=== PATIENT | female | born 2000 | race Caucasian/White ===

== ENCOUNTER 2023-01-23 14:40 | Outpatient (OUT) | payer OTHER, SELFPAY ==
--- NOTE | 2023-01-23 14:58 | US_ITS ---
[address] [address] Patient Name: ROQUE PIERSON MRN: [id number] date: 2000 Sex: F Assigned Patient Location: US Current Patient Location: US Accession/Order Number: [id number] Exam Date: 01/23/2023 14:56 Report Date: 01/23/2023 16:06 At the request of: REKHA JANSEN Procedure: US OB growth EXAMINATION: US OB growth HISTORY: size inconsistent with dates O26.849 COMPARISON: Ultrasound anatomy 12/05/2022 FINDINGS: Heart Rate: 128.0 bpm Number: 1.0 Position: BREECH Amniotic Fluid Volume: 17.0 cm Maximum Vertical Pocket: 5.7 cm BIOMETRY: BPD: 7.7 cm cm; 30 weeks 5 days; >97% HC: 28.0 cmcm; 30 weeks 4 days; 92% AC: 23.8 cm cm; 28 weeks 1 days; 46% FL: 5.3 cm cm; 28 weeks 0 days; 35% EFW: 1236.4 grams; 57% FL/AC: 22.1 FL/BPD: 68.6 HC/AC: 1.2 GESTATIONAL AGE: Age by EDC: 28 weeks 0 days [place] by EDC: 04/17/2023 Age by US: 29 weeks 3 days [place] by US: 04/07/2023 IMPRESSION: 1. Single live intrauterine with growth detailed above. 2. Biparietal diameter is greater than 97th percentile. Electronically authenticated by: JULIUS RICKS Date: 01/23/2023 16:06
== END 2023-01-23 14:41 ==
LOC: LAB 14:46 → US 14:52
PROVIDERS: PCP Obstetrics & Gynecology; Visit Provider Obstetrics & Gynecology
DX: O26.843 Uterine size-date discrepancy, third trimester (principal); Z3A.30 30 weeks gestation of pregnancy
CPT/HCPCS: 76816

== ENCOUNTER 2023-03-20 20:24 | Outpatient (REF) | payer OTHER, SELFPAY | END 2023-03-20 20:25 | disposition home or self-care (01) | LOC: LAB 20:24 | PROVIDERS: PCP Obstetrics & Gynecology; Visit Provider Obstetrics & Gynecology | DX: Z34.93 Encounter for supervision of normal pregnancy, unspecified, third trimester (principal) | CPT/HCPCS: 87081 ==

== ENCOUNTER 2023-04-15 23:33 | Inpatient (IN) | payer OTHER, SELFPAY ==
[2023-04-16] VITALS (89 sets, daily range): BP systolic 86–136; BP diastolic 46–84; PULSE 52–121; RESP 16–18; TEMP 36.6–36.8
[2023-04-16 00:09] LABS: Hematocrit 33.9 % (36.0-48.0); Hemoglobin 11.6 g/dL (12.0-16.0); Mean Corpuscular HGB Conc 34.2 g/dL (29.9-35.2); Mean Corpuscular Hemoglobin 28.3 pg (26.7-34.0); Mean Corpuscular Volume 82.7 fL (81.0-99.0); Mean Platelet Volume 10.7 fL (9.5-13.5); Platelet Count 241 10^3/uL (150-450); Red Cell Distribution Width 12.8 % (11.0-15.0); White Blood Count 10.3 10^3/uL (4.0-11.0)
[2023-04-16 00:23] LABS: Amphetamine Screen Urine NEGATIVE (NEGATIVE); Barbiturates Screen Urine NEGATIVE (NEGATIVE); Benzodiazepines Screen Urine NEGATIVE (NEGATIVE); Buprenorphine Screen Urine NEGATIVE (NEGATIVE); Cannabinoid Screen Urine NEGATIVE (NEGATIVE); Cocaine Screen Urine NEGATIVE (NEGATIVE); Methadone Screen Urine NEGATIVE (NEGATIVE); Methamphetamines Screen Urine NEGATIVE (NEGATIVE); Opiate Screen Urine NEGATIVE (NEGATIVE); Oxycodone Screen Urine NEGATIVE (NEGATIVE); Phencyclidine Screen Urine NEGATIVE (NEGATIVE); Tricyclic Antidepressant Urine NEGATIVE (NEGATIVE)
[2023-04-16] MEDS: OXYTOCIN/0.9 % SODIUM CHLORIDE 10 UNITS/500 ML PLAST..BAG 6 UNIT IV ×2 (01:03→14:51)
[2023-04-16] MEDS: 0.9 % SODIUM CHLORIDE 1,000 ML 125 ML IV ×5 (01:05→15:25)
[2023-04-16] MEDS: ROPIVACAINE HCL/PF 400 MG/200 ML PREMIX 10 MG EPIDURAL (11:18)
[2023-04-16] MEDS: FENTANYL CITRATE/PF 100 MCG/2 ML VIAL EPIDURAL ×2 (11:19→11:20)
[2023-04-16] MEDS: LIDOCAINE HCL 2% PF 100 MG/5 ML VIAL INJ (11:20)
--- NOTE | 2023-04-16 18:25 | PM.OBPRCVD ---
Procedure Intrapartal events: None Induction method: per pitocin protocol Delivery augmentation: rupture of membranes and pitocin Delivery monitor: external FHT and external uterine Route of delivery: Episiotomy Description: right mediolateral Laceration description: perineal - 2nd degree Delivery repair: Vicryl Estimated blood loss (mL): 300 Anesthesia type: Epidural Disposition: floor Delivery date: 04/16/23 Gender: male presentation: vertex Placental delivery description: Spontaneous and Normal Configuration cord description: 3 Vessels
[2023-04-16] MEDS: LIDOCAINE HCL 1% 200 MG/20 ML MDV INJ (19:13)
[2023-04-16] MEDS: GLYCERIN/WITCH HAZEL PADS 1 PAD TOPICAL (21:59)
[2023-04-16] MEDS: IBUPROFEN 600 MG TABLET PO (21:59)
[2023-04-17] VITALS (8 sets, daily range): BP systolic 117–135; BP diastolic 59–72; PULSE 74–131; RESP 14–16; TEMP 36.6–37.1
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
[2023-04-17 05:14] LABS: Basophils Percent Auto 0.2 % (0.2-2.0); Eosinophils Percent Auto 0.3 % (0.9-7.0); Hemoglobin 9.4 g/dL (12.0-16.0); Immature Granulocytes Abs Auto 0.04 10^3/uL (0.00-0.03); Immature Granulocytes Pct Auto 0.3 % (0.0-0.5); Lymphocytes Absolute Auto 1.9 10^3/uL (1.2-3.8); Lymphocytes Percent Auto 14.9 % (20.5-60.0); Mean Corpuscular HGB Conc 32.4 g/dL (29.9-35.2); Mean Corpuscular Hemoglobin 28.1 pg (26.7-34.0); Mean Corpuscular Volume 86.6 fL (81.0-99.0); Mean Platelet Volume 10.5 fL (9.5-13.5); Monocytes Percent Auto 7.9 % (1.7-12.0); Neutrophils Absolute Auto 9.7 10^3/uL (1.4-6.5); Neutrophils Percent Auto 76.4 % (43.0-75.0); Platelet Count 182 10^3/uL (150-450); Red Blood Count 3.35 10^6/uL (4.20-5.40); Red Cell Distribution Width 13.2 % (11.0-15.0); White Blood Count 12.7 10^3/uL (4.0-11.0)
--- NOTE | 2023-04-17 07:06 | PC.NURSE ---
Reported off to Barbra Orlando RN
[2023-04-17] MEDS: IBUPROFEN 600 MG TABLET PO ×2 (09:12→16:44)
[2023-04-17] MEDS: DOCUSATE SODIUM 100 MG CAPSULE PO (09:13)
--- NOTE | 2023-04-17 11:06 | SWNOTE1 ---
SW consulted for medical/financial assistance for pt. SW spoke with nursing prior to going in, SW to make sure pt has adequate resources. Pt lives at home with her boyfriend and they have been together for 3 years. Her boyfriend is not the father of the baby, but the father of the baby is not involved. Pt voiced her boyfriend, Jack, will be the father figure for baby. SW asked pt about her support system. She stated she has 2 friends that just had baby boys a few months ago and she also has 2 step sisters, who are younger, that are supportive. Pt also voiced her grandma is a good support as well as Jack. Pt stated her grandma has spoke with her about post- depression and the signs. Pt did express she will reach out to her support if/when she needs to. Pt's mother is at [facility], she suffered a major stroke back in 2017. Pt did receive a phone call from [facility] yesterday while she was in labor and she will call them back today to get an appointment scheduled. Pt does have everything she needs at home for baby such as crib,car seat, clothing, etc. Pt is attempting breast feeding and baby is latching. Pt and boyfriend do have a car for transportation and have their license. She does not work and will be at home with baby, boyfriend does work to support family. Pt voiced she is going to take baby to Dr. Galaviz as that is her primary care physician. SW and pt spoke about getting her baby on her insurance. SW expressed to pt to call her insurance (number on the back of the card) to make sure baby is added. SW let pt know if she does need assistance to ask SW to come back. SW to look for more resources for pt and bring her back any resources that may be beneficial.
--- NOTE | 2023-04-17 11:39 | SWNOTE1 ---
SW did provide pt with [facility] support groups for new moms and a program that has a visiting nurse for newborns up until 8 weeks.
--- NOTE | 2023-04-17 11:47 | SWNOTE1 ---
Pt was aware of the resources SW spoke with her about in [facility], but did take the paperwork.
--- NOTE | 2023-04-17 12:25 | PC.NURSE ---
1130 REVIEWED TEACHING VIDEOS AND NEED TO CALL AND DECIDE ABOUT BABY FOLLOW UP PHYSICIAN, COAL CAGER IN TO ASSESS
--- NOTE | 2023-04-17 13:08 | P.OBPN_ITS ---
OB - PN: Subj Subjective Patient comments: no complaints [place] status: doing well Exam Constitutional Vital Signs, click to edit/add: Last Vital Signs Temp 97.8 F 04/17/23 08:35 Pulse 74 04/17/23 09:00 Resp 14 04/17/23 08:35 BP 134/72 04/17/23 09:00 O2 Del Method Room Air 04/16/23 13:58 Documenting provider has reviewed patient's vital signs: yes Common normals: no apparent distress Respiratory Common normals: normal respiratory effort and clear to auscultation bilaterally Cardio Common normals: regular rate and regular rhythm GI Common normals: Normal to inspection, nondistended, normoactive bowel sounds present Common normals: no CVA tenderness Extremity Common normals: normal to inspection, no clubbing, cyanosis or edema and no calf tenderness Results Labs Labs: Short CBC 04/17/23 Range/Units 05:00 WBC 12.7 H (4.0-11.0) 10^3/uL Hgb 9.4 L (12.0-16.0) g/dL Hct 29.0 L (36.0-48.0) % Plt Count 182 (150-450) 10^3/uL OB - PN: A/P Plan - Vaginal Delivery day: 1 Plan: routine care Time Spent with Patient Time: Total time spent is greater than 50% in coordination of care (as documented) at patient's floor/unit and/or counseling patient: Total time spent with greater than 50% in coordination of care (as documented) at patient's floor/unit and/or counseling patient: less than 15 minutes
--- NOTE | 2023-04-17 16:59 | PC.NURSE ---
reviewed teaching videos with pt who has watched them all and has no questions, reviewed need to call pediatric provider for visit (has chosen DR Galaviz), reviewed teaching folder and contents of all and need to review same overnight, also discussed feeding plan with baby regarding beginning to pump after 24 hours, increasing skin to skin time and seeing business sales consultant tomorrow
[2023-04-18 00:30] VITALS: BP 113/71; PULSE 70
--- NOTE | 2023-04-18 02:10 | PC.NURSE ---
Pt calls out for nurse. Pt is tearful upon RN entering room; states she feels like her is still hungry after receiving pumped breast milk and won't quit crying. RN tells pt has only lost 4.5% of weight which is within normal range. RN then educates on other reasons for infant fussiness (diaper change, upset stomach, need to burp, etc). Pt still requests supplemental formula at this time.
--- NOTE | 2023-04-18 07:40 | W.PC.ACHO ---
Registration Status: ADM IN Primary Language: [place] Preferred Language: [place] Active Medications Generic Name Dose Route Start Last Admin Trade Name Freq PRN Reason Stop Dose Admin Acetaminophen 650 mg 04/16/23 18:20 Acetaminophen 325 Mg Tablet PO Q6H PRN Mild Pain Al Hydroxide/Mg Hydroxide 2,400 mg 04/16/23 18:20 Magnesium Hydroxide 2,400 Mg/10 Ml Oral.Susp PO Q6H PRN Dyspepsia Benzocaine/Menthol 1 applic 04/16/23 18:20 04/16/23 22:00 Benzocaine/Menthol 85 Gram Bottle TOPICAL 1 applic Q2H PRN Administration Pain Diphtheria/Pertussis/Tetanus Vacc 0.5 ml 04/18/23 09:00 Adacel Diph,Pertuss(Acell),Tet Vac/Pf 0.5 Ml Adult Syringe IM 04/18/23 09:01 .ONCE ONE Docusate Sodium 100 mg 04/17/23 09:00 04/17/23 09:13 Docusate Sodium 100 Mg Capsule PO 100 mg BID KADY Administration Sodium Chloride 1,000 mls @ 125 mls/hr 04/16/23 07:45 04/16/23 15:25 Sodium Chloride 0.9% 1,000 Ml IV 125 mls/hr Q8H KADY Administration Ibuprofen 600 mg 04/16/23 18:20 04/17/23 16:44 Ibuprofen 600 Mg Tablet PO 600 mg Q6H PRN Administration Moderate Pain Measles/Mumps/Rubella Vaccine Live 0.5 ml 04/18/23 09:00 Measles,Mumps,Rubella Vacc/Pf 0.5 Ml Vial SQ 04/18/23 09:01 .ONCE ONE Ondansetron HCl 4 mg 04/15/23 23:36 Ondansetron 4 Mg Rapdis Tablet SL Q6H PRN Nausea And Vomiting Ondansetron HCl 4 mg 04/15/23 23:36 Ondansetron Pf 4 Mg/2 Ml Vial IV Q6H PRN Nausea And Vomiting Senna 17.2 mg 04/16/23 20:00 Sennosides 8.6 Mg Tablet PO QHS PRN Constipation Simethicone 80 mg 04/16/23 18:20 Simethicone 80 Mg Tab.Chew PO QID PRN Abdominal Distention Temazepam 15 mg 04/16/23 18:20 Temazepam 15 Mg Capsule PO QHS PRN Sleep Witch Mara/Glycerin 1 pad 04/16/23 18:20 04/16/23 21:59 Glycerin/Witch Mara Pads TOPICAL 1 pad Q2H PRN Administration Pain
[2023-04-18 09:32] VITALS: BP 133/67; PULSE 82
[2023-04-18 09:33] VITALS: TEMP 36.9
[2023-04-18] MEDS: IBUPROFEN 600 MG TABLET PO (09:33)
[2023-04-18] MEDS: DOCUSATE SODIUM 100 MG CAPSULE PO (09:34)
--- NOTE | 2023-04-18 10:51 | PM.OBPN ---
OB - PN: Subj Subjective Patient comments: no complaints [place] status: doing well Exam Constitutional Vital Signs, click to edit/add: Last Vital Signs Temp 98.4 F 04/18/23 09:33 Pulse 82 04/18/23 09:32 Resp 16 04/17/23 16:51 BP 133/67 04/18/23 09:32 O2 Del Method Room Air 04/16/23 13:58 Documenting provider has reviewed patient's vital signs: yes Common normals: no apparent distress Respiratory Common normals: normal respiratory effort and clear to auscultation bilaterally Cardio Common normals: regular rate and regular rhythm GI Common normals: Normal to inspection, nondistended, normoactive bowel sounds present Extremity Common normals: no clubbing, cyanosis or edema and no calf tenderness OB - PN: A/P Plan - Vaginal Delivery day: 2 Plan: routine care, discharge home and follow up 6 weeks Time Spent with Patient Time: Total time spent is greater than 50% in coordination of care (as documented) at patient's floor/unit and/or counseling patient: Total time spent with greater than 50% in coordination of care (as documented) at patient's floor/unit and/or counseling patient: less than 15 minutes
[2023-04-18 11:48] VITALS: RESP 16; TEMP 36.7
[2023-04-18] MEDS: ADACEL DIPH,PERTUSS(ACELL),TET VAC/PF 0.5 ML ADULT SYRINGE IM (16:42)
== END 2023-04-18 18:15 | disposition home or self-care (01) | DRG 560 ==
PROVIDERS: Admitting Provider Obstetrics & Gynecology; PCP Obstetrics & Gynecology; Visit Provider Obstetrics & Gynecology
DX: O70.1 Second degree perineal laceration during delivery (principal); Z3A.00 Weeks of gestation of pregnancy not specified; Z37.0 Single live birth; Z79.899 Other long term (current) drug therapy; Z98.890 Other specified postprocedural states; Z83.3 Family history of diabetes mellitus
CPT/HCPCS: 36415; 59050; 59410; 80307; 85025; 85027; 86850; 86900; 86901; 90471; 90715; 96365; 96366; 96376

== ENCOUNTER 2023-04-21 08:20 | Outpatient (OUT) | payer OTHER, SELFPAY ==
[2023-04-21 15:14] VITALS: BP 120/73; PULSE 74; RESP 16; TEMP 36.9; O2SAT 96
--- NOTE | 2023-04-21 15:19 | PC.NURSE ---
Pt vague historian for infant feeding interval, amounts and for outputs. well cared for appearance, clean and appropriately dressed. [facility] has very limited support system. Mother in [facility] after severe stroke at 37, father passed, FOB not involved. States her current boyfriend is very supportive and helpful with the baby. Helps with feedings and diaper changes. Pt states I feel like I am depressed denies feeling same during . Not on medications at this time. Denies thoughts or actions of self harm, or suicidal ideas. Denies thought of harming infant. Offered for pt to talk with Social service department, pt declined. States I will be ok, just stressful at times. This entry writer attempts to call Dr Crockett office 3 times [phone], [phone] and message left at [phone] with Dionne WHITAKER for Dr Crockett to make contact with pt and schedule her to be seen. Pt advised to call office for follow up this week. [facility] will do so. Given sample routine for exclusively pumping for first 12 weeks. States will follow to maintain her milk supply. Aware to call for questions or concerns. Verbalized understanding of review, recommendations and contact/follow up
== END 2023-04-21 10:00 | disposition home or self-care (01) ==
PROVIDERS: PCP Family Medicine; Visit Provider Obstetrics & Gynecology
DX: Z39.2 Encounter for routine postpartum follow-up (principal)

== ENCOUNTER 2023-09-16 12:17 | Outpatient (OUT) | payer OTHER, SELFPAY ==
[2023-09-16 13:25] LABS: HCG Quantitative 130 mIU/mL
== END 2023-09-16 12:18 | disposition home or self-care (01) ==
LOC: LAB 12:18
PROVIDERS: PCP Family Medicine; Visit Provider Obstetrics & Gynecology
DX: N92.6 Irregular menstruation, unspecified (principal)
CPT/HCPCS: 36415; 84702

== ENCOUNTER 2023-09-19 11:50 | Outpatient (RCR) | payer OTHER, SELFPAY ==
[2023-09-19 12:27] LABS: HCG Quantitative 463 mIU/mL
== END 2023-09-24 17:26 | disposition home or self-care (01) ==
LOC: LAB 11:50
PROVIDERS: PCP Family Medicine; Visit Provider Obstetrics & Gynecology
DX: N92.6 Irregular menstruation, unspecified (principal)
CPT/HCPCS: 36415; 84702

== ENCOUNTER 2023-10-16 12:07 | Outpatient (OUT) | payer OTHER, SELFPAY ==
--- NOTE | 2023-10-16 12:10 | US_ITS ---
[address] [address] Patient Name: ROQUE PIERSON MRN: [id number] date: 2000 Sex: F Assigned Patient Location: [facility] Current Patient Location: [facility] Accession/Order Number: [id number] Exam Date: 10/16/2023 12:17 Report Date: 10/16/2023 14:43 At the request of: REKHA JANSEN Procedure: US OB transvaginal EXAMINATION: US OB transvaginal HISTORY: MISSED MENSES COMPARISON: No relevant comparison available. FINDINGS: GESTATIONAL SAC: Single gestational sac with 2 amniotic sacs YOLK SAC: Present x2 POLE: Present x2 CARDIAC: Present x2 UTERUS: Normal size and appearance. OVARIES: Right: Normal. Left: Not seen. CERVIX: 4.9 cm in length and closed. CUL-DE-SAC: Normal. OTHER: None. AGE BY LMP: 8 weeks 3 days [place] BY LMP: 05/24/2024 AGE BY US CRL: 8 weeks 1 day [place] BY US CRL: 05/26/2024 US/US OB transvaginal IMPRESSION: 1. Monochorionic diamniotic twin 8 weeks 1 day by today's ultrasound. Electronically authenticated by: JULIUS RICKS Date: 10/16/2023 14:43
== END 2023-10-16 12:08 | disposition home or self-care (01) ==
LOC: NOMS 12:08
PROVIDERS: PCP Family Medicine; Visit Provider Obstetrics & Gynecology
DX: O30.031 Twin pregnancy, monochorionic/diamniotic, first trimester (principal); Z3A.08 8 weeks gestation of pregnancy; N92.6 Irregular menstruation, unspecified
CPT/HCPCS: 76817

== ENCOUNTER 2023-10-30 10:11 | Outpatient (OUT) | payer OTHER, SELFPAY ==
--- OUTSIDE RECORDS SUMMARY | 2023-10-30 10:28 | XMS_ITS | CCD ---
Author Name Unknown Address [facility] [address] [place] [address] Organization [facility] Care Team Providers Care French Edge Operator Name Role Phone LIMANOE Unavailable Unavailable Delfin Urbano MD Primary Care Provider Delfin Urbano MD Primary Care Provider [phone] Delfin Urbano MD Primary Care Provider [phone] Delfin Urbano Primary Care Physician Delfin Urbano MD Primary Care Provider CHRISTY ., NOE Consulting Unavailable REQUEST, DR GALDINO LISTED Primary Care Unavaila ble CHRISTY ., NOE Attending Unavailable CHRISTY ., NOE Admitting Unavailable JUSTYNA ., DR DA SILVA Consulting Unavailable HOY ., DR BOGGS Primary Care Unavailable JUSTYNA ., DR DA SILVA Attending Unavailable JUSTYNA ., DR DA SILVA Admitting Unavailable CHRISTY ., NOE Consulting Unavailable YOLIE ., DR BOGGS Primary Care Unavailable CHRISTY ., NOE Attending Unavailable CHRISTY ., NOE Admitting Unavailable JUSTYNA ., DR DA SILVA Consulting Unavailable HOY ., DR BOGGS Primary Care Unavailable JUSTYNA ., DR DA SILVA Attending Unavailable JUSTYNA ., DR DA SILVA Admitting Unavailable HOY ., DR BOGGS Primary Care Unavailable JUSTYNA ., DR DA SILVA Attending Unavailable JUSTYNA ., DR DA SILVA Admitting Unavailable HOY ., DR BOGGS Primary Care Unavailable CHRISTY ., NOE Attending Unavailable CHRISTY ., NOE Admitting Unavailable JUSTYNA ., DR DA SILVA Consulting Unavailable HOY ., DR BOGGS Primary Care Unavailable JUSTYNA ., DR DA SILVA Attending Unavailable JUSTYNA ., DR DA SILVA Admitting Unavailable HOY ., DR BOGGS Consulting Unavailable HOY ., DR BOGGS Primary Care Unavailable HOY ., DR BOGGS Attending Unavailable HOY ., DR BOGGS Admitting Unavailable LAURA GONZALEZ Consulting Unavailable HOY ., DR BOGGS Primary Care Unavailable LAURA GONZALEZ Attending Unavailable LAURA GONZALEZ Admitting Unavailable JUSTYNA ., DR DA SILVA Consulting Unavailable HOY ., DR BOGGS Primary Care Unavailable JUSTYNA ., DR DA SILVA Attending Unavailable JUSTYNA ., DR DA SILVA Admitting Unavailable ALFRED BERGERON Unavailable HOY ., DR BOGGS Primary Care Unavailable JUSTYNA ., DR DA SILVA Attending Unavailable JUSTYNA ., DR DA SILVA Admitting Unavailable JUSTYNA ., DR DA SILVA Consulting Unavailable NGUYEN CHA Attending Unavailable HOY, DELFIN M Primary Care Unavailable MORGAN FALK Attending Unavailable HOY, DELFIN M Primary Care Unavailable TYRON GUEVARA Attending Unavailable HOY, DELFIN M Primary Care Unavailable HOY, DELFIN M Primary Care Unavailable CLAUDINE FLORES Attending Unavailable HOY, DELFIN M Primary Care Unavailable SUSU DEL RIO Attending Unavailable TYRON GUEVARA Attending Unavailable HOY, DELFIN M Primary Care Unavailable MORGAN FALK Attending Unavailable HOY, DELFIN M Primary Care Unavailable TYRON GUEVARA Referring Unavailable TYRON GUEVARA Unavailable HOY, DELFIN M Primary Care Unavailable NOE HARRISON Referring Unavailable HOY, DELFIN M Primary Care Unavailable HOY, DELFIN M Primary Care Unavailable NICK, TYRON Kellogg Attending Unavailable ANDREA MITCHELL Attending Unavailable HOY, DELFIN M Primary Care Unavailable MORGAN FALK Attending Unavailable HOY, DELFIN M Primary Care Unavailable HOY, DELFIN M Primary Care Unavailable Shawn Wilson Attending Unavailable Shawn Wilson Admitting Unavailable Kei Moore Attending Unavailable Alfredito Brennan Attending Unavailable Coleman Ludwig Attending Unavailable DO Sissy Shah Attending Unavailable Fercho Jaime Attending Unavailable DO Sissy Shah Attending Unavailable JULIUS CROCKETT Attending Unavailable Medications Current Medications Medication Drug Class(es) Dates Sig (Normalized) Sig (Original) Amoxicillin (4 sources) Penicillin-class Antibacterial Start: 11-25-2022 amoxicillin 500 mg, Refills(s) 0 Start Date: 11/25/22 Status: Ordered amoxicillin 875 mg / clavulanate 125 mg oral tablet (2 sources) Penicillin-class Antibacterial Start: 09-26-2022 End: 10-01-2022 take 1 tablet by mouth twice daily amoxicillin-clavul anate (AUGMENTIN) 875-125 MG per tablet Take 1 tablet by mouth 2 times daily for 5 days 10 tablet 0 09/26/2022 09/30/2022 Discontinued (LIST CLEANUP) brompheniramine maleate 0.4 mg/ml / dextromethorphan hydrobromide 2 mg/ml / pseudoephedrine hydrochloride 6 mg/ml oral solution (1 source) alpha-Adrenergic Agonist, Uncompetitive U-kdgijj-O-aspartat e Receptor Antagonist, Sigma-1 Agonist Start: 09-08-2023 End: 09-15-2023 take 10 mL by mouth four times daily for cough and congestion Bromfed DM oral syrup 10 mL, Oral, QID for cough and congestion for 7 day(s), 280 mL, Refill(s) 0, [facility], 175, cm, 09/08/23 11:11:00 EST, Height/Length Dosing, 79.5, kg, 09/08/23 11:11:00 EST, Weight Dosing Start Date: 09/08/23 Stop Date: 09/15/23 Status: Ordered cetirizine hydrochloride 5 mg oral tablet (3 sources) Histamine-1 Receptor Antagonist Start: 04-25-2016 take 5 mg by mouth once daily Zyrtec 5 mg, Oral, Daily, Refills(s) 0 Start Date: 04/25/16 Status: Ordered famotidine 20 mg oral tablet (3 sources) Histamine-2 Receptor Antagonist Start: 07-12-2022 take 1 tablet by mouth once daily Pepcid 20 mg Tab 20 mg = 1 tab(s), Oral, Daily, # 14 tab(s), Refills(s) 0 Start Date: 07/12/22 Status: Ordered fluconazole 50 mg oral tablet (1 source) Azole Antifungal Start: 11-25-2022 End: 12-02-2022 take 1 tablet by mouth once daily fluconazole 50 mg oral tablet 50 mg = 1 tab(s), Oral, Daily, X 7 day(s), # 7 tab(s), Refills(s) 0 Start Date: 11/25/22 Stop Date: 12/02/22 Status: Ordered fluticasone propionate 0.05 mg/actuat metered dose nasal spray (3 sources) Corticosteroid Start: 04-25-2016 Childrens Flonase 50 mcg/inh nasal spray 1 spray(s), Nasal, Daily, Refill(s) 0 Start Date: 04/25/16 Status: Ordered metoclopramide 10 mg oral tablet (7 sources) Dopamine-2 Receptor Antagonist Start: 09-04-2022 End: 09-30-2022 take 1 tablet by mouth every six hours Reglan 10 mg Tab 10 mg = 1 tab(s), Oral, q6hr, # 14 tab(s), Refills(s) 0, Pharmacy: [id number], 173, cm, 09/08/22 1:24:00 EST, Height/Length Dosing, 72.1, kg, 09/08/22 1:24:00 EST, Weight Dosing Start Date: 09/08/22 Status: Ordered ondansetron 4 mg disintegrating oral tablet (18 sources) Serotonin-3 Receptor Antagonist Start: 09-30-2022 take 1 tablet by mouth every eight hours as needed for nausea ondansetron (ZOFRAN-ODT) 4 MG disintegrating tablet Take 1 tablet by mouth every 8 hours as needed for Nausea or Vomiting 10 tablet 0 09/30/2022 Active Start: 09-30-2022 End: 09-30-2022 ondansetron (ZOFRAN-ODT) disintegrating tablet 4 mg Start: 09-04-2022 End: 09-04-2022 ondansetron (ZOFRAN) injecti on 4 mg Start: 09-04-2022 take 1 tablet by fernando th every six hours as needed for nausea ondansetron (ZOFRAN-ODT) 4 MG disintegrating tablet Take 1 tablet by mouth every 6 hours as needed for Nausea or Vomiting 15 tablet 0 09/04/2022 Active Start: 08-26-2022 take 1 tablet by fernando th every six hours as needed for nausea Zofran 4 mg Tab 4 mg = 1 tab(s), Oral, q6hr, PRN Nausea, Take one tab by mouth every six hours as needed for nausea, # 10 tab(s), Refills(s) 0 Start Date: 08/26/22 Status: Ordered Start: 07-12-2022 take 1 tablet by fernando th every eight hours as needed ondansetron (ZOFRAN) 4 MG tablet Take 1 tablet by mouth every 8 hours as needed 0 07/12/2022 Active Start: 04-18-2022 End: 04-18-2022 ondansetron (ZOFRAN) injecti on 4 mg Start: 03-21-2022 End: 04-18-2022 take 1 tablet by mouth every four hours as needed for nausea ondansetron (ZOFRAN ODT) 4 MG disintegrating tablet Take 1 tablet by mouth every 4 hours as needed for Nausea or Vomiting 15 tablet 0 03/21/2022 04/18/2022 Discontinued (LIST CLEANUP) Start: 02-08-2022 End: 02-08-2022 ondansetron (ZOFRAN) injecti on 4 mg Start: 02-08-2022 End: 02-13-2022 take 1 tablet by mouth every eight hours as needed for nausea ondansetron (ZOFRAN) 4 MG tablet Take 1 tablet by mouth every 8 hours as needed for Nausea or Vomiting 12 tablet 0 02/08/2022 02/13/2022 Active penicillin v potassium 500 mg oral tablet (1 source) Start: 02-27-2022 End: 03-09-2022 take 1 tablet by mouth four times daily penicillin v potassium (VEETID) 500 MG tablet Take 1 tablet by mouth 4 times daily for 10 days 40 tablet 0 02/27/2022 03/09/2022 Active Vit-Fe Fumarate-FA ( VITAMINS PO) (4 sources) Vit-Fe Fumarate-FA ( VITAMINS PO) Take 2 gums by mouth daily 0 Active promethazine hydrochloride 12.5 mg oral tablet (10 sources) Phenothiazine Start: 09-02-2022 End: 09-30-2022 take 1 tablet by mouth every eight hours as needed for nausea promethazine 12.5 mg oral tablet 12.5 mg = 1 tab(s), Oral, q8hr, PRN as needed for nausea/vomiting, # 12 tab(s), Refills(s) 0 Start Date: 09/02/22 Status: Ordered Start: 08-10-2022 End: 08-17-2022 take 1 tablet by mouth every six hours as needed for nausea promethazine (PHENERGAN) 25 MG tablet Take 1 tablet by mouth every 6 hours as needed for Nausea 20 tablet 0 08/10/2022 08/17/2022 Active Start: 08-10-2022 End: 08-10-2022 take 1 dose by mouth once 25 mg, Oral, ONCE, 1 dose, O n 08/10/22 at 0215 Send home with pt take 1 tablet by fernando th every six hours as needed for nausea promethazine (PHENERGAN) 12.5 MG tablet Take 12.5 mg by mouth every 6 hours as needed for Nausea 0 Active sucralfate 1000 mg oral tablet (1 source) Aluminum Complex Start: 07-12-2022 End: 07-19-2022 take 1 tablet by mouth four times daily Carafate 1 gram Tab 1 gm = 1 tab(s), Oral, QID, X 7 day(s), # 28 tab(s), Refills(s) 0 Start Date: 07/12/22 Stop Date: 07/19/22 Status: Ordered Zofran ODT 4 mg Tab-Dis (5 sources) Start: 08-29-2022 take 1 tablet by mouth every six hours as needed for nausea Zofran ODT 4 mg Tab-Dis 4 mg = 1 tab(s), Oral, q6hr, PRN Nausea/Vomiting, # 12 tab(s), Refills(s) 0 Start Date: 08/29/22 Status: Ordered Completed/Discontinued Medications Medication Drug Class(es) Dates Sig (Normalized) Sig (Original) acetaminophen 325 mg / oxyCODONE hydrochloride 5 mg oral tablet (1 source) Opioid Agonist Start: 07-01-2022 End: 07-01-2022 oxyCODONE-acetamin ophen (PERCOCET) 5-325 MG per tablet 1 tablet Start: 07-01-2022 End: 07-01-2022 oxyCODONE-acetaminophen (PER COCET) 5-325 MG per tablet 1 tablet benzocaine 0.2 mg/mg oral gel (1 source) Standardized Chemical Allergen Start: 02-27-2022 End: 02-27-2022 benzocaine (ORAJEL) 20 % mucosal gel 1 ml diphenhydrAMINE hydrochloride 50 mg/ml cartridge (1 source) Histamine-1 Receptor Antagonist Start: 08-24-2022 End: 08-24-2022 diphenhydrAMINE (BENADRYL) injection 25 mg famotidine (PEPCID) 20 mg in sodium chloride (PF) 10 mL injection (1 source) Start: 02-08-2022 End: 02-08-2022 famotidine (PEPCID) 20 mg in sodium chloride (PF) 10 mL injection 1 ml ketorolac tromethamine 30 mg/ml cartridge (2 sources) Nonsteroidal Anti-inflammatory Drug, Cyclooxygenase Inhibitor Start: 04-18-2022 End: 04-18-2022 ketorolac (TORADOL) injection 30 mg Start: 02-08-2022 End: 02-08-2022 ketorolac (TORADOL) injectio n 15 mg lidocaine hydrochloride 20 mg/ml mucous membrane topical solution (1 source) Antiarrhythmic, Amide Local Anesthetic Start: 02-27-2022 End: 02-27-2022 lidocaine viscous hcl (XYLOCAINE) 2 % solution 15 mL naproxen 500 mg oral tablet (2 sources) Nonsteroidal Anti-inflammatory Drug Start: 02-27-2022 End: 04-18-2022 take 1 tablet by mouth twice daily naproxen (NAPROSYN) 500 MG tablet Take 1 tablet by mouth 2 times daily 30 tablet 0 02/27/2022 04/18/2022 Discontinued (LIST CLEANUP) 50 ml sodium chloride 9 mg/ml injection (3 sources) Start: 09-04-2022 End: 09-04-2022 0.9 % sodium chloride bolus Start: 08-24-2022 End: 08-24-2022 0.9 % sodium chloride bolus Start: 02-08-2022 End: 02-08-2022 0.9 % sodium chloride bolus Problems Active Problems Problem Classification Problem Date Documented Date Episodic/Chronic Chronic obstructive pulmonary disease and bronchiectasis (1 source) Bronchitis; Translations: [Bronchitis, not specified as acute or chronic] Onset: 09-08-2023 Episodic Genitourinary symptoms and ill-defined conditions (1 source) Bacteriuria; Translations: [Bacteriuria] Onset: 03-23-2023 Episodic Headache; including migraine (1 source) Headache; Translations: [Headache, unspecified] Onset: 06-05-2023 Episodic Hemorrhoids (1 source) Residual hemorrhoidal skin tags; Translations: [Residual hemorrhoidal skin tags] Onset: 04-05-2023 Episodic Immunizations and screening for infectious disease (2 sources) Encounter for screening for human papillomavirus (HPV); Translations: [Contact with and (suspected) exposure to infections with a predominantly sexual mode of transmission] Onset: 11-15-2022 Episodic Menstrual disorders (8 sources) Irregular menstruation, unspecified; Translations: [Excessive and frequent menstruation with irregular cycle] Onset: 02-15-2022 Chronic Nausea and vomiting (7 sources) Nausea and vomiting; Translations: [Nausea with vomiting, unspecified] Onset: 08-29-2022 Episodic Other complications of (1 source) Morning sickness; Translations: [Mild hyperemesis gravidarum] Episodic Other complications of (1 source) Abdominal pain in ; Translations: [Other specified related conditions, first trimester] Episodic Other complications of (1 source) Hyperemesis gravidarum; Translations: [Mild hyperemesis gravidarum] Episodic Other complications of (1 source) Mild hyperemesis gravidarum; Translations: [Mild hyperemesis gravidarum] Onset: 08-26-2022 Episodic Other complications of (1 source) Vomiting of ; Translations: [Vomiting of , unspecified] Episodic Other female genital disorders (1 source) Other specified noninflammatory disorders of vagina; Translations: [OTH SPEC NONINFLAMMATORY D/O VAGINA] Onset: 11-15-2022 Episodic Other and delivery including normal (6 sources) Normal ; Translations: [Encounter for supervision of normal , unspecified, unspecified trimester] Onset: 08-29-2022 Episodic Other screening for suspected conditions (not mental disorders or infectious disease) (16 sources) test negative; Translations: [Encounter for test, result negative] Onset: 04-18-2022 Episodic Residual codes; unclassified (1 source) 10 weeks gestation of ; Translations: [10 WEEKS GESTATION OF ] Onset: 09-25-2022 Episodic Skin and subcutaneous tissue infections (1 source) Cellulitis of right upper limb; Translations: [Cellulitis of right upper limb] Episodic Unclassified (1 source) Other specified diseases and conditions complicating ; Translations: [Other specified diseases and conditions complicating ] Onset: 03-23-2023 Past or Other Problems Problem Classification Problem Date Documented Da te Episodic/Chronic Abdominal pain (4 sources) Finding of sensation of abdomen; Translations: [Unspecified abdominal pain] Onset: 07-12-2022 Episodic Allergic reactions (1 source) Dermatitis, unspecified; Translations: [Dermatitis, unspecified] Onset: 07-23-2022 Episodic Disorders of teeth and jaw (5 sources) Toothache; Translations: [Other specified disorders of teeth and supporting structures] Onset: 07-01-2022 Episodic Fluid and electrolyte disorders (3 sources) Dehydration; Translations: [Dehydration] Onset: 09-04-2022 Episodic Other complications of (1 source) Endocrine, nutritional and metabolic diseases complicating , unspecified trimester; Translations: [Endocrine, nutritional and metabolic diseases complicating , unspecified trimester] Onset: 09-04-2022 Episodic Other complications of (1 source) Mild hyperemesis gravidarum; Translations: [Mild hyperemesis gravidarum] Onset: 08-24-2022 Episodic Other complications of (1 source) Other specified related conditions, first trimester; Translations: [Other specified related conditions, first trimester] Onset: 08-10-2022 Episodic Other complications of (1 source) Vomiting of , unspecified; Translations: [Vomiting of , unspecified] Onset: 08-10-2022 Episodic Other connective tissue disease (2 sources) Pain in upper limb; Translations: [Arm Pain] Onset: 09-26-2022 Episodic Other infections (1 source) Enterobiasis; Translations: [Enterobiasis] Onset: 06-02-2017 Episodic Unclassified (4 sources) Onset: 11-25-2022 Resolved: 06-25-2023 11-25-2022 Results Test Name Value Interpretation Reference Range Facility Auto Diffon 06-05-2023 Basophils/100 WBC (Bld) 0.7 % Normal 0.0-2.0 [facility] Comment on above: Order Comment: Order Added by Discern Expert. Result Comment: Ian ection date/time has been modified to: 16:41:00. Previous collection date/time: 16:48:00. Performed By: #### 2 [id number], [id number], [id number], [id number] ####[facility] [address] [place] [address] Basophils/Leukocytes Auto (Bld) [Pure # fraction] 0.0 E9/L Normal 0.0-0.2 [facility] Comment on above: Order Comment: Order Added by Discern Expert. Result Comment: Ian ection date/time has been modified to: 16:41:00. Previous collection date/time: 16:48:00. Performed By: #### 2 [id number], [id number], [id number], [id number] ####[address] [place] [address] Eosinophils/100 WBC (Bld) 1.0 % Normal 0.0-8.0 [facility] Comment on above: Order Comment: Order Added by Discern Expert. Result Comment: Ian ection date/time has been modified to: 16:41:00. Previous collection date/time: 16:48:00. Performed By: #### 2 [id number], [id number], [id number], [id number] ####[address] [place] [address] Eosinophils/Leukocyte s Auto (Bld) [Pure # fraction] 0.1 E9/L Normal 0.0-0.5 [facility] Comment on above: Order Comment: Order Added by Discern Expert. Result Comment: Ian ection date/time has been modified to: 16:41:00. Previous collection date/time: 16:48:00. Performed By: #### 2 [id number], [id number], [id number], [id number] ####[address] [place] [address] Lymphocytes/100 WBC (Bld) 19.4 % Normal 14.0-50.0 [facility] Comment on above: Order Comment: Order Added by Discern Expert. Result Comment: Ian ection date/time has been modified to: 16:41:00. Previous collection date/time: 16:48:00. Performed By: #### 2 [id number], [id number], [id number], [id number] ####[facility] [address] [place] [address] Lymphocytes/Leukocyte s Auto (Bld) [Pure # fraction] 1.2 E9/L Normal 1.0-4.0 [facility] Comment on above: Order Comment: Order Added by Discern Expert. Result Comment: Ian ection date/time has been modified to: 16:41:00. Previous collection date/time: 16:48:00. Performed By: #### 2 [id number], [id number], [id number], [id number] ####[address] [place] [address] Monocytes/100 WBC (Bld) 8.8 % Normal 4.0-14.0 [facility] Comment on above: Order Comment: Order Added by Discern Expert. Result Comment: Ian ection date/time has been modified to: 16:41:00. Previous collection date/time: 16:48:00. Performed By: #### 2 [id number], [id number], [id number], [id number] ####[address] [place] [address] Monocytes/Leukocytes Auto (Bld) [Pure # fraction] 0.5 E9/L Normal 0.2-1.0 [facility] Comment on above: Order Comment: Order Added by Discern Expert. Result Comment: Ian ection date/time has been modified to: 16:41:00. Previous collection date/time: 16:48:00. Performed By: #### 2 [id number], [id number], [id number], [id number] ####[address] [place] [address] Neutrophils/100 WBC (Bld) 70.1 % Normal 36.0-75.0 [facility] Comment on above: Order Comment: Order Added by Discern Expert. Result Comment: Ian ection date/time has been modified to: 16:41:00. Previous collection date/time: 16:48:00. Performed By: #### 2 [id number], [id number], 5133430, [id number] ####[facility] [address] [place] [address] Neutrophils/Leukocyte s Auto (Bld) [Pure # fraction] 4.2 E9/L Normal 2.0-7.5 [facility] Comment on above: Order Comment: Order Added by Discern Expert. Result Comment: Ian ection date/time has been modified to: 16:41:00. Previous collection date/time: 16:48:00. Performed By: #### 2 952197, [id number], 0570225, [id number] ####[facility] [address] [place] [address] BMPon 06-05-2023 Creatinine [Mass/Vol] 0.7 mg/dL Normal 0.5-1.3 [facility] Comment on above: Performed By: #### 2 [id number], [id number], 0367777, [id number] ####[facility] [address] [place] [address] Urea nitrogen [Mass/Vol] 5 mg/dL Normal 5-21 [facility] Comment on above: Performed By: #### 2 567394, [id number], 5952762, [id number] ####[facility] [address] [place] [address] Urea nitrogen/Creatinine [Mass ratio] 7 No Units Low 10-20 [facility] Comment on above: Performed By: #### 2 857164, [id number], 8310111, [id number] ####[facility] [address] [place] [address] Anion gap [Moles/Vol] 9 mmol/L Normal 6-16 [facility] Comment on above: Performed By: #### 2 851801, [id number], 7472154, [id number] ####[facility] [address] [place] [address] Calcium [Mass/Vol] 9.3 mg/dL Normal 8.9-11.1 [facility] Comment on above: Performed By: #### 2 888031, [id number], 0476055, 8709698 ####[facility] [address] [place] [address] Chloride [Moles/Vol] 110 mmol/L Normal 101-111 [facility] Comment on above: Performed By: #### 2 922319, [id number], 9120463, [id number] ####[facility] [address] [place] [address] CO2 [Moles/Vol] 26 mmol/L Normal 21-31 [facility] Comment on above: Performed By: #### 2 679535, [id number], 1457504, [id number] ####[facility] [address] [place] [address] Glucose [Mass/Vol] 106 mg/dL Normal 55-199 [facility] Comment on above: Result Comment: If t his glucose result represents a fasting glucose, interpretation should refer to the following reference range: 55-99 mg/dL Performed By: #### 2 042414, [id number], 5951487, [id number] ####[facility] [address] [place] [address] Potassium [Moles/Vol] 3.9 mmol/L Normal 3.5-5.3 [facility] Comment on above: Performed By: #### 2 002607, [id number], [id number], 6502928 ####[facility] [address] [facility] [place] [address] Sodium [Moles/Vol] 141 mmol/L Normal 135-145 [facility] Comment on above: Performed By: #### 2 550743, [id number], 9601059, 0568225 ####[facility] [address] [place] [address] CBC w/ Auto Diffon 3 Erythrocyte distribution width (RBC) [Ratio] 13.9 % Normal 10.9-14.2 [facility] Comment on above: Result Comment: Ian ection date/time has been modified to: 16:41:00. Previous collection date/time: 16:48:00. Performed By: #### 2 639505, 93007589, 4925610, [id number] ####[facility] [address] [place] [address] Hematocrit (Bld) [Volume fraction] 38.4 % Normal 34.0-46.0 [facility] Comment on above: Result Comment: Ian ection date/time has been modified to: 16:41:00. Previous collection date/time: 16:48:00. Performed By: #### 2 286595, 13975824, 4289455, 9210016 ####[facility] [address] [place] [address] Hemoglobin (Bld) [Mass/Vol] 12.8 g/dL Normal 12.0-16.0 [facility] Comment on above: Result Comment: Ian ection date/time has been modified to: 16:41:00. Previous collection date/time: 16:48:00. Performed By: #### 2 715553, 97030303, 1406045, 9501637 ####[facility] [address] [place] [address] MCH (RBC) [Entitic mass] 27.6 pg Normal 27.0-34.0 [facility] Comment on above: Result Comment: Ian ection date/time has been modified to: 16:41:00. Previous collection date/time: 16:48:00. Performed By: #### 2 833851, 07854969, 7017242, 0802842 ####[facility] [address] [place] [address] MCHC (RBC) [Mass/Vol] 33.3 g/dL Normal 31.4-36.0 [facility] Comment on above: Result Comment: Ian ection date/time has been modified to: 16:41:00. Previous collection date/time: 16:48:00. Performed By: #### 2 862788, [id number], 3908445, 3429389 ####[facility] [address] [place] [address] MCV (RBC) [Entitic vol] 82.7 fL Normal 80.0-100.0 [facility] Comment on above: Result Comment: Ian ection date/time has been modified to: 16:41:00. Previous collection date/time: 16:48:00. Performed By: #### 2 823068, [id number], 1325141, [id number] ####[facility] [address] [place] [address] Platelet mean volume (Bld) [Entitic vol] 7.8 fL Normal 6.4-10.8 [facility] [facility] Comment on above: Result Comment: Ian ection date/time has been modified to: 16:41:00. Previous collection date/time: 16:48:00. Performed By: #### 2 [id number] ####[facility] [address] [place] [address] Platelets (Bld) [#/Vol] 271.0 E9/L Normal 150.0-500.0 [facility] Comment on above: Result Comment: Ian ection date/time has been modified to: 16:41:00. Previous collection date/time: 16:48:00. Performed By: #### 2 [id number], [id number] ####[facility] [address] [place] [address] RBC (Bld) [#/Vol] 4.6 E12/L Normal 4.3-5.9 [facility] Comment on above: Result Comment: Ian ection date/time has been modified to: 16:41:00. Previous collection date/time: 16:48:00. Performed By: #### 2 [id number], [id number] ####[facility] [id number] [place] [address] WBC corrected for nucl RBC Auto (Bld) [#/Vol] 6.1 E9/L Normal 4.0-11.0 [facility] Comment on above: Result Comment: Ian ection date/time has been modified to: 16:41:00. Previous collection date/time: 16:48:00. Performed By: #### 2 [id number], [id number] ####[facility] [address] [place] [address] CHEMISTRYOrdered By: SYSTEM SYSTEM on 06-05-2023 Anion gap [Moles/Vol] 9 mmol/L Normal 6 - 16 mEq/L F C Remisol Calcium [Mass/Vol] 9.3 mg/dL Normal 8.9 - 11. 1 mg/dL FT Remisol Chloride [Moles/Vol] 110 mmol/L Normal 101 - 1 11 mmol/L FT [facility] CO2 [Moles/Vol] 26 mmol/L Normal 21 - 31 mmol/L FT Remisol Creatinine [Mass/Vol] 0.7 mg/dL Normal 0.5 - 1.3 mg/dL [facility]isol GFR/1.73 sq M.predicted among non-blacks MDRD (S/P/Bld) [Vol rate/Area] 126 mL/min/1.73 m2 Normal >=59mL/min/1. 73 m2 [facility] Chem S Comment on above: Interpretive Data: C hronic kidney disease could be indicated at eGFR's of less than 60 mL/min/1.73m2. Kidney failure is indicated at less than 15 mL/min/1.73m2. Glucose [Mass/Vol] 106 mg/dL Normal 55 - 199 mg/dL [facility] Comment on above: Interpretive Data: I f this glucose result represents a fasting glucose, interpretation should refer to the following reference range: 55-99 mg/dL Potassium [Moles/Vol] 3.9 mmol/L Normal 3.5 - 5.3 mmol/L [facility] Remisol Sodium [Moles/Vol] 141 mmol/L Normal 135 - 145 mmol/L [facility] Remisol Urea nitrogen [Mass/Vol] 5 mg/dL Normal 5 - 21 mg/dL [facility] Remisol Urea nitrogen/Creatinine [Mass ratio] 7 mg/mg Low 10 - 20 [facility] [place] CT Head or Brain w/o Contras ton 06-05-2023 CT Head or Brain w/o Contrast Exam Date/Time: 06/05/2023 17:02 EDT Reason for Exam: Headache, sudden, severe;Other (please specify) Report IMPRESSION: NO ACUTE INTRACRANIAL PROCESS. EXAMINATION: CT of the brain without contrast HISTORY: Headache COMPARISON: None available TECHNIQUE: Multiple axial images were obtained of the brain from the skull base through the vertex. Multiplanar reformats were obtained. FINDINGS: Brain volume is age appropriate. Ventricular morphology is within normal limits. Gan-white matter differentiation is preserved. No acute hemorrhage or abnormal extra-axial fluid collection. Basal cisterns are patent. No mass effect or midline shift. The visualized paranasal sinuses and mastoid air cells are clear. Calvarium is intact. All CT scans at this facility use dose modulation, iterative reconstruction, and/or weight based dosing when appropriate to reduce radiation dose to as low as reasonably achievable. Ordering Provider: Víctor Lind FINAL REPORT Dictated: 06/05/2023 5:12 pm John Maurer DO Signed (Electronic Signature): 06/05/2023 5:12 pm Signed by: John Maurer DO Transcribed by: KG Technologist: KIRSTIE Andrea [facility] Consent for Treatmenton 05-25 Consent for Treatment [id number] #1.00TIFF [facility] Discharge Instructionson Discharge Instructions [id number] #1.00TIFF [facility] ED Clinical Summaryon 2022 ED Clinical Summary [place] [address] ED Clinical Summary Person Information Name: ROQUE PIERSON/[place] Age: 22 Years : 2000 Sex: Female Language: Serbian PCP: Delfin Urbano MD Marital Status: Single Visit Id: Visit Reason: Nausea; Headache; MIGRAINE Speciality: Acuity: 3 Enc Type: Emergency Med Service: Emergency Arrival: 06/05/2023 15:20:08 Discharge: 06/05/2023 18:41:37 LOS: 000 03:21 Checkin: 06/05/2023 15:20:08 Checkout: 06/05/2023 18:41:37 Dispo Type: Home (Routine DC) EVENTS: Event Name Event Status Request Date/Time Start Date/Time Complete Date/Time Arrive Complete 06/05/2023 15:20:08 06/05/2023 15:20:08 06/05/2023 15:20:08 Document Home Meds Request 06/05/2023 15:20:08 Triage Complete 06/05/2023 15:20:08 06/05/2023 15:50:02 06/05/2023 15:50:02 Bed Assign Complete 06/05/2023 15:47:04 06/05/2023 15:47:04 06/05/2023 15:47:04 Dr Exam Complete 06/05/2023 15:47:04 06/05/2023 15:50:58 06/05/2023 15:50:58 RN Exam Complete 06/05/2023 15:47:04 06/05/2023 16:20:34 06/05/2023 16:20:34 Registration Complete 06/05/2023 15:50:58 06/05/2023 16:01:53 06/05/2023 16:01:53 Dr Exam Complete 06/05/2023 15:53:45 06/05/2023 15:53:45 06/05/2023 15:53:45 Reg Complete Request 06/05/2023 16:01:53 Reg Bed Request Complete 06/05/2023 16:01:53 06/05/2023 16:01:53 06/05/2023 16:01:53 Pending Labs Complete 06/05/2023 16:28:21 06/05/2023 18:14:51 Lab Complete 06/05/2023 16:28:21 06/05/2023 18:14:51 Swab Complete 06/05/2023 16:28:21 06/05/2023 17:28:27 Urine Collect Complete 06/05/2023 16:28:21 06/05/2023 18:14:51 Meds Admin Complete 06/05/2023 16:28:21 06/05/2023 16:45:30 CT Complete 06/05/2023 16:28:22 06/05/2023 16:39:07 06/05/2023 17:02:55 Pending Labs Complete 06/05/2023 16:48:57 06/05/2023 16:48:57 06/05/2023 17:13:38 Lab Complete 06/05/2023 16:48:57 06/05/2023 16:48:57 06/05/2023 17:13:38 Pending Labs Complete 06/05/2023 16:50:45 06/05/2023 16:50:45 06/05/2023 16:50:49 Lab Complete 06/05/2023 16:50:45 06/05/2023 16:50:45 06/05/2023 16:50:49 Discharge Complete 06/05/2023 18:17:55 06/05/2023 18:41:46 06/05/2023 18:41:46 Pending Labs Complete 06/05/2023 18:41:39 06/05/2023 18:41:39 06/05/2023 18:41:40 Transfer Complete 06/05/2023 18:41:46 06/05/2023 18:41:46 06/05/2023 18:41:46 ADDRESS: [address] [place] [phone] [facility] NOTES: MEDICAL INFORMATION: Prescriptions Given: Medications to Continue with No Changes Other Medications amoxicillin 500 Milligram. metoclopramide (Reglan 10 mg Tab) 1 Tablets By Mouth every 6 hours. Refills: 0. ondansetron (Zofran ODT 4 mg Tab-Dis) 1 Tablets By Mouth every 6 hours as needed Nausea/Vomiting. Refills: 0. promethazine (promethazine 12.5 mg oral tablet) 1 Tablets By Mouth every 8 hours as needed as needed for nausea/vomiting. Refills: 0. PATIENT EDUCATION INFORMATION: Instructions: General Headache Without Cause Follow up: With: Address: When: Delfin Urbano [address] [facility], [address] [place] [id number] Business (1) In 3 days 06/08/2023 Comments: Call the office of your primary care doctor to arrange for follow-up within the above-stated timeframe. Follow-up with your primary care doctor about this ED visit. You should review your labs, imaging, and diagnoses from this ED visit with your primary care physician. If you were prescribed medications you should discuss possible side-effects and drug interactions with your pharmacist. Call 911 or go to the nearest Emergency Department if you develop any new or worsening symptoms. DIAGNOSIS: Headache; Nauseous Normal [facility] ED Note-Physicianon 06-05-20 ED Note-Physician Basic Information Time Seen: Víctor Lind PA-C 06/05/2023 15:50 Chief Complaint c/o headache and migraine for three days associated with nausea. History of Present Illness 22-year-old female presents ED with complaint of 3 days of headache and nausea. Patient is complaining of a severe headache with sudden onset. Patient states that she has had 1 similar headache previous in her life that she can think of. Patient denies any history of migraine headaches. Patient reports that her headache has waxed and waned in intensity over the last 3 days. Patient is endorsing nausea, denies any vomiting. Patient has any head trauma. Patient is not on any blood thinners. Patient denies any dizziness. Patient denies any focal neurologic deficits. Patient reports being generally otherwise healthy. Review of Systems Full 10 system ROS performed. Pt denies symptoms except as noted above in the HPI. Physical Exam Vitals & Measurements T: 36.9 ?C(Oral) HR: 97(Peripheral) RR: 16 BP: 103/89 SpO2: 99% HT: 175 cm WT: 80.0 kg BMI: 26.12 VITALS: I have reviewed the triage vital signs. GENERAL: Well developed, well appearing adult in no acute distress. NEURO: Alert and oriented x4. Moves all extremities. Face is symmetric and expressive. Cranial nerves II through XII grossly intact as tested. Muscular strength and sensation grossly intact upper and lower extremities bilaterally. No dysarthria. No aphasia. No ataxia. Normal gait. EYES: PERRL. No scleral icterus or conjunctival injection. No discharge. HENT: Normocephalic, atraumatic. Hearing is grossly intact. Nares grossly patent and without discharge. Mucous membranes moist. NECK: No JVD. Patient moves neck without restriction. CARDIO: Rhythm regular. Normal rate. No murmur, rub, or gallop. Pulses equal bilaterally in the upper and lower extremity. No lower extremity edema. PULM: Lungs clear to auscultation in all wisdom. No wheezes, rales, or rhonchi. No conversational dyspnea. No splinting, stridor, or accessory muscle use. GI/: Abdomen is soft and non-tender. Normoactive bowel sounds. EXTREMITIES: Symmetric muscle bulk. No joint swelling. No clubbing, cyanosis, or deformity. SKIN: Warm and dry. Normal turgor. No rash or lesions appreciated. PSYCH: Mood, affect, and interaction is appropriate to the setting. Medical Decision Making Number and Complexity of Problems Differential Diagnosis: [] [facility] Data External documents reviewed: Not applicable My EKG interpretation: Not applicable My CT interpretation: No acute abnormalities on CT head. My X-ray interpretation: Not applicable My Ultrasound interpretation: Not applicable Decision rules/scores evaluated: Not applicable Discussed with: Not applicable Treatment and Disposition ED Course: Patient presents ED with complaint of 3 days of headache. Patient without history of similar headaches, therefore I did order a CT of head brain which was negative. Patient was given metoclopramide, Benadryl, Zofran. Patient did state complete resolution of her symptoms. Patient without any other significant findings on work-up. As patient has benign neuro exam, no findings on CT scan, resolution of symptoms, I believe the patient is appropriate for return home. Return precautions to ED were discussed. Patient questions were answered. Patient discharged home. Shared decision making: As above Code status: Not addressed during this visit Assessment/Plan Headache (R51.9: Headache, unspecified) Nauseous (R11.0: Nausea) Orders: diphenhydrAMINE, 25 mg = 0.5 mL, Injection, IV Push, Once, Stop date 06/05/23 16:28:00 EDT, STAT, Start date 06/05/23 16:28:00 EDT, 06/05/23 16:28:00 EDT metoclopramide, 10 mg = 2 mL, Injection, IV Push, Once, Stop date 06/05/23 16:28:00 EDT, STAT, Start date 06/05/23 16:28:00 EDT, 06/05/23 16:28:00 EDT ondansetron, 4 mg = 2 mL, Injection, IV Push, Once, Stop date 06/05/23 16:28:00 EDT, STAT, Start date 06/05/23 16:28:00 EDT, 06/05/23 16:28:00 EDT Automated Diff Basic Metabolic Panel CBC w/ Auto Diff CT Head or Brain w/o Contrast eGFR Influenza A&B Ag Rapid COVID Antigen ([facility] U Beta Hcg Qual Disposition Plan Patient Discharge Condition Stable Discharge Disposition To home Discharge Prescription List Prescriptions No active prescription medications Follow-up With When Contact Information Delfin Urbano In 3 days 06/08/2023 EDT [address] [place] [phone]- Business (1) Additional Instructions: Call the office of your primary care doctor to arrange for follow-up within the above-stated timeframe. Follow-up with your primary care doctor about this ED visit. You should review your labs, imaging, and diagnoses from this ED visit with your primary care physician. If you were prescribed medications you should discuss possible side-effects and drug interactions with your pharmacist. Call 911 or go to the nearest Emergency Department if you develop any new or worsening (more content not included)... Normal [facility] Comment on above: Result Comment: Elec tronically Signed By: Víctor Lind PA-C\.br\Date and Time Signed: 06/05/23 18:29 EDT\.br\Electronically Co-Signed By: Fercho Jaime DO.br\Date and Time Co-Signed: 06/05/23 19:40 EDT ED Patient Education Noteon 06-05-2023 ED Patient Education Note Neurology General Headache Without Cause A headache is pain or discomfort felt around the head or neck area. There are many causes and types of headaches. A few common types include: ? Tension headaches. ? Migraine headaches. ? Cluster headaches. ? Chronic daily headaches. Sometimes, the specific cause of a headache may not be found. Follow these instructions at home: Watch your condition for any changes. Let your health care provider know about them. Take these steps to help with your condition: Managing pain ? Take ebgh-zeq-jxihwpk and prescription medicines only as told by your health care provider. Treatment may include medicines for pain that are taken by mouth or applied to the skin. ? Lie down in a dark, quiet room when you have a headache. ? Keep lights dim if bright lights bother you or make your headaches worse. ? If directed, put ice on your head and neck area: ? Put ice in a plastic bag. ? Place a towel between your skin and the bag. ? Leave the ice on for 20 minutes, 2?3 times per day. ? Remove the ice if your skin turns bright red. This is very important. If you cannot feel pain, heat, or cold, you have a greater risk of damage to the area. ? If directed, apply heat to the affected area. Use the heat source that your health care provider recommends, such as a moist heat pack or a heating pad. ? Place a towel between your skin and the heat source. ? Leave the heat on for 20?30 minutes. ? Remove the heat if your skin turns bright red. This is especially important if you are unable to feel pain, heat, or cold. You have a greater risk of getting burned. Eating and drinking ? Eat meals on a regular schedule. ? If you drink alcohol: ? Limit how much you have to: ? 0?1 drink a day for women who are not . ? 0?2 drinks a day for men. ? Know how much alcohol is in a drink. In the [place] one drink equals one 12 oz bottle of beer (355 mL), one 5 oz glass of wine (148 mL), or one 1? oz glass of hard liquor (44 mL). ? Stop drinking caffeine, or decrease the amount of caffeine you drink. ? Drink enough fluid to keep your urine pale yellow. General instructions ? Keep a headache journal to help find out what may trigger your headaches. For example, write down: ? What you eat and drink. ? How much sleep you get. ? Any change to your diet or medicines. ? Try massage or other relaxation techniques. ? Limit stress. ? Sit up straight, and do not tense your muscles. ? Do not use any products that contain nicotine or tobacco. These products include cigarettes, chewing tobacco, and vaping devices, such as e-cigarettes. If you need help quitting, ask your health care provider. ? Exercise regularly as told by your health care provider. ? Sleep on a regular schedule. Get 7?9 hours of sleep each night, or the amount recommended by your health care provider. ? Keep all follow-up visits. This is important. Contact a health care provider if: ? Medicine does not help your symptoms. ? You have a headache that is different from your usual headache. ? You have nausea or you vomit. ? You have a fever. Get help right away if: ? Your headache: ? Becomes severe quickly. ? Gets worse after moderate to intense physical activity. ? You have any of these symptoms: ? Repeated vomiting. ? Pain or stiffness in your neck. ? Changes to your vision. ? Pain in an eye or ear. ? Problems with speech. ? Muscular weakness or loss of muscle control. ? Loss of balance or coordination. ? You feel faint or pass out. ? You have confusion. ? You have a seizure. These symptoms may represent a serious problem that is an emergency. Do not wait to see if the symptoms will go away. Get medical help right away. Call your local emergency services (911 in the [place] Do not drive yourself to the hospital. Summary ? A headache is pain or discomfort felt around the head or neck area. ? There are many causes and types of headaches. In some cases, the cause may not be found. ? Keep a headache journal to help find out what may trigger your headaches. Watch your condition for any changes. Let your health care provider know about them. ? Contact a health care provider if you have a headache that is different from the usual headache, or if your symptoms are not helped by medicine. ? Get help right away if your headache becomes severe, you vomit, you have a loss of vision, you lose your balance, or you have a seizure. This information is not intended to replace advice given to you by your health care provider. Make sure you discuss any questions you have with your health care provider. Document Revised: 01/09/2022 Document Reviewed: 01/09/2022 Elsevier Patient Education ? 2022 [employer] Normal [facility] ED Patient Summaryon 023 ED Patient Summary [address] [address] Patient Discharge Instructions Person Information Name: ROQUE PIERSON Age: 22 Years Arrival Date: 06/05/2023 15:20:08 Discharge Diagnosis: Headache; Nauseous Primary Care Physician: Delfin Urbano MD Provider Information Primary Provider: Fercho Jaime DO Advanced [employer]room Foreman:Víctor Lind PA-C The exam and treatment you received in the Emergency Department were for an urgent problem and are not intended as complete care. It is important that you follow up with a doctor, nurse practitioner, or physician?s assistant signal maintainer for ongoing care. If your symptoms become worse or you do not improve as expected and you are unable to reach your usual health care provider, you should return to the Emergency Department. We are available 24 hours a day. ROQUE PIERSON has been given the following list of patient education materials, prescriptions and follow-up instructions: Follow-up Instructions: With: Address: When: Delfin Alfarovanita [address] [place] [address], [place] [address] Business (1) In 3 days 06/08/2023 Comments: Call the office of your primary care doctor to arrange for follow-up within the above-stated timeframe. Follow-up with your primary care doctor about this ED visit. You should review your labs, imaging, and diagnoses from this ED visit with your primary care physician. If you were prescribed medications you should discuss possible side-effects and drug interactions with your pharmacist. Call 911 or go to the nearest Emergency Department if you develop any new or worsening symptoms. In the event that this physician does not participate in your insurance network, please consult with your insurance company to find a nearby participating provider. Patient Education Materials: General Headache Without Cause A MESSAGE TO ALL PATIENTS REGARDING OPIOIDS PRESCRIPTION OPIOIDS: WHAT YOU NEED TO KNOW Prescription opioids can be used to help relieve qlkvgbud-wb-nfkibt pain and are often prescribed following a surgery or injury, or for certain health conditions. These medications can be an important part of the treatment but also come with serious risks. It is important to work with your healthcare provider to make sure you are getting the safest, most effective care. WHAT ARE THE RISKS AND SIDE EFFECTS OF OPIOID USE? Prescription opioids carry serious risks of addiction and overdose, especially with prolonged use. An opioid overdose, often marked by slowed breathing, can cause sudden . The use of prescription opioids can have a number of side effects as well, even when taken as directed: ? Tolerance?meaning you might need to take more of the medication for the same pain relief ? Physical dependence?meaning you have symptoms of withdrawal when a medication is stopped ? Increased sensitivity to pain ? Constipation ? Nausea, vomiting, and dry mouth ? Sleepiness and dizziness ? Confusion ? Depression ? Low levels of testosterone that can result in lower sex drive, energy, and strength ? Itching and sweating RISKS ARE GREATER WITH: ? History of drug misuse, substance use disorder, or overdose ? Mental health conditions (such as depression or anxiety) ? Sleep apnea ? Older age (65 years and older) ? Avoid alcohol while taking prescription opioids. Also, unless specifically advised by your health care provider, medications to avoid include: ? Benzodiazepines (such as Xanax or Valium) ? Muscle relaxants (such as Soma or Flexeril) ? Hypnotics (such as Ambien or Lunesta) ? Other prescription opioids KNOW YOUR OPTIONS Talk to your health care provider about ways to manage your pain that don?t involve prescription opioids. Some of these options may actually work better and have fewer risks and side effects. Options may include: ? Pain relievers such as acetaminophen, ibuprofen, and naproxen ? Some medication that are also used for depression or seizures ? Physical therapy and exercise ? Cognitive behavioral therapy, a psychological, goal-directed approach, in which patients learn how to modify physical, behavioral, and emotional triggers of pain and stress. IF YOU ARE PRESCRIBED OPIOIDS FOR PAIN: ? Never take opioids in greater amounts or more often than prescribed. ? Follow up with your primary health care provider. o Work together to create a plan on how to manage your pain. o Talk about ways to help manage your pain that don?t involve prescription opioids. o Talk about any and all concerns and side effects. ? Help prevent misuse and abuse o Never sell or share prescription opioids. o Never use another person?s prescription opioids. ? Store prescription opioids in a secure place and out of reach of others (this may include visitors, children, friends, and family). ? Safe (more content not included)... Normal [facility] HEMATOLOGYOrdered By: SYSTEM SYSTEM on 06-05-2023 Basophils/100 WBC (Bld) 0.7 % Normal 0.0 - 2.0 % [facility] Comment on above: Result Comment: Ian ection date/time has been modified to: 16:41:00. Previous collection date/time: 16:48:00. Basophils/Leukocytes Auto (Bld) [Pure # fraction] 0.0 E9/L Normal 0.0 - 0.2 E9/L [facility] Comment on above: Result Comment: Ian ection date/time has been modified to: 16:41:00. Previous collection date/time: 16:48:00. Eosinophils/100 WBC (Bld) 1.0 % Normal 0.0 - 8.0 % [facility] Comment on above: Result Comment: Ian ection date/time has been modified to: 16:41:00. Previous collection date/time: 16:48:00. Eosinophils/Leukocyte s Auto (Bld) [Pure # fraction] 0.1 E9/L Normal 0.0 - 0.5 E9/L [facility] Comment on above: Result Comment: Ian ection date/time has been modified to: 16:41:00. Previous collection date/time: 16:48:00. Lymphocytes/100 WBC (Bld) 19.4 % Normal 14.0 - 50.0 % [facility] Comment on above: Result Comment: Ian ection date/time has been modified to: 16:41:00. Previous collection date/time: 16:48:00. Lymphocytes/Leukocyte s Auto (Bld) [Pure # fraction] 1.2 E9/L Normal 1.0 - 4.0 E9/L [facility] Comment on above: Result Comment: Ian ection date/time has been modified to: 16:41:00. Previous collection date/time: 16:48:00. Monocytes/100 WBC (Bld) 8.8 % Normal 4.0 - 14.0 % [facility] Comment on above: Result Comment: Ian ection date/time has been modified to: 16:41:00. Previous collection date/time: 16:48:00. Monocytes/Leukocytes Auto (Bld) [Pure # fraction] 0.5 E9/L Normal 0.2 - 1.0 E9/L [facility] Comment on above: Result Comment: Ian ection date/time has been modified to: 16:41:00. Previous collection date/time: 16:48:00. Neutrophils/100 WBC (Bld) 70.1 % Normal 36.0 - 75.0 % [facility] Comment on above: Result Comment: Ian ection date/time has been modified to: 16:41:00. Previous collection date/time: 16:48:00. Neutrophils/Leukocyte s Auto (Bld) [Pure # fraction] 4.2 E9/L Normal 2.0 - 7.5 E9/L [facility] Comment on above: Result Comment: Ian ection date/time has been modified to: 16:41:00. Previous collection date/time: 16:48:00. HEMATOLOGYOrdered By: Sveta Fountain on 06-05-2023 Erythrocyte distribution width (RBC) [Ratio] 13.9 % Normal 10.9 - 14.2 % [facility] Comment on above: Result Comment: Ian ection date/time has been modified to: 16:41:00. Previous collection date/time: 16:48:00. Hematocrit (Bld) [Volume fraction] 38.4 % Normal 34.0 - 46.0 % [facility] Comment on above: Result Comment: Ian ection date/time has been modified to: 16:41:00. Previous collection date/time: 16:48:00. Hemoglobin (Bld) [Mass/Vol] 12.8 g/dL Normal 12.0 - 16.0 gm/dL [facility] Comment on above: Result Comment: Ian ection date/time has been modified to: 16:41:00. Previous collection date/time: 16:48:00. MCH (RBC) [Entitic mass] 27.6 pg Normal 27.0 - 34.0 pg [facility] Comment on above: Result Comment: Ian ection date/time has been modified to: 16:41:00. Previous collection date/time: 16:48:00. MCHC (RBC) [Mass/Vol] 33.3 g/dL Normal 31.4 - 36.0 gm/dL [facility] Comment on above: Result Comment: Ian ection date/time has been modified to: 16:41:00. Previous collection date/time: 16:48:00. MCV (RBC) [Entitic vol] 82.7 fL Normal 80.0 - 100.0 fL [facility] Comment on above: Result Comment: Ian ection date/time has been modified to: 16:41:00. Previous collection date/time: 16:48:00. Platelet mean volume (Bld) [Entitic vol] 7.8 fL Normal 6.4 - 10.8 fL [facility] Comment on above: Result Comment: Ian ection date/time has been modified to: 16:41:00. Previous collection date/time: 16:48:00. Platelets (Bld) [#/Vol] 271.0 E9/L Normal 150.0 - 500.0 E9/L [facility] Comment on above: Result Comment: Ian ection date/time has been modified to: 16:41:00. Previous collection date/time: 16:48:00. RBC (Bld) [#/Vol] 4.6 E12/L Normal 4.3 - 5.9 E12/L [facility] Comment on above: Result Comment: Ian ection date/time has been modified to: 16:41:00. Previous collection date/time: 16:48:00. WBC corrected for nucl RBC Auto (Bld) [#/Vol] 6.1 E9/L Normal 4.0 - 11.0 E9/L [facility] Comment on above: Result Comment: Ian ection date/time has been modified to: 16:41:00. Previous collection date/time: 16:48:00. Influenza A&B Agon Influenzae A Ag Negative Normal Negative [facility] Comment on above: Performed By: #### 2 [id number], [id number], [id number], [id number], [id number], [id number] #### [facility] [address] [place] [address] Influenzae B Ag Negative Normal Negative [facility] Comment on above: Result Comment: Test sensitivity and specificity vary for age group, specimen type, antigen types, and prevalence of disease. Test results must be evaluated in conjunction with other clinical data available to the physician. Individuals who received nasally administered Influenza A vaccine may have positive test results up to 3 days after vaccination. Performed By: #### 2 [id number], [id number], [id number], [id number], [id number], [id number], [id number] #### [facility] [address] [place] [address] MICRO OTHER TESTSOrdered By: Kirsten Faustin on 06-05-2023 Influenzae A Ag Negative (06/05/23 4:52 PM) Normal Negative [facility] Influenzae B Ag Negative 1 (06/05/23 4:52 PM) Normal Negative [facility] Comment on above: Interpretive Data: T est sensitivity and specificity vary for age group, specimen type, antigen types, and prevalence of disease. Test results must be evaluated in conjunction with other clinical data available to the physician. Individuals who received nasally administered Influenza A vaccine may have positive test results up to 3 days after vaccination. Rapid COV Int NEG Ctl Pass (06/05/23 4:52 PM) Normal [facility] Rapid COV Int POS Ctl Pass (06/05/23 4:52 PM) Normal [facility] SARS-CoV+SARS-CoV-2 (COVID-19) Ag IA.rapid Ql (Resp) Not Detected 24 (06/05/23 4:52 PM) Normal Not Detected [facility] Comment on above: Interpretive Data: T amee Lucky Ant Veritor System for Rapid Detection of SARS-CoV-2 is a chromatographic digital immunoassay intended for the direct and qualitative detection of SARS-CoV-2 nucleocapsid antigens in nasal swabs from individuals who are suspected of COVID-19 by their healthcare provider within the first five days of the onset of symptoms. Negative results should be treated as presumptive, do not rule out SARS-CoV-2 infection and should not be used as the sole basis for treatment or patient management decisions, including infection control decisions. Negative results should be considered in the context of a patient s recent exposures, history and the presence of clinical signs and symptoms consistent with COVID-19, and confirmed with a molecular assay, if necessary, for patient management. For in vitro diagnostic use. In the [place], only for use under an Emergency Use Authorization. In the [place], this test has not been FDA cleared or approved; this test has been authorized by FDA under an EUA for use by authorized laboratories; use by laboratories certified under the CLIA, 42 U.S.C. 263a, that meet requirements to perform moderate, high, or waived complexity tests and at the Point of Care (POC), i.e., in patient care settings operating under a CLIA Certificate of Waiver, Certificate of Compliance, or Certificate of Accreditation. This test has been authorized only for the detection of proteins from SARS-CoV-2, not for any other viruses or pathogens; and, in the [place], this test is only authorized for the duration of the declaration that circumstances exist justifying the authorization of emergency use of in vitro diagnostics for detection and/or diagnosis of the virus that causes COVID-19 under Section 564(b)(1) of the Act, 21 U.S.C. 360bbb-3(b)(1), unless the authorization is terminated or revoked sooner. Rapid COVID Antigen ([facility]on 06-05-2023 Rapid COV Int NEG Ctl Pass Normal Fis her [facility] Comment on above: Performed By: #### 2 [id number], [id number], 6735134, 7753064, [id number], [id number], [id number] #### [facility] [address] [place] [address] Rapid COV Int POS Ctl Pass Normal Fis her [facility] Comment on above: Performed By: #### 2 [id number], [id number], [id number], [id number], [id number], [id number], [id number] #### [facility] [address] [place] [address] SARS-CoV+SARS-CoV-2 (COVID-19) Ag IA.rapid Ql (Resp) Not detected Normal Not Detected [facility] Comment on above: Result Comment: The QuickSolar System for Rapid Detection of SARS-CoV-2 is a chromatographic digital immunoassay intended for the direct and qualitative detection of SARS-CoV-2 nucleocapsid antigens in nasal swabs from individuals who are suspected of COVID-19 by their healthcare provider within the first five days of the onset of symptoms. Negative results should be treated as presumptive, do not rule out SARS-CoV-2 infection and should not be used as the sole basis for treatment or patient management decisions, including infection control decisions. Negative results should be considered in the context of a patient?s recent exposures, history and the presence of clinical signs and symptoms consistent with COVID-19, and confirmed with a molecular assay, if necessary, for patient management. For in vitro diagnostic use. In the [facility], only for use under an Emergency Use Authorization. In the [facility], this test has not been FDA cleared or approved; this test has been authorized by FDA under an EUA for use by authorized laboratories; use by laboratories certified under the CLIA, 42 U.S.C. ?263a, that meet requirements to perform moderate, high, or waived complexity tests and at the Point of Care (POC), i.e., in patient care settings operating under a CLIA Certificate of Waiver, Certificate of Compliance, or Certificate of Accreditation. This test has been authorized only for the detection of proteins from SARS-CoV-2, not for any other viruses or pathogens; and, in the [place], this test is only authorized for the duration of the declaration that circumstances exist justifying the authorization of emergency use of in vitro diagnostics for detection and/or diagnosis of the virus that causes COVID-19 under Section 564(b)(1) of the Act, 21 U.S.C. ? 360bbb-3(b)(1), unless the authorization is terminated or revoked sooner. Performed By: #### 2 [id number], [id number], 0709661, [id number], [id number], [id number], [id number] #### [facility] [address] [place] [address] SEROLOGYOrdered By: Kirsten amor on 06-05-2023 HCG.beta subunit (U) [Moles/Vol] Negative Normal [facility] U BetaHcg Qualon 06-05-2023 HCG.beta subunit (U) [Moles/Vol] Negative Normal [facility] Comment on above: Performed By: #### 2 [id number], [id number], [id number], [id number], [id number], [id number], [id number] #### [facility] [address] [place] [address] eGFRon 06-05-2023 GFR/1.73 sq M.predicted among non-blacks MDRD (S/P/Bld) [Vol rate/Area] 126 mL/min/1.73 m2 Normal >=59 [facility] Comment on above: Order Comment: Order added by Discern Expert. Result Comment: Electric Motor [employer] emil kidney disease could be indicated at eGFR's of less than 60 mL/min/1.73m2. Kidney failure is indicated at less than 15 mL/min/1.73m2. Performed By: #### 2 [id number], [id number], [id number], [id number] ####[facility] [address] [place] [address] Cult,Urineon 03-25-2023 Cult,Urine Specimen Description .URINE, MIDSTREAM Culture NO SIGNIFICANT GROWTH Report Status FINAL 03/25/2023 Normal [facility] Comment on above: Performed By: #### C DP, CP #### [facility] [address] [place] [address] Construction Laborer: Alfred Chirinos MD Urinalysis, Routineon 2022 Bilirubin, SemiQt,Ur Negative Normal NEG [facility] Comment on above: Performed By: #### U A, UMICAO #### [facility] [address] [place] [address] Construction Laborer: Alfred Chirinos MD Blood, Urine Negative Normal NEG [facility] Comment on above: Performed By: #### U A, UMICAO #### [facility] [address] [place] [address] Construction Laborer: Alfred Chirinos MD Clarity (U) Clear Normal CLEAR [facility] Comment on above: Performed By: #### U A, UMICAO #### [facility] [address] [place] [address] Construction Laborer: Alfred Chirinos MD Color (U) Yellow Normal YEL [facility] Comment on above: Performed By: #### U A, UMICAO #### [facility] [address] [place] [address] Construction Laborer: Alfred Chirinos MD Comment Normal [facility] Comment on above: Performed By: #### U A, UMICAO #### [facility] [address] [place] [address] Construction Laborer: Alfred Chirinos MD Glucose Ql (U) Negative Normal NEG [facility] Comment on above: Performed By: #### U A, UMICAO #### [facility] [address] [place] [address] Construction Laborer: Alfred Chirinos MD Ketones Ql (U) TRACE Abnormal NEG [facility] Comment on above: Performed By: #### U A, UMICAO #### [facility] [address] [place] [address] Construction Laborer: Alfred Chirinos MD Leukocyte esterase Test strip Ql (U) 1+ Abnormal NEG [facility] Comment on above: Performed By: #### U A, UMICAO #### [facility] [address] [place] [address] Construction Laborer: Alfred Chirinos MD Nitrite,Ur Negative Normal NEG [facility] Comment on above: Performed By: #### U A, UMICAO #### [facility] [address] [place] [address] Construction Laborer: Alfred Chirinos MD PH,Ur 6.5 Normal 5.0-8.0 [facility] Comment on above: Performed By: #### U A, UMICAO #### [facility] [address] [place] [address] Construction Laborer: Alfred Chirinos MD Protein Ql (U) TRACE Abnormal NEG [facility] Comment on above: Performed By: #### U A, UMICAO #### [facility] [address], [place] [id number] Construction Laborer: Alfred Chirinos MD Spec. Taylor,Ur 1.015 Normal 1.005-1.[address] [facility] Comment on above: Performed By: #### U A, UMICAO #### [facility] [address] [place] [address] Construction Laborer: Alfred Chirinos MD Urobilinogen,Ur Normal Normal 0.0-1.0 [facility] Comment on above: Performed By: #### U A, UMICAO #### [facility] [address], [place] [id number] Construction Laborer: Alfred Chirinos MD Urinalysis,Microon 3 ----- Normal [facility] Comment on above: Performed By: #### U A, UMICAO #### [facility] [address], [place] [phone] Construction Laborer: Alfred Chirinos MD Bacteria RARE Abnormal NONE [facility] Comment on above: Performed By: #### U CHET Maldonado #### [facility] [address], [place] [id number] Construction Laborer: Alfred Chirinos MD Urine RBC's 0 TO 2 Normal 0-2 [facility] Comment on above: Performed By: #### CHET Andino #### [facility] [address], [place] [id number] Construction Laborer: Alfred Chirinos MD Urine WBC's 0 TO 2 Normal 0 [facility] Comment on above: Performed By: #### CHET Andino #### [facility] [address] [place] [phone] Construction Laborer: Alfred Chirinos MD CBC with Diffon 01-03-2023 Abs. Basophil 0.00 k/uL Normal 0.0-0.2 [facility] Comment on above: Performed By: #### C DP, CP #### [facility] [address] [place] [phone] Construction Laborer: Alfred Chirinos MD Abs.Neutrophil (Seg) 5.40 k/uL Normal 2.5-7.0 [facility] Comment on above: Performed By: #### C DP, CP #### [facility] [address] [place] [address] Construction Laborer: Alfred Chirinos MD Auto Diff Performed YES Normal [facility] Comment on above: Performed By: #### C DP, CP #### [facility] [address], [place] [id number] Construction Laborer: Alfred Chirinos MD Basophils/100 WBC (Bld) 0 % Normal 0-2 [facility] Comment on above: Performed By: #### C DP, CP #### [facility] [address] [place] [address] Construction Laborer: Alfred Chirinos MD Eosinophils (Bld) [#/Vol] 0.20 10*3/uL Normal 0.0-0.4 [facility] Comment on above: Performed By: #### C DP, CP #### [facility] [address] [place] [address] Construction Laborer: Alfred Chirinos MD Eosinophils/100 WBC (Bld) 2 % Normal 0-5 [facility] Comment on above: Performed By: #### C DP, CP #### [facility] [address] [place] [phone] Construction Laborer: Alfred Chirinos MD Erythrocyte distribution width (RBC) [Ratio] 13.1 % Normal 12.1-15.2 [facility] Comment on above: Performed By: #### C DP, CP #### [facility] [address] [place] [phone] Construction Laborer: Alfred Chirinos MD Hematocrit (Bld) [Volume fraction] 32.8 % Low 36-46 [facility] Comment on above: Performed By: #### C DP, CP #### [facility] [address] [place] [address] Construction Laborer: Alfred Chirinos MD Hemoglobin (Bld) [Mass/Vol] 11.2 g/dL Low 12.0-16.0 [facility] Comment on above: Performed By: #### C DP, CP #### [facility] [address] [place] [address] Construction Laborer: Alfred Chirinos MD Lymphocytes (Bld) [#/Vol] 1.90 10*3/uL Normal 1.0-4.8 [facility] Comment on above: Performed By: #### C DP, CP #### [facility] [address] [place] [address] Construction Laborer: Alfred Chirinos MD Lymphocytes/100 WBC (Bld) 23 % Normal 15-40 [facility] Comment on above: Performed By: #### C DP, CP #### [facility] [address] [place] [address] ([phone]) Construction Laborer: Alfred Chirinos MD MCH (RBC) [Entitic mass] 30.8 pg Normal 26-34 [facility] Comment on above: Performed By: #### C DP, CP #### [facility] [address] [place] [id number] (917) Construction Laborer: Alfred Chirinos MD MCHC (RBC) [Mass/Vol] 34.0 g/dL Normal 31-37 [facility] Comment on above: Performed By: #### C DP, CP #### [facility] [address] [place] [phone] Construction Laborer: Alfred Chirinos MD MCV (RBC) [Entitic vol] 90.4 fL Normal 80-100 [facility] Comment on above: Performed By: #### C DP, CP #### [facility] [address] [place] [address] (018) Construction Laborer: Alfred Chirinos MD Monocytes (Bld) [#/Vol] 0.80 10*3/uL Normal 0.0-1.0 [facility] Comment on above: Performed By: #### C DP, CP #### [facility] [address], [place] [phone] Construction Laborer: Alfred Chirinos MD Monocytes/100 WBC (Bld) 9 % High 4-8 [facility] Comment on above: Performed By: #### C DP, CP #### [facility] [address] [place] [address] Construction Laborer: Alfred Chirinos MD Neutrophil (Seg) 66 % Normal 47-75 [facility] Comment on above: Performed By: #### C DP, CP #### [facility] [address] [place], [place] [phone] (781) Construction Laborer: Alfred Chirinos MD Platelets (Bld) [#/Vol] 239 10*3/uL Normal 140-450 [facility] Comment on above: Performed By: #### C DP, CP #### [facility] [address], [place] [phone] (918) Construction Laborer: Alfred Chirinos MD RBC (Bld) [#/Vol] 3.63 10*6/uL Low 4.0-5.2 [facility] Comment on above: Performed By: #### C DP, CP #### [facility] [address], [place] [phone] (144) Construction Laborer: Alfred Chirinos MD WBC (Bld) [#/Vol] 8.3 10*3/uL Normal 4.5-13.5 [facility] Comment on above: Performed By: #### C DP, CP #### [facility] [address], [place] [id number] Construction Laborer: Alfred Chirinos MD Glucose Heather Scr 50gon 2022 Glucose [Mass/Vol] 98 mg/dL Normal 70-135 [facility] Comment on above: Performed By: #### C DP, CP #### [facility] [address], [place] [phone] Construction Laborer: Alfred Chirinos MD Glu Administered via Glucola Normal [facility] Comment on above: Performed By: #### C DP, CP #### [facility] [address], [place] [phone] Construction Laborer: Alfred Chirinos MD US PREG ANATOMY SINGLEon US PREG ANATOMY SINGLE EXAMINATION: US PREG ANATOMY SINGLE HISTORY: Routine care COMPARISON: Ultrasound transvaginal 09/20/2022 TECHNIQUE: Transabdominal sonographic examination was performed for obstetrical and evaluation. FINDINGS: Number: 1 Heart Rate: 136.0 bpm H.B. /min Amniotic Fluid Volume: Subjectively normal Placental Location: POSTERIOR with lower margin 3.0 cm from os. Cervix Length: 4.7 cm, closed. ANATOMY: Normal Structures -cerebellum, choroid plexus, cisterna magna, lateral cerebral ventricles, orbits, midline falx, hard palate, four-chamber heart, RVOT, LVOT, stomach, kidneys, bladder, umbilical cord insertion into abdomen, three-vessel cord, cervical spine, thoracic spine, lumbar spine, sacral spine, right upper extremity, left upper extremity, right lower extremity, left lower extremity. SUBOPTIMALLY SEEN: None ABNORMALITIES: None BIOMETRY: BPD: 5.1 cm 21 weeks 4 days HC: 20.1 cm 22 weeks 2 days AC: 16.7 cm 21 weeks 5 days FL: 3.6 cm 21 weeks 2 days EFW:436.3 grams; 77% FL/AC: 21.3 FL/BPD: 69.3 HC/AC: 1.2 GESTATIONAL AGE: Age by EDC: 21 weeks 0 days [place] by EDC: 04/17/2023 Age by current US: 21 weeks 5 days [place] by current US: 04/12/2023 IMPRESSION: 1. Single live intrauterine with growth detailed above. Electronically authenticated by: JULIUS RICKS Date: 2022-12-08 22:36 Normal The [facility] AFP MATERNAL FOR SPINA BIFID Aon 12-07-2022 AFP MoM 1.38 Normal [facility] Comment on above: Performed By: #### A FPMAT #### [facility] [address] [address] [address] Tasha Whalen AFP Value 88.5 ng/mL Normal [facility] Comment on above: Performed By: #### A FPMAT #### [facility] [address] [address] [address] Tasha Whalen AFP, Serum for Spina Bifida Report Normal [facility] Comment on above: Performed By: #### A FPMAT #### [facility] [address] [address] [address] Tasha Whalen Comment Comment Normal [facility] Comment on above: Result Comment: Nakia Lopez, Ph.D., [facility] Director . References: Available Upon Request. . Multiples Of Median Cutoffs For AFP Elevations Contreras 2.5 Black 2.8 IDD 2.0 Twins 4.5 Abbreviation Definitions IDD - Insulin Dep Diabetes OSBR - Open Spina Bifida Risk . For further inquiries contact [facility] at [phone]. . This test was developed and its performance characteristics determined by [facility]. It has not been cleared or approved by the Food and Drug Administration. Performed By: #### A FPMAT #### [facility] [address] [place] [address] Dr. Tasha Whalen Gest Age Collection Date 21.0 weeks Normal [facility] Comment on above: Performed By: #### A FPMAT #### [facility] [address] [place] [address] Dr. Tasha Whalen Gestat, Age Based on Ultrasound Normal [facility] Comment on above: Result Comment: 17.0 on 11/07/2022 Recalculations are not recommended when gestational dating by LMP and ultrasound are within 10 days. Performed By: #### A FPMAT #### [facility] [address] [place] [address] Dr. Tasha Whalen Insulin Dep Diabetes No Normal [facility] Comment on above: Performed By: #### A FPMAT #### [facility] [address] [place] [address] Dr. Tasha Whalen Interpretation Comment Normal [facility] Comment on above: Result Comment: Inte rpretation: Screen Negative . This result is screen negative for OSB. The AFP MoM calculated is based on the gestational age provided. MS-AFP can identify up to 80% of open neural tube defects. Closed neural tube defects and some open defects may not be detected by this test. This test does not screen for Down Syndrome or Trisomy 18. If screening for Down Syndrome or Trisomy 18 is desired, contact [facility] [employer] [facility] to discuss available options. The [employer] recommends amniocentesis be offered to women age 35 and older. Performed By: #### A FPMAT #### [facility] [address] [place] [address] Dr. Tasha Whalen [age] BENT[place] [age] Normal [facility] Comment on above: Performed By: #### A FPMAT #### [facility] [address] [address] [address] Tasha Whalen Multiple Gestation No Normal [facility] Comment on above: Performed By: #### A FPMAT #### [facility] [address] [address] [address] Tasha Whalen OSBR Risk 1 [place] 3810 Normal [facility] Comment on above: Performed By: #### A FPMAT #### [facility] [address] [address] [address] Tasha Whalen PDF . [facility] Comment on above: Performed By: #### A FPMAT #### [facility] [address] [address] [address] Tasha Whalen Race [facility] Comment on above: Performed By: #### A FPMAT #### [facility] [address] [address] [address] Tasha Whalen Test Results: Negative [facility] Comment on above: Performed By: #### A FPMAT #### [facility] [address] [address] [address] Tasha Whalen Coding Summary.on 12-03-2022 Coding Summary. CD:[id number] Ww+PGhlYWQ+KD0KCOVdS 89abNHgmJ1eQ3XPZNvAO ywgQVBQTElOSyIgbmFtZ Y8hnQZsWQBk IC8+IK6fBQMgEqytiDRc n6C6uUW9X05uth0oAQbx gYQ6DZDhSrVzolouo6hd wIh4LRuoAierUxDk WFAbgD73EPX6dC73Fv78 kJItaPOwe1cyrAq9YfFy RLDdFQT1nGrhLJezr3Ks LSCbJ87ziQIxb7S6 IGNvbGxhcHNlOyBlbXB0 gG2nMIyiprqfk9dcpsvs Qly7qi41fIHtl5E2rNP9 E5NtfeM5GFGkgCHu HwocpJPSqB8xoazep3fz tmfgAyYuNCVrQZs0XJo0 LPLihUntQeOlWG50IDQ4 RFCmtzHfG4QuDMIm uEjiGoF0c5D0Ok4EJ4SM HljpU2VOTUWXKOxtmEA+ BY08sy78I3GuVkouJna8 NOIrJUX7gQX2xC8r LKVeTEbxs9F1aWZ9V0Lt qaAshp8ox2zbQAReVWsg T25aqHHgt0K8UJYmhRD7 BEHkgPdrAxShgS13 Oyc+CQLjuSoyf1UxQfzh o0qry7rgpUc1VpghJNOi ktRvcWlfLET6m3ReXx0x CYJrsNT8vME6uN2b CwBiGvK1XEqkH359FhTj dVOxZccmO90vB6EinCC+ RQUmVgf1HTFnsJdrVH1g O3UjDTRmdikgdEUt kAgiUF5aYIVpbaqoPUKy lH6rFWQyS0f8YnDtGgX0 JTdsK5RsMLJysyjtKk39 bL4nQaPmAqF6FOcx E4LihxV4KIZhhPScQTwr KGE9S21ah4Y4PPCsMNKd VXW8kSF9oN5eoIngjmgb bGVmdDsgdmVydGlj PRrfPMqzF258BOXthMda PkNvZGluZyBEYXRlOiAg MDQvMTEvMjAyMzwvdGQ+ SYOqFJZ7hExxESVo pOArYQjoVk2wmDnadGbr KR5vPMXnzxchJVAetG0w BVKrpJJvqVbiSC2qNKDa aeojp025LwQhLKB2 HWRzcSJwI9SkaQ1eCvRl BTZeIGUsD9GxpRZbFEou C128VAyrGeB6YPSvxpSh C3InVTYyaLtfXwS9 a2P0Va5Zv1VehwcgE2Qq rKBfFwWkRsxlKIs0Y2Dh PjwvdHI+QN80HTGeVY35 MRy1XQC9oAbdPVmt DBTnM1NxnA3fTbJbMYOa ZGRkOyc+PHRhYmxlIHdp ZHRoPScxMDAlJyBzdHls UZ6eDm2rEZHzEVSt tRhzvFEdDhRtk8exMJWt SMkvLX4mtAkqR1AeaNC3 YHAnx9j6Oo99G93rK8Uz dXA+BWXjeMW5dAY4 qH3hTxOwMmK8ZLlbO293 JtUfmACmXwwfk2cjb8wv xLl8SjV5EICeqfOisQto GKY6k0BkQh53G36t IHdpZHRoPSIxNSUiIHZh lPvrfr7rlY5gHp1+PGNv iPR5xBX0iV2wJnJrQyU6 DLjrG111YtOefURx Zjstz2sml0vtvDs3VtXp NOBkgiBjwRniBLE4n2Kr Gt72B5GnaTnfl2SkExh3 lb74tOJmh4T4oBJ7 Z8BjEXYhyvdjaHLadVur VY7nUZRzctxjESHzwJ4o TZMbC2e0OhPlBlF5FScf I1RbfpN5RUTvcMKm COLbaKQRkL9iigiuz1us tnkvBdHpIZLsWZd9XSu7 HCDhcIscKxQoSTQ9DxI8 LFS7mSMaqB6owOqk uamegR6jSun+OHB1qFBc qZWAXH3cXjdxqMG+PHRk EEX5sCwqMJxfOWCxsR3v VQSlI2c5PwGmJtN5 TAzbQ3OgqdS4FFQieCGy CTNdbIQYcS2nhymjc0td bjykAfMkPEFxIYd0GBv0 LWFsaWduOiBsZWZ0 KnN6YCO5pHBgsG2hjDzp zlmbaP3qEwq+QmlydGgg IDB8GCr6G3GgQkh6HZQg cPuyHK2jsHTzZSwh Bo5faSnwkDxpGN5kTMCg ujmsy283OaSdr6jcUSGa yDZfFGggFCX4B15zx5N0 EMGgJJUlCJM3aKG6 uD5ydHpimpgppPUrgQps awNlfQawYQguBLeiT973 TKJinZtgSyCdZVw7W2Nu Eji8ZATosOayDM3u aSJvWFhuPf5dhEnmyRfc PZ2bGQWetpqia405NwSf v9niFEMimQObEAmsEVY7 W70tj1C2WAXcMLKy LBJ1lUR0pZ2iwTkcwdal bGVmdDsgdmVydGljYWwt ZCnlB171PBEmcOljUqSb sJl5W0XkQxj6PWTf sChhIK6xgVTkRPyvZp7v pVpjoLetUV1rGNNhymzq k600InFkx8kdPUNkfHLs VHkxJET9S01jv8P4 PUGgWOQrMNZ5pFD0gB8p bGlnbjogbGVmdDsgdmVy kJbhFKlgDMuaQ105HEIz cDsnPlBhdGllbnQg RFelRNq8V2ZfEbylqNE+ JF77TPUcAA82bWVbwQUz n5arlIu7InFmPHGrMWP1 yNvqFGcbk7LtZODt N18imJLyh1C6OLQgaSjr cQOeTnRmdZT9tP8lQCzh nsqhj6rfhnvqCbmfd4yv by79kR55T37aHMwo ZHRoPSIzMCUiIHZhbGln eb6mrY1tBt8+PGNvbCB3 pGH3dA0nAIDxOnZ7CNeb J249RoMpoEBvBhsl v9dbq3icvLv2FvE8OLRt nyUtzQjtMAG3c9KgIh60 O87rYZjtRKGmHNGsPLUv BYOkmRtqij7wfQ2m Ii8+RRAwyGA6zAT3nU9r FfLgSaR3MGneY820LiPf uGUlReocZ83bH5TubFE+ IAOeFdf9YVVuzXsu NA9svZOtBVkuYa2jKXO8 AmAcLnBeCQjfH5XeNUIv cfxbjgvyfUR2XTLnSKVw uV00Yw7rxTinNKLr yOHPyZ4nosdlo9rawkeg PrIiWILfJLo3AHk3FYCv gXflAnLnWBL1AlN2VWB8 sGGttZ9ozVyzvnzp uP2bB8YvBUMqxzusNu05 iZ8eMpZdKvN7HCmrBun+ L9oBA4NMJNJsPLLSWoGV TkEgTTwvdGQ+PHRk BKL3pPksZFvhKKLorB8x MMZeI5a6WbWfVxN3JWlw A6KcGZAaulzmOz10oY5y DeRnGeB9KVscI0Nu vjY8NIEtuGFwVLnnDSC9 B95bm8B9IHQqALSoRAV3 gKL1tP1zuNlldogmbYHs dDsgdmVydGljYWwt HUjsR491QTCesImkPwRx PmU2UoZoCWO2V7ToKur3 YABrjBxpVL1tmTYaKHgw Fh8trUtqrDdqVO7b NTAbhxqrDBNhwT0lFLMx bSIpdCgiFW0dFGSjmvpg s804VoRgSIC4JCSssLYb I0AscM9bWlGkSLVp NCKzK8KkvTPyHXjjG103 WWhpHyU2ILJeizTsW2Wd URQvjLwzHbN5f2V3Wc5g MSBZZWFyczwvdGQ+ CIHxGNH0iBqfCCfkSKPb uC8wVZVgQ8b6KzFoUmA4 GHxeO9UxLBKjnccoBb81 yF4iOtGaZwY2WDvv C6SpmuH9MUQllMGsRQsp NPL8U34bu8L3HYYuACRx SNX5xEC0xD3elQnhpghz bGVmdDsgdmVydGlj MSmjRLtbO730JJLtyIns PkZlbWFsZTwvdGQ+PHRk VUZ3oWcxBXgrCVQwsI9n GSKtK8e9WkWfImY5 CRohC0IiGZVsycgfMw82 xO1bQpPhVfU8FHicW7Ah hyR4WGChyUDpJHfvRMJ4 O07yd3I1MQJmDUKi JDZ4cLI6oH0kxGvvlsja bGVmdDsgdmVydGljYWwt ZYfpE102DKQcpIftQc7S IFRyaWFnZTwvdGQ+ ES01lg41T6YlZfgkTwa9 PFDoATK2rDK3oZ1sINCb BWnow1Z7fJN5E3NazpVh ax2dk4gbTCFeKFsq U05eoULch3K1OKLkiQK5 ZDVksSgaIrBgfI60Ire+ UTTouQgvc8JjTlimz6kk z0wyrHe6GgBzXLWm iuAqzBmtXPB7a1EpLq43 W89wRRgzWLKuSQJaKZVt MMAidLkhac4eeP0nEa7+ XGOwqVU1hXV7bN8r VfAcXuS7TDyiZ356VwTt cEBqTgrqm6ufl3sqvRd2 IjIwJSIgdmFsaWduPSJ0 s3KmTs68W4QoxIwb f9XnVjv1kz29nITna6V4 xQU9F4ItSFFcosovkATx mEgtHD2iLHKlppblXSDw oH7vJBWcP3g9TpJp PyQ2LZyxP2YlucV8BBGz jJMgXRCqpQOKiD7ekoub z1knmxhaEnDmAKBzDOm6 DDg1MUIoaYgsBdRv IXF1SkG2CKI9lCEibM7x fHrfzqrtwY3bRlf+UGh5 s0vtzQZxAF7izQY5TS99 PN04fALqn5R1uVS1 U8PfSYNzotxkpsavhGQ8 HAMqANYomA18We8khObp Or7iCBQmGMR5WQFawGGm N5UzgU6hQlWdSPZp OYSfG4YgoGGaOPotD462 QGnoWeU7UTQmqgFwT5Tg MGPhrVwuTcB8c7V7Xb5X OO00NY68FO10rWZs d3T4mWI7K5GcMUZptkjr elcbxFJ0OFAfXBThtC04 Dm8bcIqpOd7oIEWpPWO6 FSLokJTeQ6XmcM4x OzLcROXlTIZmC9TzeWVj ZYrvL342UWihReS4GSRa vdVeD3HfFUPjbMpkOgS9 u7C1Cx5XRo52AQ51 DJ21aVBqb7C8aAM5N1Hw FTUvmigdznqrcCD7NMMo SKGdeM31Bl3quFtsDo1a SSTmNAT7XARbdVAb Y4KfvE0mKkJrVIKfVSPo N2VxyQTqMTqaA769GHyf IxO4FZKwsiMvR5FmIJPw gYsrSgG7i3H8Bg1E YBulnbt2Q6AwLeasvFE+ OA08HDRvLC96cPVjgFVk h3fxnYz0PkWgLPCjYSW2 wYfqPFviy8PfGJEz T32syNFg (more content not included)... Normal [facility] Nursing Assessmenton 023 Nursing Assessment [id number] 3#1.00CD:127 [facility] Discharge Instructionson Discharge Instructions [id number] 0#1.00CD:127 Normal [facility] Inpatient Clinical Summaryon 11-26-2022 Inpatient Clinical Summary [address] [id number] Clinical Summary Person Information Name: ROQUE PIERSON/Radha Age: 22 Years : 2000 Sex: Female PCP: Delfin Urbano MD Marital Status: Single Race: White Ethnicity: Non- or Language: Serbian Visit Id: Visit Reason: LT / RT/ LOWER ABD PAIN Speciality: Acuity: Obs Enc Type: OB Triage Med Service: Obstetrics Arrival: 11/25/2022 18:17:16 Discharge: 11/25/2022 22:27:00 Dispo Type: Home (Routine DC) Address: [address] [place] [phone] Provider Notes: Diagnosis: Problems Active (11/25/2022) Smoking Status: Former vaping or e-cigarette use Functional Status: Sensory Deficits: History of Falls: Mobility Assistance Prior to Admission: ADLs: Current Level of Assistance for Self-Care/Mobility: Cognitive Status: Allergies No Known Allergies Laboratory or Other Results This Visit (last charted value for your 11/25/2022 visit) Urinalysis 11/25/2022 6:27 PM UA Bacteria: Trace /HPF UA Bili: Negative UA Color: Yellow UA Glucose: Negative UA Ketones: Negative UA Leuk Est: Trace UA Nitrite: Negative UA Protein: Negative UA RBC: 0-3 /HPF UA Squam Epithelial: 0-2 /HPF UA Urobilinogen: 0.2 EU/dL -- Normal range between ( 0.0 and 1.0 ) UA WBC: 0-5 /HPF UA Spec Desc: Clean Catch UA Blood: Negative UA Clarity: Clear UA pH: 7.5 -- Normal range between ( 5.0 and 9.0 ) UA Spec Grav: 1.010 -- Normal range between ( 1.005 and 1.030 ) Measurements: Height: 175.26 cm Weight: 72.3 kg Blood Pressure: 108 mmHg / 56 mmHg BMI: 23.54 kg/m2 Procedures No Procedures Documented Immunizations No Immunizations Documented This Visit Final Med List: amoxicillin 500 Milligram. fluconazole (fluconazole 50 mg oral tablet) 1 Tablets By Mouth every day for 7 Days. metoclopramide (Reglan 10 mg Tab) 1 Tablets By Mouth every 6 hours. Refills: 0. ondansetron (Zofran ODT 4 mg Tab-Dis) 1 Tablets By Mouth every 6 hours as needed Nausea/Vomiting. Refills: 0. promethazine (promethazine 12.5 mg oral tablet) 1 Tablets By Mouth every 8 hours as needed as needed for nausea/vomiting. Refills: 0. Care Team Members: Attending Physician: Shawn Wilson MD Consulting Physician: Referring Physician: Follow up: With: Address: When: Your doctor in [place] [phone] In 3 days 11/28/2022 Comments: Call for any problems. Call for fever > 100.5 F Call for severe abdominal pain Call physician for heavy vaginal bleeding Call physician if symptoms worsen Call Dr[facility] to be seen in 2-3 days. Make sure to that the belly band is placed on tightly. Wear belly band when doing physical activity, while up and moving or at work. May take Tylenol for pain relief. Patient Education Information: Round Ligament Pain; Morning Sickness, Jnlu-iv-Bbtu; Second Trimester of , Ofru-jo-Gytt; Abdominal Pain During , Nuaa-cm-Goyi Normal [facility] Inpatient Patient Summaryon 11-26-2022 Inpatient Patient Summary [address] [id number] Patient Discharge Instructions PERSON INFORMATION Name: ROQUE PIERSON Date of : 2000 Current Date: 11/25/2022 23:14:36 PHYSICIANS Admitting Physician: Shawn Wilson MD Primary Care Physician: Delfin Urbano MD PCP Comment: Discharge Diagnosis: Condition at Discharge: Improved ROQUE PIERSON has been given the following list of follow-up instructions, prescriptions, and patient education materials: PATIENT FOLLOW-UP INFORMATION Diet: Activity: Wound Care Instructions: Remove Your Dressing IN: Days Call Your Doctor For: IF UNABLE TO CONTACT YOUR PHYSICIAN AND YOU FEEL IT IS AN EMERGENCY, GO TO THE NEAREST EMERGENCY ROOM OR CALL 911 Home Treatment: Devices/Equipment: Special Services: Additional Instructions: Physician to provide the following pending test results: None Follow up: With: Address: When: Your doctor in [place] [phone] In 3 days 11/28/2022 Comments: Call for any problems. Call for fever > 100.5 F Call for severe abdominal pain Call physician for heavy vaginal bleeding Call physician if symptoms worsen Call Dr. Cro[facility] to be seen in 2-3 days. Make sure to that the belly band is placed on tightly. Wear belly band when doing physical activity, while up and moving or at work. May take Tylenol for pain relief. In the event that this physician does not participate in your insurance network, please consult with your insurance company to find a nearby participating provider. Comment: DANGELO Bhandari SABRINA M, have received the attached patient education materials/instructio ns and have verbalized understanding. Patient Signature Date Clinican/Nurse Signature Date MEDICATION LIST Medications to Continue with No Changes Other Medications amoxicillin 500 Milligram. Last Dose: Next Dose: fluconazole (fluconazole 50 mg oral tablet) 1 Tablets By Mouth every day for 7 Days. Last Dose: Next Dose: metoclopramide (Reglan 10 mg Tab) 1 Tablets By Mouth every 6 hours. Refills: 0. Last Dose: Next Dose: ondansetron (Zofran ODT 4 mg Tab-Dis) 1 Tablets By Mouth every 6 hours as needed Nausea/Vomiting. Refills: 0. Last Dose: Next Dose: promethazine (promethazine 12.5 mg oral tablet) 1 Tablets By Mouth every 8 hours as needed as needed for nausea/vomiting. Refills: 0. Last Dose: Next Dose: Pharmacy Information: [facility] PATIENT EDUCATION INFORMATION Instructions: Round Ligament Pain The round ligament is a cord of muscle and tissue that helps support the uterus. It can become a source of pain during if it becomes stretched or twisted as the baby grows. The pain usually begins in the second trimester (13?28 weeks) of , and it can come and go until the baby is delivered. It is not a serious problem, and it does not cause harm to the baby. Round ligament pain is usually a short, sharp, and pinching pain, but it can also be a dull, lingering, and aching pain. The pain is felt in the lower side of the abdomen or in the groin. It usually starts deep in the groin and moves up to the outside of the hip area. The pain may occur when you: ? Suddenly change position, such as quickly going from a sitting to standing position. ? Roll over in bed. ? Cough or sneeze. ? Do physical activity. Follow these instructions at home: ? Watch your condition for any changes. ? When the pain starts, relax. Then try any of these methods to help with the pain: ? Sitting down. ? Flexing your knees up to your abdomen. ? Lying on your side with one pillow under your abdomen and another pillow between your legs. ? Sitting in a warm bath for 15?20 minutes or until the pain goes away. ? Take cgqa-ott-quugqif and prescription medicines only as told by your health care provider. ? Move slowly when you sit down or stand up. ? Avoid long walks if they cause pain. ? Stop or reduce your physical activities if they cause pain. ? Keep all follow-up visits as told by your health care provider. This is important. Contact a health care provider if: ? Your pain does not go away with treatment. ? You feel pain in your back that you did not have before. ? Your medicine is not helping. Get help right away if: ? You have a fever or chills. ? You develop uterine contractions. ? You have vaginal bleeding. ? You have nausea or vomiting. ? You have diarrhea. ? You have pain when you uri (more content not included)... Normal [facility] Insurance Correspondenceon 0 11-26-2022 Insurance Correspondence [id number] 5#1.00CD:127 [facility] Consent for Treatmenton Consent for Treatment [id number] #1.00CD:127 Normal [facility] GetWell Education Videoon DrivenBI Education Video Yes Patient Avoiding Infections in the Hospital Normal [facility] UA With Cult Reflexon 2022 Bacteria LM Ql (Urine sed) TRACE Normal Trace [facility] Comment on above: Performed By: #### 1 [id number] #### [facility] [address] [place] [address] Bilirubin Ql (U) Negative Normal Negative [facility] Comment on above: Performed By: #### 1 [id number] #### [facility] [address] [place] [address] Clarity (U) CLEAR Normal Clear [facility] Comment on above: Performed By: #### 1 [id number] #### [facility] [address] [place] [address] Color (U) YELLOW Normal Yellow [facility] Comment on above: Performed By: #### 1 [id number] #### [facility] [address] [place] [address] Epithelial cells.squamous LM.HPF (Urine sed) [#/Area] 0-2 Normal 0-2 [facility] Comment on above: Performed By: #### 1 [id number] #### [facility] [address] [place] [address] Glucose Test strip (U) [Mass/Vol] Negative Normal Negative [facility] Comment on above: Performed By: #### 1 [id number] #### [facility] [address] [place] [address] Hemoglobin Ql (U) Negative Normal Negative [facility] Comment on above: Performed By: #### 1 [id number] #### [facility] [address] [place] [address] Ketones (U) [Mass/Vol] Negative Normal Negative [facility] Comment on above: Performed By: #### 1 [id number] #### [facility] [address] [place] [address] [place].plasma/Lithiu m.RBC (Bld) [Mass ratio] 0-3 Normal 0-3 [facility] Comment on above: Performed By: #### 1 [id number] #### [facility] [address] [place] [address] Nitrite Ql (U) Negative Normal Negative [facility] Comment on above: Performed By: #### 1 [id number] #### [facility] [address] [place] [address] pH (U) 7.5 [pH] Invalid Interpretation Code 5.0-9.0 [facility] Comment on above: Performed By: #### 1 [id number] #### [facility] [address] [place] [address] Protein (U) [Mass/Vol] Negative Normal Negative [facility] Comment on above: Performed By: #### 1 [id number] #### [facility] [address] [place] [address] Specific gravity (U) [Rel density] 1.010 Invalid Interpretation Code 1.005-1.030 [facility] Comment on above: Performed By: #### 1 [id number] #### [facility] [address] [place] [address] Type of Urine collection method Clean Catch Normal [facility] Comment on above: Performed By: #### 1 [id number] #### [facility] [address] [place] [address] Urobilinogen Qn (U) 0.2 {Andrea'U}/dL Normal 0.0-1.0 [facility] Comment on above: Performed By: #### 1 [id number] #### [facility] [address] [place] [address] WBC Auto Ql (U) TRACE Abnormal Negative [facility] Comment on above: Performed By: #### 1 [id number] #### [facility] [address] [place] [address] WBC LM.HPF (Urine sed) [#/Area] 0-5 Normal 0-5 [facility] Comment on above: Performed By: #### 1 [id number] #### [facility] [address] [place] [address] URINALYSISOrdered By: Davidson Watson on 11-25-2022 Bacteria LM Ql (Urine sed) Trace /HPF Normal Trace/HPF [facility] UA Auto SS Bilirubin Ql (U) Negative (11/25/22 6:27 PM) Normal Negative [facility] UA Auto SS Clarity (U) Clear (11/25/22 6:27 PM) Normal Clear [facility] UA Auto SS Color (U) Yellow (11/25/22 6:27 PM) Normal Yellow [facility] UA Auto SS Epithelial cells.squamous LM.HPF (Urine sed) [#/Area] 0-2 /HPF Normal 0-2/HPF [facility] UA Aut o SS Glucose Test strip (U) [Mass/Vol] Negative (11/25/22 6:27 PM) Normal Negative [facility] UA Auto SS Hemoglobin Ql (U) Negative (11/25/22 6:27 PM) Normal Negative [facility] UA Auto SS Ketones (U) [Mass/Vol] Negative (11/25/22 6:27 PM) Normal Negative [facility] UA Auto SS [place].plasma/Lithiu m.RBC (Bld) [Mass ratio] 0-3 /HPF Normal 0-3/HPF [facility] UA Auto SS Nitrite Ql (U) Negative (11/25/22 6:27 PM) Normal Negative [facility] UA Auto SS pH (U) 7.5 *NA* (11/25/22 6:27 PM) Invalid Interpretation Code 5.0 - 9.0 [facility] UA Auto SS Protein (U) [Mass/Vol] Negative (11/25/22 6:27 PM) Normal Negative [facility] UA Auto SS Specific gravity (U) [Rel density] 1.010 *NA* (11/25/22 6:27 PM) Invalid Interpretation Code 1.005 - 1.030 [facility] UA Auto SS UA Spec Desc Clean Catch (11/25/22 6:27 PM) Normal [facility] [place] Auto SS Urobilinogen Qn (U) 0.6408384 {Andrea'U}/dL Normal 0.0 - 1.0 EU/dL [facility] UA Auto SS WBC Auto Ql (U) Trace *ABN* (11/25/22 6:27 PM) Invalid Interpretation Code Negative [facility] UA Auto SS WBC LM.HPF (Urine sed) [#/Area] 0-5 /HPF Normal 0-5/HPF [facility] [place] Auto SS PAP ACOG PANEL 2: 21 to 29on 11-14-2022 . . Normal [facility] Comment on above: Performed By: #### C T/NGNA #### [facility] [address] [place] [address] Dr. Tasha Whalen Age Gdln ACOG Testing 21-29 Normal [facility] Comment on above: Performed By: #### C T/NGNA #### [facility] [address] [address] [address] Tasha Whalen DIAGNOSIS: Comment Normal [facility] Comment on above: Result Comment: NEGA TIVE FOR INTRAEPITHELIAL LESION OR MALIGNANCY. FUNGAL ORGANISMS MORPHOLOGICALLY CONSISTENT WITH DYLAN SPECIES ARE PRESENT. Performed By: #### C T/NGNA #### [facility] [address] [place] [address] Dr. Tasha Whalen Methodology: Comment Normal [facility] Comment on above: Result Comment: This liquid based ThinPrep(R) pap test was screened with the use of an image guided system. Performed By: #### C T/NGNA #### [facility] [address] [place] [address] Dr. Tasha Whalen Note: Comment Normal [facility] Comment on above: Result Comment: The Pap smear is a screening test designed to aid in the detection of premalignant and malignant conditions of the uterine cervix. It is not a diagnostic procedure and should not be used as the sole means of detecting cervical cancer. Both false-positive and false-negative reports do occur. . Performed By: #### C T/NGNA #### [facility] [address] [place] [address] Dr. Tasha Whalen Performed by: Comment Normal [facility] Comment on above: Result Comment: Emma Jama Assistant Office Manager (ASCP) Performed By: #### C T/NGNA #### [facility] [address] [place] [address] Dr. Tasha Whalen Reflex Criteria: Comment Normal [facility] Comment on above: Result Comment: The HPV DNA reflex criteria were not met with this specimen result therefore, no HPV testing was performed. . Performed By: #### C T/NGNA #### [facility] [address] [place] [address] Dr. Tasha Whalen Specimen adequacy: Comment Normal [facility] Comment on above: Result Comment: Sati sfactory for evaluation. Endocervical and/or squamous metaplastic cells (endocervical component) are present. Performed By: #### C T/NGNA #### [facility] [address] [place] [address] Dr. Tasha Whalen CHLAMYDIA/GONOCOCCUS CATRINA (SW AB/URINE/PAPon 11-12-2022 Chlamydia trachomatis, CATRINA Negative Normal Negative [facility] Comment on above: Performed By: #### C T/NGNA #### [facility] [address] [place] [address] Dr. Tasha Whalen Neisseria gonorrhoeae, CATRINA Negative Normal Negative [facility] Comment on above: Performed By: #### C T/NGNA #### [facility] [address] [place] [address] Dr. Tasha Whalen VAGINITIS/VAGINOSIS DNA PROB Dell 11-09-2022 Dylan species Positive Abnormal Negative [facility] Comment on above: Performed By: #### V AGINT #### [facility] [address] [place] [address] Dr. Tasha Whalen Gardnerella vaginalis Negative Normal Negative [facility] Comment on above: Performed By: #### V AGINT #### [facility] [address] [place] [address] Dr. Tasha Whalen Trichomonas vaginalis Negative Normal Negative [facility] Comment on above: Performed By: #### V AGINT #### [facility] [address] [place] [address] Dr. Tasha Whalen HEP B SURFACE ANTIGEN SCREEN on 10-05-2022 HBsAg Screen Negative Normal Negative [facility] Comment on above: Performed By: #### H BSANS #### [facility] [address] [place] [address] Dr. Tasha Whalen HEPATITIS C VIRUS AB W/ REFL EX QUANTon 10-05-2022 HCV AB 0.1 s/co ratio Normal 0.0-0.9 [facility] Comment on above: Performed By: #### H CVPCRR #### [facility] [address] [place] [address] Dr. Tasha Whalen Interpretation: Comment Normal [facility] Comment on above: Result Comment: Nega tive Not infected with HCV, unless recent infection is suspected or other evidence exists to indicate HCV infection. Performed By: #### H CVPCRR #### [facility] [address] [place] [address] Dr. Tasha Whalen HIV 1 AND 2 WITH REFLEXon HIV Screen 4th Generation wRfx Non-Reactive Normal Non Reactive [facility] Comment on above: Result Comment: HIV Negative HIV-1/HIV-2 antibodies and HIV-1 p24 antigen were NOT detected. There is no laboratory evidence of HIV infection. Performed By: #### H IV12 #### [facility] [address] [place] [address] Dr. Tasha Whalen RPR QUANTon 10-05-2022 Rapid Plasma Reagin, Quant Non-Reactive Normal NonRea<1:1 [facility] Comment on above: Result Comment: Plea se Note: This test does not meet current guidelines for screening and diagnosis of syphilis. This test is intended for following treatment response in patients being treated for syphilis infection. To screen for syphilis infection, a reflex cascade that includes both RPR and a treponema-specific assay should be utilized, such as Treponema pallidum (Syphilis) Screening [place] (736005) or Rapid Plasma Reagin (RPR) Test With Reflex to Quantitative RPR and Confirmatory Treponema pallidum Antibodies (199660). Performed By: #### C T/NGNA #### [facility] [address] [place] [address] Dr. Tasha Whalen RUBELLA AB IGGon 10-05-2022 Rubella Antibodies, IgG 3.71 index Normal Immune >0.99 [facility] Comment on above: Result Comment: Non- immune <0.90 Equivocal 0.90 - 0.99 Immune >0.99 Performed By: #### R UBIGG #### [facility] [address] [place] [address] Dr. Tasha Whalen CBC AUTO DIFFon 10-04-2022 BASO # 0.0 103/ul Normal 0.0-0.1 [facility] Comment on above: Performed By: #### H IV12 #### [facility] [address] [place] [address] Dr. Tasha Whalen Basophils/100 WBC (Bld) 0.5 % Normal 0.2-2.0 [facility] Comment on above: Performed By: #### H IV12 #### [facility] [address] [place] [address] Dr. Tasha Whalen EO # 0.1 103/ul Normal 0.0-0.7 The [facility] Comment on above: Performed By: #### H IV12 #### [facility] [address] [place] [address] Dr. Tasha Whalen Eosinophils/100 WBC (Bld) 0.8 % Critically low 0.9-7.0 [facility] Comment on above: Performed By: #### H IV12 #### [facility] [address] [address] [address] Tasha Whalen Erythrocyte distribution width (RBC) [Ratio] 12.5 % Normal 11.0-15.0 [facility] Comment on above: Performed By: #### H IV12 #### [facility] [address] [place] [address] Dr. Tasha Whalen Hematocrit (Bld) [Volume fraction] 39.2 % Normal 36.0-48.0 [facility] Comment on above: Performed By: #### H IV12 #### [facility] [address] [place] [address] Dr. Tasha Whalen Hemoglobin (Bld) [Mass/Vol] 13.5 g/dL Normal 12.0-16.0 [facility] Comment on above: Performed By: #### H IV12 #### [facility] [address] [place] [address] Dr. Tasha Whalen IG # 0.04 10e3/ul Critically high 0.00-0.03 [facility] Comment on above: Performed By: #### H IV12 #### [facility] [address] [place] [address] Dr. Tasha Whalen IG % 0.5 % Normal 0.0-0.5 [facility] Comment on above: Performed By: #### H IV12 #### [facility] [address] [place] [address] Dr. Tasha Whalen LYMPH # 1.6 103/ul Normal 1.2-3.8 [facility] Comment on above: Performed By: #### H IV12 #### [facility] [address] [place] [address] Dr. Tasha Whalen Lymphocytes/100 WBC (Bld) 18.5 % Critically low 20.5-60.0 [facility] Comment on above: Performed By: #### H IV12 #### [facility] [address] [place] [address] Dr. Tasha Whalen MANUAL DIFF REQ NO Normal [facility] Comment on above: Performed By: #### H IV12 #### [facility] [address] [place] [address] Dr. Tasha Whalen MCH (RBC) [Entitic mass] 29.6 pg Normal 26.7-34.0 The [facility] Comment on above: Performed By: #### H IV12 #### [facility] [address] [place] [address] Dr. Tasha Whalen MCHC (RBC) [Mass/Vol] 34.4 g/dL Normal 29.9-35.2 [facility] Comment on above: Performed By: #### H IV12 #### [facility] [address] [place] [address] Dr. Tasha Whalen MCV (RBC) [Entitic vol] 86.0 fL Normal 81.0-99.0 [facility] Comment on above: Performed By: #### H IV12 #### [facility] [address] [place] [address] Dr. Tasha Whalen MONO # 0.4 103/ul Normal 0.3-0.8 The [facility] Comment on above: Performed By: #### H IV12 #### [facility] [address] [place] [address] Dr. Tasha Whalen Monocytes/100 WBC (Bld) 4.8 % Normal 1.7-12.0 [facility] Comment on above: Performed By: #### H IV12 #### [facility] [address] [place] [address] Dr. Tasha Whalen NEUT # 6.3 103/ul Normal 1.4-6.5 The [facility] Comment on above: Performed By: #### H IV12 #### [facility] [address] [place] [address] Dr. Tasha Whalen Neutrophils/100 WBC (Bld) 74.9 % Normal 43.0-75.0 [facility] Comment on above: Performed By: #### H IV12 #### [facility] [address] [place] [address] Dr. Tasha Whalen Platelet mean volume (Bld) [Entitic vol] 10.0 fL Normal 9.5-13.5 The [facility] Comment on above: Performed By: #### H IV12 #### [facility] [address] [address] [address] Tasha Whalen PLT 290 103/ul Normal 150-450 [facility] Comment on above: Performed By: #### H IV12 #### [facility] [address] [place] [address] Dr. Tasha Whalen RBC 4.56 106/ul Normal 4.20-5.40 [facility] Comment on above: Performed By: #### H IV12 #### [facility] [address] [place] [address] Dr. Tasha Whalen WBC 8.4 103/ul Normal 4.0-11.0 [facility] Comment on above: Performed By: #### H IV12 #### [facility] [address] [place] [address] Dr. Tasha Whalen CULTURE URINEon 10-04-2022 CULTURE URINE Culture Observations: VERY LIGHT GROWTH OF MIXED GENITAL TAYE. NO POTENTIAL PATHOGENS SEEN. Normal [facility] Comment on above: Performed By: #### C T/NGNA #### [facility] [address] [place] [address] Dr. Tasha Whalen GLYCOHEMOGLOBIN A1Con 2022 ADA RECOMMENDATION SEE BELOW Normal [facility] Comment on above: Result Comment: ADA RECOMMENDED LIMIT 4.0 - 6.0 ADA THERAPEUTIC TARGET < 7.0 ACTION SUGGESTED > 7.0 Performed By: #### C T/NGNA #### [facility] [address] [place] [address] Dr. Tasha Whalen Glucose [Mass/Vol] 100 mg/dL Normal [facility] Comment on above: Performed By: #### C T/NGNA #### [facility] [address] [place] [address] Dr. Tasha Whalen HbA1c (Bld) [Mass fraction] 5.1 % Normal 4.5-6.2 [facility] Comment on above: Performed By: #### C T/NGNA #### [facility] [address] [place] [address] Dr. Tasha Whalen CLINT BOX TEST PT SEND OUTo n 10-04-2022 SENT TO REF LAB 10/04/2022 Normal [facility] Comment on above: Performed By: #### C T/NGNA #### [facility] [address] [place] [address] Dr. Tasha Whalen TSHon 10-04-2022 TSH 1.027 uIU/mL Normal 0.358-3.740 [facility] Comment on above: Performed By: #### C T/NGNA #### [facility] [address] [place] [address] Dr. Tasha Whalen TYPE AND SCREENon 10-04-2022 TYPE AND SCREEN Negative Normal [facility] Comment on above: Performed By: #### C T/NGNA #### [facility] [address] [place] [address] Dr. Tasha Whalen US PREG TVon 09-20-2022 US PREG TV EXAMINATION: US PREG TV HISTORY: Missed period COMPARISON: No relevant comparison available. FINDINGS: Contreras intrauterine gestation Gestational sac: 5.25 cm, 11 weeks 1 day CRL: 3.73 cm, 10 weeks 4 days Yolk sac: 3.6 mm Heart rate: 162 bpm Cervix: Closed, 3.2 cm The uterus is normal, anteverted The right ovary is normal in appearance. The left ovary is not seen Clinical age: 10 weeks 1 day Clinical [place]: 04/17/2023 Ultrasound age: 10 weeks 4 days Ultrasound [place]: 04/14/2023 IMPRESSION: Viable contreras intrauterine gestation measuring 10 weeks 4 days Electronically authenticated by: ALFRED BERGERON Date: 2022-09-20 10:40 Normal The [facility] Coding Summary.on 09-09-2022 Coding Summary. [id number] Gh0bWw+PGhlYWQ+PE1FV HDsD39hgDAbuS0BV1uLK E9DBNOCTSWRRY8LOC2kb QP4HTowX2OeyrFg UisceWEkHT38BWm3AUK9 lJdaJLquaM6hnIBsL3y0 JzExTW18mF69JJrwSZTi WmC0AvUiclxwdYNt N6ydJyMxgXXlAqd+PHRh YmxlIHdpZHRoPScxMDAl TpPenJifAF6fXn1pOLRp LWNvbGxhcHNlOiBj g3njMKIvAYriXB6yfMny B2EpvTH6QTZhp3r6Sc26 dHI+KCHmUZT9gRskFQgg t119RrFtu0jwFBE3 eCXpPIfdSTU5U69sa2S0 BKLmEXGbTDE7mLW9bR3n hArimiinI0WtsLIlZwS7 XHZ7jYJuuT6dhCpm dbgqsC0aDgl+U08ROC4U LTWDUT5SJpm5C1EsJgbo dHI+QF10KFIwVA08tEJh aZHml1kvqUu3HkWy QBQkAXR9uBnhIHzkl7Mi GNDtK56acZDwk1R8ANYc tGbufMFbMeSiaSM9qI7m RCgqcuhnu0skipww Acjaw7agst53fK60I12b LZofSSXpVPR3ZUIvZDCf bPeyem5rxV9rLi6+IDxj u6hlw3ubhNz7ViSw JDNlseBnuPuiGMF0b9Er My35C1ZloBmme9GfOmc3 ca74iPOuh4A3tGJ0EIgr LEPsbM8zAIxeJeE2 LWMkLwVfvM67sQZqDFha Fh8cfAzxiMewGE6eRYRg zndrQDGriK6iCOZyyCIo oLdfDT7pQDNwrsuo b079DkOyVQK6NXYjiRLe R3NvsQ1jBqScKTNjGIZn G9JtqCIwBWijS307JSii UtH2ZKKgdsOgG0Dd ZHSrrTikAbG0m7A5Fg6L i7EsmlgtDLS6KYgnEJPe HpQ2YeDbLhK8S1NlWym7 ILNphDixLT7cC4Qj WXXxujgavcjqgGG4BORf RUOxkB88oDGtCJkvBp2r d4Z6l320YQXyPPVgbX46 Hv5bwXkwGOYozOML vI6dzxcuq6ilrqijZwKr SVCsEAx3LWz9GYAsvVmn VpLoJFZ3OdG7QMT4gNFt vD5jeSbjlzbjfE0k Oyc+S73lqA4yKCR1CNV0 jzrhVBJspyTyDD83KS93 L9QoNhyibKInrXK+PGRp ewPurLqfAG9gUeTr q6ntj1NnWCqrB1PpCDOp HVlrFoz6VHGkHMM0cNK5 aR0iTEXoRNcek2S8aCM3 U0XjyjYdkp8ti2bs CNMxQVrgH82vfSZpv7N6 QWOjuTK0MYBpoAcmBmLd eU11Mto+MFVxtZxup5Hy Wjwbs1uvn4jviZo1 IjMwJSIgdmFsaWduPSJ0 v0CrHd33I03qVPeaSWYs TGMvCWElFXHkeNpbvg2i pE8dYf3+PGNvbCB3 rVQ1qR8lVVWeXwR7BZer O985QlZmmXRzWvsgn9dr l5btzLj8DqXtVXQkdiFu fPqvUZK0b8NlRi36 A15aKCnvASOtDICnTQVg WILijOibdy2tfZ9yTv7+ DZ1gn7quzw30hI65lPB+ VOJwAKS0bPvfSRtr QZSigA6lBZnqRaB3VMPu ZqPenY69dZCnXFxzGg7o gEntrGkjIR0zPYOhbyof z565HvCdg6uoQMTr kNUfZNenCLT4W44xv6B9 RNIyJHYzMKA8fMI1xA9d bGlnbjogbGVmdDsgdmVy pXadCOrmDHlfM102 IHRvcDsnPlBhdGllbnQg EtGkODh3Q1MrSam5JXZo aGjfSU8ogZJbLElnSr1n cWktrJxjMX3zRWFv qhwiw323HgYwv2reWVMr nALqFFfeJEP1C79zs1C4 OBTfGZIzPUQ8cGC8xT1n bGlnbjogbGVmdDsg adDjzFvcEBfqRDfzD621 IHRvcDsnPkJpcnRoIERh uJK5FG01IQ11eRJer2U5 fGP4J0KbEOJqziws mzhtiZF4VSQeHQPbyH53 Io1jvVsqRl2kQIPlLXP3 LVUitAKaR2UieH4qSmQz YEMwYLLdJ6JhlHWd MRsuM505PAyzErX4AYLu woSgV6IzXCFcwTtnVnB9 d8T0Zj3NN3K1VC75PX79 nHWja2G9oIZ5S8La BQCeeirgecdwcQS8YZZt WMDcoQ86Dj2otCbdLx7y DBUlOLI4NZKltILpG1Id eV9sXkKzLEIeBACb Y2UrxPZeECbrH038IKaw AlL9SWUdtsIlD7HdHOJw qUmbVgG6y5U9Rc3DWUx1 UX70KS98yFCxn0I1 vXH4S7RlCTMbmwnwvarm tYH8OXFnFGLtlW81Rf5i sUljRd5cITGpALZ5UZMg wYGoO1WukG6rInRi NMVtMMCnX8AnpMNaSOec V976GEcyLeO5IUPdyaXi H2NdRNNutNokKjM0c4O5 Th6TSTReJV70LTQ3 hMW2FM94GC22N5YbWnoz dGFibGU+PHRhYmxlIHdp ZHRoPScxMDAlJyBzdHls ME8eKc5wPBWtJSBz sHjzjGFaHxRjh6yjSMGs BEtnJN4cjIcgV0VvpOK6 ZHNen4n3Og18S15lF7Vl dXA+PSNrzXW4vBI7 iK1uUeFiLfG5JRdwN885 TrRqkJKcGsspz0ymg6qz vXb1BnY1DQIeqjJcjOwr EYL2l3AhJh24A05g IHdpZHRoPSIxNSUiIHZh wWjswp1sgV2dUf6+PGNv mSW0nWY4nP9cFgLwJgE8 OJxoJ761JbHcuGYy Qbuaw8coj6uhnNs0OoVj XVZbfxIqtVmtOYS5c2Pi Wi19L9JdvRojr7SkKbr1 wi08xJTwr4R4jKU5 E9SsELZxrolpqQWgbNmc PC0zYAXlouopLUAijF5v LHUeY8k5RnNqTgT5UIls P2AasoH9IXPvoVFu ZFseTJG0H85on5O7WYGp CJLrJJY3dEM7pK4evUcx bjogbGVmdDsgdmVydGlj HPnzMWqaF079XTPf wIcnMEFgmD0rWLQtfIJf cFzhVD8aTZQqrbzsOr7Y WDMBPEKRAJVIDYHYRE3V YE84E0CiNvd2XIRy xJbsON3whWZqIOmpHp7a pAaczLmtRT3qMLEpvbpd DBRvzR1bPHAfuWBlpAqx IP7kWLSfumebd727 UiPeSLP3GAEqsAYiT0Zm eL1lGfFdSGKiNTPkW7Lz hVVjXXmxI510LXgaUwO8 OASpjcKpO9QvYVBj jDzzCsF8d5I5Ih5qBA9s AC7eQQEwQC75AB88hCFi r3B6sLM6O2XoZVBkubih pvbmlDU2IXBnDJZj yT10iWKhUSowVi8tv2Q6 n258RTLeULJfrM23Po7m rVdoKAQwoFZRfT4acnka v4erentyPcLzFPQe ZYi2JKi6QHHsgSylMkFr XBY5XsG1LDM9oANswU7p mHgrwwbhsG0vWyw+MjEg WGItqfJ2B2MuUri5 CUWgmMikXG4dyYHbLNdm Cu2vzJodlKsdBA9tXDId crrnHIXerH6sMFSrtADk ePzqRZ0hVNCxbcfi n569QqUjBLS9EOQwzTDt U8QxkR7wJvMbSQSqQBKj P5VwkXGbCUauD536DEfg KgC4JESwlvUgI5My WQCmwGswRsZ0t0A6Au3V DO4fnNL7H5RaYgx8TQMk iEzoQC3xuANsCGppOi0u pVedqDopKY6qEYUc jojiSXFaqX5pUUPvkLCu hWnoOT0lQGBuncftk290 KhVaVYP0DQDltMQvY0Hu gZ0bDeAbTZGwDLWh M3UdvAIaAPyqO762UKgf TvI5YBAyjgAuU4PgCLMu yLmeLpN5d9S0Qs5RdHTe C4OgA7i7M1NqDnrx dHI+TG80ESWmJU39rENq fXTeh8gzgHw7FeYtZGXw TDC3vIfcAKjzi5YwGWHp J85ztILha7B7PNXj xMkbxDViVkIxeTW2xS7o TIcwfdzvm4vgfsphAgkz o8kltf52rO91O42cXTed ZHRoPSIzMCUiIHZh hQvtha6rsT2zLa1+PGNv aMB9kEJ2kV0bSoNrKhE6 BKwfC066DaFyeGMeMlgr w0yiz6lzqMu8GuFd VCFcctDhmOwtFXR8r3Qx Uh71Q18fEJqhAYUgYHKc BIRfZBWgxFbkwd5peV5b Ii8+FU3ae3yxfn05 nG06sRV+AMSjJOO2tOgg RZpsBMZulA5pSMzeSxK7 JSTdJdJzyX47eRWiFXlf Af2daJuajBeuUG3z BCTdlotii204BySki2hc BUCqiLUvNRewNNQ4C20n x0I9ANRxVESgXOP0dEK5 pB0yoXevhfxsjFEw dDsgdmVydGljYWwtYWxp R456MYHftSweVgXdgIFs C0eztvRVRM3iPprddYA+ EHCbFOG5bXhmYAnj CURxtU7eCMKwC4c8XyDn CoS4TLniK9MhvcK6DVAz pDCfOMUxoMSFlI7buklg p2jioiydUvBcMCHi GEx1XWz8NJDwcSgjYyDw USD9LzD4DVC9cNEwxV8k bUhggoaveI6kIse+RklO OjwvdGQ+PHRkIHN0 qUpdDScuEWIeiV5zVBZi V1j7GoQvZpP1AAxqQ9Ly mfI2KSQzhTRgJQXmzSGN pD7eskraf6kphzsc OzKmWJYgYXy2QZw9IRNx tSmbXsEqVMZ1EcD3RMV4 uFTstE2eaNeuyorvpN0t Oyc+TVJOOjwvdGQ+ UIMuXBT1hAvhWIkfTVNy iA4wLFKkC7p3HsLdNdP0 VIozI9EwtfN8NJVlpOLd XBUqxMVPyP5opvqw m4rfvesrDbRqXNGqJDg4 XRh2HMSwlOdmNvEvWAK4 TmU2KCK5rHGfwB5ydWpx cfjiuN5gFbk+UGF5 MJO0QS09FN56F3YtXshz dGFibGU+PHRhYmxlIHdp ZHRoPScxMDAlJyBzdHls LU5yPy0iRXWhHEVw bGxh (more content not included)... Normal [facility] Auto Diffon 09-08-2022 Basophils/100 WBC (Bld) 0.7 % Normal 0.0-2.0 [facility] Comment on above: Order Comment: Order Added by Discern Expert. Performed By: #### 2 390831, 8451273, 3712940, 7739109, 08942133, 1883609, 9542696 ####[address] [place] [address] Basophils/Leukocytes Auto (Bld) [Pure # fraction] 0.1 E9/L Normal 0.0-0.2 [facility] Comment on above: Order Comment: Order Added by Discern Expert. Performed By: #### 2 981838, 9822518, 4458522, 0055872, 90550190, 7256465, 6509232 ####[address] [place] [address] Eosinophils/100 WBC (Bld) 1.3 % Normal 0.0-8.0 [facility] Comment on above: Order Comment: Order Added by Discern Expert. Performed By: #### 2 071300, 6256221, 4347754, 6132527, 22070534, 8879545, 5827080 ####[address] [address] Eosinophils/Leukocyte s Auto (Bld) [Pure # fraction] 0.1 E9/L Normal 0.0-0.5 [facility] Comment on above: Order Comment: Order Added by Discern Expert. Performed By: #### 2 313061, 6956295, 8704636, 6829691, 79877870, 3064244, 0392629 ####[address] [address] Lymphocytes/100 WBC (Bld) 22.3 % Normal 14.0-50.0 [facility] Comment on above: Order Comment: Order Added by Ally Expert. Performed By: #### 2 035494, 5055300, 3757379, 5166817, 67172572, 7772941, 4229601 ####[address] [place] [address] Lymphocytes/Leukocyte s Auto (Bld) [Pure # fraction] 2.2 E9/L Normal 1.0-4.0 [facility] Comment on above: Order Comment: Order Added by Ally Expert. Performed By: #### 2 628609, 2485179, 6115108, 7080981, 27871710, 0960231, 7042391 ####[facility] [address] [place] [address] Monocytes/100 WBC (Bld) 7.4 % Normal 4.0-14.0 [facility] Comment on above: Order Comment: Order Added by Discern Expert. Performed By: #### 2 975793, 9565914, 6984039, 8948101, 15133509, 1579764, 0626628 ####[facility] [address] [place] [address] Monocytes/Leukocytes Auto (Bld) [Pure # fraction] 0.7 E9/L Normal 0.2-1.0 [facility] Comment on above: Order Comment: Order Added by Ally Expert. Performed By: #### 2 751878, 6961969, 5669770, 8399792, 46950688, 9138899, 6304812 ####[facility] [address] [place] [address] Neutrophils/100 WBC (Bld) 68.3 % Normal 36.0-75.0 [facility] Comment on above: Order Comment: Order Added by Ally Expert. Performed By: #### 2 899171, 3238107, 7069733, 2039620, 14037282, 3220784, 6016897 ####[facility] [address] [place] [address] Neutrophils/Leukocyte s Auto (Bld) [Pure # fraction] 6.7 E9/L Normal 2.0-7.5 [facility] Comment on above: Order Comment: Order Added by Ally Expert. Performed By: #### 2 016752, 7153583, 1344859, 4989408, 51162326, 9808090, 6341172 ####[facility] [address] [place] [address] BMPon 09-08-2022 Creatinine [Mass/Vol] 0.5 mg/dL Normal 0.5-1.3 [facility] Comment on above: Performed By: #### 2 992378, 5602348, 0281446, 8134185, 62310670, 9272722, 3181430 ####[facility] [address] [place] [address] Urea nitrogen [Mass/Vol] 8 mg/dL Normal 5-21 [facility] Comment on above: Performed By: #### 2 259594, 0742179, 1471254, 3003779, 49206363, 0550045, 3927234 ####[facility] [address] [place] [address] Urea nitrogen/Creatinine [Mass ratio] 16 No Units Normal 10-20 [facility] Comment on above: Performed By: #### 2 730463, 0035740, 6049323, 5259472, 06915884, 3333153, 3996346 ####[facility] [address] [place] [address] Anion gap [Moles/Vol] 12 mmol/L Normal 6-16 [facility] Comment on above: Performed By: #### 2 100164, 2176234, 2170662, 1338482, 20974655, 2385073, 3522022 ####[facility] [address] [place] [address] Calcium [Mass/Vol] 9.2 mg/dL Normal 8.9-11.1 [facility] Comment on above: Performed By: #### 2 920109, 8850945, 1679559, 1179946, 81916918, 3109443, 1396659 ####[facility] [address] [place] [address] Chloride [Moles/Vol] 103 mmol/L Normal 101-111 [facility] Comment on above: Performed By: #### 2 194732, 2755334, 5945203, 6239967, 23510632, 2609893, 5457712 ####[facility] [address] [place] [address] CO2 [Moles/Vol] 22 mmol/L Normal 21-31 [facility] Comment on above: Performed By: #### 2 568778, 9007792, 0419041, 1584939, 64733833, 9695293, 6736076 ####[facility] [address] [place] [address] Glucose [Mass/Vol] 92 mg/dL Normal 55-199 [facility] Comment on above: Result Comment: If t his glucose result represents a fasting glucose, interpretation should refer to the following reference range: 55-99 mg/dL Performed By: #### 2 140527, 9902110, 5827920, 4154743, 51902702, 4905819, 6925472 ####[facility] [address] [place] [address] Potassium [Moles/Vol] 3.3 mmol/L Low 3.5-5.3 [facility] Comment on above: Performed By: #### 2 285007, 4889472, 5750358, 8738721, 02311560, 7871500, 2204970 ####[facility] [address] [place] [address] Sodium [Moles/Vol] 134 mmol/L Low 135-145 [facility] Comment on above: Performed By: #### 2 622374, 1177226, 5525854, 6864520, 79213438, 1479195, 2171992 ####[facility] [address] [place] [address] CBC w/ Auto Diffon 3 Erythrocyte distribution width (RBC) [Ratio] 13.4 % Normal 10.9-14.2 [facility] Comment on above: Performed By: #### 2 027359, 9161502, 1384738, 9725641, 82850313, 2892338, 7115078 ####[facility] [address] [place] [address] Hematocrit (Bld) [Volume fraction] 38.9 % Normal 34.0-46.0 [facility] Comment on above: Performed By: #### 2 692837, 6381438, 8786666, 0312617, 17602359, 8835543, 8344644 ####[address] [address] Hemoglobin (Bld) [Mass/Vol] 13.4 g/dL Normal 12.0-16.0 [facility] Comment on above: Performed By: #### 2 041328, 1410660, 2563887, 3229041, 82006151, 3614540, 3877845 ####[address] [address] MCH (RBC) [Entitic mass] 29.2 pg Normal 27.0-34.0 [facility] Comment on above: Performed By: #### 2 495850, 4305834, 8214921, 5314501, 72639379, 2209269, 3011102 ####[address] MCHC (RBC) [Mass/Vol] 34.3 g/dL Normal 31.4-36.0 [facility] Comment on above: Performed By: #### 2 592410, 8527762, 9115604, 3296036, 66265600, 8256114, 3468111 ####[address] [address] MCV (RBC) [Entitic vol] 84.9 fL Normal 80.0-100.0 [facility] Comment on above: Performed By: #### 2 006096, 2803886, 3499829, 4280098, 61135646, 3254834, 6562928 ####[address] [address] Platelet mean volume (Bld) [Entitic vol] 8.6 fL Normal 6.4-10.8 [facility] Comment on above: Performed By: #### 2 058466, 1121588, 1836961, 5693262, 48474914, 6799991, 7137218 ####[address] [place] [address] Platelets (Bld) [#/Vol] 262.0 E9/L Normal 150.0-500.0 [facility] Comment on above: Performed By: #### 2 120349, 7102252, 4160674, 6632122, 86285493, 9661291, 2249994 ####[facility] [id number] [place] [address] RBC (Bld) [#/Vol] 4.6 E12/L Normal 4.3-5.9 [facility] Comment on above: Performed By: #### 2 379312, 0985928, 4371845, 5615401, 26314902, 0022238, 5194776 ####[facility] [address] [place] [address] WBC corrected for nucl RBC Auto (Bld) [#/Vol] 9.9 E9/L Normal 4.0-11.0 [facility] Comment on above: Performed By: #### 2 738434, 8233155, 4275042, 1460714, 90460850, 4514075, 0649100 ####[facility] [address] [place] [address] Consent for Treatmenton 08-25 Consent for Treatment [id number] #1.00CD:127 Normal [facility] Discharge Instructionson Discharge Instructions [id number] 3#1.00CD:127 Normal [facility] ED Clinical Summaryon 2022 ED Clinical Summary [address] [id number] ED Clinical Summary Person Information Name: ROQUE PIERSON [place] Age: 22 Years : 2000 Sex: Female Language: Serbian PCP: Caryn Aviles MD Marital Status: Single Visit Id: Visit Reason: Abdominal pain; Gestational vomiting; VOMITING Speciality: Acuity: 3 Enc Type: Emergency Med Service: Emergency Arrival: 09/08/2022 01:15:13 Discharge: 09/08/2022 04:05:06 LOS: 000 02:50 Checkin: 09/08/2022 01:15:13 Checkout: 09/08/2022 04:05:06 Dispo Type: Home (Routine DC) EVENTS: Event Name Event Status Request Date/Time Start Date/Time Complete Date/Time Arrive Complete 09/08/2022 01:15:13 09/08/2022 01:15:13 09/08/2022 01:15:13 Document Home Meds Request 09/08/2022 01:15:13 Triage Complete 09/08/2022 01:15:13 09/08/2022 01:24:39 09/08/2022 01:24:39 Dr Exam Complete 09/08/2022 01:18:14 09/08/2022 01:18:14 09/08/2022 01:18:14 Registration Complete 09/08/2022 01:18:14 09/08/2022 01:31:15 09/08/2022 03:52:55 Bed Assign Complete 09/08/2022 01:31:15 09/08/2022 01:31:15 09/08/2022 01:31:15 RN Exam Complete 09/08/2022 01:31:15 09/08/2022 01:55:27 09/08/2022 01:55:27 Meds Admin Request 09/08/2022 01:36:09 Pending Labs Complete 09/08/2022 01:36:09 09/08/2022 03:54:43 Lab Complete 09/08/2022 01:36:09 09/08/2022 03:54:43 Urine Collect Complete 09/08/2022 01:36:09 09/08/2022 03:54:43 Pending Labs Complete 09/08/2022 01:47:28 09/08/2022 01:47:28 09/08/2022 02:17:33 Lab Complete 09/08/2022 01:47:28 09/08/2022 01:47:28 09/08/2022 02:17:33 Pending Labs Complete 09/08/2022 02:02:02 09/08/2022 02:02:02 09/08/2022 02:02:09 Lab Complete 09/08/2022 02:02:02 09/08/2022 02:02:02 09/08/2022 02:02:10 Meds Admin Complete 09/08/2022 02:19:18 09/08/2022 03:38:21 Reg Complete Request 09/08/2022 03:52:55 Reg Bed Request Complete 09/08/2022 03:52:55 09/08/2022 03:52:55 09/08/2022 03:52:55 Discharge Complete 09/08/2022 03:55:08 09/08/2022 04:05:14 09/08/2022 04:05:14 Transfer Complete 09/08/2022 04:05:14 09/08/2022 04:05:14 09/08/2022 04:05:14 ADDRESS: [address] [place] [id number] PHYS DOC NOTES: MEDICAL INFORMATION: Prescriptions Given: New Medications [facility], [address] [place], [place] [id number], [phone] metoclopramide (Reglan 10 mg Tab) 1 Tablets By Mouth every 6 hours. Refills: 0. Medications to Continue with No Changes Other Medications ondansetron (Zofran ODT 4 mg Tab-Dis) 1 Tablets By Mouth every 6 hours as needed Nausea/Vomiting. Refills: 0. promethazine (promethazine 12.5 mg oral tablet) 1 Tablets By Mouth every 8 hours as needed as needed for nausea/vomiting. Refills: 0. PATIENT EDUCATION INFORMATION: Instructions: Hyperemesis Gravidarum Follow up: With: Address: When: Julius CROCKETT [facility], [address] , [place] [address] Business (1) In 3 days 09/11/2022 Comments: 1 every 8 hours as needed for nausea and vomiting. Please follow-up with OB for further evaluation and management. Please return to the ED for any new or worsening symptoms. With: Address: When: Caryn [place] [place] [address] Business (1) In 3 days 09/11/2022 DIAGNOSIS: Nausea/vomiting in Normal [facility] ED Note-Physicianon 09-08-19 ED Note-Physician Basic Information Time Seen: Sissy Shah DO 09/08/2022 01:18 Chief Complaint Vomiting since July when I found out I was . Not able to tolerate food or fluids. Intermittent diarrhea. No fever. 8 weeks 2 days . ABD pain and unable to sleep. History of Present Illness Patient is a 22-year-old female approximately 8 weeks gestation presenting to the ED for evaluation of nausea, vomiting, inability to tolerate food. Patient states symptoms been ongoing since she found out she was in July has been to the ER multiple times. States none of the nausea medications have been helping and she was unable to keep anything down. Patient states she is lost approximately 15 pounds during that time. Denies any fevers, chills, chest pain, shortness of breath, dizziness or lightheadedness. Patient has not yet seen OB but has had 2 ultrasounds showed an intrauterine . Review of Systems General: Denied fever, chills, weight loss HEENT: Denied Congestion, rhinorrhea, sore throat Cardiac: Denied Chest pain, palpitations, dizziness/lightheade dness Respiratory: Denied Dyspnea, cough Abdominal: Denied abdominal pain, diarrhea, constipation, + nausea, vomiting : Denied dysuria, hematuria Extremities: Denied leg swelling, leg pain, calf tenderness Neuro: Denied Focal neurologic deficits, vision changes, difficulty with speech Integumentary: Denied rashes or lesions Physical Exam Vitals & Measurements T: 36.5 ?C(Oral) HR: 91(Peripheral) RR: 18 BP: 108/72 SpO2: 98% HT: 173 cm WT: 72.10 kg BMI: 24.09 General: Well developed, non toxic appearing, no acute distress HEENT: Head atraumatic, Mucosa moist, hearing grossly normal Neck: No JVD, tracheal deviation Cardiac: Regular rate, rhythm, no murmurs, or gallops, 2+ radial pulses Respiratory: Lungs clear to auscultation B/L, normal respiratory effort Abdomen: Soft non tender, no rebound or guarding, no peritoneal signs Extremities: No edema noted in the LE B/L, no tenderness to palpation Neurologic: Alert and oriented, speech clear Skin: No rashes or lesions Psych: Appropriate mood and behavior Medical Decision Making MEDICAL DECISION MAKING Number and Complexity of Problems Differential Diagnosis: [] [facility] Data External documents reviewed: [] My EKG interpretation: [] My CT interpretation: [] My X-ray interpretation: [] My Ultrasound interpretation: [] Decision rules/scores evaluated: [] Discussed with: [] Treatment and Disposition ED Course: Patient is a 22-year-old female presenting to the ED for evaluation of nausea, vomiting. Patient is nontoxic-appearing on arrival, no acute distress. Laboratory evaluation is obtained patient is given Reglan, IV fluids. Patient's laboratory evaluation reveals mild hypokalemia with a potassium of 3.3, ketones in her urine however this is unchanged from previous labs. On reevaluation patient is feeling improved. She is getting a total of 2 L of IV fluids was able to tolerate oral intake. She is given potassium supplementation. Advised to call her OB on Friday for close follow-up. She is given prescription for Reglan for home. She return to the ED for any new or worsening symptoms. Shared decision making: [] Code status: [] Assessment/Plan Nausea/vomiting in (O21.9: Vomiting of , unspecified) Orders: famotidine, 20 mg = 1 tab(s), Oral, Daily, # 14 tab(s), Refills(s) 0 metoclopramide, 10 mg = 2 mL, Injection, IV Push, Once, Stop date 09/08/22 1:35:00 EST, STAT, Start date 09/08/22 1:35:00 EST, 09/08/22 1:35:00 EST metoclopramide, 10 mg = 1 tab(s), Oral, q6hr, # 14 tab(s), Refills(s) 0, Pharmacy: [id number], 173, cm, 09/08/22 1:24:00 EST, Height/Length Dosing, 72.1, kg, 09/08/22 1:24:00 EST, Weight Dosing ondansetron, 4 mg = 1 tab(s), Oral, q8hr, PRN Nausea/Vomiting, # 12 tab(s), Refills(s) 0 potassium chloride, 40 mEq = 2 tab(s), Tab-ER, Oral, Once, Stop date 09/08/22 2:19:00 EST, STAT, Start date 09/08/22 2:19:00 EST, 09/08/22 2:19:00 EST Sodium Chloride 0.9% intravenous solution, 1,000 mL, Soln-IV, IV, Once, Stop date 09/08/22 1:35:00 EST, STAT, Start date 09/08/22 1:35:00 EST, mL/hr, Infuse over 61, minute(s) Sodium Chloride 0.9% intravenous solution 1,000 mL, 1,000 mL, IV, 983.61 mL/hr, for 30 day(s), Stop date 10/08/22 1:34:00 EST, STAT, Start date 09/08/22 1:35:00 EST, 61 minute(s), Total volume (mL): 1,000, 72.1 kg, 1.86, m2 Automated Diff Basic Metabolic Panel CBC w/ Auto Diff eGFR Hepatic Function Panel Lipase Level Magnesium Level UA With Cult Reflex Medications Administered Given Sodium Chloride 0.9% IV Wanda 1000 mL 1,000 mL, 1000 mL, IV metoclopramide 5 mg/mL Inj, 10 mg, IV Push [id number] [F], 1000 mL, IV potassium chloride 20 mEq ER Tab, 40 mEq, Oral Disposition Plan Discharge Prescription List Prescriptions Reglan 10 mg Tab, 10 mg= 1 tab(s), Oral, q6hr Follow-up With When (more content not included)... Normal [facility] Comment on above: Result Comment: Elec tronically Signed By: Sissy Shah DO\.basil\Date and Time Signed: 09/08/22 03:56 EST ED Patient Education Noteon 09-08-2022 ED Patient Education Note Obstetrics and Gynecology Hyperemesis Gravidarum Hyperemesis gravidarum is a severe form of nausea and vomiting that happens during . Hyperemesis is worse than morning sickness. It may cause you to have nausea or vomiting all day for many days. It may keep you from eating and drinking enough food and liquids, which can lead to dehydration, malnutrition, and weight loss. Hyperemesis usually occurs during the first half (the first 20 weeks) of . It often goes away once a woman is in her second half of . However, sometimes hyperemesis continues through an entire . What are the causes? The cause of this condition is not known. It may be related to changes in chemicals (hormones) in the body during , such as the high level of hormone (human chorionic gonadotropin) or the increase in the female sex hormone (estrogen). What are the signs or symptoms? Symptoms of this condition include: ? Nausea that does not go away. ? Vomiting that does not allow you to keep any food down. ? Weight loss. ? Body fluid loss (dehydration). ? Having no desire to eat, or not liking food that you have previously enjoyed. How is this diagnosed? This condition may be diagnosed based on: ? A physical exam. ? Your medical history. ? Your symptoms. ? Blood tests. ? Urine tests. How is this treated? This condition is managed by controlling symptoms. This may include: ? Following an eating plan. This can help lessen nausea and vomiting. ? Taking prescription medicines. An eating plan and medicines are often used together to help control symptoms. If medicines do not help relieve nausea and vomiting, you may need to receive fluids through an IV at the hospital. Follow these instructions at home: Eating and drinking ? Avoid the following: ? Drinking fluids with meals. Try not to drink anything during the 30 minutes before and after your meals. ? Drinking more than 1 cup of fluid at a time. ? Eating foods that trigger your symptoms. These may include spicy foods, coffee, high-fat foods, very sweet foods, and acidic foods. ? Skipping meals. Nausea can be more intense on an empty stomach. If you cannot tolerate food, do not force it. Try sucking on ice chips or other frozen items and make up for missed calories later. ? Lying down within 2 hours after eating. ? Being exposed to environmental triggers. These may include food smells, smoky rooms, closed spaces, rooms with strong smells, warm or humid places, overly loud and noisy rooms, and rooms with motion or flickering lights. Try eating meals in a well-ventilated area that is free of strong smells. ? Quick and sudden changes in your movement. ? Taking iron pills and multivitamins that contain iron. If you take prescription iron pills, do not stop taking them unless your health care provider approves. ? Preparing food. The smell of food can spoil your appetite or trigger nausea. ? To help relieve your symptoms: ? Listen to your body. Everyone is different and has different preferences. Find what works best for you. ? Eat and drink slowly. ? Eat 5?6 small meals daily instead of 3 large meals. Eating small meals and snacks can help you avoid an empty stomach. ? In the morning, before getting out of bed, eat a couple of crackers to avoid moving around on an empty stomach. ? Try eating starchy foods as these are usually tolerated well. Examples include cereal, toast, bread, potatoes, pasta, rice, and pretzels. ? Include at least 1 serving of protein with your meals and snacks. Protein options include lean meats, poultry, seafood, beans, nuts, nut butters, eggs, cheese, and yogurt. ? Try eating a protein-rich snack before bed. Examples of a protein-arnulfo snack include cheese and crackers or a peanut butter sandwich made with 1 slice of whole-wheat bread and 1 tsp (5 g) of peanut butter. ? Eat or suck on things that have damián in them. It may help relieve nausea. Add ? tsp ground damián to hot tea or choose damián tea. ? Try drinking 100% fruit juice or an electrolyte drink. An electrolyte drink contains sodium, potassium, and chloride. ? Drink fluids that are cold, clear, and carbonated or sour. Examples include lemonade, damián janak, lemon?kake soda, ice water, and sparkling water. ? [place] your teeth or use a mouth rinse after meals. ? Talk with your health care provider about starting a supplement of vitamin B6. General instructions ? Take lepc-zga-pgwaeqi and prescription medicines only as told by your health care provider. ? Follow instructions from your health care provider about eating or drinking restrictions. ? Continue to take your vitamins as told by your health care provider. If you are having trouble taking your vitamins, talk with your health care provider about different options. ? Keep all follow-up and pre- () visits as told by your health care provider. This i (more content not included)... Normal [facility] ED Patient Summaryon 023 ED Patient Summary [address] [address] Patient Discharge Instructions Person Information Name: ROQUE PIERSON Age: 22 Years Arrival Date: 09/08/2022 01:15:13 Discharge Diagnosis: Nausea/vomiting in Primary Care Physician: Caryn Aviles MD Provider Information Primary Provider: Sissy Shah DO Advanced Pressroom Foreman:None The exam and treatment you received in the Emergency Department were for an urgent problem and are not intended as complete care. It is important that you follow up with a doctor, nurse practitioner, or physician?s assistant signal maintainer for ongoing care. If your symptoms become worse or you do not improve as expected and you are unable to reach your usual health care provider, you should return to the Emergency Department. We are available 24 hours a day. ROQUE PIERSON has been given the following list of patient education materials, prescriptions and follow-up instructions: Follow-up Instructions: With: Address: When: [facility], [address] [place] [address] [place] [address] [email or web address] (1) In 3 days 09/11/2022 Comments: 1 every 8 hours as needed for nausea and vomiting. Please follow-up with OB for further evaluation and management. Please return to the ED for any new or worsening symptoms. With: Address: When: Caryn Aviles [place] [address] Business (1) In 3 days 09/11/2022 In the event that this physician does not participate in your insurance network, please consult with your insurance company to find a nearby participating provider. Patient Education Materials: Hyperemesis Gravidarum A MESSAGE TO ALL PATIENTS REGARDING OPIOIDS PRESCRIPTION OPIOIDS: WHAT YOU NEED TO KNOW Prescription opioids can be used to help relieve hdrlotva-uf-akwiyc pain and are often prescribed following a surgery or injury, or for certain health conditions. These medications can be an important part of the treatment but also come with serious risks. It is important to work with your healthcare provider to make sure you are getting the safest, most effective care. WHAT ARE THE RISKS AND SIDE EFFECTS OF OPIOID USE? Prescription opioids carry serious risks of addiction and overdose, especially with prolonged use. An opioid overdose, often marked by slowed breathing, can cause sudden . The use of prescription opioids can have a number of side effects as well, even when taken as directed: ? Tolerance?meaning you might need to take more of the medication for the same pain relief ? Physical dependence?meaning you have symptoms of withdrawal when a medication is stopped ? Increased sensitivity to pain ? Constipation ? Nausea, vomiting, and dry mouth ? Sleepiness and dizziness ? Confusion ? Depression ? Low levels of testosterone that can result in lower sex drive, energy, and strength ? Itching and sweating RISKS ARE GREATER WITH: ? History of drug misuse, substance use disorder, or overdose ? Mental health conditions (such as depression or anxiety) ? Sleep apnea ? Older age (65 years and older) ? Avoid alcohol while taking prescription opioids. Also, unless specifically advised by your health care provider, medications to avoid include: ? Benzodiazepines (such as Xanax or Valium) ? Muscle relaxants (such as Soma or Flexeril) ? Hypnotics (such as Ambien or Lunesta) ? Other prescription opioids KNOW YOUR OPTIONS Talk to your health care provider about ways to manage your pain that don?t involve prescription opioids. Some of these options may actually work better and have fewer risks and side effects. Options may include: ? Pain relievers such as acetaminophen, ibuprofen, and naproxen ? Some medication that are also used for depression or seizures ? Physical therapy and exercise ? Cognitive behavioral therapy, a psychological, goal-directed approach, in which patients learn how to modify physical, behavioral, and emotional triggers of pain and stress. IF YOU ARE PRESCRIBED OPIOIDS FOR PAIN: ? Never take opioids in greater amounts or more often than prescribed. ? Follow up with your primary health care provider. o Work together to create a plan on how to manage your pain. o Talk about ways to help manage your pain that don?t involve prescription opioids. o Talk about any and all concerns and side effects. ? Help prevent misuse and abuse o Never sell or share prescription opioids. o Never use another person?s prescription opioids. ? Store prescription opioids in a secure place and out of reach of others (this may include visitors, children, friends, and family). ? Safely dispose of unused prescription opioids: Find your community drug take-back program or your pharmacy mail-back program, or flush them down the toilet, following guidance from the F (more content not included)... Normal [facility] Hep Func Panelon 09-08-2022 Albumin [Mass/Vol] 4.3 g/dL Normal 3.3-5.0 [facility] Comment on above: Performed By: #### 2 129271, 1092114, 4610992, 1815394, 11323862, 0412976, 3127092 ####[facility] [address] [place] [address] Albumin/Globulin (S) [Mass conc ratio] 1.3 Normal 1.1-2.2 [facility] Comment on above: Performed By: #### 2 839483, 7134985, 1660260, 2796508, 01636161, 9112422, 8405656 ####[facility] [address] [place] [address] ALP [Catalytic activity/Vol] 61 Int._Unit/L Normal 21-98 [facility] Comment on above: Performed By: #### 2 483586, 7285919, 5948517, 2940286, 55915774, 1958935, 0982273 ####[facility] [address] [place] [address] ALT No additional P-5'-P [Catalytic activity/Vol] 61 Int._Unit/L High 6-46 [facility] Comment on above: Performed By: #### 2 318876, 3480589, 2066090, 3900169, 05685799, 8398690, 7001982 ####[facility] [address] [place] [address] AST [Catalytic activity/Vol] 48 Int._Unit/L High 5-43 [facility] Comment on above: Performed By: #### 2 477036, 2842658, 8169050, 7963757, 70418251, 0142679, 6722736 ####[facility] [address] [place] [address] Bilirubin [Mass/Vol] 1.1 mg/dL Normal 0.0-1.1 [facility] Comment on above: Performed By: #### 2 215982, 9807627, 1071308, 5966841, 04976104, 5606879, 7456156 ####[facility] [address] [place] [address] Bilirubin.direct [Mass/Vol] 0.3 mg/dL Normal 0.1-0.4 [facility] Comment on above: Performed By: #### 2 512287, 1755247, 3941999, 9280916, 02001725, 3481464, 8173568 ####[facility] [address] [place] [address] Bilirubin.indirect [Mass or moles/Vol] 0.8 mg/dL Normal 0.1-0.9 [facility] Comment on above: Performed By: #### 2 399967, 0507869, 1172343, 6537671, 98545605, 2928623, 3107549 ####[address] [address] Globulin (S) [Mass/Vol] 3.3 g/dL Normal 1.4-4.0 [facility] Comment on above: Performed By: #### 2 297688, 9152168, 6113024, 7928707, 93295493, 0315594, 5100799 ####[address] [address] Protein [Mass/Vol] 7.6 g/dL Normal 6.0-7.8 [facility] Comment on above: Performed By: #### 2 467873, 3151887, 2400496, 3131174, 61254558, 7035073, 6225637 ####[address] [address] Lipase Levelon 09-08-2022 Lipase [Catalytic activity/Vol] 27 U/L Normal 13-58 [facility] Comment on above: Performed By: #### 2 700536, 0877332, 2841425, 4506150, 95731189, 1275939, 4070582 ####[facility] [address] [place] [address] Magnesiumon 09-08-2022 Magnesium [Mass/Vol] 1.9 mg/dL Normal 1.3-2.4 [facility] Comment on above: Performed By: #### 2 812027, 1412172, 7846386, 2351759, 63145044, 8165472, 2901537 ####[facility] [address] [place] [address] UA With Cult Reflexon 2022 Bacteria LM Ql (Urine sed) TRACE Normal Trace [facility] Comment on above: Performed By: #### 2 716187, 6493433, 4117348, 4199541, 26644947, 5070444, 5465254 #### [facility] [address] [place] [address] Bilirubin Ql (U) 1+ Abnormal Negative [facility] Comment on above: Performed By: #### 2 103915, 7214244, 6424863, 2940619, 46613862, 1758971, 4322627 #### [facility] [address] [place] [address] Clarity (U) CLEAR Normal Clear [facility] Comment on above: Performed By: #### 2 793977, 8587329, 1199735, 6765451, 99312628, 5978903, 2724357 #### [facility] [address] [place] [address] Color (U) YELLOW Normal Yellow [facility] Comment on above: Performed By: #### 2 555649, 6063495, 0313157, 3437963, 45453782, 5027967, 2087241 #### [facility] [address] [place] [address] Epithelial cells.squamous LM.HPF (Urine sed) [#/Area] 0-2 Normal 0-2 [facility] Comment on above: Performed By: #### 2 277168, 2285155, 3441960, 4334481, 02577223, 6198474, 5203092 #### [facility] [address] [place] [address] Glucose Test strip (U) [Mass/Vol] Negative Normal Negative [facility] Comment on above: Performed By: #### 2 207743, 7061258, 7998370, 5870906, 56706214, 6934610, 0698984 #### [facility] [address] [place] [id number] Hemoglobin Ql (U) Negative Normal Negative [facility] Comment on above: Performed By: #### 2 858621, 4238949, 9049666, 3681515, 73005532, 2397476, 5067057 #### [facility] [address] [place] [address] Ketones (U) [Mass/Vol] 3+ Abnormal Negative [facility] Comment on above: Performed By: #### 2 579333, 5762751, 5976526, 1468615, 29027667, 9347876, 2032872 #### [facility] [address] [place] [address] [place].plasma/Lithiu m.RBC (Bld) [Mass ratio] 0-3 Normal 0-3 [facility] Comment on above: Performed By: #### 2 843812, 5583211, 2560691, 0423787, 59663346, 2538662, 3261493 #### [facility] [address] [place] [address] Mucus Ql (Urine sed) TRACE Normal Fish [facility] Comment on above: Performed By: #### 2 161976, 0445042, 4787324, 3397698, 37941911, 6256670, 2060162 #### [facility] [address] [place] [address] Nitrite Ql (U) Negative Normal Negative [facility] Comment on above: Performed By: #### 2 948465, 7622375, 6194771, 4842937, 22999381, 0933223, 9744696 #### [facility] [address] [place] [address] pH (U) 6.0 [pH] Invalid Interpretation Code 5.0-9.0 [facility] Comment on above: Performed By: #### 2 626281, 0038421, 8484119, 4397105, 73427195, 8471068, 3403466 #### [facility] [address] [place] [address] Protein (U) [Mass/Vol] TRACE Abnormal Negative [facility] Comment on above: Performed By: #### 2 536634, 9035504, 6213507, 0227433, 95179444, 3252083, 5926808 #### [facility] [address] [place] [address] Specific gravity (U) [Rel density] >=1.030 Invalid Interpretation Code 1.005-1.030 [facility] Comment on above: Performed By: #### 2 817271, 9873380, 0188906, 8251181, 33300623, 7794545, 3151333 #### [facility] [address] [place] [address] Type of Urine collection method Clean Catch Normal [facility] Comment on above: Performed By: #### 2 715094, 9943486, 1666011, 4745783, 28975879, 8046919, 1256565 #### [facility] [address] [place] [address] Urobilinogen Qn (U) 1.0 {Andrea'U}/dL Normal 0.0-1.0 [facility] Comment on above: Performed By: #### 2 992910, 0285977, 5156027, 3284339, 91752187, 5140308, 4873349 #### [facility] [address] [place] [address] WBC Auto Ql (U) Negative Normal Negative [facility] Comment on above: Performed By: #### 2 733748, 6225754, 9081055, 0114381, 22429753, 3217243, 9426267 #### [facility] [address] [place] [address] WBC LM.HPF (Urine sed) [#/Area] 0-5 Normal 0-5 [facility] Comment on above: Performed By: #### 2 839130, 0801106, 6995198, 2370316, 85054931, 5616663, 0249470 #### [facility] [address] [place] [address] eGFRon 09-08-2022 GFR/1.73 sq M.predicted among blacks MDRD (S/P/Bld) [Vol rate/Area] mL/min/{1.73_m2} Normal >=59 [facility] Comment on above: Order Comment: Order added by Discern Expert. Result Comment: eGFR is race adjusted. AA=. Performed By: #### 2 629695, 8704737, 7248558, 3952226, 94368992, 8364214, 7443336 ####[facility] [address] [place] [address] GFR/1.73 sq M.predicted among non-blacks MDRD (S/P/Bld) [Vol rate/Area] mL/min/{1.73_m2} Normal >=59 [facility] Comment on above: Order Comment: Order added by Discern Expert. Result Comment: Electric Motor Tester emil kidney disease could be indicated at eGFR's of less than 60 mL/min/1.73m2. Kidney failure is indicated at less than 15 mL/min/1.73m2. Performed By: #### 2 714798, 3104379, 8909343, 4898874, 67539524, 7131968, 2859821 ####[facility] [address] [place] [address] CBC with Auto Differentialon 09-04-2022 Absolute Eos # 0.20 [facility] Absolute Lymph # 1.70 [facility] Absolute [place] # 0.60 [facility] Basophils (Bld) [#/Vol] 0.10 10*3/uL [facility] Basophils/100 WBC (Bld) 1 % 0 - 2 % [facility] Differential Type YES [facility] Eosinophils/100 WBC (Bld) 2 % 0 - 5 % [facility] Hematocrit (Bld) [Volume fraction] 40.9 % 36 - 46 % [facility] Hemoglobin (Bld) [Mass/Vol] 13.9 g/dL 12.0 - 16.0 g/dL [facility] Interpretation and review of laboratory results Abnormal [facility] Lymphocytes/100 WBC (Bld) 18 % 15 - 40 % [facility] MCH (RBC) [Entitic mass] 29.5 pg 26 - 34 pg [facility] MCHC (RBC) [Mass/Vol] 34.0 g/dL 31 - 37 g/dL B [facility] MCV (RBC) [Entitic vol] 86.9 fL 80 - 100 fL [facility] SYSTEM Monocytes/100 WBC (Bld) 6 % 4 - 8 % [facility] Platelet distribution width (Bld) [Ratio] 13.0 % 12.1 - 15.2 % [facility] Platelets (Bld) [#/Vol] 252 10*3/uL [facility] RBC (Bld) [#/Vol] 4.71 10*6/uL 4.0 - 5.2 m/uL [facility] Segmented neutrophils/100 WBC (Bld) 73 % 47 - 75 % [facility] Segs Absolute 7.20 High [facility] WBC (Bld) [#/Vol] 9.8 10*3/uL [facility] CBC with Diffon 09-04-2022 Abs. Basophil 0.10 k/uL Normal 0.0-0.2 [facility] Comment on above: Performed By: #### B HCG #### [facility] [address] [place] [address] Construction Laborer: Alfred Chiirnos MD Abs.Neutrophil (Seg) 7.20 k/uL High 2.5-7.0 [facility] Comment on above: Performed By: #### B HCG #### [facility] [address], [place] [id number] Construction Laborer: Alfred Chirinos MD Auto Diff Performed YES Normal [facility] Comment on above: Performed By: #### B HCG #### [facility] [address], [place] [id number] Construction Laborer: Alfred Chirinos MD Basophils/100 WBC (Bld) 1 % Normal 0-2 [facility] Comment on above: Performed By: #### B HCG #### [facility] [address] [place] [address] Construction Laborer: Alfred Chirinos MD Eosinophils (Bld) [#/Vol] 0.20 10*3/uL Normal 0.0-0.4 [facility] Comment on above: Performed By: #### B HCG #### [facility] [address] [place] [id number] Construction Laborer: Alfred Chirinos MD Eosinophils/100 WBC (Bld) 2 % Normal 0-5 [facility] Comment on above: Performed By: #### B HCG #### [facility] [address], [place] [id number] Construction Laborer: Alfred Chirinos MD Erythrocyte distribution width (RBC) [Ratio] 13.0 % Normal 12.1-15.2 [facility] Comment on above: Performed By: #### B HCG #### [facility] [address], [place] [id number] Construction Laborer: Alfred Chirinos MD Hematocrit (Bld) [Volume fraction] 40.9 % Normal 36-46 [facility] Comment on above: Performed By: #### B HCG #### [facility] [address], [place] [id number] Construction Laborer: Alfred Chirinos MD Hemoglobin (Bld) [Mass/Vol] 13.9 g/dL Normal 12.0-16.0 [facility] Comment on above: Performed By: #### B HCG #### [facility] [address] [place] [address] Construction Laborer: Alfred Chirinos MD Lymphocytes (Bld) [#/Vol] 1.70 10*3/uL Normal 1.0-4.8 [facility] Comment on above: Performed By: #### B HCG #### [facility] [address] [place] [address] Construction Laborer: Alfred Chirinos MD Lymphocytes/100 WBC (Bld) 18 % Normal 15-40 [facility] Comment on above: Performed By: #### B HCG #### [facility] [address] [place] [address] Construction Laborer: Alfred Chirinos MD MCH (RBC) [Entitic mass] 29.5 pg Normal 26-34 [facility] Comment on above: Performed By: #### B HCG #### [facility] [address] [place] [address] Construction Laborer: Alfred Chirinos MD MCHC (RBC) [Mass/Vol] 34.0 g/dL Normal 31-37 [facility] Comment on above: Performed By: #### B HCG #### [facility] [address] [place] [address] Construction Laborer: Alfred Chirinos MD MCV (RBC) [Entitic vol] 86.9 fL Normal 80-100 [facility] Comment on above: Performed By: #### B HCG #### [facility] [address] [place] [address] Construction Laborer: Alfred Chirinos MD Monocytes (Bld) [#/Vol] 0.60 10*3/uL Normal 0.0-1.0 [facility] Comment on above: Performed By: #### B HCG #### [facility] [address], [place] [id number] Construction Laborer: Alfred Chirinos MD Monocytes/100 WBC (Bld) 6 % Normal 4-8 [facility] Comment on above: Performed By: #### B HCG #### [facility] [address], [place] [id number] Construction Laborer: Alfred Chirinos MD Neutrophil (Seg) 73 % Normal 47-75 [facility] Comment on above: Performed By: #### B HCG #### [facility] [address], [place] [id number] Construction Laborer: Alfred Chirinos MD Platelets (Bld) [#/Vol] 252 10*3/uL Normal 140-450 [facility] Comment on above: Performed By: #### B HCG #### [facility] [address], [place] [id number] Construction Laborer: Alfred Chirinos MD RBC (Bld) [#/Vol] 4.71 10*6/uL Normal 4.0-5.2 [facility] Comment on above: Performed By: #### B HCG #### [facility] [address], [place] [id number] Construction Laborer: Alfred Chirinos MD WBC (Bld) [#/Vol] 9.8 10*3/uL Normal 4.5-13.5 [facility] Comment on above: Performed By: #### B HCG #### [facility] [address], [place] [id number] Construction Laborer: Alfred Chirinos MD [facility] Albumin [Mass/Vol] 4.5 g/dL 3.5 - 5.2 g/dL [facility] ALP (Bld) [Catalytic activity/Vol] 73 U/L 35 - 104 U/L [facility] ALT [Catalytic activity/Vol] 17 U/L 5 - 33 U/L [facility] Anion gap [Moles/Vol] 11 mmol/L 9 - 17 mmol/L [facility] AST [Catalytic activity/Vol] 14 U/L NINF - 32 U/L [facility] Bilirubin [Mass/Vol] 0.4 mg/dL 0.3 - 1 .2 mg/dL [facility] Calcium [Mass/Vol] 9.3 mg/dL 8.6 - 10. 4 mg/dL [facility] Chloride [Moles/Vol] 103 mmol/L 98 - 10 7 mmol/L [facility] CO2 [Moles/Vol] 23 mmol/L 20 - 31 mmol/L [facility] Creatinine [Mass/Vol] 0.47 mg/dL Low 0.50 - 0.90 mg/dL [facility] GFR/1.73 sq M.predicted MDRD (S/P/Bld) [Vol rate/Area] - PINF [facility] Comment on above: Effective May 27, 2022 These results are not intended for use in patients <18 years of age. eGFR results are calculated without a race factor using the 2020 CKD-EPI equation. Careful clinical correlation is recommended, particularly when comparing to results calculated using previous equations. The CKD-EPI equation is less accurate in patients with extremes of muscle mass, extra-renal metabolism of creatine, excessive creatine ingestion, or following therapy that affects renal tubular secretion. Glucose [Mass/Vol] 103 mg/dL High 70 - 99 mg/dL [facility] Interpretation and review of laboratory results Abnormal [facility] Potassium [Moles/Vol] 3.8 mmol/L 3.7 - 5.3 mmol/L [facility] Protein [Mass/Vol] 7.3 g/dL 6.4 - 8.3 g/dL [facility] Sodium [Moles/Vol] 137 mmol/L 135 - 144 mmol/L [facility] Urea nitrogen (BldV) [Mass/Vol] 4 mg/dL Low 6 - 20 mg/dL [facility] Urea nitrogen/Creatinine (Bld) [Mass ratio] 9 9 - 20 [facility] Coding Summary.on 09-04-2022 Coding Summary. [id number] Gh0bWw+PGhlYWQ+PE1FV LCpB81heQOgaF8KG5tWU I3MHCYKVLJOZK9VAE3pm MW1JDesF8GfpwBb TknisLRaWE24ZKo7GEH9 yIgmEUmcuC6ydNVgL4x1 MtNrLR80yQ78JWkeIJAt ErW7SfZxpunwdBYl C8gqWiYyqZUiHei+PHRh YmxlIHdpZHRoPScxMDAl GfWrrEszHH8uLx6tVJYb LWNvbGxhcHNlOiBj k2ugFJYwGXojZI3epMdj E6BybNX9YRUfq7c2Dj12 dHI+NJJnBVE2bHjzWKps q229GsXjl3reAVR3 cHCoWShoHZP0Q32ds8P9 KQNxSRMgZLR4fGG5yG0t uBvsrimsD3UklNJlSmE2 GBA4sGRahS9ytJpd cdqfjG5pQyx+U85LTC7F VAKTTF8XZaa7F1RtYjuh dHI+KK26MNZyYK14eZVb aBLup9uolFl7DhSd JYSnCSP8mAnkNIqqp9Qr FINwA24uoVMaz4O1XFDu eRsziEXxUkIjoUI8lJ9j DKajwdiyi3kskjxp Adwll5maqg09pX21G54q ELqwOIKaGSQ8UFKuJSAs eMetzj7hlI8qCw9+IDxj z9lyh0dhiHr1TmYy ILTieqVbsSmdYPB2n5Rb Hq69P9XlrDhkb2JmUrv6 xm46tIScn0D6fUM9PLgo WVXovR9nYYyyIkI4 LDVgKwAgrO34aWXlYAro Pb9igFckrCvaND5wWYSf bpzjMDTuuH4lHUNjxUYd rLenRH8dTFXjtztr e421BvPgFKP0KJNszERm D8KueO0zFrXgQGGyETMw V1KvgMYcHTuaX758JFge AkK9XZTrvzYdP4Ro ANUvgUpvCyD5l2W9Hf8R y5XypsdnDIE5QVbkHSHe YcKfYsTgOfL9W8RcQfm0 GXWkfAjxNA9dX8Nh SOPdoexecaqvxHN1UBKe VKJkkR92cCKaHAfhUq2c k9W5n485NHYtQERsoX85 Ld3nsOtzMVFgjVBX mB2yadmdz7eqvwxzDfUo WYVwXVg2BKr6LQOxdApp DqLkMHY3WrF7BDS6uCFo fS9bjMelmesjqI6l Oyc+O34jqC6aPCU0FRC9 lqksJVPharMqFM66UZ84 O0FmPsrweDIwfCU+PGRp mtZggUfzYH6tArQq f3xwh5WsHPjgO8EpMBQh AKvmEkq2AVSzVIZ1oTQ8 lB8wPGYdXOtve1W2rSZ1 P4YsfwFnlh6ee5dh QROlUVrqK28zzBBmm1P1 UYIlnMJ0SSGodUlcMrXa iB35Jpu+VNYcoYnth4Ww Qjggy6bai2oanKg2 IjMwJSIgdmFsaWduPSJ0 s3KcQl77M52zFBunDSAe KRHsRLCpKREyaSsoxe4e sP5bAe5+PGNvbCB3 sGF4nA2nJYLsEyQ7GXll I781ScFujPRbFtmba5aa b0bsnOe1EyKuEOKfvfMo oVwwRBU9q1RmGl17 W91uMHwyHGAnQYSlJGHk NURwvDulwk3rlG6rUg6+ MK7gq5wwqj31xV90hKZ+ HFVlTQS3rUcgTCcc FPRthB2jKUjaOiO5OZYc NcOgeE00qNGvKBnyKj3z pZyydIfkUP9tMESatodr t009UgMtz7bfTNVn jIEoBVkgZRN6N83cu3I2 IRHuCOUvTAU5gMO3nO3s bGlnbjogbGVmdDsgdmVy qQfvYPndOVsmY249 IHRvcDsnPlBhdGllbnQg VxDpXWc8D0LnLqi3YUMa dVfbXL1ziTVzNBdqQx6j fUdkuArzUO7vXMFc rthjl395CcNtz7ibLQOl zBPfGAapHQT7F21df4J8 TPSxEENxVIN8zFC4iQ3c bGlnbjogbGVmdDsg hvSasMvfVLyzJYmjG872 IHRvcDsnPkJpcnRoIERh hPI2WB23FB43zPHuj4U2 jED4T2OqGGTzfbgv wvlzdCA5DDGgMIYhzT71 Bl9ntIfaZe2tNDAoIJY9 RMWkaDVuD1LejF8oZsOp NXJkDWDkJ1WqmTEj XFaxX259QGeyPkT9BRKn siSaD3KjUHRsuCikEvE4 m5X7Qb9UF4G2CR88HH56 vIYhn4Y2hUF1Y5Km RUYywjwbobsqgRX4CLXn YNZwjA41Sl5hzPctRj4w LOKxDWU0GDNahLMyT6Sa eJ8cDmWsTXQjTCBx M0GnuUBcGZifC788DPau IzS3NLIkltKcQ3SjEKCw cJktAqR2i2S9Hx0ZXNv0 ZK50MR53lPAcp3T1 vFU7F0BjBGPypnsxzfvi aYL0FQTxTMPvaH46Wj0t oFdqJe4qLXQmXLN1EJZk oUIbW5QezA3oGcNl MLByUGZhJ3IprBHuTUpp A365JQzlIhB4OSRoyqTx I2ApFHKnwIezWmA9n4B8 Dy0ZBTDmQM35EPX6 rJY5PI10SV31P7HjXoye dGFibGU+PHRhYmxlIHdp ZHRoPScxMDAlJyBzdHls GH7bKo4fPEVjLBKy mIhubXEiGyRqi0puDJUo XLebEV2ksWngQ5HhhKG9 VVZma7r8Pk67L51kJ5Gj dXA+JOAlxIL6sCT4 mV6yXwMeIdR8TBvyE053 YuArtEVtFnskg9fky2ov qZz6IrF2JCWopnHzsWoz TVH9b4WzKm64E37g IHdpZHRoPSIxNSUiIHZh fOqhqp8oqK6kZl9+PGNv sUH3jUI1fK0uQqSnNqK9 HEvbH829UbCtoNIc Ylxrs4dwj4mztRz4KtXv TASqsgCkiQomWRB2b0We My17D8SdsJxvy7FqPip1 so56fRWkf3V6hRV5 N9CbFQTdweodoIVftLty DM7bJQXynubqXJMxaQ7m AGLxO0f7MzRaUsX7RRex A2GmmxK2EBPemFSk BYhoVGV8O23xh6G4PCSh SPYuZZI4dUP5dC2yqTzr bjogbGVmdDsgdmVydGlj PNhfWRbwU498FGGm eLshIPGklK7cNMXkyBKq aVltIO4cDKXbuomrBs3W QDTZFATBSMEZNBCHMX3V EW70Y8LiQek7HQGm vUgdPY6udAWrRJagXf7j lVwjyZkeKE3xRMBbmvmi PJLrzX2iVQMuwHVoiIua ZY7pWUScdqskn399 ErIxPNS2ABAwzSTlT3Yu sC8jWyGoKRUjKLWrH6Jc eQUzQBetK162BDwySsN1 WHNbzvGaX4ZtQOMa jRpfOvF2h2W5Pj9tEK6c YC0jHXIjMD74TX00rRNt e7W1oZW8J1AnJKQcicgc kjakxBR2ZHLsDKFn lS37dJHiGQmgJb8tu1F2 j771MKEbFPRbqY38Nc9y zFviYISffXTIqW1xaxrj s8shuysuTgDhDUKf XDz4KJt0OYGoqFixDlSi YNB1XjT9GDE8vKZynW0s uFdziespeB5sBlj+MjEg ZSIuccJ7T8ExFjy8 LVSagZbdUW1pnDDaAFhr Xq1dcSlptOfiTN5nRLIg blxlZGTrbM5lXPOraKVr hEapDS3oRPOknwlq v793UzOmIHO1WZMtpHGb Q0IyeH4cQfXtDYMiSEMp J1GqxOIxHYnsI578DMlw NnT4QOIgqpJvH7Ll DZPpyIowFgX2a1A3Qe7M GX2voEX4X6UxDhg9CBSm vQogPJ6asQMsZPqzDp4w gTbjyObkAB6pVDYg mjthPYPinF7pRMAfwSJd zBscRB6dBFIyvnkcd497 JyQdQVC7YHQiaMAbJ4Hu uQ8wItFqIQWbVWEv L1HoyJMeCYexY602UOmr QpM0ANHqhzXqQ7JsQZJt xLftTkK7e2Y0Rs2WaPAo V8PhH3y1J2QkIohy dHI+JP46SKYgCT52rYEd mCAly0aslVv3EkNpZKEp KEX7yStsLUpdn4RtZLRn Z08xeZQlp8E3MLTr jRzshRJgQpPftPC1fK1r PEcrsxiue1cvphyoIeid w1ywhc46pJ95G39qRClx ZHRoPSIzMCUiIHZh cCrann7phD6fZi6+PGNv gGU7gHC2mU4mNfAfOhP2 MXwbN088PsTwlGOgOvzh b3bap0jpvCc0RfLm CGZvsuEitEyqBFL4r7Tl Ci90I52jUYsuWYHtWASm ALMcSCVyrNhdfc7esJ1x Ii8+CM1mr1dpcb50 iC05qDF+YSEiGCN8gGyp JYajDXRauU3iNXunOiP9 PVGwVxLjlU11dJGmTInv If7xrEflvKkkAN3e USRhtesfw205UjJfc8xf LUCmwMFzMCliIHR0B61d t3L2EZPmMOWmEPJ0wLC8 gY2feUairdmtsVYt dDsgdmVydGljYWwtYWxp A652BNXdpWfzQcGudZBo M7vaptVFSE8tPtzvxZR+ HKGkTTM8gRvnREcm MJRwkY9iXSPxA4h8QtGx IcE1WUbyR9ZjlmY5LHRb pJAmDJLagJLSfY6oqocu q5evbdsmCzTcKDIy MTu8ZWf7QCYfgUthYwLu EDP0NuJ4ONZ1mFUvcQ8m nBfhmrdegR2dQxe+RklO OjwvdGQ+PHRkIHN0 iHjfXVajJSXzeZ4zUUMz M4y5AiVkLgF9QKzbB1Lu kkM8HWAycLBsUHVywGQP sE3bcmacs1lonccl TcTyNPOlKGy8BIs0NMLt nOitYdVdCSR2WgB4SFR7 oCJnwP1zzRwuleajcE4j Oyc+TVJOOjwvdGQ+ ADHwFZN0hCetLUknUVEl xV2tNJXcI9h2QtUuAjK9 AFqwV3BxcmE1BBVmvWWa GZDqpPNFuM7xtiqx x4ojdvnkZwIxKUOoJHh3 EXt8MMBihNthDpFdNML0 KkI9WAL3hYPglQ3mpXua eyqoyI3oBfp+UGF5 QLA9TH34WR28F4YrRfiy dGFibGU+PHRhYmxlIHdp ZHRoPScxMDAlJyBzdHls CA5eBm9pVNNeVKEe bGxh (more content not included)... Normal [facility] Comp Metabolic Profon 2022 Albumin [Mass/Vol] 4.5 g/dL Normal 3.5-5.2 [facility] Comment on above: Performed By: #### B HCG #### [facility] [address], [place] [id number] Construction Laborer: Alfred Chirinos MD Alkaline Phos 73 U/L Normal 35-104 [facility] Comment on above: Performed By: #### B HCG #### [facility] [address], [place] [id number] Construction Laborer: Alfred Chirinos MD ALT [Catalytic activity/Vol] 17 U/L Normal 5-33 [facility] Comment on above: Performed By: #### B HCG #### [facility] [address], [place] [id number] Construction Laborer: Alfred Chirinos MD Anion gap [Moles/Vol] 11 mmol/L Normal 9-17 [facility] Comment on above: Performed By: #### B HCG #### [facility] [address], [place] [id number] Construction Laborer: Alfred Chirinos MD AST [Catalytic activity/Vol] 14 U/L Normal <32 [facility] Comment on above: Performed By: #### B HCG #### [facility] [address], [place] [id number] Construction Laborer: Alfred Chirinos MD Bilirubin [Mass/Vol] 0.4 mg/dL Normal 0.3-1.2 [facility] Comment on above: Performed By: #### B HCG #### [facility] [address], [place] [id number] Construction Laborer: Alfred Chirinos MD BUN/CRE Ratio 9 Normal 9-20 [facility] Comment on above: Performed By: #### B HCG #### [facility] [address], [place] [id number] Construction Laborer: Alfred Chirinos MD Calcium [Mass/Vol] 9.3 mg/dL Normal 8.6-10.4 [facility] Comment on above: Performed By: #### B HCG #### [facility] [address], [place] [id number] Construction Laborer: Alfred Chirinos MD Chloride [Moles/Vol] 103 mmol/L Normal 98-107 [facility] Comment on above: Performed By: #### B HCG #### [facility] [address], [place] [id number] Construction Laborer: Alfred Chirinos MD CO2 [Moles/Vol] 23 mmol/L Normal 20-31 [facility] Comment on above: Performed By: #### B HCG #### [facility] [address], [place] [id number] Construction Laborer: Alfred Chirinos MD Creatinine [Mass/Vol] 0.47 mg/dL Low 0.50-0.90 [facility] Comment on above: Performed By: #### B HCG #### [facility] [address], [place] [id number] Construction Laborer: Alfred Chirinos MD GFR/1.73 sq M.predicted among non-blacks MDRD (S/P/Bld) [Vol rate/Area] mL/min/{1.73_m2} Normal >60 [facility] Comment on above: Result Comment: Effective May 27, 2022 These results are not intended for use in patients <18 years of age. eGFR results are calculated without a race factor using the 2020 CKD-EPI equation. Careful clinical correlation is recommended, particularly when comparing to results calculated using previous equations. The CKD-EPI equation is less accurate in patients with extremes of muscle mass, extra-renal metabolism of creatine, excessive creatine ingestion, or following therapy that affects renal tubular secretion. Performed By: #### B HCG #### [facility] [address], [place] [id number] Construction Laborer: Alfred Chirinos MD Glucose [Mass/Vol] 103 mg/dL High 70-99 [facility] Comment on above: Performed By: #### B HCG #### [facility] [address], [place] [id number] Construction Laborer: Alfred Chirinos MD Potassium [Moles/Vol] 3.8 mmol/L Normal 3.7-5.3 [facility] Comment on above: Performed By: #### B HCG #### [facility] [address], [place] [phone] Construction Laborer: Alfred Chirinos MD Protein [Mass/Vol] 7.3 g/dL Normal 6.4-8.3 [facility] Comment on above: Performed By: #### B HCG #### [facility] [address] [place] [address] Construction Laborer: Alfred Chirinos MD Sodium [Moles/Vol] 137 mmol/L Normal 135-144 [facility] Comment on above: Performed By: #### B HCG #### [facility] [address] [place] [address] Construction Laborer: Alfred Chirinos MD Urea nitrogen [Mass/Vol] 4 mg/dL Low 6-20 [facility] Comment on above: Performed By: #### B HCG #### [facility] [address], [place] [id number] Construction Laborer: Alfred Chirinos MD Drug Scr, Abuse, Uron 2022 Amphetamine(s),Ur Negative Normal NEG [facility] Comment on above: Result Comment: (Positive cutoff 500 ng/mL) Performed By: #### B HCG #### [facility] [address] [place] [address] Construction Laborer: Alfred Chirinos MD Barbiturate(s),Ur Negative Normal NEG [facility] Comment on above: Result Comment: (Positive cutoff 200 ng/mL) Performed By: #### B HCG #### [facility] [address] [place] [address] Construction Laborer: Alfred Chirinos MD Benzodiazepine(s) Negative Normal NEG [facility] Comment on above: Result Comment: (Positive cutoff 150 ng/mL) Performed By: #### B HCG #### [facility] [address] [place] [address] Construction Laborer: Alfred Chirinos MD Cannabinoid(s),Ur Negative Normal NEG [facility] Comment on above: Result Comment: (Positive cutoff 50 ng/mL) Performed By: #### B HCG #### [facility] [address] [place] [address] Construction Laborer: Alfred Chirinos MD Cocaine Metabolite Negative Normal [facility] Comment on above: Result Comment: (Positive cutoff 150 ng/mL) Performed By: #### B HCG #### [facility] [address] [place] [address] Construction Laborer: Alfred Chirinos MD Methadone Ql (U) Negative Normal NEG [facility] Comment on above: Result Comment: (Positive cutoff 200 ng/mL) Performed By: #### B HCG #### [facility] [address] [place] [address] Construction Laborer: Alfred Chirinos MD Methamphetamine, Ur Negative Normal [facility] Comment on above: Result Comment: (Positive cutoff 500 ng/mL) Performed By: #### B HCG #### [facility] [address] [place] [address] Construction Laborer: Alfred Chirinos MD Opiate(s), Ur Negative Normal NEG [facility] Comment on above: Result Comment: (Positive cutoff 100 ng/mL) Performed By: #### B HCG #### [facility] [address] [place] [address] Construction Laborer: Alfred Chirinos MD Oxycodone, Urine Negative Normal NEG [facility] Comment on above: Result Comment: (Positive cutoff 100 ng/mL) Performed By: #### B HCG #### [facility] [address], [place] [address] Construction Laborer: Alfred Chirinos MD Phencyclidine, Ur Negative Normal NEG [facility] Comment on above: Result Comment: (Positive cutoff 25 ng/mL) Performed By: #### B HCG #### [facility] [address], [place] [id number] Construction Laborer: Alfred Chirinos MD Propoxyphene,Urine Negative Normal [facility] Comment on above: Result Comment: (Positive cutoff 300 ng/mL) Performed By: #### B HCG #### [facility] [address] [place] [address] Construction Laborer: Alfred Chirinos MD Tricyclic antidepressants Screen Ql (U) Negative Normal [facility] Comment on above: Result Comment: (Positive cutoff 300 ng/mL) Drug screen results are to be used for medical purposes only. All positive results are unconfirmed. Testing for employment or legal uses should be sent to a reference laboratory for confirmation. Performed By: #### B HCG #### [facility] [address], [place] [id number] Construction Laborer: Alfred Chirinos MD Drug screen multi urineon Amphetamine Screen, Ur Negative NEGATIVE [facility] Comment on above: (Positive cutoff 500 ng/mL) Barbiturate Screen, Ur Negative NEGATIVE [facility] Comment on above: (Positive cutoff 200 ng/mL) Benzodiazepine Screen, Urine Negative NEGATIVE [facility] Comment on above: (Positive cutoff 150 ng/mL) Cannabinoid Scrn, Ur Negative NEGATIVE [facility] Comment on above: (Positive cutoff 50 ng/mL) Cocaine Metabolite, Urine Negative NEGATIVE [facility] Comment on above: (Positive cutoff 150 ng/mL) Methadone Screen, Urine Negative NEGATIVE [facility] Comment on above: (Positive cutoff 200 ng/mL) Methamphetamine, Urine Negative NEGATIVE [facility] Comment on above: (Positive cutoff 500 ng/mL) Opiates, Urine Negative NEGATIVE [facility] Comment on above: (Positive cutoff 100 ng/mL) Oxycodone Screen, Ur Negative NEGATIVE [facility] Comment on above: (Positive cutoff 100 ng/mL) Phencyclidine, Urine Negative NEGATIVE [facility] Comment on above: (Positive cutoff 25 ng/mL) Propoxyphene, Urine Negative NEGATIVE [facility] Comment on above: (Positive cutoff 300 ng/mL) Tricyclic Antidepressants, Urine Negative NEGATIVE [facility] Comment on above: (Positive cutoff 300 ng/mL) Drug screen results are to be used for medical purposes only. All positive results are unconfirmed. Testing for employment or legal uses should be sent to a reference laboratory for confirmation. [facility] Urinalysison 09-04-2022 Bilirubin Urine Negative NEGATIVE [facility] Color, UA Yellow Yellow [facility] Glucose, Ur Negative NEGATIVE [facility] Interpretation and review of laboratory results Abnormal [facility] Ketones Ql (U) MODERATE Abnormal NEGATIVE [facility] Leukocyte esterase Test strip Ql (U) Negative NEGATIVE [facility] Nitrite, Urine Negative NEGATIVE [facility] pH, UA 7.0 5.0 - 8.0 [facility] Protein, UA Negative NEGATIVE [facility] Specific Taylor, UA 1.010 1.005 - 1.030 B [facility] Turbidity UA Clear Clear [facility] Urinalysis Comments [facility] Urine Hgb Negative NEGATIVE [facility] Urobilinogen, Urine Normal Normal [facility] Urinalysis, Routineon 2022 Bilirubin, SemiQt,Ur Negative Normal NEG [facility] Comment on above: Performed By: #### B HCG #### [facility] [address], [place] [id number] Construction Laborer: Alfred Chirinos MD Blood, Urine Negative Normal NEG [facility] Comment on above: Performed By: #### B HCG #### [facility] [address], [place] [id number] Construction Laborer: Alfred Chirinos MD Clarity (U) Clear Normal CLEAR [facility] Comment on above: Performed By: #### B HCG #### [facility] [address], [place] [id number] Construction Laborer: Alfred Chirinos MD Color (U) Yellow Normal YEL [facility] Comment on above: Performed By: #### B HCG #### [facility] [address], [place] [id number] Construction Laborer: Alfred Chirinos MD Comment Normal [facility] Comment on above: Performed By: #### B HCG #### [facility] [address] [place] [address] Construction Laborer: Alfred Chirinos MD Glucose Ql (U) Negative Normal NEG [facility] Comment on above: Performed By: #### B HCG #### [facility] [address], [place] [id number] Construction Laborer: Alfred Chirinos MD Ketones Ql (U) MODERATE Abnormal NEG [facility] Comment on above: Performed By: #### B HCG #### [facility] [address], [place] [id number] Construction Laborer: Alfred Chirinos MD Leukocyte esterase Test strip Ql (U) Negative Normal NEG [facility] Comment on above: Performed By: #### B HCG #### [facility] [address] [place] [address] Construction Laborer: Alfred Chirinos MD Nitrite,Ur Negative Normal NEG [facility] Comment on above: Performed By: #### B HCG #### [facility] [address] [place] [address] Construction Laborer: Alfred Chirinos MD PH,Ur 7.0 Normal 5.0-8.0 [facility] Comment on above: Performed By: #### B HCG #### [facility] [address], [place] [id number] [employer] Laborer: Alfred Chirinos MD Protein Ql (U) Negative Normal NEG [facility] Comment on above: Performed By: #### B HCG #### [place] [facility] [address] [place] [address] Construction Laborer: Alfred Chirinos MD Spec. Taylor,Ur 1.010 Normal 1.005-1.[address] [facility] Comment on above: Performed By: #### B HCG #### [facility] [address] [place] [address] Construction Laborer: Alfred Chirinos MD Urobilinogen,Ur Normal Normal NORM [facility] Comment on above: Performed By: #### B HCG #### [facility] [address] [place] [address] Construction Laborer: Alfred Chirinos MD Auto Diffon 09-02-2022 Basophils/100 WBC (Bld) 0.8 % Normal 0.0-2.0 [facility] Comment on above: Order Comment: Order Added by Discern Expert. Performed By: #### 2 956211, 5495821, 0918366, 8635423, 39390508, 2533553, 5438912 #### [facility] [address] [place] [address] Basophils/Leukocytes Auto (Bld) [Pure # fraction] 0.1 E9/L Normal 0.0-0.2 [facility] Comment on above: Order Comment: Order Added by Ally Expert. Performed By: #### 2 611041, 8088469, 8354261, 4523095, 93730572, 1384168, 4107140 #### [facility] [address] [place] [address] Eosinophils/100 WBC (Bld) 2.5 % Normal 0.0-8.0 [facility] Comment on above: Order Comment: Order Added by Discern Expert. Performed By: #### 2 846878, 5880391, 7737171, 9316005, 80877600, 8258234, 4291036 #### [facility] [address] [place] [address] Eosinophils/Leukocyte s Auto (Bld) [Pure # fraction] 0.2 E9/L Normal 0.0-0.5 [facility] Comment on above: Order Comment: Order Added by Ally Expert. Performed By: #### 2 368324, 5710318, 3520384, 8808842, 27745276, 8911201, 9726696 #### [facility] [address] [place] [address] Lymphocytes/100 WBC (Bld) 18.3 % Normal 14.0-50.0 [facility] Comment on above: Order Comment: Order Added by Ally Expert. Performed By: #### 2 155072, 4911712, 8211526, 4523169, 11089233, 3462462, 2247925 #### [facility] [address] [place] [address] Lymphocytes/Leukocyte s Auto (Bld) [Pure # fraction] 1.6 E9/L Normal 1.0-4.0 [facility] Comment on above: Order Comment: Order Added by Ally Expert. Performed By: #### 2 382729, 3528986, 8664925, 0278333, 01832688, 3717499, 4623907 #### [facility] [address] [place] [address] Monocytes/100 WBC (Bld) 6.8 % Normal 4.0-14.0 [facility] Comment on above: Order Comment: Order Added by Discern Expert. Performed By: #### 2 332516, 8623501, 8142944, 5390870, 08396003, 7907802, 0008332 #### [facility] [address] [place] [address] Monocytes/Leukocytes Auto (Bld) [Pure # fraction] 0.6 E9/L Normal 0.2-1.0 [facility] Comment on above: Order Comment: Order Added by Discern Expert. Performed By: #### 2 889358, 5856585, 4562193, 4108359, 31872937, 5838336, 7692888 #### [facility] [address] [place] [address] Neutrophils/100 WBC (Bld) 71.6 % Normal 36.0-75.0 [facility] Comment on above: Order Comment: Order Added by Discern Expert. Performed By: #### 2 177742, 1612449, 8835423, 8550413, 91161925, 5489463, 4523114 #### [facility] [address] [place] [address] Neutrophils/Leukocyte s Auto (Bld) [Pure # fraction] 6.2 E9/L Normal 2.0-7.5 [facility] Comment on above: Order Comment: Order Added by Discern Expert. Performed By: #### 2 296073, 4441411, 6401194, 9323299, 15899777, 5404848, 1125543 #### [facility] [address] [place] [address] BMPon 09-02-2022 Creatinine [Mass/Vol] 0.4 mg/dL Low 0.5-1.3 [facility] Comment on above: Performed By: #### 2 088413, 7112246, 4545473, 3896598, 58969036, 9699053, 7001788 #### [facility] [address] [place] [address] Urea nitrogen [Mass/Vol] 5 mg/dL Normal 5-21 [facility] Comment on above: Performed By: #### 2 919395, 4283476, 0958971, 6719526, 75043175, 5952990, 8001387 #### [facility] [address] [place] [address] Urea nitrogen/Creatinine [Mass ratio] 12 No Units Normal 10-20 [facility] Comment on above: Performed By: #### 2 717484, 4824283, 8012017, 6840268, 09650023, 2987193, 2396562 #### [facility] [address] [place] [address] Anion gap [Moles/Vol] 12 mmol/L Normal 6-16 [facility] Comment on above: Performed By: #### 2 644502, 7573286, 3962980, 6396524, 46021334, 3131986, 6635907 #### [facility] [address] [place] [address] Calcium [Mass/Vol] 9.0 mg/dL Normal 8.9-11.1 [facility] Comment on above: Performed By: #### 2 820053, 0279170, 9924236, 6591949, 43446063, 7389669, 9211408 #### [facility] [address] [place] [address] Chloride [Moles/Vol] 103 mmol/L Normal 101-111 [facility] Comment on above: Performed By: #### 2 419807, 3064327, 3230004, 5796528, 65889580, 9084536, 2648535 #### [facility] [address] [place] [address] CO2 [Moles/Vol] 23 mmol/L Normal 21-31 [facility] Comment on above: Performed By: #### 2 703338, 8252374, 3865235, 5821731, 76688205, 0335913, 2831456 #### [facility] [address] [place] [address] Glucose [Mass/Vol] 96 mg/dL Normal 55-199 [facility] Comment on above: Result Comment: If t his glucose result represents a fasting glucose, interpretation should refer to the following reference range: 55-99 mg/dL Performed By: #### 2 904601, 4076714, 2331933, 1324814, 83891116, 9762809, 1429521 #### [facility] [address] [place] [address] Potassium [Moles/Vol] 3.3 mmol/L Low 3.5-5.3 [facility] Comment on above: Performed By: #### 2 918237, 0399449, 2848390, 8708326, 04266272, 8680009, 0162504 #### [facility] [address] [place] [address] Sodium [Moles/Vol] 135 mmol/L Normal 135-145 [facility] Comment on above: Performed By: #### 2 543158, 7462159, 6825188, 1105755, 64768232, 1064461, 2405199 #### [facility] [address] [place] [address] CBC w/ Auto Diffon 3 Erythrocyte distribution width (RBC) [Ratio] 13.0 % Normal 10.9-14.2 [facility] Comment on above: Performed By: #### 2 022922, 5732130, 6511616, 8192594, 92604274, 9172536, 2267235 #### [facility] [address] [place] [address] Hematocrit (Bld) [Volume fraction] 38.7 % Normal 34.0-46.0 [facility] Comment on above: Performed By: #### 2 880925, 6514445, 6517620, 4036233, 73905822, 9987509, 3108127 #### [facility] [address] [place] [address] Hemoglobin (Bld) [Mass/Vol] 13.2 g/dL Normal 12.0-16.0 [facility] Comment on above: Performed By: #### 2 286375, 3680728, 8215397, 0819333, 66583045, 4724969, 9148580 #### [facility] [address] [place] [address] MCH (RBC) [Entitic mass] 29.3 pg Normal 27.0-34.0 [facility] Comment on above: Performed By: #### 2 945098, 9331641, 6201333, 6221822, 96777917, 1692486, 2852775 #### [facility] [address] [place], [place] [address] MCHC (RBC) [Mass/Vol] 34.2 g/dL Normal 31.4-36.0 [facility] Comment on above: Performed By: #### 2 621497, 6827787, 2991988, 4445156, 14536309, 6423248, 6079573 #### [facility] [address] [place], [place] [address] MCV (RBC) [Entitic vol] 85.6 fL Normal 80.0-100.0 [facility] Comment on above: Performed By: #### 2 082534, 3532956, 2963658, 2631750, 29625229, 6711123, 3823654 #### [facility] [address] [place] [address] Platelet mean volume (Bld) [Entitic vol] 8.2 fL Normal 6.4-10.8 [facility] Comment on above: Performed By: #### 2 986845, 0764975, 2178172, 3572563, 93826138, 9790043, 8912231 #### [facility] [address] [place] [address] Platelets (Bld) [#/Vol] 281.0 E9/L Normal 150.0-500.0 [facility] Comment on above: Performed By: #### 2 541744, 1586551, 1533411, 4711586, 55403727, 7731119, 2200032 #### [facility] [address] [address] RBC (Bld) [#/Vol] 4.5 E12/L Normal 4.3-5.9 [facility] Comment on above: Performed By: #### 2 361246, 1867861, 2690578, 3008767, 81952178, 4235565, 3231360 #### [facility] [address] [place] [address] WBC corrected for nucl RBC Auto (Bld) [#/Vol] 8.6 E9/L Normal 4.0-11.0 [facility] Comment on above: Performed By: #### 2 195990, 4724110, 1303511, 2176634, 93778561, 6382263, 8556371 #### [facility] [address] [place] [address] Coding Summary.on 09-02-2022 Coding Summary. CD:[id number] Gh0bWw+PGhlYWQ+PE1FV JJnT65avJBqsB6IG2uXK Z9ZXDPHNBUYUB7MVH8nt CW8DZehJ9SwylIp VraepGSdOU19FLr2YIW4 bQenCWowoX4chXGfW9m7 RfRgQV70zI04BCrwFAMz QdW8NsMlkntycBSe R1jmOoJqzHLwLcm+PHRh YmxlIHdpZHRoPScxMDAl QmRfpXlfVS7bRc2uPCPb LWNvbGxhcHNlOiBj i4wvYQPxSRfgAU5pxIgv F4YsuID7ZWWuy5c1Ee79 dHI+BJFhNIP1mTneJEti p039IyEqd9fuUQJ7 uAWvLAjkANS6T94lv2O5 ZNYfKJDuJCF1cOK2iA1c pHajiuapU9BznGSmGuS9 TWU0qFQfvO7dcUbk idnxhX5fGzi+J95RPW8O DOWILQ0IMjl0O8JhDbcb dHI+EB47LQUsQO27nDLn fPBzo3blaHb0CcDu IMKvMOU7eBejPRnrs7Nq DWUmN19pjJFyv8Q7ZYXv uUfgnLMrXhVpmZF6gH9g HThusnaxp1tudvvg Fiogi5xjim97hI61M84p DTebSOEsARD8UIZhVDJq pNwfyx2qdU4lYj8+IDxj i0bqe8zwvVg6XaGh LBPchtCutRquEMT1t7Vu Ay05K7LtiTelw1TbEjs1 gv01pAQpw3X6jMT7ITnf BVUdsJ2uYKvoYbL7 LXHtWgBenP36yBNzROdz Lc5cbQjuaMdsAM9qKVJm sdzsYKMdqB5zMRQeyRXk mCliBK6dKZPllbju r356JkLcJMA5YWUndHDs M1GknM1xPnIcQCTmRPQp K1YvsFMgYDjaT825VMcy HwE8XTImojVmT0Ii FFFfiYusZpT1w5L3Aw8R m5QrkvflGDS0DVgaHKFt OvM0HtKrRiV5H7YfChh5 MREzyJbrQD4kW0Ir KGYwttadqqbogNR6LUQs NWAsyU44qZBzRCeoSv6j j5G3o593UHUcINZusJ34 Os7waRgbJYMvwAKP hQ2ovyrjm5hizcgvDcSc FZMlYAo7DZd4JIAyqIfw YuJhMZM2VmZ8AKE0kXBt eR5ttGahvwtnpR4f Oyc+K39ykK1eJOX4WCA1 zfioWTShagIzIN79HV34 X6RvObtgdAQkiCB+PGRp pmHdrZjqYH5uJcMr b9xvj4RwVSkwU9GjRHTt OXjvTlj5QTElRKV9lIX4 sY2zKQWfGGbmi0T5uAF1 O6LejvPywz3mv1ay UUGmEXyhR35wrGBwe7W3 ATUdqSW8ILNpnYecLoBi xM96Pqq+LXVwgOski6Ok Umktj4rub1xcfFo0 IjMwJSIgdmFsaWduPSJ0 t6DdQc71Z67nACvlFXCu EZXwVRWlBARgjRqcvq9e sP8mWk3+PGNvbCB3 lBW6lJ5oPWQiHsH7IXqv I241NwItyNVbVwhib3aq e3xijYm5CdPqARZbwuYa oEtfBHR5t4BrKj42 K99pCLrpPVRhKFOwSNKh ACBlmOnoll1kcY1gBv8+ ED9hs2hsdu92aY05nZA+ YYKsDCX2vVbeWUvv WKYjdM8wDNpsJxR1XHXq BiKhpC49hWJrGTjgWq4h lQdkbBehMZ1kZMRoskbw i914UuZrs2mpJKBz jIKwHXmgEJI8X19io3E9 KFAsDGWhSPN1gAD2eL7n bGlnbjogbGVmdDsgdmVy wRowQOaxWYhjR880 IHRvcDsnPlBhdGllbnQg XcZbFEh4F6UlQvw4KGDe gJsfYB8efSUjNQubTv2q eVliwEdtSF2rBYMx lsoaz468FsAxt5ziBXLn qOTwTFymSJL5P73vn7C1 WFOcTWHxZSW3cEG2pP4f bGlnbjogbGVmdDsg uvHdrUkjIGlxJTkkE642 IHRvcDsnPkJpcnRoIERh bXS0FO07XN85uJEew8K2 zYW7K2VrJHQjgsxh daqadXA5PFPdLVGhwA62 Sz9moFbsBp2iMVClOQW3 GLCovXKtF8HrnO6jXiCb BRPvTRTdN3UuoMAv QJgbC042EIviJaM8UFDo eaVfX7SoKRKjpAtlCzJ5 o7K3Yt1EQ2X2WJ95BL49 cXBlj4T9cLX7M3Cj RRRrzryqjeybtTN3IUBj SAXyvO69Xt0ayLqfAx0c OAKmIGX9EASkbLXuA1Re rO4tOsVdHVNmNOHt K3NasNPrDBmhZ156WZlk AkW4JOManeLuC4DrVCIs uJwbKfF5o1I8Iu7ULSm5 JX21IO09kYRdi8C9 yXX1C2MoPGXozxkpghaq oSU6UERtJZPvnB97Hm0f kIfwLs7rYKRkKRN6POFf oAHnE1SlvY7jYeXu IJJfJHKwA5XjgTLfNNjt I571SZfyScG8VYSgqkHc C4RgEAJwkTkqDeQ8w4V0 Ld5FZXQsTA97IQG9 yNH1IG54WT84X0RvTmwk dGFibGU+PHRhYmxlIHdp ZHRoPScxMDAlJyBzdHls TO3sEd4rLJGtHZTq eKgqrLRjUoYzc7paGZQh FJqcUY3snIroC5ZjwLO6 JPFxf3p4Fa98I32mG6Ye dXA+CKHmvSY1zCL8 pY4oSbLfScT7GFwlG394 ZoTjgLSpFhrrp9ibt8wh lUo6DlC9XSDpcmAbiBmd QON9p0CbZr56H88s IHdpZHRoPSIxNSUiIHZh oKygdh9kdQ5hTy7+PGNv xDY3yKN6dA5gQySwEeL4 WLnjC414UvSlrUCb Irzzv6ubj5visDa0IvNv EREjytFhvWlcMBB8u2Xi Lx01G0QvpYyim0ZdHqn1 oo44aGTcv1K4fCA9 L6QuYRGmszuktWSfzLig FZ4kRTRasgxbEXCpoJ6u MTBoL7s5SfMcGiI1UTlh A9HnqzB7ZFNlsCSs WTgmJXP7I37fp9E4CMLw MWVmXRM3cRO3uI6vtZzb bjogbGVmdDsgdmVydGlj OWrjQSbcJ431FFLt eOxwAMCzrX7uULVrzDJt rXcoOK4tUQNqzcuqVb8B ZUHRFUWVAIPSANLRTY9E IU40T9UnWke3NPHj kTzcPT8tyTEwGTbfQh1z cQqxfOlrKU0rTZWkbolg VVLtxU4nHXNtfQRunIbx UJ1qOGEgyhhvi324 JrOmBVC1ZJWgpXMpV6Ep yZ7hGfHqSSBiLOIjA2Ql sONsYAfdS490TNeaReT1 WBAgkgGwX0LpHTJo gXmnTdJ7b7T0Ix8eTU6k JX9aIHAvJX02DU28jWZf f5A5fGM1C1GiBTHraeqf emssyDZ7RXImTECg cA31kGGoDHmiAs3cw8P2 c112FMAaZHXadI40Ni2x cSpcSQRtjPPRzY4gatuk m8qklrseWcVgOAYg OEq4TAe8VQCisYijZsLx PHN3FdR7YXO9hWSchG0m qJnunzlgyJ7gNrx+MjEg ZIKucbH3N0ElFgt0 RYBncCbpYG7xnMJgWOwv Tt0kfZbzzDntDJ2bRPXv dtgvPKEhtC8sCURbvMEf qXbyMG2cISUvdxri g903MbWfJZW5REBxfLTq N2WiqK3yHoIuMIViZGGv H9IzkFDtWEhnW029ZAvs WeX7DMEvjhYiF2Sa CGJgiBghSqF6b9V1Qu5D JV5mfDL1R6VeWqn9OXCv qQowZP8euLIaHSaiTb9v eOfvmYipWV9fHJVe gpdxKZHqqW5fMLUerGIx mZbbFK6uRIVnvfhdj378 BlPjNPN3DQKjmQMfO4Se dV7zCkEkNIJsKNDi D4BwuSMqTUayC065YXcx IdU4LEOaigNbS6CzAQFz tZqcQiT7r8A1Jn8KtNSs R1HlQ4h9Z1RzHdab dHI+ZN69QFCmNH66rSTi jIBsj5stlPy2NoMiIXDg NGI9tXsfZHims2KdMSIw O72ifLMxj5Z7LNHn yNipqTNkUdIhlLD9bD9o MVqtmbwxp0whnzauOyqn h7kqkc17aL15D49sKCce ZHRoPSIzMCUiIHZh rUhdbf0uxG0tZm0+PGNv dBZ0kCS3nD4pEsDbFlM4 NTpfH672GuWcbBCpDhoa d4cma8onkPr8QjSz FTWfvfIknJykXWP1f7Wk Vl50Z77nRDufSCLvTANi HPVtUJZrpTtprb9clU2z Ii8+UK1lt2jfwl52 vD07uYM+DTWsBUE5iShu WJlcVBSrhB1eWKnnPsP9 URYyMpQmpB25uEGsGNci Dx0qxYqhrCoaOT9p YJHysftmf492NxIrn1ay WGFmbOPsRDwoLGA1U21m x2N5LSZdBMOlPBE1bAM5 tI1raDipyydelSWk dDsgdmVydGljYWwtYWxp Y575YNLaxTycLaTncSHi F5qajuQLNG1nIcqwkRL+ QRVcZPV9kSaqMEpj FLKyuB7xSUAwS4x9EcHy JeJ6HOjoG4LqziU3POPw eXFkHIOaeVKZbQ0diufi c4cxqkcaZpRnHVZg VLu1VWz0PCCooInsOiPj YXM5LnT8XLG1zTYjmD6z pAwwsfrutP3yVto+RklO OjwvdGQ+PHRkIHN0 mLstSGfbTEDohK0kHCGx E9n8AeDfHoT6AUkqV8Fd smA4ROUqeBUdKEHhjWYD qK5igthcy2lccmyk HzHkBSTpEAy0BGj5CHPn jTjpUaWdOQW4BzK3SKV3 sOVrvN8ccCeboueoqV4b Oyc+TVJOOjwvdGQ+ RXJhRJZ2dYngFHepIJMt tS4jBDIfU5r7KwSxUnP2 RBebM8ZgioV4IKAehYRz CMUjxQZOeR2mjqre o1rxgnjpPvNqDGUlFQp7 XYj8XFToqLjoQtHlPEL6 VuQ7FUR5aYCulS7rvPte sifvwJ1vUmn+UGF5 HOW7XJ25LV86E7XsSslf dGFibGU+PHRhYmxlIHdp ZHRoPScxMDAlJyBzdHls CA8fSk1cNQXtLHSy bGxh (more content not included)... Normal [facility] Consent for Treatmenton Consent for Treatment [id number] #[id number]:127 Normal [facility] Discharge Instructionson Discharge Instructions [id number] 2#1.00CD:127 Normal [facility] ED Clinical Summaryon 2022 ED Clinical Summary [address] [address] ED Clinical Summary Person Information Name: ROQUE PIERSON Maribel/[facility] Age: 22 Years : 2000 Sex: Female Language: Serbian PCP: Caryn Aviles MD Marital Status: Single MRN: Visit Id: Visit Reason: Vomiting - ; Nausea; VOMITING, CANT KEEP NOTHING DOWN Speciality: Acuity: 3 Enc Type: Emergency Med Service: Emergency Arrival: 09/01/2022 22:21:17 Discharge: 09/02/2022 01:11:59 LOS: 000 02:50 Checkin: 09/01/2022 22:21:17 Checkout: 09/02/2022 01:11:59 Dispo Type: Home (Routine DC) EVENTS: Event Name Event Status Request Date/Time Start Date/Time Complete Date/Time Arrive Complete 09/01/2022 22:21:17 09/01/2022 22:21:17 09/01/2022 22:21:17 Document Home Meds Request 09/01/2022 22:21:17 Triage Complete 09/01/2022 22:21:17 09/01/2022 22:37:37 09/01/2022 22:37:37 Registration Complete 09/01/2022 22:36:02 09/01/2022 22:36:02 09/01/2022 22:36:02 Reg Complete Request 09/01/2022 22:36:02 Reg Bed Request Complete 09/01/2022 22:36:02 09/01/2022 22:36:02 09/01/2022 22:36:02 Bed Assign Complete 09/01/2022 22:38:55 09/01/2022 22:38:55 09/01/2022 22:38:55 Dr Exam Complete 09/01/2022 22:38:55 09/01/2022 22:41:56 09/01/2022 22:41:56 RN Exam Complete 09/01/2022 22:38:55 09/01/2022 23:34:10 09/01/2022 23:34:10 Registration Request 09/01/2022 22:41:56 Pending Labs Complete 09/01/2022 22:43:31 09/01/2022 23:23:11 09/01/2022 23:36:02 Lab Complete 09/01/2022 22:43:31 09/01/2022 23:23:11 09/01/2022 23:36:02 Urine Collect Complete 09/01/2022 22:43:32 09/01/2022 23:36:02 Meds Admin Complete 09/01/2022 22:43:32 09/01/2022 22:59:13 Patient Care Request 09/01/2022 22:43:32 Pending Labs Complete 09/01/2022 22:55:08 09/01/2022 22:55:08 09/01/2022 23:23:26 Lab Complete 09/01/2022 22:55:08 09/01/2022 22:55:08 09/01/2022 23:23:26 Pending Labs Complete 09/01/2022 23:07:02 09/01/2022 23:07:02 09/01/2022 23:07:10 Lab Complete 09/01/2022 23:07:02 09/01/2022 23:07:02 09/01/2022 23:07:10 Meds Admin Complete 09/01/2022 23:16:09 09/01/2022 23:41:30 Pending Labs Complete 09/02/2022 00:34:36 09/02/2022 00:34:36 09/02/2022 00:34:36 Discharge Complete 09/02/2022 00:35:58 09/02/2022 01:12:07 09/02/2022 01:12:07 Transfer Complete 09/02/2022 01:12:07 09/02/2022 01:12:07 09/02/2022 01:12:07 ADDRESS: [address] [place] [id number] PHYS DOC NOTES: MEDICAL INFORMATION: Prescriptions Given: New Medications Printed Prescriptions promethazine (promethazine 12.5 mg oral tablet) 1 Tablets By Mouth every 8 hours as needed as needed for nausea/vomiting. Refills: 0. Medications to Continue with No Changes Other Medications cetirizine (Zyrtec) 5 Milligram By Mouth every day. famotidine (Pepcid 20 mg Tab) 1 Tablets By Mouth every day. Refills: 0. fluticasone nasal (Childrens Flonase 50 mcg/inh nasal spray) 1 Sprays Nasal Inhalation every day. ondansetron (Zofran 4 mg Tab) 1 Tablets By Mouth every 6 hours as needed Nausea. Take one tab by mouth every six hours as needed for nausea. Refills: 0. ondansetron (Zofran 4 mg Tab) 1 Tablets By Mouth every 8 hours as needed Nausea/Vomiting. Refills: 0. ondansetron (Zofran ODT 4 mg Tab-Dis) 1 Tablets By Mouth every 6 hours as needed Nausea/Vomiting. Refills: 0. PATIENT EDUCATION INFORMATION: Instructions: Nausea and Vomiting, Adult Follow up: With: Address: When: Caryn [place] [place] [address] [employer] ([employer] In 3 days DIAGNOSIS: N&V (nausea and vomiting) Normal [facility] ED Note-Physicianon 09-02-19 ED Note-Physician Basic Information Time Seen: Coleman Ludwig DOMaricarmen 09/01/2022 22:41 Chief Complaint Pt. presents to the ed with c/o hyperemeis, pt. is 7weeks and 1 day . History of Present Illness HPI: Patient is a 22-year-old female who is approximately 7 weeks and 1 day who presents the ED with nausea and vomiting. Patient states that she has had a lot of nausea and vomiting with this so far and today has not been able to hold down any food or liquids. She denies any abdominal pain with this. She denies any vaginal bleeding or abnormal discharge. She denies any urinary symptoms. She denies any fever or chills. She states that she was given a prescription of Zofran for this which she took at home with minimal improvement. ROS: Pertinent review of systems conducted and is negative except as noted above. Physical exam: General: nontoxic appearing and in no distress HEENT: Mucous membranes moist Neuro: awake and alert Neck: supple, trachea midline Card: Heart regular rate and rhythm no murmur Resp: Lungs clear to auscultation no wheeze or rhonchi Abd: Soft and nondistended. No tenderness to palpation with no rebound or guarding. Ext: No gross deformity or edema Physical Exam Vitals & Measurements T: 36.7 ?C(Oral) HR: 91(Peripheral) RR: 18 BP: 109/72 SpO2: 99% HT: 172.72 cm WT: 74.5 kg BMI: 24.97 Medical Decision Making MEDICAL DECISION MAKING Number and Complexity of Problems Differential Diagnosis: Hyperemesis gravidarum, gastroenteritis MDM Data External documents reviewed: N/A My EKG interpretation: Noted in chart if applicable My CT interpretation: N/A My X-ray interpretation: Noted in chart if applicable My Ultrasound interpretation: N/A Decision rules/scores evaluated: N/A Discussed with: N/A Treatment and Disposition ED Course: Patient is nontoxic-appearing no distress. Abdomen is soft and nontender. We will obtain blood work and give her IV fluids as well as antinausea medications. Blood work shows a borderline hypokalemia but is otherwise reassuring. Urine shows some ketones but no signs of acute infection. On reassessment the patient is feeling much better after the fluids and the Phenergan. We discussed the plan of discharge with a short prescription of Phenergan as needed. She will follow-up with her primary care physician Shared decision making: As above Code status: N/A Assessment/Plan N&V (nausea and vomiting) (R11.2: Nausea with vomiting, unspecified) Orders: Lactated Ringers Injection, 1,000 mL, Soln-IV, IV, Once, Stop date 09/01/22 22:43:00 EST, STAT, Start date 09/01/22 22:43:00 EST, Infuse over 61, minute(s) Lactated Ringers Injection, Soln-IV, Misc, Once, Stop date 09/01/22 22:49:03 EST, Physician Stop, 09/01/22 22:49:03 EST ondansetron, 4 mg = 2 mL, Injection, IV Push, Once, Stop date 09/01/22 22:43:00 EST, STAT, Start date 09/01/22 22:43:00 EST, 09/01/22 22:43:00 EST promethazine, 12.5 mg = 0.5 mL, Injection, IV Push, Once, Stop date 09/01/22 23:15:00 EST, STAT, Start date 09/01/22 23:15:00 EST, 09/01/22 23:15:00 EST promethazine, 12.5 mg = 1 tab(s), Oral, q8hr, PRN as needed for nausea/vomiting, # 12 tab(s), Refills(s) 0 Automated Diff Basic Metabolic Panel CBC w/ Auto Diff eGFR Extra Blue Tube Extra SST Tube Hepatic Function Panel Lipase Level Saline Lock Insert UA With Cult Reflex Medications Administered Given LR 1000 mL Bolus, 1000 mL, IV ondansetron 4 mg/2 mL Inj, 4 mg, IV Push Phenergan 25 mg/mL Injection, 12.5 mg, IV Push Disposition Plan Discharge Prescription List Prescriptions promethazine 12.5 mg oral tablet, 12.5 mg= 1 tab(s), Oral, q8hr, PRN Follow-up With When Contact Information Caryn Aviles In [address] [place] [id number] Business (1) Additional Instructions: Patient Education Nausea and Vomiting, Adult Problem List/Past Medical History Ongoing No qualifying data Historical None Procedure/Surgical History None. Medications Inpatient No active inpatient medications Home Childrens Flonase 50 mcg/inh nasal spray, 1 spray(s), Nasal, Daily Pepcid 20 mg Tab, 20 mg= 1 tab(s), Oral, Daily Zofran 4 mg Tab, 4 mg= 1 tab(s), Oral, q6hr, PRN Zofran 4 mg Tab, 4 mg= 1 tab(s), Oral, q8hr, PRN Zofran ODT 4 mg Tab-Dis, 4 mg= 1 tab(s), Oral, q6hr, PRN Zyrtec, 5 mg, Oral, Daily Allergies No Known Allergies Social History Alcohol - Denies Alcohol Use, 12/16/2015 Substance Abuse - Denies Substance Abuse, 12/16/2015 Tobacco - Denies Tobacco Use, 12/16/2015 Household tobacco concerns: Yes., 12/16/2015 Lab Results WBC: 8.6 E9/L (09/01/22 22:50:00) RBC: 4.5 E12/L (09/01/22 22:50:00) HGB: 13.2 gm/dL (09/01/22 22:50:00) Hct: 38.7 % (09/01/22 22:50:00) MCV: 85.6 fL (09/01/22 22:50:00) MCH: 29.3 pg (09/01/22 22:50:00) MCHC: 34.2 gm/dL (09/01/22 22:50:00) RDW: 13 % (09/01/22 22:50:00) Platelet: 281 E9/L (09/01/22 22:50:00) MPV: 8.2 fL (09/01/22 22:50:00) (more content not included)... Normal [facility] Comment on above: Result Comment: Nadine yoko Signed By: Coleman Ludwig DO\.br\Date and Time Signed: 09/02/22 00:37 EST ED Patient Education Noteon 09-02-2022 ED Patient Education Note Gastroenterology Nausea and Vomiting, Adult Nausea is the feeling that you have an upset stomach or that you are about to vomit. Vomiting is when stomach contents are thrown up and out of the mouth as a result of nausea. Vomiting can make you feel weak and cause you to become dehydrated. Dehydration can make you feel tired and thirsty, cause you to have a dry mouth, and decrease how often you urinate. Older adults and people with other diseases or a weak disease-fighting system (immune system) are at higher risk for dehydration. It is important to treat your nausea and vomiting as told by your health care provider. Follow these instructions at home: Watch your symptoms for any changes. Tell your health care provider about them. Follow these instructions to care for yourself at home. Eating and drinking ? Take an oral rehydration solution (ORS). This is a drink that is sold at pharmacies and retail stores. ? Drink clear fluids slowly and in small amounts as you are able. Clear fluids include water, ice chips, low-calorie sports drinks, and fruit juice that has water added (diluted fruit juice). ? Eat bland, [id number] foods in small amounts as you are able. These foods include bananas, applesauce, rice, lean meats, toast, and crackers. ? Avoid fluids that contain a lot of sugar or caffeine, such as energy drinks, sports drinks, and soda. ? Avoid alcohol. ? Avoid spicy or fatty foods. General instructions ? Take [id number] and prescription medicines only as told by your health care provider. ? Drink enough fluid to keep your urine pale yellow. ? Wash your hands often using soap and water. If soap and water are not available, use hand hand decorator. ? Make sure that all people in your household wash their hands well and often. ? Rest at home while you recover. ? Watch your condition for any changes. ? Breathe slowly and deeply when you feel nauseated. ? Keep all follow-up visits as told by your health care provider. This is important. Contact a health care provider if: ? Your symptoms get worse. ? You have new symptoms. ? You have a fever. ? You cannot drink fluids without vomiting. ? Your nausea does not go away after 2 days. ? You feel light-headed or dizzy. ? You have a headache. ? You have muscle cramps. ? You have a rash. ? You have pain while urinating. Get help right away if: ? You have pain in your chest, neck, arm, or jaw. ? You feel extremely weak or you faint. ? You have persistent vomiting. ? You have vomit that is bright red or looks like black coffee grounds. ? You have bloody or black stools or stools that look like tar. ? You have a severe headache, a stiff neck, or both. ? You have severe pain, cramping, or bloating in your abdomen. ? You have difficulty breathing, or you are breathing very quickly. ? Your heart is beating very quickly. ? Your skin feels cold and clammy. ? You feel confused. ? You have signs of dehydration, such as: ? Dark urine, very little urine, or no urine. ? Cracked lips. ? Dry mouth. ? Sunken eyes. ? Sleepiness. ? Weakness. These symptoms may represent a serious problem that is an emergency. Do not wait to see if the symptoms will go away. Get medical help right away. Call your local emergency services (911 in the [place] Do not drive yourself to the hospital. Summary ? Nausea is the feeling that you have an upset stomach or that you are about to vomit. As nausea gets worse, it can lead to vomiting. Vomiting can make you feel weak and cause you to become dehydrated. ? Follow instructions from your health care provider about eating and drinking to prevent dehydration. ? Take rhfv-nsd-kvzttha and prescription medicines only as told by your health care provider. ? Contact your health care provider if your symptoms get worse, or you have new symptoms. ? Keep all follow-up visits as told by your health care provider. This is important. This information is not intended to replace advice given to you by your health care provider. Make sure you discuss any questions you have with your health care provider. Document Released: 08/11/2006 Document Revised: 12/03/2019 Document Reviewed: 01/19/2019 Elsevier Patient Education ? 2019 [employer]. Normal [facility] ED Patient Summaryon 023 ED Patient Summary [address] [address] Patient Discharge Instructions Person Information Name: ROQUE PIERSON Age: 22 Years Arrival Date: 09/01/2022 22:21:17 Discharge Diagnosis: N&V (nausea and vomiting) Primary Care Physician: Caryn Aviles MD Provider Information Primary Provider: Coleman Ludwig DO Advanced Pressroom Foreman:None The exam and treatment you received in the Emergency Department were for an urgent problem and are not intended as complete care. It is important that you follow up with a doctor, nurse practitioner, or physician?s assistant signal maintainer for ongoing care. If your symptoms become worse or you do not improve as expected and you are unable to reach your usual health care provider, you should return to the Emergency Department. We are available 24 hours a day. ROQUE PIERSON has been given the following list of patient education materials, prescriptions and follow-up instructions: Follow-up Instructions: With: Address: When: Caryn [place] [place] [address] Business (1) In 3 days In the event that this physician does not participate in your insurance network, please consult with your insurance company to find a nearby participating provider. Patient Education Materials: Nausea and Vomiting, Adult A MESSAGE TO ALL PATIENTS REGARDING OPIOIDS PRESCRIPTION OPIOIDS: WHAT YOU NEED TO KNOW Prescription opioids can be used to help relieve ctmidocf-rw-kzeyxl pain and are often prescribed following a surgery or injury, or for certain health conditions. These medications can be an important part of the treatment but also come with serious risks. It is important to work with your healthcare provider to make sure you are getting the safest, most effective care. WHAT ARE THE RISKS AND SIDE EFFECTS OF OPIOID USE? Prescription opioids carry serious risks of addiction and overdose, especially with prolonged use. An opioid overdose, often marked by slowed breathing, can cause sudden . The use of prescription opioids can have a number of side effects as well, even when taken as directed: ? Tolerance?meaning you might need to take more of the medication for the same pain relief ? Physical dependence?meaning you have symptoms of withdrawal when a medication is stopped ? Increased sensitivity to pain ? Constipation ? Nausea, vomiting, and dry mouth ? Sleepiness and dizziness ? Confusion ? Depression ? Low levels of testosterone that can result in lower sex drive, energy, and strength ? Itching and sweating RISKS ARE GREATER WITH: ? History of drug misuse, substance use disorder, or overdose ? Mental health conditions (such as depression or anxiety) ? Sleep apnea ? Older age (65 years and older) ? Avoid alcohol while taking prescription opioids. Also, unless specifically advised by your health care provider, medications to avoid include: ? Benzodiazepines (such as Xanax or Valium) ? Muscle relaxants (such as Soma or Flexeril) ? Hypnotics (such as Ambien or Lunesta) ? Other prescription opioids KNOW YOUR OPTIONS Talk to your health care provider about ways to manage your pain that don?t involve prescription opioids. Some of these options may actually work better and have fewer risks and side effects. Options may include: ? Pain relievers such as acetaminophen, ibuprofen, and naproxen ? Some medication that are also used for depression or seizures ? Physical therapy and exercise ? Cognitive behavioral therapy, a psychological, goal-directed approach, in which patients learn how to modify physical, behavioral, and emotional triggers of pain and stress. IF YOU ARE PRESCRIBED OPIOIDS FOR PAIN: ? Never take opioids in greater amounts or more often than prescribed. ? Follow up with your primary health care provider. o Work together to create a plan on how to manage your pain. o Talk about ways to help manage your pain that don?t involve prescription opioids. o Talk about any and all concerns and side effects. ? Help prevent misuse and abuse o Never sell or share prescription opioids. o Never use another person?s prescription opioids. ? Store prescription opioids in a secure place and out of reach of others (this may include visitors, children, friends, and family). ? Safely dispose of unused prescription opioids: Find your community drug take-back program or your pharmacy mail-back program, or flush them down the toilet, following guidance from the Food and Drug Administration (www.fda.gov/Drugs/R esourcesForYou). ? Visit www.cdc.gov/drugover dose to learn about the risks of opioids abuse and overdose. ? If you believe you may be struggling with addiction, tell your health medicare biller and ask for guidance or call [facility]?S National Helpline at 5-699-799-SLZS. Source: Department of (more content not included)... Normal [facility] Hep Func Panelon 09-02-2022 Bilirubin.indirect [Mass or moles/Vol] UTC Abnormal 0.1-0.9 [facility] Comment on above: Result Comment: Resu lt verified by Discern Rule. Performed result UT (Unable to Calculate) was sent as an Alpha code due the inability to calculate a valid numeric value. Performed By: #### 2 289171, 8643377, 6245998, 7130046, 22540556, 4482563, 1482808 #### [facility] [address] [place] [address] Albumin [Mass/Vol] 4.2 g/dL Normal 3.3-5.0 [facility] Comment on above: Performed By: #### 2 426790, 5828724, 3798821, 5129431, 11295368, 7507859, 4732603 #### [facility] [address] [place] [address] Albumin/Globulin (S) [Mass conc ratio] 1.4 Normal 1.1-2.2 [facility] Comment on above: Performed By: #### 2 427579, 6049967, 2410715, 5241811, 28232786, 7024904, 2443619 #### [facility] [address] [place] [address] ALP [Catalytic activity/Vol] 63 Int._Unit/L Normal 21-98 [facility] Comment on above: Performed By: #### 2 271800, 2750183, 0748472, 1230609, 97605631, 6526634, 8016144 #### [facility] [address] [place] [address] ALT No additional P-5'-P [Catalytic activity/Vol] 29 Int._Unit/L Normal 6-46 [facility] Comment on above: Performed By: #### 2 071085, 8949838, 4021309, 5426036, 25975961, 8459041, 5306001 #### [facility] [address] [place] [address] AST [Catalytic activity/Vol] 18 Int._Unit/L Normal 5-43 [facility] Comment on above: Performed By: #### 2 592239, 2614911, 1938094, 4398213, 29129735, 6435069, 3608688 #### [facility] [address] [place] [address] Bilirubin [Mass/Vol] 0.8 mg/dL Normal 0.0-1.1 [facility] Comment on above: Performed By: #### 2 224139, 9800069, 3105619, 8338460, 36446807, 9442299, 0939414 #### [facility] [address] [place] [address] Bilirubin.direct [Mass/Vol] mg/dL Normal 0.1-0.4 [facility] Comment on above: Performed By: #### 2 915035, 3374552, 1570025, 2055312, 36168717, 2365705, 2881343 #### [facility] [address] [place] [address] Globulin (S) [Mass/Vol] 3.1 g/dL Normal 1.4-4.0 [facility] Comment on above: Performed By: #### 2 517274, 7859961, 3231323, 3915654, 33199916, 1096519, 0071855 #### [facility] [address] [place] [address] Protein [Mass/Vol] 7.3 g/dL Normal 6.0-7.8 [facility] Comment on above: Performed By: #### 2 487554, 3654533, 0932562, 8998198, 46731306, 5979821, 6093978 #### [facility] [address] [place] [address] Lipase Levelon 09-02-2022 Lipase [Catalytic activity/Vol] 26 U/L Normal 13-58 [facility] Comment on above: Performed By: #### 2 137411, 7436597, 7226853, 1154527, 66544159, 4554259, 1211460 #### [facility] [address] [place] [address] UA With Cult Reflexon 2022 Bacteria LM Ql (Urine sed) TRACE Normal Trace [facility] Comment on above: Performed By: #### 1 5810583 ####[facility] [address] [place] [address] Bilirubin Ql (U) Negative Normal Negative [facility] Comment on above: Performed By: #### 1 1214189 ####[facility] [address] [place] [address] Clarity (U) CLEAR Normal Clear [facility] Comment on above: Performed By: #### 1 8540889 ####[facility] [address] [place] [address] Color (U) YELLOW Normal Yellow [facility] Comment on above: Performed By: #### 1 6693842 ####[facility] [address] [place] [address] Epithelial cells.squamous LM.HPF (Urine sed) [#/Area] 0-2 Normal 0-2 [facility] Comment on above: Performed By: #### 1 2458038 ####[facility] [address] [place] [address] Glucose Test strip (U) [Mass/Vol] Negative Normal Negative [facility] Comment on above: Performed By: #### 1 7486121 ####[facility] [address] [place] [address] Hemoglobin Ql (U) Negative Normal Negative [facility] Comment on above: Performed By: #### 1 7136117 ####[facility] [address] [place] [address] Ketones (U) [Mass/Vol] 3+ Abnormal Negative [facility] Comment on above: Performed By: #### 1 7746535 ####[address] [address] [place].plasma/Lithiu m.RBC (Bld) [Mass ratio] 0-3 Normal 0-3 [facility] Comment on above: Performed By: #### 1 2724992 ####[address] [address] Mucus Ql (Urine sed) 2+ Normal [facility] Comment on above: Performed By: #### 1 7871163 ####[address] [address] Nitrite Ql (U) Negative Normal Negative [facility] Comment on above: Performed By: #### 1 2986608 ####[address] [address] pH (U) 7.5 [pH] Invalid Interpretation Code 5.0-9.0 [facility] Comment on above: Performed By: #### 1 4954168 ####[address] [address] Protein (U) [Mass/Vol] Negative Normal Negative [facility] Comment on above: Performed By: #### 1 4219148 ####[address] [address] Specific gravity (U) [Rel density] 1.020 Invalid Interpretation Code 1.005-1.030 [facility] Comment on above: Performed By: #### 1 9820430 ####[address] [address] Type of Urine collection method Clean Catch Normal [facility] Comment on above: Performed By: #### 1 0605220 ####[address] [address] Urobilinogen Qn (U) 0.2 {Andrea'U}/dL Normal 0.0-1.0 [facility] Comment on above: Performed By: #### 1 3506720 ####[facility] [address] [place] [address] WBC Auto Ql (U) Negative Normal Negative [facility] Comment on above: Performed By: #### 1 0614348 ####[facility] [address] [place] [address] WBC LM.HPF (Urine sed) [#/Area] 0-5 Normal 0-5 [facility] Comment on above: Performed By: #### 1 0486162 ####[facility] [address] [place] [address] eGFRon 09-02-2022 GFR/1.73 sq M.predicted among blacks MDRD (S/P/Bld) [Vol rate/Area] mL/min/{1.73_m2} Normal >=59 [facility] Comment on above: Order Comment: Order Added by Discern Expert. Result Comment: eGFR is race adjusted. AA=. Performed By: #### 2 524003, 5684754, 8835651, 3036552, 90110254, 4231202, 5440557 #### [facility] [address] [place] [address] GFR/1.73 sq M.predicted among non-blacks MDRD (S/P/Bld) [Vol rate/Area] mL/min/{1.73_m2} Normal >=59 [facility] Comment on above: Order Comment: Order Added by Discern Expert. Result Comment: Electric Motor Tester emil kidney disease could be indicated at eGFR's of less than 60 mL/min/1.73m2. Kidney failure is indicated at less than 15 mL/min/1.73m2. Performed By: #### 2 561549, 9601843, 3428816, 1467927, 01360368, 6439237, 2819406 #### [facility] [address] [place] [address] ABO/Rhon 08-29-2022 ABO/Rh Positive Invalid Interpretation Code [facility] Comment on above: Performed By: #### 1 7681283 #### [facility] [address] [place] [address] Auto Diffon 08-29-2022 Basophils/100 WBC (Bld) 0.6 % Normal 0.0-2.0 [facility] Comment on above: Order Comment: Order Added by Discern Expert. Performed By: #### 2 138213, 5158210, 9039426, 0572991, 67352111, 5532903, 4952613 #### [facility] [address] [place] [address] Basophils/Leukocytes Auto (Bld) [Pure # fraction] 0.0 E9/L Normal 0.0-0.2 [facility] Comment on above: Order Comment: Order Added by Discern Expert. Performed By: #### 2 226820, 5688332, 3053168, 8104512, 65202666, 7248959, 6233752 #### [facility] [address] [place] [address] Eosinophils/100 WBC (Bld) 5.7 % Normal 0.0-8.0 [facility] Comment on above: Order Comment: Order Added by Discern Expert. Performed By: #### 2 646394, 0764347, 0032154, 6025011, 06457878, 1549303, 9058402 #### [facility] [address] [place] [address] Eosinophils/Leukocyte s Auto (Bld) [Pure # fraction] 0.5 E9/L Normal 0.0-0.5 [facility] Comment on above: Order Comment: Order Added by Discern Expert. Performed By: #### 2 687562, 2092575, 5456575, 0829583, 11052062, 4183472, 8830361 #### [facility] [address] [place] [address] Lymphocytes/100 WBC (Bld) 20.5 % Normal 14.0-50.0 [facility] Comment on above: Order Comment: Order Added by Discern Expert. Performed By: #### 2 967095, 5388265, 7113541, 0121906, 19852784, 2025026, 4515865 #### [facility] [address] [place] [address] Lymphocytes/Leukocyte s Auto (Bld) [Pure # fraction] 1.7 E9/L Normal 1.0-4.0 [facility] Comment on above: Order Comment: Order Added by Discern Expert. Performed By: #### 2 654851, 1554609, 4094114, 5336330, 70931642, 7720400, 4511056 #### [facility] [address] [place] [address] Monocytes/100 WBC (Bld) 8.4 % Normal 4.0-14.0 [facility] Comment on above: Order Comment: Order Added by Discern Expert. Performed By: #### 2 854898, 5513086, 2334590, 6328865, 98648054, 3221552, 8273025 #### [facility] [address] [place] [address] Monocytes/Leukocytes Auto (Bld) [Pure # fraction] 0.7 E9/L Normal 0.2-1.0 [facility] Comment on above: Order Comment: Order Added by Discern Expert. Performed By: #### 2 139098, 1822116, 0784672, 8282398, 90214724, 6963682, 2963136 #### [facility] [address] [place] [address] Neutrophils/100 WBC (Bld) 64.8 % Normal 36.0-75.0 [facility] Comment on above: Order Comment: Order Added by Discern Expert. Performed By: #### 2 519061, 3162450, 5534657, 0259880, 29006269, 8995485, 6598889 #### [facility] [address] [place] [address] Neutrophils/Leukocyte s Auto (Bld) [Pure # fraction] 5.3 E9/L Normal 2.0-7.5 [facility] Comment on above: Order Comment: Order Added by Discern Expert. Performed By: #### 2 010732, 9510278, 4755208, 8655106, 36358687, 9350815, 2936263 #### [facility] [address] [place] [address] BMPon 08-29-2022 Creatinine [Mass/Vol] 0.6 mg/dL Normal 0.5-1.3 [facility] Comment on above: Performed By: #### 2 345335, 8316040, 8731570, 1521814, 61833297, 2510641, 1469427 #### [facility] [address] [place] [address] Urea nitrogen [Mass/Vol] 6 mg/dL Normal 5-21 [facility] Comment on above: Performed By: #### 2 334185, 3976647, 8902285, 2897669, 15993186, 6262477, 7189792 #### [facility] [address] [place] [address] Urea nitrogen/Creatinine [Mass ratio] 10 No Units Normal 10-20 [facility] Comment on above: Performed By: #### 2 677830, 1987124, 7475429, 9983173, 04465279, 6808110, 7517891 #### [facility] [address] [place] [address] Anion gap [Moles/Vol] 11 mmol/L Normal 6-16 [facility] Comment on above: Performed By: #### 2 092740, 5300118, 0639034, 3285785, 79482848, 5261930, 5127304 #### [facility] [address] [place] [address] Calcium [Mass/Vol] 9.1 mg/dL Normal 8.9-11.1 [facility] Comment on above: Performed By: #### 2 063058, 4062953, 6556947, 5163997, 67914419, 9423668, 5121427 #### [facility] [address] [place] [address] Chloride [Moles/Vol] 105 mmol/L Normal 101-111 [facility] Comment on above: Performed By: #### 2 234426, 3064672, 5069898, 2128431, 86809557, 3662577, 8402601 #### [facility] [address] [place] [address] CO2 [Moles/Vol] 23 mmol/L Normal 21-31 [facility] Comment on above: Performed By: #### 2 136205, 5406785, 1336983, 7003745, 40533940, 0767155, 5654520 #### [facility] [address] [place] [address] Glucose [Mass/Vol] 103 mg/dL Normal 55-199 [facility] Comment on above: Result Comment: If t his glucose result represents a fasting glucose, interpretation should refer to the following reference range: 55-99 mg/dL Performed By: #### 2 985892, 7606310, 4122969, 3663600, 94333774, 2418413, 8903662 #### [facility] [address] [place] [address] Potassium [Moles/Vol] 3.7 mmol/L Normal 3.5-5.3 [facility] Comment on above: Performed By: #### 2 050591, 9030975, 9107675, 6272963, 19195247, 5929606, 5047168 #### [facility] [address] [place] [address] Sodium [Moles/Vol] 135 mmol/L Normal 135-145 [facility] Comment on above: Performed By: #### 2 877768, 6815556, 7545871, 0369318, 18747657, 0475881, 6330713 #### [facility] [address] [place] [address] BhCG Quanton 08-29-2022 [place] [address] m[IU]/mL High 1-3 [facility] Comment on above: Result Comment: GEST ATIONAL AGE HCG RANGE (mIU/mL) NON- <1-3 0.2-1 WEEKS 5-50 1-2 WEEKS 50-500 2-3 WEEKS 100-5,000 3-4 WEEKS 500-10,000 4-5 WEEKS 1,000-50,000 5-6 WEEKS 10,000-100,000 6-8 WEEKS 15,000-200,000 8-12 WEEKS 10,000-100,000 Performed By: #### 2 013455, 1183090, 0456955, 4050372, 97099357, 5828282, 0826973 ####[facility] [address] [place] [address] CBC w/ Auto Diffon 3 Erythrocyte distribution width (RBC) [Ratio] 13.1 % Normal 10.9-14.2 [facility] Comment on above: Performed By: #### 2 082864, 1100425, 1250910, 1576614, 38754898, 6418958, 3985076 #### [facility] [address] [place] [address] Hematocrit (Bld) [Volume fraction] 39.2 % Normal 34.0-46.0 [facility] Comment on above: Performed By: #### 2 425625, 8808235, 4491602, 1431545, 36750157, 1433401, 1985972 #### [facility] [address] [place] [address] Hemoglobin (Bld) [Mass/Vol] 13.5 g/dL Normal 12.0-16.0 [facility] Comment on above: Performed By: #### 2 250799, 0918908, 4184954, 9685141, 22700046, 6908819, 2705603 #### [facility] [address] [place] [address] MCH (RBC) [Entitic mass] 29.5 pg Normal 27.0-34.0 [facility] Comment on above: Performed By: #### 2 154753, 0802476, 2949925, 7412837, 20598584, 8693288, 6507432 #### [facility] [address] [place] [address] MCHC (RBC) [Mass/Vol] 34.3 g/dL Normal 31.4-36.0 [facility] Comment on above: Performed By: #### 2 731969, 6012536, 8220897, 0828721, 67666986, 5443479, 3953931 #### [facility] [address] [place] [address] MCV (RBC) [Entitic vol] 85.8 fL Normal 80.0-100.0 [facility] Comment on above: Performed By: #### 2 050380, 6404920, 3089946, 9212490, 82584993, 7587901, 4964548 #### [facility] [address] [place] [address] Platelet mean volume (Bld) [Entitic vol] 8.3 fL Normal 6.4-10.8 [facility] Comment on above: Performed By: #### 2 047460, 5371718, 4915943, 4301309, 59727012, 1645842, 8549772 #### [facility] [address] [place] [address] Platelets (Bld) [#/Vol] 279.0 E9/L Normal 150.0-500.0 [facility] Comment on above: Performed By: #### 2 093476, 2742858, 4096997, 2867249, 52169055, 5134977, 1171116 #### [facility] [address] [place] [address] RBC (Bld) [#/Vol] 4.6 E12/L Normal 4.3-5.9 [facility] Comment on above: Performed By: #### 2 259447, 5137714, 7873658, 3615216, 99156245, 1344770, 9840370 #### [facility] [address] [place] [address] WBC corrected for nucl RBC Auto (Bld) [#/Vol] 8.1 E9/L Normal 4.0-11.0 [facility] Comment on above: Performed By: #### 2 087119, 3951474, 9972561, 0019213, 27393827, 4980381, 0347961 #### [facility] [address] [place] [address] [place] [id number] Coding Summary.on 08-29-2022 Coding Summary. CD:[id number] Gh0bWw+PGhlYWQ+PE1FV CHlL13ufRWkcM6KK0hDG B9BYAIBVIFEGO5EMC3ki IQ7TIqjI8SddaFh XwovpNLxOH61GJp1ORZ2 fDdeMYijpO8yoWGdW4z3 WkTdAN67vB16UXvnFNMp CyE6NyIaczunwWFy B3brVsQlgERiAkp+PHRh YmxlIHdpZHRoPScxMDAl XfPknIpmUN8kSa4rODHo LWNvbGxhcHNlOiBj x0pvBNEmDTxgJB1kgIsp J1CxdLD7FNRue0t0Ag44 dHI+KJBoVFU3dGpiPGuv z003IfVhm7xtWMF9 sZCgMLelCXJ2R76zy7B5 PPPrIZJvSUO6qEA7vZ1c aFcqkwvqO7QjeKWgLoH4 CEI4iIPbyE1ehCdb ipanyB3qMne+P21PBQ3C UYHVQS7BZie8A8ZbRmlf dHI+HJ21CUHjTO67eAZn iKJmk3fckSd8JzBp BWMqTTK1uOsdSEidd6Sv JECxA51naNOnj0B7HUTg jBabaOFuDeMukIE4qK0e OTnyfxynx3fajiad Idocw7ppdi63uC64Y47l XOvxEAMbOXU2NCCzYKXw wQzhbv8zkH7vCb5+IDxj y5bjd2cegEq1EvUu CDQgbcTmuGagGAW4a1Fv Rj52A5BjaQhiy5BwJwk9 aj67kLIzn3B7aBD1MFzp YGCtdY8gZWodZpV3 NAAyJmYjxL54rMNjFRck Vm2neXfpzGwsCP5eTBUq eqquFZMkqS5wWWScyPEe cTcsSS4yMGChdlpu r874VaUoUFI5SWNesJWv O2TsuU5mDtZwMATeFOBi Q8MtpFEkKBsgM540LEma MrI7JZClnvGmL8Wr GSTuaFajGrL4l9M8Ot0G i6PybhuiNOH4BPnhPWXh AkI4EtHoPnC3E6ZcFdc5 QSTvaMlmDC7lB9Wq SKOozhflevaavOB9SAUn UUCpfC71nGBfAQudRn5z r7X0m101GVQvBSAzjJ51 Id2oqDlrPXXisAPL xU4htljwe2wsskxxOcMx PPNsNXn5EPc7JFGhmTlt BeSwJBK6LqF0TIM0pGWu mN6tyLngltwhwI1g Oyc+K27qnN1oRNV1XQK0 evhoNGUyssShNE47QA03 G7JeZapmcJVjfFE+PGRp diPhaOrxAU7aQrZh o4uvv5HzHRitO4XdUYHu NCwlZur0CSVmFNH9qZO9 yJ6sJBCgTUdit0Y1bNP4 L0QkqjLdkd2vx1fp IGJkVXoiQ28saMHah6G9 XTIuuWF2ZPBagYwkFvFc fM87Twr+DTLkeCxxu3Bt Jkxgn7hux5gsxMu3 IjMwJSIgdmFsaWduPSJ0 y1TvId76O21gMNcvPVXa UZKqNCMmEBIqxVhhts9d uI9qQp2+PGNvbCB3 eLS1kV0vGXQnIqV0KNnk Y824ZxGlsSFcTabfq6pi d0evoYx1NvJqWWUjauZs nAzkDAC9t7JfPl66 H16uJWqgOTOqYXPeSMRr EFTqeWnagz6zeN8hXn5+ AN2aq5eyfw94bF66aDP+ HPImTLV5aOnaUWkf YRAlsX3rKIhaRlA1TPId CqBmyG03hGCbBSfhTb7i hZnaaWrmZM6zQYVmhvkt m349NdIua9ehPNGy cKDtNMjdQPU7P23hg9O0 VZPzHKXpREX5iLO6sB5s bGlnbjogbGVmdDsgdmVy yMroQZauTHnkG760 IHRvcDsnPlBhdGllbnQg FxOsYNl2I3VqJgw6MIBs qTyfCW7onPTaURfoYn0l aUfqcPsvRX2iNWYe egbwx181PtClu6avOSOu fAUzTHeeAMF9L25du2X6 RWHpMHIuGDQ7tVL1qU9v bGlnbjogbGVmdDsg vvExiRimDJlkGIrvP025 IHRvcDsnPkJpcnRoIERh gXM9WQ21VV23jJJbp9Q6 kKP5K5YbHDHnymcj ggdocLK0UUIeYKYzdM94 Qt5xsAvlPm7nNNWpZJR4 QSBzrLYwI4IuhN7eSlQu JKKiRBBvW2UxmFUk HZyqO087NAslToR1EDLo zdQhW7QdPELgzBkyDpB5 n9B7Rc7ZE9G9VN15TH18 nDAgc7L7bKL2Y9Dn GTPytmmxmgsfgKG1SSAd OTNssS06Ea7vbBnoLd4n YTLeABP2BKIjtEAsY7Yh kI8xFcCdSXVrIRXv N7TwfVMdOUcpR740HHhl MbQ5LOBhqxWmT4OiXSZs bOhiWhA2i5D1Ax6NNSn8 MF47LE70cJEgw9J0 yCO7I7TsCNAssrigqtcm lLU3ULUlQPMayP54Ze2q pWgmJw0sGDQhGJP7THPs oAJpD8LevK4tFsQx VUBvVGNwG7MjbSPpFAhs L473JZbjHkK6AQLzsgWt J3YxOWIuzMpvBzV1d3T2 Rw0NJQBoPZ85ZLQ1 pIX3EM05UV72C0XkOwik dGFibGU+PHRhYmxlIHdp ZHRoPScxMDAlJyBzdHls BC8pHy2kGAYwHNVs zCehdGBhNbBhj0lsJLFf SBemWX8uwDmjL3MphOI9 MLYvl1f6Ra20M23lP2Xg dXA+FYMlzIG4sUQ9 vH3tEkQuNqM9ZUuiH980 ImObyLRfHpoam2ojh9fj fOb5UrB1DKKnmoBqbSiz VLE9h4RsQv40U38k IHdpZHRoPSIxNSUiIHZh qYdnzh5vlW1bWz5+PGNv vZX8cBM4bS6kDiGjShY1 BIctJ680JyTexTPx Nwpwh6twn3ipuAb9OtSr LFTfjlClpJaxLEA7e9Vl Hw88W6LvoVgkw0VjFtl8 vn88mVDoq1G5oQH8 A1BpPKFyaphoaJWpsDlf QC4bEECzdytmKCAviD5g QXXeO0y8PeCnEnD9JIoj N4HqnoP6BJJtsDRw WHxoZHL6W87wx1O6RKMm KHRfNFI8vKG9zQ4zmLtx bjogbGVmdDsgdmVydGlj DOnmTLwaG323LYFq wNquEFGeuH6kGLKglDJf dKpqGM0lKPYlpfwxYg6M CPOEZDBVTTKONRUVKX2T LS07C6WkPzl6MPYf rQbxSH4sxAYrSMcxIn8u rPlriFhvMV6wTUFcuvki INAnkE9kHZSxjACjaDrs DE1rBONrythjj328 IzUsCIU7UNIltINhM1Oz vO7eMjXgMBNaKAZdY5Fy jPHnQDpgC746FSltFqC3 ZFKwwtGnJ9UiJSEu kLejVsQ4t3Y1Fq3uCU0f SF9iUDNnEG65ZK18gAIp s7L2wXX1S1RuZORsyneo ktitxWU3IGZdMRGr iC32pDRbFJtbFc3wh1R6 e588DOVzUHMnzH55Wd7b pVwnHSAzeMVEhL2cxlrr m8mkhfbeZtBgTVFp DHo0XEu4EJFkqYoyXzUn TER1NsS6NAE9cWZjzL0n sHwcsplgnK6sYix+MjEg KQKbciZ5Q6AyByc9 TOGfoCclDT5buKQzBHky La4uyZhfwVknJQ5sROAh mavkVHAtuN6hWJUvbEFy zFrfNN0rNARyhehx x142RfPzQRV3ECMrlIAz D0XwlR0xBlMbDZPrSNWa R9QsrSVuEEolG697NGmf YzH0DARdsbUgA5Ah FQLtzNyeYjQ0h2B9Rp8R SP9owUO6L7RoHec4OZTe vJenPD7ngVZaOBknLc3t pSogwPtfJM9tKBUu baayFFGqdW8tRBUklEHb wBzkHU6fFMJkrjjqy746 DxZbTKP9XXLbsMTvR6Nc xB7fZeWxQBOqBTAy K7TmzNLnIBufL009CJad WgS6OHNbpyHpP6LsAZEt vEjdVyZ8s4J8Nx2KpKVm C2MeJ7v4P9MnPrum dHI+WM27EAJtZB00gDVo dXHgv6cdtTz2FtJdRUFh NJJ6jKyuOViox1KyHCXa M15irDIec9U2VFAv iKnhoVPmQkTfoYE3bM9e UXahlvdbg4xuakvhLopj h7ewll83nP94V18gIDar ZHRoPSIzMCUiIHZh gYnysi2jwQ8kQp6+PGNv kMK4bKI3nK5nJqLbLqS5 GQxyG288XlCicHUuBmra n7jjg6tefAw2VtRr NSTuzbEgoYyxAJS3x4Yv Db37X71yXGcsWYJoJVBj SXJcBQZncTotgp9blZ7a Ii8+GV7zq2ueud50 tC05aNV+ZLThXVC6cAgv CDgxAGEwgW9bWNauGdB1 DBNxAoBqlI33eLDmWEtl Mm3fmPtobYfvIO8t AQZurjcha604ZxVfa1ga CPViyBLrMKsoKFS6M92m s0L4KDJuRCYqWZQ7xEN9 gL4zeNofrcpzcFWd dDsgdmVydGljYWwtYWxp L619OMUfzUosLvNgxMRa F7ezxeDFXC3iCncbqZM+ FVAhVYS8gKmmKObu URCktP0gRIDjT7i3FdSq WpJ2JGukN2OqpeZ6BMHs mXFaYNAetTTDrN9vztpf f7aupgaaJhWhRALn JFd9BBy2HCBrpVnqUvWs ZXB5AlU7OES4mRRjwE3l aRtqmvxwqF4dMwk+RklO OjwvdGQ+PHRkIHN0 oRpzQMxqGWEvpJ6bRDDl H3e9NkGsHeY0ZOimV6Kw enC8DOCydWJlAUUxdBOK kK7zmfdrn2kxdqry WrRdCOOzZWn9GGj9CBIo fNtwObFuSOA6AnF4KZM2 uXCdtJ6piMtizlnjzS6m Oyc+TVJOOjwvdGQ+ GVJfRJI3qRhoCKieKWCy oX1mZIUqH9o9FcSqLoV8 TVnuS5QfsyM7MHYkjSSa JNXpsLMWnT2vktrn x7uhamsbMgHmRLBjMOg4 RLf5TGOqkAltAzHeWXO1 DlP3MLT1dJElxJ2quVum polugW7gGow+UGF5 MWY4FE42BV08K1FcZzis dGFibGU+PHRhYmxlIHdp ZHRoPScxMDAlJyBzdHls LL3lGu3wWVTlEDJm bGxh (more content not included)... Normal [facility] Discharge Instructionson Discharge Instructions [id number] Normal [facility] ED Clinical Summaryon 2022 ED Clinical Summary [place] [id number] ED Clinical Summary Person Information Name: ROQUE PIERSON [facility] Age: 22 Years : 2000 Sex: Female Language: Serbian PCP: Delfin Urbano MD Marital Status: Single Visit Id: Visit Reason: Vomiting - ; Abdominal pain; ABD PAIN Speciality: Acuity: 3 Enc Type: Emergency Med Service: Emergency Arrival: 08/28/2022 21:27:40 Discharge: 08/29/2022 01:49:33 LOS: 000 04:22 Checkin: 08/28/2022 21:27:40 Checkout: 08/29/2022 01:49:33 Dispo Type: Home (Routine DC) EVENTS: Event Name Event Status Request Date/Time Start Date/Time Complete Date/Time Arrive Complete 08/28/2022 21:27:40 08/28/2022 21:27:40 08/28/2022 21:27:40 Document Home Meds Request 08/28/2022 21:27:40 Triage Complete 08/28/2022 21:27:40 08/28/2022 21:35:21 08/28/2022 21:35:21 Registration Complete 08/28/2022 21:31:03 08/28/2022 21:31:03 08/28/2022 21:31:03 Reg Complete Request 08/28/2022 21:31:03 Reg Bed Request Complete 08/28/2022 21:31:03 08/28/2022 21:31:03 08/28/2022 21:31:03 Bed Assign Complete 08/28/2022 21:36:55 08/28/2022 21:36:55 08/28/2022 21:36:55 Dr Exam Complete 08/28/2022 21:36:55 08/28/2022 21:39:33 08/28/2022 21:39:33 RN Exam Complete 08/28/2022 21:36:55 08/28/2022 21:48:32 08/28/2022 21:48:32 Registration Request 08/28/2022 21:39:33 US Complete 08/28/2022 21:46:31 08/28/2022 22:57:00 08/28/2022 23:22:37 Pending Labs Complete 08/28/2022 21:46:31 08/29/2022 00:50:18 Blood Collect Request 08/28/2022 21:46:31 Lab Complete 08/28/2022 21:46:31 08/29/2022 00:50:18 Urine Collect Complete 08/28/2022 21:46:31 08/29/2022 00:50:18 Patient Care Complete 08/28/2022 21:46:31 08/29/2022 00:33:11 Pending Labs Complete 08/28/2022 21:57:26 08/28/2022 21:57:26 08/28/2022 22:19:29 Lab Complete 08/28/2022 21:57:26 08/28/2022 21:57:26 08/28/2022 22:19:29 Pending Labs Complete 08/28/2022 21:58:46 08/28/2022 21:58:46 08/28/2022 22:55:23 Lab Complete 08/28/2022 21:58:46 08/28/2022 21:58:46 08/28/2022 22:55:23 Pending Labs Complete 08/28/2022 22:06:32 08/28/2022 22:06:32 08/28/2022 22:06:41 Lab Complete 08/28/2022 22:06:32 08/28/2022 22:06:32 08/28/2022 22:06:41 Meds Admin Complete 08/29/2022 00:32:09 08/29/2022 00:39:47 Meds Admin Complete 08/29/2022 01:01:36 08/29/2022 01:24:14 Meds Admin Complete 08/29/2022 01:04:11 08/29/2022 01:40:07 Discharge Complete 08/29/2022 01:36:56 08/29/2022 01:49:39 08/29/2022 01:49:39 Transfer Complete 08/29/2022 01:49:39 08/29/2022 01:49:39 08/29/2022 01:49:39 ADDRESS: [address] [place] [id number] PHYS DOC NOTES: MEDICAL INFORMATION: Prescriptions Given: Medications to Continue Taking That Have Changed Printed Prescriptions START: ondansetron (Zofran ODT 4 mg Tab-Dis) 1 Tablets By Mouth every 6 hours as needed Nausea/Vomiting. Refills: 0. Other Medications START: ondansetron (Zofran 4 mg Tab) 1 Tablets By Mouth every 6 hours as needed Nausea. Take one tab by mouth every six hours as needed for nausea. Refills: 0. START: ondansetron (Zofran 4 mg Tab) 1 Tablets By Mouth every 8 hours as needed Nausea/Vomiting. Refills: 0. Medications to Continue with No Changes Other Medications cetirizine (Zyrtec) 5 Milligram By Mouth every day. famotidine (Pepcid 20 mg Tab) 1 Tablets By Mouth every day. Refills: 0. fluticasone nasal (Childrens Flonase 50 mcg/inh nasal spray) 1 Sprays Nasal Inhalation every day. PATIENT EDUCATION INFORMATION: Instructions: Nausea, Adult; First Trimester of ; Abdominal Pain During Follow up: With: Address: When: Julius CROCKETT [facility], [address] [place] [address] , [place] [address] Business (1) In 3 days 09/01/2022 Comments: Return to the emergency room if your pain gets worse, general bleeding, vomiting or any new symptoms With: Address: When: Delfin Urbano [facility], [address] [place], [place] [id number] Business (1) In 3 days DIAGNOSIS: 1:Abdominal pain; 2:Intrauterine ; 3:Nausea Normal [facility] ED Note-Physicianon 08-29-19 ED Note-Physician Basic Information Time Seen: Alfredito Brennan M.D. 08/28/2022 21:39 Chief Complaint pt to ED with c/o abd pain and vomtiing x2 weeks. worsening pain. approx 7 weeks preg per pt. denies diarrhea or vaginal bleeding. History of Present Illness The patient is 22-year-old female 6 weeks and 5 days (G1, ), who presented to the emergency room with abdominal pain. The patient points to periumbilical area. The abdominal pain has been present for past 2 weeks. The pain has been on and off. She is not able to describe it if the pain is sharp or achy or dull. The patient states when the pain comes last for 1 to 2 hours at the time it goes away. Currently the pain is severe. She denies any vaginal bleeding. She reports some white vaginal discharge which has been normal for her. She denies reports nausea but no vomiting. She denies any diarrhea. Denies any burning with urination. She denies any fever, denies any chills. The patient denies any other associated symptoms. Review of Systems Additional ROS info: Except as noted in the above Review of Systems and in the History of Present Illness all other systems have been reviewed and are negative or noncontributory. Physical Exam Vitals & Measurements T: 36.6 ?C(Oral) HR: 72(Monitored) RR: 16 BP: 105/51 SpO2: 99% HT: 172 cm WT: 74.6 kg BMI: 25.22 General: alert, no acute distress Skin: warm, dry Head: no trauma, normocephalic Neck: Trachea midline Eye: normal conjunctiva, sclera clear Cardiovascular: regular rate and rhythm Respiratory: Lungs CTA, respirations non labored, breath sounds equal Gastrointestinal: soft, non distended, no tenderness, no guarding Extremities: no deformity, no trauma Neurological: Alert and oriented, speech normal, no focal neuro deficits Psychiatric: cooperative, affect appropriate for age, Medical Decision Making MEDICAL DECISION MAKING Number and Complexity of Problems Differential Diagnosis: [] [facility] Data External documents reviewed: [] My EKG interpretation: [] My CT interpretation: [] My X-ray interpretation: [] My Ultrasound interpretation: [] Decision rules/scores evaluated: [] Discussed with: [] Treatment and Disposition ED Course: The patient presented with abdominal pain. Her pain is slightly above the umbilicus. She reported nausea. The patient does not look toxic. Blood work reviewed. White count is normal. Her beta hCG is 77,764. The preliminary report of the ultrasound of the pelvis shows intrauterine consistent 7 weeks. heart tone 124. The patient was given IV fluid, Zofran and Pepcid. She declined Bentyl. The patient states she felt better after the Zofran and fluids. Will discharge patient home follow-up with her OB with prescription for Zofran. She is instructed to return to the emergency room if her pain recurs, vomiting, vaginal bleeding or any new symptoms. Shared decision making: Patient's boyfriend and the patient Code status: [] Assessment/Plan 1. Abdominal pain (R10.9: Unspecified abdominal pain) 2. Intrauterine (Z34.90: Encounter for supervision of normal , unspecified, unspecified trimester) 3. Nausea (R11.0: Nausea) Orders: dicyclomine, 20 mg = 2 mL, Injection, IntraMuscular, Once, Stop date 08/29/22 1:03:00 EST, STAT, Start date 08/29/22 1:03:00 EST, 08/29/22 1:03:00 EST famotidine, 20 mg = 2 mL, Soln-IV, IV Push, Once, Stop date 08/29/22 1:01:00 EST, STAT, Start date 08/29/22 1:01:00 EST, 08/29/22 1:01:00 EST ondansetron, 4 mg = 1 tab(s), Oral, q6hr, PRN Nausea/Vomiting, # 12 tab(s), Refills(s) 0 ondansetron, 4 mg = 2 mL, Injection, IV Push, Once, Stop date 08/29/22 0:31:00 EST, STAT, Start date 08/29/22 0:31:00 EST, 08/29/22 0:31:00 EST Sodium Chloride 0.9% intravenous solution, Soln-IV, Misc, Once, Stop date 08/29/22 0:34:34 EST, Physician Stop, 08/29/22 0:34:34 EST Sodium Chloride 0.9% intravenous solution, 1,000 mL, Soln-IV, IV, Once, Stop date 08/29/22 0:31:00 EST, STAT, Start date 08/29/22 0:31:00 EST, Infuse over 61, minute(s) ABO/Rh Automated Diff Basic Metabolic Panel Beta hCG Quantitative CBC w/ Auto Diff eGFR Hepatic Function Panel Lipase Level Saline Lock Insert UA With Cult Reflex US 1st Trimester Medications Administered Given famotidine 10 mg/mL IV Wanda, 20 mg, IV Push NS 1000 ml Bolus, 1000 mL, IV Zofran 4 mg/2 mL Injection, 4 mg, IV Push Disposition Plan Patient Discharge Condition Stable, improved Discharge Disposition Discharged home Discharge Prescription List Prescriptions Zofran ODT 4 mg Tab-Dis, 4 mg= 1 tab(s), Oral, q6hr, PRN Follow-up With When Contact Information Julius CROCKETT In 3 days 09/01/[address] , [place] [address]- Business (1) Additional Instructions: Return to the emergency room if your pain gets worse, general bleeding, vomiting or any new symptoms Delfin Hoy (more content not included)... Normal [facility] Comment on above: Result Comment: Elec tronically Signed By: Anu Ziegler, Alfredito Scott.basil\Date and Time Signed: 08/29/22 03:00 EST ED Patient Education Noteon 08-29-2022 ED Patient Education Note Gastroenterology Nausea, Adult Nausea is the feeling that you have an upset stomach or that you are about to vomit. Nausea on its own is not usually a serious concern, but it may be an early sign of a more serious medical problem. As nausea gets worse, it can lead to vomiting. If vomiting develops, or if you are not able to drink enough fluids, you are at risk of becoming dehydrated. Dehydration can make you tired and thirsty, cause you to have a dry mouth, and decrease how often you urinate. Older adults and people with other diseases or a weak disease-fighting system (immune system) are at higher risk for dehydration. The main goals of treating your nausea are: ? To relieve your nausea. ? To limit repeated nausea episodes. ? To prevent vomiting and dehydration. Follow these instructions at home: Watch your symptoms for any changes. Tell your health care provider about them. Follow these instructions as told by your health care provider. Eating and drinking ? Take an oral rehydration solution (ORS). This is a drink that is sold at pharmacies and retail stores. ? Drink clear fluids slowly and in small amounts as you are able. Clear fluids include water, ice chips, low-calorie sports drinks, and fruit juice that has water added (diluted fruit juice). ? Eat bland, hhwf-bw-iwofup foods in small amounts as you are able. These foods include bananas, applesauce, rice, lean meats, toast, and crackers. ? Avoid drinking fluids that contain a lot of sugar or caffeine, such as energy drinks, sports drinks, and soda. ? Avoid alcohol. ? Avoid spicy or fatty foods. General instructions ? Take yftm-gwx-rgaeryn and prescription medicines only as told by your health care provider. ? Rest at home while you recover. ? Drink enough fluid to keep your urine pale yellow. ? Breathe slowly and deeply when you feel nauseous. ? Avoid smelling things that have strong odors. ? Wash your hands often using soap and water. If soap and water are not available, use hand hand decorator. ? Make sure that all people in your household wash their hands well and often. ? Keep all follow-up visits as told by your health care provider. This is important. Contact a health care provider if: ? Your nausea gets worse. ? Your nausea does not go away after two days. ? You vomit. ? You cannot drink fluids without vomiting. ? You have any of the following: ? New symptoms. ? A fever. ? A headache. ? Muscle cramps. ? A rash. ? Pain while urinating. ? You feel light-headed or dizzy. Get help right away if: ? You have pain in your chest, neck, arm, or jaw. ? You feel extremely weak or you faint. ? You have vomit that is bright red or looks like coffee grounds. ? You have bloody or black stools or stools that look like tar. ? You have a severe headache, a stiff neck, or both. ? You have severe pain, cramping, or bloating in your abdomen. ? You have difficulty breathing or are breathing very quickly. ? Your heart is beating very quickly. ? Your skin feels cold and clammy. ? You feel confused. ? You have signs of dehydration, such as: ? Dark urine, very little urine, or no urine. ? Cracked lips. ? Dry mouth. ? Sunken eyes. ? Sleepiness. ? Weakness. These symptoms may represent a serious problem that is an emergency. Do not wait to see if the symptoms will go away. Get medical help right away. Call your local emergency services (911 in the [place] Do not drive yourself to the hospital. Summary ? Nausea is the feeling that you have an upset stomach or that you are about to vomit. Nausea on its own is not usually a serious concern, but it may be an early sign of a more serious medical problem. ? If vomiting develops, or if you are not able to drink enough fluids, you are at risk of becoming dehydrated. ? Follow recommendations for eating and drinking and take wfjv-nor-xzfqjtv and prescription medicines only as told by your health care provider. ? Contact a health care provider right away if your symptoms worsen or you have new symptoms. ? Keep all follow-up visits as told by your health care provider. This is important. This information is not intended to replace advice given to you by your health care provider. Make sure you discuss any questions you have with your health care provider. Document Released: 09/18/2005 Document Revised: 01/19/2019 Document Reviewed: 01/19/2019 Bundle Patient Education ? 2020 [employer] Obstetrics and Gynecology First Trimester of The first trimester of is from week 1 until the end of week 13 (months 1 through 3). A week after a sperm fertilizes an egg, the egg will implant on the wall of the uterus. This embryo will begin to develop into a baby. Genes from you and your partner will form the baby. The male genes will determine whether the baby will be a boy or a girl. At 6?8 weeks, the eyes and face will be form (more content not included)... Normal [facility] ED Patient Summaryon 023 ED Patient Summary [address] [address] Patient Discharge Instructions Person Information Name: ROQUE PIERSON Age: 22 Years Arrival Date: 08/28/2022 21:27:40 Discharge Diagnosis: 1:Abdominal pain; 2:Intrauterine ; 3:Nausea Primary Care Physician: Delfin Urbano MD Provider Information Primary Provider: Alfredito Brennan M.D. Advanced Pressroom Foreman:None The exam and treatment you received in the Emergency Department were for an urgent problem and are not intended as complete care. It is important that you follow up with a doctor, nurse practitioner, or physician?s assistant signal maintainer for ongoing care. If your symptoms become worse or you do not improve as expected and you are unable to reach your usual health care provider, you should return to the Emergency Department. We are available 24 hours a day. ROQUE PIERSON has been given the following list of patient education materials, prescriptions and follow-up instructions: Follow-up Instructions: With: Address: When: Julius JUSTYNA [facility], [address] [place] [address] [place] [address] [email or web address] (1) In 3 days 09/01/2022 Comments: Return to the emergency room if your pain gets worse, general bleeding, vomiting or any new symptoms With: Address: When: Delfin Urbano [address] [facility], [place] [address] Business (1) In 3 days In the event that this physician does not participate in your insurance network, please consult with your insurance company to find a nearby participating provider. Patient Education Materials: Nausea, Adult; First Trimester of ; Abdominal Pain During A MESSAGE TO ALL PATIENTS REGARDING OPIOIDS PRESCRIPTION OPIOIDS: WHAT YOU NEED TO KNOW Prescription opioids can be used to help relieve oxjfwubs-yr-oaktgv pain and are often prescribed following a surgery or injury, or for certain health conditions. These medications can be an important part of the treatment but also come with serious risks. It is important to work with your healthcare provider to make sure you are getting the safest, most effective care. WHAT ARE THE RISKS AND SIDE EFFECTS OF OPIOID USE? Prescription opioids carry serious risks of addiction and overdose, especially with prolonged use. An opioid overdose, often marked by slowed breathing, can cause sudden . The use of prescription opioids can have a number of side effects as well, even when taken as directed: ? Tolerance?meaning you might need to take more of the medication for the same pain relief ? Physical dependence?meaning you have symptoms of withdrawal when a medication is stopped ? Increased sensitivity to pain ? Constipation ? Nausea, vomiting, and dry mouth ? Sleepiness and dizziness ? Confusion ? Depression ? Low levels of testosterone that can result in lower sex drive, energy, and strength ? Itching and sweating RISKS ARE GREATER WITH: ? History of drug misuse, substance use disorder, or overdose ? Mental health conditions (such as depression or anxiety) ? Sleep apnea ? Older age (65 years and older) ? Avoid alcohol while taking prescription opioids. Also, unless specifically advised by your health care provider, medications to avoid include: ? Benzodiazepines (such as Xanax or Valium) ? Muscle relaxants (such as Soma or Flexeril) ? Hypnotics (such as Ambien or Lunesta) ? Other prescription opioids KNOW YOUR OPTIONS Talk to your health care provider about ways to manage your pain that don?t involve prescription opioids. Some of these options may actually work better and have fewer risks and side effects. Options may include: ? Pain relievers such as acetaminophen, ibuprofen, and naproxen ? Some medication that are also used for depression or seizures ? Physical therapy and exercise ? Cognitive behavioral therapy, a psychological, goal-directed approach, in which patients learn how to modify physical, behavioral, and emotional triggers of pain and stress. IF YOU ARE PRESCRIBED OPIOIDS FOR PAIN: ? Never take opioids in greater amounts or more often than prescribed. ? Follow up with your primary health care provider. o Work together to create a plan on how to manage your pain. o Talk about ways to help manage your pain that don?t involve prescription opioids. o Talk about any and all concerns and side effects. ? Help prevent misuse and abuse o Never sell or share prescription opioids. o Never use another person?s prescription opioids. ? Store prescription opioids in a secure place and out of reach of others (this may include visitors, children, friends, and family). ? Safely dispose of unused prescription opioids: Find your community drug take-back program or your pharmacy mail-back program, or flush them down the toilet, following guidance from (more content not included)... Normal [facility] Hep Func Panelon 08-29-2022 Bilirubin.indirect [Mass or moles/Vol] UTC Abnormal 0.1-0.9 [facility] Comment on above: Result Comment: Resu lt verified by Discern Rule. Performed result UT (Unable to Calculate) was sent as an Alpha code due the inability to calculate a valid numeric value. Performed By: #### 2 [id number] #### [facility] [address] [place] [address] Albumin [Mass/Vol] 4.2 g/dL Normal 3.3-5.0 [facility] Comment on above: Performed By: #### 2 [id number], [id number] #### [facility] [address] [place] [address] Albumin/Globulin (S) [Mass conc ratio] 1.3 Normal 1.1-2.2 [facility] Comment on above: Performed By: #### 2 [id number], [id number], [id number], [id number] #### [facility] [address] [place] [address] ALP [Catalytic activity/Vol] 69 Int._Unit/L Normal 21-98 [facility] Comment on above: Performed By: #### 2 672754, 3640564, 1213699, 4089881, 17686664, 9950000, 5989788 #### [facility] [address] [place] [address] ALT No additional P-5'-P [Catalytic activity/Vol] 57 Int._Unit/L High 6-46 [facility] Comment on above: Performed By: #### 2 127611, 6129506, 2350201, 7887649, 83421744, 7472652, 5360869 #### [facility] [address] [place] [address] AST [Catalytic activity/Vol] 41 Int._Unit/L Normal 5-43 [facility] Comment on above: Performed By: #### 2 705516, 6703135, 6565653, 8257197, 21886651, 2967561, 2098088 #### [facility] [address] [place] [address] Bilirubin [Mass/Vol] 0.4 mg/dL Normal 0.0-1.1 [facility] Comment on above: Performed By: #### 2 961749, 6184995, 0054098, 6545870, 47608628, 2902123, 0115469 #### [facility] [address] [place] [address] Bilirubin.direct [Mass/Vol] mg/dL Normal 0.1-0.4 [facility] Comment on above: Performed By: #### 2 317148, 7268853, 4303710, 9171484, 87816778, 5416277, 8748911 #### [facility] [address] [place] [address] Globulin (S) [Mass/Vol] 3.3 g/dL Normal 1.4-4.0 [facility] Comment on above: Performed By: #### 2 068920, 8937237, 2272367, 6928333, 40471027, 0371666, 8773616 #### [facility] [address] [place] [address] Protein [Mass/Vol] 7.5 g/dL Normal 6.0-7.8 [facility] Comment on above: Performed By: #### 2 194455, 8761194, 0758388, 5605966, 00090866, 5974745, 1941050 #### [facility] [address] [place] [address] Lipase Levelon 08-29-2022 Lipase [Catalytic activity/Vol] 29 U/L Normal 13-58 [facility] Comment on above: Performed By: #### 2 823586, 2934359, 2489871, 9538103, 19238406, 6933450, 3623941 #### [facility] [address] [place] [address] Prescriptions/Work Noteson 0 08-29-2022 Prescriptions/Work Notes [id number]#1.00CD:127 Normal [facility] UA With Cult Reflexon 2022 Bacteria LM Ql (Urine sed) 1+ /HPF Abnormal Trace [facility] Comment on above: Performed By: #### 1 8518355 ####[facility] [address] [place] [address] Bilirubin Ql (U) Negative Normal Negative [facility] Comment on above: Performed By: #### 1 8819144 ####[facility] [address] [place] [address] Clarity (U) CLEAR Normal Clear [facility] Comment on above: Performed By: #### 1 0300368 ####[facility] [address] [place] [address] Color (U) YELLOW Normal Yellow [facility] Comment on above: Performed By: #### 1 5067788 ####[facility] [address] [place] [address] Epithelial cells.squamous LM.HPF (Urine sed) [#/Area] 3-4 Normal 0-2 [facility] Comment on above: Performed By: #### 1 2817568 ####[facility] [address] [place] [address] Glucose Test strip (U) [Mass/Vol] Negative Normal Negative [facility] Comment on above: Performed By: #### 1 3196011 ####[address] [address] Hemoglobin Ql (U) Negative Normal Negative [facility] Comment on above: Performed By: #### 1 2542340 ####[address] [address] Ketones (U) [Mass/Vol] 3+ Abnormal Negative [facility] Comment on above: Performed By: #### 1 2152666 ####[address] [address] [place].plasma/Lithiu m.RBC (Bld) [Mass ratio] 0-3 Normal 0-3 [facility] Comment on above: Performed By: #### 1 6919454 ####[address] [address] Nitrite Ql (U) Negative Normal Negative [facility] Comment on above: Performed By: #### 1 6182534 ####[address] [address] pH (U) 7.0 [pH] Invalid Interpretation Code 5.0-9.0 [facility] Comment on above: Performed By: #### 1 4552657 ####[address] [address] Protein (U) [Mass/Vol] Negative Normal Negative [facility] Comment on above: Performed By: #### 1 3671292 ####[address] [address] Specific gravity (U) [Rel density] 1.015 Invalid Interpretation Code 1.005-1.030 [facility] Comment on above: Performed By: #### 1 2796855 ####[address] [address] Type of Urine collection method Clean Catch Normal [facility] Comment on above: Performed By: #### 1 8721638 ####[address] [address] Urobilinogen Qn (U) 0.2 {Andrea'U}/dL Normal 0.0-1.0 [facility] Comment on above: Performed By: #### 1 7094762 ####[facility] [address] [place] [address] WBC Auto Ql (U) TRACE Abnormal Negative [facility] Comment on above: Performed By: #### 1 1594594 ####[facility] [address] [place] [address] WBC LM.HPF (Urine sed) [#/Area] 0-5 Normal 0-5 [facility] Comment on above: Performed By: #### 1 5289823 ####[facility] [address] [place] [address] URINALYSISOrdered By: Davidson Watson on 08-29-2022 Bacteria LM Ql (Urine sed) 1+ /HPF Invalid Interpretation Code Trace/HPF [facility] UA Auto SS Bilirubin Ql (U) Negative (08/29/22 12:34 AM) Normal Negative [facility] UA Auto SS Clarity (U) Clear (08/29/22 12:34 AM) Normal Clear [facility] UA Auto SS Color (U) Yellow (08/29/22 12:34 AM) Normal Yellow [facility] UA Auto SS Epithelial cells.squamous LM.HPF (Urine sed) [#/Area] 3-4 /HPF Normal 0-2/HPF [facility] UA Aut o SS Glucose Test strip (U) [Mass/Vol] Negative (08/29/22 12:34 AM) Normal Negative [facility] UA Auto SS Hemoglobin Ql (U) Negative (08/29/22 12:34 AM) Normal Negative [facility] UA Auto SS Ketones (U) [Mass/Vol] 3+ *ABN* (08/29/22 12:34 AM) Invalid Interpretation Code Negative [facility] UA Auto SS [place].plasma/Lithiu m.RBC (Bld) [Mass ratio] 0-3 /HPF Normal 0-3/HPF [facility] UA Auto SS Nitrite Ql (U) Negative (08/29/22 12:34 AM) Normal Negative [facility] UA Auto SS pH (U) 7.0 *NA* (08/29/22 12:34 AM) Invalid Interpretation Code 5.0 - 9.0 [facility] UA Auto SS Protein (U) [Mass/Vol] Negative (08/29/22 12:34 AM) Normal Negative [facility] UA Auto SS Specific gravity (U) [Rel density] 1.015 *NA* (08/29/22 12:34 AM) Invalid Interpretation Code 1.005 - 1.030 [facility] UA Auto SS UA Spec Desc Clean Catch (08/29/22 12:34 AM) Normal [facility] UA Auto SS Urobilinogen Qn (U) 0.6882973 {Andrea'U}/dL Normal 0.0 - 1.0 EU/dL [facility] UA Auto SS WBC Auto Ql (U) Trace *ABN* (08/29/22 12:34 AM) Invalid Interpretation Code Negative [facility] UA Auto SS WBC LM.HPF (Urine sed) [#/Area] 0-5 /HPF Normal 0-5/HPF [facility] UA Auto SS US 1st Trimesteron 08-29-2022 US 1st Trimester Exam Date/Time: 08/28/2022 23:22 EST Reason for Exam: Abdominal pain;Other (please specify) Report IMPRESSION: EARLY SINGLE INTRAUTERINE GESTATION. COMPOSITE ULTRASOUND AGE: 7 WEEKS, 0 DAYS CLINICAL HISTORY: Abdominal pain. LMP: 07/12/2022 [place] (LMP): 04/18/2023 Gestational Age by LMP: 6 weeks, 5 days [place] from average ultrasound age: 0804/16/2023 Composite Ultrasound Age: 7 weeks, 0 days COMMENT: Transabdominal images were obtained. The uterus measurements and an estimated volume are: Uterus Length: 9.3 cm Uterus Width: 7.0 cm Uterus Height: 4.8 cm Uterus Volume: 160.9 cm3 The uterus is anteverted. A single gestational sac is identified within the uterine fundus with a diameter of: Mean Sac Diameter: 2.2 cm A yolk sac and small pole are identified within the gestational sac. The crown-rump length and the corresponding gestational age +/- 1 week are: [place] Rump Length: 0.7 cm Composite Ultrasound Age: 7 weeks, 0 days [place] from average ultrasound age: 0804/16/2023 There is no evidence of subchorionic hemorrhage. The heart rate is measured at 122 bpm. The right ovary measurements and estimated volume are: Right Ovary Length: 3.4 cm Right Ovary Width: 2.4 cm Right Ovary Height: 2.8 cm Right Ovary Volume: 11.5 cm3 The left ovary is not identified. Report No large cyst nor adnexal mass is noted. There is no free fluid in the cul-de-sac. FINAL REPORT Dictated: 08/29/2022 9:30 am Fransisco Crump M.D. Signed (Electronic Signature): 08/29/2022 9:30 am Signed by: Fransisco Crump M.D. Transcribed by: KG Technologist: LILLI Technical Comments LMP : estimates end of june, [place] estimated 04/18/2023 =6w 5d Unknown History 1 Transabdominal Ultrasound Performed FHR (bpm) 122 Size = Dates Uterus Position Anteverted Normal [facility] eGFRon 08-29-2022 GFR/1.73 sq M.predicted among blacks MDRD (S/P/Bld) [Vol rate/Area] mL/min/{1.73_m2} Normal >=59 [facility] Comment on above: Order Comment: Order added by Discern Expert. Result Comment: eGFR is race adjusted. AA=. Performed By: #### 2 749543, 4674385, 5384086, 1863364, 98365217, 0954572, 8954381 #### [facility] [address] [place] [address] GFR/1.73 sq M.predicted among non-blacks MDRD (S/P/Bld) [Vol rate/Area] mL/min/{1.73_m2} Normal >=59 [facility] Comment on above: Order Comment: Order added by Discern Expert. Result Comment: Electric Motor Tester emil kidney disease could be indicated at eGFR's of less than 60 mL/min/1.73m2. Kidney failure is indicated at less than 15 mL/min/1.73m2. Performed By: #### 2 610819, 9188148, 6046047, 6429555, 64192605, 7432842, 7351693 #### [facility] [address] [place] [address] BLOOD BANKOrdered By: Davidson Watson on 08-28-2022 ABO/Rh Interp Positive Invalid Interpretation Code [facility] Subsection CHEMISTRYOrdered By: SYSTEM SYSTEM on 08-28-2022 Albumin [Mass/Vol] 4.2 g/dL Normal 3.3 - 5.0 gm/dL [facility] Albumin/Globulin [Mass ratio] 1.3 {ratio} Normal 1.1 - 2.2 [facility] ALP [Catalytic activity/Vol] 69 [iU]/d Normal 21 - 98 Int._Unit/L [facility] ALT No additional P-5'-P [Catalytic activity/Vol] 57 [iU]/d High 6 - 46 Int._Unit/L [facility] Anion gap [Moles/Vol] 11 mmol/L Normal 6 - 16 mEq/L F [facility] AST [Catalytic activity/Vol] 41 [iU]/d Normal 5 - 43 Int._Unit/L [facility] Bilirubin [Mass/Vol] 0.4 mg/dL Normal 0.0 - 1 .1 mg/dL [facility] Bilirubin.direct [Mass/Vol] mg/dL Normal 0.1 - 0.4 mg/dL [facility] Bilirubin.indirect [Mass or moles/Vol] Unable to Calculate mg/dL Invalid Interpretation Code 0.1 - 0.9 mg/dL [facility] Calcium [Mass/Vol] 9.1 mg/dL Normal 8.9 - 11. 1 mg/dL [facility] Chloride [Moles/Vol] 105 mmol/L Normal 101 - 1 11 mmol/L [facility] CO2 [Moles/Vol] 23 mmol/L Normal 21 - 31 mmol/L [facility] Creatinine [Mass/Vol] 0.6 mg/dL Normal 0.5 - 1.3 mg/dL [facility] GFR/1.73 sq M.predicted among blacks MDRD (S/P/Bld) [Vol rate/Area] mL/min/1.73 m2 Normal >=59mL/min/1. 73 m2 [facility] Chem S GFR/1.73 sq M.predicted among non-blacks MDRD (S/P/Bld) [Vol rate/Area] mL/min/1.73 m2 Normal >=59mL/min/1. 73 m2 [facility] Chem S Globulin (S) [Mass/Vol] 3.3 g/dL Normal 1.4 - 4.0 gm/dL [facility] Glucose [Mass/Vol] 103 mg/dL Normal 55 - 199 mg/dL [facility] [place] [address] m[IU]/mL High 1 - 3 mIU/mL [facility] Lipase [Catalytic activity/Vol] 29 U/L Normal 13 - 58 unit/L [facility] Potassium [Moles/Vol] 3.7 mmol/L Normal 3.5 - 5.3 mmol/L [facility] Protein [Mass/Vol] 7.5 g/dL Normal 6.0 - 7.8 gm/dL [facility] Sodium [Moles/Vol] 135 mmol/L Normal 135 - 145 mmol/L [facility] Urea nitrogen [Mass/Vol] 6 mg/dL Normal 5 - 21 mg/dL [facility] Urea nitrogen/Creatinine [Mass ratio] 10 mg/mg Normal 10 - 20 [facility] Consent for Treatmenton Consent for Treatment [id number] #1.00CD:127 Normal [facility] HEMATOLOGYOrdered By: SYSTEM SYSTEM on 08-28-2022 Basophils/100 WBC (Bld) 0.6 % Normal 0.0 - 2.0 % [facility] HemeAutoSS Basophils/Leukocytes Auto (Bld) [Pure # fraction] 0.0 E9/L Normal 0.0 - 0.2 E9/L [facility] HemeAutoSS Eosinophils/100 WBC (Bld) 5.7 % Normal 0.0 - 8.0 % [facility] HemeAutoSS Eosinophils/Leukocyte s Auto (Bld) [Pure # fraction] 0.5 E9/L Normal 0.0 - 0.5 E9/L [facility] HemeAutoSS Lymphocytes/100 WBC (Bld) 20.5 % Normal 14.0 - 50.0 % [facility] HemeAutoSS Lymphocytes/Leukocyte s Auto (Bld) [Pure # fraction] 1.7 E9/L Normal 1.0 - 4.0 E9/L [facility] HemeAutoSS Monocytes/100 WBC (Bld) 8.4 % Normal 4.0 - 14.0 % [facility] HemeAutoSS Monocytes/Leukocytes Auto (Bld) [Pure # fraction] 0.7 E9/L Normal 0.2 - 1.0 E9/L [facility] HemeAutoSS Neutrophils/100 WBC (Bld) 64.8 % Normal 36.0 - 75.0 % [facility] HemeAutoSS Neutrophils/Leukocyte s Auto (Bld) [Pure # fraction] 5.3 E9/L Normal 2.0 - 7.5 E9/L FT HemeAutoSS HEMATOLOGYOrdered By: Meagan Hilton on 08-28-2022 Erythrocyte distribution width (RBC) [Ratio] 13.1 % Normal 10.9 - 14.2 % [facility] HemeAutoSS Hematocrit (Bld) [Volume fraction] 39.2 % Normal 34.0 - 46.0 % [facility] HemeAutoSS Hemoglobin (Bld) [Mass/Vol] 13.5 g/dL Normal 12.0 - 16.0 gm/dL [facility] HemeAutoSS MCH (RBC) [Entitic mass] 29.5 pg Normal 27.0 - 34.0 pg [facility] HemeAutoSS MCHC (RBC) [Mass/Vol] 34.3 g/dL Normal 31.4 - 36.0 gm/dL [facility] HemeAutoSS MCV (RBC) [Entitic vol] 85.8 fL Normal 80.0 - 100.0 fL [facility] HemeAutoSS Platelet mean volume (Bld) [Entitic vol] 8.3 fL Normal 6.4 - 10.8 fL [facility] HemeAutoSS Platelets (Bld) [#/Vol] 279.0 E9/L Normal 150.0 - 500.0 E9/L [facility] HemeAutoSS RBC (Bld) [#/Vol] 4.6 E12/L Normal 4.3 - 5.9 E12/L [facility] HemeAutoSS WBC corrected for nucl RBC Auto (Bld) [#/Vol] 8.1 E9/L Normal 4.0 - 11.0 E9/L [facility] HemeAutoSS Auto Diffon 08-26-2022 Basophils/100 WBC (Bld) 0.6 % Normal 0.0-2.0 [facility] Comment on above: Order Comment: Order Added by Discern Expert. Performed By: #### 1 1314093, 5360762, 6379882, 9216652, 8338045 ####[facility] [address] [place] [address] Basophils/Leukocytes Auto (Bld) [Pure # fraction] 0.1 E9/L Normal 0.0-0.2 [facility] Comment on above: Order Comment: Order Added by Discern Expert. Performed By: #### 1 9456778, 3237883, 4404225, 8696657, 9606195 ####[facility] [address] [place] [address] Eosinophils/100 WBC (Bld) 3.4 % Normal 0.0-8.0 [facility] Comment on above: Order Comment: Order Added by Discern Expert. Performed By: #### 1 0170273, 0020623, 5133500, 5104891, 0651972 ####[address] [place] [address] Eosinophils/Leukocyte s Auto (Bld) [Pure # fraction] 0.4 E9/L Normal 0.0-0.5 [facility] Comment on above: Order Comment: Order Added by Discern Expert. Performed By: #### 1 0506556, 9665827, 9153537, 6757496, 2770776 ####[address] [address] Lymphocytes/100 WBC (Bld) 12.4 % Low 14.0-50.0 [facility] Comment on above: Order Comment: Order Added by Discern Expert. Performed By: #### 1 1109119, 1965533, 4740523, 0318152, 0430731 ####[address] [address] Lymphocytes/Leukocyte s Auto (Bld) [Pure # fraction] 1.6 E9/L Normal 1.0-4.0 [facility] Comment on above: Order Comment: Order Added by Discern Expert. Performed By: #### 1 9505535, 3352847, 8988971, 1692757, 7229928 ####[address] [address] Monocytes/100 WBC (Bld) 4.2 % Normal 4.0-14.0 [facility] Comment on above: Order Comment: Order Added by Discern Expert. Performed By: #### 1 2424785, 6300254, 6073750, 3016113, 5397998 ####[address] [place] [address] Monocytes/Leukocytes Auto (Bld) [Pure # fraction] 0.5 E9/L Normal 0.2-1.0 [facility] Comment on above: Order Comment: Order Added by Discern Expert. Performed By: #### 1 0593184, 7675382, 0276751, 3496024, 9189756 ####[address] [place] [address] Neutrophils/100 WBC (Bld) 79.4 % High 36.0-75.0 [facility] Comment on above: Order Comment: Order Added by Discern Expert. Performed By: #### 1 7715966, 2356498, 7436476, 1232833, 1192631 ####[address] [address] Neutrophils/Leukocyte s Auto (Bld) [Pure # fraction] 10.3 E9/L High 2.0-7.5 [facility] Comment on above: Order Comment: Order Added by Discern Expert. Performed By: #### 1 9206798, 7774533, 9761898, 3806438, 5870658 ####[address] [address] CBC w/ Auto Diffon 3 Erythrocyte distribution width (RBC) [Ratio] 13.3 % Normal 10.9-14.2 [facility] Comment on above: Performed By: #### 1 2826553, 9383720, 4283600, 4875038, 3036744 ####[address] [place] [address] Hematocrit (Bld) [Volume fraction] 39.7 % Normal 34.0-46.0 [facility] Comment on above: Performed By: #### 1 5657220, 2090508, 2851681, 3932390, 4516826 ####[address] [place] [address] Hemoglobin (Bld) [Mass/Vol] 13.6 g/dL Normal 12.0-16.0 [facility] Comment on above: Performed By: #### 1 6995358, 7545203, 1546503, 8430025, 1346603 ####[facility] [address] [place] [address] MCH (RBC) [Entitic mass] 29.4 pg Normal 27.0-34.0 [facility] Comment on above: Performed By: #### 1 0747923, 4693306, 6350748, 3962307, 7610703 ####[facility] [address] [place] [address] MCHC (RBC) [Mass/Vol] 34.1 g/dL Normal 31.4-36.0 [facility] Comment on above: Performed By: #### 1 7940947, 4134398, 4847193, 8032751, 0703040 ####[place] [address] MCV (RBC) [Entitic vol] 86.1 fL Normal 80.0-100.0 [facility] Comment on above: Performed By: #### 1 9139974, 7934943, 1784979, 5005917, 2259977 ####[address] [address] Platelet mean volume (Bld) [Entitic vol] 7.9 fL Normal 6.4-10.8 [facility] Comment on above: Performed By: #### 1 1761707, 8004206, 9003306, 7115194, 1142095 ####[address] [place] [address] Platelets (Bld) [#/Vol] 340.0 E9/L Normal 150.0-500.0 [facility] Comment on above: Performed By: #### 1 1443872, 1823883, 5495135, 8082216, 5592664 ####[address] [place] [address] RBC (Bld) [#/Vol] 4.6 E12/L Normal 4.3-5.9 [facility] Comment on above: Performed By: #### 1 5500028, 8157713, 5651291, 5683332, 8409603 ####[facility] [address] [place] [address] WBC corrected for nucl RBC Auto (Bld) [#/Vol] 13.0 E9/L High 4.0-11.0 [facility] Comment on above: Performed By: #### 1 0231894, 8370192, 0312392, 1839542, 2932146 ####[facility] [address] [place] [address] CHEMISTRYOrdered By: SYSTEM SYSTEM on 08-26-2022 Albumin [Mass/Vol] 4.4 g/dL Normal 3.3 - 5.0 gm/dL [facility] Albumin/Globulin [Mass ratio] 1.3 {ratio} Normal 1.1 - 2.2 [facility] ALP [Catalytic activity/Vol] 66 [iU]/d Normal 21 - 98 Int._Unit/L [facility] ALT No additional P-5'-P [Catalytic activity/Vol] 20 [iU]/d Normal 6 - 46 Int._Unit/L [facility] Anion gap [Moles/Vol] 13 mmol/L Normal 6 - 16 mEq/L F [facility] AST [Catalytic activity/Vol] 20 [iU]/d Normal 5 - 43 Int._Unit/L [facility] Bilirubin [Mass/Vol] 0.6 mg/dL Normal 0.0 - 1 .1 mg/dL [facility] Calcium [Mass/Vol] 9.4 mg/dL Normal 8.9 - 11. 1 mg/dL [facility] Chloride [Moles/Vol] 103 mmol/L Normal 101 - 1 11 mmol/L [facility] CO2 [Moles/Vol] 21 mmol/L Normal 21 - 31 mmol/L [facility] Creatinine [Mass/Vol] 0.6 mg/dL Normal 0.5 - 1.3 mg/dL [facility] GFR/1.73 sq M.predicted among blacks MDRD (S/P/Bld) [Vol rate/Area] mL/min/1.73 m2 Normal >=59mL/min/1. 73 m2 [facility] [place] S GFR/1.73 sq M.predicted among non-blacks MDRD (S/P/Bld) [Vol rate/Area] mL/min/1.73 m2 Normal >=59mL/min/1. 73 m2 [facility] Chem S Globulin (S) [Mass/Vol] 3.4 g/dL Normal 1.4 - 4.0 gm/dL [facility] Glucose [Mass/Vol] 123 mg/dL Normal 55 - 199 mg/dL [facility] Lipase [Catalytic activity/Vol] 27 U/L Normal 13 - 58 unit/L [facility] Potassium [Moles/Vol] 3.7 mmol/L Normal 3.5 - 5.3 mmol/L [facility] Protein [Mass/Vol] 7.8 g/dL Normal 6.0 - 7.8 gm/dL [facility] Sodium [Moles/Vol] 133 mmol/L Low 135 - 145 mmol/L [facility] Urea nitrogen [Mass/Vol] 9 mg/dL Normal 5 - 21 mg/dL [facility] Urea nitrogen/Creatinine [Mass ratio] 15 mg/mg Normal 10 - 20 [facility] Remisol CMPon 08-26-2022 Albumin [Mass/Vol] 4.4 g/dL Normal 3.3-5.0 [facility] Comment on above: Performed By: #### 1 4094838, 6384444, 8971711, 1529425, 1079079 ####[facility] [address] [place] [address] Albumin/Globulin (S) [Mass conc ratio] 1.3 Normal 1.1-2.2 [facility] Comment on above: Performed By: #### 1 7226028, 0182282, 0614201, 4785718, 0532581 ####[facility] [address] [place] [address] ALP [Catalytic activity/Vol] 66 Int._Unit/L Normal 21-98 [facility] Comment on above: Performed By: #### 1 0950847, 0901347, 6547189, 3006142, 2699564 ####[facility] [address] [place] [address] ALT No additional P-5'-P [Catalytic activity/Vol] 20 Int._Unit/L Normal 6-46 [facility] Comment on above: Performed By: #### 1 7939435, 4690227, 0814632, 6033275, 3582477 ####[facility] [address] [place] [address] AST [Catalytic activity/Vol] 20 Int._Unit/L Normal 5-43 [facility] Comment on above: Performed By: #### 1 2463475, 2450314, 1068055, 7733050, 7750554 ####[facility] [address] [place] [address] Bilirubin [Mass/Vol] 0.6 mg/dL Normal 0.0-1.1 [facility] Comment on above: Performed By: #### 1 9736419, 0474820, 4881394, 5858270, 6845549 ####[facility] [address] [place] [address] Creatinine [Mass/Vol] 0.6 mg/dL Normal 0.5-1.3 [facility] Comment on above: Performed By: #### 1 7579710, 0903215, 4698603, 1845805, 1286520 ####[facility] [address] [place] [address] Globulin (S) [Mass/Vol] 3.4 g/dL Normal 1.4-4.0 [facility] Comment on above: Performed By: #### 1 5791762, 1911948, 2173190, 5326163, 1008977 ####[facility] [address] [place] [address] Protein [Mass/Vol] 7.8 g/dL Normal 6.0-7.8 [facility] Comment on above: Performed By: #### 1 2361861, 9064801, 0267689, 5072978, 0382859 ####[facility] [address] [place] [address] Urea nitrogen [Mass/Vol] 9 mg/dL Normal 5-21 [facility] Comment on above: Performed By: #### 1 1050531, 2864503, 8949503, 7736397, 9262359 ####[facility] [address] [place] [address] Urea nitrogen/Creatinine [Mass ratio] 15 No Units Normal 10-20 [facility] Comment on above: Performed By: #### 1 9511110, 0728261, 0149147, 9360013, 1671570 ####[facility] [address] [place] [address] Anion gap [Moles/Vol] 13 mmol/L Normal 6-16 [facility] Comment on above: Performed By: #### 1 1961306, 7586111, 5498773, 1091589, 7416831 ####[facility] [address] [place] [address] Calcium [Mass/Vol] 9.4 mg/dL Normal 8.9-11.1 [facility] Comment on above: Performed By: #### 1 1644054, 1130010, 9842552, 1759666, 7409838 ####[facility] [address] [place] [address] Chloride [Moles/Vol] 103 mmol/L Normal 101-111 [facility] Comment on above: Performed By: #### 1 7987805, 3996877, 3924009, 7450712, 7159389 ####[facility] [address] [place] [address] CO2 [Moles/Vol] 21 mmol/L Normal 21-31 [facility] Comment on above: Performed By: #### 1 0494209, 0164350, 8033298, 7719295, 1504566 ####[facility] [address] [place] [address] Glucose [Mass/Vol] 123 mg/dL Normal 55-199 [facility] Comment on above: Result Comment: If t his glucose result represents a fasting glucose, interpretation should refer to the following reference range: 55-99 mg/dL Performed By: #### 1 6224520, 7321739, 0755076, 0251220, 0142643 ####[facility] [address] [place] [address] Potassium [Moles/Vol] 3.7 mmol/L Normal 3.5-5.3 [facility] Comment on above: Performed By: #### 1 [id number], [id number], 1877630, 1147854, [id number] ####[facility] [address] [place] [address] Sodium [Moles/Vol] 133 mmol/L Low 135-145 [facility] Comment on above: Performed By: #### 1 [id number], 9582030, [id number], 2954031, [id number] ####[facility] [address] [place] [address] Consent for Treatmenton Consent for Treatment [id number] #1.00CD:127 Normal [facility] Discharge Instructionson Discharge Instructions [id number]#1.00CD:127 Normal [facility] [facility] Summaryon 2022 ED Clinical Summary [address] [address] ED Clinical Summary Person Information Name: ROQUE PIERSON/[facility] Age: 22 Years : 2000 Sex: Female Language: Serbian PCP: Delfin Urbano MD Marital Status: Single Visit Id: Visit Reason: Nausea; Vomiting - ; Abdominal pain; VOMITING, NAUSEA Speciality: Acuity: 3 Enc Type: Emergency Med Service: Emergency Arrival: 08/26/2022 10:59:05 Discharge: 08/26/2022 12:55:05 LOS: 000 01:56 Checkin: 08/26/2022 10:59:05 Checkout: 08/26/2022 12:55:05 Dispo Type: Home (Routine DC) EVENTS: Event Name Event Status Request Date/Time Start Date/Time Complete Date/Time Arrive Complete 08/26/2022 10:59:05 08/26/2022 10:59:05 08/26/2022 10:59:05 Document Home Meds Request 08/26/2022 10:59:05 Triage Complete 08/26/2022 10:59:05 08/26/2022 11:04:55 08/26/2022 11:04:55 Bed Assign Complete 08/26/2022 11:00:55 08/26/2022 11:00:55 08/26/2022 11:00:55 Dr Exam Complete 08/26/2022 11:00:55 08/26/2022 11:01:21 08/26/2022 11:01:21 RN Exam Complete 08/26/2022 11:00:55 08/26/2022 11:14:29 08/26/2022 11:14:29 Registration Complete 08/26/2022 11:01:21 08/26/2022 12:10:31 08/26/2022 12:10:31 Pending Labs Complete 08/26/2022 11:07:11 08/26/2022 12:20:45 Lab Complete 08/26/2022 11:07:11 08/26/2022 12:20:45 Urine Collect Complete 08/26/2022 11:07:11 08/26/2022 12:20:45 Meds Admin Request 08/26/2022 11:07:11 Pending Labs Complete 08/26/2022 11:14:35 08/26/2022 11:14:35 08/26/2022 11:36:02 Lab Complete 08/26/2022 11:14:35 08/26/2022 11:14:35 08/26/2022 11:36:02 Pending Labs Complete 08/26/2022 11:24:17 08/26/2022 11:24:17 08/26/2022 11:24:25 Lab Complete 08/26/2022 11:24:17 08/26/2022 11:24:17 08/26/2022 11:24:25 Meds Admin Complete 08/26/2022 11:44:39 08/26/2022 11:53:58 Reg Complete Request 08/26/2022 12:10:31 Reg Bed Request Complete 08/26/2022 12:10:31 08/26/2022 12:10:31 08/26/2022 12:10:31 Pending Labs Complete 08/26/2022 12:45:55 08/26/2022 12:45:55 08/26/2022 12:45:56 Meds Admin Complete 08/26/2022 12:47:31 08/26/2022 12:51:26 Discharge Complete 08/26/2022 12:48:00 08/26/2022 12:55:17 08/26/2022 12:55:17 Pending Labs Complete 08/26/2022 12:48:52 08/26/2022 12:48:52 08/26/2022 12:48:52 Transfer Complete 08/26/2022 12:55:17 08/26/2022 12:55:17 08/26/2022 12:55:17 ADDRESS: [address] [place] [phone] PHYS DOC NOTES: MEDICAL INFORMATION: Prescriptions Given: Medications to Continue Taking That Have Changed Printed Prescriptions START: ondansetron (Zofran 4 mg Tab) 1 Tablets By Mouth every 6 hours as needed Nausea. Take one tab by mouth every six hours as needed for nausea. Refills: 0. Other Medications START: ondansetron (Zofran 4 mg Tab) 1 Tablets By Mouth every 8 hours as needed Nausea/Vomiting. Refills: 0. Medications to Continue with No Changes Other Medications cetirizine (Zyrtec) 5 Milligram By Mouth every day. famotidine (Pepcid 20 mg Tab) 1 Tablets By Mouth every day. Refills: 0. fluticasone nasal (Childrens Flonase 50 mcg/inh nasal spray) 1 Sprays Nasal Inhalation every day. PATIENT EDUCATION INFORMATION: Instructions: Follow up: With: Address: When: Julius CROCKETT [facility], [address] [place] [address] [place] [address] Business (1) In 3 days 08/29/2022 With: Address: When: Delfin Urbano [address] [facility], [address] [place] [phone] Business (1) In 3 days DIAGNOSIS: Hyperemesis gravidarum Normal [facility] ED Note-Physicianon 08-26-19 ED Note-Physician Basic Information Time Seen: Kei Moore DO 08/26/2022 11:01 Chief Complaint pt reports nausea for 2-3 weeks, Seen in [place] ED for this and given fluids/meds in ED. Mild abd pain. Pt reports 6 wks . History of Present Illness 22 female presents emergency department with intractable nausea and vomiting. Patient states that she is about 6 weeks she is G1, P0 and has had prior ultrasound done in [place]. Patient states that just recently she was seen in the [place] emergency department was given fluids and medications and did have some blood work done and then she was discharged home. Patient states despite this she continues to have the symptoms which have been ongoing for the past couple of weeks. She denies any abdominal pain no urinary symptoms no chest pain or difficulty breathing no cough or fevers no other obvious aggravating or alleviating factors. No other aggravating or relieving factors no other associated symptoms no other prior treatments or complaints. Family: Reviewed and noncontributory Social: lives at home Review of systems negative unless otherwise specified in the HPI. Physical Exam Vitals & Measurements T: 37.0 ?C(Oral) HR: 66(Peripheral) RR: 16 BP: 115/70 SpO2: 96% HT: 175.26 cm WT: 79 kg BMI: 25.72 General: The patient is laying comfortably on the cot but does appear to be nauseous holding a vomit bag Skin: Warm, dry, no pallor noted. Head: Normocephalic, atraumatic Neck: No JVD Eye: PERRLA, EOMI ENT: Moist mucus membranes Cardiovascular: Regular rate normal peripheral perfusion Respiratory: No respiratory distress no accessory muscle use no obvious audible wheezing Chest Wall: no deformity Musculoskeletal: normal ROM, no deformity, no swelling GI: Soft no obvious distention. No rebound or rigidity. No guarding. No tenderness. Neurological: A&O moves all extremities equal strength and symmetry Psychiatric: Cooperative and appropriate Medical Decision Making MEDICAL DECISION MAKING Number and Complexity of Problems Differential Diagnosis: [] MDM Data External documents reviewed: [] My EKG interpretation: [] My CT interpretation: [] My X-ray interpretation: [] My Ultrasound interpretation: [] Decision rules/scores evaluated: [] Discussed with: [] Treatment and Disposition ED Course: Work-up in the ER has been reviewed and noted. Patient is treated here with IV fluids Phenergan Zofran does feel better is able to tolerate p.o. challenge discharged home educated to follow-up with her [employer] physician. She is discharged with prescription for Zofran Shared decision making: [] Code status: [] Assessment/Plan Hyperemesis gravidarum (O21.0: Mild hyperemesis gravidarum) Orders: ondansetron, 4 mg = 2 mL, Injection, IV Push, Once, Stop date 08/26/22 12:47:00 EST, STAT, Start date 08/26/22 12:47:00 EST, 08/26/22 12:47:00 EST ondansetron, 4 mg = 2 mL, Injection, IV Push, Once, Stop date 08/26/22 11:06:00 EST, STAT, Start date 08/26/22 11:06:00 EST, 08/26/22 11:06:00 EST ondansetron, 4 mg = 1 tab(s), Oral, q6hr, PRN Nausea, Take one tab by mouth every six hours as needed for nausea, # 10 tab(s), Refills(s) 0 promethazine, 12.5 mg = 0.5 mL, Injection, IV Push, Once, Stop date 08/26/22 11:44:00 EST, STAT, Start date 08/26/22 11:44:00 EST, 08/26/22 11:44:00 EST Sodium Chloride 0.9% intravenous solution 1,000 mL, 1,000 mL, IV, 1,000 mL/hr, STAT, Start date 08/26/22 11:06:00 EST, 1 hour(s), Total volume (mL): 1,000, 79 kg, 1.96, m2 Automated Diff CBC w/ Auto Diff Comprehensive Metabolic Panel eGFR Extra SST Tube Lipase Level UA With Cult Reflex Medications Administered Given Sodium Chloride 0.9% IV Wanda 1000 mL 1,000 mL, 1000 mL, IV Phenergan 25 mg/mL Injection, 12.5 mg, IV Push Zofran 4 mg/2 mL Injection, 4 mg, IV Push Disposition Plan Discharge Prescription List Prescriptions Zofran 4 mg Tab, 4 mg= 1 tab(s), Oral, q6hr, PRN Follow-up With When Contact Information Julius CROCKETT In 3 days 08/29/2022 EST [facility] [address] [facility] [place] [address]- Business (1) Additional Instructions: Delfin Urbano In 3 days [address] [facility] [place] [address] [place] [address]- Business (1) Additional Instructions: Problem List/Past Medical History Ongoing No qualifying data Historical None Procedure/Surgical History None. Medications Inpatient Sodium Chloride 0.9% IV Wanda 1000 mL 1,000 mL, 1000 mL, IV Zofran 4 mg/2 mL Injection, 4 mg= 2 mL, IV Push, Once Home Childrens Flonase 50 mcg/inh nasal spray, 1 spray(s), Nasal, Daily Pepcid 20 mg Tab, 20 mg= 1 tab(s), Oral, Daily Zofran 4 mg Tab, 4 mg= 1 tab(s), Oral, q8hr, PRN Zyrtec, 5 mg, Oral, Daily Allergies No Known Allergies Social History Alcohol - Denies Alcohol Use, 12/16/2015 Substance Abuse - Denies Substance Abuse, 12/16/2015 Tobacco - Denies Tobacco Use, 12/16/2015 Household t (more content not included)... Normal [facility] Comment on above: Result Comment: Elec tronically Signed By: Kei Moore DO\.basil\Date and Time Signed: 08/26/22 12:48 EST ED Patient Education Noteon 08-26-2022 ED Patient Education Note Normal [facility] ED Patient Summaryon 023 ED Patient Summary [address] [address] Patient Discharge Instructions Person Information Name: ROQUE PIERSON Age: 22 Years Arrival Date: 08/26/2022 10:59:05 Discharge Diagnosis: Hyperemesis gravidarum Primary Care Physician: Delfin Urbano MD Provider Information Primary Provider: Kei Moore DO Advanced Pressroom Foreman:None The exam and treatment you received in the Emergency Department were for an urgent problem and are not intended as complete care. It is important that you follow up with a doctor, nurse practitioner, or physician?s assistant signal maintainer for ongoing care. If your symptoms become worse or you do not improve as expected and you are unable to reach your usual health care provider, you should return to the Emergency Department. We are available 24 hours a day. ALISON PIERSONA Valdez has been given the following list of patient education materials, prescriptions and follow-up instructions: Follow-up Instructions: With: Address: When: Julius JUSTYNA [facility], [address] [place] [address] , [place] [address] Business (1) In 3 days 08/29/2022 With: Address: When: Delfin Urbano [facility] [facility], [address] [place] [phone] Business (1) In 3 days In the event that this physician does not participate in your insurance network, please consult with your insurance company to find a nearby participating provider. Patient Education Materials: A MESSAGE TO ALL PATIENTS REGARDING OPIOIDS PRESCRIPTION OPIOIDS: WHAT YOU NEED TO KNOW Prescription opioids can be used to help relieve gzmfwubf-ks-dvlqdg pain and are often prescribed following a surgery or injury, or for certain health conditions. These medications can be an important part of the treatment but also come with serious risks. It is important to work with your healthcare provider to make sure you are getting the safest, most effective care. WHAT ARE THE RISKS AND SIDE EFFECTS OF OPIOID USE? Prescription opioids carry serious risks of addiction and overdose, especially with prolonged use. An opioid overdose, often marked by slowed breathing, can cause sudden . The use of prescription opioids can have a number of side effects as well, even when taken as directed: ? Tolerance?meaning you might need to take more of the medication for the same pain relief ? Physical dependence?meaning you have symptoms of withdrawal when a medication is stopped ? Increased sensitivity to pain ? Constipation ? Nausea, vomiting, and dry mouth ? Sleepiness and dizziness ? Confusion ? Depression ? Low levels of testosterone that can result in lower sex drive, energy, and strength ? Itching and sweating RISKS ARE GREATER WITH: ? History of drug misuse, substance use disorder, or overdose ? Mental health conditions (such as depression or anxiety) ? Sleep apnea ? Older age (65 years and older) ? Avoid alcohol while taking prescription opioids. Also, unless specifically advised by your health care provider, medications to avoid include: ? Benzodiazepines (such as Xanax or Valium) ? Muscle relaxants (such as Soma or Flexeril) ? Hypnotics (such as Ambien or Lunesta) ? Other prescription opioids KNOW YOUR OPTIONS Talk to your health care provider about ways to manage your pain that don?t involve prescription opioids. Some of these options may actually work better and have fewer risks and side effects. Options may include: ? Pain relievers such as acetaminophen, ibuprofen, and naproxen ? Some medication that are also used for depression or seizures ? Physical therapy and exercise ? Cognitive behavioral therapy, a psychological, goal-directed approach, in which patients learn how to modify physical, behavioral, and emotional triggers of pain and stress. IF YOU ARE PRESCRIBED OPIOIDS FOR PAIN: ? Never take opioids in greater amounts or more often than prescribed. ? Follow up with your primary health care provider. o Work together to create a plan on how to manage your pain. o Talk about ways to help manage your pain that don?t involve prescription opioids. o Talk about any and all concerns and side effects. ? Help prevent misuse and abuse o Never sell or share prescription opioids. o Never use another person?s prescription opioids. ? Store prescription opioids in a secure place and out of reach of others (this may include visitors, children, friends, and family). ? Safely dispose of unused prescription opioids: Find your community drug take-back program or your pharmacy mail-back program, or flush them down the toilet, following guidance from the Food and Drug Administration (www.fda.gov/Drugs/R esourcesForYou). ? Visit www.cdc.gov/drugover dose to learn about the risks of opioids abuse and overdose. ? If you believe you may be struggling with addiction, tell your he (more content not included)... Normal [facility] HEMATOLOGYOrdered By: SYSTEM SYSTEM on 08-26-2022 Basophils/100 WBC (Bld) 0.6 % Normal 0.0 - 2.0 % [facility] HemeAutoSS Basophils/Leukocytes Auto (Bld) [Pure # fraction] 0.1 E9/L Normal 0.0 - 0.2 E9/L [facility] HemeAutoSS Eosinophils/100 WBC (Bld) 3.4 % Normal 0.0 - 8.0 % [facility] HemeAutoSS Eosinophils/Leukocyte s Auto (Bld) [Pure # fraction] 0.4 E9/L Normal 0.0 - 0.5 E9/L [facility] HemeAutoSS Lymphocytes/100 WBC (Bld) 12.4 % Low 14.0 - 50.0 % [facility] HemeAutoSS Lymphocytes/Leukocyte s Auto (Bld) [Pure # fraction] 1.6 E9/L Normal 1.0 - 4.0 E9/L [facility] HemeAutoSS Monocytes/100 WBC (Bld) 4.2 % Normal 4.0 - 14.0 % [facility] HemeAutoSS Monocytes/Leukocytes Auto (Bld) [Pure # fraction] 0.5 E9/L Normal 0.2 - 1.0 E9/L [facility] HemeAutoSS Neutrophils/100 WBC (Bld) 79.4 % High 36.0 - 75.0 % [facility] HemeAutoSS Neutrophils/Leukocyte s Auto (Bld) [Pure # fraction] 10.3 E9/L High 2.0 - 7.5 E9/L [facility] HemeAutoSS HEMATOLOGYOrdered By: Meagan Hilton on 08-26-2022 Erythrocyte distribution width (RBC) [Ratio] 13.3 % Normal 10.9 - 14.2 % [facility] HemeAutoSS Hematocrit (Bld) [Volume fraction] 39.7 % Normal 34.0 - 46.0 % [facility] HemeAutoSS Hemoglobin (Bld) [Mass/Vol] 13.6 g/dL Normal 12.0 - 16.0 gm/dL [facility] HemeAutoSS MCH (RBC) [Entitic mass] 29.4 pg Normal 27.0 - 34.0 pg [facility] HemeAutoSS MCHC (RBC) [Mass/Vol] 34.1 g/dL Normal 31.4 - 36.0 gm/dL [facility] HemeAutoSS MCV (RBC) [Entitic vol] 86.1 fL Normal 80.0 - 100.0 fL [facility] HemeAutoSS Platelet mean volume (Bld) [Entitic vol] 7.9 fL Normal 6.4 - 10.8 fL [facility] HemeAutoSS Platelets (Bld) [#/Vol] 340.0 E9/L Normal 150.0 - 500.0 E9/L [facility] RBC (Bld) [#/Vol] 4.6 E12/L Normal 4.3 - 5.9 E12/L [facility] WBC corrected for nucl RBC Auto (Bld) [#/Vol] 13.0 E9/L High 4.0 - 11.0 E9/L [facility] Lipase Levelon 08-26-2022 Lipase [Catalytic activity/Vol] 27 U/L Normal 13-58 [facility] Comment on above: Performed By: #### 1 [id number] ####[facility] [id number] [place] [address] UA With Cult Reflexon 2022 Bacteria LM Ql (Urine sed) TRACE Normal Trace [facility] Comment on above: Performed By: #### 1 [id number] #### [facility] [address] [place] [address] Bilirubin Ql (U) Negative Normal Negative [facility] Comment on above: Performed By: #### 1 [id number] #### [facility] [address] [place] [address] Clarity (U) CLEAR Normal Clear [facility] Comment on above: Performed By: #### 1 [id number] #### [facility] [address] [place] [address] Color (U) YELLOW Normal Yellow [facility] Comment on above: Performed By: #### 1 [id number] #### [facility] [address] [place] [address] Epithelial cells.squamous LM.HPF (Urine sed) [#/Area] 5-8 Normal 0-2 [facility] Comment on above: Performed By: #### 1 [id number] #### [facility] [address] [place] [address] Glucose Test strip (U) [Mass/Vol] Negative Normal Negative [facility] Comment on above: Performed By: #### 1 [id number] #### [facility] [address] [place] [address] Hemoglobin Ql (U) Negative Normal Negative [facility] Comment on above: Performed By: #### 1 [id number] #### [facility] [address] [place] [address] Ketones (U) [Mass/Vol] 2+ Abnormal Negative [facility] Comment on above: Performed By: #### 1 [id number] #### [facility] [address] [place] [address] [place].plasma/Lithiu m.RBC (Bld) [Mass ratio] 0-3 Normal 0-3 [facility] Comment on above: Performed By: #### 1 [id number] #### [facility] [address] [place] [address] Mucus Ql (Urine sed) 2+ Normal [facility] Comment on above: Performed By: #### 1 [id number] #### [facility] [address] [place] [address] Nitrite Ql (U) Negative Normal Negative [facility] Comment on above: Performed By: #### 1 [id number] #### [facility] [address] [place] [address] pH (U) 8.5 [pH] Invalid Interpretation Code 5.0-9.0 [facility] Comment on above: Performed By: #### 1 [id number] #### [facility] [address] [place] [address] Protein (U) [Mass/Vol] TRACE Abnormal Negative [facility] Comment on above: Performed By: #### 1 [id number] #### [facility] [address] [place] [address] Specific gravity (U) [Rel density] 1.015 Invalid Interpretation Code 1.005-1.030 [facility] Comment on above: Performed By: #### 1 [id number] #### [facility] [address] [place] [address] Type of Urine collection method Clean Catch Normal [facility] Comment on above: Performed By: #### 1 [id number] #### [facility] [address] [place] [address] Urobilinogen Qn (U) 0.2 {Andrea'U}/dL Normal 0.0-1.0 [facility] Comment on above: Performed By: #### 1 [id number] #### [facility] [address] [place] [address] WBC Auto Ql (U) Negative Normal Negative [facility] Comment on above: Performed By: #### 1 [id number] #### [facility] [address] [place] [address] WBC LM.HPF (Urine sed) [#/Area] 0-5 Normal 0-5 [facility] Comment on above: Performed By: #### 1 [id number] #### [facility] [address] [place] [address] URINALYSISOrdered By: Renato Norman on 08-26-2022 Bacteria LM Ql (Urine sed) Trace /HPF Normal Trace/HPF [facility] UA Auto SS Bilirubin Ql (U) Negative (08/26/22 12:01 PM) Normal Negative [facility] UA Auto SS Clarity (U) Clear (08/26/22 12:01 PM) Normal Clear [facility] UA Auto SS Color (U) Yellow (08/26/22 12:01 PM) Normal Yellow [facility] UA Auto SS Epithelial cells.squamous LM.HPF (Urine sed) [#/Area] 5-8 /HPF Normal 0-2/HPF [facility] UA Aut o SS Glucose Test strip (U) [Mass/Vol] Negative (08/26/22 12:01 PM) Normal Negative [facility] UA Auto SS Hemoglobin Ql (U) Negative (08/26/22 12:01 PM) Normal Negative [facility] UA Auto SS Ketones (U) [Mass/Vol] 2+ *ABN* (08/26/22 12:01 PM) Invalid Interpretation Code Negative [facility] UA Auto SS [place].plasma/Lithiu m.RBC (Bld) [Mass ratio] 0-3 /HPF Normal 0-3/HPF [facility] UA Auto SS Mucus Ql (Urine sed) 2+ (08/26/22 12:01 PM) Normal [facility] UA Auto SS Nitrite Ql (U) Negative (08/26/22 12:01 PM) Normal Negative [facility] UA Auto SS pH (U) 8.5 *NA* (08/26/22 12:01 PM) Invalid Interpretation Code 5.0 - 9.0 [facility] UA Auto SS Protein (U) [Mass/Vol] Trace *ABN* (08/26/22 12:01 PM) Invalid Interpretation Code Negative [facility] UA Auto SS Specific gravity (U) [Rel density] 1.015 *NA* (08/26/22 12:01 PM) Invalid Interpretation Code 1.005 - 1.030 [facility] UA Auto SS UA Spec Desc Clean Catch (08/26/22 12:01 PM) Normal [facility] UA Auto SS Urobilinogen Qn (U) 0.5956021 {Andrea'U}/dL Normal 0.0 - 1.0 EU/dL [facility] UA Auto SS WBC Auto Ql (U) Negative (08/26/22 12:01 PM) Normal Negative [facility] UA Auto SS WBC LM.HPF (Urine sed) [#/Area] 0-5 /HPF Normal 0-5/HPF [facility] UA Auto SS eGFRon 08-26-2022 GFR/1.73 sq M.predicted among blacks MDRD (S/P/Bld) [Vol rate/Area] mL/min/{1.73_m2} Normal >=59 [facility] Comment on above: Order Comment: Order added by Discern Expert. Result Comment: eGFR is race adjusted. AA=. Performed By: #### 1 [id number], [id number], [id number] ####[facility] [address] [place] [address] GFR/1.73 sq M.predicted among non-blacks MDRD (S/P/Bld) [Vol rate/Area] mL/min/{1.73_m2} Normal >=59 [facility] Comment on above: Order Comment: Order added by Discern Expert. Result Comment: Electric Motor Tester emil kidney disease could be indicated at eGFR's of less than 60 mL/min/1.73m2. Kidney failure is indicated at less than 15 mL/min/1.73m2. Performed By: #### 1 [id number], [id number] ####[facility] [address] [place] [address] CBC with Auto Differentialon 08-24-2022 Absolute Eos # 0.60 High [facility] Absolute Lymph # 2.30 [facility] Absolute [place] # 1.00 [facility] Basophils (Bld) [#/Vol] 0.10 10*3/uL [facility] Basophils/100 WBC (Bld) 0 % 0 - 2 % [facility] Differential Type YES [facility] Eosinophils/100 WBC (Bld) 4 % 0 - 5 % [facility] Hematocrit (Bld) [Volume fraction] 38.3 % 36 - 46 % [facility] Hemoglobin (Bld) [Mass/Vol] 12.7 g/dL 12.0 - 16.0 g/dL [facility] Interpretation and review of laboratory results Abnormal [facility] Lymphocytes/100 WBC (Bld) 16 % 15 - 40 % [facility] MCH (RBC) [Entitic mass] 29.3 pg 26 - 34 pg [facility] MCHC (RBC) [Mass/Vol] 33.1 g/dL 31 - 37 g/dL [facility] MCV (RBC) [Entitic vol] 88.6 fL 80 - 100 fL [facility] Monocytes/100 WBC (Bld) 7 % 4 - 8 % [facility] Platelet distribution width (Bld) [Ratio] 13.1 % 12.1 - 15.2 % [facility] Platelets (Bld) [#/Vol] 324 10*3/uL [facility] RBC (Bld) [#/Vol] 4.32 10*6/uL 4.0 - 5.2 m/uL [facility] Segmented neutrophils/100 WBC (Bld) 73 % 47 - 75 % [facility] Segs Absolute 10.20 High [facility] WBC (Bld) [#/Vol] 14.1 10*3/uL High [facility] CBC with Diffon 08-24-2022 Abs. Basophil 0.10 k/uL Normal 0.0-0.2 [facility] Comment on above: Performed By: #### C DP, CP #### [facility] [address] [place], [place] [id number] Construction Laborer: Alfred Chirinos MD Abs.Neutrophil (Seg) 10.20 k/uL High 2.5-7.0 [facility] Comment on above: Performed By: #### C DP, CP #### [facility] [address] [place], [place] [id number] Construction Laborer: Alfred Chirinos MD Auto Diff Performed YES Normal [facility] Comment on above: Performed By: #### C DP, CP #### [facility] [address] [place] [id number] Construction Laborer: Alfred Chirinos MD Basophils/100 WBC (Bld) 0 % Normal 0-2 [facility] Comment on above: Performed By: #### C DP, CP #### [facility] [address] [place], [place] [id number] Construction Laborer: Alfred Chirinos MD Eosinophils (Bld) [#/Vol] 0.60 10*3/uL High 0.0-0.4 [facility] Comment on above: Performed By: #### C DP, CP #### [facility] [address], [place] [id number] Construction Laborer: Alfred Chirinos MD Eosinophils/100 WBC (Bld) 4 % Normal 0-5 [facility] Comment on above: Performed By: #### C DP, CP #### [facility] [address], [place] [phone] Construction Laborer: Alfred Chirinos MD Erythrocyte distribution width (RBC) [Ratio] 13.1 % Normal 12.1-15.2 [facility] Comment on above: Performed By: #### C DP, CP #### [facility] [address] [place] [address] Construction Laborer: Alfred Chirinos MD Hematocrit (Bld) [Volume fraction] 38.3 % Normal 36-46 [facility] Comment on above: Performed By: #### C DP, CP #### [facility] [address] [place] [address] Construction Laborer: Alfred Chirinos MD Hemoglobin (Bld) [Mass/Vol] 12.7 g/dL Normal 12.0-16.0 [facility] Comment on above: Performed By: #### C DP, CP #### [facility] [address] [place] [address] Construction Laborer: Alfred Chirinos MD Lymphocytes (Bld) [#/Vol] 2.30 10*3/uL Normal 1.0-4.8 [facility] Comment on above: Performed By: #### C DP, CP #### [facility] [address] [place] [address] Construction Laborer: Alfred Chirinos MD Lymphocytes/100 WBC (Bld) 16 % Normal 15-40 [facility] Comment on above: Performed By: #### C DP, CP #### [facility] [address] [place] [address] Construction Laborer: Alfred Chirinos MD MCH (RBC) [Entitic mass] 29.3 pg Normal 26-34 [facility] Comment on above: Performed By: #### C DP, CP #### [facility] [address] [place] [address] Construction Laborer: Alfred Chirinos MD MCHC (RBC) [Mass/Vol] 33.1 g/dL Normal 31-37 [facility] Comment on above: Performed By: #### C DP, CP #### [facility] [address], [place] [phone] (489) Construction Laborer: Alfred Chirinos MD MCV (RBC) [Entitic vol] 88.6 fL Normal 80-100 [facility] Comment on above: Performed By: #### C DP, CP #### [facility] [address], [place] [phone] (197) Construction Laborer: Alfred Chirinos MD Monocytes (Bld) [#/Vol] 1.00 10*3/uL Normal 0.0-1.0 [facility] Comment on above: Performed By: #### C DP, CP #### [facility] [address] [place] [address] Construction Laborer: Alfred Chirinos MD Monocytes/100 WBC (Bld) 7 % Normal 4-8 [facility] Comment on above: Performed By: #### C DP, CP #### [facility] [address], [place] [phone] (923) Construction Laborer: Alfred Chirinos MD Neutrophil (Seg) 73 % Normal 47-75 [facility] Comment on above: Performed By: #### C DP, CP #### [facility] [address] [place] [address] Construction Laborer: Alfred Chirinos MD Platelets (Bld) [#/Vol] 324 10*3/uL Normal 140-450 [facility] Comment on above: Performed By: #### C DP, CP #### [facility] [address] [place] [address] Construction Laborer: Alfred Chirinos MD RBC (Bld) [#/Vol] 4.32 10*6/uL Normal 4.0-5.2 [facility] Comment on above: Performed By: #### C DP, CP #### [facility] [address], [place] [phone] (101) Construction Laborer: Alfred Chirinos MD WBC (Bld) [#/Vol] 14.1 10*3/uL High 4.5-13.5 [facility] Comment on above: Performed By: #### C DP, CP #### [facility] [address], [place] [id number] Construction Laborer: Alfred Chirinos MD Comp Metabolic Profon 2021 Albumin [Mass/Vol] 4.4 g/dL Normal 3.5-5.2 [facility] Comment on above: Performed By: #### C DP, CP #### [facility] [address], [place] [phone] Construction Laborer: Alfred Chirinos MD Alkaline Phos 75 U/L Normal 35-104 [facility] Comment on above: Performed By: #### C DP, CP #### [facility] [address] [place] [address] Construction Laborer: Alfred Chirinos MD ALT [Catalytic activity/Vol] 14 U/L Normal 5-33 [facility] Comment on above: Performed By: #### C DP, CP #### [facility] [address] [place] [address] Construction Laborer: Alfred Chirinos MD Anion gap [Moles/Vol] 12 mmol/L Normal 9-17 [facility] Comment on above: Performed By: #### C DP, CP #### [facility] [address] [place] [address] Construction Laborer: Alfred Chirinos MD AST [Catalytic activity/Vol] 14 U/L Normal <32 [facility] Comment on above: Performed By: #### C DP, CP #### [facility] [address], [place] [phone] Construction Laborer: Alfred Chirinos MD Bilirubin [Mass/Vol] 0.3 mg/dL Normal 0.3-1.2 [facility] Comment on above: Performed By: #### C DP, CP #### [facility] [address], [place] [phone] Construction Laborer: Alfred Chirinos MD BUN/CRE Ratio 19 Normal 9-20 [facility] Comment on above: Performed By: #### C DP, CP #### [facility] [address], [place] [phone] Construction Laborer: Alfred Chirinos MD Calcium [Mass/Vol] 9.0 mg/dL Normal 8.6-10.4 [facility] Comment on above: Performed By: #### C DP, CP #### [facility] [address], [place] [phone] Construction Laborer: Alfred Chirinos MD Chloride [Moles/Vol] 102 mmol/L Normal 98-107 [facility] Comment on above: Performed By: #### C DP, CP #### [facility] [address], [place] [id number] Construction Laborer: Alfred Chirinos MD CO2 [Moles/Vol] 22 mmol/L Normal 20-31 [facility] Comment on above: Performed By: #### C DP, CP #### [facility] [address], [place] [phone] Construction Laborer: Alfred Chirinos MD Creatinine [Mass/Vol] 0.52 mg/dL Normal 0.50-0.90 [facility] Comment on above: Performed By: #### C DP, CP #### [facility] [address], [place] [phone] Construction Laborer: Alfred Chirinos MD GFR/1.73 sq M.predicted among non-blacks MDRD (S/P/Bld) [Vol rate/Area] mL/min/{1.73_m2} Normal >60 [facility] Comment on above: Result Comment: Effective May 27, 2022 These results are not intended for use in patients <18 years of age. eGFR results are calculated without a race factor using the 2020 CKD-EPI equation. Careful clinical correlation is recommended, particularly when comparing to results calculated using previous equations. The CKD-EPI equation is less accurate in patients with extremes of muscle mass, extra-renal metabolism of creatine, excessive creatine ingestion, or following therapy that affects renal tubular secretion. Performed By: #### C DP, CP #### [facility] [address] [place] [address] Construction Laborer: Alfred Chirinos MD Glucose [Mass/Vol] 124 mg/dL High 70-99 [facility] Comment on above: Performed By: #### C DP, CP #### [facility] [address] [place] [address] Construction Laborer: Alfred Chirinos MD Potassium [Moles/Vol] 3.2 mmol/L Low 3.7-5.3 [facility] Comment on above: Performed By: #### C DP, CP #### [facility] [address] [place] [address] Construction Laborer: Alfred Chirinos MD Protein [Mass/Vol] 6.7 g/dL Normal 6.4-8.3 [facility] Comment on above: Performed By: #### C DP, CP #### [facility] [address] [place] [address] Construction Laborer: Alfred Chirinos MD Sodium [Moles/Vol] 136 mmol/L Normal 135-144 [facility] Comment on above: Performed By: #### C DP, CP #### [facility] [address] [place] [address] Construction Laborer: Alfred Chirinos MD Urea nitrogen [Mass/Vol] 10 mg/dL Normal 6-20 [facility] Comment on above: Performed By: #### C DP, CP #### [facility] [address] [place] [address] Construction Laborer: Alfred Chirinos MD [facility] Metabolic [facility] 08-24-2022 Albumin [Mass/Vol] 4.4 g/dL 3.5 - 5.2 g/dL [facility] ALP (Bld) [Catalytic activity/Vol] 75 U/L 35 - 104 U/L [facility] ALT [Catalytic activity/Vol] 14 U/L 5 - 33 U/L [facility] Anion gap [Moles/Vol] 12 mmol/L 9 - 17 mmol/L [facility] AST [Catalytic activity/Vol] 14 U/L NINF - 32 U/L [facility] Bilirubin [Mass/Vol] 0.3 mg/dL 0.3 - 1 .2 mg/dL [facility] Calcium [Mass/Vol] 9.0 mg/dL 8.6 - 10. 4 mg/dL [facility] Chloride [Moles/Vol] 102 mmol/L 98 - 10 7 mmol/L [facility] CO2 [Moles/Vol] 22 mmol/L 20 - 31 mmol/L [facility] Creatinine [Mass/Vol] 0.52 mg/dL 0.50 - 0.90 mg/dL [facility] GFR/1.73 sq M.predicted MDRD (S/P/Bld) [Vol rate/Area] - PINF [facility] Comment on above: Effective May 27, 2022 These results are not intended for use in patients <18 years of age. eGFR results are calculated without a race factor using the 2020 CKD-EPI equation. Careful clinical correlation is recommended, particularly when comparing to results calculated using previous equations. The CKD-EPI equation is less accurate in patients with extremes of muscle mass, extra-renal metabolism of creatine, excessive creatine ingestion, or following therapy that affects renal tubular secretion. Glucose [Mass/Vol] 124 mg/dL High 70 - 99 mg/dL [facility] Interpretation and review of laboratory results Abnormal [facility] Potassium [Moles/Vol] 3.2 mmol/L Low 3.7 - 5.3 mmol/L [facility] Protein [Mass/Vol] 6.7 g/dL 6.4 - 8.3 g/dL [facility] Sodium [Moles/Vol] 136 mmol/L 135 - 144 mmol/L [facility] Urea nitrogen (BldV) [Mass/Vol] 10 mg/dL 6 - 20 mg/dL [facility] Urea nitrogen/Creatinine (Bld) [Mass ratio] 19 9 - 20 [facility] HCG Qualitative, Serumon hCG Qual Positive Abnormal NEGATIVE [facility] Comment on above: If HCG results do not concur with clinical observations, additional testing to confirm result is recommended. This test is not labeled for use as a tumor marker. [facility] has confirmed the use of plasma for this test. This has not been cleared or approved by the U.S. Food and Drug Administration. The FDA has determined that such clearance is not necessary. Interpretation and review of laboratory results Abnormal [facility] HCG Screen, Bloodon 08-24-20 22 HCG Screen, Blood Positive Abnormal NEG [facility] Comment on above: Result Comment: If HCG results do not concur with clinical observations, additional testing to confirm result is recommended. This test is not labeled for use as a tumor marker. [facility] has confirmed the use of plasma for this test. This has not been cleared or approved by the U.S. Food and Drug Administration. The FDA has determined that such clearance is not necessary. Performed By: #### C DP, CP #### [facility] [address] [place] [address] Construction Laborer: Alfred Chirinos MD Urinalysison 08-24-2022 Bilirubin Urine Negative NEGATIVE [facility] Color, UA Yellow Yellow [facility] Glucose, Ur Negative NEGATIVE [facility] Interpretation and review of laboratory results Abnormal [facility] Ketones Ql (U) MODERATE Abnormal NEGATIVE [facility] Leukocyte esterase Test strip Ql (U) Negative NEGATIVE [facility] Nitrite, Urine Negative NEGATIVE [facility] pH, UA 6.0 5.0 - 8.0 [facility] Protein, UA TRACE Abnormal NEGATIVE [facility] Specific Taylor, UA 1.025 1.005 - 1.030 [facility] Turbidity UA Clear Clear [facility] Urinalysis Comments [facility] Urine Hgb Negative NEGATIVE [facility] Urobilinogen, Urine Normal Normal [facility] Urinalysis, Routineon 2021 Bilirubin, SemiQt,Ur Negative Normal NEG [facility] Comment on above: Performed By: #### U A #### [facility] [address], [place] [phone] Construction Laborer: Alfred Chirinos MD Blood, Urine Negative Normal NEG [facility] Comment on above: Performed By: #### U A #### [facility] [address] [place] [address] Construction Laborer: Alfred Chirinos MD Clarity (U) Clear Normal CLEAR [facility] Comment on above: Performed By: #### U A #### [facility] [address] [place] [address] Construction Laborer: Alfred Chirinos MD Color (U) Yellow Normal YEL [facility] Comment on above: Performed By: #### U A #### [facility] [address] [place] [address] Construction Laborer: Alfred Chirinos MD Comment Normal [facility] Comment on above: Performed By: #### U A #### [facility] [address] [place] [address] Construction Laborer: Alfred Chirinos MD Glucose Ql (U) Negative Normal NEG [facility] Comment on above: Performed By: #### U A #### [facility] [address] [facility] [place] [address] Construction Laborer: Alfred Chirinos MD Ketones Ql (U) MODERATE Abnormal NEG [facility] Comment on above: Performed By: #### U A #### [facility] [address] [place] [address] Construction Laborer: Alfred Chirinos MD Leukocyte esterase Test strip Ql (U) Negative Normal NEG [facility] Comment on above: Performed By: #### U A #### [facility] [address] [place] [address] Construction Laborer: Alfred Chirinos MD Nitrite,Ur Negative Normal NEG [facility] Comment on above: Performed By: #### U A #### [facility] [address] [place] [address] Construction Laborer: Alfred Chirinos MD PH,Ur 6.0 Normal 5.0-8.0 [facility] Comment on above: Performed By: #### U A #### [facility] [address] [place] [address] Construction Laborer: Alfred Chirinos MD Protein Ql (U) TRACE Abnormal NEG [facility] Comment on above: Performed By: #### U A #### [facility] [address] [place] [address] Construction Laborer: Alfred Chirinos MD Spec. Taylor,Ur 1.025 Normal 1.005-1.[address] [facility] Comment on above: Performed By: #### U A #### [facility] [address], [place] [phone] Construction Laborer: Alfred Chirinos MD Urobilinogen,Ur Normal Normal NORM [facility] Comment on above: Performed By: #### U A #### [facility] [address] [place] [address] Construction Laborer: Alfred Chirinos MD HCG, Quanton 08-12-2022 HCG, Quant 1823 mIU/mL High <5 [facility] Comment on above: Result Comment: Non-preg premeno <=5 Postmeno <=8 Male <=3 If HCG results do not concur with clinical observations, additional testing to confirm results is recommended. Performed By: #### B HCG #### [facility] [address] [place] [address] Construction Laborer: Alfred Chirinos MD CBC with Auto Differentialon 08-10-2022 Absolute Eos # 0.30 [facility] Absolute Lymph # 2.80 [facility] Absolute [place] # 0.[address] [facility] Basophils (Bld) [#/Vol] 0.00 10*3/uL [facility] Basophils/100 WBC (Bld) 0 % 0 - 2 % [facility] Differential Type YES [facility] Eosinophils/100 WBC (Bld) 3 % 0 - 5 % [facility] Hematocrit (Bld) [Volume fraction] 37.7 % 36 - 46 % [facility] Hemoglobin (Bld) [Mass/Vol] 12.7 g/dL 12.0 - 16.0 g/dL [facility] Lymphocytes/100 WBC (Bld) 26 % 15 - 40 % [facility] MCH (RBC) [Entitic mass] 29.5 pg 26 - 34 pg [facility] MCHC (RBC) [Mass/Vol] 33.7 g/dL 31 - 37 g/dL [facility] MCV (RBC) [Entitic vol] 87.5 fL 80 - 100 fL [facility] Monocytes/100 WBC (Bld) 8 % 4 - 8 % [facility] Platelet distribution width (Bld) [Ratio] 13.1 % 12.1 - 15.2 % [facility] Platelets (Bld) [#/Vol] 269 10*3/uL [facility] RBC (Bld) [#/Vol] 4.31 10*6/uL 4.0 - 5.2 m/uL [facility] Segmented neutrophils/100 WBC (Bld) 63 % 47 - 75 % [facility] Segs Absolute 7.00 [facility] WBC (Bld) [#/Vol] 10.9 10*3/uL [facility] CBC with Diffon 08-10-2022 Abs. Basophil 0.00 k/uL Normal 0.0-0.2 [facility] Comment on above: Performed By: #### L IP, CP, CDP #### [facility] [address] [place] [address] Construction Laborer: Alfred Chirinos MD Abs.Neutrophil (Seg) 7.00 k/uL Normal 2.5-7.0 [facility] Comment on above: Performed By: #### L IP, CP, CDP #### [facility] [address] [place] [id number] Construction Laborer: Alfred Chirinos MD Auto Diff Performed YES Normal [facility] Comment on above: Performed By: #### L IP, CP, CDP #### [facility] [address] [place] [address] Construction Laborer: Alfred Chirinos MD Basophils/100 WBC (Bld) 0 % Normal 0-2 [facility] Comment on above: Performed By: #### L IP, CP, CDP #### [facility] [address] [place] [address] Construction Laborer: Alfred Chirinos MD Eosinophils (Bld) [#/Vol] 0.30 10*3/uL Normal 0.0-0.4 [facility] Comment on above: Performed By: #### L IP, CP, CDP #### [facility] [address] [place] [address] Construction Laborer: Alfred Chirinos MD Eosinophils/100 WBC (Bld) 3 % Normal 0-5 [facility] Comment on above: Performed By: #### L IP, CP, CDP #### [facility] [address] [place] [address] Construction Laborer: Alfred Chirinos MD Erythrocyte distribution width (RBC) [Ratio] 13.1 % Normal 12.1-15.2 [facility] Comment on above: Performed By: #### L IP, CP, CDP #### [facility] [address], [place] [phone] Construction Laborer: Alfred Chirinos MD Hematocrit (Bld) [Volume fraction] 37.7 % Normal 36-46 [facility] Comment on above: Performed By: #### L IP CP, CDP #### [facility] [address], [place] [phone] Construction Laborer: Alfred Chirinos MD Hemoglobin (Bld) [Mass/Vol] 12.7 g/dL Normal 12.0-16.0 [facility] Comment on above: Performed By: #### L IP, CP, CDP #### [facility] [address] [place] [address] Construction Laborer: Alfred Chirinos MD Lymphocytes (Bld) [#/Vol] 2.80 10*3/uL Normal 1.0-4.8 [facility] Comment on above: Performed By: #### L ELIU CP, CDP #### [facility] [address] [place] [address] Construction Laborer: Alfred Chirinos MD Lymphocytes/100 WBC (Bld) 26 % Normal 15-40 [facility] Comment on above: Performed By: #### L ELIU CP, CDP #### [facility] [address], [place] [phone] Construction Laborer: Alfred Chirinos MD MCH (RBC) [Entitic mass] 29.5 pg Normal 26-34 [facility] Comment on above: Performed By: #### L IP CP, CDP #### [facility] [address] [place] [address] Construction Laborer: Alfred Chirinos MD MCHC (RBC) [Mass/Vol] 33.7 g/dL Normal 31-37 [facility] Comment on above: Performed By: #### L IP, CP, CDP #### [facility] [address] [place] [address] Construction Laborer: Alfred Chirinos MD MCV (RBC) [Entitic vol] 87.5 fL Normal 80-100 [facility] Comment on above: Performed By: #### L IP, CP, CDP #### [facility] [address] [place] [address] Construction Laborer: Alfred Chirinos MD Monocytes (Bld) [#/Vol] 0.80 10*3/uL Normal 0.0-1.0 [facility] Comment on above: Performed By: #### L IP, CP, CDP #### [facility] [address] [place] [address] Construction Laborer: Alfred Chirinos MD Monocytes/100 WBC (Bld) 8 % Normal 4-8 [facility] Comment on above: Performed By: #### L IP, CP, CDP #### [facility] [address] [place] [address] Construction Laborer: Alfred Chirinos MD Neutrophil (Seg) 63 % Normal 47-75 [facility] Comment on above: Performed By: #### L IP, CP, CDP #### [facility] [address] [place] [address] Construction Laborer: Alfred Chirinos MD Platelets (Bld) [#/Vol] 269 10*3/uL Normal 140-450 [facility] Comment on above: Performed By: #### L IP, CP, CDP #### [facility] [address] [place] [address] Construction Laborer: Alfred Chirinos MD RBC (Bld) [#/Vol] 4.31 10*6/uL Normal 4.0-5.2 [facility] Comment on above: Performed By: #### L IP, CP, CDP #### [facility] [address] [place] [address] Construction Laborer: Alfred Chirinos MD WBC (Bld) [#/Vol] 10.9 10*3/uL Normal 4.5-13.5 [facility] Comment on above: Performed By: #### L IP, CP, CDP #### [facility] [address] [place] [address] Construction Laborer: Alfred Chirinos MD [facility] 08-10-2022 Albumin [Mass/Vol] 4.2 g/dL 3.5 - 5.2 g/dL [facility] ALP (Bld) [Catalytic activity/Vol] 75 U/L 35 - 104 U/L [facility] ALT [Catalytic activity/Vol] 18 U/L 5 - 33 U/L [facility] Anion gap [Moles/Vol] 7 mmol/L Low 9 - 17 mmol/L [facility] AST [Catalytic activity/Vol] 16 U/L NINF - 32 U/L [facility] Bilirubin [Mass/Vol] 0.2 mg/dL Low 0.3 - 1 .2 mg/dL [facility] Calcium [Mass/Vol] 9.1 mg/dL 8.6 - 10. 4 mg/dL [facility] Chloride [Moles/Vol] 108 mmol/L High 98 - 10 7 mmol/L [facility] CO2 [Moles/Vol] 25 mmol/L 20 - 31 mmol/L [facility] Creatinine [Mass/Vol] 0.58 mg/dL 0.50 - 0.90 mg/dL [facility] GFR/1.73 sq M.predicted MDRD (S/P/Bld) [Vol rate/Area] - PINF [facility] Comment on above: Effective May 27, 2022 These results are not intended for use in patients <18 years of age. eGFR results are calculated without a race factor using the 2020 CKD-EPI equation. Careful clinical correlation is recommended, particularly when comparing to results calculated using previous equations. The CKD-EPI equation is less accurate in patients with extremes of muscle mass, extra-renal metabolism of creatine, excessive creatine ingestion, or following therapy that affects renal tubular secretion. Glucose [Mass/Vol] 95 mg/dL 70 - 99 mg/dL [facility] Interpretation and review of laboratory results Abnormal [facility] Potassium [Moles/Vol] 4.2 mmol/L 3.7 - 5.3 mmol/L [facility] Protein [Mass/Vol] 6.8 g/dL 6.4 - 8.3 g/dL [facility] Sodium [Moles/Vol] 140 mmol/L 135 - 144 mmol/L [facility] Urea nitrogen (BldV) [Mass/Vol] 7 mg/dL 6 - 20 mg/dL [facility] Urea nitrogen/Creatinine (Bld) [Mass ratio] 12 9 - 20 [facility] Comp Metabolic Profon 2021 Albumin [Mass/Vol] 4.2 g/dL Normal 3.5-5.2 [facility] Comment on above: Performed By: #### B HCG #### [facility] [address], [place] [id number] Construction Laborer: Alfred Chirinos MD Alkaline Phos 75 U/L Normal 35-104 [facility] Comment on above: Performed By: #### B HCG #### [facility] [address], [place] [id number] Construction Laborer: Alfred Chirinos MD ALT [Catalytic activity/Vol] 18 U/L Normal 5-33 [facility] Comment on above: Performed By: #### B HCG #### [facility] [address], [place] [phone] Construction Laborer: Alfred Chirinos MD Anion gap [Moles/Vol] 7 mmol/L Low 9-17 [facility] Comment on above: Performed By: #### B HCG #### [facility] [address], [place] [phone] Construction Laborer: Alfred Chirinos MD AST [Catalytic activity/Vol] 16 U/L Normal <32 [facility] Comment on above: Performed By: #### B HCG #### [facility] [address], [place] [id number] Construction Laborer: Alfred Chirinos MD Bilirubin [Mass/Vol] 0.2 mg/dL Low 0.3-1.2 [facility] Comment on above: Performed By: #### B HCG #### [facility] [address], [place] [id number] Construction Laborer: Alfred Chirinos MD BUN/CRE Ratio 12 Normal 9-20 [facility] Comment on above: Performed By: #### B HCG #### [facility] [address] [place], [place] [id number] Construction Laborer: Alfred Chirinos MD Calcium [Mass/Vol] 9.1 mg/dL Normal 8.6-10.4 [facility] Comment on above: Performed By: #### B HCG #### [facility] [address] [place], [place] [id number] Construction Laborer: Alfred Chirinos MD Chloride [Moles/Vol] 108 mmol/L High 98-107 [facility] Comment on above: Performed By: #### B HCG #### [facility] [address] [place] [address] Construction Laborer: Alfred Chirinos MD CO2 [Moles/Vol] 25 mmol/L Normal 20-31 [facility] Comment on above: Performed By: #### B HCG #### [facility] [address] [place], [place] [id number] Construction Laborer: Alfred Chirinos MD Creatinine [Mass/Vol] 0.58 mg/dL Normal 0.50-0.90 [facility] Comment on above: Performed By: #### B HCG #### [facility] [address] [place] [address] Construction Laborer: Alfred Chirinos MD GFR/1.73 sq M.predicted among non-blacks MDRD (S/P/Bld) [Vol rate/Area] mL/min/{1.73_m2} Normal >60 [facility] Comment on above: Result Comment: Effective May 27, 2022 These results are not intended for use in patients <18 years of age. eGFR results are calculated without a race factor using the 2020 CKD-EPI equation. Careful clinical correlation is recommended, particularly when comparing to results calculated using previous equations. The CKD-EPI equation is less accurate in patients with extremes of muscle mass, extra-renal metabolism of creatine, excessive creatine ingestion, or following therapy that affects renal tubular secretion. Performed By: #### B HCG #### [facility] [address] [place] [address] Construction Laborer: Alfred Chirinos MD Glucose [Mass/Vol] 95 mg/dL Normal 70-99 [facility] Comment on above: Performed By: #### B HCG #### [facility] [address] [place] [address] Construction Laborer: Alfred Chirinos MD Potassium [Moles/Vol] 4.2 mmol/L Normal 3.7-5.3 [facility] Comment on above: Performed By: #### B HCG #### [facility] [address] [place] [address] Construction Laborer: Alfred Chirinos MD Protein [Mass/Vol] 6.8 g/dL Normal 6.4-8.3 [facility] Comment on above: Performed By: #### B HCG #### [facility] [address] [place] [address] Construction Laborer: Alfred Chirinos MD Sodium [Moles/Vol] 140 mmol/L Normal 135-144 [facility] Comment on above: Performed By: #### B HCG #### [facility] [address] [place] [address] Construction Laborer: Alfred Chirinos MD Urea nitrogen [Mass/Vol] 7 mg/dL Normal 6-20 [facility] Comment on above: Performed By: #### B HCG #### [facility] [address] [place], [place] [id number] Construction Laborer: Alfred Chirinos MD HCG, Quanton 08-10-2022 HCG, Quant 587 mIU/mL High <5 [facility] Comment on above: Result Comment: Non-preg premeno <=5 Postmeno <=8 Male <=3 If HCG results do not concur with clinical observations, additional testing to confirm results is recommended. Performed By: #### B HCG #### [facility] [address] [place] [address] Construction Laborer: Alfred Chirinos MD Lipaseon 08-10-2022 Lipase [Catalytic activity/Vol] 26 U/L Normal 13-60 [facility] Comment on above: Performed By: #### B HCG #### [facility] [address] [place] [address] Construction Laborer: Alfred Chirinos MD Lipase [Catalytic activity/Vol] 26 U/L 13 - 60 U/L [facility] No Panel Informationon 08-10 [facility] US OB TRANSVAGINALon 022 US OB TRANSVAGINAL EXAM: US OB TRANSVAGINAL 08/10/2022 2:21 AM EST W CLINICAL STATEMENT: Abdominal pain COMPARISON: No prior studies are available at the time of dictation. TECHNIQUE: Transabdominal and transvaginal pelvic ultrasound was performed. FINDINGS: The uterus is anteverted and measures 8.7 x 4.4 x 6.2 cm . The endometrial echo complex measures 1.7 cm in AP diameter which thickening. No intrauterine . No fibroids are identified. The right ovary measures 3 x 2.1 x 2 cm . The left ovary measures 2.6 x 1.1 x 1.7 cm. Bilateral ovarian blood flow . There are no adnexal masses identified. There is mild amount of free fluid in the cul-de-sac. IMPRESSION: No intrauterine . Thickened endometrium 1.7 cm. Mild amount of free fluid in the cul-de-sac. FOLLOW-UP: Follow-up as clinically indicated. Interpreted by: Carlos Roland MD Signed by: Carlos Roland MD 08/10/22 Final result Normal [facility] Urinalysison 08-10-2022 Bilirubin Urine Negative NEGATIVE [facility] Color, UA Yellow Yellow [facility] Glucose, Ur Negative NEGATIVE [facility] Interpretation and review of laboratory results Abnormal [facility] Ketones Ql (U) Negative NEGATIVE [facility] Leukocyte esterase Test strip Ql (U) Negative NEGATIVE [facility] Nitrite, Urine Negative NEGATIVE [facility] pH, UA 7.0 5.0 - 8.0 [facility] Protein, UA TRACE Abnormal NEGATIVE [facility] Specific Taylor, UA 1.010 1.005 - 1.030 B ON [facility] Turbidity UA Clear Clear [facility] Urinalysis Comments [facility] Urine Hgb Negative NEGATIVE [facility] Urobilinogen, Urine Normal Normal [facility] Urinalysis, Routineon 2021 Bilirubin, SemiQt,Ur Negative Normal NEG [facility] Comment on above: Performed By: #### C DP, CP #### [facility] [address] [place], [place] [id number] Construction Laborer: Alfred Chirinos MD Blood, Urine Negative Normal NEG [facility] Comment on above: Performed By: #### C DP, CP #### [facility] [address] [place], [place] [id number] Construction Laborer: Alfred Chirinos MD Clarity (U) Clear Normal CLEAR [facility] Comment on above: Performed By: #### C DP, CP #### [facility] [address] [place], [place] [id number] Construction Laborer: Alfred Chirinos MD Color (U) Yellow Normal YEL [facility] Comment on above: Performed By: #### C DP, CP #### [facility] [address] [place], [place] [id number] Construction Laborer: Alfred Chirinos MD Comment Normal [facility] Comment on above: Performed By: #### C DP, CP #### [facility] [address] [place] [address] Construction Laborer: Alfred Chirinos MD Glucose Ql (U) Negative Normal NEG [facility] Comment on above: Performed By: #### C DP, CP #### [facility] [address] [place] [address] Construction Laborer: Alfred Chirinos MD Ketones Ql (U) Negative Normal NEG [facility] Comment on above: Performed By: #### C DP, CP #### [facility] [address] [place] [address] Construction Laborer: Alfred Chirinos MD Leukocyte esterase Test strip Ql (U) Negative Normal NEG [facility] Comment on above: Performed By: #### C DP, CP #### [facility] [address] [place] [address] Construction Laborer: Alfred Chirinos MD Nitrite,Ur Negative Normal NEG [facility] Comment on above: Performed By: #### C DP, CP #### [facility] [address] [place] [address] Construction Laborer: Alfred Chirinos MD PH,Ur 7.0 Normal 5.0-8.0 [facility] Comment on above: Performed By: #### C DP, CP #### [facility] [address] [place] [address] Construction Laborer: Alfred Chirinos MD Protein Ql (U) TRACE Abnormal NEG [facility] Comment on above: Performed By: #### C DP, CP #### [facility] [address] [place] [address] Construction Laborer: Alfred Chirinos MD Spec. Taylor,Ur 1.010 Normal 1.005-1.[address] [facility] Comment on above: Performed By: #### C DP, CP #### [facility] [address] [place] [address] Construction Laborer: Alfred Chirinos MD Urobilinogen,Ur Normal Normal NORM [facility] Comment on above: Performed By: #### C DP, CP #### [facility] [address] [place] [address] Construction Laborer: Alfred Chirinos MD hCG, quantitative, on 08-10-2022 hCG Quant 587 High NINF [facility] Comment on above: Non-preg premeno <=5 Postmeno <=8 Male <=3 If HCG results do not concur with clinical observations, additional testing to confirm results is recommended. Interpretation and review of laboratory results Abnormal [facility] Coding Summary.on 07-15-2022 Coding Summary. [id number] Gh0bWw+PGhlYWQ+PE1FV PPmY71woEUkwD0JL0hNH M8MMJGWXZXDRW8NNA3hv IB2BGdgF1XranPv YsrjaAQkIU47JXi1HQI8 xVwdZFoviL9ezTTnS3j0 NyGnVU93nK70DWatKFVs SbV1FuYuugtphXFa J7uiXmUxnJJxUdd+PHRh YmxlIHdpZHRoPScxMDAl NgDqmJacTF4aCv8fOSEm LWNvbGxhcHNlOiBj c5klURFhNJtiQS5ezSip P7DbwQF0EFYfi8y8Ii58 dHI+ILLgIGJ3tGaeWIcr l179QnSmb4rnEIW5 oBCpNUpqHSL3Q68wh7P0 UEHuAFEmALK3wDJ3fQ8n zVoltbffM9GmiNBeZtA4 UET9mOSffH1tcZvi hvmbfO9tBfb+B36HRA5F HCCGBC0DAah6O5RfNvlm dHI+OJ78TJFzLB37hTVr hLOve6quvBy5TiIq OTNqIXL9yZkjZOrdz7Jc SQCiY04bzKClc1L6IYKh jKhlaIMdYhCudDQ2kQ6r OAxwrjnkv0wfrurb Todkg9sbhs92kL87Y55b APaeIWQyCMJ1ZBLpJGCe rSyuhh9ocH8mGm6+IDxj x5pqb7wnoGk4LvLu KRRntqRvyGtoDRE6v1Ks Vd52N6UgmWqoj2NiMww7 vk48eZFkd8L4cUC6RHpl ZPQnfW7pORrhJrQ1 QZGjHdAizC28cHZvDDoq Mu3fkZkgjOtyCP8dPMYi mukvIVVkwM1vWKPofGSz eJtqTU0sGTFgnvsy v031NoSgSQJ5TORcfLEy V1BuoV0oQkEgQCQwYHUd P6UioSPgGHkeF149KKbh EiO7NXDgbvPbV6Jx MJSgwSinOxN8p3D0Zx2N p2KzhcpzTJV1NIkjIQVl XtRcXcZcUmE9T4IsIoi7 EHZqnXhtEL3tV8Th JLArafvjrdmftZJ2CKAf QDOsaE43kPOiQGzxXy0n n0L0p819UYZyGWEmmX81 Bu4dnBxfCRYptWVK qY9ykbwxa3lwwgjvHiFa GNCyNWk4XCu2OIIynFiu CiQiRXA6AxL4FTY3jCSt fJ6rfJfxmgtpaD2g Oyc+T58yzS3kGZM8IUC5 szhqXCLysyNzEA00DJ85 L0XlWxhytVChuPY+PGRp hqLufJecSZ1oNhSd o7ttl9AyHGvqH6UuWBVf CSexTrd4KDScZHV9xDF6 uF7wZPEtHXzgy7V7tLV5 W8DhgqXkhi8yy4vs ZVGdSXqnB83hySWaj7O7 HTNvzCW5NBXzpSzlLzZi jS76Ubg+PSCivMwpf2Cj Fptga3grd9redXv7 IjMwJSIgdmFsaWduPSJ0 g1AzIt44J99rVEntAIGt VGIpDRQrSVSdrSlxqu2b hB0rUe5+PGNvbCB3 yYZ2bJ7tSDTeXeC9UXlw N475UlZziHAvErrqd5pz w0eeyFp2LrXsWCEquiJo wOnmFJQ4k2MgXb55 S62nEPveUMCwYSClGDJw COTfnVvude5jeX9xDi5+ PG0zz4nbll97wC94oUB+ SWDjPHH8cSqaWZlh TPWjoE1qQKokEhB5TYYj EbAdiR89uBXjBGpeEo3m nVtrvPokBF3vZPZwfjng n529NzTzf9vzUTJd mZCoHSabAQZ6I69em8D5 BISuMUYcGFF9nQS7yF6m bGlnbjogbGVmdDsgdmVy dDyqYOpyQZjpA759 IHRvcDsnPlBhdGllbnQg OlIdUXd5A2KfNsu2MUFv eCmuHG9kdWBeSAksDn8u xBsijHwiHO0hERIx mvusn008LkEud3bpYYZy rGDuLJrjSQN3C43bz8Z4 JCBcMJGyLTL5iTV9oV2r bGlnbjogbGVmdDsg uxEriNcqSCalYIviE305 IHRvcDsnPkJpcnRoIERh kXI6FG98ST72tDCkh2H1 pQT8B2SlMPZvpoyg vzvjdUM8LYXwENAawH23 Vw2mdNepZm3dLXKqNHO3 VLCmwTBaM3BgcR8rGmXq QCMcEEEjX9NxpCVa VSgeD912YDhsTxS0ATKh ppPlF7WaRXSwjYjvQbF4 w7G9Vh9SQ5Z2DL88BH03 eQPdx8N7qHJ6U3Nt LCKzkxlacposaMJ6ENCr UBAclI74Fa0niSdlAb6r HLZgEFE1HXMceWZhN5Uv lH9lVpYtLDYoUWSv R5HouXZmHCfwP084OFvu OxD7RNHgurNvE7JnZYUv eDclNnM9f5D5Ql3IEYx0 UG06WY26tUPjg9G5 fIB4X7XkXORfqtcdfyri vPQ3QEVnQLWwaA56Kq8t yEiaUf6vGHUzPLU8TZTs kSUtG0QnkI9kKoGx EYMjSCOdJ4WucJZiIZnt F358ZCkyQqM5LFRkdlCp Q1OhFOVdzTxxRkO4u9Q7 Ti3AUQTpOZ67LHM8 bPD8QT76DK71J8SmQkmj dGFibGU+PHRhYmxlIHdp ZHRoPScxMDAlJyBzdHls XT3xPc5wAFYgCYKh lPzvkNTvBxIxi6aqSERw HAjdPI2lzAscP2OzjLN5 AZVpe6n9Wa79B12tY8Xe dXA+UQZmjPE3gGB0 fR2eXbCoWpR5GKjxH881 JcTkfGYzRnobe1akq6tp iTy9RxW9PMXjvzPqlUix JQN9w3IkRp61Y64z IHdpZHRoPSIxNSUiIHZh tDgski9skQ0zYu7+PGNv cDZ5nFH9sQ0jDnFxIhJ5 OWmiF269BnLrhHGl Apbyb7kll5mzbTc1RnFr BUKvnwGfvUgoYZO1j5Fc Xd78G9VxoZkra2CwXeh6 mo62pEPlm9J2sMO8 T5ViZSUqbewsdXXvdBzx JT4tNDRmexhmUVHkfJ8q FAJbU1n8HbOpItQ3DLzw R1FtowD7ZDTfrXEc EAzxPED9X77zj9B7VUWk GHBhOSI4hQO3dO1rxDrf bjogbGVmdDsgdmVydGlj LSejBZhwH984RKGt yVyeYQWqbX7xGOBguRZv nWbdVU7bUATrwbavFa3B CUVWBJCAYVGESBXWJK2I BQ43A7FoUos8UWNo eXchAO8crNRsWJvdNa3n dGsawIuyFF4xVAYinswz CCMpdU4oMYFhrYVadZum BP6iICKypmmqc392 QbFmRYB5LENmyDEyD4Ge lD6aQdLyBRUsCXVyR5Og gEPyURdoI563HZbzGbP6 YNTfbzOoS4SlNOFw kUydPbO6w8N3Eq0wWJ9h WM9wLPFrKH73ID03tWGo k8H3kXZ4Q4RoCXLaxntc yaqraTH6SPQkYOJg mF62jZMyIOoiAf8rr1S6 u438DOQfWBNnxO54Ba7o qHdbARKinPIIdU1crfsv z0rryxdaXsOnCTGv COy9APk2LGZelFdcDgLc HTR9HtI6NJT2fSDcdK9q kCnbeapjkP1zGld+MjEg GJAqcfM8N7JeVha6 FLLxtCvxUE7zyZKxCKnb Uz9gyUwegTivII8hCRUd mclzFYCkpS7eDTTmsIXv sKsxLG5wAVIzaycr p948KuJqCBL3OPEehMIc Z5TotH8iVtPqJPQhPOSm V4JdxKNvQJbrA570CQul OpW3MXAkurWcT2Sb NOPcvTxiUlA1n7D3Ze7W HI6qmAT8R9QcRzc2LUCx vWknCW1diEIdCJjfAa0f uDzqgMruXC4hOWUt swziMLZctD1iSMRxrPFw gUvtMH9fGJNhfpwnc519 DfVfWVK9CHZbaONyZ7Ot yN6jVwIzJTHqMIZp R6OzfTXkJYfpA725TVnl HwC7GJIvudIyF0AxKUOc aAjvLkV0g0N2Ch9BpVZo M5EmJ7c3H1LtHgwq dHI+LL89FVWqQC84hEXn gVSwy9iieMm5HnQbXANq CTW0zTupLBtur2LbZFHm K00wvJRef7U3ERKq gJcfdBTnJqXziGQ3wW4f RNywbxett8bczxxuIrzb y4qtlc31qZ67I70nLGpv ZHRoPSIzMCUiIHZh jKvknd8icM7aVw4+PGNv kED2kEF0bQ9xPmEvNyQ2 COicZ691PyEukWXuMamq g5ugh9blzWb3KgCj VJDtxdOdqUyhQYG4v4Rm Vc25T28tJBegTCDxOTYd ZFQkDCFkbJtmjk9thD4d Ii8+FR5oq5lvuq65 qR27eIX+VCIjYXP8qEmz MJsjXJKjeT0rIYlcKuT8 ZXMuQyIacD94sDBzNKiu Eh5ogAheeOjiXI9y KOOzounsu684OvZxg8sm IPInjKQjUTivKCD7W75k q5M0ONPbRNVzKZC3uPG9 jC5goJcekowliKOb dDsgdmVydGljYWwtYWxp L304ZGUcuEizTuMxpGPs T7cdbzYUMT7cBsvnyLL+ RAZnLHC9pOtqAPnn DRLreV2aFARuE8h3EyKp XkU6QZjdH5BlblU1ONNk sBFaQOUsoZBEcG0mkdba h3dealftKkDbMHLi FWt4AKs5YPFncHopSvHc MAJ2HjI9CTL7uLIbcD0y rNlptfzkfO3oReb+RklO OjwvdGQ+PHRkIHN0 pUzqUSyhBLYzhU0tJLCk R6h4FbTcMcH2LGewV7Qp nzN2GRVhcQZlIKPmxGJQ mE4qjkvek1fucpmy IkTzLCWpLHo9HOq7NGRv fSgfWePxIZK3EsB8UHK0 pVDlkN1foUyvdexdsP5q Oyc+TVJOOjwvdGQ+ PCOpZWC0gCueDOnqUJYw kF8lLDXyZ6t8BuNoBtN1 XCvlT7DhdaR8KQPacNRr RZVbgGVLpV8sgasw n3uzbokrRvOpLLUpUNl3 JTa5IQHpgDgjIwLiJVR2 MwW7ONZ7rQIryN1gxXbo jawocP1mYir+UGF5 GDX7IY66FK25C4WhQnjo dGFibGU+PHRhYmxlIHdp ZHRoPScxMDAlJyBzdHls RG1lWc6cBBKjNJDm bGxh (more content not included)... Normal [facility] Auto Diffon 07-12-2022 Basophils/100 WBC (Bld) 0.6 % Normal 0.0-2.0 [facility] Comment on above: Order Comment: Order Added by Discern Expert. Performed By: #### 2 862197, 9356496, 6886783, 1947121, 18378474, 7883410, 0030715 #### [facility] [address] [place] [address] Basophils/Leukocytes Auto (Bld) [Pure # fraction] 0.1 E9/L Normal 0.0-0.2 [facility] Comment on above: Order Comment: Order Added by Discern Expert. Performed By: #### 2 951667, 4589415, 4557846, 3715359, 96716486, 0058064, 2862718 #### [facility] [address] [place] [address] Eosinophils/100 WBC (Bld) 5.6 % Normal 0.0-8.0 [facility] Comment on above: Order Comment: Order Added by Discern Expert. Performed By: #### 2 815455, 5408606, 4986740, 4934857, 56561628, 5683181, 7295976 #### [facility] [address] [place] [address] Eosinophils/Leukocyte s Auto (Bld) [Pure # fraction] 0.5 E9/L Normal 0.0-0.5 [facility] Comment on above: Order Comment: Order Added by Discern Expert. Performed By: #### 2 759315, 1418978, 9448709, 3968251, 04850494, 1514868, 6996824 #### [facility] [address] [place] [address] Lymphocytes/100 WBC (Bld) 34.7 % Normal 14.0-50.0 [facility] Comment on above: Order Comment: Order Added by Discern Expert. Performed By: #### 2 806981, 2411759, 2339480, 9032645, 15068207, 3440393, 7634313 #### [facility] [address] [place] [address] Lymphocytes/Leukocyte s Auto (Bld) [Pure # fraction] 3.1 E9/L Normal 1.0-4.0 [facility] Comment on above: Order Comment: Order Added by Discern Expert. Performed By: #### 2 371968, 3080591, 6158777, 0838909, 43612793, 4002623, 2871020 #### [facility] [address] [place] [address] Monocytes/100 WBC (Bld) 10.3 % Normal 4.0-14.0 [facility] Comment on above: Order Comment: Order Added by Ally Expert. Performed By: #### 2 876734, 8068617, 1862589, 6633296, 64221594, 3534795, 6362572 #### [facility] [address] [place] [address] Monocytes/Leukocytes Auto (Bld) [Pure # fraction] 0.9 E9/L Normal 0.2-1.0 [facility] Comment on above: Order Comment: Order Added by Discern Expert. Performed By: #### 2 897092, 1578841, 6162357, 9028553, 63236546, 5120557, 3732584 #### [facility] [address] [place] [address] Neutrophils/100 WBC (Bld) 48.8 % Normal 36.0-75.0 [facility] Comment on above: Order Comment: Order Added by Discern Expert. Performed By: #### 2 056006, 4677899, 9210788, 7284956, 81115771, 2775326, 4668383 #### [facility] [address] [place] [address] Neutrophils/Leukocyte s Auto (Bld) [Pure # fraction] 4.4 E9/L Normal 2.0-7.5 [facility] Comment on above: Order Comment: Order Added by Discern Expert. Performed By: #### 2 225084, 8222241, 2419751, 3989263, 19993980, 7962025, 1053733 #### [facility] [address] [place] [address] B hCG Qualon 07-12-2022 Beta hCG Ql Negative Normal [facility] Comment on above: Performed By: #### 2 141030, 5536245, 7852322, 5773874, 86055909, 2654382, 8553723 #### [facility] [address] [place] [address] BMPon 07-12-2022 Creatinine [Mass/Vol] 0.7 mg/dL Normal 0.5-1.3 [facility] Comment on above: Performed By: #### 2 537440, 9580875, 8106273, 0256131, 87328517, 5287689, 6644199 #### [facility] [address] [place] [address] Urea nitrogen [Mass/Vol] 9 mg/dL Normal 5-21 [facility] Comment on above: Performed By: #### 2 513377, 4524024, 8274724, 2982043, 78685238, 3266240, 7301628 #### [facility] [address] [place] [address] Urea nitrogen/Creatinine [Mass ratio] 13 No Units Normal 10-20 [facility] Comment on above: Performed By: #### 2 612273, 8047271, 6299335, 9823671, 46549894, 5787167, 4557308 #### [facility] [address] [place] [address] Anion gap [Moles/Vol] 7 mmol/L Normal 6-16 [facility] Comment on above: Performed By: #### 2 723669, 6282865, 2595266, 4880357, 46398842, 7611638, 9934244 #### [facility] [address] [place] [address] Calcium [Mass/Vol] 8.8 mg/dL Low 8.9-11.1 [facility] Comment on above: Performed By: #### 2 957542, 9538304, 2787671, 6570974, 03930363, 1382340, 1877558 #### [facility] [address] [place] [address] Chloride [Moles/Vol] 106 mmol/L Normal 101-111 [facility] Comment on above: Performed By: #### 2 799486, 1298943, 1030718, 4557689, 35631891, 2291460, 6752284 #### [facility] [address] [place] [address] CO2 [Moles/Vol] 31 mmol/L Normal 21-31 [facility] Comment on above: Performed By: #### 2 449951, 2321093, 7423977, 9601112, 37267602, 9213222, 6900445 #### [facility] [address] [place] [address] Glucose [Mass/Vol] 108 mg/dL Normal 55-199 [facility] Comment on above: Result Comment: If t his glucose result represents a fasting glucose, interpretation should refer to the following reference range: 55-99 mg/dL Performed By: #### 2 193052, 2814350, 3188064, 2179210, 74228200, 9757389, 5523744 #### [facility] [address] [place] [address] Potassium [Moles/Vol] 3.3 mmol/L Low 3.5-5.3 [facility] Comment on above: Performed By: #### 2 235942, 1941218, 8379184, 4598315, 04771953, 0002466, 0551539 #### [facility] [address] [place] [address] Sodium [Moles/Vol] 141 mmol/L Normal 135-145 [facility] Comment on above: Performed By: #### 2 087196, 0664284, 3648778, 8610055, 19325465, 5855711, 5733659 #### [facility] [address] [place] [address] CBC w/ Auto Diffon Erythrocyte distribution width (RBC) [Ratio] 13.6 % Normal 10.9-14.2 [facility] Comment on above: Performed By: #### 2 649608, 8837038, 4116799, 1672665, 49621663, 2677077, 4048606 #### [facility] [address] [place] [address] Hematocrit (Bld) [Volume fraction] 35.6 % Normal 34.0-46.0 [facility] Comment on above: Performed By: #### 2 713892, 8619190, 9850506, 5894340, 84945715, 9041450, 7671588 #### [facility] [address] [place] [address] Hemoglobin (Bld) [Mass/Vol] 12.5 g/dL Normal 12.0-16.0 [facility] Comment on above: Performed By: #### 2 502385, 0903583, 7104728, 1479361, 53813466, 4555306, 2508110 #### [facility] [address] [place] [address] MCH (RBC) [Entitic mass] 28.7 pg Normal 27.0-34.0 [facility] Comment on above: Performed By: #### 2 451111, 1550318, 2105250, 0201628, 20474754, 5230176, 9464998 #### [facility] [address] [place], [place] [address] MCHC (RBC) [Mass/Vol] 35.1 g/dL Normal 31.4-36.0 [facility] Comment on above: Performed By: #### 2 996206, 4873736, 0335138, 3078072, 29090090, 1340923, 7238809 #### [facility] [address] [place], [place] [address] MCV (RBC) [Entitic vol] 81.8 fL Normal 80.0-100.0 [facility] Comment on above: Performed By: #### 2 [id number], 9353609, 5867292, 8532370, 12282699, 6371717, 8206657 #### [facility] [address] [place] [address] Platelet mean volume (Bld) [Entitic vol] 7.6 fL Normal 6.4-10.8 [facility] Comment on above: Performed By: #### 2 456410, 8055597, 3290012, 0083619, 63178206, 1304945, 2525447 #### [facility] [address] [place] [address] Platelets (Bld) [#/Vol] 262.0 E9/L Normal 150.0-500.0 [facility] Comment on above: Performed By: #### 2 828678, 2030459, 3446345, 8297965, 04095662, 0959706, 1183984 #### [facility] [address] [place] [address] RBC (Bld) [#/Vol] 4.4 E12/L Normal 4.3-5.9 [facility] Comment on above: Performed By: #### 2 290847, 4350973, 7809753, 0258476, 26682011, 8712190, 9996818 #### [facility] [address] [place] [address] WBC corrected for nucl RBC Auto (Bld) [#/Vol] 8.9 E9/L Normal 4.0-11.0 [facility] Comment on above: Performed By: #### 2 491172, 4801991, 3272971, 4171298, 18885634, 7025796, 4859768 #### [facility] [address] [place] [address] CHEMISTRYOrdered By: SYSTEM SYSTEM on 07-12-2022 Albumin [Mass/Vol] 4.0 g/dL Normal 3.3 - 5.0 gm/dL [facility] Albumin/Globulin [Mass ratio] 1.3 {ratio} Normal 1.1 - 2.2 [facility] ALP [Catalytic activity/Vol] 59 [iU]/d Normal 21 - 98 Int._Unit/L [facility] ALT No additional P-5'-P [Catalytic activity/Vol] 17 [iU]/d Normal 6 - 46 Int._Unit/L [facility] Anion gap [Moles/Vol] 7 mmol/L Normal 6 - 16 mEq/L [facility] AST [Catalytic activity/Vol] 17 [iU]/d Normal 5 - 43 Int._Unit/L [facility] Bilirubin [Mass/Vol] 0.3 mg/dL Normal 0.0 - 1 .1 mg/dL [facility] Bilirubin.direct [Mass/Vol] mg/dL Normal 0.1 - 0.4 mg/dL [facility] Bilirubin.indirect [Mass or moles/Vol] Unable to Calculate mg/dL Invalid Interpretation Code 0.1 - 0.9 mg/dL [facility] Calcium [Mass/Vol] 8.8 mg/dL Low 8.9 - 11. 1 mg/dL [facility] Chloride [Moles/Vol] 106 mmol/L Normal 101 - 1 11 mmol/L [facility] CO2 [Moles/Vol] 31 mmol/L Normal 21 - 31 mmol/L [facility] Creatinine [Mass/Vol] 0.7 mg/dL Normal 0.5 - 1.3 mg/dL [facility] GFR/1.73 sq M.predicted among blacks MDRD (S/P/Bld) [Vol rate/Area] mL/min/1.73 m2 Normal >=59mL/min/1. 73 m2 [facility] S GFR/1.73 sq M.predicted among non-blacks MDRD (S/P/Bld) [Vol rate/Area] mL/min/1.73 m2 Normal >=59mL/min/1. 73 m2 [facility] S Globulin (S) [Mass/Vol] 3.1 g/dL Normal 1.4 - 4.0 gm/dL [facility] Glucose [Mass/Vol] 108 mg/dL Normal 55 - 199 mg/dL [facility] Lipase [Catalytic activity/Vol] 35 U/L Normal 13 - 58 unit/L [facility] Potassium [Moles/Vol] 3.3 mmol/L Low 3.5 - 5.3 mmol/L [facility] Protein [Mass/Vol] 7.1 g/dL Normal 6.0 - 7.8 gm/dL [facility] Sodium [Moles/Vol] 141 mmol/L Normal 135 - 145 mmol/L [facility] Troponin I.cardiac [Mass/Vol] pg/mL Low 10.10 - 27.10 pg/mL [facility] Urea nitrogen [Mass/Vol] 9 mg/dL Normal 5 - 21 mg/dL [facility] Urea nitrogen/Creatinine [Mass ratio] 13 mg/mg Normal 10 - 20 [facility] Consent for Treatmenton 06-25 Consent for Treatment [id number] #[id number]:[id number] Normal [facility] Discharge Instructionson Discharge Instructions [id number] Normal [facility] ED Clinical Summaryon 2021 ED Clinical Summary [place] [id number] ED Clinical Summary Person Information Name: ROQUE PIESRON/Radha Age: 22 Years : 2000 Sex: Female Language: Serbian PCP: Delfin Urbano MD Marital Status: Single Visit Id: Visit Reason: Cough; Abdominal pain; Shortness of breath; SOB, RIB PAIN Speciality: Acuity: 3 Enc Type: Emergency Med Service: Emergency Arrival: 07/12/2022 03:36:47 Discharge: 07/12/2022 05:07:05 LOS: 000 01:31 Checkin: 07/12/2022 03:36:47 Checkout: 07/12/2022 05:07:05 Dispo Type: Home (Routine DC) EVENTS: Event Name Event Status Request Date/Time Start Date/Time Complete Date/Time Arrive Complete 07/12/2022 03:36:47 07/12/2022 03:36:47 07/12/2022 03:36:47 Document Home Meds Request 07/12/2022 03:36:47 Triage Complete 07/12/2022 03:36:47 07/12/2022 03:55:19 07/12/2022 03:55:19 EKG Complete 07/12/2022 03:39:46 07/12/2022 03:46:59 Bed Assign Complete 07/12/2022 03:40:02 07/12/2022 03:40:02 07/12/2022 03:40:02 Dr Exam Complete 07/12/2022 03:40:02 07/12/2022 03:40:25 07/12/2022 03:40:25 RN Exam Complete 07/12/2022 03:40:02 07/12/2022 04:11:45 07/12/2022 04:11:45 Registration Complete 07/12/2022 03:40:25 07/12/2022 03:59:28 07/12/2022 03:59:28 Meds Admin Complete 07/12/2022 03:55:37 07/12/2022 04:08:49 Pending Labs Request 07/12/2022 03:55:37 Lab Request 07/12/2022 03:55:37 Urine Collect Request 07/12/2022 03:55:37 X-Ray Complete 07/12/2022 03:55:37 07/12/2022 04:04:36 07/12/2022 04:15:18 Meds Admin Complete 07/12/2022 03:56:02 07/12/2022 04:08:48 Reg Complete Request 07/12/2022 03:59:28 Reg Bed Request Complete 07/12/2022 03:59:28 07/12/2022 03:59:28 07/12/2022 03:59:28 Pending Labs Complete 07/12/2022 04:06:52 07/12/2022 04:06:52 07/12/2022 04:29:25 Lab Complete 07/12/2022 04:06:52 07/12/2022 04:06:52 07/12/2022 04:29:25 Pending Labs Complete 07/12/2022 04:12:57 07/12/2022 04:12:57 07/12/2022 04:13:06 Lab Complete 07/12/2022 04:12:57 07/12/2022 04:12:57 07/12/2022 04:13:06 Wet Read Request 07/12/2022 04:15:18 Discharge Complete 07/12/2022 04:47:13 07/12/2022 05:07:15 07/12/2022 05:07:15 Transfer Complete 07/12/2022 05:07:15 07/12/2022 05:07:15 07/12/2022 05:07:15 ADDRESS: [address] [place] [address] [id number] PHYS DOC NOTES: MEDICAL INFORMATION: Prescriptions Given: New Medications Printed Prescriptions famotidine (Pepcid 20 mg Tab) 1 Tablets By Mouth every day. Refills: 0. ondansetron (Zofran 4 mg Tab) 1 Tablets By Mouth every 8 hours as needed Nausea/Vomiting. Refills: 0. sucralfate (Carafate 1 gram Tab) 1 Tablets By Mouth 4 times a day for 7 Days. Refills: 0. Medications to Continue with No Changes Other Medications cetirizine (Zyrtec) 5 Milligram By Mouth every day. fluticasone nasal (Childrens Flonase 50 mcg/inh nasal spray) 1 Sprays Nasal Inhalation every day. PATIENT EDUCATION INFORMATION: Instructions: Abdominal Pain, Adult, Ivol-vr-Toog Follow up: With: Address: When: Delfin Urbano [address] [place] [address], [address] [place] [phone] Business (1) In 3 days 07/15/2022 Comments: Take the Pepcid once daily for the next 10 days and to completed the course. You can use the Zofran every 6 hours as needed for nausea or vomiting. You can use the Carafate 4 times a day as needed for pain. Please follow-up with your primary care doctor in the next 2 to 3 days. Please return to the ED for any new or worsening symptoms. DIAGNOSIS: Epigastric abdominal pain Normal [facility] ED Note-Physicianon 07-12-20 ED Note-Physician Basic Information Time Seen: Sissy Shha DO 07/12/2022 03:40 Chief Complaint Pt. 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 History of Present Illness Patient is a 22-year-old female presenting to the ED for evaluation of abdominal pain, bilateral rib pain and shortness of breath. Patient states she was getting ready for bed when she started having the pain. Patient states she has been sick recently with cough, congestion however has improved over the last several days. Denies any fever, chills, nausea, vomiting, dizziness or lightheadedness. Notes pain predominantly in the upper abdomen described as sharp, stabbing Review of Systems General: Denied fever, chills, weight loss HEENT: Denied Congestion, rhinorrhea, sore throat Cardiac: Denied Chest pain, palpitations, dizziness/lightheade dness Respiratory: Denied cough , + dyspnea Abdominal: +abdominal pain, denied nausea, vomiting, diarrhea, constipation : Denied dysuria, hematuria Extremities: Denied leg swelling, leg pain, calf tenderness Neuro: Denied Focal neurologic deficits, vision changes, difficulty with speech Integumentary: Denied rashes or lesions Physical Exam Vitals & Measurements T: 36.4 ?C(Oral) HR: 94(Peripheral) RR: 20 BP: 125/64 SpO2: 98% HT: 175.26 cm WT: 79.5 kg BMI: 25.88 General: Well developed, non toxic appearing, no acute distress HEENT: Head atraumatic, Mucosa moist, hearing grossly normal Neck: No JVD, tracheal deviation Cardiac: Regular rate, rhythm, no murmurs, or gallops, 2+ radial pulses Respiratory: Lungs clear to auscultation B/L, normal respiratory effort Abdomen: Soft, tenderness palpation of the epigastrium, negative Shah sign no rebound or guarding, no peritoneal signs Extremities: No edema noted in the LE B/L, no tenderness to palpation Neurologic: Alert and oriented, speech clear Skin: No rashes or lesions Psych: Appropriate mood and behavior Medical Decision Making Patient is a 22-year-old female presenting to the ED for evaluation of abdominal pain, shortness of breath. Patient is nontoxic-appearing on arrival, no acute distress. Does have epigastric tenderness on examination. Laboratory evaluation is obtained patient is given medications for pain. Patient's laboratory evaluations unremarkable, potassium is mildly low at 3.3, lipase is negative troponins negative. Lipase is negative. On reevaluation patient is feeling improved. She is discharged home with prescription for Pepcid, Carafate, and Zofran. She is to follow-up with her primary care doctor in the next 2 to 3 days for further evaluation management. She is to return the ED for any new or worsening symptoms. Assessment/Plan Epigastric abdominal pain (R10.13: Epigastric pain) Orders: Al hydroxide/Mg hydroxide/simethicon e, 30 mL, Susp-Oral, Oral, Once, Stop date 07/12/22 3:55:00 EST, STAT, Start date 07/12/22 3:55:00 EST atropine/hyoscyamine /PB/scopolamine, 10 mL, Elixir, Oral, Once, Stop date 07/12/22 3:55:00 EST, STAT, Start date 07/12/22 3:55:00 EST famotidine, 20 mg = 1 tab(s), Oral, Daily, # 14 tab(s), Refills(s) 0 famotidine, 20 mg = 2 mL, Soln-IV, IV Push, Once, Stop date 07/12/22 3:55:00 EST, STAT, Start date 07/12/22 3:55:00 EST, 07/12/22 3:55:00 EST ketorolac, 30 mg = 1 mL, Injection, IV Push, Once, Stop date 07/12/22 3:55:00 EST, STAT, Start date 07/12/22 3:55:00 EST, 07/12/22 3:55:00 EST lidocaine topical, 200 mg, 10 mL, Soln-Oral, Oral, Once, Stop date 07/12/22 3:55:00 EST, STAT, Start date 07/12/22 3:55:00 EST ondansetron, 4 mg = 2 mL, Injection, IV Push, Once, Stop date 07/12/22 3:55:00 EST, STAT, Start date 07/12/22 3:55:00 EST, 07/12/22 3:55:00 EST ondansetron, 4 mg = 1 tab(s), Oral, q8hr, PRN Nausea/Vomiting, # 12 tab(s), Refills(s) 0 Sodium Chloride 0.9% intravenous solution, 1,000 mL, Soln-IV, IV, Once, Stop date 07/12/22 3:55:00 EST, STAT, Start date 07/12/22 3:55:00 EST, Infuse over 61, minute(s) Sodium Chloride 0.9% intravenous solution, Soln-IV, Misc, Once, Stop date 07/12/22 3:58:23 EST, Physician Stop, 07/12/22 3:58:23 EST sucralfate, 1 gm = 1 tab(s), Oral, QID, X 7 day(s), # 28 tab(s), Refills(s) 0 Automated Diff Basic Metabolic Panel Beta hCG Qual CBC w/ Auto Diff ECG 12 Lead Adult eGFR Hepatic Function Panel Lipase Level Troponin 0 Hr. UA With Cult Reflex XR Chest Single View Medications Administered Given Al hydroxide/Mg hydroxide/simethicon e 200 mg-200 mg-20 mg/5 mL oral suspension, 30 mL, Oral Elixir, 10 mL, Oral famotidine 10 mg/mL IV Wanda, 20 mg, IV Push ketorolac 30 mg/mL Inj 1 mL, 30 mg, IV Push lidocaine Viscous Top 2% Wanda 15 mL, 200 mg, Oral NS 1000 ml Bolus, 1000 mL, IV ondansetron 4 mg/2 mL Inj, 4 mg, IV Push Disposition Plan Discharge Prescription List Prescriptions Carafate 1 gram Tab, 1 gm= 1 tab(s), Oral, QID Pepcid 20 mg Tab, 20 mg= 1 tab(s), Oral, Daily Zofran 4 mg Tab, 4 mg= 1 tab(s), Oral, q8hr, PRN Fol (more content not included)... Normal [facility] Comment on above: Result Comment: Elec tronically Signed By: Sissy Shah DO\.br\Date and Time Signed: 07/12/22 04:48 EST ED Patient Education Noteon 07-12-2022 ED Patient Education Note Gastroenterology Abdominal Pain, Adult Many things can cause belly (abdominal) pain. Most times, belly pain is not dangerous. Many cases of belly pain can be watched and treated at home. Sometimes, though, belly pain is serious. Your doctor will try to find the cause of your belly pain. Follow these instructions at home: Medicines ? Take ixcs-ecz-dhewhqz and prescription medicines only as told by your doctor. ? Do not take medicines that help you poop (laxatives) unless told by your doctor. General instructions ? Watch your belly pain for any changes. ? Drink enough fluid to keep your pee (urine) pale yellow. ? Keep all follow-up visits as told by your doctor. This is important. Contact a doctor if: ? Your belly pain changes or gets worse. ? You are not hungry, or you lose weight without trying. ? You are having trouble pooping (constipated) or have watery poop (diarrhea) for more than 2?3 days. ? You have pain when you pee or poop. ? Your belly pain wakes you up at night. ? Your pain gets worse with meals, after eating, or with certain foods. ? You are vomiting and cannot keep anything down. ? You have a fever. ? You have blood in your pee. Get help right away if: ? Your pain does not go away as soon as your doctor says it should. ? You cannot stop vomiting. ? Your pain is only in areas of your belly, such as the right side or the left lower part of the belly. ? You have bloody or black poop, or poop that looks like tar. ? You have very bad pain, cramping, or bloating in your belly. ? You have signs of not having enough fluid or water in your body (dehydration), such as: ? Dark pee, very little pee, or no pee. ? Cracked lips. ? Dry mouth. ? Sunken eyes. ? Sleepiness. ? Weakness. ? You have trouble breathing or chest pain. Summary ? Many cases of belly pain can be watched and treated at home. ? Watch your belly pain for any changes. ? Take mbfm-tuf-rkypiot and prescription medicines only as told by your doctor. ? Contact a doctor if your belly pain changes or gets worse. ? Get help right away if you have very bad pain, cramping, or bloating in your belly. This information is not intended to replace advice given to you by your health care provider. Make sure you discuss any questions you have with your health care provider. Document Released: 01/27/2009 Document Revised: 12/20/2019 Document Reviewed: 12/20/2019 Bundle Patient Education ? 2019 [employer]. Normal [facility] ED Patient Summaryon 022 ED Patient Summary [place] [id number] Patient Discharge Instructions Person Information Name: ROQUE PIERSON Age: 22 Years Arrival Date: 07/12/2022 03:36:47 Discharge Diagnosis: Epigastric abdominal pain Primary Care Physician: Delfin Urbano MD Provider Information Primary Provider: Sissy Shah DO Advanced Pressroom Foreman:None The exam and treatment you received in the Emergency Department were for an urgent problem and are not intended as complete care. It is important that you follow up with a doctor, nurse practitioner, or physician?s assistant signal maintainer for ongoing care. If your symptoms become worse or you do not improve as expected and you are unable to reach your usual health care provider, you should return to the Emergency Department. We are available 24 hours a day. ROQUE PIERSON has been given the following list of patient education materials, prescriptions and follow-up instructions: Follow-up Instructions: With: Address: When: Delfin Urbano [address] [facility], [address] [place] [phone] Business (1) In 3 days 07/15/2022 Comments: Take the Pepcid once daily for the next 10 days and to completed the course. You can use the Zofran every 6 hours as needed for nausea or vomiting. You can use the Carafate 4 times a day as needed for pain. Please follow-up with your primary care doctor in the next 2 to 3 days. Please return to the ED for any new or worsening symptoms. In the event that this physician does not participate in your insurance network, please consult with your insurance company to find a nearby participating provider. Patient Education Materials: Abdominal Pain, Adult, Gihu-xo-Xgos A MESSAGE TO ALL PATIENTS REGARDING OPIOIDS PRESCRIPTION OPIOIDS: WHAT YOU NEED TO KNOW Prescription opioids can be used to help relieve niubdnkt-kc-vkvgys pain and are often prescribed following a surgery or injury, or for certain health conditions. These medications can be an important part of the treatment but also come with serious risks. It is important to work with your healthcare provider to make sure you are getting the safest, most effective care. WHAT ARE THE RISKS AND SIDE EFFECTS OF OPIOID USE? Prescription opioids carry serious risks of addiction and overdose, especially with prolonged use. An opioid overdose, often marked by slowed breathing, can cause sudden . The use of prescription opioids can have a number of side effects as well, even when taken as directed: ? Tolerance?meaning you might need to take more of the medication for the same pain relief ? Physical dependence?meaning you have symptoms of withdrawal when a medication is stopped ? Increased sensitivity to pain ? Constipation ? Nausea, vomiting, and dry mouth ? Sleepiness and dizziness ? Confusion ? Depression ? Low levels of testosterone that can result in lower sex drive, energy, and strength ? Itching and sweating RISKS ARE GREATER WITH: ? History of drug misuse, substance use disorder, or overdose ? Mental health conditions (such as depression or anxiety) ? Sleep apnea ? Older age (65 years and older) ? Avoid alcohol while taking prescription opioids. Also, unless specifically advised by your health care provider, medications to avoid include: ? Benzodiazepines (such as Xanax or Valium) ? Muscle relaxants (such as Soma or Flexeril) ? Hypnotics (such as Ambien or Lunesta) ? Other prescription opioids KNOW YOUR OPTIONS Talk to your health care provider about ways to manage your pain that don?t involve prescription opioids. Some of these options may actually work better and have fewer risks and side effects. Options may include: ? Pain relievers such as acetaminophen, ibuprofen, and naproxen ? Some medication that are also used for depression or seizures ? Physical therapy and exercise ? Cognitive behavioral therapy, a psychological, goal-directed approach, in which patients learn how to modify physical, behavioral, and emotional triggers of pain and stress. IF YOU ARE PRESCRIBED OPIOIDS FOR PAIN: ? Never take opioids in greater amounts or more often than prescribed. ? Follow up with your primary health care provider. o Work together to create a plan on how to manage your pain. o Talk about ways to help manage your pain that don?t involve prescription opioids. o Talk about any and all concerns and side effects. ? Help prevent misuse and abuse o Never sell or share prescription opioids. o Never use another person?s prescription opioids. ? Store prescription opioids in a secure place and out of reach of others (this may include visitors, children, friends, and family). ? Safely dispose of unused prescription opioids: Find your community drug take-back program or your pharmacy mail-back program, or flush them down the toilet, fol (more content not included)... Normal [facility] HEMATOLOGYOrdered By: SYSTEM SYSTEM on 07-12-2022 Basophils/100 WBC (Bld) 0.6 % Normal 0.0 - 2.0 % [facility] Basophils/Leukocytes Auto (Bld) [Pure # fraction] 0.1 E9/L Normal 0.0 - 0.2 E9/L [facility] Eosinophils/100 WBC (Bld) 5.6 % Normal 0.0 - 8.0 % [facility] Eosinophils/Leukocyte s Auto (Bld) [Pure # fraction] 0.5 E9/L Normal 0.0 - 0.5 E9/L [facility] Lymphocytes/100 WBC (Bld) 34.7 % Normal 14.0 - 50.0 % [facility]eAutoSS Lymphocytes/Leukocyte s Auto (Bld) [Pure # fraction] 3.1 E9/L Normal 1.0 - 4.0 E9/L [facility] HemeAutoSS Monocytes/100 WBC (Bld) 10.3 % Normal 4.0 - 14.0 % [facility] HemeAutoSS Monocytes/Leukocytes Auto (Bld) [Pure # fraction] 0.9 E9/L Normal 0.2 - 1.0 E9/L [facility]eAutoSS Neutrophils/100 WBC (Bld) 48.8 % Normal 36.0 - 75.0 % [facility]eAutoSS Neutrophils/Leukocyte s Auto (Bld) [Pure # fraction] 4.4 E9/L Normal 2.0 - 7.5 E9/L [facility] HEMATOLOGYOrdered By: Ariana Gupta on 07-12-2022 Erythrocyte distribution width (RBC) [Ratio] 13.6 % Normal 10.9 - 14.2 % [facility] Hematocrit (Bld) [Volume fraction] 35.6 % Normal 34.0 - 46.0 % [facility] Hemoglobin (Bld) [Mass/Vol] 12.5 g/dL Normal 12.0 - 16.0 gm/dL [facility] MCH (RBC) [Entitic mass] 28.7 pg Normal 27.0 - 34.0 pg [facility] MCHC (RBC) [Mass/Vol] 35.1 g/dL Normal 31.4 - 36.0 gm/dL [facility] MCV (RBC) [Entitic vol] 81.8 fL Normal 80.0 - 100.0 fL [facility] Platelet mean volume (Bld) [Entitic vol] 7.6 fL Normal 6.4 - 10.8 fL [facility]eAutoSS Platelets (Bld) [#/Vol] 262.0 E9/L Normal 150.0 - 500.0 E9/L [facility] RBC (Bld) [#/Vol] 4.4 E12/L Normal 4.3 - 5.9 E12/L [facility] WBC corrected for nucl RBC Auto (Bld) [#/Vol] 8.9 E9/L Normal 4.0 - 11.0 E9/L [facility] Hep Func Panelon 07-12-2022 Bilirubin.indirect [Mass or moles/Vol] UTC Abnormal 0.1-0.9 [facility] Comment on above: Result Comment: Resu lt verified by Discern Rule. Performed result UTC (Unable to Calculate) was sent as an Alpha code due the inability to calculate a valid numeric value. Performed By: #### 2 [id number], 8714244, 1399942, 5303260, 93871526, 7548943, [id number] #### [facility] [address] [place] [address]7042 Albumin [Mass/Vol] 4.0 g/dL Normal 3.3-5.0 [facility] Comment on above: Performed By: #### 2 574469, 1422077, 7941730, 8839858, [id number], 5479023, 3818462 #### [facility] [address] [place] [address] 18915 Albumin/Globulin (S) [Mass conc ratio] 1.3 Normal 1.1-2.2 [facility] Comment on above: Performed By: #### 2 669543, 8569646, 8108304, 0113823, 77096172, 7361467, 1352647 #### [facility] [address] [place] [address]648 ALP [Catalytic activity/Vol] 59 Int._Unit/L Normal 21-98 [facility] Comment on above: Performed By: #### 2 048521, 2198541, 6325749, 4376871, 88564428, 4732156, 0773279 #### [facility] [address] [place] [address] 53685 ALT No additional P-5'-P [Catalytic activity/Vol] 17 Int._Unit/L Normal 6-46 [facility] Comment on above: Performed By: #### 2 453478, 1792582, 8788677, 5381192, 95940435, 0137304, 5119589 #### [facility] [address] [place] [address] 83182 AST [Catalytic activity/Vol] 17 Int._Unit/L Normal 5-43 [facility] Comment on above: Performed By: #### 2 887474, 4957591, 9456698, 7473797, 64895560, 4224395, 1723716 #### [facility] [address] [place] [address] Bilirubin [Mass/Vol] 0.3 mg/dL Normal 0.0-1.1 [facility] Comment on above: Performed By: #### 2 141514, 2370409, 1260560, 9057701, 65406727, 1781899, 4830213 #### [facility] [address] [place] [address] Bilirubin.direct [Mass/Vol] mg/dL Normal 0.1-0.4 [facility] Comment on above: Performed By: #### 2 185720, 4570304, 6586190, 8285913, 43708030, 8924416, 9183444 #### [facility] [address] [place] [address] 67275 Globulin (S) [Mass/Vol] 3.1 g/dL Normal 1.4-4.0 [facility] Comment on above: Performed By: #### 2 364693, 3905834, 8583376, 9808205, 29140983, 6702858, 4890514 #### [facility] [address] [place] [address] 26749 Protein [Mass/Vol] 7.1 g/dL Normal 6.0-7.8 [facility] Comment on above: Performed By: #### 2 991233, 8850649, 3603796, 1872664, 21835481, 0574370, 9110289 #### [facility] [address] [place] [address]1938 Lipase Levelon 07-12-2022 Lipase [Catalytic activity/Vol] 35 U/L Normal 13-58 [facility] Comment on above: Performed By: #### 2 158430, 5225636, 8464508, 5365203, 81944691, 2980063, 1156727 #### [facility] [address] [place] [address] SEROLOGYOrdered By: Mignon Gupta on 07-12-2022 Beta hCG Ql Negative (07/12/22 4:02 AM) Normal [facility] Sero Troponin 0 Hr.on 07-12-2022 Troponin I.cardiac [Mass/Vol] ng/mL Low 10.10-27.10 [facility] Comment on above: Result Comment: The 95% CI (Confidence Interval) PPV (Positive Predictive Value) for myocardial infarction in females is 38 pg/mL, in males 51 pg/mL. The results should be used in conjunction with clinical conditions of myocardial infarction. (Access High Sensitivity Troponin I Instructions For Use, [employer] [place], March 2018) Performed By: #### 2 349243, 4877699, 5124382, 7149081, 57094745, 2672624, 7768686 #### [facility] [address] [place] [address] XR Chest Single Viewon 07-12 XR Chest Single View Exam Date/Time: 07/12/2022 04:15 EST Reason for Exam: Cough Report IMPRESSION: NO ACTIVE PULMONARY DISEASE. CLINICAL HISTORY: Cough SOB COMPARISON: NONE. FINDINGS: AP upright portable chest shows normal-sized heart and unremarkable bronchovascular markings. There is no pneumonic infiltrates or consolidation. Both costophrenic angles are sharp. FINAL REPORT Dictated: 07/12/2022 7:35 am Romie Hanson M.D. Signed (Electronic Signature): 07/12/2022 7:35 am Signed by: Romie Hanson M.D. Transcribed by: KG Technologist: SB Normal [facility] eGFRon 07-12-2022 GFR/1.73 sq M.predicted among blacks MDRD (S/P/Bld) [Vol rate/Area] mL/min/{1.73_m2} Normal >=59 [facility] Comment on above: Order Comment: Order added by Discern Expert. Result Comment: eGFR is race adjusted. AA=. Performed By: #### 2 206426, 9502215, 8036512, 5409437, 95410611, 5859514, 5769918 #### [facility] [address] [place] [address] GFR/1.73 sq M.predicted among non-blacks MDRD (S/P/Bld) [Vol rate/Area] mL/min/{1.73_m2} Normal >=59 [facility] Comment on above: Order Comment: Order added by Discern Expert. Result Comment: Electric Motor Tester emil kidney disease could be indicated at eGFR's of less than 60 mL/min/1.73m2. Kidney failure is indicated at less than 15 mL/min/1.73m2. Performed By: #### 2 219068, 4226667, 5254645, 7589595, 65212174, 6352358, 9848080 #### [facility] [address] [place] [address] CBC with Auto Differentialon 04-18-2022 Absolute Eos # 0.20 [facility] Absolute Lymph # 1.60 [facility] Absolute [place] # 0.60 [facility] Basophils (Bld) [#/Vol] 0.00 10*3/uL [facility] Basophils/100 WBC (Bld) 0 % 0 - 2 % [facility] Differential Type YES [facility] Eosinophils/100 WBC (Bld) 2 % 0 - 5 % [facility] Hematocrit (Bld) [Volume fraction] 38.2 % 36 - 46 % [facility] Hemoglobin (Bld) [Mass/Vol] 12.7 g/dL 12 - 16 g/dL [facility] Interpretation and review of laboratory results Abnormal [facility] Lymphocytes/100 WBC (Bld) 16 % 15 - 40 % [facility] MCH (RBC) [Entitic mass] 28.1 pg 26 - 34 pg [facility] MCHC (RBC) [Mass/Vol] 33.2 g/dL 31 - 37 g/dL [facility] MCV (RBC) [Entitic vol] 84.6 fL 80 - 100 fL [facility] Monocytes/100 WBC (Bld) 6 % 4 - 8 % [facility] Platelet distribution width (Bld) [Ratio] 13.3 % 12.1 - 15.2 % [facility] Platelets (Bld) [#/Vol] 294 10*3/uL [facility] RBC (Bld) [#/Vol] 4.52 10*6/uL 4 - 5.2 m/uL [facility] Segmented neutrophils/100 WBC (Bld) 76 % High 47 - 75 % [facility] Segs Absolute 7.60 High [facility] WBC (Bld) [#/Vol] 10.0 10*3/uL [facility] CBC with Diffon 04-18-2022 Abs. Basophil 0.00 k/uL Normal 0.0-0.2 [facility] Comment on above: Performed By: #### C DP, HCG, CP #### [facility] [address] [place] [address] Construction Laborer: Alfred Chirinos MD Abs.Neutrophil (Seg) 7.60 k/uL High 2.5-7.0 [facility] Comment on above: Performed By: #### C DP, HCG, CP #### [facility] [address] [place] [address] Construction Laborer: Alfred Chirinos MD Auto Diff Performed YES Normal [facility] Comment on above: Performed By: #### C DP, HCG, CP #### [facility] [address] [place] [address] Construction Laborer: Alfred Chirinos MD Basophils/100 WBC (Bld) 0 % Normal 0-2 [facility] Comment on above: Performed By: #### C DP, HCG, CP #### [facility] [address] [place] [address] Construction Laborer: Alfred Chirinos MD Eosinophils (Bld) [#/Vol] 0.20 10*3/uL Normal 0.0-0.4 [facility] Comment on above: Performed By: #### C DP, HCG, CP #### [facility] [address] [place] [phone] Construction Laborer: Alfred Chirinos MD Eosinophils/100 WBC (Bld) 2 % Normal 0-5 [facility] Comment on above: Performed By: #### C DP, HCG, CP #### [facility] [address] [place] [address] Construction Laborer: Alfred Chirinos MD Erythrocyte distribution width (RBC) [Ratio] 13.3 % Normal 12.1-15.2 [facility] Comment on above: Performed By: #### C DP, HCG, CP #### [facility] [address] [place] [phone] Construction Laborer: Alfred Chirinos MD Hematocrit (Bld) [Volume fraction] 38.2 % Normal 36-46 [facility] Comment on above: Performed By: #### C DP, HCG, CP #### [facility] [address] [place] [address] Construction Laborer: Alfred Chirinos MD Hemoglobin (Bld) [Mass/Vol] 12.7 g/dL Normal 12.0-16.0 [facility] Comment on above: Performed By: #### C DP, HCG, CP #### [facility] [address] [place] [address] Construction Laborer: Alfred Chirinos MD Lymphocytes (Bld) [#/Vol] 1.60 10*3/uL Normal 1.2-5.2 [facility] Comment on above: Performed By: #### C DP, HCG, CP #### [facility] [address] [place] [address] Construction Laborer: Alfred Chirinos MD Lymphocytes/100 WBC (Bld) 16 % Normal 15-40 [facility] Comment on above: Performed By: #### C DP, HCG, CP #### [facility] [address] [place] [address] Construction Laborer: Alfred Chirinos MD MCH (RBC) [Entitic mass] 28.1 pg Normal 26-34 [facility] Comment on above: Performed By: #### C DP, HCG, CP #### [facility] [address] [place] [phone] Construction Laborer: Alfred Chirinos MD MCHC (RBC) [Mass/Vol] 33.2 g/dL Normal 31-37 [facility] Comment on above: Performed By: #### C DP, HCG, CP #### [facility] [address] [place] [phone] Construction Laborer: Alfred Chirinos MD MCV (RBC) [Entitic vol] 84.6 fL Normal 80-100 [facility] Comment on above: Performed By: #### C DP, HCG, CP #### [facility] [address] [place] [address] Construction Laborer: Alfred Chirinos MD Monocytes (Bld) [#/Vol] 0.60 10*3/uL Normal 0.0-1.0 [facility] Comment on above: Performed By: #### C DP, HCG, CP #### [facility] [address] [place] [phone] Construction Laborer: Alfred Chirinos MD Monocytes/100 WBC (Bld) 6 % Normal 4-8 [facility] Comment on above: Performed By: #### C DP, HCG, CP #### [facility] [address] [place] [address] Construction Laborer: Alfred Chirinos MD Neutrophil (Seg) 76 % High 47-75 [facility] Comment on above: Performed By: #### C DP, HCG, CP #### [facility] [address] [place] [phone] Construction Laborer: Alfred Chirinos MD Platelets (Bld) [#/Vol] 294 10*3/uL Normal 140-450 [facility] Comment on above: Performed By: #### C DP, HCG, CP #### [facility] [address] [place] [address] Construction Laborer: Alfred Chirinos MD RBC (Bld) [#/Vol] 4.52 10*6/uL Normal 4.0-5.2 [facility] Comment on above: Performed By: #### C DP, HCG, CP #### [facility] [address] [place] [address] Construction Laborer: Alfred Chirinos MD WBC (Bld) [#/Vol] 10.0 10*3/uL Normal 4.5-13.5 [facility] Comment on above: Performed By: #### C DP, HCG, CP #### [facility] [address] [place] [address] Construction Laborer: Alfred Chirinos MD [facility] 04-18-2022 Albumin [Mass/Vol] 4.4 g/dL 3.5 - 5.2 g/dL [facility] ALP (Bld) [Catalytic activity/Vol] 93 U/L 35 - 104 U/L [facility] ALT [Catalytic activity/Vol] 17 U/L 5 - 33 U/L [facility] Anion gap [Moles/Vol] 8 mmol/L Low 9 - 17 mmol/L [facility] AST [Catalytic activity/Vol] 17 U/L NINF - 32 U/L [facility] Bilirubin [Mass/Vol] 0.20 mg/dL Low 0.3 - 1 .2 mg/dL [facility] Calcium [Mass/Vol] 9.5 mg/dL 8.6 - 10. 4 mg/dL [facility] Chloride [Moles/Vol] 106 mmol/L 98 - 10 7 mmol/L [facility] CO2 [Moles/Vol] 26 mmol/L 20 - 31 mmol/L [facility] Creatinine [Mass/Vol] 0.66 mg/dL 0.5 - 0.9 mg/dL [facility] Free PSA/Total PSA [Mass fraction] 6.9 g/dL 6.4 - 8.3 g/dL [facility] GFR >60 60 - PI NF mL/min [facility] GFR Non- >60 60 - PINF mL/min [facility] GFR/1.73 sq M.predicted MDRD (S/P/Bld) [Vol rate/Area] [facility] Comment on above: Average GFR for 20-2 9 years old: 116 mL/min/1.73sq m Chronic Kidney Disease: <60 mL/min/1.73sq m Kidney failure: <15 mL/min/1.73sq m eGFR calculated using average adult body mass. Additional eGFR calculator available at: http://www.[employer]/Athersys_crcl_2012.htm Glucose [Mass/Vol] 108 mg/dL High 70 - 99 mg/dL [facility] Interpretation and review of laboratory results Abnormal [facility] Potassium [Moles/Vol] 3.6 mmol/L Low 3.7 - 5.3 mmol/L [facility] Sodium [Moles/Vol] 140 mmol/L 135 - 144 mmol/L [facility] Urea nitrogen (BldV) [Mass/Vol] 5 mg/dL Low 6 - 20 mg/dL [facility] Urea nitrogen/Creatinine (Bld) [Mass ratio] 8 Low 9 - 20 [facility] Comp Metabolic Profon 2021 (cont.) Normal [facility] Comment on above: Result Comment: Aver age GFR for 20-29 years old: 116 mL/min/1.73sq m Chronic Kidney Disease: <60 mL/min/1.73sq m Kidney failure: <15 mL/min/1.73sq m eGFR calculated using average adult body mass. Additional eGFR calculator available at: http://www.[employer]/Athersys_crcl_2012.htm Performed By: #### C DP, HCG, CP #### [facility] [address] [place] [address] Construction Laborer: Alfred Chirinos MD Albumin [Mass/Vol] 4.4 g/dL Normal 3.5-5.2 [facility] Comment on above: Performed By: #### C DP, HCG, CP #### [facility] [address] [place], [place] [id number] Construction Laborer: Alfred Chirinos MD Alkaline Phos 93 U/L Normal 35-104 [facility] Comment on above: Performed By: #### C DP, HCG, CP #### [facility] [address] [place] [phone] Construction Laborer: Alfred Chriinos MD ALT [Catalytic activity/Vol] 17 U/L Normal 5-33 [facility] Comment on above: Performed By: #### C DP, HCG, CP #### [facility] [address] [place] [address] Construction Laborer: Alfred Chirinos MD Anion gap [Moles/Vol] 8 mmol/L Low 9-17 [facility] Comment on above: Performed By: #### C DP, HCG, CP #### [facility] [address] [place], [place] [id number] Construction Laborer: Alfred Chirinos MD AST [Catalytic activity/Vol] 17 U/L Normal <32 [facility] Comment on above: Performed By: #### C DP, HCG, CP #### [facility] [address] [place], [place] [phone] Construction Laborer: Alfred Chirinos MD Bilirubin [Mass/Vol] 0.20 mg/dL Low 0.30-1.20 [facility] Comment on above: Performed By: #### C DP, HCG, CP #### [facility] [address] [place] [address] Construction Laborer: Alfred Chirinos MD BUN/CRE Ratio 8 Low 9-20 [facility] Comment on above: Performed By: #### C DP, HCG, CP #### [facility] [address] [place], [place] [phone] Construction Laborer: Alfred Chirinos MD Calcium [Mass/Vol] 9.5 mg/dL Normal 8.6-10.4 [facility] Comment on above: Performed By: #### C DP, HCG, CP #### [facility] [address] [place], [place] [phone] Construction Laborer: Alfred Chirinos MD Chloride [Moles/Vol] 106 mmol/L Normal 98-107 [facility] Comment on above: Performed By: #### C DP, HCG, CP #### [facility] [address] [place] [address] Construction Laborer: Alfred Chirinos MD CO2 [Moles/Vol] 26 mmol/L Normal 20-31 [facility] Comment on above: Performed By: #### C DP, HCG, CP #### [facility] [address] [place] [phone] Construction Laborer: Alfred Chirinos MD Creatinine [Mass/Vol] 0.66 mg/dL Normal 0.50-0.90 [facility] Comment on above: Performed By: #### C DP, HCG, CP #### [facility] [address] [place], [place] [phone] Construction Laborer: Alfred Chirinos MD GFR, Amer >60 Normal >60 [facility] Comment on above: Performed By: #### C DP, HCG, CP #### [facility] [address] [place], [place] [phone] Construction Laborer: Alfred Chirinos MD GFR,non Amer >60 Normal >60 [facility] Comment on above: Performed By: #### C DP, HCG, CP #### [facility] [address] [place], [place] [phone] Construction Laborer: Alfred Chirinos MD Glucose [Mass/Vol] 108 mg/dL High 70-99 [facility] Comment on above: Performed By: #### C DP, HCG, CP #### [facility] [address] [place], [place] [phone] Construction Laborer: Alfred Chirinos MD Potassium [Moles/Vol] 3.6 mmol/L Low 3.7-5.3 [facility] Comment on above: Performed By: #### C DP, HCG, CP #### [facility] [address] [place] [address] Construction Laborer: Alfred Chirinos MD Protein [Mass/Vol] 6.9 g/dL Normal 6.4-8.3 [facility] Comment on above: Performed By: #### C DP, HCG, CP #### [facility] [address] [place] [address] Construction Laborer: Alfred Chirinos MD Sodium [Moles/Vol] 140 mmol/L Normal 135-144 [facility] Comment on above: Performed By: #### C DP, HCG, CP #### [facility] [address] [place], [place] [phone] Construction Laborer: Alfred Chirinos MD Urea nitrogen [Mass/Vol] 5 mg/dL Low 6-20 [facility] Comment on above: Performed By: #### C DP, HCG, CP #### [facility] [address] [place], [place] [phone] Construction Laborer: Alfred Chirinos MD HCG Qualitative, Serumon hCG Qual Negative NEGATIVE [facility] Comment on above: Specimens with hCG l evels near the threshold of the test (25 mIU/mL) may give a negative or indeterminate result. In such cases, another test should be performed with a new specimen in 48-72 hours. If early is suspected clinically in this setting, correlation with quantitative serum b-hCG level is suggested. [facility] has confirmed the use of plasma for this test. This has not been cleared or approved by the U.S. Food and Drug Administration. The FDA has determined that such clearance is not necessary. [facility] HCG Screen, Bloodon 04-18-20 22 HCG Screen, Blood Negative Normal NEG [facility] Comment on above: Result Comment: Spec imens with hCG levels near the threshold of the test (25 mIU/mL) may give a negative or indeterminate result. In such cases, another test should be performed with a new specimen in 48-72 hours. If early is suspected clinically in this setting, correlation with quantitative serum b-hCG level is suggested. [facility] has confirmed the use of plasma for this test. This has not been cleared or approved by the U.S. Food and Drug Administration. The FDA has determined that such clearance is not necessary. Performed By: #### C DP, HCG, CP #### [facility] [address] [place] [address] Construction Laborer: Alfred Chirinos MD Microscopic Urinalysison - [facility] Epithelial Cells UA 0 TO 2 /HPF [facility] RBC, UA 2 TO 5 [facility] WBC, UA NONE SEEN 0 /HPF [facility] Urinalysison 04-18-2022 Bilirubin Urine Negative NEGATIVE [facility] Color, UA Yellow Yellow [facility] Glucose, Ur Negative NEGATIVE [facility] Interpretation and review of laboratory results Abnormal [facility] Ketones Ql (U) Negative NEGATIVE [facility] Leukocyte esterase Test strip Ql (U) Negative NEGATIVE [facility] Nitrite, Urine Negative NEGATIVE [facility] pH, UA 8.0 5 - 8 [facility] Protein, UA Negative NEGATIVE [facility] Specific Taylor, UA 1.015 1.005 - 1.03 [facility] Turbidity UA Clear Clear [facility] Urinalysis Comments [facility] Urine Hgb 2+ Abnormal NEGATIVE [facility] Urobilinogen, Urine Normal Normal [facility] Urinalysis, Routineon 2021 Bilirubin, SemiQt,Ur Negative Normal NEG [facility] Comment on above: Performed By: #### B HCG #### [facility] [address] [facility] [place] [phone] Construction Laborer: Alfred Chirinos MD Blood, Urine 2+ Abnormal NEG [facility] Comment on above: Performed By: #### B HCG #### [facility] [address] [facility] [place] [phone] Construction Laborer: Alfred Cihrinos MD Clarity (U) Clear Normal CLEAR [facility] Comment on above: Performed By: #### B HCG #### [facility] [address] [place], [place] [phone] Construction Laborer: Alfred Chirinos MD Color (U) Yellow Normal YEL [facility] Comment on above: Performed By: #### B HCG #### [facility] [address] [place], [place] [id number] Construction Laborer: Alfred Chirinos MD Comment Normal [facility] Comment on above: Performed By: #### B HCG #### [facility] [address] [place], [place] [phone] Construction Laborer: Alfred Chirinos MD Glucose Ql (U) Negative Normal NEG [facility] Comment on above: Performed By: #### B HCG #### [facility] [address], [place] [phone] Construction Laborer: Alfred Chirinos MD Ketones Ql (U) Negative Normal NEG [facility] Comment on above: Performed By: #### B HCG #### [facility] [address] [facility] [place] [id number] Construction Laborer: Alfred Chirinos MD Leukocyte esterase Test strip Ql (U) Negative Normal NEG [facility] Comment on above: Performed By: #### B HCG #### [facility] [address] [place], [place] [phone] Construction Laborer: Alfred Chirinos MD Nitrite,Ur Negative Normal NEG [facility] Comment on above: Performed By: #### B HCG #### [facility] [address] [place], [place] [phone] Construction Laborer: Alfred Chirinos MD PH,Ur 8.0 Normal 5.0-8.0 [facility] Comment on above: Performed By: #### B HCG #### [facility] [address] [place], [place] [phone] Construction Laborer: Alfred Chirinos MD Protein Ql (U) Negative Normal NEG [facility] Comment on above: Performed By: #### B HCG #### [facility] [address] [place] [address] Construction Laborer: Alfred Chirinos MD Spec. Taylor,Ur 1.015 Normal 1.005-1.[address] [facility] Comment on above: Performed By: #### B HCG #### [facility] [address] [place], [place] [phone] Construction Laborer: Alfred Chirinos MD Urobilinogen,Ur Normal Normal NORM [facility] Comment on above: Performed By: #### B HCG #### [facility] [address] [place], [place] [phone] Construction Laborer: Alfred Chirinos MD Urinalysis,Microon 2 ----- Normal [facility] Comment on above: Performed By: #### B HCG #### [facility] [address] [place] [address] Construction Laborer: Alfred Chirinos MD Epithelial cells LM Ql (Urine sed) 0 TO 2 Normal [facility] Comment on above: Performed By: #### B HCG #### [facility] [address] [place], [place] [phone] Construction Laborer: Alfred Chirinos MD Urine RBC's 2 TO 5 Normal 0-2 [facility] Comment on above: Performed By: #### B HCG #### [facility] [address] [place] [address] Construction Laborer: Alfred Chirinos MD Urine WBC's NONE SEEN Normal 0 [facility] Comment on above: Performed By: #### B HCG #### [facility] [address] [place] [address] Construction Laborer: Alfred Chirinos MD PAP ACOG PANEL 2: 21 to 29on 04-13-2022 . . Normal [facility] Comment on above: Performed By: #### [id number] #### [facility] [address] [place] [address] Dr. Tasha Whalen Age Gdln ACOG Testing Comment [facility] Comment on above: Result Comment: <21 or >65 or no age provided Performed By: #### [id number] #### [facility] [address] [place] [address] Dr. Tasha Whalen DIAGNOSIS: Comment [facility] Comment on above: Result Comment: NEGA TIVE FOR INTRAEPITHELIAL LESION OR MALIGNANCY. Performed By: #### [id number] #### [facility] [address] [place] [address] Dr. Tasha Whalen Methodology: Comment [facility] Comment on above: Result Comment: This liquid based ThinPrep(R) pap test was screened with the use of an image guided system. Performed By: #### [id number] #### [facility] [address] [place] [address] Dr. Tasha Whalen Note: Comment [facility] Comment on above: Result Comment: The Pap smear is a screening test designed to aid in the detection of premalignant and malignant conditions of the uterine cervix. It is not a diagnostic procedure and should not be used as the sole means of detecting cervical cancer. Both false-positive and false-negative reports do occur. . Performed By: #### 4 [id number] #### [facility] [address] [place] [address] Dr. Tasha Whalen Performed by: Comment Normal [facility] Comment on above: Result Comment: Nancy Wooten, Assistant Office Manager (ASCP) Performed By: #### 4 [id number] #### [facility] [address] [place] [address] Dr. Tasha Whalen Specimen adequacy: Comment Normal [facility] Comment on above: Result Comment: Sati sfactory for evaluation. Endocervical and/or squamous metaplastic cells (endocervical component) are present. Performed By: #### [id number] #### [facility] [address] [place] [address] Dr. Tasha Whalen CHLAMYDIA/GONOCOCCUS CATRINA ( AB/URINE/PAPon 04-12-2022 Chlamydia trachomatis, CATRINA Negative Normal Negative [facility] Comment on above: Performed By: #### C T/NGNA #### [facility] [address] [place] [address] Dr. Tasha Whalen Neisseria gonorrhoeae, CATRINA Negative Normal Negative [facility] Comment on above: Performed By: #### C T/NGNA #### [facility] [address] [place] [address] Dr. Tasha Whalen VAGINITIS/VAGINOSIS DNA PROB Dell 04-11-2022 Dylan species Negative Normal Negative [facility] Comment on above: Performed By: #### V AGINT #### [facility] [address] [place] [address] Dr. Tasha Whalen Gardnerella vaginalis Negative Normal Negative [facility] Comment on above: Performed By: #### V AGINT #### [facility] [address] [place] [address] Dr. Tasha Whalen Trichomonas vaginalis Negative Normal Negative [facility] Comment on above: Performed By: #### V AGINT #### [facility] [address] [place] [address] Dr. Tasha Whalen PREG QUANT HCGon 02-15-2022 HCG QUANT <1 Normal [facility] Comment on above: Performed By: #### P REGQNT #### [facility] [address] [place] [address] Dr. Tasha Whalen HCG RANGE SEE BELOW Normal [facility] Comment on above: Result Comment: 5-50 0-1 WEEK 40-300 1-2 WEEKS 100-1,000 2-3 WEEKS 500-6,000 3-4 WEEKS 5,000-200,000 1-2 MONTHS 10,000-100,000 2-3 MONTHS 3,000-50,000 2ND TRIMESTER 1,000-50,000 3RD TRIMESTER Performed By: #### P REGQNT #### [facility] [address] [place] [address] Dr. Tasha Whalen Vital Signs Date Time Vital Sign Value Performing Clinician Faci lity 09-08-2023 11:05-0500 Body temperature 98.78 [degF] [facility] 09-08-2023 11:05-0500 Diastolic blood pressure 82 mm[Hg] Fercho [facility] 09-08-2023 11:05-0500 Heart rate 95 /min [facility] Ja[facility] 09-08-2023 11:05-0500 Respiratory rate 16 /min Fercho Addison [facility] 09-08-2023 11:05-0500 SaO2% (BldA) [Mass fraction] 98 % Fercho Jaime [facility] 09-08-2023 11:05-0500 Systolic blood pressure 131 mm[Hg] Fercho Jaime [facility] 06-05-2023 18:36-0400 Diastolic blood pressure 58 mm[Hg] Fercho Jaime [facility] 06-05-2023 18:36-0400 Heart rate 90 /min Fercho Jaime [facility] 06-05-2023 18:36-0400 Mean blood pressure 73 mm[Hg] Fercho Jaime [facility] 06-05-2023 18:36-0400 Respiratory rate 16 /min Fercho Addison [facility] 06-05-2023 18:36-0400 SaO2% (BldA) [Mass fraction] 99 % Fercho Addison [facility] 06-05-2023 18:36-0400 Systolic blood pressure 104 mm[Hg] Fercho Addison [facility] 06-05-2023 18:23-0400 Diastolic blood pressure 52 mm[Hg] Fercho Addison [facility] 06-05-2023 18:23-0400 Heart rate 82 /min Fercho Addison [facility] 06-05-2023 18:23-0400 Mean blood pressure 66 mm[Hg] Fercho Addison [facility] 06-05-2023 18:23-0400 Respiratory rate 14 /min Fer[facility] Add[facility] 06-05-2023 18:23-0400 SaO2% (BldA) [Mass fraction] 98 % Fercho Addison [facility] 06-05-2023 18:23-0400 Systolic blood pressure 94 mm[Hg] Fercho Addison [facility] 06-05-2023 17:31-0400 Diastolic blood pressure 60 mm[Hg] Fercho Addison [facility] 06-05-2023 17:31-0400 Heart rate 89 /min Fercho Addison [facility] 06-05-2023 17:31-0400 Mean blood pressure 71 mm[Hg] Fercho Addison [facility] 06-05-2023 17:31-0400 Respiratory rate 16 /min Fer[facility] Addison [facility] 06-05-2023 17:31-0400 SaO2% (BldA) [Mass fraction] 98 % Fer[facility] 06-05-2023 17:31-0400 Systolic blood pressure 93 mm[Hg] [facility] Ja[facility] 06-05-2023 15:48-0400 Body temperature 98.42 [degF] Fer[facility] Ja[facility] 06-05-2023 15:48-0400 Heart rate 97 /min Fercho Jaime [facility] 12-07-2022 03:06-0400 Body weight 72.1224 kg NOE CHRISTY . [facility] Comment on above: Performed By: #### AFPMAT #### [facility] [address] [place] [address] Dr. Tasha Whalen 11-25-2022 22:27-0400 Hourly Rounding Shawn Wilson [facility] Comment on above: Result Comment: pt. discharged off unit, ambulatory; RN offers to assist to ER entrance; pt. denies 11-25-2022 22:20-0400 Hourly Rounding Shawn Wilson [facility] Comment on above: Result Comment: discharge papers given, education provided about belly band, follow up with primary provider in 2-3 days, and taking Tylenol for pain management as needed; questions answered; papers signed; pt. to get up and get dressed, no grimace or physical symptoms of pain noted in patient while moving 11-25-2022 22:10-0400 Hourly Rounding Shawn Wilson [facility] Comment on above: Result Comment: RN checks in on patient following medication administration; pt. verbalizes that medication helped and belly band is helping; RN answers question about UA results with patient; no physical signs of pain noted in pt. at this time, no grimace; RN to d/c pt. per physician order 11-25-2022 22:10-0400 Promise to Return Shawn Littleten [facility] 11-25-2022 21:24-0400 Promise to Return Shawn Littleten [facility] 11-25-2022 20:47-0400 Blood Pressure Location Shawn Steve [facility] 11-25-2022 20:47-0400 Body temperature 98.24 [degF] Shawn Steve [facility] 11-25-2022 20:47-0400 Diastolic blood pressure 56 mm[Hg] Shawn Steve [facility] 11-25-2022 20:47-0400 Heart rate 74 /min Shawn Steve [facility] 11-25-2022 20:47-0400 Mean blood pressure 73 mm[Hg] Shawn Steve [facility] 11-25-2022 20:47-0400 Promise to Return Shawn Wilson [facility] 11-25-2022 20:47-0400 Respiratory rate 16 /min Shawn Littleten [facility] 11-25-2022 20:47-0400 Systolic blood pressure 108 mm[Hg] Shawn Steve [facility] 11-25-2022 18:45-0400 Blood Pressure Location Shawn Littleten [facility] 11-25-2022 18:45-0400 Body temperature 97.52 [degF] Shawn Steve [facility] 11-25-2022 18:45-0400 Diastolic blood pressure 59 mm[Hg] Shawn Steve [facility] 11-25-2022 18:45-0400 Heart rate 79 /min Shawn Wilson [facility] 11-25-2022 18:45-0400 Mean blood pressure 76 mm[Hg] Shawn Wilson [facility] 11-25-2022 18:45-0400 Respiratory rate 18 /min Shawn Wilson [facility] 11-25-2022 18:45-0400 Systolic blood pressure 110 mm[Hg] Shawn Wilson [facility] 09-30-2022 08:59-0500 Body height 175.3 cm Morgan Falk DO Work Phone: [facility] [employer] 09-30-2022 08:59-0500 Body mass index (BMI) [Ratio] 23.63 kg/m2 Morgan Falk DO Work Phone: [employer] 09-30-2022 08:59-0500 Body temperature 98.1 [degF] Morgan Falk DO Work Phone: [employer] 09-30-2022 08:59-0500 Body weight 72.58 kg Morgan Falk DO Work Phone: [facility] [employer] 09-30-2022 08:59-0500 Diastolic blood pressure 64 mm[Hg] Morgan Falk DO Work Phone: [employer] 09-30-2022 08:59-0500 Heart rate 78 /min Morgan Falk DO Work Phone: [employer] 09-30-2022 08:59-0500 Respiratory rate 20 /min Morgan Falk DO Work Phone: [employer] 09-30-2022 08:59-0500 SaO2% (BldA) [Mass fraction] 98 % Morgan Falk DO Work Phone: [employer] 09-30-2022 08:59-0500 Systolic blood pressure 112 mm[Hg] Morgan Falk DO Work Phone: [employer] 09-26-2022 13:23-0500 Body height 172.7 cm Nguyen Cha MD Work Phone: [employer] 09-26-2022 13:23-0500 Body mass index (BMI) [Ratio] 24.4 kg/m2 Nguyen Cha MD Work Phone: [employer] 09-26-2022 13:23-0500 Body temperature 98.01 [degF] Nguyen Cha MD Work Phone: [employer] 09-26-2022 13:23-0500 Body weight 72.8 kg Nguyen Cha MD Work Phone: [employer] 09-26-2022 13:23-0500 Diastolic blood pressure 69 mm[Hg] Nguyen Cha MD Work Phone: [employer] 09-26-2022 13:23-0500 Heart rate 82 /min Nguyen Cha MD Work Phone: [employer] 09-26-2022 13:23-0500 Respiratory rate 18 /min Nguyen Cha MD Work Phone: [employer] 09-26-2022 13:23-0500 SaO2% (BldA) [Mass fraction] 100 % Nguyen Cha MD Work Phone: [employer] 09-26-2022 13:23-0500 Systolic blood pressure 111 mm[Hg] Nguyen Cha MD Work Phone: [employer] 09-04-2022 20:05-0500 Body height 172.7 cm Tyron Guevara MD Work Phone: [employer] 09-04-2022 20:05-0500 Body mass index (BMI) [Ratio] 24.89 kg/m2 Tyron Guevara MD Work Phone: [employer] 09-04-2022 20:05-0500 Body temperature 99.9 [degF] Tyron Guevara MD Work Phone: [facility] 09-04-2022 20:05-0500 Body weight 74.25 kg Tyron Guevara MD Work Phone: [facility] 09-04-2022 20:05-0500 Diastolic blood pressure 72 mm[Hg] Tyron Guevara MD Work Phone: [facility] 09-04-2022 20:05-0500 Heart rate 74 /min Tyron Guevara MD Work Phone: [facility] 09-04-2022 20:05-0500 Respiratory rate 18 /min Tyron Guevara MD Work Phone: [facility] 09-04-2022 20:05-0500 SaO2% (BldA) [Mass fraction] 98 % Tyron Guevara MD Work Phone: [facility] 09-04-2022 20:05-0500 Systolic blood pressure 111 mm[Hg] Tyron Guevara MD Work Phone: [facility] 08-29-2022 01:32-0500 Hourly Rounding [facility] 08-29-2022 01:32-0500 Promise to Return [facility] 08-29-2022 00:48-0500 Hourly Rounding [facility] 08-29-2022 00:48-0500 Promise to Return [facility] 08-29-2022 00:17-0500 Diastolic blood pressure 51 mm[Hg] [facility] 08-29-2022 00:17-0500 Heart rate 72 /min [facility] 08-29-2022 00:17-0500 Mean blood pressure 69 mm[Hg] [facility] 08-29-2022 00:17-0500 Respiratory rate 16 /min [facility] 08-29-2022 00:17-0500 SaO2% (BldA) [Mass fraction] 99 % [facility] 08-29-2022 00:17-0500 Systolic blood pressure 105 mm[Hg] [facility] 08-28-2022 23:35-0500 Diastolic blood pressure 53 mm[Hg] [facility] 08-28-2022 23:35-0500 Heart rate 65 /min [facility] 08-28-2022 23:35-0500 Mean blood pressure 68 mm[Hg] [facility] 08-28-2022 23:35-0500 Respiratory rate 18 /min [facility] 08-28-2022 23:35-0500 SaO2% (BldA) [Mass fraction] 100 % [facility] 08-28-2022 23:35-0500 Systolic blood pressure 97 mm[Hg] [facility] 08-28-2022 23:30-0500 Hourly Rounding [facility] 08-28-2022 23:30-0500 Promise to Return [facility] 08-28-2022 22:45-0500 Diastolic blood pressure 55 mm[Hg] [facility] 08-28-2022 22:45-0500 Heart rate 62 /min [facility] 08-28-2022 22:45-0500 Mean blood pressure 69 mm[Hg] [facility] 08-28-2022 22:45-0500 Respiratory rate 20 /min [facility] 08-28-2022 22:45-0500 SaO2% (BldA) [Mass fraction] 93 % [facility] 08-28-2022 22:45-0500 Systolic blood pressure 98 mm[Hg] [facility] 08-28-2022 21:31-0500 Body temperature 97.88 [degF] [facility] 08-28-2022 21:31-0500 Heart rate 78 /min Alfredito Brennan [facility] 08-26-2022 11:02-0500 Body temperature 98.6 [degF] Kei Moore [facility] 08-26-2022 11:02-0500 Diastolic blood pressure 70 mm[Hg] Kei Moore [facility] 08-26-2022 11:02-0500 Heart rate 66 /min Kei Moore [facility] 08-26-2022 11:02-0500 Respiratory rate 16 /min Kei Moore [facility] 08-26-2022 11:02-0500 SaO2% (BldA) [Mass fraction] 96 % Kei Moore [facility] 08-26-2022 11:02-0500 Systolic blood pressure 115 mm[Hg] Kei Moore [facility] 08-24-2022 01:01-0500 Body height 172.7 cm Andrea Mitchell MD Work Phone: [facility] 08-24-2022 01:01-0500 Body mass index (BMI) [Ratio] 25.51 kg/m2 Andrea Mitchell MD Work Phone: [facility] 08-24-2022 01:01-0500 Body temperature 98.1 [degF] Andrea Mitchell MD [facility] 08-24-2022 01:01-0500 Body weight 76.11 kg Andrea Mitchell MD Work Phone: [facility] 08-24-2022 01:01-0500 Diastolic blood pressure 74 mm[Hg] Andrea Mitchell MD [facility] 08-24-2022 01:01-0500 Heart rate 82 /min Andrea Mitchell MD [email or web address] 08-24-2022 01:01-0500 Respiratory rate 18 /min Andrea Mitchell MD [email or web address] 08-24-2022 01:01-0500 SaO2% (BldA) [Mass fraction] 99 % Andrea Mitchell MD Work [email or web address] 08-24-2022 01:01-0500 Systolic blood pressure 119 mm[Hg] Andrea Mitchell MD Work [email or web address] 08-10-2022 00:13-0500 Body mass index (BMI) [Ratio] 25.7 kg/m2 Tyron Guevara MD Work [email or web address] 08-10-2022 00:13-0500 Body temperature 97.59 [degF] Tyron Guevara MD Work Phone[email or web address] 08-10-2022 00:13-0500 Body weight 76.66 kg Tyron Guevara MD Work [email or web address] 08-10-2022 00:13-0500 Diastolic blood pressure 70 mm[Hg] Tyron Guevara MD Work [email or web address] 08-10-2022 00:13-0500 Heart rate 97 /min Tyron Guevara MD Work [email or web address] 08-10-2022 00:13-0500 Respiratory rate 16 /min Tyron Guevara MD Work [email or web address] 08-10-2022 00:13-0500 SaO2% (BldA) [Mass fraction] 98 % Tyron Guevara MD Work Phone: [facility] [employer] 08-10-2022 00:13-0500 Systolic blood pressure 123 mm[Hg] Tyron Guevara MD Work Phone[facility] 08-06-2022 01:39-0500 Body height 172.7 cm Morgan Falk DO Work Phone[facility] 08-06-2022 01:39-0500 Body mass index (BMI) [Ratio] 25.39 kg/m2 Morgan Falk DO Work [facility] 08-06-2022 01:39-0500 Body temperature 97.81 [degF] Morgan Falk Work [facility] 08-06-2022 01:39-0500 Body weight 75.75 kg Morgan Falk DO Work Phone[facility] 08-06-2022 01:39-0500 Diastolic blood pressure 63 mm[Hg] Morgan Falk Work Phone[facility] 08-06-2022 01:39-0500 Heart rate 95 /min Morgan Falk DO Work Phone[facility] 08-06-2022 01:39-0500 Respiratory rate 18 /min Morgan Falk Work Phone[facility] 08-06-2022 01:39-0500 SaO2% (BldA) [Mass fraction] 98 % Morgan Falk Work Phone[facility] 08-06-2022 01:39-0500 Systolic blood pressure 116 mm[Hg] Morgan Falk Work Phone: [facility] 07-12-2022 05:06-0500 Heart rate 86 /min Kaylinn Dokken [facility] 07-12-2022 05:06-0500 Respiratory rate 11 /min Kaylinn Dokken [facility] 07-12-2022 05:06-0500 SaO2% (BldA) [Mass fraction] 97 % Kaylinn Dokken [facility] 07-12-2022 03:38-0500 Body temperature 97.52 [degF] Sissy Shah [facility] 07-12-2022 03:38-0500 Diastolic blood pressure 64 mm[Hg] Jenan Alyssa [facility] 07-12-2022 03:38-0500 Heart rate 94 /min Sissy Shah [facility] 07-12-2022 03:38-0500 Respiratory rate 20 /min Sissy Shah [facility] 07-12-2022 03:38-0500 SaO2% (BldA) [Mass fraction] 98 % Sissy Shah [facility] 07-12-2022 03:38-0500 Systolic blood pressure 125 mm[Hg] Sissy Shah [facility] 07-01-2022 14:43-0500 Diastolic blood pressure 67 mm[Hg] Susu Del Rio MD Work Phone: [employer] 07-01-2022 14:43-0500 Systolic blood pressure 103 mm[Hg] Susu Del Rio MD Work Phone: [employer] 07-01-2022 14:19-0500 Body height 172.7 cm Susu Del Rio MD Work Phone: [employer] 07-01-2022 14:19-0500 Body mass index (BMI) [Ratio] 24.63 kg/m2 Susu Del Rio MD Work Phone: [employer] 07-01-2022 14:19-0500 Body temperature 97.3 [degF] Susu Del Rio MD Work Phone: [employer] 07-01-2022 14:19-0500 Body weight 73.48 kg Susu Del Rio MD Work Phone: [employer] 07-01-2022 14:19-0500 Heart rate 82 /min Susu Del Rio MD Work Phone: [employer] 07-01-2022 14:19-0500 Respiratory rate 16 /min Susu Del Rio MD Work Phone: [employer] 07-01-2022 14:19-0500 SaO2% (BldA) [Mass fraction] 99 % Susu Del Rio MD Work Phone: [employer] 04-18-2022 15:20-0400 Body mass index (BMI) [Ratio] 27.06 kg/m2 Tyron Guevara MD Work Phone: [employer] 04-18-2022 15:20-0400 Body temperature 98.2 [degF] Tyorn Guevara MD Work Phone: [employer] 04-18-2022 15:20-0400 Body weight 78.38 kg Tyron Guevara MD Work Phone: [employer] 04-18-2022 15:20-0400 Diastolic blood pressure 75 mm[Hg] Tyron Guevara MD Work Phone: [employer] 04-18-2022 15:20-0400 Heart rate 76 /min Tyron Guevara MD Work Phone: [employer] 04-18-2022 15:20-0400 Respiratory rate 16 /min Tyron Guevara MD Work Phone: [employer] 04-18-2022 15:20-0400 SaO2% (BldA) [Mass fraction] 98 % Tyron Guevara MD Work Phone: [employer] 04-18-2022 15:20-0400 Systolic blood pressure 119 mm[Hg] Tyron Guevara MD Work Phone: [employer] 07-06-2022 15:55-0400 Body height 170.2 cm Josemanuel Ibarra MD Work Phone: [employer] 02-27-2022 15:55-0400 Body mass index (BMI) [Ratio] 28.61 kg/m2 Josemanuel Ibarra MD Work Phone: [employer] 02-27-2022 15:55-0400 Body weight 82.87 kg Josemanuel Ibarra MD Work Phone: [employer] 02-27-2022 15:50-0400 Body temperature 98.1 [degF] Josemanuel Ibarra MD Work Phone: [employer] 02-27-2022 15:50-0400 Diastolic blood pressure 76 mm[Hg] Josemanuel Ibarra MD Work Phone: [employer] 02-27-2022 15:50-0400 Heart rate 71 /min Josemanuel Ibarra MD Work Phone: [employer] 02-27-2022 15:50-0400 Respiratory rate 18 /min Josemanuel Ibarra MD Work Phone: [employer] 02-27-2022 15:50-0400 SaO2% (BldA) [Mass fraction] 98 % Josemanuel Ibarra MD Work Phone: [employer] 02-27-2022 15:50-0400 Systolic blood pressure 135 mm[Hg] Josemanuel Ibarra MD Work Phone: [employer] 02-08-2022 19:11-0400 Body height 170.2 cm Josemanuel Ibarra MD Work Phone: [employer] 02-08-2022 19:11-0400 Body mass index (BMI) [Ratio] 28.93 kg/m2 Josemanuel Ibarra MD Work Phone: [employer] 02-08-2022 19:11-0400 Body temperature 98.6 [degF] Josemanuel Ibarra MD Work Phone: [employer] 02-08-2022 19:11-0400 Body weight 83.78 kg Josemanuel Ibarra MD Work Phone: [employer] 02-08-2022 19:11-0400 Diastolic blood pressure 76 mm[Hg] Josemanuel Ibarra MD Work Phone: [employer] 02-08-2022 19:11-0400 Heart rate 85 /min Josemanuel Ibarra MD Work Phone: [employer] 02-08-2022 19:11-0400 Respiratory rate 18 /min Josemanuel Ibarra MD Work Phone: [employer] 02-08-2022 19:11-0400 SaO2% (BldA) [Mass fraction] 99 % Josemanuel Ibarra MD Work Phone: [employer] 02-08-2022 19:11-0400 Systolic blood pressure 124 mm[Hg] Josemanuel Ibarra MD Work Phone: [employer] Encounters Encounter Date Encounter Type Care Provider Facility Start: 10-16-2023 End: 10-16-2023 ambulatory JULIUS CROCKETT Not Available Start: 09-08-2023 End: 09-08-2023 Emergency department patient visit Fercho Jaime [facility] Start: 06-05-2023 End: 06-05-2023 Emergency department patient visit Fercho Jaime [place] [place]: 06-05-2023 End: 06-05-2023 Emergency department patient visit Fercho Jaime [facility] Start: 04-05-2023 End: 04-05-2023 Emergency department patient visit DELFIN Kellogg [facility] Start: 03-23-2023 End: 03-24-2023 Emergency department patient visit MORGAN FALK [facility] Start: 01-03-2023 End: 01-04-2023 ambulatory NOE HARRISON [facility] Start: 12-05-2022 End: 12-06-[address] JULIUS CROCKETT . Facility:[facility] Start: 12-05-2022 End: 12-06-2022 ambulatory NOE HARRISON . Facility: Start: 11-26-2022 End: 12-23-2022 Pre-admission assessment Shawn Bhargavi Steve [facility] Start: 11-25-2022 End: 11-26-2022 ambulatory Shawn Burk Steve [place] Start: 11-25-2022 End: 11-25-2022 OB Triage Shawn Burk Steve [facility] Start: 11-07-2022 End: 11-07-[address] JULIUS CROCKETT . Facility: Start: 11-07-2022 End: 11-07-2022 ambulatory NOE HARRISON . Facility: Start: 10-04-2022 End: 10-05-[address] JULIUS CROCKETT . Facility: Start: 10-04-2022 End: 10-05-[address] DELFIN URBANO . Facility: Start: 09-30-2022 Emergency department patient visit MORGAN FALK [facility] Start: 09-30-2022 End: 09-30-2022 Emergency department patient visit Morgan Falk DO Work Phone: [facility] Comment on above: Nausea and vomiting during (Primary Dx) Start: 09-26-2022 Emergency department patient visit NGUYEN CHA [facility] Start: 09-26-2022 End: 09-26-2022 Emergency department patient visit Nguyen Cha MD Work Phone: [facility] Comment on above: Cellulitis of right upper extremity (Primary Dx) Start: 09-20-2022 End: 09-21-2022 ambulatory ALFRED BERGERON Facility:[facility] Start: 09-08-2022 End: 09-08-2022 Emergency department patient visit DO Sissy Shah [place] Start: 09-04-2022 End: 09-04-2022 Emergency department patient visit DELFIN Kellogg [facility] Start: 09-04-2022 End: 09-04-2022 Emergency department patient visit Tyron Guevara MD Work Phone: [facility] Comment on above: Vomiting of pregnanc y, antepartum (Primary Dx); Dehydration during Start: 09-02-2022 End: 09-02-2022 Emergency department patient visit Coleman Ludwig [place] Start: 08-28-2022 End: 08-29-2022 Emergency department patient visit Alfredito Brennan [place] Start: 08-28-2022 End: 08-29-2022 Emergency department patient visit [facility] Natalya [facility] Start: 08-26-2022 End: 08-26-2022 Emergency department patient visit Kei Moore [place] Start: 08-26-2022 End: 08-26-2022 Emergency department patient visit Kei Moore [facility] Start: 08-24-2022 End: 08-24-2022 Emergency department patient visit [facility] Start: 08-24-2022 End: 08-24-2022 Emergency department patient visit Andrea Mitchell MD Work Phone: [facility] Comment on above: Hyperemesis gravidar um (Primary Dx); Dehydration Start: 08-12-2022 End: 08-13-2022 ambulatory TYRON GUEVARA [facility] Start: 08-10-2022 End: 08-10-2022 Emergency department patient visit TYRON GUEVARA [facility] Start: 08-10-2022 End: 08-10-2022 Emergency department patient visit Tyron Guevara MD Work Phone: [facility] Comment on above: Abdominal pain durin g in first trimester (Primary Dx); Nausea and vomiting during Start: 08-06-2022 Emergency department patient visit MORGAN FALK [facility] Start: 08-06-2022 End: 08-06-2022 Emergency department patient visit Morgan Falk DO Work Phone: [facility] Comment on above: Morning sickness (Pr imary Dx) Start: 07-23-2022 End: 07-23-2022 Emergency department patient visit DELFIN Kellogg [facility] Start: 07-12-2022 End: 07-12-2022 Emergency department patient visit DO Sissy Shah [place] Start: 07-12-2022 End: 07-12-2022 Emergency department patient visit Adelinereina Erica Alyssa [facility] Start: 07-01-2022 End: 07-01-2022 Emergency department patient visit DELFIN Kellogg [facility] Start: 07-01-2022 End: 07-01-2022 Emergency department patient visit Susu Del Rio MD Work Phone: [facility] Comment on above: Pain, dental (Primar y Dx); History of tooth extraction, unspecified edentulism class Start: 04-18-2022 End: 04-18-2022 Emergency department patient visit TYRON GUEVARA [facility] Start: 04-18-2022 End: 04-18-2022 Emergency department patient visit Tyron Guevara MD Work Phone: [facility] Comment on above: Abdominal cramping ( Primary Dx); Negative test Start: 04-09-2022 End: 04-09-2022 ambulatory LAURA GONZALEZ Facility:[facility] Start: 02-27-2022 End: 02-27-2022 Emergency department patient visit Josemanuel Ibarra MD Work Phone: [facility] Comment on above: Pain, dental (Primar y Dx) Start: 02-15-2022 End: 02-16-[address] DELFIN URBANO . Facility:[facility] Start: 02-08-2022 End: 02-08-2022 Emergency department patient visit Josemanuel Ibarra MD Work Phone: [facility] Comment on above: Non-intractable vomi ting with nausea, unspecified vomiting type (Primary Dx) Start: 06-02-2017 End: 06-02-2017 Emergency department patient visit NOE LIMA [facility] Procedures Date Procedure Procedure Detail Performing Clinician Start: 09-04-2022 Drug tst prsmv instr mnt chem analyzers pr date Tyron Guevara MD Work Phone: Start: 09-04-2022 Urnls dip stick/tabl et rgnt auto w/o microscopy Tyron Guevara MD Work Phone: Start: 09-04-2022 Comprehensive metabo lic panel Tyron Guevara MD Work Phone: Start: 08-24-2022 Urnls dip stick/tabl et rgnt auto w/o microscopy Andrea Mitchell MD Work Phone: Start: 08-24-2022 End: 08-24-2022 Comprehensive metabolic panel Andrea Mitchell MD Work Phone: Start: 08-10-2022 Comprehensive metabo lic panel Tyron Guevara MD Work Phone: Start: 08-10-2022 Urnls dip stick/tabl et rgnt auto w/o microscopy Tyron Guevara MD Work Phone: Start: 04-18-2022 Urinalysis microscop ic only Tyron Guevara MD Work Phone: Start: 04-18-2022 Urnls dip stick/tabl et rgnt auto w/o microscopy Tyron Guevara MD Work Phone: Start: 04-18-2022 Comprehensive metabo lic panel Tyron Guevara MD Work Phone: Plan of Treatment Date Care Activity Detail Author Start: 03-18-2024 DTaP/Tdap/Td vaccine (6 - Td or Tdap) DTaP/Tdap/Td vaccine (6 - Td or Tdap) [facility] Start: 08-12-2022 End: 08-10-2023 hCG, Quantitative, hCG, Quantitative, Lab Routine Abdominal pain during in first trimester Expected: 08/12/2022, Expires: 08/10/2023 [facility] [employer] Phone: Comment on above: Expected: 08/12/2022 , Expires: 08/10/2023 Start: 2022 Screening for malign ant neoplasm of cervix [email or web address] Start: 04-25-2022 Influenza vaccination B [facility] [employer] Start: 03-25-2022 Influenza vaccination Flu vaccine (# 1) [facility] [employer] Start: 2019 Hepatitis C screening Hepatitis C sc reen [facility] [employer] Start: 2017 Screening for Chlamy brian trachomatis [facility] [employer] Start: 2016 HIV screening HIV screen [facility] [employer] Start: 2013 Depression Screen Depression Screen [facility] [employer] Start: 2006 COVID-19 Vaccine (1) COVID-19 Vaccin e (1) [email or web address] Start: 01-06-2002 COVID-19 Vaccine (#1) COVID-19 Vacci ne (#1) [facility] [employer] End: 08-10-2022 US OB TRANSVAGINAL US OB TRANSVAGINAL Imaging STAT Once for 1 Occurrences starting 08/10/2022 until 08/10/2022 [facility] [employer] Phone: Comment on above: Once for 1 Occurrenc es starting 08/10/2022 until 08/10/2022 US OB TRANSVAGINAL US OB TRANSVA GINAL Imaging STAT 08/10/2022 1:21 AM EST [employer] Work Phone: Payers Date Payer Category Payer Unknown [id number] [id number] [id number] 2001 Unknown [id number] 2.16.84 [id number] 2001 Unknown [id number] [id number] 2001 Unknown [id number] 2.16.84 0.1.808598.3.579.2.593 2001 Unknown [id number] 2.16.84 0.1.679590.3.579.2.593 2001 Unknown [id number] 2.16.84 0.1.022201.3.579.2.593 2001 Unknown [id number] 2.16.84 0.1.062683.3.579.2.593 2001 Unknown [id number] 2.16.84 0.1.516345.3.579.2.593 2001 Unknown [id number] 2.16.84 0.1.583331.3.579.2.593 2001 Unknown [id number] 2.16.84 0.1.924985.3.579.2.593 2001 Unknown [id number] 2.16.8 40.1.756886.3.579.2.174 2001 Unknown [id number] 2.16.8 40.1.663351.3.579.2.174 2001 Unknown [id number] 2.16.8 40.1.313973.3.579.2.174 2001 Unknown [id number] 2.16.8 40.1.780851.3.579.2.174 2001 Unknown [id number] 2.16.8 40.1.053061.3.579.2.174 2001 Unknown [id number] 2.16.8 40.1.035514.3.579.2.174 2001 Unknown [id number] 2.16.8 40.1.694768.3.579.2.174 2001 Unknown [id number] 2.16.8 40.1.711412.3.579.2.174 2001 Unknown [id number] 2.16.8 40.1.474858.3.579.2.174 2001 Unknown [id number] 2.16.8 40.1.606723.3.579.2.174 2001 Unknown [id number] 2.16.8 40.1.237419.3.579.2.174 2001 Unknown [id number] 2.16.8 40.1.777169.3.579.2.174 2001 Unknown [id number] 2.16.8 40.1.293692.3.579.2.173 2001 Unknown [id number] 2.16.8 40.1.576174.3.579.2.727 2001 Unknown [id number] 2.16.8 40.1.433557.3.579.2.727 2001 Unknown [id number] 2.16.8 40.1.918889.3.579.2.727 2001 Unknown [id number] 2.16.8 40.1.267280.3.579.2.727 2001 Unknown [id number] 2.16.8 40.1.355864.3.579.2.727 2001 Unknown [id number] 2.16.8 40.1.242432.3.579.2.727 2001 Unknown [id number] 2.16.8 40.1.846491.3.579.2.727 2001 Unknown [id number] 2.16.84 0.1.865215.3.579.2.1259 1959 Self-pay 1959 Unknown [id number] 1. 2.840.474231.1.13.239.2.7.3.889632.315 Unknown [id number] 2.16.84 0.1.219557.3.579.2.593 Social History Date Type Detail Facility Start: 06-02-2017 End: 07-01-2022 Tobacco smoking status [facility] Never smoked tobacco [facility] Phone: Start: 06-02-2017 End: 07-01-2022 Tobacco use and exposure Smokeless tobacco non-user [employer] Phone: Start: 02-08-2022 End: 09-30-2022 Alcohol intake Current non-drinker of alcohol (finding) [facility] Phone: Start: 02-08-2022 End: 09-30-2022 History SDOH Alcohol Frequency 1 [employer] Phone: Start: 2001 Sex Assigned At Not on file B ON [employer] Phone: Start: 01-29-2022 End: 09-30-2022 Exposure to SARS-CoV-2 (event) Not sure [facility] Phone: Start: 07-01-2022 End: 09-30-2022 History SDOH Alcohol Std Drinks 0 [facility] Phone: Tobacco Household tobacc o concerns: Yes. [facility] Comment on above: denies Tobacco smoking status No Smokin g Status Entered [facility] Sex Assigned At Female [facility] Start: 07-25-2022 [employer] Phone: Start: 09-08-2023 Tobacco smoking status Ex-smoker (fi nding) [facility] Comment on above: hx of smoking quit i n 2021 Functional Status Date Assessment Result Facility 09-08-2023 Functional Status N/A [facility] 06-05-2023 Functional Status N/A [facility] 11-25-2022 Functional Status N/A [facility] 08-28-2022 Functional Status N/A [facility] 08-26-2022 Functional Status N/A [facility] 07-12-2022 Functional Status Yes [facility] Clinical Notes 07-12-2022 to 09-08-2023 Note Date & Type Note Facility 09-08-2023 Evaluation + Plan note Extrac charito from: Title:ED Note Author:Eagle Hawk PA-C te:09/08/23 Bronchitis (J40: Bronchitis, not specified as acute or chronic) Orders: brompheniramine/dextromethorphan/PSE, 10 mL, Oral, QID for cough and congestion for 7 day(s), 280 mL, Refill(s) 0, Tellja #16, 175, cm, 09/08/23 11:11:00 EST, Height/Length Dosing, 79.5, kg, 09/08/23 11:11:00 EST, Weight Dosing XR Chest 2 Views [facility]01-15-2024 Hospital Discharge instructions Patient Education 09/08/2023 11:44:21 Acute Bronchitis, Adult Acute Bronchitis, Adult Acute bronchitis is sudden inflammation of the main airways (bronchi) that come off the windpipe (trachea) in the lungs. The swelling causes the airways to get smaller and make more mucus than normal. This can make it hard to breathe and can cause coughing or noisy breathing (wheezing). Acute bronchitis may last several weeks. The cough may last longer. Allergies, asthma, and exposureto smoke may make the condition worse. What are the causes? This condition can be caused by germs and by substances that irritate the lungs, including: Cold and flu viruses. The most common cause of this condition is the virus that causes the common cold. Bacteria. This is less common. Breathing in substances that irritate the lungs, including: ?Smoke from cigarettes and other forms of tobacco. ?Dust and pollen. ?Fumes from household cleaning products, gases, or burned fuel. ?Indoor or outdoor air pollution. What increases the risk? The following factors may make you more likely to develop this condition: A weak body's defense system, also called the immune system. A condition that affects your lungs and breathing, such as asthma. What are the signs or symptoms? Common symptoms of this condition include: Coughing. This may bring up clear, yellow, or green mucus from your lungs (sputum). Wheezing. Runny or stuffy nose. Having too much mucus in your lungs (chest congestion). Shortness of breath. Aches and pains, including sore throat or chest. How is this diagnosed? This condition is usually diagnosed based on: Your symptoms and medical history. A physical exam. You may also have other tests, including tests to rule out other conditions, such as pneumonia. These tests include: A test of lung function. Test of a mucus sample to look for the presence of bacteria. Tests to check the oxygen level in your blood. Blood tests. Chest X-ray. How is this treated? Most cases of acute bronchitis clear up over time without treatment. Your health care provider may recommend: Drinking more fluids to help thin your mucus so it is easier to cough up. Taking inhaled medicine (inhaler) to improve air flow in and out of your lungs. Using a vaporizer or a humidifier. These are machines that add water to the air to help you breathebetter. Taking a medicine that thins mucus and clears congestion (expectorant). Taking a medicine that prevents or stops coughing (cough suppressant). It is not common to take an antibiotic medicine for this condition. Follow these instructions at home: Take zqmj-bzh-iapspoa and prescription medicines only as told by your health care provider. Use an inhaler, vaporizer, or humidifier as told by your health care provider. Take two teaspoons (10 mL) of honey at bedtime to lessen coughing at night. Drink enough fluid to keep your urine pale yellow. Do not use any products that contain nicotine or tobacco. These products include cigarettes, chewing tobacco, and vaping devices, such as e-cigarettes. If you need help quitting, ask your health careprovider. Get plenty of rest. Return to your normal activities as told by your health care provider. Ask your health care provider what activities are safe for you. Keep all follow-up visits. This is important. How is this prevented? To lower your risk of getting this condition again: Wash your hands often with soap and water for at least 20 seconds. If soap and water are not available, use hand hand decorator. Avoid contact with people who have cold symptoms. Try not to touch your mouth, nose, or eyes with your hands. Avoid breathing in smoke or chemical fumes. Breathing smoke or chemical fumes will make your condition worse. Get the flu shot every year. Contact a health care provider if: Your symptoms do not improve after 2 weeks. You have trouble coughing up the mucus. Your cough keeps you awake at night. You have a fever. Get help right away if you: Cough up blood. Feel pain in your chest. Have severe shortness of breath. Faint or keep feeling like you are going to faint. Have a severe headache. Have a fever or chills that get worse. These symptoms may represent a serious problem that is an emergency. Do not wait to see if the symptoms will go away. Get medical help right away. Call your local emergency services (911 in the [place] Do not drive yourself to the hospital. Summary Acute bronchitis is inflammation of the main airways (bronchi) that come off the windpipe (trachea)in the lungs. The swelling causes the airways to get smaller and make more mucus than normal. Drinking more fluids can help thin your mucus so it is easier to cough up. Take hpnq-sjm-ksvaear and prescription medicines only as told by your health care provider. Do not use any products that contain nicotine or tobacco. These products include cigarettes, chewing tobacco, and vaping devices, such as e-cigarettes. If you need help quitting, ask your health careprovider. Contact a health care provider if your symptoms do not improve after 2 weeks. This information is not intended to replace advice given to you by your health care provider. Make sure you discuss any questions you have with your health care provider. Document Revised: 11/21/2022 Document Reviewed: 12/12/2021 Bundle Patient Education 2022 [employer]. Follow Up Care 09/08/2023 11:03:42 With:Delfin Urbano Address: [address] [place], [place] [id number] Business (1) When:09/11/2023 11:37:37 [facility]10-12-2023 Hospital Discharge instructions Patient Education 06/05/2023 18:18:00 General Headache Without Cause General Headache Without Cause A headache is pain or discomfort felt around the head or neck area. There are many causes and typesof headaches. A few common types include: Tension headaches. Migraine headaches. Cluster headaches. Chronic daily headaches. Sometimes, the specific cause of a headache may not be found. Follow these instructions at home: Watch your condition for any changes. Let your health care provider know about them. Take these steps to help with your condition: Managing pain Take rhgc-gqn-daugwsn and prescription medicines only as told by your health care provider. Treatment may include medicines for pain that are taken by mouth or applied to the skin. Lie down in a dark, quiet room when you have a headache. Keep lights dim if bright lights bother you or make your headaches worse. If directed, put ice on your head and neck area: ?Put ice in a plastic bag. ?Place a towel between your skin and the bag. ?Leave the ice on for 20 minutes, 2 3 times per day. ?Remove the ice if your skin turns bright red. This is very important. If you cannot feel pain, heat, or cold, you have a greater risk of damage to the area. If directed, apply heat to the affected area. Use the heat source that your health care provider recommends, such as a moist heat pack or a heating pad. ?Place a towel between your skin and the heat source. ?Leave the heat on for 20 30 minutes. ?Remove the heat if your skin turns bright red. This is especially important if you are unable to feel pain, heat, or cold. You have a greater risk of getting burned. Eating and drinking Eat meals on a regular schedule. If you drink alcohol: ?Limit how much you have to: ?0 1 drink a day for women who are not . ? 0 2 drinks a day for men. ?Know how much alcohol is in a drink. In the [place] one drink equals one 12 oz bottle of beer (355 mL), one 5 oz glass of wine (148 mL), or one 1 oz glass of hard liquor (44 mL). Stop drinking caffeine, or decrease the amount of caffeine you drink. Drink enough fluid to keep your urine pale yellow. General instructions Keep a headache journal to help find out what may trigger your headaches. For example, write down: ?What you eat and drink. ?How much sleep you get. ?Any change to your diet or medicines. Try massage or other relaxation techniques. Limit stress. Sit up straight, and do not tense your muscles. Do not use any products that contain nicotine or tobacco. These products include cigarettes, chewing tobacco, and vaping devices, such as e-cigarettes. If you need help quitting, ask your health careprovider. Exercise regularly as told by your health care provider. Sleep on a regular schedule. Get 7 9 hours of sleep each night, or the amount recommended by your health care provider. Keep all follow-up visits. This is important. Contact a health care provider if: Medicine does not help your symptoms. You have a headache that is different from your usual headache. You have nausea or you vomit. You have a fever. Get help right away if: Your headache: ?Becomes severe quickly. ?Gets worse after moderate to intense physical activity. You have any of these symptoms: ?Repeated vomiting. ?Pain or stiffness in your neck. ?Changes to your vision. ?Pain in an eye or ear. ?Problems with speech. ?Muscular weakness or loss of muscle control. ?Loss of balance or coordination. You feel faint or pass out. You have confusion. You have a seizure. These symptoms may represent a serious problem that is an emergency. Do not wait to see if the symptoms will go away. Get medical help right away. Call your local emergency services (911 in the [place] Do not drive yourself to the hospital. Summary A headache is pain or discomfort felt around the head or neck area. There are many causes and types of headaches. In some cases, the cause may not be found. Keep a headache journal to help find out what may trigger your headaches. Watch your condition for any changes. Let your health care provider know about them. Contact a health care provider if you have a headache that is different from the usual headache, orif your symptoms are not helped by medicine. Get help right away if your headache becomes severe, you vomit, you have a loss of vision, you loseyour balance, or you have a seizure. This information is not intended to replace advice given to you by your health care provider. Make sure you discuss any questions you have with your health care provider. Document Revised: 01/09/2022 Document Reviewed: 01/09/2022 Bundle Patient Education 2022 [employer]. Follow Up Care 06/05/2023 15:22:25 With:Delfin Urbano Address: [address] [place] [phone] Business (1) When:06/08/2023 18:17:47 Comments:Call the office of your primary care doctor to arrange for follow-up within the above-stated timeframe. Follow-up with your primary care doctor about this ED visit. You should review your labs, imaging, and diagnoses from this ED visit with your primary care physician. If you were prescribed medications you should discuss possible side-effects and drug interactions with your pharmacist. Call 911 or go to the nearest Emergency Department if you develop any new or worsening symptoms. [facility]10-12-2023 Evaluation + Plan noteExtracted from: Title:ED Note Author:Víctor Lind PA-C Benji e:06/05/23 Headache (R51.9: Headache, u nspecified) Nauseous (R11.0: Nausea) Orders: diphenhydrAMINE, 25 mg = 0.5 mL, Injection, IV Push, Once, Stop date 06/05/23 16:28:00 EDT, STAT, Start date 06/05/23 16:28:00 EDT, 06/05/23 16:28:00 EDT metoclopramide, 10 mg = 2 mL, Injection, IV Push, Once, Stop date 06/05/23 16:28:00 EDT, STAT, Start date 06/05/23 16:28:00 EDT, 06/05/23 16:28:00 EDT ondansetron, 4 mg = 2 mL, Injection, IV Push, Once, Stop date 06/05/23 16:28:00 EDT, STAT, Start date 06/05/23 16:28:00 EDT, 06/05/23 16:28:00 EDT Automated Diff Basic Metabolic Panel CBC w/ Auto Diff CT Head or Brain w/o Contrast eGFR Influenza A&B Ag [place] [place] Beta Hcg Qual [facility]04-04-2023 NoteThe following Patient Education Materials have been given to the patient: [facility] Dis[facility] instructions Patient Education 11/25/2022 22:14:49 Round Ligament Pain Round Ligament Pain The round ligament is a cord of muscle and tissue that helps support the uterus. It can become a source of pain during if it becomes stretched or twisted as the baby grows. The pain usuallybegins in the second trimester (13 28 weeks) of , and it can come and go until the baby isdelivered. It is not a serious problem, and it does not cause harm to the baby. Round ligament pain is usually a short, sharp, and pinching pain, but it can also be a dull, lingering, and aching pain. The pain is felt in the lower side of the abdomen or in the groin. It usually starts deep in the groin and moves up to the outside of the hip area. The pain may occur when you: Suddenly change position, such as quickly going from a sitting to standing position. Roll over in bed. Cough or sneeze. Do physical activity. Follow these instructions at home: Watch your condition for any changes. When the pain starts, relax. Then try any of these methods to help with the pain: ?Sitting down. ?Flexing your knees up to your abdomen. ?Lying on your side with one pillow under your abdomen and another pillow between your legs. ?Sitting in a warm bath for 15 20 minutes or until the pain goes away. Take iqvh-iqr-jjcetyh and prescription medicines only as told by your health care provider. Move slowly when you sit down or stand up. Avoid long walks if they cause pain. Stop or reduce your physical activities if they cause pain. Keep all follow-up visits as told by your health care provider. This is important. Contact a health care provider if: Your pain does not go away with treatment. You feel pain in your back that you did not have before. Your medicine is not helping. Get help right away if: You have a fever or chills. You develop uterine contractions. You have vaginal bleeding. You have nausea or vomiting. You have diarrhea. You have pain when you urinate. Summary Round ligament pain is felt in the lower abdomen or groin. It is usually a short, sharp, and pinching pain. It can also be a dull, lingering, and aching pain. This pain usually begins in the second trimester (13 28 weeks). It occurs because the uterus is stretching with the growing baby, and it is not harmful to the baby. You may notice the pain when you suddenly change position, when you cough or sneeze, or during physical activity. Relaxing, flexing your knees to your abdomen, lying on one side, or taking a warm bath may help to get rid of the pain. Get help from your health care provider if the pain does not go away or if you have vaginal bleeding, nausea, vomiting, diarrhea, or painful urination. This information is not intended to replace advice given to you by your health care provider. Make sure you discuss any questions you have with your health care provider. Document Released: 05/20/2009 Document Revised: 01/27/2019 Document Reviewed: 01/27/2019 Bundle Patient Education 2020 [employer]. 11/25/2022 22:14:49 Morning Sickness, Zfyf-xk-Maaq Morning Sickness Morning sickness is when you feel sick to your stomach (nauseous) during . You may feel sick to your stomach and throw up (vomit). You may feel sick in the morning, but you can feel this wayat any time of day. Some women feel very sick to their stomach and cannot stop throwing up (hyperemesis gravidarum). Follow these instructions at home: Medicines Take jsaj-qfy-cbfpjbc and prescription medicines only as told by your doctor. Do not take any medicines until you talk with your doctor about them first. Taking multivitamins before getting can stop or lessen the harshness of morning sickness. Eating and drinking Eat dry toast or crackers before getting out of bed. Eat 5 or 6 small meals a day. Eat dry and bland foods like rice and baked potatoes. Do not eat greasy, fatty, or spicy foods. Have someone cook for you if the smell of food causes you to feel sick or throw up. If you feel sick to your stomach after taking vitamins, take them at night or with a snack. Eat protein when you need a snack. Nuts, yogurt, and cheese are good choices. Drink fluids throughout the day. Try damián janak made with real damián, damián tea made from fresh grated damián, or damián candies. General instructions Do not use any products that have nicotine or tobacco in them, such as cigarettes and e-cigarettes.If you need help quitting, ask your doctor. Use an air purifier to keep the air in your house free of smells. Get lots of fresh air. Try to avoid smells that make you feel sick. Try: ?Wearing a bracelet that is used for seasickness (acupressure wristband). ?Going to a doctor who puts thin needles into certain body points (acupuncture) to improve how you feel. Contact a doctor if: You need medicine to feel better. You feel dizzy or light-headed. You are losing weight. Get help right away if: You feel very sick to your stomach and cannot stop throwing up. You pass out (faint). You have very bad pain in your belly. Summary Morning sickness is when you feel sick to your stomach (nauseous) during . You may feel sick in the morning, but you can feel this way at any time of day. Making some changes to what you eat may help your symptoms go away. This information is not intended to replace advice given to you by your health care provider. Make sure you discuss any questions you have with your health care provider. Document Released: 09/18/2005 Document Revised: 07/24/2018 Document Reviewed: 09/11/2017 Bundle Patient Education 2020 [employer]. 11/25/2022 22:14:49 Second Trimester of , Bqbx-jg-Vyfx Second Trimester of The second trimester is from week 14 through week 27 (month 4 through 6). This is often the time inpregnancy that you feel your best. Often times, morning sickness has lessened or quit. You may havemore energy, and you may get hungry more often. Your unborn baby is growing rapidly. At the end of the sixth month, he or she is about 9 inches long and weighs about 1 pounds. You will likely feel the baby move between 18 and 20 weeks of . Follow these instructions at home: Medicines Take qobo-yfd-vvpigax and prescription medicines only as told by your doctor. Some medicines are safe and some medicines are not safe during . Take a vitamin that contains at least 600 micrograms (mcg) of folic acid. If you have trouble pooping (constipation), take medicine that will make your stool soft (stool softener) if your doctor approves. Eating and drinking Eat regular, healthy meals. Avoid raw meat and uncooked cheese. If you get low calcium from the food you eat, talk to your doctor about taking a daily calcium supplement. Avoid foods that are high in fat and sugars, such as fried and sweet foods. If you feel sick to your stomach (nauseous) or throw up (vomit): ?Eat 4 or 5 small meals a day instead of 3 large meals. ?Try eating a few soda crackers. ?Drink liquids between meals instead of during meals. To prevent constipation: ?Eat foods that are high in fiber, like fresh fruits and vegetables, whole grains, and beans. ?Drink enough fluids to keep your pee (urine) clear or pale yellow. Activity Exercise only as told by your doctor. Stop exercising if you start to have cramps. Do not exercise if it is too hot, too humid, or if you are in a place of great height (high altitude). Avoid heavy lifting. Wear low-heeled shoes. Sit and stand up straight. You can continue to have sex unless your doctor tells you not to. Relieving pain and discomfort Wear a good support bra if your breasts are tender. Take warm water baths (sitz baths) to soothe pain or discomfort caused by hemorrhoids. Use hemorrhoid cream if your doctor approves. Rest with your legs raised if you have leg cramps or low back pain. If you develop puffy, bulging veins (varicose veins) in your legs: ?Wear support hose or compression stockings as told by your doctor. ?Raise (elevate) your feet for 15 minutes, 3 4 times a day. ?Limit salt in your food. care Write down your questions. Take them to your visits. Keep all your visits as told by your doctor. This is important. Safety Wear your seat belt when driving. Make a list of emergency phone numbers, including numbers for family, friends, the hospital, and police and fire departments. General instructions Ask your doctor about the right foods to eat or for help finding a counselor, if you need these services. Ask your doctor about local classes. Begin classes before month 6 of your . Do not use hot tubs, steam rooms, or saunas. Do not douche or use tampons or scented sanitary pads. Do not cross your legs for long periods of time. Visit your dentist if you have not done so. Use a soft toothbrush to brush your teeth. Floss gently. Avoid all smoking, herbs, and alcohol. Avoid drugs that are not approved by your doctor. Do not use any products that contain nicotine or tobacco, such as cigarettes and e-cigarettes. If you need help quitting, ask your doctor. Avoid cat litter boxes and soil used by cats. These carry germs that can cause defects in thebaby and can cause a loss of your baby (miscarriage) or stillbirth. Contact a doctor if: You have mild cramps or pressure in your lower belly. You have pain when you pee (urinate). You have bad smelling fluid coming from your vagina. You continue to feel sick to your stomach (nauseous), throw up (vomit), or have watery poop (diarrhea). You have a nagging pain in your belly area. You feel dizzy. Get help right away if: You have a fever. You are leaking fluid from your vagina. You have spotting or bleeding from your vagina. You have severe belly cramping or pain. You lose or gain weight rapidly. You have trouble catching your breath and have chest pain. You notice sudden or extreme puffiness (swelling) of your face, hands, ankles, feet, or legs. You have not felt the baby move in over an hour. You have severe headaches that do not go away when you take medicine. You have trouble seeing. Summary The second trimester is from week 14 through week 27 (months 4 through 6). This is often the time in that you feel your best. To take care of yourself and your unborn baby, you will need to eat healthy meals, take medicines only if your doctor tells you to do so, and do activities that are safe for you and your baby. Call your doctor if you get sick or if you notice anything unusual about your . Also, callyour doctor if you need help with the right food to eat, or if you want to know what activities aresafe for you. This information is not intended to replace advice given to you by your health care provider. Make sure you discuss any questions you have with your health care provider. Document Released: 11/05/2010 Document Revised: 12/03/2019 Document Reviewed: 09/16/2017 Bundle Patient Education 2020 [employer] 11/25/2022 22:14:49 Abdominal Pain During , Hijm-cf-Dgtj Abdominal Pain During Belly (abdominal) pain is common during . There are many possible causes. Most of the time, it is not a serious problem. Other times, it can be a sign that something is wrong with the . Always tell your doctor if you have belly pain. Follow these instructions at home: Do not have sex or put anything in your vagina until your pain goes away completely. Get plenty of rest until your pain gets better. Drink enough fluid to keep your pee (urine) pale yellow. Take nein-hxq-satdthb and prescription medicines only as told by your doctor. Keep all follow-up visits as told by your doctor. This is important. Contact a doctor if: Your pain continues or gets worse after resting. You have lower belly pain that: ?Comes and goes at regular times. ?Spreads to your back. ?Feels like menstrual cramps. You have pain or burning when you pee (urinate). Get help right away if: You have a fever or chills. You have vaginal bleeding. You are leaking fluid from your vagina. You are passing tissue from your vagina. You throw up (vomit) for more than 24 hours. You have watery poop (diarrhea) for more than 24 hours. Your baby is moving less than usual. You feel very weak or faint. You have shortness of breath. You have very bad pain in your upper belly. Summary Belly (abdominal) pain is common during . There are many possible causes. If you have belly pain during , tell your doctor right away. Keep all follow-up visits as told by your doctor. This is important. This information is not intended to replace advice given to you by your health care provider. Make sure you discuss any questions you have with your health care provider. Document Released: 07/30/2010 Document Revised: 11/29/2019 Document Reviewed: 11/13/2017 Bundle Patient Education 2020 [employer] Follow Up Care 11/25/2022 18:22:07 With:Your doctor in [place] [phone] Address:Unknown When:11/28/2022 21:41:43 Comments:Call for any problems.Call for fever > 100.5 FCall for severe abdominal painCall physician for heavy vaginal bleedingCall physician if symptoms worsenCall Dr. Crockett's [facility] to be seen in 2-3 days.Make sure to that the belly band is placed on tightly. Wear belly band when doing physical activity, while up and moving or at work. May take Tylenol for pain relief. [facility]02-06-2023 Hospital Discharge instructions* Discharge Instructions* Morgan Falk DO - 09/30/2022 9:10 AM EST Zofran as needed for nausea. Follow-up with OB next week as scheduled. Return to ER for worsening symptoms including intractable vomiting or abdominal pain or fevers or chills or any vaginal bleeding. * Attachments The following attachments cannot be sent through Care Everywhere. * : Hyperemesis Gravidarum (Serbian) [facility] Phone: [phone] 822-920001-11-2023 Hospital Discharge instructions* Attachments The following attachments cannot be sent through Care Everywhere. * : Morning Sickness (Serbian) * Oral Rehydration (Serbian) [facility]: [phone] 942-268901-05-2023 Evaluation + Plan noteExtracted from: Title:ED Note Author:Anu Ziegler, Alfredito Rabago te:08/29/22 1. Abdominal pain (R10.9: Un specified abdominal pain) 2. Intrauterine (Z34.90: Encounter for supervision of normal , unspecified, unspecified trimester) 3. Nausea (R11.0: Nausea) Orders: dicyclomine, 20 mg = 2 mL, Injection, IntraMuscular, Once, Stop date 08/29/22 1:03:00 EST, STAT, Start date 08/29/22 1:03:00 EST, 08/29/22 1:03:00 EST famotidine, 20 mg = 2 mL, Soln-IV, IV Push, Once, Stop date 08/29/22 1:01:00 EST, STAT, Start date 08/29/22 1:01:00 EST, 08/29/22 1:01:00 EST ondansetron, 4 mg = 1 tab(s), Oral, q6hr, PRN Nausea/Vomiting, # 12 tab(s), Refills(s) 0 ondansetron, 4 mg = 2 mL, Injection, IV Push, Once, Stop date 08/29/22 0:31:00 EST, STAT, Start date 08/29/22 0:31:00 EST, 08/29/22 0:31:00 EST Sodium Chloride 0.9% intravenous solution, Soln-IV, Misc, Once, Stop date 08/29/22 0:34:34 EST, Physician Stop, 08/29/22 0:34:34 EST Sodium Chloride 0.9% intravenous solution, 1,000 mL, Soln-IV, IV, Once, Stop date 08/29/22 0:31:00 EST, STAT, Start date 08/29/22 0:31:00 EST, Infuse over 61, minute(s) ABO/Rh Automated Diff Basic Metabolic Panel Beta hCG Quantitative CBC w/ Auto Diff eGFR Hepatic Function Panel Lipase Level Saline Lock Insert UA With Cult Reflex US 1st Trimester [facility]01-05-2023 Hospital Discharge instructions Patient Education 08/29/2022 01:49:40 Nausea, Adult Nausea, Adult Nausea is the feeling that you have an upset stomach or that you are about to vomit. Nausea on its own is not usually a serious concern, but it may be an early sign of a more serious medical problem.As nausea gets worse, it can lead to vomiting. If vomiting develops, or if you are not able to drink enough fluids, you are at risk of becoming dehydrated. Dehydration can make you tired and thirsty,cause you to have a dry mouth, and decrease how often you urinate. Older adults and people with other diseases or a weak disease-fighting system (immune system) are at higher risk for dehydration. The main goals of treating your nausea are: To relieve your nausea. To limit repeated nausea episodes. To prevent vomiting and dehydration. Follow these instructions at home: Watch your symptoms for any changes. Tell your health care provider about them. Follow these instructions as told by your health care provider. Eating and drinking Take an oral rehydration solution (ORS). This is a drink that is sold at pharmacies and retail stores. Drink clear fluids slowly and in small amounts as you are able. Clear fluids include water, ice chips, low-calorie sports drinks, and fruit juice that has water added (diluted fruit juice). Eat bland, wzfg-nx-npuozn foods in small amounts as you are able. These foods include bananas, applesauce, rice, lean meats, toast, and crackers. Avoid drinking fluids that contain a lot of sugar or caffeine, such as energy drinks, sports drinks, and soda. Avoid alcohol. Avoid spicy or fatty foods. General instructions Take wrdi-tml-xiizhgh and prescription medicines only as told by your health care provider. Rest at home while you recover. Drink enough fluid to keep your urine pale yellow. Breathe slowly and deeply when you feel nauseous. Avoid smelling things that have strong odors. Wash your hands often using soap and water. If soap and water are not available, use hand hand decorator. Make sure that all people in your household wash their hands well and often. Keep all follow-up visits as told by your health care provider. This is important. Contact a health care provider if: Your nausea gets worse. Your nausea does not go away after two days. You vomit. You cannot drink fluids without vomiting. You have any of the following: ?New symptoms. ?A fever. ?A headache. ?Muscle cramps. ?A rash. ?Pain while urinating. You feel light-headed or dizzy. Get help right away if: You have pain in your chest, neck, arm, or jaw. You feel extremely weak or you faint. You have vomit that is bright red or looks like coffee grounds. You have bloody or black stools or stools that look like tar. You have a severe headache, a stiff neck, or both. You have severe pain, cramping, or bloating in your abdomen. You have difficulty breathing or are breathing very quickly. Your heart is beating very quickly. Your skin feels cold and clammy. You feel confused. You have signs of dehydration, such as: ?Dark urine, very little urine, or no urine. ?Cracked lips. ?Dry mouth. ?Sunken eyes. ?Sleepiness. ?Weakness. These symptoms may represent a serious problem that is an emergency. Do not wait to see if the symptoms will go away. Get medical help right away. Call your local emergency services (911 in the [place] Do not drive yourself to the hospital. Summary Nausea is the feeling that you have an upset stomach or that you are about to vomit. Nausea on its own is not usually a serious concern, but it may be an early sign of a more serious medical problem. If vomiting develops, or if you are not able to drink enough fluids, you are at risk of becoming dehydrated. Follow recommendations for eating and drinking and take hdtb-zta-nsymdrj and prescription medicinesonly as told by your health care provider. Contact a health care provider right away if your symptoms worsen or you have new symptoms. Keep all follow-up visits as told by your health care provider. This is important. This information is not intended to replace advice given to you by your health care provider. Make sure you discuss any questions you have with your health care provider. Document Released: 09/18/2005 Document Revised: 01/19/2019 Document Reviewed: 01/19/2019 Bundle Patient Education 2020 [employer]. 08/29/2022 01:49:40 First Trimester of First Trimester of The first trimester of is from week 1 until the end of week 13 (months 1 through 3). A week after a sperm fertilizes an egg, the egg will implant on the wall of the uterus. This embryo willbegin to develop into a baby. Genes from you and your partner will form the baby. The male genes will determine whether the baby will be a boy or a girl. At 6 8 weeks, the eyes and face will be formed , and the heartbeat can be seen on ultrasound. At the end of 12 weeks, all the baby's organs will be formed. Now that you are , you will want to do everything you can to have a healthy baby. Two of the most important things are to get good care and to follow your health care provider's instructions. care is all the medical care you receive before the baby's . This care will help prevent, find, and treat any problems during the and childbirth. Body changes during your first trimester Your body goes through many changes during . The changes vary from woman to woman. You may gain or lose a couple of pounds at first. You may feel sick to your stomach (nauseous) and you may throw up (vomit). If the vomiting is uncontrollable, call your health care provider. You may tire easily. You may develop headaches that can be relieved by medicines. All medicines should be approved by your health care provider. You may urinate more often. Painful urination may mean you have a bladder infection. You may develop heartburn as a result of your . You may develop constipation because certain hormones are causing the muscles that push stool through your intestines to slow down. You may develop hemorrhoids or swollen veins (varicose veins). Your breasts may begin to grow larger and become tender. Your nipples may stick out more, and the tissue that surrounds them (areola) may become darker. Your gums may bleed and may be sensitive to brushing and flossing. Dark spots or blotches (chloasma, mask of ) may develop on your face. This will likely fade after the baby is born. Your menstrual periods will stop. You may have a loss of appetite. You may develop cravings for certain kinds of food. You may have changes in your emotions from day to day, such as being excited to be or being concerned that something may go wrong with the and baby. You may have more vivid and strange dreams. You may have changes in your hair. These can include thickening of your hair, rapid growth, and changes in texture. Some women also have hair loss during or after , or hair that feels dry orthin. Your hair will most likely return to normal after your baby is born. What to expect at visits During a routine visit: You will be weighed to make sure you and the baby are growing normally. Your blood pressure will be taken. Your abdomen will be measured to track your baby's growth. The heartbeat will be listened to between weeks 10 and 14 of your . Test results from any previous visits will be discussed. Your health care provider may ask you: How you are feeling. If you are feeling the baby move. If you have had any abnormal symptoms, such as leaking fluid, bleeding, severe headaches, or abdominal cramping. If you are using any tobacco products, including cigarettes, chewing tobacco, and electronic cigarettes. If you have any questions. Other tests that may be performed during your first trimester include: Blood tests to find your blood type and to check for the presence of any previous infections. The tests will also be used to check for low iron levels (anemia) and protein on red blood cells (Rh antibodies). Depending on your risk factors, or if you previously had diabetes during , you mayhave tests to check for high blood sugar that affects women (gestational diabetes). Urine tests to check for infections, diabetes, or protein in the urine. An ultrasound to confirm the proper growth and development of the baby. screens for spinal cord problems (spina bifida) and Down syndrome. HIV (human immunodeficiency virus) testing. Routine testing includes screening for HIV, unless you choose not to have this test. You may need other tests to make sure you and the baby are doing well. Follow these instructions at home: Medicines Follow your health care provider's instructions regarding medicine use. Specific medicines may be either safe or unsafe to take during . Take a vitamin that contains at least 600 micrograms (mcg) of folic acid. If you develop constipation, try taking a stool softener if your health care provider approves. Eating and drinking Eat a balanced diet that includes fresh fruits and vegetables, whole grains, good sources of protein such as meat, eggs, or tofu, and low-fat dairy. Your health care provider will help you determine the amount of weight gain that is right for you. Avoid raw meat and uncooked cheese. These carry germs that can cause defects in the baby. Eating four or five small meals rather than three large meals a day may help relieve nausea and vomiting. If you start to feel nauseous, eating a few soda crackers can be helpful. Drinking liquids between meals, instead of during meals, also seems to help ease nausea and vomiting. Limit foods that are high in fat and processed sugars, such as fried and sweet foods. To prevent constipation: ?Eat foods that are high in fiber, such as fresh fruits and vegetables, whole grains, and beans. ?Drink enough fluid to keep your urine clear or pale yellow. Activity Exercise only as directed by your health care provider. Most women can continue their usual exercise routine during . Try to exercise for 30 minutes at least 5 days a week. Exercising will help you: ?Control your weight. ?Stay in shape. ?Be prepared for labor and delivery. Experiencing pain or cramping in the lower abdomen or lower back is a good sign that you should stop exercising. Check with your health care provider before continuing with normal exercises. Try to avoid standing for long periods of time. Move your legs often if you must supervisor stave cutting one placefor a long time. Avoid heavy lifting. Wear low-heeled shoes and practice good posture. You may continue to have sex unless your health care provider tells you not to. Relieving pain and discomfort Wear a good support bra to relieve breast tenderness. Take warm sitz baths to soothe any pain or discomfort caused by hemorrhoids. Use hemorrhoid cream if your health care provider approves. Rest with your legs elevated if you have leg cramps or low back pain. If you develop varicose veins in your legs, wear support hose. Elevate your feet for 15 minutes, 3 4 times a day. Limit salt in your diet. care Schedule your visits by the twelfth week of . They are usually scheduled monthly at first, then more often in the last 2 months before delivery. Write down your questions. Take them to your visits. Keep all your visits as told by your health care provider. This is important. Safety Wear your seat belt at all times when driving. Make a list of emergency phone numbers, including numbers for family, friends, the hospital, and police and fire departments. General instructions Ask your health care provider for a referral to a local education class. Begin classes no later than the beginning of month 6 of your . Ask for help if you have counseling or nutritional needs during . Your health care provider can offer advice or refer you to specialists for help with various needs. Do not use hot tubs, steam rooms, or saunas. Do not douche or use tampons or scented sanitary pads. Do not cross your legs for long periods of time. Avoid cat litter boxes and soil used by cats. These carry germs that can cause defects in thebaby and possibly loss of the fetus by miscarriage or stillbirth. Avoid all smoking, herbs, alcohol, and medicines not prescribed by your health care provider. Chemicals in these products affect the formation and growth of the baby. Do not use any products that contain nicotine or tobacco, such as cigarettes and e-cigarettes. If you need help quitting, ask your health care provider. You may receive counseling support and other resources to help you quit. Schedule a dentist appointment. At home, brush your teeth with a soft toothbrush and be gentle whenyou floss. Contact a health care provider if: You have dizziness. You have mild pelvic cramps, pelvic pressure, or nagging pain in the abdominal area. You have persistent nausea, vomiting, or diarrhea. You have a bad smelling vaginal discharge. You have pain when you urinate. You notice increased swelling in your face, hands, legs, or ankles. You are exposed to fifth disease or chickenpox. You are exposed to [place] measles (rubella) and have never had it. Get help right away if: You have a fever. You are leaking fluid from your vagina. You have spotting or bleeding from your vagina. You have severe abdominal cramping or pain. You have rapid weight gain or loss. You vomit blood or material that looks like coffee grounds. You develop a severe headache. You have shortness of breath. You have any kind of trauma, such as from a fall or a car accident. Summary The first trimester of is from week 1 until the end of week 13 (months 1 through 3). Your body goes through many changes during . The changes vary from woman to woman. You will have routine visits. During those visits, your health care provider will examine you, discuss any test results you may have, and talk with you about how you are feeling. This information is not intended to replace advice given to you by your health care provider. Make sure you discuss any questions you have with your health care provider. Document Released: 08/05/2002 Document Revised: 07/24/2018 Document Reviewed: 07/23/2017 Bundle Patient Education 2020 [employer]. 08/29/2022 01:49:40 Abdominal Pain During Abdominal Pain During Abdominal pain is common during , and has many possible causes. Some causes are more serious than others, and sometimes the cause is not known. Abdominal pain can be a sign that labor is starting. It can also be caused by normal growth and stretching of muscles and ligaments during . Always tell your health care provider if you have any abdominal pain. Follow these instructions at home: Do not have sex or put anything in your vagina until your pain goes away completely. Get plenty of rest until your pain improves. Drink enough fluid to keep your urine pale yellow. Take kzbk-cty-dsvbepu and prescription medicines only as told by your health care provider. Keep all follow-up visits as told by your health care provider. This is important. Contact a health care provider if: Your pain continues or gets worse after resting. You have lower abdominal pain that: ?Comes and goes at regular intervals. ?Spreads to your back. ?Is similar to menstrual cramps. You have pain or burning when you urinate. Get help right away if: You have a fever or chills. You have vaginal bleeding. You are leaking fluid from your vagina. You are passing tissue from your vagina. You have vomiting or diarrhea that lasts for more than 24 hours. Your baby is moving less than usual. You feel very weak or faint. You have shortness of breath. You develop severe pain in your upper abdomen. Summary Abdominal pain is common during , and has many possible causes. If you experience abdominal pain during , tell your health care provider right away. Follow your health care provider's home care instructions and keep all follow-up visits as directed. This information is not intended to replace advice given to you by your health care provider. Make sure you discuss any questions you have with your health care provider. Document Released: 08/11/2006 Document Revised: 11/29/2019 Document Reviewed: 11/13/2017 Bundle Patient Education 2020 [employer]. Follow Up Care 08/28/2022 21:30:23 With:Julius CROCKETT Address: [address] , [place] [address]- Business (1) When:09/01/2022 Comments:Return to the emergency room if your pain gets worse, general bleeding, vomiting or any new symptoms With:Delfin Urbano Address: [address] [place] [address] [place] [address]- Business (1) When:Within 3 Day(s) [facility]01-02-2023 Evaluation + Plan noteExtracted from: Title:ED Note Author:Kei Moore DO Date:08/26 Hyperemesis gravidarum (O21. 0: Mild hyperemesis gravidarum) Orders: ondansetron, 4 mg = 2 mL, Injection, IV Push, Once, Stop date 08/26/22 12:47:00 EST, STAT, Start date 08/26/22 12:47:00 EST, 08/26/22 12:47:00 EST ondansetron, 4 mg = 2 mL, Injection, IV Push, Once, Stop date 08/26/22 11:06:00 EST, STAT, Start date 08/26/22 11:06:00 EST, 08/26/22 11:06:00 EST ondansetron, 4 mg = 1 tab(s), Oral, q6hr, PRN Nausea, Take one tab by mouth every six hours as needed for nausea, # 10 tab(s), Refills(s) 0 promethazine, 12.5 mg = 0.5 mL, Injection, IV Push, Once, Stop date 08/26/22 11:44:00 EST, STAT, Start date 08/26/22 11:44:00 EST, 08/26/22 11:44:00 EST Sodium Chloride 0.9% intravenous solution 1,000 mL, 1,000 mL, IV, 1,000 mL/hr, STAT, Start date 08/26/22 11:06:00 EST, 1 hour(s), Total volume (mL): 1,000, 79 kg, 1.96, m2 Automated Diff CBC w/ Auto Diff Comprehensive Metabolic Panel eGFR Extra SST Tube Lipase Level UA With Cult Reflex [facility]01-02-2023 Hospital Discharge instructions Follow Up Care 08/26/2022 11:00:10 With:Julius CROCKETT Address: [address] , [facility] [place] [address]- Business (1) When:08/29/2022 12:48:07 With:Delfin Urbano Address: [address] [place], [place] [address] [address] Business (1) When:Within 3 Day(s) [facility]12-31-2022 History of Present illness Narrative* Shantanu Jameson RN - 08/24/2022 2:15 AM EST Patient resting with eyes closed [facility] [employer] Phone: [phone] 840-302912-17-2022 Hospital Discharge instructions* Discharge Instructions* Tyron Guevara MD - 08/10/2022 2:09 AM EST By Last Menstrual of 07/12, I calculated your due date as 04/18/2023 4 weeks 1 day as of 08/10/2022 * Attachments The following attachments cannot be sent through Care Everywhere. * : Abdominal Pain (Serbian) * : Morning Sickness (Serbian) documented [facility] this [facility] Phone: 1(426) 840-786512-13-2022 Hospital Discharge instructions* Discharge Instructions* Morgan Falk DO - 08/06/2022 1:40 AM EST Take awtt-kgb-fyvkalp Prilosec as needed for heartburn symptoms. Call to establish care. Return to ER for worsening symptoms. * Attachments The following attachments cannot be sent through Care Everywhere. * : Morning Sickness (Serbian) [facility] [employer] Phone: [phone]) 802-334412-12-2022 Evaluation note* Diagnosis Morning sickness- Primary Mild hyperemesis gravidarum, unspecified as to episode of care documented in this encounter [facility] [employer] Phone: [phone]) 823-558111-18-2022 Evaluation + Plan noteExtracted from: Title:ED Note Author:Sissy Shah DO Date :07/12/22 Epigastric abdominal pain (R 10.13: Epigastric pain) Orders: Al hydroxide/Mg hydroxide/simethicone, 30 mL, Susp-Oral, Oral, Once, Stop date 07/12/22 3:55:00 EST, STAT, Start date 07/12/22 3:55:00 EST atropine/hyoscyamine/PB/scopolamine, 10 mL, Elixir, Oral, Once, Stop date 07/12/22 3:55:00 EST, STAT, Start date 07/12/22 3:55:00 EST famotidine, 20 mg = 1 tab(s), Oral, Daily, # 14 tab(s), Refills(s) 0 famotidine, 20 mg = 2 mL, Soln-IV, IV Push, Once, Stop date 07/12/22 3:55:00 EST, STAT, Start date 07/12/22 3:55:00 EST, 07/12/22 3:55:00 EST ketorolac, 30 mg = 1 mL, Injection, IV Push, Once, Stop date 07/12/22 3:55:00 EST, STAT, Start date 07/12/22 3:55:00 EST, 07/12/22 3:55:00 EST lidocaine topical, 200 mg, 10 mL, Soln-Oral, Oral, Once, Stop date 07/12/22 3:55:00 EST, STAT, Start date 07/12/22 3:55:00 EST ondansetron, 4 mg = 2 mL, Injection, IV Push, Once, Stop date 07/12/22 3:55:00 EST, STAT, Start date 07/12/22 3:55:00 EST, 07/12/22 3:55:00 EST ondansetron, 4 mg = 1 tab(s), Oral, q8hr, PRN Nausea/Vomiting, # 12 tab(s), Refills(s) 0 Sodium Chloride 0.9% intravenous solution, 1,000 mL, Soln-IV, IV, Once, Stop date 07/12/22 3:55:00 EST, STAT, Start date 07/12/22 3:55:00 EST, Infuse over 61, minute(s) Sodium Chloride 0.9% intravenous solution, Soln-IV, Misc, Once, Stop date 07/12/22 3:58:23 EST, Physician Stop, 07/12/22 3:58:23 EST sucralfate, 1 gm = 1 tab(s), Oral, QID, X 7 day(s), # 28 tab(s), Refills(s) 0 Automated Diff Basic Metabolic Panel Beta hCG Qual CBC w/ Auto Diff ECG 12 Lead Adult eGFR Hepatic Function Panel Lipase Level Troponin 0 Hr. UA With Cult Reflex XR Chest Single View [facility]11-18-2022 Hospital Discharge instructions Patient Education 07/12/2022 05:07:15 Abdominal Pain, Adult, Ysaw-wb-Cldf Abdominal Pain, Adult Many things can cause belly (abdominal) pain. Most times, belly pain is not dangerous. Many cases of belly pain can be watched and treated at home. Sometimes, though, belly pain is serious. Your doctor will try to find the cause of your belly pain. Follow these instructions at home: Medicines Take goqr-apx-dhxkwva and prescription medicines only as told by your doctor. Do not take medicines that help you poop (laxatives) unless told by your doctor. General instructions Watch your belly pain for any changes. Drink enough fluid to keep your pee (urine) pale yellow. Keep all follow-up visits as told by your doctor. This is important. Contact a doctor if: Your belly pain changes or gets worse. You are not hungry, or you lose weight without trying. You are having trouble pooping (constipated) or have watery poop (diarrhea) for more than 2 3 days. You have pain when you pee or poop. Your belly pain wakes you up at night. Your pain gets worse with meals, after eating, or with certain foods. You are vomiting and cannot keep anything down. You have a fever. You have blood in your pee. Get help right away if: Your pain does not go away as soon as your doctor says it should. You cannot stop vomiting. Your pain is only in areas of your belly, such as the right side or the left lower part of the belly. You have bloody or black poop, or poop that looks like tar. You have very bad pain, cramping, or bloating in your belly. You have signs of not having enough fluid or water in your body (dehydration), such as: ?Dark pee, very little pee, or no pee. ?Cracked lips. ?Dry mouth. ?Sunken eyes. ?Sleepiness. ?Weakness. You have trouble breathing or chest pain. Summary Many cases of belly pain can be watched and treated at home. Watch your belly pain for any changes. Take jcte-phm-smgzpox and prescription medicines only as told by your doctor. Contact a doctor if your belly pain changes or gets worse. Get help right away if you have very bad pain, cramping, or bloating in your belly. This information is not intended to replace advice given to you by your health care provider. Make sure you discuss any questions you have with your health care provider. Document Released: 01/27/2009 Document Revised: 12/20/2019 Document Reviewed: 12/20/2019 Bundle Patient Education 2020 [employer] Follow Up Care 07/12/2022 03:38:09 With:Delfin Urbano Address: [address] [place] [address]- Business (1) When:07/15/2022 Comments:Take the Pepcid once daily for the next 10 days and to completed the course. You can use the Zofranevery 6 hours as needed for nausea or vomiting. You can use the Carafate 4 times a day as needed for pain. Please follow-up with your primary care doctor in the next 2 to 3 days. Please return to theED for any new or worsening symptoms. [facility] Diagnosis Non-intractable vomiting with nausea, unspecified vomiting type- Primary documented in this encounter [facility] Phone: evaluation note* Diagnosis Pain, dental- Primary Unspecified disorder of the teeth and supporting structures documented in this encounter [facility] Phone: evaluation note* Diagnosis Abdominal cramping- Primary Abdominal pain, unspecified site Negative test examination or test, negative result documented in this encounter [facility] Phone: evaluation note* Diagnosis Pain, dental- Primary Unspecified disorder of the teeth and supporting structures History of tooth extraction, unspecified edentulism class documented in this encounter [facility] Phone: evaluation note* Diagnosis Abdominal pain during in first trimester- Primary Nausea and vomiting during documented in this encounter [employer] Phone: evaluation note* Diagnosis Hyperemesis gravidarum- Primary Mild hyperemesis gravidarum, unspecified as to episode of care Dehydration documented in this encounter [employer] Phone: evaluation note* Diagnosis Vomiting of , antepartum- Primary Unspecified vomiting of , antepartum Dehydration during documented in this encounter [facility] Phone: evaluation note* Diagnosis Cellulitis of right upper extremity- Primary Cellulitis and abscess of upper arm and forearm documented in this encounter [facility] Phone: evaluation note* Diagnosis Nausea and vomiting during - Primary documented in this encounter [facility] Phone: Hospital course Narrative No data available for this section [facility]* Attachments The following attachments cannot be sent through Care Everywhere. * Nausea and Vomiting (Serbian) documented in [facility] Phone: Hospital Discharge instructions* Attachments The following attachments cannot be sent through Care Everywhere. * Tooth and Gum Pain (Serbian) documented in [facility] Phone: Hospital Discharge instructions* Attachments The following attachments cannot be sent through Care Everywhere. * Abdominal Pain (Serbian) documented in this [facility] Phone: Hospital Discharge instructions* Attachments The following attachments cannot be sent through Care Everywhere. * Gilbert Tooth Extraction: Post-op (Serbian) documented in this encounterHU[facility] Phone: Hospital Discharge instructions* Attachments The following attachments cannot be sent through Care Everywhere. * Oral Rehydration (Serbian) documented in this [facility] Phone: Hospital Discharge instructions* Attachments The following attachments cannot be sent through Care Everywhere. * Cellulitis (Serbian) documented in this encounterHU[facility]ITAL[facility] Phone: Hospital Discharge instructions No data available for this section [facility] No data available for this section [facility] Summary Purpose Family History No Family History Records FoundNo Family History Records FoundNo Family History Records FoundNo Family History Records Found No data available for this section No Family History Records Found No data available for this section No Family History Records Found Advance Directives No Advanced Directives Records FoundDocuments on File Type Date 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 Additional Source Comments INFORMATION SOURCE (unrecogn ized section and content) DATE CREATED AUTHOR [facility] DATE CREATED AUTHOR AUTHOR'S ORGANIZ ATION 12/09/2022 [facility] DATE CREATED AUTHOR AUTHOR'S ORGANIZ ATION 03/26/2023 [facility] DATE CREATED AUTHOR AUTHOR'S ORGANIZ ATION 04/13/2023 [facility] DATE CREATED AUTHOR AUTHOR'S ORGANIZ ATION 06/07/2023 [facility] DATE CREATED AUTHOR AUTHOR'S ORGANANN ATION 10/24/2023 [facility] EPIC Reason for Visit (unrecogniz ed section and content) Reason Comments Nausea Started today with natalya frances then became nausous and threw up multiple times. Reason Comments Dental Pain patient presents to the ED with c/o dental pain - reports pain to right lower jaw area - pain started 1 month ago - states she can't see her dentist until May Reason Comments Abdominal Cramping Pt states that she i s cramping and nauseated. Pt states that she is on her menstrual cycle currently and has bad cramps. Reason Comments Shortness of Breath Anxiety Dental Pain Patient had five marlena th removed today (4 were wisdom) Reason Comments Test Pt states she took 2 positive tests from the [email or web address] store but she wanted to come to the hospital to get it checked. 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 Pt states she's lost about 4 lbs. Reason Comments Abdominal Pain Pt C/O abdominal sarita n and back pain x 2 days. Pt states that she found out she was 5 days ago. Reason Comments Emesis Onset 3 days ago; pt is Reason Comments Emesis C/o n/v for 3 weeks, states she is 7 weeks and 5 days. Reason Comments Arm Pain C/o right upper arm swelling and pain, started 2 days ago. Reason Comments Nausea Pt is 11 weeks pregn ant and is feeling nauseated and is out of Zofran. Ordered Prescriptions (unrec ognized section and content) Prescription Sig Dispensed Refills Start Date End Da te ondansetron (ZOFRAN) 4 MG tablet Take 1 tablet by mouth every 8 hours as needed for Nausea or Vomiting 12 tablet 0 02/08/2022 02/13/2022 Prescription Sig Dispensed Refills Start Date End Da te penicillin v potassium (VEETID) 500 MG tablet Take 1 tablet by mouth 4 times daily for 10 days 40 tablet 0 02/27/2022 03/09/2022 naproxen (NAPROSYN) 500 MG tablet Take 1 tablet by mouth 2 times daily 30 tablet 0 02/27/2022 Prescription Sig Dispensed Refills Start Date End Da te promethazine (PHENERGAN) 25 MG tablet Take 1 tablet by mouth every 6 hours as needed for Nausea 20 tablet 0 08/10/2022 08/17/2022 Prescription Sig Dispensed Refills Start Date End Da te metoclopramide (REGLAN) 10 MG tablet Take 1 tablet by mouth every 6 hours as needed (nausea/vomiting) 20 tablet 1 09/04/2022 ondansetron (ZOFRAN-ODT) 4 MG disintegrating tablet Take 1 tablet by mouth every 6 hours as needed for Nausea or Vomiting 15 tablet 0 09/04/2022 Prescription Sig Dispensed Refills Start Date End Da te amoxicillin-clavulanate (AUGMENTIN) 875-125 MG per tablet Take 1 tablet by mouth 2 times daily for 5 days 10 tablet 0 09/26/2022 10/01/2022 Prescription Sig Dispensed Refills Start Date End Da te ondansetron (ZOFRAN-ODT) 4 MG disintegrating tablet Take 1 tablet by mouth every 8 hours as needed for Nausea or Vomiting 10 tablet 0 09/30/2022 Scheduled Active and Recently Administ ered Medications (unrecognized section and content) Medication Order 02/06/2022 02/07/2022 02/08/2022 0.9 % sodium chloride bolus (COMPLETED) 1,000 mL (11.9 mL/kg), IntraVENous, at 1,000 mL/hr, Administer over 1 Hours, ONCE, On Fri02/08/22 at 1930, For 1 dose 1936 (New Bag - Prov ider: Mery Jaime RN)2048 (Stopped - Provider: Mery Jaime RN) famotidine (PEPCID) 20 mg in sodium chloride (PF) 10 mL injection (COMPLETED) 20 mg, IntraVENous, ONCE, 1 dose, On Fri02/08/22 at 1930, IV Push over minimum of 2 minutes - Dilute with 10 mL NS 1943 (Given - Provid er: Mery Jaime RN) ketorolac (TORADOL) injection 15 mg (COMPLETED) Ketorolac is contraindicated in patients with advanced renal impairment and in patients at risk of renal failure due to volume depletion. For 65 years of age and older OR weight less than 50 kg, use 15 mg IV every 6 hours; MAX dose: 60 mg/day. Dose greater than 30 mg must be administered via intramuscular route. Do not administer for more than 5 days., 15 mg, IntraVENous, ONCE, 1 dose, On Fri02/08/22 at 1930, Do not administer for more than 5 days. 194 (Given - Provid er: Mery Jaime RN) ondansetron (ZOFRAN) injection 4 mg (COMPLETED) 4 mg, IntraVENous, ONCE, 1 dose, On Fri02/08/22 at 1930 194 (Given - Provid er: Mery Jaime RN) Scheduled Medication Order 02/25/2022 02/26/2022 02/27/2022 benzocaine (ORAJEL) 20 % mucosal gel (COMPLETED) Mouth/Throat, ONCE, On Fri02/27/22 at 1615, For 1 dose 1620 (Given - Provid er: Clover Dorsey RN) lidocaine viscous hcl (XYLOCAINE) 2 % solution 15 mL (COMPLETED) 15 mL, Mouth/Throat, ONCE, 1 dose, On Fri02/27/22 at 1615, Soak cotton balls and small container along with HurriCaine gel and apply cotton balls to affected area of teeth every 3 hours as needed for pain 1619 (Given - Provid er: Clover Dorsey RN) Scheduled Medication Order 04/16/2022 04/17/2022 04/18/2022 ketorolac (TORADOL) injection 30 mg (COMPLETED) Ketorolac is contraindicated in patients with advanced renal impairment and in patients at risk of renal failure due to volume depletion. For 65 years of age and older OR weight less than 50 kg, use 15 mg IV every 6 hours; MAX dose: 60 mg/day. Dose greater than 30 mg must be administered via intramuscular route. Do not administer for more than 5 days., 30 mg, IntraVENous, ONCE, 1 dose, On Lorena 04/18/22 at 1600, Do not administer for more than 5 days. 1553 (Given - Provid er: Bonnie Dobson RN) ondansetron (ZOFRAN) injection 4 mg (COMPLETED) 4 mg, IntraVENous, ONCE, 1 dose, On Lorena 04/18/22 at 1600 1554 (Given - Provid er: Bonnie Dobson RN) Scheduled Medication Order 06/29/2022 06/30/2022 07/01/2022 oxyCODONE-acetaminophen (PERCOCET) 5-325 MG per tablet 1 tablet (COMPLETED) Mg/kg dosing is based on the oxycodone component., 1 tablet, Oral, ONCE, 1 dose, On 07/01/22 at 1445, Maximum dose of acetaminophen is 4000 mg from all sources in 24 hours. 1442 (Given - Provid er: Nadia Mccain RN) Scheduled Medication Order 08/08/2022 08/09/2022 08/10/2022 promethazine (PHENERGAN) tablet 25 mg (COMPLETED) 25 mg, Oral, ONCE, 1 dose, On 08/10/22 at 0215, Send home with pt 0220 (Given - Provid er: Nathen Hennessy RN) Scheduled Medication Order 08/22/2022 08/23/2022 08/24/2022 0.9 % sodium chloride bolus (COMPLETED) 1,000 mL (13.1 mL/kg), IntraVENous, at 983.6 mL/hr, Administer over 61 Minutes, ONCE, On 08/24/22 at 0130, For 1 dose 0120 (New Bag - Prov ider: Suyapa Mcclellan RN)0222 (Stopped - Provider: Shantanu Jameson RN) diphenhydrAMINE (BENADRYL) injection 25 mg (COMPLETED) 25 mg, IntraVENous, ONCE, 1 dose, On 08/24/22 at 0130 0151 (Given - Provid er: Shantanu Jameson RN) Scheduled Medication Order 09/02/2022 09/03/2022 09/04/2022 0.9 % sodium chloride bolus (COMPLETED) 1,000 mL, IntraVENous, at 495.9 mL/hr, Administer over 121 Minutes, ONCE, On Fri09/04/22 at 2015, For 1 dose 2011 (New Bag - Prov ider: Majo Haskins RN)2132 (Stopped - Provider: Majo Haskins RN) ondansetron (ZOFRAN) injection 4 mg (COMPLETED) 4 mg, IntraVENous, ONCE, 1 dose, On Fri09/04/22 at 2045 2050 (Given - Provid er: Majo Haskins RN) Scheduled Medication Order 09/28/2022 09/29/2022 09/30/2022 ondansetron (ZOFRAN-ODT) disintegrating tablet 4 mg (COMPLETED) 4 mg, Oral, ONCE, 1 dose, On 09/30/22 at 0915 0932 (Given - Provid er: Clover Dorsey RN) Care Teams (unrecognized sec tion and content) French Edge Operator Relationship Specialty Start Date End Date Delfin Urbano MD [address] [facility] [place] [address] PCP - General Family Medicine 02/08/22 French Edge Operator Relationship Specialty Start Date End Date Delfin Urbano MD [address] [facility] [place] [address] PCP - General Family Medicine 02/08/22 French Edge Operator Relationship Specialty Start Date End Date Delfin Urbano MD [address] [facility] [place] [address] PCP - General Family Medicine 02/08/22 French Edge Operator Relationship Specialty Start Date End Date Delfin Urbano MD [address] [facility] [place] [address] PCP - General Family Medicine 02/08/22 French Edge Operator Relationship Specialty Start Date End Date Delfin Urbano MD [address] [facility] [place] [address] PCP - General Family Medicine 02/08/22 French Edge Operator Relationship Specialty Start Date End Date Delfin Urbano MD [address] [facility] [place] [address] PCP - General Family Medicine 02/08/22 French Edge Operator Relationship Specialty Start Date End Date Delfin Urbano MD [address] [facility] [place] [address] PCP - General Family Medicine 02/08/22 FOR RECORDS PERTAINING TO PATIENTS WHO ARE OR HAVE BEEN ENROLLED IN A CHEMICAL DEPENDENCY/SUBSTANCEABUSE PROGRAM, SOME INFORMATION MAY BE OMITTED. This clinical summary was aggregated from multiple sources. Caution should be exercised in using it in the provision of clinical care. This summary normalizes information from multiple sources, and as a consequence, information in this document may materially change the coding, format and clinical context of patient data. In addition, data may be omitted in some cases. CLINICAL DECISIONS SHOULD BE BASED ON THE PRIMARY CLINICAL RECORDS. [facility]. provides no warranty or guarantee of the accuracy or completeness of information in this document.
[2023-10-30 10:50] LABS: BOX Test Sent Out Y; Basophils Percent Auto 0.6 % (0.2-2.0); Eosinophils Absolute Auto 0.2 10^3/uL (0.0-0.7); Hematocrit 39.6 % (36.0-48.0); Hemoglobin 12.8 g/dL (12.0-16.0); Immature Granulocytes Abs Auto 0.02 10^3/uL (0.00-0.03); Immature Granulocytes Pct Auto 0.3 % (0.0-0.5); Lymphocytes Absolute Auto 2.1 10^3/uL (1.2-3.8); Lymphocytes Percent Auto 30.4 % (20.5-60.0); Mean Corpuscular HGB Conc 32.3 g/dL (29.9-35.2); Mean Corpuscular Hemoglobin 27.7 pg (26.7-34.0); Mean Corpuscular Volume 85.7 fL (81.0-99.0); Mean Platelet Volume 10.7 fL (9.5-13.5); Monocytes Absolute Auto 0.5 10^3/uL (0.3-0.8); Monocytes Percent Auto 6.6 % (1.7-12.0); Neutrophils Absolute Auto 4.1 10^3/uL (1.4-6.5); Neutrophils Percent Auto 59.1 % (43.0-75.0); Platelet Count 253 10^3/uL (150-450); Red Blood Count 4.62 10^6/uL (4.20-5.40); Red Cell Distribution Width 13.4 % (11.0-15.0); White Blood Count 6.9 10^3/uL (4.0-11.0)
[2023-10-30 11:34] LABS: Estimated Average Glucose 97 mg/dL
[2023-10-31 06:09] LABS: HBsAg Screen Negative (Negative); HIV Ab/p24 Ag Screen Non Reactive (Non Reactive)
[2023-10-31 07:17] LABS: HCV Ab Non Reactive (Non Reactive); Rubella Antibodies, IgG 2.66 index (Immune >0.99)
[2023-10-31 13:11] LABS: Rapid Plasma Reagin, Quant Non Reactive titer (NonRea<1:1)
== END 2023-10-30 10:12 | disposition home or self-care (01) ==
LOC: LAB 10:12
PROVIDERS: PCP Family Medicine; Visit Provider Obstetrics & Gynecology
DX: Z36.0 Encounter for antenatal screening for chromosomal anomalies (principal); N92.6 Irregular menstruation, unspecified
CPT/HCPCS: 36415; 83036; 85025; 86592; 86762; 86803; 86850; 86900; 86901; 87086; 87340; 87389

== ENCOUNTER 2023-11-13 12:35 | Outpatient (OUT) | payer OTHER, SELFPAY ==
--- NOTE | 2023-11-13 12:40 | US_ITS ---
The [address] [address] Patient Name: ROQUE PIERSON MRN: [id number] date: 2000 Sex: F Assigned Patient Location: Current Patient Location: Accession/Order Number: [id number] Exam Date: 11/13/2023 12:00 Report Date: 11/13/2023 15:02 At the request of: REKHA JANSEN Procedure: US OB transvaginal EXAMINATION: US OB transvaginal HISTORY: NO HEART TONES. VIABILITY COMPARISON: Ultrasound OB transvaginal 10/16/2023 FINDINGS: GESTATIONAL SAC: Present and normal appearing. X2 YOLK SAC: Present and normal appearing. X2 POLE: Present and normal appearing. X2 CARDIAC: Absent. X2 UTERUS: Normal size and appearance. OVARIES: Right: Normal. Left: Normal. CERVIX: cm in length and closed. CUL-DE-SAC: Normal. OTHER: None. AGE BY LMP: 12 weeks 3 days [place] BY LMP: 05/24/2024 AGE BY US CRL: 9 weeks 0 days (x2) [place] BY US CRL: 06/17/2024 (x2) US/US OB transvaginal IMPRESSION: 1. Twin intrauterine both measuring 9 weeks 0 days by today's ultrasound. 2. Neither fetus has an active heartbeat at this time but did previously demonstrate heartbeats on 10/16/2023. Findings compatible with demise. Electronically authenticated by: JULIUS RICKS Date: 11/13/2023 15:02
== END 2023-11-13 12:36 | disposition home or self-care (01) ==
LOC: US 12:35
PROVIDERS: PCP Family Medicine; Visit Provider Obstetrics & Gynecology
DX: O02.1 Missed abortion (principal); O36.80X0 Pregnancy with inconclusive fetal viability, not applicable or unspecified; Z3A.09 9 weeks gestation of pregnancy
CPT/HCPCS: 76817

== ENCOUNTER 2023-11-14 11:21 | Day surgery (SDC) | payer OTHER, SELFPAY ==
[2023-11-14] VITALS (9 sets, daily range): BP systolic 92–122; BP diastolic 49–78; PULSE 67–95; RESP 10–18; TEMP 36.1–36.2; O2SAT 97–100; BMI 25.4
--- OUTSIDE RECORDS SUMMARY | 2023-11-14 11:26 | XMS_ITS | CCD ---
Author Organization [facility] Care Team Providers Care Merchandise Marker Name Role Phone LIMANOE Unavailable Unavailable Delfin Urbano MD Primary Care Provider [phone] Delfin Urbano MD Primary Care Provider [phone] Delfin Urbano MD Primary Care Provider [phone] Delfin Urbano Primary Care Physician Delfin Urbano MD Primary Care Provider [phone] CHRISTY ., NOE Consulting Unavailable REQUEST, DR GALDINO LISTED Primary Care Unavaila ble CHRISTY ., NOE Attending Unavailable CHRISTY ., NOE Admitting Unavailable JUSTYNA ., DR DA SILVA Consulting Unavailable HOY ., DR BOGGS Primary Care Unavailable JUSTYNA ., DR DA SILVA Attending Unavailable JUSTYNA ., DR DA SILVA Admitting Unavailable CHRISTY ., NOE Consulting Unavailable HOY ., DR BOGGS Primary [...] Unavailable HOY ., DR BOGGS Admitting Unavailable KARASIK, LAURA Consulting Unavailable HOY ., DR BOGGS Primary [...] JUSTYNA ., DR DA SILVA Consulting Unavailable STARLA, NGUYEN Attending Unavailable HOY, DELFIN M Primary Care Unavailable MORGAN FALK Attending Unavailable HOY, DELFIN M Primary Care Unavailable YTRON GUEVARA Attending Unavailable HOY, DELFIN M Primary Care Unavailable HOY, DELFIN M Primary Care Unavailable CLAUDINE FLORES Attending Unavailable HOY, DELFIN M Primary Care Unavailable SUSU DEL RIO Attending Unavailable TYRON GUEVARA Attending Unavailable HOY, DELFIN M Primary Care Unavailable MORGAN FALK Attending Unavailable HOY, DELFIN M Primary Care Unavailable TYRON GUEVARA Referring Unavailable TYRON GUEVARA Attending Unavailable HOY, DELFIN M Primary Care Unavailable NOE HARRISON Referring Unavailable HOY, DELFIN M Primary Care Unavailable HOY, DELFIN M Primary Care Unavailable TYRON GUEVARA Attending Unavailable ANDREA MITCHELL Attending Unavailable HOY, [...] oral solution (1 source) alpha-Adrenergic Agonist, Uncompetitive J-einvmv-M-aspartat e Receptor Antagonist, Sigma-1 Agonist Start: 09-08-2023 End: 09-15-2023 take 10 mL by mouth four times daily for cough and congestion Bromfed DM oral syrup 10 mL, Oral, QID for cough and congestion for 7 day(s), 280 mL, Refill(s) 0, [facility], 175, cm, 09/08/23 11:11:00 EST, Height/Length [...] q6hr, # 14 tab(s), Refills(s) 0, Pharmacy: [facility], 173, cm, 09/08/22 1:24:00 EST, Height/Length [...] Basophils/100 WBC (Bld) 0.7 % Normal 0.0-2.0 [facility] Comment on above: Order Comment: Order Added by Discern Expert. Result Comment: Ian ection date/time has been modified to: 16:41:00. Previous collection date/time: 16:48:00. Performed By: #### 2 851877, [id number], 1115259, 0434802 ####[facility] [address] [place] [address] Basophils/Leukocytes Auto (Bld) [Pure # fraction] 0.0 E9/L Normal 0.0-0.2 [facility] Comment on above: Order Comment: Order Added by Discern Expert. Result Comment: Ian ection date/time has been modified to: 16:41:00. Previous collection date/time: 16:48:00. Performed By: #### 2 371799, 62542899, 9475297, 2884312 ####[facility] [address] [place] [address] Eosinophils/100 WBC (Bld) 1.0 % Normal 0.0-8.0 [facility] Comment on above: Order Comment: Order Added by Discern Expert. Result Comment: Ian ection date/time has been modified to: 16:41:00. Previous collection date/time: 16:48:00. Performed By: #### 2 706761, 27146234, 1116003, 9230894 ####[address] [place] [address] Eosinophils/Leukocyte s Auto (Bld) [Pure # fraction] 0.1 E9/L Normal 0.0-0.5 [facility] Comment on above: Order Comment: Order Added by Discern Expert. Result Comment: Ian ection date/time has been modified to: 16:41:00. Previous collection date/time: 16:48:00. Performed By: #### 2 045800, 37033550, 0591392, 6963479 ####[address] [place] [address] Lymphocytes/100 WBC (Bld) 19.4 % Normal 14.0-50.0 [facility] Comment on above: Order Comment: Order Added by Discern Expert. Result Comment: Ian ection date/time has been modified to: 16:41:00. Previous collection date/time: 16:48:00. Performed By: #### 2 280136, 48808317, 1505562, 0653994 ####[facility] [address] [place] [address] Lymphocytes/Leukocyte s Auto (Bld) [Pure # fraction] 1.2 E9/L Normal 1.0-4.0 [facility] Comment on above: Order Comment: Order Added by Discern Expert. Result Comment: Ian ection date/time has been modified to: 16:41:00. Previous collection date/time: 16:48:00. Performed By: #### 2 318770, 10373076, 0082454, 8578009 ####[address] [place] [address] Monocytes/100 WBC (Bld) 8.8 % Normal 4.0-14.0 [facility] Comment on above: Order Comment: Order Added by Discern Expert. Result Comment: Ian ection date/time has been modified to: 16:41:00. Previous collection date/time: 16:48:00. Performed By: #### 2 351261, 77043382, 8659186, 8666806 ####[address] [place] [address] Monocytes/Leukocytes Auto (Bld) [Pure # fraction] 0.5 E9/L Normal 0.2-1.0 [facility] Comment on above: Order Comment: Order Added by Discern Expert. Result Comment: Ian ection date/time has been modified to: 16:41:00. Previous collection date/time: 16:48:00. Performed By: #### 2 287590, 52857263, 4444812, 1723555 ####[address] [place] [address] Neutrophils/100 WBC (Bld) 70.1 % Normal 36.0-75.0 [facility] Comment on above: Order Comment: Order Added by Discern Expert. Result Comment: Ian ection date/time has been modified to: 16:41:00. Previous collection date/time: 16:48:00. Performed By: #### 2 390140, 72843374, 8320890, 6539136 ####[facility] [address] [place] [address] Neutrophils/Leukocyte s Auto (Bld) [Pure # fraction] 4.2 E9/L Normal 2.0-7.5 [facility] Comment on above: Order Comment: Order Added by Discern Expert. Result Comment: Ian ection date/time has been modified to: 16:41:00. Previous collection date/time: 16:48:00. Performed By: #### 2 842313, 51315594, 7401716, 3988598 ####[facility] [address] [place] [address] BMPon 06-05-2023 Creatinine [Mass/Vol] 0.7 mg/dL Normal 0.5-1.3 [facility] Comment on above: Performed By: #### 2 928556, 53996977, 2773799, 5916742 ####[facility] [address] [place] [address] Urea nitrogen [Mass/Vol] 5 mg/dL Normal 5-21 [facility] Comment on above: Performed By: #### 2 500279, 82591441, 9354358, 0567887 ####[facility] [address] [place] [address] Urea nitrogen/Creatinine [Mass ratio] 7 No Units Low 10-20 [facility] Comment on above: Performed By: #### 2 205875, 51693422, 7553106, 5393377 ####[facility] [address] [place] [address] Anion gap [Moles/Vol] 9 mmol/L Normal 6-16 [facility] Comment on above: Performed By: #### 2 485710, 25262185, 4535375, 2955257 ####[facility] [address] [place] [address] Calcium [Mass/Vol] 9.3 mg/dL Normal 8.9-11.1 [facility] Comment on above: Performed By: #### 2 431541, 30108751, 2977046, 6038361 ####[facility] [address] [place] [address] Chloride [Moles/Vol] 110 mmol/L Normal 101-111 [facility] Comment on above: Performed By: #### 2 411423, 46093905, 5446057, 2102070 ####[facility] [address] [place] [address] CO2 [Moles/Vol] 26 mmol/L Normal 21-31 [facility] Comment on above: Performed By: #### 2 705049, 37178036, 8936084, 6969164 ####[facility] [address] [place] [address] Glucose [Mass/Vol] 106 mg/dL Normal 55-199 [facility] Comment on above: Result Comment: If t his glucose result represents a fasting glucose, interpretation should refer to the following reference range: 55-99 mg/dL Performed By: #### 2 982880, 36483513, 5027448, 8628432 ####[facility] [address] [facility] [place] [facility] [place] [address] Potassium [Moles/Vol] 3.9 mmol/L Normal 3.5-5.3 [facility] Comment on above: Performed By: #### 2 202800, 61532599, 3456534, 7017610 ####[facility] [address] [place] [address] Sodium [Moles/Vol] 141 mmol/L Normal 135-145 [facility] Comment on above: Performed By: #### 2 496971, 86505239, 7379490, 9896838 ####[facility] [address] [place] [address] CBC w/ Auto Diffon 3 Erythrocyte distribution width (RBC) [Ratio] 13.9 % Normal 10.9-14.2 [facility] Comment on above: Result Comment: Ian ection date/time has been modified to: 16:41:00. Previous collection date/time: 16:48:00. Performed By: #### 2 300642, 35375765, 9564722, 6661028 ####[facility] [address] [place] [address] Hematocrit (Bld) [Volume fraction] 38.4 % Normal 34.0-46.0 [facility] Comment on above: Result Comment: Ian ection date/time has been modified to: 16:41:00. Previous collection date/time: 16:48:00. Performed By: #### 2 149341, 02676597, 8649239, 6334723 ####[facility] [address] [place] [address] Hemoglobin (Bld) [Mass/Vol] 12.8 g/dL Normal 12.0-16.0 [facility] Comment on above: Result Comment: Ian ection date/time has been modified to: 16:41:00. Previous collection date/time: 16:48:00. Performed By: #### 2 296691, 47123973, 7173034, 5208536 ####[facility] [address] [place] [address] MCH (RBC) [Entitic mass] 27.6 pg Normal 27.0-34.0 [facility] Comment on above: Result Comment: Ian ection date/time has been modified to: 16:41:00. Previous collection date/time: 16:48:00. Performed By: #### 2 063007, 59505990, 7462482, 4117318 ####[facility] [address] [place] [address] MCHC (RBC) [Mass/Vol] 33.3 g/dL Normal 31.4-36.0 [facility] Comment on above: Result Comment: Ian ection date/time has been modified to: 16:41:00. Previous collection date/time: 16:48:00. Performed By: #### 2 551896, 79226259, 7834832, 0019231 ####[facility] [address] [place] [address] MCV (RBC) [Entitic vol] 82.7 fL Normal 80.0-100.0 [facility] Comment on above: Result Comment: Ian ection date/time has been modified to: 16:41:00. Previous collection date/time: 16:48:00. Performed By: #### 2 171519, 64216942, 9630608, 6902068 ####[address] [place] [address] Platelet mean volume (Bld) [Entitic vol] 7.8 fL Normal 6.4-10.8 [facility] Comment on above: Result Comment: Ian ection date/time has been modified to: 16:41:00. Previous collection date/time: 16:48:00. Performed By: #### 2 519306, 33751643, 2468093, 4328993 ####[address] [place] [address] Platelets (Bld) [#/Vol] 271.0 E9/L Normal 150.0-500.0 [facility] Comment on above: Result Comment: Ian ection date/time has been modified to: 16:41:00. Previous collection date/time: 16:48:00. Performed By: #### 2 449659, 47453095, 8836927, 4067844 ####[address] [place] [address] RBC (Bld) [#/Vol] 4.6 E12/L Normal 4.3-5.9 [facility] Comment on above: Result Comment: Ian ection date/time has been modified to: 16:41:00. Previous collection date/time: 16:48:00. Performed By: #### 2 783129, 02571371, 5699238, 4200572 ####[facility] [address] [place] [address] WBC corrected for nucl RBC Auto (Bld) [#/Vol] 6.1 E9/L Normal 4.0-11.0 [facility] Comment on above: Result Comment: Ian ection date/time has been modified to: 16:41:00. Previous collection date/time: 16:48:00. Performed By: #### 2 338180, 78125136, 8038973, 6183692 ####[facility] [address] [place] [address] CHEMISTRYOrdered By: SYSTEM SYSTEM on 06-05-2023 Anion gap [Moles/Vol] 9 mmol/L Normal 6 - 16 mEq/L F [facility] Remisol Calcium [Mass/Vol] 9.3 mg/dL Normal 8.9 - 11. 1 mg/dL [facility] Remisol Chloride [Moles/Vol] 110 mmol/L Normal 101 - 1 11 mmol/L [facility] Remisol CO2 [Moles/Vol] 26 mmol/L Normal 21 - 31 mmol/L [facility] Remisol Creatinine [Mass/Vol] 0.7 mg/dL Normal 0.5 - 1.3 mg/dL [facility] Remisol GFR/1.73 sq M.predicted among non-blacks MDRD (S/P/Bld) [Vol rate/Area] 126 mL/min/1.73 m2 Normal >=59mL/min/1. 73 m2 [facility] Chem S Comment on above: Interpretive Data: C hronic kidney disease could be indicated at eGFR's of less than 60 mL/min/1.73m2. Kidney failure is indicated at less than 15 mL/min/1.73m2. Glucose [Mass/Vol] 106 mg/dL Normal 55 - 199 mg/dL [facility] Remisol Comment on above: Interpretive Data: I f this glucose result represents a fasting glucose, interpretation should refer to the following reference range: 55-99 mg/dL Potassium [Moles/Vol] 3.9 mmol/L Normal 3.5 - 5.3 mmol/L [facility] Remisol Sodium [Moles/Vol] 141 mmol/L Normal 135 - 145 mmol/L [facility] Remisol Urea nitrogen [Mass/Vol] 5 mg/dL Normal 5 - 21 mg/dL [facility] Remisol Urea nitrogen/Creatinine [Mass ratio] 7 mg/mg Low 10 - 20 [facility] [place] CT Head or Brain w/o Contras [...] DO Transcribed by: KG Technologist: KIRSTIE Andrea [facility] Consent for Treatmenton 05-25 Consent for Treatment [id number] #1.00TIFF [facility] Discharge Instructionson Discharge Instructions [id number] #1.00TIFF [facility] ED Clinical Summaryon 2022 ED Clinical Summary [place] [id number] ED Clinical Summary Person Information Name: ROQUE PIERSON [facility] Age: 22 Years : 2000 Sex: Female Language: Qatari PCP: Delfin Urbano MD Marital Status: Single [...] 06/05/2023 18:41:46 06/05/2023 18:41:46 06/05/2023 18:41:46 ADDRESS: [id number] [place] [facility] [place] [id number] [facility] NOTES: MEDICAL INFORMATION: Prescriptions Given: Medications to [...] up: With: Address: When: Delfin Urbano [address] [facility], [address] [place] [phone] Business (1) In 3 days 06/08/2023 Comments: [...] or worsening symptoms. DIAGNOSIS: Headache; Nauseous Normal [facility] ED Note-Physicianon 06-05-20 ED Note-Physician Basic Information Time Seen: Diogo TEE, Víctor Cintron 06/05/2023 15:50 Chief Complaint c/o headache and [...] PULM: Lungs clear to auscultation in all wisodm. No wheezes, rales, or rhonchi. No conversational [...] and Complexity of Problems Differential Diagnosis: [] [facility] Data External documents reviewed: Not applicable [...] eGFR Influenza A&B Ag Rapid COVID Antigen ([facility] U Beta Hcg Qual Disposition Plan Patient Discharge Condition Stable Discharge Disposition To home Discharge Prescription List Prescriptions No active prescription medications Follow-up With When Contact Information Delfin Urbano In 3 days 06/08/2023 EDT [address] [place] [id number]- Business (1) Additional Instructions: Call the office [...] or worsening (more content not included)... Normal [facility] Comment on above: Result Comment: Elec tronically Signed By: Víctor Lind PA-C\.br\Date and Time Signed: 06/05/23 18:29 EDT\.br\Electronically Co-Signed By: Fercho Jaime DO\.br\Date and Time Co-Signed: 06/05/23 19:40 EDT ED [...] with your condition: Managing pain ? Take cotp-wkf-iikttrs and prescription medicines only as told by [...] Reviewed: 01/09/2022 Elsevier Patient Education ? 2022 [employer] Normal [facility] ED Patient Summaryon 023 ED Patient Summary [address] [address] Patient Discharge Instructions Person Information Name: ROQUE PIERSON Age: 22 Years Arrival Date: 06/05/2023 15:20:08 Discharge Diagnosis: Headache; Nauseous Primary Care Physician: Delfin Urbano MD Provider Information Primary Provider: Fercho Jaime DO Advanced Methods Study Analyst:Víctor Lind PA-C The exam and treatment you received in the Emergency Department were for an urgent problem and are not intended as complete care. It is important that you follow up with a doctor, nurse practitioner, or physician?s bindery library technical assistant for ongoing care. If your symptoms become worse or you do not improve as expected and you are unable to reach your usual health care provider, you should return to the Emergency Department. We are available 24 hours a day. ROQUE PIERSON has been given the following list of patient education materials, prescriptions and follow-up instructions: Follow-up Instructions: With: Address: When: Delfin Urbano [address] [place] [address], [facility] [place] [address] Business (1) In 3 days [...] opioids can be used to help relieve swaetulc-cq-rfsphm pain and are often prescribed following a [...] ? Safe (more content not included)... Normal [facility] HEMATOLOGYOrdered By: SYSTEM SYSTEM on 06-05-2023 Basophils/100 [...] 6.1 E9/L Normal 4.0 - 11.0 E9/L [facility] HemeAutoSS Comment on above: Result Comment: Ian ection date/time has been modified to: 16:41:00. Previous collection date/time: 16:48:00. Influenza A&B Agon Influenzae A Ag Negative Normal Negative [facility] Comment on above: Performed By: #### 2 846846, 0973284, 9536466, 1711479, 05834795, 9981992, 3306794 #### [facility] Laboratory [address] [place] [address] Influenzae B Ag Negative Normal Negative [facility] Comment on above: Result Comment: Test sensitivity and specificity vary for age group, specimen type, antigen types, and prevalence of disease. Test results must be evaluated in conjunction with other clinical data available to the physician. Individuals who received nasally administered Influenza A vaccine may have positive test results up to 3 days after vaccination. Performed By: #### 2 920251, 5340996, 5502338, 4609854, 29770131, 5065927, 0593322 #### [facility] Laboratory [address] [place] [address] MICRO OTHER TESTSOrdered By: Kirsten Faustin on 06-05-2023 Influenzae A Ag Negative (06/05/23 4:52 PM) Normal Negative [facility] Man Sero Influenzae B Ag Negative 1 (06/05/23 4:52 PM) Normal Negative [facility] Sero Comment on above: Interpretive Data: T [...] NEG Ctl Pass (06/05/23 4:52 PM) Normal [facility] Man Sero Rapid COV Int POS Ctl Pass (06/05/23 4:52 PM) Normal [facility] Sero SARS-CoV+SARS-CoV-2 (COVID-19) Ag IA.rapid Ql (Resp) Not Detected 24 (06/05/23 4:52 PM) Normal Not Detected [facility] Man Sero Comment on above: Interpretive Data: Libia lubin [employer] Veritor System for Rapid Detection of SARS-CoV-2 [...] terminated or revoked sooner. Rapid COVID Antigen ([facility]on 06-05-2023 Rapid COV Int NEG Ctl Pass Normal Fis her [facility] Comment on above: Performed By: #### 2 718886, 2024635, 8654014, 6985976, 36322013, 7855899, 7046391 #### [facility] [address] [place] [address] Rapid COV Int POS Ctl Pass Normal Fis her [facility] Comment on above: Performed By: #### 2 737452, 4197803, 2341021, 6621749, 82154812, 8837232, 2593551 #### [facility] [address] [place] [address] SARS-CoV+SARS-CoV-2 (COVID-19) Ag IA.rapid Ql (Resp) Not detected Normal Not Detected [facility] Comment on above: Result Comment: The 404 Found!? System for Rapid Detection of SARS-CoV-2 is [...] or revoked sooner. Performed By: #### 2 891455, 2401987, 6207595, 4251819, 25303271, 5080793, 6474444 #### [facility] [address] [place] [address] SEROLOGYOrdered By: Kirsten amor on 06-05-2023 HCG.beta subunit (U) [Moles/Vol] Negative Normal [facility] [place] [place] Sero U BetaHcg Qualon 06-05-2023 HCG.beta subunit (U) [Moles/Vol] Negative Normal [facility] Comment on above: Performed By: #### 2 256131, 8370053, 6896766, 9859425, 30129334, 4637031, 0354282 #### [facility] [address] [place] [address] eGFRon 06-05-2023 GFR/1.73 sq M.predicted among non-blacks MDRD (S/P/Bld) [Vol rate/Area] 126 mL/min/1.73 m2 Normal >=59 [facility] Comment on above: Order Comment: Order added by Discern Expert. Result Comment: Foam Rubber Fabricator emil kidney disease could be indicated at eGFR's of less than 60 mL/min/1.73m2. Kidney failure is indicated at less than 15 mL/min/1.73m2. Performed By: #### 2 262782, 59668741, 1943030, 2515688 ####[facility] [address] [place] [address] Cult,Urineon 03-25-2023 Cult,Urine Specimen Description .URINE, MIDSTREAM Culture NO SIGNIFICANT GROWTH Report Status FINAL 03/25/2023 Normal [facility] Comment on above: Performed By: #### C DP CP #### [facility] [address] [place] [address] Farm Truck Driver: Alfred Chirinos MD Urinalysis, Routineon 2022 Bilirubin, SemiQt,Ur Negative Normal NEG [facility] Comment on above: Performed By: #### U A, UMICAO #### [facility] [address] [place], [place] [id number] Farm Truck Driver: Alfred Chirinos MD Blood, Urine Negative Normal NEG [facility] Comment on above: Performed By: #### U A, UMICAO #### [facility] [address] [place], [place] [address] Farm Truck Driver: Alfred Chirinos MD Clarity (U) Clear Normal CLEAR [facility] Comment on above: Performed By: #### U A, UMICAO #### [facility] [address] [place], [place] [id number] Farm Truck Driver: Alfred Chirinos MD Color (U) Yellow Normal YEL [facility] Comment on above: Performed By: #### U A, UMICAO #### [facility] [address] [place], [place] [id number] Farm Truck Driver: Alfred Chirinos MD Comment Normal [facility] Comment on above: Performed By: #### U A, UMICAO #### [facility] [address] [place] [address] Farm Truck Driver: Alfred Chirinos MD Glucose Ql (U) Negative Normal NEG [facility] Comment on above: Performed By: #### U A, UMICAO #### [facility] [address] [place] [address] Farm Truck Driver: Alfred Chirinos MD Ketones Ql (U) TRACE Abnormal NEG [facility] Comment on above: Performed By: #### U A, UMICAO #### [facility] [address] [place], [place] [id number] [employer]: Alfred Chirinos MD Leukocyte esterase Test strip Ql (U) 1+ Abnormal NEG [facility] Comment on above: Performed By: #### U A, UMICAO #### [facility] [address] [place] [address] [employer]: Alfred Chirinos MD Nitrite,Ur Negative Normal NEG [facility] Comment on above: Performed By: #### U A, UMICAO #### [facility] [address] [place] [address] [employer] Driver: Alfred Chirinos MD PH,Ur 6.5 Normal 5.0-8.0 [facility] Comment on above: Performed By: #### U A, UMICAO #### [facility] [address] [place] [address] [employer] Driver: Alfred Chirinos MD Protein Ql (U) TRACE Abnormal NEG [facility] Comment on above: Performed By: #### U A, UMICAO #### [facility] [address] [place] [address] [employer] Driver: Alfred Chirinos MD Spec. [place],Ur 1.015 Normal 1.005-1.030 [facility] Comment on above: Performed By: #### U A, UMICAO #### [facility] [address] [place] [address] [employer] Driver: Alfred Chirinos MD Urobilinogen,Ur Normal Normal 0.0-1.0 [facility] Comment on above: Performed By: #### U A, UMICAO #### [facility] [address] [place] [address] [employer] Driver: Alfred Chirinos MD Urinalysis,Microon 3 ----- Normal [facility] Comment on above: Performed By: #### U A, UMICAO #### [facility] [address] [place] [address] [employer]: Alfred Chirinos MD Bacteria RARE Abnormal NONE [facility] Comment on above: Performed By: #### U A, CHRISO #### [facility] [address] [place], [place] [id number] [employer] Driver: Alfred Chirinos MD Urine RBC's 0 TO 2 Normal 0-2 [facility] Comment on above: Performed By: #### U A, CHRISO #### [facility] [address] [place], [place] [id number] [employer] Driver: Alfred Chirinos MD Urine WBC's 0 TO 2 Normal 0 [facility] Comment on above: Performed By: #### U A, CHRISO #### [facility] [address] [place] [address] [employer] Driver: Alfred Chirinos MD CBC with Diffon 01-03-2023 Abs. Basophil 0.00 k/uL Normal 0.0-0.2 [facility] Comment on above: Performed By: #### C DP, CP #### [facility] [address] [place] [id number] [employer] Driver: Alrfed Chirinos MD Abs.Neutrophil (Seg) 5.40 k/uL Normal 2.5-7.0 [facility] Comment on above: Performed By: #### C DP, CP #### [facility] [address] [place], [place] [id number] [employer] Driver: Alfred Chirinos MD Auto Diff Performed YES Normal [facility] Comment on above: Performed By: #### C DP, CP #### [facility] [address] [place], [place] [id number] [employer] Driver: Alfred Chirinos MD Basophils/100 WBC (Bld) 0 % Normal 0-2 [facility] Comment on above: Performed By: #### C DP, CP #### [facility] [address] [place], [place] [id number] [employer] Driver: Alfred Chirinos MD Eosinophils (Bld) [#/Vol] 0.20 10*3/uL Normal 0.0-0.4 [facility] Comment on above: Performed By: #### C DP, CP #### [facility] [address] [place] [address] [employer]: Alfred Chirinos MD Eosinophils/100 WBC (Bld) 2 % Normal 0-5 [facility] Comment on above: Performed By: #### C DP, CP #### [facility] [address] [place] [address] [employer] Driver: Alfred Chirinos MD Erythrocyte distribution width (RBC) [Ratio] 13.1 % Normal 12.1-15.2 [facility] Comment on above: Performed By: #### C DP, CP #### [facility] [address] [place] [address] [employer] Driver: Alfred Chirinos MD Hematocrit (Bld) [Volume fraction] 32.8 % Low 36-46 [facility] Comment on above: Performed By: #### C DP, CP #### [facility] [address] [place] [address] [employer] Driver: Alfred Chirinos MD Hemoglobin (Bld) [Mass/Vol] 11.2 g/dL Low 12.0-16.0 [facility] Comment on above: Performed By: #### C DP, CP #### [facility] [address] [place] [address] [employer] Driver: Alfred Chirinos MD Lymphocytes (Bld) [#/Vol] 1.90 10*3/uL Normal 1.0-4.8 [facility] Comment on above: Performed By: #### C DP, CP #### [facility] [address] [place] [address] [employer] Driver: Alfred Chirinos MD Lymphocytes/100 WBC (Bld) 23 % Normal 15-40 [facility] Comment on above: Performed By: #### C DP, CP #### [facility] [address] [place], [place] [id number] [employer] Driver: Alfred Chirinos MD MCH (RBC) [Entitic mass] 30.8 pg Normal 26-34 [facility] Comment on above: Performed By: #### C DP, CP #### [facility] [address] [place] [id number] [employer] Driver: Alfred Chirinos MD MCHC (RBC) [Mass/Vol] 34.0 g/dL Normal 31-37 [facility] Comment on above: Performed By: #### C DP, CP #### [facility] [address] [place] [address] [employer] Driver: Alfred Chirinos MD MCV (RBC) [Entitic vol] 90.4 fL Normal 80-100 [facility] Comment on above: Performed By: #### C DP, CP #### [facility] [address] [place] [address] [employer] Driver: Alfred Chirinos MD Monocytes (Bld) [#/Vol] 0.80 10*3/uL Normal 0.0-1.0 [facility] Comment on above: Performed By: #### C DP, CP #### [facility] [address] [place] [address] [employer] Driver: Alfred Chirinos MD Monocytes/100 WBC (Bld) 9 % High 4-8 [facility] Comment on above: Performed By: #### C DP, CP #### [facility] [address] [place] [address] [employer] Driver: Alfred Chirinos MD Neutrophil (Seg) 66 % Normal 47-75 [facility] Comment on above: Performed By: #### C DP, CP #### [facility] [address] [place] [address] [employer] Driver: Alfred Chirinos MD Platelets (Bld) [#/Vol] 239 10*3/uL Normal 140-450 [facility] Comment on above: Performed By: #### C DP, CP #### [facility] [address] [place] [address] [employer] Driver: Alfred Chirinos MD RBC (Bld) [#/Vol] 3.63 10*6/uL Low 4.0-5.2 [facility] Comment on above: Performed By: #### C DP, CP #### [facility] [address] [place] [address] [employer] Driver: Alfred Chirinos MD WBC (Bld) [#/Vol] 8.3 10*3/uL Normal 4.5-13.5 [facility] Comment on above: Performed By: #### C DP, CP #### [facility] [address] [place] [address] [employer] Driver: Alfred Chirinos MD Glucose Heather Scr 50gon 2022 Glucose [Mass/Vol] 98 mg/dL Normal 70-135 [facility] Comment on above: Performed By: #### C DP, CP #### [facility] [address] [place], [place] [phone] [employer] Driver: Alfred Chirinos MD Glu Administered via Glucola Normal [facility] Comment on above: Performed By: #### C DP, CP #### [facility] [address] [place] [address] [employer] Driver: Alfred Chirinos MD US PREG ANATOMY SINGLEon [...] JULIUS RICKS Date: 2022-12-08 22:36 Normal [facility] AFP MATERNAL FOR SPINA BIFID Aon 12-07-2022 AFP MoM 1.38 Normal [facility] Comment on above: Performed By: #### A FPMAT #### [facility] [address] [place] [address] [address] Tasha Whalen AFP Value 88.5 ng/mL Normal [facility] Comment on above: Performed By: #### A FPMAT #### [facility] [address] [place] [address] [address] Tasha Whalen AFP, Serum for Spina Bifida Report Normal [facility] Comment on above: Performed By: #### A FPMAT #### [facility] [address] [place] [address] [address] Tasha Whalen Comment Comment Normal [facility] Comment on above: Result Comment: Nakia Lopez, Ph.D., [facility] Director . References: Available Upon Request. . Multiples Of Median Cutoffs For AFP Elevations Contreras 2.5 Black 2.8 IDD 2.0 Twins 4.5 Abbreviation Definitions IDD - Insulin Dep Diabetes OSBR - Open Spina Bifida Risk . For further inquiries contact [facility] at [phone]. . This test was developed and its performance characteristics determined by [employer]. It has not been cleared or approved by the Food and Drug Administration. Performed By: #### A FPMAT #### [facility] [address] [place] [address] [address] Tasha Jackson Age Collection Date 21.0 weeks Normal [facility] Comment on above: Performed By: #### A FPMAT #### [facility] [address] [place] [address] Dr. Tasha Whalen Gestat, Age Based on Ultrasound Normal [facility] Comment on above: Result Comment: 17.0 on 11/07/2022 Recalculations are not recommended when gestational dating by LMP and ultrasound are within 10 days. Performed By: #### A FPMAT #### [facility] [address] [place] [address] Dr. Tasha Whalen Insulin Dep Diabetes No Normal [facility] Comment on above: Performed By: #### A FPMAT #### [facility] [address] [place] [address] Dr. Tasha Whalen Interpretation Comment Normal [facility] Comment on above: Result Comment: Inte rpretation: [...] Customer Services to discuss available options. The [employer] recommends amniocentesis be offered to women age 35 and older. Performed By: #### A FPMAT #### [facility] [address] [place] [address] Dr. Tasha Whalen [age] Normal [facility] Comment on above: Performed By: #### A FPMAT #### [facility] [address] [place] [address] [address] Tasha Whalen Multiple Gestation No Normal [facility] Comment on above: Performed By: #### A FPMAT #### [facility] [address] [place] [address] [address] Tasha Whalen OSBR Risk 1 [place] [address]10 [facility] Comment on above: Performed By: #### A FPMAT #### [facility] [address] [place] [address] [address] Tasha Whalen PDF . [facility] Comment on above: Performed By: #### A FPMAT #### [facility] [address] [place] [address] [address] Tasha Whalen Race [facility] Comment on above: Performed By: #### A FPMAT #### [facility] [address] [place] [address] [address] Tasha Whalen Test Results: Negative [facility] Comment on above: Performed By: #### A FPMAT #### [facility] [address] [place] [address] [address] Tasha Whalen Coding Summary.on 12-03-2022 Coding Summary. CD:[id number] Ww+PGhlYWQ+MS2QCZYyP 63ngFIghT4cY2VOGZsQM ywgQVBQTElOSyIgbmFtZ T7hvCJzUYCt IC8+FW0yICAzKieakCEe z4U1yLO7L39vds3tJKnh hLK3DAKoJpYgthqpz6nt zFc2HRcmItybBvGr MPJlqG42YYW9zX88Jr85 rNEovLZov7cecQa6BxRs WMFiMFC0cMaiTWdej3Ca BXUkQ05iwOQcw2P1 IGNvbGxhcHNlOyBlbXB0 qZ7oYBpcrzbaq8cyrltp Xtt0ib95vPAxm4P6mOJ3 O9WbocJ2AWNplUJt UhupeVDUwY2ljpyjj0mq lzltOjYtQRDmDYm4ABy4 VSRqaQlvFwKyMI24DUV6 NFRwwlZvZ8YsCSTg fQwsJxY9c9O3Dz7KB1RW BeefN7PAOYSJEIeghNF+ WV75zq19D5LxGdjwEfv1 NWQaOCG2yWL5fO6p YPRgDJxys6R2fHP4U8Tm csPkax3wk4uzWKRzCUzu S43grGVvi9R8HDIfpYI0 AUOdqUzbTcOpiO66 Oyc+MEMpbGsai1ObMrgw g8nsc0dpoEs3SmxmUNXj dmRhsBuzXMU3x8UrJg2q WODouZY5kUH0pP5m UtRcTkF7IWerK769WmDg tSXeOvrgW13wZ9RcyJX+ IQAvMxv7ZGRrsRaoXW4s A6IdWAShxvbomBFo lMbjMB9mRJFuognkZFDy sK1uYNKzJ3v5HhPkZzL2 OYyuR6QfWEAawitsZi78 kM6lZjGdMcP5KFxw F9PvgnN7UEGlaZOyITjg VJA3W61vd6K8KRBpFBRb THN0mFD8aO4zxAstxsrd bGVmdDsgdmVydGlj CDdyFXtyH836KPOyvAch PkNvZGluZyBEYXRlOiAg MDQvMTEvMjAyMzwvdGQ+ PDVaWKS8cKbeUQKg dCFbCMqdBe8lxGghwMzw CK5kEUApimarQGRzxM0t IINtxFDzrItfVA4jTNAg ctqpy374TkBcMBA0 GTPlyNDxE0AyiL9uRhBn MAGvHWJuX2GpzMFdBDze O006WRczFxF5SSZrgyQs V9DrRJNleHvsEaF6 w4Y9Um1Pn4HffistD5Yt tRVoHtCvDhdrFEb2M8Ss PjwvdHI+XR90EWMxFK29 EZm9TXK3iEthXVue IGBdO8ZobI2pShGyDKVa ZGRkOyc+PHRhYmxlIHdp ZHRoPScxMDAlJyBzdHls CF6zPw0uZIKgEQZk aDaabMJsQaMla0tbKGPk SHqoQZ8osRsrD7IdcUA4 TVLxi4b8Qi98R80vJ1Ax dXA+VQSqlLC9bCR0 bJ3mEiJdJzX5NXezS571 TyKtyGJoUajxm1vrw1oe wQv3XcC1JFBzooJeaAcz BGF2u5YoBy70W20w IHdpZHRoPSIxNSUiIHZh lNiyez6cbZ6gCa3+PGNv oHF4aGT6bM1uShIlDmQ9 KTxbI558KpHbqWMj Okqie5ixq0irvJc5OxEm LUZozsRvpFtdXHG5l2Al Gp01K8MvrFunq9ZlUux5 fg69bSAvz4Y9yDX1 B1YlTRIorjqadZMaiGev OF6sIAFoodcsVOQwwP0e BIFvV0n6DmUaFuE9OKop C8WzcvQ2BGBcfKDv AGYnaGZGfA8jfmwue2so yfxdOaDvSMXtBNf0AMn6 GQIemApbZbEbVOY4GwV0 FXN1fREanM5teQdx loofbD9wNlj+JQF5tXFl uUPWCT8yGxifhRA+PHRk RVL3fZsxCUcySLAyyW1t OHVhX0t0EaEtBfL9 BRtfN4KdozG4UEExtCGt VWDjlLKNxZ6olythv5ev vqrlSqHoSIIvPVy6ALc0 LWFsaWduOiBsZWZ0 PwS3ZZN2cWDojK2mtZeq jxbpxY9vHwf+QmlydGgg DZT3HGo4R9FeUwo7CZPg nKqvIY0apHRbNLfz Mg1thGcbgHxjRR6dBYOj cbbiq886IrVsa4rlDHGt oPFjEAarLUK9P94my7Q9 CYVvUPFiTNB7hUX5 nZ3xhDpwedabhQYktRjn uiDxiCbeGFreGKahR344 JCIdwEmvOpAiYEg9K4Ep Zsc5DSYtpXyrMY3e yYQxUEzvId6hpTpgzYov JO5hUMOkmszyp206XeMm z8taYXSbtPIeKPqeCTM7 M80ar4X3XNDgFGWd LCA2xWQ6gA3pvErwmtcl bGVmdDsgdmVydGljYWwt EZaiF010EDEimSyyWbPz jJy2B8GxGhk8ZBNx yEjaIR0orKXpMLadJj1t fPzcxHqkDV3oLSLyqqpt n869TaGoz1cdCKUjxDGb FBcsUQX3M18bf6J2 NERlIKYwDLF9oCI0vP9c bGlnbjogbGVmdDsgdmVy bNroIRkaJFxnF081ZGHi cDsnPlBhdGllbnQg BTvhSWy8C8JuWoloxUC+ BC82VOHwXN09zXXnbGAf r8hoqUw2ExSsMUPyZDM2 nQqiPYqzm7LdQXHm W90veAUnp5H5JWForIyf pNBfMzObpPN3cD6dOTak ujcwj2mbzkosZdaff2tc ns85gQ57P07dMNsd ZHRoPSIzMCUiIHZhbGln gq0jpU0qEk0+PGNvbCB3 kRZ6oU7rOAQyHhB6ZGmt F651SdYhbJAbVwsf a0pej7fveTx0WjC2WGNo iuChsZcbORZ1d3MxIh56 E98kKIlyCBEyDJWzSCXw OWZpyHxzdl4kvG6q Ii8+SJXcwLR8gHT5nP8p EkJiPwV0JBswS842FnEe jIEpBjcoI23mU9YffWV+ CCMfBjs1TJPjiTeg FR6saGOrDRjzIu6cAFS9 AgPxZoWvBQgcH4VsMLHu zdexrtgkqFY1YVByURJb kH84Gl8ifIozODFj qTZLuM3idttju3sutrus NdXcKZHiVJs8KEn6UOVy wAtlIgDaAQA8DzV8DIP0 lOOysF3gqTlcygnp wU7hM3NrKZYqgezqNk30 tM3vUyNqBqA8HHtuFdz+ S0vYB4GZPXJtATREFcCK TkEgTTwvdGQ+PHRk JUD8nKbkXEssHOQgvF9l XPHoA0x0NrUxJeI4PQvm A9FrTKIashdxPx13iM6z LfYxVfI2QPmkR3Io pyL5RQSmgMHbCTaiCQZ8 L71rr7Y3EDSiIFJnJTF1 xHK7cV0nrBpdmyktbANu dDsgdmVydGljYWwt OAptO140MAPojCawFvHc UiW6KiYyWAT1K8WfAtx4 QNTclShfJI6kfKCjVHjo Kj0rrMzvdUorUL1l ZACasfzyDYPqmK4bPDEb dWHrfCijVD2bHRNzrcwc o071XpZpKKK6AEPyoZSd F3GatD2lFvFhQNNw TPGkO1NkxNPfCEdnD075 DLguZpE3IRNxmgOlD4Zh FVGvsEltZiS3r3W3Ul3z MSBZZWFyczwvdGQ+ XKBhUCA5nXtqUUnhBXQo tL0tXDRnN4r9CxGpVoZ9 IXqsR5VfQNJwfkuePj47 lB2dJsHoTzQ5ZKqk Z9OkhdQ9TSAzjJLqFBpg ZJW6R95lw7P0JAOzLFUa NJG2dCX4pQ7nyFjeyppv bGVmdDsgdmVydGlj RSowHUjnE289SWVlgYdw PkZlbWFsZTwvdGQ+PHRk BQH9bFwyPZewVAIumK2f FWKuS8m5XsPbTpE8 HGkrI7GnOTIkcdofUa19 eQ6lPoSqNsZ4BEwmS1Da zbS5AZYafCQvBQhzCMU1 S08hy5P5PMCmSWUk RIK7kAZ5tH4edPhyxbne bGVmdDsgdmVydGljYWwt VUvqV782SCCouYnnZz7R IFRyaWFnZTwvdGQ+ VA45qt59L1QiXxlxWrq8 UFKoYLN8yNX4lL4yHFQs RCnkq8R7zDM3C2XmltQl if1oe5vxNKEjWCks I15ysGAgx8I6IMJajAZ8 CLCgePanQjSwsG74Jfo+ DNXqwQlzc6SbSkqrz5xw c1yndLn2NgVwJEOx krSejThzQAQ0q4RcNm35 K94tFUbkOHVjRMCfNPQr RDIfjDiyaz0gzQ7qNs9+ IZDbiTS2pBV0tW6f MzOsKiA7HSegZ627XdAb mVIfVtcre4qyx4qqhLf9 IjIwJSIgdmFsaWduPSJ0 p1NtLt13P2DhrTqh e3MxYnz2ds06xSEyk8S9 mZJ5Z1YzWHQqwkbdoZXm hAsnXL2jHMKuutxdDYDr kB7oBHYsT9b1LvVt YrZ2NLpmN4HtifM0LGTe mHBrVAKcdEAFnP2kqxgj t9kkddshOcBpPEBkJTz8 GPt3IYSdjXiiYmJa WAF2BiW2LKI0yPLlbH5b xDfgkzlxdD4rRjc+UGh5 l0mpkDHiPM2ilUV1IK88 MT57dTGzc8L6bVW1 R9HfKDJdztjzvyinbPW5 DSUzSTIieE00Wn1zdLzm Xb8bTZNyAMN8LFXlaKYb B4NytT0kSgWzCOKu DNGuK1DkxPXeSWhfD110 OPcnQbE1AHRnrsJxX6Fv OTIloFutWfC9x6F8Ai6Z AD31TP67LA42xGZo n9W7kOH6S8HqAARhvxll frjvrDE3YUSiNLOvsO82 Jj0ncMmhLe2cKSQvGPL5 XXCvbKAvI5KuzW3g AuHdEZFcQUVqD2RscJMp BRfeE059FAvdRhU5FTFd bfNyL7GkYEYlhIxgHvY5 v2Q1Rn6FEp43EK98 HR19xGRfs0E7ePN6H8Nc WECesapvnlehxOA5LWWu HTPtlA95Bq5mbHatAy6o EJJvWNG1WLPcmJXk F2GwzJ3zCxRiXXTgZMOg N2MmrFKhPCxgS788YGsz SoH6LJTjkjHgC1SzXTNv dWazQqR5t1X9Il9U ZGiqlns7J0XuMwfklHT+ RI30OQHwXM80bJKxaSKw p4cyiQd7XlLyCBDrBLH6 iRysFXydi5JgKUOc X48lmEHy (more content not included)... Normal [facility] Nursing Assessmenton 023 Nursing Assessment [id number] 3#1.00CD:[address] [facility] Discharge Instructionson Discharge Instructions [id number] 0#1.00CD:[address] [facility] Inpatient Clinical Summaryon 11-26-2022 Inpatient Clinical Summary [address] [place] [address] Clinical Summary Person Information Name: ROQUE PIERSON/[place] Age: 22 Years : 2000 Sex: Female PCP: Delfin Urbano MD Marital Status: Single Race: White Ethnicity: Non- or Language: Qatari Visit Id: Visit Reason: LT / RT/ LOWER ABD PAIN Speciality: Acuity: Obs Enc Type: OB Triage Med Service: Obstetrics Arrival: 11/25/2022 18:17:16 Discharge: 11/25/2022 22:27:00 Dispo Type: Home (Routine DC) Address: [address] [place] [phone] Provider Notes: Diagnosis: Problems Active (11/25/2022) Smoking [...] up: With: Address: When: Your doctor in [place] [phone] In 3 days 11/28/2022 Comments: Call for [...] Education Information: Round Ligament Pain; Morning Sickness, Mgww-aj-Ovov; Second Trimester of , Cchv-rz-Acpz; Abdominal Pain During , Jnxb-nt-Asav Normal [facility] Inpatient Patient Summaryon 11-26-2022 Inpatient Patient Summary [place] [address] Patient Discharge Instructions PERSON INFORMATION Name: ROQUE [...] up: With: Address: When: Your doctor in [place] [phone] In 3 days 11/28/2022 Comments: Call for [...] 0. Last Dose: Next Dose: Pharmacy Information: [facility] PATIENT EDUCATION INFORMATION Instructions: Round Ligament [...] until the pain goes away. ? Take acdv-wpj-qoacmai and prescription medicines only as told by [...] you uri (more content not included)... Normal [facility] Insurance Correspondenceon 0 11-26-2022 Insurance Correspondence [id number] 5#1.00CD:127 [facility] Consent for Treatmenton Consent for Treatment [id number] #1.00CD:127 [facility] [employer] Video[employer] Video Yes Patient Avoiding Infections in the Hospital Normal [facility] UA With Cult Reflexon 2022 Bacteria LM Ql (Urine sed) TRACE Normal Trace [facility] Comment on above: Performed By: #### 1 [id number] #### [facility] [address] [place] [address] Bilirubin Ql (U) Negative Normal Negative [facility] Comment on above: Performed By: #### 1 [id number] #### [facility] [address] [place] [address] Clarity (U) CLEAR Normal Clear [facility] Comment on above: Performed By: #### 1 [id number] #### [facility] [address] [place] [address] Color (U) YELLOW Normal Yellow [facility] Comment on above: Performed By: #### 1 [id number] #### [facility] [address] [place] [address] Epithelial cells.squamous LM.HPF (Urine sed) [#/Area] 0-2 Normal 0-2 [facility] Comment on above: Performed By: #### 1 [id number] #### [facility] [address] [place] [address] Glucose Test strip (U) [Mass/Vol] Negative Normal Negative [facility] Comment on above: Performed By: #### 1 [id number] #### [facility] [address] [place] [address] Hemoglobin Ql (U) Negative Normal Negative [facility] Comment on above: Performed By: #### 1 [id number] #### [facility] [address] [place] [address] Ketones (U) [Mass/Vol] Negative Normal Negative [facility] Comment on above: Performed By: #### 1 [id number] #### [facility] [address] [place] [address] [place].plasma/Lithiu m.RBC (Bld) [Mass ratio] 0-3 Normal 0-3 [facility] Comment on above: Performed By: #### 1 [id number] #### [facility] [address] [place] [address] Nitrite Ql (U) Negative Normal Negative [facility] Comment on above: Performed By: #### 1 [id number] #### [facility] [address] [place] [address] pH (U) 7.5 [pH] Invalid Interpretation Code 5.0-9.0 [facility] Comment on above: Performed By: #### 1 [id number] #### [facility] [address] [place] [address] Protein (U) [Mass/Vol] Negative Normal Negative [facility] Comment on above: Performed By: #### 1 [id number] #### [facility] [address] [place] [address] Specific gravity (U) [Rel density] 1.010 Invalid Interpretation Code 1.005-1.030 [facility] Comment on above: Performed By: #### 1 [id number] #### [facility] [address] [place] [address] Type of Urine collection method Clean Catch Normal [facility] Comment on above: Performed By: #### 1 [id number] #### [facility] [address] [place] [address] Urobilinogen Qn (U) 0.2 {Andrea'U}/dL Normal 0.0-1.0 [facility] Comment on above: Performed By: #### 1 [id number] #### [facility] [address] [place] [address] WBC Auto Ql (U) TRACE Abnormal Negative [facility] Comment on above: Performed By: #### 1 [id number] #### [facility] [address] [place] [address] WBC LM.HPF (Urine sed) [#/Area] 0-5 Normal 0-5 [facility] Comment on above: Performed By: #### 1 [id number] #### [facility] [address] [place] [address] URINALYSISOrdered By: Davidson Watson on 11-25-2022 Bacteria [...] PM) Normal Negative [facility] UA Auto SS [place].plasma/Lithiu m.RBC (Bld) [Mass ratio] 0-3 /HPF Normal 0-3/HPF [facility] UA Auto SS Nitrite Ql (U) Negative (11/25/22 6:27 PM) Normal Negative [facility] [place] Auto SS pH (U) 7.5 *NA* (11/25/22 6:27 PM) Invalid Interpretation Code 5.0 - 9.0 [facility] UA Auto SS Protein (U) [Mass/Vol] Negative (11/25/22 6:27 PM) Normal Negative [facility] UA Auto SS Specific gravity (U) [Rel density] 1.010 *NA* (11/25/22 6:27 PM) Invalid Interpretation Code 1.005 - 1.030 [facility] UA Auto SS UA Spec Desc Clean Catch (11/25/22 6:27 PM) Normal [facility] [place] Auto SS Urobilinogen Qn (U) 0.2653723 {Andrea'U}/dL Normal 0.0 - 1.0 EU/dL [facility] UA Auto SS WBC Auto Ql (U) Trace *ABN* (11/25/22 6:27 PM) Invalid Interpretation Code Negative [facility] [place] Auto SS WBC LM.HPF (Urine sed) [#/Area] 0-5 /HPF Normal 0-5/HPF [facility] [place]A Auto SS PAP ACOG PANEL 2: 21 to 29on 11-14-2022 . . Normal [facility] Comment on above: Performed By: #### C T/NGNA #### [facility] [address] [place] [address] Dr. Tasha Whalen Age Gdln ACOG Testing [facility] Comment on above: Performed By: #### C T/NGNA #### [facility] [address] [place] [address] Dr. Tasha Whalen DIAGNOSIS: Comment Normal [facility] Comment on above: Result Comment: NEGA TIVE FOR INTRAEPITHELIAL LESION OR MALIGNANCY. FUNGAL ORGANISMS MORPHOLOGICALLY CONSISTENT WITH DYLAN SPECIES ARE PRESENT. Performed By: #### C T/NGNA #### [facility] [address] [place] [address] Dr. Tasha Whalen Methodology: Comment [facility] Comment on above: Result Comment: This liquid based ThinPrep(R) pap test was screened with the use of an image guided system. Performed By: #### C T/NGNA #### [facility] [address] [place] [address] Dr. Tasha Whalen Note: Comment Normal [facility] Comment on above: Result Comment: The Pap smear is a screening test designed to aid in the detection of premalignant and malignant conditions of the uterine cervix. It is not a diagnostic procedure and should not be used as the sole means of detecting cervical cancer. Both false-positive and false-negative reports do occur. . Performed By: #### C T/NGNA #### [facility] [address] [place] [address] Dr. Tasha Whalen Performed by: Comment Normal [facility] Comment on above: Result Comment: Emma Jama, Milk Processing Worker (ASCP) Performed By: #### C T/NGNA #### [facility] [address] [place] [address] Dr. Tasha Whalen Reflex Criteria: Comment Normal [facility] Comment on above: Result Comment: The HPV DNA reflex criteria were not met with this specimen result therefore, no HPV testing was performed. . Performed By: #### C T/NGNA #### [facility] [address] [place] [address] Dr. Tasha Whalen Specimen adequacy: Comment Normal [facility] Comment on above: Result Comment: Sati sfactory for evaluation. Endocervical and/or squamous metaplastic cells (endocervical component) are present. Performed By: #### C T/NGNA #### [facility] [address] [place] [address] Dr. Tasha Whalen CHLAMYDIA/GONOCOCCUS CATRINA (SW AB/URINE/PAPon 11-12-2022 Chlamydia trachomatis, CATRINA Negative Normal Negative [facility] Comment on above: Performed By: #### C T/NGNA #### [facility] [address] [place] [address] Dr. Tasha Whalen Neisseria gonorrhoeae, CATRINA Negative Normal Negative [facility] Comment on above: Performed By: #### C T/NGNA #### [facility] [address] [place] [address] Dr. Tasha Whalen VAGINITIS/VAGINOSIS DNA PROB Dell 11-09-2022 Dylan species Positive Abnormal Negative [facility] Comment on above: Performed By: #### V AGINT #### [facility] [address] [address] [address] Tasha Whalen Gardnerella vaginalis Negative Normal Negative [facility] Comment on above: Performed By: #### V AGINT #### [facility] [address] [address] [address] Tasha Whalen Trichomonas vaginalis Negative Normal Negative [facility] Comment on above: Performed By: #### V AGINT #### [facility] [address] [place] [address] Dr. Tasha Whalen HEP B SURFACE ANTIGEN SCREEN on 10-05-2022 HBsAg Screen Negative Normal Negative [facility] Comment on above: Performed By: #### H BSANS #### [facility] [address] [place] [address] Dr. Tasha Whalen HEPATITIS C VIRUS AB W/ REFL EX QUANTon 10-05-2022 HCV AB 0.1 s/co ratio Normal 0.0-0.9 [facility] Comment on above: Performed By: #### H CVPCRR #### [facility] [address] [place] [address] Dr. Tasha Whalen Interpretation: Comment Normal [facility] Comment on above: Result Comment: Nega tive Not infected with HCV, unless recent infection is suspected or other evidence exists to indicate HCV infection. Performed By: #### H CVPCRR #### [facility] [address] [place] [address] Dr. Tasha Whalen HIV 1 AND 2 WITH REFLEXon HIV Screen 4th Generation wRfx Non-Reactive Normal Non Reactive [facility] Comment on above: Result Comment: HIV Negative HIV-1/HIV-2 antibodies and HIV-1 p24 antigen were NOT detected. There is no laboratory evidence of HIV infection. Performed By: #### H IV12 #### [facility] [address] [place] [address] Dr. Tasha Whalne RPR QUANTon 10-05-2022 Rapid Plasma Reagin, Quant Non-Reactive Normal NonRea<1:1 [facility] Comment on above: Result Comment: Plea se Note: This test does not meet current guidelines for screening and diagnosis of syphilis. This test is intended for following treatment response in patients being treated for syphilis infection. To screen for syphilis infection, a reflex cascade that includes both RPR and a treponema-specific assay should be utilized, such as Treponema pallidum (Syphilis) Screening [place] (580119) or Rapid Plasma Reagin (RPR) Test With Reflex to Quantitative RPR and Confirmatory Treponema pallidum Antibodies (816818). Performed By: #### C T/NGNA #### [facility] [address] [place] [address] Dr. Tasha Whalen RUBELLA AB IGGon 10-05-2022 Rubella Antibodies, IgG 3.71 index Normal Immune >0.99 [facility] Comment on above: Result Comment: Non- immune <0.90 Equivocal 0.90 - 0.99 Immune >0.99 Performed By: #### R UBIGG #### [facility] [address] [place] [address] Dr. Tasha Whalen CBC AUTO DIFFon 10-04-2022 BASO # 0.0 103/ul Normal 0.0-0.1 [facility] Comment on above: Performed By: #### H IV12 #### [facility] [address] [place] [address] Dr. Tasha Whalen Basophils/100 WBC (Bld) 0.5 % Normal 0.2-2.0 [facility] Comment on above: Performed By: #### H IV12 #### [facility] [address] [place] [address] Dr. Tasha Whalen EO # 0.1 103/ul Normal 0.0-0.7 [facility] Comment on above: Performed By: #### H IV12 #### [facility] [address] [place] [address] Dr. Tasha Whalen Eosinophils/100 WBC (Bld) 0.8 % Critically low 0.9-7.0 [facility] Comment on above: Performed By: #### H IV12 #### [facility] [address] [place] [address] Dr. Tasha Whalen Erythrocyte distribution width (RBC) [Ratio] 12.5 % Normal 11.0-15.0 [facility] Comment on above: Performed By: #### H IV12 #### [facility] [address] [place] [address] Dr. Tasha Whalen Hematocrit (Bld) [Volume fraction] 39.2 % Normal 36.0-48.0 [facility] Comment on above: Performed By: #### H IV12 #### [facility] [address] [place] [address] Dr. Tasha Whalen Hemoglobin (Bld) [Mass/Vol] 13.5 g/dL Normal 12.0-16.0 [facility] Comment on above: Performed By: #### H IV12 #### [facility] [address] [place] [address] Dr. Tasha Whalen IG # 0.04 10e3/ul Critically high 0.00-0.[address] [facility] Comment on above: Performed By: #### H IV12 #### [facility] [address] [place] [address] Dr. Tasha Whalen IG % 0.5 % Normal 0.0-0.5 [facility] Comment on above: Performed By: #### H IV12 #### [facility] [address] [place] [address] Dr. Tasha Whalen LYMPH # 1.6 103/ul Normal 1.2-3.8 [facility] Comment on above: Performed By: #### H IV12 #### [facility] [address] [place] [address] Dr. Tasha Whalen Lymphocytes/100 WBC (Bld) 18.5 % Critically low 20.5-60.0 [facility] Comment on above: Performed By: #### H IV12 #### [facility] [address] [place] [address] Dr. Tasha Whalen MANUAL DIFF REQ NO Normal [facility] Comment on above: Performed By: #### H IV12 #### [facility] [address] [place] [address] Dr. Tasha Whalen MCH (RBC) [Entitic mass] 29.6 pg Normal 26.7-34.0 [facility] Comment on above: Performed By: #### H IV12 #### [facility] [address] [place] [address] Dr. Tasha Whalen MCHC (RBC) [Mass/Vol] 34.4 g/dL Normal 29.9-35.2 [facility] Comment on above: Performed By: #### H IV12 #### [facility] [address] [place] [address] Dr. Tasha Whalen MCV (RBC) [Entitic vol] 86.0 fL Normal 81.0-99.0 [facility] Comment on above: Performed By: #### H IV12 #### [facility] [address] [place] [address] Dr. Tasha Whalen MONO # 0.4 103/ul Normal 0.3-0.8 [facility] Comment on above: Performed By: #### H IV12 #### [facility] [address] [place] [address] Dr. Tasha Whalen Monocytes/100 WBC (Bld) 4.8 % Normal 1.7-12.0 [facility] Comment on above: Performed By: #### H IV12 #### [facility] [address] [place] [address] Dr. Tasha Whalen NEUT # 6.3 103/ul Normal 1.4-6.5 [facility] Comment on above: Performed By: #### H IV12 #### [facility] [address] [place] [address] Dr. Tasha Whalen Neutrophils/100 WBC (Bld) 74.9 % Normal 43.0-75.0 [facility] Comment on above: Performed By: #### H IV12 #### [facility] [address] [place] [address] Dr. Tasha Whalen Platelet mean volume (Bld) [Entitic vol] 10.0 fL Normal 9.5-13.5 [facility] Comment on above: Performed By: #### H IV12 #### [facility] [address] [place] [address] Dr. Tasha Whalen PLT 290 103/ul Normal 150-450 [facility] Comment on above: Performed By: #### H IV12 #### [facility] [address] [place] [address] Dr. Tasha Whalen RBC 4.56 106/ul Normal 4.20-5.40 [facility] Comment on above: Performed By: #### H IV12 #### [facility] [address] [place] [address] Dr. Tasha Whalen WBC 8.4 103/ul Normal 4.0-11.0 [facility] Comment on above: Performed By: #### H IV12 #### [facility] [address] [place] [address] Dr. Tasha Whalen CULTURE URINEon 10-04-2022 CULTURE URINE Culture Observations: VERY LIGHT GROWTH OF MIXED GENITAL TAYE. NO POTENTIAL PATHOGENS SEEN. Normal [facility] Comment on above: Performed By: #### C T/NGNA #### [facility] [address] [place] [address] Dr. Tasha Whalen GLYCOHEMOGLOBIN A1Con 2022 ADA RECOMMENDATION SEE BELOW Normal [facility] Comment on above: Result Comment: ADA RECOMMENDED LIMIT 4.0 - 6.0 ADA THERAPEUTIC TARGET < 7.0 ACTION SUGGESTED > 7.0 Performed By: #### C T/NGNA #### [facility] [address] [place] [address] Dr. Tasha Whalen Glucose [Mass/Vol] 100 mg/dL Normal [facility] Comment on above: Performed By: #### C T/NGNA #### [facility] [address] [place] [address] Dr. Tasha Whalen HbA1c (Bld) [Mass fraction] 5.1 % Normal 4.5-6.2 [facility] Comment on above: Performed By: #### C T/NGNA #### [facility] [address] [place] [address] Dr. Tasha Whalen CLINT BOX TEST PT SEND OUTo n 10-04-2022 SENT TO REF LAB 10/04/2022 Normal [facility] Comment on above: Performed By: #### C T/NGNA #### [facility] [address] [place], [place] [address] Dr. Tasha Whalen TSHon 10-04-2022 TSH 1.027 uIU/mL Normal 0.358-3.740 [facility] Comment on above: Performed By: #### C T/NGNA #### [facility] [id number] Tasha Whalen TYPE AND SCREENon 10-04-2022 TYPE AND SCREEN Negative Normal [facility] Comment on above: Performed By: #### C T/NGNA #### [facility] [address] [address] [address] Tasha Whalen US PREG TVon 09-20-2022 [...] ALFRED BERGERON Date: 2022-09-20 10:40 Normal [facility] Coding Summary.on 09-09-2022 Coding Summary. CD:[id number] Gh0bWw+PGhlYWQ+PE1FV CDkE56czSZnqE3SY7hPM C0HGVKJOCNSMH3JDY0qe JK6UHtvL7IuyeNm VvdkgWCrUV60BWk3MVV4 uDthIXeuhJ9dbQRhZ4p1 NjYkLB12hS42TKesHXPw LfK9QqRyxbshuKDq P6anPvWiuURdYvh+PHRh YmxlIHdpZHRoPScxMDAl WuAodFgfFS0sUf4qNOMt LWNvbGxhcHNlOiBj t8jhGKKuUQkmPS5ldZjz S2VevMQ5XBVbm8k1Cl72 dHI+BVBjOHL7pUomYFmp a109XiAwm2wfKPJ8 oGImKIhuBWL1V59um4W4 GQQyGWEtHSQ0uJD6aK8x vYsjlfsgF5KmlJAqGdY0 IOM0zSRocC6jyNpx hmvrmC2wIqc+B37FLQ6E GKDNDA5TQbn5E9LvXzqe dHI+CO23GMIxJA97kXTj hEKxn6mjiDu3FaKl TUVyPEH5lIpcNKvcp8He EYVzB02quRBck3V7LROm pOszwCAaItBynQA1gN4o PCrmrxrxz5tetkog Rahpb5pumo31oX28N08v BJnjMPUpLKM3VMGkFKGg lMenob0qsS5cUo5+IDxj r0ieg8uooKw3JrIx VGWsfeHblIpwPST6i9An Aw44R7TanQdpv2OuGpw2 ly90sNAiq1O1zWM3WPgd WLVefM6vRSnkIxC2 ZATiBtJisR75kWGpNJnn Ck8qlVrdqYdjEM8qJICq uhehPNKmcQ6rNPNzbEGa xIvuFS9iYMCavspu j497RuKcOPP0LZYakTEv T3LktK3wNqPaSHVdCIUm B7XgqBToDFusC503MIqt GoY4HUXvvvCrF7Lr FZZijPrtGuP8x6N3Kb5D b6OdikmhUXY6VWsfSOAo QjW9BeOcMoV2W8VwZsa3 ISPdbSwhAC3jF7Hi FYNbvmpboefskHL0SPBp KGNziA34jTEbIIpgIr4c z8Z6d449BHIrOXBttO21 Fl0onTnbYPUiiOBH oY9nrktak5snverpArYu JTYqTEy4CCj1OZRiwDlo GvGqOKO3BnD5EHW6eGUj vI6haMhzcntmaG9f Oyc+G34whI5zCHC7EWH9 oywsOEKwkzUdNW19CK52 W4IrHudruVIlxYP+PGRp ezMoeAspSI7aPnJs l0xwd8QkIJttL2RoJBJw ESxnZwl7MXDyRQT1vTR6 gN8rNJUgXAxla8F6pMJ2 T2OjtwHsch5ab1sj LCRwXXssO03ypIDqh6Y9 PBDzmAN9SUBpvRggBgXs gF07Mxp+GDIllKkez4Yf Xprmr7fpc8eefJt5 IjMwJSIgdmFsaWduPSJ0 v4TlQh52Z39uBHtlLERj AAYwOAEoYLGwkVbpwh3q dD5eLd9+PGNvbCB3 wAK2yN4oUPGtFeA6KAna V137FiRtfIUcYddws3mh k1jldFz6JcCbRNEokiDu qKriASC9z9ZuWo70 L67oDQojQYNhCQVfSAQw TRXfwDatyh2xeO0bOj5+ KT0wx3cnrd16nG52vKH+ FVRxMUR1lLutBTdo WSYtjF9pNXjkTxN9UACd GjRqtH38iJIzLCvrBr6a rUrwbBzvUW6mMWDyzcmy b165FwGzm8sxVFYk uCMqUMznEWS0S41ld3R3 DDOnNTRaVAM3lYK2yX8w bGlnbjogbGVmdDsgdmVy gBeaPEtfNAcjI273 IHRvcDsnPlBhdGllbnQg ChZrIIz7M7WhEkt6HTZw hAfqWO7neLWhCIytIb1j dZcgzJczGO0bQDRi jlsil295FuTmd3fuONNo jLUeBXtpWKQ6A41vd3L5 BOVrZCFcDIO9pVU4hX0c bGlnbjogbGVmdDsg stYbeOwiELuvYVfyF377 IHRvcDsnPkJpcnRoIERh eME3DI97XV78gHTdw6U0 kFP0I8TtCSCnwxyc zolybQS2EVDaXXBytF40 Yg3wuTupKi3aVSAiMSE7 BHFdmRUwC5HbsW7eDuPr NNLpMCOwW4JtvOXx EEfpL117RBmeGaM0NACr jmLpM0JgQRWjzWkhDtM7 l1K0Uu0ZW2G4FB04LV56 eVRqa7K9jZA9G4El IQWwrycklecyyOW0FGCr MTGcyP82Ju3uyAykYv7s MKHnJSZ1PERqiPKrC1Hz nF0qGwXxPGRlAICu H0LeyUSjOWsyD565TYkc IvX2UXMvmiCwI0RzXHKj uLtiTrR9g9Z1Ok8MXJy7 TB64DI35kZIuw4S4 aVJ4T9OoAMXofmtjlupl iVQ2YLDbTCSahG06Jp6f nVkgHh0rVUCtMVR9MUDd wJAmW7WzdD7rBdWj TJRuESPaQ6YmkQVlUIkm L826YAaoWuQ5MXLfhsVa K1UpNOCuuNwtStO1t2L2 Xh8AGVXoBF80BVZ7 mFC1FH21IA42H0ZmZxzr dGFibGU+PHRhYmxlIHdp ZHRoPScxMDAlJyBzdHls OV1uOb8lFVWbVEXc gOoweSSaDmBiv1obJQHj BUuhDE6cpHsvN8LxlTG3 RXLxt8d4Kc32C25qY5Qz dXA+GNEvhJF2rGH6 oT4dVrXpLrV8ODibN401 FeXsoYShJcgja1bgk5ll mHy4GcF5JZMbigGncGuu TBW7a5JtFf53R43j IHdpZHRoPSIxNSUiIHZh xRctyy3shS4jDd9+PGNv dYQ6uKE0jL5jRfZfAgK4 RYemZ486ObIexDWc Xkshv3vog8mlxCx9IbPp FIFkyyElcUroJEW3b9Se Ix36F0PmwYgzc0QuVsu8 ig99cSEpw9K5zTA8 H7OoWXMekchyjLBfbCnc CT2fCJTupefaYSYvwE9o WODvQ8f9ZtEcMiF8XSjx R7PopzC0ICSnwTGn LDhjJIQ4O07jc4P0AKUn WYQqHEA2vAU0tL2drClq bjogbGVmdDsgdmVydGlj LZleKHecT816TQOw vYxtZCGjvK4pADLutRXs aYmhQZ3lNLTcjexfPm3E UBPPTPKOLNSPBKMDAU2Y IH33A6AxHmh5TTRa xRxoGI6kmFKwRTerVc3g sVxasFaaBV3fQNVdtuzp CZYktX6tQWBevFWiaOxf DW3pSILwmwvvv693 KhHwZJW5QFJrmICgJ6We yN5cBqTyRCCmAFYbX9Zi qQImGJeaK189GNyvYtS8 UGKxaxBeO0UvDYQk nWzcVyZ3i1H2Nk3kLM2p PQ3hEBMiAG17TU95lFEn d4G1kZG0Z1TrDURqjggw dbnhkOK6NFJhTWZb tB77lEBeLBusOh6qz1H3 h795BGZmKBNbwQ22Rh8u vCplXGRslUWVxQ9yvkig i8jmfnmiAwEpZROx QBl6IMu6FQQtnOzcTgBi GCN1JmS5NHO0cLJwcN7n jFspiearlW8pXbq+MjEg QARyyyF4M2NwZfy3 OTUryHijCU8leRZaKGwv Oz1nxVhmwEqeRH1cHUCl nmjiAXGqsF9aLQSjoWMz qOzzIZ8yEXZvaiqx i627PiRvYSY5UXFnvVOw O7MzsN2tVsApZURwIGHs Q3LvrOQwWSelE384OXqz PsT6HEJyuiSrV7Nu AXUnoVxuKyG6f4X1Lr6X FK7ypGG8S2SoSok1HCXa nXpfWA4mzBKdBIctPl8k cDvymGztTG7rCWIe jqqoSXXhuL3uYIJulWQb kMaoRH3sUXHbyqgwd740 RzXaKJQ3RAPebOFmU7Ia iX4vYoPsIXKkSRHj U2PhzNFsMIjqV141VJpf TgW5DJMhynJhN7GdUNFi hUzmFzK4i2Z5Ws6PtNJp T3DdC4d0U3CjLpit dHI+LP63AZCaKN08xFOw tRTlj9kwnLy6JyOxXOUm YAQ4eOrdKFhau7WiMFLw E32rnGPra2P5NLNn tWdojBFgWeLnjOQ5wW8t QNuszjevh8kbebidPidj l9nfdc20xZ57O90zAShe ZHRoPSIzMCUiIHZh iCejtz9rbH6kDc6+PGNv aOM4mQT8fS8cZpDiSfT5 OSbiB343AdGubQGgQlaj x5pso4umpEu4RiQp QGZimvSreFwrDMV5v1Bf Eo16F67hXUpyNBIlCWTp XECkVETcoLvltt4maG0m Ii8+UT8eq7ydnx91 qU69nYA+GLFeVLG9hLxp QQmiCGCpfB0kPNgeMkX9 OFWaFiAafS58hRCsHQsm Kg7jeNoclPhfRO8p MTPegybst224EwOoz5mr BTWjwSEcGRysOHX3X04e x7S9AGZhMTUtJOE8uNN7 nA1qsWdibjtfuNTx dDsgdmVydGljYWwtYWxp B581QRTlyUoqMoIbzUCb M5wvqpULNM2hEkucwIT+ UGEnUPG6eWuuFJhd TEVfvP6hPWJxL6f1TeYk DqN7HPzgG2ErmlS4SOKy aUJaDSVsxZZYfA8yjeyz z4ohwxxdAxXoQPVm QRy2JMg0XRIxeDqjPhCa UOO1VjX4QQV9zHDxiZ3s jAllqpvnlB1fBvj+RklO OjwvdGQ+PHRkIHN0 xMioISayWDHqsX8rZBYa M9e8DtAiMgA1UBzwR3Cw whO7IRObrGCfZQNwhFHF hT6ddgqae0hhejxh BsLtWXZaZBg9UWi4SGDz vMnlPvTjWBG0RrB4VJQ0 zPBiyR0fwUrvvtwqtI4a Oyc+TVJOOjwvdGQ+ PGJaVYC1pNmsHWlySBLm yI2rQWNzA2q8ZvCtXbX8 MNixD8GcopO4MBWvfKBx SXRicPOMaW0jrabn e3jfndbuJyEcDWZdKGf2 IDc6LDVmcLcoXnTuEUP4 CaO2NXY6hLVnfH8ieRkx keedrX1oFuj+UGF5 MIA4XW94UG40R1MyVevp dGFibGU+PHRhYmxlIHdp ZHRoPScxMDAlJyBzdHls MG5cKy1eHWUvVNLq bGxh (more content not included)... Normal [facility] Auto Diffon 09-08-2022 Basophils/100 WBC (Bld) 0.7 % Normal 0.0-2.0 [facility] Comment on above: Order Comment: Order Added by Discern Expert. Performed By: #### 2 696500, [id number], 0333486, 1860461, 83534563, 3006313, 3867013 ####[address] [place] [address] Basophils/Leukocytes Auto (Bld) [Pure # fraction] 0.1 E9/L Normal 0.0-0.2 [facility] Comment on above: Order Comment: Order Added by Discern Expert. Performed By: #### 2 463260, 3666676, 1227774, 3311865, 35150422, 9307879, 3130708 ####[address] [place] [address] Eosinophils/100 WBC (Bld) 1.3 % Normal 0.0-8.0 [facility] Comment on above: Order Comment: Order Added by Discern Expert. Performed By: #### 2 223468, 4026062, 8642603, 2360939, 79673628, 2228509, 9957730 ####[address] [address] Eosinophils/Leukocyte s Auto (Bld) [Pure # fraction] 0.1 E9/L Normal 0.0-0.5 [facility] Comment on above: Order Comment: Order Added by Discern Expert. Performed By: #### 2 585600, 6279577, 9450864, 1699347, 27341221, 0793524, 4306622 ####[address] [address] Lymphocytes/100 WBC (Bld) 22.3 % Normal 14.0-50.0 [facility] Comment on above: Order Comment: Order Added by Discern Expert. Performed By: #### 2 910009, 7826989, 0607892, 6881541, 97322231, 8841711, 0048331 ####[address] [address] Lymphocytes/Leukocyte s Auto (Bld) [Pure # fraction] 2.2 E9/L Normal 1.0-4.0 [facility] Comment on above: Order Comment: Order Added by Discern Expert. Performed By: #### 2 663329, 5908612, 5077619, 8562165, 47152335, 9995221, 4301434 ####[address] [place] [address] Monocytes/100 WBC (Bld) 7.4 % Normal 4.0-14.0 [facility] Comment on above: Order Comment: Order Added by Discern Expert. Performed By: #### 2 797429, 9772881, 0028972, 1949889, 19894258, 2134903, 8973483 ####[facility] [id number] [place] [address] Monocytes/Leukocytes Auto (Bld) [Pure # fraction] 0.7 E9/L Normal 0.2-1.0 [facility] Comment on above: Order Comment: Order Added by Discern Expert. Performed By: #### 2 528187, 6943405, 0012101, 9304511, 45009338, 1913599, 1282757 ####[address] [address] Neutrophils/100 WBC (Bld) 68.3 % Normal 36.0-75.0 [facility] Comment on above: Order Comment: Order Added by Discern Expert. Performed By: #### 2 820196, 7195000, 1187800, 8929793, 82441144, 9188985, 4195157 ####[address] [place] [address] Neutrophils/Leukocyte s Auto (Bld) [Pure # fraction] 6.7 E9/L Normal 2.0-7.5 [facility] Comment on above: Order Comment: Order Added by Discern Expert. Performed By: #### 2 181625, 0279462, 2006735, 8971739, 53120321, 6713613, 3840278 ####[facility] [id number] [place] [address] BMPon 09-08-2022 Creatinine [Mass/Vol] 0.5 mg/dL Normal 0.5-1.3 [facility] Comment on above: Performed By: #### 2 303238, 5265771, 7717465, 5303336, 25757154, 6381027, 4040176 ####[facility] [id number] [place] [address] Urea nitrogen [Mass/Vol] 8 mg/dL Normal 5-21 [facility] Comment on above: Performed By: #### 2 753026, 5321050, 9688553, 8783189, 57742137, 8865169, 8075136 ####[facility] [address] [place] [address] Urea nitrogen/Creatinine [Mass ratio] 16 No Units Normal 10-20 [facility] Comment on above: Performed By: #### 2 098793, 4944414, 3394811, 7496738, 85121140, 3123263, 3540780 ####[facility] [address] [place] [address] Anion gap [Moles/Vol] 12 mmol/L Normal 6-16 [facility] Comment on above: Performed By: #### 2 117833, 2331450, 2488860, 3367856, 38076125, 3277058, 6581086 ####[facility] [address] [place] [address] Calcium [Mass/Vol] 9.2 mg/dL Normal 8.9-11.1 [facility] Comment on above: Performed By: #### 2 458736, 8142854, 9337117, 0504421, 86661790, 0817754, 6624837 ####[facility] [address] [place] [address] Chloride [Moles/Vol] 103 mmol/L Normal 101-111 [facility] Comment on above: Performed By: #### 2 681064, 0718893, 3342549, 9674086, 59571825, 9579616, 6328628 ####[facility] [address] [place] [address] CO2 [Moles/Vol] 22 mmol/L Normal 21-31 [facility] Comment on above: Performed By: #### 2 065325, 8287586, 5324149, 1158306, 73138740, 0064589, 4104254 ####[facility] [address] [place] [address] Glucose [Mass/Vol] 92 mg/dL Normal 55-199 [facility] Comment on above: Result Comment: If t his glucose result represents a fasting glucose, interpretation should refer to the following reference range: 55-99 mg/dL Performed By: #### 2 502400, 0839515, 9680133, 2775537, 14147079, 5747965, 2834269 ####[facility] [address] [place] [address] Potassium [Moles/Vol] 3.3 mmol/L Low 3.5-5.3 [facility] Comment on above: Performed By: #### 2 075895, 2645376, 8467621, 6373335, 26936134, 3995570, 3152956 ####[facility] [address] [place] [address] Sodium [Moles/Vol] 134 mmol/L Low 135-145 [facility] Comment on above: Performed By: #### 2 072462, 9659747, 4480416, 7635477, 87684185, 9297059, 9758925 ####[facility] [address] [place] [address] CBC w/ Auto Diffon 3 Erythrocyte distribution width (RBC) [Ratio] 13.4 % Normal 10.9-14.2 [facility] Comment on above: Performed By: #### 2 842089, 0635558, 6303175, 5365003, 09147854, 7523106, 0914628 ####[facility] [address] [place] [address] Hematocrit (Bld) [Volume fraction] 38.9 % Normal 34.0-46.0 [facility] Comment on above: Performed By: #### 2 140687, 1664120, 4342095, 5795601, 28199614, 2697168, 1677997 ####[facility] [address] [place] [address] Hemoglobin (Bld) [Mass/Vol] 13.4 g/dL Normal 12.0-16.0 [facility] [facility] Comment on above: Performed By: #### 2 730476, 1672000, 3386328, 2197751, 98905631, 5645536, 6834244 ####[facility] [address] [place], [place] [id number] MCH (RBC) [Entitic mass] 29.2 pg Normal 27.0-34.0 [facility] Comment on above: Performed By: #### 2 011230, 2468040, 5408977, 1151193, 92143510, 5275457, 5722489 ####[address] [address] MCHC (RBC) [Mass/Vol] 34.3 g/dL Normal 31.4-36.0 [facility] Comment on above: Performed By: #### 2 631889, 8862986, 5002131, 8723450, 63738092, 5934625, 1148149 ####[address] [address] MCV (RBC) [Entitic vol] 84.9 fL Normal 80.0-100.0 [facility] Comment on above: Performed By: #### 2 685484, 3626826, 5637448, 1239907, 16571005, 3632264, 4655077 ####[address] [address] Platelet mean volume (Bld) [Entitic vol] 8.6 fL Normal 6.4-10.8 [facility] Comment on above: Performed By: #### 2 205147, 9738959, 6534756, 2498015, 76658590, 6567368, 5152001 ####[address] [address] Platelets (Bld) [#/Vol] 262.0 E9/L Normal 150.0-500.0 [facility] Comment on above: Performed By: #### 2 039158, 1624114, 6482599, 3815290, 46804580, 2867109, 7233824 ####[facility] [address] [place] [address] RBC (Bld) [#/Vol] 4.6 E12/L Normal 4.3-5.9 [facility] Comment on above: Performed By: #### 2 779635, 6330685, 5067716, 3867539, 09897039, 0694493, 2744977 ####[facility] [address] [place] [address] WBC corrected for nucl RBC Auto (Bld) [#/Vol] 9.9 E9/L Normal 4.0-11.0 [facility] Comment on above: Performed By: #### 2 869557, 1582949, 3009590, 2750312, 45674692, 8303520, 4833979 ####[facility] [address] [place] [address] Consent for Treatmenton 08-25 Consent for Treatment [id number] #1.00CD:[address] [facility] [facility] Discharge Instructionson Discharge Instructions [id number]#1.00CD:[address] [facility] [facility] ED Clinical Summaryon 2022 ED Clinical Summary [address] [address] ED Clinical Summary Person Information Name: ROQUE PIERSON [place] Age: 22 Years : 2000 Sex: Female Language: Qatari PCP: Caryn Aviles MD Marital Status: Single [...] 09/08/2022 04:05:14 09/08/2022 04:05:14 09/08/2022 04:05:14 ADDRESS: [address] [place] [id number] PHYS DOC NOTES: MEDICAL INFORMATION: Prescriptions Given: New Medications [facility], [address] [place], [place] [id number], [phone] metoclopramide (Reglan 10 mg Tab) 1 Tablets [...] Follow up: With: Address: When: [facility], [address] [place] [address] [place] [address] Business (1) In 3 days 09/11/2022 Comments: 1 every 8 hours as needed for nausea and vomiting. Please follow-up with OB for further evaluation and management. Please return to the ED for any new or worsening symptoms. With: Address: When: Caryn [place] [address] Business (1) In 3 days 09/11/2022 DIAGNOSIS: Nausea/vomiting in Normal [facility] ED Note-Physicianon 09-08-19 ED Note-Physician Basic Information [...] and Complexity of Problems Differential Diagnosis: [] [facility] Data External documents reviewed: [] My [...] q6hr, # 14 tab(s), Refills(s) 0, Pharmacy: [facility], 173, cm, 09/08/22 1:24:00 EST, Height/Length [...] 5 mg/mL Inj, 10 mg, IV Push [id number] [F], 1000 mL, IV potassium chloride 20 mEq ER Tab, 40 mEq, Oral Disposition Plan Discharge Prescription List Prescriptions Reglan 10 mg Tab, 10 mg= 1 tab(s), Oral, q6hr Follow-up With When (more content not included)... Normal [facility] Comment on above: Result Comment: Elec tronically [...] or sour. Examples include lemonade, damián janak, lemon?jena soda, ice water, and sparkling water. ? [place] your teeth or use a mouth rinse after meals. ? Talk with your health care provider about starting a supplement of vitamin B6. General instructions ? Take sell-jjh-fngonlx and prescription medicines only as told by [...] This i (more content not included)... Normal [facility] ED Patient Summaryon 023 ED Patient Summary (Inserted Image. Unable to display[address] [address] Patient Discharge Instructions Person Information Name: ROQUE PIERSON Age: 22 Years Arrival Date: 09/08/2022 01:15:13 Discharge Diagnosis: Nausea/vomiting in Primary Care Physician: Caryn Aviles MD Provider Information Primary Provider: Sissy Shah DO Advanced Methods Study Analyst:None The exam and treatment you received in the Emergency Department were for an urgent problem and are not intended as complete care. It is important that you follow up with a doctor, nurse practitioner, or physician?s bindery library technical assistant for ongoing care. If your symptoms become worse or you do not improve as expected and you are unable to reach your usual health care provider, you should return to the Emergency Department. We are available 24 hours a day. ROQUE PIERSON has been given the following list of patient education materials, prescriptions and follow-up instructions: Follow-up Instructions: With: Address: When: [facility], [address] [place] [address] [place] [address] [employer] (1) In 3 days 09/11/2022 Comments: 1 every 8 hours as needed for nausea and vomiting. Please follow-up with OB for further evaluation and management. Please return to the ED for any new or worsening symptoms. With: Address: When: Caryn Aviles [place] [address] [employer] (1) In 3 days 09/11/2022 In the event that this physician does not participate in your insurance network, please consult with your insurance company to find a nearby participating provider. Patient Education Materials: Hyperemesis Gravidarum A MESSAGE TO ALL PATIENTS REGARDING OPIOIDS PRESCRIPTION OPIOIDS: WHAT YOU NEED TO KNOW Prescription opioids can be used to help relieve wgujajft-kc-xqxgky pain and are often prescribed following a [...] the F (more content not included)... Normal [facility] Hep Func Panelon 09-08-2022 Albumin [Mass/Vol] 4.3 g/dL Normal 3.3-5.0 [facility] Comment on above: Performed By: #### 2 540014, 9038015, 4981268, 0807344, 56958066, 1142554, 0170185 ####[facility] [address] [place] [address] Albumin/Globulin (S) [Mass conc ratio] 1.3 Normal 1.1-2.2 [facility] Comment on above: Performed By: #### 2 687684, 7591143, 1177039, 8078375, 97270969, 5059183, 3025477 ####[facility] [address] [place] [address] ALP [Catalytic activity/Vol] 61 Int._Unit/L Normal 21-98 [facility] Comment on above: Performed By: #### 2 623441, 8499481, 1695145, 7794584, 86561927, 6501173, 2796927 ####[facility] [address] [place] [address] ALT No additional P-5'-P [Catalytic activity/Vol] 61 Int._Unit/L High 6-46 [facility] Comment on above: Performed By: #### 2 870462, 8382723, 8747450, 4496638, 47841566, 3524625, 1225219 ####[facility] [address] [place] [address] AST [Catalytic activity/Vol] 48 Int._Unit/L High 5-43 [facility] Comment on above: Performed By: #### 2 960545, 3467935, 9440847, 4830338, 04144844, 5026095, 1057208 ####[facility] [address] [place] [address] Bilirubin [Mass/Vol] 1.1 mg/dL Normal 0.0-1.1 [facility] Comment on above: Performed By: #### 2 501457, 8785818, 0316549, 5545136, 30438448, 8323053, 7039027 ####[address] [place] [address] Bilirubin.direct [Mass/Vol] 0.3 mg/dL Normal 0.1-0.4 [facility] Comment on above: Performed By: #### 2 599742, 1059000, 4055644, 6447616, 10175555, 9613455, 4114632 ####[address] [place] [address] Bilirubin.indirect [Mass or moles/Vol] 0.8 mg/dL Normal 0.1-0.9 [facility] Comment on above: Performed By: #### 2 684670, 4523670, 5021143, 4495926, 19281975, 9955445, 1861907 ####[address] [address] Globulin (S) [Mass/Vol] 3.3 g/dL Normal 1.4-4.0 [facility] Comment on above: Performed By: #### 2 171726, 0276547, 6389903, 2366482, 37171390, 9643682, 9485151 ####[address] [address] Protein [Mass/Vol] 7.6 g/dL Normal 6.0-7.8 [facility] Comment on above: Performed By: #### 2 175156, 4526214, 5543032, 5913903, 20017553, 4109397, 1735302 ####[address] [address] Lipase Levelon 09-08-2022 Lipase [Catalytic activity/Vol] 27 U/L Normal 13-58 [facility] Comment on above: Performed By: #### 2 436060, 5638893, 3898868, 1077674, 11696353, 6766833, 8102052 ####[address] [place] [address] Magnesiumon 09-08-2022 Magnesium [Mass/Vol] 1.9 mg/dL Normal 1.3-2.4 [facility] Comment on above: Performed By: #### 2 653958, 0441065, 8297839, 7846414, 33244318, 5240414, 6142423 ####[facility] [address] [place] [address] UA With Cult Reflexon 2022 Bacteria LM Ql (Urine sed) TRACE Normal Trace [facility] Comment on above: Performed By: #### 2 714681, 6961003, 4151560, 0817980, 46552249, 9219469, 8782127 #### [facility] [address] [place] [address] Bilirubin Ql (U) 1+ Abnormal Negative [facility] Comment on above: Performed By: #### 2 126274, 1480519, 2673681, 5101176, 62105847, 2199142, 7615434 #### [facility] [address] [place] [address] Clarity (U) CLEAR Normal Clear [facility] Comment on above: Performed By: #### 2 815762, 7811773, 6113650, 8859650, 36002313, 3559369, 1678352 #### [facility] [address] [place] [address] Color (U) YELLOW Normal Yellow [facility] Comment on above: Performed By: #### 2 100561, 8962453, 2902682, 4043117, 53975597, 1219341, 3915756 #### [facility] [address] [place] [address] Epithelial cells.squamous LM.HPF (Urine sed) [#/Area] 0-2 Normal 0-2 [facility] Comment on above: Performed By: #### 2 260029, 7416149, 5987279, 0173603, 48132884, 0122399, 8505311 #### [facility] [address] [id number] Glucose Test strip (U) [Mass/Vol] Negative Normal Negative [facility] Comment on above: Performed By: #### 2 494207, 0939254, 0327266, 9104691, 79134667, 6766910, 1927863 #### [facility] [address] [address] Hemoglobin Ql (U) Negative Normal Negative [facility] Comment on above: Performed By: #### 2 264468, 3331445, 4173156, 8196392, 32897934, 2390089, 8138584 #### [facility] [address] [place] [address] Ketones (U) [Mass/Vol] 3+ Abnormal Negative [facility] Comment on above: Performed By: #### 2 942563, 1349901, 6351720, 2503794, 60003469, 2408424, 2877685 #### [facility] [address] [place] [address] [place].plasma/Lithiu m.RBC (Bld) [Mass ratio] 0-3 Normal 0-3 [facility] Comment on above: Performed By: #### 2 299660, 6092092, 2713097, 6255598, 48594575, 2876574, 4063407 #### [facility] [address] [address] Mucus Ql (Urine sed) TRACE Normal [facility] Comment on above: Performed By: #### 2 596245, 1113947, 4267584, 3876426, 76677363, 2299459, 5643037 #### [facility] [address] [address] Nitrite Ql (U) Negative Normal Negative [facility] Comment on above: Performed By: #### 2 207369, 3368556, 7635522, 3615347, 13438035, 0790469, 2614684 #### [facility] [address] [place] [address] pH (U) 6.0 [pH] Invalid Interpretation Code 5.0-9.0 [facility] Comment on above: Performed By: #### 2 227267, 1428482, 9448833, 5042322, 95936205, 4734730, 5091195 #### [facility] [address] [place] [address] Protein (U) [Mass/Vol] TRACE Abnormal Negative [facility] Comment on above: Performed By: #### 2 207654, 6647888, 6718584, 6849189, 00065245, 5939857, 2166452 #### [facility] [address] [place] [address] Specific gravity (U) [Rel density] >=1.030 Invalid Interpretation Code 1.005-1.030 [facility] Comment on above: Performed By: #### 2 325274, 4185154, 6473884, 9155895, 43339153, 3755836, 7856614 #### [facility] [address] [place] [address] Type of Urine collection method Clean Catch Normal [facility] Comment on above: Performed By: #### 2 774232, 0183807, 9906661, 5682850, 39101144, 4676346, 4746661 #### [facility] [address] [place] [address] Urobilinogen Qn (U) 1.0 {Andrea'U}/dL Normal 0.0-1.0 [facility] Comment on above: Performed By: #### 2 295342, 3225164, 2779990, 2231288, 67914658, 8316357, 3397071 #### [facility] [address] [place] [address] WBC Auto Ql (U) Negative Normal Negative [facility] Comment on above: Performed By: #### 2 271820, 7719657, 2744216, 2374373, 59700146, 3389657, 5277595 #### [facility] [address] [place] [address] WBC LM.HPF (Urine sed) [#/Area] 0-5 Normal 0-5 [facility] Comment on above: Performed By: #### 2 783269, 6476781, 4252857, 9951167, 26721416, 8930716, 0181132 #### [facility] [address] [place] [address] eGFRon 09-08-2022 GFR/1.73 sq M.predicted among blacks MDRD (S/P/Bld) [Vol rate/Area] mL/min/{1.73_m2} Normal >=59 [facility] Comment on above: Order Comment: Order added by Discern Expert. Result Comment: eGFR is race adjusted. AA=. Performed By: #### 2 059498, 3149303, 3691030, 6016071, 60536148, 9743950, 3678254 ####[facility] [address] [place] [address] GFR/1.73 sq M.predicted among non-blacks MDRD (S/P/Bld) [Vol rate/Area] mL/min/{1.73_m2} Normal >=59 [facility] Comment on above: Order Comment: Order added by Discern Expert. Result Comment: Foam Rubber Fabricator emil kidney disease could be indicated at eGFR's of less than 60 mL/min/1.73m2. Kidney failure is indicated at less than 15 mL/min/1.73m2. Performed By: #### 2 490616, 9472122, 3540017, 7036994, 13807625, 5867100, 6116440 ####[facility] [address] [place] [address] CBC with Auto Differentialon 09-04-2022 Absolute Eos # 0.20 [facility] Absolute Lymph # 1.70 [facility] Absolute Chicot # 0.60 [facility] Basophils (Bld) [#/Vol] 0.10 10*3/uL [facility] Basophils/100 WBC (Bld) 1 % 0 - 2 % [facility] Differential Type YES [facility] Eosinophils/100 WBC (Bld) 2 % 0 - 5 % [facility] Hematocrit (Bld) [Volume fraction] 40.9 % 36 - 46 % [facility] Hemoglobin (Bld) [Mass/Vol] 13.9 g/dL 12.0 - 16.0 g/dL [facility] Interpretation and review of laboratory results Abnormal [facility] Lymphocytes/100 WBC (Bld) 18 % 15 - 40 % [facility] MCH (RBC) [Entitic mass] 29.5 pg 26 - 34 pg [facility] MCHC (RBC) [Mass/Vol] 34.0 g/dL 31 - 37 g/dL B [facility] MCV (RBC) [Entitic vol] 86.9 fL 80 - 100 fL [facility] Monocytes/100 WBC (Bld) 6 % 4 - 8 % [facility] Platelet distribution width (Bld) [Ratio] 13.0 % 12.1 - 15.2 % [facility] Platelets (Bld) [#/Vol] 252 10*3/uL [facility] RBC (Bld) [#/Vol] 4.71 10*6/uL 4.0 - 5.2 m/uL [facility] Segmented neutrophils/100 WBC (Bld) 73 % 47 - 75 % [facility] Segs Absolute 7.20 High [facility] WBC (Bld) [#/Vol] 9.8 10*3/uL [facility] CBC with Diffon 09-04-2022 Abs. Basophil 0.10 k/uL Normal 0.0-0.2 [facility] Comment on above: Performed By: #### B HCG #### [facility] [address] [place] [address] Farm Truck Driver: Alfred Chirinos MD Abs.Neutrophil (Seg) 7.20 k/uL High 2.5-7.0 [facility] Comment on above: Performed By: #### B HCG #### [facility] [address] [place] [address] Farm Truck Driver: Alfred Chirinos MD Auto Diff Performed YES Normal [facility] Comment on above: Performed By: #### B HCG #### [facility] [address] [place] [address] Farm Truck Driver: Alfred Chirinos MD Basophils/100 WBC (Bld) 1 % Normal 0-2 [facility] Comment on above: Performed By: #### B HCG #### [facility] [address] [place] [address] Farm Truck Driver: Alfred Chirinos MD Eosinophils (Bld) [#/Vol] 0.20 10*3/uL Normal 0.0-0.4 [facility] Comment on above: Performed By: #### B HCG #### [facility] [address] [place] [address] Farm Truck Driver: Alfred Chirinos MD Eosinophils/100 WBC (Bld) 2 % Normal 0-5 [facility] Comment on above: Performed By: #### B HCG #### [facility] [address] [place] [address] Farm Truck Driver: Alfred Chirinos MD Erythrocyte distribution width (RBC) [Ratio] 13.0 % Normal 12.1-15.2 [facility] Comment on above: Performed By: #### B HCG #### [facility] [address] [id number] Farm Truck Driver: Alfred Chirinos MD Hematocrit (Bld) [Volume fraction] 40.9 % Normal 36-46 [facility] Comment on above: Performed By: #### B HCG #### [facility] [address] 3134390 Farm Truck Driver: Alfred Chirinos MD Hemoglobin (Bld) [Mass/Vol] 13.9 g/dL Normal 12.0-16.0 [facility] Comment on above: Performed By: #### B HCG #### [facility] [address] [place], [place] [address] Farm Truck Driver: Alfred Chirinos MD Lymphocytes (Bld) [#/Vol] 1.70 10*3/uL Normal 1.0-4.8 [facility] Comment on above: Performed By: #### B HCG #### [facility] [address] [place], [place] [address]87[address] Farm Truck Driver: Alfred Chirinos MD Lymphocytes/100 WBC (Bld) 18 % Normal 15-40 [facility] Comment on above: Performed By: #### B HCG #### [facility] [address] [place] [address] Farm Truck Driver: Alfred Chirinos MD MCH (RBC) [Entitic mass] 29.5 pg Normal 26-34 [facility] Comment on above: Performed By: #### B HCG #### [facility] [address] [place], [place] 0877[address] Farm Truck Driver: Alfred Chirinos MD MCHC (RBC) [Mass/Vol] 34.0 g/dL Normal 31-37 [facility] Comment on above: Performed By: #### B HCG #### [facility] [address] [place] [address] Farm Truck Driver: Alfred Chirinos MD MCV (RBC) [Entitic vol] 86.9 fL Normal 80-100 [facility] Comment on above: Performed By: #### B HCG #### [facility] [address] [place], [place] 9485[address] Farm Truck Driver: Alfred Chirinos MD Monocytes (Bld) [#/Vol] 0.60 10*3/uL Normal 0.0-1.0 [facility] Comment on above: Performed By: #### B HCG #### [facility] [address] [place] [address] Farm Truck Driver: Alfred Chirinos MD Monocytes/100 WBC (Bld) 6 % Normal 4-8 [facility] Comment on above: Performed By: #### B HCG #### [facility] [address] [place] [address] Farm Truck Driver: Alfred Chirinos MD Neutrophil (Seg) 73 % Normal 47-75 [facility] Comment on above: Performed By: #### B HCG #### [facility] [address] [place] [address] Farm Truck Driver: Alfred Chirinos MD Platelets (Bld) [#/Vol] 252 10*3/uL Normal 140-450 [facility] Comment on above: Performed By: #### B HCG #### [facility] [address] [place] [address] Farm Truck Driver: Alfred Chirinos MD RBC (Bld) [#/Vol] 4.71 10*6/uL Normal 4.0-5.2 [facility] Comment on above: Performed By: #### B HCG #### [facility] [address] [place] [address] Farm Truck Driver: Alfred Chirinos MD WBC (Bld) [#/Vol] 9.8 10*3/uL Normal 4.5-13.5 [facility] Comment on above: Performed By: #### B HCG #### [facility] [address] [place] [address] Farm Truck Driver: Alfred Chirinos MD [facility] Albumin [Mass/Vol] 4.5 g/dL 3.5 - 5.2 g/dL [facility] ALP (Bld) [Catalytic activity/Vol] 73 U/L 35 - 104 U/L [facility] ALT [Catalytic activity/Vol] 17 U/L 5 - 33 U/L [facility] Anion gap [Moles/Vol] 11 mmol/L 9 - 17 mmol/L [facility] AST [Catalytic activity/Vol] 14 U/L NINF - 32 U/L [facility] Bilirubin [Mass/Vol] 0.4 mg/dL 0.3 - 1 .2 mg/dL [facility] Calcium [Mass/Vol] 9.3 mg/dL 8.6 - 10. 4 mg/dL [facility] Chloride [Moles/Vol] 103 mmol/L 98 - 10 7 mmol/L [facility] CO2 [Moles/Vol] 23 mmol/L 20 - 31 mmol/L [facility] Creatinine [Mass/Vol] 0.47 mg/dL Low 0.50 - 0.90 mg/dL [facility] GFR/1.73 sq M.predicted MDRD (S/P/Bld) [Vol rate/Area] - PINF [facility] Comment on above: Effective May 27, 2022 [...] 103 mg/dL High 70 - 99 mg/dL [facility] Interpretation and review of laboratory results Abnormal [facility] Potassium [Moles/Vol] 3.8 mmol/L 3.7 - 5.3 mmol/L [facility] Protein [Mass/Vol] 7.3 g/dL 6.4 - 8.3 g/dL [facility] Sodium [Moles/Vol] 137 mmol/L 135 - 144 mmol/L [facility] Urea nitrogen (BldV) [Mass/Vol] 4 mg/dL Low 6 - 20 mg/dL [facility] Urea nitrogen/Creatinine (Bld) [Mass ratio] 9 9 - 20 [facility] Coding Summary.on 09-04-2022 Coding Summary. CD:[id number] Gh0bWw+PGhlYWQ+PE1FV OXhF13soXMmvI3CN8nDH Y5VSKQXESMLYP5NZI8hs ST8IFqsS9YejoOd ObonsLLfTU61ULm7ISF8 xGxsKBqdrJ8azINlE5o8 YfYeNM45yY10ERajNPPl JsV3ZvFfsyhpoKVj N8yuIxLmdYRwBpg+PHRh YmxlIHdpZHRoPScxMDAl FgYfxRoqHQ4iLq4aXPDc LWNvbGxhcHNlOiBj o0laKJGtKIsuGN4ldXvm D8MpqUA1TLBmc5h3Zb22 dHI+USSbNKQ0hFvrVZlz s884NaKyc5dwTGT5 tVYxSKagNKA4W68lz6N1 WURuEHYeXFC1xYE0jP3l lYbyvbnjM3DysHKbKmA4 DGS6mJNivW1qfFxv bcydeM4sOvd+D53BMP2J MXBRWN8DUwq3A5VqCqvi dHI+MB74LVBbFU93rWPg hOBjf1ntiBu6FmIm XOQjDRK4hScwGUayj5Pk NGFeR50rcQTfr1U9ARMr oVyzeEOoDqTqqGF3qA3p CAvlrslpq5igfqlv Chtnt0ftlp88cM29Y68h JFgrVYDmBMV7XWJeJFMv vApkhg7zgT4nYn2+IDxj m1nmn0sjtXe6MjKj MWLxdyMqyZtwTJQ9j9Ba Hq62Q7EmiQyha6DkMfy2 gx25uGXwx9R7bNV1YFvo FWCxvO2aAWqgKoZ9 YFPcCpBlqD26tMWbVWkh Ag7tkJvfuVdnDE3oYLKl msygEBLgsU0nCKBreYWw sDpyLO1wILOitais k066UbMdLFN2NOBhfVNr L6EdiQ7vMdJwWDIhMOCa L1NlaMRaWExmA076IAmu XgP3JIGhdoZlM1Qb ONSltJsxYjF8j6H6Bc8T g2CihwvbPDH7CGnqKKGt DpTvIeBhHpO5N8KjFuv7 DTBehFcoPX2mN0Co SFUeojgjqhbptLV1POHc UPGamW54eTCcXTyhHh4i o4H6t749BYSzWRWolF15 Im1prTcxQOBqyEKU lW8qathmw2cblnhyGdBh KKAyNTf8CHw4LPGphMir WmWbREL2RqO6CSS7vQEg nE8acSogzlqvyM5z Oyc+Z02dkU1nVVD8UYD1 oqxdAJFhreRuUT45SY84 T3WiMgntcUVsvMO+PGRp szHltVpnPE4eCsWp g4lim1GzNWyzO8HzIIFv UTmaSfp4AKWhHMY6sDO3 vO2aOATwBLrrr5K4zHR4 Y9GhedQtua6qv6uw MUJtJPtlH39vfUVwv9A4 TYXhiPW2ZTLwbAycGmCu vK11Tue+UYFyzYhuh8Nj Bosdj9xct7ogvDi2 IjMwJSIgdmFsaWduPSJ0 v1ViFz17T22oIGfpEOMx LXHoMVSlNFLecKnpem6h vU0hQv7+PGNvbCB3 cON2aY1xTPXcExT5JUxy Z875EdIccOSpSwgwz6cw p3twuUr9RsDwRYNpulRp iZhsJRV2p0VrMl77 Z98cRNndDCPhQXNtLGMm KIKhpFzbub3aoD9hTa9+ WS2se8fohx82hR48eON+ KYCrCVL1zQgxIWfe VRJqoS8jCQizGcX9MAYe WpFkuD43kUElSCmiOa8e xOipqCmvPO6jBNQswfsr m297RfUjr7vkJHJq iDSvOAquQXJ1R69wr6Q9 WUTiEVMzVDD1xIL4eE1k bGlnbjogbGVmdDsgdmVy kSnxRRtqZMgrW596 IHRvcDsnPlBhdGllbnQg HtGfUAj2M7JzZzp8IDNb mMioEK4mrKDaLDavWf8e rVhuyEteZL0gDJBh byqbv353JqJxy4szBGKu sUMnOFebNYZ6B31wk1Z6 ALChDVYoBOA1mAS7yT2s bGlnbjogbGVmdDsg afIxbFwbJBnjJOfuF121 IHRvcDsnPkJpcnRoIERh wEC3ZU97HO28bUGpt9I6 xQM8C6FrFKXcsuah lagmsPM9EUTuWROcuC57 Va4laLjpKg7dIMSpJKV2 UJKsfPXhX3MfiW6rVtLz TUEwYHMjS8PwrSKn OYwgO156UHxzIwF2KKZa mpZwW2MzWLYswLvyZsK1 f6K2Mc8JP4B0GN90XP00 bYAqc6Z9tUL9W5Ur YOGxukznvzvaaXI3GBZj SAStnB16Sn9sbOovFa4j PXOrUFH8LVUinEPdY5Xp oK4uQjLtJXDyTSLk E9IlnAIrPCfwF428OCkq SkG7JOAkzsQvO0TvYUGk wJzxEfM4k8Z7Pg1UMZy4 UK23YT95rIRzb9J7 cDT3D6DdZPLtbomlfqkb dPI5EVRxKQUpiT94Iy1f rXxcZd0aJGGyISZ2ANDu vZShS2MzmG1jSlVy GEJqZSPkA9HqnNWrPQvr O219ZDfaPxV2BCBscfPz B8HvRIPgpSbaEkM8f9T2 Rw0RJGLzRU20GTV0 jOO9TR23JU01X1OnDiyh dGFibGU+PHRhYmxlIHdp ZHRoPScxMDAlJyBzdHls CZ6tSb5yLZGjWNGi aQveyOBwRqAwk3tqKBLc GFwjYQ6qvJfbG3WdyRT7 AAJrd7o1Kq71T41gF8Fr dXA+YYNwqIV8aUO0 kG8oKtYsVnG6KIehG496 NxJlpUNsJhgzx5lex4ta xFh9CmF1MZPflaXuuOuz VDN6u3GjEj89I16a IHdpZHRoPSIxNSUiIHZh cDsuik2igP9mUe7+PGNv vGM1cRZ8eQ2uLoTwYoR9 BXicT513QqFkcLXx Iatle1ujn0dmiIa3AxXk XGVvnmCjxTggXHX3o4Tr Gd78M3JkzIwts3WfAso9 jr40yGPqu7B6tUP5 B9PsAIXgyqjieMGomZxr IX3fXDWiqdrbRTYsiA5s URTxI1h1KxVrIzO5GAhd J7IsvjY6ZVUxjJYm YQiyDYO2M11ak2V5VGHo MFNvMVM5tVM1eL7kfEna bjogbGVmdDsgdmVydGlj RIfjDJnwK504DSPe xGvuWFVglL7oFPEaqVHu pKeuYT0tJLRkuekdNw5T INVYKHYWHFUMIQEUIR6E QK24N9WmKfg6ODGt dRioLQ2fwURpKLkbVe5y xHptgPjfUN6oDIGiomsd URSbpA5lVFHybUDinQft ZC9dVSIdwnkcr558 DzMkTHX6CEGiiVHvE5Ld oE4sBuKoXALmHUEcU4Pr rUWoOKhoL358JLztEsH0 JOJnpvDeI7GjSHYn lXblVfT1a0F6Gz7jGU5q ID9tCDGmXY39MJ87sYEt j7Z7qVA7J9JgCMSdgkob hzrlpKO0DKRaQUPf rF70pMSgNPmrSl3gz8Y0 e703PFKjZUTifQ05Jv6v qLhySTSybFIMjU8kqqzi h2cmwsvoGvLvRONp IWu3XPa3BPIvpCgoOrTu UTM6XpX1ADL3kQGphU7z ePhozlestS5hUpx+MjEg RMQcjkY9Q2UfDcy2 KGRjfVrqMQ1jvTOzZVgk Mw6mnSiwcKwnXS7hBBDn lggpRJVjnV7fCURxaTSm dArnOP9jNZIhxgre h115HeFeTRX8IPZucRHh T3DbuR0iDkHyJOGlYEEa L6NsfDQcPTgaP173HWad InF6JVKrzyFeQ5Lo VTDjmIpiEwP5c0Z7Vc0A XM3xuUE2M6ArIow8YKJf pNxaAW2vjDCxXGpuQc4k iVobgHjiKL4xRSMo qfvdLGGqsU9nFBLlnCTf nDcbIV2wAIRzxvtbu949 UzEdVXT8GMDyvUGaP2Nt xP0lHkZnPKGgOFUh Y6IgjDYkIPigW771SDxk QwD2WPSkamFdA6MyXWCa fCiwQnE7d7J2Ix0PrESz G8HuC8y7S0EmIypz dHI+OX55IJFzBJ93eTPb qFIsn2zwsBp1BxTqQVAt WIK7dIdoGXoru4VcLUGs W62azDUjr6Y7SHNb mYponGJkMaGiwTG3rU6s XZeyzvkwa4uohpnvQsnl o6wsqz64xI85S34yZLmi ZHRoPSIzMCUiIHZh dEiipz2ywI3xXq6+PGNv rFZ9oAV5dP0tNiWzCwM5 PKfmA144KqBtyWXgRpmv a6lrn3rfdDo1VnLy FPXocuUpeKuqDZH0q1Rb Iz91Y30bNCmjZANgYOBd JDAvPIDhfAbavq3vnU0y Ii8+UC6cy6jvna38 hA47xGR+XGCsICP9zYqk BQhwTKYjdE9sYWgbApC3 CHTbOdNjsE31vEOnNWrq Pm9ygOojdLlfIU9w GQXsahfbh284UkQhn1tb POEoaNKmHGwxFMX0V63k h4C3GKUyTGOdPCR6oGQ9 zM3osExwytvqaGGd dDsgdmVydGljYWwtYWxp E477DVOsvDnqKtDzjUQv Q0msusSKIH2cYcnemEC+ PBDpYAH1xOaxORtj VCQnsA6wIULpT6f9ZvDe ViC3JZguN9VymuU3PQCl gCHsAWEneNOWrE5pvbhy v0pjtznlYeAkGPQe PIw0DJw0YOUweQsmUsEw SGD9QbZ7WZN1jGEzhT9p tHbkduxfzP3jLbh+RklO OjwvdGQ+PHRkIHN0 eZfwKGhqRLEkoY4yPTLd S3z2ErRxXjC0ZUyoL3Bq wlA3EJRsuIAvSVYvqWBO eP6ueydij2ydivxl OvAsCSQqIYj6JTj2XEBq wRjkFjWcVYN4MzA2XBV4 yQPldR6noFjjzziteP8v Oyc+TVJOOjwvdGQ+ OHSdTFC5vKgfNAcoARFb nK9xXFEiL7a8BmJoGzG3 EBetX2JfeuR9ISJfjLDb OBQfqFETuK4jinbp y9zngnpzUuIoPMQqFOi1 HYe9CFUfaVxfEyNpUYI5 KxW7ZYL0sBPjaB3xwMoi lstbxU3dAwd+UGF5 HDU5VO26BB36T6FiNufy dGFibGU+PHRhYmxlIHdp ZHRoPScxMDAlJyBzdHls XI6qTj6iKDGcBORg bGxh (more content not included)... Normal [facility] Comp Metabolic Profon 2022 Albumin [Mass/Vol] 4.5 g/dL Normal 3.5-5.2 [facility] Comment on above: Performed By: #### B HCG #### [facility] [address] [place], [place] [id number] [employer] Driver: Alfred Chirinos MD Alkaline Phos 73 U/L Normal 35-104 [facility] Comment on above: Performed By: #### B HCG #### [facility] [address] [place] [address] [employer]: Alfred Chirinos MD ALT [Catalytic activity/Vol] 17 U/L Normal 5-33 [facility] Comment on above: Performed By: #### B HCG #### [facility] [address] [place], [place] [id number] [employer] Driver: Alfred Chirinos MD Anion gap [Moles/Vol] 11 mmol/L Normal 9-17 [facility] Comment on above: Performed By: #### B HCG #### [facility] [address] [place] [address] [employer] Driver: Alfred Chirinos MD AST [Catalytic activity/Vol] 14 U/L Normal <32 [facility] Comment on above: Performed By: #### B HCG #### [facility] [address] [place], [place] [id number] [employer] Driver: Alfred Chirinos MD Bilirubin [Mass/Vol] 0.4 mg/dL Normal 0.3-1.2 [facility] Comment on above: Performed By: #### B HCG #### [facility] [address] [place], [place] [phone] [employer] Driver: Alfred Chirinos MD BUN/CRE Ratio 9 Normal 9-20 [facility] Comment on above: Performed By: #### B HCG #### [facility] [address] [place], [place] [phone] [employer] Driver: Alfred Chirinos MD Calcium [Mass/Vol] 9.3 mg/dL Normal 8.6-10.4 [facility] Comment on above: Performed By: #### B HCG #### [facility] [address] [place] [address] [employer]: Alfred Chirinos MD Chloride [Moles/Vol] 103 mmol/L Normal 98-107 [facility] Comment on above: Performed By: #### B HCG #### [facility] [address] [place], [place] [phone] [employer] Driver: Alfred Chirinos MD CO2 [Moles/Vol] 23 mmol/L Normal 20-31 [facility] Comment on above: Performed By: #### B HCG #### [facility] [address] [place], [place] [id number] [employer] Driver: Alfred Chirinos MD Creatinine [Mass/Vol] 0.47 mg/dL Low 0.50-0.90 [facility] Comment on above: Performed By: #### B HCG #### [facility] [address] [place], [place] [phone] [employer] Driver: Alfred Chirinos MD GFR/1.73 sq M.predicted among non-blacks MDRD (S/P/Bld) [Vol rate/Area] mL/min/{1.73_m2} Normal >60 [facility] Comment on above: Result Comment: Effective [...] secretion. Performed By: #### B HCG #### [facility] [address] [place], [place] [phone] [employer] Driver: Alfred Chirinos MD Glucose [Mass/Vol] 103 mg/dL High 70-99 [facility] Comment on above: Performed By: #### B HCG #### [facility] [address] [place], [place] [phone] [employer] Driver: Alfred Chirinos MD Potassium [Moles/Vol] 3.8 mmol/L Normal 3.7-5.3 [facility] Comment on above: Performed By: #### B HCG #### [facility] [address] [place], [place] [phone] [employer] Driver: Alfred Chirinos MD Protein [Mass/Vol] 7.3 g/dL Normal 6.4-8.3 [facility] Comment on above: Performed By: #### B HCG #### [facility] [address] [place], [place] [phone] [employer] Driver: Alfred Chirinos MD Sodium [Moles/Vol] 137 mmol/L Normal 135-144 [facility] Comment on above: Performed By: #### B HCG #### [facility] [address] [place], [place] [phone] [employer] Driver: Alfred Chirinos MD Urea nitrogen [Mass/Vol] 4 mg/dL Low 6-20 [facility] Comment on above: Performed By: #### B HCG #### [facility] [address] [place], [place] [phone] [employer] Driver: Alfred Chirinos MD Drug Scr, Abuse, Uron 2022 Amphetamine(s),Ur Negative Normal NEG [facility] Comment on above: Result Comment: (Positive cutoff 500 ng/mL) Performed By: #### B HCG #### [facility] [address] [place] [address] [employer] Driver: Alfred Chirinos MD Barbiturate(s),Ur Negative Normal NEG [facility] Comment on above: Result Comment: (Positive cutoff 200 ng/mL) Performed By: #### B HCG #### [facility] [address] [place] [address] [employer]: Alfred Chirinos MD Benzodiazepine(s) Negative Normal NEG [facility] Comment on above: Result Comment: (Positive cutoff 150 ng/mL) Performed By: #### B HCG #### [facility] [address] [place] [address] [employer]: Alfred Chirinos MD Cannabinoid(s),Ur Negative Normal [facility] Comment on above: Result Comment: (Positive cutoff 50 ng/mL) Performed By: #### B HCG #### [facility] [address] [place] [address] [employer] Driver: Alfred Chirinos MD Cocaine Metabolite Negative Normal [facility] Comment on above: Result Comment: (Positive cutoff 150 ng/mL) Performed By: #### B HCG #### [facility] [address] [place] [address] [employer]: Alfred Chirinos MD Methadone Ql (U) Negative Normal NEG [facility] Comment on above: Result Comment: (Positive cutoff 200 ng/mL) Performed By: #### B HCG #### [facility] [address] [place] [address] [employer] Driver: Alfred Chirinos MD Methamphetamine, Ur Negative Normal [facility] Comment on above: Result Comment: (Positive cutoff 500 ng/mL) Performed By: #### B HCG #### [facility] [address] [place] [address] [employer] Driver: Alfred Chirinos MD Opiate(s), Ur Negative Normal NEG [facility] Comment on above: Result Comment: (Positive cutoff 100 ng/mL) Performed By: #### B HCG #### [facility] [address] [place], [place] [phone] [employer] Driver: Alfred Chirinos MD Oxycodone, Urine Negative Normal NEG [facility] Comment on above: Result Comment: (Positive cutoff 100 ng/mL) Performed By: #### B HCG #### [facility] [address] [place], [place] [phone] [employer] Driver: Alfred Chirinos MD Phencyclidine, Ur Negative Normal NEG [facility] Comment on above: Result Comment: (Positive cutoff 25 ng/mL) Performed By: #### B HCG #### [facility] [address] [place] [address] [employer] Driver: Alfred Chirinos MD Propoxyphene,Urine Negative Normal NEG [facility] Comment on above: Result Comment: (Positive cutoff 300 ng/mL) Performed By: #### B HCG #### [facility] [address] [place], [place] [phone] [employer] Driver: Alfred Chirinos MD Tricyclic antidepressants Screen Ql (U) Negative Normal NEG [facility] Comment on above: Result Comment: (Positive cutoff 300 ng/mL) Drug screen results are to be used for medical purposes only. All positive results are unconfirmed. Testing for employment or legal uses should be sent to a reference laboratory for confirmation. Performed By: #### B HCG #### [facility] [address] [place], [place] [phone] [employer] Driver: Alfred Chirinos MD Drug screen multi urineon Amphetamine Screen, Ur Negative NEGATIVE [facility] Comment on above: (Positive cutoff 500 ng/mL) Barbiturate Screen, Ur Negative NEGATIVE [facility] Comment on above: (Positive cutoff 200 ng/mL) Benzodiazepine Screen, Urine Negative NEGATIVE [facility] Comment on above: (Positive cutoff 150 ng/mL) Cannabinoid Scrn, Ur Negative NEGATIVE [facility] Comment on above: (Positive cutoff 50 ng/mL) Cocaine Metabolite, Urine Negative NEGATIVE [facility] Comment on above: (Positive cutoff 150 ng/mL) Methadone Screen, Urine Negative NEGATIVE [facility] Comment on above: (Positive cutoff 200 ng/mL) Methamphetamine, Urine Negative NEGATIVE [facility] Comment on above: (Positive cutoff 500 ng/mL) Opiates, Urine Negative NEGATIVE [facility] Comment on above: (Positive cutoff 100 ng/mL) Oxycodone Screen, Ur Negative NEGATIVE [facility] Comment on above: (Positive cutoff 100 ng/mL) Phencyclidine, Urine Negative NEGATIVE [facility] Comment on above: (Positive cutoff 25 ng/mL) Propoxyphene, Urine Negative NEGATIVE [facility] Comment on above: (Positive cutoff 300 ng/mL) Tricyclic Antidepressants, Urine Negative NEGATIVE [facility] Comment on above: (Positive cutoff 300 ng/mL) Drug screen results are to be used for medical purposes only. All positive results are unconfirmed. Testing for employment or legal uses should be sent to a reference laboratory for confirmation. [facility] Urinalysison 09-04-2022 Bilirubin Urine Negative NEGATIVE [facility] Color, UA Yellow Yellow [facility] Glucose, Ur Negative NEGATIVE [facility] Interpretation and review of laboratory results Abnormal [facility] Ketones Ql (U) MODERATE Abnormal NEGATIVE [facility] Leukocyte esterase Test strip Ql (U) Negative NEGATIVE [facility] Nitrite, Urine Negative NEGATIVE [facility] pH, UA 7.0 5.0 - 8.0 [facility] Protein, UA Negative NEGATIVE [facility] Specific [place], UA 1.010 1.005 - 1.030 B ON [facility] Turbidity UA Clear Clear [facility] Urinalysis Comments [facility] Urine Hgb Negative NEGATIVE [facility] Urobilinogen, Urine Normal Normal [facility] Urinalysis, Routineon 2022 Bilirubin, SemiQt,Ur Negative Normal NEG [facility] Comment on above: Performed By: #### B HCG #### [facility] [address] [place], [place] [phone] [employer] Driver: Alfred Chirinos MD Blood, Urine Negative Normal NEG [facility] Comment on above: Performed By: #### B HCG #### [facility] [address] [place], [place] [phone] [employer] Driver: Alfred Chirinos MD Clarity (U) Clear Normal CLEAR [facility] Comment on above: Performed By: #### B HCG #### [facility] [address] [place], [place] [phone] [employer] Driver: Alfred Chirinos MD Color (U) Yellow Normal YEL [facility] Comment on above: Performed By: #### B HCG #### [facility] [address] [place] [address] [employer] Driver: Alfred Chirinos MD Comment Normal [facility] Comment on above: Performed By: #### B HCG #### [facility] [address] [place], [place] 0818090 [employer] Driver: Alfred Chirinos MD Glucose Ql (U) Negative Normal NEG [facility] Comment on above: Performed By: #### B HCG #### [facility] [address] [place], [place] 1968990 [employer] Driver: Alfred Chirinos MD Ketones Ql (U) MODERATE Abnormal NEG [facility] Comment on above: Performed By: #### B HCG #### [facility] [address] [place], [place] [phone] [employer] Driver: Alfred Chirinos MD Leukocyte esterase Test strip Ql (U) Negative Normal NEG [facility] Comment on above: Performed By: #### B HCG #### [facility] [address] [place], [place] [phone] [employer] Driver: Alfred Chirinos MD Nitrite,Ur Negative Normal NEG [facility] Comment on above: Performed By: #### B HCG #### [facility] [address] [place], [place] 71964[address] [employer] Driver: Alfred Chirinos MD PH,Ur 7.0 Normal 5.0-8.0 [facility] Comment on above: Performed By: #### B HCG #### [facility] [address] [place], [place] [phone] [employer] Driver: Alfred Chirinos MD Protein Ql (U) Negative Normal NEG [facility] Comment on above: Performed By: #### B HCG #### [facility] [address] [place], [place] [phone] [employer] Driver: Alfred Chirinos MD Spec. [place],Ur 1.010 Normal 1.005-1.030 [facility] Comment on above: Performed By: #### B HCG #### [facility] [address] [place], [place] 0991590 [employer] Driver: Alfred Chirinos MD Urobilinogen,Ur Normal Normal NORM [facility] Comment on above: Performed By: #### B HCG #### [facility] [address] [place], [place] [phone] [employer] Driver: Alfred Chirinos MD Auto Diffon 09-02-2022 Basophils/100 WBC (Bld) 0.8 % Normal 0.0-2.0 [facility] Comment on above: Order Comment: Order Added by Discern Expert. Performed By: #### 2 152298, 9768230, 0281057, 6798202, 16623230, 5351450, 2773114 #### [facility] [address] [place] [address] Basophils/Leukocytes Auto (Bld) [Pure # fraction] 0.1 E9/L Normal 0.0-0.2 [facility] Comment on above: Order Comment: Order Added by Discern Expert. Performed By: #### 2 487820, 0051771, 9848456, 9969312, 85419100, 3900320, 0897114 #### [facility] [address] [place] [address] Eosinophils/100 WBC (Bld) 2.5 % Normal 0.0-8.0 [facility] Comment on above: Order Comment: Order Added by Discern Expert. Performed By: #### 2 204885, 1200222, 8927317, 9400520, 27832272, 3027055, 4499718 #### [facility] [address] [place] [address] Eosinophils/Leukocyte s Auto (Bld) [Pure # fraction] 0.2 E9/L Normal 0.0-0.5 [facility] Comment on above: Order Comment: Order Added by Discern Expert. Performed By: #### 2 886116, 1996255, 9142765, 7937463, 17432512, 0519793, 2836708 #### [facility] [address] [place] [address] Lymphocytes/100 WBC (Bld) 18.3 % Normal 14.0-50.0 [facility] Comment on above: Order Comment: Order Added by Discern Expert. Performed By: #### 2 135958, 6790768, 4340548, 2132995, 66903678, 0916033, 5572802 #### [facility] [address] [place] [address] Lymphocytes/Leukocyte s Auto (Bld) [Pure # fraction] 1.6 E9/L Normal 1.0-4.0 [facility] Comment on above: Order Comment: Order Added by Discern Expert. Performed By: #### 2 877983, 2752822, 7947963, 8774109, 76828041, 4439922, 7789762 #### [facility] [address] [place] [address] Monocytes/100 WBC (Bld) 6.8 % Normal 4.0-14.0 [facility] Comment on above: Order Comment: Order Added by Discern Expert. Performed By: #### 2 057510, 2732844, 6035143, 7582698, 94059095, 4637086, 8686866 #### [facility] [address] [place] [address] Monocytes/Leukocytes Auto (Bld) [Pure # fraction] 0.6 E9/L Normal 0.2-1.0 [facility] Comment on above: Order Comment: Order Added by Discern Expert. Performed By: #### 2 236402, 6559758, 1389683, 3587310, 87921125, 0305535, 7670781 #### [facility] [address] [place] [address] Neutrophils/100 WBC (Bld) 71.6 % Normal 36.0-75.0 [facility] Comment on above: Order Comment: Order Added by Discern Expert. Performed By: #### 2 772553, 2875320, 4088482, 8977108, 52760479, 4086080, 9170467 #### [facility] [address] [place] [address] Neutrophils/Leukocyte s Auto (Bld) [Pure # fraction] 6.2 E9/L Normal 2.0-7.5 [facility] Comment on above: Order Comment: Order Added by Discern Expert. Performed By: #### 2 123826, 9380546, 7198054, 7098044, 36211974, 9592947, 7599708 #### [facility] [address] [place] [address] BMPon 09-02-2022 Creatinine [Mass/Vol] 0.4 mg/dL Low 0.5-1.3 [facility] Comment on above: Performed By: #### 2 300255, 2588319, 1820961, 4365891, 39590695, 3058801, 5380756 #### [facility] [address] [place] [address] Urea nitrogen [Mass/Vol] 5 mg/dL Normal 5-21 [facility] Comment on above: Performed By: #### 2 912055, 3680112, 6032945, 0678464, 13821144, 7539290, 6534452 #### [facility] [address] [place] [address] Urea nitrogen/Creatinine [Mass ratio] 12 No Units Normal 10-20 [facility] Comment on above: Performed By: #### 2 648145, 7201843, 2397511, 1621329, 00941777, 4973470, 0573864 #### [facility] [address] [place] [address] Anion gap [Moles/Vol] 12 mmol/L Normal 6-16 [facility] Comment on above: Performed By: #### 2 274956, 9413511, 3489799, 8747580, 02778479, 4565686, 7111713 #### [facility] [address] [place] [address] Calcium [Mass/Vol] 9.0 mg/dL Normal 8.9-11.1 [facility] Comment on above: Performed By: #### 2 596368, 8500753, 9908910, 7995849, 79715758, 4183137, 2814060 #### [facility] [address] [place] [address] Chloride [Moles/Vol] 103 mmol/L Normal 101-111 [facility] Comment on above: Performed By: #### 2 908771, 9249291, 4534969, 5863262, 62106438, 9505780, 5024893 #### [facility] [address] [place] [address] CO2 [Moles/Vol] 23 mmol/L Normal 21-31 [facility] Comment on above: Performed By: #### 2 140862, 6723697, 9157380, 2231026, 02498128, 8037271, 6795746 #### [facility] [address] [place] [address] Glucose [Mass/Vol] 96 mg/dL Normal 55-199 [facility] Comment on above: Result Comment: If t his glucose result represents a fasting glucose, interpretation should refer to the following reference range: 55-99 mg/dL Performed By: #### 2 656220, 1917513, 1627134, 6354246, 06782343, 9746375, 8916428 #### [facility] [address] [place] [address] Potassium [Moles/Vol] 3.3 mmol/L Low 3.5-5.3 [facility] Comment on above: Performed By: #### 2 551123, 2492529, 2581040, 0718115, 25266900, 5856024, 1906416 #### [facility] [address] [place] [address] Sodium [Moles/Vol] 135 mmol/L Normal 135-145 [facility] Comment on above: Performed By: #### 2 618191, 0654402, 4359855, 6650817, 92464980, 8742234, 9347774 #### [facility] [address] [place], [place] [id number] CBC w/ Auto Diffon 3 Erythrocyte distribution width (RBC) [Ratio] 13.0 % Normal 10.9-14.2 [facility] Comment on above: Performed By: #### 2 [id number], 8446373, 2725996, 7329101, 71647278, 9115913, 1105050 #### [facility] [address] [place] [address] Hematocrit (Bld) [Volume fraction] 38.7 % Normal 34.0-46.0 [facility] Comment on above: Performed By: #### 2 708391, 1829442, 5534315, 7017929, 57693572, 1925228, 2437979 #### [facility] [address] [place] [address] Hemoglobin (Bld) [Mass/Vol] 13.2 g/dL Normal 12.0-16.0 [facility] Comment on above: Performed By: #### 2 566370, 7215382, 7714242, 9711962, 07015413, 6261408, 9249520 #### [facility] [address] [place] [address] MCH (RBC) [Entitic mass] 29.3 pg Normal 27.0-34.0 [facility] Comment on above: Performed By: #### 2 959414, 3472886, 3521119, 9249603, 55227634, 5396286, 2953397 #### [facility] Laboratory [address] [place], [place] [id number] MCHC (RBC) [Mass/Vol] 34.2 g/dL Normal 31.4-36.0 [facility] Comment on above: Performed By: #### 2 997254, 2657892, 9489491, 1973659, 78381945, 7031778, 3227551 #### [facility] Laboratory [address] [place], [place] [address] MCV (RBC) [Entitic vol] 85.6 fL Normal 80.0-100.0 [facility] Comment on above: Performed By: #### 2 918110, 0671172, 9531214, 0643666, 64454248, 4607681, 6252631 #### [facility] Laboratory [address] [place], [place] [address] Platelet mean volume (Bld) [Entitic vol] 8.2 fL Normal 6.4-10.8 [facility] Comment on above: Performed By: #### 2 021750, 5082131, 9177266, 0974941, 52000680, 3204045, 9843871 #### [facility] Laboratory [address] [place] [address] Platelets (Bld) [#/Vol] 281.0 E9/L Normal 150.0-500.0 [facility] Comment on above: Performed By: #### 2 667694, 9451713, 1900772, 9337115, 38341109, 5268976, 8718240 #### [facility] Laboratory [address] [place] [address] RBC (Bld) [#/Vol] 4.5 E12/L Normal 4.3-5.9 [facility] Comment on above: Performed By: #### 2 740480, 2340690, 0101619, 9702136, 70354671, 3698817, 3326253 #### [facility] Laboratory [address] [place] [address] WBC corrected for nucl RBC Auto (Bld) [#/Vol] 8.6 E9/L Normal 4.0-11.0 [facility] Comment on above: Performed By: #### 2 925060, 8621620, 7835765, 2632382, 57341374, 5926151, 9053557 #### [facility] Laboratory [address] [place] [address] Coding Summary.on 09-02-2022 Coding Summary. CD:[id number] Gh0bWw+PGhlYWQ+PE1FV OLvC23kwNVjhD6BW1qCS Q2TLZEZSWZWUG5FIW0dh JW9AHuhQ0WkvmNi XaawlWCkJB17LAd4SGL7 wHljMVaoyO6xxLPhW2e1 GmKlZS97sJ50AAdbTSJs GwK5RjQqxnxpxYKt A2eqNgRctQLsYvq+PHRh YmxlIHdpZHRoPScxMDAl RgUsxTspDH7iKp1dQAJe LWNvbGxhcHNlOiBj y0ryJEVzSImlAN0fcTza H2VvzEI2ZWXwn6d6Tr37 dHI+ZTVhVLX9hKreAOij k638UlObv2nzSNX8 kLSdMHnpBQI2B56kz5Z7 QLNaMVVpGKC5mYT5mR0x xWahtplxI5TlkBCuWzH1 EYT4qKWhkI4cxKhm rgcjiY3yLra+Y53GLE5U PYAOYV2XPuf1B8JaTcwb dHI+EI18QWZkLM97vLTu uSTty7ofdXh8DzIt MQKwQZV5sQvbEJsfo3Nw TFJqO38dlNHeq7W5ZEJa jUfagHFnOfVfqFF0yH2c COlclryop0wjuuyn Yjubl3ycfx43gH34U62z ICheKROsNYC8CWRuIJSp zQthnw0emH9zMe6+IDxj l8pko0mzzIi3CuDa TAGvenBfvVipUZY5c8Bv Ey05Y5SspStoi6XzKhc0 ew62qCKxr1I3kJJ2CUhv JICatD8bSPlbPhF0 EISeXwCjlX37eDIlEOfd Za5xxRdxuNhsQY2iUDNs ozmmTJBxrQ9sNHNcbEQb fVqpVS8kPKCvgvfc d924XoHcHSY2NYSxtRNb R1EzpQ7gDyYqHMRaVHUz F1XahMVeXObrR184CNpg TiG0XMRjviHjI1Im OBJltYtnEeC3b1Y3Uu5H u7HmprjmZYN0GYrnTLKx YyX3CwQtJlU7Q2BiNvd1 MIXtuIjzFR0cO2Pu FQZgisujcvvqaLW0EGSj IWHqpL06wMYwFDddOv9j y1Z7s352PNAeBJEjuF40 Vx6gtYxnPFRtnMKP gQ0ewbobi5euhwmbIqLf JDDbYMr5YXb1YNTbjLpw AmTsLMA2DjE2JCO9nFCi vP9qfVtjloolmH2l Oyc+B90fwR2cJNJ7VFO9 ncrwVILrbbZlJE97VA61 S9UcQgbrfSTouOB+PGRp vdShyVkxFC5bFqHv q2rwh9QvSVsyU2JfELGg ZIxiRxw1BUEsZPH8gJJ8 yA2qSECzGWrxt4H5gLJ2 W9TxkzIagg4aq8ad XTSlNVewG36kxPJom0Y3 TVMulBE3XZFdqNejIqQv yA76Ewf+QMBctSaxu7Qp Temyc0mlr1onwXc1 IjMwJSIgdmFsaWduPSJ0 d6VwUz83W10uPRxbSKFv UINmDXFaZIEsyWusac0k qB8rOq8+PGNvbCB3 wTR6dZ0cFYHgJkI1MLeo Z930FlVvtDEyNalno7wv w0pfuUk7SqTyANPpdhLw fMdvOKB1i2NlXj04 E68jJTorVYMuHDIdLAUq WTVxxZehfc8zzI6qVu4+ UG0yj3bske09fC49sYI+ MRYhATA8oDnnFCmu IKRfoQ8hZHzkLoD6EAPo RrBjvP33pWNwBRrgUo8g bZapzLzbZI8jIEYiicpm w176ClVtj4agQHIx xHMlSHsdTKQ8X07hj3M6 APQpMUJdLOA1wEX4vD8q bGlnbjogbGVmdDsgdmVy pScsWAnxWFwpT652 IHRvcDsnPlBhdGllbnQg KtZfNKa8F9XbSby3CUWa uHvtKZ4tqQGeGTpeCe1h oHrjtMlqIS3hUASl llvbw561ZyRwq0vtNQFm iKKjADnrRNQ4N16oa0P7 WMQoGHVbVBG3dTX1qP3u bGlnbjogbGVmdDsg tnMmmAxqLWkdJTluL260 IHRvcDsnPkJpcnRoIERh kXX2AV73FV70wVCdi6J0 nMB1Z7XxSGPobfnp awxdjLU7AAMpPZYqaF40 Py4vhBhhGq5dJBZoOHK3 ONFiaXGzA4HmaF6mYeCc WRHdASWfQ8SoyYRn EArsN083XIlpLnK8VQRp umTmH1ZmBFLkzRxrAmD4 y7Y5Pc4YL3B2BJ70BG92 gKZhf8P5nZZ7L1Gf DFKetzlcmtjuzFI6NNEt DTVfdA95Od8hjQouAw6l SGWuBZV8LSImtPKyN6Uh eZ4aThCxYEHcGKJo F8LlyWRiHRzoN514RYem FwB8SUZmfsUvD6XqLINp kMtsEpE3l2S5Mw9RKYu3 VP56RQ71uXVue6X6 cKI1L6XnKIAbusdglppu pSC2RNGxQCYjaA10Iz0n oNtzVq0lFXToLLS6EHBi zRAaB4ClpD9xCjYf CKHlOJPyK4WxyZAnSMgu T588YLdoAlZ1FFWmidEl Z7EuHFRsrHfiOmA5c1C0 Sb6IWPBiHG01AMF2 wUK7ZG62ZA03X3NjEjfq dGFibGU+PHRhYmxlIHdp ZHRoPScxMDAlJyBzdHls CH1tGi7rCPNuJQVz uAthyZBgInJvi2wvTCOq PRkdIP4mhEsmE5VkoZP2 RUQum7a8Oq05D75dQ7Ew dXA+TARgmXT6dHR4 oH4kHdNcQyT6FLgjQ980 PxRlwZRlZggrs4guo7sw tSd6XpM3OLSamiOzdDqo LUB4x2DqLs82L77m IHdpZHRoPSIxNSUiIHZh aRhazg7qkC6iPl3+PGNv aHZ3iHW4jO1vBzQvGqH6 VQokY659VxPjoSYs Yvbnf4zpz3tmyOj3HdBd UKXkpbXxyLrjMDS7p8Na Qr76Q7XgvBxju5DgAer1 cx13aVPwe5G8sBN0 Z3LxWKOgocaviARtmJer MC5aMNVlxcvcLOIehS9h MEEsO1u3KlNvXsK3KHew M9GfetT4FRHgoYJj JFlvWNR9V00yu0I7JQHw QHNpRDP2lSE9dW4awKeq bjogbGVmdDsgdmVydGlj WFjvAYrhX076HLIc cZriNHYoiG8jROLbfUSv sFvbLC7sSAPammjdOl0A QCBJHCXNNDOTZGQYDR8G WX29P2XzFxs9RCGo jOjnKW0lfASiVDgyEb8c pGhopAwiIJ2zMBWgowxi KBAjpS7cOLUevLQkaAry UW0jAIRbykfav081 YlLkMHG3GQEqxFFxG2Nx vR6bKbYqJRWtGEMsY7Ta qWYiHBkwM226ZLbmQgV8 CPZdjqYeO8PnUBOo pQxyAyK3m6F4Hg4gHP3g SX0dSABlPI96YQ73vHEi o2D1iNV3W5ZeHLVahqgp tuopdED2UDZbXISr cM83oWIeFUdlEj7su9W9 p812YTPkDIXgnR29Sa4e dOjzCIAuxPIFbN6ntrig g4rryjwpKsHpZFQe CQt9FKs6NMDrfVqeTrEp PKP2WpF1EFV9lALioV8n sMaegwjmzJ0kYrw+MjEg UNYnhhX2Q0ZtAbb3 RZPqhSzaRN3dfUElGCze De6wcGhjtNciXJ5eSFTy iekgAWCxoK6cERMmpURp yYlkCR9dDSCezniz v741ZxLwPLE3AXIptGUa A6MwiG7qMpRcRNSxLVTi Z4WltONzSIomE390IGoi LxA0BPPzadHsN2Ym FMFwbZbvQbF9a0Y9Js5U OA6rjMP6C8IsSud8IUVk jXecNQ4hvIMnFNzyOb6m mBvzoLqvMQ0aUNVr bmkrKRUfyJ3ePYKdtELs tZrwLT2gUDWwguegg790 FwFcRSQ4GIIosXGsK6Kv iT8tDqRrYMArZLQc J4DrwHPtBRmcK232GEjz TeH1DLMiogOqD8UlNHId lKttLwM0t0W3Zl0GjRDe J0EdX5i3C1JcBwua dHI+LO50QDMpMI41mYMa dWSpe8puhGa1ZdNaHZCm LJR6sBpwDKkls7DpDMBt Z41ocXEzw1C3AQZm gLfowUMlRfEtnAK6bV7j BTniwfwlk5kxgssiKisc y0jgbc49cE81L48dIMsa ZHRoPSIzMCUiIHZh rKurpv9qjV4oRf4+PGNv iDB2pKR9xR3mHvJwUbS8 YMkuJ875NwSwiREcXmdy f6yyx2ubdPa8GjQn BFLpnsOifYhdKIL5q9Ec Yl87Z39dWEgbCRReMCPf AEPnHRQnqEpgki0ckP3y Ii8+GB9jl7sxrd89 iG70aCV+YLPqEVA4eMwt ZMpaDAWhsD9vARtfPzF2 FYOpLoGfwF06qTJbDGea Tv1fdKmthYsmKI6c NXVoiwbrj004EtMjv4fr OYKjcQPwTNnxPBE6Y63e r6S9JCXlPSRlYIG3xAS5 aQ1dyKlqftywhCZk dDsgdmVydGljYWwtYWxp N046INMlgJtnMnJsyPSi T0uqdlEGUG9lMjuxyZG+ CWInSHR3pFokMWfq ALTvbZ9gBQXqR7t8SkCv FqM5DFzxF1FslwF9YRJm sGMfJVJnlTQImC3hzdmx u2qfcxrbBvKiVWBl ZGm1IPg9TAXfnBajUqCx MSO5TpY0ZBP0dFOsxQ5c nYfyyrptpD4sLij+RklO OjwvdGQ+PHRkIHN0 vAkyLRooHXUloW4jZLWc Y9v5JvOkVpL9VLkcX2Ga waJ5EFDqhMTtNTShlWYR iM8szwkhx9uoqalm ZoDxREGpMLs6PDr4GMMg zSofPrWoBIK3TkQ6CKZ3 bUSsuL6reXgbarsofF4h Oyc+TVJOOjwvdGQ+ ENHaUOH9dNfiRQapMTJg sD8cBDVeC2i5TuZcVlP2 VIkpL2MnwdX1HKWfdSXj FIShmABAxY7pvbzt x2mtrkziSrBdFLChKHh0 QOh3OIWbaNssNsMcHWD6 EzI6FIB0zKRxsG8mcDag zxajgC5cOqo+UGF5 HSA1NK13RO22L6GaGjah dGFibGU+PHRhYmxlIHdp ZHRoPScxMDAlJyBzdHls YE0oSd8aJCVzSQDr bGxh (more content not included)... Normal [facility] Consent for Treatmenton Consent for Treatment [id number]:[address] [facility] Discharge Instructionson Discharge Instructions [id number]#1.00CD:[address] [facility] ED Clinical Summaryon 2022 ED Clinical Summary [place] [id number] ED Clinical Summary Person Information Name: ROQUE PIERSON Maribel/[facility] Age: 22 Years : 2000 Sex: Female Language: Qatari PCP: Caryn Aviles MD Marital Status: Single [...] 09/02/2022 01:12:07 09/02/2022 01:12:07 09/02/2022 01:12:07 ADDRESS: [address] [place] [id number] PHYS DOC NOTES: MEDICAL INFORMATION: Prescriptions Given: [...] Adult Follow up: With: Address: When: Caryn [place] [address] Business (1) In 3 days DIAGNOSIS: N&V (nausea and vomiting) Normal [facility] ED Note-Physicianon 09-02-19 ED Note-Physician Basic Information Time Seen: Coleman Ludwig DO 09/01/2022 22:41 Chief Complaint Pt. presents to [...] In [address] [place] [address]- Business (1) Additional Instructions: Patient Education Nausea [...] (09/01/22 22:50:00) (more content not included)... Normal [facility] Comment on above: Result Comment: Nadine troemilally Signed By: Coleman Ludwig DO\.br\Date and Time [...] added (diluted fruit juice). ? Eat bland, mign-ee-jdeefp foods in small amounts as you are able. These foods include bananas, applesauce, rice, lean meats, toast, and crackers. ? Avoid fluids that contain a lot of sugar or caffeine, such as energy drinks, sports drinks, and soda. ? Avoid alcohol. ? Avoid spicy or fatty foods. General instructions ? Take kcry-ika-upqwubu and prescription medicines only as told by your health care provider. ? Drink enough fluid to keep your urine pale yellow. ? Wash your hands often using soap and water. If soap and water are not available, use hand child care giver. ? Make sure that all people in [...] and drinking to prevent dehydration. ? Take xvrg-hgq-hyvqxvz and prescription medicines only as told by [...] Reviewed: 01/19/2019 Elsevier Patient Education ? [address] [facility] ED Patient Summaryon 023 ED Patient Summary [address] [id number] Patient Discharge Instructions Person Information Name: ROQUE PIERSON Age: 22 Years Arrival Date: 09/01/2022 22:21:17 Discharge Diagnosis: N&V (nausea and vomiting) Primary Care Physician: Caryn Aviles MD Provider Information Primary Provider: Coleman Ludwig DO Advanced Methods Study Analyst:None The exam and treatment you received in the Emergency Department were for an urgent problem and are not intended as complete care. It is important that you follow up with a doctor, nurse practitioner, or physician?s bindery library technical assistant for ongoing care. If your symptoms become [...] Instructions: With: Address: When: [place] [address] Business (1) In 3 days In the event that this physician does not participate in your insurance network, please consult with your insurance company to find a nearby participating provider. Patient Education Materials: Nausea and Vomiting, Adult A MESSAGE TO ALL PATIENTS REGARDING OPIOIDS PRESCRIPTION OPIOIDS: WHAT YOU NEED TO KNOW Prescription opioids can be used to help relieve uifzibsn-jj-dbgdcn pain and are often prescribed following a [...] be struggling with addiction, tell your health adult caregiver and ask for guidance or call [facility]?S National Helpline at 7-800-588-WGBW. c Source: Department of (more content not included)... Normal [facility] Hep Func Panelon 09-02-2022 Bilirubin.indirect [Mass or moles/Vol] UTC Abnormal 0.1-0.9 [facility] Comment on above: Result Comment: Resu lt verified by Discern Rule. Performed result UTC (Unable to Calculate) was sent as an Alpha code due the inability to calculate a valid numeric value. Performed By: #### 2 862940, 1198916, 9283096, 9223399, 12277133, 1092828, 7869631 #### [facility] Laboratory [address] [place] [address] Albumin [Mass/Vol] 4.2 g/dL Normal 3.3-5.0 [facility] Comment on above: Performed By: #### 2 053502, 9210291, 5841431, 6485178, 37762029, 2293630, 1281677 #### [facility] Laboratory [address] [place] [address] Albumin/Globulin (S) [Mass conc ratio] 1.4 Normal 1.1-2.2 [facility] Comment on above: Performed By: #### 2 016965, 2181392, 8063318, 0018913, 60396731, 0862123, 8504220 #### [facility] Laboratory [address] [place] [address] ALP [Catalytic activity/Vol] 63 Int._Unit/L Normal 21-98 [facility] Comment on above: Performed By: #### 2 765134, 3099791, 8154037, 3334626, 39440259, 1653312, 9432549 #### [facility] Laboratory [address] [place] [address] ALT No additional P-5'-P [Catalytic activity/Vol] 29 Int._Unit/L Normal 6-46 [facility] Comment on above: Performed By: #### 2 542082, 3047775, 0065318, 3255542, 98912694, 6745201, 2599226 #### [facility] Laboratory [address] [place] [address] AST [Catalytic activity/Vol] 18 Int._Unit/L Normal 5-43 [facility] Comment on above: Performed By: #### 2 245618, 6631295, 4591197, 8673663, 88004800, 2949907, 2789208 #### [facility] Laboratory [address] [place] [address] Bilirubin [Mass/Vol] 0.8 mg/dL Normal 0.0-1.1 [facility] Comment on above: Performed By: #### 2 116557, 6566689, 3348318, 9703371, 26208643, 6256330, 2884532 #### [facility] Laboratory [address] [place] [address] Bilirubin.direct [Mass/Vol] mg/dL Normal 0.1-0.4 [facility] Comment on above: Performed By: #### 2 178392, 3045628, 6617330, 0768080, 29227974, 7061217, 2179093 #### [facility] Laboratory [address] [place] [address] Globulin (S) [Mass/Vol] 3.1 g/dL Normal 1.4-4.0 [facility] Comment on above: Performed By: #### 2 931543, 0226333, 9154030, 9670940, 92645695, 9776232, 3689461 #### [facility] Laboratory [address] [place] [address] Protein [Mass/Vol] 7.3 g/dL Normal 6.0-7.8 [facility] Comment on above: Performed By: #### 2 682726, 5805495, 6856987, 9143255, 54998031, 8908760, 9295089 #### [facility] Laboratory [address] [place] [address] Lipase Levelon 09-02-2022 Lipase [Catalytic activity/Vol] 26 U/L Normal 13-58 [facility] Comment on above: Performed By: #### 2 348189, 4558906, 5979547, 0434099, 11493397, 6762932, 6101102 #### [facility] Laboratory [address] [place] [address] UA With Cult Reflexon 2022 Bacteria LM Ql (Urine sed) TRACE Normal Trace [facility] Comment on above: Performed By: #### 1 8894905 ####[facility] [address] [place] [address] Bilirubin Ql (U) Negative Normal Negative [facility] Comment on above: Performed By: #### 1 4388063 ####[facility] [address] [place] [address] Clarity (U) CLEAR Normal Clear [facility] Comment on above: Performed By: #### 1 2025379 ####[facility] [address] [place] [address] Color (U) YELLOW Normal Yellow [facility] Comment on above: Performed By: #### 1 6133464 ####[address] [address] Epithelial cells.squamous LM.HPF (Urine sed) [#/Area] 0-2 Normal 0-2 [facility] Comment on above: Performed By: #### 1 6063266 ####[facility] [address] [place] [address] Glucose Test strip (U) [Mass/Vol] Negative Normal Negative [facility] Comment on above: Performed By: #### 1 0418988 ####[facility] [address] [place] [address] Hemoglobin Ql (U) Negative Normal Negative [facility] Comment on above: Performed By: #### 1 5833964 ####[address] [address] Ketones (U) [Mass/Vol] 3+ Abnormal Negative [facility] Comment on above: Performed By: #### 1 8721791 ####[address] [address] [place].plasma/Lithiu m.RBC (Bld) [Mass ratio] 0-3 Normal 0-3 [facility] Comment on above: Performed By: #### 1 4389919 ####[place] [address] [place] [address] Mucus Ql (Urine sed) 2+ Normal Fish er [facility] Comment on above: Performed By: #### 1 9164237 ####[address] [address] Nitrite Ql (U) Negative Normal Negative [facility] Comment on above: Performed By: #### 1 8462159 ####[address] [address] pH (U) 7.5 [pH] Invalid Interpretation Code 5.0-9.0 [facility] Comment on above: Performed By: #### 1 2642763 ####[address] [address] Protein (U) [Mass/Vol] Negative Normal Negative [facility] Comment on above: Performed By: #### 1 8169188 ####[address] [address] Specific gravity (U) [Rel density] 1.020 Invalid Interpretation Code 1.005-1.030 [facility] Comment on above: Performed By: #### 1 8890128 ####[address] [address] Type of Urine collection method Clean Catch Normal [facility] Comment on above: Performed By: #### 1 0234951 ####[address] [address] Urobilinogen Qn (U) 0.2 {Andrea'U}/dL Normal 0.0-1.0 [facility] Comment on above: Performed By: #### 1 9891897 ####[address] [place] [address] WBC Auto Ql (U) Negative Normal Negative [facility] Comment on above: Performed By: #### 1 0619519 ####[facility] [address] [place] [address] WBC LM.HPF (Urine sed) [#/Area] 0-5 Normal 0-5 [facility] Comment on above: Performed By: #### 1 8653708 ####[facility] [address] [place] [address] eGFRon 09-02-2022 GFR/1.73 sq M.predicted among blacks MDRD (S/P/Bld) [Vol rate/Area] mL/min/{1.73_m2} Normal >=59 [facility] Comment on above: Order Comment: Order Added by Discern Expert. Result Comment: eGFR is race adjusted. AA=. Performed By: #### 2 083353, 7054009, 1794675, 4672495, 42248733, 2827574, 5948166 #### [facility] Laboratory [address] [place] [address] GFR/1.73 sq M.predicted among non-blacks MDRD (S/P/Bld) [Vol rate/Area] mL/min/{1.73_m2} Normal >=59 [facility] Comment on above: Order Comment: Order Added by Discern Expert. Result Comment: Foam Rubber Fabricator emil kidney disease could be indicated at eGFR's of less than 60 mL/min/1.73m2. Kidney failure is indicated at less than 15 mL/min/1.73m2. Performed By: #### 2 966343, 7905743, 0961060, 2517142, 83071417, 4775794, 1658193 #### [facility] Laboratory [address] [place] [address] ABO/Rhon 08-29-2022 ABO/Rh Positive Invalid Interpretation Code [facility] Comment on above: Performed By: #### 1 0839044 #### [facility] Laboratory [address] [place] [address] Auto Diffon 08-29-2022 Basophils/100 WBC (Bld) 0.6 % Normal 0.0-2.0 [facility] Comment on above: Order Comment: Order Added by Discern Expert. Performed By: #### 2 585115, 5751302, 5295937, 5520221, 57004717, 2130218, 0324186 #### [facility] Laboratory [address] [place] [address] Basophils/Leukocytes Auto (Bld) [Pure # fraction] 0.0 E9/L Normal 0.0-0.2 [facility] Comment on above: Order Comment: Order Added by Discern Expert. Performed By: #### 2 309830, 4928546, 5447053, 0840569, 71353267, 5083501, 8617883 #### [facility] Laboratory [address] [place] [address] Eosinophils/100 WBC (Bld) 5.7 % Normal 0.0-8.0 [facility] Comment on above: Order Comment: Order Added by Discern Expert. Performed By: #### 2 644021, 4166765, 5148503, 9594554, 70096208, 7505497, 0875914 #### [facility] Laboratory [address] [place] [address] Eosinophils/Leukocyte s Auto (Bld) [Pure # fraction] 0.5 E9/L Normal 0.0-0.5 [facility] Comment on above: Order Comment: Order Added by Discern Expert. Performed By: #### 2 237420, 1436810, 1447130, 5070291, 78722950, 5855536, 2667237 #### [facility] [address] [place] [address] 42697 Lymphocytes/100 WBC (Bld) 20.5 % Normal 14.0-50.0 [facility] Comment on above: Order Comment: Order Added by Ally Expert. Performed By: #### 2 781547, 7092000, 0452576, 4925383, 03373354, 6779913, 2182583 #### [facility] [address] [place] [address] 70380 Lymphocytes/Leukocyte s Auto (Bld) [Pure # fraction] 1.7 E9/L Normal 1.0-4.0 [facility] Comment on above: Order Comment: Order Added by Discern Expert. Performed By: #### 2 593166, 0505451, 1652960, 0750542, 79451126, 7318829, 4892121 #### [facility] [address] [place] [address] 52858 Monocytes/100 WBC (Bld) 8.4 % Normal 4.0-14.0 [facility] Comment on above: Order Comment: Order Added by Discern Expert. Performed By: #### 2 971203, 5112156, 5367582, 6234472, 48720631, 5548060, 2660595 #### [facility] [address] [place] [address] 28045 Monocytes/Leukocytes Auto (Bld) [Pure # fraction] 0.7 E9/L Normal 0.2-1.0 [facility] Comment on above: Order Comment: Order Added by Discern Expert. Performed By: #### 2 904389, 1103158, 7825624, 0046425, 43026415, 8222517, 1717925 #### [facility] [address] [place] [address] 11043 Neutrophils/100 WBC (Bld) 64.8 % Normal 36.0-75.0 [facility] Comment on above: Order Comment: Order Added by Discern Expert. Performed By: #### 2 547331, 9314119, 8581957, 3159096, 96825724, 4187248, 1960266 #### [facility] [address] [place] [address] 48439 Neutrophils/Leukocyte s Auto (Bld) [Pure # fraction] 5.3 E9/L Normal 2.0-7.5 [facility] Comment on above: Order Comment: Order Added by Discern Expert. Performed By: #### 2 686705, 7813395, 6680607, 0349704, 50759474, 8139193, 2765436 #### [facility] [address] [place] [address] [place] 08-29-2022 Creatinine [Mass/Vol] 0.6 mg/dL Normal 0.5-1.3 [facility] Comment on above: Performed By: #### 2 027955, 8566912, 7355673, 3702095, 43170126, 1212254, 0900484 #### [facility] [address] [place] [address] Urea nitrogen [Mass/Vol] 6 mg/dL Normal 5-21 [facility] Comment on above: Performed By: #### 2 552150, 3972439, 9942998, 0100663, 30513525, 2935619, 8515368 #### [facility] [address] [place] [address] Urea nitrogen/Creatinine [Mass ratio] 10 No Units Normal 10-20 [facility] Comment on above: Performed By: #### 2 339569, 0888333, 6722260, 4472158, 49250296, 9959765, 8321933 #### [facility] [address] [place] [address] Anion gap [Moles/Vol] 11 mmol/L Normal 6-16 [facility] Comment on above: Performed By: #### 2 082417, 4237098, 4026214, 3579596, 26905379, 1180875, 7242732 #### [facility] [address] [place] [address] Calcium [Mass/Vol] 9.1 mg/dL Normal 8.9-11.1 [facility] Comment on above: Performed By: #### 2 076553, 4598730, 6093115, 3907893, 73791068, 2428983, 0710887 #### [facility] [address] [place] [address] Chloride [Moles/Vol] 105 mmol/L Normal 101-111 [facility] Comment on above: Performed By: #### 2 652385, 8351893, 4980749, 6015034, 02496501, 0719170, 8705413 #### [facility] [address] [place] [address] CO2 [Moles/Vol] 23 mmol/L Normal 21-31 [facility] Comment on above: Performed By: #### 2 642458, 3604927, 8219428, 1692158, 32501506, 0659992, 4403458 #### [facility] [address] [place] [address] Glucose [Mass/Vol] 103 mg/dL Normal 55-199 [facility] Comment on above: Result Comment: If t his glucose result represents a fasting glucose, interpretation should refer to the following reference range: 55-99 mg/dL Performed By: #### 2 490935, 8607873, 5125396, 3176828, 12058511, 5475651, 8139883 #### [facility] Laboratory [address] [place] [address] Potassium [Moles/Vol] 3.7 mmol/L Normal 3.5-5.3 [facility] Comment on above: Performed By: #### 2 058279, 2378752, 7593409, 2934119, 71513535, 9079551, 3159814 #### [facility] [address] [place] [address] Sodium [Moles/Vol] 135 mmol/L Normal 135-145 [facility] Comment on above: Performed By: #### 2 519228, 8296147, 6148179, 6351958, 86530794, 1291428, 8430184 #### [facility] [address] [place] [address] BhCG Quanton 08-29-2022 [place] [address] m[IU]/mL High 1-3 [facility] Comment on above: Result Comment: GEST ATIONAL AGE HCG RANGE (mIU/mL) NON- <1-3 0.2-1 WEEKS 5-50 1-2 WEEKS 50-500 2-3 WEEKS 100-5,000 3-4 WEEKS 500-10,000 4-5 WEEKS 1,000-50,000 5-6 WEEKS 10,000-100,000 6-8 WEEKS 15,000-200,000 8-12 WEEKS 10,000-100,000 Performed By: #### 2 457976, 9236183, 1569684, 2527767, 49863019, 3545379, 4217828 ####[facility] [address] [place] [address] CBC w/ Auto Diffon 3 Erythrocyte distribution width (RBC) [Ratio] 13.1 % Normal 10.9-14.2 [facility] Comment on above: Performed By: #### 2 511920, 6750420, 8830646, 7521119, 08557267, 4542167, 7715250 #### [facility] [address] [place] [address] Hematocrit (Bld) [Volume fraction] 39.2 % Normal 34.0-46.0 [facility] Comment on above: Performed By: #### 2 261586, 7795897, 1729797, 6655899, 38399619, 2684369, 1666450 #### [facility] [address] [place] [address] Hemoglobin (Bld) [Mass/Vol] 13.5 g/dL Normal 12.0-16.0 [facility] Comment on above: Performed By: #### 2 576089, 0127134, 1768578, 3719447, 66620828, 6538728, 4427297 #### [facility] [address] [place] [address] MCH (RBC) [Entitic mass] 29.5 pg Normal 27.0-34.0 [facility] Comment on above: Performed By: #### 2 926492, 7323120, 0008133, 8042842, 56216905, 1111538, 4916913 #### [facility] [address] [place] [address] MCHC (RBC) [Mass/Vol] 34.3 g/dL Normal 31.4-36.0 [facility] Comment on above: Performed By: #### 2 351981, 7021179, 4424202, 9997793, 58190349, 5636528, 0318359 #### [facility] Laboratory [address] [place] [address] MCV (RBC) [Entitic vol] 85.8 fL Normal 80.0-100.0 [facility] Comment on above: Performed By: #### 2 035572, 7314393, 1628947, 1134647, 28781086, 0320607, 6430613 #### [facility] [address] [place] [address] Platelet mean volume (Bld) [Entitic vol] 8.3 fL Normal 6.4-10.8 [facility] Comment on above: Performed By: #### 2 992440, 8046260, 7462306, 1093590, 33960986, 1604827, 9436600 #### [facility] [address] [place] [address] Platelets (Bld) [#/Vol] 279.0 E9/L Normal 150.0-500.0 [facility] Comment on above: Performed By: #### 2 803538, 6722922, 9972957, 5157800, 61371780, 5577670, 0632229 #### [facility] [address] [place] [address] RBC (Bld) [#/Vol] 4.6 E12/L Normal 4.3-5.9 [facility] Comment on above: Performed By: #### 2 401939, 3085821, 7955871, 9125788, 85608111, 7760426, 4472620 #### [facility] [address] [place] [address] WBC corrected for nucl RBC Auto (Bld) [#/Vol] 8.1 E9/L Normal 4.0-11.0 [facility] Comment on above: Performed By: #### 2 876952, 6789584, 3286191, 6835862, 68309096, 9380031, 1313562 #### [facility] [address] [place] [address] Coding Summary.on 08-29-2022 Coding Summary. CD:[id number]:[id number] Gh0bWw+PGhlYWQ+PE1FV RLfF85kzFRmqU6WW5cLL W3LNZOCXDWWTJ5TOT7eb GF6TXvqO9BxhxVu XtfyrQInFA21BOk7ONL3 pVjkXAbrtU5wzXGdI3a4 BiIeNP56lG95CUtlVMHz CcR4NiZxbnvbkCIv Y0cgTqWauLJlTnf+PHRh YmxlIHdpZHRoPScxMDAl SwNehViuGN2nOg0fFJAb LWNvbGxhcHNlOiBj w8pwELQeXEtfYC7alGqu Y7PbzHX3KFCby8c8Go06 dHI+YRIxWMC0dFodURlb k097KwGxm6mdPWX7 rJWfEWwvQUY9T93ii8V8 EWWoHPCeMAH0rSA4kU5w oThcpkddZ6TzdXCiQdU6 ZFK3vONoeG9hqMmq voptbL1mKbf+R67TRO4W MEIZDR2SGmw5D8AjCzuk dHI+IB21IMEmPO27oTHw eOBwd7cynUf7EdRs AKTxLMH5wNpoYYygd4Gy YFGyL60qnTAlv1L2RYUt iPsatDVvSuYtsAP0tO9z TZlsjmylh5gsgokj Uaxbl2vqxy40iK91B60w IUucUICjSAD4ZVAdXCYj fRdhaz7vsU3hGq9+IDxj e3xwf6qqsFv6EyUz VLDiocYmkXyeKCB5q1Xt Jd70A6WfnUdkb7DxOga4 dj67sADvd1L6xWL9OIje NFToxW4hWDxoHxW9 HYHiLaIxlH03pUEgZOhu Bx8zuLozvQyvCF0nQGRp vxpzQWAwwZ8uESXeaNHk oYxcQP9wDGFblbtp i227DcZvWBX8PTRkfESr H4CkvK9qSwKlTUEjPZGj X4NmvESyTLzjH381OMzi JyS3RNFeqbLyK0Rk YLAduCzpMjB7w6E2Hl8Z g3OeaenoQYO8HEvfONCb NgG3FjUhZmV4S4EbJip8 SIVzmHtjPB1kT5Rz POEondzdhwlvsXA5EKTz RDBmiZ34pHRbTIvaGq7p k4W7g987XRIkHZSrzF07 Aw5srEoaWLCwhXJD mC6kojxsb6oqcxduAhSw MKGkYSi5LWx9EKJhyZsk WgWpGXF6EuG7SSM4fRDz wH1pfAtozwiaeW7q Oyc+B51xvK0sGLA8DKR3 nspeXYLuqsGkCL43OZ24 U1NsUbjqfIBskBC+PGRp btYjhMcuWO9zTaHg b8zda3TgQAfiK0GmOMHx HLyqFlj6XUDfRRF8bLO9 hP2sBFNnHCfwh1M2cEY4 I1YjxxXzwc1jm7hl SXEfHEywU18hzSLrs8S6 UXBuxRZ2XYNsgEfvFoGr yF59Vni+SXRmgJgwg4Zq Oipvm6jxx5muzZv5 IjMwJSIgdmFsaWduPSJ0 e9GzOc22W76aRPkqYCRf GOBdESBnDBWyfXcrsa3p tK5tVo8+PGNvbCB3 xDR6xU9aTMZtOvB0AQdo L691XfBsgSHkLbcbi1ji e0smuKh1EmMoVRMgbwHy nMcuIHF8t7ZmDi60 W96lSFcoBHYeMLQoZZJb YWCnaCzikm0phO3nSw1+ DZ3nb8udec85bB26pVX+ POXlREV1tLdiGWml EIYohJ4fMTpfEwU3YALv NdBxnV12mVKmBOcxFr1d mIzijIfnHU2qWRJthmix g509XiVlj2yaEDOk aHItFChnZOB4I53ec4D1 AJIcPSHpUAI3wYO8gP1n bGlnbjogbGVmdDsgdmVy rSvwXAndYWnqD334 IHRvcDsnPlBhdGllbnQg LqDaNAv4C6TmQnj7HHYb rVhaWI2nsVCfQWhkFx2s lRbpqRdfVQ2cDTFy cbtav496FpBms5dmSSCs mYRoDZyrBZP3S60nq7Y2 ALSxHXRrPGE1xLO2aA3e bGlnbjogbGVmdDsg ebUyuMnzSHpiWHdaV194 IHRvcDsnPkJpcnRoIERh fSR0MQ33FV73kGEot9C3 wGC6A0TyHGTgmxpp grsknIM2BYDxJTKphN74 Jb6apJozZn6wKEDqCBV3 YNZguSXcD4DxsL9qDhSd FSSrNWXaF2NlgLFf YBhoQ762HAaeHdO4IRJl mqKkT4HzSLXvdYegTmX7 z8V2Tf8CV3H5IJ60IM88 aAVvr8X5xCK4R1Qx VGRgbjxtapzztRN3DBDu FPVteN30Lk4dfYbcJp9w HCNhAJN1RUZorJMcX1Ti vF9sRyGeYACoEPAy F5RufUSqUQrjA355ITln PcA3QVVczxOwF2RjCQHa aFtaOhQ1v7F2Fy3SOPx5 TF38CQ76zLSyf7K1 sBL3L1SwWOQejkjulquc gHA3VKUbOHRctO32Ro7e uSxtWk2jBWRdHID1VNZf rHDfM0DhiY7jPfNj DXWmMQTuY9NboZFhOKmn Y243YBzbGbW6IUYngbPd E2YrLXDisRerDeP4l6S0 Yy8ZRYFfAR83RYX4 rPE4GL90OK48N4LdBums dGFibGU+PHRhYmxlIHdp ZHRoPScxMDAlJyBzdHls SK2rTb7yNCMiRVCr vMcrtFVjRsBgz0swQGEy FVaqKL3bzOkdZ9ZjhLA3 MZKxf1u3Ou13D45uS7Ew dXA+BXUxyLT9lJQ0 cB2jJlHfLpS2RUjkJ029 DdMfnOLqVexnk1gko1gt tTs4QgQ8OLYdixUgbJuj BKX4d6NwEj24C92q IHdpZHRoPSIxNSUiIHZh aVbsyj5hiX7mXw2+PGNv rZZ3qSJ8pE4dAlRtTlI5 QFouZ817WeSejUKf Jmegk6kqq6yeeCr4JvJv YZKijpLjeYikQHH2w7Ib Gk14Z3NfqRaju5WuTzg2 th69hHLpc0B8kIL3 E5IqXEZfnihvlJGucZaj DW0vNCRuburiVHHqxH1k LMWxV9f4JmAuTuB6UGry J5XmrtX8ZQYieGBf OZpkEVU5J29gq5A0WCPa CKIsYHX4uFS1nP5sfLky bjogbGVmdDsgdmVydGlj OPeoGAinG718MXCg yEspTUFjtS3iDLYshOUs dVwpCT7vDHKgdcfgQu3R NTKQOAZVHCSMKYUMJR6E HH13W3QsEqt9ADVn jAlnHS8cxHGvQYidWo3k lNwucNgcNL6nUSNzgjbx AQIiuQ1gFNGmuYRqwFbr SD7qXMSqhckvg320 UlIcVLR4XDNkcNQiP4Pm aT7vLeCvABOlASIiS8Jh dWBxUAzvU696KXdiGpG4 KRYvblIoR3JcBWPk jJdbWkO7u6A4Sh3bKE5e PI1bCYVzLS48AT23iIRa f8S8kUJ1M2RjQXLmvlzu ghadxDR8DQBkXERq xA00dSXrPSktFv4pn8Z0 v635NQRtEUClyY83Cw7c nBbvUGLytALMtB3sdpnj h3zaaapzOsHdHCPi RAh4IBy6YRDgaFffHcLh NYY5YfK3LQJ4aREcbE8v vQxeqygxvG3bTtd+MjEg GDAfdzM1V8RuFov5 HJVwqSjmKI3rrNYdFVdb Ae2dnTdvnBujEL0sMMPz rljzOXFttK6xXZVgcNAo cBmuLL6tBVYsaziz z413LiTqPBE1RZRbeIBv H7XdzG8nRgWeZKYrXSQm X8HrzMNwMNcbV518KUmz NwI7GYPvlsUsY9Lf IYEryGobYfZ2f1A1Sn7C LB8wlHD1M4UnLic0FNRy aWktDE1zhZNqCHqmIf6v wXeikClhKW5qWEMc snacQIAxyA3gDPJwcNKj fWzsPK9xGGKlvsxmz684 TiIxXXA7ICCpgOQhG5Fo hJ8uDnXjTHPnQIPj V3HmmWXkPElqC039CRom XtQ4OCIdqgLqC1MrLWEp vYppHuK6a3C5Gw7PnLQt R3UbJ8y1V9YlNnjf dHI+AY90GVRjRJ90uCUt tHAna3wlmKh5BjZnLFVj LMS2fNorXKztu9KiOWYw K37wyDQpz7F9WFAi wSoteUHkSrIcmKE1qU2j BAgntmxzs7mtvaahQxnl e6phxv11eM95E24jFRiu ZHRoPSIzMCUiIHZh fFrpbe5ibV6nLy4+PGNv nRL3fVC0aN6fCySwDtW5 LYkeM627EuMdrGMvCnfn m3uoj3spuLc0CxQu NIVhfrTsqQxnHQR3z9Oy Ts77N58mBMxzHPGfDTWc UVIcJDDsiQetkm2hxZ8o Ii8+DI2ws8dzri47 lU83zQQ+ZUIeSXJ4cMrd JEauKVNfiL6lOSrrAjK8 IQVkHsPubN67zGXoEPpk Wt3geZukkFnuWF3l ZQFbsotpg512WyXzr7yz TANstGPmBLoaERU0S25y z7Q9NVAlBWZkEYA6xBK8 iB6xnLjmswkyuZQf dDsgdmVydGljYWwtYWxp C480PXGysCyjLyCkeZZo U9useiQCLT9kLbesgQA+ PZUiVOJ2gFtsUSwe QOEvbG5oTIUeG0x7NaGf ZbZ8FSqkX0GyedB0BNQb vNSpFWFbpCUAtF8xigou s0xmtgmjPtUzNBPj DCt3XCs8FDKosTqpVnUp TGQ6MlQ3ZJL8rUZzpC1e xNagdeqkeK2pLls+RklO OjwvdGQ+PHRkIHN0 oIhgGNapYDBgwG9vLJWs E1e6EwXmKaG7KOpdQ8Yx qdR3JFZipRCtPXXwfIMF yM4kfhtxk1tqmghg ZxLvJPEtPYu5XUp4MDJu rUleMpBjUUJ6XjD9FPK3 dWUbsI6weXlebbtosG2e Oyc+TVJOOjwvdGQ+ YOZvKOQ9wYnaBZftMZUq jE4fVFEoN5l8YpZuKjE8 MBpgN7CagyQ8IDLdrCJn WXPhuOLHxK0yxccx x5jrrqtsIlWbPGCnZSu3 JEz5WVQbvZhzRlKbUAZ4 WlS9YIT1hSOpiG7gxMvg ezmzbB3fLyg+UGF5 XHY5BN30UR06W3UrVkfg dGFibGU+PHRhYmxlIHdp ZHRoPScxMDAlJyBzdHls IR0sBg7wWGQyHZSs bGxh (more content not included)... Normal [facility] Discharge Instructionson Discharge Instructions [id number]#[id number]:[address] [facility] ED Clinical Summaryon 2022 ED Clinical Summary [place] [address] ED Clinical Summary Person Information Name: ROQUE PIERSON Maribel/[facility] Age: 22 Years : 2000 Sex: Female Language: Qatari PCP: Delfin Urbano MD Marital Status: Single [...] 08/29/2022 01:49:39 08/29/2022 01:49:39 08/29/2022 01:49:39 ADDRESS: [address] [place] [address] [id number] PHYS DOC NOTES: MEDICAL INFORMATION: Prescriptions Given: [...] During Follow up: With: Address: When: [facility] [address] [place] [address] , [place] [address] Business (1) In 3 days 09/01/2022 Comments: Return to the emergency room if your pain gets worse, general bleeding, vomiting or any new symptoms With: Address: When: Delfin Urbano [address] [facility], [place] [address] Business (1) In 3 days DIAGNOSIS: 1:Abdominal pain; 2:Intrauterine ; 3:Nausea Normal [facility] ED Note-Physicianon 08-29-19 ED Note-Physician Basic Information [...] and Complexity of Problems Differential Diagnosis: [] [facility] Data External documents reviewed: [] My [...] Information Julius CROCKETT In 3 days 09/01/[address] [place] [address] Business (1) Additional Instructions: Return to the emergency room if your pain gets worse, general bleeding, vomiting or any new symptoms Delfin Hoy (more content not included)... Normal [facility] Comment on above: Result Comment: Elec tronically Signed By: Anu Ziegler, Alfredito Hoang\.basil\Date and Time Signed: 08/29/22 03:00 EST ED [...] added (diluted fruit juice). ? Eat bland, osoe-iw-apqjaf foods in small amounts as you are able. These foods include bananas, applesauce, rice, lean meats, toast, and crackers. ? Avoid drinking fluids that contain a lot of sugar or caffeine, such as energy drinks, sports drinks, and soda. ? Avoid alcohol. ? Avoid spicy or fatty foods. General instructions ? Take fitb-bid-nmnjzxp and prescription medicines only as told by your health care provider. ? Rest at home while you recover. ? Drink enough fluid to keep your urine pale yellow. ? Breathe slowly and deeply when you feel nauseous. ? Avoid smelling things that have strong odors. ? Wash your hands often using soap and water. If soap and water are not available, use hand child care giver. ? Make sure that all people in [...] recommendations for eating and drinking and take mvkl-bts-qdufchj and prescription medicines only as told by [...] 09/18/2005 Document Revised: 01/19/2019 Document Reviewed: 01/19/2019 [employer] Patient Education ? 2020 [employer] Obstetrics and Gynecology First Trimester of [...] be form (more content not included)... Normal [facility] ED Patient Summaryon 023 ED Patient Summary [address] [address] Patient Discharge Instructions Person Information Name: ROQUE PIERSON Age: 22 Years Arrival Date: 08/28/2022 21:27:40 Discharge Diagnosis: 1:Abdominal pain; 2:Intrauterine ; 3:Nausea Primary Care Physician: Delfin Urbano MD Provider Information Primary Provider: Alfredito Brennan M.D. Advanced Methods Study Analyst:None The exam and treatment you received in the Emergency Department were for an urgent problem and are not intended as complete care. It is important that you follow up with a doctor, nurse practitioner, or physician?s bindery library technical assistant for ongoing care. If your symptoms become worse or you do not improve as expected and you are unable to reach your usual health care provider, you should return to the Emergency Department. We are available 24 hours a day. ROQUE PIERSON has been given the following list of patient education materials, prescriptions and follow-up instructions: Follow-up Instructions: With: [facility]: [facility] [address] [place] [address] [place] [address] [employer] (1) In 3 days 09/01/2022 Comments: Return to the emergency room if your pain gets worse, general bleeding, vomiting or any new symptoms With: Address: When: Delfin Urbano [address] [facility], [place] [address] Business (1) In 3 days [...] opioids can be used to help relieve qukglcnc-sj-gdqemp pain and are often prescribed following a [...] guidance from (more content not included)... Normal [facility] Hep Func Panelon 08-29-2022 Bilirubin.indirect [Mass or moles/Vol] UTC Abnormal 0.1-0.9 [facility] Comment on above: Result Comment: Resu lt verified by [employer]. Performed result UTC (Unable to Calculate) was sent as an Alpha code due the inability to calculate a valid numeric value. Performed By: #### 2 578635, 8058424, 4050180, 4637507, 97797471, 1135375, 8676926 #### [facility] Laboratory [address] [place] [address] Albumin [Mass/Vol] 4.2 g/dL Normal 3.3-5.0 [facility] Comment on above: Performed By: #### 2 179134, 5824711, 7733172, 3114737, 63508164, 0673751, 5193315 #### [facility] Laboratory [address] [place] [address] Albumin/Globulin (S) [Mass conc ratio] 1.3 Normal 1.1-2.2 [facility] Comment on above: Performed By: #### 2 767400, 7532780, 1900069, 3716031, 38259929, 7453092, 7060585 #### [facility] [address] [place] [address] ALP [Catalytic activity/Vol] 69 Int._Unit/L Normal 21-98 [facility] Comment on above: Performed By: #### 2 177735, 1684443, 5056840, 6005252, 13044768, 6001518, 4914111 #### [facility] [address] [place] [address] ALT No additional P-5'-P [Catalytic activity/Vol] 57 Int._Unit/L High 6-46 [facility] Comment on above: Performed By: #### 2 917748, 4477797, 4098384, 7627471, 79114383, 4139867, 0291360 #### [facility] Laboratory [address] [place] [address] AST [Catalytic activity/Vol] 41 Int._Unit/L Normal 5-43 [facility] Comment on above: Performed By: #### 2 926753, 3781286, 0942046, 0915226, 55407516, 2540488, 3888986 #### [facility] [address] [place] [address] Bilirubin [Mass/Vol] 0.4 mg/dL Normal 0.0-1.1 [facility] Comment on above: Performed By: #### 2 577267, 7646156, 6026546, 9805053, 34751925, 2065853, 6105902 #### [facility] [address] [place] [address] Bilirubin.direct [Mass/Vol] mg/dL Normal 0.1-0.4 [facility] Comment on above: Performed By: #### 2 501697, 8142905, 4888942, 3478545, 24063586, 9046856, 7134941 #### [facility] [address] [place] [address] Globulin (S) [Mass/Vol] 3.3 g/dL Normal 1.4-4.0 [facility] Comment on above: Performed By: #### 2 812102, 9579804, 9634221, 6468228, 85165374, 5079430, 1586519 #### [facility] [address] [place] [address] Protein [Mass/Vol] 7.5 g/dL Normal 6.0-7.8 [facility] Comment on above: Performed By: #### 2 800161, 5092654, 6937777, 4414423, 73334622, 2867942, 1520613 #### [facility] [address] [place] [address] Lipase Levelon 08-29-2022 Lipase [Catalytic activity/Vol] 29 U/L Normal 13-58 [facility] Comment on above: Performed By: #### 2 686062, 3352539, 7284757, 8882730, 34569403, 0932683, 5104951 #### [facility] [address] [place] [address] Prescriptions/Work Noteson 0 08-29-2022 Prescriptions/Work Notes [id number] 9#1.00CD:[address] [facility] UA With Cult Reflexon 2022 Bacteria LM Ql (Urine sed) 1+ /HPF Abnormal Trace [facility] Comment on above: Performed By: #### 1 [id number] ####[address] [address] Bilirubin Ql (U) Negative Normal Negative [facility] Comment on above: Performed By: #### 1 8111604 ####[facility] [address] [place] [address] Clarity (U) CLEAR Normal Clear [facility] Comment on above: Performed By: #### 1 6709317 ####[facility] [address] [place] [address] Color (U) YELLOW Normal Yellow [facility] Comment on above: Performed By: #### 1 1361990 ####[facility] [address] [place] [address] Epithelial cells.squamous LM.HPF (Urine sed) [#/Area] 3-4 Normal 0-2 [facility] Comment on above: Performed By: #### 1 9693593 ####[facility] [address] [place] [address] Glucose Test strip (U) [Mass/Vol] Negative Normal Negative [facility] Comment on above: Performed By: #### 1 3131416 ####[facility] [address] [place] [address] Hemoglobin Ql (U) Negative Normal Negative [facility] Comment on above: Performed By: #### 1 7838304 ####[facility] [address] [place] [address] Ketones (U) [Mass/Vol] 3+ Abnormal Negative [facility] Comment on above: Performed By: #### 1 5581340 ####[facility] [address] [place] [address] [place].plasma/Lithiu m.RBC (Bld) [Mass ratio] 0-3 Normal 0-3 [facility] Comment on above: Performed By: #### 1 9787124 ####[facility] [address] [place] [address] Nitrite Ql (U) Negative Normal Negative [facility] Comment on above: Performed By: #### 1 [id number] ####[address] [address] pH (U) 7.0 [pH] Invalid Interpretation Code 5.0-9.0 [facility] Comment on above: Performed By: #### 1 [id number] ####[facility] [address] [place] [address] Protein (U) [Mass/Vol] Negative Normal Negative [facility] Comment on above: Performed By: #### 1 [id number] ####[address] [address] Specific gravity (U) [Rel density] 1.015 Invalid Interpretation Code 1.005-1.030 [facility] Comment on above: Performed By: #### 1 [id number] ####[facility] [address] [place] [address] Type of Urine collection method Clean Catch Normal [facility] Comment on above: Performed By: #### 1 [id number] ####[facility] [address] [place] [address] Urobilinogen Qn (U) 0.2 {Andrea'U}/dL Normal 0.0-1.0 [facility] Comment on above: Performed By: #### 1 [id number] ####[facility] [address] [place] [address] WBC Auto Ql (U) TRACE Abnormal Negative [facility] Comment on above: Performed By: #### 1 [id number] ####[facility] [address] [place] [address] WBC LM.HPF (Urine sed) [#/Area] 0-5 Normal 0-5 [facility] Comment on above: Performed By: #### 1 [id number] ####[facility] [address] [place] [address] URINALYSISOrdered By: Davidson Watson on 08-29-2022 Bacteria [...] Interpretation Code Negative [facility] UA Auto SS [place].plasma/Lithiu m.RBC (Bld) [Mass ratio] 0-3 /HPF Normal [...] AM) Invalid Interpretation Code 1.005 - 1.030 [facility] UA Auto SS UA Spec Desc Clean Catch (08/29/22 12:34 AM) Normal [facility] UA Auto SS Urobilinogen Qn (U) 0.8950245 {Andrea'U}/dL Normal 0.0 - 1.0 EU/dL [facility] UA Auto SS WBC Auto Ql (U) Trace *ABN* (08/29/22 12:34 AM) Invalid Interpretation Code Negative [facility] UA Auto SS WBC LM.HPF (Urine sed) [#/Area] 0-5 /HPF Normal 0-5/HPF [facility] [place] Auto SS [place] 1st Trimesteron 08-29-2022 [...] corresponding gestational age +/- 1 week are: Cade Rump Length: 0.7 cm Composite Ultrasound Age: [...] Size = Dates Uterus Position Anteverted Normal [facility] eGFRon 08-29-2022 GFR/1.73 sq M.predicted among blacks MDRD (S/P/Bld) [Vol rate/Area] mL/min/{1.73_m2} Normal >=59 [facility] Comment on above: Order Comment: Order added by Discern Expert. Result Comment: eGFR is race adjusted. AA=. Performed By: #### 2 [id number], [id number], [id number], [id number], [id number], [id number] #### [facility] [address] [place] [address] GFR/1.73 sq M.predicted among non-blacks MDRD (S/P/Bld) [Vol rate/Area] mL/min/{1.73_m2} Normal >=59 [facility] Comment on above: Order Comment: Order added by Discern Expert. Result Comment: [employer] emil kidney disease could be indicated at eGFR's of less than 60 mL/min/1.73m2. Kidney failure is indicated at less than 15 mL/min/1.73m2. Performed By: #### 2 [id number], [id number], [id number], [id number] #### [facility] [address] [place] [address] BLOOD BANKOrdered By: Davidson Watson on 08-28-2022 ABO/Rh Interp Positive Invalid Interpretation Code [facility] [place] Subsection CHEMISTRYOrdered By: SYSTEM SYSTEM on [...] 199 mg/dL [facility] [place] [address] m[IU]/mL High 1 - 3 mIU/mL [facility] [...] for Treatmenton Consent for Treatment [id number] 30 [id number] #1.00CD:[address] [facility] HEMATOLOGYOrdered By: SYSTEM SYSTEM on 08-28-2022 Basophils/100 [...] 64.8 % Normal 36.0 - 75.0 % [facility] HemeAutoSS Neutrophils/Leukocyte s Auto (Bld) [Pure # fraction] 5.3 E9/L Normal 2.0 - 7.5 E9/L [facility] HemeAutoSS HEMATOLOGYOrdered By: Meagan Hilton on 08-28-2022 Erythrocyte distribution width (RBC) [Ratio] 13.1 % Normal 10.9 - 14.2 % [facility] HemeAutoSS Hematocrit (Bld) [Volume fraction] 39.2 % Normal 34.0 - 46.0 % [facility] HemeAutoSS Hemoglobin (Bld) [Mass/Vol] 13.5 g/dL Normal 12.0 - 16.0 gm/dL [facility] HemeAutoSS [facility] (RBC) [Entitic mass] 29.5 pg Normal 27.0 - 34.0 pg [facility] HemeAutoSS MCHC (RBC) [Mass/Vol] 34.3 g/dL Normal 31.4 - 36.0 gm/dL FT HemeAutoSS MCV (RBC) [Entitic vol] 85.8 fL Normal 80.0 - 100.0 fL [facility] HemeAutoSS Platelet mean volume (Bld) [Entitic vol] 8.3 fL Normal 6.4 - 10.8 fL [facility] HemeAutoSS Platelets (Bld) [#/Vol] 279.0 E9/L Normal 150.0 - 500.0 E9/L [facility] HemeAutoSS RBC (Bld) [#/Vol] 4.6 E12/L Normal 4.3 - 5.9 E12/L [facility] HemeAutoSS WBC corrected for nucl RBC Auto (Bld) [#/Vol] 8.1 E9/L Normal 4.0 - 11.0 E9/L [facility] HemeAutoSS Auto Diffon 08-26-2022 Basophils/100 WBC (Bld) 0.6 % Normal 0.0-2.0 [facility] Comment on above: Order Comment: Order Added by Discern Expert. Performed By: #### 1 [id number], 0801138, 0366788, 1811954, 4007406 ####[facility] [address] [place] [address] Basophils/Leukocytes Auto (Bld) [Pure # fraction] 0.1 E9/L Normal 0.0-0.2 [facility] Comment on above: Order Comment: Order Added by Discern Expert. Performed By: #### 1 [id number], 0209555, 7158366, 6373293, 3386712 ####[address] [place] [address] Eosinophils/100 WBC (Bld) 3.4 % Normal 0.0-8.0 [facility] Comment on above: Order Comment: Order Added by Discern Expert. Performed By: #### 1 2002671, 6649978, 6601077, 3317283, 8267137 ####[facility] [address] [place] [address] Eosinophils/Leukocyte s Auto (Bld) [Pure # fraction] 0.4 E9/L Normal 0.0-0.5 [facility] Comment on above: Order Comment: Order Added by Ally Expert. Performed By: #### 1 1799408, 4587280, 4514878, 7014600, 9074354 ####[address] [address] Lymphocytes/100 WBC (Bld) 12.4 % Low 14.0-50.0 [facility] Comment on above: Order Comment: Order Added by Ally Expert. Performed By: #### 1 2835194, 7446259, 4617427, 7685146, 1499151 ####[address] [address] Lymphocytes/Leukocyte s Auto (Bld) [Pure # fraction] 1.6 E9/L Normal 1.0-4.0 [facility] Comment on above: Order Comment: Order Added by Discern Expert. Performed By: #### 1 7288407, 6882952, 3276200, 4784047, 6478090 ####[address] [address] Monocytes/100 WBC (Bld) 4.2 % Normal 4.0-14.0 [facility] Comment on above: Order Comment: Order Added by Ally Expert. Performed By: #### 1 7404036, 9390940, 2548216, 9484983, 1065243 ####[address] [place] [address] Monocytes/Leukocytes Auto (Bld) [Pure # fraction] 0.5 E9/L Normal 0.2-1.0 [facility] Comment on above: Order Comment: Order Added by Discern Expert. Performed By: #### 1 8524198, 6553847, 4226166, 2221631, 7732290 ####[address] [place] [address] Neutrophils/100 WBC (Bld) 79.4 % High 36.0-75.0 [facility] Comment on above: Order Comment: Order Added by Discern Expert. Performed By: #### 1 5420564, 8494321, 3876393, 8621941, 6208848 ####[address] [address] Neutrophils/Leukocyte s Auto (Bld) [Pure # fraction] 10.3 E9/L High 2.0-7.5 [facility] Comment on above: Order Comment: Order Added by Discern Expert. Performed By: #### 1 4155529, 5979159, 3535365, 5891103, 0299082 ####[address] [address] CBC w/ Auto Diffon 3 Erythrocyte distribution width (RBC) [Ratio] 13.3 % Normal 10.9-14.2 [facility] Comment on above: Performed By: #### 1 0087943, 3320255, 3875923, 3517351, 6300687 ####[address] [place] [address] Hematocrit (Bld) [Volume fraction] 39.7 % Normal 34.0-46.0 [facility] Comment on above: Performed By: #### 1 0719664, 8915877, 9676822, 1706987, 9868744 ####[address] [place] [address] Hemoglobin (Bld) [Mass/Vol] 13.6 g/dL Normal 12.0-16.0 [facility] Comment on above: Performed By: #### 1 5352208, 8072650, 0637493, 1518421, 5290232 ####[address] [place] [id number] MCH (RBC) [Entitic mass] 29.4 pg Normal 27.0-34.0 [facility] Comment on above: Performed By: #### 1 6394199, 3798674, 3136368, 9428332, 9403654 ####[address] [id number] MCHC (RBC) [Mass/Vol] 34.1 g/dL Normal 31.4-36.0 [facility] Comment on above: Performed By: #### 1 9042658, 8300903, 1281320, 4184185, 5316632 ####[place] [address] MCV (RBC) [Entitic vol] 86.1 fL Normal 80.0-100.0 [facility] Comment on above: Performed By: #### 1 6518239, 3517885, 8020492, 9282500, 5950937 ####[place] [address] [address] Platelet mean volume (Bld) [Entitic vol] 7.9 fL Normal 6.4-10.8 [facility] Comment on above: Performed By: #### 1 8346558, 1958693, 8658710, 3607553, 9516435 ####[address] [address] Platelets (Bld) [#/Vol] 340.0 E9/L Normal 150.0-500.0 [facility] Comment on above: Performed By: #### 1 7254362, 6100017, 5755406, 6453619, 4165275 ####[address] [address] RBC (Bld) [#/Vol] 4.6 E12/L Normal 4.3-5.9 [facility] Comment on above: Performed By: #### 1 4362913, 3365909, 2100225, 9969969, 1719411 ####[facility] [address] [place] [address] WBC corrected for nucl RBC Auto (Bld) [#/Vol] 13.0 E9/L High 4.0-11.0 [facility] Comment on above: Performed By: #### 1 3873487, 4180685, 5670086, 9521126, 0164396 ####[facility] [address] [place] [address] CHEMISTRYOrdered By: SYSTEM SYSTEM on 08-26-2022 Albumin [...] rate/Area] mL/min/1.73 m2 Normal >=59mL/min/1. 73 m2 [facility] Chem S Globulin (S) [Mass/Vol] 3.4 g/dL Normal 1.4 - 4.0 gm/dL [facility] Remisol Glucose [Mass/Vol] 123 mg/dL Normal 55 - 199 mg/dL [facility] Remisol Lipase [Catalytic activity/Vol] 27 U/L Normal 13 - 58 unit/L [facility] Remisol Potassium [Moles/Vol] 3.7 mmol/L Normal 3.5 - 5.3 mmol/L [facility] Remisol Protein [Mass/Vol] 7.8 g/dL Normal 6.0 - 7.8 gm/dL [facility] Remisol Sodium [Moles/Vol] 133 mmol/L Low 135 - 145 mmol/L [facility] Remisol Urea nitrogen [Mass/Vol] 9 mg/dL Normal 5 - 21 mg/dL [facility] [place] Remisol Urea nitrogen/Creatinine [Mass ratio] 15 mg/mg Normal 10 - 20 [facility] [place] Remisol CMPon 08-26-2022 Albumin [Mass/Vol] 4.4 g/dL Normal 3.3-5.0 [facility] Comment on above: Performed By: #### 1 6493290, 8736323, 7204502, 4069632, 9839682 ####[facility] [address] [place] [address] Albumin/Globulin (S) [Mass conc ratio] 1.3 Normal 1.1-2.2 [facility] Comment on above: Performed By: #### 1 1458243, 2731588, 1485577, 0397669, 9565284 ####[facility] [address] [place] [address] ALP [Catalytic activity/Vol] 66 Int._Unit/L Normal 21-98 [facility] Comment on above: Performed By: #### 1 2499834, 6337247, 0751894, 3039320, 4504455 ####[facility] [address] [place] [address] ALT No additional P-5'-P [Catalytic activity/Vol] 20 Int._Unit/L Normal 6-46 [facility] Comment on above: Performed By: #### 1 2411252, 7442062, 7775975, 3318779, 9661445 ####[facility] [address] [place] [address] AST [Catalytic activity/Vol] 20 Int._Unit/L Normal 5-43 [facility] Comment on above: Performed By: #### 1 1836529, 9603814, 0824098, 3819610, 5551328 ####[facility] [address] [place] [address] Bilirubin [Mass/Vol] 0.6 mg/dL Normal 0.0-1.1 [facility] Comment on above: Performed By: #### 1 9193137, 4041063, 7067548, 5819288, 3309514 ####[facility] [address] [place] [address] Creatinine [Mass/Vol] 0.6 mg/dL Normal 0.5-1.3 [facility] Comment on above: Performed By: #### 1 3098274, 6197276, 6101023, 1769606, 6421217 ####[facility] [address] [place] [address] Globulin (S) [Mass/Vol] 3.4 g/dL Normal 1.4-4.0 [facility] Comment on above: Performed By: #### 1 9492019, 5436088, 8299220, 6101729, 8577581 ####[facility] [address] [place] [address] Protein [Mass/Vol] 7.8 g/dL Normal 6.0-7.8 [facility] Comment on above: Performed By: #### 1 3459235, 1748589, 5885161, 3425780, 7048048 ####[facility] [address] [place] [address] Urea nitrogen [Mass/Vol] 9 mg/dL Normal 5-21 [facility] Comment on above: Performed By: #### 1 8690800, 7490498, 7696247, 0153770, 2439285 ####[facility] [address] [place] [address] Urea nitrogen/Creatinine [Mass ratio] 15 No Units Normal 10-20 [facility] Comment on above: Performed By: #### 1 5550018, 9102693, 9609978, 3996135, 4723551 ####[facility] [address] [place] [address] Anion gap [Moles/Vol] 13 mmol/L Normal 6-16 [facility] Comment on above: Performed By: #### 1 4794769, 8782365, 0687335, 8864246, 6460549 ####[facility] [address] [facility] [place] [address] Calcium [Mass/Vol] 9.4 mg/dL Normal 8.9-11.1 [facility] Comment on above: Performed By: #### 1 4597582, 1662927, 5180275, 7018894, 9284348 ####[facility] [address] [place] [address] Chloride [Moles/Vol] 103 mmol/L Normal 101-111 [facility] Comment on above: Performed By: #### 1 7766491, 2175602, 7395932, 9873768, 6349855 ####[facility] [address] [place] [address] CO2 [Moles/Vol] 21 mmol/L Normal 21-31 [facility] Comment on above: Performed By: #### 1 8446680, 9963121, 2100117, 3978504, 2718367 ####[facility] [address] [place] [address] Glucose [Mass/Vol] 123 mg/dL Normal 55-199 [facility] Comment on above: Result Comment: If t his glucose result represents a fasting glucose, interpretation should refer to the following reference range: 55-99 mg/dL Performed By: #### 1 1113985, 6733726, 7041272, 8267827, 2661242 ####[facility] [address] [place] [address] Potassium [Moles/Vol] 3.7 mmol/L Normal 3.5-5.3 [facility] Comment on above: Performed By: #### 1 8511080, 5505589, 8761665, 4436849, 0224323 ####[facility] [address] [place] [address] Sodium [Moles/Vol] 133 mmol/L Low 135-145 [facility] Comment on above: Performed By: #### 1 5455377, 4240957, 7469092, 0219525, 7883668 ####[facility] [address] [place] [address] Consent for Treatmenton Consent for Treatment [id number] #1.00CD:[address] [facility] Discharge Instructionson Discharge Instructions [id number]#1.00CD:[address] [facility] ED Clinical Summaryon 2022 ED Clinical Summary [address] [address] ED Clinical Summary Person Information Name: ROQUE PIERSON Maribel/[facility] Age: 22 Years : 2000 Sex: Female Language: Qatari PCP: Delfin Urbano MD Marital Status: Single [...] 08/26/2022 12:55:17 08/26/2022 12:55:17 08/26/2022 12:55:17 ADDRESS: [address] [place] [id number] PHYS DOC NOTES: MEDICAL INFORMATION: Prescriptions Given: [...] Follow up: With: Address: When: Julius CROCKETT [facility], [address] [place] [address] , [place] [address] Business (1) In 3 days 08/29/2022 With: Address: When: Delfin [facility] [facility], [address] [place], [place] [id number] Business (1) In 3 days DIAGNOSIS: Hyperemesis gravidarum Normal [facility] ED Note-Physicianon 08-26-19 ED Note-Physician Basic Information Time Seen: Kei Moore DO 08/26/2022 11:01 Chief Complaint pt reports nausea for 2-3 weeks, Seen in [place] ED for this and given fluids/meds in ED. Mild abd pain. Pt reports 6 wks . History of Present Illness 22 female presents emergency department with intractable nausea and vomiting. Patient states that she is about 6 weeks she is G1, P0 and has had prior ultrasound done in [place]. Patient states that just recently she was seen in the [place] emergency department was given fluids and medications [...] and Complexity of Problems Differential Diagnosis: [] [facility] Data External documents reviewed: [] My [...] discharged home educated to follow-up with her [employer] physician. She is discharged with prescription for [...] PRN Follow-up With When Contact Information Julius JUSTYNA In 3 days 08/29/2022 [facility] [address] [facility] [address] [address]- Business (1) Additional Instructions: Delfin Urbano In 3 days [address] [facility] [place] [address] [address]- Business (1) Additional Instructions: Problem List/Past Medical [...] Household t (more content not included)... Normal [facility] Comment on above: Result Comment: Elec tronically Signed By: Kei Moore DO\.basil\Date and Time Signed: 08/26/22 12:48 EST ED Patient Education Noteon 08-26-2022 ED Patient Education Note Normal [facility] ED Patient Summaryon 023 ED Patient Summary [address] [address] Patient Discharge Instructions Person Information Name: ROQUE PIERSON Age: 22 Years Arrival Date: 08/26/2022 10:59:05 Discharge Diagnosis: Hyperemesis gravidarum Primary Care Physician: Delfin Urbano MD Provider Information Primary Provider: Kei Moore DO Advanced Methods Study Analyst:None The exam and treatment you received in the Emergency Department were for an urgent problem and are not intended as complete care. It is important that you follow up with a doctor, nurse practitioner, or physician?s bindery library technical assistant for ongoing care. If your symptoms become worse or you do not improve as expected and you are unable to reach your usual health care provider, you should return to the Emergency Department. We are available 24 hours a day. ROQUE PIERSON has been given the following list of patient education materials, prescriptions and follow-up instructions: Follow-up Instructions: With: Address: When: Julius JUSTYNA [facility], [address] [place] [address] , [place] [address] Business (1) In 3 days 08/29/2022 With: Address: When: Delfin Urbano [address] [facility] [place] [address] Business (1) In 3 days In the event that this physician does not participate in your insurance network, please consult with your insurance company to find a nearby participating provider. Patient Education Materials: A MESSAGE TO ALL PATIENTS REGARDING OPIOIDS PRESCRIPTION OPIOIDS: WHAT YOU NEED TO KNOW Prescription opioids can be used to help relieve ghidxhse-jc-qqnwjz pain and are often prescribed following a [...] your he (more content not included)... Normal [facility] HEMATOLOGYOrdered By: SYSTEM SYSTEM on 08-26-2022 Basophils/100 WBC (Bld) 0.6 % Normal 0.0 - 2.0 % [facility] [place] HemeAutoSS Basophils/Leukocytes Auto (Bld) [Pure # fraction] [...] 340.0 E9/L Normal 150.0 - 500.0 E9/L [facility] HemeAutoSS RBC (Bld) [#/Vol] 4.6 E12/L Normal 4.3 - 5.9 E12/L [facility] HemeAutoSS WBC corrected for nucl RBC Auto (Bld) [#/Vol] 13.0 E9/L High 4.0 - 11.0 E9/L [facility] HemeAutoSS Lipase Levelon 08-26-2022 Lipase [Catalytic activity/Vol] 27 U/L Normal 13-58 [facility] Comment on above: Performed By: #### 1 4258023, 0157529, 1467254, 0241955, 2798576 ####[facility] [address] [place] [address] UA With Cult Reflexon 2022 Bacteria LM Ql (Urine sed) TRACE Normal Trace [facility] Comment on above: Performed By: #### 1 8949134 #### [facility] Laboratory [address] [place] [address] Bilirubin Ql (U) Negative Normal Negative [facility] Comment on above: Performed By: #### 1 9692609 #### [facility] [address] [place] [address] Clarity (U) CLEAR Normal Clear [facility] Comment on above: Performed By: #### 1 8817804 #### [facility] [address] [place] [address] Color (U) YELLOW Normal Yellow [facility] Comment on above: Performed By: #### 1 1221307 #### [facility] [address] [place] [address] Epithelial cells.squamous LM.HPF (Urine sed) [#/Area] 5-8 Normal 0-2 [facility] Comment on above: Performed By: #### 1 7041544 #### [facility] [address] [place] [address] Glucose Test strip (U) [Mass/Vol] Negative Normal Negative [facility] Comment on above: Performed By: #### 1 3529482 #### [facility] [address] [place] [address] Hemoglobin Ql (U) Negative Normal Negative [facility] Comment on above: Performed By: #### 1 9775013 #### [facility] [address] [place] [address] Ketones (U) [Mass/Vol] 2+ Abnormal Negative [facility] Comment on above: Performed By: #### 1 1578264 #### [facility] [address] [place] [address] [place].plasma/Lithiu m.RBC (Bld) [Mass ratio] 0-3 Normal 0-3 [facility] Comment on above: Performed By: #### 1 5655195 #### [facility] [address] [place] [address] Mucus Ql (Urine sed) 2+ Normal [facility] Comment on above: Performed By: #### 1 0535148 #### [facility] [address] [place] [address] Nitrite Ql (U) Negative Normal Negative [facility] Comment on above: Performed By: #### 1 8963596 #### [facility] [address] [place] [address] pH (U) 8.5 [pH] Invalid Interpretation Code 5.0-9.0 [facility] Comment on above: Performed By: #### 1 5223768 #### [facility] [address] [place] [address] Protein (U) [Mass/Vol] TRACE Abnormal Negative [facility] Comment on above: Performed By: #### 1 3393043 #### [facility] [address] [place] [address] Specific gravity (U) [Rel density] 1.015 Invalid Interpretation Code 1.005-1.030 [facility] Comment on above: Performed By: #### 1 3372445 #### [facility] [address] [place] [address] Type of Urine collection method Clean Catch Normal [facility] Comment on above: Performed By: #### 1 6021029 #### [facility] [address] [place] [address] Urobilinogen Qn (U) 0.2 {Andrea'U}/dL Normal 0.0-1.0 [facility] Comment on above: Performed By: #### 1 5708269 #### [facility] [address] [place] [address] WBC Auto Ql (U) Negative Normal Negative [facility] Comment on above: Performed By: #### 1 6646940 #### [facility] [address] [place] [address] WBC LM.HPF (Urine sed) [#/Area] 0-5 Normal 0-5 [facility] Comment on above: Performed By: #### 1 2792921 #### [facility] [address] [place] [address] URINALYSISOrdered By: Renato Norman on 08-26-2022 Bacteria [...] Interpretation Code Negative [facility] UA Auto SS [place].plasma/Lithiu m.RBC (Bld) [Mass ratio] 0-3 /HPF Normal 0-3/HPF [facility] UA Auto SS Mucus Ql (Urine sed) 2+ (08/26/22 12:01 PM) Normal [facility] UA Auto SS Nitrite Ql (U) Negative (08/26/22 12:01 PM) Normal Negative [facility] UA Auto SS pH (U) 8.5 *NA* (08/26/22 12:01 PM) Invalid Interpretation Code 5.0 - 9.0 [facility] UA Auto SS Protein (U) [Mass/Vol] Trace *ABN* (08/26/22 12:01 PM) Invalid Interpretation Code Negative [facility] UA Auto SS Specific gravity (U) [Rel density] 1.015 *NA* (08/26/22 12:01 PM) Invalid Interpretation Code 1.005 - 1.030 [facility] UA Auto SS UA Spec Desc Clean Catch (08/26/22 12:01 PM) Normal [facility] UA Auto SS Urobilinogen Qn (U) 0.7069954 {Andrea'U}/dL Normal 0.0 - 1.0 EU/dL [facility] UA Auto SS WBC Auto Ql (U) Negative (08/26/22 12:01 PM) Normal Negative [facility] UA Auto SS WBC LM.HPF (Urine sed) [#/Area] 0-5 /HPF Normal 0-5/HPF [facility] UA Auto SS eGFRon 08-26-2022 GFR/1.73 sq M.predicted among blacks MDRD (S/P/Bld) [Vol rate/Area] mL/min/{1.73_m2} Normal >=59 [facility] Comment on above: Order Comment: Order added by Discern Expert. Result Comment: eGFR is race adjusted. AA=. Performed By: #### 1 5361113, 1964007, 3523031, 3287604, 0372060 ####[facility] [address] [place] [address] GFR/1.73 sq M.predicted among non-blacks MDRD (S/P/Bld) [Vol rate/Area] mL/min/{1.73_m2} Normal >=59 [facility] Comment on above: Order Comment: Order added by Discern Expert. Result Comment: Foam Rubber Fabricator emil kidney disease could be indicated at eGFR's of less than 60 mL/min/1.73m2. Kidney failure is indicated at less than 15 mL/min/1.73m2. Performed By: #### 1 8859314, 3415142, 5767385, 4609149, 8438657 ####[facility] [address] [place] [id number] CBC with Auto Differentialon 08-24-2022 Absolute Eos # 0.60 High [facility] Absolute Lymph # 2.30 [facility] Absolute [place] # 1.00 [facility] Basophils (Bld) [#/Vol] 0.10 10*3/uL [facility] Basophils/100 WBC (Bld) 0 % 0 - 2 % [facility] Differential Type YES [facility] Eosinophils/100 WBC (Bld) 4 % 0 - 5 % [facility] Hematocrit (Bld) [Volume fraction] 38.3 % 36 - 46 % [facility] Hemoglobin (Bld) [Mass/Vol] 12.7 g/dL 12.0 - 16.0 g/dL [facility] Interpretation and review of laboratory results Abnormal [facility] Lymphocytes/100 WBC (Bld) 16 % 15 - 40 % [facility] MCH (RBC) [Entitic mass] 29.3 pg 26 - 34 pg [facility] MCHC (RBC) [Mass/Vol] 33.1 g/dL 31 - 37 g/dL B ON [facility] MCV (RBC) [Entitic vol] 88.6 fL 80 - 100 fL [facility] Monocytes/100 WBC (Bld) 7 % 4 - 8 % [facility] Platelet distribution width (Bld) [Ratio] 13.1 % 12.1 - 15.2 % [facility] Platelets (Bld) [#/Vol] 324 10*3/uL [facility] RBC (Bld) [#/Vol] 4.32 10*6/uL 4.0 - 5.2 m/uL [facility] Segmented neutrophils/100 WBC (Bld) 73 % 47 - 75 % [facility] Segs Absolute 10.20 High [facility] WBC (Bld) [#/Vol] 14.1 10*3/uL High [facility] CBC with Diffon 08-24-2022 Abs. Basophil 0.10 k/uL Normal 0.0-0.2 [facility] Comment on above: Performed By: #### C DP, CP #### [facility] [address] [place] [address] [employer]: Alfred Chirinos MD Abs.Neutrophil (Seg) 10.20 k/uL High 2.5-7.0 [facility] Comment on above: Performed By: #### C DP, CP #### [facility] [address] [place] [phone] [employer]: Alfred Chirinos MD Auto Diff Performed YES Normal [facility] Comment on above: Performed By: #### C DP, CP #### [facility] [address] [phone] [employer]: Alfred Chirinos MD Basophils/100 WBC (Bld) 0 % Normal 0-2 [facility] Comment on above: Performed By: #### C DP, CP #### [facility] [address] [place] [phone] [employer]: Alfred Chirinos MD Eosinophils (Bld) [#/Vol] 0.60 10*3/uL High 0.0-0.4 [facility] Comment on above: Performed By: #### C DP, CP #### [facility] [address] [place] [phone] [employer]: Alfred Chirinos MD Eosinophils/100 WBC (Bld) 4 % Normal 0-5 [facility] Comment on above: Performed By: #### C DP, CP #### [facility] [address] [place] [address] [employer]: Alfred Chirinos MD Erythrocyte distribution width (RBC) [Ratio] 13.1 % Normal 12.1-15.2 [facility] Comment on above: Performed By: #### C DP, CP #### [facility] [address] [place], [place] [phone] [employer]: Alfred Chirinos MD Hematocrit (Bld) [Volume fraction] 38.3 % Normal 36-46 [facility] Comment on above: Performed By: #### C DP, CP #### [facility] [address] [place], [place] [phone] [employer] Driver: Alfred Chirinos MD Hemoglobin (Bld) [Mass/Vol] 12.7 g/dL Normal 12.0-16.0 [facility] Comment on above: Performed By: #### C DP, CP #### [facility] [address] [place], [place] [phone] [employer] Driver: Alfred Chirinos MD Lymphocytes (Bld) [#/Vol] 2.30 10*3/uL Normal 1.0-4.8 [facility] Comment on above: Performed By: #### C DP, CP #### [facility] [address] [place], [place] [phone] [employer]: Alfred Chirinos MD Lymphocytes/100 WBC (Bld) 16 % Normal 15-40 [facility] Comment on above: Performed By: #### C DP, CP #### [facility] [address] [place], [place] [phone] [employer] Driver: Alfred Chirinos MD MCH (RBC) [Entitic mass] 29.3 pg Normal 26-34 [facility] Comment on above: Performed By: #### C DP, CP #### [facility] [address] [place], [place] [phone] [employer] Driver: Alfred Chirinos MD MCHC (RBC) [Mass/Vol] 33.1 g/dL Normal 31-37 [facility] Comment on above: Performed By: #### C DP, CP #### [facility] [address] [place], [place] [phone] [employer]: Alfred Chirinos MD MCV (RBC) [Entitic vol] 88.6 fL Normal 80-100 [facility] Comment on above: Performed By: #### C DP, CP #### [facility] [address] [place] [address] [employer] Driver: Alfred hCirinos MD Monocytes (Bld) [#/Vol] 1.00 10*3/uL Normal 0.0-1.0 [facility] Comment on above: Performed By: #### C DP, CP #### [facility] [address] [place], [place] [phone] [employer] Driver: Alfred Chirinos MD Monocytes/100 WBC (Bld) 7 % Normal 4-8 [facility] Comment on above: Performed By: #### C DP, CP #### [facility] [address] [place], [place] [phone] [employer] Driver: Alfred Chirinos MD Neutrophil (Seg) 73 % Normal 47-75 [facility] Comment on above: Performed By: #### C DP, CP #### [facility] [address] [place] [address] [employer] Driver: Alfred Chirinos MD Platelets (Bld) [#/Vol] 324 10*3/uL Normal 140-450 [facility] Comment on above: Performed By: #### C DP, CP #### [facility] [address] [place] [address] [employer]: Alfred Chirinos MD RBC (Bld) [#/Vol] 4.32 10*6/uL Normal 4.0-5.2 [facility] Comment on above: Performed By: #### C DP, CP #### [facility] [address] [place] [address] [employer]: Alfred Chirinos MD WBC (Bld) [#/Vol] 14.1 10*3/uL High 4.5-13.5 [facility] Comment on above: Performed By: #### C DP, CP #### [facility] [address] [place], [place] [phone] [employer]: Alfred Chirinos MD Comp Metabolic Profon 2021 Albumin [Mass/Vol] 4.4 g/dL Normal 3.5-5.2 [facility] Comment on above: Performed By: #### C DP, CP #### [facility] [address] [place] [address] [employer] Driver: Alfred Chirinos MD Alkaline Phos 75 U/L Normal 35-104 [facility] Comment on above: Performed By: #### C DP, CP #### [facility] [address] [place] [address] [employer]: Alfred Chirinos MD ALT [Catalytic activity/Vol] 14 U/L Normal 5-33 [facility] Comment on above: Performed By: #### C DP, CP #### [facility] [address] [place], [place] [phone] [employer]: Alfred Chirinos MD Anion gap [Moles/Vol] 12 mmol/L Normal 9-17 [facility] Comment on above: Performed By: #### C DP, CP #### [facility] [address] [place] [address] [employer]: Alfred Chirinos MD AST [Catalytic activity/Vol] 14 U/L Normal <32 [facility] Comment on above: Performed By: #### C DP, CP #### [facility] [address] [place] [address] [employer] Driver: Alfred Chirinos MD Bilirubin [Mass/Vol] 0.3 mg/dL Normal 0.3-1.2 [facility] Comment on above: Performed By: #### C DP, CP #### [facility] [address] [place] [address] [employer] Driver: Alfred Chirinos MD BUN/CRE Ratio 19 Normal 9-20 [facility] Comment on above: Performed By: #### C DP, CP #### [facility] [address] [place], [place] [phone] [employer]: Alfred Chirinos MD Calcium [Mass/Vol] 9.0 mg/dL Normal 8.6-10.4 [facility] Comment on above: Performed By: #### C DP, CP #### [facility] [address] [place] [address] [employer]: Alfred Chirinos MD Chloride [Moles/Vol] 102 mmol/L Normal 98-107 [facility] Comment on above: Performed By: #### C DP, CP #### [facility] [address] [place] [address] [employer]: Alfred Chirinos MD CO2 [Moles/Vol] 22 mmol/L Normal 20-31 [facility] Comment on above: Performed By: #### C DP, CP #### [facility] [address] [place] [address] [employer] Driver: Alfred Chirinos MD Creatinine [Mass/Vol] 0.52 mg/dL Normal 0.50-0.90 [facility] Comment on above: Performed By: #### C DP, CP #### [facility] [address] [place] [address] [employer]: Alfred Chirinos MD GFR/1.73 sq M.predicted among non-blacks MDRD (S/P/Bld) [Vol rate/Area] mL/min/{1.73_m2} Normal >60 [facility] Comment on above: Result Comment: Effective [...] Performed By: #### C DP, CP #### [facility] [address] [place] [address] [employer] Driver: Alfrde Chirinos MD Glucose [Mass/Vol] 124 mg/dL High 70-99 [facility] Comment on above: Performed By: #### C DP, CP #### [facility] [address] [place] [address] [employer] Driver: Alfred Chirinos MD Potassium [Moles/Vol] 3.2 mmol/L Low 3.7-5.3 [facility] Comment on above: Performed By: #### C DP, CP #### [facility] [address] [place] [address] [employer]: Alfred Chirions MD Protein [Mass/Vol] 6.7 g/dL Normal 6.4-8.3 [facility] Comment on above: Performed By: #### C DP, CP #### [facility] [address] [place] [address] [employer] Driver: Alfred Chirinos MD Sodium [Moles/Vol] 136 mmol/L Normal 135-144 [facility] Comment on above: Performed By: #### C DP, CP #### [facility] [address] [place] [address] [employer]: Alfred Chirinos MD Urea nitrogen [Mass/Vol] 10 mg/dL Normal 6-20 [facility] Comment on above: Performed By: #### C DP, CP #### [facility] [address] [place] [address] [employer]: Alfred Chirinos MD [facility] Metabolic Pane [facility] 08-24-2022 Albumin [Mass/Vol] 4.4 g/dL 3.5 - 5.2 g/dL [facility] ALP (Bld) [Catalytic activity/Vol] 75 U/L 35 - 104 U/L [facility] ALT [Catalytic activity/Vol] 14 U/L 5 - 33 U/L [facility] Anion gap [Moles/Vol] 12 mmol/L 9 - 17 mmol/L [facility] AST [Catalytic activity/Vol] 14 U/L NINF - 32 U/L [facility] Bilirubin [Mass/Vol] 0.3 mg/dL 0.3 - 1 .2 mg/dL [facility] Calcium [Mass/Vol] 9.0 mg/dL 8.6 - 10. 4 mg/dL [facility] Chloride [Moles/Vol] 102 mmol/L 98 - 10 7 mmol/L [facility] CO2 [Moles/Vol] 22 mmol/L 20 - 31 mmol/L [facility] Creatinine [Mass/Vol] 0.52 mg/dL 0.50 - 0.90 mg/dL [facility] GFR/1.73 sq M.predicted MDRD (S/P/Bld) [Vol rate/Area] - PINF [facility] Comment on above: Effective May 27, 2022 [...] 124 mg/dL High 70 - 99 mg/dL [facility] Interpretation and review of laboratory results Abnormal [facility] Potassium [Moles/Vol] 3.2 mmol/L Low 3.7 - 5.3 mmol/L [facility] Protein [Mass/Vol] 6.7 g/dL 6.4 - 8.3 g/dL [facility] Sodium [Moles/Vol] 136 mmol/L 135 - 144 mmol/L [facility] Urea nitrogen (BldV) [Mass/Vol] 10 mg/dL 6 - 20 mg/dL [facility] Urea nitrogen/Creatinine (Bld) [Mass ratio] 19 9 - 20 [facility] HCG Qualitative, Serumon hCG Qual Positive Abnormal NEGATIVE [facility] Comment on above: If HCG results do not concur with clinical observations, additional testing to confirm result is recommended. This test is not labeled for use as a tumor marker. [facility] has confirmed the use of plasma for this test. This has not been cleared or approved by the U.S. Food and Drug Administration. The FDA has determined that such clearance is not necessary. Interpretation and review of laboratory results Abnormal [facility] HCG Screen, Bloodon 08-24-20 22 HCG Screen, Blood Positive Abnormal NEG [facility] Comment on above: Result Comment: If HCG results do not concur with clinical observations, additional testing to confirm result is recommended. This test is not labeled for use as a tumor marker. [facility] for this test. This has not been cleared or approved by the U.S. Food and Drug Administration. The FDA has determined that such clearance is not necessary. Performed By: #### C DP, CP #### [facility] [address] [place] [address] [employer]: Alfred Chirinos MD Urinalysison 08-24-2022 Bilirubin Urine Negative NEGATIVE [facility] Color, UA Yellow Yellow [facility] Glucose, Ur Negative NEGATIVE [facility] Interpretation and review of laboratory results Abnormal [facility] Ketones Ql (U) MODERATE Abnormal NEGATIVE [facility] Leukocyte esterase Test strip Ql (U) Negative NEGATIVE [facility] Nitrite, Urine Negative NEGATIVE [facility] pH, UA 6.0 5.0 - 8.0 [facility] Protein, UA TRACE Abnormal NEGATIVE [facility] Specific [place], UA 1.025 1.005 - 1.030 B ON [facility] Turbidity UA Clear Clear [facility] Urinalysis Comments [facility] Urine Hgb Negative NEGATIVE [facility] Urobilinogen, Urine Normal Normal [facility] Urinalysis, Routineon 2021 Bilirubin, SemiQt,Ur Negative Normal NEG [facility] Comment on above: Performed By: #### U A #### [facility] [address] [facility] [place] [phone] [employer]: Alfred Chirinos MD Blood, Urine Negative Normal NEG [facility] Comment on above: Performed By: #### U A #### [facility] [address] [facility] [place] [phone] [employer] Driver: Alfred Chirinos MD Clarity (U) Clear Normal CLEAR [facility] Comment on above: Performed By: #### U A #### [facility] [address] [facility] [place] [phone] [employer]: Alfred Chirinos MD Color (U) Yellow Normal YEL [facility] Comment on above: Performed By: #### U A #### [facility] [address] [facility] [place] [phone] [employer]: Alfred Chirinos MD Comment Normal [facility] Comment on above: Performed By: #### U A #### [facility] [address] [facility] [place] [phone] [employer]: Alfred Chirinos MD Glucose Ql (U) Negative Normal NEG [facility] Comment on above: Performed By: #### U A #### [facility] [address] [facility] [place] [phone] [employer]: Alfred Chirinos MD Ketones Ql (U) MODERATE Abnormal NEG [facility] Comment on above: Performed By: #### U A #### [facility] [address] [facility] [place] [phone] [employer] Driver: Alfred Chirinos MD Leukocyte esterase Test strip Ql (U) Negative Normal NEG [facility] Comment on above: Performed By: #### U A #### [facility] [address] [place], [place] [phone] [employer] Driver: Alfred Chirinos MD Nitrite,Ur Negative Normal NEG [facility] Comment on above: Performed By: #### U A #### [facility] [address] [place], [place] [phone] [employer] Driver: Alfred Chirinos MD PH,Ur 6.0 Normal 5.0-8.0 [facility] Comment on above: Performed By: #### U A #### [facility] [address] [place], [place] [phone] [employer]: Alfred Chirinos MD Protein Ql (U) TRACE Abnormal NEG [facility] Comment on above: Performed By: #### U A #### [facility] [address] [place] [address] [employer] Driver: Alfred Chirinos MD Spec. [place],Ur 1.025 Normal 1.005-1.030 [facility] Comment on above: Performed By: #### U A #### [facility] [address] [place], [place] [phone] [employer] Driver: Alfred Chirinos MD Urobilinogen,Ur Normal Normal NORM [facility] Comment on above: Performed By: #### U A #### [facility] [address] [place] [phone] [employer] Driver: Alfred Chirinos MD HCG, Quanton 08-12-2022 HCG, Quant 1823 mIU/mL High <5 [facility] Comment on above: Result Comment: Non-preg premeno <=5 Postmeno <=8 Male <=3 If HCG results do not concur with clinical observations, additional testing to confirm results is recommended. Performed By: #### B HCG #### [facility] [address] [place] [address] [employer]: Alfred Chirinos MD CBC with Auto Differentialon 08-10-2022 Absolute Eos # 0.30 [facility] Absolute Lymph # 2.80 [facility] Absolute [place] # 0.80 [facility] Basophils (Bld) [#/Vol] 0.00 10*3/uL [facility] Basophils/100 WBC (Bld) 0 % 0 - 2 % [facility] Differential Type YES [facility] Eosinophils/100 WBC (Bld) 3 % 0 - 5 % [facility] Hematocrit (Bld) [Volume fraction] 37.7 % 36 - 46 % [facility] Hemoglobin (Bld) [Mass/Vol] 12.7 g/dL 12.0 - 16.0 g/dL [facility] Lymphocytes/100 WBC (Bld) 26 % 15 - 40 % [facility] MCH (RBC) [Entitic mass] 29.5 pg 26 - 34 pg [facility] MCHC (RBC) [Mass/Vol] 33.7 g/dL 31 - 37 g/dL B [facility] MCV (RBC) [Entitic vol] 87.5 fL 80 - 100 fL [facility] Monocytes/100 WBC (Bld) 8 % 4 - 8 % [facility] Platelet distribution width (Bld) [Ratio] 13.1 % 12.1 - 15.2 % [facility] Platelets (Bld) [#/Vol] 269 10*3/uL [facility] RBC (Bld) [#/Vol] 4.31 10*6/uL 4.0 - 5.2 m/uL [facility] Segmented neutrophils/100 WBC (Bld) 63 % 47 - 75 % [facility] Segs Absolute 7.00 [facility] WBC (Bld) [#/Vol] 10.9 10*3/uL [facility] CBC with Diffon 08-10-2022 Abs. Basophil 0.00 k/uL Normal 0.0-0.2 [facility] Comment on above: Performed By: #### L IP, CP, CDP #### [facility] [address] [place] [address] [employer]: Alfred Chirinos MD Abs.Neutrophil (Seg) 7.00 k/uL Normal 2.5-7.0 [facility] Comment on above: Performed By: #### L IP, CP, CDP #### [facility] [address] [place], [place] [phone] [employer]: Alfred Chirinos MD Auto Diff Performed YES Normal [facility] Comment on above: Performed By: #### L IP, CP, CDP #### [facility] [address] [place], [place] [phone] [employer] Driver: Alfred Chirinos MD Basophils/100 WBC (Bld) 0 % Normal 0-2 [facility] Comment on above: Performed By: #### L IP, CP, CDP #### [facility] [address] [place], [place] [phone] [employer] Driver: Alfred Chirinos MD Eosinophils (Bld) [#/Vol] 0.30 10*3/uL Normal 0.0-0.4 [facility] Comment on above: Performed By: #### L IP, CP, CDP #### [facility] [address] [place], [place] [phone] [employer] Driver: Alfred Chirinos MD Eosinophils/100 WBC (Bld) 3 % Normal 0-5 [facility] Comment on above: Performed By: #### L IP, CP, CDP #### [facility] [address] [place] [address] [employer] Driver: Alfred Chirinos MD Erythrocyte distribution width (RBC) [Ratio] 13.1 % Normal 12.1-15.2 [facility] Comment on above: Performed By: #### L IP, CP, CDP #### [facility] [address] [place], [place] [phone] [employer] Driver: Alfred Chirinos MD Hematocrit (Bld) [Volume fraction] 37.7 % Normal 36-46 [facility] Comment on above: Performed By: #### L LISSA NOWAK, CDP #### [facility] [address] [place], [place] [phone] [employer]: Alfred Chirinos MD Hemoglobin (Bld) [Mass/Vol] 12.7 g/dL Normal 12.0-16.0 [facility] Comment on above: Performed By: #### L LISSA NOWAK, CDP #### [facility] [address] [place] [address] [employer] Driver: Alfred Chirinos MD Lymphocytes (Bld) [#/Vol] 2.80 10*3/uL Normal 1.0-4.8 [facility] Comment on above: Performed By: #### L LISSA NOWAK, CDP #### [facility] [address] [place], [place] [phone] [employer]: Alfred Chirinos MD Lymphocytes/100 WBC (Bld) 26 % Normal 15-40 [facility] Comment on above: Performed By: #### L LISSA NOWAK, CDP #### [facility] [address] [place], [place] [phone] [employer] Driver: Alfred Chirinos MD MCH (RBC) [Entitic mass] 29.5 pg Normal 26-34 [facility] Comment on above: Performed By: #### L LISSA NOWAK, CDP #### [facility] [address] [place], [place] [phone] [employer] Driver: Alfred Chirinos MD MCHC (RBC) [Mass/Vol] 33.7 g/dL Normal 31-37 [facility] Comment on above: Performed By: #### L LISSA NOWAK, CDP #### [facility] [address] [place], [place] [phone] [employer] Driver: Alfred Chirinos MD MCV (RBC) [Entitic vol] 87.5 fL Normal 80-100 [facility] Comment on above: Performed By: #### L IP, CP, CDP #### [facility] [address] [place] [address] [employer] Driver: Alfred Chirinos MD Monocytes (Bld) [#/Vol] 0.80 10*3/uL Normal 0.0-1.0 [facility] Comment on above: Performed By: #### L IP, CP, CDP #### [facility] [address] [place], [place] [phone] [employer] Driver: Alfred Chirinos MD Monocytes/100 WBC (Bld) 8 % Normal 4-8 [facility] Comment on above: Performed By: #### L IP, CP, CDP #### [facility] [address] [place] [address] [employer] Driver: Alfred Chirinos MD Neutrophil (Seg) 63 % Normal 47-75 [facility] Comment on above: Performed By: #### L IP, CP, CDP #### [facility] [address] [place] [address] [employer] Driver: Alfred Chirinos MD Platelets (Bld) [#/Vol] 269 10*3/uL Normal 140-450 [facility] Comment on above: Performed By: #### L IP, CP, CDP #### [facility] [address] [place], [place] [phone] [employer] Driver: Alfred Chirinos MD RBC (Bld) [#/Vol] 4.31 10*6/uL Normal 4.0-5.2 [facility] Comment on above: Performed By: #### L IP, CP, CDP #### [facility] [address] [place] [address] ([phone]) [employer] Driver: Alfred Chirinos MD WBC (Bld) [#/Vol] 10.9 10*3/uL Normal 4.5-13.5 [facility] Comment on above: Performed By: #### L IP, CP, CDP #### [facility] [address] [place] [address] [employer] Driver: Alfred Chirinos MD [facility] 08-10-2022 Albumin [Mass/Vol] 4.2 g/dL 3.5 - 5.2 g/dL [facility] ALP (Bld) [Catalytic activity/Vol] 75 U/L 35 - 104 U/L [facility] ALT [Catalytic activity/Vol] 18 U/L 5 - 33 U/L [facility] Anion gap [Moles/Vol] 7 mmol/L Low 9 - 17 mmol/L [facility] AST [Catalytic activity/Vol] 16 U/L NINF - 32 U/L [facility] Bilirubin [Mass/Vol] 0.2 mg/dL Low 0.3 - 1 .2 mg/dL [facility] Calcium [Mass/Vol] 9.1 mg/dL 8.6 - 10. 4 mg/dL [facility] Chloride [Moles/Vol] 108 mmol/L High 98 - 10 7 mmol/L [facility] CO2 [Moles/Vol] 25 mmol/L 20 - 31 mmol/L [facility] Creatinine [Mass/Vol] 0.58 mg/dL 0.50 - 0.90 mg/dL [facility] GFR/1.73 sq M.predicted MDRD (S/P/Bld) [Vol rate/Area] - PINF [facility] Comment on above: Effective May 27, 2022 [...] [Mass/Vol] 95 mg/dL 70 - 99 mg/dL [facility] Interpretation and review of laboratory results Abnormal [facility] Potassium [Moles/Vol] 4.2 mmol/L 3.7 - 5.3 mmol/L [facility] Protein [Mass/Vol] 6.8 g/dL 6.4 - 8.3 g/dL [facility] Sodium [Moles/Vol] 140 mmol/L 135 - 144 mmol/L [facility] Urea nitrogen (BldV) [Mass/Vol] 7 mg/dL 6 - 20 mg/dL [facility] Urea nitrogen/Creatinine (Bld) [Mass ratio] 12 9 - 20 [facility] Comp Metabolic Profon 2021 Albumin [Mass/Vol] 4.2 g/dL Normal 3.5-5.2 [facility] Comment on above: Performed By: #### B HCG #### [facility] [address] [place], [place] [id number] [employer] Driver: Alfred Chirinos MD Alkaline Phos 75 U/L Normal 35-104 [facility] Comment on above: Performed By: #### B HCG #### [facility] [address] [place], [place] [phone] [employer] Driver: Alfred Chirinos MD ALT [Catalytic activity/Vol] 18 U/L Normal 5-33 [facility] Comment on above: Performed By: #### B HCG #### [facility] [address] [place], [place] [id number] [employer] Driver: Alfred Chirinos MD Anion gap [Moles/Vol] 7 mmol/L Low 9-17 [facility] Comment on above: Performed By: #### B HCG #### [facility] [address] [place], [place] [phone] [employer] Driver: Alfred Chirinos MD AST [Catalytic activity/Vol] 16 U/L Normal <32 [facility] Comment on above: Performed By: #### B HCG #### [facility] [address] [place], [place] [id number] [employer] Driver: Alferd Chirinos MD Bilirubin [Mass/Vol] 0.2 mg/dL Low 0.3-1.2 [facility] Comment on above: Performed By: #### B HCG #### [facility] [address] [place], [place] [phone] [employer] Driver: Alfred Chirinos MD BUN/CRE Ratio 12 Normal 9-20 [facility] Comment on above: Performed By: #### B HCG #### [facility] [address] [place], [place] [phone] [employer] Driver: Alfred Chirinos MD Calcium [Mass/Vol] 9.1 mg/dL Normal 8.6-10.4 [facility] Comment on above: Performed By: #### B HCG #### [facility] [address] [place], [place] [phone] [employer] Driver: Alfred Chirinos MD Chloride [Moles/Vol] 108 mmol/L High 98-107 [facility] Comment on above: Performed By: #### B HCG #### [facility] [address] [place], [place] [id number] Farm [employer] Driver: Alfred Chirinos MD CO2 [Moles/Vol] 25 mmol/L Normal 20-31 [facility] Comment on above: Performed By: #### B HCG #### [facility] [address] [place], [place] [phone] [employer] Driver: Alfred Chirinos MD Creatinine [Mass/Vol] 0.58 mg/dL Normal 0.50-0.90 [facility] Comment on above: Performed By: #### B HCG #### [facility] [address] [place], [place] [phone] [employer] Driver: Alfred Chirinos MD GFR/1.73 sq M.predicted among non-blacks MDRD (S/P/Bld) [Vol rate/Area] mL/min/{1.73_m2} Normal >60 [facility] Comment on above: Result Comment: Effective [...] secretion. Performed By: #### B HCG #### [facility] [address] [place] [address] [employer] Driver: Alfred Chirinos MD Glucose [Mass/Vol] 95 mg/dL Normal 70-99 [facility] Comment on above: Performed By: #### B HCG #### [facility] [address] [place] [address] [employer] Driver: Alfred Chirinos MD Potassium [Moles/Vol] 4.2 mmol/L Normal 3.7-5.3 [facility] Comment on above: Performed By: #### B HCG #### [facility] [address] [place] [address] [employer] Driver: Alfred Chirinos MD Protein [Mass/Vol] 6.8 g/dL Normal 6.4-8.3 [facility] Comment on above: Performed By: #### B HCG #### [facility] [address] [place] [address] [employer] Driver: Alfred Chirinos MD Sodium [Moles/Vol] 140 mmol/L Normal 135-144 [facility] Comment on above: Performed By: #### B HCG #### [facility] [address] [place] [address] [employer] Driver: Alfred Chirinos MD Urea nitrogen [Mass/Vol] 7 mg/dL Normal 6-20 [facility] Comment on above: Performed By: #### B HCG #### [facility] [address] [place] [address] [employer] Driver: Alfred Chirinos MD HCG, Quanton 08-10-2022 HCG, Quant 587 mIU/mL High <5 [facility] Comment on above: Result Comment: Non-preg premeno <=5 Postmeno <=8 Male <=3 If HCG results do not concur with clinical observations, additional testing to confirm results is recommended. Performed By: #### B HCG #### [facility] [address] [place] [address] [employer] Driver: Alfred Chirinos MD Lipaseon 08-10-2022 Lipase [Catalytic activity/Vol] 26 U/L Normal 13-60 [facility] Comment on above: Performed By: #### B HCG #### [facility] [address] [place] [address] [employer] Driver: Alfred Chirinos MD Lipase [Catalytic activity/Vol] 26 U/L 13 - 60 U/L [facility] No Panel Informationon 08-10 [facility] US OB TRANSVAGINALon 022 US OB TRANSVAGINAL [...] Carlos Roland MD 08/10/22 Final result Normal [facility] Urinalysison 08-10-2022 Bilirubin Urine Negative NEGATIVE [facility] Color, UA Yellow Yellow [facility] Glucose, Ur Negative NEGATIVE [facility] Interpretation and review of laboratory results Abnormal [facility] Ketones Ql (U) Negative NEGATIVE [facility] Leukocyte esterase Test strip Ql (U) Negative NEGATIVE [facility] Nitrite, Urine Negative NEGATIVE [facility] pH, UA 7.0 5.0 - 8.0 [facility] Protein, UA TRACE Abnormal NEGATIVE [facility] Specific [place], UA 1.010 1.005 - 1.030 B ON [facility] Turbidity UA Clear Clear [facility] Urinalysis Comments [facility] Urine Hgb Negative NEGATIVE [facility] Urobilinogen, Urine Normal Normal [facility] Urinalysis, Routineon 2021 Bilirubin, SemiQt,Ur Negative Normal NEG [facility] Comment on above: Performed By: #### C DP, CP #### [facility] [address] [place] [address] [employer] Driver: Alfred Chirinos MD Blood, Urine Negative Normal NEG [facility] Comment on above: Performed By: #### C DP, CP #### [facility] [address] [place] [phone] [employer] Driver: Alfred Chirinos MD Clarity (U) Clear Normal CLEAR [facility] Comment on above: Performed By: #### C DP, CP #### [facility] [address] [place] [phone] [employer] Driver: Alfred Chirinos MD Color (U) Yellow Normal YEL [facility] Comment on above: Performed By: #### C DP, CP #### [facility] [address] [place] [phone] [employer] Driver: Alfred Chirinos MD Comment Normal [facility] Comment on above: Performed By: #### C DP, CP #### [facility] [address] [place] [phone] [employer] Driver: Alfred Chirinos MD Glucose Ql (U) Negative Normal NEG [facility] Comment on above: Performed By: #### C DP, CP #### [facility] [address] [place] [address] [employer] Driver: Alfred Chirinos MD Ketones Ql (U) Negative Normal NEG [facility] Comment on above: Performed By: #### C DP, CP #### [facility] [address] [place], [place] [phone] [employer] Driver: Alfred Chirinos MD Leukocyte esterase Test strip Ql (U) Negative Normal NEG [facility] Comment on above: Performed By: #### C DP, CP #### [facility] [address] [place], [place] [phone] Farm [employer] Driver: Alfred Chirinos MD Nitrite,Ur Negative Normal NEG [facility] Comment on above: Performed By: #### C DP, CP #### [facility] [address] [place], [place] [phone] Farm [employer] Driver: Alfred Chirinos MD PH,Ur 7.0 Normal 5.0-8.0 [facility] Comment on above: Performed By: #### C DP, CP #### [facility] [address] [place] [address] [employer] Driver: Alfred Chirinos MD Protein Ql (U) TRACE Abnormal NEG [facility] Comment on above: Performed By: #### C DP, CP #### [facility] [address] [place] [address] Farm [employer] Driver: Alfred Chirinos MD Spec. [place],Ur 1.010 Normal 1.005-1.030 [facility] Comment on above: Performed By: #### C DP, CP #### [facility] [address] [place], [place] [phone] [employer] Driver: Alfred Chirinos MD Urobilinogen,Ur Normal Normal NORM [facility] Comment on above: Performed By: #### C DP, CP #### [facility] [address] [place] [address] [employer] Driver: Alfred Chirinos MD hCG, quantitative, on 08-10-2022 hCG Quant 587 High NINF [facility] Comment on above: Non-preg premeno <=5 Postmeno <=8 Male <=3 If HCG results do not concur with clinical observations, additional testing to confirm results is recommended. Interpretation and review of laboratory results Abnormal [facility] Coding Summary.on 07-15-2022 Coding Summary. [id number] Gh0bWw+PGhlYWQ+PE1FV FJkY35ixAJauI2WR8cIK E1PVFRXZJGSZJ2LMD6zj MG0VXvgQ5GtjnVv ZyglqBWpRJ83BOc6XTE4 pDlkWIvkpI7pfYGyK2p2 VtZsHR64oW28LQgfJXGv JwO9WyAttgotyYNo D6yoNrZbsFUvKjp+PHRh YmxlIHdpZHRoPScxMDAl CmJcwJfsSE7dKk3tURIa LWNvbGxhcHNlOiBj j3tnTRXvJHegDA3zbWbb C7PgtMV1VYVao0d7So18 dHI+KBMdODD1oHmwVUwn e266FaVbu5fjLCJ2 fTRbHEwzEZK2Z79qu1E6 ZIElZLIhFSV7hAQ7hC9g gXnjtkhpX4BjxHRsCuB6 UMJ5gTZjsM8hoGkn kmmtiF5tCuc+R50KEJ1F OITUTB0OFuc8Z4BhGlyg dHI+TO56REXwTW11hWCx bXXwn3jjrAm3XxTu SMPnYTS6cJouOIhuq1Yb PFVrR86fdMPoe3S5ABHh nIzqgKUnFzUjaRU9dR1h EOzardthe7gsgkoa Xejiy8iukk34cT38T16y LJgrNGTuUMW4UBNsASHg eUcmwh3lxB1sPf0+IDxj y0mhj6kugEe5QdRm VPGxzpYrdSxlZSH5s0Mz Ex12E9KlzGnaa4FqFag2 ck63nWMau8E8xGP0NFyr TKUsxH6cSNhrBlB8 XACnWrOpyQ64nKDtUTtc Db8kkMngnRucFC4nBDWz lmtsQFKbeR1bCLRakNTs hOlyVR8mIYYqwvna u348IcWtQIC6NNUwlKBt Y9TtcA6lClAqWDJjZNVf T5GpvQXbBZaqA726OSxc GxW6XACzxgOtC8Rg SRKldInlSrK8k2S3Ss1P l5FikhqyQJB1DTkwNGQu EnSwRsAmQvI0Q9DkAsv2 JMEbuZtyLU8rW7Qc YAZnszpjrfcawOX2KPTo LQQsjR39yINcKVmmYd0c f5U1w474DAKkCZAljA03 Tu0uxKksYFZhfQZU rL7qdwnbx7izqiyxHzKc WKNkJQu9QAh2KJTmlNqu ZwCbJWC7EnW7GWL1aHBt nM9fpOnhdvwxnR4g Oyc+U72emF0fYXZ3VWG6 nmgcPPRnmfAgYC58WZ29 Q1RaYfowrTEltAP+PGRp osRviJciIQ4dJwQa i0bnv0RaBIkhI3NpTUZw LUxlSvr1DQIpVKF2vML7 fA4vYFMrNGymn3J3zNV2 V0OmcmMxtm5hf3rh VFJcOYfaB10zhQAgl2J2 PDShiYQ2GVBflHvdXiNc wV97Tqb+MMYnaOuzo7Yr Rzzcs0tdm3kugEf1 IjMwJSIgdmFsaWduPSJ0 x0BsYb37Q54eLOepQKTm FCDiPVDxIFJqzKldea3e qM6oWo4+PGNvbCB3 rFN5lZ8gROHdAlM6GYec D465FtYhtJZqWjcrz0la k0renPo6UbChLOPwfbRd iZgoCUM8w6DwGj38 Y88sOMgtXZKuPRHiIRFt MXUulPmaka4goB2qMy2+ TF7zt5yrno16hZ00aRH+ HWAnDDB5gIquSVkd TZStmK6lDJosYpU8NEJw HaJkqR22sNUcEVbuOu1f qZxecAmhIK2tRCEpclec e592BdUdk6rnRZJy eODtRSioPCE2P87pf5S6 ZBAcYTOgFQH7zCZ9kS2n bGlnbjogbGVmdDsgdmVy bTqsMYtxJZttK331 IHRvcDsnPlBhdGllbnQg ItIxFRi6Q0BsUqc1GGBu xLzfPS6qmCVtMAqjDy9u nPoptVajNQ6hVBFe djvvk264QjCvx0ayPFUe hAEtWAfdAYE8L00xr9C3 WLWhGCQmPDD3sDW5lN4g bGlnbjogbGVmdDsg reYmfBroULvfSTbkF700 IHRvcDsnPkJpcnRoIERh uFY7CS67PV57nZVab1Q1 hRE6A7GuGPVcvdvd wmcoaPX0YVWqAOUsaU66 Iy3ovUnzWj1uNNJkEJS5 HEGneRAjZ8AvfQ0iViAf BLRoYEFqC9WpnOKs KIwqK339DWlxXlK4AWFn mgJuI2XdMEKymKwtIhS0 x7H1Ou3RW4N3LO60CZ75 fRLtt8V6rMD7D3Kw BERianatjxfgfME8NFAc YJImrC01Jx7amJdfNe8w YIXfTWM8XDZgkFToI4Ar xF6cNiVeTQUiBXYx S8JrmEChQTdjJ040UFjb ZzT4JKKoblLqT6ZjKGAp vZmbUjO0n2P3Vu8MKTe6 HP26XB44qGVfo0C9 sBL0Z1PgWDFabhixavdq gRF9LRHcOIRmnH79Xw7d eGkdOi5zBOFnJBZ4DEZn sLFsK4ZjmE6qLtMp FRAoCDMoS2TqhOAePFak D045WRsgVnG9RIOeegYr C6FsIPRwlLcxDyY5j7X7 Oe3OJYVyOT97MFT4 cBN1XG34KP01Q0WoPhox dGFibGU+PHRhYmxlIHdp ZHRoPScxMDAlJyBzdHls LC1fQn9sNBNfZMOe vVrmpSWzZgRjp8xrMNGr QKidRJ3teSxdA4UdlFG8 BMFlq6p2Hi96J92tZ2Us dXA+IWBdgOX0oNG2 tP5cZrRiTnU1VVesC784 TqNinNYgZxbas2zrm5tj wIa1JcP8HUZktcWemQlt YWP8w9DyTt82O54r IHdpZHRoPSIxNSUiIHZh wGzqzz4lmP4yLn4+PGNv pPC8nAN2qA9nYnBaCwY9 EVcaX429XfEobQZs Eckek0knx2qosFs9AjMk JMXjmuIeuZnzDIL5w5Oj Wt06L8CcpTywm2QrChu5 rg76zQXnp9Q5bZX9 H2EqAXVairboiZQcrBud DA3uNRUxoctnLJXsyJ7l PKUqG7g3VrQuQyE4SMon O3NtrgS4FQIewFWa YJuoHKT9W21ya7E5WLGs FOZuFCT1sJD6bA5dfMdx bjogbGVmdDsgdmVydGlj QDokEEvsX199SLKb aKvnTZOozC4fTFBifGRb sIriJN2eWJHrtuthHr9D MTPYBABAVQWRGNXGLD8P CF58H0NeVur0MQZa eAgmYQ5xoPHuFFgxLo6p eOarpFwhXL5gONXuvvui YDMcpU2yMMQkhGBzvSfe FB7uRVYiehuxy279 KfQuRKJ5NRWxhHRpA2Sx cB3xMdYsGAOxZJLxZ0It rKAwLDedI855NLczGmC2 RBEvoqDlM9JoOTTp hLqeSyJ0g2B2Zv9zOC8w LU4pNVQgEZ28VN41qFPd h3P3sTA6L4UoWJJqmfym qmkiwRH9OHMzKZUv kJ38qZAjMNdfUk1td3A2 o928DOEhEDHuzS82Vi3w dThwCIUcqZJVqF0tkpmh n3mmxeeeJsKuHLTj VCa3WSl9MXHruQvrVlJr ANY5GsZ9IYC2kWRxkE1w rZzarvlwmO0dZfz+MjEg SDKipgL4X7HkFet1 JUKzeYirWL8ffPEoVCyq Qa3jrAwhrElgNN2eSPCm hwhuIETefC8aHNPjsVVf fFidML8rYBEeclwn j806YyWcBMV2PPMpoUQq L9DqtS1zQpYhBFGtRYNl L1NovASlTTzkY298UTok BnL6UDRrxmDtE0Mp LPNgvZtqUsD7b7N8Mo1X JG9mnLC9Q4BmPtz3CIXp dHmrDX4mvZDnPBinSf4v yDcqbYkrEU8gERCf dhepTIIplW8fPQZpuTHd vXlzJZ2nTWHeflctp475 QuYmORO5FSZkfBVjV4Cx kD1oQqPsENPnKJIo W7FqsECpZBlfO406GAcy DlP6PNYlzrLwN8GvCDGd uRcrBdC5p8X3Sn9UtDLu W1UdB5v1U6UdEnzq dHI+OQ86NUHnCZ06hXDw hXFld8kpuRh0UdCqHDLu FSK6uYgyMIlch1TkVAHj W53vqRYhv3F7PAJc mMjjqCApEzTdgUQ0iL7j KGnlhudyi9nlhelcFxau q9qscl13eR42B07cRLsv ZHRoPSIzMCUiIHZh qOnqmb6yyQ7qNf2+PGNv oML6wAP6vN5gLlCiGfO3 ARwpY285XvAevLFgModi m3jfe6xxnVj2EzSd VTSlxnGkfHydKCD6o5Zq Bg84K59yBPdqMFOzCCAd OJPnQLHalIhmty6afM8o Ii8+EU9sq5wkpi70 hX87zIU+YPVaOOM6mOna EZpqKCLheN0dIBbfFrO6 YOFsEqOofG77xXPpNUfq Qy1fsWpgaVzoAQ0i UHThyfsbb745TgJqa2hd JNTssWKjCRwvDAQ4U27e g9Q0DFHqCEJiIHF0lLS1 lA3hoIepmrqulZSb dDsgdmVydGljYWwtYWxp O069RIJldZjpWtSwjNYe O0rxgyHCQM9fOpzfqSQ+ XHCqZGU4cQprPCga AMZcvT8bGDCbS8s4QbCo NsB8YZkiI5FaabI7QFEq uFHhBKIekWHVpD8puawa n8kmtissPlCdZJFu UDy7GWj2ZWKtlCcmVeJj FYU0GrU5WUV6pNEqzA5z dFsnhzyudP4uGls+RklO OjwvdGQ+PHRkIHN0 mFiiRNmfTPKlcI0tSXYj D5f5KcZnKnP2CLekK7Dh ppL3XDPktYQaCUOucLAP zH5xpyqge6dvwucd MrMuPAVdOEc6NTi5PUAt mHqeQzYuDQC8CzL3PKS5 dRTabN3okNwedplmwU8l Oyc+TVJOOjwvdGQ+ VWGbESC2qZnuMEwaPMBi oY5pXXZnQ7k7IaGvBtU7 IWmeD7VqhbJ0WUCuaXZj BWUcfEGIeK4xhbgh a2lpmfpbPoWzAVRzGRa1 GLx7ZJUrkCzwJfQmKRV5 HkN7DQY0gVCxoY1vqRok brrmwZ4kUre+UGF5 YJT3OY12MF37H7PsVbij dGFibGU+PHRhYmxlIHdp ZHRoPScxMDAlJyBzdHls IQ2lJc9mBEKtRVDq bGxh (more content not included)... Normal [facility] Auto Diffon 07-12-2022 Basophils/100 WBC (Bld) 0.6 % Normal 0.0-2.0 [facility] Comment on above: Order Comment: Order Added by Ally Expert. Performed By: #### 2 862251, 9484764, 3446607, 2504108, 28999255, 5749208, 7560574 #### [facility] [address] [place] [address] Basophils/Leukocytes Auto (Bld) [Pure # fraction] 0.1 E9/L Normal 0.0-0.2 [facility] Comment on above: Order Comment: Order Added by Discern Expert. Performed By: #### 2 049385, 7410343, 0331600, 9193810, 58564761, 8788742, 2733315 #### [facility] [address] [place] [address] Eosinophils/100 WBC (Bld) 5.6 % Normal 0.0-8.0 [facility] Comment on above: Order Comment: Order Added by Discern Expert. Performed By: #### 2 460137, 1349768, 2341574, 6156061, 16216594, 3848090, 0763388 #### [facility] [address] [place] [address] Eosinophils/Leukocyte s Auto (Bld) [Pure # fraction] 0.5 E9/L Normal 0.0-0.5 [facility] Comment on above: Order Comment: Order Added by Discern Expert. Performed By: #### 2 240318, 2675436, 6983136, 2335210, 87765341, 8627245, 6410980 #### [facility] [address] [place] [address] Lymphocytes/100 WBC (Bld) 34.7 % Normal 14.0-50.0 [facility] Comment on above: Order Comment: Order Added by Discern Expert. Performed By: #### 2 594924, 0753452, 8164435, 5061962, 82971417, 5471791, 7791008 #### [facility] [address] [place] [address] Lymphocytes/Leukocyte s Auto (Bld) [Pure # fraction] 3.1 E9/L Normal 1.0-4.0 [facility] Comment on above: Order Comment: Order Added by Discern Expert. Performed By: #### 2 321821, 0505297, 5314456, 7190250, 93782481, 8782794, 8232567 #### [facility] [address] [place] [address] Monocytes/100 WBC (Bld) 10.3 % Normal 4.0-14.0 [facility] Comment on above: Order Comment: Order Added by Discern Expert. Performed By: #### 2 090678, 7240023, 5631927, 7892849, 07694243, 2915824, 4861210 #### [facility] [address] [place] [address] Monocytes/Leukocytes Auto (Bld) [Pure # fraction] 0.9 E9/L Normal 0.2-1.0 [facility] Comment on above: Order Comment: Order Added by Discern Expert. Performed By: #### 2 969664, 2894033, 1916879, 5147283, 17493119, 2045460, 6058282 #### [facility] [address] [place] [address] Neutrophils/100 WBC (Bld) 48.8 % Normal 36.0-75.0 [facility] Comment on above: Order Comment: Order Added by Discern Expert. Performed By: #### 2 025534, 0810245, 1212709, 0704771, 19619881, 9362108, 0367969 #### [facility] [address] [place] [address] Neutrophils/Leukocyte s Auto (Bld) [Pure # fraction] 4.4 E9/L Normal 2.0-7.5 [facility] Comment on above: Order Comment: Order Added by Discern Expert. Performed By: #### 2 748424, 7566488, 1322780, 5897114, 30634659, 1518378, 3520534 #### [facility] [address] [place] [address] B hCG Qualon 07-12-2022 Beta hCG Ql Negative Normal [facility] Comment on above: Performed By: #### 2 415060, 4867015, 1088801, 1020312, 49744964, 0286242, 0920475 #### [facility] [address] [place] [address] BMPon 07-12-2022 Creatinine [Mass/Vol] 0.7 mg/dL Normal 0.5-1.3 [facility] Comment on above: Performed By: #### 2 348102, 9963244, 8391597, 0051877, 42332032, 2859639, 9549457 #### [facility] [address] [place] [address] Urea nitrogen [Mass/Vol] 9 mg/dL Normal 5-21 [facility] Comment on above: Performed By: #### 2 135329, 8531501, 2263396, 3213948, 95999494, 9763374, 7206025 #### [facility] [address] [place] [address] Urea nitrogen/Creatinine [Mass ratio] 13 No Units Normal 10-20 [facility] Comment on above: Performed By: #### 2 548417, 0233884, 2724712, 1650300, 35853001, 5773664, 3667532 #### [facility] [address] [place] [address] Anion gap [Moles/Vol] 7 mmol/L Normal 6-16 [facility] Comment on above: Performed By: #### 2 248220, 8078965, 8999712, 2545497, 34726991, 0035216, 7552175 #### [facility] [address] [place] [address] Calcium [Mass/Vol] 8.8 mg/dL Low 8.9-11.1 [facility] Comment on above: Performed By: #### 2 967702, 0820658, 1737781, 8427985, 52406564, 4910705, 8283166 #### [facility] [address] [place] [address] Chloride [Moles/Vol] 106 mmol/L Normal 101-111 [facility] Comment on above: Performed By: #### 2 210609, 8723095, 2389322, 7718034, 01010265, 1404265, 0348969 #### [facility] [address] [place] [address] CO2 [Moles/Vol] 31 mmol/L Normal 21-31 [facility] Comment on above: Performed By: #### 2 618180, 5152679, 2403245, 6120894, 11120549, 1896690, 7543275 #### [facility] [address] [place] [address] Glucose [Mass/Vol] 108 mg/dL Normal 55-199 [facility] Comment on above: Result Comment: If t his glucose result represents a fasting glucose, interpretation should refer to the following reference range: 55-99 mg/dL Performed By: #### 2 219686, 7538673, 7205534, 3278471, 82279615, 8778483, 0371748 #### [facility] [address] [place] [address] Potassium [Moles/Vol] 3.3 mmol/L Low 3.5-5.3 [facility] Comment on above: Performed By: #### 2 006287, 1557857, 7731513, 6971842, 83650841, 9164091, 5345283 #### [facility] [address] [place] [address] Sodium [Moles/Vol] 141 mmol/L Normal 135-145 [facility] Comment on above: Performed By: #### 2 627412, 5943591, 0270517, 2319879, 38953326, 3511354, 5087531 #### [facility] [address] [id number] CBC w/ Auto Diffon Erythrocyte distribution width (RBC) [Ratio] 13.6 % Normal 10.9-14.2 [facility] Comment on above: Performed By: #### 2 671447, 6127061, 2531078, 6325752, 60631712, 9043941, 2706135 #### [facility] [address] [place] [address] Hematocrit (Bld) [Volume fraction] 35.6 % Normal 34.0-46.0 [facility] Comment on above: Performed By: #### 2 487675, 6675618, 8734618, 1230678, 88555597, 5135756, 7593692 #### [facility] [address] [place] [address] Hemoglobin (Bld) [Mass/Vol] 12.5 g/dL Normal 12.0-16.0 [facility] Comment on above: Performed By: #### 2 873092, 7686694, 7154037, 0740074, 92381536, 6615143, 3790571 #### [facility] [address] [place] [address] MCH (RBC) [Entitic mass] 28.7 pg Normal 27.0-34.0 [facility] Comment on above: Performed By: #### 2 634242, 0119609, 6932392, 8413587, 10464701, 3076251, 0912042 #### [facility] [address] [place], [place] [id number] MCHC (RBC) [Mass/Vol] 35.1 g/dL Normal 31.4-36.0 [facility] Comment on above: Performed By: #### 2 359241, 2775174, 7586224, 1211881, 38499676, 3685424, 5623939 #### [facility] [address] [place], [place] [id number] MCV (RBC) [Entitic vol] 81.8 fL Normal 80.0-100.0 [facility] Comment on above: Performed By: #### 2 017764, 0598751, 4022335, 0243996, 74199917, 7143746, 6457562 #### [facility] [address] [place], [place] [id number] Platelet mean volume (Bld) [Entitic vol] 7.6 fL Normal 6.4-10.8 [facility] Comment on above: Performed By: #### 2 003747, 8086819, 8473439, 8843795, 34049367, 1352705, 3302265 #### [facility] [address] [place] [address] Platelets (Bld) [#/Vol] 262.0 E9/L Normal 150.0-500.0 [facility] Comment on above: Performed By: #### 2 168602, 5453150, 4169510, 3816703, 85325089, 7863063, 2614941 #### [facility] [address] [place] [address] RBC (Bld) [#/Vol] 4.4 E12/L Normal 4.3-5.9 [facility] Comment on above: Performed By: #### 2 020371, 3959497, 5594609, 1392082, 89842134, 9967518, 6092118 #### [facility] [address] [place] [address] WBC corrected for nucl RBC Auto (Bld) [#/Vol] 8.9 E9/L Normal 4.0-11.0 [facility] Comment on above: Performed By: #### 2 888675, 8271868, 9475137, 3656861, 90209336, 7997080, 3684169 #### [facility] [address] [place] [address] CHEMISTRYOrdered By: SYSTEM SYSTEM on 07-12-2022 Albumin [...] Normal >=59mL/min/1. 73 m2 FT Chem S Globulin (S) [Mass/Vol] 3.1 g/dL Normal 1.4 - 4.0 gm/dL FT Remisol Glucose [Mass/Vol] 108 mg/dL Normal 55 - 199 mg/dL [facility] Lipase [Catalytic activity/Vol] 35 U/L Normal 13 - 58 unit/L FT [facility] Potassium [Moles/Vol] 3.3 mmol/L Low 3.5 - 5.3 mmol/L FT Remisol Protein [Mass/Vol] 7.1 g/dL Normal 6.0 - 7.8 gm/dL [facility] Remisol Sodium [Moles/Vol] 141 mmol/L Normal 135 - 145 mmol/L FT Remisol Troponin I.cardiac [Mass/Vol] pg/mL Low 10.10 - 27.10 pg/mL FT [facility] Urea nitrogen [Mass/Vol] 9 mg/dL Normal 5 - 21 mg/dL FT [facility] Urea nitrogen/Creatinine [Mass ratio] 13 mg/mg Normal 10 - 20 [facility] Remisol Consent for Treatmenton 06-25 Consent for Treatment [id number] #1.00CD:[address] [facility] Discharge Instructionson Discharge Instructions [id number]#1.00CD:[address] [facility] ED Clinical Summaryon 2021 ED Clinical Summary (Inserted Image. Unable to display[address] [address] ED Clinical Summary Person Information Name: ROQUE PIERSON/Radha Age: 22 Years : 2000 Sex: Female Language: Qatari PCP: Delfin Urbano MD Marital Status: Single [...] 07/12/2022 05:07:15 07/12/2022 05:07:15 07/12/2022 05:07:15 ADDRESS: [address] [place] [id number] PHYS DOC NOTES: MEDICAL INFORMATION: Prescriptions Given: [...] PATIENT EDUCATION INFORMATION: Instructions: Abdominal Pain, Adult, Xzpu-il-Tvkh Follow up: With: Address: When: Delfin Urbano [facility], [address] [place] [phone] Business (1) In 3 days 07/15/2022 Comments: [...] worsening symptoms. DIAGNOSIS: Epigastric abdominal pain Normal [facility] ED Note-Physicianon 07-12-20 ED Note-Physician Basic Information Time Seen: Sissy Shah DO 07/12/2022 03:40 Chief Complaint Pt. 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 Normal [facility] Comment on above: Result Comment: Elec tronically Signed By: Sissy Shah DO.br\Date and Time Signed: 07/12/22 04:48 EST ED [...] these instructions at home: Medicines ? Take bule-vva-nrcsxyg and prescription medicines only as told by [...] belly pain for any changes. ? Take xnvc-mtf-yqpvvvq and prescription medicines only as told by [...] 01/27/2009 Document Revised: 12/20/2019 Document Reviewed: 12/20/2019 [employer] Patient Education ? [address] [facility] ED Patient Summaryon 022 ED Patient Summary [place] [id number] Patient Discharge Instructions Person Information Name: ROQUE PIERSON Age: 22 Years Arrival Date: 07/12/2022 03:36:47 Discharge Diagnosis: Epigastric abdominal pain Primary Care Physician: Delfin Urbano MD Provider Information Primary Provider: Sissy Shah DO Advanced Methods Study Analyst:None The exam and treatment you received in the Emergency Department were for an urgent problem and are not intended as complete care. It is important that you follow up with a doctor, nurse practitioner, or physician?s bindery library technical assistant for ongoing care. If your symptoms become [...] Instructions: With: Address: When: Delfin Urbano [address] [facility], [address] [place] [phone] Business (1) In 3 days 07/15/2022 Comments: [...] provider. Patient Education Materials: Abdominal Pain, Adult, Xzrf-el-Cahc A MESSAGE TO ALL PATIENTS REGARDING OPIOIDS PRESCRIPTION OPIOIDS: WHAT YOU NEED TO KNOW Prescription opioids can be used to help relieve jbnprqdo-sf-lhoyik pain and are often prescribed following a [...] toilet, fol (more content not included)... Normal [facility] HEMATOLOGYOrdered By: SYSTEM SYSTEM on 07-12-2022 Basophils/100 WBC (Bld) 0.6 % Normal 0.0 - 2.0 % [facility] [place] HemeAutoSS Basophils/Leukocytes Auto (Bld) [Pure # fraction] 0.1 E9/L Normal 0.0 - 0.2 E9/L [facility] HemeAutoSS Eosinophils/100 WBC (Bld) 5.6 % Normal 0.0 - 8.0 % [facility] HemeAutoSS Eosinophils/Leukocyte s Auto (Bld) [Pure # fraction] 0.5 E9/L Normal 0.0 - 0.5 E9/L [facility] HemeAutoSS Lymphocytes/100 WBC (Bld) 34.7 % Normal 14.0 - 50.0 % [facility] HemeAutoSS Lymphocytes/Leukocyte s Auto (Bld) [Pure # fraction] 3.1 E9/L Normal 1.0 - 4.0 E9/L [facility] HemeAutoSS Monocytes/100 WBC (Bld) 10.3 % Normal [...] Bilirubin.indirect [Mass or moles/Vol] UTC Abnormal 0.1-0.9 [facility] Comment on above: Result Comment: Resu lt verified by Discern Rule. Performed result UTC (Unable to Calculate) was sent as an Alpha code due the inability to calculate a valid numeric value. Performed By: #### 2 [id number], 8920942, 5160930, 5580954, 86213968, 8764376, 4380608 #### [facility] Laboratory [address] [place] [address] Albumin [Mass/Vol] 4.0 g/dL Normal 3.3-5.0 [facility] Comment on above: Performed By: #### 2 607151, 4004769, 0803494, 0031957, 65723411, 1210649, 4766816 #### [facility] [address] [place] [address] Albumin/Globulin (S) [Mass conc ratio] 1.3 Normal 1.1-2.2 [facility] Comment on above: Performed By: #### 2 902680, 0974026, 8507789, 6741164, 55332507, 4187224, 4769334 #### [facility] Laboratory [address] [place], [place] [id number] ALP [Catalytic activity/Vol] 59 Int._Unit/L Normal 21-98 [facility] Comment on above: Performed By: #### 2 965512, 5737097, 8214710, 1693553, 61938174, 5662020, 7148378 #### [facility] Laboratory [address] [place] [address] ALT No additional P-5'-P [Catalytic activity/Vol] 17 Int._Unit/L Normal 6-46 [facility] Comment on above: Performed By: #### 2 648141, 9327152, 3600427, 6811137, 30674161, 3770640, 6383272 #### [facility] [address] [place] [address] AST [Catalytic activity/Vol] 17 Int._Unit/L Normal 5-43 [facility] Comment on above: Performed By: #### 2 654745, 5050742, 5238212, 0147670, 16456827, 5934443, 0877155 #### [facility] [address] [place] [address] Bilirubin [Mass/Vol] 0.3 mg/dL Normal 0.0-1.1 [facility] Comment on above: Performed By: #### 2 280691, 7858616, 9400730, 0482725, 73618091, 4705736, 6426992 #### [facility] [address] [place] [address] Bilirubin.direct [Mass/Vol] mg/dL Normal 0.1-0.4 [facility] Comment on above: Performed By: #### 2 597608, 7728612, 6284807, 3616478, 64205413, 6937241, 7203630 #### [facility] [address] [place] [address] Globulin (S) [Mass/Vol] 3.1 g/dL Normal 1.4-4.0 [facility] Comment on above: Performed By: #### 2 996699, 3701517, 7912653, 4035970, 85735393, 6854789, 3053293 #### [facility] [address] [place] [address] Protein [Mass/Vol] 7.1 g/dL Normal 6.0-7.8 [facility] Comment on above: Performed By: #### 2 227475, 1688980, 0071902, 0798827, 23754869, 9182018, 4064886 #### [facility] [address] [place] [address] Lipase Levelon 07-12-2022 Lipase [Catalytic activity/Vol] 35 U/L Normal 13-58 [facility] Comment on above: Performed By: #### 2 154446, 7766608, 2169011, 1102100, 55635032, 2406013, 4788385 #### [facility] [address] [place] [address] SEROLOGYOrdered By: Mignon Gupta on 07-12-2022 Beta hCG Ql Negative (07/12/22 4:02 AM) Normal [facility] [place] Man Sero Troponin 0 Hr.on 07-12-2022 Troponin I.cardiac [Mass/Vol] ng/mL Low 10.10-27.10 [facility] Comment on above: Result Comment: The 95% CI (Confidence Interval) PPV (Positive Predictive Value) for myocardial infarction in females is 38 pg/mL, in males 51 pg/mL. The results should be used in conjunction with clinical conditions of myocardial infarction. (Access High Sensitivity Troponin I Instructions For Use, View3, March 2018) Performed By: #### 2 693074, 3616565, 7678906, 0463071, 14429951, 2753389, 9003019 #### [facility] [address] [place] [address] XR Chest Single Viewon 07-12 XR Chest [...] Romie Hanson M.D. Transcribed by: KG Technologist: [place] Normal [facility] eGFRon 07-12-2022 GFR/1.73 sq M.predicted among blacks MDRD (S/P/Bld) [Vol rate/Area] mL/min/{1.73_m2} Normal >=59 [facility] Comment on above: Order Comment: Order added by Discern Expert. Result Comment: eGFR is race adjusted. AA=. Performed By: #### 2 161066, 3285326, 5450687, 8645750, 18208471, 7299725, 1348125 #### [facility] Laboratory [address] [place] [address] GFR/1.73 sq M.predicted among non-blacks MDRD (S/P/Bld) [Vol rate/Area] mL/min/{1.73_m2} Normal >=59 [facility] Comment on above: Order Comment: Order added by Discern Expert. Result Comment: Foam Rubber Fabricator emil kidney disease could be indicated at eGFR's of less than 60 mL/min/1.73m2. Kidney failure is indicated at less than 15 mL/min/1.73m2. Performed By: #### 2 806960, 0521632, 1745089, 6596414, 08986845, 4025075, 2087059 #### [facility] [address] [place] [address] CBC with Auto Differentialon 04-18-2022 Absolute Eos # 0.20 [facility] Absolute Lymph # 1.60 [facility] Absolute Chicot # 0.60 [facility] Basophils (Bld) [#/Vol] 0.00 10*3/uL [facility] Basophils/100 WBC (Bld) 0 % 0 - 2 % [facility] Differential Type YES [facility] Eosinophils/100 WBC (Bld) 2 % 0 - 5 % [facility] Hematocrit (Bld) [Volume fraction] 38.2 % 36 - 46 % [facility] Hemoglobin (Bld) [Mass/Vol] 12.7 g/dL 12 - 16 g/dL [facility] Interpretation and review of laboratory results Abnormal [facility] Lymphocytes/100 WBC (Bld) 16 % 15 - 40 % [facility] MCH (RBC) [Entitic mass] 28.1 pg 26 - 34 pg [facility] MCHC (RBC) [Mass/Vol] 33.2 g/dL 31 - 37 g/dL [facility] MCV (RBC) [Entitic vol] 84.6 fL 80 - 100 fL [facility] Monocytes/100 WBC (Bld) 6 % 4 - 8 % [facility] Platelet distribution width (Bld) [Ratio] 13.3 % 12.1 - 15.2 % [facility] Platelets (Bld) [#/Vol] 294 10*3/uL [facility] RBC (Bld) [#/Vol] 4.52 10*6/uL 4 - 5.2 m/uL [facility] Segmented neutrophils/100 WBC (Bld) 76 % High 47 - 75 % [facility] Segs Absolute 7.60 High [facility] WBC (Bld) [#/Vol] 10.0 10*3/uL [facility] CBC with Diffon 04-18-2022 Abs. Basophil 0.00 k/uL Normal 0.0-0.2 [facility] Comment on above: Performed By: #### C DP, HCG, CP #### [facility] [address] [place] [address] Farm Truck Driver: Alfred Chirinos MD Abs.Neutrophil (Seg) 7.60 k/uL High 2.5-7.0 [facility] Comment on above: Performed By: #### C DP, HCG, CP #### [facility] [address] [place] [address] Farm Truck Driver: Alfred Chirinos MD Auto Diff Performed YES Normal [facility] Comment on above: Performed By: #### C DP, HCG, CP #### [facility] [address] [place] [phone] Farm Truck Driver: Alfred Chirinos MD Basophils/100 WBC (Bld) 0 % Normal 0-2 [facility] Comment on above: Performed By: #### C DP, HCG, CP #### [facility] [address] [place] [phone] Farm Truck Driver: Alfred Chirinos MD Eosinophils (Bld) [#/Vol] 0.20 10*3/uL Normal 0.0-0.4 [facility] Comment on above: Performed By: #### C DP, HCG, CP #### [facility] [address] [place] [phone] Farm Truck Driver: Alfred Chirinos MD Eosinophils/100 WBC (Bld) 2 % Normal 0-5 [facility] Comment on above: Performed By: #### C DP, HCG, CP #### [facility] [address] [place] [address] Farm Truck Driver: Alfred Chirinos MD Erythrocyte distribution width (RBC) [Ratio] 13.3 % Normal 12.1-15.2 [facility] Comment on above: Performed By: #### C DP, HCG, CP #### [facility] [address] [place] [phone] Farm Truck Driver: Alfred Chirinos MD Hematocrit (Bld) [Volume fraction] 38.2 % Normal 36-46 [facility] Comment on above: Performed By: #### C DP, HCG, CP #### [facility] [address] [place] [phone] Farm Truck Driver: Alfred Chirinos MD Hemoglobin (Bld) [Mass/Vol] 12.7 g/dL Normal 12.0-16.0 [facility] Comment on above: Performed By: #### C DP, HCG, CP #### [facility] [address] [place] [address] Farm Truck Driver: Alfred Chirinos MD Lymphocytes (Bld) [#/Vol] 1.60 10*3/uL Normal 1.2-5.2 [facility] Comment on above: Performed By: #### C DP, HCG, CP #### [facility] [address] [place] [address] Farm Truck Driver: Alfred Chirinos MD Lymphocytes/100 WBC (Bld) 16 % Normal 15-40 [facility] Comment on above: Performed By: #### C DP, HCG, CP #### [facility] [address] [place] [address] Farm Truck Driver: Alfred Chirinos MD MCH (RBC) [Entitic mass] 28.1 pg Normal 26-34 [facility] Comment on above: Performed By: #### C DP, HCG, CP #### [facility] [address] [place], [place] [phone] Farm Truck Driver: Alfred Chirinos MD MCHC (RBC) [Mass/Vol] 33.2 g/dL Normal 31-37 [facility] Comment on above: Performed By: #### C DP, HCG, CP #### [facility] [address] [place], [place] [phone] ([phone]) Farm Truck Driver: Aflred Chirinos MD MCV (RBC) [Entitic vol] 84.6 fL Normal 80-100 [facility] Comment on above: Performed By: #### C DP, HCG, CP #### [facility] [address] [place] [address] Farm Truck Driver: Alfred Chirinos MD Monocytes (Bld) [#/Vol] 0.60 10*3/uL Normal 0.0-1.0 [facility] Comment on above: Performed By: #### C DP, HCG, CP #### [facility] [address] [place], [place] [phone] Farm Truck Driver: Alfred Chirinos MD Monocytes/100 WBC (Bld) 6 % Normal 4-8 [facility] Comment on above: Performed By: #### C DP, HCG, CP #### [facility] [address] [place], [place] [phone] Farm Truck Driver: Alfred Chirinos MD Neutrophil (Seg) 76 % High 47-75 [facility] Comment on above: Performed By: #### C DP, HCG, CP #### [facility] [address] [place], [place] [phone] Farm Truck Driver: Alfred Chirinos MD Platelets (Bld) [#/Vol] 294 10*3/uL Normal 140-450 [facility] Comment on above: Performed By: #### C DP, HCG, CP #### [facility] [address] [place], [place] [phone] Farm Truck Driver: Alfred Chirinos MD RBC (Bld) [#/Vol] 4.52 10*6/uL Normal 4.0-5.2 [facility] Comment on above: Performed By: #### C DP, HCG, CP #### [facility] [address] [place], [place] [phone] Farm Truck Driver: Alfred Chirinos MD WBC (Bld) [#/Vol] 10.0 10*3/uL Normal 4.5-13.5 [facility] Comment on above: Performed By: #### C DP, HCG, CP #### [facility] [address] [place] [address] Farm Truck Driver: Alfred Chirinos MD [facility] 04-18-2022 Albumin [Mass/Vol] 4.4 g/dL 3.5 - 5.2 g/dL [facility] ALP (Bld) [Catalytic activity/Vol] 93 U/L 35 - 104 U/L [facility] ALT [Catalytic activity/Vol] 17 U/L 5 - 33 U/L [facility] Anion gap [Moles/Vol] 8 mmol/L Low 9 - 17 mmol/L [facility] AST [Catalytic activity/Vol] 17 U/L NINF - 32 U/L [facility] Bilirubin [Mass/Vol] 0.20 mg/dL Low 0.3 - 1 .2 mg/dL [facility] Calcium [Mass/Vol] 9.5 mg/dL 8.6 - 10. 4 mg/dL [facility] Chloride [Moles/Vol] 106 mmol/L 98 - 10 7 mmol/L [facility] CO2 [Moles/Vol] 26 mmol/L 20 - 31 mmol/L [facility] Creatinine [Mass/Vol] 0.66 mg/dL 0.5 - 0.9 mg/dL [facility] Free PSA/Total PSA [Mass fraction] 6.9 g/dL 6.4 - 8.3 g/dL [facility] GFR >60 60 - PI NF mL/min [facility] GFR Non- >60 60 - PINF mL/min [facility] GFR/1.73 sq M.predicted MDRD (S/P/Bld) [Vol rate/Area] [facility] Comment on above: Average GFR for 20-2 9 years old: 116 mL/min/1.73sq m Chronic Kidney Disease: <60 mL/min/1.73sq m Kidney failure: <15 mL/min/1.73sq m eGFR calculated using average adult body mass. Additional eGFR calculator available at: http://www.[employer]/multiple_crcl_2012.htm Glucose [Mass/Vol] 108 mg/dL High 70 - 99 mg/dL [facility] Interpretation and review of laboratory results Abnormal [facility] Potassium [Moles/Vol] 3.6 mmol/L Low 3.7 - 5.3 mmol/L [facility] Sodium [Moles/Vol] 140 mmol/L 135 - 144 mmol/L [facility] Urea nitrogen (BldV) [Mass/Vol] 5 mg/dL Low 6 - 20 mg/dL [facility] Urea nitrogen/Creatinine (Bld) [Mass ratio] 8 Low 9 - 20 [facility] Comp Metabolic Profon 2021 (cont.) Normal [facility] Comment on above: Result Comment: Aver age GFR for 20-29 years old: 116 mL/min/1.73sq m Chronic Kidney Disease: <60 mL/min/1.73sq m Kidney failure: <15 mL/min/1.73sq m eGFR calculated using average adult body mass. Additional eGFR calculator available at: http://www.[employer]/multiple_crcl_2011.htm Performed By: #### C DPLINDA, CP #### [facility] [address] [place] [address] Farm Truck Driver: Alfred Chirinos MD Albumin [Mass/Vol] 4.4 g/dL Normal 3.5-5.2 [facility] Comment on above: Performed By: #### C DP, HCG, CP #### [facility] [address] [place] [address] Farm Truck Driver: Alfred Chirinos MD Alkaline Phos 93 U/L Normal 35-104 [facility] Comment on above: Performed By: #### C DP, HCG, CP #### [facility] [address] [place] [address] Farm Truck Driver: Alfred Chirinos MD ALT [Catalytic activity/Vol] 17 U/L Normal 5-33 [facility] Comment on above: Performed By: #### C DP, HCG, CP #### [facility] [address] [place] [address] Farm Truck Driver: Alfred Chirinos MD Anion gap [Moles/Vol] 8 mmol/L Low 9-17 [facility] Comment on above: Performed By: #### C DP, HCG, CP #### [facility] [address] [place] [address] Farm Truck Driver: Alfred Chirinos MD AST [Catalytic activity/Vol] 17 U/L Normal <32 [facility] Comment on above: Performed By: #### C DP, HCG, CP #### [facility] [address] [place] [address] Farm Truck Driver: Alfred Chirinos MD Bilirubin [Mass/Vol] 0.20 mg/dL Low 0.30-1.20 [facility] Comment on above: Performed By: #### C DP, HCG, CP #### [facility] [address] [place] [address] Farm Truck Driver: Alfred Chirinos MD BUN/CRE Ratio 8 Low 9-20 [facility] Comment on above: Performed By: #### C DP, HCG, CP #### [facility] [address] [place] [address] Farm Truck Driver: Alfred Chirinos MD Calcium [Mass/Vol] 9.5 mg/dL Normal 8.6-10.4 [facility] Comment on above: Performed By: #### C DP, HCG, CP #### [facility] [address] [place] [address] Farm Truck Driver: Alfred Chirinos MD Chloride [Moles/Vol] 106 mmol/L Normal 98-107 [facility] Comment on above: Performed By: #### C DP, HCG, CP #### [facility] [address] [place] [address] Farm Truck Driver: Alfred Chirinos MD CO2 [Moles/Vol] 26 mmol/L Normal 20-31 [facility] Comment on above: Performed By: #### C DP, HCG, CP #### [facility] [address] [place] [address] Farm Truck Driver: Alfred Chirinos MD Creatinine [Mass/Vol] 0.66 mg/dL Normal 0.50-0.90 [facility] Comment on above: Performed By: #### C DP, HCG, CP #### [facility] [address] [place], [place] [phone] Farm Truck Driver: Alfred Chirinos MD GFR, Amer >60 Normal >60 [facility] Comment on above: Performed By: #### C DP, HCG, CP #### [facility] [address] [place] [address] Farm Truck Driver: Alfred Chirinos MD GFR,non Amer >60 Normal >60 [facility] Comment on above: Performed By: #### C DP, HCG, CP #### [facility] [address] [place] [address] Farm Truck Driver: Alfred Chirinos MD Glucose [Mass/Vol] 108 mg/dL High 70-99 [facility] Comment on above: Performed By: #### C DP, HCG, CP #### [facility] [address] [place], [place] [phone] Farm Truck Driver: Alfred Chirinos MD Potassium [Moles/Vol] 3.6 mmol/L Low 3.7-5.3 [facility] Comment on above: Performed By: #### C DP, HCG, CP #### [facility] [address] [place], [place] [phone] Farm Truck Driver: Alfred Chirinos MD Protein [Mass/Vol] 6.9 g/dL Normal 6.4-8.3 [facility] Comment on above: Performed By: #### C DP, HCG, CP #### [facility] [address] [place] [address] Farm Truck Driver: Alfred Chirinos MD Sodium [Moles/Vol] 140 mmol/L Normal 135-144 [facility] Comment on above: Performed By: #### C DP, HCG, CP #### [facility] [address] [place] [address] Farm Truck Driver: Alfred Chirinos MD Urea nitrogen [Mass/Vol] 5 mg/dL Low 6-20 [facility] Comment on above: Performed By: #### C DP, HCG, CP #### [facility] [address] [place] [address] Farm Truck Driver: Alfred Chirinos MD HCG Qualitative, Serumon hCG Qual Negative NEGATIVE [facility] Comment on above: Specimens with hCG l evels near the threshold of the test (25 mIU/mL) may give a negative or indeterminate result. In such cases, another test should be performed with a new specimen in 48-72 hours. If early is suspected clinically in this setting, correlation with quantitative serum b-hCG level is suggested. [employer] has confirmed the use of plasma for this test. This has not been cleared or approved by the U.S. Food and Drug Administration. The FDA has determined that such clearance is not necessary. [facility] HCG Screen, Bloodon 04-18-20 HCG Screen, Blood Negative Normal [facility] Comment on above: Result Comment: Spec imens with hCG levels near the threshold of the test (25 mIU/mL) may give a negative or indeterminate result. In such cases, another test should be performed with a new specimen in 48-72 hours. If early is suspected clinically in this setting, correlation with quantitative serum b-hCG level is suggested. [facility] has confirmed the use of plasma for this test. This has not been cleared or approved by the U.S. Food and Drug Administration. The FDA has determined that such clearance is not necessary. Performed By: #### C DP, HCG, CP #### [facility] [address] [place] [address] Farm Truck Driver: Alfred Chirinos MD Microscopic Urinalysison - [facility] Epithelial Cells UA 0 TO 2 /HPF [facility] RBC, UA 2 TO 5 [facility] WBC, UA NONE SEEN 0 /HPF [facility] Urinalysison 04-18-2022 Bilirubin Urine Negative NEGATIVE [facility] Color, UA Yellow Yellow [facility] Glucose, Ur Negative NEGATIVE [facility] Interpretation and review of laboratory results Abnormal [facility] Ketones Ql (U) Negative NEGATIVE [facility] Leukocyte esterase Test strip Ql (U) Negative NEGATIVE [facility] Nitrite, Urine Negative NEGATIVE [facility] pH, UA 8.0 5 - 8 [facility] Protein, UA Negative NEGATIVE [facility] Specific [place], UA 1.015 1.005 - 1.03 [facility] Turbidity UA Clear Clear [facility] Urinalysis Comments [facility] Urine Hgb 2+ Abnormal NEGATIVE [facility] Urobilinogen, Urine Normal Normal [facility] Urinalysis, Routineon 2021 Bilirubin, SemiQt,Ur Negative Normal NEG [facility] Comment on above: Performed By: #### B HCG #### [facility] [address] [place] [address] [employer] Driver: Alfred Chirinos MD Blood, Urine 2+ Abnormal NEG [facility] Comment on above: Performed By: #### B HCG #### [facility] [address] [place], [place] [id number] [employer] Driver: Alfred Chirinos MD Clarity (U) Clear Normal CLEAR [facility] Comment on above: Performed By: #### B HCG #### [facility] [address] [place] [address] [employer] Driver: Alfred Chirinos MD Color (U) Yellow Normal YEL [facility] Comment on above: Performed By: #### B HCG #### [facility] [address] [place] [address] [employer] Driver: Alfred Chirinos MD Comment Normal [facility] Comment on above: Performed By: #### B HCG #### [facility] [address] [place], [place] [id number] [employer] Driver: Alfred Chirinos MD Glucose Ql (U) Negative Normal NEG [facility] Comment on above: Performed By: #### B HCG #### [facility] [address] [place], [place] [id number] [employer] Driver: Alfred Chirinos MD Ketones Ql (U) Negative Normal NEG [facility] Comment on above: Performed By: #### B HCG #### [facility] [address] [place], [place] [id number] [employer] Driver: Alfred Chirinos MD Leukocyte esterase Test strip Ql (U) Negative Normal NEG [facility] Comment on above: Performed By: #### B HCG #### [facility] [address] [place], [place] [id number] [employer] Driver: Alfred Chirinos MD Nitrite,Ur Negative Normal NEG [facility] Comment on above: Performed By: #### B HCG #### [facility] [address] [place], [place] [id number] [employer] Driver: Alfred Chirinos MD PH,Ur 8.0 Normal 5.0-8.0 [facility] Comment on above: Performed By: #### B HCG #### [facility] [address] [place], [place] [id number] [employer] Driver: Alfred Chirinos MD Protein Ql (U) Negative Normal NEG [facility] Comment on above: Performed By: #### B HCG #### [facility] [address] [place], [place] [id number] [employer] Driver: Alfred Chirinos MD Spec. [place],Ur 1.015 Normal 1.005-1.030 [facility] Comment on above: Performed By: #### B HCG #### [facility] [address] [place], [place] [id number] [employer] Driver: Alfred Chirinos MD Urobilinogen,Ur Normal Normal NORM [facility] Comment on above: Performed By: #### B HCG #### [facility] [address] [place] [address] [employer] Truck Driver: Alfred Chirinos MD Urinalysis,Microon 2 ----- Normal [facility] Comment on above: Performed By: #### B HCG #### [facility] [address] [place] [address] [employer] Driver: Alfred Chirinos MD Epithelial cells LM Ql (Urine sed) 0 TO 2 Normal [facility] Comment on above: Performed By: #### B HCG #### [facility] [address] [place], [place] [id number] [employer] Driver: Alfred Chirinos MD Urine RBC's 2 TO 5 Normal 0-2 [facility] Comment on above: Performed By: #### B HCG #### [facility] [address] [place] [address] [employer] Truck Driver: Alfred Chirinos MD Urine WBC's NONE SEEN Normal 0 [facility] Comment on above: Performed By: #### B HCG #### [facility] [address] [place] [address] [employer] Driver: Alfred Chirinos MD PAP ACOG PANEL 2: 21 to 29on 04-13-2022 . . Normal [facility] Comment on above: Performed By: #### [id number] #### [facility] [address] [place] [address] Dr. Tasha Whalen Age Gdln ACOG Testing Comment Normal [facility] Comment on above: Result Comment: <21 or >65 or no age provided Performed By: #### [id number] #### [facility] [address] [place] [address] Dr. Tasha Whalen DIAGNOSIS: Comment [facility] Comment on above: Result Comment: NEGA TIVE FOR INTRAEPITHELIAL LESION OR MALIGNANCY. Performed By: #### [id number] #### [facility] [address] [place] [address] Dr. Tasha Whalen Methodology: Comment [facility] Comment on above: Result Comment: This liquid based ThinPrep(R) pap test was screened with the use of an image guided system. Performed By: #### [id number] #### [facility] [address] [place] [address] Dr. Tahsa Whalen Note: Comment [facility] Comment on above: Result Comment: The Pap smear is a screening test designed to aid in the detection of premalignant and malignant conditions of the uterine cervix. It is not a diagnostic procedure and should not be used as the sole means of detecting cervical cancer. Both false-positive and false-negative reports do occur. . Performed By: #### [id number] #### [facility] [address] [place] [address] Dr. Tasha Whalen Performed by: Comment Normal [facility] Comment on above: Result Comment: Nancy Wooten Milk Processing Worker (ASCP) Performed By: #### [id number] #### [facility] [address] [place] [address] Dr. Tasha Whalen Specimen adequacy: Comment Normal [facility] Comment on above: Result Comment: Sati sfactory for evaluation. Endocervical and/or squamous metaplastic cells (endocervical component) are present. Performed By: #### [id number] #### [facility] [address] [place] [address] Dr. Tasha Whalen CHLAMYDIA/GONOCOCCUS CATRINA (SW AB/URINE/PAPon 04-12-2022 Chlamydia trachomatis, CATRINA Negative Normal Negative [facility] Comment on above: Performed By: #### C T/NGNA #### [facility] [address] [place] [address] Dr. Tasha Whalen Neisseria gonorrhoeae, CATRINA Negative Normal Negative [facility] Comment on above: Performed By: #### C T/NGNA #### [facility] [address] [place] [address] Dr. Tasha Whalen VAGINITIS/VAGINOSIS DNA PROB Dell 04-11-2022 Dylan species Negative Normal Negative [facility] Comment on above: Performed By: #### V AGINT #### [facility] [address] [place] [address] Dr. Tasha Whalen Gardnerella vaginalis Negative Normal Negative [facility] Comment on above: Performed By: #### V AGINT #### [facility] [address] [place] [address] Dr. Tasha Whalen Trichomonas vaginalis Negative Normal Negative [facility] Comment on above: Performed By: #### V AGINT #### [facility] [address] [place] [address] Dr. Tasha Whalen PREG QUANT HCGon 02-15-2022 HCG QUANT <1 Normal [facility] Comment on above: Performed By: #### P REGQNT #### [facility] [address] [place] [address] Dr. Tasha Whalen HCG RANGE SEE BELOW Normal [facility] Comment on above: Result Comment: 5-50 0-1 WEEK 40-300 1-2 WEEKS 100-1,000 2-3 WEEKS 500-6,000 3-4 WEEKS 5,000-200,000 1-2 MONTHS 10,000-100,000 2-3 MONTHS 3,000-50,000 2ND TRIMESTER 1,000-50,000 3RD TRIMESTER Performed By: #### P REGQNT #### [facility] [address] [place] [address] Dr. Tasha Whalen Vital Signs Date Time Vital Sign Value Performing Clinician Hue najera 09-08-2023 11:05-0500 Body temperature 98.78 [degF] Fercho Jaime [facility] 09-08-2023 11:05-0500 Diastolic blood pressure 82 mm[Hg] Fercho Addison [facility] 09-08-2023 11:05-0500 Heart rate 95 /min Fercho Jaime [facility] 09-08-2023 11:05-0500 Respiratory rate 16 /min Fercho Addison [facility] 09-08-2023 11:05-0500 SaO2% (BldA) [Mass fraction] 98 % Fercho Addison [facility] 09-08-2023 11:05-0500 Systolic blood pressure 131 mm[Hg] Fercho Addison [facility] 06-05-2023 18:36-0400 Diastolic blood pressure 58 mm[Hg] Fercho Addison [facility] 06-05-2023 18:36-0400 Heart rate 90 /min Fercho Addison [facility] 06-05-2023 18:36-0400 Mean blood pressure 73 mm[Hg] Fercho Addison [facility] 06-05-2023 18:36-0400 Respiratory rate 16 /min Fercho Jaime [facility] 06-05-2023 18:36-0400 SaO2% (BldA) [Mass fraction] 99 % Fercho Addison [facility] 06-05-2023 18:36-0400 Systolic blood pressure 104 mm[Hg] Fercho Addison [facility] 06-05-2023 18:23-0400 Diastolic blood pressure 52 mm[Hg] Fercho Addison [facility] 06-05-2023 18:23-0400 Heart rate 82 /min Fercho Addison [facility] 06-05-2023 18:23-0400 Mean blood pressure 66 mm[Hg] Fercho Addison [facility] 06-05-2023 18:23-0400 Respiratory rate 14 /min Fercho Addison [facility] 06-05-2023 18:23-0400 SaO2% (BldA) [Mass fraction] 98 % Fercho Addison [facility] 06-05-2023 18:23-0400 Systolic blood pressure 94 mm[Hg] Fercho Addison [facility] 06-05-2023 17:31-0400 Diastolic blood pressure 60 mm[Hg] Fercho Addison [facility] 06-05-2023 17:31-0400 Heart rate 89 /min Fercho Addison [facility] 06-05-2023 17:31-0400 Mean blood pressure 71 mm[Hg] Fercho Addison [facility] 06-05-2023 17:31-0400 Respiratory rate 16 /min Fercho Addison [facility] 06-05-2023 17:31-0400 SaO2% (BldA) [Mass fraction] 98 % Fercho Addison [facility] 06-05-2023 17:31-0400 Systolic blood pressure 93 mm[Hg] Fercho Jaime [facility] 06-05-2023 15:48-0400 Body temperature 98.42 [degF] Fercho Jaime [facility] 06-05-2023 15:48-0400 Heart rate 97 /min Fercho Jaime [facility] 12-07-2022 03:06-0400 Body weight 72.1224 kg NOE CHRISTY . [facility] Comment on above: Performed By: #### AFPMAT #### [facility] [address] [place] [address] Dr. Tasha Whalen 11-25-2022 22:27-0400 Hourly Rounding Shawn Wilson [facility] Comment on above: Result Comment: pt. discharged off unit, ambulatory; RN offers to assist to ER entrance; pt. denies 11-25-2022 22:20-0400 Hourly Rounding Shawn Wilson [facility] Comment on above: Result Comment: discharge papers given, education provided about belly band, follow up with primary provider in 2-3 days, and taking Tylenol for pain management as needed; questions answered; papers signed; pt. to get up and get dressed, no grimace or physical symptoms of pain noted in patient while moving 11-25-2022 22:10-0400 Hourly Rounding Shawn Wilson [facility] Comment on above: Result Comment: RN checks in on patient following medication administration; pt. verbalizes that medication helped and belly band is helping; RN answers question about UA results with patient; no physical signs of pain noted in pt. at this time, no grimace; RN to d/c pt. per physician order 11-25-2022 22:10-0400 Promise to Return Shawn Wilson [facility] 11-25-2022 21:24-0400 Promise to Return Shawn Wilson [facility] 11-25-2022 20:47-0400 Blood Pressure Location Shawn Wilson [facility] 11-25-2022 20:47-0400 Body temperature 98.24 [degF] Shawn Littleten [facility] 11-25-2022 20:47-0400 Diastolic blood pressure 56 mm[Hg] Shawn Littleten [facility] 11-25-2022 20:47-0400 Heart rate 74 /min Shawn Littleten [facility] 11-25-2022 20:47-0400 Mean blood pressure 73 mm[Hg] Shawn Littleten [facility] 11-25-2022 20:47-0400 Promise to Return Shawn Wilson [facility] 11-25-2022 20:47-0400 Respiratory rate 16 /min Shawn Wilson [facility] 11-25-2022 20:47-0400 Systolic blood pressure 108 mm[Hg] Shawn Wilson [facility] 11-25-2022 18:45-0400 Blood Pressure Location Shawn Littleten [facility] 11-25-2022 18:45-0400 Body temperature 97.52 [degF] Shawn Littleten [facility] 11-25-2022 18:45-0400 Diastolic blood pressure 59 mm[Hg] Shawn Littleten [facility] 11-25-2022 18:45-0400 Heart rate 79 /min Shawn Littleten [facility] 11-25-2022 18:45-0400 Mean blood pressure 76 mm[Hg] Shawn Wilson [facility] 11-25-2022 18:45-0400 Respiratory rate 18 /min Shawn Wilson [facility] 11-25-2022 18:45-0400 Systolic blood pressure 110 mm[Hg] Shawn Wilson [facility] 09-30-2022 08:59-0500 Body height 175.3 cm Morgan Falk DO Work Phone: [employer] 09-30-2022 08:59-0500 Body mass index (BMI) [Ratio] 23.63 kg/m2 Morgan Falk DO Work Phone: [facility] [employer] 09-30-2022 08:59-0500 Body temperature 98.1 [degF] Morgan Falk DO Work Phone: [employer] 09-30-2022 08:59-0500 Body weight 72.58 kg Morgan Falk DO Work Phone: [employer] 09-30-2022 08:59-0500 Diastolic blood pressure 64 mm[Hg] Morgan Falk DO Work Phone: [employer] 09-30-2022 08:59-0500 Heart rate 78 /min Morgan Falk DO Work Phone: [employer] 09-30-2022 08:59-0500 Respiratory rate 20 /min Morgan Falk DO Work Phone: [employer] 09-30-2022 08:59-0500 SaO2% (BldA) [Mass fraction] 98 % Morgan Falk DO Work Phone: [facility] [employer] 09-30-2022 08:59-0500 Systolic blood pressure 112 mm[Hg] Morgan Falk DO Work Phone: [employer] 09-26-2022 13:23-0500 Body height 172.7 cm Nguyen Cha MD Work Phone: [employer] 09-26-2022 13:23-0500 Body mass index (BMI) [Ratio] 24.4 kg/m2 Nguyen Cha MD Work Phone: [employer] 09-26-2022 13:23-0500 Body temperature 98.01 [degF] Nguyen Cha MD Work Phone: [employer] 09-26-2022 13:23-0500 Body weight 72.8 kg Nguyen Cha MD Work Phone: [employer] 09-26-2022 13:23-0500 Diastolic blood pressure 69 mm[Hg] Nguyen Cha MD Work Phone: [employer] 09-26-2022 13:23-0500 Heart rate 82 /min Nguyen Cha MD Work Phone: [employer] 09-26-2022 13:23-0500 Respiratory rate 18 /min Nguyen Cha MD Work Phone: [employer] 09-26-2022 13:23-0500 SaO2% (BldA) [Mass fraction] 100 % Nguyen Cha MD Work Phone: [employer] 09-26-2022 13:23-0500 Systolic blood pressure 111 mm[Hg] Nguyen Cha MD Work Phone: [employer] 09-04-2022 20:05-0500 Body height 172.7 cm Tyron Guevara MD Work Phone: [employer] 09-04-2022 20:05-0500 Body mass index (BMI) [Ratio] 24.89 kg/m2 Tyron Guevara MD Work Phone: [employer] 09-04-2022 20:05-0500 Body temperature 99.9 [degF] Tyron Guevara MD Work Phone: [employer] 09-04-2022 20:05-0500 Body weight 74.25 kg Tyron Guevara MD Work Phone: [facility] 09-04-2022 20:05-0500 Diastolic blood pressure 72 mm[Hg] Tyron Guevara MD Work Phone: [facility] 09-04-2022 20:05-0500 Heart rate 74 /min Tyron Guevara MD Work Phone: [facility] 09-04-2022 20:05-0500 Respiratory rate 18 /min Tyron Guevara MD Work Phone: [facility] 09-04-2022 20:05-0500 SaO2% (BldA) [Mass fraction] 98 % Tyron Guevara MD Work Phone: [facility] 09-04-2022 20:05-0500 Systolic blood pressure 111 mm[Hg] Tyron Guevara MD Work Phone: [facility] 08-29-2022 01:32-0500 Hourly Rounding [facility] 08-29-2022 01:32-0500 Promise to Return [facility] 08-29-2022 00:48-0500 Hour[facility] 08-29-2022 00:48-0500 Promise [facility] Return [facility] 08-29-2022 00:17-0500 Diastolic blood pressure 51 mm[Hg] [facility] 08-29-2022 00:17-0500 Heart rate 72 /min [facility] 08-29-2022 00:17-0500 Mean blood pressure 69 mm[Hg] [facility] 08-29-2022 00:17-0500 Respiratory rate 16 /min [facility] 08-29-2022 00:17-0500 SaO2% (BldA) [Mass fraction] 99 % [facility] 08-29-2022 00:17-0500 Systolic blood pressure 105 mm[Hg] [facility] 08-28-2022 23:35-0500 Diastolic blood pressure 53 mm[Hg] [facility] 08-28-2022 23:35-0500 Heart rate 65 /min [facility] 08-28-2022 23:35-0500 Mean blood pressure 68 mm[Hg] [facility] 08-28-2022 23:35-0500 Respiratory rate 18 /min [facility] 08-28-2022 23:35-0500 SaO2% (BldA) [Mass fraction] 100 % [facility] 08-28-2022 23:35-0500 Systolic blood pressure 97 mm[Hg] [facility] 08-28-2022 23:30-0500 Hourly Rounding [facility] 08-28-2022 23:30-0500 Promise to Return [facility] 08-28-2022 22:45-0500 Diastolic blood pressure 55 mm[Hg] [facility] 08-28-2022 22:45-0500 Heart rate 62 /min [facility] 08-28-2022 22:45-0500 Mean blood pressure 69 mm[Hg] [facility] 08-28-2022 22:45-0500 Respiratory rate 20 /min [facility] 08-28-2022 22:45-0500 SaO2% (BldA) [Mass fraction] 93 % [facility] 08-28-2022 22:45-0500 Systolic blood pressure 98 mm[Hg] [facility] 08-28-2022 21:31-0500 Body temperature 97.88 [degF] [facility] 08-28-2022 21:31-0500 Heart rate 78 /min [facility] 08-26-2022 11:02-0500 Body temperature 98.6 [degF] Kei Moore [facility] 08-26-2022 11:02-0500 Diastolic blood pressure 70 mm[Hg] Kei Moore [facility] 08-26-2022 11:02-0500 Heart rate 66 /min Kei Moore [facility] 08-26-2022 11:02-0500 Respiratory rate 16 /min Kei Moore [facility] 08-26-2022 11:02-0500 SaO2% (BldA) [Mass fraction] 96 % Kei Moore [facility] 08-26-2022 11:02-0500 Systolic blood pressure 115 mm[Hg] Kei Moore [facility] 08-24-2022 01:01-0500 Body height 172.7 cm Andrea Mitchell MD Work Phone: [facility] 08-24-2022 01:01-0500 Body mass index (BMI) [Ratio] 25.51 kg/m2 Andrea Mitchell MD Work Phone: [facility] 08-24-2022 01:01-0500 Body temperature 98.1 [degF] Andrea Mitchell MD Work Phone: [facility] 08-24-2022 01:01-0500 Body weight 76.11 kg Andrea Mitchell MD Work Phone: [facility] 08-24-2022 01:01-0500 Diastolic blood pressure 74 mm[Hg] Andrea Mitchell MD Work Phone: [facility] 08-24-2022 01:01-0500 Heart rate 82 /min Andrea Mitchell MD Work Phone: [facility] [employer] 08-24-2022 01:01-0500 Respiratory rate 18 /min Andrea Mitchell MD Work Phone: [facility] 08-24-2022 01:01-0500 SaO2% (BldA) [Mass fraction] 99 % Andrea Mitchell MD Work Phone: [facility] 08-24-2022 01:01-0500 Systolic blood pressure 119 mm[Hg] Andrea Mitchell MD Work Phone: [facility] 08-10-2022 00:13-0500 Body mass index (BMI) [Ratio] 25.7 kg/m2 Tyron Guevara MD Work Phone: [facility] 08-10-2022 00:13-0500 Body temperature 97.59 [degF] Tyron Guevara MD Work Phone: [facility] 08-10-2022 00:13-0500 Body weight 76.66 kg Tyron Guevara MD Work Phone: [facility] 08-10-2022 00:13-0500 Diastolic blood pressure 70 mm[Hg] Tyron Guevara MD Work Phone: [facility] 08-10-2022 00:13-0500 Heart rate 97 /min Tyron Guevara MD Work Phone: [facility] 08-10-2022 00:13-0500 Respiratory rate 16 /min Tyron Guevara MD Work Phone: [facility] 08-10-2022 00:13-0500 SaO2% (BldA) [Mass fraction] 98 % Tyron Guevara MD Work Phone: [facility] [employer] 08-10-2022 00:13-0500 Systolic blood pressure 123 mm[Hg] Tyron Guevara MD Work Phone: [facility] [employer] 08-06-2022 01:39-0500 Body height 172.7 cm Morgan Tejal DO Work Phone: [facility] 08-06-2022 01:39-0500 Body mass index (BMI) [Ratio] 25.39 kg/m2 Morgan Falk DO Work Phone: [facility] 08-06-2022 01:39-0500 Body temperature 97.81 [degF] Morgan Falk Work Phone: [facility] 08-06-2022 01:39-0500 Body weight 75.75 kg Morgan Falk DO Work Phone: [facility] 08-06-2022 01:39-0500 Diastolic blood pressure 63 mm[Hg] Morgan Falk Work Phone: [facility] 08-06-2022 01:39-0500 Heart rate 95 /min Morgan Falk DO Work Phone: [facility] 08-06-2022 01:39-0500 Respiratory rate 18 /min Morgan Falk DO Work Phone: [facility] 08-06-2022 01:39-0500 SaO2% (BldA) [Mass fraction] 98 % Morgan Falk DO Work Phone: [facility] 08-06-2022 01:39-0500 Systolic blood pressure 116 mm[Hg] Morgan Falk DO Work Phone: [facility] 07-12-2022 05:06-0500 Heart rate 86 /min Kaylinn Dokken [facility] 07-12-2022 05:06-0500 Respiratory rate 11 /min Kaylinn Dokken [facility] 07-12-2022 05:06-0500 SaO2% (BldA) [Mass fraction] 97 % Kaylinn Dokken [facility] 07-12-2022 03:38-0500 Body temperature 97.52 [degF] Kaylinn Dokken [facility] 07-12-2022 03:38-0500 Diastolic blood pressure 64 mm[Hg] Sissy Shah [facility] 07-12-2022 03:38-0500 Heart rate 94 /min Sissy Shah [facility] 07-12-2022 03:38-0500 Respiratory rate 20 /min Sissy Shah [facility] 07-12-2022 03:38-0500 SaO2% (BldA) [Mass fraction] 98 % Sissy Shah [facility] 07-12-2022 03:38-0500 Systolic blood pressure 125 mm[Hg] Sissy Shah [facility] 07-01-2022 14:43-0500 Diastolic blood pressure 67 mm[Hg] Susu Del Rio MD Work Phone: [employer] [employer] 07-01-2022 14:43-0500 Systolic blood pressure 103 mm[Hg] Susu Del Rio MD Work Phone: [employer] 07-01-2022 14:19-0500 Body height 172.7 cm Susu Del Rio MD Work Phone: [employer] 07-01-2022 14:19-0500 Body mass index (BMI) [Ratio] 24.63 kg/m2 Susu Del Rio MD Work Phone: [employer] 07-01-2022 14:19-0500 Body temperature 97.3 [degF] Susu Del Rio MD Work Phone: [employer] 07-01-2022 14:19-0500 Body weight 73.48 kg Susu Del Rio MD Work Phone: [employer] 07-01-2022 14:19-0500 Heart rate 82 /min Susu Del Rio MD Work Phone: [employer] 07-01-2022 14:19-0500 Respiratory rate 16 /min Susu Del Rio MD Work Phone: [facility] [employer] 07-01-2022 14:19-0500 SaO2% (BldA) [Mass fraction] 99 % Susu Del Rio MD Work Phone: [facility] [employer] 04-18-2022 15:20-0400 Body mass index (BMI) [Ratio] 27.06 kg/m2 Tyron Guevara MD Work Phone: [employer] 04-18-2022 15:20-0400 Body temperature 98.2 [degF] Tyron Guevara MD Work Phone: [employer] 04-18-2022 15:20-0400 Body weight 78.38 kg Tyron Guevara MD Work Phone: [employer] 04-18-2022 15:20-0400 Diastolic blood pressure 75 mm[Hg] Tyron Guevara MD Work Phone: [employer] 04-18-2022 15:20-0400 Heart rate 76 /min Tyron Guevara MD Work Phone: [employer] 04-18-2022 15:20-0400 Respiratory rate 16 /min Tyron Guevara MD Work Phone: [facility] [employer] 04-18-2022 15:20-0400 SaO2% (BldA) [Mass fraction] 98 % Tyron Guevara MD Work Phone: [employer] 04-18-2022 15:20-0400 Systolic blood pressure 119 mm[Hg] Tyron Guevara MD Work Phone: [employer] 02-27-2022 15:55-0400 Body height 170.2 cm Josemanuel Ibarra MD Work Phone: [employer] 02-27-2022 15:55-0400 Body mass index (BMI) [Ratio] 28.61 kg/m2 Josemanuel Ibarra MD Work Phone: [employer] 02-27-2022 15:55-0400 Body weight 82.87 kg Josemanuel Ibarra MD Work Phone: [employer] 02-27-2022 15:50-0400 Body temperature 98.1 [degF] Josemanuel Ibarra MD Work Phone: [employer] 02-27-2022 15:50-0400 Diastolic blood pressure 76 mm[Hg] Josemanuel Ibarra MD Work Phone: [employer] 02-27-2022 15:50-0400 Heart rate 71 /min Josemanuel Ibarra MD Work Phone: [employer] 02-27-2022 15:50-0400 Respiratory rate 18 /min Josemanuel Ibarra MD Work Phone: [employer] 02-27-2022 15:50-0400 SaO2% (BldA) [Mass fraction] 98 % Josemanuel Ibarra MD Work Phone: [employer] 02-27-2022 15:50-0400 Systolic blood pressure 135 mm[Hg] Josemanuel Ibarra MD Work Phone: [employer] 02-08-2022 19:11-0400 Body height 170.2 cm Josemanuel Ibarra MD Work Phone: [employer] 02-08-2022 19:11-0400 Body mass index (BMI) [Ratio] 28.93 kg/m2 Josemanuel Ibarra MD Work Phone: [employer] 02-08-2022 19:11-0400 Body temperature 98.6 [degF] Josemanuel Ibarra MD Work Phone: [employer] 02-08-2022 19:11-0400 Body weight 83.78 kg Josemanuel Ibarra MD Work Phone: [employer] 02-08-2022 19:11-0400 Diastolic blood pressure 76 mm[Hg] Josemanuel Ibarra MD Work Phone: [employer] 02-08-2022 19:11-0400 Heart rate 85 /min Josemanuel Ibarra MD Work Phone: [facility] [employer] 02-08-2022 19:11-0400 Respiratory rate 18 /min Josemanuel Ibarra MD Work Phone: [facility] [employer] 02-08-2022 19:11-0400 SaO2% (BldA) [Mass fraction] 99 % Josemanuel Ibarra MD Work Phone: [facility] [employer] 02-08-2022 19:11-0400 Systolic blood pressure 124 mm[Hg] Josemanuel Ibarra MD Work Phone: [facility] [employer] Encounters Encounter Date Encounter Type Care Provider Facility Start: 10-16-2023 End: 10-16-2023 ambulatory JULIUS JUSTYNA Not Available Start: 09-08-2023 End: 09-08-2023 Emergency department patient visit Fercho Jaime [facility] Start: 06-05-2023 End: 06-05-2023 Emergency department patient visit Fercho Jaime [place] [place]: 06-05-2023 End: 06-05-2023 Emergency department patient visit Fercho Jaime [facility] Start: 04-05-2023 End: 04-05-2023 Emergency department patient visit DELFIN Valdez [facility] Start: 03-23-2023 End: 03-24-2023 Emergency department patient visit MORGAN FALK [facility] Start: 01-03-2023 End: 01-04-2023 ambulatory NOE HARRISON [facility] Start: 12-05-2022 End: 12-06-[address] JULIUS CROCKETT . Facility: Start: 12-05-2022 End: 12-06-2022 ambulatory NOE HARRISON . Facility: Start: 11-26-2022 End: 12-23-2022 Pre-admission assessment Shawn Wilson [facility] Start: 11-25-2022 End: 11-26-2022 ambulatory Shawn Wilson [place] [place] Start: 11-25-2022 End: 11-25-2022 OB Triage Shawn Wilson [facility] Start: 11-07-2022 End: 11-07-[address] JULIUS CROCKETT . Facility: Start: 11-07-2022 End: 11-07-2022 ambulatory NOE HARRISON . Facility: Start: 10-04-2022 End: 10-05-[address] JULIUS CROCKETT . Facility: Start: 10-04-2022 End: 10-05-[address] DELFIN URBANO . Facility: Start: 09-30-2022 Emergency department patient visit MORGAN FALK [facility] Start: 09-30-2022 End: 09-30-2022 Emergency department patient visit Morgan Falk DO Work Phone: [facility] Comment on above: Nausea and vomiting during (Primary Dx) Start: 09-26-2022 Emergency department patient visit NGUYEN CHA [facility] Start: 09-26-2022 End: 09-26-2022 Emergency department patient visit Nguyen Cha MD Work Phone: [facility] Comment on above: Cellulitis of right upper extremity (Primary Dx) Start: 09-20-2022 End: 09-21-2022 ambulatory ALFRED BERGERON Facility: Start: 09-08-2022 End: 09-08-2022 Emergency department patient visit DO Sissy Shah [place] [place] Start: 09-04-2022 End: 09-04-2022 Emergency department patient visit DELFIN Kellogg [facility] Start: 09-04-2022 End: 09-04-2022 Emergency department patient visit Tyron Guevara MD Work Phone: [facility] Comment on above: Vomiting of pregnanc y, antepartum (Primary Dx); Dehydration during Start: 09-02-2022 End: 09-02-2022 Emergency department patient visit Coleman SMaricarmen Ludwig [place] [place] Start: 08-28-2022 End: 08-29-2022 Emergency department patient visit Alfredito Brennan Facility[place] [place] Start: 08-28-2022 End: 08-29-2022 Emergency department patient visit [place] Natalya [facility] Start: 08-26-2022 End: 08-26-2022 Emergency department patient visit Kei Moore Facility[place] [place] Start: 08-26-2022 End: 08-26-2022 Emergency department patient visit Kei Moore [facility] Start: 08-24-2022 End: 08-24-2022 [facility] Start: 08-24-2022 End: 08-24-2022 Emergency department patient visit Andrea Mitchell MD Work Phone: [facility] Comment on above: Hyperemesis gravidar um (Primary Dx); Dehydration Start: 08-12-2022 End: 08-13-2022 ambulatory TYRON Kellogg [facility] Start: 08-10-2022 End: 08-10-2022 Emergency department patient visit TYRON GUEVARA [facility] Start: 08-10-2022 End: 08-10-2022 Emergency department patient visit Tyron Guevara MD Work Phone: [facility] Comment on above: Abdominal pain durin g in first trimester (Primary Dx); Nausea and vomiting during Start: 08-06-2022 Emergency department patient visit MORGAN FALK [facility] Start: 08-06-2022 End: 08-06-2022 Emergency department patient visit Morgan Falk DO Work Phone: [facility] Comment on above: Morning sickness (Pr imary Dx) Start: 07-23-2022 End: 07-23-2022 Emergency department patient visit DELFIN Kellogg [facility] Start: 07-12-2022 End: 07-12-2022 Emergency department patient visit DO Sissy Shah [place] [place] Start: 07-12-2022 End: 07-12-2022 Emergency department patient visit Sissy Shah [facility] Start: 07-01-2022 End: 07-01-2022 Emergency department patient visit DELFIN Kellogg [facility] Start: 07-01-2022 End: 07-01-2022 Emergency department patient visit Susu Del Rio MD Work Phone: [facility] Comment on above: Pain, dental (Primar y Dx); History of tooth extraction, unspecified edentulism class Start: 04-18-2022 End: 04-18-2022 Emergency department patient visit TYRON GUEVARA [facility] Start: 04-18-2022 End: 04-18-2022 Emergency department patient visit Tyron Guevara MD Work Phone: [facility] Comment on above: Abdominal cramping ( Primary Dx); Negative test Start: 04-09-2022 End: 04-09-2022 ambulatory LAURA GONZALEZ Facility:[facility] Start: 02-27-2022 End: 02-27-2022 Emergency department patient visit Josemanuel Ibarra MD Work Phone: [facility] Comment on above: Pain, dental (Primar y Dx) Start: 02-15-2022 End: 02-16-[address] DELFIN URBANO . Facility:[facility] Start: 02-08-2022 End: 02-08-2022 Emergency department patient visit Josemanuel Ibarra MD Work Phone: [facility] Comment on above: Non-intractable vomi ting with nausea, unspecified vomiting type (Primary Dx) Start: 06-02-2017 End: 06-02-2017 Emergency department patient visit NOE [facility] Procedures Date Procedure Procedure Detail Performing Clinician [...] DTaP/Tdap/Td vaccine (6 - Td or Tdap) [facility] Start: 08-12-2022 End: 08-10-2023 hCG, Quantitative, hCG, Quantitative, Lab Routine Abdominal pain during in first trimester Expected: 08/12/2022, Expires: 08/10/2023 [facility] [employer] Phone: Comment on above: Expected: 08/12/2022 , Expires: 08/10/2023 Start: 2022 Screening for malign ant neoplasm of cervix Pap [facility] Start: 04-25-2022 Influenza vaccination B ON [employer] Start: 03-25-2022 Influenza vaccination Flu vaccine (# 1) [facility] Start: 2019 Hepatitis C screening Hepatitis C sc reen [facility] [employer] Start: 2017 Screening for Chlamy brian trachomatis [facility] [employer] Start: 2016 HIV screening HIV screen [facility] [employer] Start: 2013 Depression Screen Depression Screen [facility] [employer] Start: 2006 COVID-19 Vaccine (1) COVID-19 Vaccin e (1) [facility] Start: 01-06-2002 COVID-19 Vaccine (#1) COVID-19 Vacci ne (#1) [facility] [employer] End: 08-10-2022 US OB TRANSVAGINAL US OB TRANSVAGINAL Imaging STAT Once for 1 Occurrences starting 08/10/2022 until 08/10/2022 [facility] [employer] Phone: Comment on above: Once for 1 Occurrenc es starting 08/10/2022 until 08/10/2022 US OB TRANSVAGINAL US OB TRANSVA GINAL Imaging STAT 08/10/2022 1:21 AM EST [employer] Work Phone: Payers Date Payer Category Payer Unknown [id number] 2.16.84 [id number] 2001 Unknown [id number] 2.16.84 0.1.698446.3.579.2.593 2001 Unknown [id number] 2.16.84 0.1.773791.3.579.2.593 2001 Unknown [id number] 2.16.84 0.1.250564.3.579.2.593 2001 Unknown [id number] 2.16.84 0.1.350053.3.579.2.593 2001 Unknown [id number] 2.16.84 0.1.288402.3.579.2.593 2001 Unknown [id number] 2.16.84 0.1.631089.3.579.2.593 2001 Unknown [id number] 2.16.84 0.1.459191.3.579.2.593 2001 Unknown [id number] 2.16.84 0.1.302808.3.579.2.593 2001 Unknown [id number] 2.16.84 0.1.190360.3.579.2.593 2001 Unknown [id number] 2.16.8 40.1.602602.3.579.2.174 2001 Unknown [id number] 2.16.8 40.1.439355.3.579.2.174 2001 Unknown [id number] 2.16.8 40.1.131150.3.579.2.174 2001 Unknown [id number] 2.16.8 40.1.907005.3.579.2.174 2001 Unknown [id number] 2.16.8 40.1.829272.3.579.2.174 2001 Unknown [id number] 2.16.8 40.1.143610.3.579.2.174 2001 Unknown [id number] 2.16.8 40.1.845806.3.579.2.174 2001 Unknown [id number] 2.16.8 40.1.164084.3.579.2.174 2001 Unknown [id number] 2.16.8 40.1.080175.3.579.2.174 2001 Unknown [id number] 2.16.8 40.1.538375.3.579.2.174 2001 Unknown [id number] 2.16.8 40.1.995381.3.579.2.174 2001 Unknown [id number] 2.16.8 40.1.146535.3.579.2.174 2001 Unknown [id number] 2.16.8 40.1.200121.3.579.2.173 2001 Unknown [id number] 2.16.8 40.1.836869.3.579.2.727 2001 Unknown [id number] 2.16.8 40.1.750189.3.579.2.727 2001 Unknown [id number] 2.16.8 40.1.017960.3.579.2.727 2001 Unknown [id number] 2.16.8 40.1.468457.3.579.2.727 2001 Unknown [id number] 2.16.8 40.1.147219.3.579.2.727 2001 Unknown [id number] 2.16.8 40.1.654732.3.579.2.727 2001 Unknown [id number] 2.16.8 40.1.770887.3.579.2.727 2001 Unknown [id number] 2.16.84 0.1.534445.3.579.2.1259 1959 Self-pay 1959 Unknown [id number] 1. [id number] Unknown [id number] 2.16.84 0.1.820688.3.579.2.593 Social History Date Type Detail Facility Start: 06-02-2017 End: 07-01-2022 Tobacco smoking status [facility] Never smoked tobacco [facility] [employer] Phone: Start: 06-02-2017 End: 07-01-2022 Tobacco use and exposure Smokeless tobacco non-user [employer] Phone: Start: 02-08-2022 End: 09-30-2022 Alcohol intake Current non-drinker of alcohol (finding) [employer] Phone: Start: 02-08-2022 End: 09-30-2022 History SDOH Alcohol Frequency 1 [employer] Phone: Start: 2001 Sex Assigned At Not on file B ON [employer] Phone: Start: 01-29-2022 End: 09-30-2022 Exposure to SARS-CoV-2 (event) Not sure [employer] Phone: Start: 07-01-2022 End: 09-30-2022 History SDOH Alcohol Std Drinks 0 [employer] Phone: Tobacco Household tobacc o concerns: Yes. [facility] Comment on above: denies Tobacco smoking status No Smokin g Status Entered [facility] Sex Assigned At Female [facility] Start: 07-25-2022 [employer] Phone: Start: 09-08-2023 Tobacco smoking status Ex-smoker (fi nding) [facility] Comment on above: hx of smoking quit i n 2021 Functional Status Date Assessment Result Facility 09-08-2023 Functional Status N/A [facility] 06-05-2023 Functional Status N/A [facility] 11-25-2022 Functional Status N/A [facility] 08-28-2022 Functional Status N/A [facility] 08-26-2022 Functional Status N/A [facility] 07-12-2022 Functional Status Yes [facility] Clinical Notes 07-12-2022 to 09-08-2023 Note Date & Type Note Facility 09-08-2023 Evaluation + Plan note Extrac charito from: Title:ED Note Author:E[place] PA-C te:09/08/23 Bronchitis (J40: Bronchitis, not specified as acute or chronic) Orders: brompheniramine/dextromethorphan/PSE, 10 mL, Oral, QID for cough and congestion for 7 day(s), 280 mL, Refill(s) 0, [employer] #16, 175, cm, 09/08/23 11:11:00 EST, Height/Length Dosing, 79.5, kg, 09/08/23 11:11:00 EST, Weight Dosing XR Chest 2 Views [facility]01-15-2024 Hospital Discharge instructions Patient Education 09/08/2023 11:44:21 [...] condition. Follow these instructions at home: Take lghk-blx-agkvsvr and prescription medicines only as told by [...] and water are not available, use hand child care giver. Avoid contact with people who have cold [...] it is easier to cough up. Take sdzn-ioz-duepjte and prescription medicines only as told by [...] provider. Document Revised: 11/21/2022 Document Reviewed: 12/12/2021 [employer] Patient Education 2022 [employer]. Follow Up Care 09/08/2023 11:03:42 With:Delfin Urbano Address: [address] [place], [place] [id number]- [facility] (1) When:09/11/2023 11:37:37 [facility]10-12-2023 Hospital Discharge instructions Patient Education 06/05/2023 18:18:00 [...] help with your condition: Managing pain Take ycaj-kur-wbvwebg and prescription medicines only as told by [...] provider. Document Revised: 01/09/2022 Document Reviewed: 01/09/2022 [employer] Patient Education 2022 [employer]. Follow Up Care 06/05/2023 15:22:25 With:Delfin Urbano Address: [address] [place] [address]- Business (1) When:06/08/2023 18:17:47 Comments:Call the [...] you develop any new or worsening symptoms. [facility]10-12-2023 Evaluation + Plan noteExtracted from: Title:ED Note Author:Víctor Lind PA-C e:06/05/23 Headache (R51.9: Headache, u nspecified) Nauseous [...] eGFR Influenza A&B Ag Rapid COVID Antigen [place] [place] U Beta Hcg Qual [facility]04-04-2023 NoteThe following Patient Education Materials have been given to the patient: [facility] Hospital Discharge instructions Patient Education 11/25/2022 22:14:49 [...] or until the pain goes away. Take bufs-tky-wdymlor and prescription medicines only as told by [...] 05/20/2009 Document Revised: 01/27/2019 Document Reviewed: 01/27/2019 [employer] Patient Education 2020 [employer]. 11/25/2022 22:14:49 Morning Sickness, Ywht-mz-Nvon Morning Sickness Morning sickness is when you [...] Follow these instructions at home: Medicines Take sbzj-syb-xlriehh and prescription medicines only as told by [...] 09/18/2005 Document Revised: 07/24/2018 Document Reviewed: 09/11/2017 [employer] Patient Education 2020 [employer]. 11/25/2022 22:14:49 Second Trimester of , Vjvs-ci-Wdio Second Trimester of The second trimester is [...] Follow these instructions at home: Medicines Take vvue-yto-blfjkex and prescription medicines only as told by [...] 11/05/2010 Document Revised: 12/03/2019 Document Reviewed: 09/16/2017 [employer] Patient Education 2020 [employer] 11/25/2022 22:14:49 Abdominal Pain During , Fbty-ei-Mvkh Abdominal Pain During Belly (abdominal) pain is [...] keep your pee (urine) pale yellow. Take rqxt-alf-lityepd and prescription medicines only as told by [...] 07/30/2010 Document Revised: 11/29/2019 Document Reviewed: 11/13/2017 [employer] Patient Education 2020 [employer]. Follow Up Care 11/25/2022 18:22:07 With:Your doctor in [place] [phone] Address:Unknown When:11/28/2022 21:41:43 Comments:Call for any problems.Call [...] work. May take Tylenol for pain relief. [facility]02-06-2023 Hospital Discharge instructions* Discharge Instructions* Morgan Falk DO - 09/30/2022 9:10 AM EST Zofran as needed for nausea. Follow-up with OB next week as scheduled. Return to ER for worsening symptoms including intractable vomiting or abdominal pain or fevers or chills or any vaginal bleeding. * Attachments The following attachments cannot be sent through Care Everywhere. * : Hyperemesis Gravidarum (Qatari) documented in this encounterLAWRENCE [facility]. [facility]ITALThe [facility] Phone: 1([phone]) 428-345401-11-2023 Hospital Discharge instructions* Attachments The following attachments cannot be sent through Care Everywhere. * : Morning Sickness (Qatari) * Oral Rehydration (Qatari) documented in this encounterLAWRENCE F. [facility]LEY [facility]IAL HOSPITALThe [facility] Phone: [phone]) 656-724801-05-2023 Evaluation + Plan noteExtracted from: Title:ED Note [...] UA With Cult Reflex US 1st Trimester [facility]01-05-2023 Hospital Discharge instructions Patient Education 08/29/2022 01:49:40 [...] water added (diluted fruit juice). Eat bland, fcdq-jc-zewukx foods in small amounts as you are able. These foods include bananas, applesauce, rice, lean meats, toast, and crackers. Avoid drinking fluids that contain a lot of sugar or caffeine, such as energy drinks, sports drinks, and soda. Avoid alcohol. Avoid spicy or fatty foods. General instructions Take rvmr-mhd-arryget and prescription medicines only as told by your health care provider. Rest at home while you recover. Drink enough fluid to keep your urine pale yellow. Breathe slowly and deeply when you feel nauseous. Avoid smelling things that have strong odors. Wash your hands often using soap and water. If soap and water are not available, use hand child care giver. Make sure that all people in your [...] recommendations for eating and drinking and take qrhh-dhd-tjanuzh and prescription medicinesonly as told by your [...] 09/18/2005 Document Revised: 01/19/2019 Document Reviewed: 01/19/2019 [employer] Patient Education 2020 [employer] Alida. 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 Avoid heavy [...] disease or chickenpox. You are exposed to [place] measles (rubella) and have never had it. [...] 08/05/2002 Document Revised: 07/24/2018 Document Reviewed: 07/23/2017 [employer] Patient Education 2020 [employer]. 08/29/2022 01:49:40 Abdominal Pain During Abdominal Pain [...] to keep your urine pale yellow. Take oyrb-evu-vsbamwa and prescription medicines only as told by [...] 08/11/2006 Document Revised: 11/29/2019 Document Reviewed: 11/13/2017 [employer] Patient Education 2020 [employer]. Follow Up Care 08/28/2022 21:30:23 With:Julius CROCKETT Address: [address] , [place] [address]- Business (1) When:09/01/2022 Comments:Return to the emergency room if your pain gets worse, general bleeding, vomiting or any new symptoms With:Delfin Urbano Address: [address] [place] [address] [place] [address]- Business (1) When:Within 3 Day(s) [facility]01-02-2023 Evaluation + Plan noteExtracted from: Title:ED Note [...] Tube Lipase Level UA With Cult Reflex [facility]01-02-2023 Hospital Discharge instructions Follow Up Care 08/26/2022 11:00:10 With:Julius CROCKETT Address: [address] , [place] [address]- Business (1) When:08/29/2022 12:48:07 With:Delfin Urbano Address: [address] [place] [address] [place] [address]- Business (1) When:Within 3 Day(s) [facility]12-31-2022 History of Present illness Narrative* Shantanu Jameson RN - 08/24/2022 2:15 AM EST Patient resting with eyes closed documented in this encounterSPOTSYLVAN[facility] CENTERAllostatix Phone: [phone]) [phone] Hospital Discharge instructions* Discharge Instructions* Tyron Guevara MD - 08/10/2022 2:09 AM EST By Last Menstrual of 07/12, I calculated your due date as 04/18/2023 4 weeks 1 day as of 08/10/2022 * Attachments The following attachments cannot be sent through Care Everywhere. * : Abdominal Pain (Qatari) * : Morning Sickness (Qatari) documented in [facility]Sent[facility] Phone: [phone]) 483-416612-13-2022 Hospital Discharge instructions* Discharge Instructions* Morgan Falk DO - 08/06/2022 1:40 AM EST Take nwuu-tzd-nsnpvpm Prilosec as needed for heartburn symptoms. Call to establish care. Return to ER for worsening symptoms. * Attachments The following attachments cannot be sent through Care Everywhere. * : Morning Sickness (Qatari) documented in [facility] [employer] Phone: [phone]) 115-585412-12-2022 Evaluation note* Diagnosis Morning sickness- Primary Mild hyperemesis gravidarum, unspecified as to episode of care documented in this encounter [facility] [employer] Phone: 1(265) 235-198511-18-2022 Evaluation + Plan noteExtracted from: Title:ED Note [...] With Cult Reflex XR Chest Single View [facility]11-18-2022 Hospital Discharge instructions Patient Education 07/12/2022 05:07:15 Abdominal Pain, Adult, Vaea-mv-Tdli Abdominal Pain, Adult Many things can cause belly (abdominal) pain. Most times, belly pain is not dangerous. Many cases of belly pain can be watched and treated at home. Sometimes, though, belly pain is serious. Your doctor will try to find the cause of your belly pain. Follow these instructions at home: Medicines Take rrhi-zpw-vahxqay and prescription medicines only as told by [...] your belly pain for any changes. Take omrb-ian-xuehgig and prescription medicines only as told by [...] 01/27/2009 Document Revised: 12/20/2019 Document Reviewed: 12/20/2019 [employer] Patient Education 2020 [employer]. Follow Up Care 07/12/2022 03:38:09 With:Delfin Urbano Address: [address] [place], [place] [id number]- Business (1) When:07/15/2022 Comments:Take the Pepcid once [...] theED for any new or worsening symptoms. [facility] Diagnosis Non-intractable vomiting with nausea, unspecified vomiting type- Primary documented in this encounter [employer] Phone: evaluation note* Diagnosis Pain, dental- Primary Unspecified disorder of the teeth and supporting structures documented in this encounter [employer] Phone: evaluation note* Diagnosis Abdominal cramping- Primary Abdominal pain, unspecified site Negative test examination or test, negative result documented in this encounter [employer] Phone: evaluation note* Diagnosis Pain, dental- Primary Unspecified disorder of the teeth and supporting structures History of tooth extraction, unspecified edentulism class documented in this encounter [employer] Phone: evaluation note* Diagnosis Abdominal pain during in first trimester- Primary Nausea and vomiting during documented in this encounter [employer] Phone: evaluation note* Diagnosis Hyperemesis gravidarum- Primary Mild hyperemesis gravidarum, unspecified as to episode of care Dehydration documented in this encounter [employer] Phone: evaluation note* Diagnosis Vomiting of , antepartum- Primary Unspecified vomiting of , antepartum Dehydration during documented in this encounter [employer] Phone: evaluation note* Diagnosis Cellulitis of right upper extremity- Primary Cellulitis and abscess of upper arm and forearm documented in this encounter [employer] Phone: evaluation note* Diagnosis Nausea and vomiting during - Primary documented in this encounter [employer] Phone: Hospital course Narrative No data available for this section [facility]* Attachments The following attachments cannot be sent through Care Everywhere. * Nausea and Vomiting (Qatari) documented in this encounterEpidemic Sound Phone: Hospital Discharge instructions* Attachments The following attachments cannot be sent through Care Everywhere. * Tooth and Gum Pain (Qatari) documented in this encounterLAWR[facility]ITALThe [facility] Phone: Hospital Discharge instructions* Attachments The following attachments cannot be sent through Care Everywhere. * Abdominal Pain (Qatari) documented in this encounterLAWR[facility]ITALThe [facility] Phone: Hospital Discharge instructions* Attachments The following attachments cannot be sent through Care Everywhere. * [place] Tooth Extraction: Post-op (Qatari) documented in this encounterLAWRENCE [facility]. [facility]PITALThe [facility] Phone: Hospital Discharge instructions* Attachments The following attachments cannot be sent through Care Everywhere. * Oral Rehydration (Qatari) documented in this encounterLAWR[facility]. [facility]ITALThe [facility] Phone: Hospital Discharge instructions* Attachments The following attachments cannot be sent through Care Everywhere. * Cellulitis (Qatari) documented in this encounterLAWR[facility]. [facility]ITALThe [facility] Phone: Hospital Discharge instructions No data available for this section [facility] No data available for this section [facility] Summary Purpose Family History No Family History Records FoundNo Family History Records FoundNo Family History Records FoundNo Family History Records Found No data available for this section No Family History Records Found No data available for this section No Family History Records Found Advance Directives No Advanced Directives Records FoundDocuments on File Type Date Recorded 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 Expl anation ACP-Advance Directive ACP-Power of Oenologist Additional Source Comments INFORMATION SOURCE (unrecogn ized section and content) DATE CREATED AUTHOR 02/17/2018 [facility] DATE CREATED AUTHOR AUTHOR'S ORGANIZ ATION 12/09/2022 [facility] DATE CREATED AUTHOR AUTHOR'S ORGANIZ ATION 03/26/2023 [facility] DATE CREATED AUTHOR AUTHOR'S ORGANIZ ATION 04/13/2023 [facility] DATE CREATED AUTHOR AUTHOR'S ORGANIZ ATION 06/07/2023 [facility] DATE CREATED AUTHOR AUTHOR'S ORGANIZ ATION 10/24/2023 [facility] EPIC Reason for Visit (unrecogniz [...] she took 2 positive tests from the [facility] but she wanted to come to the hospital to get it checked. 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 an [employer]PO[employer] Morning Sickness Nausea with no vomit ing, [...] not administer for more than 5 days. 1940 (Given - Provid er: Mery Jaime RN) ondansetron (ZOFRAN) injection 4 mg (COMPLETED) 4 mg, IntraVENous, ONCE, 1 dose, On Fri02/08/22 at 1930 1941 (Given - Provid er: Mery Jaime RN) [...] every 3 hours as needed for pain 162 (Given - Provid er: Clover Dorsey RN) [...] (New Bag - Prov ider: Majo Haskins RN)2133 (Stopped - Provider: Majo Haskins RN) ondansetron [...] Care Teams (unrecognized sec tion and content) Merchandise Marker Relationship Specialty Start Date End Date Delfin Urbano MD [address] [facility] [place] [facility] [place] [address] PCP - General Family Medicine 02/08/22 Merchandise Marker Relationship Specialty Start Date End Date Delfin Urbano MD [address] [place] [address] PCP - General Family Medicine 02/08/22 Merchandise Marker Relationship Specialty Start Date End Date Delfin Urbano MD [address] [place] [address] PCP - General Family Medicine 02/08/22 Merchandise Marker Relationship Specialty Start Date End Date Delfin Urbano MD [address] [facility] [place] [address] PCP - General Family Medicine 02/08/22 Merchandise Marker Relationship Specialty Start Date End Date Delfin Urbano MD [address] [place] [address] PCP - General Family Medicine 02/08/22 Merchandise Marker Relationship Specialty Start Date End Date Delfin Urbano MD [address] [place] [address] PCP - General Family Medicine 02/08/22 Merchandise Marker Relationship Specialty Start Date End Date Delfin Urbano MD [address] [place] [address] PCP - General Family Medicine 02/08/22 FOR [...] BE BASED ON THE PRIMARY CLINICAL RECORDS. [facility] [employer] [facility]. provides no warranty or guarantee of the accuracy or completeness of information in this document.
[2023-11-14 11:34] LABS: Basophils Percent Auto 0.6 % (0.2-2.0); Eosinophils Absolute Auto 0.1 10^3/uL (0.0-0.7); Eosinophils Percent Auto 0.9 % (0.9-7.0); Hematocrit 40.5 % (36.0-48.0); Hemoglobin 13.5 g/dL (12.0-16.0); Immature Granulocytes Abs Auto 0.02 10^3/uL (0.00-0.03); Immature Granulocytes Pct Auto 0.3 % (0.0-0.5); Lymphocytes Absolute Auto 1.7 10^3/uL (1.2-3.8); Lymphocytes Percent Auto 23.8 % (20.5-60.0); Mean Corpuscular HGB Conc 33.3 g/dL (29.9-35.2); Mean Corpuscular Hemoglobin 28.4 pg (26.7-34.0); Mean Corpuscular Volume 85.3 fL (81.0-99.0); Mean Platelet Volume 10.3 fL (9.5-13.5); Monocytes Absolute Auto 0.4 10^3/uL (0.3-0.8); Monocytes Percent Auto 6.2 % (1.7-12.0); Neutrophils Absolute Auto 4.8 10^3/uL (1.4-6.5); Neutrophils Percent Auto 68.2 % (43.0-75.0); Platelet Count 237 10^3/uL (150-450); Red Blood Count 4.75 10^6/uL (4.20-5.40); Red Cell Distribution Width 13.3 % (11.0-15.0)
[2023-11-14] MEDS: LACTATED RINGER'S SOLUTION 1,000 ML 50 ML IV ×2 (12:01→14:46)
--- NOTE | 2023-11-14 13:45 | US_ITS ---
[address] [address] Patient Name: ROQUE PIERSON MRN: [id number] date: 2000 Sex: F Assigned Patient Location: SURGOUT Current Patient Location: Accession/Order Number: [id number] Exam Date: 11/14/2023 14:41 Report Date: 11/17/2023 07:11 At the request of: REKHA JANSEN Procedure: US pelvis EXAMINATION: US pelvis HISTORY: miscarriage COMPARISON: 11/13/2023 FINDINGS: Uterus is prominent in size, heterogeneous in echotexture with no focal mass. No intrauterine is observed. Mild heterogeneous endometrium having both soft tissue and fluid components. Color-flow was not utilized. US/US pelvis IMPRESSION: Limited exam without color flow No intrauterine gestation identified Electronically authenticated by: ALFRED BERGERON Date: 11/17/2023 07:11
--- NOTE | 2023-11-14 14:49 | P.ON_ITS ---
Brief Operative Note Date of procedure: 11/14/23 Pre-op diagnosis: missed , twins gestation 1st trimester Post-op diagnosis: same as pre-op Procedure: NAME OF PROCEDURE: [D&C suction ] PROCEDURE: The patient was taken back to the OR where she was given general anesthesia without difficulty. She was then placed in dorsal lithotomy position, prepped and draped in the normal sterile fashion. A weighted speculum was placed in the patient's vagina and the anterior lip of the cervix was identified and grasped with a single-tooth tenaculum. The patient was then gently dilated using Hegar dilators after we had sounded roughly to 12 cm. The suction curette was then tested. The suction curette was then placed in the patient's uterus and products of conception were removed using an 10-Luxembourgish suction curette. ?Excellent hemostasis was noted. The patient tolerated the procedure well. Sponge, lap, and needle counts were correct x 2. All instruments were then removed from the patient's vagina. The patient was taken to the Recovery Room in stable condition. ?? Anesthesia: MAC Surgeon: Julius Crockett Estimated blood loss (mL): 20 Pathology: other (poc) Condition: stable Disposition: PACU Urinary Catheter Management Urinary Catheter Management Urethral: Cath placed during this visit: no
--- NOTE | 2023-11-14 15:14 | PC.NURSE ---
Peripad noted to have scant amount red drainage without clots
--- NOTE | 2023-11-14 15:19 | PC.NURSE ---
No increase of drainage on peripad
--- NOTE | 2023-11-14 15:23 | PC.NURSE ---
Small amount drainage noted vaginally; no clots noted
--- NOTE | 2023-11-14 15:39 | PC.NURSE ---
Pericare given and chux and pad changed for small amount bleeding; no clots noted
--- NOTE | 2023-11-14 16:13 | PC.NURSE ---
Small amount drainage noted on peripad
--- NOTE | 2023-11-14 16:37 | PC.NURSE ---
Medium amount bleeding noted on chux when assisted to bathroom; no clots noted; voided without difficulty; blood noted in toliet
== END 2023-11-14 16:50 | disposition home or self-care (01) ==
PROVIDERS: PCP Family Medicine; Visit Provider Obstetrics & Gynecology
PROC: (CPT 1965; principal; 2023-11-14 11:50)
DX: O02.1 Missed abortion (principal)
CPT/HCPCS: 59820; 36415; 76856; 85025; 86900; 86901; 88305; 99999; J1094; J2704

== ENCOUNTER 2024-01-01 00:38 | Emergency (ER) | payer OTHER, SELFPAY ==
[2024-01-01 00:42] VITALS: BP 116/72; PULSE 81; TEMP 36.8; O2SAT 99
--- OUTSIDE RECORDS SUMMARY | 2024-01-01 00:44 | XMS_ITS ---
Author Name Auto Generated Organization OHIP Care Team Providers Care Reed Man Name Role Phone REKHA CROCKETT Attending Unavailable REKHA CROCKETT Attending Unavailable NOE HARRISON Attending Unavailable Rekha Crockett Attending Unavailable Rekha Crockett Admitting Unavailable AMBROSE GALAVIZ M Primary Care Unavailable AMBROSE GALAVIZ M Primary Care Unavailable Fercho Jaime Attending Unavailable Fercho Jaime Attending Unavailable NOE HARRISON Referring Unavailable AMBROSE GALAVIZ M Primary Care Unavailable THERESA GALAVIZLAS M Primary Care Unavailable ENEDELIA FALK Attending Unavailable AMBROSE GALAVIZ M Primary Care Unavailable DAVID SILVA Attending Unavailable PROBLEMS DATE TYPE CONDITION / CODE ATTENDING STATUS [facility] 12/14/2023 Unknown Urinary tract infection, site not specified / N39.0(ICD-10) DAVID SILVA [facility] 11/13/2023 Unknown Complete or unspecified spontaneous without complication / O03.9(ICD-10) [facility] 04/05/2023 Unknown Residual hemorrhoidal skin tags / K64.4(ICD-10) [facility] 03/23/2023 Unknown Other specified diseases and conditions complicating / O99.891(ICD-10) ENEDELIA FALK [facility] 03/23/2023 Unknown Bacteriuria / R82.71(ICD-10) ENEDELIA FALK [facility] 01/03/2023 Admitting diagnosis Encounter for screening for diabetes mellitus / Z13.1(ICD-10) [facility] PROCEDURES No Procedure Records Found RESULTS CULT,URINE Observed: 12/14/2023 3:30 AM Status: F Source: [facility] REPOSITORY Specimen Description .URINE, MIDSTREAM Culture NO SIGNIFICANT GROWTH Report Status FINAL 12/15/2023 Performed By: #### [facility] #### [employer] [address] [place], [place] [id number] Hydro Plant Operator: Kiko Ortega MD [facility] [address] [place] [address] Hydro Plant Operator: Iván hCirinos MD URINALYSIS, ROUTINE Collected: 12/14/19 24 3:20 AM Status: F Source: [facility] REPOSITORY TYPE CODE TESTS RESULT OUT OF RANGE REFERENCE UNITS LAB UCO(LOINC) Color Yellow YEL LAB UTU(LOINC) Clarity, Urine Clear CLEAR LAB UGL(LOINC) Glucose,Semi- qnt,Ur NEGATIVE NEG mg/dL LAB UBI(LOINC) Bilirubin, SemiQt,Ur NEGATIVE NEG LAB UKE(LOINC) Ketones, Urine NEGATIVE NEG mg/dL LAB USG(LOINC) Spec. [place],Ur 1.015 1.005-1.030 LAB UHB(LOINC) Blood, Urine NEGATIVE NEG LAB UPH(LOINC) PH,Ur 6.0 5.0-8.0 LAB UPR(LOINC) Protein, Semi-qnt,Ur TRACE Abnormal NEG mg/dL LAB UUR(LOINC) Urobilinogen, Ur Normal 0.0-1.0 EU/dL LAB UNI(LOINC) Nitrite,Ur NEGATIVE NEG LAB ULE(LOINC) Leukocyte Esterase 2+ Abnormal NEG LAB UCOMM(LOINC) Comment Performed By: #### UA, UMICA O #### [facility] [address] [place] [address] Hydro Plant Operator: Iván Chirinos MD URINALYSIS,MICRO Collected: 3:20 AM Status: F Source: [facility] REPOSITORY TYPE CODE TESTS RESULT OUT OF RANGE REFERENCE UNITS LAB UWBC(LOINC) Urine WBC's 2 TO 5 0 /HPF LAB URBC(LOINC) Urine RBC's 0 TO 2 0-2 /HPF LAB EPITH(LOINC) Epithelial cells 0 TO 2 /HPF LAB SPACER(LOINC) ----- Performed By: #### KEVIN, UMICA O #### [facility] [address] [place] [address] Hydro Plant Operator: Iván Chirinos MD L Observed: 11/14/2023 2:43 PM Status: F Source: [facility] REPOSITORY Specimen: [id number] Received: 11/17/23 Status: SAEED Trevino Num: [id number] Spec Type: Surgical Subm Dr: Rekha Crockett Tissues: A Products of Conception - Spontaneous or Missed (POC) Procedures: HE/3, Gross/Micro L4 Age/ Patient Sex Location Account Attending Physician Alfreda Pierson LABELL [id number] Rekha Crockett SPEC NUM: [id number] RECD: 11/17/23 STATUS: DAYNALibia TREVINO NUM: [id number] MIRYAM: 11/14/[address]: Rekha Crockett ENTERED: 11/17/[address]: Henrry,Lab SPEC TYPE: Surgical DEPT: LEENA ZAVALETA ORDERED: HE/3, Gross/Micro L4 ORDERED: HE/3, Gross/Micro L4 Pathological Diagnosis Products Of Conception:? Immature Chorionic Villi And Decidua, Consistent With Products Of Conception. Clinical Information Missed Gross Description Received in formalin labeled with the patient's name, date of and products of conception is a 7.3 x 6.5 x 2.8 cm aggregate of red-brown spongy tissue. No discrete embryo or embryonic parts are identified. No discrete chorionic villi are identified. Membranes and decidua are identified.. Psychiatric Aide Instructor sections are submitted in three cassettes labeled A1-A3. CPT Codes 72691 ----- ------- ----- ------- Specimen: [id number] Received: 11/17/23 Status: SAEED Trevino Num: [id number] Spec Type: Surgical Subm Dr: Rekha Crockett Tissues: A Products of Conception - Spontaneous or Missed (POC) Procedures: JOANA/Corina, Gross/Micro L4 ----- ------- Patient: Alfreda Pierson [id number] (Continued) ----- ------- Signed (signature on file) Patience Rae MD 11/18/23 1429 DISCHARGE INSTRUCTIONS Observed: 11:54 AM Status: F Source: [facility] REPOSITORY [id number] ED NOTE-PHYSICIAN Observed: 09/08/2023 11:48 AM Status: F Source: [facility] REPOSITORY Basic Information Time Seen: Eagle [place] PA-C 09/08/2023 11:12 Chief Complaint pt c/o cough, sore throat and nausea for a couple of days and son the other day and he was dx with bronchitis. pt denies any abd pain, fever. pt stated she did have some morning sickness and states that she took a preg test and it was neg. pt is not jose daniel History of Present Illness 23-year-old female comes to the ED for evaluation of cough and congestion. Symptoms started few days ago. States her son was recent diagnosed with bronchitis. She complains of nonproductive cough, sinus congestion and sore throat. No fever, chills, nausea or vomiting. No chest pain or abdominal pain. No concern for . No prior treatments. Review of Systems A 10 point review of systems is negative except as noted above. Medical and Surgical History: Reviewed and noted Social history: Lives at home Tobacco: Denies Physical Exam Vitals & Measurements T: 37.1 ?C(Oral) HR: 95(Peripheral) RR: 16 BP: 131/82 SpO2: 98% HT: 175 cm WT: 79.5 kg BMI: 25.96 Nurses notes and vital signs reviewed and patient is not hypoxic. General: Well-appearing, does not appear ill Skin: Warm, dry. Head: Atraumatic. Neck: No JVD. Eye: Normal conjunctiva. Ears, Nose, Mouth, and Throat: Sinus congestion, no difficulty with speaking or swallowing. Mild pharyngeal erythema. No tonsillar hypertrophy or exudates. Uvula is midline. No stridor, trismus or drooling. Cardiovascular: Not tachycardic. Chest wall: Respiratory: Respirations are nonlabored. Back: Normal range of motion. Musculoskeletal: Normal ROM with no gross deformity. Gastrointestinal: Urological: Neurological: Awake and alert. No focal deficits. Follows commands. Psychiatric: Cooperative. Medical Decision Making Chest x-ray with no acute findings. Patient overall nontoxic examination. Resting comfortably. No increased work of breathing. She is started on Bromfed-DM for bronchitis and discharged with PCP follow-up. Patient was encouraged to return to the ED if symptoms worsen or change. Assessment/Plan Bronchitis (J40: Bronchitis, not specified as acute or chronic) Orders: brompheniramine/dextromethorphan/PSE, 10 mL, Oral, QID for cough and congestion for 7 day(s), 280 mL, Refill(s) 0, [facility], 175, cm, 09/08/23 11:11:00 EST, Height/Length Dosing, 79.5, kg, 09/08/23 11:11:00 EST, Weight Dosing XR Chest 2 Views Disposition Plan Patient Discharge Condition Disposition: Discharged home Condition: Improved and stable Counseled: Patient and/or family were counseled to workup, results, treatment plan and follow-up recommendations Discharge Prescription List Prescriptions Bromfed DM oral syrup, 10 mL, Oral, QID, PRN Follow-up With When Contact Information Ambrose Galaviz In 3 days 09/11/[address] Business (1) Additional Instructions: Patient Education Acute Bronchitis, Adult Attestation Patient seen and evaluated by the physician assistant professor of nursing. Attending physician was present in the emergency department and supervised care. This visit was performed by both the physician and an APC. I performed all aspects of the MDM as documented. This report was transcribed using voice recognition software. Every effort was made to ensure accuracy, however, inadvertently computerized recycler mistakes may be present. Appropriate healthcare PPE was used in evaluating this patient. The patient was placed in a mask. The healthcare provider was wearing mask, gloves, and utilizing proper hand hygiene. All equipment was properly cleansed. Problem List/Past Medical History Ongoing No qualifying data Historical None Procedure/Surgical History None. Medications Inpatient No active inpatient medications Home amoxicillin, 500 mg Bromfed DM oral syrup, 10 mL, Oral, QID, PRN promethazine 12.5 mg oral tablet, 12.5 mg= 1 tab(s), Oral, q8hr, PRN, Not taking Reglan 10 mg Tab, 10 mg= 1 tab(s), Oral, q6hr, Not taking Zofran ODT 4 mg Tab-Dis, 4 mg= 1 tab(s), Oral, q6hr, PRN Allergies No Known Allergies Social History Alcohol - Denies Alcohol Use, 12/16/2015 Current, 1-2 times per month, 06/05/2023 Employment/School - Not employed or in school, 11/25/2022 Exercise - Does not exercise, 11/25/2022 Substance Abuse - Denies Substance Abuse, 12/16/2015 Tobacco - Denies Tobacco Use, 12/16/2015 Former smoker, quit more than 30 days ago Tobacco Use:., 09/08/2023 Household tobacco concerns: Yes., 12/16/2015 Lab Results No qualifying data available. Diagnostic Results XR Chest 2 Views 09/08/23 11:32:42 IMPRESSION: NO EVIDENCE OF ACTIVE CHEST DISEASE. CLINICAL HISTORY: Cough. COMPARISON: 07/12/2022. COMMENT: The heart is normal in size. The mediastinum is unremarkable. The lungs appear clear. No infiltration nor pleural effusion is evident. No significant change is noted when compared to the prior exam. Ordering Provider: Eagle Hawk Signed By: Fransisco Crump M.D. 09/08/23 11:28:09 Radiation Dose: Ka,r in mGy = na DAP = na Signed By: Fransisco Crump M.D. Result Comment: Electronical ly Signed By: Eagle Hawk PA-C\.br\Date and Time Signed: 09/08/23 12:05 EST\.br\Electronically Co-Signed By: Fercho Jaime DO.br\Date and Time Co-Signed: 09/08/23 12:26 EST ED PATIENT EDUCATION NOTE Observed: 08/25 11:44 AM Status: F Source: [facility] REPOSITORY Pulmonary Medicine Acute Bronchitis, Adult Acute bronchitis is sudden [...] cough may last longer. Allergies, asthma, and exposure to smoke may make the condition worse. What are the causes? This condition can be caused by germs and by substances that irritate the lungs, including: ? Cold and flu viruses. The most common cause of this condition is the virus that causes the common cold. ? Bacteria. This is less common. ? Breathing in substances that irritate the lungs, including: ? Smoke from cigarettes and other forms of tobacco. ? Dust and pollen. ? Fumes from household cleaning products, gases, or burned fuel. ? Indoor or outdoor air pollution. What increases the risk? The following factors may make you more likely to develop this condition: ? A weak body's defense system, also called the immune system. ? A condition that affects your lungs and breathing, such as asthma. What are the signs or symptoms? Common symptoms of this condition include: ? Coughing. This may bring up clear, yellow, or green mucus from your lungs (sputum). ? Wheezing. ? Runny or stuffy nose. ? Having too much mucus in your lungs (chest congestion). ? Shortness of breath. ? Aches and pains, including sore throat or chest. How is this diagnosed? This condition is usually diagnosed based on: ? Your symptoms and medical history. ? A physical exam. You may also have other tests, including tests to rule out other conditions, such as pneumonia. These tests include: ? A test of lung function. ? Test of a mucus sample to look for the presence of bacteria. ? Tests to check the oxygen level in your blood. ? Blood tests. ? Chest X-ray. How is this treated? Most cases of acute bronchitis clear up over time without treatment. Your health care provider may recommend: ? Drinking more fluids to help thin your mucus so it is easier to cough up. ? Taking inhaled medicine (inhaler) to improve air flow in and out of your lungs. ? Using a vaporizer or a humidifier. These are machines that add water to the air to help you breathe better. ? Taking a medicine that thins mucus and clears congestion (expectorant). ? Taking a medicine that prevents or stops coughing (cough suppressant). It is not common to take an antibiotic medicine for this condition. Follow these instructions at home: ? Take qyvc-lnk-ichdqwf and prescription medicines only as told by your health care provider. ? Use an inhaler, vaporizer, or humidifier as told by your health care provider. ? Take two teaspoons (10 mL) of honey at bedtime to lessen coughing at night. ? Drink enough fluid to keep your urine pale yellow. ? Do not use any products that contain nicotine or tobacco. These products include cigarettes, chewing tobacco, and vaping devices, such as e-cigarettes. If you need help quitting, ask your health care provider. ? Get plenty of rest. ? Return to your normal activities as told by your health care provider. Ask your health care provider what activities are safe for you. ? Keep all follow-up visits. This is important. How is this prevented? To lower your risk of getting this condition again: ? Wash your hands often with soap and water for at least 20 seconds. If soap and water are not available, use hand tower helper. ? Avoid contact with people who have cold symptoms. ? Try not to touch your mouth, nose, or eyes with your hands. ? Avoid breathing in smoke or chemical fumes. Breathing smoke or chemical fumes will make your condition worse. ? Get the flu shot every year. Contact a health care provider if: ? Your symptoms do not improve after 2 weeks. ? You have trouble coughing up the mucus. ? Your cough keeps you awake at night. ? You have a fever. Get help right away if you: ? Cough up blood. ? Feel pain in your chest. ? Have severe shortness of breath. ? Faint or keep feeling like you are going to faint. ? Have a severe headache. ? Have a fever or chills that get worse. These symptoms may represent a serious problem that is an emergency. Do not wait to see if the symptoms will go away. Get medical help right away. Call your local emergency services (911 in the [place] Do not drive yourself to the hospital. Summary ? Acute bronchitis is inflammation of the main airways (bronchi) that come off the windpipe (trachea) in the lungs. The swelling causes the airways to get smaller and make more mucus than normal. ? Drinking more fluids can help thin your mucus so it is easier to cough up. ? Take eivl-aci-cilmrkj and prescription medicines only as told by your health care provider. ? Do not use any products that contain nicotine or tobacco. These products include cigarettes, chewing tobacco, and vaping devices, such as e-cigarettes. If you need help quitting, ask your health care provider. ? Contact a health care provider if your symptoms do not improve after 2 weeks. This information is not intended to replace advice given to you by your health care provider. Make sure you discuss any questions you have with your health care provider. Document Revised: 11/21/2022 Document Reviewed: 12/12/2021 Elsevier Patient Education ? 2022 [employer]. ED PATIENT SUMMARY Observed: 09/08/2023 11:44 AM Status: F Source: [facility] REPOSITORY (Inserted Image. Unable to d isplay) [address] [address] Patient Discharge Instructions Person Information Name: ALFREDA PIERSON Age: 23 Years Arrival Date: 09/08/2023 11:01:24 Discharge Diagnosis: Bronchitis Primary Care Physician: Ambrose Galaviz MD Provider Information Primary Provider: Fercho Jaime DO Advanced Perianesthesia Manager:Eagle Hawk PA-C The exam and treatment you received in the Emergency Department were for an urgent problem and are not intended as complete care. It is important that you follow up with a doctor, nurse practitioner, or physician?s assistant professor of nursing for ongoing care. If your symptoms become worse or you do not improve as expected and you are unable to reach your usual health care provider, you should return to the Emergency Department. We are available 24 hours a day. ALFREDA PIERSON has been given the following list of patient education materials, prescriptions and follow-up instructions: Follow-up Instructions: With: Address: When: Ambrose Galaviz [address] [place] [address], [place] [address] Business (1) In 3 days 09/11/2023 In the event that this physician does not participate in your insurance network, please consult with your insurance company to find a nearby participating provider. Patient Education Materials: Acute Bronchitis, Adult A MESSAGE TO ALL PATIENTS REGARDING OPIOIDS PRESCRIPTION OPIOIDS: WHAT YOU NEED TO KNOW Prescription opioids can be used to help relieve vlxnmglr-ne-rmzqpy pain and are often prescribed following a [...] unused prescription opioids: Find your community drug take- back program or your pharmacy mail-back program, or flush them down the toilet, following guidance from the Food and Drug Administration (www.fda.gov/Drugs/ResourcesForYou). ? Visit www.cdc.gov/drugoverdose to learn about the risks of opioids abuse and overdose. ? If you believe you may be struggling with addiction, tell your health care giver and ask for guidance or call [facility]?S National Helpline at 9-884-545-JSQN. a Source: [place] Department of Health and Human Services/Center for Disease Control & Prevention [facility] Medications Given: Medication Dose Route No medications found. Medication Information: New Medications [facility], [address], [place] [id number], [phone] brompheniramine/dextromethorphan/PSE (Bromfed DM oral syrup) 10 Milliliter By Mouth 4 times a day as needed for cough and congestion for 7 Days. Refills: 0. Medications to [...] needed as needed for nausea/vomiting. Refills: 0. Comment: Pharmacy Information: Patient Portal You may access all of your results and other medical record information on our secure patient portal. If you are not signed up for this yet, please contact [employer] at [phone] to get signed up today. SABRINA Award Nomination The SABRINA (Diseases Attacking the Immune SYstem) Award is an international recognition program that honors and celebrates the skillful, compassionate care nurses provide every day. Anyone who experiences or observes amazing care being provided by a nurse is encouraged to submit a nomination. To nominate your nurse, use your smart phone to scan the QR code below. You may receive a survey from [employer] asking you to rate your care experience. Your feedback is important and will help us understand what we do well and how we can improve the quality of care we provide to you, your loved ones and our community. It?s an honor to serve you. Thank you for choosing [facility] Patient Education Materials: Acute Bronchitis, Adult Acute bronchitis is sudden [...] cough may last longer. Allergies, asthma, and exposure to smoke may make the condition worse. What are the causes? This condition can be caused by germs and by substances that irritate the lungs, including: ? Cold and flu viruses. The most common cause of this condition is the virus that causes the common cold. ? Bacteria. This is less common. ? Breathing in substances that irritate the lungs, including: ? Smoke from cigarettes and other forms of tobacco. ? Dust and pollen. ? Fumes from household cleaning products, gases, or burned fuel. ? Indoor or outdoor air pollution. What increases the risk? The following factors may make you more likely to develop this condition: ? A weak body's defense system, also called the immune system. ? A condition that affects your lungs and breathing, such as asthma. What are the signs or symptoms? Common symptoms of this condition include: ? Coughing. This may bring up clear, yellow, or green mucus from your lungs (sputum). ? Wheezing. ? Runny or stuffy nose. ? Having too much mucus in your lungs (chest congestion). ? Shortness of breath. ? Aches and pains, including sore throat or chest. How is this diagnosed? This condition is usually diagnosed based on: ? Your symptoms and medical history. ? A physical exam. You may also have other tests, including tests to rule out other conditions, such as pneumonia. These tests include: ? A test of lung function. ? Test of a mucus sample to look for the presence of bacteria. ? Tests to check the oxygen level in your blood. ? Blood tests. ? Chest X-ray. How is this treated? Most cases of acute bronchitis clear up over time without treatment. Your health care provider may recommend: ? Drinking more fluids to help thin your mucus so it is easier to cough up. ? Taking inhaled medicine (inhaler) to improve air flow in and out of your lungs. ? Using a vaporizer or a humidifier. These are machines that add water to the air to help you breathe better. ? Taking a medicine that thins mucus and clears congestion (expectorant). ? Taking a medicine that prevents or stops coughing (cough suppressant). It is not common to take an antibiotic medicine for this condition. Follow these instructions at home: ? Take laox-pbk-dcgkbyf and prescription medicines only as told by your health care provider. ? Use an inhaler, vaporizer, or humidifier as told by your health care provider. ? Take two teaspoons (10 mL) of honey at bedtime to lessen coughing at night. ? Drink enough fluid to keep your urine pale yellow. ? Do not use any products that contain nicotine or tobacco. These products include cigarettes, chewing tobacco, and vaping devices, such as e-cigarettes. If you need help quitting, ask your health care provider. ? Get plenty of rest. ? Return to your normal activities as told by your health care provider. Ask your health care provider what activities are safe for you. ? Keep all follow-up visits. This is important. How is this prevented? To lower your risk of getting this condition again: ? Wash your hands often with soap and water for at least 20 seconds. If soap and water are not available, use hand tower helper. ? Avoid contact with people who have cold symptoms. ? Try not to touch your mouth, nose, or eyes with your hands. ? Avoid breathing in smoke or chemical fumes. Breathing smoke or chemical fumes will make your condition worse. ? Get the flu shot every year. Contact a health care provider if: ? Your symptoms do not improve after 2 weeks. ? You have trouble coughing up the mucus. ? Your cough keeps you awake at night. ? You have a fever. Get help right away if you: ? Cough up blood. ? Feel pain in your chest. ? Have severe shortness of breath. ? Faint or keep feeling like you are going to faint. ? Have a severe headache. ? Have a fever or chills that get worse. These symptoms may represent a serious problem that is an emergency. Do not wait to see if the symptoms will go away. Get medical help right away. Call your local emergency services (911 in the [place] Do not drive yourself to the hospital. Summary ? Acute bronchitis is inflammation of the main airways (bronchi) that come off the windpipe (trachea) in the lungs. The swelling causes the airways to get smaller and make more mucus than normal. ? Drinking more fluids can help thin your mucus so it is easier to cough up. ? Take hmel-zdc-fwonpja and prescription medicines only as told by your health care provider. ? Do not use any products that contain nicotine or tobacco. These products include cigarettes, chewing tobacco, and vaping devices, such as e-cigarettes. If you need help quitting, ask your health care provider. ? Contact a health care provider if your symptoms do not improve after 2 weeks. This information is not intended to replace advice given to you by your health care provider. Make sure you discuss any questions you have with your health care provider. Document Revised: 11/21/2022 Document Reviewed: 12/12/2021 [employer] Patient Education ? 2022 [employer] IncDANGELO Higgins SABRINA M , have received the following patient education materials/instructions and have verbalized understanding: Patient Education Materials: Acute Bronchitis, Adult Follow-up Instructions: With: Address: When: Ambrose Galaviz [address] [place] [address] [place] [address] [place] [address] Business (1) In 3 days 09/11/2023 Patient Signature Date Clinician/Nurse Signature Date 09/08/2023 11:44:24 ED CLINICAL SUMMARY Observed: 09/08/2023 11:44 AM Status: F Source: [facility] REPOSITORY (Inserted Image. Unable to d isplay) [address] [address] ED Clinical Summary Person Information Name: ALFREDA PIERSON Maribel/[facility] Age: 23 Years : 2000 Sex: Female Language: Cuban PCP: Ambrose Galaviz MD Marital Status: Single Phone: [phone] Visit Id: Visit Reason: Nausea; Throat pain - Adult; Cough; NOT FEELING WELL, COUGH Speciality: Acuity: 4 Enc Type: Emergency Med Service: Emergency Arrival: 09/08/2023 11:01:24 Discharge: 09/08/2023 11:44:15 LOS: 000 00:43 Checkin: 09/08/2023 11:01:24 Checkout: 09/08/2023 11:44:15 Dispo Type: Home (Routine DC) EVENTS: Event Name Event Status Request Date/Time Start Date/Time Complete Date/Time Arrive Complete 09/08/2023 11:01:24 09/08/2023 11:01:24 09/08/2023 11:01:24 Document Home Meds Request 09/08/2023 11:01:24 Triage Complete 09/08/2023 11:01:24 09/08/2023 11:11:35 09/08/2023 11:11:35 Bed Assign Complete 09/08/2023 11:04:31 09/08/2023 11:04:31 09/08/2023 11:04:31 Dr Exam Complete 09/08/2023 11:04:31 09/08/2023 11:12:48 09/08/2023 11:12:48 RN Exam Complete 09/08/2023 11:04:31 09/08/2023 11:15:13 09/08/2023 11:15:13 Registration Complete 09/08/2023 11:12:48 09/08/2023 11:43:02 09/08/2023 11:43:02 X-Ray Complete 09/08/2023 11:16:23 09/08/2023 11:19:35 09/08/2023 11:28:10 Dr Exam Complete 09/08/2023 11:19:50 09/08/2023 11:19:50 09/08/2023 11:19:50 Wet Read Request 09/08/2023 11:28:10 Discharge Complete 09/08/2023 11:36:44 09/08/2023 11:44:20 09/08/2023 11:44:20 Reg Complete Request 09/08/2023 11:43:02 Reg Bed Request Complete 09/08/2023 11:43:02 09/08/2023 11:43:02 09/08/2023 11:43:02 Transfer Complete 09/08/2023 11:44:20 09/08/2023 11:44:20 09/08/2023 11:44:20 ADDRESS: [address] [place] [phone] PHYS DOC NOTES: MEDICAL INFORMATION: Prescriptions Given: New Medications [facility], [address], [place] [phone], [phone] brompheniramine/dextromethorphan/PSE (Bromfed DM oral syrup) 10 Milliliter By Mouth 4 times a day as needed for cough and congestion for 7 Days. Refills: 0. Medications to [...] nausea/vomiting. Refills: 0. PATIENT EDUCATION INFORMATION: Instructions: Acute Bronchitis, Adult Follow up: With: Address: When: Ambrose Galaviz [address] [place] [address], [address] [place] [phone] Business (1) In 3 days 09/11/2023 DIAGNOSIS: Bronchitis XR CHEST 2 VIEWS Observed: 09/08/2023 11:19 AM Status: F Source: [facility] REPOSITORY Exam Date/Time: 09/08/2023 11:28 EST Reason for Exam: Cough Report IMPRESSION: NO EVIDENCE OF ACTIVE CHEST DISEASE. CLINICAL HISTORY: Cough. COMPARISON: 07/12/2022. COMMENT: The heart is normal in size. The mediastinum is unremarkable. The lungs appear clear. No infiltration nor pleural effusion is evident. No significant change is noted when compared to the prior exam. Ordering Provider: [place] FINAL REPORT Dictated: 09/08/2023 11:29 am Fransisco Crump M.D. Signed (Electronic Signature): 09/08/2023 11:29 am Signed by: Fransisco Crump M.D. Transcribed by: KG Technologist: GABRIELLE Technical Comments Radiation Dose: Ka,r in mGy = na DAP = na CONSENT FOR TREATMENT Observed: 09/08/19 11:03 AM Status: F Source: [facility] REPOSITORY [id number] DISCHARGE INSTRUCTIONS Observed: 023 8:44 PM Status: F Source: [facility] REPOSITORY [id number]#[id number] ED PATIENT EDUCATION NOTE Observed: 05/25 6:41 PM Status: C Source: [facility] REPOSITORY Neurology General Headache Without Cause A headache [...] with your condition: Managing pain ? Take hrgw-yku-pqztwqv and prescription medicines only as told by [...] provider. Document Revised: 01/09/2022 Document Reviewed: 01/09/2022 [employer] Patient Education ? 2022 [employer]. ED PATIENT SUMMARY Observed: 06/05/2023 6:41 PM Status: C Source: [facility] REPOSITORY (Inserted Image. Unable to d isplay) [address] [address] Patient Discharge Instructions Person Information Name: ALFREDA PIERSON Age: 22 Years Arrival Date: 06/05/2023 15:20:08 Discharge Diagnosis: Headache; Nauseous Primary Care Physician: Ambrose Galaviz MD Provider Information Primary Provider: Fercho Jaime DO Advanced Perianesthesia Manager:Víctor Lind PA-C The exam and treatment you received in the Emergency Department were for an urgent problem and are not intended as complete care. It is important that you follow up with a doctor, nurse practitioner, or physician?s assistant professor of nursing for ongoing care. If your symptoms become worse or you do not improve as expected and you are unable to reach your usual health care provider, you should return to the Emergency Department. We are available 24 hours a day. ALFREDA PIERSON has been given the following list of patient education materials, prescriptions and follow-up instructions: Follow-up Instructions: With: Address: When: Ambrose Galaviz [address] [place] [address], [facility] [place] [address] [facility] (1) In 3 days 06/08/2023 Comments: Call [...] opioids can be used to help relieve iamohzjm-ch-citswx pain and are often prescribed following a [...] unused prescription opioids: Find your community drug take- back program or your pharmacy mail-back program, or flush them down the toilet, following guidance from the Food and Drug Administration (www.fda.gov/Drugs/ResourcesForYou). ? Visit www.cdc.gov/drugoverdose to learn about the risks of opioids abuse and overdose. ? If you believe you may be struggling with addiction, tell your health care giver and ask for guidance or call [facility]?S National Helpline at 1-609-572-GQSW. v Source: US Department of Health and Human Services/Center for Disease Control & Prevention [facility] Medications Given: Medication Dose Route diphenhydrAMINE 25.00 mg IV Push Left Antecubital [place] metoclopramide 10.00 mg IV Push Left Antecubital [place] ondansetron 4.00 mg IV Push Left Antecubital Jose Alejandro Medication Information: Medications to Continue with No Changes Other [...] needed as needed for nausea/vomiting. Refills: 0. Comment: Pharmacy Information: Patient Portal You may access all of your results and other medical record information on our secure patient portal. If you are not signed up for this yet, please contact [facility] at [phone] to get signed up today. You may receive a survey from [employer] asking you to rate your care experience. Your feedback is important and will help us understand what we do well and how we can improve the quality of care we provide to you, your loved ones and our community. It?s an honor to serve you. Thank you for choosing [facility] Patient Education Materials: General Headache Without Cause A headache is [...] with your condition: Managing pain ? Take ivsu-kyp-vanbwig and prescription medicines only as told by [...] provider. Document Revised: 01/09/2022 Document Reviewed: 01/09/2022 [email or web address] Patient Education ? 2022 [employer]. DANGELO Bhandari SABRINA M , have received the following patient education materials/instructions and have verbalized understanding: Patient Education Materials: General Headache Without Cause Follow-up Instructions: With: Address: When: Ambrose Galaviz [address] [place] [address], [facility] [place] [address] Business (1) In 3 days [...] you develop any new or worsening symptoms. Patient Signature Date Clinician/Nurse Signature Date 06/05/2023 18:41:48 ED CLINICAL SUMMARY Observed: 06/05/2023 6:41 PM Status: C Source: [facility] REPOSITORY (Inserted Image. Unable to d isplay) [address] [address] ED Clinical Summary Person Information [facility]: [facility] Age[facility] 22 Years : 2000 Sex: Female Language: Cuban PCP: Ambrose Galaviz MD Marital Status: Single Visit Id: Visit [...] 06/05/2023 18:41:46 06/05/2023 18:41:46 06/05/2023 18:41:46 ADDRESS: [address] [place] [phone] [facility] NOTES: MEDICAL INFORMATION: Prescriptions Given: Medications to [...] Without Cause Follow up: With: Address: When: Ambrose Galaviz [address] [place] [address], [place] [address] Business (1) In 3 days [...] new or worsening symptoms. DIAGNOSIS: Headache; Nauseous U BETAHCG QUAL Collected: 5:28 PM Status: F Source: [facility] REPOSITORY TYPE CODE TESTS RESULT OUT OF RANGE REFERENCE UNITS LAB 2114-7(LOINC) CHORIOGONADO TROPIN.BETA SUBUNIT:SCNC :PT:URINE:QN : Negative Normal Performed By: #### [id number] #### [facility] [address] [place] [address] INFLUENZA A&B AG Collected: 4:52 PM Status: F Source: [facility] REPOSITORY TYPE CODE TESTS RESULT OUT OF RANGE REFERENCE UNITS LAB 18177112(LOINC ) Influenzae A Ag NEGATIVE Normal Negative LAB 90922932(LOINC ) Influenzae B Ag NEGATIVE Normal Negative Result Comment: Test sensiti vity and specificity vary for age group, specimen type, antigen types, and prevalence of disease. Test results must be evaluated in conjunction with other clinical data available to the physician. Individuals who received nasally administered Influenza A vaccine may have positive test results up to 3 days after vaccination. Performed By: #### [id number], [id number] #### [facility] [address] [place] [address] RAPID COVID ANTIGEN ([facility]) Collected: 4:52 PM Status: F Source: [facility] REPOSITORY TYPE CODE TESTS RESULT OUT OF RANGE REFERENCE UNITS LAB 83933-6([facility] ) SARS CORONAVIRUS+SA RS CORONAVIRUS 2 AG:PRTHR:PT:RE SPIRATORY SYSTEM SPECIMEN:ORD:I A.RAPID Not Detected Normal Not Detected Result Comment: [employer] Verit or? System for Rapid Detection of SARS-CoV-2 is [...] other viruses or pathogens; and, in the [facility], this test is only authorized for the duration of the declaration that circumstances exist justifying the authorization of emergency use of in vitro diagnostics for detection and/or diagnosis of the virus that causes COVID-19 under Section 564(b)(1) of the Act, 21 U.S.C. ? 360bbb- 3(b)(1), unless the authorization is terminated or revoked sooner. LAB CD:[id number] ([facility]) Rapid COV Int POS Ctl Pass Normal LAB CD:8291111714 ([facility]) Rapid COV Int NEG Ctl Pass Normal Performed By: #### [id number], [id number] #### [facility] [address] [place] [address] CT HEAD OR BRAIN W/O CONTRAST Observed: 06/05/2023 4:46 PM Status: F Source: [facility] REPOSITORY Exam Date/Time: 06/05/2023 17:02 EDT Reason for [...] Lind FINAL REPORT Dictated: 06/05/2023 5:12 pm Lalo Maurer DO Signed (Electronic Signature): 06/05/2023 5:12 pm Signed by: Lalo Maurer DO Transcribed by: KG Technologist: KIRSTIE CBC W/ AUTO DIFF Collected: 06/05/2023 4:41 PM Statu s: C Source: [facility] REPOSITORY TYPE CODE TESTS RESULT OUT OF RANGE REFERENCE UNITS LAB 98547-0([facility]) LEUKOCYTES 6.1 Normal 4.0-11.0 E9/L Result Comment: Collection d ate/time has been modified to: 16:41:00. Previous collection date/time: 16:48:00. [facility]89[facility] ERYTHROCYTES:NCN C:PT:BLD:QN:AUTO MATED COUNT 4.6 Normal 4.3-5.9 E12/L Result Comment: Collection d ate/time has been modified to: 16:41:00. Previous collection date/time: 16:48:00. [facility]18[facility] HEMOGLOBIN:MCNC: PT:BLD:QN: 12.8 Normal 12.0-16.0 gm/dL Result Comment: Collection d ate/time has been modified to: 16:41:00. Previous collection date/time: 16:48:00. LAB 4544-3([facility]) HEMATOCRIT:VFR:P T:BLD:QN:AUTOMAT ED COUNT 38.4 Normal 34.0-46.0 % Result Comment: Collection d ate/time has been modified to: 16:41:00. Previous collection date/time: 16:48:00. LAB 788-0([facility]) ERYTHROCYTE DISTRIBUTION WIDTH:RATIO:PT:R BC:QN:AUTOMATED COUNT 13.9 Normal 10.9-14.2 % Result Comment: Collection d ate/time has been modified to: 16:41:00. Previous collection date/time: 16:48:00. LAB 785-6([facility]) ERYTHROCYTE MEAN CORPUSCULAR HEMOGLOBIN:ENTMA SS:PT:RBC:QN:AUT OMATED COUNT 27.6 Normal 27.0-34.0 pg Result Comment: Collection d ate/time has been modified to: 16:41:00. Previous collection date/time: 16:48:00. LAB 786-4([facility]) ERYTHROCYTE MEAN CORPUSCULAR HEMOGLOBIN CONCENTRATION:MC NC:PT:RBC:QN:AUT OMATED COUNT 33.3 Normal 31.4-36.0 gm/dL Result Comment: Collection d ate/time has been modified to: 16:41:00. Previous collection date/time: 16:48:00. LAB 787-2([facility]) ERYTHROCYTE MEAN CORPUSCULAR VOLUME:ENTVOL:PT :RBC:QN:AUTOMATE D COUNT 82.7 Normal 80.0-100.0 fL Result Comment: Collection d ate/time has been modified to: 16:41:00. Previous collection date/time: 16:48:00. LAB 37584-1([facility]) PLATELET MEAN VOLUME:ENTVOL:PT :BLD:QN:AUTOMATE D COUNT 7.8 Normal 6.4-10.8 fL Result Comment: Collection d ate/time has been modified to: 16:41:00. Previous collection date/time: 16:48:00. LAB 777-3([facility]) PLATELETS:NCNC:P T:BLD:QN:AUTOMAT ED COUNT 271.0 Normal 150.0-500.0 E9/L Result Comment: Collection d ate/time has been modified to: 16:41:00. Previous collection date/time: 16:48:00. Performed By: #### [id number], [id number], [id number], [id number] #### [facility] [address] [place] [address] AUTO DIFF Collected: 3 4:41 PM Status: C Source: [facility] REPOSITORY Order Comment: Order Added b y Discern Expert. TYPE CODE TESTS RESULT OUT OF RANGE REFERENCE UNITS LAB 751-8([facility]) NEUTROPHILS: NCNC:PT:BLD: QN:AUTOMATED COUNT 70.1 Normal 36.0-75.0 % Result Comment: Collection d ate/time has been modified to: 16:41:00. Previous collection date/time: 16:48:00. LAB 731-0([facility]) LYMPHOCYTES: NCNC:PT:BLD: QN:AUTOMATED COUNT 19.4 Normal 14.0-50.0 % Result Comment: Collection d ate/time has been modified to: 16:41:00. Previous collection date/time: 16:48:00. LAB 742-7([facility]) MONOCYTES:NC NC:PT:BLD:QN :AUTOMATED COUNT 8.8 Normal 4.0-14.0 % Result Comment: Collection d ate/time has been modified to: 16:41:00. Previous collection date/time: 16:48:00. LAB 711-2([facility]) EOSINOPHILS: NCNC:PT:BLD: QN:AUTOMATED COUNT 1.0 Normal 0.0-8.0 % Result Comment: Collection d ate/time has been modified to: 16:41:00. Previous collection date/time: 16:48:00. LAB 704-7([facility]) BASOPHILS:NC NC:PT:BLD:QN :AUTOMATED COUNT 0.7 Normal 0.0-2.0 % Result Comment: Collection d ate/time has been modified to: 16:41:00. Previous collection date/time: 16:48:00. LAB 41342-3([facility]) NEUTROPHILS/ LEUKOCYTES:N FR.DF:PT:BLD :QN:AUTOMATE D COUNT 4.2 Normal 2.0-7.5 E9/L Result Comment: Collection d ate/time has been modified to: 16:41:00. Previous collection date/time: 16:48:00. LAB 20581-2([facility]) LYMPHOCYTES/ LEUKOCYTES:N FR.DF:PT:BLD :QN:AUTOMATE D COUNT 1.2 Normal 1.0-4.0 E9/L Result Comment: Collection d ate/time has been modified to: 16:41:00. Previous collection date/time: 16:48:00. LAB 56418-8([facility]) MONOCYTES/LE UKOCYTES:NFR .DF:PT:BLD:Q N:AUTOMATED COUNT 0.5 Normal 0.2-1.0 E9/L Result Comment: Collection d ate/time has been modified to: 16:41:00. Previous collection date/time: 16:48:00. LAB 77070-5([facility]) EOSINOPHILS/ LEUKOCYTES:N FR.DF:PT:BLD :QN:AUTOMATE D COUNT 0.1 Normal 0.0-0.5 E9/L Result Comment: Collection d ate/time has been modified to: 16:41:00. Previous collection date/time: 16:48:00. LAB 56972-4([facility]) BASOPHILS/LE UKOCYTES:NFR .DF:PT:BLD:Q N:AUTOMATED COUNT 0.0 Normal 0.0-0.2 E9/L Result Comment: Collection d ate/time has been modified to: 16:41:00. Previous collection date/time: 16:48:00. Performed By: #### [id number], [id number], [id number], [id number] #### [facility] [address] [place] [address] [facility] Collected: 3 4:41 PM Status: F Source: [facility] REPOSITORY TYPE CODE TESTS RESULT OUT OF RANGE REFERENCE UNITS LAB 2339-0([facility]) GLUCOSE:MCN C:PT:BLD:QN : 106 Normal 55-199 mg/dL Result Comment: If this gluc ose result represents a fasting glucose, interpretation should refer to the following reference range: 55-99 mg/dL LAB 3094-0([facility]) UREA NITROGEN:MC NC:PT:SER/P LAS:QN: 5 Normal 5-21 mg/dL LAB 2160-0([facility]) CREATININE: MCNC:PT:SER /PLAS:QN: 0.7 Normal 0.5-1.3 mg/dL LAB 3097-3([facility]) UREA NITROGEN/CR EATININE:MR TO:PT:SER/P LAS:QN: 7 Low 10-20 No Units LAB 64177-5([facility]) CALCIUM:MCN C:PT:SER/PL :QN: 9.3 Normal 8.9-11.1 mg/dL LAB 2951-2([facility]) SODIUM:SCNC :PT:SER/HINA S:QN: 141 Normal 135-145 mmol/L LAB 2823-3([facility]) POTASSIUM:S CNC:PT:SER/ PLAS:QN: 3.9 Normal 3.5-5.3 mmol/L LAB 2075-0([facility]) CHLORIDE:SC NC:PT:SER/P LAS:QN: 110 Normal 101-111 mmol/L LAB 8-9([facility]) CARBON DIOXIDE:SCN C:PT:SER/PL :QN: 26 Normal 21-31 mmol/L LAB 74513-9([facility]) ANION GAP:SCNC:PT :SER/PLAS:Q N: 9 Normal 6-16 mEq/L Performed By: #### [id number], [id number], [id number], [id number] #### [facility] [address] [place] [address] EGFR Collected: 4:41 PM Status: F Source: [facility] REPOSITORY Order Comment: Order added b y Discern Expert. TYPE CODE TESTS RESULT OUT OF RANGE REFERENCE UNITS LAB 97780-6(LOINC) GLOMERULAR FILTRATION RATE/1.73 SQ M.PREDICTED.NO N BLACK:ARVRAT:P T:SER/PLAS/BLD :QN:CREATININE -BASED FORMULA (MDRD) 126 Normal >=59 mL/min/1. 73 m2 Result Comment: Chronic kidn ey disease could be indicated at eGFR's of less than 60 mL/min/1.73m2. Kidney failure is indicated at less than 15 mL/min/1.73m2. Performed By: #### [id number], [id number], [id number], [id number] #### [facility] [address] [place] [address] ED NOTE-PHYSICIAN Observed: 06/05/2023 4:31 PM Status: F Source: [facility] REPOSITORY Basic Information Time Seen: Diogo TEE, Víctor [...] and Complexity of Problems Differential Diagnosis: [] [facility] Data External documents reviewed: Not applicable My [...] eGFR Influenza A&B Ag Rapid COVID Antigen ([facility]) U Beta Hcg Qual Disposition Plan Patient Discharge Condition Stable Discharge Disposition To home Discharge Prescription List Prescriptions No active prescription medications Follow-up With When Contact Information Ambrose Galaviz In 3 days 06/08/2023 EDT [address] [place] [phone] Business (1) Additional Instructions: Call the office [...] you develop any new or worsening symptoms. Patient Education General Headache Without Cause Attestation Patient seen and evaluated by the physician assistant professor of nursing. Attending physician was present in the emergency department and supervised care. This visit was performed by both the physician and an APC. I performed all aspects of the MDM as documented. This report was transcribed using voice recognition software. Every effort was made to ensure accuracy, however, inadvertently computerized recycler mistakes may be present. Appropriate healthcare PPE was used in evaluating this patient. The patient was placed in a mask. The healthcare provider was wearing mask, gloves, and utilizing proper hand hygiene. All equipment was properly cleansed Problem List/Past Medical History Ongoing Historical None Procedure/Surgical History None. Medications Inpatient diphenhydrAMINE 50 mg/mL Inj, 25 mg= 0.5 mL, IV Push, Once metoclopramide 5 mg/mL Inj, 10 mg= 2 mL, IV Push, Once ondansetron 4 mg/2 mL Inj, 4 mg= 2 mL, IV Push, Once Home amoxicillin, 500 mg promethazine 12.5 mg oral tablet, 12.5 mg= 1 tab(s), Oral, q8hr, PRN, Not taking Reglan 10 mg Tab, 10 mg= 1 tab(s), Oral, q6hr, Not taking Zofran ODT 4 mg Tab-Dis, 4 mg= 1 tab(s), Oral, q6hr, PRN Allergies No Known Allergies Social History Alcohol - Denies Alcohol Use, 12/16/2015 Current, 1-2 times per month, 06/05/2023 Employment/School - Not employed or in school, 11/25/2022 Exercise - Does not exercise, 11/25/2022 Substance Abuse - Denies Substance Abuse, 12/16/2015 Tobacco - Denies Tobacco Use, 12/16/2015 Household tobacco concerns: Yes., 12/16/2015 Lab Results WBC: 6.1 E9/L (06/05/23 16:41:00) RBC: 4.6 E12/L (06/05/23 16:41:00) HGB: 12.8 gm/dL (06/05/23 16:41:00) Hct: 38.4 % (06/05/23 16:41:00) MCV: 82.7 fL (06/05/23 16:41:00) MCH: 27.6 pg (06/05/23 16:41:00) MCHC: 33.3 gm/dL (06/05/23 16:41:00) RDW: 13.9 % (06/05/23 16:41:00) Platelet: 271 E9/L (06/05/23 16:41:00) MPV: 7.8 fL (06/05/23 16:41:00) Neutro Auto: 70.1 % (06/05/23 16:41:00) Lymph Auto: 19.4 % (06/05/23 16:41:00) Dane Auto: 8.8 % (06/05/23 16:41:00) Eos Auto: 1 % (06/05/23 16:41:00) Basophil Auto: 0.7 % (06/05/23 16:41:00) Neutro Absolute: 4.2 E9/L (06/05/23 16:41:00) Lymph Absolute: 1.2 E9/L (06/05/23 16:41:00) Dane Absolute: 0.5 E9/L (06/05/23 16:41:00) Eos Absolute: 0.1 E9/L (06/05/23 16:41:00) Basophil Absolute: 0 E9/L (06/05/23 16:41:00) Glucose Lvl: 106 mg/dL (06/05/23 16:41:00) BUN: 5 mg/dL (06/05/23 16:41:00) Creatinine: 0.7 mg/dL (06/05/23 16:41:00) eGFR: 126 mL/min/1.73 m2 (06/05/23 16:41:00) BUN/Creat Ratio: 7 Low (06/05/23 16:41:00) Sodium Lvl: 141 mmol/L (06/05/23 16:41:00) Potassium Lvl: 3.9 mmol/L (06/05/23 16:41:00) Chloride: 110 mmol/L (06/05/23 16:41:00) CO2: 26 mmol/L (06/05/23 16:41:00) AGAP: 9 mEq/L (06/05/23 16:41:00) Calcium Lvl: 9.3 mg/dL (06/05/23 16:41:00) U beta hCG Ql: Negative (06/05/23 17:28:00) Influenzae A Ag: NEGATIVE1 (06/05/23 16:52:00) Influenzae B Ag: NEGATIVE1 (06/05/23 16:52:00) Rapid COVID Ag: Not Detected (06/05/23 16:52:00) Rapid COV Int NEG Ctl: Pass (06/05/23 16:52:00) Rapid COV Int POS Ctl: Pass (06/05/23 16:52:00) Diagnostic Results CT Head or Brain w/o Contrast 06/05/23 17:15:06 IMPRESSION: NO ACUTE INTRACRANIAL PROCESS. EXAMINATION: CT [...] as reasonably achievable. Ordering Provider: Víctor Lind Signed By: Lalo Maurer DO Result Comment: Electronical ly Signed By: Víctor Lind PA-C\.br\Date and Time Signed: 06/05/23 18:29 EDT\.br\Electronically Co-Signed By: Fercho Jaime DO\.br\Date and Time Co-Signed: 06/05/23 19:40 EDT CONSENT FOR TREATMENT Observed: 06/05/20 3:21 PM Status: F Source: [facility] REPOSITORY [id number] CULT,URINE Observed: 03/23/2023 10:06 PM Status: F Source: [facility] REPOSITORY Specimen Description .URINE, MIDSTREAM Culture NO SIGNIFICANT GROWTH Report Status FINAL 03/25/2023 Performed By: #### [facility] #### [email or web address] [address] [place] [address] Hydro Plant Operator: Kiko Ortega MD [facility] [address] [place] [address] Hydro Plant Operator: Iván Chirinos MD URINALYSIS, ROUTINE Collected: 03/23/20 10:02 PM Status: F Source: [facility] REPOSITORY TYPE CODE TESTS RESULT OUT OF RANGE REFERENCE UNITS LAB UCO(LOINC) Color Yellow YEL LAB UTU([facility]) Clarity, Urine Clear CLEAR LAB UGL(LOINC) Glucose,Semi- qnt,Ur NEGATIVE NEG mg/dL LAB UBI([facility]) Bilirubin, SemiQt,Ur NEGATIVE NEG LAB UKE([facility]) Ketones, Urine TRACE Abnormal NEG mg/dL LAB USG([facility]) Spec. [place],Ur 1.015 1.005-1.030 LAB [facility] Blood, Urine NEGATIVE NEG LAB [facility] PH,Ur 6.5 5.0-8.0 LAB UPR([facility]) Protein, Semi-qnt,Ur TRACE Abnormal NEG mg/dL LAB UUR([facility]) Urobilinogen, Ur Normal 0.0-1.0 EU/dL LAB UNI([facility]) Nitrite,Ur NEGATIVE NEG LAB ULE([facility]) Leukocyte Esterase 1+ Abnormal NEG LAB UCOMM([facility]) Comment Performed By: #### CHET, U A #### [facility] [address] [place] [address] Hydro Plant Operator: Iván Chirinos MD URINALYSIS,MICRO Collected: 10:02 PM Status: F Source: [facility] REPOSITORY TYPE CODE TESTS RESULT OUT OF RANGE REFERENCE UNITS LAB UWBC([facility]) Urine WBC's 0 TO 2 0 /HPF LAB URBC([facility]) Urine RBC's 0 TO 2 0-2 /HPF LAB BACT([facility]) Bacteria RARE Abnormal NONE LAB SPACER([facility]) ----- Performed By: #### CHET, U A #### [facility] [address] [place] [address] Hydro Plant Operator: Iván Chirinos MD CBC WITH DIFF Collected: 01/03/2023 7:58 AM Status: F Source: [facility] REPOSITORY TYPE CODE TESTS RESULT OUT OF RANGE REFERENCE UNITS LAB WBC([facility]) WBC Count 8.3 4.5-13.5 k/uL LAB RBC(INC) RBC Count 3.63 Low 4.0-5.2 m/uL LAB HGB(LOINC) Hemoglobin 11.2 Low 12.0-16.0 g/dL LAB HCT(LOINC) Hematocrit 32.8 Low 36-46 % LAB MCV(LOINC) MCV 90.4 80-100 fL LAB MCH(LOINC) MCH 30.8 26-34 pg LAB MCHC(LOINC) MCHC 34.0 31-37 g/dL LAB RDW(LOINC) RDW 13.1 12.1-15.2 % LAB PLT(LOINC) Platelet Count 239 140-450 k/uL LAB DIFFA(LOINC) Auto Diff Performed YES LAB SEG(LOINC) Neutrophil (Seg) 66 47-75 % LAB LYM(LOINC) Lymphocyte 23 15-40 % LAB MON(LOINC) Monocyte 9 High 4-8 % LAB EO(LOINC) Eosinophil 2 0-5 % LAB BASO(LOINC) Basophil 0 0-2 % LAB ASEG(LOINC) Abs.Neutrophil (Seg) 5.40 2.5-7.0 k/uL LAB ALYM(LOINC) Abs. Lymph 1.90 1.0-4.8 k/uL LAB AMONO(LOINC) Abs. Monocyte 0.80 0.0-1.0 k/uL LAB AEO(LOINC) Abs. Eosinophil 0.20 0.0-0.4 k/uL LAB ABASO(LOINC) Abs. Basophil 0.00 0.0-0.2 k/uL Performed By: #### GLUSC, CD P #### [facility] [address] [place] [address] Hydro Plant Operator: Iván Chirinos MD GLUCOSE MONA SCR 50G Collected: 01/03/2023 7:[address] atus: F Source: [facility] REPOSITORY TYPE CODE TESTS RESULT OUT OF RANGE REFERENCE UNITS LAB TYPET(LOINC) Glu Administered via Glucola LAB GLUS(LOINC) Glucose,Mona Scr 50g 98 70-135 mg/dL Performed By: #### GLUSC, CD P #### [facility] [address] [place], [place] [id number] Hydro Plant Operator: Iván Chirinos MD ALLERGIES DATE TYPE / CODE NAME / CODE REACTION SEVERITY SOURCE /[id number](SNOMED CT) No Known Allergies [facility] ENCOUNTERS ADMIT/DISCHARGE ACCOUNT NUMBER ADMITTING ENCOUNTER CLASS LOCATION SOURCE 12/14/2023/12/14/19 24 [id number] Emergency Building:WED Room: 05Bed: 05 [facility] 11/27/2023/11/27/19 24 [id number] Ambulatory Building:NOM S BCP OB [facility] EPIC 11/14/2023/11/14/19 24 [id number] [facility] 11/13/2023/11/13/19 24 [id number] Emergency Building:[place] Room: 03Bed: 03 [facility] 11/13/2023/11/13/19 24 [id number] Ambulatory Building:NOM S [facility] EPIC 10/16/2023/10/16/19 24 [id number] Ambulatory Building:NOM S [facility] EPIC 09/08/2023/09/08/19 24 [id number] [facility]: Ex-ABed: 01 [facility] 06/05/2023/06/05/20 23 [id number] [facility]: ED-12Bed: CD:[id number] [facility] 04/05/2023/04/05/20 23 [id number] Emergency Building:[place] Room: 10Bed: 10 [facility] 03/23/2023/03/23/20 23 [id number] Emergency Building:WED Room: 08Bed: 08 [facility] 01/03/2023/01/04/20 23 [id number] Ambulatory Building:WLA B [facility] PAYERS ENCOUNTER GUARANTOR PAYER SUBSCRIBER SOURCE 12/14/2023 ALFREDA CHANGB: [id number] [place], [place] [address]Cpu: () Primary Insurance:[facility] PLANPolicy Number: [id number] Date:2017-05-25[address] [place] [address]ZK: ALFREDA CHANGB: [id number] [place], [place] [address]Lbh: (HP) (WP) [facility] 11/27/2023 ALFREDA PIERSONB: [place], [place] [address]Ylo: (HP) Primary Insurance:[facility] MEDICAIDPolicy Number: [id number] Date:2022-12-23 ALFREDA PIERSONB: [id number] [place] [address] [facility] EPIC 11/14/2023 Primary Insuranc e:Self PayPolicy Number: Effective Date:2023-11-14 [facility]/2023 ALFREDA JIKERENB: [place], [place] [address]Bhi: (HP) Primary Insurance:[facility] PLANPolicy Number: [id number] Date:2017-05-25P.OMaricarmen MAY [address] [place] [address]JF: ALFREDA PIERSONB: [id number] [place], [place] [address]Ppx: (HP) (WP) [facility] 11/13/2023 ALFREDA Kellogg BAUTISTAKERENB: [place], [place] [address]Xij: (HP) Primary Insurance:[facility] MEDICAIDPolicy Number: [id number] Date:2022-12-23 ALFREDA PIERSONB: [id number] [place] [address] [facility] EPIC 10/16/2023 ALFREDA Kellogg BAUTISTAKERENB: [place], [place] [address]Klp: (HP) Primary Insurance:[facility] MEDICAIDPolicy Number: [id number] Date:2022-12-23 ALFREDA Kellogg [facility]: [id number] [place] [address] [facility] 09/08/2023 ALFREDA CHANGB: [facility] RDTel: (HP) Primary Insurance:[facility] Number: [id number] Date:[id number] [place] [address]KI: ALFREDA Kellogg [facility] 06/05/2023 ALFREDA Kellogg FLINTB: MELE RDTel: (HP) Primary Insurance:[facility] Number: [id number] Date:[id number] [place] [address]FW: ALFREDA Kellogg [facility] 04/05/2023 ALFREDA FLINTDOB: [place], [place] [address]Omw: (HP) Primary Insurance:[employer] Number: [id number] Date:2017-05-25[address] [place] [address]MA: ALFREDA FLINTDOB: [id number] [place], [place] [address]Xbn: (HP) () [facility] 03/23/2023 ALFREDA FLINTDOB: [place], [place] [address]Aah: (HP) Primary Insurance:[employer] Number: [id number] Date:2017-05-[address] [address]WJ: ALFREDA PIERSONB: [id number] [place], [place] [address]Ysx: (HP) (WP) [facility] 01/03/2023 ALFREDA JIKERENB: [place], [place] [address]Jxg: (HP) [facility]: [id number] Date:2017-05-25[address] [place] [address]ND: ALFREDA PIERSONB: [id number] [place], [place] [address]Spe: (HP) (WP) [facility]
[2024-01-01 01:10] LABS: Influenza Virus A Antigen Negative; Influenza Virus B Antigen Negative
[2024-01-01 01:11] LABS: Internal Control Within Normal Limits; Respiratory Syncytial Virus Not Detected (NOT DETECTE); SARS-CoV-2 Ag NEGATIVE (NEGATIVE)
--- NOTE | 2024-01-01 01:17 | ED.URI1 ---
HPI - URI/Sore Throat General Chief Complaint: Upper Respiratory Infection Stated Complaint: stuffy nose Time Seen by Provider: 01/01/24 01:05 History of Present Illness HPI Narrative: This 23-year-old female presents for evaluation of several days of sneezing and coughing. She has not had a fever. She states that 2-3 days ago she also had nausea and vomiting. She has not had any diarrhea. She denies the possibility of . She states that she had surgery at the end of November after having demise of twin pregnancies. She denies that she is having any vaginal discharge or odor or itching right now when she denies the possibility of . She has no chest pain or shortness of breath. She has not taken any medications prior to arrival. She does have an 8-month-old at home who is not sick. She denies any dysuria or hematuria. Related Data Allergies Allergy/AdvReac Type Severity Reaction Status Date / Time No Known Drug Allergies Allergy Verified 01/01/24 00:44 Review of Systems ROS Status of ROS 10 or more systems reviewed and unremarkable except as noted in history and below PFSH [facility] Medical History (Updated 01/01/24 @ 02:58 by Lotus Pak MD) Anxiety ?F41.9 - Anxiety disorder, unspecified (ICD-10) Hemorrhoids affecting or puerperium with complication Surgical History (Updated 04/16/23 @ 01:48 by Shaye Bowman) [place] teeth removed ?K08.409 - Partial loss of teeth, unspecified cause, unspecified class (ICD-10) Family History (Updated 11/14/23 @ 11:44 by Angelita Moseley) Mother Family history of stroke Other Family history of diabetes mellitus Social History (Updated 11/14/23 @ 11:43 by Angelita Moseley) Within the past year, how often did you have a drink containing alcohol: never Score interpretation: A score less than 3 is consistent with normal alcohol consumption. Smoking status: Never smoker Non-prescribed substance use: denies use Highest level of school completed/degree received: high school graduate Exam Narrative Exam Narrative: Nurses note and vital signs reviewed and patient is not hypoxic. General: The patient appears well and in no apparent distress. Patient is resting comfortably on cart. Skin: Warm, dry, no pallor noted. There is no rash noted. Head: Normocephalic, atraumatic Eye: Normal conjunctiva, no drainage, EOMI. PERRL Ears, Nose, Mouth, and Throat: oral mucosa is moist.No pharyngeal erythema or exudate noted. There is white postnasal drip with posterior pharyngeal cobblestoning. There is no swelling of the tongue, uvula or pharyngeal soft tissues. There is audible nasal congestion. Clear rhinorrhea. Cardiovascular: Regular Rate and Rhythm S1S2 Respiratory: Patient is in no distress, no accessory muscle use, lungs are clear to auscultation, no wheezing, rales or rhonchi, Occasional moist cough noted Back: non-tender, no CVA tenderness bilaterally to percussion. GI: Normal bowel sounds, no tenderness to palpation, no masses appreciated. No rebound, guarding, or rigidity noted. Musculoskeletal: The patient has no evidence of calf tenderness, no pitting edema, symmetrical pulses noted bilaterally Neurological: A&O x4, normal speech Psychiatric: Cooperative Constitutional Vital Signs, click to edit/add: Last Vital Signs Temp 98.2 F 01/01/24 00:42 Pulse 81 01/01/24 00:42 Resp 16 01/01/24 00:42 BP 116/72 01/01/24 00:42 Pulse Ox 99 01/01/24 00:42 Course Vital Signs Vital signs: Vital Signs Temperature 98.2 F 01/01/24 00:42 Pulse Rate 81 01/01/24 00:42 Respiratory Rate 16 01/01/24 00:42 Blood Pressure 116/72 01/01/24 00:42 Pulse Oximetry 99 01/01/24 00:42 Temperature 98.2 F 01/01/24 00:42 Pulse Rate 81 01/01/24 00:42 Respiratory Rate 16 01/01/24 00:42 Blood Pressure 116/72 01/01/24 00:42 Pulse Oximetry 99 01/01/24 00:42 MDM - URI/Sore Throat MDM Narrative Medical decision making narrative: This otherwise healthy 23-year-old female presents for evaluation of coughing and sneezing with nasal congestion. She has no chest pain or shortness of breath. She has not had a fever. Several days ago she had nausea and vomiting. She denies the possibility of . Her physical exam was benign, there is no pharyngeal swelling or erythema. Her lungs were clear, abdomen is soft. She is not having any nausea or vomiting at this time. She denies history of seasonal allergies. She tested negative for influenza, RSV and COVID-19. Urinalysis is negative for infection. X-ray of the chest and abdomen was ordered. There is no sign of pneumonia. Nonspecific bowel gas pattern with signs of enteritis was noted on the abdominal x-ray. The results of these findings were discussed with her. She will be discharged home at this time. I explained to her that her symptoms are likely viral in nature. She was encouraged to drink plenty of fluids, use usja-nwz-[id number] cough cold and allergy medications and return to the emergency department as needed for ongoing or worsening symptoms. Medical Records Medical records narrative: EXAM: XR acute abdomen series HISTORY: cough, lower abd pain COMPARISON: None. TECHNIQUE: PA chest with supine and upright views of abdomen and pelvis. FINDINGS: Both lungs are well aerated, expanded and clear with well-defined pleural margins. Normal heart size and vasculature. Normal thoracic osseous structures. Scattered air-fluid levels throughout nondistended large bowel from cecum to rectosigmoid with a few air-filled nondistended small bowel loops throughout the mid abdomen also demonstrating some air-fluid levels. Suspected ileus with secretory fluid/diarrhea. No distended bowel loops or obvious obstruction. No free air. No opaque calculi. No organomegaly. Psoas shadows are well-defined. Normal abdominal and pelvic osseous structures and joints. IMPRESSION: 1. Nonspecific bowel gas pattern favoring fluid throughout nondistended small and large bowel likely from nonspecific enteritis or gastroenteritis causing these changes and probable mild ileus. Follow-up clinically. Repeat imaging if not resolving or improving with conservative management. 2. Negative chest. Electronically authenticated by: JB FLOWERS Date: 01/01/2024 03:11 Lab Data Labs: Lab Results 01/01/24 01/01/24 Range/Units 00:45 01:55 Urine Color Lt. yellow (YELLOW) Urine Clarity Clear (CLEAR) Urine pH 6.5 (5.0-9.0) Ur Specific [place] <=1.005 A (1.005-1.025) Urine Protein Negative (NEG/TRACE) mg/dL Urine Glucose (UA) Negative (NEGATIVE) mg/dL Urine Ketones Negative (NEGATIVE) mg/dL Urine Occult Blood Negative (NEGATIVE) Urine Nitrite Negative (NEGATIVE) Urine Bilirubin Negative (NEGATIVE) Urine Urobilinogen 1.0 (0.2-1.0) EU/dL Ur Leukocyte Esterase Negative (NEGATIVE) Urine RBC 0-2 (0-2) #/HPF Urine WBC None seen (NONE SEEN) #/HPF Ur Squamous Epith Cells Many A (NONE/RARE) #/LPF Urine Crystals None seen (None Seen) #/HPF Urine Bacteria None seen (NONE SEEN) #/HPF Urine Casts None seen (NONE SEEN) #/LPF Urine Mucus None seen (NONE SEEN) Ur Culture Indicated? No Urine HCG, Qual Negative (NEGATIVE) Influenza Type A Ag Negative Influenza Type B Ag Negative RSV Antigen Not detected (NOT DETECTE) SARS-CoV-2 Ag (CV2AG) Negative (NEGATIVE) Discharge Plan Discharge Stand Alone Forms: Portal Instructions Chief Complaint: Upper Respiratory Infection Clinical Impression: Upper respiratory infection, Viral infection Patient Disposition: Home, Self-Care Time of Disposition Decision: 02:56 Condition: Good Print Language: Maltese Instructions: Upper Respiratory Infection (ED), Viral Syndrome (ED) Referrals: Delfin Galaviz MD [Primary Care Provider] - 1 week Discharge Date/Time: 01/01/24 03:14
[2024-01-01] MEDS: ACETAMINOPHEN 325 MG TABLET 650 MG PO (01:33)
[2024-01-01 02:03] LABS: Bilirubin Urine NEGATIVE (NEGATIVE); Blood Urine NEGATIVE (NEGATIVE); Clarity Urine CLEAR (CLEAR); Color Urine LT. YELLOW (YELLOW); Glucose Urine UA NEGATIVE (NEGATIVE); Ketones Urine NEGATIVE (NEGATIVE); Leukocyte Esterase Urine NEGATIVE (NEGATIVE); Nitrite Urine NEGATIVE (NEGATIVE); Protein Urine NEGATIVE (NEG/TRACE); Specific Gravity Urine <=1.005 (1.005-1.025); pH Urine 6.5 (5.0-9.0)
[2024-01-01 02:04] LABS: HCG Qualitative Urine* NEGATIVE (NEGATIVE)
--- NOTE | 2024-01-01 02:08 | XR_ITS ---
The [address] [address] Patient Name: ROQUE PIERSON MRN: [id number] date: 2000 Sex: F Assigned Patient Location: ER Current Patient Location: ED.MAIN Accession/Order Number: [id number] Exam Date: 01/01/2024 02:17 Report Date: 01/01/2024 03:11 At the request of: JAY MARKER Procedure: XR acute abdomen series EXAM: XR acute abdomen series HISTORY: cough, lower abd pain COMPARISON: None. TECHNIQUE: PA chest with supine and upright views of abdomen and pelvis. FINDINGS: Both lungs are well aerated, expanded and clear with well-defined pleural margins. Normal heart size and vasculature. Normal thoracic osseous structures. Scattered air-fluid levels throughout nondistended large bowel from cecum to rectosigmoid with a few air-filled nondistended small bowel loops throughout the mid abdomen also demonstrating some air-fluid levels. Suspected ileus with secretory fluid/diarrhea. No distended bowel loops or obvious obstruction. No free air. No opaque calculi. No organomegaly. Psoas shadows are well-defined. Normal abdominal and pelvic osseous structures and joints. XR/XR acute abdomen series IMPRESSION: 1. Nonspecific bowel gas pattern favoring fluid throughout nondistended small and large bowel likely from nonspecific enteritis or gastroenteritis causing these changes and probable mild ileus. Follow-up clinically. Repeat imaging if not resolving or improving with conservative management. 2. Negative chest. Electronically authenticated by: JB FLOWERS Date: 01/01/2024 03:11
[2024-01-01 02:17] LABS: Bacteria Urine NONE SEEN #/HPF (NONE SEEN); Cast Seen? NONE SEEN #/LPF (NONE SEEN); Crystals Seen? None Seen #/HPF (None Seen); Mucus Urine NONE SEEN (NONE SEEN); RBC Urine 0-2 #/HPF (0-2); Squamous Epithelial Cell Urine MANY #/LPF (NONE/RARE); Urine Culture Indicated NO; WBC Urine NONE SEEN #/HPF (NONE SEEN)
== END 2024-01-01 03:14 | disposition home or self-care (01) ==
PROVIDERS: Emergency Provider Emergency Medicine; PCP Family Medicine
DX: B34.9 Viral infection, unspecified (principal); J06.9 Acute upper respiratory infection, unspecified; Z20.822 Contact with and (suspected) exposure to COVID-19
CPT/HCPCS: 74022; 81001; 84703; 86308; 87420; 87804; 87811; 87880; 99284

== ENCOUNTER 2024-01-12 22:25 | Outpatient (REF) | payer OTHER, SELFPAY ==
--- OUTSIDE RECORDS SUMMARY | 2024-01-12 22:41 | XMS_ITS | CCD ---
Author Organization [facility] Care Team Providers Care Supervisor Hardboard Name Role Phone NOE LIMA Unavailable Unavailable Ambrose Urbano MD Primary Care Provider Ambrose Urbano MD Primary Care Provider [phone] Ambrose Urbano MD Primary Care Provider [phone] Ambrose Urbano Primary Care Physician Ambrose Urbano MD Primary Care Provider [phone] CHRISTY ., NOE Consulting Unavailable REQUEST, DR GALDINO LISTED Primary Care Unavaila ble CHRISTY ., NOE Attending Unavailable CHRISTY ., NOE Admitting Unavailable KEIRA ., DR DA SILVA Consulting Unavailable HOY ., DR BOGGS Primary Care Unavailable KEIRA ., DR DA SILVA Attending Unavailable KEIRA ., DR DA SILVA Admitting Unavailable CHRISTY ., NOE Consulting Unavailable HOY ., DR BOGGS Primary Care Unavailable CHRISTY ., NOE Attending Unavailable CHRISTY ., NOE Admitting Unavailable KEIRA ., DR DA SILVA Consulting Unavailable HOY ., DR BOGGS Primary Care Unavailable KEIRA ., DR DA SILVA Attending Unavailable KEIRA ., DR DA SILVA Admitting Unavailable HOY ., DR BOGGS Primary Care Unavailable KEIRA ., DR DA SILVA Attending Unavailable KEIRA ., DR DA SILVA Admitting Unavailable HOY ., DR BOGGS Primary Care Unavailable CHRISTY ., NOE Attending Unavailable CHRISTY ., NOE Admitting Unavailable KEIRA ., DR DA SILVA Consulting Unavailable HOY ., DR BOGGS Primary Care Unavailable KEIRA ., DR DA SILVA Attending Unavailable KEIRA ., DR DA SILVA Admitting Unavailable HOY ., DR BOGGS Consulting Unavailable HOY ., DR BOGGS Primary Care Unavailable HOY ., DR BOGGS Attending Unavailable DINAY ., DR BOGGS Admitting Unavailable LAURA GONZALEZ Consulting Unavailable YOLIE ., DR BOGGS Primary Care Unavailable LAURA GONZALEZ Attending Unavailable LAURA GONZALEZ Admitting Unavailable KEIRA ., DR DA SILVA Consulting Unavailable HOY ., DR BOGGS Primary Care Unavailable KEIRA ., DR DA SILVA Attending Unavailable KEIRA ., DR DA SILVA Admitting Unavailable ALFRED BERGERON Unavailable HOY ., DR BOGSG Primary Care Unavailable KEIRA ., DR DA SILVA Attending Unavailable KEIRA ., DR DA SILVA Admitting Unavailable KEIRA ., DR DA SILVA Consulting Unavailable Shawn Wilson Attending Unavailable Shawn Wilson Admitting Unavailable Kei Moore Attending Unavailable Alfredito Brennan Attending Unavailable Coleman Ludwig Attending Unavailable Alyssa, DO Sissy Maldonado Attending Unavailable Fercho Jaime Attending Unavailable Alyssa, DO Sissy Maldonado Attending Unavailable JULIUS CROCKETT Attending Unavailable JULIUS CROCKETT Attending Unavailable AMBROSE URBANO Primary Care Unavailable AMBROSE URBANO Primary Care Unavailable Julius Crockett Attending Provider [phone] Julius Crockett Attending Unavailable Julius Crockett Admitting Unavailable NOE HARRISON Referring Unavailable AMBROSE URBANO Primary Care Unavailable AMBROSE URBANO Primary Care Unavailable MORGAN FALK Attending Unavailable AMBROSE URBANO Primary Care Unavailable DAVID SILVA Attending Unavailable Medications Current Medications Medication Drug [...] oral solution (1 source) alpha-Adrenergic Agonist, Uncompetitive Z-auyxmv-N-aspartat e Receptor Antagonist, Sigma-1 Agonist Start: 09-08-2023 End: 09-15-2023 take 10 mL by mouth four times daily for cough and congestion Bromfed DM oral syrup 10 mL, Oral, QID for cough and congestion for 7 day(s), 280 mL, Refill(s) 0, [facility] #16, 175, cm, 09/08/23 11:11:00 EST, Height/Length [...] q6hr, # 14 tab(s), Refills(s) 0, Pharmacy: [facility] #16, 173, cm, 09/08/22 1:24:00 EST, Height/Length [...] Problem Classification Problem Date Documented Date Episodic/Chronic Abdominal pain (3 sources) Finding of sensation of abdomen; Translations: [Unspecified abdominal pain] Onset: 07-12-2022 Episodic Chronic obstructive pulmonary disease and bronchiectasis (1 source) Bronchitis; Translations: [Bronchitis, not specified as acute or chronic] Onset: 09-08-2023 Episodic Disorders of teeth and jaw (3 sources) Toothache; Translations: [Other specified disorders of teeth and supporting structures] Episodic Fluid and electrolyte disorders (2 sources) Dehydration; Translations: [Dehydration] Episodic Headache; including migraine (1 source) Headache; Translations: [Headache, unspecified] Onset: 06-05-2023 Episodic Immunizations and screening for infectious disease (2 sources) Encounter for screening for human papillomavirus (HPV); Translations: [Contact with and (suspected) exposure to infections with a predominantly sexual mode of transmission] Onset: 11-15-2022 Episodic Menstrual disorders (8 sources) Irregular menstruation, unspecified; Translations: [Excessive and frequent menstruation with irregular cycle] Onset: 02-15-2022 Chronic Nausea and vomiting (5 sources) Nausea and vomiting; Translations: [Nausea with [...] , unspecified, unspecified trimester] Onset: 08-29-2022 Episodic Residual codes; unclassified (1 source) 10 weeks gestation of ; Translations: [10 WEEKS GESTATION OF ] Onset: 09-25-2022 Episodic Skin and subcutaneous tissue infections (1 source) Cellulitis of right upper limb; Translations: [Cellulitis of right upper limb] Episodic Spontaneous (1 source) Complete or unspecified spontaneous without complication; Translations: [Complete or unspecified spontaneous without complication] Onset: 11-13-2023 Episodic Unclassified (1 source) Other specified diseases and conditions complicating ; Translations: [Other specified diseases and conditions complicating ] Onset: 03-23-2023 Urinary tract infections (1 source) Urinary tract infection, site not specified; Translations: [Urinary tract infection, site not specified] Onset: 12-14-2023 Episodic Past or Other Problems Problem Classification Problem Date Documented Da te Episodic/Chronic Genitourinary symptoms and ill-defined conditions (1 source) Bacteriuria; Translations: [Bacteriuria] Onset: 03-23-2023 Episodic Hemorrhoids (1 source) Residual hemorrhoidal skin tags; Translations: [Residual hemorrhoidal skin tags] Onset: 04-05-2023 Episodic Other infections (1 source) Enterobiasis; Translations: [Enterobiasis] Onset: 06-02-2017 Episodic Other screening for suspected conditions (not mental disorders or infectious disease) (15 sources) test negative; Translations: [Encounter for test, result negative] Onset: 11-07-2022 Episodic Unclassified (4 sources) Onset: 11-25-2022 Resolved: 06-25-2023 11-25-2022 Results Test Name Value Interpretation Reference Range Facility Cult,Urineon 12-15-2023 Cult,Urine Specimen Description .URINE, MIDSTREAM Culture NO SIGNIFICANT GROWTH Report Status FINAL 12/15/2023 Normal [facility] Comment on above: Performed By: #### U RC #### [facility] [address] [place] [address] Configuration Management Analyst: Kiko Ortega MD [facility] [address] [place] [address] Configuration Management Analyst: Alfred Chirinos MD Urinalysis, Routineon 2023 Bilirubin, SemiQt,Ur Negative Normal NEG [facility] Comment on above: Performed By: #### U A, UMICAO #### [facility] [address] [place] [address] Configuration Management Analyst: Alfred Chirinos MD Blood, Urine Negative Normal NEG [facility] Comment on above: Performed By: #### U A, UMICAO #### [facility] [address] [place] [address] Configuration Management Analyst: Alfred Chirinos MD Clarity (U) Clear Normal CLEAR [facility] Comment on above: Performed By: #### U A, UMICAO #### [facility] [address] [place] [address] Configuration Management Analyst: Alfred Chirinos MD Color (U) Yellow Normal YEL [facility] Comment on above: Performed By: #### U A, UMICAO #### [facility] [address] [place], [place] [id number] Configuration Management Analyst: Alfred Chirinos MD Comment Normal [facility] Comment on above: Performed By: #### U A, UMICAO #### [facility] [address] [place], [place] [id number] Configuration Management Analyst: Alfred Chirinos MD Glucose Ql (U) Negative Normal NEG [facility] Comment on above: Performed By: #### U A, UMICAO #### [facility] [address] [place], [place] [id number] Configuration Management Analyst: Alfred Chirinos MD Ketones Ql (U) Negative Normal NEG [facility] Comment on above: Performed By: #### U A, UMICAO #### [facility] [address] [place], [place] [id number] Configuration Management Analyst: Alfred Chirinos MD Leukocyte esterase Test strip Ql (U) 2+ Abnormal NEG [facility] Comment on above: Performed By: #### U A, UMICAO #### [facility] [address] [place], [place] [id number] Configuration Management Analyst: Alfred Chirinos MD Nitrite,Ur Negative Normal NEG [facility] Comment on above: Performed By: #### U A, UMICAO #### [facility] [address] [place], [place] [id number] Configuration Management Analyst: Alfred Chirinos MD PH,Ur 6.0 Normal 5.0-8.0 [facility] Comment on above: Performed By: #### U A, UMICAO #### [facility] [address] [place], [place] [address] Configuration Management Analyst: Alfred Chirinos MD Protein Ql (U) TRACE Abnormal NEG [facility] Comment on above: Performed By: #### U A, UMICAO #### [facility] [address] [place], [place] [address] Configuration Management Analyst: Alfred Chirinos MD Spec. Fraser,Ur 1.015 Normal 1.005-1.030 [facility] Comment on above: Performed By: #### U A, UMICAO #### [facility] [address] [place], [place] [id number] Configuration Management Analyst: Alfred Chirinos MD Urobilinogen,Ur Normal Normal 0.0-1.0 [facility] Comment on above: Performed By: #### U A, UMICAO #### [facility] [address] [place] [address] Configuration Management Analyst: Alfred Chirinos MD Urinalysis,Microon 4 ----- Normal [facility] Comment on above: Performed By: #### U A, CHRISO #### [facility] [address] [place] [address] Configuration Management Analyst: Alfred Chirinos MD Epithelial cells LM Ql (Urine sed) 0 TO 2 Normal [facility] Comment on above: Performed By: #### U A, CHRISO #### [facility] [address] [place], [place] [address] Configuration Management Analyst: Alfred Chirinos MD Urine RBC's 0 TO 2 Normal 0-2 [facility] Comment on above: Performed By: #### U A, CHRISO #### [facility] [address] [place] [address] Configuration Management Analyst: Alfred Chirinos MD Urine WBC's 2 TO 5 Normal 0 [facility] Comment on above: Performed By: #### U A, UMICAO #### [facility] [address] [place] [id number] Configuration Management Analyst: Alfred Chirinos MD Aramis 11-14-2023 L Specimen: [id number] Received: 11/17/23 Status: SOUT Rephi Num: [id number] Spec Type: Surgical Subm Dr: Julius Crockett Tissues: A Products of Conception - Spontaneous or Missed (POC) Procedures: HE/3, Gross/Micro L4 Age/ Patient Sex Location Account Attending Physician Roque Pierson LABELL [id number] Julius Crockett SPEC NUM: [id number] RECD: 11/17/23 STATUS: SAEED GARCIAPhi NUM: [id number] IAN: 11/14/[address]: Julius Crockett ENTERED: 11/17/[address] [facility] DR: Palmer,Lab SPEC TYPE: Surgical DEPT: LEENA ZAVALETA ORDERED: [...] are identified. Membranes and decidua are identified.. Shop Technician sections are submitted in three cassettes labeled A1-A3. CPT Codes 17087 Specimen: [id number] Received: 11/17/23 Status: DAYNALibia Trevino Num: [id number] Spec Type: Surgical Subm Dr: Julius Crockett Tissues: A Products of Conception - Spontaneous or Missed (POC) Procedures: HE/3, Gross/Micro L4 Patient: Roque Pierson [id number] (Continued) Signed (signature on file) Patience Rae MD 11/18/23 1429 Normal [facility] Auto Diffon 06-05-2023 Basophils/100 WBC (Bld) 0.7 % Normal 0.0-2.0 [facility] Comment on above: Order Comment: Order Added by Discern Expert. Result Comment: Ian ection date/time has been modified to: 16:41:00. Previous collection date/time: 16:48:00. Performed By: #### 2 559707, [id number], 7580552, [id number] ####[facility] [address] [place] [address] Basophils/Leukocytes Auto (Bld) [Pure # fraction] 0.0 E9/L Normal 0.0-0.2 [facility] Comment on above: Order Comment: Order Added by Discern Expert. Result Comment: Ian ection date/time has been modified to: 16:41:00. Previous collection date/time: 16:48:00. Performed By: #### 2 000076, [id number], 0737550, 7243489 ####[facility] [address] [place] [address] Eosinophils/100 WBC (Bld) 1.0 % Normal 0.0-8.0 [facility] Comment on above: Order Comment: Order Added by Discern Expert. Result Comment: Ian ection date/time has been modified to: 16:41:00. Previous collection date/time: 16:48:00. Performed By: #### 2 023596, [id number], 9288084, 2611277 ####[facility] [address] [place] [address] Eosinophils/Leukocyte s Auto (Bld) [Pure # fraction] 0.1 E9/L Normal 0.0-0.5 [facility] Comment on above: Order Comment: Order Added by Discern Expert. Result Comment: Ian ection date/time has been modified to: 16:41:00. Previous collection date/time: 16:48:00. Performed By: #### 2 657444, 77477941, 6811060, 1395557 ####[facility] [address] [place] [address] Lymphocytes/100 WBC (Bld) 19.4 % Normal 14.0-50.0 [facility] Comment on above: Order Comment: Order Added by Discern Expert. Result Comment: Ian ection date/time has been modified to: 16:41:00. Previous collection date/time: 16:48:00. Performed By: #### 2 722104, 36558137, 8425146, 8428620 ####[facility] [address] [place] [address] Lymphocytes/Leukocyte s Auto (Bld) [Pure # fraction] 1.2 E9/L Normal 1.0-4.0 [facility] Comment on above: Order Comment: Order Added by Discern Expert. Result Comment: Ian ection date/time has been modified to: 16:41:00. Previous collection date/time: 16:48:00. Performed By: #### 2 391159, 91374131, 7583402, 5852313 ####[facility] [address] [place] [address] Monocytes/100 WBC (Bld) 8.8 % Normal 4.0-14.0 [facility] Comment on above: Order Comment: Order Added by Discern Expert. Result Comment: Ian ection date/time has been modified to: 16:41:00. Previous collection date/time: 16:48:00. Performed By: #### 2 065787, 25355009, 6882610, 3041087 ####[place] [address] [place] [address] Monocytes/Leukocytes Auto (Bld) [Pure # fraction] 0.5 E9/L Normal 0.2-1.0 [facility] Comment on above: Order Comment: Order Added by Discern Expert. Result Comment: Ian ection date/time has been modified to: 16:41:00. Previous collection date/time: 16:48:00. Performed By: #### 2 446181, 15578959, 0183927, 0853961 ####[place] [address] [place] [address] Neutrophils/100 WBC (Bld) 70.1 % Normal 36.0-75.0 [facility] Comment on above: Order Comment: Order Added by Discern Expert. Result Comment: Ian ection date/time has been modified to: 16:41:00. Previous collection date/time: 16:48:00. Performed By: #### 2 111487, 91169201, 7555835, 1525989 ####[address] [address] Neutrophils/Leukocyte s Auto (Bld) [Pure # fraction] 4.2 E9/L Normal 2.0-7.5 [facility] Comment on above: Order Comment: Order Added by Discern Expert. Result Comment: Ian ection date/time has been modified to: 16:41:00. Previous collection date/time: 16:48:00. Performed By: #### 2 397047, 22607062, 1465067, 0277381 ####[facility] [address] [place] [address] BMPon 06-05-2023 Creatinine [Mass/Vol] 0.7 mg/dL Normal 0.5-1.3 [facility] Comment on above: Performed By: #### 2 329531, 89682802, 7145485, 4694559 ####[facility] [address] [place] [address] Urea nitrogen [Mass/Vol] 5 mg/dL Normal 5-21 [facility] Comment on above: Performed By: #### 2 903756, 03030417, 3190717, 7097364 ####[facility] [address] [place] [address] Urea nitrogen/Creatinine [Mass ratio] 7 No Units Low 10-20 [facility] Comment on above: Performed By: #### 2 768130, 24643640, 3354919, 3090856 ####[facility] [address] [facility] [place] [address] Anion gap [Moles/Vol] 9 mmol/L Normal 6-16 [facility] Comment on above: Performed By: #### 2 883211, 68886681, 4162996, 6446388 ####[facility] [address] [place] [address] Calcium [Mass/Vol] 9.3 mg/dL Normal 8.9-11.1 [facility] Comment on above: Performed By: #### 2 978161, 40873303, 1541313, 1866847 ####[facility] [address] [place] [address] Chloride [Moles/Vol] 110 mmol/L Normal 101-111 [facility] Comment on above: Performed By: #### 2 190259, 43380725, 6896004, 8214256 ####[facility] [address] [place] [address] CO2 [Moles/Vol] 26 mmol/L Normal 21-31 [facility] Comment on above: Performed By: #### 2 281944, 75152517, 6589299, 9554596 ####[facility] [address] [place] [address] Glucose [Mass/Vol] 106 mg/dL Normal 55-199 [facility] Comment on above: Result Comment: If t his glucose result represents a fasting glucose, interpretation should refer to the following reference range: 55-99 mg/dL Performed By: #### 2 633718, 50379544, 1595724, 7816385 ####[facility] [address] [place] [address] Potassium [Moles/Vol] 3.9 mmol/L Normal 3.5-5.3 [facility] Comment on above: Performed By: #### 2 882108, 10366302, 7233711, 3439540 ####[facility] [address] [place] [address] Sodium [Moles/Vol] 141 mmol/L Normal 135-145 [facility] Comment on above: Performed By: #### 2 484832, 84225438, 7479415, 7147000 ####[facility] [address] [place] [address] CBC w/ Auto Diffon 3 Erythrocyte distribution width (RBC) [Ratio] 13.9 % Normal 10.9-14.2 [facility] Comment on above: Result Comment: Ian ection date/time has been modified to: 16:41:00. Previous collection date/time: 16:48:00. Performed By: #### 2 535254, 90577365, 1113467, 1465224 ####[facility] [address] [place] [address] Hematocrit (Bld) [Volume fraction] 38.4 % Normal 34.0-46.0 [facility] Comment on above: Result Comment: Ian ection date/time has been modified to: 16:41:00. Previous collection date/time: 16:48:00. Performed By: #### 2 842442, 40057084, 5258703, 1412371 ####[facility] [address] [place] [address] Hemoglobin (Bld) [Mass/Vol] 12.8 g/dL Normal 12.0-16.0 [facility] Comment on above: Result Comment: Ian ection date/time has been modified to: 16:41:00. Previous collection date/time: 16:48:00. Performed By: #### 2 509977, 42141502, 4406835, 0559412 ####[facility] [address] [place] [address] MCH (RBC) [Entitic mass] 27.6 pg Normal 27.0-34.0 [facility] Comment on above: Result Comment: Ian ection date/time has been modified to: 16:41:00. Previous collection date/time: 16:48:00. Performed By: #### 2 849126, 00288103, 1594980, 6374537 ####[facility] [address] [place] [address] MCHC (RBC) [Mass/Vol] 33.3 g/dL Normal 31.4-36.0 [facility] Comment on above: Result Comment: Ian ection date/time has been modified to: 16:41:00. Previous collection date/time: 16:48:00. Performed By: #### 2 556027, 22111168, 3614105, 7428020 ####[facility] [address] [place] [address] MCV (RBC) [Entitic vol] 82.7 fL Normal 80.0-100.0 [facility] Comment on above: Result Comment: Ian ection date/time has been modified to: 16:41:00. Previous collection date/time: 16:48:00. Performed By: #### 2 122889, 08136721, 1193828, 0122665 ####[facility] [address] [place] [address] Platelet mean volume (Bld) [Entitic vol] 7.8 fL Normal 6.4-10.8 [facility] Comment on above: Result Comment: Ian ection date/time has been modified to: 16:41:00. Previous collection date/time: 16:48:00. Performed By: #### 2 430288, 67762784, 1108124, 4922894 ####[facility] [address] [place] [address] Platelets (Bld) [#/Vol] 271.0 E9/L Normal 150.0-500.0 [facility] Comment on above: Result Comment: Ian ection date/time has been modified to: 16:41:00. Previous collection date/time: 16:48:00. Performed By: #### 2 218684, 52413633, 0361960, 0300951 ####[facility] [address] [place] [address] RBC (Bld) [#/Vol] 4.6 E12/L Normal 4.3-5.9 [facility] Comment on above: Result Comment: Ian ection date/time has been modified to: 16:41:00. Previous collection date/time: 16:48:00. Performed By: #### 2 805210, 36887186, 7912079, 8058755 ####[facility] [address] [place] [address] WBC corrected for nucl RBC Auto (Bld) [#/Vol] 6.1 E9/L Normal 4.0-11.0 [facility] Comment on above: Result Comment: Ian ection date/time has been modified to: 16:41:00. Previous collection date/time: 16:48:00. Performed By: #### 2 997732, 99249834, 4108311, 2155347 ####[facility] [address] [place] [address] CHEMISTRYOrdered By: SYSTEM SYSTEM on 06-05-2023 Anion gap [Moles/Vol] 9 mmol/L Normal 6 - 16 mEq/L [facility] Calcium [Mass/Vol] 9.3 mg/dL Normal 8.9 - 11. 1 mg/dL [facility] Chloride [Moles/Vol] 110 mmol/L Normal 101 - 1 11 mmol/L [facility] CO2 [Moles/Vol] 26 mmol/L Normal 21 - 31 mmol/L [facility] Creatinine [Mass/Vol] 0.7 mg/dL Normal 0.5 - 1.3 mg/dL [facility] GFR/1.73 sq M.predicted among non-blacks MDRD (S/P/Bld) [Vol rate/Area] 126 mL/min/1.73 m2 Normal >=59mL/min/1. 73 m2 [facility] Comment on above: Interpretive Data: [...] 3.9 mmol/L Normal 3.5 - 5.3 mmol/L [facility] Sodium [Moles/Vol] 141 mmol/L Normal 135 - 145 mmol/L [facility] Urea nitrogen [Mass/Vol] 5 mg/dL Normal 5 - 21 mg/dL [facility] Urea nitrogen/Creatinine [Mass ratio] 7 mg/mg Low 10 - [address] [facility] [address] Head or Brain w/o Contras [...] DO Transcribed by: KG Technologist: KIRSTIE Andrea [facility] Consent for Treatmenton 05-25 Consent for Treatment [id number] #1.00TIFF [facility] Discharge Instructionson Discharge Instructions [id number] #1.00TIFF [facility] ED Clinical Summaryon 2022 ED Clinical Summary [place] [id number] ED Clinical Summary Person Information Name: ROQUE PIERSON[place] Age: 22 Years : 2000 Sex: Female Language: Ukrainian PCP: Ambrose Urbano MD Marital Status: Single Visit Id: [...] 18:41:46 06/05/2023 18:41:46 06/05/2023 18:41:46 AD[address]: [id number] [facility] [place] [id number] PHYS DOC NOTES: MEDICAL INFORMATION: Prescriptions Given: [...] Cause Follow up: With: Address: When: Ambrose Urbano [address] [place] [address], [facility] [place] [address] Business (1) In 3 days [...] or worsening symptoms. DIAGNOSIS: Headache; Nauseous Normal [facility] ED Note-Physicianon 06-05-20 ED Note-Physician Basic Information [...] and Complexity of Problems Differential Diagnosis: [] [facility] Data External documents reviewed: Not applicable My [...] eGFR Influenza A&B Ag Rapid COVID Antigen ([facility]) U Beta Hcg Qual Disposition Plan Patient Discharge Condition Stable Discharge Disposition To home Discharge Prescription List Prescriptions No active prescription medications Follow-up With When Contact Information Ambrose Urbano In 3 days 06/08/2023 EDT [address] [phone]- Business (1) Additional Instructions: Call the office [...] or worsening (more content not included)... Normal [facility] Comment on above: Result Comment: Elec tronically [...] with your condition: Managing pain ? Take jtlf-xxp-axhixrq and prescription medicines only as told by [...] Reviewed: 01/09/2022 Elsevier Patient Education ? 2022 [employer]vier Inc. Normal [facility] ED Patient Summaryon 023 ED Patient Summary [place] [id number] Patient Discharge Instructions Person Information Name: ROQUE PIERSON Age: 22 Years Arrival Date: 06/05/2023 15:20:08 Discharge Diagnosis: Headache; Nauseous Primary Care Physician: Ambrose Urbano MD Provider Information Primary Provider: Fercho Jaime DO Advanced Financial Writer:Víctor Lind PA-C The exam and treatment you received in the Emergency Department were for an urgent problem and are not intended as complete care. It is important that you follow up with a doctor, nurse practitioner, or physician?s expanded duty dental assistant for ongoing care. If your symptoms become worse or you do not improve as expected and you are unable to reach your usual health care provider, you should return to the Emergency Department. We are available 24 hours a day. ROQUE PIERSON has been given the following list of patient education materials, prescriptions and follow-up instructions: Follow-up Instructions: With: Address: When: Ambrose Urbano [address] [place] [address], [facility] [address] [place] [phone] Business (1) In 3 days 06/08/2023 Comments: [...] opioids can be used to help relieve tdmbotda-gg-xcgkul pain and are often prescribed following a [...] ? Safe (more content not included)... Normal [facility] HEMATOLOGYOrdered By: SYSTEM SYSTEM on 06-05-2023 Basophils/100 WBC (Bld) 0.7 % Normal 0.0 - 2.0 % [facility] [employer] Comment on above: Result Comment: Ian [...] 6.1 E9/L Normal 4.0 - 11.0 E9/L [facility] Comment on above: Result Comment: Ian ection date/time has been modified to: 16:41:00. Previous collection date/time: 16:48:00. Influenza A&B Agon 10-12-202 3 Influenzae A Ag Negative Normal Negative [facility] Comment on above: Performed By: #### 2 [id number], [id number], 0159254, [id number], [id number], [id number], [id number] #### [facility] [address] [place] [address] Influenzae B Ag Negative Normal Negative [facility] Comment on above: Result Comment: Test sensitivity and specificity vary for age group, specimen type, antigen types, and prevalence of disease. Test results must be evaluated in conjunction with other clinical data available to the physician. Individuals who received nasally administered Influenza A vaccine may have positive test results up to 3 days after vaccination. Performed By: #### 2 [id number], [id number], 1543274, [id number], [id number], 8151888, [id number] #### [facility] [address] [place] [address] MICRO OTHER TESTSOrdered By: Kirsten Faustin on 06-05-2023 Influenzae A Ag Negative (06/05/23 4:52 PM) Normal Negative [facility] Influenzae B Ag Negative 1 (06/05/23 4:52 PM) Normal Negative [facility] Comment on above: Interpretive Data: T [...] NEG Ctl Pass (06/05/23 4:52 PM) Normal [facility] Man Sero Rapid COV Int POS Ctl Pass (06/05/23 4:52 PM) Normal [facility] SARS-CoV+SARS-CoV-2 (COVID-19) Ag IA.rapid Ql (Resp) Not Detected 24 (06/05/23 4:52 PM) Normal Not Detected [facility] Man [facility]ero Comment on above: Interpretive Data: T he [employer] Veritor System for Rapid Detection of SARS-CoV-2 [...] terminated or revoked sooner. Rapid COVID Antigen ([facility])on 06-05-2023 Rapid COV Int NEG Ctl Pass Normal [facility] Comment on above: Performed By: #### 2 [id number], [id number], 7028428, 6294517, [id number], 1745143, [id number] #### [facility] [address] [place] [address] Rapid COV Int POS Ctl Pass Normal [facility] Comment on above: Performed By: #### 2 011411, 3078436, 8264083, 4785624, 70459129, 1323654, 8412011 #### [facility] [address] [place] [address] SARS-CoV+SARS-CoV-2 (COVID-19) Ag IA.rapid Ql (Resp) Not detected Normal Not Detected [facility] Comment on above: Result Comment: The [employer]? System for Rapid Detection of SARS-CoV-2 is [...] other viruses or pathogens; and, in the RUST, this test is only authorized for the duration of the declaration that circumstances exist justifying the authorization of emergency use of in vitro diagnostics for detection and/or diagnosis of the virus that causes COVID-19 under Section 564(b)(1) of the Act, 21 U.S.C. ? 360bbb-3(b)(1), unless the authorization is terminated or revoked sooner. Performed By: #### 2 [id number], 2917100, 3210333, 8608698, 38421292, 1258926, 2772523 #### [facility] [address] [place] [address] SEROLOGYOrdered By: Kirsten amor on 06-05-2023 HCG.beta subunit (U) [Moles/Vol] Negative Normal [facility] Man Sero U BetaHcg Qualon 06-05-2023 HCG.beta subunit (U) [Moles/Vol] Negative Normal [facility] Comment on above: Performed By: #### 2 [id number], 0435603, 9978698, 9747813, 11583743, 2166964, 9901042 #### [facility] [address] [place] [address] eGFRon 06-05-2023 GFR/1.73 sq M.predicted among non-blacks MDRD (S/P/Bld) [Vol rate/Area] 126 mL/min/1.73 m2 Normal >=59 [facility] Comment on above: Order Comment: Order added by Discern Expert. Result Comment: Retail Sales Manager emil kidney disease could be indicated at eGFR's of less than 60 mL/min/1.73m2. Kidney failure is indicated at less than 15 mL/min/1.73m2. Performed By: #### 2 [id number], [id number], 7149145, [id number] ####[facility] [id number] [place] [address] Cult,Urineon 03-25-2023 Cult,Urine Specimen Description .URINE, MIDSTREAM Culture NO SIGNIFICANT GROWTH Report Status FINAL 03/25/2023 Normal [facility] Comment on above: Performed By: #### U RC #### [facility] [address] [place] [address] Configuration Management Analyst: Kiko Ortega MD [facility] [address] [place] [address] Configuration Management Analyst: Alfred Chirinos MD Urinalysis, Routineon 2022 Bilirubin, SemiQt,Ur Negative Normal NEG [facility] Comment on above: Performed By: #### U MICAO, UA #### [facility] [address] [place] [address] Configuration Management Analyst: Alfred Chirinos MD Blood, Urine Negative Normal NEG [facility] Comment on above: Performed By: #### U MICAO, UA #### [facility] [address] [place], [place] [id number] Configuration Management Analyst: Alfred Chirinos MD Clarity (U) Clear Normal CLEAR [facility] Comment on above: Performed By: #### U MICAO, UA #### [facility] [address] [place], [place] [id number] Configuration Management Analyst: Alfred Chirinos MD Color (U) Yellow Normal YEL [facility] Comment on above: Performed By: #### U MICAO, UA #### [facility] [address] [place], [place] [id number] Configuration Management Analyst: Alfred Chirinos MD Comment Normal [facility] Comment on above: Performed By: #### U MICAO, UA #### [facility] [address] [place], [place] [id number] Configuration Management Analyst: Alfred Chirinos MD Glucose Ql (U) Negative Normal NEG [facility] Comment on above: Performed By: #### U MICAO, UA #### [facility] [address] [place], [place] [id number] Configuration Management Analyst: Alfred Chirinos MD Ketones Ql (U) TRACE Abnormal NEG [facility] Comment on above: Performed By: #### U MICAO, UA #### [facility] [address] [place], [place] [id number] Configuration Management Analyst: Alfred Chirinos MD Leukocyte esterase Test strip Ql (U) 1+ Abnormal NEG [facility] Comment on above: Performed By: #### U MICAO, UA #### [facility] [address] [place], [place] [id number] Configuration Management Analyst: Alfred Chirinos MD Nitrite,Ur Negative Normal NEG [facility] Comment on above: Performed By: #### U MICAO, UA #### [facility] [address] [place], [place] [id number] Configuration Management Analyst: Alfred Chirinos MD PH,Ur 6.5 Normal 5.0-8.0 [facility] Comment on above: Performed By: #### U TONYO, UA #### [facility] [address] [place], [place] [id number] Configuration Management Analyst: Alfred Chirinos MD Protein Ql (U) TRACE Abnormal NEG [facility] Comment on above: Performed By: #### U TONYO, UA #### [facility] [address] [place], [place] 678[address] Configuration Management Analyst: Alfred Chirinos MD Spec. Fraser,Ur 1.015 Normal 1.005-1.030 [facility] Comment on above: Performed By: #### U ALLISON UA #### [facility] [address] [place], [place] [id number] Configuration Management Analyst: Alfred Chirinos MD Urobilinogen,Ur Normal Normal 0.0-1.0 [facility] Comment on above: Performed By: #### U ALLISON UA #### [facility] [address] [place], [place] [id number] Configuration Management Analyst: Alfred Chirinos MD Urinalysis,Microon 3 ----- Normal [facility] Comment on above: Performed By: #### U TONYO, UA #### [facility] [address] [place], [place] [id number] Configuration Management Analyst: Alfred Chirinos MD Bacteria RARE Abnormal NONE [facility] Comment on above: Performed By: #### U TONYO, UA #### [facility] [address] [place], [place] [id number] Configuration Management Analyst: Alfred Chirinos MD Urine RBC's 0 TO 2 Normal 0-2 [facility] Comment on above: Performed By: #### U MICAO, UA #### [facility] [address] [place], [place] [id number] Configuration Management Analyst: Alfred Chirinos MD Urine WBC's 0 TO 2 Normal 0 [facility] Comment on above: Performed By: #### U TONYO, UA #### [facility] [address] [place], [place] [id number] Configuration Management Analyst: Alfred Chirinos MD CBC with Diffon 01-03-2023 Abs. Basophil 0.00 k/uL Normal 0.0-0.2 [facility] Comment on above: Performed By: #### G IMELDA, CDP #### [facility] [address] [place] [address] Configuration Management Analyst: Alfred Chirinos MD Abs.Neutrophil (Seg) 5.40 k/uL Normal 2.5-7.0 [facility] Comment on above: Performed By: #### G IMELDA, CDP #### [facility] [address] [place], [place] 848[address]90 Configuration Management Analyst: Alfred Chirinos MD Auto Diff Performed YES Normal [facility] Comment on above: Performed By: #### G IMELDA, CDP #### [facility] [address] [place], [place] [id number] Configuration Management Analyst: Alfred Chirinos MD Basophils/100 WBC (Bld) 0 % Normal 0-2 [facility] Comment on above: Performed By: #### G LUMONAE, CDP #### [facility] [address] [place], [place] [id number] Configuration Management Analyst: Alfred Chirinos MD Eosinophils (Bld) [#/Vol] 0.20 10*3/uL Normal 0.0-0.4 [facility] Comment on above: Performed By: #### G IMELDA, CDP #### [facility] [address] [place], [place] [id number] Configuration Management Analyst: Alfred Chirinos MD Eosinophils/100 WBC (Bld) 2 % Normal 0-5 [facility] Comment on above: Performed By: #### Jessy SEGURA CDP #### [facility] [address] [place] [address] Configuration Management Analyst: Alfred Chirinos MD Erythrocyte distribution width (RBC) [Ratio] 13.1 % Normal 12.1-15.2 [facility] Comment on above: Performed By: #### Jessy SEGURA, CDP #### [facility] [address] [place] [address] Configuration Management Analyst: Alfred Chirinos MD Hematocrit (Bld) [Volume fraction] 32.8 % Low 36-46 [facility] Comment on above: Performed By: #### Jessy SEGURA CDP #### [facility] [address] [place] [address] Configuration Management Analyst: Alfred Chirinos MD Hemoglobin (Bld) [Mass/Vol] 11.2 g/dL Low 12.0-16.0 [facility] Comment on above: Performed By: #### Jessy SEGURA CDP #### [facility] [address] [place] [address] Configuration Management Analyst: Alfred Chirinos MD Lymphocytes (Bld) [#/Vol] 1.90 10*3/uL Normal 1.0-4.8 [facility] Comment on above: Performed By: #### Jessy SEGURA, CDP #### [facility] [address] [place] [address] Configuration Management Analyst: Alfred Chirinos MD Lymphocytes/100 WBC (Bld) 23 % Normal 15-40 [facility] Comment on above: Performed By: #### Jessy SEGURA, CDP #### [facility] [address] [place] [address] Configuration Management Analyst: Alfred Chirinos MD MCH (RBC) [Entitic mass] 30.8 pg Normal 26-34 [facility] Comment on above: Performed By: #### G IMELDA, CDP #### [facility] [address] [place] [address] Configuration Management Analyst: Alfred Chirinos MD MCHC (RBC) [Mass/Vol] 34.0 g/dL Normal 31-37 [facility] Comment on above: Performed By: #### G IMELDA, CDP #### [facility] [address] [place] [address] Configuration Management Analyst: Alfred Chirinos MD MCV (RBC) [Entitic vol] 90.4 fL Normal 80-100 [facility] Comment on above: Performed By: #### Jessy SEGURA, CDP #### [facility] [address] [place] [address] Configuration Management Analyst: Alfred Chirinos MD Monocytes (Bld) [#/Vol] 0.80 10*3/uL Normal 0.0-1.0 [facility] Comment on above: Performed By: #### Jessy SEGURA, CDP #### [facility] [address] [place] [address] Configuration Management Analyst: Alfred Chirinos MD Monocytes/100 WBC (Bld) 9 % High 4-8 [facility] Comment on above: Performed By: #### Jessy ESGURA, CDP #### [facility] [address] [place] [address] Configuration Management Analyst: Alfred Chirinos MD Neutrophil (Seg) 66 % Normal 47-75 [facility] Comment on above: Performed By: #### Jessy SEGURA, CDP #### [facility] [address] [place] [address] Configuration Management Analyst: Alfred Chirinos MD Platelets (Bld) [#/Vol] 239 10*3/uL Normal 140-450 [facility] Comment on above: Performed By: #### G IMELDA, CDP #### [facility] [address] [place] [address] Configuration Management Analyst: Alfred Chirinos MD RBC (Bld) [#/Vol] 3.63 10*6/uL Low 4.0-5.2 [facility] Comment on above: Performed By: #### Jessy SEGURA, CDP #### [facility] [address] [place] [address] Configuration Management Analyst: Alfred Chirinos MD WBC (Bld) [#/Vol] 8.3 10*3/uL Normal 4.5-13.5 [facility] Comment on above: Performed By: #### Jessy SEGURA, CDP #### [facility] [address] [place] [address] Configuration Management Analyst: Alfred Chirinos MD Glucose Heather Scr 50gon 2022 Glucose [Mass/Vol] 98 mg/dL Normal 70-135 [facility] Comment on above: Performed By: #### Jessy SEGURA, CDP #### [facility] [address] [place] [address] Configuration Management Analyst: Alfred Chirinos MD Glu Administered via Glucola Normal [facility] Comment on above: Performed By: #### Jessy SEGURA, CDP #### [facility] [address] [place] [address] Configuration Management Analyst: Alfred Chirinos MD US PREG ANATOMY SINGLEon [...] JULIUS RICKS Date: 2022-12-08 22:36 Normal [facility] AFP MATERNAL FOR SPINA BIFID Aon 12-07-2022 AFP MoM 1.38 Normal [facility] Comment on above: Performed By: #### A FPMAT #### [facility] [address] [address] [address] Tasha Whalen AFP Value 88.5 ng/mL Normal [facility] Comment on above: Performed By: #### A FPMAT #### [facility] [address] [address] [address] Tasha Whalen AFP, Serum for Spina Bifida Report Normal [facility] Comment on above: Performed By: #### A FPMAT #### [facility] [address] [address] [address] Tasha Whalen Comment Comment Normal [facility] Comment on above: Result Comment: Nakia Lopez, Ph.D., [facility] Director . References: Available Upon Request. . Multiples Of Median Cutoffs For AFP Elevations Contreras 2.5 Black 2.8 IDD 2.0 Twins 4.5 Abbreviation Definitions IDD - Insulin Dep Diabetes OSBR - Open Spina Bifida Risk . For further inquiries contact [employer] at [phone]. . This test was developed and its performance characteristics determined by [employer]. It has not been cleared or approved by the Food and Drug Administration. Performed By: #### A FPMAT #### [facility] [address] [place] [address] Dr. Tasha Jackson Age Collection Date 21.0 weeks Normal [facility] Comment on above: Performed By: #### A FPMAT #### [facility] [address] [place] [address] Dr. Tasha Whalen Gestat, Age Based on Ultrasound Normal [facility] Comment on above: Result Comment: 17.0 on 11/07/2022 Recalculations are not recommended when gestational dating by LMP and ultrasound are within 10 days. Performed By: #### A FPMAT #### [facility] [address] [place] [address] Dr. Tasha Whalen Insulin Dep Diabetes No Normal [facility] Comment on above: Performed By: #### A FPMAT #### [facility] [address] [place] [address] Dr. Tasha Whalen Interpretation Comment Normal [facility] Comment on above: Result Comment: Inte [...] Customer Services to discuss available options. The [employer] recommends amniocentesis be offered to women age 35 and older. Performed By: #### A FPMAT #### [facility] [address] [place] [address] Dr. Tasha Whalen [age] Normal [facility] Comment on above: Performed By: #### A FPMAT #### [facility] [address] [place] [address] Dr. Tasha Whalen Multiple Gestation No Normal [facility] Comment on above: Performed By: #### A FPMAT #### [facility] [address] [address] [address] Tasha Whalen OSBR Risk 1 [place] 3810 Normal [facility] Comment on above: Performed By: #### A FPMAT #### [facility] [id number] Tasha Whalen PDF . [facility] Comment on above: Performed By: #### A FPMAT #### [facility] [id number] Tasha Whalen Race [facility] Comment on above: Performed By: #### A FPMAT #### [facility] [address] [address] [address] Tasha Whalen Test Results: Negative [facility] Comment on above: Performed By: #### A FPMAT #### [facility] [address] [address] [address] Tasha Whalen Coding Summary.on 12-03-2022 Coding Summary. CD:[id number] Ww+PGhlYWQ+FE7GBKXiY 12rjIPafI3hL7CKPMzMK ywgQVBQTElOSyIgbmFtZ O9edLWxJZLv IC8+DJ8aWUFqIgrktQEz a6B6mYL7G24jos7iSFrf iOK2EUGwOfWhqlbgz9jz pEx9DSreIpbeYvOq DHLubN74YSB2fR88Rx25 vGTyjOWhe2anaTq3HwWk ZOLmTOT8fHgzVUyjv9Fz SGYwF22abEIsu2L2 IGNvbGxhcHNlOyBlbXB0 dY9vCHejovzgg8kcvzdn Ltr2wz70mNKna9Y9aIO4 Q2DkhrQ8YNDxrVJv WhrwsOPDtW5jubxrf1kh cwvxOgStFSLmNTr2LAg4 QGTqfPzfUfVxYF81UCP7 CZXyhtVlF2HhDEQw iIptCvH6b8Y8Iy2VP5FG SxyfK9LAFBUZBCqpaGS+ MN35wz51W4BiUxbmInk9 XILaHLP9zMF2wD7c YBBfUAkol6W3rSC8L4Ln tkSing7ih3lrBWViKWgo R78kzEZax1X8PUPsfPX2 HFMbpGvvIvOxnK10 Oyc+OEHhbDcoj2GxKtpt z1vci6lrwKd6ZedfBAZz flCzcPabOEG1d4LqOo9x ULLpeIM6hFN6oL7t JaBpDzT9DWhhB029UkAy lNTxEzhwO59rE5EvhIU+ WZHgWwq7ERYrnOapVW9a X9DbQIEwzkwtkPRt gZvdNN3oNBSkzleyPDUb cT3eUMFaZ6v6FmQuAfC9 KCgvC0YlDJLyzpikQl29 qY3zFsSsHdJ1IXzx A8SrthS0LLRpjIWiGEbj UUD7V48lm8X0VYQkVHQp KJF7sYS6dX9imFkjjjcm bGVmdDsgdmVydGlj AShkMBnzG385ZNFhmCqd PkNvZGluZyBEYXRlOiAg MDQvMTEvMjAyMzwvdGQ+ MXNmUER4kJyhGGWg uRYjJPkqGm4hcVbrrBii MG0dOTAkvcumXKZljC5x MIBtdJEbtJgaSE7kKIJr nulgn398QvRlCGO4 YSFpdWCsX5JnfC4qLxEk PYObRMKpV8WqvKPdUGbv C761GRbtKsM6AAZtavGu B7HmWRMlgWgrBzG4 a5Y7Xt6Dx8JofrxqD1Hv eRZpEmVmXqkpWGc0A5Ax PjwvdHI+NH02EIRhQY12 EZq9OJA0kIcqDUmd DBSrD5SsiF9yUeFoIGWa ZGRkOyc+PHRhYmxlIHdp ZHRoPScxMDAlJyBzdHls EY5fNc7zBNYbORMy sGixyJMuPdXlq2ooAMVx EImsBB5nyIkxS5KitRH5 WJMal4a5Qb06S49eQ0Wi dXA+ILVfiOD6xPQ8 zK2tPlRqGgR8JYlkO117 CbRdnNOrZcugd3ghq2cl kKb5YtC7PRGacxQhaZfv IDC2k8AlDk58V61m IHdpZHRoPSIxNSUiIHZh uCyzgi2ytC8tUo5+PGNv fVH3tUI9zB0hYzIcZgB4 VKwyO159RjKhaWMh Booyh0vzi0ohnKm9DkHq XVLmudQyqLtkFIA8u3Ue Uf28L5VnbAuae6CjIgv2 uc63xDXxr0L1dBS3 E9HnQFUpwrxpfJAclTod UZ7hSCQjdjiyZGSwyT2s UHVxI7d6SsXzXuE0SWuy L6LmftV8WHPfoNQt LBLcuINAdX1foyzag4te zdjeBpMcASErJLf5TYz3 YADkoQqiDlAeSHV7BsS4 BZH6hSIacO0wuNgt ekqhsR1rWfw+JVG8uKZn cOJEEC9eSapbkUA+PHRk KOO3zJgdFPmaNCUdoF5h QHSkH6i4DfBqMsT4 KZzlQ1FxgfC3JZBuyNJd UIIzgENZeK3kuowfk8la nejyGyAvWZJuMKm6AMp1 LWFsaWduOiBsZWZ0 RtI8JTX1uLBxaF0lrXmq xxyzhV6aLmt+QmlydGgg KYX5OMd8T8KiUwk5ZVFl iMsjXP0vpDLdHAvz Bb4bePlyjNjaQS1wOZQi kiclb305HuBnv1ceLGAt uPApNAghEIH5U18fh3E9 ECKcOMCwRFB3aQI4 cD1ycKkrwqvztYQkpLlt eqSbsGyrPJkcCNywV710 CPAbaXzgDbZdSBu3F6Er Tri6XPYeiDlpKO8f kFFkSSamSr6dwDolpVtn SG5yVUDgbtwbl197DmSh r7rxAWJlsOYaXZikVSH6 A24ou5T5LXOvJMIg HNL7gVP0tI3zjFqixkwr bGVmdDsgdmVydGljYWwt TJuwP465BCUpiIcmIrUb kYg3E1DkGem1ELZu iTwkFW6lpSZpPDfgDc6k kBbvxSbjYA7aQCNzcqvt z736FbCqp2jyQELopOFz OEcsCGO1C87ez6V9 WOAyKOOfVDG8uUR1fO3v bGlnbjogbGVmdDsgdmVy aJtnNSzcENceI310QIBb cDsnPlBhdGllbnQg IUmcQWe0E6ZcEqhkuUD+ PA69PXReAA26nWWalDLd t8vncRn3NpLeDSAiHAX7 yAyuKBrdm2ZqVPKf W69vlPWuh5S3UHSnyPkc oWSiIfXtqPX0uY3nFZkw nwqef8nozpqrDcdbn0om tk89qC13Y47gEVdg ZHRoPSIzMCUiIHZhbGln xu5hgI3dFj2+PGNvbCB3 oMZ1vQ6yRGQwGgU2QDyt M244KdXrxFQnRybl n4fqo0iceVo6TgU5VUYg gfGvuDbvKSQ4s1GoSk79 C40qYEysZWPvONKcUQFl XGElcMnitv6xcX3c Ii8+KEBxzAD8nBW2wF1l ZyBgJgV3AGqsF900DzVl lVNnCjtvQ81bN7DhlIA+ MXDfSaq4QORpiPbs LC5tzVBmJTexMu8uQLS4 BbKmLxYjCUbaZ7UuRWHy ywntsjvvdEH4OWQgWJPz uN55Jy3izEnsLOCn zNMHvM2qbrxbu4rcdicd VrEmEKOqTYx6ZAd1OMSo kRzsXqJjHSL5YgW0LJN8 pFXvrW6twLzxaejh yS3yH4DxPOCqrruxYk22 qX1kHoZwSpY5RIhuXlp+ N5mHJ1DYLHFhLHNGWaRO TkEgTTwvdGQ+PHRk OZE0yIbmZIyjCACkxC7z LZMsA4l6MvSgImW0XEit N0MrEXDeazcmGy84aZ4x HgZdFmI9JXkmV5Cx voH8SIXliYPeIHtmGYG8 H81ix3B4FUAwHYUmXTX1 qJC0kI1gpTvvewqkuZKh dDsgdmVydGljYWwt UKjlK990LGBebMkiCgDn SfO7GrTfZCF1O6FrYta1 ODGgzPifYL2fbBBgQHyi Ea5twEmafGvgFE4n PEKsiwopMXOudM8pHAXv pSLsfUfwBJ4vLSMznhzv f609YmJjIWT9IQApoOGw J9VbsZ6hLsGxCTWh ECUpL7MwkZMcXRrqU262 PRyfGxL5FQPjxiSrZ1Mh FAJzdTsoDhY7z6L6Pv2f MSBZZWFyczwvdGQ+ VVIsKJS2gFlhIFrwIPGu xJ5zQCOiP4m4TdTzGmB4 PJsmA3XwIIVmmhtgTz49 nZ9cXmRuZhV4PXbl Y5OyptO9NAZrsNQcXYsn LHJ5E65oy3J7GEBtYGVc EWH9eKJ6pS8uoOyymibd bGVmdDsgdmVydGlj IZojQIvzU254DRWvxYrv PkZlbWFsZTwvdGQ+PHRk WRJ2uIrlOGbhNXEhlW7o JDJnB2x8GtUmUgY5 DKanC9ImMRIigcnqTa73 zZ2uDdVvWdT2LVecD2Qh qpD4PRDniFFpQMfoMOB3 H83rb1Q7PJDlTRWr PNI8kMM5cY6ebHwdennl bGVmdDsgdmVydGljYWwt FIpqC053MVVdjIwdFe7W IFRyaWFnZTwvdGQ+ KH93ar06W1SkJcapLas5 JPGfGGC4tGN5gW7mLXUu NPktb9O5rXU6K8HxzoPw mq2tm9mvDYGnNUwl E26hvGKpo1S3UCQcqOC4 PJFsoMofKkTixH89Wff+ YIAgkScgm8ViNqmqa6kx w4shfUa6YzRrVCQx jeCmjOckWBI5p1CmTa12 Q47oWKhhJEAlPNIcCVXj XQAlqFqypx4hoW9qVx1+ TWJdaXQ9zRB4dX3x GsTtQkS4HMcmB154PzEe mOYfYznkq3wbb5qkpIg6 IjIwJSIgdmFsaWduPSJ0 r6WtNx72R4UnrYnt h9UjXtu5mj86eCHbj4U8 mZV5A7QzORKfpvpulECl uCbuTN2jPBTrigiwNVGi sN9oNVLpU8e9ZmWu UyU0MCkdF5GmsqA4VOFs zWQjIFBnhNNSnI5ogoiv h3tvukduWzBiXNLqPVy6 QVr9DILmgBtxDlRm HWZ2XtY5DCV5cBLhfC4a rTvzlupshO2dNbu+UGh5 a0uscDYyRN2xtCM5XJ27 MR58bBEce8D1sPM4 C3TrOIQcinydshjqyOB3 JOJvZKIuzY95Xt5mhVeu Qy6bAEUfTOC6WJMmzDLc N2ZwjA6bGoKtYGKt HYHbW5VvpEVeLIboD060 MAurMxA0FIIrpwKrD9Pv KDSreNejKsM0p8U5Wn3A JA90VZ82QI91jJHx z6K9lHF5T6NeAHOulwyt xtqqlLL8JPUaBNGijO81 Nu4jwMwzSw6mMEYyXJT5 IKMczBMvU1XpeY4r SxOcTOIlNHBvZ1TggHGu DMkwT881HQbwOhP2KZYf hgZxW5PbRFAyyQxkKhD6 a1C0Eg6ODd56TG72 NA10hOZdz9U4pFA6S0Hp FPZaweshcqivpUO5ASZk PJQpiL19Hm9ujDieRs5m VUPcHKI0CBNnvXUw U2ByhK3xNeJpMIZqMVHi K4LpoIHbNVnsA193GCjs MnD2AAFvqnQdB6UbTOKj oYvzNqG0d2W0Cc9Z OSenxwh1A6ZnRcjhkGC+ IJ17EAIiSD93sNJapUEv n6anzSs7AfKsNRNiEBK7 tBidRUdxw9DoKZPe G38ygJQp (more content not included)... Normal [facility] Nursing Assessmenton 023 Nursing Assessment [id number] 3#1.00CD:127 Normal [facility] Discharge Instructionson Discharge Instructions [id number] 0#1.00CD:127 Normal [facility] Inpatient Clinical Summaryon 11-26-2022 Inpatient Clinical Summary [address] [address] Clinical Summary Person Information Name: ROQUE PIERSON Maribel/[facility] Age: 22 Years : 2000 Sex: Female PCP: Ambrose Urbano MD Marital Status: Single Race: White Ethnicity: Non- or Language: Ukrainian Visit Id: Visit Reason: LT / RT/ LOWER ABD PAIN Speciality: Acuity: Obs Enc Type: OB Triage Med Service: Obstetrics Arrival: 11/25/2022 18:17:16 Discharge: 11/25/2022 22:27:00 Dispo Type: Home (Routine DC) Address: [address] [place] [id number] Provider Notes: Diagnosis: Problems Active (11/25/2022) Smoking [...] up: With: Address: When: Your doctor in [place] [phone] In 3 days 11/28/2022 Comments: Call for [...] Education Information: Round Ligament Pain; Morning Sickness, Aojc-dx-Siqx; Second Trimester of , Odog-jw-Xphr; Abdominal Pain During , Xvzy-ed-Czvj Normal [facility] Inpatient Patient Summaryon 11-26-2022 Inpatient Patient Summary [place] [address] Patient Discharge Instructions PERSON INFORMATION Name: ROQUE PIERSON Date of : 2000 Current Date: 11/25/2022 23:14:36 PHYSICIANS Admitting Physician: Shawn Wilson MD Primary Care Physician: Ambrose Urbano MD PCP Comment: Discharge Diagnosis: Condition [...] up: With: Address: When: Your doctor in [place] [phone] In 3 days 11/28/2022 Comments: Call for [...] until the pain goes away. ? Take jusb-hwp-qasqzba and prescription medicines only as told by [...] you uri (more content not included)... Normal [facility] Insurance Correspondenceon 0 11-26-2022 Insurance Correspondence [id number] 5#1.00CD:127 Normal [facility] Consent for Treatmenton Consent for Treatment [id number] #1.00CD:127 Normal [facility] POPSUGARWell Education Videoon [employer] Education Video Yes Patient Avoiding Infections in the Hospital Normal [facility] UA With Cult Reflexon 2022 Bacteria LM Ql (Urine sed) TRACE Normal Trace [facility] Comment on above: Performed By: #### 1 [id number] #### [facility] Laboratory [address] [place] [address] Bilirubin Ql (U) Negative Normal Negative [facility] Comment on above: Performed By: #### 1 [id number] #### [facility] [address] [place] [address] Clarity (U) CLEAR Normal Clear [facility] Comment on above: Performed By: #### 1 [id number] #### [facility] [address] [place] [address] Color (U) YELLOW Normal Yellow [facility] Comment on above: Performed By: #### 1 [id number] #### [facility] [address] [place] [address] Epithelial cells.squamous LM.HPF (Urine sed) [#/Area] 0-2 Normal 0-2 [facility] Comment on above: Performed By: #### 1 [id number] #### [facility] [address] [place] [address] Glucose Test strip (U) [Mass/Vol] Negative Normal Negative [facility] Comment on above: Performed By: #### 1 [id number] #### [facility] [address] [place] [address] Hemoglobin Ql (U) Negative Normal Negative [facility] Comment on above: Performed By: #### 1 [id number] #### [facility] [address] [place] [address] Ketones (U) [Mass/Vol] Negative Normal Negative [facility] Comment on above: Performed By: #### 1 [id number] #### [facility] [address] [place] [address] [place].plasma/Lithiu m.RBC (Bld) [Mass ratio] 0-3 Normal 0-3 [facility] Comment on above: Performed By: #### 1 [id number] #### [facility] [address] [place] [address] Nitrite Ql (U) Negative Normal Negative [facility] Comment on above: Performed By: #### 1 [id number] #### [facility] [address] [place] [address] pH (U) 7.5 [pH] Invalid Interpretation Code 5.0-9.0 [facility] Comment on above: Performed By: #### 1 [id number] #### [facility] [address] [place] [address] Protein (U) [Mass/Vol] Negative Normal Negative [facility] Comment on above: Performed By: #### 1 [id number] #### [facility] [address] [place] [address] Specific gravity (U) [Rel density] 1.010 Invalid Interpretation Code 1.005-1.030 [facility] Comment on above: Performed By: #### 1 [id number] #### [facility] [address] [place] [address] Type of Urine collection method Clean Catch Normal [facility] Comment on above: Performed By: #### 1 [id number] #### [facility] [address] [place] [address] Urobilinogen Qn (U) 0.2 {Andrea'U}/dL Normal 0.0-1.0 [facility] Comment on above: Performed By: #### 1 [id number] #### [facility] [address] [place] [address] WBC Auto Ql (U) TRACE Abnormal Negative [facility] Comment on above: Performed By: #### 1 [id number] #### [facility] [address] [place] [address] WBC LM.HPF (Urine sed) [#/Area] 0-5 Normal 0-5 [facility] Comment on above: Performed By: #### 1 [id number] #### [facility] [address] [place] [address] URINALYSISOrdered By: Davidson Watson on 11-25-2022 Bacteria LM Ql (Urine sed) Trace /HPF Normal Trace/HPF [facility] UA Auto SS Bilirubin Ql (U) Negative (11/25/22 6:27 PM) Normal Negative [facility] UA Auto SS Clarity (U) Clear (11/25/22 6:27 PM) Normal Clear [facility] UA Auto SS Color (U) Yellow (11/25/22 6:27 PM) Normal Yellow [facility] UA Auto SS Epithelial cells.squamous LM.HPF (Urine sed) [#/Area] 0-2 /HPF Normal 0-2/HPF [facility] UA Aut o SS Glucose Test strip (U) [Mass/Vol] Negative (11/25/22 6:27 PM) Normal Negative [facility] UA Auto SS Hemoglobin Ql (U) Negative (11/25/22 6:27 PM) Normal Negative [facility] UA Auto SS Ketones (U) [Mass/Vol] Negative (11/25/22 6:27 PM) Normal Negative [facility] UA Auto SS [place].plasma/Lithiu m.RBC (Bld) [Mass ratio] 0-3 /HPF Normal 0-3/HPF [facility] UA Auto SS Nitrite Ql (U) Negative (11/25/22 6:27 PM) Normal Negative [facility] UA Auto SS pH (U) 7.5 *NA* (11/25/22 6:27 PM) Invalid Interpretation Code 5.0 - 9.0 [facility] UA Auto SS Protein (U) [Mass/Vol] Negative (4/3/23 6:27 PM) Normal Negative [facility] UA Auto SS Specific gravity (U) [Rel density] 1.010 *NA* (11/25/22 6:27 PM) Invalid Interpretation Code 1.005 - 1.030 [facility] UA Auto SS UA Spec Desc Clean Catch (11/25/22 6:27 PM) Normal [facility] UA Auto SS Urobilinogen Qn (U) 0.3716375 {Andrea'U}/dL Normal 0.0 - 1.0 EU/dL [facility] UA Auto SS WBC Auto Ql (U) Trace *ABN* (11/25/22 6:27 PM) Invalid Interpretation Code Negative [facility] UA Auto SS WBC LM.HPF (Urine sed) [#/Area] 0-5 /HPF Normal 0-5/HPF [facility] UA Auto SS PAP ACOG PANEL 2: 22 to 30on 11-14-2022 . . Normal [facility] Comment on above: Performed By: #### C T/NGNA #### [facility] [address] [place] [address] Dr. Tasha Whalen Age Gdln ACOG Testing - Normal [facility] Comment on above: Performed By: #### C T/NGNA #### [facility] [address] [place] [address] Dr. Tasha Whalen DIAGNOSIS: Comment [facility] Comment on above: Result Comment: NEGA TIVE FOR INTRAEPITHELIAL LESION OR MALIGNANCY. FUNGAL ORGANISMS MORPHOLOGICALLY CONSISTENT WITH DYLAN SPECIES ARE PRESENT. Performed By: #### C T/NGNA #### [facility] [address] [place] [address] Dr. Tasha Whalen Methodology: Comment [facility] Comment on above: Result Comment: This liquid based ThinPrep(R) pap test was screened with the use of an image guided system. Performed By: #### C T/NGNA #### [facility] [address] [place] [address] Dr. Tasha Whalen Note: Comment [facility] Comment on above: Result Comment: The Pap smear is a screening test designed to aid in the detection of premalignant and malignant conditions of the uterine cervix. It is not a diagnostic procedure and should not be used as the sole means of detecting cervical cancer. Both false-positive and false-negative reports do occur. . Performed By: #### C T/NGNA #### [facility] [address] [place] [address] Dr. Tasha Whalen Performed by: Comment Normal [facility] Comment on above: Result Comment: Emma Jama, Pile Driver (ASCP) Performed By: #### C T/NGNA #### [facility] [address] [place] [address] Dr. Tasha Whalen Reflex Criteria: Comment Normal [facility] Comment on above: Result Comment: The HPV DNA reflex criteria were not met with this specimen result therefore, no HPV testing was performed. . Performed By: #### C T/NGNA #### [facility] [address] [place] [address] Dr. Tasha Whalen Specimen adequacy: Comment Normal [facility] Comment on above: Result Comment: Sati sfactory for evaluation. Endocervical and/or squamous metaplastic cells (endocervical component) are present. Performed By: #### C T/NGNA #### [facility] [address] [place] [address] Dr. Tasha Whalen CHLAMYDIA/GONOCOCCUS CATRINA (SW AB/URINE/PAPon 11-12-2022 Chlamydia trachomatis, CATRINA Negative Normal Negative [facility] Comment on above: Performed By: #### C T/NGNA #### [facility] [address] [place] [address] Dr. Tasha Whalen Neisseria gonorrhoeae, CATRINA Negative Normal Negative [facility] Comment on above: Performed By: #### C T/NGNA #### [facility] [address] [place] [address] Dr. Tasha Whalen VAGINITIS/VAGINOSIS DNA PROB Dell 11-09-2022 Dylan species Positive Abnormal Negative [facility] Comment on above: Performed By: #### V AGINT #### [facility] [address] [place] [address] Dr. Tasha Whalen Gardnerella vaginalis Negative Normal Negative [facility] Comment on above: Performed By: #### V AGINT #### [facility] [address] [place] [address] Dr. Tasha Whalen Trichomonas vaginalis Negative Normal Negative [facility] Comment on above: Performed By: #### V AGINT #### [facility] [address] [place] [address] Dr. Tasha Whalen HEP B SURFACE ANTIGEN SCREEN on 10-05-2022 HBsAg Screen Negative Normal Negative [facility] Comment on above: Performed By: #### H BSANS #### [facility] [address] [place] [address] [address] Tasha Whalen HEPATITIS C VIRUS AB W/ REFL EX QUANTon 10-05-2022 HCV AB 0.1 s/co ratio Normal 0.0-0.9 [facility] Comment on above: Performed By: #### H CVPCRR #### [facility] [address] [place] [address] Dr. Tasha Whalen Interpretation: Comment Normal [facility] Comment on above: Result Comment: Nega tive Not infected with HCV, unless recent infection is suspected or other evidence exists to indicate HCV infection. Performed By: #### H CVPCRR #### [facility] [address] [place] [address] Dr. Tasha Whalen HIV 1 AND 2 WITH REFLEXon HIV Screen 4th Generation wRfx Non-Reactive Normal Non Reactive [facility] Comment on above: Result Comment: HIV Negative HIV-1/HIV-2 antibodies and HIV-1 p24 antigen were NOT detected. There is no laboratory evidence of HIV infection. Performed By: #### H IV12 #### [facility] [address] [place] [address] Dr. Tasha Whalen RPR QUANTon 10-05-2022 Rapid Plasma Reagin, Quant Non-Reactive Normal NonRea<1:1 [facility] Comment on above: Result Comment: Plea se Note: This test does not meet current guidelines for screening and diagnosis of syphilis. This test is intended for following treatment response in patients being treated for syphilis infection. To screen for syphilis infection, a reflex cascade that includes both RPR and a treponema-specific assay should be utilized, such as Treponema pallidum (Syphilis) Screening [place] (396041) or Rapid Plasma Reagin (RPR) Test With Reflex to Quantitative RPR and Confirmatory Treponema pallidum Antibodies (182560). Performed By: #### C T/NGNA #### [facility] [address] [place] [address] Dr. Tasha Whalen RUBELLA AB IGGon 10-05-2022 Rubella Antibodies, IgG 3.71 index Normal Immune >0.99 [facility] Comment on above: Result Comment: Non- immune <0.90 Equivocal 0.90 - 0.99 Immune >0.99 Performed By: #### R UBIGG #### [facility] [address] [place] [address] Dr. Tasha Whalen CBC AUTO DIFFon 10-04-2022 BASO # 0.0 103/ul Normal 0.0-0.1 [facility] Comment on above: Performed By: #### H IV12 #### [facility] [address] [place] [address] Dr. Tasha Whalen Basophils/100 WBC (Bld) 0.5 % Normal 0.2-2.0 [facility] Comment on above: Performed By: #### H IV12 #### [facility] [address] [place] [address] Dr. Tasha Whalen EO # 0.1 103/ul Normal 0.0-0.7 [facility] Comment on above: Performed By: #### H IV12 #### [facility] [address] [place] [address] Dr. Tasha Whalen Eosinophils/100 WBC (Bld) 0.8 % Critically low 0.9-7.0 [facility] Comment on above: Performed By: #### H IV12 #### [facility] [address] [place] [address] Dr. Tasha Whalen Erythrocyte distribution width (RBC) [Ratio] 12.5 % Normal 11.0-15.0 [facility] Comment on above: Performed By: #### H IV12 #### [facility] [address] [place] [address] Dr. Tasha Whalen Hematocrit (Bld) [Volume fraction] 39.2 % Normal 36.0-48.0 [facility] Comment on above: Performed By: #### H IV12 #### [facility] [address] [address] [address] Tasha Whalen Hemoglobin (Bld) [Mass/Vol] 13.5 g/dL Normal 12.0-16.0 [facility] Comment on above: Performed By: #### H IV12 #### [facility] [address] [place] [address] Dr. Tasha Whalen IG # 0.04 10e3/ul Critically high 0.00-0.03 [facility] Comment on above: Performed By: #### H IV12 #### [facility] [address] [place] [address] Dr. Tasha Whalen IG % 0.5 % Normal 0.0-0.5 [facility] Comment on above: Performed By: #### H IV12 #### [facility] [address] [place] [address] Dr. Tasha Whalen LYMPH # 1.6 103/ul Normal 1.2-3.8 [facility] Comment on above: Performed By: #### H IV12 #### [facility] [address] [place] [address] Dr. Tasha Whalen Lymphocytes/100 WBC (Bld) 18.5 % Critically low 20.5-60.0 [facility] Comment on above: Performed By: #### H IV12 #### [facility] [address] [place] [address] Dr. Tasha Whalen MANUAL DIFF REQ NO Normal [facility] Comment on above: Performed By: #### H IV12 #### [facility] [address] [place] [address] Dr. Tasha Whalen MCH (RBC) [Entitic mass] 29.6 pg Normal 26.7-34.0 [facility] Comment on above: Performed By: #### H IV12 #### [facility] [address] [place] [address] Dr. Tasha Whalen MCHC (RBC) [Mass/Vol] 34.4 g/dL Normal 29.9-35.2 [facility] Comment on above: Performed By: #### H IV12 #### [facility] [address] [place] [address] Dr. Tasha Whalen MCV (RBC) [Entitic vol] 86.0 fL Normal 81.0-99.0 [facility] Comment on above: Performed By: #### H IV12 #### [facility] [address] [place] [address] Dr. Tasha Whalen MONO # 0.4 103/ul Normal 0.3-0.8 [facility] Comment on above: Performed By: #### H IV12 #### [facility] [address] [place] [address] Dr. Tasha Whalen Monocytes/100 WBC (Bld) 4.8 % Normal 1.7-12.0 [facility] Comment on above: Performed By: #### H IV12 #### [facility] [address] [place] [address] Dr. Tasha Whalen NEUT # 6.3 103/ul Normal 1.4-6.5 [facility] Comment on above: Performed By: #### H IV12 #### [facility] [address] [place] [address] Dr. Tasha Whalen Neutrophils/100 WBC (Bld) 74.9 % Normal 43.0-75.0 [facility] Comment on above: Performed By: #### H IV12 #### [facility] [address] [place] [address] Dr. Tasha Whalen Platelet mean volume (Bld) [Entitic vol] 10.0 fL Normal 9.5-13.5 [facility] Comment on above: Performed By: #### H IV12 #### [facility] [address] [place] [address] Dr. Tasha Whalen PLT 290 103/ul Normal 150-450 [facility] Comment on above: Performed By: #### H IV12 #### [facility] [address] [place] [address] Dr. Tasha Whalen RBC 4.56 106/ul Normal 4.20-5.40 [facility] Comment on above: Performed By: #### H IV12 #### [facility] [address] [place] [address] Dr. Tasha Whalen WBC 8.4 103/ul Normal 4.0-11.0 [facility] Comment on above: Performed By: #### H IV12 #### [facility] [address] [place] [address] Dr. Tasha Whalen CULTURE URINEon 10-04-2022 CULTURE URINE Culture Observations: VERY LIGHT GROWTH OF MIXED GENITAL TAYE. NO POTENTIAL PATHOGENS SEEN. Normal [facility] Comment on above: Performed By: #### C T/NGNA #### [facility] [address] [place] [address] Dr. Tasha Whalen GLYCOHEMOGLOBIN A1Con 2022 ADA RECOMMENDATION SEE BELOW Normal [facility] Comment on above: Result Comment: ADA RECOMMENDED LIMIT 4.0 - 6.0 ADA THERAPEUTIC TARGET < 7.0 ACTION SUGGESTED > 7.0 Performed By: #### C T/NGNA #### [facility] [address] [place] [address] Dr. Tasha Whalen Glucose [Mass/Vol] 100 mg/dL Normal [facility] Comment on above: Performed By: #### C T/NGNA #### [facility] [address] [place] [address] Dr. Tasha Whalen HbA1c (Bld) [Mass fraction] 5.1 % Normal 4.5-6.2 [facility] Comment on above: Performed By: #### C T/NGNA #### [facility] [address] [place] [address] Dr. Tasha Whalen CLINT BOX TEST PT SEND OUTo n 10-04-2022 SENT TO REF LAB 10/04/2022 Normal [facility] Comment on above: Performed By: #### C T/NGNA #### [facility] [address] [place] [address] Dr. Tasha Whalen TSHon 10-04-2022 TSH 1.027 uIU/mL Normal 0.358-3.740 [facility] Comment on above: Performed By: #### C T/NGNA #### [facility] [id number] Tasha Whalen TYPE AND SCREENon 10-04-2022 TYPE AND SCREEN Negative Normal [facility] Comment on above: Performed By: #### C T/NGNA #### [facility] [id number] Tasha Whalen US PREG TVon 09-20-2022 [...] ALFRED BERGERON Date: 2022-09-20 10:40 Normal [facility] Coding Summary.on 09-09-2022 Coding Summary. CD:[id number] Gh0bWw+PGhlYWQ+PE1FV ZCuC44qrXGwqN9YG9fFN N7OZKZLRMAMLI7AIG4gz WP9XPlpM9UdaeMe OibvmVJxIX64QAk4NFR2 dPnlVVnzqI1tyCTjC7s2 QgMjCK60lQ36EIduRBAw BhK6KdXdubryoCPx R2vbEnSlmSQwCqn+PHRh YmxlIHdpZHRoPScxMDAl ZaTyoMbcUF4hUl6pFORh LWNvbGxhcHNlOiBj n4zrYPKzWXjkRU1woAwh C2OayJP7GUEwy1v2Ig94 dHI+SZOmAQC3eSjxXRcf l987ZiBmz2fnBYF3 nKWzBPafLVO0Y57vi9C2 PHLdCZBpAMB2nAF2eK5j pBbnrlniC7DvnBMzAiN5 OHT3bGExtT6ukVob gmtmqW1jEcs+M95QUC6R ZZRDAO9XKie1Z6WjBwtm dHI+ND94LXMbXX43eUId lLYcx1qieBw1SrXp STNkKNV8nJbqSDgpl5Ts OIJuI15fsWAtp9C2MKOk dBhueHObPqEwcOI0kY2f BLuudeywk3gjkocs Gaivq9ulaw01gZ66C05p RUupDOLqGBF9HZGfGLXb kJdbam0qoV3gUw5+IDxj j6bdb7rneZs4SwXe OJGmwxLmwDxlQHB6v5Vl Yp37F4MscLurl1JbPtk8 za30mXKcq2W4gWV1KHcl MGZggK2lADaqQyL2 PXQuHuIkrX72jHJiXKrp Qp6yuDqwyYdzSE2jSYRr ngdgJQJarM2jXJJypNHg tPptNJ8aXIQzuhua g474EoCfFUR3BWNhqPGs A1WwcD7zXoEjUGKsFZFm Z9PzaYRdQGvzK575TNnr PgP5RVOccqElM4Cs BRSsnTfqWxU8v6R1Yw4K o0VoralqPXJ3BEvqKCUw AqO3MvXvOzG8F8MmAic3 DYQbtAwlYJ6uE1Xb OEKvanbvzussvJX2KQXh YQZtjC80wWLkOOfvNx5g u2D8q292KAMcDKXptI21 Mp2maBzmGSOjiTJK uQ3vsvrdi7wfugvoVkJi WERmIQn0WPz9SAPlrGta GjQzVUG3JeH3QYO4sFKf wF3kkLpudrbgfC9a Oyc+N60wwJ5rAPB2OEZ4 xqpsYMZcutPtQU73RB91 C5TdZcpumDOakEE+PGRp qkWvgQfjID4vEiRp i6hbl5EkFDknF2KwKKRt LXvzRws1NKShPCU9aEE8 lA8iBCCoXGzvv8A4kZT2 R3QxtaBscd4tz4ep GZGdDEfiD13ulXBay9V4 SRNvrPS0DXNjuNtmTiEr qD11Oxm+EWAjmOvcc7Es Yrzbr2jlt4mwkEe8 IjMwJSIgdmFsaWduPSJ0 b5ZkHb45B66qZCmrTSAm HUQrKCLyPPAyjSehdd9n fB7rHq7+PGNvbCB3 vUY5vO5bWZNuMjL5OEvs I338RtSegEBlPjtfl9wk b7arbUk3ZbDaKERiniPe wKjcAGN6r7ZqOa85 W06eTJbkEEFpLRVdITOv PABrzHqsob8qjG1fSh8+ WA9ih7pbmg39rJ76rQG+ HHOmRQT1dHmbXGpr MNVoeM2uKNnwLvU4DCIb YpKpzA15qJLzNDrrIg8w lAbqvHfpQC7cBDJpxraq n206YeKej7bhVZHg xJPsWWgsBPK4R19na7B0 DCXoKYBaAYD1kKO6kF4q bGlnbjogbGVmdDsgdmVy oQzuEUxeILokK353 IHRvcDsnPlBhdGllbnQg FfCrVFv2H4KaSzq8FMLx wFdkZF7dmVAfIBifYv4w lSrukOdbLU1sQPWc vtsvm216HwHaf1dwVKCi oRCzDDifCNH7K08or1U8 CNRpAWHhGJO3sOL7rP5x bGlnbjogbGVmdDsg byJuuKwxDIqaOPudI015 IHRvcDsnPkJpcnRoIERh uDP1BN23NV37hQNdy6U7 eRB7L4GxIDImqbct bbxnnUE9SVHzOLTkaY76 Qe9bqBplGb9vKYFwHKG9 XMCywOKaW1YkbK0eVfZv RSKvGZYgN8OhyXDy GVrsJ222DXxbRlP6MQHv qhHmX9HwNQMhjUvvMmD0 z8W2Fq6DW2Q9AP99TD83 gXCej8Y7uXV8D0Eb DQFhjxgmbqofnQZ5HYMp QUDiiU02Gz6jqMwrBs1y WWZjHJL7HFFlbMWiV1Fq eF9eKzXeLPTxCULc C0QseLApTVwjK951RIuo DdH1KRGltyVqH2KkRCBe kZhrKiB9w0D5Xd9SHDg4 RT86CX60cLNnk6B5 eEG0K9CwXOGlgswvjpjz bRC2DKRmGMHctO81Lg9n xMwwZm1lIUHtKDR7WJPz rWYiF4CwfI7hInCi YXCqVZMiY8XkhLEwFCgl M745LKlcNoQ1QBMoqvEc E4IgBWJoaPhnWtJ6a8R7 Bo7BQCHfQR92RTT6 wPI6EA85GA26O2UnGsir dGFibGU+PHRhYmxlIHdp ZHRoPScxMDAlJyBzdHls IL1iXl0hMCPmYGJz nKoajQSvJpXng2dwCMYa ETyeLN5fmCodD6ElfEO2 ZKIoa2i5Py03Q97dM6Kx dXA+KIPklGC1mTU0 cS7gUmZpCqE1VQmnW173 ExRdyCOfCzvsa6ill2bd iJx1VgH5EHDcnsSdkStn ZJU4f6ZuFu22J47b IHdpZHRoPSIxNSUiIHZh hLjfck8vaF5qXt4+PGNv nBV6wMQ0nT9wSzHjTsG5 CTivD259JvXxsBYh Amoxi3scr5whwWm3OyWy QEQpxoOsfPhfSJC8q8Rd Fu41P6DqcObea9BjWrk4 ur34bAJsp3E1qHA3 A9GdCFPlulqeeUIolWmh ZZ3qAMUtfwgdPMJmoP7z WROuM3p4VrZtTxL5TVox Q9AtpfK9VKQjcPWq GQzlKZZ7K54jp8Y3VZDj OGWhHJE4xQS8qQ6xpQrs bjogbGVmdDsgdmVydGlj SZncUYqlJ136OEFs zInhEBTpjZ5fISZdxIBc dNwpXM8kSEFxhgzuYz6I WBMGEQXRDFBSAKMLXG5N HO89N4VmMzd2KREc aBjuCL2ttBLnGIwdZp6r uSrucPloQA0uXTIihqmn ODMaxU9vHUGskSIfoZnt SG5iJWKfvgbdh404 FmZtXQG7BTFnyUNyW5Er fH2pGjEvFNAoMNKbD0Gi kPWkSZlkJ669IDldGvJ6 ZVOuqlVeR5ZnCEXz mBjmAgB3c8G4Lk2iUW8e YA8kTKPeRU07CV35qKFv h2Y4tCQ3E8HoXDEaswxd dxrbsMH5ZCEaZEOq cR15pKLpRIqzUp0bs4R6 n224UWGdAAEepQ53Rl1i tUotJQHjxIAUvA9xfypo b0xitxpwOkRcFWGx JKt5YGi6XEMynFjzUjAd OOM6XuY4ANM9cWJxmS4f vXykssgffK3zIod+MjEg YSMgnjB9X5YrWib6 BZRanYqiKJ6gmWTnLTqu Lp1yqBdpfOamEI6qXPLr plwaIPCrgA4zKEUibYIy pMjtKL3cMIZrtfhq i662ChWhAZN4EPZryPFg E1AbzM2fLqOyUXFgCTVb Z2KynBCyTUwmY368JYmv AnI5ISMkndUrX0Ex VYKosHaeIiO2p3Z8Co5B ZJ0pqWG6F3ZoGri2GBZz cUbxLZ2ugUIjSVzyIq2m vFjopQtuEX3mGBZo gxxoVRTlvA9aKINcyNBn fNysQR7bQOCcabagl097 SyExWBD6SCYlmSVaB2Ev jC7uZrJbYLHkUXPc W5LxoRZoKQqjH314PCxj HpB8PHQfjeXxU8OwZDXf gLmiQdI0i0O1Ey3OuKCc M5WiE5m5V2OaWtsp dHI+QQ52TSKbLQ04wPZl kCSjn4vtiZp8WuHjKKVq DIA3kPcpWVdbr7GtZAJd R53gqHLah4L3TNQx eKpgiAJkAlFnhVQ2uL5r EWtiqphmy1arkvuySsar b8vwww75sD87X92tDFij ZHRoPSIzMCUiIHZh gBqrze9fqF5pPq5+PGNv cUN3zHY6fY5hSbLvTjZ0 XJhoJ332CbKcnCKsEmvf d7yhq4gopWj2JoQr FWEhccKfxHnvRCA3z9Vp Zx22E09rWYikUCAnPNOp RKEmVKEoeDwuhn5ojR7r Ii8+AD2hr6skbe47 jN46sBA+MWBuRAE8mPmn TNjiLJAuyX0hNFgaQcQ4 OFXzCqVorR31oCQrKUkx Gz0tuJwwdQwnSQ9d KQBmzinsw326FfLdp4df YRZplBRfOPkfWEY1G24o h4D9PJFfXIItKZH7kNH0 eZ6bpMlwfnzguCQw dDsgdmVydGljYWwtYWxp U665AEMwoNuyGsAmxMUt Q2tfkfGYAI7qJtdgzVC+ RAJmHHZ0bYigMJiz DFFdiK4yQGRlF0h2AfLk XiQ4DRoxG1LujrL4XSNd vVOaFJUkePFHqF0irpke w9jnttoxGdGlVRQh QGc3NQj6VXUjrZeiXzCq NPD1KwU0OBY5sVWroZ0q zNjsjohivM6pXua+RklO OjwvdGQ+PHRkIHN0 bWflBAvqEJPuwI4dOFUa U8s8EzUyDjR3GZdrD9Fi pjC4QSOxmCOwSPGcvIDL qY9egmeuj3pshpha JjSuKQTmWHz6RYb0WURt aUipKdInCMA4QxE1JDA4 nLZndC8svLnmdkokdS8b Oyc+TVJOOjwvdGQ+ KGGfFEH2bUcmDEhnAYMl mX1wAUSlW3q8CeJwRjN2 ZAhlL7PsvgV9UWNhpNGc WHHhyMTFsN4towdp f9xhegbaWmYwQYRvYEt4 EOr4SSRfbTwdJpCrUJJ7 WzK3HMA9aYZsjY7fsMuh helbzO2zQwq+UGF5 EFC6SQ51FL07L5NdGdvg dGFibGU+PHRhYmxlIHdp ZHRoPScxMDAlJyBzdHls RC3bWt5uBBQwUXJy bGxh (more content not included)... Normal [facility] Auto Diffon 09-08-2022 Basophils/100 WBC (Bld) 0.7 % Normal 0.0-2.0 [facility] Comment on above: Order Comment: Order Added by Discern Expert. Performed By: #### 2 106151, 8240185, 6272371, 2742104, 53396739, 6810680, 1888854 ####[address] [place] [address] Basophils/Leukocytes Auto (Bld) [Pure # fraction] 0.1 E9/L Normal 0.0-0.2 [facility] Comment on above: Order Comment: Order Added by Discern Expert. Performed By: #### 2 190248, 8189523, 2840461, 6023284, 80872813, 6703385, 3587282 ####[facility] [address] [place] [address] Eosinophils/100 WBC (Bld) 1.3 % Normal 0.0-8.0 [facility] Comment on above: Order Comment: Order Added by Discern Expert. Performed By: #### 2 945324, 2163618, 7746575, 1624765, 57740586, 8770263, 0145109 ####[address] [address] Eosinophils/Leukocyte s Auto (Bld) [Pure # fraction] 0.1 E9/L Normal 0.0-0.5 [facility] Comment on above: Order Comment: Order Added by Discern Expert. Performed By: #### 2 610041, 4483923, 6304697, 4287091, 06778177, 8117820, 4792923 ####[address] [address] Lymphocytes/100 WBC (Bld) 22.3 % Normal 14.0-50.0 [facility] Comment on above: Order Comment: Order Added by Discern Expert. Performed By: #### 2 815141, 1655669, 7053420, 3321375, 69381660, 9253146, 8162751 ####[address] [place] [address] Lymphocytes/Leukocyte s Auto (Bld) [Pure # fraction] 2.2 E9/L Normal 1.0-4.0 [facility] Comment on above: Order Comment: Order Added by Ally Expert. Performed By: #### 2 517021, 5734407, 2743591, 9932260, 28224529, 1461728, 3298019 ####[address] [address] Monocytes/100 WBC (Bld) 7.4 % Normal 4.0-14.0 [facility] Comment on above: Order Comment: Order Added by Discern Expert. Performed By: #### 2 756235, 0715515, 3960583, 1984426, 06961648, 9549022, 2929530 ####[facility] [address] [place] [address] Monocytes/Leukocytes Auto (Bld) [Pure # fraction] 0.7 E9/L Normal 0.2-1.0 [facility] Comment on above: Order Comment: Order Added by Discern Expert. Performed By: #### 2 505090, 3130326, 2638943, 3592127, 57215629, 4993771, 6533400 ####[address] [place] [address] Neutrophils/100 WBC (Bld) 68.3 % Normal 36.0-75.0 [facility] Comment on above: Order Comment: Order Added by Discern Expert. Performed By: #### 2 810454, 7888123, 5060487, 4386441, 47366536, 8336582, 5187622 ####[address] [place] [address] Neutrophils/Leukocyte s Auto (Bld) [Pure # fraction] 6.7 E9/L Normal 2.0-7.5 [facility] Comment on above: Order Comment: Order Added by Discern Expert. Performed By: #### 2 492924, 5663442, 8630031, 8965427, 25497774, 1287228, 8214142 ####[facility] [address] [place] [address] BMPon 09-08-2022 Creatinine [Mass/Vol] 0.5 mg/dL Normal 0.5-1.3 [facility] Comment on above: Performed By: #### 2 120908, 2258287, 6492700, 8242746, 00466057, 4433544, 7868290 ####[address] [place] [address] Urea nitrogen [Mass/Vol] 8 mg/dL Normal 5-21 [facility] Comment on above: Performed By: #### 2 783787, 0280530, 2625509, 9586783, 39016703, 5569463, 4024410 ####[facility] [address] [place] [address] Urea nitrogen/Creatinine [Mass ratio] 16 No Units Normal 10-20 [facility] Comment on above: Performed By: #### 2 575720, 5633133, 0778319, 1212341, 74335182, 0420041, 6808856 ####[facility] [address] [place] [address] Anion gap [Moles/Vol] 12 mmol/L Normal 6-16 [facility] Comment on above: Performed By: #### 2 920653, 1341967, 0074089, 6543302, 13830254, 2114215, 5099142 ####[facility] [address] [place] [address] Calcium [Mass/Vol] 9.2 mg/dL Normal 8.9-11.1 [facility] Comment on above: Performed By: #### 2 714080, 7999417, 0562721, 5818954, 53077721, 1072063, 7985192 ####[facility] [address] [place] [address] Chloride [Moles/Vol] 103 mmol/L Normal 101-111 [facility] Comment on above: Performed By: #### 2 236565, 3702029, 4735649, 4255835, 38825088, 1183355, 8682822 ####[facility] [address] [place] [address] CO2 [Moles/Vol] 22 mmol/L Normal 21-31 [facility] Comment on above: Performed By: #### 2 550033, 9298940, 6261591, 8354790, 32733748, 3991926, 1817571 ####[facility] [address] [place] [address] Glucose [Mass/Vol] 92 mg/dL Normal 55-199 [facility] Comment on above: Result Comment: If t his glucose result represents a fasting glucose, interpretation should refer to the following reference range: 55-99 mg/dL Performed By: #### 2 271864, 0910487, 4493881, 0822052, 26765324, 6973026, 0050612 ####[facility] [address] [place] [address] Potassium [Moles/Vol] 3.3 mmol/L Low 3.5-5.3 [facility] Comment on above: Performed By: #### 2 216504, 0202878, 2426791, 4939268, 94831239, 8593345, 9313067 ####[facility] [address] [place] [address] Sodium [Moles/Vol] 134 mmol/L Low 135-145 [facility] Comment on above: Performed By: #### 2 315578, 7224587, 2319922, 3021836, 25993305, 0994189, 0840802 ####[facility] [address] [place] [address] CBC w/ Auto Diffon 3 Erythrocyte distribution width (RBC) [Ratio] 13.4 % Normal 10.9-14.2 [facility] Comment on above: Performed By: #### 2 068731, 2581099, 0221917, 2066799, 72483967, 3668733, 2375693 ####[facility] [address] [place] [address] Hematocrit (Bld) [Volume fraction] 38.9 % Normal 34.0-46.0 [facility] Comment on above: Performed By: #### 2 359407, 0545275, 3214659, 3873004, 75229774, 0912833, 0739948 ####[facility] [address] [place] [address] Hemoglobin (Bld) [Mass/Vol] 13.4 g/dL Normal 12.0-16.0 [facility] Comment on above: Performed By: #### 2 597521, 1677887, 1297741, 1968974, 97677810, 3483933, 0168840 ####[facility] [address] [place] [address] MCH (RBC) [Entitic mass] 29.2 pg Normal 27.0-34.0 [facility] Comment on above: Performed By: #### 2 100445, 3280274, 9449125, 7423228, 99327702, 1180394, 8236850 ####[facility] [address] [place] [address] MCHC (RBC) [Mass/Vol] 34.3 g/dL Normal 31.4-36.0 [facility] Comment on above: Performed By: #### 2 100753, 7280944, 1522574, 5928862, 70990550, 0488272, 4753514 ####[address] [address] MCV (RBC) [Entitic vol] 84.9 fL Normal 80.0-100.0 [facility] Comment on above: Performed By: #### 2 109351, 0211363, 8750162, 6674785, 88598944, 8468465, 7411796 ####[address] [address] Platelet mean volume (Bld) [Entitic vol] 8.6 fL Normal 6.4-10.8 [facility] Comment on above: Performed By: #### 2 329350, 9486651, 7896836, 1069836, 33008200, 0350456, 7187693 ####[address] [address] Platelets (Bld) [#/Vol] 262.0 E9/L Normal 150.0-500.0 [facility] Comment on above: Performed By: #### 2 786993, 6119542, 6323985, 3592343, 63616332, 3855403, 4368452 ####[facility] [address] [place] [address] RBC (Bld) [#/Vol] 4.6 E12/L Normal 4.3-5.9 [facility] Comment on above: Performed By: #### 2 065549, 8988449, 2730775, 5670914, 55166193, 7401628, 6840502 ####[facility] [address] [place] [address] WBC corrected for nucl RBC Auto (Bld) [#/Vol] 9.9 E9/L Normal 4.0-11.0 [facility] Comment on above: Performed By: #### 2 723355, 0108432, 8833231, 1032869, 30160297, 5661234, 3404616 ####[facility] [address] [place] [address] Consent for Treatmenton 08-25 Consent for Treatment [id number] #1.00CD:127 Normal [facility] Discharge Instructionson Discharge Instructions [id number] 3#1.00CD:127 Normal [facility] ED Clinical Summaryon 2022 ED Clinical Summary [address] [address] ED Clinical Summary Person Information Name: ROQUE PIERSON [facility] Age: 22 Years : 2000 Sex: Female Language: Ukrainian PCP: Caryn Aviles MD Marital Status: Single [...] 09/08/2022 04:05:14 09/08/2022 04:05:14 09/08/2022 04:05:14 ADDRESS: [address] [place] [id number] PHYS DOC NOTES: MEDICAL INFORMATION: Prescriptions Given: New Medications [facility], [address] [place], [place] [id number], [phone] metoclopramide (Reglan 10 mg Tab) 1 Tablets [...] Follow up: With: Address: When: Julius CROCKETT [facility], [address] [place] [address] [place] [address] Business (1) In 3 days 09/11/2022 Comments: 1 every 8 hours as needed for nausea and vomiting. Please follow-up with OB for further evaluation and management. Please return to the ED for any new or worsening symptoms. With: Address: When: Caryn Aviles [place] [address] Business (1) In 3 days 09/11/2022 DIAGNOSIS: Nausea/vomiting in Normal [facility] ED Note-Physicianon 09-08-19 ED Note-Physician Basic Information [...] and Complexity of Problems Differential Diagnosis: [] [facility] Data External documents reviewed: [] My EKG [...] q6hr, # 14 tab(s), Refills(s) 0, Pharmacy: [facility], 173, cm, 09/08/22 1:24:00 EST, Height/Length [...] 5 mg/mL Inj, 10 mg, IV Push [id number] [F], 1000 mL, IV potassium chloride 20 mEq ER Tab, 40 mEq, Oral Disposition Plan Discharge Prescription List Prescriptions Reglan 10 mg Tab, 10 mg= 1 tab(s), Oral, q6hr Follow-up With When (more content not included)... Normal [facility] Comment on above: Result Comment: Elec tronically Signed By: Sissy Shah DO\.br\Date and Time Signed: 09/08/22 03:56 EST ED [...] or sour. Examples include lemonade, damián janak, lemon?[place] soda, ice water, and sparkling water. ? Lakin your teeth or use a mouth rinse after meals. ? Talk with your health care provider about starting a supplement of vitamin B6. General instructions ? Take xojk-bqa-sswsgxh and prescription medicines only as told by [...] This i (more content not included)... Normal [facility] ED Patient Summaryon 023 ED Patient Summary [address] [address] Patient Discharge Instructions Person Information Name: ROQUE PIERSON Age: 22 Years Arrival Date: 09/08/2022 01:15:13 Discharge Diagnosis: Nausea/vomiting in Primary Care Physician: Caryn Aviles MD Provider Information Primary Provider: Sissy Shah DO Advanced Financial Writer:None The exam and treatment you received in the Emergency Department were for an urgent problem and are not intended as complete care. It is important that you follow up with a doctor, nurse practitioner, or physician?s expanded duty dental assistant for ongoing care. If your symptoms become worse or you do not improve as expected and you are unable to reach your usual health care provider, you should return to the Emergency Department. We are available 24 hours a day. ROQUE PIERSON has been given the following list of patient education materials, prescriptions and follow-up instructions: Follow-up Instructions: With: Address: When: Julius KEIRA [facility], [address] [place] [address] [place] [address] Business (1) In 3 days 09/11/2022 Comments: 1 every 8 hours as needed for nausea and vomiting. Please follow-up with OB for further evaluation and management. Please return to the ED for any new or worsening symptoms. With: Address: When: C[place] [address] Business (1) In 3 days 09/11/2022 In the event that this physician does not participate in your insurance network, please consult with your insurance company to find a nearby participating provider. Patient Education Materials: Hyperemesis Gravidarum A MESSAGE TO ALL PATIENTS REGARDING OPIOIDS PRESCRIPTION OPIOIDS: WHAT YOU NEED TO KNOW Prescription opioids can be used to help relieve lesoivmq-dp-kucsgj pain and are often prescribed following a [...] the F (more content not included)... Normal [facility] Hep Func Panelon 09-08-2022 Albumin [Mass/Vol] 4.3 g/dL Normal 3.3-5.0 [facility] Comment on above: Performed By: #### 2 168572, 8386308, 8795235, 7163376, 75705863, 8358329, 2062265 ####[address] [place] [address] Albumin/Globulin (S) [Mass conc ratio] 1.3 Normal 1.1-2.2 [facility] Comment on above: Performed By: #### 2 216739, 4728119, 6537800, 8557439, 87105862, 0583077, 4231111 ####[facility] [address] [place] [address] ALP [Catalytic activity/Vol] 61 Int._Unit/L Normal 21-98 [facility] Comment on above: Performed By: #### 2 382949, 0478670, 5413216, 5313540, 44544803, 1406902, 5792747 ####[address] [address] ALT No additional P-5'-P [Catalytic activity/Vol] 61 Int._Unit/L High 6-46 [facility] Comment on above: Performed By: #### 2 660453, 6215381, 7763793, 4642421, 80734444, 9524662, 7858053 ####[address] [address] AST [Catalytic activity/Vol] 48 Int._Unit/L High 5-43 [facility] Comment on above: Performed By: #### 2 760757, 1224521, 1126770, 7712123, 04173533, 4819664, 5876435 ####[facility] [address] [place] [address] Bilirubin [Mass/Vol] 1.1 mg/dL Normal 0.0-1.1 [facility] Comment on above: Performed By: #### 2 989798, 2108243, 8127698, 1230665, 40549555, 7369353, 9729666 ####[facility] [address] [place] [address] Bilirubin.direct [Mass/Vol] 0.3 mg/dL Normal 0.1-0.4 [facility] Comment on above: Performed By: #### 2 262232, 7155827, 3600050, 5535817, 79167076, 7259365, 3969276 ####[facility] [address] [place] [address] Bilirubin.indirect [Mass or moles/Vol] 0.8 mg/dL Normal 0.1-0.9 [facility] Comment on above: Performed By: #### 2 502760, 8693995, 5457341, 9036194, 72017252, 8942459, 9703266 ####[facility] [address] [place] [address] Globulin (S) [Mass/Vol] 3.3 g/dL Normal 1.4-4.0 [facility] Comment on above: Performed By: #### 2 622866, 9359403, 3251145, 7158445, 65036004, 5581322, 4016735 ####[facility] [address] [place] [address] Protein [Mass/Vol] 7.6 g/dL Normal 6.0-7.8 [facility] Comment on above: Performed By: #### 2 169082, 7556750, 4204528, 1247337, 95642418, 7480667, 6699706 ####[facility] [address] [place] [address] Lipase Levelon 09-08-2022 Lipase [Catalytic activity/Vol] 27 U/L Normal 13-58 [facility] Comment on above: Performed By: #### 2 631565, 6959044, 1933403, 5365032, 69020775, 9239335, 8582716 ####[facility] [address] [place] [address] Magnesiumon 09-08-2022 Magnesium [Mass/Vol] 1.9 mg/dL Normal 1.3-2.4 [facility] Comment on above: Performed By: #### 2 119018, 1001071, 4795522, 8142741, 42375095, 3157148, 1693969 ####[facility] [address] [place] [address] UA With Cult Reflexon 2022 Bacteria LM Ql (Urine sed) TRACE Normal Trace [facility] Comment on above: Performed By: #### 2 761153, 0096452, 6334146, 5474241, 72688198, 0687150, 0393064 #### [facility] [address] [place] [address] Bilirubin Ql (U) 1+ Abnormal Negative [facility] Comment on above: Performed By: #### 2 259979, 3911428, 9941585, 7462217, 13103480, 6772673, 9937384 #### [facility] [address] [place] [address] Clarity (U) CLEAR Normal Clear [facility] Comment on above: Performed By: #### 2 426004, 8814991, 2444043, 9209215, 18997843, 9737990, 6110371 #### [facility] [address] [place] [address] Color (U) YELLOW Normal Yellow [facility] Comment on above: Performed By: #### 2 034950, 9322352, 7090584, 4836896, 64876775, 6945307, 7706417 #### [facility] [address] [place] [address] Epithelial cells.squamous LM.HPF (Urine sed) [#/Area] 0-2 Normal 0-2 [facility] Comment on above: Performed By: #### 2 112034, 0351578, 6982458, 4451783, 36765893, 6420475, 8213018 #### [facility] [address] [place] [address] Glucose Test strip (U) [Mass/Vol] Negative Normal Negative [facility] Comment on above: Performed By: #### 2 873468, 7815933, 9059948, 1228471, 48684709, 7895159, 8218716 #### [facility] [address] [place] [address] Hemoglobin Ql (U) Negative Normal Negative [facility] Comment on above: Performed By: #### 2 260187, 7655259, 3307969, 4559423, 32651286, 8938702, 2789872 #### [facility] [address] [place], [place] [address] Ketones (U) [Mass/Vol] 3+ Abnormal Negative [facility] Comment on above: Performed By: #### 2 470100, 8264318, 0955151, 8053213, 85414815, 8571705, 1082281 #### [facility] [address] [place] [address] [place].plasma/Lithiu m.RBC (Bld) [Mass ratio] 0-3 Normal 0-3 [facility] Comment on above: Performed By: #### 2 852085, 1855084, 6254143, 5079467, 07140308, 3396684, 4115337 #### [facility] [address] [place], [place] [address] Mucus Ql (Urine sed) TRACE Normal [facility] Comment on above: Performed By: #### 2 038497, 9283395, 3311187, 0555512, 29824488, 7409539, 1340012 #### [facility] [address] [place] [address] Nitrite Ql (U) Negative Normal Negative [facility] Comment on above: Performed By: #### 2 330895, 1891232, 0032416, 5867541, 19816472, 9471090, 1424091 #### [facility] [address] [place], [place] [address] pH (U) 6.0 [pH] Invalid Interpretation Code 5.0-9.0 [facility] Comment on above: Performed By: #### 2 503171, 2588364, 7790194, 2037770, 92825280, 3755621, 4573284 #### [facility] [address] [place] [address] Protein (U) [Mass/Vol] TRACE Abnormal Negative [facility] Comment on above: Performed By: #### 2 669333, 5517819, 6914677, 8403533, 93207269, 2503603, 5072843 #### [facility] [address] [address] Specific gravity (U) [Rel density] >=1.030 Invalid Interpretation Code 1.005-1.030 [facility] Comment on above: Performed By: #### 2 922984, 0133138, 6495356, 7346299, 76471936, 9702835, 8370560 #### [facility] [address] [place] [address] Type of Urine collection method Clean Catch Normal [facility] Comment on above: Performed By: #### 2 124487, 4677008, 4545466, 1800284, 07258608, 5896571, 2541629 #### [facility] [address] [place] [address] Urobilinogen Qn (U) 1.0 {Andrea'U}/dL Normal 0.0-1.0 [facility] Comment on above: Performed By: #### 2 083628, 0242342, 6461160, 4644337, 76936758, 3750784, 0880041 #### [facility] [address] [place] [address] WBC Auto Ql (U) Negative Normal Negative [facility] Comment on above: Performed By: #### 2 063445, 5991922, [id number], [id number], [id number], [id number], [id number] #### [facility] [address] [place] [id number] WBC LM.HPF (Urine sed) [#/Area] 0-5 Normal 0-5 [facility] Comment on above: Performed By: #### 2 [id number], [id number], [id number], [id number], [id number], [id number], [id number] #### [facility] [address] [place] [address] eGFRon 09-08-2022 GFR/1.73 sq M.predicted among blacks MDRD (S/P/Bld) [Vol rate/Area] mL/min/{1.73_m2} Normal >=59 [facility] Comment on above: Order Comment: Order added by Discern Expert. Result Comment: eGFR is race adjusted. AA=. Performed By: #### 2 [id number], [id number], [id number], 2959428, [id number], 0047382, 5920517 ####[facility] [id number] [place] [address] GFR/1.73 sq M.predicted among non-blacks MDRD (S/P/Bld) [Vol rate/Area] mL/min/{1.73_m2} Normal >=59 [facility] Comment on above: Order Comment: Order added by Discern Expert. Result Comment: Retail Sales Manager emil kidney disease could be indicated at eGFR's of less than 60 mL/min/1.73m2. Kidney failure is indicated at less than 15 mL/min/1.73m2. Performed By: #### 2 [id number], 0396349, 7667010, 3388563, 96208155, 1305327, [id number] ####[facility] [id number] [place] [address] CBC with Auto Differentialon 09-04-2022 Absolute Eos # 0.20 [facility] Absolute Lymph # 1.70 [facility] Absolute Owsley # 0.60 [facility] Basophils (Bld) [#/Vol] 0.10 10*3/uL [facility] Basophils/100 WBC (Bld) 1 % 0 - 2 % [facility] Differential Type YES [facility] Eosinophils/100 WBC (Bld) 2 % 0 - 5 % [facility] Hematocrit (Bld) [Volume fraction] 40.9 % 36 - 46 % [facility] Hemoglobin (Bld) [Mass/Vol] 13.9 g/dL 12.0 - 16.0 g/dL [facility] Interpretation and review of laboratory results Abnormal [facility] Lymphocytes/100 WBC (Bld) 18 % 15 - 40 % [facility] MCH (RBC) [Entitic mass] 29.5 pg 26 - 34 pg [facility] MCHC (RBC) [Mass/Vol] 34.0 g/dL 31 - 37 g/dL [facility] MCV (RBC) [Entitic vol] 86.9 fL 80 - 100 fL [facility] Monocytes/100 WBC (Bld) 6 % 4 - 8 % [facility] Platelet distribution width (Bld) [Ratio] 13.0 % 12.1 - 15.2 % [facility] Platelets (Bld) [#/Vol] 252 10*3/uL [facility] RBC (Bld) [#/Vol] 4.71 10*6/uL 4.0 - 5.2 m/uL [facility] Segmented neutrophils/100 WBC (Bld) 73 % 47 - 75 % [facility] Segs Absolute 7.20 High [facility] WBC (Bld) [#/Vol] 9.8 10*3/uL [facility] CMPon 09-04-2022 Albumin [Mass/Vol] 4.5 g/dL 3.5 - 5.2 g/dL [facility] ALP (Bld) [Catalytic activity/Vol] 73 U/L 35 - 104 U/L [facility] ALT [Catalytic activity/Vol] 17 U/L 5 - 33 U/L [facility] Anion gap [Moles/Vol] 11 mmol/L 9 - 17 mmol/L [facility] AST [Catalytic activity/Vol] 14 U/L NINF - 32 U/L [facility] Bilirubin [Mass/Vol] 0.4 mg/dL 0.3 - 1 .2 mg/dL [facility] Calcium [Mass/Vol] 9.3 mg/dL 8.6 - 10. 4 mg/dL [facility] Chloride [Moles/Vol] 103 mmol/L 98 - 10 7 mmol/L [facility] CO2 [Moles/Vol] 23 mmol/L 20 - 31 mmol/L [facility] Creatinine [Mass/Vol] 0.47 mg/dL Low 0.50 - 0.90 mg/dL [facility] GFR/1.73 sq M.predicted MDRD (S/P/Bld) [Vol rate/Area] - PINF [facility] Comment on above: Effective May 27, [...] 103 mg/dL High 70 - 99 mg/dL [facility] Interpretation and review of laboratory results Abnormal [facility] Potassium [Moles/Vol] 3.8 mmol/L 3.7 - 5.3 mmol/L [facility] Protein [Mass/Vol] 7.3 g/dL 6.4 - 8.3 g/dL [facility] Sodium [Moles/Vol] 137 mmol/L 135 - 144 mmol/L [facility] Urea nitrogen (BldV) [Mass/Vol] 4 mg/dL Low 6 - 20 mg/dL [facility] Urea nitrogen/Creatinine (Bld) [Mass ratio] 9 9 - 20 [facility] Coding Summary.on 09-04-2022 Coding Summary. [id number] Gh0bWw+PGhlYWQ+PE1FV SNsR80bhIYneL8JT5rKI T3ZRFIVFRSUNR9EBM8ej XH8NXrwT0AuqgXi GvhvtGUyJA92XZk1RAK8 mKkqZXvsoV7ukLDnG5y9 JaGmHL76fP70VCrxYXXa ZuJ8DvAtezaoqBBd U9iwUjGjjVHtKtl+PHRh YmxlIHdpZHRoPScxMDAl YvVdxWyvYL9xMn0wZKJj LWNvbGxhcHNlOiBj e2wlHECcSZfaDC2fjQku O7SieSX6JKFzu0f9Jg85 dHI+JJKlPNM5bUvvQRak b685CtRqk4buJPU2 oVQrCGloGCL2T39pm9S9 VBMyJDQeUXK0hVQ3zW5x zUlhvlpbJ6VtnTNwFyU0 FHL9tFTrhG1hoHvs pzutmZ4rSew+C88RBM6K ZZXDFC2KIfs1Z5HwVzvb dHI+DE47YOAlVG13pBVy pNZle8fwuSo2NnXo OXImNTF6pApbMDrpz1He NRIyA13tqHKpe5D6MMHo nDyltTNgXoDyhMM5aP9a QNjmtzxqf0reibao Vgaac0cpon96sC99W80p ADxdCTWoTUN4LSHiMUCh uSibwm0hxL3tAj7+IDxj x0niz1mchTb1WaAy EKYhkaPecXsvHTC5f0Ln Us50V6XmoDrtu4XvIqw6 dh01nATpf0Z5aHL0DLhp ZTFckE7eNHznTzJ9 FNBnZtBzxH96iNBoXEkl Rh2siAjyhWdgMZ6tOIGt wufnFTXccQ4vCAHgfPCm xLaoBE7xZVLtpfbw u902HlEbTDL0KCBquDKb V4MjxJ5rPaLrFNUbOKZx O4AghRSfUDspK840WDug GyB8KGPuweFeL3Dj MYChtQeqPwQ0o7J1Io1Y f2MopmhtARA8HLceFCPo KsJgGtVsRkG9A1EpCit9 GDBsmFahFC6gU1Mn VRGdhhbyvlofaBI3YPTn AGQucX66tDSuPHazFx8q l1O4z631NLPzJAOivO94 Mb0npQumIHKrsUVE kZ9hebjlb7ltsztyVqWy IMXaIBm2VAz1UFGukYeh FbEyVCK1CbX6ZMP4rGSb iC7hrRvpqmoalX7v Oyc+V61xeZ6cJRD2XNE7 fhusJEOfxoPcQX78EM70 K7CyZtybwRXlcKV+PGRp jdSmmVxyOX4vNvDv p7uul1OuAKqcE0LpAKTw GZxjRbg0RZDrSBN1tRI1 yP9lQURzAQapb4L9eIX5 I4NamqEkae9aj3xc RBYgIZslU48ehAClb6U4 SLLsxJC7PEMhiDzcJnLk hL04Kgc+WNZnrBgld9Aw Dujrq6jmp4jhnTq5 IjMwJSIgdmFsaWduPSJ0 o0SpBh37R93pNWuxJGGg DAHrSIFnXSXivLqnht9n aC7zSq8+PGNvbCB3 fNA0eB6fQYZhRkC3CVlj Z508FxBnlRZxChwxe8yo x5qunEn5DvIqACFyrpWd tUcaZCV1t1UcHw87 B67oFQcqITCgQEVvUEMn EITeeEniqv9iuZ9uXe7+ VW1zw6gqfw33gT55vWD+ FOXzJCH2zZypLYeh XDKlfE0nIYsnPxD2XYMt WfEczP21zDLrSDwlKs0m hQgikHdiAE2kWEStaaqm l056TrVro7ooJBVi fAMdCDmaUIA1V16on7Y2 OTRrVWEyVUQ0zBP1pG5o bGlnbjogbGVmdDsgdmVy oQnfYViiSVefX411 IHRvcDsnPlBhdGllbnQg SeRtLLk5R5XkDxb3NIGu zUevKN2ywHLzUWjsGu2m gVqhuUwrXX8gOVId zjomr077WdDdx3neHBXk hJQwZCjoFIP7X47tw8U8 VYBvTECiYKT8aKM5hC3v bGlnbjogbGVmdDsg daRgxBqoNMvrVVqbY200 IHRvcDsnPkJpcnRoIERh wID4OY87KW76lRIrq2F7 dNI7D1ZeHICwbkry ydghuJG6BLXpCIHfzZ60 Wu8hrXhjPf8tETVkGNK0 HFJelAGzX8XegY7uEyOo YDVhZMFxS1NbrZRv MOgfA909HUgwNfS9VVVe vhCnM3GmIFQisCoqLrS3 k6E1Ty5CE1E8RN43PN58 cIVgh8N3pOV9H6Su IPJdvybimpwzzJY9JKYm WNEmtF52Hh4czTmaNd1r YBVrKHX3IVVdfQPpG5Cf bQ2yBrRnINIiGHTy S0YdeHTsZOlhR528UMjk PnJ9KLXcexSxV2LgKRHq hFkhQsK6o1L9Yg3SZMd3 DS89DW94kBLdp1F1 dNZ0U9TiHYWzhwrgzqxb iMD4BLCzWBYdaU82Ky3x aYsxQa0qXPOhTIU2TCGh sXDoJ8WzqY6fQdYb DWFlXLRyU6LzpGJkJJzd R342BArnKxV4WPNeroJo A8KeBDUiiVxiQkC5w7B4 Nv4GESAbUJ32OGK7 eTO6JQ10LZ15W8GnRkyb dGFibGU+PHRhYmxlIHdp ZHRoPScxMDAlJyBzdHls SW9bXh2jVIKsJMBu oDqsjKHsEsEbn4ezRIUm YRumBT3wqJsdU3MidUD3 APOui1n0Mj48L55qN4Qj dXA+ZTJvzZB2tAS3 fK7eLzRsDyC2PMnmN450 NuEpgBMpNbbop1cod2rw eGi9EjT9PRNaswKwdGuo YOT9s1SkMz75E50v IHdpZHRoPSIxNSUiIHZh hOcipj0xrD7wVf5+PGNv nHF0mZG3mU6iXvIgMxK6 QQbjS497MyUwwVQw Ebvbm6nvq2btaMy4DbCz HEAuaaMmmUtnTAE4f7Rm By04Y2BnxAbyd0VlUlu7 io49oBDde0L2yUE4 N1HvLGHawnflnWDfzFqe BX7zSUWpazpvHPZfdL4y MIRoM3q9NwRzEdO5DBor I1QqvzM9NVLxmVLk PPxjBPR7Q02ef9J2ELFt XPKdLBD9cTG8zI6cwShq bjogbGVmdDsgdmVydGlj ZJecEXixI609VZXq lYhjUNPoyG3sXOLatJKy vCccAF7hWCIsuektPl3S FAUYHHYXEKIBWQRXXS7R VW31Z6YtHtj0OVPi iIosYS1maOSkNNpaDo0f gVzbzNqgQZ4xTTTyjsmq LOOsoY5nICEaqECzqPdo OA0nAGXhxlgcd988 XfGvBFW6GNDjgVBkB8Xo aF0uWaCtNIZgCWUgJ8Kp dZFdZCujI668HUnnWvB6 GSLgmrAiH5EcFMVt pSdtLfQ7n9E1Ia0eIA8l SU5oZZRmRI43HQ52rLUv v2B8dTB5H8XpXVBhostf ytyyyLI4KTIlXNOo hK18dHHwOMjzTf6ju6B5 f812KDXtFAXznR66Sq4o oGvoPEHcnBMJkA1hqlnd i7svduuzJoVrFAPw JTb5KGa1ZHXvdIxuRwRp BBU2NnK0WXY2cIMmgH3j aHnvympvpV2nJni+MjEg VEBraeB9M3ToJqn1 TOVqpXjpJB4qdSGtQTkw Ru5ynLmqlZtwXC2mNJNn jgioHQVtfL7gPSItcMGm bBjoMA4qISScxcxq k049BoIaWAJ3NTMocNLf S7IfcL0kAyRsRNWzVTLb T0NklQVrGPzfH564FRsh EiF3MNUyinZeJ3Lq ENDdiXjyLzU2e5K8Hm5T UE3kuQA7U6BnMgg3DNOp mUlxSZ0ymCAaMZopGg8f gBrwuKovYF1oYTOo tlloZFQtuC2bWJGhcVSs yMunQE3aXHYbnosxv003 XnVqWUZ3RZFuvSJeQ2Tm gD2sDbZoQTZlDODa T4JtgORvIGlmV536TKwn TrI1CAXviwJkU7CfPTNt pHetKcA9k2S9Ik5CdRCh H3GmJ1l9I9MgVqnp dHI+HO71NLOfOG66lWTq eAXzo5gwoFg0JxJrXCGj SNV7mYrfHOsdp1GoIWSl Z77tjSTcf4C3SPSi lGnfvFIdLvOioKQ1jJ7j TNhzjqlxr5wtlhqtPohh b1zabt89eP96A84kOZbr ZHRoPSIzMCUiIHZh rGksli9iyK8fHo7+PGNv kNH4zDE1qJ6qIkHhQrQ2 FNhsW894QoNnsPXxNlji j9ztd8mzyTk3ZhLu AEYaaiVrgDpiOPS7z4Lo Ww11X92zSCbxOTSxWQGc YXHwGCVykYjcxs8wpJ0m Ii8+KH0dn8gfzr65 wR84hJA+DBAmLHE0hNxj RRarTSCcsU1xSVrbGoP5 PZPpZvOvnM43mMCpVGsc Bt2cpLpznLukQD1y NDBpqeomr383LyZbx6to TEHhxQFbTIcwRPH7H83y u6K6OWNfDRFgTFN4fIT0 vK2yjYyubfhnpXZh dDsgdmVydGljYWwtYWxp Y998ZEAccPetJqFcvQJe P2rgfiLLFH7xFekudEH+ XJAnZKB5dZvdFUfy ITJhpZ8lTQJiK5s2GuXx AyO5PHjjA0PtuqA8PTUc yQGhCMSygMUSuN2hmtdu j6qtsphrMpTaRSLm OJh5OTz7RZPyrDnzApCl QBO5RgS9FCV6bEAlxV7q iZhhvugjxG4iFsz+RklO OjwvdGQ+PHRkIHN0 cJtbQJpgIFXfrU9tQAFb F9a8ZfYbElJ0WUbrY0Oi jvO9FYDnpSBcDODgzOWX tB0tnlwep7mztadt XfTcKYYuTWc7UDj8XCSe fZakYwHxCKF1OsC6PBQ0 lXRcaR7evHlvhmxmgW7c Oyc+TVJOOjwvdGQ+ IYCuGTG4tQyoLZasTHJk kN4xPSBuN4g9MvPhJsT5 YCjsG8PfmzA9TDHgjGSy NBHqtSDGoF9qnrbw k5taqnsaGxKwXXXuTGr4 BOn8JMUxxUmiGiLdNRZ8 ZkS2TVU2wSKihR6akCod mpuieX2gObl+UGF5 YRQ3YU72TH52N7PmUlhf dGFibGU+PHRhYmxlIHdp ZHRoPScxMDAlJyBzdHls SS7nWa4wNZDiMUBr bGxh (more content not included)... Normal [facility] Drug screen multi urineon Amphetamine Screen, Ur Negative NEGATIVE [facility] Comment on above: (Positive cutoff 500 ng/mL) Barbiturate Screen, Ur Negative NEGATIVE [facility] Comment on above: (Positive cutoff 200 ng/mL) Benzodiazepine Screen, Urine Negative NEGATIVE [facility] Comment on above: (Positive cutoff 150 ng/mL) Cannabinoid Scrn, Ur Negative NEGATIVE [facility] Comment on above: (Positive cutoff 50 ng/mL) Cocaine Metabolite, Urine Negative NEGATIVE [facility] Comment on above: (Positive cutoff 150 ng/mL) Methadone Screen, Urine Negative NEGATIVE [facility] Comment on above: (Positive cutoff 200 ng/mL) Methamphetamine, Urine Negative NEGATIVE [facility] Comment on above: (Positive cutoff 500 ng/mL) Opiates, Urine Negative [facility]GATIVE [facility] Comment on above: (Positive cutoff 100 ng/mL) Oxycodone Screen, Ur Negative NEGATIVE [facility] Comment on above: (Positive cutoff 100 ng/mL) Phencyclidine, Urine Negative NEGATIVE [facility] Comment on above: (Positive cutoff 25 ng/mL) Propoxyphene, Urine Negative NEGATIVE [facility] [place] [facility] Comment on above: (Positive cutoff 300 ng/mL) Tricyclic Antidepressants, Urine Negative NEGATIVE [facility] Comment on above: (Positive cutoff 300 ng/mL) Drug screen results are to be used for medical purposes only. All positive results are unconfirmed. Testing for employment or legal uses should be sent to a reference laboratory for confirmation. [facility] Urinalysison 09-04-2022 Bilirubin Urine Negative NEGATIVE [facility] ScheduleThing Color, UA Yellow Yellow [facility] Glucose, Ur Negative NEGATIVE [facility] Interpretation and review of laboratory results Abnormal [facility] Ketones Ql (U) MODERATE Abnormal NEGATIVE [facility] Leukocyte esterase Test strip Ql (U) Negative NEGATIVE [facility] Nitrite, Urine Negative NEGATIVE [facility] pH, UA 7.0 5.0 - 8.0 [facility] Protein, UA Negative NEGATIVE [facility] Specific Fraser, UA 1.010 1.005 - 1.030 [facility] Turbidity UA Clear Clear [facility] Urinalysis Comments [facility] Urine Hgb Negative NEGATIVE [facility] Urobilinogen, Urine Normal Normal [facility] Auto Diffon 09-02-2022 Basophils/100 WBC (Bld) 0.8 % Normal 0.0-2.0 [facility] Comment on above: Order Comment: Order Added by Discern Expert. Performed By: #### 2 126304, 8205112, 3107152, 2212860, 30564487, 9387866, 5608484 #### [facility] [address] [place] [address] Basophils/Leukocytes Auto (Bld) [Pure # fraction] 0.1 E9/L Normal 0.0-0.2 [facility] Comment on above: Order Comment: Order Added by Discern Expert. Performed By: #### 2 657366, 0746160, 7435114, 8257657, 62175082, 4666875, 4872610 #### [facility] [address] [place] [address] Eosinophils/100 WBC (Bld) 2.5 % Normal 0.0-8.0 [facility] Comment on above: Order Comment: Order Added by Discern Expert. Performed By: #### 2 944214, 9225134, 2714098, 3452417, 02583955, 8994924, 5433713 #### [facility] [address] [place] [address] Eosinophils/Leukocyte s Auto (Bld) [Pure # fraction] 0.2 E9/L Normal 0.0-0.5 [facility] Comment on above: Order Comment: Order Added by Discern Expert. Performed By: #### 2 292625, 9300119, 2779626, 9304145, 25754158, 9701962, 2073656 #### [facility] [address] [place] [address] Lymphocytes/100 WBC (Bld) 18.3 % Normal 14.0-50.0 [facility] Comment on above: Order Comment: Order Added by Discern Expert. Performed By: #### 2 748485, 7585315, 8492939, 5712115, 43981139, 9802157, 2046917 #### [facility] [address] [place] [address] Lymphocytes/Leukocyte s Auto (Bld) [Pure # fraction] 1.6 E9/L Normal 1.0-4.0 [facility] Comment on above: Order Comment: Order Added by Discern Expert. Performed By: #### 2 154175, 4909262, 4004352, 3849583, 53378039, 7410838, 4727422 #### [facility] [address] [place] [address] Monocytes/100 WBC (Bld) 6.8 % Normal 4.0-14.0 [facility] Comment on above: Order Comment: Order Added by Discern Expert. Performed By: #### 2 288281, 8590345, 1553585, 1201826, 69600720, 7368860, 3967247 #### [facility] [address] [place] [address] Monocytes/Leukocytes Auto (Bld) [Pure # fraction] 0.6 E9/L Normal 0.2-1.0 [facility] Comment on above: Order Comment: Order Added by Discern Expert. Performed By: #### 2 607823, 5761334, 8766283, 6744046, 09593107, 9249417, 4600212 #### [facility] [address] [place] [address] Neutrophils/100 WBC (Bld) 71.6 % Normal 36.0-75.0 [facility] Comment on above: Order Comment: Order Added by Discern Expert. Performed By: #### 2 429253, 4838842, 6290832, 5170654, 00302185, 0086455, 6435425 #### [facility] [address] [place] [address] Neutrophils/Leukocyte s Auto (Bld) [Pure # fraction] 6.2 E9/L Normal 2.0-7.5 [facility] Comment on above: Order Comment: Order Added by Discern Expert. Performed By: #### 2 386960, 2095360, 9671256, 4105209, 40871759, 8656104, 1781325 #### [facility] [address] [place] [address] BMPon 09-02-2022 Creatinine [Mass/Vol] 0.4 mg/dL Low 0.5-1.3 [facility] Comment on above: Performed By: #### 2 529188, 0631870, 5902018, 7885117, 23438754, 7158464, 5964681 #### [facility] [address] [place] [address] Urea nitrogen [Mass/Vol] 5 mg/dL Normal 5-21 [facility] Comment on above: Performed By: #### 2 897069, 6097483, 8783439, 7109264, 60390711, 6533944, 9355522 #### [facility] [address] [place] [address] Urea nitrogen/Creatinine [Mass ratio] 12 No Units Normal 10-20 [facility] Comment on above: Performed By: #### 2 257124, 7485976, 5892683, 4761426, 52485637, 9535895, 6288625 #### [facility] [address] [place] [address] Anion gap [Moles/Vol] 12 mmol/L Normal 6-16 [facility] Comment on above: Performed By: #### 2 140486, 2067429, 7345916, 1566168, 01591764, 1104150, 6853937 #### [facility] [address] [place] [address] Calcium [Mass/Vol] 9.0 mg/dL Normal 8.9-11.1 [facility] Comment on above: Performed By: #### 2 897442, 7165853, 3172969, 0243480, 36276730, 2261795, 3763671 #### [facility] [address] [place] [address] Chloride [Moles/Vol] 103 mmol/L Normal 101-111 [facility] Comment on above: Performed By: #### 2 794854, 8050735, 6295238, 6128621, 09392741, 3747044, 1939616 #### [facility] [address] [place] [address] CO2 [Moles/Vol] 23 mmol/L Normal 21-31 [facility] Comment on above: Performed By: #### 2 658092, 7297092, 5432883, 1145073, 11270863, 3188583, 8849888 #### [facility] [address] [place] [address] Glucose [Mass/Vol] 96 mg/dL Normal 55-199 [facility] Comment on above: Result Comment: If t his glucose result represents a fasting glucose, interpretation should refer to the following reference range: 55-99 mg/dL Performed By: #### 2 484347, 2592370, 9696283, 8910744, 30245838, 9527856, 3530886 #### [facility] [address] [place] [address] Potassium [Moles/Vol] 3.3 mmol/L Low 3.5-5.3 [facility] Comment on above: Performed By: #### 2 066083, 3249459, 2701752, 7862676, 57139418, 3059319, 7533399 #### [facility] [address] [place] [address] Sodium [Moles/Vol] 135 mmol/L Normal 135-145 [facility] Comment on above: Performed By: #### 2 199709, 2851757, 0469964, 5181172, 67215438, 3605024, 9391598 #### [facility] [address] [place] [address] CBC w/ Auto Diffon 3 Erythrocyte distribution width (RBC) [Ratio] 13.0 % Normal 10.9-14.2 [facility] Comment on above: Performed By: #### 2 592335, 0707944, 1370156, 0618776, 71570454, 9698734, 7354592 #### [facility] [address] [place] [address] Hematocrit (Bld) [Volume fraction] 38.7 % Normal 34.0-46.0 [facility] Comment on above: Performed By: #### 2 344324, 4776161, 5418806, 4792901, 52653935, 7543569, 0352721 #### [facility] [address] [place] [address] Hemoglobin (Bld) [Mass/Vol] 13.2 g/dL Normal 12.0-16.0 [facility] Comment on above: Performed By: #### 2 518313, 4633220, 8773858, 0778389, 45936234, 8083243, 0612344 #### [facility] [address] [place] [address] MCH (RBC) [Entitic mass] 29.3 pg Normal 27.0-34.0 [facility] Comment on above: Performed By: #### 2 496073, 1521516, 3191767, 0150530, 44654188, 6687975, 2857070 #### [facility] [address] [place] [address] MCHC (RBC) [Mass/Vol] 34.2 g/dL Normal 31.4-36.0 [facility] Comment on above: Performed By: #### 2 811327, 5982036, 0561528, 4292682, 37081420, 6227586, 6957979 #### [facility] [address] [place] [address] MCV (RBC) [Entitic vol] 85.6 fL Normal 80.0-100.0 [facility] Comment on above: Performed By: #### 2 [id number], 4443651, 0139897, 1044209, [id number], 4060554, [id number] #### [facility] [address] [place] [address] Platelet mean volume (Bld) [Entitic vol] 8.2 fL Normal 6.4-10.8 [facility] Comment on above: Performed By: #### 2 825898, 7607809, 2526158, 1673009, 60766908, 9460019, 7665709 #### [facility] [address] [place] [address] Platelets (Bld) [#/Vol] 281.0 E9/L Normal 150.0-500.0 [facility] Comment on above: Performed By: #### 2 802908, 0071962, 9842669, 3672219, [id number], 3476699, 5921590 #### [facility] [address] [place] [address] RBC (Bld) [#/Vol] 4.5 E12/L Normal 4.3-5.9 [facility] Comment on above: Performed By: #### 2 644768, 3368158, 2803558, 4350387, 13010555, 4345760, 6032390 #### [facility] [address] [place] [address] WBC corrected for nucl RBC Auto (Bld) [#/Vol] 8.6 E9/L Normal 4.0-11.0 [facility] Comment on above: Performed By: #### 2 102824, 8668998, 5180029, 7840166, 07249791, 4190887, 7333983 #### [facility] [address] [place] [address] Coding Summary.on 09-02-2022 Coding Summary. [id number] Gh0bWw+PGhlYWQ+PE1FV SNxO96rvJVooN0SL4cXM C4AORGYUFSFYR6OQW5fo DM2MCwbX2HmwrZw GqondLFePW55MGc0MNJ8 cYzsADokfR8hjRBlS4t7 EbOtUJ97rH53LDprGQBe VlG9GlWqljezsVBs W2onDyNpcRRxKhi+PHRh YmxlIHdpZHRoPScxMDAl OmEflClpQE2aKz0xYFGx LWNvbGxhcHNlOiBj g6ehSMUxRWahDN6ihMqx I4KgsVD7QVXla8v5Pk28 dHI+CIPuZAZ6gIivJXoh l028FeDor9frWYF1 xACcZOylSUF9U73dj3J8 MLIzZLYiDKR2gPF6oH1t kHakgdiyK1DdvXMeZaR3 GAG2tRWuuO6ueSsi sufoxQ3uTqp+O31YXX9R ZGTDQK8HTey4K6QiCkxu dHI+AV67BCNvJK62xGYs vRDzo0svtRu0PnPh CKVhOEK7bHccCFwwu9Jo OWTtY64alEPkg0L9TJNz yWucpCElEaKsvYZ4gH2m BKryzptic2klgtod Mqwsq6bkdl44fX97I32k VOmpDLLrGRX7JIJmLIVz mUoqha1quJ5tUi4+IDxj m8qgu0xfpYl8NaDz MQFuupIduDgiQWW5y2Wa Tn36S8WrgNfsi5FnAez3 pw39vEYkd8M8jUN2FOwh WOUuvD3kFQxjBjX8 JZWnYmQpgY85gQPzVKue Fq2kzCciaGqzRG0nWKYx cvskUEEtkI1nWCLwiXCs iPqzNZ9jNHSkzzor f491OqOkHAZ8XABvoQYl F5PngG5rAxDmWBYaCHYs Z7JhpVWeIJnyN266NXxv OzF7FTEtcoRbJ3Bw LNPcrFmbMoQ0d9H9Of6D b0CubmanCHH4FFheNWKu KwO8YiVzHuT6W3ZxHsq6 CWQdzVkrNP6aB8Ow HOLphkqhopxfeUO1ZYZw DZHleL81tKVfRCrbPm2d p6Y7c842VAPvSFSkoP50 Qv3tkYszPZIfiCDH wT0cfuuuf7mxtfdrRuDe RLFoLHt2HEg4NBYhtMcr HeDbESR6SdV4QAH2tMFr qE3adVekeqzniU8c Oyc+X05fcE8eGUY2JST6 xdxdEUEkuvTsJE89EY85 A4GrPyqbwWFrkIS+PGRp ijAgnWvnJI9eErQo q0jsf9OmATpkY2ViTZQv KObkWok5PXCwROJ3oTM7 iX6eVAOxUTpxv7S9kZH6 K6HjlzYmng8jd1na CYLbMFjqA49fqVPxh3F3 MPYkqSE2DQIsuDrnMyGq yE43Tzt+EZSmlLxoc8Px Yqaij5lwq5qjfKh0 IjMwJSIgdmFsaWduPSJ0 d0GgJw78D56fLLwlLITo ZUYqJQVeTBYxfRvkrq9w bT8lHj7+PGNvbCB3 mTO5eE2rCMTyHsG3JFlj P380QcKyuJGzGhkmb8bg d5jhkQb6GmFiESAjciGo qXarEJK0v0YdDg71 J43tIPrcNMGkJFPjONBk LFIykUklyw2leR7vGo1+ LL0om0pflz84qW03qYO+ WPCfDFI8lBhlDYie OCOqyU9eDPjhAeQ3OZMu JrQweI68kLDxYIppUq3b yLocxGwoQN7pAOItnuyk q545PmDzl3heQXFr qXTfVHlyQWM2U26la9A4 IMCvLWTdEQV8dKU3fM2v bGlnbjogbGVmdDsgdmVy lVlkLQzyZJtbK081 IHRvcDsnPlBhdGllbnQg XkJbQGo0C4KtNxc2IZWe bRqsZN1bxYKqLHqzOd3s wHgsrBjfXO1gWYOc ofyxi890TqEnk5ehXTWk tQDhPOiaEGI8Z70vm9C8 FJXyRDAxYPO7uHJ2aY0v bGlnbjogbGVmdDsg jiQhmKgwJYwkRBfhW069 IHRvcDsnPkJpcnRoIERh iNH5KR75NQ27wQOgc2R9 kOG2N0MhMOWankyb hfzatRO0BWGnTMOwfP28 Mv0pfQbnHt2fPHGtGQB5 LNSotSDzC7OguS0iHtJg ZOScSQJzD3LqmGUs GKfzS450LIhtBlD9CXPr wbUyO4TxQMYbxBtdMaF0 o2Y8Du8QK0W8RA76EW86 eGWoj2I9oUY5M3Ub DDYpbzodtireqQG4ESKq RVMjaS96Si9ywZkePy0i PTJbXSD5YAIvaIQqC2Wq gM5yToZkJRDwQTMh N0BbnEIuZPxcY947LHbh WhF8DDWwsuQkL6AsKACz tQhlRrK2v5L5Be4JSVf0 GI32YI91eDQjz1I0 iCC6H7IpSRLzrtuglcow lIB8GSBfZWHbzZ84Vh2h jMuqOd6xPNFvTIQ2ZQDm oSMiG3BhvL6uStSb PGOuKHGiY6ZpvCAoCDxg G087XUdgRzH8PDHvaiSg M8FeXZFcpIzpWhW2g4P1 Mg6RZRVgBY68NPZ8 nPU1BK32UM23C2VwTmja dGFibGU+PHRhYmxlIHdp ZHRoPScxMDAlJyBzdHls QK9cTt0xHNVjNOPs rPvxjICsCmFzz8fxJAYl FLwsEC4lgGohA3XaiTR4 ITYdp2e2Qu48U68hD1Nl dXA+OUTfhPT0lDV4 xV9bZxPvSkC4JNqqZ209 CjIhxJUiInjzq2guy5gv vWx4YuG2YCWcefVruXed SSE4b9NlVf13B66o IHdpZHRoPSIxNSUiIHZh rIvnbx4soP1iSq3+PGNv hUD8vYE5lY3cGuLkXrT6 MZsqC545HvNtjGEk Vrefj5qyu4lqtNi5ZoGt SDSeyeQisQfeZYS5p4Sl Vs30X2KxkXclz4IrZmw4 ee97qSKxc4R8hRE1 M7QkQORhxdfidARraUdo KD5bQCRdyonyYWNkrV9i CPMiW4v3BkIvHpG0NCxa M1NfwoG9IYBnuBRp RCyxHSV0X84og6G6SZTj IMJlIFK0kFC0fH1dhJsc bjogbGVmdDsgdmVydGlj JIlbZNgiU238UKZu zLafZMXzmM5aTMWidLYq rXbaRJ6aULKjewpsZd0P JQSSOQGIZKWNRMCQVO0R KQ74T0TxPyf6NXRa iLvxFH5fqBIcVNtaGf4q tMvheGmvQY6pDHGyptlu JBMawB5wCJErwACvcDps IF0zQXExumhfh348 LiLaDFO5XRXxnIGvR5Av fM1gZjXcCVJoZAFcY1Qj gDYzAZbrL406KGrwQhP6 CCPpakTzN3HcBUZy nHuiOaU1y7T1Fy1hWN7m UT4gUYTkLH22EQ78uZZt k7S3pKO6Y1OnCJGgpoun zlxyfJF7UCJiPVHq jQ36oMGeUScbSv6jg7T5 c906CARfXFYtfM58Fo8q qDndBIPqoIXVfM7lihvb p2dskhbaWgLjVFTd BYs7LEm5MYWmfHmvWsMe HPE3FmM0YCW8jRTwpE0d wWpskbqvrP3cBih+MjEg FOMwidE3J0XrNsh4 SKHlnQsgDC5opHQlVFgh Km6euKrayGlcGQ9sNWBg putoZJBjtB9pKQOfwXIi oNfwVH4jAGVofejd r144BjWhBJA7BUFldUOe I4LaaK3sRgJrYLBpPWLj Q0UisQAkOMizS414KOxx RdE9KJQhorYoK7Kx QPCthUibAhC2a1D9Yr6V AB8aiNG4A1UyXpb8KDLu qSazCS9wjSVkTDhnZh3n sXmqeCatOZ9sNOOf cqdtVCQpjC5oURAixLOc kQpsVM3dHAEapksmj040 KdMlOBA6FOPieZXsT9Oj aE7mYyClPSJcJFCr Y7EnuWUqHClvB708HXtk YgM2GXBlquGmB2NgVUNg rVzsFgY3x8J5Rm8NdMIp M0VdB3y3X7WcHtpt dHI+AJ84SNMxRS88oJOr rGZnw5yepMu2RsPaVPDg QJQ8hEagOYbzt1MgPRDz I45qoUNsb3I9PPFs hVgpgZTjJiSgkLR8wF5g RMadumzxr8zaeiabRbin l6oaum15xW00N75qBQze ZHRoPSIzMCUiIHZh vFwalg5bwD9gAe5+PGNv bED5yLS9lZ1dGoTsBoM2 LCeoF107IdSodSQuSvpo j4tlp5evmRe7ZbHf EMZfrrIvaVaaFEX8k4Is Sk87H95zPPnaPAByYHJx SAEiSWQsrRfpef9xxF6z Ii8+KC7bf1zawi01 jZ52mQO+FSDrXFB1hPen FNikIRJvnT5zVJteRvM2 BXRjPiLopX77fDAbEJee Mb2iuSninVpiXL8x LJAohhftr765GoFqe1fj IOMssJWuWKqzDCQ1P82l n9Y1ESTcBLCoXZC5bQC4 zP1fxPhtdcyigWSy dDsgdmVydGljYWwtYWxp F898HKBiuXdfNsCwpDMt J5sueoSBQG5dNksewME+ KBEcDVR0iMlfIBmf QCZkcN3cZULbK4o8LdPa SfW3TSjzD7TvjoZ8OAWm nQUjDFTxtVRSbB5crcbs a4hkndefUqFlLUBy ERb6PIl7HVHqlIcxDlFs WXX8EoA8GHF1zLBgmD9y iKcyfmabhJ3aNhq+RklO OjwvdGQ+PHRkIHN0 cJyaHUwfMIBzqM8eXGZk D1x4XyRjMoV7HPeyU3Jf tqV3QIWqfHQmDPZygRRN aC2hjxvmi9vcknum ExHdZENmQVy2EUu2UCMg yIveQgJcGNZ8MpM0KUE3 dZOpcC6peVkhxnodiQ8u Oyc+TVJOOjwvdGQ+ LEHlFME5wOutWCwwDJSj yJ6bLHJrH9e9EwEzFtK8 SPigO9WbhaT7GIGmqCZi LGZljJACjM4hfgrg x5nkpjxnEwTiISWxXPb4 NPf8PIFxcXskUqXyGHQ2 GgA9TWH8hCHctP2jgUph bamiuP7xFcu+UGF5 IZJ5IX73ZS42S1QnKhrk dGFibGU+PHRhYmxlIHdp ZHRoPScxMDAlJyBzdHls ZG6pPb4nXJKqCYOx bGxh (more content not included)... Normal [facility] Consent for Treatmenton Consent for Treatment [id number] #1.00CD:127 [facility] Discharge Instructionson Discharge Instructions [id number]#1.00CD:127 Normal [facility] ED Clinical Summaryon 2022 ED Clinical Summary [place] [id number] ED Clinical Summary Person Information Name: ROQUE PIERSON/[facility] Age: 22 Years : 2000 Sex: Female Language: Ukrainian PCP: Caryn Aviles MD Marital Status: Single [...] 09/02/2022 01:12:07 09/02/2022 01:12:07 09/02/2022 01:12:07 ADDRESS: [address] [place] [id number] PHYS DOC NOTES: MEDICAL INFORMATION: Prescriptions Given: [...] Address: When: Caryn [place] [address] [facility] () In 3 days DIAGNOSIS: N&V (nausea and vomiting) Normal [facility] ED Note-Physicianon 09-02-19 ED Note-Physician Basic Information [...] In [address] [place] [address]- Business (1) Additional Instructions: Patient Education Nausea [...] (09/01/22 22:50:00) (more content not included)... Normal [facility] Comment on above: Result Comment: Elec tronically Signed By: Coleman Ludwig DO\.br\Date and Time [...] added (diluted fruit juice). ? Eat bland, kkmx-ku-yjhmbh foods in small amounts as you are able. These foods include bananas, applesauce, rice, lean meats, toast, and crackers. ? Avoid fluids that contain a lot of sugar or caffeine, such as energy drinks, sports drinks, and soda. ? Avoid alcohol. ? Avoid spicy or fatty foods. General instructions ? Take ckor-bhz-mucvfpb and prescription medicines only as told by your health care provider. ? Drink enough fluid to keep your urine pale yellow. ? Wash your hands often using soap and water. If soap and water are not available, use hand correctional agency director. ? Make sure that all people in [...] and drinking to prevent dehydration. ? Take lewj-ggl-cgvvgdu and prescription medicines only as told by [...] 08/11/2006 Document Revised: 12/03/2019 Document Reviewed: 01/19/2019 [employer] Patient Education ? 2019 [employer]. Normal [facility] ED Patient Summaryon 023 ED Patient Summary [address] [address] Patient Discharge Instructions Person Information Name: ROQUE PIERSON Age: 22 Years Arrival Date: 09/01/2022 22:21:17 Discharge Diagnosis: N&V (nausea and vomiting) Primary Care Physician: Caryn Aviles MD Provider Information Primary Provider: Coleman Ludwig DO Advanced Financial Writer:None The exam and treatment you received in the Emergency Department were for an urgent problem and are not intended as complete care. It is important that you follow up with a doctor, nurse practitioner, or physician?s expanded duty dental assistant for ongoing care. If your symptoms [...] With: Address: When: Caryn Aviles [place] [address] Business (1) In 3 days In the event that this physician does not participate in your insurance network, please consult with your insurance company to find a nearby participating provider. Patient Education Materials: Nausea and Vomiting, Adult A MESSAGE TO ALL PATIENTS REGARDING OPIOIDS PRESCRIPTION OPIOIDS: WHAT YOU NEED TO KNOW Prescription opioids can be used to help relieve vecczlyo-xf-pxtcgr pain and are often prescribed following a [...] be struggling with addiction, tell your health daycare teacher and ask for guidance or call [facility]?S National Helpline at 3-292-810-LSHX. Source: [employer] Department of DNA SEQ (more content not included)... Normal [facility] Hep Func Panelon 09-02-2022 Bilirubin.indirect [Mass or moles/Vol] UTC Abnormal 0.1-0.9 [facility] Comment on above: Result Comment: Resu lt verified by Discern Rule. Performed result UTC (Unable to Calculate) was sent as an Alpha code due the inability to calculate a valid numeric value. Performed By: #### 2 881226, 5776167, 2413695, 8262650, 91908864, 5684569, 8531879 #### [facility] Laboratory [address] [place] [address] Albumin [Mass/Vol] 4.2 g/dL Normal 3.3-5.0 [facility] Comment on above: Performed By: #### 2 960616, 6712964, 5847514, 5374176, 04351013, 3603888, 1643032 #### [facility] [address] [place] [address] Albumin/Globulin (S) [Mass conc ratio] 1.4 Normal 1.1-2.2 [facility] Comment on above: Performed By: #### 2 284363, 5686747, 7753125, 5249250, 54684055, 7059886, 8180546 #### [facility] Laboratory [address] [place], [place] [address] ALP [Catalytic activity/Vol] 63 Int._Unit/L Normal 21-98 [facility] Comment on above: Performed By: #### 2 666661, 0956774, 3298977, 0473570, 07390787, 2748547, 3427717 #### [facility] Laboratory [address] [place] [address] ALT No additional P-5'-P [Catalytic activity/Vol] 29 Int._Unit/L Normal 6-46 [facility] Comment on above: Performed By: #### 2 495602, 5591882, 3608476, 3741945, 64528176, 1393814, 0492878 #### [facility] [address] [place], [place] [address] AST [Catalytic activity/Vol] 18 Int._Unit/L Normal 5-43 [facility] Comment on above: Performed By: #### 2 229409, 8151967, 2415048, 4191769, 93136583, 8633724, 2293425 #### [facility] [address] [place] [address] Bilirubin [Mass/Vol] 0.8 mg/dL Normal 0.0-1.1 [facility] Comment on above: Performed By: #### 2 861521, 0382333, 4525608, 2532069, 79755262, 1645933, 3690993 #### [facility] [address] [place] [address] Bilirubin.direct [Mass/Vol] mg/dL Normal 0.1-0.4 [facility] Comment on above: Performed By: #### 2 579202, 3308596, 4578032, 1875345, 15662309, 8561552, 7495325 #### [facility] [address] [place] [address] Globulin (S) [Mass/Vol] 3.1 g/dL Normal 1.4-4.0 [facility] Comment on above: Performed By: #### 2 710521, 1413170, 9676345, 3996234, 41353005, 4156763, 9236212 #### [facility] [address] [place] [address] Protein [Mass/Vol] 7.3 g/dL Normal 6.0-7.8 [facility] Comment on above: Performed By: #### 2 943627, 8076239, 2274308, 9141576, 62029023, 4308429, 3670183 #### [facility] [address] [place] [address] Lipase Levelon 09-02-2022 Lipase [Catalytic activity/Vol] 26 U/L Normal 13-58 [facility] Comment on above: Performed By: #### 2 481780, 4246130, 5355485, 5703203, 62183285, 2019476, 3265397 #### [facility] [address] [place] [address] UA With Cult Reflexon 2022 Bacteria LM Ql (Urine sed) TRACE Normal Trace [facility] Comment on above: Performed By: #### 1 8133023 ####[facility] [address] [place] [address] Bilirubin Ql (U) Negative Normal Negative [facility] Comment on above: Performed By: #### 1 1757079 ####[facility] [address] [place] [address] Clarity (U) CLEAR Normal Clear [facility] Comment on above: Performed By: #### 1 7672332 ####[facility] [address] [place] [address] Color (U) YELLOW Normal Yellow [facility] Comment on above: Performed By: #### 1 2821733 ####[facility] [address] [place] [address] Epithelial cells.squamous LM.HPF (Urine sed) [#/Area] 0-2 Normal 0-2 [facility] Comment on above: Performed By: #### 1 5667036 ####[facility] [address] [place] [address] Glucose Test strip (U) [Mass/Vol] Negative Normal Negative [facility] Comment on above: Performed By: #### 1 2508176 ####[place] [address] [place] [address] Hemoglobin Ql (U) Negative Normal Negative [facility] Comment on above: Performed By: #### 1 2783790 ####[address] [address] Ketones (U) [Mass/Vol] 3+ Abnormal Negative [facility] Comment on above: Performed By: #### 1 4338927 ####[address] [address] [place].plasma/Lithiu m.RBC (Bld) [Mass ratio] 0-3 Normal 0-3 [facility] Comment on above: Performed By: #### 1 7348506 ####[facility] [address] [place] [address] Mucus Ql (Urine sed) 2+ Normal [facility] Comment on above: Performed By: #### 1 7640681 ####[place] [address] [place] [address] Nitrite Ql (U) Negative Normal Negative [facility] Comment on above: Performed By: #### 1 9567556 ####[facility] [address] [place] [address] pH (U) 7.5 [pH] Invalid Interpretation Code 5.0-9.0 [facility] Comment on above: Performed By: #### 1 7682553 ####[facility] [address] [place] [address] Protein (U) [Mass/Vol] Negative Normal Negative [facility] Comment on above: Performed By: #### 1 2155054 ####[facility] [place] [address] Specific gravity (U) [Rel density] 1.020 Invalid Interpretation Code 1.005-1.030 [facility] Comment on above: Performed By: #### 1 9179579 ####[facility] [address] [place] [address] Type of Urine collection method Clean Catch Normal [facility] Comment on above: Performed By: #### 1 0276343 ####[facility] [address] [place] [address] Urobilinogen Qn (U) 0.2 {Andrea'U}/dL Normal 0.0-1.0 [facility] Comment on above: Performed By: #### 1 7162247 ####[facility] [address] [place] [address] WBC Auto Ql (U) Negative Normal Negative [facility] Comment on above: Performed By: #### 1 8653522 ####[facility] [address] [place] [address] WBC LM.HPF (Urine sed) [#/Area] 0-5 Normal 0-5 [facility] Comment on above: Performed By: #### 1 5140517 ####[facility] [address] [place] [address] eGFRon 09-02-2022 GFR/1.73 sq M.predicted among blacks MDRD (S/P/Bld) [Vol rate/Area] mL/min/{1.73_m2} Normal >=59 [facility] Comment on above: Order Comment: Order Added by Discern Expert. Result Comment: eGFR is race adjusted. AA=. Performed By: #### 2 810941, 2738090, 5241308, 4363174, 46829457, 9230070, 8525471 #### [facility] Laboratory [address] [place] [address] GFR/1.73 sq M.predicted among non-blacks MDRD (S/P/Bld) [Vol rate/Area] mL/min/{1.73_m2} Normal >=59 [facility] Comment on above: Order Comment: Order Added by Discern Expert. Result Comment: Retail Sales Manager emil kidney disease could be indicated at eGFR's of less than 60 mL/min/1.73m2. Kidney failure is indicated at less than 15 mL/min/1.73m2. Performed By: #### 2 545208, 4213096, 2061059, 1516592, 82221767, 9983866, 2566827 #### [facility] [address] [place] [address] ABO/Rhon 08-29-2022 ABO/Rh Positive Invalid Interpretation Code [facility] Comment on above: Performed By: #### 1 4531549 #### [facility] [address] [place] [address] Auto Diffon 08-29-2022 Basophils/100 WBC (Bld) 0.6 % Normal 0.0-2.0 [facility] Comment on above: Order Comment: Order Added by Discern Expert. Performed By: #### 2 112726, 2610620, 7505421, 0016321, 36840059, 9631301, 6423344 #### [facility] Laboratory [address] [place] [address] Basophils/Leukocytes Auto (Bld) [Pure # fraction] 0.0 E9/L Normal 0.0-0.2 [facility] Comment on above: Order Comment: Order Added by Discern Expert. Performed By: #### 2 988896, 3796182, 9018146, 3647499, 42483027, 6429041, 9595941 #### [facility] [address] [place] [address] Eosinophils/100 WBC (Bld) 5.7 % Normal 0.0-8.0 [facility] Comment on above: Order Comment: Order Added by Ally Expert. Performed By: #### 2 540458, 3873301, 2663423, 9520360, 06083954, 7664245, 7184574 #### [facility] [address] [place] [address] Eosinophils/Leukocyte s Auto (Bld) [Pure # fraction] 0.5 E9/L Normal 0.0-0.5 [facility] Comment on above: Order Comment: Order Added by Discern Expert. Performed By: #### 2 630579, 9628584, 9265123, 9844542, 97391337, 7157302, 9389643 #### [facility] [address] [place] [address] Lymphocytes/100 WBC (Bld) 20.5 % Normal 14.0-50.0 [facility] Comment on above: Order Comment: Order Added by Discern Expert. Performed By: #### 2 866385, 2962462, 8684262, 7771360, 86475210, 6223373, 0922124 #### [facility] [address] [place] [address] Lymphocytes/Leukocyte s Auto (Bld) [Pure # fraction] 1.7 E9/L Normal 1.0-4.0 [facility] Comment on above: Order Comment: Order Added by Discern Expert. Performed By: #### 2 240696, 0086170, 3244190, 2128204, 18832211, 0839328, 3013201 #### [facility] [address] [place] [address] Monocytes/100 WBC (Bld) 8.4 % Normal 4.0-14.0 [facility] Comment on above: Order Comment: Order Added by Discern Expert. Performed By: #### 2 388987, 7086556, 3846182, 8049652, 53371624, 8550277, 8790901 #### [facility] [address] [place] [address] Monocytes/Leukocytes Auto (Bld) [Pure # fraction] 0.7 E9/L Normal 0.2-1.0 [facility] Comment on above: Order Comment: Order Added by Ally Expert. Performed By: #### 2 765706, 0766108, 9324004, 4160080, 86970202, 8719919, 5776040 #### [facility] [address] [place] [address] Neutrophils/100 WBC (Bld) 64.8 % Normal 36.0-75.0 [facility] Comment on above: Order Comment: Order Added by Discern Expert. Performed By: #### 2 279435, 4358123, 4579706, 0566926, 99121084, 8050423, 1463598 #### [facility] [address] [place] [address] Neutrophils/Leukocyte s Auto (Bld) [Pure # fraction] 5.3 E9/L Normal 2.0-7.5 [facility] Comment on above: Order Comment: Order Added by Discern Expert. Performed By: #### 2 939018, 8535769, 6162983, 8977445, 03174989, 1389540, 5512438 #### [facility] [address] [place] [address] BMPon 08-29-2022 Creatinine [Mass/Vol] 0.6 mg/dL Normal 0.5-1.3 [facility] Comment on above: Performed By: #### 2 148451, 0404673, 7495455, 6983076, 42250490, 3145643, 6415310 #### [facility] [address] [place] [address] Urea nitrogen [Mass/Vol] 6 mg/dL Normal 5-21 [facility] Comment on above: Performed By: #### 2 822238, 8055172, 1502113, 4076262, 14457851, 3574210, 5260505 #### [facility] [address] [place] [address] Urea nitrogen/Creatinine [Mass ratio] 10 No Units Normal 10-20 [facility] Comment on above: Performed By: #### 2 561631, 9459325, 3525134, 5027473, 76636440, 1308862, 7720251 #### [facility] [address] [place] [address] Anion gap [Moles/Vol] 11 mmol/L Normal 6-16 [facility] Comment on above: Performed By: #### 2 822199, 2912876, 4425871, 4315237, 95411119, 3108830, 9223272 #### [facility] [address] [place] [address] Calcium [Mass/Vol] 9.1 mg/dL Normal 8.9-11.1 [facility] Comment on above: Performed By: #### 2 103808, 7294783, 7263019, 4163749, 72219466, 7019155, 0676995 #### [facility] [address] [place] [address] Chloride [Moles/Vol] 105 mmol/L Normal 101-111 [facility] Comment on above: Performed By: #### 2 039242, 1794871, 1615790, 2194080, 63890672, 9729887, 3380308 #### [facility] [address] [place] [address] CO2 [Moles/Vol] 23 mmol/L Normal 21-31 [facility] Comment on above: Performed By: #### 2 682889, 6418602, 1835572, 6983471, 98033243, 7419721, 7931143 #### [facility] [address] [place] [address] Glucose [Mass/Vol] 103 mg/dL Normal 55-199 [facility] Comment on above: Result Comment: If t his glucose result represents a fasting glucose, interpretation should refer to the following reference range: 55-99 mg/dL Performed By: #### 2 114301, 9065245, 2300721, 5929833, 51320427, 3013823, 5736507 #### [facility] [address] [place] [address] Potassium [Moles/Vol] 3.7 mmol/L Normal 3.5-5.3 [facility] Comment on above: Performed By: #### 2 435836, 0134990, 3513741, 3667841, 18409212, 6685158, 5713963 #### [facility] [address] [place] [address] Sodium [Moles/Vol] 135 mmol/L Normal 135-145 [facility] Comment on above: Performed By: #### 2 672472, 1263139, 1662693, 4450373, 47136185, 0840242, 3859022 #### [facility] [address] [place] [address] BhCG Quanton 08-29-2022 [place] [address] m[IU]/mL High 1-3 F [facility] Comment on above: Result Comment: GEST ATIONAL AGE HCG RANGE (mIU/mL) NON- <1-3 0.2-1 WEEKS 5-50 1-2 WEEKS 50-500 2-3 WEEKS 100-5,000 3-4 WEEKS 500-10,000 4-5 WEEKS 1,000-50,000 5-6 WEEKS 10,000-100,000 6-8 WEEKS 15,000-200,000 8-12 WEEKS 10,000-100,000 Performed By: #### 2 236303, 9993841, 3162894, 5116035, 99220573, 5457204, 8262657 ####[facility] [address] [place] [address] CBC w/ Auto Diffon 3 Erythrocyte distribution width (RBC) [Ratio] 13.1 % Normal 10.9-14.2 [facility] Comment on above: Performed By: #### 2 652116, 3010480, 3093618, 5249009, 20833465, 9798502, 0767728 #### [facility] [address] [place] [address] Hematocrit (Bld) [Volume fraction] 39.2 % Normal 34.0-46.0 [facility] Comment on above: Performed By: #### 2 405894, 7236845, 2543940, 4768509, 90450365, 3367482, 9902527 #### [facility] [address] [place] [address] Hemoglobin (Bld) [Mass/Vol] 13.5 g/dL Normal 12.0-16.0 [facility] Comment on above: Performed By: #### 2 850609, 4813632, 3401061, 5232507, 73001734, 7297410, 4357984 #### [facility] Laboratory [address] [place] [address] MCH (RBC) [Entitic mass] 29.5 pg Normal 27.0-34.0 [facility] Comment on above: Performed By: #### 2 124735, 6102717, 1707480, 9008137, 31753462, 0632016, 5485165 #### [facility] [address] [place] [address] MCHC (RBC) [Mass/Vol] 34.3 g/dL Normal 31.4-36.0 [facility] Comment on above: Performed By: #### 2 974672, 5682545, 4037928, 7866774, 77680460, 5792865, 4070500 #### [facility] [address] [place] [address] MCV (RBC) [Entitic vol] 85.8 fL Normal 80.0-100.0 [facility] Comment on above: Performed By: #### 2 546125, 4756858, 5741535, 7316800, 69857572, 2393917, 4642213 #### [facility] [address] [place] [address] Platelet mean volume (Bld) [Entitic vol] 8.3 fL Normal 6.4-10.8 [facility] Comment on above: Performed By: #### 2 969897, 4992047, 6378552, 0792813, 33324926, 2671098, 3371185 #### [facility] [address] [place] [address] Platelets (Bld) [#/Vol] 279.0 E9/L Normal 150.0-500.0 [facility] Comment on above: Performed By: #### 2 237324, 7665508, 9043897, 7991696, 86215207, 8363898, 3744769 #### [facility] [address] [place] [address] RBC (Bld) [#/Vol] 4.6 E12/L Normal 4.3-5.9 [facility] Comment on above: Performed By: #### 2 695802, 2610997, 7447225, 3964012, 21747604, 2386102, 4897124 #### [facility] [address] [place] [address] WBC corrected for nucl RBC Auto (Bld) [#/Vol] 8.1 E9/L Normal 4.0-11.0 [facility] Comment on above: Performed By: #### 2 088883, 8727657, 3626965, 0512419, 86518244, 7397731, 1664420 #### [facility] [address] [place] [address] Coding Summary.on 08-29-2022 Coding Summary. CD:[id number]:[id number] Gh0bWw+PGhlYWQ+PE1FV UZlL20joKSqsA8HT8mVK D3XXZODFDKRPQ1QVL0ds NZ5NWovW3YzerTm UyzheTBtIJ15ZWf7TVO8 iOuyZGgzdX8cjZKuR5f1 DiSqFZ12jR46WXjkRHMn AaI8GvGvcqwkdKQr M1qdLmBvbAXsTrd+PHRh YmxlIHdpZHRoPScxMDAl YcYsoWpsBR7xIf9gFYHy LWNvbGxhcHNlOiBj t2rxXCWdMAyaUX4xgFfe B8QgmKT2PNGer1w2Sv55 dHI+HFUtVWW9lIpeQSwv c225XkDmu3lwNGO6 tUPxXKlvVRY5T06sz0F7 NGQaWQBtHRA2qXN4hJ3p uXnitczcX7SlwDLwGpF2 TVP1lHWqdM0svIvi ekarkO7aVfp+S47SZU8B NNOOFP1JCec9B6JyLdxl dHI+OU80XYHhIQ99gWYu eATlf2kwsPe6OpZu ZSLoRYT5nXnhZUvor5Oz HNFcG47wuFIwd2K7HDCd iTxwoISuWhIhcBS8qI8p HVmpfkwns9mzlapq Ijaec3twsa81yH12S19x TTiuMLBgLOS2KMRhIRSo tXwwpc2ynF0jMh2+IDxj u9ehi4ltjOx9JfTz EUZqtfHvkLbmLWN1j7Sm Nk24K1YtwXtse4QgFhl4 jq61mRAtl6P0eXR6RPzd KULywM2nFXfjVxC6 IZGrMsYupU87mOEkYDqf Zi1dxJuidLhgTZ8kDRNi bwmhQTSjuY4jUYWvdDRu lWdiBM7kSXRndcqy w633HbZlXIR8ZXUpnCOh S0TyfR9jAkWtRDGnQKHu P4GmeXCkENcdL328LBrd AeI4YSZlcsZhJ2Ib FWWrzAfgRiG3l9Y6Qt4I c4XxqkuuAXS9WUimLFQd DzV5BiHyReE2W6TmXyg7 EJRjrOqyFI5wF5Zp QOPundjowwudbNT8DPOf EVWliE73cQKfYKygXc9d n7K7j908LKBaNVQvgJ14 Kg8reIlzOHQdcEDI kN2rhekrb5hxurenOnLu CFCoPAy8MMh2BQDuwHpb SrZgSIZ5XuE2FWU5kZPe iX5fbAotkdtsyK1l Oyc+A91oiQ4qSGG0JCL3 deosHHLfrhCzUB33BR27 E3JtPshfiVYscGB+PGRp jyZfvQzpAY4wAyKd a5dky2YbIQzpN2FeVZVw CQhtRps8OPRpYMO5gKH9 hU2wWPJzOBsed3N2bFN0 L5AupfNkpr1xw2kz FJUuAPqnK82ysOGbl2E6 NXHtvJZ3WREodEcmXcNm mJ27Gxv+TIWlcOjsa1Ri Lignh6bhj1wpoYf4 IjMwJSIgdmFsaWduPSJ0 i4GrIi91V61lYQxbXSJu NMQgFMCpSOFqqWnzjh3h dJ3hSy7+PGNvbCB3 bWX8aY1yEZHqAzC4WSeu A491DgJtrMKzYomam0hi x9iqgVc8LzTfVKDxxpOk fCxnVNU4s0QgDd90 E13yBMfnGTIiUWLxIQDw HXPkmWleai5xwK9aGt0+ LE2yf0kgwj45dB78oHT+ DIQnMEB4bYlzLNju PAJxeV2sDEucNsA8XERg JsVdvA19uTQtODtuUl9k aUckbKibSU3fHTIvpoar m760TwJdp4ptDHMw lXObJJuqIWP8E64uo8X7 LYXnYKQyZJZ5pAB2pC3g bGlnbjogbGVmdDsgdmVy oAysVHxfDXkzE369 IHRvcDsnPlBhdGllbnQg BrNwRFz2I6SlZij8GOSc hSskXM9ulYMaLJsmFm8a kOqixRiyED8yYHVl xvabq855OpHfr0apZVFr dHMuHLncUUV8O35iy9F0 VBRoWDAyQEM9jOJ1wW0k bGlnbjogbGVmdDsg opGcwLrdDNrgFCspS781 IHRvcDsnPkJpcnRoIERh qBL0GP74JB80uOFod3A4 mTO7H5EmAYShcqdb ghhygTC6JBRpMDRxpG85 Zq9bcEjqEu3qXLKbOGT4 BWTsfXVcS3LegA4aAdIo QPRqQWWxS6NfaYOq EZrbQ313LOlyVoL7NVGn duAoQ7DcCGBhqDwsCnK2 s3W1Bd5HM8H1WO86DN32 xTCtv0O0gMO5E1Gz DDNpjnxmtqxrwSB9MQDc EDHhvJ27Qt4ftZdyHv0y ZRDfDGA6YTLdeGRjM9Kt iT3qIqRrLDRuBGJs R0HpcMAwONatR212QQtl RkM4QMTumjCpS4VoDAXg bRgpQpW7a3N5Uh3GPRd0 DG05EQ53ySFix2O1 gFN3H1QxSSHediblngpa qJI4QWKwRCNklK07Cs1h eLcwAx3jUUJqFKI3SIGh oANyQ2GyxZ1eLkNd QJQoZLMxK4RryDQhTWpr E437FFdrMiK5CBVicuRg E1KbCNItmVwiZbE6q0X7 Uu0ZHTWcUX10ARN0 cOP8NL22ZY56K7XdYpoa dGFibGU+PHRhYmxlIHdp ZHRoPScxMDAlJyBzdHls JA1oVr5ePGJlGLKo bHawsYTbFjNke5qqPGTb PKxhUZ1ifEdzQ4LakRS1 AIWwm4b9Hz53P29eD3Gz dXA+PQToiUQ8hNK6 bJ0kEdEoYgK5ZDqsJ253 YrLrgGRyEoffm6ojn1id cSc8RcK3VYFxnjEpmPxm SLG0d0SsEu95Q28v IHdpZHRoPSIxNSUiIHZh nAormw0bzE0oWu6+PGNv aEP7lMK6rN7hLiWlOgH7 ZEiyY417JtEleCKu Weqdw4eog7yytMm3FcFb UYLhhlUyxVqxQHB0x0Fv Jf80S4AsmHdol9YjKns4 cv21yROxd7Z3hKW9 W9HpOXAbburvbVZqnXap HU6qQFCwujpdRXBtbE8j MIRbP7l3PfCxWkZ3KCjl P9IkzbQ3FHTnvIHw TBtwSUH1Y02hu3M0WVIo HCShBZP7tYA8eG8csKzx bjogbGVmdDsgdmVydGlj RAoeREnaV205SUFd rDubUXZjqP9mYDCcjYQl tXyjXF8jSJDehxmlVn7T HXEIKPCLRMEEHLGJKS3I KK73P6LwTks6SHLu uOayGY0bdJNaUUrgKz4t vYebwIdiRM5bLUIygvah QSDocK9rDQKbcOIscHdw MK6dCOHmxigeb804 ScYdMYO6WRVjeQTsI2Eq lQ5pKdBlDQUtZIQwN9Nh kXRtJTixW225YLqxEkC7 RODoduJcU6YpZNPk mZumAgJ7i9Z6Bu2dSZ0k OC9xSLQyWG49UN88qOKs m7G1hOT2D5LbQPVsjnsn ymllvME2RWTsTROo yT98lUCkRQsaUu9ze1L1 l151RPPoDRZdaI44Qi9r gRpnJRApmXKGrA3ltheg p9ihwqbtPjRgGLWt HCn1NPw0PIPaaJkcNqCe PNE5YkP2DPH9iWMfdR6g lIzqpchvgV7uWmb+MjEg HRYcfwN1Y3RvIig5 VBNxpPnwHH1kfMGrXVvd Fo3dpEnycPikJV4aPNYw vxvsOYIlpI9bJRDqiGPp eUghZY9yFSZhgffg r644DfIyHDL9KWWqoAJy J3HnuR3eRxZnEMCrTTEo Z5KhdVXoTTtwY933UXpn FkE3TXFlcxMxA2Li FRGhmDvfQaB3g0M9Ao3X GI4mxMM0W4MlYmm1CUUo mYcmLV0ytDYvQSkoGl2t fEuirShhDB8jIRYj wzfuHETrfG3dJFMcoHOn jOjcEC0bHRBpqcilt033 DpItWSA1BCLygDNmX1Io kA3lAvFrIRMqZRNa P8IscJSwFPkuQ645GEuw UpB3ECSbscPvO5NxFIHg fDsbVzZ9i9B8Gc7ArGLx D9EwV0v9E5KvCraf dHI+UH06FBDvGI44vJPo nMOqi9jriYp5DyFxKBFr UZF1aSwoLKhcj0KcMVPm L76prVHmr9W9XSId fYpcfSAhTjLwtYU5fS6d MIcpnvfyg3vmuncfJssx b9tcmf78vZ67J60pEOnp ZHRoPSIzMCUiIHZh lSnumo5ffM4dHa9+PGNv jTY6bZY5uC9tShZxPuH7 QWahM442EhHtpAThIqxk k1ypn0eqpWx3OqPh BQDzvnHjaCraQIE3f3Dx Jh36U14sNOjqQEPqBPPd GBJmTQKguWypnh0ixE4m Ii8+WH5yr8iuye49 vO04wTT+JFLoZHI3tDjb GVmzJTZosQ5jQHzkEhP4 KOSjJvQruZ92zKZkRSgp Wc2rvCgfpLudNW4p WYAhdnwrv610WmVpw4ba AALyqTFpSKtlRGS8M20s h9B1WHBsNKBfYBX4vYV0 vF1wjOqdnwdixWZr dDsgdmVydGljYWwtYWxp G947UXSabMhzIlTbxOHl J9zsdrOZUL8eQahsfJD+ FBDpCTK8oUqsIAwj MLDmgL0aAJGoN5o2ThBz VlJ5ISikO0AoquU8HDNa sPMiKNHhxVLTzM7hftev q5gyvxqxTgXiCDQl ZUp4TVl4EZVhcKwqYlHd PQY7JgL6BYV5rNSopL0a xRnikdypxY0vKwq+RklO OjwvdGQ+PHRkIHN0 dHnnSMixZTWocN9mWKZk R1z4CuVkBgR4BLcvK8Gz ivD5RHLdzONeYVOdpEVL hO5tweoeg9nxtxob UaYaOGWmKIc3KZc5IPDs xWsrFuRdWSX3FhA9OHC9 nWJdlM8llSbapcresT9v Oyc+TVJOOjwvdGQ+ SXJkHLZ7iStpYAurAGVg wT0iHVHiY2v2ThHtUlK8 REhyU7NekdG5AGBpdJUh QHZcwRYAtN3ctjwt p9qwstczTmNlBDEjYPt1 WPt4RWSonWtuXlEcYDZ2 QkO4DOR5bUNgtB9jxIsg wxjqaU0tUme+UGF5 WIG9PZ70NF45H7OlEiyq dGFibGU+PHRhYmxlIHdp ZHRoPScxMDAlJyBzdHls PU5yHo0uCUTtKZQp bGxh (more content not included)... Normal [facility] Discharge Instructionson Discharge Instructions [id number] 4#1.00CD:127 Normal [facility] ED Clinical Summaryon 2022 ED Clinical Summary [place] [address] ED Clinical Summary Person Information Name: ROQUE PIERSON/[facility]_Gabriel Age: 22 Years : 2000 Sex: Female Language: Ukrainian PCP: Ambrose Urbano MD Marital Status: Single Visit Id: [...] 08/29/2022 01:49:39 08/29/2022 01:49:39 08/29/2022 01:49:39 ADDRESS: [address] [place] [id number] PHYS DOC NOTES: MEDICAL INFORMATION: Prescriptions Given: [...] Pain During Follow up: With: Address: When: [facility], [address] [place] [address] , [place] [address] Business (1) In 3 days 09/01/2022 Comments: Return to the emergency room if your pain gets worse, general bleeding, vomiting or any new symptoms With: Address: When: Ambrose Urbano [address] [place] [address], [place] [address] Business (1) In 3 days DIAGNOSIS: 1:Abdominal pain; 2:Intrauterine ; 3:Nausea Normal [facility] ED Note-Physicianon 08-29-19 ED Note-Physician Basic Information [...] and Complexity of Problems Differential Diagnosis: [] [facility] Data External documents reviewed: [] My EKG [...] Information Julius CROCKETT In 3 days 09/01/[address] [facility] [address] [facility] [place] [address] Business (1) Additional Instructions: Return to the emergency room if your pain gets worse, general bleeding, vomiting or any new symptoms Ambrose Hoy (more content not included)... Normal [facility] Comment on above: Result Comment: Elec tronically Signed By: Anu Ziegler, Alfredito Scott.basil\Date and Time Signed: 08/29/22 03:00 [facility] ED Patient Education Noteon 08-29-2022 ED Patient [...] added (diluted fruit juice). ? Eat bland, emwb-to-plfriq foods in small amounts as you are able. These foods include bananas, applesauce, rice, lean meats, toast, and crackers. ? Avoid drinking fluids that contain a lot of sugar or caffeine, such as energy drinks, sports drinks, and soda. ? Avoid alcohol. ? Avoid spicy or fatty foods. General instructions ? Take fixy-cnw-cqhpwph and prescription medicines only as told by your health care provider. ? Rest at home while you recover. ? Drink enough fluid to keep your urine pale yellow. ? Breathe slowly and deeply when you feel nauseous. ? Avoid smelling things that have strong odors. ? Wash your hands often using soap and water. If soap and water are not available, use hand correctional agency director. ? Make sure that all people in [...] recommendations for eating and drinking and take tfqi-jgq-avrlpmc and prescription medicines only as told by [...] 09/18/2005 Document Revised: 01/19/2019 Document Reviewed: 01/19/2019 [employer] Patient Education ? 2019 [employer]. Obstetrics and Gynecology First Trimester of The [...] be form (more content not included)... Normal [facility] ED Patient Summaryon 023 ED Patient Summary [place] [address] Patient Discharge Instructions Person Information Name: ROQUE PIERSON Age: 22 Years Arrival Date: 08/28/2022 21:27:40 Discharge Diagnosis: 1:Abdominal pain; 2:Intrauterine ; 3:Nausea Primary Care Physician: Ambrose Urbano MD Provider Information Primary Provider: Alfredito Brennan M.D. Advanced Financial Writer:None The exam and treatment you received in the Emergency Department were for an urgent problem and are not intended as complete care. It is important that you follow up with a doctor, nurse practitioner, or physician?s expanded duty dental assistant for ongoing care. If your symptoms [...] Follow-up Instructions: With: Address: When: Julius CROCKETT [facility], [address] [facility] [place] [address] Business (1) In 3 days 09/01/2022 Comments: Return to the emergency room if your pain gets worse, general bleeding, vomiting or any new symptoms With: Address: When: Ambrose Urbano [address] [facility], [place] [address] Business (1) In 3 days [...] opioids can be used to help relieve gqrrrymf-up-gtxzuz pain and are often prescribed following a [...] guidance from (more content not included)... Normal [facility] Hep Func Panelon 08-29-2022 Bilirubin.indirect [Mass or moles/Vol] UTC Abnormal 0.1-0.9 [facility] Comment on above: Result Comment: Resu lt verified by Discern Rule. Performed result UTC (Unable to Calculate) was sent as an Alpha code due the inability to calculate a valid numeric value. Performed By: #### 2 119172, 8356843, 0296519, 7758114, 01690276, 2794746, 7794560 #### [facility] Laboratory [address] [place] [address] Albumin [Mass/Vol] 4.2 g/dL Normal 3.3-5.0 [facility] Comment on above: Performed By: #### 2 295206, 3979804, 9594838, 4893934, 00839180, 9794095, 3342512 #### [facility] [address] [place] [address] Albumin/Globulin (S) [Mass conc ratio] 1.3 Normal 1.1-2.2 [facility] Comment on above: Performed By: #### 2 367386, 5172144, 2649856, 9497277, 03943456, 1413248, 3925349 #### [facility] [address] [place] [address] ALP [Catalytic activity/Vol] 69 Int._Unit/L Normal 21-98 [facility] Comment on above: Performed By: #### 2 389418, 5768076, 6769018, 1438049, 43726314, 3114685, 6119144 #### [facility] [address] [place] [address] ALT No additional P-5'-P [Catalytic activity/Vol] 57 Int._Unit/L High 6-46 [facility] Comment on above: Performed By: #### 2 198045, 1530178, 7548303, 8617661, 21583223, 7331987, 3839989 #### [facility] [address] [place] [address] AST [Catalytic activity/Vol] 41 Int._Unit/L Normal 5-43 [facility] Comment on above: Performed By: #### 2 468038, 7258819, 4691413, 1514287, 29975195, 2784429, 1621417 #### [facility] [address] [place] [address] Bilirubin [Mass/Vol] 0.4 mg/dL Normal 0.0-1.1 [facility] Comment on above: Performed By: #### 2 736125, 9436128, 6999801, 2339149, 08992280, 2817435, 0969300 #### [facility] [address] [place] [address] Bilirubin.direct [Mass/Vol] mg/dL Normal 0.1-0.4 [facility] Comment on above: Performed By: #### 2 036319, 4779031, 0448131, 6823201, 60662068, 0955402, 2020316 #### [facility] [address] [place] [address] Globulin (S) [Mass/Vol] 3.3 g/dL Normal 1.4-4.0 [facility] Comment on above: Performed By: #### 2 229551, 3891455, 7745493, 2660592, 66822300, 7259469, 6152576 #### [facility] [address] [place] [address] Protein [Mass/Vol] 7.5 g/dL Normal 6.0-7.8 [facility] Comment on above: Performed By: #### 2 240094, 6311070, 3345492, 8459307, 42425677, 4929319, 8809916 #### [facility] [address] [place] [address] Lipase Levelon 08-29-2022 Lipase [Catalytic activity/Vol] 29 U/L Normal 13-58 [facility] Comment on above: Performed By: #### 2 266032, 8914476, 4418870, 0861342, 23429583, 1508923, 3492815 #### [facility] [address] [place] [address] Prescriptions/Work Noteson 0 08-29-2022 Prescriptions/Work Notes [id number] 9#1.00CD:127 Normal [facility] UA With Cult Reflexon 2022 Bacteria LM Ql (Urine sed) 1+ /HPF Abnormal Trace [facility] Comment on above: Performed By: #### 1 2659798 ####[facility] [address] [place] [address] Bilirubin Ql (U) Negative Normal Negative [facility] Comment on above: Performed By: #### 1 6616247 ####[facility] [address] [place] [address] Clarity (U) CLEAR Normal Clear [facility] Comment on above: Performed By: #### 1 9456931 ####[facility] [address] [place] [address] Color (U) YELLOW Normal Yellow [facility] Comment on above: Performed By: #### 1 2249484 ####[address] [address] Epithelial cells.squamous LM.HPF (Urine sed) [#/Area] 3-4 Normal 0-2 [facility] Comment on above: Performed By: #### 1 4680666 ####[address] [address] Glucose Test strip (U) [Mass/Vol] Negative Normal Negative [facility] Comment on above: Performed By: #### 1 6156393 ####[address] [address] Hemoglobin Ql (U) Negative Normal Negative [facility] Comment on above: Performed By: #### 1 3002915 ####[address] [address] Ketones (U) [Mass/Vol] 3+ Abnormal Negative [facility] Comment on above: Performed By: #### 1 8623869 ####[address] [address] [place].plasma/Lithiu m.RBC (Bld) [Mass ratio] 0-3 Normal 0-3 [facility] Comment on above: Performed By: #### 1 6513975 ####[address] [address] Nitrite Ql (U) Negative Normal Negative [facility] Comment on above: Performed By: #### 1 4515058 ####[address] [address] pH (U) 7.0 [pH] Invalid Interpretation Code 5.0-9.0 [facility] Comment on above: Performed By: #### 1 4966555 ####[address] [address] Protein (U) [Mass/Vol] Negative Normal Negative [facility] Comment on above: Performed By: #### 1 5057151 ####[facility] [address] [place] [address] Specific gravity (U) [Rel density] 1.015 Invalid Interpretation Code 1.005-1.030 [facility] Comment on above: Performed By: #### 1 0856444 ####[facility] [address] [place] [address] Type of Urine collection method Clean Catch Normal [facility] Comment on above: Performed By: #### 1 9968670 ####[facility] [address] [place] [address] Urobilinogen Qn (U) 0.2 {Andrea'U}/dL Normal 0.0-1.0 [facility] Comment on above: Performed By: #### 1 0836282 ####[address] [address] WBC Auto Ql (U) TRACE Abnormal Negative [facility] Comment on above: Performed By: #### 1 4721263 ####[facility] [address] [place] [address] WBC LM.HPF (Urine sed) [#/Area] 0-5 Normal 0-5 [facility] Comment on above: Performed By: #### 1 9476363 ####[facility] [address] [place] [address] URINALYSISOrdered By: Davidson Watson on 08-29-2022 Bacteria LM Ql (Urine sed) 1+ /HPF Invalid Interpretation Code Trace/HPF FT UA Auto SS Bilirubin Ql (U) Negative (08/29/22 12:34 AM) Normal Negative [facility] UA Auto SS Clarity (U) Clear (08/29/22 12:34 AM) Normal Clear [facility] UA Auto SS Color (U) Yellow (08/29/22 12:34 AM) Normal Yellow [facility] UA Auto SS Epithelial [...] Interpretation Code Negative [facility] UA Auto SS [place].plasma/Lithiu m.RBC (Bld) [Mass ratio] 0-3 /HPF Normal [...] [facility] UA Auto SS Urobilinogen Qn (U) 0.9973412 {Andrea'U}/dL Normal 0.0 - 1.0 EU/dL [facility] [...] corresponding gestational age +/- 1 week are: [place] Rump Length: 0.7 cm Composite Ultrasound Age: [...] Size = Dates Uterus Position Anteverted Normal [facility] eGFRon 08-29-2022 GFR/1.73 sq M.predicted among blacks MDRD (S/P/Bld) [Vol rate/Area] mL/min/{1.73_m2} Normal >=59 [facility] Comment on above: Order Comment: Order added by Discern Expert. Result Comment: eGFR is race adjusted. AA=. Performed By: #### 2 241381, 3211031, 8889112, 7105076, 51505899, 9673520, 2680230 #### [facility] Laboratory [address] [place] [address] GFR/1.73 sq M.predicted among non-blacks MDRD (S/P/Bld) [Vol rate/Area] mL/min/{1.73_m2} Normal >=59 [facility] Comment on above: Order Comment: Order added by Discern Expert. Result Comment: Retail Sales Manager emil kidney disease could be indicated at eGFR's of less than 60 mL/min/1.73m2. Kidney failure is indicated at less than 15 mL/min/1.73m2. Performed By: #### 2 376432, 0386029, 5578912, 7866555, 60743693, 0472170, 5456284 #### [facility] [address] [place] [address] BLOOD BANKOrdered By: Davidson Watson on 08-28-2022 ABO/Rh Interp Positive Invalid Interpretation Code [facility] BB Subsection CHEMISTRYOrdered By: SYSTEM SYSTEM on [...] 23 mmol/L Normal 21 - 31 mmol/L [facility] Creatinine [Mass/Vol] 0.6 mg/dL Normal 0.5 - 1.3 mg/dL [facility] GFR/1.73 sq M.predicted among blacks MDRD (S/P/Bld) [Vol rate/Area] mL/min/1.73 m2 Normal >=59mL/min/1. 73 m2 [facility] Chem S GFR/1.73 sq M.predicted among non-blacks MDRD (S/P/Bld) [Vol rate/Area] mL/min/1.73 m2 Normal >=59mL/min/1. 73 m2 [facility] Chem S Globulin (S) [Mass/Vol] 3.3 g/dL Normal 1.4 - 4.0 gm/dL [facility] Glucose [Mass/Vol] 103 mg/dL Normal 55 - 199 mg/[place] [address] m[IU]/mL High 1 - 3 mIU/mL [facility] Remisol Lipase [Catalytic activity/Vol] 29 U/L Normal 13 - 58 unit/L [facility] Potassium [Moles/Vol] 3.7 mmol/L Normal 3.5 - 5.3 mmol/L [facility] Protein [Mass/Vol] 7.5 g/dL Normal 6.0 - 7.8 gm/dL [facility] Sodium [Moles/Vol] 135 mmol/L Normal 135 - 145 mmol/L [facility] Urea nitrogen [Mass/Vol] 6 mg/dL Normal 5 - 21 mg/dL [facility] Urea nitrogen/Creatinine [Mass ratio] 10 mg/mg Normal 10 - 20 [facility] Remisol Consent for Treatmenton Consent for Treatment [id number] #1.00CD:127 Normal [facility] HEMATOLOGYOrdered By: SYSTEM SYSTEM on 08-28-2022 Basophils/100 [...] 5.3 E9/L Normal 2.0 - 7.5 E9/L [facility] HemeAutoSS HEMATOLOGYOrdered By: Meagan Hilton on 08-28-2022 [...] 4.6 E12/L Normal 4.3 - 5.9 E12/L [facility] HemeAutoSS WBC corrected for nucl RBC Auto (Bld) [#/Vol] 8.1 E9/L Normal 4.0 - 11.0 E9/L [facility] HemeAutoSS Auto Diffon 08-26-2022 Basophils/100 WBC (Bld) 0.6 % Normal 0.0-2.0 [facility] Comment on above: Order Comment: Order Added by Discern Expert. Performed By: #### 1 [id number], 7694117, 4518573, 3525459, 4494500 ####[place] [address] [place] [address] Basophils/Leukocytes Auto (Bld) [Pure # fraction] 0.1 E9/L Normal 0.0-0.2 [facility] Comment on above: Order Comment: Order Added by Discern Expert. Performed By: #### 1 8896137, 3120204, 6951120, 2616438, 6289231 ####[place] [address] [place] [address] Eosinophils/100 WBC (Bld) 3.4 % Normal 0.0-8.0 [facility] Comment on above: Order Comment: Order Added by Discern Expert. Performed By: #### 1 7382456, 2542539, 8274934, 5730535, 8184402 ####[place] [address] [place] [address] Eosinophils/Leukocyte s Auto (Bld) [Pure # fraction] 0.4 E9/L Normal 0.0-0.5 [facility] Comment on above: Order Comment: Order Added by Discern Expert. Performed By: #### 1 7158590, 9563414, 1098702, 8363266, 4940286 ####[place] [address] [place] [address] Lymphocytes/100 WBC (Bld) 12.4 % Low 14.0-50.0 [facility] Comment on above: Order Comment: Order Added by Discern Expert. Performed By: #### 1 3960601, 7730941, 0909571, 0697917, 3014881 ####[place] [address] [place] [address] Lymphocytes/Leukocyte s Auto (Bld) [Pure # fraction] 1.6 E9/L Normal 1.0-4.0 [facility] Comment on above: Order Comment: Order Added by Discern Expert. Performed By: #### 1 [id number], 6209015, 4975830, 1591708, 7906665 ####[address] [address] Monocytes/100 WBC (Bld) 4.2 % Normal 4.0-14.0 [facility] Comment on above: Order Comment: Order Added by Discern Expert. Performed By: #### 1 [id number], 2811972, 9442139, 4343293, 2073757 ####[address] [address] Monocytes/Leukocytes Auto (Bld) [Pure # fraction] 0.5 E9/L Normal 0.2-1.0 [facility] Comment on above: Order Comment: Order Added by Discern Expert. Performed By: #### 1 [id number], 1919551, 2375576, 3026968, 6220419 ####[address] [address] Neutrophils/100 WBC (Bld) 79.4 % High 36.0-75.0 [facility] Comment on above: Order Comment: Order Added by Discern Expert. Performed By: #### 1 [id number], 1199703, 9713275, 8088822, 1468170 ####[address] [address] Neutrophils/Leukocyte s Auto (Bld) [Pure # fraction] 10.3 E9/L High 2.0-7.5 [facility] Comment on above: Order Comment: Order Added by Discern Expert. Performed By: #### 1 [id number], 6830849, 3410251, 7254317, 0335554 ####[address] [address] CBC w/ Auto Diffon 3 Erythrocyte distribution width (RBC) [Ratio] 13.3 % Normal 10.9-14.2 [facility] Comment on above: Performed By: #### 1 1242530, 1843106, 1107221, 5208504, 3524657 ####[facility] [id number] [place] [address] Hematocrit (Bld) [Volume fraction] 39.7 % Normal 34.0-46.0 [facility] Comment on above: Performed By: #### 1 [id number], 0028540, 1132410, 4906063, 7496566 ####[facility] [id number] [place] [address] Hemoglobin (Bld) [Mass/Vol] 13.6 g/dL Normal 12.0-16.0 [facility] Comment on above: Performed By: #### 1 [id number], 4310615, 0855373, 9212956, 0927511 ####[place] [address] MCH (RBC) [Entitic mass] 29.4 pg Normal 27.0-34.0 [facility] Comment on above: Performed By: #### 1 0487422, 4897859, 6650399, 0580199, 4100274 ####[facility] [id number] [place] [address] MCHC (RBC) [Mass/Vol] 34.1 g/dL Normal 31.4-36.0 [facility] Comment on above: Performed By: #### 1 3838258, 3444118, 8050302, 3654341, 5576726 ####[facility] [address] [place] [address] MCV (RBC) [Entitic vol] 86.1 fL Normal 80.0-100.0 [facility] Comment on above: Performed By: #### 1 5942811, 3388764, 9472660, 5710170, 3120395 ####[address] [place] [address] Platelet mean volume (Bld) [Entitic vol] 7.9 fL Normal 6.4-10.8 [facility] Comment on above: Performed By: #### 1 6048232, 3904399, 2684249, 3040790, 0664448 ####[facility] [address] [place] [address] Platelets (Bld) [#/Vol] 340.0 E9/L Normal 150.0-500.0 [facility] Comment on above: Performed By: #### 1 [id number], 0053414, 4088956, [id number], [id number] ####[facility] [address] [place] [address] RBC (Bld) [#/Vol] 4.6 E12/L Normal 4.3-5.9 [facility] Comment on above: Performed By: #### 1 [id number], [id number], 8493128, 9102788, 8314275 ####[facility] [address] [place] [address] WBC corrected for nucl RBC Auto (Bld) [#/Vol] 13.0 E9/L High 4.0-11.0 [facility] Comment on above: Performed By: #### 1 [id number], 6864136, 1771766, 6157650, 1593505 ####[facility] [address] [place] [address] CHEMISTRYOrdered By: SYSTEM SYSTEM on 08-26-2022 Albumin [Mass/Vol] 4.4 g/dL Normal 3.3 - 5.0 gm/dL FT Remisol Albumin/Globulin [Mass ratio] 1.3 {ratio} Normal [...] rate/Area] mL/min/1.73 m2 Normal >=59mL/min/1. 73 m2 [facility] Chem S GFR/1.73 sq M.predicted among non-blacks MDRD (S/P/Bld) [Vol rate/Area] mL/min/1.73 m2 Normal >=59mL/min/1. 73 m2 [facility] Chem S Globulin (S) [Mass/Vol] 3.4 g/dL Normal 1.4 - 4.0 gm/dL FT Remisol Glucose [Mass/Vol] 123 mg/dL Normal 55 - 199 mg/dL [facility] Remisol Lipase [Catalytic activity/Vol] 27 U/L Normal 13 - 58 unit/L [facility] Remisol Potassium [Moles/Vol] 3.7 mmol/L Normal 3.5 - 5.3 mmol/L [facility] Remisol Protein [Mass/Vol] 7.8 g/dL Normal 6.0 - 7.8 gm/dL [facility] Remisol Sodium [Moles/Vol] 133 mmol/L Low 135 - 145 mmol/L [facility] Remisol Urea nitrogen [Mass/Vol] 9 mg/dL Normal 5 - 21 mg/dL [facility] Remisol Urea nitrogen/Creatinine [Mass ratio] 15 mg/mg Normal 10 - 20 [facility] Remisol CMPon 08-26-2022 Albumin [Mass/Vol] 4.4 g/dL Normal 3.3-5.0 [facility] Comment on above: Performed By: #### 1 [id number], 2875149, 5575220, 0897972, 9941197 ####[facility] [address] [place] [address] Albumin/Globulin (S) [Mass conc ratio] 1.3 Normal 1.1-2.2 [facility] Comment on above: Performed By: #### 1 [id number], 9852810, 9722587, 5315771, 5138606 ####[facility] [address] [place] [address] ALP [Catalytic activity/Vol] 66 Int._Unit/L Normal 21-98 [facility] Comment on above: Performed By: #### 1 [id number], 0907483, 1408134, 5035445, 9815512 ####[address] [place] [address] ALT No additional P-5'-P [Catalytic activity/Vol] 20 Int._Unit/L Normal 6-46 [facility] Comment on above: Performed By: #### 1 7076208, 3926567, 5095920, 3986433, 6105791 ####[facility] [address] [place] [address] AST [Catalytic activity/Vol] 20 Int._Unit/L Normal 5-43 [facility] Comment on above: Performed By: #### 1 7964856, 8350306, 6756858, 6442549, 8636862 ####[address] [place] [address] Bilirubin [Mass/Vol] 0.6 mg/dL Normal 0.0-1.1 [facility] Comment on above: Performed By: #### 1 2977228, 7052884, 9678832, 6859421, 6943521 ####[address] [place] [address] Creatinine [Mass/Vol] 0.6 mg/dL Normal 0.5-1.3 [facility] Comment on above: Performed By: #### 1 3862861, 8152138, 5129531, 5206163, 7397279 ####[address] [place] [address] Globulin (S) [Mass/Vol] 3.4 g/dL Normal 1.4-4.0 [facility] Comment on above: Performed By: #### 1 0597869, 9300445, 1869893, 9881140, 8840645 ####[facility] [address] [place] [address] Protein [Mass/Vol] 7.8 g/dL Normal 6.0-7.8 [facility] Comment on above: Performed By: #### 1 3409037, 1568116, 5838268, 7236775, 3893430 ####[facility] [address] [place] [address] Urea nitrogen [Mass/Vol] 9 mg/dL Normal 5-21 [facility] Comment on above: Performed By: #### 1 3652732, 3440729, 8350193, 4885614, 4982323 ####[facility] [address] [place] [address] Urea nitrogen/Creatinine [Mass ratio] 15 No Units Normal 10-20 [facility] Comment on above: Performed By: #### 1 5322961, 0563567, 1405928, 0938519, 7509507 ####[facility] [address] [place] [address] Anion gap [Moles/Vol] 13 mmol/L Normal 6-16 [facility] Comment on above: Performed By: #### 1 8758545, 8597968, 0840988, 2359459, 7715468 ####[facility] [address] [place] [address] Calcium [Mass/Vol] 9.4 mg/dL Normal 8.9-11.1 [facility] Comment on above: Performed By: #### 1 2020541, 8108845, 5505136, 0817158, 1066686 ####[facility] [address] [place] [address] Chloride [Moles/Vol] 103 mmol/L Normal 101-111 [facility] Comment on above: Performed By: #### 1 2618307, 0725895, 3721179, 6321669, 7678093 ####[facility] [address] [place] [address] CO2 [Moles/Vol] 21 mmol/L Normal 21-31 [facility] Comment on above: Performed By: #### 1 3251903, 9268241, 0889102, 1830023, 5516174 ####[facility] [address] [place] [address] Glucose [Mass/Vol] 123 mg/dL Normal 55-199 [facility] Comment on above: Result Comment: If t his glucose result represents a fasting glucose, interpretation should refer to the following reference range: 55-99 mg/dL Performed By: #### 1 0606368, 3297197, 5183593, 3900368, 1295726 ####[facility] [address] [place] [address] Potassium [Moles/Vol] 3.7 mmol/L Normal 3.5-5.3 [facility] Comment on above: Performed By: #### 1 3505817, 0188592, 9978065, 4691188, 1887216 ####[address] [place] [address] Sodium [Moles/Vol] 133 mmol/L Low 135-145 [facility] Comment on above: Performed By: #### 1 9699309, 1711204, 8375731, 1230333, 2886163 ####[facility] [address] [place] [address] Consent for Treatmenton Consent for Treatment [id number] #[id number]:127 Normal [facility] Discharge Instructionson Discharge Instructions [id number]#[id number]:127 Normal [facility] ED Clinical Summaryon 2022 ED Clinical Summary [address] [address] ED Clinical Summary Person [facility] Age[facility] 22 Years : 2000 Sex: Female Language: Ukrainian PCP: Ambrose Urbano MD Marital Status: Single Visit Id: [...] 08/26/2022 12:55:17 08/26/2022 12:55:17 08/26/2022 12:55:17 ADDRESS: [address] [place] [id number] PHYS DOC NOTES: MEDICAL INFORMATION: Prescriptions Given: [...] Instructions: Follow up: With: Address: When: Julius KEIRA [facility], [address] [facility] , [place] [address] Business (1) In 3 days 08/29/2022 With: Address: When: Ambrose Urbano [facility] [facility], [place] [address] Business (1) In 3 days DIAGNOSIS: Hyperemesis gravidarum Normal [facility] ED Note-Physicianon 08-26-19 ED Note-Physician Basic Information Time Seen: Kei Moore DO 08/26/2022 11:01 Chief Complaint pt reports nausea for 2-3 weeks, Seen in [place] ED for this and given fluids/meds in ED. Mild abd pain. Pt reports 6 wks . History of Present Illness 22 female presents emergency department with intractable nausea and vomiting. Patient states that she is about 6 weeks she is G1, P0 and has had prior ultrasound done in [place]. Patient states that just recently she was seen in the [place] emergency department was given fluids and medications [...] and Complexity of Problems Differential Diagnosis: [] [facility] Data External documents reviewed: [] My EKG [...] discharged home educated to follow-up with her [employer] physician. She is discharged with prescription for [...] Information Julius CROCKETT In 3 days 08/29/[address] , [place] [address]- Business (1) Additional Instructions: Ambrose Urbano In 3 days [address] [facility] [place] [address]- Business (1) Additional Instructions: Problem List/Past Medical [...] Household t (more content not included)... Normal [facility] Comment on above: Result Comment: Elec tronically Signed By: Kei Moore DO\.br\Date and Time Signed: 08/26/22 12:48 EST ED Patient Education Noteon 08-26-2022 ED Patient Education Note Normal [facility] ED Patient Summaryon 023 ED Patient Summary [address] [address] Patient Discharge Instructions Person Information Name: ROQUE PIERSON Age: 22 Years Arrival Date: 08/26/2022 10:59:05 Discharge Diagnosis: Hyperemesis gravidarum Primary Care Physician: Ambrose Urbano MD Provider Information Primary Provider: Kei Moore DO Advanced Financial Writer:None The exam and treatment you received in the Emergency Department were for an urgent problem and are not intended as complete care. It is important that you follow up with a doctor, nurse practitioner, or physician?s expanded duty dental assistant for ongoing care. If your symptoms [...] Follow-up Instructions: With: Address: When: Julius CROCKETT [address] [place] [address] Business (1) In 3 days 08/29/2022 With: Address: When: Amrbose Urbano [address] [facility] [facility] [place] [address] Business (1) In 3 days In the event that this physician does not participate in your insurance network, please consult with your insurance company to find a nearby participating provider. Patient Education Materials: A MESSAGE TO ALL PATIENTS REGARDING OPIOIDS PRESCRIPTION OPIOIDS: WHAT YOU NEED TO KNOW Prescription opioids can be used to help relieve oizklpgo-aa-ymfhoa pain and are often prescribed following a [...] your he (more content not included)... Normal [facility] HEMATOLOGYOrdered By: SYSTEM SYSTEM on 08-26-2022 Basophils/100 [...] 34.1 g/dL Normal 31.4 - 36.0 gm/dL FT HemeAutoSS MCV (RBC) [Entitic vol] 86.1 fL Normal 80.0 - 100.0 fL [facility] HemeAutoSS Platelet mean volume (Bld) [Entitic vol] 7.9 fL Normal 6.4 - 10.8 fL [facility] HemeAutoSS Platelets (Bld) [#/Vol] 340.0 E9/L Normal 150.0 - 500.0 E9/L [facility] HemeAutoSS RBC (Bld) [#/Vol] 4.6 E12/L Normal 4.3 - 5.9 E12/L FT HemeAutoSS WBC corrected for nucl RBC Auto (Bld) [#/Vol] 13.0 E9/L High 4.0 - 11.0 E9/L FT HemeAutoSS Lipase Levelon 08-26-2022 Lipase [Catalytic activity/Vol] 27 U/L Normal 13-58 [facility] Comment on above: Performed By: #### 1 [id number], 6327464, 4908501, 6568093, 2344742 ####[facility] [address] [place] [address] UA With Cult Reflexon 2022 Bacteria LM Ql (Urine sed) TRACE Normal Trace [facility] Comment on above: Performed By: #### 1 [id number] #### [facility] [address] [place] [address] Bilirubin Ql (U) Negative Normal Negative [facility] Comment on above: Performed By: #### 1 [id number] #### [facility] [address] [place] [address] Clarity (U) CLEAR Normal Clear [facility] Comment on above: Performed By: #### 1 5459542 #### [facility] [address] [place] [address] Color (U) YELLOW Normal Yellow [facility] Comment on above: Performed By: #### 1 0662518 #### [facility] [address] [place] [address] Epithelial cells.squamous LM.HPF (Urine sed) [#/Area] 5-8 Normal 0-2 [facility] Comment on above: Performed By: #### 1 [id number] #### [facility] [address] [place] [address] Glucose Test strip (U) [Mass/Vol] Negative Normal Negative [facility] Comment on above: Performed By: #### 1 [id number] #### [facility] [address] [place] [address] Hemoglobin Ql (U) Negative Normal Negative [facility] Comment on above: Performed By: #### 1 1964259 #### [facility] [address] [place] [address] Ketones (U) [Mass/Vol] 2+ Abnormal Negative [facility] Comment on above: Performed By: #### 1 8599131 #### [facility] [address] [place] [address] [place].plasma/Lithiu m.RBC (Bld) [Mass ratio] 0-3 Normal 0-3 [facility] Comment on above: Performed By: #### 1 1752381 #### [facility] [address] [place] [address] Mucus Ql (Urine sed) 2+ Normal [facility] Comment on above: Performed By: #### 1 [id number] #### [facility] [address] [place] [address] Nitrite Ql (U) Negative Normal Negative [facility] Comment on above: Performed By: #### 1 1222682 #### [facility] [address] [place] [address] pH (U) 8.5 [pH] Invalid Interpretation Code 5.0-9.0 [facility] Comment on above: Performed By: #### 1 [id number] #### [facility] [address] [place] [address] Protein (U) [Mass/Vol] TRACE Abnormal Negative [facility] Comment on above: Performed By: #### 1 9422072 #### [facility] [address] [place] [address] Specific gravity (U) [Rel density] 1.015 Invalid Interpretation Code 1.005-1.030 [facility] Comment on above: Performed By: #### 1 0622475 #### [facility] [address] [place] [address] Type of Urine collection method Clean Catch Normal [facility] Comment on above: Performed By: #### 1 [id number] #### [facility] [address] [place] [address] Urobilinogen Qn (U) 0.2 {Andrea'U}/dL Normal 0.0-1.0 [facility] Comment on above: Performed By: #### 1 [id number] #### [facility] [address] [place] [address] WBC Auto Ql (U) Negative Normal Negative [facility] Comment on above: Performed By: #### 1 [id number] #### [facility] [address] [place] [address] WBC LM.HPF (Urine sed) [#/Area] 0-5 Normal 0-5 [facility] Comment on above: Performed By: #### 1 0351606 #### [facility] [address] [place] [address] URINALYSISOrdered By: Renato Norman on 08-26-2022 Bacteria LM Ql (Urine sed) Trace /HPF Normal Trace/HPF FT UA Auto SS Bilirubin Ql (U) Negative (08/26/22 12:01 PM) Normal Negative FT UA Auto SS Clarity (U) Clear (08/26/22 12:01 PM) Normal Clear FT UA Auto SS Color (U) Yellow (08/26/22 [...] Interpretation Code Negative [facility] UA Auto SS [place].plasma/Lithiu m.RBC (Bld) [Mass ratio] 0-3 /HPF Normal 0-3/HPF [facility] UA Auto SS Mucus Ql (Urine sed) 2+ (08/26/22 12:01 PM) Normal [facility] UA Auto SS Nitrite Ql (U) Negative (08/26/22 12:01 PM) Normal Negative [facility] UA Auto SS pH (U) 8.5 *NA* (08/26/22 12:01 PM) Invalid Interpretation Code 5.0 - 9.0 [facility] UA Auto SS Protein (U) [Mass/Vol] Trace *ABN* (08/26/22 12:01 PM) Invalid Interpretation Code Negative [facility] UA Auto SS Specific gravity (U) [Rel density] 1.015 *NA* (08/26/22 12:01 PM) Invalid Interpretation Code 1.005 - 1.030 [facility] UA Auto SS UA Spec Desc Clean Catch (08/26/22 12:01 PM) Normal [facility] UA Auto SS Urobilinogen Qn (U) 0.7824870 {Andrea'U}/dL Normal 0.0 - 1.0 EU/dL [facility] UA Auto SS WBC Auto Ql (U) Negative (08/26/22 12:01 PM) Normal Negative [facility] UA Auto SS WBC LM.HPF (Urine sed) [#/Area] 0-5 /HPF Normal 0-5/HPF [facility] UA Auto SS eGFRon 08-26-2022 GFR/1.73 sq M.predicted among blacks MDRD (S/P/Bld) [Vol rate/Area] mL/min/{1.73_m2} Normal >=59 [facility] Comment on above: Order Comment: Order added by Discern Expert. Result Comment: eGFR is race adjusted. AA=. Performed By: #### 1 [id number], 4927148, 0287951, 1547567, 9834111 ####[facility] [address] [place] [address] GFR/1.73 sq M.predicted among non-blacks MDRD (S/P/Bld) [Vol rate/Area] mL/min/{1.73_m2} Normal >=59 [facility] Comment on above: Order Comment: Order added by Discern Expert. Result Comment: Retail Sales Manager emil kidney disease could be indicated at eGFR's of less than 60 mL/min/1.73m2. Kidney failure is indicated at less than 15 mL/min/1.73m2. Performed By: #### 1 [id number], 4444313, 9455149, 3564683, 5594005 ####[facility] [address] [place] [address] CBC with Auto Differentialon 08-24-2022 Absolute Eos # 0.60 High [facility] Absolute Lymph # 2.30 [facility] Absolute Owsley # 1.00 [facility] Basophils (Bld) [#/Vol] 0.10 10*3/uL [facility] Basophils/100 WBC (Bld) 0 % 0 - 2 % [facility] Differential Type YES [facility] Eosinophils/100 WBC (Bld) 4 % 0 - 5 % [facility] Hematocrit (Bld) [Volume fraction] 38.3 % 36 - 46 % [facility] Hemoglobin (Bld) [Mass/Vol] 12.7 g/dL 12.0 - 16.0 g/dL [facility] Interpretation and review of laboratory results Abnormal [facility] Lymphocytes/100 WBC (Bld) 16 % 15 - 40 % [facility] MCH (RBC) [Entitic mass] 29.3 pg 26 - 34 pg [facility] MCHC (RBC) [Mass/Vol] 33.1 g/dL 31 - 37 g/dL [facility] MCV (RBC) [Entitic vol] 88.6 fL 80 - 100 fL [facility] Monocytes/100 WBC (Bld) 7 % 4 - 8 % [facility] Platelet distribution width (Bld) [Ratio] 13.1 % 12.1 - 15.2 % [facility] Platelets (Bld) [#/Vol] 324 10*3/uL [facility] RBC (Bld) [#/Vol] 4.32 10*6/uL 4.0 - 5.2 m/uL [facility] Segmented neutrophils/100 WBC (Bld) 73 % 47 - 75 % [facility] Segs Absolute 10.20 High [facility] WBC (Bld) [#/Vol] 14.1 10*3/uL High [facility] Comprehensive Metabolic Pane aramis 08-24-2022 Albumin [Mass/Vol] 4.4 g/dL 3.5 - 5.2 g/dL [facility] ALP (Bld) [Catalytic activity/Vol] 75 U/L 35 - 104 U/L [facility] ALT [Catalytic activity/Vol] 14 U/L 5 - 33 U/L [facility] Anion gap [Moles/Vol] 12 mmol/L 9 - 17 mmol/L [facility] AST [Catalytic activity/Vol] 14 U/L NINF - 32 U/L [facility] Bilirubin [Mass/Vol] 0.3 mg/dL 0.3 - 1 .2 mg/dL [facility] Calcium [Mass/Vol] 9.0 mg/dL 8.6 - 10. 4 mg/dL [facility] Chloride [Moles/Vol] 102 mmol/L 98 - 10 7 mmol/L [facility] CO2 [Moles/Vol] 22 mmol/L 20 - 31 mmol/L [facility] Creatinine [Mass/Vol] 0.52 mg/dL 0.50 - 0.90 mg/dL [facility] GFR/1.73 sq M.predicted MDRD (S/P/Bld) [Vol rate/Area] - PINF [facility] Comment on above: Effective May 27, [...] 124 mg/dL High 70 - 99 mg/dL [facility] Interpretation and review of laboratory results Abnormal [facility] Potassium [Moles/Vol] 3.2 mmol/L Low 3.7 - 5.3 mmol/L [facility] Protein [Mass/Vol] 6.7 g/dL 6.4 - 8.3 g/dL [facility] Sodium [Moles/Vol] 136 mmol/L 135 - 144 mmol/L [facility] Urea nitrogen (BldV) [Mass/Vol] 10 mg/dL 6 - 20 mg/dL [facility] Urea nitrogen/Creatinine (Bld) [Mass ratio] 19 9 - 20 [facility] HCG Qualitative, Serumon hCG Qual Positive Abnormal NEGATIVE [facility] Comment on above: If HCG results do not concur with clinical observations, additional testing to confirm result is recommended. This test is not labeled for use as a tumor marker. [employer] has confirmed the use of plasma for this test. This has not been cleared or approved by the U.S. Food and Drug Administration. The FDA has determined that such clearance is not necessary. Interpretation and review of laboratory results Abnormal [facility] Urinalysison 08-24-2022 Bilirubin Urine Negative NEGATIVE [facility] Color, UA Yellow Yellow [facility] Glucose, Ur Negative NEGATIVE [facility] Interpretation and review of laboratory results Abnormal [facility] Ketones Ql (U) MODERATE Abnormal NEGATIVE [facility] Leukocyte esterase Test strip Ql (U) Negative NEGATIVE [facility] Nitrite, Urine Negative NEGATIVE [facility] pH, UA 6.0 5.0 - 8.0 [facility] Protein, UA TRACE Abnormal NEGATIVE [facility] Specific Fraser, UA 1.025 1.005 - 1.030 [facility] Turbidity UA Clear Clear [facility] Urinalysis Comments [facility] Urine Hgb Negative NEGATIVE [facility] Urobilinogen, Urine Normal Normal [facility] CBC with Auto Differentialon 08-10-2022 Absolute Eos # 0.30 [facility] Absolute Lymph # 2.80 [facility] Absolute Owsley # 0.80 [facility] Basophils (Bld) [#/Vol] 0.00 10*3/uL [facility] Basophils/100 WBC (Bld) 0 % 0 - 2 % [facility] Differential Type YES [facility] Eosinophils/100 WBC (Bld) 3 % 0 - 5 % [facility] Hematocrit (Bld) [Volume fraction] 37.7 % 36 - 46 % [facility] Hemoglobin (Bld) [Mass/Vol] 12.7 g/dL 12.0 - 16.0 g/dL [facility] Lymphocytes/100 WBC (Bld) 26 % 15 - 40 % [facility] MCH (RBC) [Entitic mass] 29.5 pg 26 - 34 pg [facility] MCHC (RBC) [Mass/Vol] 33.7 g/dL 31 - 37 g/dL [facility] MCV (RBC) [Entitic vol] 87.5 fL 80 - 100 fL [facility] Monocytes/100 WBC (Bld) 8 % 4 - 8 % [facility] Platelet distribution width (Bld) [Ratio] 13.1 % 12.1 - 15.2 % [facility] Platelets (Bld) [#/Vol] 269 10*3/uL [facility] RBC (Bld) [#/Vol] 4.31 10*6/uL 4.0 - 5.2 m/uL [facility] Segmented neutrophils/100 WBC (Bld) 63 % 47 - 75 % [facility] Segs Absolute 7.00 [facility] WBC (Bld) [#/Vol] 10.9 10*3/uL [facility] CMPon 08-10-2022 Albumin [Mass/Vol] 4.2 g/dL 3.5 - 5.2 g/dL [facility] ALP (Bld) [Catalytic activity/Vol] 75 U/L 35 - 104 U/L [facility] ALT [Catalytic activity/Vol] 18 U/L 5 - 33 U/L [facility] Anion gap [Moles/Vol] 7 mmol/L Low 9 - 17 mmol/L [facility] AST [Catalytic activity/Vol] 16 U/L NINF - 32 U/L [facility] Bilirubin [Mass/Vol] 0.2 mg/dL Low 0.3 - 1 .2 mg/dL [facility] Calcium [Mass/Vol] 9.1 mg/dL 8.6 - 10. 4 mg/dL [facility] Chloride [Moles/Vol] 108 mmol/L High 98 - 10 7 mmol/L [facility] CO2 [Moles/Vol] 25 mmol/L 20 - 31 mmol/L [facility] Creatinine [Mass/Vol] 0.58 mg/dL 0.50 - 0.90 mg/dL [facility] GFR/1.73 sq M.predicted MDRD (S/P/Bld) [Vol rate/Area] - PINF [facility] Comment on above: Effective May 27, [...] [Mass/Vol] 95 mg/dL 70 - 99 mg/dL [facility] Interpretation and review of laboratory results Abnormal [facility] Potassium [Moles/Vol] 4.2 mmol/L 3.7 - 5.3 mmol/L [facility] Protein [Mass/Vol] 6.8 g/dL 6.4 - 8.3 g/dL [facility] Sodium [Moles/Vol] 140 mmol/L 135 - 144 mmol/L [facility] Urea nitrogen (BldV) [Mass/Vol] 7 mg/dL 6 - 20 mg/dL [facility] Urea nitrogen/Creatinine (Bld) [Mass ratio] 12 9 - 20 [facility] Lipaseon 08-10-2022 Lipase [Catalytic activity/Vol] 26 U/L 13 - 60 U/L [facility] No Panel Informationon 08-10 [facility] Urinalysison 08-10-2022 Bilirubin Urine Negative NEGATIVE [facility] Color, UA Yellow Yellow [facility] Glucose, Ur Negative NEGATIVE [facility] Interpretation and review of laboratory results Abnormal [facility] Ketones Ql (U) Negative NEGATIVE [facility] Leukocyte esterase Test strip Ql (U) Negative NEGATIVE [facility] Nitrite, Urine Negative NEGATIVE [facility] pH, UA 7.0 5.0 - 8.0 [facility] Protein, UA TRACE Abnormal NEGATIVE [facility] Specific Fraser, UA 1.010 1.005 - 1.030 B ON [facility] Turbidity UA Clear Clear [facility] Urinalysis Comments [facility] Urine Hgb Negative NEGATIVE [facility] Urobilinogen, Urine Normal Normal [facility] hCG, quantitative, on 08-10-2022 hCG Quant 587 High NINF [facility] Comment on above: Non-preg premeno <=5 Postmeno <=8 Male <=3 If HCG results do not concur with clinical observations, additional testing to confirm results is recommended. Interpretation and review of laboratory results Abnormal [facility] Coding Summary.on 07-15-2022 Coding Summary. [id number] Gh0bWw+PGhlYWQ+PE1FV RWkO38pkTGotM5AO0qRV Z7HTTPPLDJNQJ2YOB6cm PV1TEzdB7GpyuUx PerfzLNdEX38NOi9FSM9 dKiiZLmpfZ6peOXaJ6b2 IaTyZH45gJ20IRipJSMk IhD2GsLegzeuuSSe E3rrXsOxfFWyVra+PHRh YmxlIHdpZHRoPScxMDAl WeWkfHnbZR3cRt2mBGQp LWNvbGxhcHNlOiBj j4ehGDGdJCjeYJ8rkQpp M8QsmQS7GMHfe3p4Vx06 dHI+AHMlMMT0xNlfOUyq k304JjGnz1bvFME8 zKIkOUkqBBH2B17ko8F3 WJFdFGSqRJH8dFQ0yS4x oIqvmfheQ5UlzVPcDiY7 BVK7yZZixP9cvUnt dqrweK6bSxo+Q23SPA4K BGNROO4LZgt1T8QjZcjv dHI+HO73QZOmDQ67fQEm uSRgb8xxvZq1YkOl CICiHWW9pZxhWDwln5Zt LQOsI58eySRrn9Z6VLIb yJdeeFMaUyPipMN4xZ8f VVxtgzkdq0nnnynf Xgmha0sddx00oN65M86z WPcjNHEjOPP0ZCDmADHq mGupjs5erM7xQa6+IDxj f8law8ojrVz2KcSz ABLnrbPbzHpbRTV5a6Oo Yp92B3LtiGggv4MnYar2 zz70hVFsw6K2jNH2NOzk PJJmmD7aZApwBuK3 SNHeAiPxoC72aPZcGXnc Mi2erKcbcAypYU6gZVAs unhiEECwhP2iBFIwgQZo zHuvUT3jMIDslkwk q591AgHsZMJ1LKMeoGJr T6AgpY0yMmVmTERiBQYd F2EfhJQkXEziX022RRqb CaH3TMUntjKhP7Rf LWPpyVxaBqA0s8O9Gx4T w6EeesljJNM8ZDggIGUk HaYuFkVlUuS7H0NfLjc3 YKEppKesCU5gH1Cq TVQwvfmwycagePI0NVAk DKMspE22jBTsGHxpFq0n l7G2z252IWRpHPPoaG01 Yw2lrDetGTHlyVWO jY6babpqi1qaklvgWuTm GRFaHCg3MAr1FWUqvDwf FlBnAHN9VuM6BVK1xLAd bZ7kaBzhdlrcrJ7j Oyc+W50quY3bBQU9LGT1 jdwqFFDvrmCiVK12QY04 W9EiSczaoJYepVZ+PGRp hsXfkYztOS0uYzHh d9nvw9KlAFwtV2QjQGPk VShoKrh2TRKlCQA8cEU5 jR5eUIYeNEmer9L8iPJ2 L6TsivUxfn3zm2ih QGAcNTwjD36vnHScd4K3 DPBcwPC3AKPlrEchTmLw pU24Gly+PNMscCnfc8Wn Gknyu9rvi8znkBi8 IjMwJSIgdmFsaWduPSJ0 b8VsMs50H55eTTmrJDGz ULIuCRPqHFWxkOsaqy4v fD7iYo8+PGNvbCB3 tNX6yY9bWVXpLjI9TCml A313OaFmsIZaLlohz7cu t3argRr0JjUnILUnzhBb jSpbVLD6l1LnGf97 S49kXXrhWPUlUAPgUUZm DEHmiRvmwr4gtO0xVn2+ OW5sk5mtah54jU88kNS+ THOwHBR9vHbnPRwa WQWoiX6pEKyuEnF0GEKp BrCtcW14fBVhILhgQz8j sIofiFlcKR2fAGCjlgfj j577NlQho6xlEUHt cSCeGBylDSU1W94op0D4 VKDqHJDrUEY2qLJ4aM4q bGlnbjogbGVmdDsgdmVy vGlyTZuvNSygE296 IHRvcDsnPlBhdGllbnQg WlYrMWd9J8CzBvy9PCCs oOwnPW8ppSNgUCyhFw0q tHhaiNolMV0ySMNk ffyhv095KfWpg7ysAVGb xBXnLDnaCLX5D60jp5G0 SDWcAUIsJJU9mNT7rQ2p bGlnbjogbGVmdDsg sdUtyFtxONrcNQwiA306 IHRvcDsnPkJpcnRoIERh iFE5XS05HL89oXGgk3Z1 yZP7B7IzDQHyelvl ddiweQB2EPVyMCGlfN65 Xh3scYoqXt9nWRElJZC3 HLAhcJFhV1IvgW7kQoYa EBAdIMElI8RuvSLk CIzrJ784WZapKpP5MKJw rnGoP5MfIAJseMwlSpY9 n1J7Lx2MX1J5QM09LM96 wJHfq2R0kCC9R0Eg GIDuheyvbountJX0CRTy CMEhyE69Yj2rcXixYq2f FCXwIHW6YGWhyJJqQ5Aq gU7fPlHsLASlKNHt T1OpfFAnXKdjJ005OLcc PuY5MXKaxeKtJ3FtXACj xJncJkA9z4M9Sw9OZAd2 EY32DX48vIKsa6F5 fRH7B5QqKWFbdxbodusq uQN5HSOjVGGlaA15Yk3e iPzjWo1uYFRrFKC0CLDb sOLgH0XqhF2uAiPx QARrDJFsB4MqbKDhCYue N874GLzwQzZ0LNVpbiHc P4TwOIImgAydVsY7m7V0 Nu0FZQRhDY03QCZ1 vPP4TP00KS11M1GnDedr dGFibGU+PHRhYmxlIHdp ZHRoPScxMDAlJyBzdHls XK1yZp3aAHVcUDYl xHgjjYRdUrRbq1zpQJFi XAbvBI6xrPpgC4HcrIT0 TWFgr9k6Zd07T49hF1Dl dXA+GEEroOI0qKW2 qW5bMmPcFkJ3HQstY167 PaCfuKUtAjufg8dad8uh dGc9UmU8AJKuxuAfrCwz CTS8k1LkLj30E31f IHdpZHRoPSIxNSUiIHZh hYxrzt0kaT2uYq2+PGNv qZF7aHQ8lA9eNqUdUoV0 IXuvX643UiMnvJOz Ozcqy8eyx6cjzPq3QpMe QKWpjhRazWerCSA3s9Rb Kq64I6IroKhtl6JiZbv6 pf11hVBtm4L1pYH3 A4ChBIXieetwxQErwYoc PE5cAVQovqcaEITzcK2g QSYbB5x7WmWaBxA3GQia K4FqptY8FUKvtSZl GPdsYFB3Z67ra2F6TRIn DPHyADZ0yVU2lW6wnAvw bjogbGVmdDsgdmVydGlj JImeGQneW710FUGa oYhjEZLauC9bHVPplBPg cYmqMF1nSLHdwicpUs3V CODRLQUWHFNFFWTVRI7Q YU91H5GxPuf1IYGp wKvuGT4wdTWkXAeeXe2j hKjykNfkOU4jQPVfmcxi NGBxnJ9gLFLobFWznAdg TY6lTUFfkswtv866 WmGaWAV1ETVvfHZdA2Pb wY4zJxPxYZSuXYFkW8Sk yIXzBEpdY713PJjjDlV3 AQUlgsNiF3XsKDWf tUkiZoO6s1H4Ed8sQX5h IO0cFWMvAG23CX80oERa a6W2lBY1Q3VfYSCxngox zufqpTG6CPSmLGRx wR43rFFpHBcmVz1nm0D4 i735IGBlVBRpxK87Qg2y mAqgLWQvdWVZgK8yplbg j6atalnhEtYgQPYr AWd9JSo7ICQgqHujNzBf FLT2SdK5IYY5cBYzsF0o uCrovocngC7dXmh+MjEg SWCfoiZ7W9SiOlo2 PTZogRscPW7xfGLkAOet Or8bpHdcdUdjSD0hEKPi jupgBNLznM7cUZHrlYRx iPslHT0dTYQnybrt q226LlXdKHQ6IGFufOSk L3KjeY8lVoZkYHMyWKNg T4BilMRoFUhoA062WHnh MhT8NSBbvqHcV7Ql SGVmrQsySsK7m0P5Xl5M EQ3dnQI7V5RuOpp2WUPq tBdhBW2wwAHpVAluQl4f gVxdrIppIZ9xJGVz vzbnCFOmdK1iWQCthVNz hZzmGO9dOCQfmxeuu987 JmUfMQT0KRXzlWRlJ2Fe aC4vDcIdREQyGLMy I3ShzYNhPOaaG012FDlx JvL7VLDddhAgD1CiXDOk zCbpCjB9t4B0Ce6SzOMc E9WyI0e6U0RgVdln dHI+HG75LQGzXR80oUCy fXUco1bugFz6NpYrBYCp EHI7qNxmALhpt7ByMFGb J27abUItw8T9YVFo kIoxaHQqFtDmvIP9hK0f VMxtbmanj1wjffekPdke i0duoc41yX65Z09oEOkp ZHRoPSIzMCUiIHZh yFlbak4zzC6tVx7+PGNv uUE9gPS1yD8kZkWrZbG9 GQowB638NrTvkEIzBwly x3vzj9xmkKf5CgHw EWWzrxJpgXinPUR3g9Dj Gj34C51sWBwxVGZyZWDu UUBeFLDqhChsgz3yuX7t Ii8+AG0eo1hdhd70 hA67gEI+FGMgSCT4hRmw OEvjNEPqpZ7eEJcyQsM2 QTKtVrHjvT64oDBzNUrp Qx6rrGudvRbfLI6e JFBlnwfrq601KwMnp5xo KIZtaYAoGAaeAKZ1O55d x4Z8QKMaWVAtQQB4yIK5 iH8yeUitfnckzUMf dDsgdmVydGljYWwtYWxp T689TWDerAxgTwXilEJq F7qjvcGPBI0rZjkzdRP+ KEDlMEN7sLhjCBrw EPReeY8yICOsQ5o5TvBl IoN6OMmkN3NuiuZ3ZBFg eZYuQPUwhALXiU6lemve y7igvibkIxGiOWGd XNc1MEe6OEVjrFajQlZb PXD5YyA5SOW4yHYtrX1e tHsvceqzjA2oDpd+RklO OjwvdGQ+PHRkIHN0 nEyiMZedVJUukQ0bOSKe U5q1GyHrAlV8YGftX3Hv lsT5GIFkqGLdZUDuxPYB aO4ggdoif9zkwfdr PiMaAEFxXHc4LBj9JPQa hGenEaKjVTC9VbC6QMF9 xQLooX6gfJwzbhcxnG8c Oyc+TVJOOjwvdGQ+ VKKoVMT6cCcjMFmhJWWh rT8vJYVgR6g4DvZmOiU5 TMukB8QogeS0SOPlmENo AVIzuAZBwG2oaqbz e0nkggsvRhKiVWQtJId8 BTj2UJBxgYpdAzEnEZT3 WdV6QEI8fQWfjM2lzYyk yhhdaQ4vLyf+UGF5 SCC6HR54NG73K2QeGkua dGFibGU+PHRhYmxlIHdp ZHRoPScxMDAlJyBzdHls IA9mFp8vRLUbGNAw bGxh (more content not included)... Normal [facility] Auto Diffon 07-12-2022 Basophils/100 WBC (Bld) 0.6 % Normal 0.0-2.0 [facility] Comment on above: Order Comment: Order Added by Discern Expert. Performed By: #### 2 008580, 7324000, 5539990, 8175835, 55525953, 5969913, 4109592 #### [facility] Laboratory [address] [place] [address] Basophils/Leukocytes Auto (Bld) [Pure # fraction] 0.1 E9/L Normal 0.0-0.2 [facility] Comment on above: Order Comment: Order Added by Discern Expert. Performed By: #### 2 526584, 3440531, 2626201, 8619225, 62911018, 5422008, 9085191 #### [facility] [address] [place] [address] Eosinophils/100 WBC (Bld) 5.6 % Normal 0.0-8.0 [facility] Comment on above: Order Comment: Order Added by Discern Expert. Performed By: #### 2 365043, 1561634, 1775944, 7528738, 04037097, 3918432, 9269920 #### [facility] [address] [place] [address] Eosinophils/Leukocyte s Auto (Bld) [Pure # fraction] 0.5 E9/L Normal 0.0-0.5 [facility] Comment on above: Order Comment: Order Added by Discern Expert. Performed By: #### 2 678027, 3061706, 3076906, 2298523, 83921829, 8720814, 7410537 #### [facility] [address] [place] [address] Lymphocytes/100 WBC (Bld) 34.7 % Normal 14.0-50.0 [facility] Comment on above: Order Comment: Order Added by Ally Expert. Performed By: #### 2 018472, 7536734, 4001310, 6268235, 86227677, 1218527, 4855920 #### [facility] [address] [place] [address] Lymphocytes/Leukocyte s Auto (Bld) [Pure # fraction] 3.1 E9/L Normal 1.0-4.0 [facility] Comment on above: Order Comment: Order Added by Discern Expert. Performed By: #### 2 796320, 0490389, 0394446, 3606585, 20964077, 3529404, 7104354 #### [facility] [address] [place] [address] Monocytes/100 WBC (Bld) 10.3 % Normal 4.0-14.0 [facility] Comment on above: Order Comment: Order Added by Discern Expert. Performed By: #### 2 505151, 8233256, 9543015, 7210080, 14470531, 9753428, 9936030 #### [facility] [address] [place] [address] Monocytes/Leukocytes Auto (Bld) [Pure # fraction] 0.9 E9/L Normal 0.2-1.0 [facility] Comment on above: Order Comment: Order Added by Ally Expert. Performed By: #### 2 522889, 5775189, 6759812, 0128616, 68909944, 0134883, 0046548 #### [facility] [address] [place] [address] Neutrophils/100 WBC (Bld) 48.8 % Normal 36.0-75.0 [facility] Comment on above: Order Comment: Order Added by Discern Expert. Performed By: #### 2 391557, 9902313, 6877856, 4421283, 27450660, 5781705, 1736264 #### [facility] [address] [place] [address] Neutrophils/Leukocyte s Auto (Bld) [Pure # fraction] 4.4 E9/L Normal 2.0-7.5 [facility] Comment on above: Order Comment: Order Added by Ally Expert. Performed By: #### 2 928156, 7185349, 3530638, 4581455, 14361472, 4928389, 8969236 #### [facility] [address] [place] [address] B hCG Qualon 07-12-2022 Beta hCG Ql Negative Normal [facility] Comment on above: Performed By: #### 2 949093, 8440984, 3462133, 5937269, 31214724, 2919496, 5895749 #### [facility] [address] [place] [address] BMPon 07-12-2022 Creatinine [Mass/Vol] 0.7 mg/dL Normal 0.5-1.3 [facility] Comment on above: Performed By: #### 2 576148, 4560035, 1874009, 1809127, 32871452, 0810252, 6774556 #### [facility] [address] [place] [address] Urea nitrogen [Mass/Vol] 9 mg/dL Normal 5-21 [facility] Comment on above: Performed By: #### 2 772947, 4527057, 8224200, 3324245, 09805780, 1163402, 5695427 #### [facility] [address] [place] [address] Urea nitrogen/Creatinine [Mass ratio] 13 No Units Normal 10-20 [facility] Comment on above: Performed By: #### 2 520775, 7582966, 3327442, 6097733, 22580144, 3420937, 4917241 #### [facility] [address] [place] [address] Anion gap [Moles/Vol] 7 mmol/L Normal 6-16 [facility] Comment on above: Performed By: #### 2 293861, 2591753, 9553575, 4430264, 83710104, 5078831, 9006077 #### [facility] [address] [place] [address] Calcium [Mass/Vol] 8.8 mg/dL Low 8.9-11.1 [facility] Comment on above: Performed By: #### 2 433096, 6059081, 2367752, 9368382, 34373294, 0703105, 7492721 #### [facility] [address] [place] [address] Chloride [Moles/Vol] 106 mmol/L Normal 101-111 [facility] Comment on above: Performed By: #### 2 546266, 0804537, 2175283, 0681182, 26991376, 5067873, 8060676 #### [facility] [address] [place] [address] CO2 [Moles/Vol] 31 mmol/L Normal 21-31 [facility] Comment on above: Performed By: #### 2 997445, 5548458, 4726830, 4780432, 94300558, 0121086, 8122002 #### [facility] [address] [place] [address] Glucose [Mass/Vol] 108 mg/dL Normal 55-199 [facility] Comment on above: Result Comment: If t his glucose result represents a fasting glucose, interpretation should refer to the following reference range: 55-99 mg/dL Performed By: #### 2 394897, 2533852, 9962210, 0677837, 60702498, 6675846, 6328539 #### [facility] [address] [place] [address] Potassium [Moles/Vol] 3.3 mmol/L Low 3.5-5.3 [facility] Comment on above: Performed By: #### 2 891324, 5848603, 6781165, 2301267, 18697495, 5288271, 4710083 #### [facility] [address] [place] [address] Sodium [Moles/Vol] 141 mmol/L Normal 135-145 [facility] Comment on above: Performed By: #### 2 971753, 6301150, 5341639, 8843975, 69291188, 2006203, 0177669 #### [facility] [address] [place] [address] CBC w/ Auto Diffon Erythrocyte distribution width (RBC) [Ratio] 13.6 % Normal 10.9-14.2 [facility] Comment on above: Performed By: #### 2 368686, 2550462, 6806253, 1303802, 27348364, 0971498, 7796494 #### [facility] [address] [place] [address] Hematocrit (Bld) [Volume fraction] 35.6 % Normal 34.0-46.0 [facility] Comment on above: Performed By: #### 2 784617, 2033648, 9343828, 7327773, 22674644, 6565565, 8933116 #### [facility] [address] [place] [address] Hemoglobin (Bld) [Mass/Vol] 12.5 g/dL Normal 12.0-16.0 [facility] Comment on above: Performed By: #### 2 165367, 3631702, 7526638, 6521380, 06463999, 2472696, 3733220 #### [facility] [address] [place] [address] MCH (RBC) [Entitic mass] 28.7 pg Normal 27.0-34.0 [facility] Comment on above: Performed By: #### 2 735163, 7599946, 4679053, 9631863, 77271095, 1960207, 3957076 #### [facility] [address] [place] [address] MCHC (RBC) [Mass/Vol] 35.1 g/dL Normal 31.4-36.0 [facility] Comment on above: Performed By: #### 2 115953, 9981084, 4698537, 2661161, 63946913, 7974325, 4174570 #### [facility] [address] [place] [address] MCV (RBC) [Entitic vol] 81.8 fL Normal 80.0-100.0 [facility] Comment on above: Performed By: #### 2 271582, 6493546, 7370899, 1908237, 47987535, 9650734, 6499520 #### [facility] [address] [place] [address] Platelet mean volume (Bld) [Entitic vol] 7.6 fL Normal 6.4-10.8 [facility] Comment on above: Performed By: #### 2 423102, 8022946, 2070852, 4757510, 17158128, 3699920, 7703202 #### [facility] [address] [place] [address] Platelets (Bld) [#/Vol] 262.0 E9/L Normal 150.0-500.0 [facility] Comment on above: Performed By: #### 2 673792, 5739436, 9786903, 7666569, 72849330, 2577657, 7869538 #### [facility] [address] [place] [address] RBC (Bld) [#/Vol] 4.4 E12/L Normal 4.3-5.9 [facility] Comment on above: Performed By: #### 2 831295, 9780816, 1648027, 0343415, 15400956, 4762463, 0342429 #### [facility] [address] [place] [address] WBC corrected for nucl RBC Auto (Bld) [#/Vol] 8.9 E9/L Normal 4.0-11.0 [facility] Comment on above: Performed By: #### 2 171727, 9406467, 8716221, 8566559, 45396091, 5049826, 1035067 #### [facility] [address] [place] [address] CHEMISTRYOrdered By: SYSTEM SYSTEM on 07-12-2022 Albumin [...] 31 mmol/L Normal 21 - 31 mmol/L [facility] Creatinine [Mass/Vol] 0.7 mg/dL Normal 0.5 - 1.3 mg/dL [facility] GFR/1.73 sq M.predicted among blacks MDRD (S/P/Bld) [Vol rate/Area] mL/min/1.73 m2 Normal >=59mL/min/1. 73 m2 [facility] Chem S GFR/1.73 sq M.predicted among non-blacks MDRD (S/P/Bld) [Vol rate/Area] mL/min/1.73 m2 Normal >=59mL/min/1. 73 m2 [facility] S Globulin (S) [Mass/Vol] 3.1 g/dL Normal 1.4 - 4.0 gm/dL [facility] Glucose [Mass/Vol] 108 mg/dL Normal 55 - 199 mg/dL [facility] Lipase [Catalytic activity/Vol] 35 U/L Normal 13 - 58 unit/L [facility] Potassium [Moles/Vol] 3.3 mmol/L Low 3.5 - 5.3 mmol/L [facility] Protein [Mass/Vol] 7.1 g/dL Normal 6.0 [...] Treatmenton 06-25 Consent for Treatment [id number] 21 [id number] #[id number]:127 Normal [facility] Discharge Instructionson Discharge Instructions [id number]#[id number]:127 Normal [facility] ED Clinical Summaryon 2021 ED Clinical Summary [place] [id number] ED Clinical Summary Person Information Name: ROQUE PIERSON/[facility] Age: 22 Years : 2000 Sex: Female Language: Ukrainian PCP: Ambrose Urbano MD Marital Status: Single Visit Id: [...] 07/12/2022 05:07:15 07/12/2022 05:07:15 07/12/2022 05:07:15 ADDRESS: [address] [place] [id number] PHYS DOC NOTES: MEDICAL INFORMATION: Prescriptions Given: [...] PATIENT EDUCATION INFORMATION: Instructions: Abdominal Pain, Adult, Wycv-qy-Yfph Follow up: With: Address: When: Ambrose Urbano [address] [place] [address], [facility] [place] [phone] Business (1) In 3 days 07/15/2022 Comments: [...] worsening symptoms. DIAGNOSIS: Epigastric abdominal pain Normal [facility] ED Note-Physicianon 07-12-20 ED Note-Physician Basic Information Time Seen: Sissy Shah DO 07/12/2022 03:40 Chief Complaint Pt. 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 Normal [facility] Comment on above: Result Comment: Elec tronically [...] these instructions at home: Medicines ? Take gxkx-rqu-lzckrdi and prescription medicines only as told by [...] belly pain for any changes. ? Take rgnz-vea-zegpazi and prescription medicines only as told by [...] 01/27/2009 Document Revised: 12/20/2019 Document Reviewed: 12/20/2019 [employer] Patient Education ? 2019 [employer]. [facility] ED Patient Summaryon 022 ED Patient Summary [address] [address] Patient Discharge Instructions Person Information Name: ROQUE PIERSON Age: 22 Years Arrival Date: 07/12/2022 03:36:47 Discharge Diagnosis: Epigastric abdominal pain Primary Care Physician: Ambrose Urbano MD Provider Information Primary Provider: Sissy Shah DO Advanced Financial Writer:None The exam and treatment you received in the Emergency Department were for an urgent problem and are not intended as complete care. It is important that you follow up with a doctor, nurse practitioner, or physician?s expanded duty dental assistant for ongoing care. If your symptoms become worse or you do not improve as expected and you are unable to reach your usual health care provider, you should return to the Emergency Department. We are available 24 hours a day. ROQUE PIERSON has been given the following list of patient education materials, prescriptions and follow-up instructions: Follow-up Instructions: With: Address: When: Ambrose Yolie [address] [place] [address], [place] [address] Business (1) In 3 days 07/15/2022 Comments: [...] provider. Patient Education Materials: Abdominal Pain, Adult, [id number] A MESSAGE TO ALL PATIENTS REGARDING OPIOIDS PRESCRIPTION OPIOIDS: WHAT YOU NEED TO KNOW Prescription opioids can be used to help relieve lmjarfuh-rh-hasamo pain and are often prescribed following a [...] toilet, fol (more content not included)... Normal [facility] HEMATOLOGYOrdered By: SYSTEM SYSTEM on 07-12-2022 Basophils/100 WBC (Bld) 0.6 % Normal 0.0 - 2.0 % [facility] HemeAutoSS Basophils/Leukocytes Auto (Bld) [Pure # fraction] 0.1 E9/L Normal 0.0 - 0.2 E9/L [facility]eAuto[facility] Eosinophils/100 WBC (Bld) 5.6 % Normal 0.0 - 8.0 % [facility]eAutoSS Eosinophils/Leukocyte s Auto (Bld) [Pure # fraction] 0.5 E9/L Normal 0.0 - 0.5 E9/L [facility]eAuto[facility] Lymphocytes/100 WBC (Bld) 34.7 % Normal 14.0 - 50.0 % [facility] [...] 35.1 g/dL Normal 31.4 - 36.0 gm/dL [facility] HemeAutoSS MCV (RBC) [Entitic vol] 81.8 fL Normal 80.0 - 100.0 fL [facility] HemeAutoSS Platelet mean volume (Bld) [Entitic vol] 7.6 fL Normal 6.4 - 10.8 fL [facility] HemeAutoSS Platelets (Bld) [#/Vol] 262.0 E9/L Normal 150.0 - 500.0 E9/L [facility] HemeAutoSS RBC (Bld) [#/Vol] 4.4 E12/L Normal 4.3 - 5.9 E12/L [facility] HemeAutoSS WBC corrected for nucl RBC Auto (Bld) [#/Vol] 8.9 E9/L Normal 4.0 - 11.0 E9/L [facility] Hep Func Panelon 07-12-2022 Bilirubin.indirect [Mass or moles/Vol] UTC Abnormal 0.1-0.9 [facility] Comment on above: Result Comment: Resu lt verified by [employer] Rule. Performed result UTC (Unable to Calculate) was sent as an Alpha code due the inability to calculate a valid numeric value. Performed By: #### 2 [id number], [id number], [id number], [id number], [id number], [id number], [id number] #### [facility] [address] [place] [address] Albumin [Mass/Vol] 4.0 g/dL Normal 3.3-5.0 [facility] Comment on above: Performed By: #### 2 [id number], [id number], [id number], [id number], [id number], [id number], [id number] #### [facility] [address] [place] [address] Albumin/Globulin (S) [Mass conc ratio] 1.3 Normal 1.1-2.2 [facility] Comment on above: Performed By: #### 2 [id number], [id number], 0809231, 1451674, [id number], 2189878, 9092864 #### [facility] [address] [place] [address] ALP [Catalytic activity/Vol] 59 Int._Unit/L Normal 21-98 [facility] Comment on above: Performed By: #### 2 [id number], 0770019, 7775929, 8107374, [id number], 7294409, 1311012 #### [facility] [address] [place] [address] ALT No additional P-5'-P [Catalytic activity/Vol] 17 Int._Unit/L Normal 6-46 [facility] Comment on above: Performed By: #### 2 [id number], [id number], 0838235, [id number], [id number], 7842731, 5143718 #### [facility] [address] [place] [address] AST [Catalytic activity/Vol] 17 Int._Unit/L Normal 5-43 [facility] Comment on above: Performed By: #### 2 [id number], 1270746, 8068672, 7378079, [id number], 4187623, 8910493 #### [facility] [address] [place] [id number] Bilirubin [Mass/Vol] 0.3 mg/dL Normal 0.0-1.1 [facility] Comment on above: Performed By: #### 2 [id number], [id number], [id number] #### [facility] [address] [place] [id number] Bilirubin.direct [Mass/Vol] mg/dL Normal 0.1-0.4 [facility] Comment on above: Performed By: #### 2 [id number], [id number], [id number], [id number] #### [facility] [address] [place] [address] Globulin (S) [Mass/Vol] 3.1 g/dL Normal 1.4-4.0 [facility] Comment on above: Performed By: #### 2 [id number], [id number], [id number] #### [facility] [address] [place] [address] Protein [Mass/Vol] 7.1 g/dL Normal 6.0-7.8 [facility] Comment on above: Performed By: #### 2 [id number], [id number], [id number], [id number], [id number] #### [facility] [address] [place] [address] Lipase Levelon 07-12-2022 Lipase [Catalytic activity/Vol] 35 U/L Normal 13-58 [facility] Comment on above: Performed By: #### 2 [id number], [id number], [id number], [id number], [id number] #### [facility] [address] [place] [address] SEROLOGYOrdered By: Mignon Gupta on 07-12-2022 Beta hCG Ql Negative (07/12/22 4:02 AM) Normal [facility] Man Sero Troponin 0 Hr.on 07-12-2022 Troponin I.cardiac [Mass/Vol] ng/mL Low 10.10-27.10 [facility] Comment on above: Result Comment: The 95% CI (Confidence Interval) PPV (Positive Predictive Value) for myocardial infarction in females is 38 pg/mL, in males 51 pg/mL. The results should be used in conjunction with clinical conditions of myocardial infarction. (Access High Sensitivity Troponin I Instructions For Use, [employer], March 2018) Performed By: #### 2 [id number], [id number], [id number], [id number], [id number] #### [facility] [address] [place] [address] XR Chest Single Viewon 07-12 XR Chest [...] Hanson M.D. Transcribed by: KG Technologist: [place] Andrea [facility] eGFRon 07-12-2022 GFR/1.73 sq M.predicted among blacks MDRD (S/P/Bld) [Vol rate/Area] mL/min/{1.73_m2} Normal >=59 [facility] Comment on above: Order Comment: Order added by Discern Expert. Result Comment: eGFR is race adjusted. AA=. Performed By: #### 2 [id number], [id number], [id number], [id number], [id number], [id number] #### [facility] [address] [place] [address] GFR/1.73 sq M.predicted among non-blacks MDRD (S/P/Bld) [Vol rate/Area] mL/min/{1.73_m2} Normal >=59 [facility] Comment on above: Order Comment: Order added by Discern Expert. Result Comment: Retail Sales Manager emil kidney disease could be indicated at eGFR's of less than 60 mL/min/1.73m2. Kidney failure is indicated at less than 15 mL/min/1.73m2. Performed By: #### 2 [id number], [id number], [id number], [id number], [id number], [id number], [id number] #### [facility] [address] [place] [address] CBC with Auto Differentialon 04-18-2022 Absolute Eos # 0.20 [facility] Absolute Lymph # 1.60 [facility] Absolute Owsley # 0.60 [facility] Basophils (Bld) [#/Vol] 0.00 10*3/uL [facility] Basophils/100 WBC (Bld) 0 % 0 - 2 % [facility] Differential Type YES [facility] Eosinophils/100 WBC (Bld) 2 % 0 - 5 % [facility] Hematocrit (Bld) [Volume fraction] 38.2 % 36 - 46 % [facility] Hemoglobin (Bld) [Mass/Vol] 12.7 g/dL 12 - 16 g/dL [facility] Interpretation and review of laboratory results Abnormal [facility] Lymphocytes/100 WBC (Bld) 16 % 15 - 40 % [facility] MCH (RBC) [Entitic mass] 28.1 pg 26 - 34 pg [facility] MCHC (RBC) [Mass/Vol] 33.2 g/dL 31 - 37 g/dL B ON [facility] MCV (RBC) [Entitic vol] 84.6 fL 80 - 100 fL [facility] Monocytes/100 WBC (Bld) 6 % 4 - 8 % [facility] Platelet distribution width (Bld) [Ratio] 13.3 % 12.1 - 15.2 % [facility] Platelets (Bld) [#/Vol] 294 10*3/uL [facility] RBC (Bld) [#/Vol] 4.52 10*6/uL 4 - 5.2 m/uL [facility] Segmented neutrophils/100 WBC (Bld) 76 % High 47 - 75 % [facility] Segs Absolute 7.60 High [facility] WBC (Bld) [#/Vol] 10.0 10*3/uL [facility] CMPon 04-18-2022 Albumin [Mass/Vol] 4.4 g/dL 3.5 - 5.2 g/dL [facility] ALP (Bld) [Catalytic activity/Vol] 93 U/L 35 - 104 U/L [facility] ALT [Catalytic activity/Vol] 17 U/L 5 - 33 U/L [facility] Anion gap [Moles/Vol] 8 mmol/L Low 9 - 17 mmol/L [facility] AST [Catalytic activity/Vol] 17 U/L NINF - 32 U/L [facility] Bilirubin [Mass/Vol] 0.20 mg/dL Low 0.3 - 1 .2 mg/dL [facility] Calcium [Mass/Vol] 9.5 mg/dL 8.6 - 10. 4 mg/dL [facility] Chloride [Moles/Vol] 106 mmol/L 98 - 10 7 mmol/L [facility] CO2 [Moles/Vol] 26 mmol/L 20 - 31 mmol/L [facility] Creatinine [Mass/Vol] 0.66 mg/dL 0.5 - 0.9 mg/dL [facility] Free PSA/Total PSA [Mass fraction] 6.9 g/dL 6.4 - 8.3 g/dL [facility] GFR >60 60 - PI NF mL/min [facility] GFR Non- >60 60 - PINF mL/min [facility] GFR/1.73 sq M.predicted MDRD (S/P/Bld) [Vol rate/Area] [facility] Comment on above: Average GFR for 20-2 9 years old: 116 mL/min/1.73sq m Chronic Kidney Disease: <60 mL/min/1.73sq m Kidney failure: <15 mL/min/1.73sq m eGFR calculated using average adult body mass. Additional eGFR calculator available at: http://www.[employer]/multiple_crcl_2012.htm Glucose [Mass/Vol] 108 mg/dL High 70 - 99 mg/dL [facility] Interpretation and review of laboratory results Abnormal [facility] Potassium [Moles/Vol] 3.6 mmol/L Low 3.7 - 5.3 mmol/L [facility] Sodium [Moles/Vol] 140 mmol/L 135 - 144 mmol/L [facility] Urea nitrogen (BldV) [Mass/Vol] 5 mg/dL Low 6 - 20 mg/dL [facility] Urea nitrogen/Creatinine (Bld) [Mass ratio] 8 Low 9 - 20 [facility] HCG Qualitative, Serumon hCG Qual Negative NEGATIVE [facility] Comment on above: Specimens with hCG l evels near the threshold of the test (25 mIU/mL) may give a negative or indeterminate result. In such cases, another test should be performed with a new specimen in 48-72 hours. If early is suspected clinically in this setting, correlation with quantitative serum b-hCG level is suggested. [employer] has confirmed the use of plasma for this test. This has not been cleared or approved by the U.S. Food and Drug Administration. The FDA has determined that such clearance is not necessary. [facility] Microscopic Urinalysison - [facility] Epithelial Cells UA 0 TO 2 /HPF [facility] RBC, UA 2 TO 5 [facility] WBC, UA NONE SEEN 0 /HPF [facility] Urinalysison 04-18-2022 Bilirubin Urine Negative NEGATIVE [facility] Color, UA Yellow Yellow [facility] Glucose, Ur Negative NEGATIVE [facility] Interpretation and review of laboratory results Abnormal [facility] Ketones Ql (U) Negative NEGATIVE [facility] Leukocyte esterase Test strip Ql (U) Negative NEGATIVE [facility] Nitrite, Urine Negative NEGATIVE [facility] pH, UA 8.0 5 - 8 [facility] Protein, UA Negative NEGATIVE [facility] Specific Fraser, UA 1.015 1.005 - 1.03 [facility] Turbidity UA Clear Clear [facility] Urinalysis Comments [facility] Urine Hgb 2+ Abnormal NEGATIVE [facility] Urobilinogen, Urine Normal Normal [facility] PAP ACOG PANEL 2: 21 to 29on 04-13-2022 . . Normal [facility] Comment on above: Performed By: #### 4 [id number] #### [facility] [address] [address] [address] Tsaha Whalen Age Gdln ACOG Testing Comment Normal [facility] Comment on above: Result Comment: <21 or >65 or no age provided Performed By: #### 4 [id number] #### [facility] [address] [address] [address] Tasha Whalen DIAGNOSIS: Comment Normal [facility] Comment on above: Result Comment: NEGA TIVE FOR INTRAEPITHELIAL LESION OR MALIGNANCY. Performed By: #### 4 [id number] #### [facility] [address] [place] [address] Dr. Tasha Whalen Methodology: Comment Normal [facility] Comment on above: Result Comment: This liquid based ThinPrep(R) pap test was screened with the use of an image guided system. Performed By: #### 4 [id number] #### [facility] [address] [place] [address] Dr. Tasha Whalen Note: Comment Normal [facility] Comment on above: Result Comment: The Pap smear is a screening test designed to aid in the detection of premalignant and malignant conditions of the uterine cervix. It is not a diagnostic procedure and should not be used as the sole means of detecting cervical cancer. Both false-positive and false-negative reports do occur. . Performed By: #### 4 [id number] #### [facility] [address] [place] [address] Dr. Tasha Whalen Performed by: Comment Normal [facility] Comment on above: Result Comment: Nancy Wooten Pile Driver (ASCP) Performed By: #### 4 [id number] #### [facility] [address] [place] [address] Dr. Tasha Whalen Specimen adequacy: Comment Normal [facility] Comment on above: Result Comment: Sati sfactory for evaluation. Endocervical and/or squamous metaplastic cells (endocervical component) are present. Performed By: #### 4 [id number] #### [facility] [address] [place] [address] Dr. Tasha Whalen CHLAMYDIA/GONOCOCCUS CATRINA (SW AB/URINE/PAPon 04-12-2022 Chlamydia trachomatis, CATRINA Negative Normal Negative [facility] Comment on above: Performed By: #### C T/NGNA #### [facility] [address] [place] [address] Dr. Tasha Whalen Neisseria gonorrhoeae, CATRINA Negative Normal Negative [facility] Comment on above: Performed By: #### C T/NGNA #### [facility] [address] [place] [address] Dr. Tasha Whalen VAGINITIS/VAGINOSIS DNA PROB Dell 04-11-2022 Dylan species Negative Normal Negative [facility] Comment on above: Performed By: #### V AGINT #### [facility] [address] [address] [address] Tasha Whalen Gardnerella vaginalis Negative Normal Negative [facility] Comment on above: Performed By: #### V AGINT #### [facility] [address] [address] [address] Tasha Whalen Trichomonas vaginalis Negative Normal Negative [facility] Comment on above: Performed By: #### V AGINT #### [facility] [address] [address] [address] Tasha Whalen PREG QUANT HCGon 02-15-2022 HCG QUANT <1 Normal [facility] Comment on above: Performed By: #### P REGQNT #### [facility] [address] [place] [address] Dr. Tasha Whalen HCG RANGE SEE BELOW Normal [facility] Comment on above: Result Comment: 5-50 0-1 WEEK 40-300 1-2 WEEKS 100-1,000 2-3 WEEKS 500-6,000 3-4 WEEKS 5,000-200,000 1-2 MONTHS 10,000-100,000 2-3 MONTHS 3,000-50,000 2ND TRIMESTER 1,000-50,000 3RD TRIMESTER Performed By: #### P REGQNT #### [facility] [address] [place] [address] Dr. Tasha Whalen Vital Signs Date Time Vital Sign Value Performing Clinician Hue najera 09-08-2023 11:05-0500 Body temperature 98.78 [degF] Fercho Jaime [facility] 09-08-2023 11:05-0500 Diastolic blood pressure 82 mm[Hg] Fercho Jaime [facility] 09-08-2023 11:05-0500 Heart rate 95 /min Fercho Jaime [facility] 09-08-2023 11:05-0500 Respiratory rate 16 /min Fercho Jaime [facility] 09-08-2023 11:05-0500 SaO2% (BldA) [Mass fraction] 98 % Fercho Addison [facility] 09-08-2023 11:05-0500 Systolic blood pressure 131 mm[Hg] Fercho Addison [facility] 06-05-2023 18:36-0400 Diastolic blood pressure 58 mm[Hg] Fercho Addison [facility] 06-05-2023 18:36-0400 Heart rate 90 /min Fercho Addison [facility] 06-05-2023 18:36-0400 Mean blood pressure 73 mm[Hg] Fercho Addison [facility] 06-05-2023 18:36-0400 Respiratory rate 16 /min Fercho Addison [facility] 06-05-2023 18:36-0400 SaO2% (BldA) [Mass fraction] 99 % Fercho Addison [facility] 06-05-2023 18:36-0400 Systolic blood pressure 104 mm[Hg] Fercho Addison [facility] 06-05-2023 18:23-0400 Diastolic blood pressure 52 mm[Hg] Fercho Addison [facility] 06-05-2023 18:23-0400 Heart rate 82 /min Fercho Addison [facility] 06-05-2023 18:23-0400 Mean blood pressure 66 mm[Hg] Fercho Addison [facility] 06-05-2023 18:23-0400 Respiratory rate 14 /min Fercho Addison [facility] 06-05-2023 18:23-0400 SaO2% (BldA) [Mass fraction] 98 % Fercho Jaime [facility] 06-05-2023 18:23-0400 Systolic blood pressure 94 mm[Hg] Fercho Jaime [facility] 06-05-2023 17:31-0400 Diastolic blood pressure 60 mm[Hg] Fercho Jaime [facility] 06-05-2023 17:31-0400 Heart rate 89 /min Fercho Jaime [facility] 06-05-2023 17:31-0400 Mean blood pressure 71 mm[Hg] Fercho Jaime [facility] 06-05-2023 17:31-0400 Respiratory rate 16 /min Fercho Jaime [facility] 06-05-2023 17:31-0400 SaO2% (BldA) [Mass fraction] 98 % Fercho Jaime [facility] 06-05-2023 17:31-0400 Systolic blood pressure 93 mm[Hg] Fercho Jaime [facility] 06-05-2023 15:48-0400 Body temperature 98.42 [degF] Fercho Jaime [facility] 06-05-2023 15:48-0400 Heart rate 97 /min Fercho Jaime [facility] 12-07-2022 03:06-0400 Body weight 72.1224 kg NOE HARRISON . [facility] Comment on above: Performed By: #### AFPMAT #### [facility] [address] [place] [address] Dr. Tasha Whalen 11-25-2022 22:27-0400 Hourly Rounding Shawn Littleten [facility] Comment on above: Result Comment: pt. discharged off unit, ambulatory; RN offers to assist to ER entrance; pt. denies 11-25-2022 22:20-0400 Hourly Rounding Shawn Wilson [facility] Comment on above: Result Comment: discharge papers given, education provided about belly band, follow up with primary provider in 2-3 days, and taking Tylenol for pain management as needed; questions answered; papers signed; pt. to get up and get dressed, no grimace or physical symptoms of pain noted in patient while moving 11-25-2022 22:10-0400 Hourly Rounding Shawn Wilson [facility] Comment on above: Result Comment: RN checks in on patient following medication administration; pt. verbalizes that medication helped and belly band is helping; RN answers question about UA results with patient; no physical signs of pain noted in pt. at this time, no grimace; RN to d/c pt. per physician order 11-25-2022 22:10-0400 Promise to Return Fittr [facility] 11-25-2022 21:24-0400 Promise to Return CelebCalls [facility] 11-25-2022 20:47-0400 Blood Pressure Location Fittr [facility] 11-25-2022 20:47-0400 Body temperature 98.24 [degF] Fittr [facility] 11-25-2022 20:47-0400 Diastolic blood pressure 56 mm[Hg] Fittr [facility] 11-25-2022 20:47-0400 Heart rate 74 /min Fittr [facility] 11-25-2022 20:47-0400 Mean blood pressure 73 mm[Hg] Fittr [facility] 11-25-2022 20:47-0400 Promise to Return Shawn Wilson [facility] 11-25-2022 20:47-0400 Respiratory rate 16 /min Shawn Wilson [facility] 11-25-2022 20:47-0400 Systolic blood pressure 108 mm[Hg] Shawn Wilson [facility] 11-25-2022 18:45-0400 Blood Pressure Location Shawn Wilson [facility] 11-25-2022 18:45-0400 Body temperature 97.52 [degF] Shawn Wilson [facility] 11-25-2022 18:45-0400 Diastolic blood pressure 59 mm[Hg] Shawn Wilson [facility] 11-25-2022 18:45-0400 Heart rate 79 /min Shawn Wilson [facility] 11-25-2022 18:45-0400 Mean blood pressure 76 mm[Hg] Shawn Wilson [facility] 11-25-2022 18:45-0400 Respiratory rate 18 /min Shawn Wilson [facility] 11-25-2022 18:45-0400 Systolic blood pressure 110 mm[Hg] Shawn Wilson [facility] 09-30-2022 08:59-0500 Body height 175.3 cm Morgan Falk DO Work Phone: [employer] 09-30-2022 08:59-0500 Body mass index (BMI) [Ratio] 23.63 kg/m2 Morgan Falk DO Work Phone: [facility] [employer] 09-30-2022 08:59-0500 Body temperature 98.1 [degF] Morgan Falk DO Work Phone: [facility] 09-30-2022 08:59-0500 Body weight 72.58 kg Morgan Tejal DO Work Phone: [employer] 09-30-2022 08:59-0500 Diastolic blood pressure 64 mm[Hg] Morgan Falk DO Work Phone: [facility] [employer] 09-30-2022 08:59-0500 Heart rate 78 /min Morgan Tejal DO Work Phone: [facility] [employer] 09-30-2022 08:59-0500 Respiratory rate 20 /min Morgan Falk DO Work Phone: [facility] [employer] 09-30-2022 08:59-0500 SaO2% (BldA) [Mass fraction] 98 % Morgan Falk DO Work Phone: [facility] [employer] 09-30-2022 08:59-0500 Systolic blood pressure 112 mm[Hg] Morgan Tejal DO Work Phone: [facility] [employer] 09-26-2022 13:23-0500 Body height 172.7 cm Nguyen Edmonds MD Work Phone: [employer] 09-26-2022 13:23-0500 Body mass index (BMI) [Ratio] 24.4 kg/m2 Nguyen Edmonds MD Work Phone: [employer] 09-26-2022 13:23-0500 Body temperature 98.01 [degF] Nguyen Edmonds MD Work Phone: [employer] 09-26-2022 13:23-0500 Body weight 72.8 kg Nguyen Edmonds MD Work Phone: [employer] 09-26-2022 13:23-0500 Diastolic blood pressure 69 mm[Hg] Nguyen Edmonds MD Work Phone: [employer] 09-26-2022 13:23-0500 Heart rate 82 /min Nguyen Edmonds MD Work Phone: [employer] 09-26-2022 13:23-0500 Respiratory rate 18 /min Nguyen Edmonds MD Work Phone: [employer] 09-26-2022 13:23-0500 SaO2% (BldA) [Mass fraction] 100 % Nguyen Edmonds MD Work Phone: [employer] 09-26-2022 13:23-0500 Systolic blood pressure 111 mm[Hg] Nguyen Edmonds MD Work Phone: [employer] 09-04-2022 20:05-0500 Body height 172.7 cm Lebron Guevara MD Work Phone: [employer] 09-04-2022 20:05-0500 Body mass index (BMI) [Ratio] 24.89 kg/m2 Lebron Guevara MD Work Phone: [employer] 09-04-2022 20:05-0500 Body temperature 99.9 [degF] Lebron Guevara MD Work Phone: [employer] 09-04-2022 20:05-0500 Body weight 74.25 kg Lebron Guevara MD Work Phone: [employer] 09-04-2022 20:05-0500 Diastolic blood pressure 72 mm[Hg] Lebron Guevara MD Work Phone: [employer] 09-04-2022 20:05-0500 Heart rate 74 /min Lebron Guevara MD Work Phone: [employer] 09-04-2022 20:05-0500 Respiratory rate 18 /min Lebron Guevara MD Work Phone: [employer] 09-04-2022 20:05-0500 SaO2% (BldA) [Mass fraction] 98 % Lebron Guevara MD Work Phone: [employer] 09-04-2022 20:05-0500 Systolic blood pressure 111 mm[Hg] Lebron Guevara MD Work Phone: [employer] 08-29-2022 01:32-0500 Hourly Rounding [facility] 08-29-2022 01:32-0500 Promise to Return [facility] 08-29-2022 00:48-0500 Hourly Rounding [facility] 08-29-2022 00:48-0500 Promise to Return [facility] 08-29-2022 00:17-0500 Diastolic blood pressure 51 mm[Hg] [facility] 08-29-2022 00:17-0500 Heart rate 72 /min [facility] 08-29-2022 00:17-0500 Mean blood pressure 69 mm[Hg] [facility] 08-29-2022 00:17-0500 Respiratory rate 16 /min [facility] 08-29-2022 00:17-0500 SaO2% (BldA) [Mass fraction] 99 % [facility] 08-29-2022 00:17-0500 Systolic blood pressure 105 mm[Hg] [facility] 08-28-2022 23:35-0500 Diastolic blood pressure 53 mm[Hg] [facility] 08-28-2022 23:35-0500 Heart rate 65 /min [facility] 08-28-2022 23:35-0500 Mean blood pressure 68 mm[Hg] [facility] 08-28-2022 23:35-0500 Respiratory rate 18 /min [facility] 08-28-2022 23:35-0500 SaO2% (BldA) [Mass fraction] 100 % [facility] 08-28-2022 23:35-0500 Systolic blood pressure 97 mm[Hg] [facility] 08-28-2022 23:30-0500 Hourly Rounding [facility] 08-28-2022 23:30-0500 Promise to Return [facility] 08-28-2022 22:45-0500 Diastolic blood pressure 55 mm[Hg] [facility] 08-28-2022 22:45-0500 Heart rate 62 /min [facility] 08-28-2022 22:45-0500 Mean blood pressure 69 mm[Hg] [facility] 08-28-2022 22:45-0500 Respiratory rate 20 /min [facility] 08-28-2022 22:45-0500 SaO2% (BldA) [Mass fraction] 93 % [facility] 08-28-2022 22:45-0500 Systolic blood pressure 98 mm[Hg] [facility] 08-28-2022 21:31-0500 Body temperature 97.88 [degF] [facility] 08-28-2022 21:31-0500 Heart rate 78 /min [facility] 08-26-2022 11:02-0500 Body temperature 98.6 [degF] Kei Moore [facility] 08-26-2022 11:02-0500 Diastolic blood pressure 70 mm[Hg] Kei Peraltae [facility] 08-26-2022 11:02-0500 Heart rate 66 /min Kei Peraltae [facility] 08-26-2022 11:02-0500 Respiratory rate 16 /min Kei Peraltae [facility] 08-26-2022 11:02-0500 SaO2% (BldA) [Mass fraction] 96 % Kei Peraltae [facility] 08-26-2022 11:02-0500 Systolic blood pressure 115 mm[Hg] Kei Peraltae [facility] 08-24-2022 01:01-0500 Body height 172.7 cm Andrea Mitchell MD Work Phone: [facility] [employer] 08-24-2022 01:01-0500 Body mass index (BMI) [Ratio] 25.51 kg/m2 Andrea Mitchell MD Work Phone: [facility] 08-24-2022 01:01-0500 Body temperature 98.1 [degF] Andrea Mitchell MD Work Phone: [facility] 08-24-2022 01:01-0500 Body weight 76.11 kg Andrea Mitchell MD Work Phone: [facility] [employer] 08-24-2022 01:01-0500 Diastolic blood pressure 74 mm[Hg] Andrea Mitchell MD Work Phone: [facility] 08-24-2022 01:01-0500 Heart rate 82 /min Andrea Mitchell MD Work Phone: [facility] 08-24-2022 01:01-0500 Respiratory rate 18 /min Andrea Mitchell MD Work Phone: [facility] 08-24-2022 01:01-0500 SaO2% (BldA) [Mass fraction] 99 % Andrea Mitchell MD Work Phone: [facility] [employer] 08-24-2022 01:01-0500 Systolic blood pressure 119 mm[Hg] Andrea Mitchell MD Work Phone: [facility] 08-10-2022 00:13-0500 Body mass index (BMI) [Ratio] 25.7 kg/m2 Lebron Guevara MD Work Phone: [facility] 08-10-2022 00:13-0500 Body temperature 97.59 [degF] Lebron Guevara MD Work Phone: [facility] [employer] 08-10-2022 00:13-0500 Body weight 76.66 kg Lebron Guevara MD Work Phone: [facility] [employer] 08-10-2022 00:13-0500 Diastolic blood pressure 70 mm[Hg] Lebron Guevara MD Work Phone: [facility] [employer] 08-10-2022 00:13-0500 Heart rate 97 /min Lebron Guevara MD Work Phone: [facility] [employer] 08-10-2022 00:13-0500 Respiratory rate 16 /min Lebron Guevara MD Work Phone: [facility] [employer] 08-10-2022 00:13-0500 SaO2% (BldA) [Mass fraction] 98 % Lebron Guevara MD Work Phone: [facility] [employer] 08-10-2022 00:13-0500 Systolic blood pressure 123 mm[Hg] Lebron Guevara MD Work Phone: [facility] [employer] 08-06-2022 01:39-0500 Body height 172.7 cm Morgan Falk DO Work Phone: [facility] [employer] 08-06-2022 01:39-0500 Body mass index (BMI) [Ratio] 25.39 kg/m2 Morgan Falk DO Work Phone: [facility] [employer] 08-06-2022 01:39-0500 Body temperature 97.81 [degF] Morgan Falk DO Work Phone: [facility] [employer] 08-06-2022 01:39-0500 Body weight 75.75 kg Morgan Falk DO Work Phone: [facility] [employer] 08-06-2022 01:39-0500 Diastolic blood pressure 63 mm[Hg] Morgan Falk DO Work Phone: [facility] [employer] 08-06-2022 01:39-0500 Heart rate 95 /min Morgan Falk DO Work Phone: [facility] [employer] 08-06-2022 01:39-0500 Respiratory rate 18 /min Morgan Tejal DO Work Phone: [facility] 08-06-2022 01:39-0500 SaO2% (BldA) [Mass fraction] 98 % Morgan Falk DO Work Phone: [facility] 08-06-2022 01:39-0500 Systolic blood pressure 116 mm[Hg] Morgan Falk DO Work Phone: [facility] 07-12-2022 05:06-0500 Heart rate 86 /min Kaylinn Dokken [facility] 07-12-2022 05:06-0500 Respiratory rate 11 /min Kaylinn Dokken [facility] 07-12-2022 05:06-0500 SaO2% (BldA) [Mass fraction] 97 % Kaylinn Dokken [facility] 07-12-2022 03:38-0500 Body temperature 97.52 [degF] Kaylinn Dokken [facility] 07-12-2022 03:38-0500 Diastolic blood pressure 64 mm[Hg] Kaylinn Dokken [facility] 07-12-2022 03:38-0500 Heart rate 94 /min Kaylinn Dokken [facility] 07-12-2022 03:38-0500 Respiratory rate 20 /min Kaylinn Dokken [facility] 07-12-2022 03:38-0500 SaO2% (BldA) [Mass fraction] 98 % Kaylinn Dokken [facility] 07-12-2022 03:38-0500 Systolic blood pressure 125 mm[Hg] Kaylinn Dokken [facility] 07-01-2022 14:43-0500 Diastolic blood pressure 67 mm[Hg] Alejandra Winkler MD Work Phone: [employer] 07-01-2022 14:43-0500 Systolic blood pressure 103 mm[Hg] Alejandra Winkler MD Work Phone: [facility] 07-01-2022 14:19-0500 Body height 172.7 cm Alejandra Winkler MD Work Phone: [facility] 07-01-2022 14:19-0500 Body mass index (BMI) [Ratio] 24.63 kg/m2 Alejandra Winkler MD Work Phone: [facility] 07-01-2022 14:19-0500 Body temperature 97.3 [degF] Alejandra Winkler MD Work Phone: [facility] 07-01-2022 14:19-0500 Body weight 73.48 kg Alejandra Winkler MD Work Phone: [facility] 07-01-2022 14:19-0500 Heart rate 82 /min Alejandra Winkler MD Work Phone: [facility] 07-01-2022 14:19-0500 Respiratory rate 16 /min Alejandra Winkler MD Work Phone: [facility] 07-01-2022 14:19-0500 SaO2% (BldA) [Mass fraction] 99 % Alejandra Winkler MD Work Phone: [facility] 04-18-2022 15:20-0400 Body mass index (BMI) [Ratio] 27.06 kg/m2 Lebron Guevara MD Work Phone: [facility] 04-18-2022 15:20-0400 Body temperature 98.2 [degF] Lebron Guevara MD Work Phone: [employer] 04-18-2022 15:20-0400 Body weight 78.38 kg Lebron Guevara MD Work Phone: [facility] 04-18-2022 15:20-0400 Diastolic blood pressure 75 mm[Hg] Lebron Guevara MD Work Phone: [employer] 04-18-2022 15:20-0400 Heart rate 76 /min Lebron Guevara MD Work Phone: [facility] [employer] 04-18-2022 15:20-0400 Respiratory rate 16 /min Lebron Guevara MD Work Phone: [facility] [employer] 04-18-2022 15:20-0400 SaO2% (BldA) [Mass fraction] 98 % Lebron Guevara MD Work Phone: [facility] 04-18-2022 15:20-0400 Systolic blood pressure 119 mm[Hg] Lebron Guevara MD Work Phone: [facility] 02-27-2022 15:55-0400 Body height 170.2 cm Josemanuel Ibarra MD Work Phone: [facility] 02-27-2022 15:55-0400 Body mass index (BMI) [Ratio] 28.61 kg/m2 Josemanuel Ibarra MD Work Phone: [facility] 02-27-2022 15:55-0400 Body weight 82.87 kg Josemanuel Ibarra MD Work Phone: [facility] 02-27-2022 15:50-0400 Body temperature 98.1 [degF] Josemanuel Ibarra MD Work Phone: [facility] 02-27-2022 15:50-0400 Diastolic blood pressure 76 mm[Hg] Josemanuel Ibarra MD Work Phone: [facility] 02-27-2022 15:50-0400 Heart rate 71 /min Josemanuel Ibarra MD Work Phone: [facility] 02-27-2022 15:50-0400 Respiratory rate 18 /min Josemanuel Ibarra MD Work Phone: [facility] 02-27-2022 15:50-0400 SaO2% (BldA) [Mass fraction] 98 % Josemanuel Ibarra MD Work Phone: [facility] 02-27-2022 15:50-0400 Systolic blood pressure 135 mm[Hg] Josemanuel Ibarra MD Work Phone: [facility] 02-08-2022 19:11-0400 Body height 170.2 cm Josemanuel Ibarra MD Work Phone: [facility] 02-08-2022 19:11-0400 Body mass index (BMI) [Ratio] 28.93 kg/m2 Josemanuel Ibarra MD Work Phone: [facility] 02-08-2022 19:11-0400 Body temperature 98.6 [degF] Josemanuel Ibarra MD Work Phone: [facility] 02-08-2022 19:11-0400 Body weight 83.78 kg Josemanuel Ibarra MD Work Phone: [facility] 02-08-2022 19:11-0400 Diastolic blood pressure 76 mm[Hg] Josemanuel Ibarra MD Work Phone: [facility] 02-08-2022 19:11-0400 Heart rate 85 /min Josemanuel Ibarra MD Work Phone: [facility] 02-08-2022 19:11-0400 Respiratory rate 18 /min Josemanuel Ibarra MD Work Phone: [facility] 02-08-2022 19:11-0400 SaO2% (BldA) [Mass fraction] 99 % Josemanuel Ibarra MD Work Phone: [facility] 02-08-2022 19:11-0400 Systolic blood pressure 124 mm[Hg] Josemanuel Ibarra MD Work Phone: [employer] Encounters Encounter Date Encounter Type Care Provider Facility Start: 12-14-2023 End: 12-14-2023 Emergency department patient visit [facility] Start: 11-14-2023 End: 11-14-2023 ambulatory Julius Jeffersono Facility:[facility] Start: 11-14-2023 End: 11-14-2023 ambulatory Julius Keira Work Phone: [facility] Work Phone: Start: 11-14-2023 End: 11-14-2023 Departed Referred Julius Keira Work Phone: [facility] Start: 11-13-2023 End: 11-13-2023 Emergency department patient visit [facility] Start: 11-13-2023 End: 11-13-2023 ambulatory JULIUS KEIRA Not Available Start: 10-16-2023 End: 10-16-2023 ambulatory JULIUS KEIRA Not Available Start: 09-08-2023 End: 09-08-2023 Emergency department patient visit Fercho Jaime [facility] Start: 06-05-2023 End: 06-05-2023 Emergency department patient visit Fercoh Jaime Facility:[facility] Start: 06-05-2023 End: 06-05-2023 Emergency department patient visit Fercho Jaime [facility] Start: 04-05-2023 End: 04-05-2023 Emergency department patient visit [facility] Start: 03-23-2023 End: 03-24-2023 Emergency department patient visit [facility] Start: 01-03-2023 End: 01-04-2023 ambulatory NOE Burnham [facility] Start: 12-05-2022 End: 12-06-[address] JULIUS CORCKETT . Facility: Start: 12-05-2022 End: 12-06-2022 ambulatory NOE HARRISON . Facility: Start: 11-26-2022 End: 12-23-2022 Pre-admission assessment Shawn Wilson [facility] Start: 11-25-2022 End: 11-26-2022 ambulatory Shawn Wilson Facility:[facility] Start: 11-25-2022 End: 11-25-2022 OB Triage Shawn Wilson [facility] Start: 11-07-2022 End: 11-07-[address] JULIUS CROCKETT . Facility: Start: 11-07-2022 End: 11-07-2022 ambulatory NOE HARRISON . Facility: Start: 10-04-2022 End: 10-05-[address] JULIUS CROCKETT . Facility: Start: 10-04-2022 End: 10-05-[address] AMBROSE URBANO . Facility: Start: 09-30-2022 End: 09-30-2022 Emergency department patient visit Morgan Falk DO Work Phone: [facility] Comment on above: Nausea and vomiting during (Primary Dx) Start: 09-26-2022 End: 09-26-2022 Emergency department patient visit Nguyen Edmonds MD Work Phone: [facility] Comment on above: Cellulitis of right upper extremity (Primary Dx) Start: 09-20-2022 End: 09-21-2022 ambulatory ALFRED BERGERON Facility: Start: 09-08-2022 End: 09-08-2022 Emergency department patient visit DO Sissy Shah Facility:[facility] Start: 09-04-2022 End: 09-04-2022 Emergency department patient visit Lebron Guevara MD Work Phone: [facility] Comment on above: Vomiting of pregnanc y, antepartum (Primary Dx); Dehydration during Start: 09-02-2022 End: 09-02-2022 Emergency department patient visit Coleman Ludwig Facility:[facility] Start: 08-28-2022 End: 08-29-2022 Emergency department patient visit Alfredito Brennan Facility:[facility] Start: 08-28-2022 End: 08-29-2022 Emergency department patient visit Alfredito Brennan [facility] Start: 08-26-2022 End: 08-26-2022 Emergency department patient visit Kei Moore Facility:[facility] Start: 08-26-2022 End: 08-26-2022 Emergency department patient visit Kei Moore [facility] Start: 08-24-2022 End: 08-24-2022 Emergency department patient visit Andrea Mitchell MD Work Phone: [facility] Comment on above: Hyperemesis gravidar um (Primary Dx); Dehydration Start: 08-10-2022 End: 08-10-2022 Emergency department patient visit Lebron Guevara MD Work Phone: [facility] Comment on above: Abdominal pain durin g in first trimester (Primary Dx); Nausea and vomiting during Start: 08-06-2022 End: 08-06-2022 Emergency department patient visit Morgan Falk DO Work Phone: [facility] Comment on above: Morning sickness (Pr imary Dx) Start: 07-12-2022 End: 07-12-2022 Emergency department patient visit DO Sissy Shah Facility:[facility] Start: 07-12-2022 End: 07-12-2022 Emergency department patient visit Sissy Shah [facility] Start: 07-01-2022 End: 07-01-2022 Emergency department patient visit Alejandra Winkler MD Work Phone: [facility] Comment on above: Pain, dental (Primar y Dx); History of tooth extraction, unspecified edentulism class Start: 04-18-2022 End: 04-18-2022 Emergency department patient visit Lebron Guevara MD Work Phone: [facility] Comment on above: Abdominal cramping ( Primary Dx); Negative test Start: 04-09-2022 End: 04-09-2022 ambulatory LAURA GONZALEZ Facility:[facility] Start: 02-27-2022 End: 02-27-2022 Emergency department patient visit Josemanuel Ibarra MD Work Phone: [facility] Comment on above: Pain, dental (Primar y Dx) Start: 02-15-2022 End: 02-16-[address] AMBROSE URBANO . Facility:[facility] Start: 02-08-2022 End: 02-08-2022 Emergency department patient visit Josemanuel Ibarra MD Work Phone: [facility] Comment on above: Non-intractable vomi ting with nausea, unspecified vomiting type (Primary Dx) Start: 06-02-2017 End: 06-02-2017 Emergency department patient visit NOE Bhargavi [facility] Procedures Date Procedure Procedure Detail Performing Clinician Start: 09-04-2022 Drug tst prsmv instr mnt chem analyzers pr date Lebron Guevara MD Work Phone: Start: 09-04-2022 Urnls dip stick/tabl et rgnt auto w/o microscopy Lebron Guevara MD Work Phone: Start: 09-04-2022 Comprehensive metabo lic panel Lebron Guevara MD Work Phone: Start: 08-24-2022 Urnls dip stick/tabl et rgnt auto w/o microscopy Andrea Mitchell MD Work Phone: Start: 08-24-2022 End: 08-24-2022 Comprehensive metabolic panel Andrea Mitchell MD Work Phone: Start: 08-10-2022 Comprehensive metabo lic panel Lebron Guevara MD Work Phone: Start: 08-10-2022 Urnls dip stick/tabl et rgnt auto w/o microscopy Lebron Guevara MD Work Phone: Start: 04-18-2022 Urinalysis microscop ic only Lebron Guevara MD Work Phone: Start: 04-18-2022 Urnls dip stick/tabl et rgnt auto w/o microscopy Lebron Guevara MD Work Phone: Start: 04-18-2022 Comprehensive metabo lic panel Lebron Guevara MD Work Phone: Plan of Treatment Date Care Activity Detail Author Start: 03-18-2024 DTaP/Tdap/Td vaccine (6 - Td or Tdap) DTaP/Tdap/Td vaccine (6 - Td or Tdap) [facility] Start: 08-12-2022 End: 08-10-2023 hCG, Quantitative, hCG, Quantitative, Lab Routine Abdominal pain during in first trimester Expected: 08/12/2022, Expires: 08/10/2023 [facility] Work Phone: Comment on above: Expected: 08/12/2022 , Expires: 08/10/2023 Start: 2022 Screening for malign ant neoplasm of cervix Pap smear [facility] Start: 04-25-2022 Influenza vaccination B [facility] [employer] Start: 03-25-2022 Influenza vaccination Flu vaccine (# 1) [facility] Start: 2019 Hepatitis C screening Hepatitis C sc reen [facility] Start: 2017 Screening for Chlamy brian trachomatis [facility] Start: 2016 HIV screening HIV screen [facility] Start: 2013 Depression Screen Depression Screen [facility] Start: 2006 COVID-19 Vaccine (1) COVID-19 Vaccin e (1) [facility] Start: 01-06-2002 COVID-19 Vaccine (#1) COVID-19 Vacci ne (#1) [facility] End: 08-10-2022 US OB TRANSVAGINAL US OB TRANSVAGINAL Imaging STAT Once for 1 Occurrences starting 08/10/2022 until 08/10/2022 [employer] Phone: Comment on above: Once for 1 Occurrenc es starting 08/10/2022 until 08/10/2022 US OB TRANSVAGINAL US OB TRANSVA GINAL Imaging STAT 08/10/2022 1:21 AM EST [employer] Phone: Payers Date Payer Category Payer Unknown [id number] 2.16.84 [id number] 2001 Unknown [id number] 2.16.84 [id number] 2001 Unknown [id number] 2.16.84 [id number] 2001 Unknown [id number] 2.16.84 0.1.807482.3.579.2.593 2001 Unknown [id number] 2.16.84 0.1.915789.3.579.2.593 2001 Unknown [id number] 2.16.84 0.1.496588.3.579.2.593 2001 Unknown [id number] 2.16.84 0.1.557215.3.579.2.593 2001 Unknown [id number] 2.16.84 0.1.451085.3.579.2.593 2001 Unknown [id number] 2.16.84 0.1.011247.3.579.2.593 2001 Unknown [id number] 2.16.84 0.1.576950.3.579.2.593 2001 Unknown [id number] 2.16.8 40.1.828545.3.579.2.727 2001 Unknown [id number] 2.16.8 40.1.433410.3.579.2.727 2001 Unknown [id number] 2.16.8 40.1.649208.3.579.2.727 2001 Unknown [id number] 2.16.8 40.1.996504.3.579.2.727 2001 Unknown [id number] 2.16.8 40.1.521011.3.579.2.727 2001 Unknown [id number] 2.16.8 40.1.197995.3.579.2.727 2001 Unknown [id number] 2.16.8 40.1.747944.3.579.2.727 2001 Unknown [id number] 2.16.84 0.1.586551.3.579.2.1259 2001 Unknown [id number] 2.16.84 0.1.707516.3.579.2.1259 2001 Unknown [id number] 2.16.8 40.1.911458.3.579.2.173 2001 Unknown [id number] 2.16.8 40.1.187106.3.579.2.173 2001 Unknown [id number] 2.16.8 40.1.693723.3.579.2.174 2001 Unknown [id number] 2.16.8 40.1.831597.3.579.2.174 2001 Unknown [id number] 2.16.8 40.1.611663.3.579.2.174 1959 Self-pay 1959 Unknown [id number] 1. [id number] Unknown [id number] 2.16.84 0.1.199489.3.579.2.593 Social History Date Type Detail Facility Start: 06-02-2017 End: 07-01-2022 Tobacco smoking status WYIS Never smoked tobacco [employer] Phone: Start: 06-02-2017 End: 07-01-2022 Tobacco use and exposure Smokeless tobacco non-user [employer] Phone: Start: 02-08-2022 End: 09-30-2022 Alcohol intake Current non-drinker of alcohol (finding) [employer] Phone: Start: 02-08-2022 End: 09-30-2022 History SDOH Alcohol Frequency 1 [employer] Phone: Start: 2001 Sex Assigned At Not on file B [facility] [employer] Phone: Start: 01-29-2022 End: 09-30-2022 Exposure to SARS-CoV-2 (event) Not sure [employer] Phone: Start: 07-01-2022 End: 09-30-2022 History SDOH Alcohol Std Drinks 0 [employer] Phone: Tobacco Household tobacc o concerns: Yes. [facility] Comment on above: denies Tobacco smoking status No Smokin g Status Entered [facility] Sex Assigned At Female [facility] Start: 07-25-2022 [facility] [employer] Phone: Start: 09-08-2023 Tobacco smoking status Ex-smoker (fi nding) [facility] Comment on above: hx of smoking quit i n 2021 Start: 2001 Sex Assigned At Female F [facility] Functional Status Date Assessment Result Facility 09-08-2023 Functional Status N/A [facility] 06-05-2023 Functional Status N/A [facility] 11-25-2022 Functional Status N/A [facility] 08-28-2022 Functional Status N/A [facility] 08-26-2022 Functional Status N/A [facility] 07-12-2022 Functional Status Yes [facility] Clinical Notes 07-12-2022 to 09-08-2023 Note Date & Type Note Facility 09-08-2023 Evaluation + Plan note Extrac charito from: Title:ED Note Author:[place] PA-C te:09/08/23 Bronchitis (J40: Bronchitis, not specified as acute or chronic) Orders: brompheniramine/dextromethorphan/PSE, 10 mL, Oral, QID for cough and congestion for 7 day(s), 280 mL, Refill(s) 0, [employer] [facility]16, 175, cm, 09/08/23 11:11:00 EST, Height/Length Dosing, 79.5, kg, 09/08/23 11:11:00 EST, Weight Dosing XR Chest 2 Views [facility]01-15-2024 Hospital Discharge instructions Patient Education 09/08/2023 11:44:21 [...] condition. Follow these instructions at home: Take qqyh-pxo-yaqxgpw and prescription medicines only as told by [...] and water are not available, use hand correctional agency director. Avoid contact with people who have cold [...] it is easier to cough up. Take wfbc-qut-slndqwi and prescription medicines only as told by [...] provider. Document Revised: 11/21/2022 Document Reviewed: 12/12/2021 [employer] Patient Education 2022 [employer]. Follow Up Care 09/08/2023 11:03:42 With:Ambrose Urbano Address: [address] [place], [place] [id number]- [facility] (1) When:09/11/2023 11:37:37 [facility]10-12-2023 Hospital Discharge instructions Patient Education 06/05/2023 18:18:00 [...] help with your condition: Managing pain Take wmho-wzw-cetlgcq and prescription medicines only as told by [...] provider. Document Revised: 01/09/2022 Document Reviewed: 01/09/2022 [employer] Patient Education 2022 [employer]. Follow Up Care 06/05/2023 15:22:25 With:Ambroes Urbano Address: [address] [place] [address]- Business (1) When:06/08/2023 18:17:47 Comments:Call the [...] you develop any new or worsening symptoms. [facility]10-12-2023 Evaluation + Plan noteExtracted from: Title:ED Note [...] eGFR Influenza A&B Ag Rapid COVID Antigen ([facility]) U Beta Hcg Qual [facility]04-04-2023 NoteThe following Patient Education Materials have been given to the patient: [facility] Discharge instructions Patient Education 11/25/2022 22:14:49 [...] or until the pain goes away. Take fuef-aac-jdayaly and prescription medicines only as told by [...] 05/20/2009 Document Revised: 01/27/2019 Document Reviewed: 01/27/2019 [employer] Patient Education 2020 [employer]. 11/25/2022 22:14:49 Morning Sickness, Jcuo-gd-Zcee Morning Sickness Morning sickness is when you [...] Follow these instructions at home: Medicines Take alzv-dsv-mkjwcgp and prescription medicines only as told by [...] 09/18/2005 Document Revised: 07/24/2018 Document Reviewed: 09/11/2017 [employer] Patient Education 2020 [employer]. 11/25/2022 22:14:49 Second Trimester of , Hecb-hg-Vghm Second Trimester of The second trimester is [...] Follow these instructions at home: Medicines Take yxeh-yfs-ocrsvsz and prescription medicines only as told by [...] 11/05/2010 Document Revised: 12/03/2019 Document Reviewed: 09/16/2017 [employer] Patient Education 2020 [employer] 11/25/2022 22:14:49 Abdominal Pain During , Iena-gt-Iowu Abdominal Pain During Belly (abdominal) pain is [...] keep your pee (urine) pale yellow. Take ywaz-uqa-ygmpnnv and prescription medicines only as told by [...] 07/30/2010 Document Revised: 11/29/2019 Document Reviewed: 11/13/2017 [employer] Patient Education 2020 [employer]. Follow Up Care 11/25/2022 18:22:07 With:Your doctor in [place] [phone] Address:Unknown When:11/28/2022 21:41:43 Comments:Call for any problems.Call [...] work. May take Tylenol for pain relief. [facility]02-06-2023 Hospital Discharge instructions* Discharge Instructions* Morgan Falk DO - 09/30/2022 9:10 AM EST Zofran as needed for nausea. Follow-up with OB next week as scheduled. Return to ER for worsening symptoms including intractable vomiting or abdominal pain or fevers or chills or any vaginal bleeding. * Attachments The following attachments cannot be sent through Care Everywhere. * : Hyperemesis Gravidarum (Ukrainian) [facility]: [phone]) 134-143901-11-2023 Hospital Discharge instructions* Attachments The following attachments cannot be sent through Care Everywhere. * : Morning Sickness (Ukrainian) * Oral Rehydration (Ukrainian) [facility] Phone: [phone] 193-943801-05-2023 Evaluation + Plan noteExtracted from: Title:ED Note [...] UA With Cult Reflex US 1st Trimester [facility]01-05-2023 Hospital Discharge instructions Patient Education 08/29/2022 01:49:40 [...] water added (diluted fruit juice). Eat bland, ifne-ip-qcwnjz foods in small amounts as you are able. These foods include bananas, applesauce, rice, lean meats, toast, and crackers. Avoid drinking fluids that contain a lot of sugar or caffeine, such as energy drinks, sports drinks, and soda. Avoid alcohol. Avoid spicy or fatty foods. General instructions Take iwjc-znz-tjdnkpv and prescription medicines only as told by your health care provider. Rest at home while you recover. Drink enough fluid to keep your urine pale yellow. Breathe slowly and deeply when you feel nauseous. Avoid smelling things that have strong odors. Wash your hands often using soap and water. If soap and water are not available, use hand correctional agency director. Make sure that all people in your [...] recommendations for eating and drinking and take cktu-neo-turnsrj and prescription medicinesonly as told by your [...] 09/18/2005 Document Revised: 01/19/2019 Document Reviewed: 01/19/2019 [employer] Patient Education 2020 [employer]. 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 Avoid heavy [...] disease or chickenpox. You are exposed to [place] measles (rubella) and have never had it. [...] 08/05/2002 Document Revised: 07/24/2018 Document Reviewed: 07/23/2017 [employer] Patient Education 2020 [employer]. 08/29/2022 01:49:40 Abdominal Pain During Abdominal Pain [...] to keep your urine pale yellow. Take qiju-xmp-qsojlyz and prescription medicines only as told by [...] 08/11/2006 Document Revised: 11/29/2019 Document Reviewed: 11/13/2017 [employer] Patient Education 2020 [employer]. Follow Up Care 08/28/2022 21:30:23 With:Julius CROCKETT Address: [address] , [place] [address]- Business (1) When:09/01/2022 Comments:Return to the emergency room if your pain gets worse, general bleeding, vomiting or any new symptoms With:Ambrose Urbano Address: [address] [place] [address] [place] [address]- Business (1) When:Within 3 Day(s) [facility]01-02-2023 Evaluation + Plan noteExtracted from: Title:ED Note [...] Tube Lipase Level UA With Cult Reflex [facility]01-02-2023 Hospital Discharge instructions Follow Up Care 08/26/2022 11:00:10 With:Julius CROCKETT Address: [address] , [place] [address]- Business (1) When:08/29/2022 12:48:07 With:Ambrose Urbano Address: [address] [place] [address] [place] [address]- Business (1) When:Within 3 Day(s) [facility]12-31-2022 History of Present illness Narrative* Shantanu Jameson RN - 08/24/2022 2:15 AM EST Patient resting with eyes closed [facility] Phone: [phone] 107-492812-17-2022 Hospital Discharge instructions* Discharge Instructions* Lebron Guevara MD - 08/10/2022 2:09 AM EST By Last Menstrual of 07/12, I calculated your due date as 04/18/2023 4 weeks 1 day as of 08/10/2022 * Attachments The following attachments cannot be sent through Care Everywhere. * : Abdominal Pain (Ukrainian) * : Morning Sickness (Ukrainian) [facility]: 1(422) 868-631612-13-2022 Hospital Discharge instructions* Discharge Instructions* Morgan Falk DO - 08/06/2022 1:40 AM EST Take yfxi-xcp-wqaejhk Prilosec as needed for heartburn symptoms. Call to establish care. Return to ER for worsening symptoms. * Attachments The following attachments cannot be sent through Care Everywhere. * : Morning Sickness (Ukrainian) [facility] Phone: 1(746) 921-996912-12-2022 Evaluation note* Diagnosis Morning sickness- Primary Mild hyperemesis gravidarum, unspecified as to episode of care documented in this encounter [facility] [employer] Phone: 1(172) 702-356911-18-2022 Evaluation + Plan noteExtracted from: Title:ED Note [...] With Cult Reflex XR Chest Single View [facility]11-18-2022 Hospital Discharge instructions Patient Education 07/12/2022 05:07:15 Abdominal Pain, Adult, Kkkt-ke-Ytnd Abdominal Pain, Adult Many things can cause belly (abdominal) pain. Most times, belly pain is not dangerous. Many cases of belly pain can be watched and treated at home. Sometimes, though, belly pain is serious. Your doctor will try to find the cause of your belly pain. Follow these instructions at home: Medicines Take ieng-fgu-omzuocg and prescription medicines only as told by [...] your belly pain for any changes. Take cbum-kki-xuikwrq and prescription medicines only as told by [...] 01/27/2009 Document Revised: 12/20/2019 Document Reviewed: 12/20/2019 [employer] Patient Education 2020 [employer]. Follow Up Care 07/12/2022 03:38:09 With:Ambrose Urbano Address: [address] [place], [place] [id number]- Business (1) When:07/15/2022 Comments:Take the Pepcid once [...] theED for any new or worsening symptoms. [facility] Diagnosis Non-intractable vomiting with nausea, unspecified vomiting type- Primary documented in this encounter [employer] Phone: evaluation note* Diagnosis Pain, dental- Primary Unspecified disorder of the teeth and supporting structures documented in this encounter [employer] Phone: evaluation note* Diagnosis Abdominal cramping- Primary Abdominal pain, unspecified site Negative test examination or test, negative result documented in this encounter [employer] Phone: evaluation note* Diagnosis Pain, dental- Primary Unspecified disorder of the teeth and supporting structures History of tooth extraction, unspecified edentulism class documented in this encounter [employer] Phone: evaluation note* Diagnosis Abdominal pain during in first trimester- Primary Nausea and vomiting during documented in this encounter [employer] Phone: evaluation note* Diagnosis Hyperemesis gravidarum- Primary Mild hyperemesis gravidarum, unspecified as to episode of care Dehydration documented in this encounter [employer] Phone: evaluation note* Diagnosis Vomiting of , antepartum- Primary Unspecified vomiting of , antepartum Dehydration during documented in this encounter [employer] Phone: evaluation note* Diagnosis Cellulitis of right upper extremity- Primary Cellulitis and abscess of upper arm and forearm documented in this encounter [employer] Phone: evaluation note* Diagnosis Nausea and vomiting during - Primary documented in this encounter [employer] Phone: evaluation noteNo assessment information available [facility] Work Phone: Hospital course Narrative No data available for this section [facility]* Attachments The following attachments cannot be sent through Care Everywhere. * Nausea and Vomiting (Ukrainian) [facility] Phone: Hospital Discharge instructions* Attachments The following attachments cannot be sent through Care Everywhere. * Tooth and Gum Pain (Ukrainian) [facility] Phone: Hospital Discharge instructions* Attachments The following attachments cannot be sent through Care Everywhere. * Abdominal Pain (Ukrainian) [facility] Phone: Hospital Discharge instructions* Attachments The following attachments cannot be sent through Care Everywhere. * [place] Tooth Extraction: Post-op (Ukrainian) [facility] Phone: Hospital Discharge instructions* Attachments The following attachments cannot be sent through Care Everywhere. * Oral Rehydration (Ukrainian) [facility] Phone: Hospital Discharge instructions* Attachments The following attachments cannot be sent through Care Everywhere. * Cellulitis (Ukrainian) [facility] Phone: Hospital Discharge instructions No data available for this section [facility] No data available for this section [facility] Summary Purpose Family History No Family History Records FoundNo Family History Records Found No data available for this section No Family History Records Found No data available for this section No Family History Records FoundNo Family History Records FoundNo Family History Records FoundNo Family History Records Found Advance Directives No Advanced Directives Records FoundDocuments on File Type Date Recorded Patient Shop Technician Expl anation ACP-Advance Directive ACP-Power of Support Architect Additional Source Comments INFORMATION SOURCE (unrecogn ized section and content) DATE CREATED AUTHOR 02/17/2018 [facility] DATE CREATED AUTHOR AUTHOR'S ORGANIZ ATION 12/09/2022 [facility] DATE CREATED AUTHOR AUTHOR'S ORGANIZ ATION 06/07/2023 [facility] DATE CREATED AUTHOR AUTHOR'S ORGANIZ ATION 11/14/2023 [facility] DATE CREATED AUTHOR AUTHOR'S ORGANIZ ATION 11/15/2023 Joyce coats DATE CREATED AUTHOR AUTHOR'S ORGANIZ ATION 11/20/2023 [facility] DATE CREATED AUTHOR AUTHOR'S ORGANIZ ATION 12/16/2023 Joyce carrion Reason for Visit (unrecogniz ed section and content) Reason Comments Nausea Started today with amena frances then became nausous and threw up [...] she took 2 positive tests from the [employer] store but she wanted to come to the hospital to get it checked. 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 Morning Sickness Nausea with no vomit ing, [...] ONCE, 1 dose, On Fri02/08/22 at 1930 1940 (Given - Provid er: Mery Jaime RN) Scheduled Medication Order 02/25/2022 02/26/2022 02/27/2022 benzocaine (ORAJEL) 20 % mucosal gel (COMPLETED) Mouth/Throat, ONCE, On Fri02/27/22 at 1615, For 1 dose 162 (Given - Provid er: Clover Dorsey [...] (New Bag - Prov ider: Majo Haskins RN)213 (Stopped - Provider: Majo Haskins, RN) ondansetron (ZOFRAN) injection 4 mg (COMPLETED) 4 mg, IntraVENous, ONCE, 1 dose, On Fri09/04/22 at 2045 2050 (Given - Provid er: Majo Haskins RN) Scheduled Medication Order 09/28/2022 09/29/2022 09/30/2022 ondansetron (ZOFRAN-ODT) disintegrating tablet 4 mg (COMPLETED) 4 mg, Oral, ONCE, 1 dose, On Fri09/30/22 at 0915 0932 (Given - Provid er: Clover Dorsey RN) Care Teams (unrecognized sec tion and content) Supervisor Hardboard Relationship Specialty Start Date End Date Ambrose Urbano MD [address] [phone] PCP - General Family Medicine 02/08/22 Supervisor Hardboard Relationship Specialty Start Date End Date Ambrose Urbano MD [address] [phone] PCP - General Family Medicine 02/08/22 Supervisor Hardboard Relationship Specialty Start Date End Date Ambrose Urbano MD [address] [phone] PCP - General Family Medicine 02/08/22 Supervisor Hardboard Relationship Specialty Start Date End Date Ambrose Urbano MD [address] [id number] PCP - General Family Medicine 02/08/22 Supervisor Hardboard Relationship Specialty Start Date End Date Ambrose Urbano MD [address] [phone] PCP - General Family Medicine 02/08/22 Supervisor Hardboard Relationship Specialty Start Date End Date Ambrose Urbano MD [address] [phone] PCP - General Family Medicine 02/08/22 Supervisor Hardboard Relationship Specialty Start Date End Date Ambrose Urbano MD [address] [place] [address] PCP - General Family Medicine 02/08/22 Team Status: Inactive Member Role Status Dates Julius Crockett Attending Provider Active Start: [facility] 2023 End: November 14, 2023 Goals (unrecognized section and content) Goals may be documented in a n alternate section FOR RECORDS PERTAINING TO PATIENTS WHO ARE [...] BE BASED ON THE PRIMARY CLINICAL RECORDS. [facility] [employer] [facility]. provides no warranty or guarantee of the accuracy or completeness of information in this document.
[2024-01-17 00:07] LABS: Age Gdln ACOG Testing Note (.); IGP, rfx Aptima HPV ASCU Note (.)
== END 2024-01-12 22:26 | disposition home or self-care (01) ==
LOC: LAB 22:25
PROVIDERS: PCP Family Medicine; Visit Provider Physician Assistant
DX: Z01.419 Encounter for gynecological examination (general) (routine) without abnormal findings (principal)
CPT/HCPCS: G0145

== ENCOUNTER 2024-01-27 14:03 | Outpatient (OUT) | payer OTHER, SELFPAY ==
[2024-01-27 15:29] LABS: HCG Quantitative 1901 mIU/mL
== END 2024-01-27 14:04 | disposition home or self-care (01) ==
PROVIDERS: PCP Family Medicine; Visit Provider Obstetrics & Gynecology
DX: N92.6 Irregular menstruation, unspecified (principal)
CPT/HCPCS: 36415; 84702

== ENCOUNTER 2024-01-29 12:09 | Outpatient (OUT) | payer OTHER, SELFPAY ==
[2024-01-29 13:17] LABS: HCG Quantitative 3214 mIU/mL
== END 2024-01-29 12:10 | disposition home or self-care (01) ==
LOC: LAB 12:13
PROVIDERS: PCP Family Medicine; Visit Provider Obstetrics & Gynecology
DX: N92.6 Irregular menstruation, unspecified (principal)
CPT/HCPCS: 36415; 84702

== ENCOUNTER 2024-02-03 14:34 | Outpatient (RCR) | payer OTHER, SELFPAY ==
[2024-02-03 15:35] LABS: HCG Quantitative 11299 mIU/mL
== END 2024-02-22 23:59 | disposition home or self-care (01) ==
LOC: LAB 14:34
PROVIDERS: PCP Family Medicine; Visit Provider Obstetrics & Gynecology
DX: N92.6 Irregular menstruation, unspecified (principal)
CPT/HCPCS: 36415; 84702

== ENCOUNTER 2024-02-23 08:51 | Outpatient (OUT) | payer OTHER, SELFPAY ==
--- NOTE | 2024-02-23 08:53 | US_ITS ---
[address] [address] Patient Name: ROQUE PIERSON MRN: [id number] date: 2000 Sex: F Assigned Patient Location: [facility] Current Patient Location: [facility] Accession/Order Number: [id number] Exam Date: 02/23/2024 08:53 Report Date: 02/23/2024 09:53 At the request of: REKHA JANSEN Procedure: US OB transvaginal EXAMINATION: US OB transvaginal HISTORY: MISSED MENSES COMPARISON: No relevant comparison available. FINDINGS: GESTATIONAL SAC: Present and normal appearing. YOLK SAC: Present and normal appearing. POLE: Present and normal appearing. CARDIAC: Present. UTERUS: Normal size and appearance. OVARIES: Right: Not seen. Left: Not seen. CERVIX: 4.3 cm in length and closed. CUL-DE-SAC: Normal. OTHER: None. AGE BY LMP: Unknown LMP B[place] BY LMP: AGE BY US CRL: 8 weeks 5 days [place] BY US CRL: 09/29/2024 US/US OB transvaginal IMPRESSION: 1. Single live intrauterine 8 weeks 5 days by today's ultrasound. Electronically authenticated by: JULIUS RICKS Date: 02/23/2024 09:53
== END 2024-02-23 08:52 | disposition home or self-care (01) ==
LOC: NOMS 08:51
PROVIDERS: PCP Family Medicine; Visit Provider Obstetrics & Gynecology
DX: Z34.91 Encounter for supervision of normal pregnancy, unspecified, first trimester (principal); Z3A.08 8 weeks gestation of pregnancy; N92.6 Irregular menstruation, unspecified
CPT/HCPCS: 76817

== ENCOUNTER 2024-03-05 11:22 | Outpatient (OUT) | payer OTHER, SELFPAY ==
[2024-03-05 12:31] LABS: Basophils Percent Auto 0.5 % (0.2-2.0); Eosinophils Absolute Auto 0.1 10^3/uL (0.0-0.7); Eosinophils Percent Auto 1.4 % (0.9-7.0); Hematocrit 38.9 % (36.0-48.0); Immature Granulocytes Abs Auto 0.02 10^3/uL (0.00-0.03); Immature Granulocytes Pct Auto 0.3 % (0.0-0.5); Lymphocytes Absolute Auto 2.3 10^3/uL (1.2-3.8); Lymphocytes Percent Auto 30.6 % (20.5-60.0); Mean Corpuscular HGB Conc 33.4 g/dL (29.9-35.2); Mean Corpuscular Hemoglobin 28.4 pg (26.7-34.0); Mean Corpuscular Volume 84.9 fL (81.0-99.0); Mean Platelet Volume 10.4 fL (9.5-13.5); Monocytes Absolute Auto 0.6 10^3/uL (0.3-0.8); Monocytes Percent Auto 7.9 % (1.7-12.0); Neutrophils Absolute Auto 4.4 10^3/uL (1.4-6.5); Neutrophils Percent Auto 59.3 % (43.0-75.0); Platelet Count 257 10^3/uL (150-450); Red Blood Count 4.58 10^6/uL (4.20-5.40); Red Cell Distribution Width 13.2 % (11.0-15.0); White Blood Count 7.4 10^3/uL (4.0-11.0)
[2024-03-05 12:33] LABS: Estimated Average Glucose 100 mg/dL; Glycohemoglobin A1C 5.1 % (4.5-6.2)
[2024-03-06 06:13] LABS: HBsAg Screen Negative (Negative); HCV Ab Non Reactive (Non Reactive); HIV Ab/p24 Ag Screen Non Reactive (Non Reactive)
[2024-03-06 11:13] LABS: Rapid Plasma Reagin, Quant Non Reactive titer (NonRea<1:1)
== END 2024-03-05 11:23 | disposition home or self-care (01) ==
LOC: LAB 11:24
PROVIDERS: PCP Family Medicine; Visit Provider Obstetrics & Gynecology
DX: Z34.80 Encounter for supervision of other normal pregnancy, unspecified trimester (principal); N92.6 Irregular menstruation, unspecified
CPT/HCPCS: 36415; 83036; 85025; 86592; 86762; 86803; 86850; 86900; 86901; 87086; 87340; 87389

== ENCOUNTER 2024-03-10 12:29 | Outpatient (OUT) | payer OTHER, SELFPAY ==
--- NOTE | 2024-03-10 | US_ITS ---
[address] [address] Patient Name: ROQUE PIERSON MRN: [id number] date: 2000 Sex: F Assigned Patient Location: Current Patient Location: US Accession/Order Number: [id number] Exam Date: 03/10/2024 12:43 Report Date: 03/10/2024 13:11 At the request of: REKHA JANSEN Procedure: US OB <= 14 weeks fetus EXAMINATION: US OB <= 14 weeks fetus HISTORY: with uncertain viability O36.80X0 COMPARISON: Ultrasound OB 02/23/2024 FINDINGS: GESTATIONAL SAC: Present and normal appearing. YOLK SAC: Present and normal appearing. POLE: Present and normal appearing. CARDIAC: Present. UTERUS: Normal size and appearance. OVARIES: Right: Not seen. Left: Not seen. CERVIX: 3.6 cm in length and closed. CUL-DE-SAC: Normal. OTHER: None. AGE BY LMP: 11 weeks 0 days [place] BY LMP: 09/29/2024 AGE BY US CRL: 10 weeks 5 days [place] BY US CRL: 10/01/2024 US/US OB <= 14 weeks fetus IMPRESSION: 1. Single live intrauterine with growth detailed above. Electronically authenticated by: JULIUS RICKS Date: 03/10/2024 13:11
== END 2024-03-10 12:30 | disposition home or self-care (01) ==
LOC: US 12:31
PROVIDERS: PCP Family Medicine; Visit Provider Obstetrics & Gynecology
DX: O36.80X0 Pregnancy with inconclusive fetal viability, not applicable or unspecified (principal); Z3A.10 10 weeks gestation of pregnancy
CPT/HCPCS: 76801

== ENCOUNTER 2024-04-29 12:45 | Outpatient (OUT) | payer OTHER, SELFPAY ==
[2024-05-01 01:07] LABS: AFP Value 80.2 ng/mL (.); Gest. Age on Collection Date 18.1 weeks (.); Gestat. Age Based On Ultrasound (.); Insulin Dep Diabetes No (.); Maternal Age At EDD 23.2 yr (.); OSBR Risk 1 IN 943 (.); Results Report (.)
== END 2024-04-29 12:46 | disposition home or self-care (01) ==
LOC: LAB 12:46
PROVIDERS: PCP Family Medicine; Visit Provider Physician Assistant
DX: Z34.92 Encounter for supervision of normal pregnancy, unspecified, second trimester (principal); Z3A.18 18 weeks gestation of pregnancy
CPT/HCPCS: 36415; 82105

== ENCOUNTER 2024-05-12 10:08 | Outpatient (OUT) | payer OTHER, SELFPAY ==
--- NOTE | 2024-05-12 10:06 | US_ITS ---
[address] [address] Patient Name: ROQUE PIERSON MRN: [id number] date: 2000 Sex: F Assigned Patient Location: [facility] Current Patient Location: [facility] Accession/Order Number: [id number] Exam Date: 05/12/2024 10:07 Report Date: 05/12/2024 11:54 At the request of: NOE HARRISON Procedure: US OB anatomy EXAMINATION: US OB anatomy, US OB cervical length HISTORY: ANATOMY COMPARISON: No relevant comparison available. TECHNIQUE: Transabdominal sonographic examination was performed for obstetrical and evaluation. FINDINGS: Number: 1 Heart Rate: 151 bpm H.B. /min Amniotic Fluid Volume: Subjectively normal position: Cephalic presentation Placental Location: Anterior. The placental edge is 6.8 cm from the internal cervical os Cervix Length: 4.63 cm , closed Normal anatomy: Lateral ventricles, cerebellum, posterior fossa, nose, lips, orbits, four-chamber heart, RVOT, LVOT, diaphragm, stomach, kidneys, abdominal cord insertion, bladder, umbilical arteries, three-vessel cord, spine, extremities BIOMETRY: BPD: 5.19 cm; 21 weeks 5 days; 96.90 % HC: 18.41 cm; 20 weeks 5 days; 76.70 % AC: 16.06 cm; 21 weeks 1 day; 80.50 % FL: 3.32 cm; 20 weeks 3 days; 56.60 % EFW:427.12 g; 88.40 %, 13 ounces FL/AC: 20.67 FL/BPD: 63.97 HC/AC: 1.15 GESTATIONAL AGE: Age by EDC: 20 weeks 0 days [place] by EDC: 2024-09-29 Age by current US: 21 weeks 0 days [place] by current US: 2024-09-22 US/US OB anatomy IMPRESSION: Normal anatomy scan Closed cervix measuring 4.6 cm in length *Reference: [employer] Practice Guideline for the performance of Obstetric Ultrasound Examinations, May 25, 2007. Electronically authenticated by: ALFRED BERGERON Date: 05/12/2024 11:54
--- NOTE | 2024-05-12 10:06 | US_ITS ---
[address] [address] Patient Name: ROQUE PIERSON MRN: [id number] date: 2000 Sex: F Assigned Patient Location: [facility] Current Patient Location: [facility] Accession/Order Number: [id number] Exam Date: 05/12/2024 10:07 Report Date: 05/12/2024 11:54 At the request of: NOE HARRISON Procedure: US OB cervical length EXAMINATION: US OB anatomy, US OB cervical length HISTORY: ANATOMY COMPARISON: No relevant comparison available. TECHNIQUE: Transabdominal sonographic examination was performed for obstetrical and evaluation. FINDINGS: Number: 1 Heart Rate: 151 bpm H.B. /min Amniotic Fluid Volume: Subjectively normal position: Cephalic presentation Placental Location: Anterior. The placental edge is 6.8 cm from the internal cervical os Cervix Length: 4.63 cm , closed Normal anatomy: Lateral ventricles, cerebellum, posterior fossa, nose, lips, orbits, four-chamber heart, RVOT, LVOT, diaphragm, stomach, kidneys, abdominal cord insertion, bladder, umbilical arteries, three-vessel cord, spine, extremities BIOMETRY: BPD: 5.19 cm; 21 weeks 5 days; 96.90 % HC: 18.41 cm; 20 weeks 5 days; 76.70 % AC: 16.06 cm; 21 weeks 1 day; 80.50 % FL: 3.32 cm; 20 weeks 3 days; 56.60 % EFW:427.12 g; 88.40 %, 13 ounces FL/AC: 20.67 FL/BPD: 63.97 HC/AC: 1.15 GESTATIONAL AGE: Age by EDC: 20 weeks 0 days [place] by EDC: 2024-09-29 Age by current US: 21 weeks 0 days [place] by current US: 2024-09-22 US/US OB cervical length IMPRESSION: Normal anatomy scan Closed cervix measuring 4.6 cm in length *Reference: [employer] Practice Guideline for the performance of Obstetric Ultrasound Examinations, May 25, 2007. Electronically authenticated by: ALFRED BERGERON Date: 05/12/2024 11:54
== END 2024-05-12 10:09 | disposition home or self-care (01) ==
LOC: NOMS 10:08
PROVIDERS: PCP Family Medicine; Visit Provider Physician Assistant
DX: Z36.89 Encounter for other specified antenatal screening (principal); Z3A.20 20 weeks gestation of pregnancy
CPT/HCPCS: 76805; 76817

== ENCOUNTER 2024-06-12 10:33 | Outpatient (OUT) | payer OTHER, SELFPAY ==
--- OUTSIDE RECORDS SUMMARY | 2024-06-12 10:37 | XMS_ITS | CCD ---
Author Organization [facility] Care Team Providers Care Well Testing Operator Name Role Phone JANIE JO Burk Unavailable Unavailable Delfin Urbano MD Primary Care Provider Delfin Urbano MD Primary Care Provider Delfin Urbano MD Primary Care Provider [phone] Delfin Urbano Primary Care Physician Delfin Urbano MD Primary Care Provider [phone] CHRISTY ., JO Consulting Unavailable REQUEST, DR GALDINO LISTED Primary Care Unavaila ble CHRISTY ., JO Attending Unavailable CHRISTY ., JO Admitting Unavailable KEIRA ., DR DA SILVA Consulting Unavailable HOY ., DR BOGGS Primary Care Unavailable KEIRA ., DR DA SILVA Attending Unavailable KEIRA ., DR DA SILVA Admitting Unavailable CHRISTY ., JO Consulting Unavailable HOY ., DR BOGGS Primary Care Unavailable CHRISTY ., JO Attending Unavailable CHRISTY ., JO Admitting Unavailable KEIRA ., DR DA SILVA Consulting Unavailable HOY ., DR BOGGS Primary Care Unavailable KEIRA ., DR DA SILVA Attending Unavailable KEIRA ., DR DA SILVA Admitting Unavailable HOY ., DR BOGGS Primary Care Unavailable KEIRA ., DR DA SILVA Attending Unavailable KIERA ., DR DA SILVA Admitting Unavailable HOY ., DR BOGGS Primary Care Unavailable CHRISTY ., JO Attending Unavailable CHRISTY ., JO Admitting Unavailable KEIRA ., DR DA SILVA [...] DA SILVA Admitting Unavailable ALFRED BERGERON Unavailable DINAY ., DR BOGGS Primary Care Unavailable KEIRA ., DR DA SILVA Attending Unavailable KEIRA ., DR DA SILVA Admitting Unavailable KEIRA ., DR DA SILVA Consulting Unavailable Shawn Wilson Attending Unavailable Shawn Wilson Admitting Unavailable Kei Moore Attending Unavailable Hakendell, Astrit H Attending Unavailable Coleman Ludwig Attending Unavailable DO Sissy Shah Attending Unavailable Fercho Jaime Attending Unavailable Alyssa, DO Sissy Maldonado Attending Unavailable DELFIN URBANO Primary Care Unavailable DELFIN URBANO Primary Care Unavailable Julius Crockett Attending Provider Julius Crockett Attending Unavailable Julius Crockett Admitting Unavailable DELFIN URBANO Primary Care Unavailable DAVID SILVA Attending Unavailable DELFIN URBANO Primary Care Unavailable ANDREA MITCHELL Attending Unavailable DELFIN URBANO Primary Care Unavailable MORGAN FALK Attending Unavailable Anu, Astrit H Attending Unavailable JULIUS CROCKETT Attending Unavailable JULIUS CROCKETT Attending Unavailable JO ANDERSON Attending Unavailable JO ANDERSON Attending Unavailable JULIUS CROCKETT Attending Unavailable OJ ANDERSON Attending Unavailable JO ANDERSON Attending Unavailable Delfin Urbano MD Primary Care Provider [phone] Jo Ledesma Unavailable Medications Current Medications Medication Drug Class(es) Dates Sig (Normalized) Sig (Original) Amoxicillin (5 sources) Penicillin-class Antibacterial Start: 11-25-2022 amoxicillin 500 [...] oral solution (1 source) alpha-Adrenergic Agonist, Uncompetitive G-crnmae-A-aspartat e Receptor Antagonist, Sigma-1 Agonist Start: 09-08-2023 End: 09-15-2023 take 10 mL by mouth four times daily for cough and congestion Bromfed DM oral syrup 10 mL, Oral, QID for cough and congestion for 7 day(s), 280 mL, Refill(s) 0, [facility], 175, cm, 09/08/23 11:11:00 EST, [...] Status: Ordered metoclopramide 10 mg oral tablet (8 sources) Dopamine-2 Receptor Antagonist Start: 09-04-2022 End: 09-30-2022 take 1 tablet by mouth every six hours Reglan 10 mg Tab 10 mg = 1 tab(s), Oral, q6hr, # 14 tab(s), Refills(s) 0, Pharmacy: [facility], 173, cm, 09/08/22 1:24:00 EST, Height/Length Dosing, 72.1, kg, 09/08/22 1:24:00 EST, Weight Dosing Start Date: 09/08/22 Status: Ordered nutritional drink (Boost) liquid (2 sources) Start: 05-27-2024 End: 06-26-2024 nutritional drink (Boost) liquid Indications: Decreased appetite Take 1 Can by mouth Daily 237 mL 3 05/27/2024 06/26/2024 Active ondansetron 4 mg disintegrating oral tablet (18 [...] Active promethazine hydrochloride 12.5 mg oral tablet (11 sources) Phenothiazine Start: 09-02-2022 End: 09-30-2022 take [...] Status: Ordered Zofran ODT 4 mg Tab-Dis (6 sources) Start: 08-29-2022 take 1 tablet by [...] menstruation with irregular cycle] Onset: 02-15-2022 Chronic Other complications of (1 source) Morning sickness; [...] Translations: [Vomiting of , unspecified] Episodic Other complications of (1 source) Other specified related conditions, first trimester; Translations: [Other specified related conditions, first trimester] Onset: 02-01-2024 Episodic Other female genital disorders (1 source) Other specified noninflammatory disorders of vagina; Translations: [OTH SPEC NONINFLAMMATORY D/O VAGINA] Onset: 11-15-2022 Episodic Other nutritional; endocrine; and metabolic disorders (2 sources) Decrease in appetite; Translations: [Anorexia] 05-27-2024 Episodic Other and delivery including normal (8 sources) Normal ; Translations: [Encounter for supervision of normal , unspecified, unspecified trimester] Onset: 08-29-2022 Episodic Other screening for suspected conditions (not mental disorders or infectious disease) (16 sources) test negative; Translations: [Encounter for test, result negative] Onset: 11-07-2022 Episodic Residual codes; unclassified (1 source) 10 weeks gestation of ; Translations: [10 WEEKS GESTATION OF ] Onset: 09-25-2022 Episodic Residual codes; unclassified (2 sources) Gestation period, 22 weeks; Translations: [22 weeks gestation of ] 05-27-2024 Episodic Skin and subcutaneous tissue infections (1 [...] Date Documented Da te Episodic/Chronic Abdominal pain (8 sources) Finding of sensation of abdomen; Translations: [Unspecified abdominal pain] Onset: 07-12-2022 Episodic Genitourinary symptoms and ill-defined conditions (1 source) Bacteriuria; Translations: [Bacteriuria] Onset: 03-23-2023 Episodic Hemorrhoids (1 source) Residual hemorrhoidal skin tags; Translations: [Residual hemorrhoidal skin tags] Onset: 04-05-2023 Episodic Nausea and vomiting (8 sources) Nausea and vomiting; Translations: [Nausea with vomiting, unspecified] Onset: 08-29-2022 Episodic Other complications of (3 sources) Disorder of ; Translations: [Other specified related conditions, unspecified trimester] Onset: 03-10-2023 03-10-2023 Episodic Other infections (1 source) Enterobiasis; Translations: [Enterobiasis] Onset: 06-02-2017 Episodic Unclassified (5 sources) Onset: 11-25-2022 Resolved: 06-25-2023 11-25-2022 Results Test Name Value Interpretation Reference Range Facility Urinalysis macro (dipstick) panel (U)on 05-27-2024 Bilirubin, UA Negative Negative - 4(70) +++ mg/dL [facility] Blood, UA Negative Negative - 50 Jorge/mcL [facility] Clarity, UA Clear [facility] Color, UA Angelina [facility] Glucose, UA Negative Negative - 2000(110) ++++ mg/dL [facility] Interpretation and review of laboratory results Normal [facility] Ketones, UA Negative Negative - 160(16) ++++ mg/dL [facility] Leukocytes, UA Negative Negative - 500+++ Jose/mcL [facility] Nitrite, UA Negative Negative - Positive [facility] pH, UA 5.5 5 - 9 [facility] Protein, UA Negative Negative - 1999(20) ++++ mg/dL [facility] Spec Grav, UA 1.030 1 - 1.03 [facility] Urobilinogen, UA 0.2 0.2 - 12 mg/dL [facility] ED Note-Physicianon 04-24-20 ED Note-Physician ED Note-Physician Basic Information Time Seen: Eagle Hawk PA-C 04/23/2024 09:42 Chief Complaint Pt states that shes been having abdominal pain and back pain starting a couple days ago. Pt is 18 wees . Denies any difficulty urinating or blood in urine. History of Present Illness 23-year-old female comes into the ED for evaluation of abdominal pain. Over the last few days patient with lower abdominal pain that radiates around to the flanks. No other complaints or concerns. No fever, chills, nausea, vomiting. No diarrhea, constipation or urinary complaints. No vaginal discharge or bleeding. She is currently 18 weeks . She does follow with SUPPORT ASSISTANT. She has had no complications to date. No previous abdominal surgeries. No prior treatments. Review of Systems A 10 point review of systems is negative except as noted above. Medical and Surgical History: Reviewed and noted Social history: Lives at home Tobacco: Denies Physical Exam Vitals & Measurements T: 36.8 ?C(Oral) HR: 65(Peripheral) RR: 18 BP: 108/55 SpO2: 98% HT: 175 cm WT: 74.2 kg BMI: 24.23 Nurses notes and vital signs reviewed and patient is not hypoxic. General: The patient appears well, resting comfortably. Skin: Warm, dry. Head: Atraumatic. Neck: No JVD. Eye: Normal conjunctiva. Ears, Nose, Mouth, and Throat: Moist mucous membranes. Cardiovascular: Strong distal pulses. Chest wall: Respiratory: Respirations are nonlabored. Back: Normal range of motion. No CVA tenderness Musculoskeletal: Normal ROM with no gross deformity. Gastrointestinal: Mild tenderness across the lower abdomen. No guarding rebound or rigidity. No distention. Negative McBurney's. Negative Shah's. Urological: Neurological: Awake and alert. No focal deficits. Follows commands. Psychiatric: Cooperative. Medical Decision Making Laboratory studies reviewed and noted. heart tones 132. Abdomen is soft throughout. Results are discussed with the patient. She is resting comfortably on serial examinations. No fever. No vomiting. No diarrhea. No vaginal discharge or bleeding. She is discharged home to follow-up with her PCP and SUPPORT ASSISTANT. Patient was encouraged to return to the ED if symptoms worsen or change. Assessment/Plan Abdominal pain (R10.9: Unspecified abdominal pain) Orders: Basic Metabolic Panel CBC w/ Auto Diff eGFR Hepatic Function Panel Lipase Level UA with Cult Rflx Disposition Plan Patient Discharge Condition Disposition: Discharged home Condition: Improved and stable Counseled: Patient and/or family were counseled to workup, results, treatment plan and follow-up recommendations Discharge Prescription List Prescriptions No active prescription medications Follow-up With When Contact Information Julius CROCKETT In 3 days 04/26/2024 EDT [facility] [address] [facility] , [place] [address]- Business (1) Additional Instructions: Delfin Urbano In 3 days 04/26/2024 EDT [address] [place] [address]- Business (1) Additional Instructions: Patient Education Abdominal Pain, Adult Attestation I performed a substantive part of the MDM during the patient?s E/M visit. I personally made or approved the documented management plan and acknowledge its risk of complications. (Independent Interpretation) My (EKG/X-Ray/US/CT) interpretation as above. (Discussion) Management/test interpretation discussed with APC. This report was transcribed using voice recognition software. Every effort was made to ensure accuracy, however, inadvertently computerized client service consultant mistakes may be present. Appropriate healthcare PPE was used in evaluating this patient. Problem List/Past Medical History Ongoing No qualifying data Historical None Procedure/Surgical History None. Medications Inpatient No active inpatient medications Home amoxicillin, 500 mg promethazine 12.5 mg [...] tobacco concerns: Yes., 12/16/2015 Lab Results WBC: 8 E9/L (04/23/24 10:47:00) RBC: 4 E12/L Low (04/23/24 10:47:00) HGB: 11.8 gm/dL Low (04/23/24 10:47:00) Hct: 33.7 % Low (04/23/24 10:47:00) MCV: 84 fL (04/23/24 10:47:00) MCH: 29.5 pg (04/23/24 10:47:00) MCHC: 35.1 gm/dL (04/23/24 10:47:00) RDW: 14.4 % High (04/23/24 10:47:00) Platelet: 202 E9/L (04/23/24 10:47:00) MPV: 8.6 fL (04/23/24 1 (more content not included)... Normal [facility] Comment on above: Result Comment: Elec tronically Signed By: Eagle Hawk PA-C\.br\Date and Time Signed: 04/23/24 14:52 EDT\.br\Electronically Co-Signed By: Alfredito Brennan M.D.\.br\Date and Time Co-Signed: 04/24/24 07:15 EDT CHEMISTRYOrdered By: SYSTEM SYSTEM on 04-23-2024 Albumin [Mass/Vol] 3.8 g/dL Normal 3.3 - 5.0 gm/dL [facility] Albumin/Globulin [Mass ratio] 1.4 {ratio} Normal 1.1 - 2.2 [facility] ALP [Catalytic activity/Vol] 58 [iU]/d Normal 21 - 98 Int._Unit/L [facility] ALT No additional P-5'-P [Catalytic activity/Vol] 9 [iU]/d Normal 6 - 46 Int._Unit/L [facility] Anion gap [Moles/Vol] 10 mmol/L Normal 6 - 16 mEq/L R emisol Chem AST [Catalytic activity/Vol] 13 [iU]/d Normal 5 - 43 Int._Unit/L [facility] Bilirubin [Mass/Vol] 0.3 mg/dL Normal 0.0 - 1 .1 mg/dL [facility] Bilirubin.direct [Mass/Vol] 0.0 mg/dL Normal 0.0 - 0.4 mg/dL [facility] Bilirubin.indirect [Mass or moles/Vol] 0.3 mg/dL Normal 0.1 - 0.9 mg/dL [facility] Calcium [Mass/Vol] 8.4 mg/dL Low 8.9 - 11. 1 mg/dL [facility] Chloride [Moles/Vol] 108 mmol/L Normal 101 - 1 11 mmol/L [facility] CO2 [Moles/Vol] 21 mmol/L Normal 21 - 31 mmol/L [facility] Creatinine [Mass/Vol] 0.5 mg/dL Normal 0.5 - 1.3 mg/dL [facility] eGFR 135 mL/min/1.73 m2 Normal >=59mL/mi n/1. 73 m2 [facility] Globulin (S) [Mass/Vol] 2.8 g/dL Normal 1.4 - 4.0 gm/dL [facility] Glucose [Mass/Vol] 85 mg/dL Normal 55 - 199 mg/dL [facility] Lipase [Catalytic activity/Vol] 14 U/L Normal 13 - 58 unit/L [facility] Potassium [Moles/Vol] 3.4 mmol/L Low 3.5 - 5.3 mmol/L [facility] Protein [Mass/Vol] 6.6 g/dL Normal 6.0 - 7.8 gm/dL [facility] Sodium [Moles/Vol] 136 mmol/L Normal 135 - 145 mmol/L [facility] Urea nitrogen [Mass/Vol] 6 mg/dL Normal 5 - 21 mg/dL [facility] Urea nitrogen/Creatinine [Mass ratio] 12 mg/mg Normal 10 - 20 [facility] ED Clinical Summaryon 2023 ED Clinical Summary ED Clinical Summary [address] [address] ED Clinical Summary Person Information Name: ROQUE PIERSON/NewShravan Age: 23 Years : 2000 Sex: Female Language: Togolese PCP: Delfin Urbano MD Marital Status: Phone: [phone] Visit Id: Visit Reason: Abdominal pain; Back pain; BACK PAIN / STOMACH PAIN / HEADACHE / SAYS 18 WKS PREG Speciality: Acuity: 3 Enc Type: Emergency Med Service: Emergency Arrival: 04/23/2024 09:36:31 Discharge: 04/23/2024 12:06:31 LOS: 000 02:30 Checkin: 04/23/2024 09:36:31 Checkout: 04/23/2024 12:06:31 Dispo Type: Home (Routine DC) EVENTS: Event Name Event Status Request Date/Time Start Date/Time Complete Date/Time Arrive Complete 04/23/2024 09:36:31 04/23/2024 09:36:31 04/23/2024 09:36:31 Document Home Meds Request 04/23/2024 09:36:31 Triage Complete 04/23/2024 09:36:31 04/23/2024 09:46:13 04/23/2024 09:46:13 Registration Complete 04/23/2024 09:39:43 04/23/2024 09:39:43 04/23/2024 09:39:43 Reg Complete Request 04/23/2024 09:39:43 Reg Bed Request Complete 04/23/2024 09:39:43 04/23/2024 09:39:43 04/23/2024 09:39:43 Bed Assign Complete 04/23/2024 09:41:09 04/23/2024 09:41:09 04/23/2024 09:41:09 Dr Exam Complete 04/23/2024 09:41:09 04/23/2024 09:42:56 04/23/2024 09:42:56 RN Exam Complete 04/23/2024 09:41:09 04/23/2024 11:34:20 04/23/2024 11:34:20 Registration Request 04/23/2024 09:42:56 Dr Exam Complete 04/23/2024 09:50:43 04/23/2024 09:50:43 04/23/2024 09:50:43 Pending Labs Complete 04/23/2024 09:58:05 04/23/2024 10:33:54 Pending Labs Complete 04/23/2024 10:38:57 04/23/2024 11:31:39 Lab Complete 04/23/2024 10:38:57 04/23/2024 11:31:39 Pending Labs Complete 04/23/2024 10:57:55 04/23/2024 10:57:55 04/23/2024 11:31:39 Lab Complete 04/23/2024 10:57:55 04/23/2024 10:57:55 04/23/2024 11:31:39 Discharge Complete 04/23/2024 11:53:05 04/23/2024 12:06:37 04/23/2024 12:06:37 Transfer Complete 04/23/2024 12:06:37 04/23/2024 12:06:37 04/23/2024 12:06:37 ADDRESS: [address] [place] [phone] PHYS DOC NOTES: MEDICAL INFORMATION: Prescriptions Given: [...] nausea/vomiting. Refills: 0. PATIENT EDUCATION INFORMATION: Instructions: Abdominal Pain, Adult Follow up: With: Address: When: Julius CROCKETT [facility] [address] [place] [address] , [place], [place] [id number] Business (1) In 3 days 04/26/2024 With: Address: When: Delfin Urbano [facility], [place] [address] Business (1) In 3 days 04/26/2024 DIAGNOSIS: Abdominal pain Normal [facility] ED Patient Summaryon 024 ED Patient Summary ED Patient Summary [address] [address] Patient Discharge Instructions Person Information Name: ROQUE PIERSON Age: 23 Years Arrival Date: 04/23/2024 09:36:31 Discharge Diagnosis: Abdominal pain Primary Care Physician: Delfin Urbano MD Provider Information Primary Provider: Alfreidto Brennan M.D. Advanced Rn Recovery:Eagle Hawk PA-C The exam and treatment you received in the Emergency Department were for an urgent problem and are not intended as complete care. It is important that you follow up with a doctor, nurse practitioner, or physician?s costumer assistant for ongoing care. If your symptoms [...] Follow-up Instructions: With: Address: When: Julius CROCKETT [address] [place] [address] Business (1) In 3 days 04/26/2024 With: Address: When: Delfin Urbano [address] [place] [address], [place] [address] Business (1) In 3 days 04/26/2024 In the event that this physician does not participate in your insurance network, please consult with your insurance company to find a nearby participating provider. Patient Education Materials: Abdominal Pain, Adult A MESSAGE TO ALL PATIENTS REGARDING OPIOIDS PRESCRIPTION OPIOIDS: WHAT YOU NEED TO KNOW Prescription opioids can be used to help relieve bgmsvncb-wc-yvhtim pain and are often prescribed following a [...] about the risks of opioids abuse and overdose (more content not included)... Normal [facility] HEMATOLOGYOrdered By: SYSTEM SYSTEM on 04-23-2024 Basophils/100 WBC (Bld) 0.8 % Normal 0.0 - 2.0 % Rem[facility] Heme Basophils/Leukocytes Auto (Bld) [Pure # fraction] 0.1 E9/L Normal 0.0 - 0.2 E9/L [facility] Eosinophils (Bld) [#/Vol] 0.1 E9/L Normal 0.0 - 0.5 E9/L [facility] Eosinophils/100 WBC (Bld) 1.5 % Normal 0.0 - 8.0 % [facility] Erythrocyte distribution width (RBC) [Ratio] 14.4 % High 10.9 - 14.2 % [facility] Hematocrit (Bld) [Volume fraction] 33.7 % Low 34.0 - 46.0 % [facility] Hemoglobin (Bld) [Mass/Vol] 11.8 g/dL Low 12.0 - 16.0 gm/dL [facility] Lymphocytes (Bld) [#/Vol] 2.1 E9/L Normal 1.0 - 4.0 E9/L [facility] Lymphocytes/100 WBC (Bld) 26.5 % Normal 14.0 - 50.0 % [facility] MCH (RBC) [Entitic mass] 29.5 pg Normal 27.0 - 34.0 pg Rem[facility] Heme MCHC (RBC) [Mass/Vol] 35.1 g/dL Normal 31.4 - 36.0 gm/dL [facility] MCV (RBC) [Entitic vol] 84.0 fL Normal 80.0 - 100.0 fL [facility] Monocytes (Bld) [#/Vol] 0.5 E9/L Normal 0.2 - 1.0 E9/L [facility] Monocytes/100 WBC (Bld) 6.3 % Normal 4.0 - 14.0 % [facility] Neutrophils (Bld) [#/Vol] 5.2 E9/L Normal 2.0 - 7.5 E9/L [facility] Neutrophils/100 WBC (Bld) 64.9 % Normal 36.0 - 75.0 % [facility] Platelet mean volume (Bld) [Entitic vol] 8.6 fL Normal 6.4 - 10.8 fL [facility] Platelets (Bld) [#/Vol] 202.0 E9/L Normal 150.0 - 500.0 E9/L [facility] RBC (Bld) [#/Vol] 4.0 E12/L Low 4.3 - 5.9 E12/L [facility] WBC corrected for nucl RBC Auto (Bld) [#/Vol] 8.0 E9/L Normal 4.0 - 11.0 E9/L [facility] URINALYSISOrdered By: AgentPair SYSTEM on 04-23-2024 Bilirubin Ql (U) Negative Normal Negativemg/dL [facility] UA Auto SS Clarity (U) Clear (04/23/24 10:23 AM) Normal Clear [facility] UA Auto SS Color (U) Light-Yellow 1 (04/23/24 10:23 AM) Normal Yellow [facility] UA Auto SS Comment on above: Interpretive Data: M icroscopic readings are only performed on those samples that meet specific criteria set forth by [facility]. Glucose Ql (U) Negative Normal Negativemg/dL [facility] UA Auto SS Hemoglobin Auto test strip (U) [Mass/Vol] Negative Normal Negativemg/dL [facility] UA Aut o SS Ketones Auto test strip Ql (U) Negative Normal Negativemg/dL [facility] UA Auto SS Leukocyte esterase Auto test strip Ql (U) Negative Normal NegativeLeu/u L [facility] UA Auto SS Nitrite Auto test strip Ql (U) Negative Normal Negativemg/dL [facility] UA Auto SS pH (U) 5.5 *NA* (04/23/24 10:23 AM) Invalid Interpretation Code 5.0 - 9.0 [facility] UA Auto SS Protein Ql (U) Negative Normal Negativemg/dL [facility] UA Auto SS Specific gravity (U) [Rel density] 1.013 *NA* (04/23/24 10:23 AM) Invalid Interpretation Code 1.005 - 1.030 [facility] UA Auto SS Urobilinogen (U) [Mass/Vol] Negative Normal Negativemg/dL [facility] UA Auto SS URINALYSISOrdered By: Eagle Hawk on 04-23-2024 UA Spec Desc Clean Catch (04/23/24 10:23 AM) Normal [facility] UA Auto SS eGFRon 04-23-2024 eGFR 135 mL/min/1.73 m2 Normal >=59 [facility] Comment on above: Order Comment: Order added by Discern Expert. Performed By: #### 1 [id number] #### [facility] [address] [place] [address] CBC with Diffon 02-01-2024 Abs. Basophil 0.02 k/uL Normal 0.00-0.20 [facility] Comment on above: Performed By: #### C P, BHCG, CDP #### [facility] [address] [phone] Filen[employer] Architect: Alfred Chirinos MD Abs.Imm.Granulocyte 0.01 k/uL Normal 0.00-0.30 [facility] Comment on above: Performed By: #### C P, BHCG, CDP #### [facility] [address] [phone] [employer] Architect: Alfred Chirinos MD Abs.Neutrophil (Seg) 3.51 k/uL Normal 2.5-7.0 [facility] Comment on above: Performed By: #### C P, BHCG, CDP #### [facility] [address] [place] [address] [employer] Architect: Alfred Chirinos MD Basophils/100 WBC (Bld) 0 % Normal 0-2 [facility] Comment on above: Performed By: #### C P, BHCG, CDP #### [facility] [address] [phone] [employer] Architect: Alfred Chirinos MD Eosinophils (Bld) [#/Vol] 0.72 10*3/uL High 0.00-0.40 [facility] Comment on above: Performed By: #### C P, BHCG, CDP #### [facility] [address] [place], [place] [phone] [employer] Architect: Alfred Chirinos MD Eosinophils/100 WBC (Bld) 11 % High 0-5 [facility] Comment on above: Performed By: #### C P, BHCG, CDP #### [facility] [address] [place], [place] [id number] [employer] Architect: Alfred Chirinos MD Erythrocyte distribution width (RBC) [Ratio] 13.4 % Normal 12.1-15.2 [facility] Comment on above: Performed By: #### C P, BHCG, CDP #### [facility] [address] [place] [address] [employer] Architect: Alfred Chirinos MD Hematocrit (Bld) [Volume fraction] 36.3 % Normal 36.0-46.0 [facility] Comment on above: Performed By: #### C P, BHCG, CDP #### [facility] [address] [place] [address] [employer] Architect: Alfred Chirinos MD Hemoglobin (Bld) [Mass/Vol] 12.0 g/dL Normal 12.0-16.0 [facility] Comment on above: Performed By: #### C P, BHCG, CDP #### [facility] [address] [place], [place] [phone] [employer] Architect: Alfred Chirinos MD Immature granulocytes/100 WBC (Bld) 0 % Normal 0-5 [facility] Comment on above: Performed By: #### C P, BHCG, CDP #### [facility] [address] [place] [address] [employer] Architect: Alfred Chirinos MD Lymphocytes (Bld) [#/Vol] 1.80 10*3/uL Normal 1.00-4.80 [facility] Comment on above: Performed By: #### C P, BHCG, CDP #### [facility] [address] [place] [address] [employer] Architect: Alfred Chirinos MD Lymphocytes/100 WBC (Bld) 27 % Normal 15-40 [facility] Comment on above: Performed By: #### C P, BHCG, CDP #### [facility] [address] [place] [address] [employer] Architect: Alfred Chirinos MD MCH (RBC) [Entitic mass] 28.0 pg Normal 26.0-34.0 [facility] Comment on above: Performed By: #### C P, BHCG, CDP #### [facility] [address] [place] [address] [employer] Architect: Alfred Chirinos MD MCHC (RBC) [Mass/Vol] 33.1 g/dL Normal 31.0-37.0 [facility] Comment on above: Performed By: #### C P, BHCG, CDP #### [facility] [address] [phone] [employer] Architect: Alfred Chirinos MD MCV (RBC) [Entitic vol] 84.8 fL Normal 80.0-100.0 [facility] Comment on above: Performed By: #### C P, BHCG, CDP #### [facility] [address] [phone] [employer] Architect: Alfred Chirinos MD Monocytes (Bld) [#/Vol] 0.59 10*3/uL Normal 0.00-1.00 [facility] Comment on above: Performed By: #### C P, BHCG, CDP #### [facility] [address] [place] [address] [employer] Architect: Alfred Chirinos MD Monocytes/100 WBC (Bld) 9 % High 4-8 [facility] Comment on above: Performed By: #### C P, BHCG, CDP #### [facility] [address] [place] [address] (470) [employer] Architect: Alfred Chirinos MD Neutrophil (Seg) 53 % Normal 47-75 [facility] Comment on above: Performed By: #### C P, BHCG, CDP #### [facility] [address] [place] [address] (318) [employer] Architect: Alfred Chirinos MD Platelet mean volume (Bld) [Entitic vol] 10.0 fL Normal 6.0-12.0 [facility] Comment on above: Performed By: #### C P, BHCG, CDP #### [facility] [address] [place] [address] (810) [employer] Architect: Alfred Chirinos MD Platelets (Bld) [#/Vol] 256 10*3/uL Normal 140-450 [facility] Comment on above: Performed By: #### C P, BHCG, CDP #### [facility] [address] [place] [address] (862) [employer] Architect: Alfred Chirinos MD RBC (Bld) [#/Vol] 4.28 10*6/uL Normal 4.00-5.20 [facility] Comment on above: Performed By: #### C P, BHCG, CDP #### [facility] [address] [place] [address] (330) [employer] Architect: Alfred Chirinos MD WBC (Bld) [#/Vol] 6.7 10*3/uL Normal 3.5-11.0 [facility] Comment on above: Performed By: #### C P, BHCG, CDP #### [facility] [address] [place] [address] (886) [employer] Architect: Alfred Chirinos MD Comp Metabolic Profon 2023 Albumin [Mass/Vol] 4.3 g/dL Normal 3.5-5.2 [facility] Comment on above: Performed By: #### C P, BHCG, CDP #### [facility] [address] [place] [address] [employer] Architect: Alfred Chirinos MD Alkaline Phos 77 U/L Normal 35-104 [facility] Comment on above: Performed By: #### C P, BHCG, CDP #### [facility] [address] [place] [address] [employer] Architect: Alfred Chirinos MD ALT [Catalytic activity/Vol] 15 U/L Normal 5-33 [facility] Comment on above: Performed By: #### C P, BHCG, CDP #### [facility] [address] [place] [address] [employer] Architect: Alfred Chirinos MD Anion gap [Moles/Vol] 13 mmol/L Normal 9-17 [facility] Comment on above: Performed By: #### C P, BHCG, CDP #### [facility] [address] [place] [address] [employer] Architect: Alfred Chirinos MD AST [Catalytic activity/Vol] 19 U/L Normal <32 [facility] Comment on above: Performed By: #### C P, BHCG, CDP #### [facility] [address] [place] [address] [employer] Architect: Alfred Chirinos MD Bilirubin [Mass/Vol] 0.3 mg/dL Normal 0.3-1.2 [facility] Comment on above: Performed By: #### C P, BHCG, CDP #### [facility] [address] [place] [address] [employer] Architect: Alfred Chirinos MD BUN/CRE Ratio 10 Normal 9-20 [facility] Comment on above: Performed By: #### C P, BHCG, CDP #### [facility] [address] [place] [address] [employer] Architect: Alfred Chirinos MD Calcium [Mass/Vol] 9.2 mg/dL Normal 8.6-10.4 [facility] Comment on above: Performed By: #### C PDEVONCG, CDP #### [facility] [address] [place] [address] [employer] Architect: Alfred Chirinos MD Chloride [Moles/Vol] 104 mmol/L Normal 98-107 [facility] Comment on above: Performed By: #### C P BHCG, CDP #### [facility] [address] [place] [address] [employer] Architect: Alfred Chirinos MD CO2 [Moles/Vol] 21 mmol/L Normal 20-31 [facility] Comment on above: Performed By: #### C P BHCG, CDP #### [facility] [address] [place] [address] [employer] Architect: Alfred Chirinos MD Creatinine [Mass/Vol] 0.6 mg/dL Normal 0.5-0.9 [facility] Comment on above: Performed By: #### C DEVON DuCG, CDP #### [facility] [address] [place] [address] [employer] Architect: Alfred Chirinos MD GFR/1.73 sq M.predicted among non-blacks MDRD (S/P/Bld) [Vol rate/Area] mL/min/{1.73_m2} Normal >60 [facility] Comment on above: Result Comment: These results are not intended for use [...] renal tubular secretion. Performed By: #### C P, BHCG, CDP #### [facility] [address] [place] [address] [employer] Architect: Alfred Chirinos MD Glucose [Mass/Vol] 103 mg/dL High 70-99 [facility] Comment on above: Performed By: #### C P, BHCG, CDP #### [facility] [address] [place] [address] [employer] Architect: Alfred Chirinos MD Potassium [Moles/Vol] 4.0 mmol/L Normal 3.7-5.3 [facility] Comment on above: Performed By: #### C P, BHCG, CDP #### [facility] [address] [place] [address] [employer] Architect: Alfred Chirinos MD Protein [Mass/Vol] 7.2 g/dL Normal 6.4-8.3 [facility] Comment on above: Performed By: #### C P, BHCG, CDP #### [facility] [address] [place] [address] [employer] Architect: Alfred Chirinos MD Sodium [Moles/Vol] 138 mmol/L Normal 135-144 [facility] Comment on above: Performed By: #### C P, BHCG, CDP #### [facility] [address] [place] [address] [employer] Architect: Alfred Chirinos MD Urea nitrogen [Mass/Vol] 6 mg/dL Normal 6-20 [facility] Comment on above: Performed By: #### C P, BHCG, CDP #### [facility] [address] [place] [address] [employer] Architect: Alfred Chirinos MD HCG, Quanton 02-01-2024 HCG, Quant 6123.0 mIU/mL High <5 [facility] Comment on above: Result Comment: Non-preg premeno <=5 Postmeno <=8 Male <=3 If HCG results do not concur with clinical observations, additional testing to confirm results is recommended. Performed By: #### C P, BHCG, CDP #### [facility] [address] [place], [place] [id number] [employer] Architect: Alfred Chirinos MD Urinalysis, Routineon 2023 Bilirubin, SemiQt,Ur Negative Normal NEG [facility] Comment on above: Performed By: #### U A #### [facility] [address] [place], [place] 3403190 [employer] Architect: Alfred Chirinos MD Blood, Urine Negative Normal NEG [facility] Comment on above: Performed By: #### U A #### [facility] [address] [place], [place] [address]090 [employer] Architect: Alfred Chirinos MD Clarity (U) Clear Normal CLEAR [facility] Comment on above: Performed By: #### U A #### [facility] [address] [place], [place] 9389590 [employer] Architect: Alfred Chirinos MD Color (U) Yellow Normal YEL [facility] Comment on above: Performed By: #### U A #### [facility] [address] [place], [place] 829[address] [employer] Architect: Alfred Chirinos MD Comment Normal [facility] Comment on above: Performed By: #### U A #### [facility] [address] [place], [place] 5872390 [employer] Architect: Alfred Chirinos MD Glucose Ql (U) Negative Normal NEG [facility] Comment on above: Performed By: #### U A #### [facility] [address] [place], [place] [address]84[address] [employer] Architect: Alfred Chirinos MD Ketones Ql (U) Negative Normal NEG [facility] Comment on above: Performed By: #### U A #### [facility] [address] [place] [address] [employer] Architect: Alfred Chirinos MD Leukocyte esterase Test strip Ql (U) Negative Normal NEG [facility] Comment on above: Performed By: #### U A #### [facility] [address] [place], [place] 2777090 [employer] Architect: Alfred Chirinos MD Nitrite,Ur Negative Normal NEG [facility] Comment on above: Performed By: #### U A #### [facility] [address] [place], [place] 14128[address] [employer] Architect: Alfred Chirinos MD PH,Ur 7.0 Normal 5.0-8.0 [facility] Comment on above: Performed By: #### U A #### [facility] [address] [place] [address] [employer] Architect: Alfred Chirinos MD Protein Ql (U) Negative Normal NEG [facility] Comment on above: Performed By: #### U A #### [facility] [address] [place] [address] [employer] Architect: Alfred Chirinos MD Spec. [place],Ur 1.010 Normal 1.005-1.[address] [facility] Comment on above: Performed By: #### U A #### [facility] [address] [place] [address] [employer] Architect: Alfred Chirinos MD Urobilinogen,Ur Normal Normal 0.0-1.0 [facility] Comment on above: Performed By: #### U A #### [facility] [address] [place] [address] [employer] Architect: Alfred Chirinos MD Cult,Urineon 12-15-2023 Cult,Urine Specimen Description .URINE, MIDSTREAM Culture NO SIGNIFICANT GROWTH Report Status FINAL 12/15/2023 Normal [facility] Comment on above: Performed By: #### U RC #### [address] [address] [employer] Architect: Kiko Ortega MD [facility] [address] [place], [place] 2104990 [employer] Architect: Alfred Chirinos MD Urinalysis, Routineon 2023 Bilirubin, SemiQt,Ur Negative Normal NEG [facility] Comment on above: Performed By: #### U A, UMICAO #### [facility] [address] [place] [address] [employer] Architect: Alfred Chirinos MD Blood, Urine Negative Normal NEG [facility] Comment on above: Performed By: #### U A, UMICAO #### [facility] [address] [place] [address] [employer] Architect: Alfred Chirinos MD Clarity (U) Clear Normal CLEAR [facility] Comment on above: Performed By: #### U A, UMICAO #### [facility] [address] [place], [place] [id number] [employer] Architect: Alfred Chirinos MD Color (U) Yellow Normal L [facility] Comment on above: Performed By: #### U A, UMICAO #### [facility] [address] [place] [address] [employer] Architect: Alfred Chirinos MD Comment Normal [facility] Comment on above: Performed By: #### U A, UMICAO #### [facility] [address] [place] [address] [employer] Architect: Alfred Chirinos MD Glucose Ql (U) Negative Normal NEG [facility] Comment on above: Performed By: #### U A, UMICAO #### [facility] [address] [place] [address] [employer] Architect: Alfred Chirinos MD Ketones Ql (U) Negative Normal NEG [facility] Comment on above: Performed By: #### U A, UMICAO #### [facility] [address] [place], [place] 0201990 [employer] Architect: Alfred Chirinos MD Leukocyte esterase Test strip Ql (U) 2+ Abnormal NEG [facility] Comment on above: Performed By: #### U A, UMICAO #### [facility] [address] [place] [address] [employer] Architect: Alfred Chirinos MD Nitrite,Ur Negative Normal NEG [facility] Comment on above: Performed By: #### U A, UMICAO #### [facility] [address] [place] [address] [employer] Architect: Alfred Chirinos MD PH,Ur 6.0 Normal 5.0-8.0 [facility] Comment on above: Performed By: #### U A, UMICAO #### [facility] [address] [place] [address] [employer] Architect: Alfred Chirinos MD Protein Ql (U) TRACE Abnormal NEG [facility] Comment on above: Performed By: #### U A, UMICAO #### [facility] [address] [place] [address] [employer] Architect: Alfred Chirinos MD Spec. [place],Ur 1.015 Normal 1.005-1.[address] [facility] Comment on above: Performed By: #### U A, UMICAO #### [facility] [address] [place] [address] [employer] Architect: Alfred Chirinos MD Urobilinogen,Ur Normal Normal 0.0-1.0 [facility] Comment on above: Performed By: #### U A, UMICAO #### [facility] [address] [place] [address] [employer] Architect: Alfred Chirinos MD Urinalysis,Microon 4 ----- Normal [facility] Comment on above: Performed By: #### U A, UMICAO #### [facility] [address] [place], [place] 833[address]90 [employer] Architect: Alfred Chirinos MD Epithelial cells LM Ql (Urine sed) 0 TO 2 Normal [facility] Comment on above: Performed By: #### U A, UMICAO #### [facility] [address] [place], [place] 0800190 [employer] Architect: Alfred Chirinos MD Urine RBC's 0 TO 2 Normal 0-2 [facility] Comment on above: Performed By: #### U A, UMICAO #### [facility] [address] [place], [place] 6043090 [employer] Architect: Alfred Chirinos MD Urine WBC's 2 TO 5 Normal 0 [facility] Comment on above: Performed By: #### U A, UMICAO #### [facility] [address] [place], [place] 702[address]90 [employer] Architect: Alfred Chirinos MD [facility] 11-14-2023 L Specimen: [id number] Received: 11/17/23 Status: SAEED Trevino Num: [id number] Spec Type: Surgical Subm Dr: Julius Crockett Tissues: A Products of Conception - Spontaneous or Missed (POC) Procedures: HE/3, Gross/Micro L4 Age/ Patient Sex Location Account Attending Physician Roque Pierson LABELL [id number] Julius Crockett SPEC NUM: [id number] RECD: 11/17/23 STATUS: SAEED REPhi NUM: [id number] IAN: 11/14/[address]: Julius Crockett ENTERED: 11/17/23 [facility]: Kelly Chakraborty SPEC TYPE: Surgical DEPT: LEENA ZAVALETA ORDERED: [...] are identified. Membranes and decidua are identified.. Psychologist Social sections are submitted in three cassettes labeled A1-A3. CPT Codes 99431 Specimen: [id number] Received: 11/17/23 Status: SAEED Trevino Num: [id number] Spec Type: Surgical Subm Dr: Julius Crockett Tissues: A Products of Conception - Spontaneous or Missed (POC) Procedures: JOANA/Corina, Gross/Micro L4 Patient: Roque Pierson [id number] (Continued) Signed (signature on file) Patience Rae MD 11/18/23 1429 [facility] Auto Diffon 06-05-2023 Basophils/100 WBC (Bld) 0.7 % Normal 0.0-2.0 [facility] Comment on above: Order Comment: Order Added by Discern Expert. Result Comment: Ian ection date/time has been modified to: 16:41:00. Previous collection date/time: 16:48:00. Performed By: #### 2 916641, [id number], 6544524, 0924389 ####[facility] [address] [place] [address] Basophils/Leukocytes Auto (Bld) [Pure # fraction] 0.0 E9/L Normal 0.0-0.2 [facility] Comment on above: Order Comment: Order Added by Discern Expert. Result Comment: Ian ection date/time has been modified to: 16:41:00. Previous collection date/time: 16:48:00. Performed By: #### 2 895689, [id number], 8602437, 0259799 ####[facility] [address] [place] [address] Eosinophils/100 WBC (Bld) 1.0 % Normal 0.0-8.0 [facility] Comment on above: Order Comment: Order Added by Discern Expert. Result Comment: Ian ection date/time has been modified to: 16:41:00. Previous collection date/time: 16:48:00. Performed By: #### 2 659588, [id number], 4085568, 0450534 ####[facility] [address] [place] [address] Eosinophils/Leukocyte s Auto (Bld) [Pure # fraction] 0.1 E9/L Normal 0.0-0.5 [facility] Comment on above: Order Comment: Order Added by Discern Expert. Result Comment: Ian ection date/time has been modified to: 16:41:00. Previous collection date/time: 16:48:00. Performed By: #### 2 482086, 75066168, 6741668, 9855144 ####[facility] [address] [place] [address] Lymphocytes/100 WBC (Bld) 19.4 % Normal 14.0-50.0 [facility] Comment on above: Order Comment: Order Added by Discern Expert. Result Comment: Ian ection date/time has been modified to: 16:41:00. Previous collection date/time: 16:48:00. Performed By: #### 2 571396, 60990168, 0316850, 0700790 ####[facility] [address] [place] [address] Lymphocytes/Leukocyte s Auto (Bld) [Pure # fraction] 1.2 E9/L Normal 1.0-4.0 [facility] Comment on above: Order Comment: Order Added by Discern Expert. Result Comment: Ian ection date/time has been modified to: 16:41:00. Previous collection date/time: 16:48:00. Performed By: #### 2 278852, 88422441, 8319113, 5382825 ####[address] [place] [address] Monocytes/100 WBC (Bld) 8.8 % Normal 4.0-14.0 [facility] Comment on above: Order Comment: Order Added by Discern Expert. Result Comment: Ian ection date/time has been modified to: 16:41:00. Previous collection date/time: 16:48:00. Performed By: #### 2 094745, 04668409, 4117369, 6136924 ####[facility] [place] [address] Monocytes/Leukocytes Auto (Bld) [Pure # fraction] 0.5 E9/L Normal 0.2-1.0 [facility] Comment on above: Order Comment: Order Added by Discern Expert. Result Comment: Ian ection date/time has been modified to: 16:41:00. Previous collection date/time: 16:48:00. Performed By: #### 2 407666, 18601736, 9913187, 7063537 ####[facility] [address] [place] [address] Neutrophils/100 WBC (Bld) 70.1 % Normal 36.0-75.0 [facility] Comment on above: Order Comment: Order Added by Discern Expert. Result Comment: Ian ection date/time has been modified to: 16:41:00. Previous collection date/time: 16:48:00. Performed By: #### 2 416927, 05062318, 7035477, 0761328 ####[address] [place] [address] Neutrophils/Leukocyte s Auto (Bld) [Pure # fraction] 4.2 E9/L Normal 2.0-7.5 [facility] Comment on above: Order Comment: Order Added by Discern Expert. Result Comment: Ian ection date/time has been modified to: 16:41:00. Previous collection date/time: 16:48:00. Performed By: #### 2 985946, 73662165, 1928125, 6950014 ####[facility] [address] [place] [address] [facility] 06-05-2023 Creatinine [Mass/Vol] 0.7 mg/dL Normal 0.5-1.3 [facility] Comment on above: Performed By: #### 2 438241, 36658020, 8846938, 1863911 ####[facility] [address] [place] [address] Urea nitrogen [Mass/Vol] 5 mg/dL Normal 5-21 [facility] Comment on above: Performed By: #### 2 617501, 73811470, 7121184, 3144813 ####[facility] [address] [place] [address] Urea nitrogen/Creatinine [Mass ratio] 7 No Units Low 10-20 [facility] Comment on above: Performed By: #### 2 889851, 64316603, 3548291, 7488324 ####[facility] [address] [place] [address] Anion gap [Moles/Vol] 9 mmol/L Normal 6-16 [facility] Comment on above: Performed By: #### 2 792661, 80780922, 6409637, 7022673 ####[facility] [address] [place] [address] Calcium [Mass/Vol] 9.3 mg/dL Normal 8.9-11.1 [facility] Comment on above: Performed By: #### 2 176018, 20438426, 0964815, 5440230 ####[facility] [address] [place] [address] Chloride [Moles/Vol] 110 mmol/L Normal 101-111 [facility] Comment on above: Performed By: #### 2 137099, 61661265, 2336827, 9425004 ####[facility] [address] [place] [address] CO2 [Moles/Vol] 26 mmol/L Normal 21-31 [facility] Comment on above: Performed By: #### 2 655215, 90714994, 9670719, 7807088 ####[facility] [address] [place] [address] Glucose [Mass/Vol] 106 mg/dL Normal 55-199 [facility] Comment on above: Result Comment: If t his glucose result represents a fasting glucose, interpretation should refer to the following reference range: 55-99 mg/dL Performed By: #### 2 524733, 27084545, 3952024, 3510631 ####[facility] [address] [place] [address] Potassium [Moles/Vol] 3.9 mmol/L Normal 3.5-5.3 [facility] Comment on above: Performed By: #### 2 769400, 18954157, 5911466, 5647944 ####[facility] [address] [place] [address] Sodium [Moles/Vol] 141 mmol/L Normal 135-145 [facility] Comment on above: Performed By: #### 2 329710, 05941075, 0739917, 2268277 ####[facility] [address] [place] [address] CBC w/ Auto Diffon Erythrocyte distribution width (RBC) [Ratio] 13.9 % Normal 10.9-14.2 [facility] Comment on above: Result Comment: Ian ection date/time has been modified to: 16:41:00. Previous collection date/time: 16:48:00. Performed By: #### 2 296105, 99087291, 1769268, 1853462 ####[facility] [address] [place] [address] Hematocrit (Bld) [Volume fraction] 38.4 % Normal 34.0-46.0 [facility] Comment on above: Result Comment: Ian ection date/time has been modified to: 16:41:00. Previous collection date/time: 16:48:00. Performed By: #### 2 573038, 74983165, 2522568, 0396150 ####[facility] [address] [place] [address] Hemoglobin (Bld) [Mass/Vol] 12.8 g/dL Normal 12.0-16.0 [facility] Comment on above: Result Comment: Ian ection date/time has been modified to: 16:41:00. Previous collection date/time: 16:48:00. Performed By: #### 2 664565, 82780158, 6545599, 4402391 ####[facility] [address] [place] [address] MCH (RBC) [Entitic mass] 27.6 pg Normal 27.0-34.0 [facility] Comment on above: Result Comment: Ian ection date/time has been modified to: 16:41:00. Previous collection date/time: 16:48:00. Performed By: #### 2 668030, 97700271, 2174738, 3771451 ####[facility] [address] [place] [address] MCHC (RBC) [Mass/Vol] 33.3 g/dL Normal 31.4-36.0 [facility] Comment on above: Result Comment: Ian ection date/time has been modified to: 16:41:00. Previous collection date/time: 16:48:00. Performed By: #### 2 407857, 16343841, 1843072, 3360470 ####[facility] [address] [place] [address] MCV (RBC) [Entitic vol] 82.7 fL Normal 80.0-100.0 [facility] Comment on above: Result Comment: Ian ection date/time has been modified to: 16:41:00. Previous collection date/time: 16:48:00. Performed By: #### 2 155772, 15214907, 2083916, 0713245 ####[facility] [address] [place] [address] Platelet mean volume (Bld) [Entitic vol] 7.8 fL Normal 6.4-10.8 [facility] Comment on above: Result Comment: Ian ection date/time has been modified to: 16:41:00. Previous collection date/time: 16:48:00. Performed By: #### 2 346756, 61702376, 7557549, 5712235 ####[facility] [address] [place] [address] Platelets (Bld) [#/Vol] 271.0 E9/L Normal 150.0-500.0 [facility] Comment on above: Result Comment: Ian ection date/time has been modified to: 16:41:00. Previous collection date/time: 16:48:00. Performed By: #### 2 717416, 99102626, 2320793, 8132019 ####[facility] [address] [place] [address] RBC (Bld) [#/Vol] 4.6 E12/L Normal 4.3-5.9 [facility] Comment on above: Result Comment: Ian ection date/time has been modified to: 16:41:00. Previous collection date/time: 16:48:00. Performed By: #### 2 257878, 25093306, 4454657, 6460372 ####[facility] [address] [place] [address] WBC corrected for nucl RBC Auto (Bld) [#/Vol] 6.1 E9/L Normal 4.0-11.0 [facility] Comment on above: Result Comment: Ian ection date/time has been modified to: 16:41:00. Previous collection date/time: 16:48:00. Performed By: #### 2 295388, 62864404, 3837501, 6804292 ####[facility] [address] [place] [address] CHEMISTRYOrdered By: SYSTEM SYSTEM on 06-05-2023 Anion gap [Moles/Vol] 9 mmol/L Normal 6 - 16 mEq/L [facility] Calcium [Mass/Vol] 9.3 mg/dL Normal 8.9 - 11. 1 mg/dL [facility] Chloride [Moles/Vol] 110 mmol/L Normal 101 - 1 11 mmol/L [facility] CO2 [Moles/Vol] 26 mmol/L Normal 21 - 31 mmol/L [facility] Creatinine [Mass/Vol] 0.7 mg/dL Normal 0.5 - 1.3 mg/dL [facility] Remisol GFR/1.73 sq M.predicted among non-blacks MDRD (S/P/Bld) [Vol rate/Area] 126 mL/min/1.73 m2 Normal >=59mL/min/1. 73 m2 [facility] Chem S Comment on above: Interpretive Data: C hronic kidney disease could be indicated at eGFR's of less than 60 mL/min/1.73m2. Kidney failure is indicated at less than 15 mL/min/1.73m2. Glucose [Mass/Vol] 106 mg/dL Normal 55 - 199 mg/dL [facility] Remisol Comment on above: Interpretive Data: I f this glucose result represents a fasting glucose, interpretation should refer to the following reference range: 55-99 mg/dL Potassium [Moles/Vol] 3.9 mmol/L Normal 3.5 - 5.3 mmol/L [facility] Remisol Sodium [Moles/Vol] 141 mmol/L Normal 135 - 145 mmol/L [facility] Remisol Urea nitrogen [Mass/Vol] 5 mg/dL Normal 5 - 21 mg/dL [facility] Remisol Urea nitrogen/Creatinine [Mass ratio] 7 mg/mg Low 10 - [address] Head or Brain w/o Contras [...] DO Transcribed by: KG Technologist: KIRSTIE [facility] Consent for Treatmenton 05-25 Consent for Treatment [id number] #1.00TIFF Normal [facility] Discharge Instructionson Discharge Instructions [id number] #1.00TIFF Normal [facility] ED Clinical Summaryon 2022 ED Clinical Summary [place] [id number] ED Clinical Summary Person Information Name: ROQUE PIERSON/[facility] Age: 22 Years : 2000 Sex: Female Language: Togolese PCP: Delfin Urbano MD Marital Status: Single [...] 18:41:46 06/05/2023 18:41:46 06/05/2023 18:41:46 [id number] [facility] [id number] PHYS DOC NOTES: MEDICAL INFORMATION: Prescriptions Given: [...] Follow up: With: Address: When: Delfin Urbano [address] [place] [address], [facility] [place] [address] Business (1) [...] or worsening symptoms. DIAGNOSIS: Headache; Nauseous Normal [facility] ED Note-Physicianon 06-05-20 ED Note-Physician Basic Information [...] and Complexity of Problems Differential Diagnosis: [] [facility] Data External documents reviewed: Not applicable [...] eGFR Influenza A&B Ag Rapid COVID Antigen ([facility]) U Beta Hcg Qual Disposition Plan Patient Discharge Condition Stable Discharge Disposition To home Discharge Prescription List Prescriptions No active prescription medications Follow-up With When Contact Information Delfin Alfarovanita In 3 days 06/08/2023 EDT [address] [place] [address]- Business (1) Additional Instructions: Call the office [...] or worsening (more content not included)... Normal [facility] Comment on above: Result Comment: Elec tronically [...] with your condition: Managing pain ? Take bsqa-rxa-rqpuqrp and prescription medicines only as told by [...] provider. Document Revised: 01/09/2022 Document Reviewed: 01/09/2022 [employer] Patient Education ? 2022 [employer] Normal [facility] ED Patient Summaryon 023 ED Patient Summary [place] [id number] Patient Discharge Instructions Person Information Name: ROQUE PIERSON Age: 22 Years Arrival Date: 06/05/2023 15:20:08 Discharge Diagnosis: Headache; Nauseous Primary Care Physician: Delfin Urbano MD Provider Information Primary Provider: Fercho Jaime DO Advanced Rn Recovery:Víctor Lind PA-C The exam and treatment you received in the Emergency Department were for an urgent problem and are not intended as complete care. It is important that you follow up with a doctor, nurse practitioner, or physician?s costumer assistant for ongoing care. If your symptoms [...] Instructions: With: Address: When: Delfin Urbano [address] [facility], [address] [place] [id number] Business (1) In 3 days 06/08/2023 Comments: [...] opioids can be used to help relieve intckush-zr-osyksi pain and are often prescribed following a [...] ? Safe (more content not included)... Normal [facility] HEMATOLOGYOrdered By: SYSTEM SYSTEM on 06-05-2023 Basophils/100 WBC (Bld) 0.7 % Normal 0.0 - 2.0 % [facility] HemeAutoSS Comment on above: Result Comment: Ian ection date/time has been modified to: 16:41:00. Previous collection date/time: 16:48:00. Basophils/Leukocytes Auto (Bld) [Pure # fraction] 0.0 E9/L Normal 0.0 - 0.2 E9/L [facility]eAutoSS Comment on above: Result Comment: Ian ection date/time has been modified to: 16:41:00. Previous collection date/time: 16:48:00. Eosinophils/100 WBC (Bld) 1.0 % Normal 0.0 - 8.0 % [facility] HemeAutoSS Comment on above: Result Comment: Ian [...] [facility] Comment on above: Result Comment: Ain ection date/time has been modified to: 16:41:00. [...] 7.8 fL Normal 6.4 - 10.8 fL FT [facility]SS Comment on above: Result Comment: Ian [...] Previous collection date/time: 16:48:00. Influenza A&B Agon 3 Influenzae A Ag Negative Normal Negative [facility] Comment on above: Performed By: #### 2 [id number], [id number], [id number], [id number], [id number], [id number], [id number] #### [facility] [address] [place] [address] Influenzae B Ag Negative Normal Negative [facility] Comment on [...] days after vaccination. Performed By: #### 2 [id number], [id number], [id number], 7022504, [id number], [id number], [id number] #### [facility] [address] [place] [address] MICRO OTHER TESTSOrdered By: Kirsten Faustin on 06-05-2023 Influenzae A Ag Negative (06/05/23 4:52 PM) Normal Negative [facility] Man Sero Influenzae B Ag Negative 1 (06/05/23 4:52 PM) Normal Negative [facility]ero Comment on above: Interpretive Data: T [...] NEG Ctl Pass (06/05/23 4:52 PM) Normal [facility] Man Sero Rapid COV Int POS Ctl Pass (06/05/23 4:52 PM) Normal [facility] SARS-CoV+SARS-CoV-2 (COVID-19) Ag IA.rapid Ql (Resp) Not Detected 24 (06/05/23 4:52 PM) Normal Not Detected [facility] Comment on above: Interpretive Data: T he [employer] Veritor System for Rapid Detection of SARS-CoV-2 [...] other viruses or pathogens; and, in the [facility], this test is only authorized for the duration of the declaration that circumstances exist justifying the authorization of emergency use of in vitro diagnostics for detection and/or diagnosis of the virus that causes COVID-19 under Section 564(b)(1) of the Act, 21 U.S.C. 360bbb-3(b)(1), unless the authorization is terminated or revoked sooner. Rapid COVID Antigen (MC)on 06-05-2023 Rapid COV Int NEG Ctl Pass Normal [facility] Comment on above: Performed By: #### 2 [id number], [id number], 1546624, 4855417, [id number], [id number], [id number] #### [facility] [address] [place] [address] Rapid COV Int POS Ctl Pass Normal [facility] Comment on above: Performed By: #### 2 [id number], 6680390, 7928293, 9160759, 29557654, 7858098, 7342954 #### [facility] [address] [place] [address] SARS-CoV+SARS-CoV-2 (COVID-19) Ag IA.rapid Ql (Resp) Not detected Normal Not Detected [facility] Comment on above: Result Comment: The [employer]itor? System for Rapid Detection of SARS-CoV-2 is [...] other viruses or pathogens; and, in the [facility], this test is only authorized for the duration of the declaration that circumstances exist justifying the authorization of emergency use of in vitro diagnostics for detection and/or diagnosis of the virus that causes COVID-19 under Section 564(b)(1) of the Act, 21 U.S.C. ? 360bbb-3(b)(1), unless the authorization is terminated or revoked sooner. Performed By: #### 2 [id number], 0762449, 7629511, 8642547, [id number], 8574585, [id number] #### [facility] [address] [place] [address] SEROLOGYOrdered By: Kirsten amor on 06-05-2023 HCG.beta subunit (U) [Moles/Vol] Negative Normal [facility] Man Sero U BetaHcg Qualon 06-05-2023 HCG.beta subunit (U) [Moles/Vol] Negative Normal [facility] Comment on above: Performed By: #### 2 563793, 1815670, 3252370, 6113139, 87305641, 6114532, 1053125 #### [facility] [address] [place] [address] eGFRon 06-05-2023 GFR/1.73 sq M.predicted among non-blacks MDRD (S/P/Bld) [Vol rate/Area] 126 mL/min/1.73 m2 Normal >=59 [facility] Comment on above: Order Comment: Order added by Discern Expert. Result Comment: Cable Engineer emil kidney disease could be indicated at eGFR's of less than 60 mL/min/1.73m2. Kidney failure is indicated at less than 15 mL/min/1.73m2. Performed By: #### 2 [id number], [id number], 0791744, [id number] ####[facility] [address] [place] [address] Cult,Urineon 03-25-2023 Cult,Urine Specimen Description .URINE, MIDSTREAM Culture NO SIGNIFICANT GROWTH Report Status FINAL 03/25/2023 Normal [facility] Comment on above: Performed By: #### U RC #### [facility] [address] [place], [place] [id number] Filenet Architect: Kiko Ortega MD [facility] [address] [place] [address] Filenet Architect: Alfred Chirinos MD Urinalysis, Routineon 2022 Bilirubin, SemiQt,Ur Negative Normal NEG [facility] Comment on above: Performed By: #### U TONYO UA #### [facility] [address] [place] [address] Filenet Architect: Alfred Chirinos MD Blood, Urine Negative Normal NEG [facility] Comment on above: Performed By: #### U TONYO, UA #### [facility] [address] [place] [address] Filenet Architect: Alfred Chirinos MD Clarity (U) Clear Normal CLEAR [facility] Comment on above: Performed By: #### U TONYO, UA #### [facility] [address] [facility] [place] [address] Filenet Architect: Alfred Chirinos MD Color (U) Yellow Normal YEL [facility] Comment on above: Performed By: #### U TONYO, UA #### [facility] [address] [place], [place] [id number] Filenet Architect: Alfred Chirinos MD Comment Normal [facility] Comment on above: Performed By: #### U MICAO, UA #### [facility] [address] [place], [place] [id number] Filenet Architect: Alfred Chirinos MD Glucose Ql (U) Negative Normal NEG [facility] Comment on above: Performed By: #### U MICAO, UA #### [facility] [address] [place], [place] [id number] Filenet Architect: Alfred Chirinos MD Ketones Ql (U) TRACE Abnormal NEG [facility] Comment on above: Performed By: #### U MICAO, UA #### [facility] [address] [place] [address] Filenet Architect: Alfred Chirinos MD Leukocyte esterase Test strip Ql (U) 1+ Abnormal NEG [facility] Comment on above: Performed By: #### U MICAO, UA #### [facility] [address] [place] [address] Filenet Architect: Alfred Chirinos MD Nitrite,Ur Negative Normal NEG [facility] Comment on above: Performed By: #### U MICAO, UA #### [facility] [address] [place] [address] Filenet Architect: Alfred Chirinos MD PH,Ur 6.5 Normal 5.0-8.0 [facility] Comment on above: Performed By: #### U MICAO, UA #### [facility] [address] [place] [address] Filenet Architect: Alfred Chirinos MD Protein Ql (U) TRACE Abnormal NEG [facility] Comment on above: Performed By: #### U MICAO, UA #### [facility] [address] [place] [address] Filenet Architect: Alfred Chirinos MD Spec. [place],Ur 1.015 Normal 1.005-1.[address] [facility] Comment on above: Performed By: #### U MICAO, UA #### [facility] [address] [place], [place] [id number] Filenet Architect: Alfred Chirinos MD Urobilinogen,Ur Normal Normal 0.0-1.0 [facility] Comment on above: Performed By: #### U MICAO, UA #### [facility] [address] [place] [address] Filenet Architect: Alfred Chirinos MD Urinalysis,Microon 3 ----- Normal [facility] Comment on above: Performed By: #### U MICAO, UA #### [facility] [address] [place], [place] [id number] Filenet Architect: Alfred Chirinos MD Bacteria RARE Abnormal NONE [facility] Comment on above: Performed By: #### U MICAO, UA #### [facility] [address] [place], [place] [id number] Filenet Architect: Alfred Chirinos MD Urine RBC's 0 TO 2 Normal 0-2 [facility] Comment on above: Performed By: #### U MICAO, UA #### [facility] [address] [place] [address] Filenet Architect: Alfred Chirinos MD Urine WBC's 0 TO 2 Normal 0 [facility] Comment on above: Performed By: #### U MICAO, UA #### [facility] [address] [place], [place] [id number] Filenet Architect: Alfred Chirinos MD US PREG ANATOMY SINGLEon [...] JULIUS RICKS Date: 2022-12-08 22:36 Normal [facility] AFP MATERNAL FOR SPINA BIFID Aon 12-07-2022 AFP MoM 1.38 Normal [facility] Comment on above: Performed By: #### A FPMAT #### [facility] [address] [place] [address] [address] Tasha Whalen AFP Value 88.5 ng/mL Normal [facility] Comment on above: Performed By: #### A FPMAT #### [facility] [address] [place] [address] [address] Tasha Whalen AFP, Serum for Spina Bifida Report Normal [facility] Comment on above: Performed By: #### A FPMAT #### [facility] [address] [place] [address] [address] Tasha Whalen Comment Comment Normal [facility] Comment on above: Result Comment: Nakia Lopez, Ph.D., [facility] Director . References: Available Upon Request. . Multiples Of Median Cutoffs For AFP Elevations Contreras 2.5 Black 2.8 IDD 2.0 Twins 4.5 Abbreviation Definitions IDD - Insulin Dep Diabetes OSBR - Open Spina Bifida Risk . For further inquiries contact [facility] at [phone]. . This test was developed and its performance characteristics determined by [employer]. It has not been cleared or approved by the Food and Drug Administration. Performed By: #### A FPMAT #### [facility] [address] [place] [address] [address] Tasha Whalen Gest Age Collection Date 21.0 weeks Normal [facility] Comment on above: Performed By: #### A FPMAT #### [facility] [address] [place] [address] Dr. Tasha Whalen Gestat, Age Based on Ultrasound Normal [facility] Comment on above: Result Comment: 17.0 on 11/07/2022 Recalculations are not recommended when gestational dating by LMP and ultrasound are within 10 days. Performed By: #### A FPMAT #### [facility] [address] [place] [address] [address] Tasha Whalen Insulin Dep Diabetes No Normal [facility] Comment on above: Performed By: #### A FPMAT #### [facility] [address] [place] [address] Dr. Tasha Whalen Interpretation Comment Normal [facility] Comment on above: Result Comment: Inte [...] Customer Services to discuss available options. The [employer] recommends amniocentesis be offered to women age 35 and older. Performed By: #### A FPMAT #### [facility] [address] [place] [address] Dr. Tasha Whalen [age] Normal [facility] Comment on above: Performed By: #### A FPMAT #### [facility] [address] [place] [address] [address] Tasha Whalen Multiple Gestation No Normal [facility] Comment on above: Performed By: #### A FPMAT #### [facility] [address] [place] [address] [address] Tasha Whalen OSBR Risk 1 [place] [address] [facility] Comment on above: Performed By: #### A FPMAT #### [facility] [address] [place] [address] [address] Tasha Whalen PDF . [facility] Comment on above: Performed By: #### A FPMAT #### [facility] [address] [place] [address] Dr. Tasha Whalen Race [facility] Comment on above: Performed By: #### A FPMAT #### [facility] [address] [place] [address] [address] Tasha Whalen Test Results: Negative [facility] Comment on above: Performed By: #### A FPMAT #### [facility] [address] [place] [address] Dr. Tasha Whalen Coding Summary.on 12-03-2022 Coding Summary. CD:[id number] Ww+PGhlYWQ+AP1SIUGhA 62ezCQvqJ7qA8RXYCdCF ywgQVBQTElOSyIgbmFtZ W6dxSDxULNa IC8+KM3oMTPuXujtpGMg h4J9iVO5Z74ofk7jBJvi tGH9WVZlYzKklxinc6wk yLy8RPqyOgsrZtSq XNLjhN83UIP1vZ56Hg88 tAAqeJOhw2yuhLd4RqOx GWUyDDS4yCbyATcee4Kd EUAgD10shUKfn2Z1 IGNvbGxhcHNlOyBlbXB0 mK4mDEslvgehd7pnvdoo Sxs6hd54hYWiu6V5sGL8 H8GvdgZ4GXJixZDj EorqgXDTkQ5awuwnt3rc qzdgUwJgRILfEHt9ZXb8 NRBetGphDsEkKH20SPN3 RQDpxjFoA8GkRDEm zYqbCeN5m8T2Fg9CK5CU OvroL9ULFLDMCXpzgFS+ RA02jv15H1XkDagzYnq0 FCIbQDV9nOH1uD4b BSWwFGeql5N2rZZ1V7Cr uaCtgl1ym4tfILLfNJuz K69naMBai6E8UIJpwBZ2 ESJkqSlkSqTdvN35 Oyc+CHXbjAqew0IyRptd r1wxo7qdvXn1LrffCADu cpTqfKmdWES4g5UwAx0v OIQheTS2fFT2qQ1k HtUiIeK4UAwjC461RxGq lKXjPnqhG67gV4CwbOJ+ ZDIiGdg6NKByiBycEA1t L0KpYCHdkngfuFLv vCrrPU3vKIDfupuoMHPh uF3oVZWkT5d9TePbKyR3 EGcvS9QbKBVlxpldAc24 cD0eXwEiVzR9MZck Q6BtaeH8ZKZlqEXvRRyu JIF6L25lk8H7BBSoRGRp TRO7bTE7hF4shRukkxpp bGVmdDsgdmVydGlj RKhsLStbW612DHZuxOhm PkNvZGluZyBEYXRlOiAg MDQvMTEvMjAyMzwvdGQ+ CWAyKQL1qGevFPFp oPRgDVawJb5swJjaqHjo TK1pCKFccdyzDTHzkW0c UNPtvTYfnUpjUI5jHBVd grbwb263OaSyELI0 JJGuxOEgH4AouV0aPiZb GWKsFIMwQ4ExoFLxWCum V029XYclXzT3HXIjqdKa B3TmUZAycDakKfA2 e1F7Xm7Ff5BishzfU3Cb qLHqApHsFwjmSEj1U7Qr PjwvdHI+AD93CJAvNT36 NHt2UYB3cVzuTIbd DWPnR7OydF6fMhPyPHBq ZGRkOyc+PHRhYmxlIHdp ZHRoPScxMDAlJyBzdHls QR9qCq1jLSKgDOLa gCwugFXfHdIjv8bvGCMn TXviAS8ibSdwZ3TyiFD3 WJOuz7v3Vu12T92rJ6Gm dXA+XYCqjVH2gZA0 jO0xGkAdKiA6RSvlB396 DhCnfHIzTgpor3mie0ue lIm6TqE2XIHtslMsjAme JOG2v6XaLd49V69e IHdpZHRoPSIxNSUiIHZh mSnrwa6hyC9aGw3+PGNv pZM5qXV1sV5uLlTfGuS9 PKalR930XeUrvRXw Icuaf5xkx4sswTb2KwDe MXTdlxHkzUdyEEW2z0Rf Vd01I5DsxRfzy7QtMex1 nk39jKHbp6J0eNB1 F5ZjVRIzxamluHMnxCcn RQ9vSFKvbtfoDFQcgV8u BMWcP1c1SkIeScB6NXcz I0PsquA5FASmxXMp CTKrkTAYkY5zxklaz7cv hlnxQzSuGWTkUPl2CAm0 DTAlrPlbVuAhLDN1OjC9 JFS0tUZinX3yiLhg yxoewF9vHoy+BNU4pVIr bAGCLG8jFsesfBT+PHRk HKR2jHjfQVoaGJSozT7y DJMgT1p5WnBaNtW4 YLxyM1FjqmK2AHZdmOGp ICScgYCEaY6mjkfsd3ib xvtuIyXsCLDsACn0DOd4 LWFsaWduOiBsZWZ0 DgQ5HBE9uUGumX7wgSsj brrpnN3kQxw+QmlydGgg KDI3SJk6H4WfMer4RYJc oMdjPU6ieHQwFDme Aq7anDqnmKftBS6jLWXy ekjsp728UmZps1pwBSOh rEReLXdbTFQ7B86ka0A1 DEHxXSEtKJP7wOT7 dX6xnEqcgarucWEpyQvj ceCjuTeeGImvMTgtB843 IMCgvNoqQxCgJPl8X5Zn Fxq9JAYkcXsiGD7e dGNpPDxhOj5msNlosSoo UG7uHLUloybdi976HlCt z0bfDNHqiLIeJBywAAI6 N22eo3S7FAEvHQNe QPT0xNP9eV7xkYuxjboz bGVmdDsgdmVydGljYWwt KHpvJ934QOYtdLnnLeEp iGg6R2EyTps3WKZg rSevLF4dqVHoJZmdTr7x qUejdOhfMG1qRGCwmiyn k893RsPrn4clXLSavWEq CSchXJP8A65ua5M3 XTXvTZTyVZC8iCU5zL6k bGlnbjogbGVmdDsgdmVy iHlpTSawOGptD831GJRo cDsnPlBhdGllbnQg MZqqQMi1P9LoScubiSM+ VJ54EPLnQY55kWTpkTUc o3nohTo3VrBjMARsVOR2 xEenRHmbr2BtPARi H83qgREjx0Z8AJAjdIql nRHlYyQqlZI4xD9oYKal vlbqs0ptghbxVvwmp7vy vp61yA93H84gSUnj ZHRoPSIzMCUiIHZhbGln vc0bvN3lJd3+PGNvbCB3 xJH1kT2sUDRrLyY7DZju A157RlVoiGSmDwmy h7nze0jciNc4QjX4RRYo mhItaBciPBX3c5OvLd94 A39qHWsrJCMnUIFyXEOk EAXruYwcjb8uzF9j Ii8+HLYhzBK6lXV5tJ0w XxNjGaI3KIvmY013NaPh eFQxRdfsH25aE4RgrSA+ AKOjYru2YEAocOpy RI6rqRYiKPhnBk3vRPH5 BjTgOiYxXRhzG7UtEMUt pgomslbbdDI2RNDzOTYi vT21Th3mxFccMPRk xMBAlA5xtccic0tqnyjw GkRjDAVdNRl0VGj6YLBt rWzwNnCeOAM2KiF0YCW8 aXWyrL9ycGkggitu hR2qO6KdNSCivpmjWe25 lC2gZyEcPiQ9DZwoSon+ X5qEX5MQVKLgJJKXZnHD TkEgTTwvdGQ+PHRk NVL8nRuvMDpaLMLqdW5k EBWfP1c8ZhWyAwH4VPbo E7SoNLYpvhisCj57bE1w TmWeRbD6VOzsB2Gr ehU6LFYfzDSwWTfnALS9 Q19wb0I8XUNgEVIjXGI3 bNB4eC8wuEaqrljyjHVd dDsgdmVydGljYWwt UNaaC826SBGiaZevJnFa CgM6HtNoGNS9R9PqPwg9 PIXicNcnEC2wmVMpIGcp Jd9meUxeiUcuMH7j OZHqzuuuGQUunP7rEXVi hGEitFsgHU1xVREwbmno n676KbXuJSE0SIYyrHKt I3YmnL0vRyXcFYVh WZQlJ6NkrMNbBSoaL020 NPveRxP5SSZnfcJnB9So BPXdkWneHxV9h5Y7If2t MSBZZWFyczwvdGQ+ GBYzXTR6aTjfODcyKZJw dW9rISBxD5f4BbEzErO5 ALzqU4NdTPSjkveePo36 dN4bScLlGlA8YAcr J0JnquV5FKEpqWKeUIoh UJI0A97mk6J6XISoNLNc NAX1uVE8cP1dwCxdbnsk bGVmdDsgdmVydGlj SFloYFchK099LSMjaWxt PkZlbWFsZTwvdGQ+PHRk HME9nCmbNNauSFPqjM0j BAFeY8n4OqCaZvI2 HZdmO5FoSYZsmeosBq18 vX1wBhAwEsG2SLlvR7Yz veP0ROTovJMzTEepVVE1 F50bd6S5OUDgXMOq BOJ1wXN0nZ7dmZpekqgf bGVmdDsgdmVydGljYWwt OEaaS225VXEmySjlTl5A IFRyaWFnZTwvdGQ+ EA29of69J2BqKeufUmr3 FRLiGCC9lCT1fD3jNAOb CGjpb4N3qNM1X3UaleGn zh7xe0iaHTAoWAsl K98heBXpr5J7NKHkrFE6 PWJhmOtfAgOmxE34Abk+ YESchHedu6FhValgx4wk k1pgpCd9CeWhKUZx syElsShgGCV9h3NxRw24 Q20jFZwwXCTiADHrRVUu DJDwlVzryl5ssQ8fOe3+ UWCkuHQ5eKU4gC4n HyNgAwP5YCpdL765XfYv pHEnOyvph7wob3upvTx4 IjIwJSIgdmFsaWduPSJ0 w6HaKz99B4JxfRtg j4BoWhg2ci33zWZya4N1 vFV5G0YxSATtosfgzYQt bJjsPP7rBFKnyyqdQTGt hV1zKGMeR3n8CiFn QqQ1HEbsH5ZttdA7MZNu bOHuSFDkgRJSzG0tifib u4zmuqrvDlFpUZYtADo9 IDo8BFUhoZavPnHi XSH6AsB4KLK9fSPhnN2q yWtfbgshxH0sTfw+UGh5 y7goeIPnJK8usDD0SO50 IK46oOYgq5S1kVJ6 R9GvVCHhcoabvcffpLG1 SXMrOLIouE76Tj6dlDym Jk1oSKXzKFX6HREeaLOj J3PrqX3xOyMlYHNu VGBgU3TzsDZoKXhrY638 UIreWsM8PTAthnGqB2Tf LBHrrKzeYlZ4o8Z6Ba9Q YG83MF74UJ52sKJy v6G3jNZ4W5YpYZKtgtxj yhctySU2BXWeACUhmW74 Gl6uaNzoWv7hCDSaHGH0 CMUhlVLfY8XwjH9f DbVsWPDnUDEnW5QjbIJv IIbbZ578MYfvOlQ5QGHp boPjD3VrREXmhXlnOyN8 c0R2Zm3PTm69JU17 OM28xWHnt7D4kKM9Y6Og SDFryhxrmznszCX4MOMn KWIqfK34Nm6nfIwrHf7d UJUpBMH2PYZjzZFb U0VrjO5bMoPiKCObBILz U8DhqTAwVCrcT836GMij SfA8KYMsstIeY4PzURAn aSpsYhE2o6K6Jt3N HZoljdf2P7NyUqzaeKO+ SB38NOBcEZ76lCTusXMs o2okvVu5QmKeZDJyQYJ5 dStpFSaog1GoLAEz X62miXFc (more content not included)... Normal [facility] Nursing Assessmenton 023 Nursing Assessment [id number] 3#1.00CD:127 [facility] Discharge Instructionson Discharge Instructions [id number] 0#1.00CD:127 [facility] Inpatient Clinical Summaryon 11-26-2022 Inpatient Clinical Summary [address] [address] Clinical Summary Person Information Name: ROQUE PIERSON/Radha Age: 22 Years : 2000 Sex: Female PCP: Delfin Urbano MD Marital Status: Single Race: White Ethnicity: Non- or Language: Togolese Visit Id: Visit Reason: LT / RT/ LOWER ABD PAIN Speciality: Acuity: Obs Enc Type: OB Triage Med Service: Obstetrics Arrival: 11/25/2022 18:17:16 Discharge: 11/25/2022 22:27:00 Dispo Type: Home (Routine DC) Address: [address] [place] [address] [id number] Provider Notes: Diagnosis: Problems Active (11/25/2022) Smoking [...] up: With: Address: When: Your doctor in [place] [phone] In 3 days 11/28/2022 Comments: Call for [...] Education Information: Round Ligament Pain; Morning Sickness, Zhdl-hp-Skzl; Second Trimester of , Reww-ic-Aqgp; Abdominal Pain During , Amzm-zi-Xjre Normal [facility] Inpatient Patient Summaryon 11-26-2022 Inpatient Patient Summary [place] [address] Patient Discharge Instructions PERSON INFORMATION Name: ROQUE [...] up: With: Address: When: Your doctor in [place] [phone] In 3 days 11/28/2022 Comments: Call for [...] Last Dose: Next Dose: [facility] Information: [facility] PATIENT EDUCATION INFORMATION Instructions: Round Ligament [...] until the pain goes away. ? Take qjbe-xpy-msikuvd and prescription medicines only as told by [...] you uri (more content not included)... Normal [facility] Insurance Correspondenceon 0 11-26-2022 Insurance Correspondence [id number] 5#1.00CD:127 [facility] Consent for Treatmenton Consent for Treatment [id number] #1.00CD:127 Normal [facility] GetWell Education Videoon [employer] Education Video Yes Patient Avoiding Infections in the Hospital Normal [facility] UA With Cult Reflexon 2022 Bacteria LM Ql (Urine sed) TRACE Normal Trace [facility] Comment on above: Performed By: #### 1 [id number] #### [facility] Laboratory [address] [place] [address] Bilirubin Ql (U) Negative Normal Negative [facility] Comment on above: Performed By: #### 1 [id number] #### [facility] [address] [place] [address] Clarity (U) CLEAR Normal Clear [facility] Comment on above: Performed By: #### 1 [id number] #### [facility] [address] [place] [address] Color (U) YELLOW Normal Yellow [facility] Comment on above: Performed By: #### 1 [id number] #### [facility] [address] [place] [address] Epithelial cells.squamous LM.HPF (Urine sed) [#/Area] 0-2 Normal 0-2 [facility] Comment on above: Performed By: #### 1 [id number] #### [facility] [address] [place] [address] Glucose Test strip (U) [Mass/Vol] Negative Normal Negative [facility] Comment on above: Performed By: #### 1 [id number] #### [facility] [address] [place] [address] Hemoglobin Ql (U) Negative Normal Negative [facility] Comment on above: Performed By: #### 1 [id number] #### [facility] [address] [place] [address] Ketones (U) [Mass/Vol] Negative Normal Negative [facility] Comment on above: Performed By: #### 1 [id number] #### [facility] [address] [place] [address] Yuba.plasma/Lithiu m.RBC (Bld) [Mass ratio] 0-3 Normal 0-3 [facility] Comment on above: Performed By: #### 1 [id number] #### [facility] [address] [place] [address] Nitrite Ql (U) Negative Normal Negative [facility] Comment on above: Performed By: #### 1 [id number] #### [facility] [address] [place] [address] pH (U) 7.5 [pH] Invalid Interpretation Code 5.0-9.0 [facility] Comment on above: Performed By: #### 1 [id number] #### [facility] [address] [place] [address] Protein (U) [Mass/Vol] Negative Normal Negative [facility] Comment on above: Performed By: #### 1 [id number] #### [facility] [address] [place] [address] Specific gravity (U) [Rel density] 1.010 Invalid Interpretation Code 1.005-1.030 [facility] Comment on above: Performed By: #### 1 [id number] #### [facility] [address] [place] [address] Type of Urine collection method Clean Catch Normal [facility] Comment on above: Performed By: #### 1 [id number] #### [facility] [address] [place] [address] Urobilinogen Qn (U) 0.2 {Andrea'U}/dL Normal 0.0-1.0 [facility] Comment on above: Performed By: #### 1 [id number] #### [facility] [address] [place] [address] WBC Auto Ql (U) TRACE Abnormal Negative [facility] Comment on above: Performed By: #### 1 [id number] #### [facility] [address] [place] [address] WBC LM.HPF (Urine sed) [#/Area] 0-5 Normal 0-5 [facility] Comment on above: Performed By: #### 1 [id number] #### [facility] [address] [place] [address] URINALYSISOrdered By: Davidson Watson on 11-25-2022 Bacteria [...] PM) Normal Negative [facility] UA Auto SS Yuba.plasma/Lithiu m.RBC (Bld) [Mass ratio] 0-3 /HPF Normal [...] Desc Clean Catch (11/25/22 6:27 PM) Normal [facility] UA Auto SS Urobilinogen Qn (U) 0.8001686 {Andrea'U}/dL Normal 0.0 - 1.0 EU/dL FT UA Auto SS WBC Auto Ql (U) Trace *ABN* (11/25/22 6:27 PM) Invalid Interpretation Code Negative [facility] UA Auto SS WBC LM.HPF (Urine sed) [#/Area] 0-5 /HPF Normal 0-5/HPF [facility] UA Auto SS PAP ACOG PANEL 2: 22 to 29on 11-14-2022 . . Normal [facility] Comment on above: Performed By: #### C T/NGNA #### [facility] [address] [place] [address] Dr. Tasha Whalen Age Gdln ACOG Testing - Normal [facility] Comment on above: Performed By: #### C T/NGNA #### [facility] [address] [address] [address] Tasha Whalen DIAGNOSIS: Comment Normal [facility] Comment on above: Result Comment: NEGA TIVE FOR INTRAEPITHELIAL LESION OR MALIGNANCY. FUNGAL ORGANISMS MORPHOLOGICALLY CONSISTENT WITH DYLAN SPECIES ARE PRESENT. Performed By: #### C T/NGNA #### [facility] [address] [place] [address] Dr. Tasha Whalen Methodology: Comment [facility] Comment on above: Result Comment: This liquid based ThinPrep(R) pap test was screened with the use of an image guided system. Performed By: #### C T/NGNA #### [facility] [address] [place] [address] Dr. Tasha Whalen Note: Comment Normal [facility] Comment on above: Result Comment: The Pap smear is a screening test designed to aid in the detection of premalignant and malignant conditions of the uterine cervix. It is not a diagnostic procedure and should not be used as the sole means of detecting cervical cancer. Both false-positive and false-negative reports do occur. . Performed By: #### C T/NGNA #### [facility] [address] [place] [address] Dr. Tasha Whalen Performed by: Comment Normal [facility] Comment on above: Result Comment: Emma Jama Rn Wound (ASCP) Performed By: #### C T/NGNA #### [facility] [address] [place] [address] Dr. Tasha Whalen Reflex Criteria: Comment Normal [facility] Comment on above: Result Comment: The HPV DNA reflex criteria were not met with this specimen result therefore, no HPV testing was performed. . Performed By: #### C T/NGNA #### [facility] [address] [place] [address] Dr. Tasha Whalen Specimen adequacy: Comment Normal [facility] Comment on above: Result Comment: Sati sfactory for evaluation. Endocervical and/or squamous metaplastic cells (endocervical component) are present. Performed By: #### C T/NGNA #### [facility] [address] [place] [address] Dr. Tasha Whalen CHLAMYDIA/GONOCOCCUS CATRINA (SW AB/URINE/PAPon 11-12-2022 Chlamydia trachomatis, CATRINA Negative Normal Negative [facility] Comment on above: Performed By: #### C T/NGNA #### [facility] [address] [place] [address] Dr. Tasha Whalen Neisseria gonorrhoeae, CATRINA Negative Normal Negative [facility] Comment on above: Performed By: #### C T/NGNA #### [facility] [address] [place] [address] Dr. Tasha Whalen VAGINITIS/VAGINOSIS DNA PROB Dell 11-09-2022 Dylan species Positive Abnormal Negative [facility] Comment on above: Performed By: #### V AGINT #### [facility] [address] [place] [address] Dr. Tasha Whalen Gardnerella vaginalis Negative Normal Negative [facility] Comment on above: Performed By: #### V AGINT #### [facility] [address] [place] [address] Dr. Tasha Whalen Trichomonas vaginalis Negative Normal Negative [facility] Comment on above: Performed By: #### V AGINT #### [facility] [address] [place] [address] Dr. Tasha Whalen HEP B SURFACE ANTIGEN SCREEN on 10-05-2022 HBsAg Screen Negative Normal Negative [facility] Comment on above: Performed By: #### H BSANS #### [facility] [address] [place] [address] Dr. Tasha Whalen HEPATITIS C VIRUS AB W/ REFL EX QUANTon 10-05-2022 HCV AB 0.1 s/co ratio Normal 0.0-0.9 [facility] Comment on above: Performed By: #### H CVPCRR #### [facility] [address] [place] [address] Dr. aTsha Whalen Interpretation: Comment Normal [facility] Comment on above: Result Comment: Nega tive Not infected with HCV, unless recent infection is suspected or other evidence exists to indicate HCV infection. Performed By: #### H CVPCRR #### [facility] [address] [place] [address] Dr. Tasha Whalen HIV 1 AND 2 WITH REFLEXon HIV Screen 4th Generation wRfx Non-Reactive Normal Non Reactive [facility] Comment on above: Result Comment: HIV Negative HIV-1/HIV-2 antibodies and HIV-1 p24 antigen were NOT detected. There is no laboratory evidence of HIV infection. Performed By: #### H IV12 #### [facility] [address] [place] [address] Dr. Tasha Whalen RPR QUANTon 10-05-2022 Rapid Plasma Reagin, Quant Non-Reactive Normal NonRea<1:1 [facility] Comment on above: Result Comment: Dipika mccloud Note: This test does not meet current guidelines for screening and diagnosis of syphilis. This test is intended for following treatment response in patients being treated for syphilis infection. To screen for syphilis infection, a reflex cascade that includes both RPR and a treponema-specific assay should be utilized, such as Treponema pallidum (Syphilis) Screening [place] (251162) or Rapid Plasma Reagin (RPR) Test With Reflex to Quantitative RPR and Confirmatory Treponema pallidum Antibodies (056101). Performed By: #### C T/NGNA #### [facility] [address] [place] [address] Dr. Tasha Whalen RUBELLA AB IGGon 10-05-2022 Rubella Antibodies, IgG 3.71 index Normal Immune >0.99 [facility] Comment on above: Result Comment: Non- immune <0.90 Equivocal 0.90 - 0.99 Immune >0.99 Performed By: #### R UBIGG #### [facility] [address] [place] [address] Dr. Tasha Whalen CBC AUTO DIFFon 10-04-2022 BASO # 0.0 103/ul Normal 0.0-0.1 [facility] Comment on above: Performed By: #### H IV12 #### [facility] [address] [place] [address] Dr. Tasha Whalen Basophils/100 WBC (Bld) 0.5 % Normal 0.2-2.0 [facility] Comment on above: Performed By: #### H IV12 #### [facility] [address] [place] [address] Dr. Tasha Whalen EO # 0.1 103/ul Normal 0.0-0.7 [facility] Comment on above: Performed By: #### H IV12 #### [facility] [address] [place] [address] Dr. Tasha Whalen Eosinophils/100 WBC (Bld) 0.8 % Critically low 0.9-7.0 [facility] Comment on above: Performed By: #### H IV12 #### [facility] [address] [address] [address] Tasha Whalen Erythrocyte distribution width (RBC) [Ratio] 12.5 % Normal 11.0-15.0 [facility] Comment on above: Performed By: #### H IV12 #### [facility] [address] [place] [address] Dr. Tasha Whalen Hematocrit (Bld) [Volume fraction] 39.2 % Normal 36.0-48.0 [facility] Comment on above: Performed By: #### H IV12 #### [facility] [address] [place] [address] Dr. Tasha Whalen Hemoglobin (Bld) [Mass/Vol] 13.5 g/dL Normal 12.0-16.0 [facility] Comment on above: Performed By: #### H IV12 #### [facility] [address] [place] [address] Dr. Tasha Whalen IG # 0.04 10e3/ul Critically high 0.00-0.03 [facility] Comment on above: Performed By: #### H IV12 #### [facility] [address] [address] [address] Tasha Whalen IG % 0.5 % Normal 0.0-0.5 [facility] Comment on above: Performed By: #### H IV12 #### [facility] [address] [place] [address] Dr. Tasha Whalen LYMPH # 1.6 103/ul Normal 1.2-3.8 [facility] Comment on above: Performed By: #### H IV12 #### [facility] [address] [place] [address] Dr. Tasha Whalen Lymphocytes/100 WBC (Bld) 18.5 % Critically low 20.5-60.0 [facility] Comment on above: Performed By: #### H IV12 #### [facility] [address] [place] [address] Dr. Tasha Whalen MANUAL DIFF REQ NO Normal [facility] Comment on above: Performed By: #### H IV12 #### [facility] [address] [place] [address] Dr. Tasha Whalen MCH (RBC) [Entitic mass] 29.6 pg Normal 26.7-34.0 [facility] Comment on above: Performed By: #### H IV12 #### [facility] [address] [place] [address] Dr. Tasha Whalen MCHC (RBC) [Mass/Vol] 34.4 g/dL Normal 29.9-35.2 [facility] Comment on above: Performed By: #### H IV12 #### [facility] [address] [place] [address] Dr. Tasha Whalen MCV (RBC) [Entitic vol] 86.0 fL Normal 81.0-99.0 [facility] Comment on above: Performed By: #### H IV12 #### [facility] [address] [place] [address] Dr. Tasha Whalen MONO # 0.4 103/ul Normal 0.3-0.8 [facility] Comment on above: Performed By: #### H IV12 #### [facility] [address] [place] [address] Dr. Tasha Whalen Monocytes/100 WBC (Bld) 4.8 % Normal 1.7-12.0 [facility] Comment on above: Performed By: #### H IV12 #### [facility] [address] [place] [address] Dr. Tasha Whalen NEUT # 6.3 103/ul Normal 1.4-6.5 [facility] Comment on above: Performed By: #### H IV12 #### [facility] [address] [place] [address] Dr. Tasha Whalen Neutrophils/100 WBC (Bld) 74.9 % Normal 43.0-75.0 [facility] Comment on above: Performed By: #### H IV12 #### [facility] [address] [place] [address] Dr. Tasha Whalen Platelet mean volume (Bld) [Entitic vol] 10.0 fL Normal 9.5-13.5 [facility] Comment on above: Performed By: #### H IV12 #### [facility] [address] [address] [address] Tasha Whalen PLT 290 103/ul Normal 150-450 [facility] Comment on above: Performed By: #### H IV12 #### [facility] [address] [address] [address] Tasha Whalen RBC 4.56 106/ul Normal 4.20-5.40 [facility] Comment on above: Performed By: #### H IV12 #### [facility] [address] [address] [address] Tasha Whalen WBC 8.4 103/ul Normal 4.0-11.0 [facility] Comment on above: Performed By: #### H IV12 #### [facility] [address] [place] [address] Dr. Tasha Whalen CULTURE URINEon 10-04-2022 CULTURE URINE Culture Observations: VERY LIGHT GROWTH OF MIXED GENITAL TAEY. NO POTENTIAL PATHOGENS SEEN. Normal [facility] Comment on above: Performed By: #### C T/NGNA #### [facility] [address] [place] [address] Dr. Tasha Whalen GLYCOHEMOGLOBIN A1Con 2022 ADA RECOMMENDATION SEE BELOW Normal [facility] Comment on above: Result Comment: ADA RECOMMENDED LIMIT 4.0 - 6.0 ADA THERAPEUTIC TARGET < 7.0 ACTION SUGGESTED > 7.0 Performed By: #### C T/NGNA #### [facility] [address] [place] [address] Dr. Tasha Whalen Glucose [Mass/Vol] 100 mg/dL Normal [facility] Comment on above: Performed By: #### C T/NGNA #### [facility] [address] [place] [address] Dr. Tasha Whalen HbA1c (Bld) [Mass fraction] 5.1 % Normal 4.5-6.2 [facility] Comment on above: Performed By: #### C T/NGNA #### [facility] [address] [place] [address] Dr. Tasha Whalen CLINT BOX TEST PT SEND OUTo n 10-04-2022 SENT TO REF LAB 10/04/2022 Normal [facility] Comment on above: Performed By: #### C T/NGNA #### [facility] [address] [place] [address] Dr. Tasha Whalen TSHon 10-04-2022 TSH 1.027 uIU/mL Normal 0.358-3.740 [facility] Comment on above: Performed By: #### C T/NGNA #### [facility] [address] [place] [address] Dr. Tasha Whalen TYPE AND SCREENon 10-04-2022 TYPE AND SCREEN Negative Normal [facility] Comment on above: Performed By: #### C T/NGNA #### [facility] [address] [place] [address] Dr. Tasha Whalen US PREG TVon 09-20-2022 [...] ALFRED BERGERON Date: 2022-09-20 10:40 Normal [facility] Coding Summary.on 09-09-2022 Coding Summary. [id number] Gh0bWw+PGhlYWQ+PE1FV USmJ18flKOrgT8WU4xIA O2GLRDIPFMJKW3VJD1nr OK3TEdwY7DwclOf OllwzDKrLF87DPe5VMO4 iYcvMBtgvV9bzPXuL2b7 JkGhFP44jT12SVdsTAVg ZpG2WzDmaoortMOt R6cdBjMqzMGsWbs+PHRh YmxlIHdpZHRoPScxMDAl WxOjtLmoAN4jBh3bCWWa LWNvbGxhcHNlOiBj r7hvMEYlPNudMV8lmZbw Y1VtwJE6XMTrm9p1Gw24 dHI+XAFkMIT4lZzaWNxm o338HwVam7pcHNH2 lUScGTzmUZO9J90me1E6 VUBvXKXvDWJ9aIT9mM6h fHrpgbrnL0XbhFMyJgJ0 ODD4xOPqcD8myTtk clhnjL6zCnu+N20LIV3M BBWRYR8EPab5F6PaXfqp dHI+AU30BPRrIS42aMXc iNCwv3xubDl5BpMf ETHbONV3nDajMDwkx2Cu OPArB65wdGBfy2Q5BOPe dLeybAKzIgTtpPB7qO3m YOxmgjxhz0imvokg Zneow6cpro63sF87B71y JFmjFJBcHZZ5BGUfOVYr sIrykk7lxZ0kHi6+IDxj s4bgk7nznHn2FwVj HCJxrvIomPvaMDP2g8Dz Fn39H6SorUjrj4KoLns4 vy66lSNiu0W7oUM1YDyo MOBvmO7eYYkuTlN8 ZOQtNgNjzV53tJIcESll Hw7euInbyQejQQ6tTOOy nxfkEWNjiO4eDGQrmUIj tKeuXC4gBBQfwymr n724ByGzDON8SQGexLQd M1CjjW2rOxZpXVLlPQWo R7JriBHkGJadJ811UXps JdH3LCDcsrDtB6No QZKahQrtLpM3p1D1Rq8X u2DgzugbRFE5XVsdGWYd TdG5NpZvYgT2J6PnPam5 ZQZfqEzyFV5tS5Qp SWPorftkfxpasGF6NDYu OXFnsI80eYLmCTvwPt9j v4O6m893XCDvXCEljO25 Ra8ihAtgDWBhjJIK wO3oaemhd5syqkgfIcGb LFXsQHf3FCt9KDBabBgy AtZhEME8BqD2MVL3rHQl bN8cgCbcxrjukW2k Oyc+O07niB0xMJR0ORT9 alpfPRUipvGgZT06XY79 U6BjQwnkvAOhqNE+PGRp qjZifYwoQU5jVrCk r2tpn4MnJKlhN7OrEOHh JOksHlx9GDAzUBI4oOP3 iU2pBBPnTFqyy4Y0pXL5 M2GwmfPdke7oj2dr INSaHPjkH75gwCTpb6A7 NUOxySM1LSHahAhiJnWa cF37Mjh+HDDhxOamv1Bv Sfjjo5exe0hylBi8 IjMwJSIgdmFsaWduPSJ0 x3PtYt20X33vCGnbFFIw PTMvQIQkNUWvoAvaiw5b dJ1aDn1+PGNvbCB3 zVA0qY2wNXDhYhJ3FOdw U335WiNpdMViKmlpz8lf g3xsnPl2NqYpYOBymuLo vYqcOVQ3e5QpWf41 F41fSEkyDJFkORKlCFDl GEHdkGqygj2ttG7lVl0+ RO8cy5dxpt91qB81tJN+ SEDgMFV7eGzsKGhv LNAbqY6lLKahQiG3MJJn SnYqxB74bEXbBWzwJz7k pGtfvYfiIM6yFYEmrrwo l973EhXvt5doFDXw lEGzQOwdIJK5R22yw6Y1 EEGmDBLhSOQ4bVR0uG6v bGlnbjogbGVmdDsgdmVy uKguPGupIVxlV787 IHRvcDsnPlBhdGllbnQg McXrKTc1X0VtTkv7TNOy jGibOQ5kjMEkFJjjPd7b kJrgdYxuZK4lUQRm zrfwr866HaMem5yvTEKz dPZiTWmxZWQ8X90mg0U5 EOLiOLLqVPM9xKF3bM4p bGlnbjogbGVmdDsg tdUhpPyoKXhuOFulC833 IHRvcDsnPkJpcnRoIERh xYF0IR29OO35lQRkc7Z2 uYW5Q5WkGAOjafir nmmluXZ7YOYzYRTvoQ79 Lj0zePuzMb0ePNNcMGA6 VEOewIXmS8RjbM8aTcXd LNNcGSPhS3DhbAAr PQmzM143KDcvRwZ5VMIo chGnP8WxPHQglIunErP5 m8E5Bj1WD7D4HE76JP72 wBXhz5W2nTF9L7Dl GGOqutccyfpelFM9CFUg TGFbpW64Tl4ptDksDf5l KOVvXEK2WVRisODyW8Qs xU4hIyRaVFWvDKCk G8MewETrILchK720LMbg KfP9GKLhvgYcJ9LaMBQu sHnnPtP1r9F3Ar8XJWu5 ZZ00GI65pSVux8H6 nPI0V5KrJKYsllmdresm hEL3XNLpBXMugZ69Pe6r gJleVv0zRJEmBAV1WAHu oOArA9GneG0tUoXi NTItDKSyT3GmdEZgRFvo J390UIkpKzZ7UOVpndQo Q4WyMKCxvUhaCmE7r3C3 Za6UPGFhKB60UND0 wTK6UI57BZ23T2KwWjxc dGFibGU+PHRhYmxlIHdp ZHRoPScxMDAlJyBzdHls LZ3fNg4wCOIuVZVy gIosbOKgJpXyf2alZSMx RZudIO0ufHacX9EqbEK0 GHScy3d1Hm96H24kE3Zc dXA+WIJrtYC4eCX5 zK7vFdSsCzQ1QSydE468 PoRmoCJnOhgta1wwd2zk zBl7VuN5YUEkwuEoaMvu FIG2d2AiQs68X26z IHdpZHRoPSIxNSUiIHZh nLlnhw6izF2vYn9+PGNv lRP4xHS1qN6eFpTbYzB3 KPbpN613ZhScsMLm Qluyt6odo9gocEv1CsSr UGUpikCwxKxpELI1o6Pk Pb22B1VkbUtww7UfGfz8 qz30qTBvd0W9rCO1 G1JdDIFqfjbqlDQdgEam SH1rRDFkyptdEDAzvZ7h ZQNzN1i8MeZeHtO3JBnz P8TckdZ3SNEyqCAn PEgkKOG8B63fu9V3SCPz TDAqJIK3nJM0yC7iuTtz bjogbGVmdDsgdmVydGlj VRqtBBwnA723XKYt hRjiHIJkxT0rBFXflCXi hRwbML4pFFLkpamxPe0H BFASULBQNFYYQGQHHI6T UR70L4IzFni0XCNd hTdwYE6miCNwEQagAe8c qZdgdDzpGY1vDPSpykff NQOivC5yCOVuaXHeiIrv SS7nPAHyaylsw602 YbKaFHL5JAIpeIJyK1Yl pS4zUvYgLSKlPSVzO3Qw gRQaWFcxU369OTgdHsM5 ODKzuzXsC3VkNDBc tEkoJcO1t2V5Hn7tNZ0g YG9uBJQbGY52WN61cYEe e6L4wLI0K6LoPPPmlaxc yjerxIV6UWBlIFFb kH14kGFvXUylWz7ko0J5 a026CZQhSZRdtQ37Id8a pDlcEQHvbKTYaH5euyvp z7uxifckFbLxSJGe XNt7QEc3PODogTqkGgAh HFD9OdZ2CFU9kTWmhZ6o yXcsqffsgE8wTwz+MjEg LDAbyqM9N5QpJtr7 VZWghArvMH1qtXJkIYqn Lh4jvTfajImjGZ5eYIGv trcwYQWkyP1cKXFcaEWx xIhkMF8nFPAgwgvy l139YgGrEJY9NSQjmWOa W7LboK5fUjJpPHPhQUWj S7ZdgSFfWMjgS841UQvl BvK2UTEanwOsB4Ce NCQaxKkxTpA0i5R6Gs2Z GO1ekLH2P2ApRgg7PIWa lXjkDX1xeZApNMhiQc8m gJtwnTboMQ7dNJJd kkawRQTtxR8rRTDltOUn hVdkDR0eICHbsnzuc851 KsYdEPT0PWUrqBApR8Zl fN8xTeCqOAUwWSZz R2WnsNCfYKnnO666OMwv OvN8ECRumbTfX8PtGXCx lQjmYmT3h5D4Ti4EpITs F7TjR8d0H5KpHksg dHI+OV65JYReSJ03rBNz kFEps0rozOz7VoQxLLVq VHG8yDepEZxrk2IhSJRz S64qnRTce0W7GVBh hGxkmDIxWsDyuDU4vF7h ONpdyoiyo7hmhtjfGjrn i1xqmm85qA36Y82gHDgm ZHRoPSIzMCUiIHZh kKrflf4vpV8tFo8+PGNv xWF7aMZ2mT0qHmLpWmD6 ITbuD852VtWtgHTrLrxu o2tyo2omdLs3VfBh JZJpjsQdgEfoFVM6i8Og Cu70O30wFDanPORtOEHl GNXeBLNppXcpoh2zdR9y Ii8+JP4ls1alds72 hC74mRL+FTLhVLW2hFzt BJkrWWJdbW2hOBauGaR3 AJRvKvPuuU80kWMjERxx Qw3ovCrczLkpMF7h MXIverdng569BnZpp4nc HBGwaJGlZXbnHWJ3V96u l1C5IKSiPPHeASJ2wNH6 wH1evZmuaejvwPWs dDsgdmVydGljYWwtYWxp Q019YIFskRyfVqZowGGw F9xvqdOTQF6sHgawySG+ KIMoEAX2lWieAHzw LKCgxK1lPYHiZ6j3CvMv CgY4NTuoJ1FazoA1HVHf gSHtLGYatHWXsZ8hkeqb q1lwdhzbCeUfAPLf UHs3YLc0ZJYyxWlbLkZv PIG1TmX2ATQ8sLYcfY6z gDgbswbycV2hGee+RklO OjwvdGQ+PHRkIHN0 oLxhNKbaAYBwxO6rXDSl O6l4VtAmUmM5NUueB2Rt fcQ8OHVwpEKcJZTbaMBL sX2nxxlvo0wlyekh NiEgUOOhTAp7GUb0RHLs yYzbYuNyAJT9YqI6BJR6 bSVkuF1isIojpojvkF5p Oyc+TVJOOjwvdGQ+ FFJrYJW5jZonVWydTOLq zY6sVSJvK5w9HuLcBzM4 KYejV9HwqpI3SMJkxKVc EMUmpVCRkE6jvhyv f3gjouobUoFsHBXrZDy3 ZDp3TMMqbCbeWjPzMMW3 JfH4FDV9aWEhvH4muGco idcgfP1xXvd+UGF5 IEH9UU60WS50D4DdXmml dGFibGU+PHRhYmxlIHdp ZHRoPScxMDAlJyBzdHls IY8cBj3hMPCqWQVi bGxh (more content not included)... Normal [facility] Auto Diffon 09-08-2022 Basophils/100 WBC (Bld) 0.7 % Normal 0.0-2.0 [facility] Comment on above: Order Comment: Order Added by Discern Expert. Performed By: #### 2 [id number], [id number], [id number], [id number], [id number] ####[facility] [id number] [place] [address] Basophils/Leukocytes Auto (Bld) [Pure # fraction] 0.1 E9/L Normal 0.0-0.2 [facility] Comment on above: Order Comment: Order Added by Discern Expert. Performed By: #### 2 [id number], [id number], [id number], [id number] ####[id number] [place] [address] Eosinophils/100 WBC (Bld) 1.3 % Normal 0.0-8.0 [facility] Comment on above: Order Comment: Order Added by Ally Expert. Performed By: #### 2 [id number], [id number], [id number], [id number], [id number], [id number], [id number] ####[facility] [id number] [place] [address] Eosinophils/Leukocyte s Auto (Bld) [Pure # fraction] 0.1 E9/L Normal 0.0-0.5 [facility] Comment on above: Order Comment: Order Added by Ally Expert. Performed By: #### 2 [id number], [id number], [id number], [id number], [id number], [id number], [id number] ####[facility] [facility] [address] [place] [address] Lymphocytes/100 WBC (Bld) 22.3 % Normal 14.0-50.0 [facility] Comment on above: Order Comment: Order Added by Ally Expert. Performed By: #### 2 460689, 3475369, 6129091, 2744777, 59481469, 0267649, 8527478 ####[facility] [address] [place] [address] Lymphocytes/Leukocyte s Auto (Bld) [Pure # fraction] 2.2 E9/L Normal 1.0-4.0 [facility] Comment on above: Order Comment: Order Added by Discern Expert. Performed By: #### 2 192618, 3918947, 2575751, 7732918, 17304784, 0630172, 4819165 ####[facility] [address] [place] [address] Monocytes/100 WBC (Bld) 7.4 % Normal 4.0-14.0 [facility] Comment on above: Order Comment: Order Added by Discern Expert. Performed By: #### 2 688129, 2969103, 6846171, 8909989, 23195541, 7040318, 1794960 ####[place] [address] [place] [address] Monocytes/Leukocytes Auto (Bld) [Pure # fraction] 0.7 E9/L Normal 0.2-1.0 [facility] Comment on above: Order Comment: Order Added by Ally Expert. Performed By: #### 2 554205, 9567277, 4292981, 4407696, 45203473, 1532576, 3608660 ####[address] [place] [address] Neutrophils/100 WBC (Bld) 68.3 % Normal 36.0-75.0 [facility] Comment on above: Order Comment: Order Added by Ally Expert. Performed By: #### 2 379233, 4638515, 0485113, 0071862, 34061970, 2301831, 5839386 ####[facility] [address] [place] [address] Neutrophils/Leukocyte s Auto (Bld) [Pure # fraction] 6.7 E9/L Normal 2.0-7.5 [facility] Comment on above: Order Comment: Order Added by Ally Expert. Performed By: #### 2 853583, 3299918, 7787593, 2338553, 86688619, 0054117, 4385375 ####[facility] [address] [place] [address] BMPon 01-15-2023 Creatinine [Mass/Vol] 0.5 mg/dL Normal 0.5-1.3 [facility] Comment on above: Performed By: #### 2 989183, 5155922, 3935212, 5911994, 84286816, 0094439, 4801125 ####[facility] [address] [place] [address] Urea nitrogen [Mass/Vol] 8 mg/dL Normal 5-21 [facility] Comment on above: Performed By: #### 2 016712, 0392226, 8910075, 1852224, 24467982, 5843343, 3962809 ####[facility] [address] [place] [address] Urea nitrogen/Creatinine [Mass ratio] 16 No Units Normal 10-20 [facility] Comment on above: Performed By: #### 2 502542, 9837939, 7020053, 6880509, 87474892, 1726323, 6037875 ####[facility] [address] [place] [address] Anion gap [Moles/Vol] 12 mmol/L Normal 6-16 [facility] Comment on above: Performed By: #### 2 314883, 5244551, 7379300, 8663652, 00643552, 0937106, 2912848 ####[facility] [address] [place] [address] Calcium [Mass/Vol] 9.2 mg/dL Normal 8.9-11.1 [facility] Comment on above: Performed By: #### 2 982703, 9462780, 1890492, 9777100, 48087199, 9209721, 3937925 ####[facility] [address] [place] [address] Chloride [Moles/Vol] 103 mmol/L Normal 101-111 [facility] Comment on above: Performed By: #### 2 538904, 0583553, 0345570, 0068460, 06025667, 0499080, 5696974 ####[facility] [address] [place] [address] CO2 [Moles/Vol] 22 mmol/L Normal 21-31 [facility] Comment on above: Performed By: #### 2 596853, 4392809, 6061551, 9738402, 82293175, 3924508, 2717401 ####[facility] [address] [place] [address] Glucose [Mass/Vol] 92 mg/dL Normal 55-199 [facility] Comment on above: Result Comment: If t his glucose result represents a fasting glucose, interpretation should refer to the following reference range: 55-99 mg/dL Performed By: #### 2 633755, 7234581, 8973635, 8125399, 53185511, 3412703, 9598089 ####[facility] [address] [place] [address] Potassium [Moles/Vol] 3.3 mmol/L Low 3.5-5.3 [facility] Comment on above: Performed By: #### 2 763409, 1986679, 8972712, 0863865, 06658380, 0132843, 4671895 ####[facility] [address] [place] [address] Sodium [Moles/Vol] 134 mmol/L Low 135-145 [facility] Comment on above: Performed By: #### 2 537691, 4353877, 7790960, 2104009, 55063717, 0482665, 4831241 ####[facility] [address] [place] [address] CBC w/ Auto Diffon 3 Erythrocyte distribution width (RBC) [Ratio] 13.4 % Normal 10.9-14.2 [facility] Comment on above: Performed By: #### 2 671666, 2874481, 4191810, 6494758, 09078645, 8925773, 4862909 ####[facility] [address] [place] [address] Hematocrit (Bld) [Volume fraction] 38.9 % Normal 34.0-46.0 [facility] Comment on above: Performed By: #### 2 940024, 5815273, 2598454, 4632902, 71840328, 3416899, 9471572 ####[facility] [address] [place] [address] Hemoglobin (Bld) [Mass/Vol] 13.4 g/dL Normal 12.0-16.0 [facility] Comment on above: Performed By: #### 2 048935, 2503825, 1278845, 1971550, 40865090, 1485894, 4614992 ####[facility] [address] [place] [address] MCH (RBC) [Entitic mass] 29.2 pg Normal 27.0-34.0 [facility] Comment on above: Performed By: #### 2 259634, 5338505, 7992970, 1704089, 44054026, 6550737, 2805164 ####[place] [address] MCHC (RBC) [Mass/Vol] 34.3 g/dL Normal 31.4-36.0 [facility] Comment on above: Performed By: #### 2 817953, 1878935, 0497471, 6332934, 07630098, 3375953, 2666373 ####[address] [address] MCV (RBC) [Entitic vol] 84.9 fL Normal 80.0-100.0 [facility] Comment on above: Performed By: #### 2 707089, 0392634, 5315490, 3715383, 83962802, 8722890, 0020243 ####[address] [place] [address] Platelet mean volume (Bld) [Entitic vol] 8.6 fL Normal 6.4-10.8 [facility] Comment on above: Performed By: #### 2 862687, 1411417, 9795971, 4825619, 90884919, 7845176, 8127852 ####[facility] [address] [place] [address] Platelets (Bld) [#/Vol] 262.0 E9/L Normal 150.0-500.0 [facility] Comment on above: Performed By: #### 2 511978, 8930849, 5188646, 4677094, 78746669, 0055123, 6265380 ####[facility] [address] [place] [address] RBC (Bld) [#/Vol] 4.6 E12/L Normal 4.3-5.9 [facility] Comment on above: Performed By: #### 2 391583, 4159494, 8302975, 6248426, 31200781, 6640737, 6602732 ####[facility] [address] [place] [address] WBC corrected for nucl RBC Auto (Bld) [#/Vol] 9.9 E9/L Normal 4.0-11.0 [facility] Comment on above: Performed By: #### 2 952097, 3564933, 1373256, 1417907, 08008842, 9938732, 7510197 ####[facility] [address] [place] [address] Consent for Treatmenton 08-25 Consent for Treatment [id number] #1.00CD:127 Normal [facility] Discharge Instructionson Discharge Instructions [id number] 3#1.00CD:127 Normal [facility] ED Clinical Summaryon 2022 ED Clinical Summary [address] [address] ED Clinical Summary Person Information Name: ROQUE PIERSON [place] Age: 22 Years : 2000 Sex: Female Language: Togolese PCP: Caryn Aviles MD Marital Status: Single [...] 09/08/2022 04:05:14 09/08/2022 04:05:14 09/08/2022 04:05:14 ADDRESS: [address] [place] [id number] PHYS DOC NOTES: MEDICAL INFORMATION: Prescriptions Given: New Medications [facility], [address], [place] [id number], [phone] metoclopramide (Reglan 10 mg Tab) 1 Tablets [...] Follow up: With: Address: When: [facility], [address] [place] [address] , [place] [address] Business (1) In 3 days 09/11/2022 Comments: 1 every 8 hours as needed for nausea and vomiting. Please follow-up with OB for further evaluation and management. Please return to the ED for any new or worsening symptoms. With: Address: When: Caryn Aviles [address] [place] [address] Business (1) In 3 days 09/11/2022 DIAGNOSIS: Nausea/vomiting in Normal [facility] ED Note-Physicianon 09-08-19 ED Note-Physician Basic Information [...] and Complexity of Problems Differential Diagnosis: [] [facility] Data External documents reviewed: [] My [...] q6hr, # 14 tab(s), Refills(s) 0, Pharmacy: [facility], 173, cm, 09/08/22 1:24:00 EST, Height/Length [...] 5 mg/mL Inj, 10 mg, IV Push [id number] [F], 1000 mL, IV potassium chloride 20 mEq ER Tab, 40 mEq, Oral Disposition Plan Discharge Prescription List Prescriptions Reglan 10 mg Tab, 10 mg= 1 tab(s), Oral, q6hr Follow-up With When (more content not included)... Normal [facility] Comment on above: Result Comment: Elec tronically Signed By: Sisys Shah DO\.basil\Date and Time Signed: 09/08/22 03:56 [...] or sour. Examples include lemonade, damián janak, lemon?beaver soda, ice water, and sparkling water. ? [place] your teeth or use a mouth rinse after meals. ? Talk with your health care provider about starting a supplement of vitamin B6. General instructions ? Take wvnn-sue-alhmvpp and prescription medicines only as told by [...] This i (more content not included)... Normal [facility] ED Patient Summaryon 023 ED Patient Summary [address] [address] Patient Discharge Instructions Person Information Name: ROQUE PIERSON Age: 22 Years Arrival Date: 09/08/2022 01:15:13 Discharge Diagnosis: Nausea/vomiting in Primary Care Physician: Caryn Aviles MD Provider Information Primary Provider: Sissy Shah DO Advanced Rn Recovery:None The exam and treatment you received in the Emergency Department were for an urgent problem and are not intended as complete care. It is important that you follow up with a doctor, nurse practitioner, or physician?s costumer assistant for ongoing care. If your symptoms [...] Follow-up Instructions: With: Address: When: [facility], [address] [place] [address] [place] [address] [employer] (1) In 3 days 09/11/2022 Comments: 1 every 8 hours as needed for nausea and vomiting. Please follow-up with OB for further evaluation and management. Please return to the ED for any new or worsening symptoms. With: Address: When: Caryn [place] [address] [place] [address] [employer] (1) In 3 days 09/11/2022 In the event that this physician does not participate in your insurance network, please consult with your insurance company to find a nearby participating provider. Patient Education Materials: Hyperemesis Gravidarum A MESSAGE TO ALL PATIENTS REGARDING OPIOIDS PRESCRIPTION OPIOIDS: WHAT YOU NEED TO KNOW Prescription opioids can be used to help relieve raenxxgx-lx-tawcoh pain and are often prescribed following a [...] the F (more content not included)... Normal [facility] Hep Func Panelon 09-08-2022 Albumin [Mass/Vol] 4.3 g/dL Normal 3.3-5.0 [facility] Comment on above: Performed By: #### 2 739802, 4654108, 4207755, 3343274, 36618570, 1869781, 3711395 ####[facility] [address] [place] [address] Albumin/Globulin (S) [Mass conc ratio] 1.3 Normal 1.1-2.2 [facility] Comment on above: Performed By: #### 2 657635, 1927344, 0760014, 8788250, 27913729, 4460437, 8793860 ####[facility] [address] [place] [address] ALP [Catalytic activity/Vol] 61 Int._Unit/L Normal 21-98 [facility] Comment on above: Performed By: #### 2 905962, 0281908, 8852338, 9844086, 12851251, 4974503, 9839783 ####[facility] [address] [place] [address] ALT No additional P-5'-P [Catalytic activity/Vol] 61 Int._Unit/L High 6-46 [facility] Comment on above: Performed By: #### 2 937457, 9362597, 8047637, 3714555, 29232251, 9937774, 6857961 ####[facility] [address] [place] [address] AST [Catalytic activity/Vol] 48 Int._Unit/L High 5-43 [facility] Comment on above: Performed By: #### 2 840518, 9562301, 8118034, 0063400, 57515123, 9311083, 6185080 ####[facility] [address] [place] [address] Bilirubin [Mass/Vol] 1.1 mg/dL Normal 0.0-1.1 [facility] Comment on above: Performed By: #### 2 040318, 2850646, 8250156, 2263404, 38727223, 9219361, 6511551 ####[facility] [address] [place] [address] Bilirubin.direct [Mass/Vol] 0.3 mg/dL Normal 0.1-0.4 [facility] Comment on above: Performed By: #### 2 241077, 9490681, 5492821, 2513982, 49534831, 6704025, 0809818 ####[facility] [address] [place] [address] Bilirubin.indirect [Mass or moles/Vol] 0.8 mg/dL Normal 0.1-0.9 [facility] Comment on above: Performed By: #### 2 442421, 3526781, 0511566, 4838911, 29935026, 4477152, 2833491 ####[facility] [address] [place] [address] Globulin (S) [Mass/Vol] 3.3 g/dL Normal 1.4-4.0 [facility] Comment on above: Performed By: #### 2 685498, 8090369, 0100433, 3648192, 06449038, 8874681, 7326896 ####[facility] [address] [place] [address] Protein [Mass/Vol] 7.6 g/dL Normal 6.0-7.8 [facility] Comment on above: Performed By: #### 2 290319, 0105110, 5097446, 9022108, 50520453, 6757230, 9509867 ####[facility] [address] [place] [address] Lipase Levelon 09-08-2022 Lipase [Catalytic activity/Vol] 27 U/L Normal 13-58 [facility] Comment on above: Performed By: #### 2 290404, 4029058, 3203018, 6515374, 91367601, 5029007, 6733566 ####[facility] [address] [place] [address] Magnesiumon 09-08-2022 Magnesium [Mass/Vol] 1.9 mg/dL Normal 1.3-2.4 [facility] Comment on above: Performed By: #### 2 128794, 6127925, 5407359, 5603288, 98027495, 4451013, 7807919 ####[facility] [address] [place] [address] UA With Cult Reflexon 2022 Bacteria LM Ql (Urine sed) TRACE Normal Trace [facility] Comment on above: Performed By: #### 2 405569, 0578959, 5800309, 2116269, 95378790, 4942149, 9794012 #### [facility] [address] [place] [address] Bilirubin Ql (U) 1+ Abnormal Negative [facility] Comment on above: Performed By: #### 2 551364, 6691260, 3836948, 2242200, 82493270, 9718530, 9071325 #### [facility] [address] [place] [address] Clarity (U) CLEAR Normal Clear [facility] Comment on above: Performed By: #### 2 218927, 7588677, 7286713, 5762225, 21786841, 9072947, 6832874 #### [facility] [address] [place] [address] Color (U) YELLOW Normal Yellow [facility] Comment on above: Performed By: #### 2 593755, 2805335, 6202997, 3024412, 66666511, 1345261, 3745117 #### [facility] [address] [place] [address] Epithelial cells.squamous LM.HPF (Urine sed) [#/Area] 0-2 Normal 0-2 [facility] Comment on above: Performed By: #### 2 637236, 7280414, 4274180, 1361353, 17411482, 1361193, 7868305 #### [facility] [address] [place] [address] Glucose Test strip (U) [Mass/Vol] Negative Normal Negative [facility] Comment on above: Performed By: #### 2 152855, 0860068, 6112506, 7114619, 95247598, 7510875, 4638697 #### [facility] [address] [place] [address] Hemoglobin Ql (U) Negative Normal Negative [facility] Comment on above: Performed By: #### 2 534937, 2550535, 2347675, 3127561, 91233619, 1627363, 6605587 #### [facility] [address] [place] [address] Ketones (U) [Mass/Vol] 3+ Abnormal Negative [facility] Comment on above: Performed By: #### 2 332376, 5843598, 3932826, 9168955, 48664524, 5242436, 5481246 #### [facility] [address] [place] [address] Yuba.plasma/Lithiu m.RBC (Bld) [Mass ratio] 0-3 Normal 0-3 [facility] Comment on above: Performed By: #### 2 330549, 7745711, 7266162, 2440221, 04497190, 1816330, 8531281 #### [facility] [address] [place] [address] Mucus Ql (Urine sed) TRACE Normal [facility] Comment on above: Performed By: #### 2 672313, 1886311, 7278333, 1854206, 29706871, 9272071, 2790617 #### [facility] [address] [place] [address] Nitrite Ql (U) Negative Normal Negative [facility] Comment on above: Performed By: #### 2 997352, 2007712, 4582137, 7727789, 73458757, 5521998, 0798805 #### [facility] [address] [place] [address] pH (U) 6.0 [pH] Invalid Interpretation Code 5.0-9.0 [facility] Comment on above: Performed By: #### 2 143679, 1902916, 0232248, 5938801, 55645788, 1891126, 3159545 #### [facility] [address] [place], [place] [address] Protein (U) [Mass/Vol] TRACE Abnormal Negative [facility] Comment on above: Performed By: #### 2 393728, 5011301, 3472495, 9573891, 69567450, 5089079, 0409437 #### [facility] [address] [place], [place] [address] Specific gravity (U) [Rel density] >=1.030 Invalid Interpretation Code 1.005-1.030 [facility] Comment on above: Performed By: #### 2 608548, 6082107, 0340693, 9300250, 25310239, 7468438, 3662325 #### [facility] [address] [place] [address] Type of Urine collection method Clean Catch Normal [facility] Comment on above: Performed By: #### 2 756360, 3617991, 6275078, 7685279, 12785320, 0761634, 3092098 #### [facility] [address] [place] [address] Urobilinogen Qn (U) 1.0 {Andrea'U}/dL Normal 0.0-1.0 [facility] Comment on above: Performed By: #### 2 388389, 0663034, 5669484, 7633498, 76734764, 2997114, 8287457 #### [facility] [address] [place] [address] WBC Auto Ql (U) Negative Normal Negative [facility] Comment on above: Performed By: #### 2 855415, 5729371, 1001885, 9167988, 76445166, 9424003, 4106447 #### [facility] [address] [place] [address] WBC LM.HPF (Urine sed) [#/Area] 0-5 Normal 0-5 [facility] Comment on above: Performed By: #### 2 060862, 5677460, 3395106, 4209587, 61797032, 9360966, 8972576 #### [facility] [address] [place] [address] eGFRon 09-08-2022 GFR/1.73 sq M.predicted among blacks MDRD (S/P/Bld) [Vol rate/Area] mL/min/{1.73_m2} Normal >=59 [facility] Comment on above: Order Comment: Order added by Discern Expert. Result Comment: eGFR is race adjusted. AA=. Performed By: #### 2 897460, 9475741, 7698297, 2823371, 47648273, 6753288, 8599135 ####[facility] [address] [place] [address] GFR/1.73 sq M.predicted among non-blacks MDRD (S/P/Bld) [Vol rate/Area] mL/min/{1.73_m2} Normal >=59 [facility] Comment on above: Order Comment: Order added by Discern Expert. Result Comment: Cable Engineer emil kidney disease could be indicated at eGFR's of less than 60 mL/min/1.73m2. Kidney failure is indicated at less than 15 mL/min/1.73m2. Performed By: #### 2 261825, 9674712, 8846832, 1043247, 30077337, 6310338, 0555055 ####[facility] [address] [place] [address] CBC with Auto Differentialon 09-04-2022 Absolute Eos # 0.20 [facility] Absolute Lymph # 1.70 [facility] Absolute Sandoval # 0.60 [facility] Basophils (Bld) [#/Vol] 0.10 10*3/uL [facility] Basophils/100 WBC (Bld) 1 % 0 - 2 % [facility] Differential Type YES [facility] Eosinophils/100 WBC (Bld) 2 % 0 - 5 % [facility] Hematocrit (Bld) [Volume fraction] 40.9 % 36 - 46 % [facility] Hemoglobin (Bld) [Mass/Vol] 13.9 g/dL 12.0 - 16.0 g/dL [facility] Interpretation and review of laboratory results Abnormal [facility] Lymphocytes/100 WBC (Bld) 18 % 15 - 40 % [facility] MCH (RBC) [Entitic mass] 29.5 pg 26 - 34 pg [facility] MCHC (RBC) [Mass/Vol] 34.0 g/dL 31 - 37 g/dL B ON [facility] MCV (RBC) [Entitic vol] 86.9 fL 80 - 100 fL [facility] Monocytes/100 WBC (Bld) 6 % 4 - 8 % [facility] Platelet distribution width (Bld) [Ratio] 13.0 % 12.1 - 15.2 % [facility] Platelets (Bld) [#/Vol] 252 10*3/uL [facility] RBC (Bld) [#/Vol] 4.71 10*6/uL 4.0 - 5.2 m/uL [facility] Segmented neutrophils/100 WBC (Bld) 73 % 47 - 75 % [facility] Segs Absolute 7.20 High [facility] WBC (Bld) [#/Vol] 9.8 10*3/uL [facility] CMPon 09-04-2022 Albumin [Mass/Vol] 4.5 g/dL 3.5 - 5.2 g/dL [facility] ALP (Bld) [Catalytic activity/Vol] 73 U/L 35 - 104 U/L [facility] ALT [Catalytic activity/Vol] 17 U/L 5 - 33 U/L [facility] Anion gap [Moles/Vol] 11 mmol/L 9 - 17 mmol/L [facility] AST [Catalytic activity/Vol] 14 U/L NINF - 32 U/L [facility] Bilirubin [Mass/Vol] 0.4 mg/dL 0.3 - 1 .2 mg/dL [facility] Calcium [Mass/Vol] 9.3 mg/dL 8.6 - 10. 4 mg/dL [facility] Chloride [Moles/Vol] 103 mmol/L 98 - 10 7 mmol/L [facility] CO2 [Moles/Vol] 23 mmol/L 20 - 31 mmol/L [facility] Creatinine [Mass/Vol] 0.47 mg/dL Low 0.50 - 0.90 mg/dL [facility] GFR/1.73 sq M.predicted MDRD (S/P/Bld) [Vol rate/Area] - PINF [facility] Comment on above: Effective May 27, 2022 [...] 103 mg/dL High 70 - 99 mg/dL [facility] Interpretation and review of laboratory results Abnormal [facility] Potassium [Moles/Vol] 3.8 mmol/L 3.7 - 5.3 mmol/L [facility] Protein [Mass/Vol] 7.3 g/dL 6.4 - 8.3 g/dL [facility] Sodium [Moles/Vol] 137 mmol/L 135 - 144 mmol/L [facility] Urea nitrogen (BldV) [Mass/Vol] 4 mg/dL Low 6 - 20 mg/dL [facility] Urea nitrogen/Creatinine (Bld) [Mass ratio] 9 9 - 20 [facility] Coding Summary.on 09-04-2022 Coding Summary. CD:[id number] Gh0bWw+PGhlYWQ+PE1FV EPdW43peLCddE2TF3rKH D8RZEBGAQIFKG4SMH3az MH1MDjcL1VbdrTl JjwqqDLiZA83THg1XTS3 lVnhOVkeuV5wmATzQ4j9 IyTeRM66aW74FApwPOYb FoI4NsRlpxoooCDp E9dzYwSjcNKqVsq+PHRh YmxlIHdpZHRoPScxMDAl KcCmjUdnZU6rWj6eJBKk LWNvbGxhcHNlOiBj q9jnNMAcVUzjTE7exQyd F2TssSR8UIKob9o6Kt45 dHI+OORiCJW6rAxrTOen q595LdUpf6gfYVT4 tGSrXDmwMEJ1S35vn3D4 IFOnWUXrJAJ0yJD8zG0m yTkeykqiI8SqnVScZyJ5 HHP9gFVnlK3scFxx ylwcqT5gTyu+Y65SGS3R RBTTUG1OUud5H6MyXfpl dHI+SJ15LPXuML81jQEa hOTqd7owpCd0BqEn DPTnRCE1aKzvOSznr6Cg FHNpV34qrIYzi4V8UUEq bKcqsUMyQjHmqPB7zE2y QSrzvoizi4oxygjy Zpsde5ghfx84iS08S15i STvpNVWqPSU9AVLgMRCm uCiqil2qmF5sYf8+IDxj p0qiz2szmQe6SgTx BRWcvbEzhTtyAND9c9Qh Sh44E0DiaLmua0GlClw0 sp22hEBjp1I0mZR3ZVta JYTcrK7wEMeoKdH4 JIUgZkGzdO28uHEzINpn Ve6hjPuwlGcaAM6pEFPn oqwyCRQbrB0tHPTqkZGq mAncKA8zKANshrkl m114BmEpOCU0DFHvxJAf Q8LojZ9mBnYzUWToNHWa P6KiuKWbTZuhA415UCic CfC8BXOgayZtN9Jw YYGrpNrgLxY5w6D5Hm4R w9ClcnueSXC8NGreFWPp PdUkSgCyIaD2A3OeSgq2 UYYmfKchOZ3kG4Io VOMablvbcbpltYR7ZHSv CVQznI64lVLhOWphAg1j n8E6f423YEWxDMGfhQ73 Ix9giHmwMEBoiTUA xC3kqmsrc7cftlxwUiPo CTKoKJt7QXt3WKRbnWck DoCbWEI9ZcA5BAB5bFVc pK1iqZxijcnotJ8v Oyc+V84xfK6kUSQ3INX9 fxstXLFhyxBxWB69PM18 N9TlBozpoPHsuHH+PGRp kmMzpEjpIS5sSyHd i9ptm4VaCLhoB2PeAQIl NUiaCxl5MZSqEVE6zUB5 jE9dIWLvGHyor8V7mMU5 V6LgluHdnh8hr8ky XXBjPCgiC50mmTGyv2R8 CPPjrJU8WLBejCblSvUq zJ94Hnd+RFRzcAsmx8Nm Obgou9njm5yezHs1 IjMwJSIgdmFsaWduPSJ0 f4UdIb29E87gUOeqRXEr EFLtGHQlXMHxmPzrdk8s lG4fUy3+PGNvbCB3 jUV9mF3iXHXnTmT2AVwq V777SgMquNCqEpmbt3yj q7yvkRs3AiJnKYGezuMz aFolZOH2f5HyIc51 N41wCTwxINBeLDEqSQCs JPXceCsubf5oiB5mBu9+ IP4sg2bugc94tQ30wRJ+ MGZwYJD3wCibLCje MWOhgH3fPKvnQwV3JPRl PkIlsW89mCJvGCshOt4c vVoakQwaJI0vNCHyfoxw n759QjDtm7bkEQUp bQVrMPrmUWP3K76ni9Q7 JCJoPOFwIUH5sYC2vO4g bGlnbjogbGVmdDsgdmVy wMwmWWtdBKzkO627 IHRvcDsnPlBhdGllbnQg MoCsAKz4C1NsDsx6SKEn iRnbSG3ooSMjLRshQb9f nHdioRpsET3xTMKn awtgc251TjDwz3peQHIk vLErMSgxZQC4U21zs4W2 RGSjMXOtOEJ7qVM4fM4c bGlnbjogbGVmdDsg rjAaeEfuHAqgRNrqP431 IHRvcDsnPkJpcnRoIERh hZQ5LK84VP83uBHkz0D5 tUA3Q6YnKCMeegrf xkraaIC5TQOoRBRrlH29 Li6jrApsTl2hXODuJZV6 MXOezZMeI9BaiO5gVtZt FNNgGZVuU6PilVCh FIedF294MPepPtP9CJSr spMlT4ZmNMJyvRhhAeR5 e6Q3Pu6AZ3J0LU53SU35 bNXhh4J9zQP8Y1He AUKepcjmduiosPF2TJGq SLYenH85Qu2bfXsfFg1s ZCGaFUY4UEDgmFRjY8Eq rP8tEuTmKJMyQRZf Y1HejCQwBUqtR179PDsg GzV9BROzidScD9NjQERw fVnfOaX3u0J1Ob4JUYq8 TO79HX72fBQck5H0 lRO0F8AqOGRowppbwmph mUM4HWDjCLSpdH45Gz4k yTfeOi4yVXKyBPM6QKUb rHThU8EgoM7xSmBu WIWqAFFyC3RkcTKaFFzr M133DRxnTdO2JGUivsTy Z3JfIPQefWhzLkZ7g9T2 Qz0SCIGvCH01KZB4 qMM7QF04LK74H6VwNlbk dGFibGU+PHRhYmxlIHdp ZHRoPScxMDAlJyBzdHls AS6nDv8rWRWpSWDf hVihhTIyBjNlz0lgTMFb MLnuCE2nfOqbA9NjiFZ2 RIDvl6d5Mm53T97mW6Yg dXA+DTQufQB9xNP2 aY3wPrAhNyK6RHpzJ728 TkJolIFoNdkcp6cga4cc lTv7LlQ0BWNfqcBurGac DWU9j5JwNj38U21d IHdpZHRoPSIxNSUiIHZh kLwwmm2wzP7iEz0+PGNv hGU7wEN3cG7dCrQcYfO2 HFntD166TxBqdCPl Akrhj2vzy9ghpEg4NvEm JHUvayVjnIarIGF7m3Ef Sx06S6FzyUljy7GgYlf9 mx40aRQzg9U5qNY7 L8OuZRZabvnwdHCchXhh BV8tOTJvbarnRCAnnO1x KFYuQ7n5EgHjWbF7NLel D5YtwoE6GGYivEYq PWosBFS3O48qj6R2DPIm IPPeIVH9pRY1cW8qhIxq bjogbGVmdDsgdmVydGlj LMzoKDhfG877POTj hXwpTFHddU5mTVApnEZp gNgsFP8wOWMudnhwBa0T FDHHNQNALZAUFMCPWL9A SF52T1YuAbu5GMUh oWsgBU0srLSjMPbrQv1x wOdayKkcRH6iVURuicik FUOggF0wHRJjzRXvbInr GN7gPHMwklwrj225 IfMdRAK0QGHumAPhM1Vq bJ4cSqUgEPOhDEHkX5Kd aPDkRCaoH253YCfsOiU2 KEKkueMmV3MxKSCw aArsYzX7j5V4Km6lPK2k CE0nQADiPD02WO70wUBm e4H9vUV9F0CxSTDjjozq rpbjnSR5MHKuUUPl yG95xOKcULmlFd7xv0P4 s072AWMbKQZuaF77Gy7l jEkmJYIktYCXwM3noxig k2kufkmuTbQkNGOu AHb1BJz8FWXjtLvkHbJv PTH3FkN0PMK1pWMosH1u bJgjwalinQ9aWom+MjEg HYOxdbG8J2FzBed8 VTIdhBwoUT2flDYdSGom Lq2tyIlmfZuwHI2rBOEw xmvgDSRqkK1bEXTbyIOa nFicLI3fLRWnncee m315QiPvYEA0UKWmfTQt P9PhsY1gGxKuEUKfMYKn B8UcmPVnDHydZ061YZtb FbK9UDWaieCyA3Cs HPCwcUpgKeP2a9M3Gl1B WI0mkFA5D3ZjJqi5HRVi kGqcHZ3omEZxOScvMo6b yDfxnWafJG8qJWVv oualAYRvvJ5bXFCtiKUw bIxjPT0kNJKgriqyj289 GuXlLHK4VPOjqOXrY0Oy jI9ePwPoCQZhDLEi S8CheXZoFZdbV589KYok YmI4CADywtZiK6CyMHVa aDuxJwQ6a5V8Rv2QpXDy E4NlZ9c4U4JdJwxs dHI+JI55HVVgGA90vXUa hEDan2uwbVk4EyHcDAMp UKO6bXkgVHzuw9JoIJMn D80hsZKjl9F5ZPUe wZqoeYTeQnBppZK9xI5m AVywuuivy1bnwsmgPcmr i7gklu82eB39R05nLXpw ZHRoPSIzMCUiIHZh aPonbs3pjG3cWi9+PGNv yUF0zZC9rB4bGaVrHcD0 EHbbG497BlKzbFLzMthy g5crl9oduJo8XpSz KIWfkqIrkNsfZUG9w8Rz Ok66W15cYNaqXAZbYSAh IUSgYSVmaJznly4rfB3b Ii8+VD4cm1yurk74 bF55tKZ+QALdBGK8cFwe AWyqYJDhhE2zZMlfDyE6 LGQeCrWdwJ89nWRvKHrw Qt7pkBmseKsvDS6y DGRnzitak142MgNdc9ht EFNxfZXlTRscUYQ7U98c p1I7FCEvSUXlPJA9iCG8 bM0gqWotcvaduEDa dDsgdmVydGljYWwtYWxp D069APXbtVanEhJtjOPc Y9fuikQXUZ0gLrgezOB+ KRBmFXP5wBokXGbm RHMxbY6qWUEwK2c7ImUs UyM2QFtlI6AnawX6STWm pJMjMCHwqSKNrJ8iqkgg q9gyatctDpJcVSMo QBr1NNm0DDImtOpgVwFc AON5RhC0DAD0qSFgjQ7d aCroiichoN7eXnj+RklO OjwvdGQ+PHRkIHN0 rKuiYCmaSCGfdB4rUZSo A6a5PbOuWzC8RVxvX9Ly wuG8QIFanYJuSJUtiKZA nT7lmpyrs3atvvgw RrNvFYAzJBb4ZJk5YQRj nGqfVgZhNFD1MqH3OVI1 oCTaaT4lhIhcsywwnA6e Oyc+TVJOOjwvdGQ+ IJCvWVZ7yPchAVeaZWVn cA6aWCWuW0m2RaHpUpE2 BYooO9HrxmF1LGKlmHOe LRTlmZAHcP0rxtwx s6aaqnutRnTvUYYhFKu2 FEl5SDFfxWflWtVcSFI7 KkJ2PJE7fCKyhY5xvWij qrdywZ2hGwe+UGF5 WML7ZH80JU26H7MpQnou dGFibGU+PHRhYmxlIHdp ZHRoPScxMDAlJyBzdHls FV2sWh4zLYXvAHAn bGxh (more content not included)... Normal [facility] Drug screen multi urineon Amphetamine Screen, Ur [...] 50 ng/mL) Cocaine Metabolite, Urine Negative NEGATIVE [facility] Comment on above: (Positive cutoff 150 ng/mL) Methadone Screen, Urine Negative NEGATIVE [facility] Comment on above: (Positive cutoff 200 ng/mL) Methamphetamine, Urine Negative NEGATIVE [facility] Comment on above: (Positive cutoff 500 ng/mL) Opiates, Urine Negative NEGATIVE [facility] Comment on above: (Positive cutoff 100 ng/mL) Oxycodone Screen, Ur Negative NEGATIVE [facility] Comment on above: (Positive cutoff 100 ng/mL) Phencyclidine, Urine Negative NEGATIVE [facility] Comment on above: (Positive cutoff 25 ng/mL) Propoxyphene, Urine Negative NEGATIVE [facility] Comment on above: (Positive cutoff 300 ng/mL) Tricyclic Antidepressants, Urine Negative NEGATIVE [facility] Comment on above: (Positive cutoff 300 ng/mL) Drug screen results are to be used for medical purposes only. All positive results are unconfirmed. Testing for employment or legal uses should be sent to a reference laboratory for confirmation. [facility] Urinalysison 09-04-2022 Bilirubin Urine Negative NEGATIVE [facility] Color, UA Yellow Yellow [facility] Glucose, Ur Negative NEGATIVE [facility] Interpretation and review of laboratory results Abnormal [facility] Ketones Ql (U) MODERATE Abnormal NEGATIVE [facility] Leukocyte esterase Test strip Ql (U) Negative NEGATIVE [facility] Nitrite, Urine Negative NEGATIVE [facility] pH, UA 7.0 5.0 - 8.0 [facility] Protein, UA Negative NEGATIVE [facility] Specific [place], UA 1.010 1.005 - 1.030 [facility] Turbidity UA Clear Clear [facility] Urinalysis Comments [facility] Urine Hgb Negative NEGATIVE [facility] Urobilinogen, Urine Normal Normal [facility] Auto Diffon 09-02-2022 Basophils/100 WBC (Bld) 0.8 % Normal 0.0-2.0 [facility] Comment on above: Order Comment: Order Added by Discern Expert. Performed By: #### 2 183998, 1144209, 5577201, 9669139, 45815856, 0605972, 6168831 #### [facility] [address] [place] [address]457 Basophils/Leukocytes Auto (Bld) [Pure # fraction] 0.1 E9/L Normal 0.0-0.2 [facility] Comment on above: Order Comment: Order Added by Discern Expert. Performed By: #### 2 084243, 7286881, 9293327, 2937613, 63281534, 9125904, 8083420 #### [facility] [address] [place] [address] Eosinophils/100 WBC (Bld) 2.5 % Normal 0.0-8.0 [facility] Comment on above: Order Comment: Order Added by Discern Expert. Performed By: #### 2 722953, 0341576, 0399793, 4449673, 82253536, 0809069, 0634847 #### [facility] [address] [place] [address] Eosinophils/Leukocyte s Auto (Bld) [Pure # fraction] 0.2 E9/L Normal 0.0-0.5 [facility] Comment on above: Order Comment: Order Added by Discern Expert. Performed By: #### 2 360075, 6913671, 3331076, 1680828, 31760497, 1090318, 8350746 #### [facility] [address] [place] [address] 56678 Lymphocytes/100 WBC (Bld) 18.3 % Normal 14.0-50.0 [facility] Comment on above: Order Comment: Order Added by Discern Expert. Performed By: #### 2 965731, 3961796, 2618466, 6316617, 97840269, 4006510, 2796224 #### [facility] [address] [place] [address] 79371 Lymphocytes/Leukocyte s Auto (Bld) [Pure # fraction] 1.6 E9/L Normal 1.0-4.0 [facility] Comment on above: Order Comment: Order Added by Discern Expert. Performed By: #### 2 714766, 8366622, 1404244, 2419415, 71003465, 2423906, 1795118 #### [facility] [address] [place] [address] 48790 Monocytes/100 WBC (Bld) 6.8 % Normal 4.0-14.0 [facility] Comment on above: Order Comment: Order Added by Discern Expert. Performed By: #### 2 199087, 6126623, 1522771, 0434747, 09243246, 4479850, 6710917 #### [facility] [address] [place] [address]6981 Monocytes/Leukocytes Auto (Bld) [Pure # fraction] 0.6 E9/L Normal 0.2-1.0 [facility] Comment on above: Order Comment: Order Added by Discern Expert. Performed By: #### 2 586708, 2977967, 1659507, 4927077, 00109939, 8101387, 8805328 #### [facility] [address] [place] [address] 29001 Neutrophils/100 WBC (Bld) 71.6 % Normal 36.0-75.0 [facility] Comment on above: Order Comment: Order Added by Discern Expert. Performed By: #### 2 478163, 4304668, 4783411, 8734787, 22495000, 8284760, 4219211 #### [facility] [address] [place] [address] Neutrophils/Leukocyte s Auto (Bld) [Pure # fraction] 6.2 E9/L Normal 2.0-7.5 [facility] Comment on above: Order Comment: Order Added by Discern Expert. Performed By: #### 2 046207, 2628805, 0864236, 0691512, 47268099, 0210908, 9672661 #### [facility] [address] [place] [address] BMPon 09-02-2022 Creatinine [Mass/Vol] 0.4 mg/dL Low 0.5-1.3 [facility] Comment on above: Performed By: #### 2 419087, 3397057, 5772578, 5948444, 93991975, 1960052, 5148373 #### [facility] [address] [place] [address] Urea nitrogen [Mass/Vol] 5 mg/dL Normal 5-21 [facility] Comment on above: Performed By: #### 2 147965, 3517927, 6268548, 7175140, 75580985, 7498433, 5543559 #### [facility] [address] [place] [address] Urea nitrogen/Creatinine [Mass ratio] 12 No Units Normal 10-20 [facility] Comment on above: Performed By: #### 2 408315, 2199234, 1408076, 3186891, 76314248, 8672862, 3720643 #### [facility] [address] [place] [address] Anion gap [Moles/Vol] 12 mmol/L Normal 6-16 [facility] Comment on above: Performed By: #### 2 233899, 3058935, 2972794, 5071701, 16610552, 0584790, 5786269 #### [facility] [address] [place] [address] Calcium [Mass/Vol] 9.0 mg/dL Normal 8.9-11.1 [facility] Comment on above: Performed By: #### 2 794796, 7445277, 2491539, 4980599, 39687978, 1067122, 8687876 #### [facility] [address] [place] [address] Chloride [Moles/Vol] 103 mmol/L Normal 101-111 [facility] Comment on above: Performed By: #### 2 570302, 3338694, 6093845, 0130465, 25800563, 2599357, 3008277 #### [facility] [address] [place] [address] CO2 [Moles/Vol] 23 mmol/L Normal 21-31 [facility] Comment on above: Performed By: #### 2 999898, 4545352, 7469783, 3789692, 22937057, 4955620, 8960150 #### [facility] [address] [place] [address] Glucose [Mass/Vol] 96 mg/dL Normal 55-199 [facility] Comment on above: Result Comment: If t his glucose result represents a fasting glucose, interpretation should refer to the following reference range: 55-99 mg/dL Performed By: #### 2 480456, 1079769, 9961951, 8038764, 09990685, 0117658, 7686235 #### [facility] [address] [place] [address] Potassium [Moles/Vol] 3.3 mmol/L Low 3.5-5.3 [facility] Comment on above: Performed By: #### 2 734306, 8165919, 9682961, 4875788, 12558865, 1555902, 7385100 #### [facility] [address] [place] [address] Sodium [Moles/Vol] 135 mmol/L Normal 135-145 [facility] Comment on above: Performed By: #### 2 074377, 5254173, 2573860, 7278374, 66365071, 2447970, 4630339 #### [facility] [address] [place] [address] CBC w/ Auto Diffon 3 Erythrocyte distribution width (RBC) [Ratio] 13.0 % Normal 10.9-14.2 [facility] Comment on above: Performed By: #### 2 643044, 8530295, 3074165, 4359564, 59750152, 4613538, 3060688 #### [facility] [address] [place], [place] [id number] Hematocrit (Bld) [Volume fraction] 38.7 % Normal 34.0-46.0 [facility] Comment on above: Performed By: #### 2 196440, 2594661, 1110756, 6004814, 18001808, 4187608, 0585984 #### [facility] [address] [place] [address] Hemoglobin (Bld) [Mass/Vol] 13.2 g/dL Normal 12.0-16.0 [facility] Comment on above: Performed By: #### 2 316084, 2575475, 9246006, 0407913, 18644184, 3390911, 8995090 #### [facility] [address] [place] [address] 34674 MCH (RBC) [Entitic mass] 29.3 pg Normal 27.0-34.0 [facility] Comment on above: Performed By: #### 2 988406, 8290912, 4618877, 0132469, 02690138, 9882747, 3142283 #### [facility] [address] [place] [address] 61554 MCHC (RBC) [Mass/Vol] 34.2 g/dL Normal 31.4-36.0 [facility] Comment on above: Performed By: #### 2 068656, 7185971, 8656978, 9472636, 04158018, 2692848, 0178963 #### [facility] [address] [place] [address] 15780 MCV (RBC) [Entitic vol] 85.6 fL Normal 80.0-100.0 [facility] Comment on above: Performed By: #### 2 435281, 0452565, 2697541, 5136246, 59642119, 6816180, 4385802 #### [facility] [address] [place] [address] Platelet mean volume (Bld) [Entitic vol] 8.2 fL Normal 6.4-10.8 [facility] Comment on above: Performed By: #### 2 264391, 7428798, 0120180, 4523263, 66518183, 6747995, 6173102 #### [facility] [address] [place] [address] Platelets (Bld) [#/Vol] 281.0 E9/L Normal 150.0-500.0 [facility] Comment on above: Performed By: #### 2 504931, 7034889, 1544764, 9038038, 61651464, 8501379, 1965342 #### [facility] [address] [place], [place] [address] RBC (Bld) [#/Vol] 4.5 E12/L Normal 4.3-5.9 [facility] Comment on above: Performed By: #### 2 185026, 9971094, 4601064, 6455325, 47664940, 2869605, 3789179 #### [facility] [address] [place] [address]32[address] WBC corrected for nucl RBC Auto (Bld) [#/Vol] 8.6 E9/L Normal 4.0-11.0 [facility] Comment on above: Performed By: #### 2 032960, 9206679, 4290063, 1729882, 42039324, 7664513, 4302403 #### [facility] [address] [place] [address] Coding Summary.on 09-02-2022 Coding Summary. [id number] Gh0bWw+PGhlYWQ+PE1FV RDdH50pdIFvnR8SG0aDK J8LICBVDIGLSW6DBV2qb PC5EItfD8JpfqNz CboafWFyVP83CGx7MCU0 aSwiZBhhgL5oiKShC0j0 MjSkJJ18oV36OFfaBYHx JxI1NwTulqqnnIGp M6qgKkOlbZJjZoa+PHRh YmxlIHdpZHRoPScxMDAl NdSuhOtoFA2gJi7vZCPa LWNvbGxhcHNlOiBj g5ieCMVoAEvkHV0eoGws V1ZqcFD8EJFjl3p2Oo81 dHI+NYJdMBW0aJxaKZxp l110IcWvu2iqDPR4 mGTfXYgrRDJ4U87hu9S1 GKViKLOhUBB2gQB3qS4i tIdlxudhF0GxrGYnAgY7 HSX2fFYwkS0waLlx lkfayL6dNxd+V13HZK7I ZYVSYF6DNvb5H1DyFdts dHI+FQ18FPKoLW31oFKc pIDeh3yakYy4SdMm URBqQIP7fNskPGbjb6Bf XUUsY74gzXAxh3E5EOQj eGexhYIpRsKkaYH9uJ1b YYajnrqvs0qmnxii Ckviz9sbjr04nT02Q86q NAijEQWmWBQ4IVStPBXk lEhofl8pnU0aCk6+IDxj s5xka3opnJk3LbEy YHJusdRwuKwyCQA8t2Ef Mr14T3MxyEfhj1OvYel9 mq89hRCpk4X8rZD2JIsc CWFbxY5hAZapWeI4 SZKxHnEjmX11tZJvPCni Fu6rhLatgNgyDO4iJVMf grspVEBnxY6qHKVosKSe eLwcFI4rEPQgsjyg h369MlOnVLR7BBDodIOd R8ImhG0mHqSzAYRlOTDa L3KnjITnPOmjP409PCos AbZ1PPGymvRyU8Nt LVZgrJvmWyV1k7C3Ev3N v8QiloxfGUJ2TTmaEMYy HjC2KuKqRnJ5Y9BiBnu6 KKEynIjeLM9xD5Zn UEUgfgvsuffecUR1FOWc KBGzmO88oSByLLvjOr1b z2R6s247EEAaHMHajX29 Oo5vfNpuHXMuvIRD sW3nhfuuo3akgodbRfPe HRZoPHc3LRu1BSBfeYjg UnQtLPV2DaA4HOS4mGUo wQ7roGzhorymrE4f Oyc+J24vsA5jCET4ZPW6 fhwaQFRmriJjOU34JT79 U7OvNsfpcOUcfVC+PGRp iyJbpRwpZY5uTmHl t2kya8IiYGbdA1JpDAAl LWraCnn2QOQzIWB4rXA8 dG4sQVWdSTsmq0M5fOY9 O4LfpnBnpe8ic8ue OPQcQVbbQ11vzCAks3E8 UBZdcFR9GEUayMdkUrZk qB58Dsp+AWLvsEhuc8Kf Lnebh2dqq9nlgCj3 IjMwJSIgdmFsaWduPSJ0 t4NhPx95F53zZLyrKRYl UGEvPPJfJBSjjZubpa3z dZ9gSg3+PGNvbCB3 iRV8uK2yVJFtItO6VDwm Y909LkDhzYWnShubi9qz y2wkuPm1WdYgKJMcmeOn pMpsXKA3f9IhMx04 M55yUAjhXHKqFZTeLLYa TDWuaWrksj5rgC1nIr1+ GG2zr9sven59pX38gXW+ MVGbYSK2oMdpTUle QDBogA1mAXyqOoB2DWUx KyBkxF12iVCjAVwjTt2z zFaqbXylIR3eGEWpjkua i546SpVmd1coTDPd mCSiIRjfTVC0J87bu0I5 IGLwCYBsEHB0uPJ8mC7b bGlnbjogbGVmdDsgdmVy gFzjSJsfKXrnP343 IHRvcDsnPlBhdGllbnQg PuXoINt5T0AfNbx9QQCs zMvjAS6qhYOkCYoiPe8q eSsjoMijOB4hSXOd zpkeg266OxFff2crPEOq zXTpFHhiOWU8N34hm0Y7 JEKpZACqDDU4iBS9hA1o bGlnbjogbGVmdDsg ruExdQvhGIslHClgF763 IHRvcDsnPkJpcnRoIERh kZZ5RB26TB17tBPqs5F1 eOI7J1MdMMRhsfrd oxusaRI6UHPzDVGylF75 Oe6shRagNb1vPGOeALT9 PVBhlHBrH5NhlL5lAsUb UTQbSUKtZ3UfeUMe AXfxB556TJcaVuY9TFAw hdHeT2LyLXEwvUguHqS4 o3R6Aj9CW6N7KC99WL74 zPUdr5V1oTF5D7Df NABdsmbywarasFI6QEAf GKDoqS45Bk2rnMruMp7e YWEeEOI3LXFdmSFbN8Nb iJ1hNpGhZIGxVPRr L4LeiCKcLAvtS337NLxw OpM1MFZehwUmP3BdDMOb wPyfScK1y1N4Ut8ZAUc0 WW98BK97hZYts0I5 kBO7I0YaJSThyefnunqm wRR5RRZvWVJglC37Pz9w yAerJl6hKOPwYRF0XEGp qGFtU5HopW7dTsTy MXUaMXBhO5XqqMKoIQbe U730TQuwOhU5AYJfzhTx G9NtWHJjvUviIgJ8l5W1 Oo5PRRAvXX43QNW9 nJH7FE06DQ45M8UcDczw dGFibGU+PHRhYmxlIHdp ZHRoPScxMDAlJyBzdHls DB1bWc2eQLZpZDJt kQekrZXeXfJif7lbMFSh SWtpGZ2xuYzuL2ZhhOA5 GUOge3x7Mv84I01uM9Xz dXA+FIWjoIP5wJG9 eF6rOhJvDmP8JXnpB261 EaBrwKYqLvtva6wfu2hv zUx4MqE3VXVgxeRibYmk IFC0e9DkPz05I35y IHdpZHRoPSIxNSUiIHZh aCxnnc3gaS9iMt2+PGNv uHO9hNJ1tG4wFvVcHhX5 GStlA023FwHegWYw Gwvyj6bfz3tvyUv4FhDw HFJgppLmrMmoBRW4e4Fp Rv60I2NweMvuu6BfEym7 zt84iFQyc3C8xXF3 J9SmUCRytwvbjMNejMro WB6fGZCsncolMVNrrO8w LOVlT9j0NdHvQmE5FGiw M9AgncM6TFCjmZBw ZOjcAAL8E16xu2K9LVIu PRFhIVT4uHJ6pP7smSyg bjogbGVmdDsgdmVydGlj LSctBCnbO615AOKf oUosTIBvzF3kIAAzlJYk kZrsQK2jMGUblnmfQi3J SRFTGNFACYCCMDFCOQ7P ZT56D7LlVpu6IKUi jDfrBF0seVFpUUbhVg7w zGuawOkoPJ1oZLLibvxm RNNusH5aYQIwsJZzxEqq IU3iBRZcnyoao280 YdJsYDR7OKHpnHIpV1Rx nO6sTmPbOEFiAFFaT0Em qDYkGUcyT225REjyUxS4 HSPejnGlT4ZjNLZd hNgiVcQ7h8A4Da8tMV7i XA9eFSSlWP61QM80hBDn n2H6xJH6W1KpWSWofnts aigbmOE9WIMmNUNk dG76wQZzEMndXd6sc2S8 c450HVYwEOJdpJ73Yr0h nPnlMTNlmPNZnE1guqnu h3rdptlsFbJuWSTz CKh7SEk4GGCmlRzrDeWg YRS3QjG2KDF5cYMphJ1n vQbcripegF8fIhr+MjEg AZUoeaO6G9VrDym1 NWGkqEmzKO6vmAWvOIgm Zu3asKqvxNhrWP8yXWRa lgllFZQnyL2lOQAudADw hXxbFL7xXWLefhef g453YdUsYPN2CETmtHDa Z2ZbtG3nXvAsFDAxRJYv W2ZdgFByVPfhY759MJgx KlY4LTOreiIgS0Rn VBIxyJwvYyB0f8S6Qx2C SF0doQX4H3VuPzb9IDGn bFrwDN4kxMVlLTtoDh6x rPscePfpKI7hBCBr jzvtVLNzrT2kCLFpmPOv fVidPB9bNGMjkejlg087 AeVgFEM4SZAynNWtK8Tw sE0zViVxIUOwAXCv U5BklQIqSOogU013PFji FwY8GWYgujOwX2LgCICk yVnoUhE7r4F1Bj0XjTTp Q6KaV8r2Y7QvAstr dHI+EO76XTAwUA23tPHz mPFjk0zhrDg8ZcOwJWDv KOW8nVcgWBats1WwADKd A32flPQsj4Y8CDLp iDdyeUQuUmFkyXB3aB2e HDevfgeuu0yceyjuGulb h7nzzl24sM10L19cEQof ZHRoPSIzMCUiIHZh tBmqbg0goZ3xMp7+PGNv gUH3jBK6cR9hFpHeCuC3 BCdmP214InQbvPOeMdkq k7jho4yyhPg7OaCw RTTtldNnuAkuFCB1k9Og Gh97C13cASbkQCSrJRSy OIJwLRZomUxxlk6suQ4h Ii8+IO7uh9yogy87 wH07pCR+YWGgRHM0cTsk DGwxGDQyrJ4fKJnnVbQ0 JNViTfHbgX13eRZpPSmz Ho1pyAbziOdiUN3n JUHvoqttp641QhPld4gs GXHsxAFjKZjeNXS5D91z r5P1KDPmUYXfBZG4jRN8 vG1oyWjxhdnnqQCt dDsgdmVydGljYWwtYWxp T852ZXAtrNoyBeAvdXGv T1obbxRILO3mOouyoPK+ VNKaLRV3aSvhJAqp DOCkhS5iFFXrW0b8QiQq WuS9LBntK4RhqhX1MFCh dDCxQKQevPJGvR8vhlxl w7mnlrjvVxNxWLRm MYw0OJg0RRSxdQweTfHz ZLJ7RtC1WFC1sUQpnQ8v wXjlvfbgsM6mKhk+RklO OjwvdGQ+PHRkIHN0 pBrnUIsgTKDibK1iTRCb N2z9WgYgYlJ4WKpyI7Sz yuW2UAVooSYkGYPaoJZW zR7qjeiim6zdzjrk JaIgBXLgPLf3LKq0JCGl dArmRlOzBWN5OqM1HZO7 dVKlkF8xaCzyxwxzyA6p Oyc+TVJOOjwvdGQ+ NSTcJVQ4eGisFBgrQJKa uK9jBTKxO5k4KqJeAcD7 EMxlP1YelpS3FISbuMEo MWSflZDOnF9ocsye y8nifagtHcXqISClSQz9 KXm2MAJecFyzYcWzUGY2 IoY5YLE1dPUenN3rfZwy asqauK1pBcz+UGF5 UNZ9FO26YT96C7GpWeaw dGFibGU+PHRhYmxlIHdp ZHRoPScxMDAlJyBzdHls RR2pPj1bRNJgWAKo bGxh (more content not included)... [facility] Consent for Treatmenton Consent for Treatment [id number] #[email or web address] [facility] Discharge Instructionson Discharge Instructions [id number] 2#[email or web address]:127 [facility] ED Clinical Summaryon 2022 ED Clinical Summary [place] [id number] ED Clinical Summary Person Information Name: ROQUE PIERSON [facility] Age: 22 Years : 2000 Sex: Female Language: Togolese PCP: Caryn Aviles MD Marital Status: Single [...] 09/02/2022 01:12:07 09/02/2022 01:12:07 09/02/2022 01:12:07 ADDRESS: [address] [place] [phone] PHYS DOC NOTES: MEDICAL INFORMATION: Prescriptions Given: [...] Address: When: Caryn [place] [place] [address] [facility] ([employer] In 3 days DIAGNOSIS: N&V (nausea and vomiting) [facility] ED Note-Physicianon 09-02-19 ED Note-Physician Basic Information [...] In [address] [place] [address]- Business (1) Additional Instructions: Patient Education Nausea [...] (09/01/22 22:50:00) (more content not included)... [facility] Comment on above: Result Comment: Elec tronically [...] added (diluted fruit juice). ? Eat bland, psmw-gy-kkzhzl foods in small amounts as you are able. These foods include bananas, applesauce, rice, lean meats, toast, and crackers. ? Avoid fluids that contain a lot of sugar or caffeine, such as energy drinks, sports drinks, and soda. ? Avoid alcohol. ? Avoid spicy or fatty foods. General instructions ? Take ktlx-tsh-hvotsui and prescription medicines only as told by your health care provider. ? Drink enough fluid to keep your urine pale yellow. ? Wash your hands often using soap and water. If soap and water are not available, use hand mask design engineer. ? Make sure that all people in [...] and drinking to prevent dehydration. ? Take wbxn-zbc-icipxht and prescription medicines only as told by [...] 08/11/2006 Document Revised: 12/03/2019 Document Reviewed: 01/19/2019 [employer] Patient Education ? 2019 [employer] [facility] ED Patient Summaryon 023 ED Patient Summary [place] [id number] Patient Discharge Instructions Person Information Name: ROQUE PIERSON Age: 22 Years Arrival Date: 09/01/2022 22:21:17 Discharge Diagnosis: N&V (nausea and vomiting) Primary Care Physician: Caryn Aviles MD Provider Information Primary Provider: Coleman Ludwig DO Advanced Rn Recovery:None The exam and treatment you received in the Emergency Department were for an urgent problem and are not intended as complete care. It is important that you follow up with a doctor, nurse practitioner, or physician?s costumer assistant for ongoing care. If your symptoms [...] Address: When: C[place] [address] Business (1) In 3 days In the event that this physician does not participate in your insurance network, please consult with your insurance company to find a nearby participating provider. Patient Education Materials: Nausea and Vomiting, Adult A MESSAGE TO ALL PATIENTS REGARDING OPIOIDS PRESCRIPTION OPIOIDS: WHAT YOU NEED TO KNOW Prescription opioids can be used to help relieve igxdgguu-xl-ufmlki pain and are often prescribed following a [...] be struggling with addiction, tell your health pulmonary care nurse and ask for guidance or call [facility] National Helpline at [phone]. v Source: Department of (more content not included)... Normal [facility] Hep Func Panelon 09-02-2022 Bilirubin.indirect [Mass or moles/Vol] UTC Abnormal 0.1-0.9 [facility] Comment on above: Result Comment: Resu lt verified by Discern Rule. Performed result UTC (Unable to Calculate) was sent as an Alpha code due the inability to calculate a valid numeric value. Performed By: #### 2 369436, 9221912, 6102708, 7933095, 81624879, 8958366, 5797947 #### [facility] [address] [place] [address] Albumin [Mass/Vol] 4.2 g/dL Normal 3.3-5.0 [facility] Comment on above: Performed By: #### 2 871505, 5980713, 6165885, 6569061, 93488636, 7148817, 3172704 #### [facility] [address] [place] [address] Albumin/Globulin (S) [Mass conc ratio] 1.4 Normal 1.1-2.2 [facility] Comment on above: Performed By: #### 2 202645, 6849130, 4034302, 3147523, 71432726, 8826319, 5402410 #### [facility] [address] [place] [address]692 ALP [Catalytic activity/Vol] 63 Int._Unit/L Normal 21-98 [facility] Comment on above: Performed By: #### 2 323209, 8234582, 2585381, 8177543, 03737466, 1986651, 5072799 #### [facility] [address] [place], [place] [address] ALT No additional P-5'-P [Catalytic activity/Vol] 29 Int._Unit/L Normal 6-46 [facility] Comment on above: Performed By: #### 2 442134, 3537316, 5710007, 6822848, 89760072, 8259777, 7405238 #### [facility] [address] [place] [address] 69700 AST [Catalytic activity/Vol] 18 Int._Unit/L Normal 5-43 [facility] Comment on above: Performed By: #### 2 289958, 3335078, 9505001, 9356453, 12794038, 3573622, 9306693 #### [facility] [address] [place] [address]35[address] Bilirubin [Mass/Vol] 0.8 mg/dL Normal 0.0-1.1 [facility] Comment on above: Performed By: #### 2 169698, 4608591, 4454795, 0346785, 73626789, 4247051, 7410092 #### [facility] [address] [place] [address] Bilirubin.direct [Mass/Vol] mg/dL Normal 0.1-0.4 [facility] Comment on above: Performed By: #### 2 556964, 1221586, 5122061, 8389812, 68671908, 6323139, 3109841 #### [facility] [address] [place] [address] Globulin (S) [Mass/Vol] 3.1 g/dL Normal 1.4-4.0 [facility] Comment on above: Performed By: #### 2 790930, 0377391, 4203704, 9497314, 60605714, 5612628, 5177162 #### [facility] [address] [place] [address] Protein [Mass/Vol] 7.3 g/dL Normal 6.0-7.8 [facility] Comment on above: Performed By: #### 2 598998, 9258464, 3358195, 4252372, 51411098, 6689567, 1044103 #### [facility] [address] [place] [address] Lipase Levelon 09-02-2022 Lipase [Catalytic activity/Vol] 26 U/L Normal 13-58 [facility] Comment on above: Performed By: #### 2 528823, 7767270, 4716697, 0438237, 91652767, 1449038, 0666245 #### [facility] [address] [place] [address] UA With Cult Reflexon 2022 Bacteria LM Ql (Urine sed) TRACE Normal Trace [facility] Comment on above: Performed By: #### 1 9298659 ####[facility] [address] [place] [address] Bilirubin Ql (U) Negative Normal Negative [facility] Comment on above: Performed By: #### 1 7252884 ####[facility] [address] [place] [address] Clarity (U) CLEAR Normal Clear [facility] Comment on above: Performed By: #### 1 4022100 ####[facility] [address] [place] [address] Color (U) YELLOW Normal Yellow [facility] Comment on above: Performed By: #### 1 7086383 ####[address] [address] Epithelial cells.squamous LM.HPF (Urine sed) [#/Area] 0-2 Normal 0-2 [facility] Comment on above: Performed By: #### 1 3215428 ####[facility] [address] [place] [address] Glucose Test strip (U) [Mass/Vol] Negative Normal Negative [facility] Comment on above: Performed By: #### 1 6994486 ####[address] [address] Hemoglobin Ql (U) Negative Normal Negative [facility] Comment on above: Performed By: #### 1 9080622 ####[address] [address] Ketones (U) [Mass/Vol] 3+ Abnormal Negative [facility] Comment on above: Performed By: #### 1 7535902 ####[address] [address] Yuba.plasma/Lithiu m.RBC (Bld) [Mass ratio] 0-3 Normal 0-3 [facility] Comment on above: Performed By: #### 1 4720781 ####[facility] [address] [place] [address] Mucus Ql (Urine sed) 2+ Normal Fish [facility] Comment on above: Performed By: #### 1 9831653 ####[address] [address] Nitrite Ql (U) Negative Normal Negative [facility] Comment on above: Performed By: #### 1 0300596 ####[address] [address] pH (U) 7.5 [pH] Invalid Interpretation Code 5.0-9.0 [facility] Comment on above: Performed By: #### 1 4644320 ####[facility] [address] [place] [address] Protein (U) [Mass/Vol] Negative Normal Negative [facility] Comment on above: Performed By: #### 1 2593376 ####[address] [address] Specific gravity (U) [Rel density] 1.020 Invalid Interpretation Code 1.005-1.030 [facility] Comment on above: Performed By: #### 1 1641785 ####[facility] [address] [place] [address] Type of Urine collection method Clean Catch Normal [facility] Comment on above: Performed By: #### 1 0652630 ####[address] [address] Urobilinogen Qn (U) 0.2 {Andrea'U}/dL Normal 0.0-1.0 [facility] Comment on above: Performed By: #### 1 1536141 ####[facility] [address] [place] [address] WBC Auto Ql (U) Negative Normal Negative [facility] Comment on above: Performed By: #### 1 2391242 ####[facility] [address] [place] [address] WBC LM.HPF (Urine sed) [#/Area] 0-5 Normal 0-5 [facility] Comment on above: Performed By: #### 1 6797039 ####[facility] [address] [place] [address] eGFRon 09-02-2022 GFR/1.73 sq M.predicted among blacks MDRD (S/P/Bld) [Vol rate/Area] mL/min/{1.73_m2} Normal >=59 [facility] Comment on above: Order Comment: Order Added by Discern Expert. Result Comment: eGFR is race adjusted. AA=. Performed By: #### 2 869876, 5172644, 4850074, 2609673, 81624117, 5915534, 8655608 #### [facility] [address] [place] [address] GFR/1.73 sq M.predicted among non-blacks MDRD (S/P/Bld) [Vol rate/Area] mL/min/{1.73_m2} Normal >=59 [facility] Comment on above: Order Comment: Order Added by Discern Expert. Result Comment: Cable Engineer emil kidney disease could be indicated at eGFR's of less than 60 mL/min/1.73m2. Kidney failure is indicated at less than 15 mL/min/1.73m2. Performed By: #### 2 937816, 7562269, 3824309, 9415791, 85038032, 9433165, 5185925 #### [facility] [address] [place] [address] ABO/Rhon 08-29-2022 ABO/Rh Positive Invalid Interpretation Code [facility] Comment on above: Performed By: #### 1 6445229 #### [facility] [address] [place] [address] Auto Diffon 08-29-2022 Basophils/100 WBC (Bld) 0.6 % Normal 0.0-2.0 [facility] Comment on above: Order Comment: Order Added by Discern Expert. Performed By: #### 2 647520, 9356400, 1970443, 3791898, 90319661, 4640341, 5916430 #### [facility] [address] [place] [address] Basophils/Leukocytes Auto (Bld) [Pure # fraction] 0.0 E9/L Normal 0.0-0.2 [facility] Comment on above: Order Comment: Order Added by Discern Expert. Performed By: #### 2 270121, 9231768, 4548946, 2657065, 61492761, 6516727, 4617433 #### [facility] [address] [place] [address] Eosinophils/100 WBC (Bld) 5.7 % Normal 0.0-8.0 [facility] Comment on above: Order Comment: Order Added by Discern Expert. Performed By: #### 2 536848, 9363703, 8859642, 7634395, 92542988, 2853803, 8837695 #### [facility] [address] [place] [address] Eosinophils/Leukocyte s Auto (Bld) [Pure # fraction] 0.5 E9/L Normal 0.0-0.5 [facility] Comment on above: Order Comment: Order Added by Discern Expert. Performed By: #### 2 537155, 4307381, 5316400, 5125910, 07148304, 7218187, 5892894 #### [facility] [address] [place] [address] Lymphocytes/100 WBC (Bld) 20.5 % Normal 14.0-50.0 [facility] Comment on above: Order Comment: Order Added by Discern Expert. Performed By: #### 2 786735, 4579182, 1119610, 5751391, 77341175, 9347745, 8986213 #### [facility] [address] [place] [address] Lymphocytes/Leukocyte s Auto (Bld) [Pure # fraction] 1.7 E9/L Normal 1.0-4.0 [facility] Comment on above: Order Comment: Order Added by Discern Expert. Performed By: #### 2 546719, 1699690, 0380886, 1373858, 24031771, 0521461, 4298831 #### [facility] [address] [place] [address] Monocytes/100 WBC (Bld) 8.4 % Normal 4.0-14.0 [facility] Comment on above: Order Comment: Order Added by Ally Expert. Performed By: #### 2 879968, 0856713, 7039708, 0833828, 94016741, 1856993, 2610424 #### [facility] [address] [place] [address] Monocytes/Leukocytes Auto (Bld) [Pure # fraction] 0.7 E9/L Normal 0.2-1.0 [facility] Comment on above: Order Comment: Order Added by Discern Expert. Performed By: #### 2 246880, 0661040, 3551064, 1251883, 05628955, 7898898, 5226359 #### [facility] [address] [place] [address] Neutrophils/100 WBC (Bld) 64.8 % Normal 36.0-75.0 [facility] Comment on above: Order Comment: Order Added by Discern Expert. Performed By: #### 2 572654, 5150635, 5233690, 2992055, 68155085, 8801254, 9967552 #### [facility] [address] [place] [address] Neutrophils/Leukocyte s Auto (Bld) [Pure # fraction] 5.3 E9/L Normal 2.0-7.5 [facility] Comment on above: Order Comment: Order Added by Discern Expert. Performed By: #### 2 417679, 9065957, 3352103, 2292656, 92933355, 3066766, 6135681 #### [facility] [address] [place] [address] BMPon 08-29-2022 Creatinine [Mass/Vol] 0.6 mg/dL Normal 0.5-1.3 [facility] Comment on above: Performed By: #### 2 606964, 1094157, 0819146, 2114729, 28669670, 3765729, 6400619 #### [facility] [address] [place] [address] Urea nitrogen [Mass/Vol] 6 mg/dL Normal 5-21 [facility] Comment on above: Performed By: #### 2 452071, 1312576, 5615248, 7919783, 68943260, 7478297, 2881534 #### [facility] [address] [place] [address] Urea nitrogen/Creatinine [Mass ratio] 10 No Units Normal 10-20 [facility] Comment on above: Performed By: #### 2 615977, 0389796, 7710045, 2742294, 54843337, 8246424, 5148651 #### [facility] [address] [place] [address] Anion gap [Moles/Vol] 11 mmol/L Normal 6-16 [facility] Comment on above: Performed By: #### 2 108104, 1389550, 1292747, 2485857, 20727615, 5188888, 0890246 #### [facility] [address] [place] [address] Calcium [Mass/Vol] 9.1 mg/dL Normal 8.9-11.1 [facility] Comment on above: Performed By: #### 2 683930, 7862276, 8267223, 5264342, 16695072, 2980586, 9808611 #### [facility] [address] [place] [address] Chloride [Moles/Vol] 105 mmol/L Normal 101-111 [facility] Comment on above: Performed By: #### 2 055462, 3848965, 5756023, 5852039, 12861292, 9067060, 5338215 #### [facility] [address] [place] [address] CO2 [Moles/Vol] 23 mmol/L Normal 21-31 [facility] Comment on above: Performed By: #### 2 441765, 3392972, 9512259, 9037943, 57751596, 3376910, 8222491 #### [facility] [address] [place] [address] Glucose [Mass/Vol] 103 mg/dL Normal 55-199 [facility] Comment on above: Result Comment: If t his glucose result represents a fasting glucose, interpretation should refer to the following reference range: 55-99 mg/dL Performed By: #### 2 510938, 8706238, 8457550, 2768172, 46427508, 4048785, 0502341 #### [facility] [address] [place] [address] Potassium [Moles/Vol] 3.7 mmol/L Normal 3.5-5.3 [facility] Comment on above: Performed By: #### 2 269470, 0895057, 7732793, 2536312, 87670658, 7445998, 9967324 #### [facility] [address] [place] [address] Sodium [Moles/Vol] 135 mmol/L Normal 135-145 [facility] Comment on above: Performed By: #### 2 374498, 9590866, 1303549, 9090999, 64693135, 3070723, 2881951 #### [facility] [address] [place] [address] BhCG Quanton 08-29-2022 [place] [address] m[IU]/mL High 1-3 [facility] Comment on above: Result Comment: GEST ATIONAL AGE HCG RANGE (mIU/mL) NON- <1-3 0.2-1 WEEKS 5-50 1-2 WEEKS 50-500 2-3 WEEKS 100-5,000 3-4 WEEKS 500-10,000 4-5 WEEKS 1,000-50,000 5-6 WEEKS 10,000-100,000 6-8 WEEKS 15,000-200,000 8-12 WEEKS 10,000-100,000 Performed By: #### 2 318864, 5901159, 0718823, 2655171, 43761830, 3052284, 1100700 ####[facility] [address] [place] [address] CBC w/ Auto Diffon 3 Erythrocyte distribution width (RBC) [Ratio] 13.1 % Normal 10.9-14.2 [facility] Comment on above: Performed By: #### 2 782015, 1528169, 1375816, 2659106, 19408859, 6107658, 1871275 #### [facility] [address] [place] [address] Hematocrit (Bld) [Volume fraction] 39.2 % Normal 34.0-46.0 [facility] Comment on above: Performed By: #### 2 204161, 0798343, 2152036, 1754613, 61162811, 9833749, 0683800 #### [facility] [address] [place] [address] Hemoglobin (Bld) [Mass/Vol] 13.5 g/dL Normal 12.0-16.0 [facility] Comment on above: Performed By: #### 2 715633, 7768177, 5824799, 5362051, 31892222, 4957844, 2422749 #### [facility] [address] [place] [address] MCH (RBC) [Entitic mass] 29.5 pg Normal 27.0-34.0 [facility] Comment on above: Performed By: #### 2 628029, 5685950, 5247804, 0003407, 83032801, 7425606, 8739690 #### [facility] [address] [place], [place] [address] MCHC (RBC) [Mass/Vol] 34.3 g/dL Normal 31.4-36.0 [facility] Comment on above: Performed By: #### 2 350003, 6602966, 9144638, 7445319, 88766235, 0168371, 5906734 #### [facility] [address] [place] [address] MCV (RBC) [Entitic vol] 85.8 fL Normal 80.0-100.0 [facility] Comment on above: Performed By: #### 2 481877, 2270594, 8025896, 9630458, 48684241, 2758784, 2260845 #### [facility] [address] [place] [address] Platelet mean volume (Bld) [Entitic vol] 8.3 fL Normal 6.4-10.8 [facility] Comment on above: Performed By: #### 2 222593, 6690852, 6312369, 7646790, 00916872, 2718580, 6802377 #### [facility] [address] [place] [address] Platelets (Bld) [#/Vol] 279.0 E9/L Normal 150.0-500.0 [facility] Comment on above: Performed By: #### 2 664182, 7579249, 6710636, 4174108, 36492976, 9697897, 4159692 #### [facility] [address] [place] [address] RBC (Bld) [#/Vol] 4.6 E12/L Normal 4.3-5.9 [facility] Comment on above: Performed By: #### 2 435670, 7167896, 0488496, 0527988, 37756063, 8882596, 5637381 #### [facility] [address] [place] [address] WBC corrected for nucl RBC Auto (Bld) [#/Vol] 8.1 E9/L Normal 4.0-11.0 [facility] Comment on above: Performed By: #### 2 366412, 6896114, 6841112, 3355930, 64062518, 4439043, 6849975 #### [facility] [address] [place] [address] Coding Summary.on 08-29-2022 Coding Summary. CD:[id number] Gh0bWw+PGhlYWQ+PE1FV ZUsT71xrBZxlF9RH8wRG J9VDSKGHLIJGN4EDE0pf EO3VBqqH1PyfaHe ZqqgfVSfWJ69WKa3YMD0 bSbyFHwhxF9ftSZnB8s8 CiGqIV98vW27SYjyMLUe IwN2XsVuprkarTAr E1spUgHerHXrKip+PHRh YmxlIHdpZHRoPScxMDAl FeIxaSvoNY8dWe0qGCPw LWNvbGxhcHNlOiBj z8qmGNSbOQsxGA3fiVhk H8CjsIO5LHMiq9k1Hl22 dHI+WCEhPXK8fWfeRSsm d277LqVox5fcPTB4 wVAmRWspLQH9X63ho2G2 UXYhKSNgIUE6vDQ4tJ3g oRbdxykjH2CfcFByXoX4 OOB5cMLtrY0snGsn hslyhI4hDyp+S93ZBS8E QTHWZH0MVvj0Y7UlSadk dHI+PZ17CPRiAA54aSUg gHAcs3gloIg4EiYd ABQtTSH3iRhzEYwih7Nd OAMsY17orAHru3F4XPZv aKdmgUZzGlCxlMI0lS6r UMzssrgyr2ggrxmn Drdiy5yrtl66xI64K63w NZszCRXpJSV4WWMyNIYp tOgbxi3htN0cGs6+IDxj c2jfe5qnfGz7UvZq NGYpoaQsdDcrRYI8k5An Zk59Y3TmaHbuz3PzHwm4 wy74dKUgn4N8fKG6SZae JNWwfE4fAVlwNkZ8 CGSbUoNjsO06ePLkRMyn Ev7dvZiqqNzqTD6oQBZb bcqvXRVgeP5hVTIqxARl aVsuCS6jLXMesrgo p724VgHrEMX7WEFedJZp M8CzqN4zSaMlLPEaCURs O1RwdOKiFMokG786CCdb JjX8ORScoyZkB5Xh NXNbmHtwLyH3b5A1Nn2B k0UeuffpBRX5KOhwOFNq KdE2NvFfZwN5G1XyRul9 LMCcvTrrNN0gD0Iz GPYhsxwvknqqwCO1CCEg GQZmhR98fYBnIBmwRn4d y5D0z384VUSjPFJwhV85 Mq3hyZwxGMGgrLAM oZ5ehbmue3odyvdsWhXr FSKvLUe6ZCs9OIEklIfm EcQfZPH3JyO0ARX7gCDh bQ4voQxpsxmpnS2n Oyc+G28jsT0dBUX1MCU1 hdldJIBkunDxUZ02HL52 N3DjCpopoBOqpDV+PGRp jaAwrVgwBL3xNyWw r6fgr3JkEGixQ3WaNCYy MRebZfy3FSDfBQU7nOB4 wG1pCQYtBQuls0Y6mJD1 W7ZlgxIgle7br6nw QSKkWHovV15vlCCwl8S3 UAUhlHG3TQVosXkgRfMr zA66Sjg+PVBzeXajy7Uj Qohia1wdj0vimYd7 IjMwJSIgdmFsaWduPSJ0 y1KuZa26F05xCZruKQXw GITuNUQbRIRvaUjzrx5y tL1sRi7+PGNvbCB3 zOU6uQ0iDYQqOcF1JMqz X403WvNomPSlGzaxv4do m9awtZl7RkQwEUJowfEy hNlsIDL9x8FuGq84 C04yRLliLCEqIZEaICIa VQXycSusqf4udN1eFa6+ GC0qv7dwav69uI91vCE+ VCFmDZA6eXctABvd PLVfcV3wYTqwHkM5ULCr QiWvgE42aJVdKElnMn8p iTroeIjnST9qOHSbctuv m292CiUnj5daDMId kUWyCYrqVHP0O14ka5B3 BMXeCOBbERS6jBR6xB7n bGlnbjogbGVmdDsgdmVy dSroUBhpHUzkJ058 IHRvcDsnPlBhdGllbnQg JjLcBKv1E7KaZfi9ALWx nWezEL8xtHBnPRksGh3o vIszfMhpGM5gWQZy rndfs692BmBrs0mxTWXo yJNyGPgjSSW0Q26dt2E0 ZEQnOGLeBDK9eZO7lH0j bGlnbjogbGVmdDsg xrDwiOwzBJzrIBlsF881 IHRvcDsnPkJpcnRoIERh iOS2VD98WF34zVEtg7H7 oNC1V2EzFCUkpmol hfqstIL4HOOeFWHcaQ13 Ap0yePtaDr4gJBRbKJQ6 RQRyiMZdQ1GyqY1dVsCs SLOlXTAaJ0KyqHXk MSplB612CYbvPjY8YZFq jdPmJ3FvTBWrkAqaFrS9 v8V5Pz8NR6C2FD64UP91 aZTdh1O9wSQ9O9Mf HIAqnodahxdzdSN1ZLNj ETTnjO38Go7gnRztYy9i OSMrQCW9UTUntBWoV3Am tG2mDxYcDUFfNIHh W6UltNRwOQszG191WAqc QhM3UKEgjjVjG0IgBAYf bUvnFfX7a3A9Bz1JOZa8 VF83VB39yNGfg2M5 xYG0E2AuVBRqzjgpymnc vHS7DAZqQZRnbZ76Ba4i kDuiIo1hRZKpLBG5AZAt kCWyE8UpkF7kSlIg PSHfGIBsP4OunPWqCEgn S890GUxbUnN5SCGbhaHy Y4JyUEPtoUkvPnM1g8E9 Vo6WJUOwFR13VDH7 xSI3YX49YM32V3DhEbuc dGFibGU+PHRhYmxlIHdp ZHRoPScxMDAlJyBzdHls DA4qZb2rSFOtPYZo gBbxfLUkPmRak6thRJKx IYpxZO9luCvlH7GnuBH0 CGKyi9y9Pb75R35qK6Dt dXA+MZMipDB4xKV6 yP9cIkXqPpI3ADbbU467 TtZefBZtAxhqx0fat5hx xIh8FjU5DMXnczPsdSgu DQO2g6BpTr51D33k IHdpZHRoPSIxNSUiIHZh hUfxti9kxH8pHw9+PGNv uYX4vAD1oU0uApVlYpO9 ZBicL426ZjFskIQy Cgzyw7axu7suhWq0AuAq UWDwbpTiiMetZFH9q6Bm Ni66J4QauYifi8XvJtb0 zc15xFDlu1V3pBS7 G6PrBFNlixlstWRyzVxr KY0tGUFysitiTTLcgT4n FFEsG4v7HfDhWhG3JIyz R7DfeeR3GEAbnLMc DIciRXQ9T84ty9Z8LKBr YSXaNYM7lJT7bY1quXlt bjogbGVmdDsgdmVydGlj BQrkQFgoN936YQZe bOtiFCDisS3gXBRbaJFo yFvwPS6tBJUeducbSn4F TOKZDQPHAOYWTYZDLF5L OP97Z7IuRwd5MOIn kMciJS0zjPJzHUjsYq1i jYhczHavDZ9vJKKjwngt JFTnwF8tXRJwsEBjnHrl ES0dXPWxxfnhj003 YdAsSBE6HJIxwXXiA3Ir wE7kIyLpDPDpVLNhT2Sg xASxDTxcD036GXrtCxT5 SWHfvkBwN2TsGDAb kRpnKkY6a3G0Ut5rCH1a CE5uGXNlLJ47EH51iFCi r6W8fMY7B9ZoFWBsmfjw momixVY6BTLyPRUp uU34zSQnZZimJw9co6N6 z118YMUaLWUqhS32Kl3t eRzmGNQvrZMIaA4budmg m7wjliqoChCqQEKs SIb4MUg0KJYmnZfiKnXh BYV5YgI3WRZ1nZIpjM9u hIttcoaixP2zAbj+MjEg AIUdmwP1C2PlHtm1 VGZuoQajBN9ksQXkFTaa Pp4htMpqnXzsIK5sJPSv sobaPMRctG4cOHAfoQWi dHzxEQ5aUHLvwafn q708DgSlJKY6RQXtcGBv J5HdmX0jAuJoFIVhWNWa E1SwpDSfIUxuU455JFop EhU8VXMgudAqV8Ga AGAetAraAdW1e7L0Ns1Z UU5ywRK1L8LbVbg9SELj rClqOT9kgWOlUHowSx3b jVjwaOgxQP1vQUFq peeuJRLugD6yQYSknWDa tUsfZR2oOXYphijll048 YxAwEJU5MDElySYaN9Ws aY2nSuMyKYNjINRd Z9KcrDLrRYfnT942ZOcb AdJ2UWTwdoAsC0XmLNEe bOaePgK1j4C9Ef7VaAIb G0OdN4g3L8KxTdmk dHI+YT05HLNdVB51gZTk rZCiw0cqsRz9OyDtXNDy LZO0aWixCJvex3SaHXUe O59wpXKod3O7FJAo yZonfXWeHvLnxAY5aN4w QAnurcwyt2ejwnpkEpgv i3fisw84sK29Z11rNLkw ZHRoPSIzMCUiIHZh sOwnxu2qyI2rPf5+PGNv sDT9qBI6xH9nHmBoGhJ9 CRwmK700TzAioVUhQmeh j5uxo7ztnWx1YlXi QOXofrAwsWlfDYJ4g9Ef Pl94L38sQGnmNVIkFEXc ZYXaYNIofFygia4nyY2h Ii8+FQ4gr8krzj24 fK17vJP+WMQjMVA6sUaq HHsoQIIuxQ7zAXbzGxR7 JDUnPwRcnU32cIFlUGhb Eg8ukXupzZpgOB5y YTMiczjbl150ZrMlx5fj ZMKlqOXbVVdqVPY4F06t p9E6NYHoPSFtJHJ7cLF0 wJ2etWkdjrkqoJOs dDsgdmVydGljYWwtYWxp S670YXRkmXsmLcEapXJz J9lfwcYUAD6aUvxpbNH+ LRXzTNB3qCsxYBdu DMXlaR6pMMJaT3w9CaOf PdB3YWwcT8IdsaG8RITn lWExBZGykHLGzX2eaqps h9lxjbvjWpPzZVLa TKc7UNf6MSYlxFirNjIk EAL0YcW0WCH1iPCkiT4o fIjdxgexwC3oPeg+RklO OjwvdGQ+PHRkIHN0 rXplCRiyAZJosP8tUNMu T7c5QdMjZgZ3HBhvL1Hc urR5MCBfbOOcTEGzvJZP tZ6tznoxf4tmtowt ReZkXKRmSWx6XGb0KEAn xXsqVfCnJVJ4DtH3WRV8 cWKgzR2nsEzxqmkbyX2u Oyc+TVJOOjwvdGQ+ FKXlJCG9vIgiPJvsWWZe kV9yHLZkJ1n5IqWcWyM7 QOtrS6QratL0BJCwkNJh ZVUdwNGRnT5zhsev u7veyprmPnLcEVZyJEf4 IJq5IYIdpDogBjGuRBU0 ZbX1VMO5sZQivB8crSsy kvfmhK3nKxv+UGF5 AEP6DW34SZ60J6DkNwaw dGFibGU+PHRhYmxlIHdp ZHRoPScxMDAlJyBzdHls AF7uPg3fTHBxBZQh bGxh (more content not included)... Normal [facility] Discharge Instructionson Discharge Instructions [id number] Normal [facility] ED Clinical Summaryon 2022 ED Clinical Summary [place] [id number] ED Clinical Summary Person Information [facility] Age[facility] 22 Years : 2000 Sex: Female Language: Togolese PCP: Delfin Urbano MD Marital Status: Single [...] 08/29/2022 01:49:39 08/29/2022 01:49:39 08/29/2022 01:49:39 ADDRESS: [address] [place] [address] [id number] PHYS DOC NOTES: MEDICAL INFORMATION: Prescriptions Given: [...] Pain During Follow up: With: Address: When: [address] [place] [address] Business (1) In 3 days 09/01/2022 Comments: Return to the emergency room if your pain gets worse, general bleeding, vomiting or any new symptoms With: Address: When: Delfin Urbano [address] [place] [address], [place] [address] Business (1) In 3 days DIAGNOSIS: 1:Abdominal pain; 2:Intrauterine ; 3:Nausea Normal [facility] ED Note-Physicianon 08-29-19 ED Note-Physician Basic Information [...] and Complexity of Problems Differential Diagnosis: [] [facility] Data External documents reviewed: [] My [...] PRN Follow-up With When Contact Information Julius KEIRA In 3 days 09/01/[address] [place] [address] Business (1) Additional Instructions: Return to the emergency room if your pain gets worse, general bleeding, vomiting or any new symptoms Delfin Hoy (more content not included)... Normal [facility] Comment on above: Result Comment: Elec tronically Signed By: Anu Ziegler, Alfredito Hoang\.br\Date and Time Signed: 08/29/22 03:00 [facility] ED Patient Education Noteon 08-29-2022 ED Patient [...] added (diluted fruit juice). ? Eat bland, zuym-fk-tbszfq foods in small amounts as you are able. These foods include bananas, applesauce, rice, lean meats, toast, and crackers. ? Avoid drinking fluids that contain a lot of sugar or caffeine, such as energy drinks, sports drinks, and soda. ? Avoid alcohol. ? Avoid spicy or fatty foods. General instructions ? Take gtyk-aes-neewonu and prescription medicines only as told by your health care provider. ? Rest at home while you recover. ? Drink enough fluid to keep your urine pale yellow. ? Breathe slowly and deeply when you feel nauseous. ? Avoid smelling things that have strong odors. ? Wash your hands often using soap and water. If soap and water are not available, use hand mask design engineer. ? Make sure that all people in [...] recommendations for eating and drinking and take kfmy-ibx-roecdjd and prescription medicines only as told by [...] 09/18/2005 Document Revised: 01/19/2019 Document Reviewed: 01/19/2019 Diurnal Patient Education ? 2019 [employer]ajie. Obstetrics and Gynecology First Trimester of The [...] be form (more content not included)... Normal [facility] ED Patient Summaryon 023 ED Patient Summary [place] [id number] Patient Discharge Instructions Person Information Name: ROQUE PIERSON Age: 22 Years Arrival Date: 08/28/2022 21:27:40 Discharge Diagnosis: 1:Abdominal pain; 2:Intrauterine ; 3:Nausea Primary Care Physician: Delfin Urbano MD Provider Information Primary Provider: Alfredito Brennan M.D. Advanced Rn Recovery:None The exam and treatment you received in the Emergency Department were for an urgent problem and are not intended as complete care. It is important that you follow up with a doctor, nurse practitioner, or physician?s costumer assistant for ongoing care. If your symptoms become worse or you do not improve as expected and you are unable to reach your usual health care provider, you should return to the Emergency Department. We are available 24 hours a day. DANGELO, ROQUE Kellogg has been given the following list of patient education materials, prescriptions and follow-up instructions: Follow-up Instructions: With: Address: When: [facility], [address] [place] [address] , [facility] [place] [address] Business (1) In 3 days 09/01/2022 Comments: Return to the emergency room if your pain gets worse, general bleeding, vomiting or any new symptoms With: Address: When: Delfin Urbano [address] [place] [address], [place] [address] Business [...] opioids can be used to help relieve jjdzolwo-cn-cjuxbl pain and are often prescribed following a [...] guidance from (more content not included)... Normal [facility] Hep Func Panelon 08-29-2022 Bilirubin.indirect [Mass or moles/Vol] UTC Abnormal 0.1-0.9 [facility] Comment on above: Result Comment: Resu lt verified by Discern Rule. Performed result UTC (Unable to Calculate) was sent as an Alpha code due the inability to calculate a valid numeric value. Performed By: #### 2 757594, 9224896, 1510411, 2065331, 17904555, 0323576, 0656059 #### [facility] [address] [place] [address] Albumin [Mass/Vol] 4.2 g/dL Normal 3.3-5.0 [facility] Comment on above: Performed By: #### 2 944033, 3416134, 8816834, 6240751, 47937869, 7581463, 8461849 #### [facility] [address] [place] [address] Albumin/Globulin (S) [Mass conc ratio] 1.3 Normal 1.1-2.2 [facility] Comment on above: Performed By: #### 2 489813, 6023244, 5648608, 5390752, 02863090, 6865017, 9914411 #### [facility] [address] [place] [address] ALP [Catalytic activity/Vol] 69 Int._Unit/L Normal 21-98 [facility] Comment on above: Performed By: #### 2 575070, 9612396, 8654933, 1958289, 22651404, 0721280, 9814166 #### [facility] [address] [place] [address] ALT No additional P-5'-P [Catalytic activity/Vol] 57 Int._Unit/L High 6-46 [facility] Comment on above: Performed By: #### 2 401341, 4233170, 5285081, 1727484, 14531652, 5476073, 3569520 #### [facility] [address] [place] [address] AST [Catalytic activity/Vol] 41 Int._Unit/L Normal 5-43 [facility] Comment on above: Performed By: #### 2 919441, 8370726, 1020655, 9683789, 27516571, 5374622, 2602498 #### [facility] [address] [place] [address] Bilirubin [Mass/Vol] 0.4 mg/dL Normal 0.0-1.1 [facility] Comment on above: Performed By: #### 2 301922, 3855815, 6804344, 1911880, 98896283, 0338044, 9449255 #### [facility] [address] [place] [address] Bilirubin.direct [Mass/Vol] mg/dL Normal 0.1-0.4 [facility] Comment on above: Performed By: #### 2 867506, 8586229, 1778521, 8938824, 41807442, 2415394, 8153499 #### [facility] [address] [place] [address] Globulin (S) [Mass/Vol] 3.3 g/dL Normal 1.4-4.0 [facility] Comment on above: Performed By: #### 2 026654, 9296128, 8883365, 1283043, 75283247, 6415799, 4220200 #### [facility] [address] [place] [address] Protein [Mass/Vol] 7.5 g/dL Normal 6.0-7.8 [facility] Comment on above: Performed By: #### 2 132160, 9930608, 7592145, 3718521, 56442118, 3344690, 8235548 #### [facility] [address] [place] [address] Lipase Levelon 08-29-2022 Lipase [Catalytic activity/Vol] 29 U/L Normal 13-58 [facility] Comment on above: Performed By: #### 2 302922, 3414902, 1028912, 9501255, 36368237, 4011946, 9881681 #### [facility] [address] [place] [address] Prescriptions/Work Noteson 0 08-29-2022 Prescriptions/Work Notes [id number] 9#1.00CD:127 Normal [facility] UA With Cult Reflexon 2022 Bacteria LM Ql (Urine sed) 1+ /HPF Abnormal Trace [facility] Comment on above: Performed By: #### 1 1044402 ####[facility] [address] [place] [address] Bilirubin Ql (U) Negative Normal Negative [facility] Comment on above: Performed By: #### 1 6407683 ####[facility] [address] [facility] [place] [address] Clarity (U) CLEAR Normal Clear [facility] Comment on above: Performed By: #### 1 8748428 ####[facility] [address] [facility] [place] [address] Color (U) YELLOW Normal Yellow [facility] Comment on above: Performed By: #### 1 1209393 ####[facility] [address] [place] [address] Epithelial cells.squamous LM.HPF (Urine sed) [#/Area] 3-4 Normal 0-2 [facility] Comment on above: Performed By: #### 1 4457018 ####[facility] [address] [place] [address] Glucose Test strip (U) [Mass/Vol] Negative Normal Negative [facility] Comment on above: Performed By: #### 1 3093063 ####[facility] [address] [facility] [place] [address] Hemoglobin Ql (U) Negative Normal Negative [facility] Comment on above: Performed By: #### 1 5293721 ####[facility] [address] [facility] [place] [address] Ketones (U) [Mass/Vol] 3+ Abnormal Negative [facility] Comment on above: Performed By: #### 1 2652733 ####[facility] [address] [place] [address] Yuba.plasma/Lithiu m.RBC (Bld) [Mass ratio] 0-3 Normal 0-3 [facility] Comment on above: Performed By: #### 1 5124115 ####[facility] [address] [place] [address] Nitrite Ql (U) Negative Normal Negative [facility] Comment on above: Performed By: #### 1 5678408 ####[facility] [address] [place] [address] pH (U) 7.0 [pH] Invalid Interpretation Code 5.0-9.0 [facility] Comment on above: Performed By: #### 1 0353284 ####[place] [address] Protein (U) [Mass/Vol] Negative Normal Negative [facility] Comment on above: Performed By: #### 1 9874847 ####[place] [address] Specific gravity (U) [Rel density] 1.015 Invalid Interpretation Code 1.005-1.030 [facility] Comment on above: Performed By: #### 1 5206761 ####[place] [address] Type of Urine collection method Clean Catch Normal [facility] Comment on above: Performed By: #### 1 1570948 ####[place] [address] Urobilinogen Qn (U) 0.2 {Andrea'U}/dL Normal 0.0-1.0 [facility] Comment on above: Performed By: #### 1 5805368 ####[place] [address] WBC Auto Ql (U) TRACE Abnormal Negative [facility] Comment on above: Performed By: #### 1 6513585 ####[place] [address] WBC LM.HPF (Urine sed) [#/Area] 0-5 Normal 0-5 [facility] Comment on above: Performed By: #### 1 7323244 ####[address] [address] URINALYSISOrdered By: Davidson Watson on 08-29-2022 Bacteria LM Ql (Urine sed) 1+ /HPF Invalid Interpretation Code Trace/HPF [facility] UA Auto SS Bilirubin Ql (U) Negative (08/29/22 12:34 AM) Normal Negative [facility] UA Auto SS Clarity (U) Clear (08/29/22 [...] Interpretation Code Negative [facility] UA Auto SS Yuba.plasma/Lithiu m.RBC (Bld) [Mass ratio] 0-3 /HPF Normal [...] [facility] UA Auto SS Urobilinogen Qn (U) 0.3217815 {Andrea'U}/dL Normal 0.0 - 1.0 EU/dL [facility] [...] corresponding gestational age +/- 1 week are: [place] Length: 0.7 cm Composite Ultrasound Age: [...] Size = Dates Uterus Position Anteverted Normal [facility] eGFRon 08-29-2022 GFR/1.73 sq M.predicted among blacks MDRD (S/P/Bld) [Vol rate/Area] mL/min/{1.73_m2} Normal >=59 [facility] Comment on above: Order Comment: Order added by Discern Expert. Result Comment: eGFR is race adjusted. AA=. Performed By: #### 2 465795, 3820353, 8335395, 1049010, 99254521, 0034431, 4258163 #### [facility] [address] [place] [address] GFR/1.73 sq M.predicted among non-blacks MDRD (S/P/Bld) [Vol rate/Area] mL/min/{1.73_m2} Normal >=59 [facility] Comment on above: Order Comment: Order added by Discern Expert. Result Comment: Cable Engineer emil kidney disease could be indicated at eGFR's of less than 60 mL/min/1.73m2. Kidney failure is indicated at less than 15 mL/min/1.73m2. Performed By: #### 2 743028, 5566168, 2646603, 3071630, 57494296, 6843413, 8308396 #### [facility] [address] [place] [address] BLOOD BANKOrdered By: Davidson Watson on 08-28-2022 ABO/Rh Interp Positive Invalid Interpretation Code [facility] BB Subsection CHEMISTRYOrdered By: SYSTEM SYSTEM on 08-28-2022 Albumin [Mass/Vol] 4.2 g/dL Normal 3.3 - 5.0 gm/dL [facility] Albumin/Globulin [Mass ratio] 1.3 {ratio} Normal 1.1 - 2.2 [facility] ALP [Catalytic activity/Vol] 69 [iU]/d Normal 21 - 98 Int._Unit/L [facility] Remisol ALT No additional P-5'-P [Catalytic activity/Vol] 57 [iU]/d High 6 - 46 Int._Unit/L [facility] Remisol Anion gap [Moles/Vol] 11 mmol/L Normal 6 - 16 mEq/L [facility] Remisol AST [Catalytic activity/Vol] 41 [iU]/d Normal 5 - 43 Int._Unit/L [facility] Remisol Bilirubin [Mass/Vol] 0.4 mg/dL Normal 0.0 - 1 .1 mg/dL [facility] Bilirubin.direct [Mass/Vol] mg/dL Normal 0.1 - 0.4 mg/dL [facility] Remisol Bilirubin.indirect [Mass or moles/Vol] Unable to Calculate mg/dL Invalid Interpretation Code 0.1 - 0.9 mg/dL [facility]isol Calcium [Mass/Vol] 9.1 mg/dL Normal 8.9 - 11. 1 mg/dL [facility] Chloride [Moles/Vol] 105 mmol/L Normal 101 - 1 11 mmol/L [facility] CO2 [Moles/Vol] 23 mmol/L Normal 21 - 31 mmol/L [facility] Creatinine [Mass/Vol] 0.6 mg/dL Normal 0.5 - 1.3 mg/dL [facility] GFR/1.73 sq M.predicted among blacks MDRD (S/P/Bld) [Vol rate/Area] mL/min/1.73 m2 Normal >=59mL/min/1. 73 m2 [facility] Chem S GFR/1.73 sq M.predicted among non-blacks MDRD (S/P/Bld) [Vol rate/Area] mL/min/1.73 m2 Normal >=59mL/min/1. 73 m2 [facility] Chem S Globulin (S) [Mass/Vol] 3.3 g/dL Normal 1.4 - 4.0 gm/dL [facility] Glucose [Mass/Vol] 103 mg/dL Normal 55 - 199 mg/dL [place] [address] m[IU]/mL High 1 - 3 mIU/mL [facility] Lipase [Catalytic activity/Vol] 29 U/L Normal [...] for Treatmenton Consent for Treatment [id number] #1.00CD:127 Normal [facility] HEMATOLOGYOrdered By: SYSTEM SYSTEM on 08-28-2022 Basophils/100 [...] 85.8 fL Normal 80.0 - 100.0 fL [facility] HemeAutoSS Platelet mean volume (Bld) [Entitic vol] 8.3 fL Normal 6.4 - 10.8 fL [facility] HemeAutoSS Platelets (Bld) [#/Vol] 279.0 E9/L Normal 150.0 - 500.0 E9/L [facility] HemeAutoSS RBC (Bld) [#/Vol] 4.6 E12/L Normal 4.3 - 5.9 E12/L [facility] HemeAutoSS WBC corrected for nucl RBC Auto (Bld) [#/Vol] 8.1 E9/L Normal 4.0 - 11.0 E9/L [facility] HemeAutoSS Auto Diffon 08-26-2022 Basophils/100 WBC (Bld) 0.6 % Normal 0.0-2.0 [facility] Comment on above: Order Comment: Order Added by Discern Expert. Performed By: #### 1 2081204, 8373297, 9340732, 5950819, 9713113 ####[facility] [address] [place] [address] Basophils/Leukocytes Auto (Bld) [Pure # fraction] 0.1 E9/L Normal 0.0-0.2 [facility] Comment on above: Order Comment: Order Added by Discern Expert. Performed By: #### 1 1719642, 4830595, 9390577, 3536007, 0567516 ####[facility] [address] [place] [address] Eosinophils/100 WBC (Bld) 3.4 % Normal 0.0-8.0 [facility] Comment on above: Order Comment: Order Added by Discern Expert. Performed By: #### 1 5784214, 2632663, 9068165, 8129893, 2172632 ####[facility] [address] [place] [address] Eosinophils/Leukocyte s Auto (Bld) [Pure # fraction] 0.4 E9/L Normal 0.0-0.5 [facility] Comment on above: Order Comment: Order Added by Discern Expert. Performed By: #### 1 8832603, 7024801, 9900258, 2215829, 9239938 ####[facility] [address] [place] [address] Lymphocytes/100 WBC (Bld) 12.4 % Low 14.0-50.0 [facility] Comment on above: Order Comment: Order Added by Discern Expert. Performed By: #### 1 4072753, 1820624, 7225714, 0648474, 6899184 ####[place] [address] [place] [address] Lymphocytes/Leukocyte s Auto (Bld) [Pure # fraction] 1.6 E9/L Normal 1.0-4.0 [facility] Comment on above: Order Comment: Order Added by Discern Expert. Performed By: #### 1 9822318, 4221503, 1498230, 1834886, 8513890 ####[address] [address] Monocytes/100 WBC (Bld) 4.2 % Normal 4.0-14.0 [facility] Comment on above: Order Comment: Order Added by Discern Expert. Performed By: #### 1 4721776, 6852895, 6806114, 6505050, 2959250 ####[address] [address] Monocytes/Leukocytes Auto (Bld) [Pure # fraction] 0.5 E9/L Normal 0.2-1.0 [facility] Comment on above: Order Comment: Order Added by Discern Expert. Performed By: #### 1 5589294, 9114368, 2687269, 7085097, 8727796 ####[facility] [address] [place] [address] Neutrophils/100 WBC (Bld) 79.4 % High 36.0-75.0 [facility] Comment on above: Order Comment: Order Added by Discern Expert. Performed By: #### 1 7371119, 6926604, 4828455, 2484457, 0666492 ####[place] [address] [place] [address] Neutrophils/Leukocyte s Auto (Bld) [Pure # fraction] 10.3 E9/L High 2.0-7.5 [facility] Comment on above: Order Comment: Order Added by Discern Expert. Performed By: #### 1 1206112, 2311206, 2663437, 3465990, 4503089 ####[place] [address] [place] [address] CBC w/ Auto Diffon Erythrocyte distribution width (RBC) [Ratio] 13.3 % Normal 10.9-14.2 [facility] Comment on above: Performed By: #### 1 1462009, 8337929, 7048968, 9768030, 9391600 ####[place] [address] [place] [address] Hematocrit (Bld) [Volume fraction] 39.7 % Normal 34.0-46.0 [facility] Comment on above: Performed By: #### 1 8656470, 8280601, 0275114, 3932147, 0270184 ####[place] [address] Hemoglobin (Bld) [Mass/Vol] 13.6 g/dL Normal 12.0-16.0 [facility] Comment on above: Performed By: #### 1 8700235, 0835757, 4960762, 1827397, 6310061 ####[address] [address] MCH (RBC) [Entitic mass] 29.4 pg Normal 27.0-34.0 [facility] Comment on above: Performed By: #### 1 4458869, 6934547, 6984081, 5987324, 5209924 ####[place] [address] [place] [address] MCHC (RBC) [Mass/Vol] 34.1 g/dL Normal 31.4-36.0 [facility] Comment on above: Performed By: #### 1 7729164, 0606612, 3507601, 1578368, 7142534 ####[address] [address] MCV (RBC) [Entitic vol] 86.1 fL Normal 80.0-100.0 [facility] Comment on above: Performed By: #### 1 5959180, 8334591, 2913770, 5038536, 6051122 ####[facility] [address] [place] [address] Platelet mean volume (Bld) [Entitic vol] 7.9 fL Normal 6.4-10.8 [facility] Comment on above: Performed By: #### 1 5023472, 7366029, 9112728, 2157107, 6457610 ####[place] [address] [place] [address] Platelets (Bld) [#/Vol] 340.0 E9/L Normal 150.0-500.0 [facility] Comment on above: Performed By: #### 1 1753376, 8680203, 6089559, 7320556, 1862199 ####[place] [address] [place] [address] RBC (Bld) [#/Vol] 4.6 E12/L Normal 4.3-5.9 [facility] Comment on above: Performed By: #### 1 8975399, 0856043, 3997491, 4243744, 9590943 ####[facility] [address] [place] [address] WBC corrected for nucl RBC Auto (Bld) [#/Vol] 13.0 E9/L High 4.0-11.0 [facility] Comment on above: Performed By: #### 1 1909405, 0525338, 9880039, 3841779, 7766411 ####[place] [address] [place] [address] CHEMISTRYOrdered By: SYSTEM SYSTEM on 08-26-2022 Albumin [...] 11. 1 mg/dL [facility] Chloride [Moles/Vol] 103 mmol/L Normal 101 - 1 11 mmol/L [facility]isol CO2 [Moles/Vol] 21 mmol/L Normal 21 - 31 mmol/L [facility] Remisol Creatinine [Mass/Vol] 0.6 mg/dL Normal 0.5 - 1.3 mg/dL [facility] GFR/1.73 sq M.predicted among blacks MDRD (S/P/Bld) [Vol rate/Area] mL/min/1.73 m2 Normal >=59mL/min/1. 73 m2 [facility] Chem S GFR/1.73 sq M.predicted among non-blacks MDRD (S/P/Bld) [Vol rate/Area] mL/min/1.73 m2 Normal >=59mL/min/1. 73 m2 [facility] Chem S Globulin (S) [Mass/Vol] 3.4 g/dL [...] 133 mmol/L Low 135 - 145 mmol/L [facility] Urea nitrogen [Mass/Vol] 9 mg/dL Normal 5 - 21 mg/dL [facility] Remisol Urea nitrogen/Creatinine [Mass ratio] 15 mg/mg Normal 10 - 20 [facility] Remisol CMPon 08-26-2022 Albumin [Mass/Vol] 4.4 g/dL Normal 3.3-5.0 [facility] Comment on above: Performed By: #### 1 8568172, 4102738, 5683975, 8171468, 9770953 ####[facility] [address] [place] [address] Albumin/Globulin (S) [Mass conc ratio] 1.3 Normal 1.1-2.2 [facility] Comment on above: Performed By: #### 1 4011089, 0113098, 2666244, 9836993, 4136378 ####[facility] [address] [place] [address] ALP [Catalytic activity/Vol] 66 Int._Unit/L Normal 21-98 [facility] Comment on above: Performed By: #### 1 7029912, 4536577, 2911004, 5474437, 9213740 ####[facility] [address] [place] [address] ALT No additional P-5'-P [Catalytic activity/Vol] 20 Int._Unit/L Normal 6-46 [facility] Comment on above: Performed By: #### 1 4424548, 8758497, 2228406, 5277485, 8959707 ####[facility] [address] [place] [address] AST [Catalytic activity/Vol] 20 Int._Unit/L Normal 5-43 [facility] Comment on above: Performed By: #### 1 1625007, 4009245, 4339486, 3175759, 6587409 ####[facility] [address] [place] [address] Bilirubin [Mass/Vol] 0.6 mg/dL Normal 0.0-1.1 [facility] Comment on above: Performed By: #### 1 0136033, 6954267, 0521756, 1382029, 2721181 ####[facility] [address] [place] [address] Creatinine [Mass/Vol] 0.6 mg/dL Normal 0.5-1.3 [facility] Comment on above: Performed By: #### 1 8602206, 0095845, 8782760, 8787968, 0181205 ####[facility] [address] [place] [address] Globulin (S) [Mass/Vol] 3.4 g/dL Normal 1.4-4.0 [facility] Comment on above: Performed By: #### 1 5064546, 4569648, 1470281, 6472205, 5031781 ####[facility] [address] [place] [address] Protein [Mass/Vol] 7.8 g/dL Normal 6.0-7.8 [facility] Comment on above: Performed By: #### 1 8064668, 7356337, 0885562, 5591764, 0453157 ####[facility] [address] [place] [address] Urea nitrogen [Mass/Vol] 9 mg/dL Normal 5-21 [facility] Comment on above: Performed By: #### 1 5138232, 1982442, 8171116, 3900255, 2164908 ####[facility] [address] [place] [address] Urea nitrogen/Creatinine [Mass ratio] 15 No Units Normal 10-20 [facility] Comment on above: Performed By: #### 1 0038372, 5433098, 1691704, 4337179, 1865175 ####[facility] [address] [place] [address] Anion gap [Moles/Vol] 13 mmol/L Normal 6-16 [facility] Comment on above: Performed By: #### 1 7603170, 1724587, 1762280, 6893176, 5179284 ####[facility] [address] [place] [address] Calcium [Mass/Vol] 9.4 mg/dL Normal 8.9-11.1 [facility] Comment on above: Performed By: #### 1 7555646, 8934945, 6027155, 2234492, 5837943 ####[facility] [address] [place] [address] Chloride [Moles/Vol] 103 mmol/L Normal 101-111 [facility] Comment on above: Performed By: #### 1 9079796, 3257557, 0147883, 6837468, 9241151 ####[facility] [address] [place] [address] CO2 [Moles/Vol] 21 mmol/L Normal 21-31 [facility] Comment on above: Performed By: #### 1 6325902, 8841054, 7020557, 6586377, 8281030 ####[facility] [address] [place] [address] Glucose [Mass/Vol] 123 mg/dL Normal 55-199 [facility] Comment on above: Result Comment: If t his glucose result represents a fasting glucose, interpretation should refer to the following reference range: 55-99 mg/dL Performed By: #### 1 6891281, 1146949, 0107838, 6794251, 9620726 ####[facility] [address] [place] [address] Potassium [Moles/Vol] 3.7 mmol/L Normal 3.5-5.3 [facility] Comment on above: Performed By: #### 1 9420614, 5616036, 6145483, 6357580, 7639769 ####[facility] [address] [place] [address] Sodium [Moles/Vol] 133 mmol/L Low 135-145 [facility] Comment on above: Performed By: #### 1 6314322, 7157001, 3742373, [id number], [id number] ####[facility] [address] [place] [address] Consent for Treatmenton Consent for Treatment [id number] #1.00CD:127 Normal [facility] Discharge Instructionson Discharge Instructions [id number]#1.00CD:127 Normal [facility] ED Clinical Summaryon 2022 ED Clinical Summary [place] [id number] ED Clinical Summary Person Information Name: [facility] Age[facility] 22 Years : 2000 Sex: Female Language: Togolese PCP: Delfin Urbano MD Marital Status: Single [...] 08/26/2022 12:55:17 08/26/2022 12:55:17 08/26/2022 12:55:17 ADDRESS: [address] [place] [phone] PHYS DOC NOTES: MEDICAL INFORMATION: Prescriptions Given: [...] Follow up: With: Address: When: [facility], [address] [facility] , [place], [place] [id number] Business (1) In 3 days 08/29/2022 With: Address: When: Delfin Urbano [address] [facility], [place] [address] Business (1) In 3 days DIAGNOSIS: Hyperemesis gravidarum Normal [facility] ED Note-Physicianon 08-26-19 ED Note-Physician Basic Information Time Seen: Kei Moore DO 08/26/2022 11:01 Chief Complaint pt reports nausea for 2-3 weeks, Seen in [place] ED for this and given fluids/meds in ED. Mild abd pain. Pt reports 6 wks . History of Present Illness 22 female presents emergency department with intractable nausea and vomiting. Patient states that she is about 6 weeks she is G1, P0 and has had prior ultrasound done in [place]. 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 She is discharged with prescription for [...] Information [facility] In 3 days 08/29/[address] , [place] [address]- Business (1) Additional Instructions: Delfin Urbano In 3 days [address] [facility] [place] [address]- Business (1) Additional Instructions: Problem [...] Household t (more content not included)... Normal [facility] Comment on above: Result Comment: Elec tronically Signed By: Kei Moore DO\.br\Date and Time Signed: 08/26/22 12:48 EST ED Patient Education Noteon 08-26-2022 ED Patient Education Note Normal [facility] ED Patient Summaryon 023 ED Patient Summary [place] [id number] Patient Discharge Instructions Person Information Name: ROQUE PIERSON Age: 22 Years Arrival Date: 08/26/2022 10:59:05 Discharge Diagnosis: Hyperemesis gravidarum Primary Care Physician: Delfin Urbano MD Provider Information Primary Provider: Kei Moore DO Advanced Rn Recovery:None The exam and treatment you received in the Emergency Department were for an urgent problem and are not intended as complete care. It is important that you follow up with a doctor, nurse practitioner, or physician?s costumer assistant for ongoing care. If your symptoms [...] Follow-up Instructions: With: Address: When: [facility], [address] [place] [address] [place] [address] Business (1) In 3 days 08/29/2022 With: Address: When: Delfin Urbano [facility] [facility], [place] [address] Business (1) In 3 days In the event that this physician does not participate in your insurance network, please consult with your insurance company to find a nearby participating provider. Patient Education Materials: A MESSAGE TO ALL PATIENTS REGARDING OPIOIDS PRESCRIPTION OPIOIDS: WHAT YOU NEED TO KNOW Prescription opioids can be used to help relieve dtczxhie-pi-cjxozn pain and are often prescribed following a [...] your he (more content not included)... Normal [facility] HEMATOLOGYOrdered By: SYSTEM SYSTEM on 08-26-2022 Basophils/100 [...] 79.4 % High 36.0 - 75.0 % [facility] Neutrophils/Leukocyte s Auto (Bld) [Pure # fraction] 10.3 E9/L High 2.0 - 7.5 E9/L [facility] HEMATOLOGYOrdered By: Meagan Hilton on 08-26-2022 Erythrocyte distribution width (RBC) [Ratio] 13.3 % Normal 10.9 - 14.2 % [facility] Hematocrit (Bld) [Volume fraction] 39.7 % Normal 34.0 - 46.0 % [facility] Hemoglobin (Bld) [Mass/Vol] 13.6 g/dL Normal 12.0 - 16.0 gm/dL [facility]eAutoSS MCH (RBC) [Entitic mass] 29.4 pg Normal 27.0 - 34.0 pg [facility]Auto[facility] MCHC (RBC) [Mass/Vol] 34.1 g/dL Normal 31.4 - 36.0 gm/dL [facility] MCV (RBC) [Entitic vol] 86.1 fL Normal 80.0 - 100.0 fL [facility] Platelet mean volume (Bld) [Entitic vol] 7.9 fL Normal 6.4 - 10.8 fL [facility] Platelets (Bld) [#/Vol] 340.0 E9/L Normal 150.0 - 500.0 E9/L [facility] RBC (Bld) [#/Vol] 4.6 E12/L Normal 4.3 - 5.9 E12/L [facility] WBC corrected for nucl RBC Auto (Bld) [#/Vol] 13.0 E9/L High 4.0 - 11.0 E9/L [facility] Lipase Levelon 08-26-2022 Lipase [Catalytic activity/Vol] 27 U/L Normal 13-58 [facility] Comment on above: Performed By: #### 1 [id number], [id number] ####[facility] [address] [place] [address] UA With Cult Reflexon 2022 Bacteria LM Ql (Urine sed) TRACE Normal Trace [facility] Comment on above: Performed By: #### 1 [id number] #### [facility] Laboratory [address] [place] [address] Bilirubin Ql (U) Negative Normal Negative [facility] Comment on above: Performed By: #### 1 [id number] #### [facility] [address] [place] [address] Clarity (U) CLEAR Normal Clear [facility] Comment on above: Performed By: #### 1 [id number] #### [facility] [address] [place] [address] Color (U) YELLOW Normal Yellow [facility] Comment on above: Performed By: #### 1 [id number] #### [facility] [address] [place] [address] Epithelial cells.squamous LM.HPF (Urine sed) [#/Area] 5-8 Normal 0-2 [facility] Comment on above: Performed By: #### 1 [id number] #### [facility] [address] [place] [address] Glucose Test strip (U) [Mass/Vol] Negative Normal Negative [facility] Comment on above: Performed By: #### 1 [id number] #### [facility] [address] [place] [address] Hemoglobin Ql (U) Negative Normal Negative [facility] Comment on above: Performed By: #### 1 [id number] #### [facility] [address] [place] [address] Ketones (U) [Mass/Vol] 2+ Abnormal Negative [facility] Comment on above: Performed By: #### 1 [id number] #### [facility] [address] [place] [address] Yuba.plasma/Lithiu m.RBC (Bld) [Mass ratio] 0-3 Normal 0-3 [facility] Comment on above: Performed By: #### 1 [id number] #### [facility] [address] [place] [address] Mucus Ql (Urine sed) 2+ Normal Fish [facility] Comment on above: Performed By: #### 1 [id number] #### [facility] [address] [place] [address] Nitrite Ql (U) Negative Normal Negative [facility] Comment on above: Performed By: #### 1 [id number] #### [facility] [address] [place] [address] pH (U) 8.5 [pH] Invalid Interpretation Code 5.0-9.0 [facility] Comment on above: Performed By: #### 1 [id number] #### [facility] [address] [place] [address] Protein (U) [Mass/Vol] TRACE Abnormal Negative [facility] Comment on above: Performed By: #### 1 [id number] #### [facility] [address] [place] [address] Specific gravity (U) [Rel density] 1.015 Invalid Interpretation Code 1.005-1.030 [facility] Comment on above: Performed By: #### 1 [id number] #### [facility] [address] [place] [address] Type of Urine collection method Clean Catch Normal [facility] Comment on above: Performed By: #### 1 [id number] #### [facility] [address] [place] [address] Urobilinogen Qn (U) 0.2 {Andrea'U}/dL Normal 0.0-1.0 [facility] Comment on above: Performed By: #### 1 [id number] #### [facility] [address] [place] [address] WBC Auto Ql (U) Negative Normal Negative [facility] Comment on above: Performed By: #### 1 [id number] #### [facility] [address] [place] [address] WBC LM.HPF (Urine sed) [#/Area] 0-5 Normal 0-5 [facility] Comment on above: Performed By: #### 1 [id number] #### [facility] [address] [place] [address] URINALYSISOrdered By: Renato Norman on 08-26-2022 Bacteria [...] Interpretation Code Negative [facility] UA Auto SS Yuba.plasma/Lithiu m.RBC (Bld) [Mass ratio] 0-3 /HPF Normal [...] [facility] UA Auto SS Urobilinogen Qn (U) 0.6209970 {Andrea'U}/dL Normal 0.0 - 1.0 EU/dL [facility] UA Auto SS WBC Auto Ql (U) Negative (08/26/22 12:01 PM) Normal Negative [facility] UA Auto SS WBC LM.HPF (Urine sed) [#/Area] 0-5 /HPF Normal 0-5/HPF [facility] UA Auto SS eGFRon 08-26-2022 GFR/1.73 sq M.predicted among blacks MDRD (S/P/Bld) [Vol rate/Area] mL/min/{1.73_m2} Normal >=59 [facility] Comment on above: Order Comment: Order added by Discern Expert. Result Comment: eGFR is race adjusted. AA=. Performed By: #### 1 [id number], [id number], [id number], [id number], [id number] ####[facility] [address] [place] [address] GFR/1.73 sq M.predicted among non-blacks MDRD (S/P/Bld) [Vol rate/Area] mL/min/{1.73_m2} Normal >=59 [facility] Comment on above: Order Comment: Order added by Discern Expert. Result Comment: Cable Engineer emil kidney disease could be indicated at eGFR's of less than 60 mL/min/1.73m2. Kidney failure is indicated at less than 15 mL/min/1.73m2. Performed By: #### 1 [id number], [id number], [id number], [id number], [id number] ####[facility] [address] [place] [address] CBC with Auto Differentialon 08-24-2022 Absolute Eos # 0.60 High [facility] Absolute Lymph # 2.30 [facility] Absolute Sandoval # 1.00 [facility] [...] g/dL 12.0 - 16.0 g/dL [facility] Interpretation and review of laboratory results Abnormal [facility] Lymphocytes/100 WBC (Bld) 16 % 15 - 40 % [facility] MCH (RBC) [Entitic mass] 29.3 pg 26 - 34 pg [facility] MCHC (RBC) [Mass/Vol] 33.1 g/dL 31 - 37 g/dL [facility] MCV (RBC) [Entitic vol] 88.6 fL 80 - 100 fL [facility] Monocytes/100 WBC (Bld) 7 % 4 - 8 % [facility] Platelet distribution width (Bld) [Ratio] 13.1 % 12.1 - 15.2 % [facility] Platelets (Bld) [#/Vol] 324 10*3/uL [facility] RBC (Bld) [#/Vol] 4.32 10*6/uL 4.0 - 5.2 m/uL [facility] Segmented neutrophils/100 WBC (Bld) 73 % 47 - 75 % [facility] Segs Absolute 10.20 High [facility] WBC (Bld) [#/Vol] 14.1 10*3/uL High [facility] Comprehensive Metabolic Pane darrin 08-24-2022 Albumin [Mass/Vol] 4.4 g/dL 3.5 - 5.2 g/dL [facility] ALP (Bld) [Catalytic activity/Vol] 75 U/L 35 - 104 U/L [facility] ALT [Catalytic activity/Vol] 14 U/L 5 - 33 U/L [facility] Anion gap [Moles/Vol] 12 mmol/L 9 - 17 mmol/L [facility] AST [Catalytic activity/Vol] 14 U/L NINF - 32 U/L [facility] Bilirubin [Mass/Vol] 0.3 mg/dL 0.3 - 1 .2 mg/dL [facility] Calcium [Mass/Vol] 9.0 mg/dL 8.6 - 10. 4 mg/dL [facility] Chloride [Moles/Vol] 102 mmol/L 98 - 10 7 mmol/L [facility] CO2 [Moles/Vol] 22 mmol/L 20 - 31 mmol/L [facility] Creatinine [Mass/Vol] 0.52 mg/dL 0.50 - 0.90 mg/dL [facility] GFR/1.73 sq M.predicted MDRD (S/P/Bld) [Vol rate/Area] - PINF [facility] Comment on above: Effective May 27, 2022 [...] 124 mg/dL High 70 - 99 mg/dL [facility] Interpretation and review of laboratory results Abnormal [facility] Potassium [Moles/Vol] 3.2 mmol/L Low 3.7 - 5.3 mmol/L [facility] Protein [Mass/Vol] 6.7 g/dL 6.4 - 8.3 g/dL [facility] Sodium [Moles/Vol] 136 mmol/L 135 - 144 mmol/L [facility] Urea nitrogen (BldV) [Mass/Vol] 10 mg/dL 6 - 20 mg/dL [facility] Urea nitrogen/Creatinine (Bld) [Mass ratio] 19 9 - 20 [facility] HCG Qualitative, Serumon hCG Qual Positive Abnormal NEGATIVE [facility] Comment on above: If HCG results do not concur with clinical observations, additional testing to confirm result is recommended. This test is not labeled for use as a tumor marker. [employer] has confirmed the use of plasma for this test. This has not been cleared or approved by the U.S. Food and Drug Administration. The FDA has determined that such clearance is not necessary. Interpretation and review of laboratory results Abnormal [facility] Urinalysison 08-24-2022 Bilirubin Urine Negative NEGATIVE [facility] Color, UA Yellow Yellow [facility] Glucose, Ur Negative NEGATIVE [facility] Interpretation and review of laboratory results Abnormal [facility] Ketones Ql (U) MODERATE Abnormal NEGATIVE [facility] Leukocyte esterase Test strip Ql (U) Negative NEGATIVE [facility] Nitrite, Urine Negative NEGATIVE [facility] pH, UA 6.0 5.0 - 8.0 [facility] Protein, UA TRACE Abnormal NEGATIVE [facility] Specific [place], UA 1.025 1.005 - 1.030 [facility] Turbidity UA Clear Clear [facility] Urinalysis Comments [facility] Urine Hgb Negative NEGATIVE [facility] Urobilinogen, Urine Normal Normal [facility] CBC with Auto Differentialon 08-10-2022 Absolute Eos # 0.30 [place] [facility] Absolute Lymph # 2.80 [facility] Absolute Sandoval # 0.80 [facility] Basophils (Bld) [#/Vol] 0.00 10*3/uL [facility] Basophils/100 WBC (Bld) 0 % 0 - 2 % [facility] Differential Type [facility] Eosinophils/100 WBC (Bld) 3 % 0 - 5 % [facility] Hematocrit (Bld) [Volume fraction] 37.7 % 36 - 46 % [facility] Hemoglobin (Bld) [Mass/Vol] 12.7 g/dL 12.0 - 16.0 g/dL [facility] Lymphocytes/100 WBC (Bld) 26 % 15 - 40 % [facility] MCH (RBC) [Entitic mass] 29.5 pg 26 - 34 pg [facility] MCHC (RBC) [Mass/Vol] 33.7 g/dL 31 - 37 g/dL [facility] MCV (RBC) [Entitic vol] 87.5 fL 80 - 100 fL [facility] Monocytes/100 WBC (Bld) 8 % 4 - 8 % [facility] Platelet distribution width (Bld) [Ratio] 13.1 % 12.1 - 15.2 % [facility] Platelets (Bld) [#/Vol] 269 10*3/uL [facility] RBC (Bld) [#/Vol] 4.31 10*6/uL 4.0 - 5.2 m/uL [facility] Segmented neutrophils/100 WBC (Bld) 63 % 47 - 75 % [facility] Segs Absolute 7.00 [facility] WBC (Bld) [#/Vol] 10.9 10*3/uL [facility] CMPon 08-10-2022 Albumin [Mass/Vol] 4.2 g/dL 3.5 - 5.2 g/dL [facility] ALP (Bld) [Catalytic activity/Vol] 75 U/L 35 - 104 U/L [facility] ALT [Catalytic activity/Vol] 18 U/L 5 - 33 U/L [facility] Anion gap [Moles/Vol] 7 mmol/L Low 9 - 17 mmol/L [facility] AST [Catalytic activity/Vol] 16 U/L NINF - 32 U/L [facility] Bilirubin [Mass/Vol] 0.2 mg/dL Low 0.3 - 1 .2 mg/dL [facility] Calcium [Mass/Vol] 9.1 mg/dL 8.6 - 10. 4 mg/dL [facility] Chloride [Moles/Vol] 108 mmol/L High 98 - 10 7 mmol/L [facility] CO2 [Moles/Vol] 25 mmol/L 20 - 31 mmol/L [facility] Creatinine [Mass/Vol] 0.58 mg/dL 0.50 - 0.90 mg/dL [facility] GFR/1.73 sq M.predicted MDRD (S/P/Bld) [Vol rate/Area] - PINF [facility] Comment on above: Effective May 27, 2022 [...] [Mass/Vol] 95 mg/dL 70 - 99 mg/dL [facility] Interpretation and review of laboratory results Abnormal [facility] Potassium [Moles/Vol] 4.2 mmol/L 3.7 - 5.3 mmol/L [facility] Protein [Mass/Vol] 6.8 g/dL 6.4 - 8.3 g/dL [facility] Sodium [Moles/Vol] 140 mmol/L 135 - 144 mmol/L [facility] Urea nitrogen (BldV) [Mass/Vol] 7 mg/dL 6 - 20 mg/dL [facility] Urea nitrogen/Creatinine (Bld) [Mass ratio] 12 9 - 20 [facility] Lipaseon 08-10-2022 Lipase [Catalytic activity/Vol] 26 U/L 13 - 60 U/L [facility] No Panel Informationon 08-10 [facility] Urinalysison 08-10-2022 Bilirubin Urine Negative NEGATIVE [facility] Color, UA Yellow Yellow [facility] Glucose, Ur Negative NEGATIVE [facility] Interpretation and review of laboratory results Abnormal [facility] Ketones Ql (U) Negative NEGATIVE [facility] Leukocyte esterase Test strip Ql (U) Negative NEGATIVE [facility] Nitrite, Urine Negative NEGATIVE [facility] pH, UA 7.0 5.0 - 8.0 [facility] Protein, UA TRACE Abnormal NEGATIVE [facility] Specific [place], UA 1.010 1.005 - 1.030 [facility] Turbidity UA Clear Clear [facility] Urinalysis Comments [facility] Urine Hgb Negative NEGATIVE [facility] Urobilinogen, Urine Normal Normal [facility] hCG, quantitative, on 08-10-2022 hCG Quant 587 High NINF [facility] Comment on above: Non-preg premeno <=5 Postmeno <=8 Male <=3 If HCG results do not concur with clinical observations, additional testing to confirm results is recommended. Interpretation and review of laboratory results Abnormal [facility] Coding Summary.on 07-15-2022 Coding Summary. [id number] Gh0bWw+PGhlYWQ+PE1FV WDfE66fiTSybK3FX3nRL Q5VVQIFUCPFMT0IYE8jg CT5MMvoD0TdzxTa LaslcLUvPF85LDs9QKK8 iKowMUwqhI2ryBOgY4z0 YtNwFX98mO65ZTaiHLJk YrU1UiMcimqucYHp R5obFqInuSQrBlw+PHRh YmxlIHdpZHRoPScxMDAl WjDwxSrrWX3pCj1dFKQs LWNvbGxhcHNlOiBj h1vjGTQcPRzkJW0pqIoh P7KisHV4VYAfi8h8Vp39 dHI+THWpPWA6yRlzIYnu d911UlEsh2ohNNR5 mXKfNPdsWSN1R42pb8Z5 EXTmHLQbMKX7bPE0qY6p mXaelbbkB4TxnQGbQgY4 TQU6rHRntF2muZjw vmggnA7xZre+P60HSP5Z PEPVJR9MZtr2B6DxFrti dHI+OP04SAIrAY74rGEw mEDgl0jlmLm4QcMl IAGoHOW6rQuwGNvee0Av SARfX18yaZIvz7O4KICz zQykcOGzSjOwsGP3yK5n WOkewiebb5fwduxt Fhvwa2kxhl43jP39M72u MIzeBSRvAQL3MATaQKQt iQibiz4slX9cBy4+IDxj f7vof5bhcCz4UzYk DNLpsvUakFnyEUX7g2Cs Se72V2HpkWowc5JuGwz2 mp29qNXek9R1oEH9CNpq UEAyeY1sFVoiUfQ7 HLHbZcQrhD61sJIeXBcp Oe1fpYafmGcsEX3xYSSw vnxaLSWovJ7xFZFqdGWn yNtrQI9wGWYrhjvq t479YwEzHLW8IREjuUYe R0CagG9dRmQyLKFuPEWg K2IayTKmOGzpG871NNlx QgH1GTIcxzTeZ4Bv LYHmsTbaMjP1i2K7Ey3Z m5MjdmboXJY4DVxyOWUu JkEhNgWuPtZ4W9KyIlx7 YABjwJxuNX2xV1Wk YTHxwhmnelnsrJX9VGSp FBRwhG10wUHqFHlnYx7r f6G9p837HMOrZSQoxA53 Ec4bgEulBKBfoSPZ iX6cpkhwx4yntxdpGnMz HNMyNZa4STb0PJHksSml PqKfPMI8PeE8HWS9gLGi vK5vbIwrcvnezV4x Oyc+F65jpP7uEHB3XPQ3 ikggGPAcitNvQV25SS16 P5SqUsadaFIbdRR+PGRp jeHamKbqUN6bKmWt u8swf2KsUDrbT0TdLOUr XRsqUpv8FMXiTYU5sCU4 qE3oPGAbVYich0V2xBR5 G3DktbRylv4ms3ff LCDeAYfdW18vaUSvx7X4 KTMquEP9LFRyoXoyWgSp dU24Gge+ZVMglIztp2Je Juvfh6gkk8ozeMn6 IjMwJSIgdmFsaWduPSJ0 e6UgTq00U64lAVwuXYPt AUXbIOPeCIBxqZhlmz0t uJ0eLi2+PGNvbCB3 bGB1sQ6aTYTaBiF5ZRxw Y083NtTfuLElKqwmk6to c4qujCn3HeLbCNXekoFx dCyeVPS4w1KxDq25 U15dGHpvOOSdNZUuPPPz HDJvdTzebq8qdJ0gCf8+ WM0vq3mkww16qS30xCV+ AYYcNPF0jCzgZNgo UERszO8gXAvhNyP5CFWw HrJiqS44aRQqSWmkWo4v pSovsTdcAE3aHGNawjen a754ZwWiu2sdOQAu sXIjWYytEVZ7S72ch7H5 PUUuRGKwWFS4aIE0sT8n bGlnbjogbGVmdDsgdmVy lNggGHqwCAoqQ290 IHRvcDsnPlBhdGllbnQg LvXkRTz5N2JzIpp2CVCn xIcfHF3auSZlPFwlBg2t eYfmtZyuYW0vYJYd ryjgz543WdLwe4tyZABf bIIgDFosIFH1C74av4M7 QPEtNCXuYLG2dSH0nE3p bGlnbjogbGVmdDsg utNjmWfyWBfsTVymA384 IHRvcDsnPkJpcnRoIERh rCR7SM18LF33sDKly8O4 mHB6X1NnGCGyfbyc jbswlAX6IFSoOCVvqR43 Wj5gkUcpSg7tQSGbHZZ0 FGActWLzY8JonU2kNjBr UOMyCDLsW5UdmJZl RGqyH044XUqmLfU5GBFw sfYbX2NzEQQsiBwmFwT7 f2U7Pa0EN4Q4LH64VO96 fLLpl9X7aWB4Q5Fh JUJrkwwlrwydrPI0GKMc RMIxfW46Ga3wpPlcMd3d LXDoEGF7UHYcxJUtE0Vn tJ4vNgNdSCThXHLq B4UwpPDlVWopZ659ZByy JzG0QRSdziZdV1PjRIDe oKokZhL4r6G4Nq9HUTr3 DE26XS57vPUux0W8 uGS5Y6CmGXKhbuwtohfg aRP3MRDyLODiqY74Bg1p zWzePl5oPSZhUIR7ZNQm kPAgW7JjsR8lNtYw BQPyPZIaK6SviVRmYQbl E432JWsrSqB2HJFshfYl Z7XkARDzyPdeHjK6o2N7 Tu1HEKXcUI06UHC7 cOT4OU36TA70O3IqFvcb dGFibGU+PHRhYmxlIHdp ZHRoPScxMDAlJyBzdHls QF0sUy9iOTPxYFOc sAwgzHKoMxSpy5hcLQTj CEzhKH3vlCdfG3LxkUR5 QZCar7y3Qn08G81eA4Mm dXA+OJMihEW8bDF2 vH8dFvZfFcR7CYinW586 UwOxvCSwFrmoh3zrd2yw eMw5PbQ8LWIwjsKkfZpi AWZ4c4InBr14J83s IHdpZHRoPSIxNSUiIHZh oZulis4lzN7xVh7+PGNv qHE1uVT0tG8eGgMzNkF5 TWdnC214NtEakLHr Mhmyo6rrn0bfkEx2CjIc EKDilrHamWhiHKI3x2Ay Wm19V5QdqLjeh8NeQpy3 sd76rGHbo1G7eKP3 Y9YgMEDgsibdxNSotTpy VJ0tFVUocchuKMPkgJ6i DXIlM0o9PaDkYmQ7XMgc Q0AxkqF9AXOczUJq ZQycEHA2C34ar2Z1ODDj BDQmPWJ6yUS4rP8esXcw bjogbGVmdDsgdmVydGlj COuuPFojG838TSKo jHalSWPofH7gMFJxbYAc wJdmSZ3dKPPcmvcgKd3I CRMNOCIBIYZFMZFDJP7I CD48R1SlZte3LSQf wQscSU7pkUOuNIyrQe6v eYbaoRkuUX7bWHVkivor KLAgvR1iNNCdmCKvwOfy KK4aLRMhnrqth978 ThWoOOE3NTIjiMCvQ0Ex tM0kXnAxQZVuPOIbP7Ys mYDmIOurI628PTslRsA3 VDAsscXuL3IpDAYc oIcrThK5h8D2Oz5xEU0v NN5wYEKcEH18GF58nOJn h1U0gMZ2I1WtLFLhjrly mffuyHA0OLZtBHEe pV99zZAcEAiaAd2on7E7 n321HUVfJSQbjO81Or8j xLlxMGMwiVKYfT1pbesx z3xxpztfZbYeHTKj BTx0VVh0BFWvdQsgXsMg RYO9QpN4ZAS4iSKttH4m vRtkpqzgsM4mXuh+MjEg MMSbrjS3H3TyBdn1 PHUxbPynSZ2hhQKkMCyj Pz3gyJygaErvEP5iDSEd dgutHAHvgY8iKUVzcPOy lQnrYF5lLICwzmcb k591DwTyDJO7PELryDJk G3FqhK2iSmXpWEQjYSAu S3WjgIFfHPejX123GSvr DiH6XMTqcyVbS4Jn BHXagFviInF1i0F6Hg7R KM3tgNP0X9ZoOad0YUSh xFcgMQ1lzNJlZLieBe7y cNpfxPedPZ9lOPKl eaewTERjzO3wXNDtqQCk mTjdHC9iDILrkotqn777 DuQrNZZ2ZWTgqJMyT4Xo uH0cJuXzXBIyJGJv X5YfiSFgJDweY409JVfl QyX5UTAehvMvY5CtPLQx bXbkHsE2v2K0Me7AuYSp K3QiW0m8K8QlDotp dHI+DB56CJYwPV88bGWb gYUbi1ukyMm3CvSgBVOa HSB3yNeqKTtec5XsECGv P89ewXOde8I9IIRv oLcavUGtThRuiIG6nP8d KZeeuygbm6uqzbmuVufr f3meqa07rW03O76nHPcb ZHRoPSIzMCUiIHZh gEbiov2feQ2qXp8+PGNv gRB3dAC0sR4gQoZtMyX6 FIfxX595IdSqsXEsBfnz q5kbu3dyaQp8HrUh DGRzokZxqMbiTGI3q9Ud Pn37X58sHNcmBZChQLFk XWJrRRHroIzzus8xpE1u Ii8+PB8nr4mvce70 iR37aXV+SMDlFXY8fMlx HQteVYMdfD4bQJviRnM4 CWYzLtEwgO12sQArRFyf Wk7czFtluQsdNO4i DUVskaneb025QoFpw5rl EPQakYRxMYfyFWX2B23d j0A5WKUsFNNpPEO4qJS0 wH1vaDvvnvhknFAj dDsgdmVydGljYWwtYWxp V078WLBulWvpPmYktKIs J4gtsgTPOY6kQojplWS+ QDEaEPR9uTwnHFwj UZPxvT1rGIMoS6z9EwUd MaT1YXmqK7GjhfS1RWRm vTIeIXDweOLYtD4fwscz z8eccznjIdZqYGXp ZRn0GQg9IGLlaJoqQxJo XYP1CeR0KLA2cERzrX5r vYwxzwmbvY3dRbw+RklO OjwvdGQ+PHRkIHN0 mVcqQIwaWAJmmU2uJVSt I1l9XlTgXwW4VVqnV7Ou ekQ5MAKwxQXyOYWneDUS qH2kamhnf8vrpxzd RxBkXAFlBYp9FKi7CCXh tGhfBzQjLIH1ReE0NCC4 lAPkrD0wxFvxjvcfsI9g Oyc+TVJOOjwvdGQ+ GSEkJOY3kOkwQYllVDOg oH5pVUOfL4f5JsFrGrY1 QVztO2CnytN8OYXvgTCx LDHndNAJnU4qtgda p5jxjuytStScBNTqYNw5 QLn8LVGewJonZvBoREY5 ZuM9PFQ7tZGzpQ6xjXpb esarvY2zEeq+UGF5 ZDV7NN95RK41V9GmNmzw dGFibGU+PHRhYmxlIHdp ZHRoPScxMDAlJyBzdHls DB1pGc0jRYExTIHh bGxh (more content not included)... Normal [facility] Auto Diffon 07-12-2022 Basophils/100 WBC (Bld) 0.6 % Normal 0.0-2.0 [facility] Comment on above: Order Comment: Order Added by Discern Expert. Performed By: #### 2 297921, 5559239, 2735580, 9261216, 08129904, 5542564, 5288284 #### [facility] [address] [place] [address] Basophils/Leukocytes Auto (Bld) [Pure # fraction] 0.1 E9/L Normal 0.0-0.2 [facility] Comment on above: Order Comment: Order Added by Discern Expert. Performed By: #### 2 968343, 0741820, 8548327, 1724382, 32202640, 4345954, 9447678 #### [facility] [address] [place] [address] Eosinophils/100 WBC (Bld) 5.6 % Normal 0.0-8.0 [facility] Comment on above: Order Comment: Order Added by Discern Expert. Performed By: #### 2 251590, 5998837, 8662766, 8769362, 24834849, 1115929, 2340057 #### [facility] [address] [place] [address] Eosinophils/Leukocyte s Auto (Bld) [Pure # fraction] 0.5 E9/L Normal 0.0-0.5 [facility] Comment on above: Order Comment: Order Added by Discern Expert. Performed By: #### 2 462126, 0564842, 2512715, 5172249, 60441707, 5981961, 0645793 #### [facility] [address] [place] [address] Lymphocytes/100 WBC (Bld) 34.7 % Normal 14.0-50.0 [facility] Comment on above: Order Comment: Order Added by Discern Expert. Performed By: #### 2 953759, 1621967, 0010025, 0671482, 50501398, 1216214, 0054023 #### [facility] [address] [place] [address] Lymphocytes/Leukocyte s Auto (Bld) [Pure # fraction] 3.1 E9/L Normal 1.0-4.0 [facility] Comment on above: Order Comment: Order Added by Ally Expert. Performed By: #### 2 513239, 5027245, 9191285, 0103834, 01497904, 5439125, 6879478 #### [facility] [address] [place] [address] Monocytes/100 WBC (Bld) 10.3 % Normal 4.0-14.0 [facility] Comment on above: Order Comment: Order Added by Discern Expert. Performed By: #### 2 294155, 3431535, 8427600, 1517696, 43326178, 7983325, 6405155 #### [facility] [address] [place] [address] Monocytes/Leukocytes Auto (Bld) [Pure # fraction] 0.9 E9/L Normal 0.2-1.0 [facility] Comment on above: Order Comment: Order Added by Discern Expert. Performed By: #### 2 591941, 7417847, 2416040, 9282425, 88905512, 4129137, 3475167 #### [facility] [address] [place] [address] Neutrophils/100 WBC (Bld) 48.8 % Normal 36.0-75.0 [facility] Comment on above: Order Comment: Order Added by Ally Expert. Performed By: #### 2 549983, 2133180, 0919620, 8422404, 12992703, 0910409, 6800070 #### [facility] [address] [place] [address] Neutrophils/Leukocyte s Auto (Bld) [Pure # fraction] 4.4 E9/L Normal 2.0-7.5 [facility] Comment on above: Order Comment: Order Added by Discern Expert. Performed By: #### 2 562627, 5934206, 8768894, 1507327, 39156122, 8573425, 1789574 #### [facility] [address] [place] [address] B hCG Qualon 07-12-2022 Beta hCG Ql Negative Normal [facility] Comment on above: Performed By: #### 2 756670, 4408541, 9029158, 6344949, 39272962, 6038814, 2613810 #### [facility] [address] [place] [address] BMPon 07-12-2022 Creatinine [Mass/Vol] 0.7 mg/dL Normal 0.5-1.3 [facility] Comment on above: Performed By: #### 2 625167, 3909743, 7461586, 9067796, 34019584, 3717876, 4844597 #### [facility] [address] [place] [address] Urea nitrogen [Mass/Vol] 9 mg/dL Normal 5-21 [facility] Comment on above: Performed By: #### 2 500188, 9066160, 3061016, 7866409, 69710231, 0365938, 7016833 #### [facility] [address] [place] [address] Urea nitrogen/Creatinine [Mass ratio] 13 No Units Normal 10-20 [facility] Comment on above: Performed By: #### 2 564061, 3285794, 2963695, 1317315, 53289163, 9403363, 8395323 #### [facility] [address] [place] [address] Anion gap [Moles/Vol] 7 mmol/L Normal 6-16 [facility] Comment on above: Performed By: #### 2 399574, 8130649, 1054069, 4989503, 88098532, 6721524, 9357987 #### [facility] [address] [place] [address] Calcium [Mass/Vol] 8.8 mg/dL Low 8.9-11.1 [facility] Comment on above: Performed By: #### 2 251759, 7289947, 0369851, 5036495, 28739337, 1314703, 2904372 #### [facility] [address] [place] [address] Chloride [Moles/Vol] 106 mmol/L Normal 101-111 [facility] Comment on above: Performed By: #### 2 024317, 4482690, 2322283, 9855932, 59827365, 9074811, 6303360 #### [facility] [address] [place] [address] CO2 [Moles/Vol] 31 mmol/L Normal 21-31 [facility] Comment on above: Performed By: #### 2 735855, 0664506, 5893141, 9156140, 01300481, 4705441, 9379677 #### [facility] [address] [place] [address] Glucose [Mass/Vol] 108 mg/dL Normal 55-199 [facility] Comment on above: Result Comment: If t his glucose result represents a fasting glucose, interpretation should refer to the following reference range: 55-99 mg/dL Performed By: #### 2 485791, 2349603, 9687956, 4551163, 52165304, 1950721, 5616134 #### [facility] [address] [place] [address] Potassium [Moles/Vol] 3.3 mmol/L Low 3.5-5.3 [facility] Comment on above: Performed By: #### 2 483088, 4059772, 2745247, 8559181, 51145404, 6231484, 1246379 #### [facility] [address] [place] [address] Sodium [Moles/Vol] 141 mmol/L Normal 135-145 [facility] Comment on above: Performed By: #### 2 092083, 1644469, 5994756, 0931763, 08967861, 1678282, 5515605 #### [facility] [address] [place] [address] CBC w/ Auto Diffon Erythrocyte distribution width (RBC) [Ratio] 13.6 % Normal 10.9-14.2 [facility] Comment on above: Performed By: #### 2 983970, 7528324, 5041839, 8271002, 89788118, 9945622, 2469569 #### [facility] [address] [place], [place] [address] Hematocrit (Bld) [Volume fraction] 35.6 % Normal 34.0-46.0 [facility] Comment on above: Performed By: #### 2 863577, 5147745, 3992995, 6837308, 87931497, 9234693, 1821567 #### [facility] [address] [place] [address] Hemoglobin (Bld) [Mass/Vol] 12.5 g/dL Normal 12.0-16.0 [facility] Comment on above: Performed By: #### 2 381078, 8091164, 3717389, 3683198, 00010948, 4972654, 8122619 #### [facility] [address] [place] [address] MCH (RBC) [Entitic mass] 28.7 pg Normal 27.0-34.0 [facility] Comment on above: Performed By: #### 2 758853, 1997444, 4053657, 1794055, 47310974, 5594788, 1722571 #### [facility] [address] [place] [address] MCHC (RBC) [Mass/Vol] 35.1 g/dL Normal 31.4-36.0 [facility] Comment on above: Performed By: #### 2 280536, 6758252, 1285611, 1183145, 60284240, 6502645, 4784860 #### [facility] [address] [place] [address] MCV (RBC) [Entitic vol] 81.8 fL Normal 80.0-100.0 [facility] Comment on above: Performed By: #### 2 857700, 0220168, 2491488, 4740591, 37040003, 8306314, 1539805 #### [facility] [address] [place] [address] Platelet mean volume (Bld) [Entitic vol] 7.6 fL Normal 6.4-10.8 [facility] Comment on above: Performed By: #### 2 644308, 7211979, 4756881, 8154366, 06140287, 9317810, 7897618 #### [facility] [address] [place] [address] Platelets (Bld) [#/Vol] 262.0 E9/L Normal 150.0-500.0 [facility] Comment on above: Performed By: #### 2 554648, 1114849, 7510601, 6611865, 48839379, 7546450, 8070862 #### [facility] [address] [place] [address] RBC (Bld) [#/Vol] 4.4 E12/L Normal 4.3-5.9 [facility] Comment on above: Performed By: #### 2 500092, 3916513, 1516710, 4806868, 70927332, 6130253, 0778372 #### [facility] [address] [place] [address] WBC corrected for nucl RBC Auto (Bld) [#/Vol] 8.9 E9/L Normal 4.0-11.0 [facility] Comment on above: Performed By: #### 2 852920, 8225911, 3237022, 6643004, 42243646, 3176741, 8813779 #### [facility] [address] [place] [address] [place] [address] CHEMISTRYOrdered By: SYSTEM SYSTEM on 07-12-2022 Albumin [...] Normal 135 - 145 mmol/L [facility] Remisol Troponin I.cardiac [Mass/Vol] pg/mL Low 10.10 - 27.10 pg/mL [facility]isol Urea nitrogen [Mass/Vol] 9 mg/dL Normal 5 - 21 mg/dL [facility] Urea nitrogen/Creatinine [Mass ratio] 13 mg/mg Normal 10 - 20 [facility] Consent for Treatmenton 06-25 Consent for Treatment [id number] #1.00CD:127 Normal [facility] Discharge Instructionson Discharge Instructions [id number]#1.00CD:127 Normal [facility] ED Clinical Summaryon 2021 ED Clinical Summary [place] [address] ED Clinical Summary Person Information Name: ROQUE PIERSON [facility] Age: 22 Years : 2000 Sex: Female Language: Togolese PCP: Delfin Urbano MD Marital Status: Single [...] 07/12/2022 05:07:15 07/12/2022 05:07:15 07/12/2022 05:07:15 ADDRESS: [address] [place] [id number] PHYS DOC NOTES: MEDICAL INFORMATION: Prescriptions Given: [...] PATIENT EDUCATION INFORMATION: Instructions: Abdominal Pain, Adult, Sxxx-vg-Drln Follow up: With: Address: When: Delfin Urbano [address] [place] [address], [address] [place] [id number] [facility] (1) In 3 days 07/15/2022 Comments: Take [...] worsening symptoms. DIAGNOSIS: Epigastric abdominal pain Normal [facility] ED Note-Physicianon 07-12-20 ED Note-Physician Basic Information Time Seen: Sissy Shah DO 07/12/2022 03:40 Chief Complaint Pt. 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 Normal [facility] Comment on above: Result Comment: Elec tronically Signed By: Sissy Shah DO.basil\Date and Time Signed: 07/12/22 04:48 EST ED [...] these instructions at home: Medicines ? Take pixb-qam-lnbigyu and prescription medicines only as told by [...] belly pain for any changes. ? Take spkv-epu-fccgrxn and prescription medicines only as told by [...] 01/27/2009 Document Revised: 12/20/2019 Document Reviewed: 12/20/2019 Elsevier Patient Education ? 2020 [employer] Normal [facility] ED Patient Summaryon 022 ED Patient Summary [address] [address] Patient Discharge Instructions Person Information Name: ROQUE PIERSON Age: 22 Years Arrival Date: 07/12/2022 03:36:47 Discharge Diagnosis: Epigastric abdominal pain Primary Care Physician: Delfin Urbano MD Provider Information Primary Provider: Sissy Shah DO Advanced Rn Recovery:None The exam and treatment you received in the Emergency Department were for an urgent problem and are not intended as complete care. It is important that you follow up with a doctor, nurse practitioner, or physician?s costumer assistant for ongoing care. If your symptoms [...] Follow-up Instructions: With: Address: When: Delfin Urbano [address] [place] [address], [place] [address] [facility] (1) In 3 days 07/15/2022 Comments: Take [...] provider. Patient Education Materials: Abdominal Pain, Adult, Rjvp-hz-Boto A MESSAGE TO ALL PATIENTS REGARDING OPIOIDS PRESCRIPTION OPIOIDS: WHAT YOU NEED TO KNOW Prescription opioids can be used to help relieve hpjjfkpj-dk-zdzoka pain and are often prescribed following a [...] toilet, fol (more content not included)... Normal [facility] HEMATOLOGYOrdered By: SYSTEM SYSTEM on 07-12-2022 Basophils/100 [...] 12.5 g/dL Normal 12.0 - 16.0 gm/dL [facility] HemeAutoSS MCH (RBC) [Entitic mass] 28.7 pg Normal 27.0 - 34.0 pg [facility] HemeAutoSS MCHC (RBC) [Mass/Vol] 35.1 g/dL Normal 31.4 - 36.0 gm/dL [facility]eAutoSS MCV (RBC) [Entitic vol] 81.8 fL Normal 80.0 - 100.0 fL [facility] HemeAutoSS Platelet mean volume (Bld) [Entitic vol] 7.6 fL Normal 6.4 - 10.8 fL [facility]eAutoSS Platelets (Bld) [#/Vol] 262.0 E9/L Normal 150.0 - 500.0 E9/L [facility]eAutoSS RBC (Bld) [#/Vol] 4.4 E12/L Normal 4.3 - 5.9 E12/L [facility] HemeAutoSS WBC corrected for nucl RBC Auto (Bld) [#/Vol] 8.9 E9/L Normal 4.0 - 11.0 E9/L [facility] HemeAutoSS Hep Func Panelon 07-12-2022 Bilirubin.indirect [Mass or moles/Vol] UTC Abnormal 0.1-0.9 [facility] Comment on above: Result Comment: Resu lt verified by Discern Rule. Performed result UTC (Unable to Calculate) was sent as an Alpha code due the inability to calculate a valid numeric value. Performed By: #### 2 383074, 3614805, 1345847, 2566165, 23599261, 0072878, 1002782 #### [facility] [address] [place] [address] Albumin [Mass/Vol] 4.0 g/dL Normal 3.3-5.0 [facility] Comment on above: Performed By: #### 2 343901, 0163793, 4134076, 6172985, 72990311, 6351732, 8175354 #### [facility] [address] [place] [address] Albumin/Globulin (S) [Mass conc ratio] 1.3 Normal 1.1-2.2 [facility] Comment on above: Performed By: #### 2 210409, 0344461, 7872118, 1470841, 64920515, 0039529, 6103698 #### [facility] [address] [place] [address] ALP [Catalytic activity/Vol] 59 Int._Unit/L Normal 21-98 [facility] Comment on above: Performed By: #### 2 899528, 2141292, 3972811, 2052295, 92552639, 9312585, 2873751 #### [facility] [address] [place] [address] ALT No additional P-5'-P [Catalytic activity/Vol] 17 Int._Unit/L Normal 6-46 [facility] Comment on above: Performed By: #### 2 793033, 2172178, 4624528, 6720936, 37567480, 0334025, 9270196 #### [facility] [address] [place] [address] AST [Catalytic activity/Vol] 17 Int._Unit/L Normal 5-43 [facility] Comment on above: Performed By: #### 2 404933, 1903452, 4565884, 9761535, 57880637, 3981783, 1006159 #### [facility] [address] [place] [address] Bilirubin [Mass/Vol] 0.3 mg/dL Normal 0.0-1.1 [facility] Comment on above: Performed By: #### 2 355906, 2981566, 5419003, 0816724, 20586764, 7142650, 3904520 #### [facility] [address] [place] [address] Bilirubin.direct [Mass/Vol] mg/dL Normal 0.1-0.4 [facility] Comment on above: Performed By: #### 2 801004, 2959030, 3728019, 3278914, 10886214, 4465811, 5782469 #### [facility] [address] [place] [address] Globulin (S) [Mass/Vol] 3.1 g/dL Normal 1.4-4.0 [facility] Comment on above: Performed By: #### 2 452623, 5184569, 7552530, 7139511, 96076607, 6149827, 8329487 #### [facility] [address] [place] [address] Protein [Mass/Vol] 7.1 g/dL Normal 6.0-7.8 [facility] Comment on above: Performed By: #### 2 094805, 2885089, 7096612, 5272643, 23510507, 7851978, 8786195 #### [facility] [address] [place] [address] Lipase Levelon 07-12-2022 Lipase [Catalytic activity/Vol] 35 U/L Normal 13-58 [facility] Comment on above: Performed By: #### 2 982013, 9575865, 3984243, 3216378, 46299628, 5970413, 5806020 #### [facility] [address] [place] [address] SEROLOGYOrdered By: Mignon Gupta on 07-12-2022 Beta hCG Ql Negative (07/12/22 4:02 AM) Normal [facility] Man Sero Troponin 0 Hr.on 07-12-2022 Troponin I.cardiac [Mass/Vol] ng/mL Low 10.10-27.10 [facility] Comment on above: Result Comment: The 95% CI (Confidence Interval) PPV (Positive Predictive Value) for myocardial infarction in females is 38 pg/mL, in males 51 pg/mL. The results should be used in conjunction with clinical conditions of myocardial infarction. (Access High Sensitivity Troponin I Instructions For Use, [employer], March 2018) Performed By: #### 2 991972, 1851288, 8414075, 4146453, 06492569, 2128786, 1032264 #### [facility] [address] [place] [address] XR Chest Single Viewon 07-12 XR Chest [...] M.D. Transcribed by: KG Technologist: [place] Andrea [facility] eGFRon 07-12-2022 GFR/1.73 sq M.predicted among blacks MDRD (S/P/Bld) [Vol rate/Area] mL/min/{1.73_m2} Normal >=59 [facility] Comment on above: Order Comment: Order added by Discern Expert. Result Comment: eGFR is race adjusted. AA=. Performed By: #### 2 493692, 4691066, 1992446, 4048792, 34049946, 8834908, 6669586 #### [facility] [address] [place] [address] GFR/1.73 sq M.predicted among non-blacks MDRD (S/P/Bld) [Vol rate/Area] mL/min/{1.73_m2} Normal >=59 [facility] Comment on above: Order Comment: Order added by Discern Expert. Result Comment: Cable Engineer emil kidney disease could be indicated at eGFR's of less than 60 mL/min/1.73m2. Kidney failure is indicated at less than 15 mL/min/1.73m2. Performed By: #### 2 764346, 3467934, 3147950, 0612778, 78766766, 4142531, 0448937 #### [facility] [address] [place] [address] CBC with Auto Differentialon 04-18-2022 Absolute Eos # 0.20 [facility] Absolute Lymph # 1.60 [facility] Absolute Sandoval # 0.60 [facility] Basophils (Bld) [#/Vol] 0.00 10*3/uL [facility] Basophils/100 WBC (Bld) 0 % 0 - 2 % [facility] Differential Type YES [facility] Eosinophils/100 WBC (Bld) 2 % 0 - 5 % [facility] Hematocrit (Bld) [Volume fraction] 38.2 % 36 - 46 % [facility] Hemoglobin (Bld) [Mass/Vol] 12.7 g/dL 12 - 16 g/dL [facility] Interpretation and review of laboratory results Abnormal [facility] Lymphocytes/100 WBC (Bld) 16 % 15 - 40 % [facility] MCH (RBC) [Entitic mass] 28.1 pg 26 - 34 pg [facility] MCHC (RBC) [Mass/Vol] 33.2 g/dL 31 - 37 g/dL [facility] MCV (RBC) [Entitic vol] 84.6 fL 80 - 100 fL [facility] Monocytes/100 WBC (Bld) 6 % 4 - 8 % [facility] Platelet distribution width (Bld) [Ratio] 13.3 % 12.1 - 15.2 % [facility] Platelets (Bld) [#/Vol] 294 10*3/uL [facility] RBC (Bld) [#/Vol] 4.52 10*6/uL 4 - 5.2 m/uL [facility] Segmented neutrophils/100 WBC (Bld) 76 % High 47 - 75 % [facility] Segs Absolute 7.60 High [facility] WBC (Bld) [#/Vol] 10.0 10*3/uL [facility] CMPon 04-18-2022 Albumin [Mass/Vol] 4.4 g/dL 3.5 - 5.2 g/dL [facility] ALP (Bld) [Catalytic activity/Vol] 93 U/L 35 - 104 U/L [facility] ALT [Catalytic activity/Vol] 17 U/L 5 - 33 U/L [facility] Anion gap [Moles/Vol] 8 mmol/L Low 9 - 17 mmol/L [facility] AST [Catalytic activity/Vol] 17 U/L NINF - 32 U/L [facility] Bilirubin [Mass/Vol] 0.20 mg/dL Low 0.3 - 1 .2 mg/dL [facility] Calcium [Mass/Vol] 9.5 mg/dL 8.6 - 10. 4 mg/dL [facility] Chloride [Moles/Vol] 106 mmol/L 98 - 10 7 mmol/L [facility] CO2 [Moles/Vol] 26 mmol/L 20 - 31 mmol/L [facility] Creatinine [Mass/Vol] 0.66 mg/dL 0.5 - 0.9 mg/dL [facility] Free PSA/Total PSA [Mass fraction] 6.9 g/dL 6.4 - 8.3 g/dL [facility] GFR >60 60 - PI NF mL/min [facility] GFR Non- >60 60 - PINF mL/min [facility] GFR/1.73 sq M.predicted MDRD (S/P/Bld) [Vol rate/Area] [facility] Comment on above: Average GFR for 20-2 9 years old: 116 mL/min/1.73sq m Chronic Kidney Disease: <60 mL/min/1.73sq m Kidney failure: <15 mL/min/1.73sq m eGFR calculated using average adult body mass. Additional eGFR calculator available at: http://www.[employer].com.[employer]/multiple_crcl_2012.htm Glucose [Mass/Vol] 108 mg/dL High 70 - 99 mg/dL [facility] Interpretation and review of laboratory results Abnormal [facility] Potassium [Moles/Vol] 3.6 mmol/L Low 3.7 - 5.3 mmol/L [facility] Sodium [Moles/Vol] 140 mmol/L 135 - 144 mmol/L [facility] Urea nitrogen (BldV) [Mass/Vol] 5 mg/dL Low 6 - 20 mg/dL [facility] Urea nitrogen/Creatinine (Bld) [Mass ratio] 8 Low 9 - 20 [facility] HCG Qualitative, Serumon hCG Qual Negative NEGATIVE [facility] Comment on above: Specimens with hCG l evels near the threshold of the test (25 mIU/mL) may give a negative or indeterminate result. In such cases, another test should be performed with a new specimen in 48-72 hours. If early is suspected clinically in this setting, correlation with quantitative serum b-hCG level is suggested. [employer] has confirmed the use of plasma for this test. This has not been cleared or approved by the U.S. Food and Drug Administration. The FDA has determined that such clearance is not necessary. [facility] Microscopic Urinalysison - [facility] Epithelial Cells UA 0 TO 2 /HPF [facility] RBC, UA 2 TO 5 [facility] WBC, UA NONE SEEN 0 /HPF [facility] Urinalysison 04-18-2022 Bilirubin Urine Negative NEGATIVE [facility] Color, UA Yellow Yellow [facility] Glucose, Ur Negative NEGATIVE [facility] Interpretation and review of laboratory results Abnormal [facility] Ketones Ql (U) Negative NEGATIVE [facility] Leukocyte esterase Test strip Ql (U) Negative NEGATIVE [facility] Nitrite, Urine Negative NEGATIVE [facility] pH, UA 8.0 5 - 8 [facility] Protein, UA Negative NEGATIVE [facility] Specific [place], UA 1.015 1.005 - 1.03 [facility] Turbidity UA Clear Clear [facility] Urinalysis Comments [facility] Urine Hgb 2+ Abnormal NEGATIVE [facility] Urobilinogen, Urine Normal Normal [facility] PAP ACOG PANEL 2: 21 to 29on 04-13-2022 . . Normal [facility] Comment on above: Performed By: #### [id number] #### [facility] [address] [place] [address] Dr. Tasha Whalen Age Gdln ACOG Testing Comment Normal [facility] Comment on above: Result Comment: <21 or >65 or no age provided Performed By: #### [id number] #### [facility] [address] [place] [address] Dr. Tasha Whalen DIAGNOSIS: Comment Normal [facility] Comment on above: Result Comment: NEGA TIVE FOR INTRAEPITHELIAL LESION OR MALIGNANCY. Performed By: #### [id number] #### [facility] [address] [place] [address] Dr. Tasha Whalen Methodology: Comment Normal [facility] Comment on above: Result Comment: This liquid based ThinPrep(R) pap test was screened with the use of an image guided system. Performed By: #### [id number] #### [facility] [address] [place] [address] Dr. Tasha Whalen Note: Comment Normal [facility] Comment on above: Result Comment: The Pap smear is a screening test designed to aid in the detection of premalignant and malignant conditions of the uterine cervix. It is not a diagnostic procedure and should not be used as the sole means of detecting cervical cancer. Both false-positive and false-negative reports do occur. . Performed By: #### [id number] #### [facility] [address] [place] [address] Dr. Tasha Whalen Performed by: Comment Normal [facility] Comment on above: Result Comment: Nancy Wooten Rn Wound (ASCP) Performed By: #### [id number] #### [facility] [address] [place] [address] Dr. Tasha Whalen Specimen adequacy: Comment Normal [facility] Comment on above: Result Comment: Sati sfactory for evaluation. Endocervical and/or squamous metaplastic cells (endocervical component) are present. Performed By: #### [id number] #### [facility] [address] [place] [address] Dr. Tasha Whalen CHLAMYDIA/GONOCOCCUS CATRINA (SW AB/URINE/PAPon 04-12-2022 Chlamydia trachomatis, CATRINA Negative Normal Negative [facility] Comment on above: Performed By: #### C T/NGNA #### [facility] [address] [address] [address] Tasha Whalen Neisseria gonorrhoeae, CATRINA Negative Normal Negative [facility] Comment on above: Performed By: #### C T/NGNA #### [facility] [address] [place] [address] Dr. Tasha Whalen VAGINITIS/VAGINOSIS DNA PROB [place] 04-11-2022 Dylan species Negative Normal Negative [facility] Comment on above: Performed By: #### V AGINT #### [facility] [address] [place] [address] Dr. Tasha Whalen Gardnerella vaginalis Negative Normal Negative [facility] Comment on above: Performed By: #### V AGINT #### [facility] [address] [place] [address] Dr. Tasha Whalen Trichomonas vaginalis Negative Normal Negative [facility] Comment on above: Performed By: #### V AGINT #### [facility] [address] [place] [address] Dr. Tasha Whalen PREG QUANT HCGon 02-15-2022 HCG QUANT <1 Normal [facility] Comment on above: Performed By: #### P REGQNT #### [facility] [address] [place] [address] Dr. Tasha Whalen HCG RANGE SEE BELOW Normal [facility] Comment on above: Result Comment: 5-50 0-1 WEEK 40-300 1-2 WEEKS 100-1,000 2-3 WEEKS 500-6,000 3-4 WEEKS 5,000-200,000 1-2 MONTHS 10,000-100,000 2-3 MONTHS 3,000-50,000 2ND TRIMESTER 1,000-50,000 3RD TRIMESTER Performed By: #### P REGQNT #### [facility] [address] [place] [address] Dr. Tasha Whalen Vital Signs Date Time Vital Sign Value Performing Clinician Facility 05-27-2024 10:09 Body mass index (BMI) [Ratio] 26 kg/m2 Jo DENNIS Work Phone: [facility] 05-27-2024 [id number] Body weight 75.3 kg Jo DENNIS Work Phone: [facility] 05-27-2024 10:09-0400 Diastolic blood pressure 64 mm[Hg] Jo DENNIS Work Phone: [facility] 05-27-2024 10:09-0400 Systolic blood pressure 110 mm[Hg] Jo DENNIS Work Phone: [facility] 04-23-2024 12:00-0400 Diastolic blood pressure 58 mm[Hg] [facility] 04-23-2024 12:00-0400 Heart rate 62 /min [facility] 04-23-2024 12:00-0400 Mean blood pressure 72 mm[Hg] [facility] 04-23-2024 12:00-0400 SaO2% (BldA) [Mass fraction] 99 % [facility] 04-23-2024 12:00-0400 Systolic blood pressure 100 mm[Hg] [facility] 04-23-2024 11:30-0400 Diastolic blood pressure 54 mm[Hg] [facility] 04-23-2024 11:30-0400 Heart rate 60 /min [facility] 04-23-2024 11:30-0400 Mean blood pressure 68 mm[Hg] [facility] 04-23-2024 11:30-0400 Respiratory rate 18 /min [facility] 04-23-2024 11:30-0400 SaO2% (BldA) [Mass fraction] 98 % [facility] 04-23-2024 11:30-0400 Systolic blood pressure 96 mm[Hg] [facility] 04-23-2024 11:00-0400 Diastolic blood pressure 56 mm[Hg] [facility] 04-23-2024 11:00-0400 Heart rate 56 /min [facility] 04-23-2024 11:00-0400 Mean blood pressure 70 mm[Hg] [facility] 04-23-2024 11:00-0400 Systolic blood pressure 97 mm[Hg] [facility] 04-23-2024 09:42-0400 Body temperature 98.24 [degF] [facility] 04-23-2024 09:42-0400 Heart rate 65 /min [facility] 09-08-2023 11:05-0500 Body temperature 98.78 [degF] Fercho Addison [facility] 09-08-2023 11:05-0500 Diastolic blood pressure 82 mm[Hg] Fercho Addison [facility] 09-08-2023 11:05-0500 Heart rate 95 /min Fercho Addison [facility] 09-08-2023 11:05-0500 Respiratory rate 16 /min Fercho Addison [facility] 09-08-2023 11:05-0500 SaO2% (BldA) [Mass fraction] 98 % Fercho Addison [facility] 09-08-2023 11:05-0500 Systolic blood pressure 131 mm[Hg] Fercho Addison [facility] 06-05-2023 18:36-0400 Diastolic blood pressure 58 mm[Hg] Fercho Addison [facility] 06-05-2023 18:36-0400 Heart rate 90 /min Fercho Addison [facility] 06-05-2023 18:36-0400 Mean blood pressure 73 mm[Hg] Fercho Addison [facility] 06-05-2023 18:36-0400 Respiratory rate 16 /min Fercho Addison [facility] 06-05-2023 18:36-0400 SaO2% (BldA) [Mass fraction] 99 % Fercho Addison [facility] 06-05-2023 18:36-0400 Systolic blood pressure 104 mm[Hg] Fercho Addison [facility] 06-05-2023 18:23-0400 Diastolic blood pressure 52 mm[Hg] Fercho Addison [facility] 06-05-2023 18:23-0400 Heart rate 82 /min Fercho Addison [facility] 06-05-2023 18:23-0400 Mean blood pressure 66 mm[Hg] Fercho Addison [facility] 06-05-2023 18:23-0400 Respiratory rate 14 /min Fercho Addison [facility] 06-05-2023 18:23-0400 SaO2% (BldA) [Mass fraction] 98 % Fercho Addison [facility] 06-05-2023 18:23-0400 Systolic blood pressure 94 mm[Hg] Fercho Addison [facility] 06-05-2023 17:31-0400 Diastolic blood pressure 60 mm[Hg] Fercho Addison [facility] 06-05-2023 17:31-0400 Heart rate 89 /min Fercho Addison [facility] 06-05-2023 17:31-0400 Mean blood pressure 71 mm[Hg] Fercho Addison [facility] 06-05-2023 17:31-0400 Respiratory rate 16 /min Fercho Addison [facility] 06-05-2023 17:31-0400 SaO2% (BldA) [Mass fraction] 98 % Fercho Jaime [facility] 06-05-2023 17:31-0400 Systolic blood pressure 93 mm[Hg] Fercho Jaime [facility] 06-05-2023 15:48-0400 Body temperature 98.42 [degF] Fercho Jaime [facility] 06-05-2023 15:48-0400 Heart rate 97 /min Fercho Jaime [facility] 12-07-2022 03:06-0400 Body weight 72.1224 kg JO ANDERSON . [facility] Comment on above: Performed By: #### AFPMAT #### [facility] [address] [place] [address] Dr. Tasha Whalen 11-25-2022 22:27-0400 [employer] Shawn Wilson [facility] Comment on above: Result Comment: pt. discharged off unit, ambulatory; RN offers to assist to ER entrance; pt. denies 11-25-2022 22:20-0400 Hourly Rounding Shawn Wilson [employer] [facility] Comment on above: Result Comment: discharge papers given, education provided about belly band, follow up with primary provider in 2-3 days, and taking Tylenol for pain management as needed; questions answered; papers signed; pt. to get up and get dressed, no grimace or physical symptoms of pain noted in patient while moving 11-25-2022 22:10-0400 Hour[employer] Round[employer] Shawn Wilson [facility] Comment on above: Result Comment: RN checks in on patient following medication administration; pt. verbalizes that medication helped and belly band is helping; RN answers question about UA results with patient; no physical signs of pain noted in pt. at this time, no grimace; RN to d/c pt. per physician order 11-25-2022 22:10-0400 Promise to Return Shawn Wilson [facility] 11-25-2022 21:24-0400 Promise to Return Shawn Wilson [facility] 11-25-2022 20:47-0400 Blood Pressure Location Shawn Littleten [facility] 11-25-2022 20:47-0400 Body temperature 98.24 [degF] Shawn Littleten [facility] 11-25-2022 20:47-0400 Diastolic blood pressure 56 mm[Hg] Shawn Littleten [facility] 11-25-2022 20:47-0400 Heart rate 74 /min Shawn Littleten [facility] 11-25-2022 20:47-0400 Mean blood pressure 73 mm[Hg] Shawn Littleten [facility] 11-25-2022 20:47-0400 Promise to Return Shawn Wilson [facility] 11-25-2022 20:47-0400 Respiratory rate 16 /min Shawn Wilson [facility] 11-25-2022 20:47-0400 Systolic blood pressure 108 mm[Hg] Shawn Littleten [facility] 11-25-2022 18:45-0400 Blood Pressure Location Shawn Wilson [facility] 11-25-2022 18:45-0400 Body temperature 97.52 [degF] Shwan Littleten [facility] 11-25-2022 18:45-0400 Diastolic blood pressure 59 mm[Hg] Shawn Littleten [facility] 11-25-2022 18:45-0400 Heart rate 79 /min Shawn Steve [facility] 11-25-2022 18:45-0400 Mean blood pressure 76 mm[Hg] Shawn Wilson [facility] 11-25-2022 18:45-0400 Respiratory rate 18 /min Shawn Wilson [facility] 11-25-2022 18:45-0400 Systolic blood pressure 110 mm[Hg] Sahwn Wilson [facility] 09-30-2022 08:59-0500 Body height 175.3 cm Morgan Falk Work Phone: [facility] [employer] 09-30-2022 08:59-0500 Body mass index (BMI) [Ratio] 23.63 kg/m2 Morgan Falk DO Work Phone: [facility] [employer] 09-30-2022 08:59-0500 Body temperature 98.1 [degF] Morgan Falk DO Work Phone: [facility] [employer] 09-30-2022 08:59-0500 Body weight 72.58 kg Morgan Falk DO Work Phone: [facility] [employer] 09-30-2022 08:59-0500 Diastolic blood pressure 64 mm[Hg] Morgan Falk DO Work Phone: [employer] 09-30-2022 08:59-0500 Heart rate 78 /min Morgan Falk DO Work Phone: [facility] [employer] 09-30-2022 08:59-0500 Respiratory rate 20 /min Morgan Falk DO Work Phone: [employer] 09-30-2022 08:59-0500 SaO2% (BldA) [Mass fraction] 98 % Morgan Falk DO Work Phone: [facility] [employer] 09-30-2022 08:59-0500 Systolic blood pressure 112 mm[Hg] Morgan Falk DO Work Phone: [employer] 09-26-2022 13:23-0500 Body height 172.7 cm Nguyen Edmonds MD Work Phone: [employer] 09-26-2022 13:23-0500 Body mass index (BMI) [Ratio] 24.4 kg/m2 Nguyen Edmonds MD Work Phone: [employer] 09-26-2022 13:23-0500 Body temperature 98.01 [degF] Nguyen Edmonds MD Work Phone: [employer] 09-26-2022 13:23-0500 Body weight 72.8 kg Nguyen Edmonds MD Work Phone: [employer] 09-26-2022 13:23-0500 Diastolic blood pressure 69 mm[Hg] Nguyen Edmonds MD Work Phone: [employer] 09-26-2022 13:23-0500 Heart rate 82 /min Nguyen Edmonds MD Work Phone: [employer] 09-26-2022 13:23-0500 Respiratory rate 18 /min Nguyen Edmonds MD Work Phone: [employer] 09-26-2022 13:23-0500 SaO2% (BldA) [Mass fraction] 100 % Nguyen Edmonds MD Work Phone: [employer] 09-26-2022 13:23-0500 Systolic blood pressure 111 mm[Hg] Nguyen Edmonds MD Work Phone: [employer] 09-04-2022 20:05-0500 Body height 172.7 cm Lebron Guevara MD Work Phone: [employer] 09-04-2022 20:05-0500 Body mass index (BMI) [Ratio] 24.89 kg/m2 Lebron Guevara MD Work Phone: [employer] 09-04-2022 20:05-0500 Body temperature 99.9 [degF] Lebron Guevara MD Work Phone: [employer] 09-04-2022 20:05-0500 Body weight 74.25 kg Lebron Guevara MD Work Phone: [facility] 09-04-2022 20:05-0500 Diastolic blood pressure 72 mm[Hg] Lebron Guevara MD Work Phone: [facility] 09-04-2022 20:05-0500 Heart rate 74 /min Lebron Guevara MD Work Phone: [facility] 09-04-2022 20:05-0500 Respiratory rate 18 /min Lebron Guevara MD Work Phone: [facility] 09-04-2022 20:05-0500 SaO2% (BldA) [Mass fraction] 98 % Lebron Guevara MD Work Phone: [facility] 09-04-2022 20:05-0500 Systolic blood pressure 111 mm[Hg] Lebron Guevara MD Work Phone: [facility] 08-29-2022 01:32-0500 Hourly Rounding [facility] 08-29-2022 01:32-0500 Promise to Return [facility] 08-29-2022 00:48-0500 Hourly Rounding [facility] 08-29-2022 00:48-0500 Promise to Return [facility] 08-29-2022 00:17-0500 Diastolic blood pressure 51 mm[Hg] [facility] 08-29-2022 00:17-0500 Heart rate 72 /min [facility] 08-29-2022 00:17-0500 Mean blood pressure 69 mm[Hg] [facility] 08-29-2022 00:17-0500 Respiratory rate 16 /min [facility] 08-29-2022 00:17-0500 SaO2% (BldA) [Mass fraction] 99 % [facility] 08-29-2022 00:17-0500 Systolic blood pressure 105 mm[Hg] [facility] 08-28-2022 23:35-0500 Diastolic blood pressure 53 mm[Hg] [facility] 08-28-2022 23:35-0500 Heart rate 65 /min [facility] 08-28-2022 23:35-0500 Mean blood pressure 68 mm[Hg] [facility] 08-28-2022 23:35-0500 Respiratory rate 18 /min [facility] 08-28-2022 23:35-0500 SaO2% (BldA) [Mass fraction] 100 % [facility] 08-28-2022 23:35-0500 Systolic blood pressure 97 mm[Hg] [facility] 08-28-2022 23:30-0500 Hourly Rounding [facility] 08-28-2022 23:30-0500 Promise to Return [facility] 08-28-2022 22:45-0500 Diastolic blood pressure 55 mm[Hg] [facility] 08-28-2022 22:45-0500 Heart rate 62 /min [facility] 08-28-2022 22:45-0500 Mean blood pressure 69 mm[Hg] [facility] 08-28-2022 22:45-0500 Respiratory rate 20 /min [facility] 08-28-2022 22:45-0500 SaO2% (BldA) [Mass fraction] 93 % [facility] 08-28-2022 22:45-0500 Systolic blood pressure 98 mm[Hg] [facility] 08-28-2022 21:31-0500 Body temperature 97.88 [degF] [facility] 01-04-2023 21:31-0500 Heart rate 78 /min Alfredito Brennan [facility] 08-26-2022 11:02-0500 Body temperature 98.6 [degF] Kei Moore [facility] 08-26-2022 11:02-0500 Diastolic blood pressure 70 mm[Hg] Kei Moore [facility] 08-26-2022 11:02-0500 Heart rate 66 /min Kei Moore [facility] 08-26-2022 11:02-0500 Respiratory rate 16 /min Kei Moore [facility] 08-26-2022 11:02-0500 SaO2% (BldA) [Mass fraction] 96 % Kei Moore [facility] 08-26-2022 11:02-0500 Systolic blood pressure 115 mm[Hg] Kei Moore [facility] 08-24-2022 01:01-0500 Body height 172.7 cm Andrea Mitchell MD Work Phone: [facility] 08-24-2022 01:01-0500 Body mass index (BMI) [Ratio] 25.51 kg/m2 Andrea Mitchell MD Work Phone: [facility] 08-24-2022 01:01-0500 Body temperature 98.1 [degF] Andrea Mitchell MD Work Phone: [facility] 08-24-2022 01:01-0500 Body weight 76.11 kg Andrea Mitchell MD Work Phone: [facility] 08-24-2022 01:01-0500 Diastolic blood pressure 74 mm[Hg] Andrea Mitchell MD Work Phone: [facility] 08-24-2022 01:01-0500 Heart rate 82 /min [facility] 08-24-2022 01:01-0500 Respiratory rate 18 /min Andrea Mitchell MD [facility] 08-24-2022 01:01-0500 SaO2% (BldA) [Mass fraction] 99 % Andrea Mitchell MD [facility] 08-24-2022 01:01-0500 Systolic blood pressure 119 mm[Hg] Andrea Mitchell MD [facility] 08-10-2022 00:13-0500 Body mass index (BMI) [Ratio] 25.7 kg/m2 Lebron Guevara MD [facility] 08-10-2022 00:13-0500 Body temperature 97.59 [degF] Lebron Guevara MD [facility] 08-10-2022 00:13-0500 Body weight 76.66 kg Lebron Guevara MD [facility] 08-10-2022 00:13-0500 Diastolic blood pressure 70 mm[Hg] Lebron Guevara MD [facility] 08-10-2022 00:13-0500 Heart rate 97 /min Lebron Guevara MD [facility] 08-10-2022 00:13-0500 Respiratory rate 16 /min Lebron Guevara MD [facility] 08-10-2022 00:13-0500 SaO2% (BldA) [Mass fraction] 98 % Lebron Guevara MD Work Phone: [facility] [employer] 08-10-2022 00:13-0500 Systolic blood pressure 123 mm[Hg] Lebron Guevara MD Work Phone: [facility] [employer] 08-06-2022 01:39-0500 Body height 172.7 cm Morgan Falk DO Work Phone: [facility] 08-06-2022 01:39-0500 Body mass index (BMI) [Ratio] 25.39 kg/m2 Morgan Falk DO Work Phone: [facility] 08-06-2022 01:39-0500 Body temperature 97.81 [degF] Morgan Falk Work Phone: [facility] 08-06-2022 01:39-0500 Body weight 75.75 kg Morgan Falk DO Work Phone: [facility] [employer] 08-06-2022 01:39-0500 Diastolic blood pressure 63 mm[Hg] Morgan Falk Work Phone: [facility] 08-06-2022 01:39-0500 Heart rate 95 /min Morgan Falk Work Phone: [facility] 08-06-2022 01:39-0500 Respiratory rate 18 /min Morgan Falk Work Phone: [facility] 08-06-2022 01:39-0500 SaO2% (BldA) [Mass fraction] 98 % Morgan Flak Work Phone: [facility] 08-06-2022 01:39-0500 Systolic blood pressure 116 mm[Hg] Morgan Falk Work Phone: [facility] 07-12-2022 05:06-0500 Heart rate 86 /min Kaylinn Dokken [facility] 07-12-2022 05:06-0500 Respiratory rate 11 /min Kaylinn Dokken [facility] 07-12-2022 05:06-0500 SaO2% (BldA) [Mass fraction] 97 % Kaylinn Dokken [facility] 07-12-2022 03:38-0500 Body temperature 97.52 [degF] Sissy Shah [facility] 07-12-2022 03:38-0500 Diastolic blood pressure 64 mm[Hg] Sissy Shah [facility] 07-12-2022 03:38-0500 Heart rate 94 /min Sissy Shah [facility] 07-12-2022 03:38-0500 Respiratory rate 20 /min Sissy Shah [facility] 07-12-2022 03:38-0500 SaO2% (BldA) [Mass fraction] 98 % Sissy Shah [facility] 07-12-2022 03:38-0500 Systolic blood pressure 125 mm[Hg] Sissy Shah [facility] 07-01-2022 14:43-0500 Diastolic blood pressure 67 mm[Hg] Alejandra Winkler MD Work Phone: [employer] 07-01-2022 14:43-0500 Systolic blood pressure 103 mm[Hg] Alejandra Winkler MD Work Phone: [employer] 07-01-2022 14:19-0500 Body height 172.7 cm Alejandra Winkler MD Work Phone: [employer] 07-01-2022 14:19-0500 Body mass index (BMI) [Ratio] 24.63 kg/m2 Alejandra Winkler MD Work Phone: [employer] 07-01-2022 14:19-0500 Body temperature 97.3 [degF] Alejandra Winkler MD Work Phone: [employer] 07-01-2022 14:19-0500 Body weight 73.48 kg Alejandra Winkler MD Work Phone: [employer] 07-01-2022 14:19-0500 Heart rate 82 /min Alejandra Winkler MD Work Phone: [employer] 07-01-2022 14:19-0500 Respiratory rate 16 /min Alejandra Winkler MD Work Phone: [employer] 07-01-2022 14:19-0500 SaO2% (BldA) [Mass fraction] 99 % Alejandra Winkler MD Work Phone: [employer] 04-18-2022 15:20-0400 Body mass index (BMI) [Ratio] 27.06 kg/m2 Lebron Guevara MD Work Phone: [employer] 04-18-2022 15:20-0400 Body temperature 98.2 [degF] Lebron Guevara MD Work Phone: [employer] 04-18-2022 15:20-0400 Body weight 78.38 kg Lebron Guevara MD Work Phone: [employer] 04-18-2022 15:20-0400 Diastolic blood pressure 75 mm[Hg] Lebron Guevara MD Work Phone: [employer] 04-18-2022 15:20-0400 Heart rate 76 /min Lebron Guevara MD Work Phone: [employer] 04-18-2022 15:20-0400 Respiratory rate 16 /min Lebron Guevara MD Work Phone: [employer] 04-18-2022 15:20-0400 SaO2% (BldA) [Mass fraction] 98 % Lebron Guevara MD Work Phone: [employer] 04-18-2022 15:20-0400 Systolic blood pressure 119 mm[Hg] Lebron Guevara MD Work Phone: [employer] 02-27-2022 15:55-0400 Body height 170.2 cm Josemanuel Ibarra MD Work Phone: [employer] 02-27-2022 15:55-0400 Body mass index (BMI) [Ratio] 28.61 kg/m2 Josemanuel Ibarra MD Work Phone: [employer] 02-27-2022 15:55-0400 Body weight 82.87 kg Josemanuel Ibarra MD Work Phone: [employer] 02-27-2022 15:50-0400 Body temperature 98.1 [degF] Josemanuel Ibarra MD Work Phone: [employer] 02-27-2022 15:50-0400 Diastolic blood pressure 76 mm[Hg] Josemanuel Ibarra MD Work Phone: [employer] 02-27-2022 15:50-0400 Heart rate 71 /min Josemanuel Ibarra MD Work Phone: [facility] [employer] 02-27-2022 15:50-0400 Respiratory rate 18 /min Josemanuel Ibarra MD Work Phone: [employer] [facility] 02-27-2022 15:50-0400 SaO2% (BldA) [Mass fraction] 98 % Josemanuel Ibarra MD Work Phone: [employer] 02-27-2022 15:50-0400 Systolic blood pressure 135 mm[Hg] Josemanuel Ibarra MD Work Phone: [employer] 02-08-2022 19:11-0400 Body height 170.2 cm Josemanuel Ibarra MD Work Phone: [employer] 02-08-2022 19:11-0400 Body mass index (BMI) [Ratio] 28.93 kg/m2 Josemanuel Ibarra MD Work Phone: [facility] [employer] 02-08-2022 19:11-0400 Body temperature 98.6 [degF] Josemanuel Ibarra MD Work Phone: [employer] 02-08-2022 19:11-0400 Body weight 83.78 kg Josemanuel Ibarra MD Work Phone: [facility] 02-08-2022 19:11-0400 Diastolic blood pressure 76 mm[Hg] Josemanuel Ibarra MD Work Phone: [facility] 02-08-2022 19:11-0400 Heart rate 85 /min Josemanuel Ibarra MD Work Phone: [employer] 02-08-2022 19:11-0400 Respiratory rate 18 /min Josemanuel Ibarra MD Work Phone: [employer] 02-08-2022 19:11-0400 SaO2% (BldA) [Mass fraction] 99 % Josemanuel Ibarra MD Work Phone: [employer] 02-08-2022 19:11-0400 Systolic blood pressure 124 mm[Hg] Josemanuel Ibarra MD Work Phone: [facility] Encounters Encounter Date Encounter Type Care Provider Facility Start: 05-27-2024 End: 05-27-2024 Bamboo flowsheet Jo DENNIS Work Phone: [facility] Start: 05-27-2024 End: 05-27-2024 Bamboo flowsheet Jo DENNIS Work Phone: [facility] Start: 05-27-2024 End: 05-27-2024 Office outpatient visit 15 minutes Jo DENNIS Work Phone: [facility] Comment on above: Second trimester pre gnancy; 22 weeks gestation of ; Diabetes mellitus screening; Decreased appetite Start: 05-27-2024 End: 05-27-2024 ambulatory JO ANDERSON Not Available Start: 04-29-2024 End: 04-29-2024 ambulatory JO ANDERSON Not Available Start: 04-23-2024 End: 04-23-2024 Emergency department patient visit [facility] Start: 03-30-2024 End: 03-30-2024 ambulatory JULIUS KEIRA Not Available Start: 02-23-2024 End: 02-23-2024 ambulatory JULIUS KEIRA Not Available Start: 02-01-2024 End: 02-01-2024 Emergency department patient visit [facility] Start: 01-12-2024 End: 01-12-2024 ambulatory JO CHRISTY Not Available Start: 12-14-2023 End: 12-14-2023 Emergency department patient visit [facility] Start: 11-27-2023 End: 11-27-2023 ambulatory JO CHRISTY Not Available Start: 11-14-2023 End: 11-14-2023 ambulatory Julius Keira Facility:[facility] Start: 11-14-2023 End: 11-14-2023 ambulatory Julius Keira Work Phone: [facility] Work Phone: Start: 11-14-2023 End: 11-14-2023 Departed Referred Julius Keira Work Phone: [facility] Start: 11-13-2023 End: 11-13-2023 Emergency department patient visit [facility] Start: 11-13-2023 End: 11-13-2023 ambulatory JULIUS KEIRA Not Available Start: 10-16-2023 End: 10-16-2023 ambulatory JULIUS KEIRA Not Available Start: 09-08-2023 End: 09-08-2023 Emergency department patient visit Fercho Jaime [facility] Start: 06-05-2023 End: 06-05-2023 Emergency department patient visit Fercho Jaime Facility:[facility] Start: 06-05-2023 End: 06-05-2023 Emergency department patient visit Fercho Jaime [facility] Start: 04-05-2023 End: 04-05-2023 Emergency department patient visit DELFIN Kellogg [facility] Start: 03-23-2023 End: 03-23-2023 Emergency department patient visit DELFIN Kellogg [facility] Start: 12-05-2022 End: 12-06-[address] JULIUS CROCKETT . Facility: Start: 12-05-2022 End: 12-06-2022 ambulatory JO ANDERSON . Facility: Start: 11-26-2022 End: 12-23-2022 Pre-admission assessment Shawn Wilson [facility] Start: 11-25-2022 End: 11-26-2022 ambulatory Shawn Wilson Facility:[facility] Start: 11-25-2022 End: 11-25-2022 OB Triage Shawn Wilson [facility] Start: 11-07-2022 End: 11-07-[address] JULIUS CROCKETT . Facility: Start: 11-07-2022 End: 11-07-2022 ambulatory JO ANDERSON . Facility: Start: 10-04-2022 End: 10-05-[address] JULIUS CROCKETT . Facility: Start: 10-04-2022 End: 10-05-[address] DELFIN URBANO . Facility: Start: 09-30-2022 End: 09-30-2022 Emergency department patient visit Morgan Falk DO Work Phone: [facility] Comment on above: Nausea and vomiting during (Primary Dx) Start: 09-26-2022 End: 09-26-2022 Emergency department patient visit Nguyen Edmonds MD Work Phone: [facility] Comment on above: Cellulitis of right upper extremity (Primary Dx) Start: 09-20-2022 End: 09-21-2022 ambulatory ALFRED BERGERON Facility: Start: 09-08-2022 End: 09-08-2022 Emergency department patient visit DO Sissy Shah Facility:[facility] Start: 09-04-2022 End: 09-04-2022 Emergency department patient visit Lebron Guevara MD Work Phone: [facility] Comment on above: Vomiting of pregnanc y, antepartum (Primary Dx); Dehydration during Start: 09-02-2022 End: 09-02-2022 Emergency department patient visit Coleman Ludwig Facility:[facility] Start: 08-28-2022 End: 08-29-2022 Emergency department patient visit Alfredito Brennan Facility:[facility] Start: 08-28-2022 End: 08-29-2022 Emergency department patient visit Alfredito Brennan [facility] Start: 08-26-2022 End: 08-26-2022 Emergency department patient visit Kei Moore Facility:[facility] Start: 08-26-2022 End: 08-26-2022 Emergency department patient visit Kei Moore [facility] Start: 08-24-2022 End: 08-24-2022 Emergency department patient visit Andrea Mitchell MD Work Phone: [facility] Comment on above: Hyperemesis gravidar um (Primary Dx); Dehydration Start: 08-10-2022 End: 08-10-2022 Emergency department patient visit Lebron Guevara MD Work Phone: [facility] Comment on above: Abdominal pain durin g in first trimester (Primary Dx); Nausea and vomiting during Start: 08-06-2022 End: 08-06-2022 Emergency department patient visit Morgan Falk DO Work Phone: [facility] Comment on above: Morning sickness (Pr imary Dx) Start: 07-12-2022 End: 07-12-2022 Emergency department patient visit DO Sissy Shah Facility:[facility] Start: 07-12-2022 End: 07-12-2022 Emergency department patient visit Sissy Shah [facility] Start: 07-01-2022 End: 07-01-2022 Emergency department patient visit Alejandra Winkler MD Work Phone: [facility] Comment on above: Pain, dental (Primar y Dx); History of tooth extraction, unspecified edentulism class Start: 04-18-2022 End: 04-18-2022 Emergency department patient visit Lebron Guevara MD Work Phone: [facility] Comment on above: Abdominal cramping ( Primary Dx); Negative test Start: 04-09-2022 End: 04-09-2022 ambulatory LAURA GONZALEZ Facility:[facility] Start: 02-27-2022 End: 02-27-2022 Emergency department patient visit Josemanuel Ibarra MD Work Phone: [facility] Comment on above: Pain, dental (Primar y Dx) Start: 02-15-2022 End: 02-16-[address] DELFIN URBANO . Facility:[facility] Start: 02-08-2022 End: 02-08-2022 Emergency department patient visit Josemanuel Ibarra MD Work Phone: [facility] Comment on above: Non-intractable vomi ting with nausea, unspecified vomiting type (Primary Dx) Start: 06-02-2017 End: 06-02-2017 Emergency department patient visit JO LIMA [facility] Procedures Date Procedure Procedure Detail Performing Clinician Start: 05-27-2024 Urnls dip stick/tabl et rgnt non-auto w/o micrscp Jo DENNIS Work Phone: Start: 09-04-2022 Drug tst prsmv instr mnt [...] Treatment Date Care Activity Detail Author Start: 06-28-2024 End: 06-28-2024 Patient encounter procedure 06/28/2024 10:40 AM EST Routine [facility] [address] [place] [id number] Julius Crockett, [address] [place] [address] [facility] Start: 05-27-2024 End: 05-27-2025 CBC panel - Blood by Automated count CBC Lab Routine Diabetes mellitus screening Expected: 05/27/2024 (Approximate), Expires: 05/27/2025 [facility] Work Phone: Comment on above: Expected: 05/27/2024 (Approximate), Expires: 05/27/2025 Start: 05-27-2024 End: 05-27-2025 Measurement of glucose 1 hour after glucose challenge for glucose tolerance test Glucose tolerance, 1 hour Lab Routine Diabetes mellitus screening Expected: 05/27/2024 (Approximate), Expires: 05/27/2025 [facility] Comment on above: Expected: 05/27/2024 (Approximate), Expires: 05/27/2025 Start: 05-27-2024 End: 05-27-2024 Patient encounter procedure 05/27/2024 10:30 AM EDT Routine [facility] [address] [place] [id number] Jo Anderson PA [address] [place], [place] [id number] Arrived [facility] Comment on above: Arrived Start: 04-25-2024 Influenza vaccination Influenza Vacc ine (#1) [facility] Start: 03-18-2024 DTaP/Tdap/Td vaccine (6 - Td or Tdap) DTaP/Tdap/Td vaccine (6 - Td or Tdap) [facility] Proenza Schouer Start: 08-12-2022 End: 08-10-2023 hCG, Quantitative, hCG, Quantitative, Lab Routine Abdominal pain during in first trimester Expected: 08/12/2022, Expires: 08/10/2023 [facility]: Comment on above: Expected: 08/12/2022 , Expires: 08/10/2023 Start: 2022 Screening for malign ant neoplasm of cervix Pap smear [facility] Start: 04-25-2022 Influenza vaccination B ON [employer] Start: 03-25-2022 Influenza vaccination Flu vaccine (# 1) [facility] Start: 2019 Hepatitis C screening Hepatitis C sc reen [facility] Start: 2017 Screening for Chlamy brian trachomatis [facility] Start: 2016 HIV screening HIV screen [facility] [employer] Start: 2013 Depression Screen Depression Screen [facility] Start: 2006 COVID-19 Vaccine (1) COVID-19 Vaccin e (1) [facility] Start: 01-06-2002 COVID-19 Vaccine (#1) COVID-19 Vacci ne (#1) [employer] End: 08-10-2022 US OB TRANSVAGINAL US OB TRANSVAGINAL Imaging STAT Once for 1 Occurrences starting 08/10/2022 until 08/10/2022 [employer] [facility] Work Phone: Comment on above: Once for 1 Occurrenc es starting 08/10/2022 until 08/10/2022 US OB TRANSVAGINAL US OB TRANSVA GINAL Imaging STAT 08/10/2022 1:21 AM EST [employer] [facility] Work Phone: Immunizations Immunization Date Immunization Notes Care Provider Robert bravo 07-29-2005 influenza virus vacc ine, unspecified formulation Jo DENNIS Work Phone: [facility] Payers Date Payer Category Payer Medicaid [employer] [place] [employer] [id number] 2022-Present [address] [place] [address] [id number] 2001 Unknown [id number] 2.16.840.1.114730.3.579.2.593 2001 Unknown [id number] 2.16.840.1.196802.3.579.2.593 2001 Unknown [id number] 2.16.840.1.523480.3.579.2.593 2001 Unknown [id number] 2.16.840.1.706056.3.579.2.593 2001 Unknown [id number] 2.16.840.1.322465.3.579.2.593 2001 Unknown [id number] 2.16.840.1.981992.3.579.2.593 2001 Unknown [id number] 2.16.840.1.362976.3.579.2.593 2001 Unknown [id number] 2.16.840.1.303477.3.579.2.593 2001 Unknown [id number] 2.16.840.1.124720.3.579.2.593 2001 Unknown [id number] 2.16.840.1.980992.3.579.2.593 2001 Unknown [id number] 2.16.840.1.472567.3.579.2.727 2001 Unknown [id number] 2.16.840.1.384012.3.579.2.727 2001 Unknown [id number] 2.16.840.1.153091.3.579.2.727 2001 Unknown [id number] 2.16.840.1.914032.3.579.2.727 2001 Unknown [id number] 2.16.840.1.617327.3.579.2.727 2001 Unknown [id number] 2.16.840.1.823853.3.579.2.727 2001 Unknown [id number] 2.16.840.1.601114.3.579.2.727 2001 Unknown [id number] 2.16.840.1.620921.3.579.2.173 2001 Unknown [id number] 2.16.840.1.360045.3.579.2.173 2001 Unknown [id number] 2.16.840.1.790977.3.579.2.174 2001 Unknown [id number] 2.16.840.1.865783.3.579.2.174 2001 Unknown [id number] 2.16.840.1.355290.3.579.2.174 2001 Unknown [id number] 2.16.840.1.781158.3.579.2.727 2001 Unknown [id number] 2.16.840.1.098303.3.579.2.1259 2001 Unknown [id number] 2.16.840.1.736699.3.579.2.9 2001 Unknown [id number] 2.16.840.1.345413.3.579.2.9 2001 Unknown [id number] 2.16.840.1.036299.3.579.2.9 2001 Unknown [id number] 2.16.840.1.437412.3.579.2.9 2001 Unknown [id number] 2.16.840.1.721080.3.579.2.9 2001 Unknown [id number] 2.16.840.1.802430.3.579.2.9 2001 Unknown [id number] 2.16.840.1.733941.3.579.2.1259 1959 Self-pay 1959 Unknown [id number] 1.2.840.019852.1.13.239.2.7.3.6 [id number] Unknown [id number] 2.16.840.1.564085.3.579.2.593 Social History Date Type Detail Facility Start: 06-02-2017 End: 03-12-2023 Tobacco smoking status [facility] Never smoked tobacco [employer] Phone: Start: 06-02-2017 End: 03-12-2023 Tobacco use and exposure Smokeless tobacco non-user [employer] Phone: Start: 02-08-2022 End: 09-30-2022 Alcohol intake Current non-drinker of alcohol (finding) [employer] Phone: Start: 02-08-2022 End: 09-30-2022 History SDOH Alcohol Frequency 1 [employer] Phone: Start: 2001 Sex Assigned At Not on file B [employer] Phone: Start: 01-29-2022 End: 09-30-2022 Exposure to SARS-CoV-2 (event) Not sure [employer] Phone: Start: 07-01-2022 End: 09-30-2022 History SDOH Alcohol Std Drinks 0 [employer] Phone: Tobacco Household tobacc o concerns: Yes. [facility] Comment on above: denies Tobacco smoking status No Smokin g Status Entered [facility] Start: 05-28-2023 Sex Assigned At Female F [facility] Start: 07-25-2022 ALLISON Ach[employer]a [employer] Phone: Start: 09-08-2023 Tobacco smoking status Ex-smoker (fi nding) [facility] Comment on above: hx of smoking quit i n 2021 Start: 2001 Sex Assigned At Female F [facility] Start: 04-29-2024 End: 05-27-2024 Alcoholic beverage intake Lifetime non-drinker (finding) [facility] Start: 05-28-2023 History of Social function [facility] Start: 02-19-2024 Gender identity Identifies as female gender (finding) [facility] Start: 02-19-2024 Sexual orientation Heterosexual (fin ding) [facility] Functional Status Date Assessment Result Facility 04-23-2024 Functional Status N/A [facility] 09-08-2023 Functional Status N/A [facility] 06-05-2023 Functional Status N/A [facility] 11-25-2022 Functional Status N/A [facility] 08-28-2022 Functional Status N/A [facility] 08-26-2022 Functional Status N/A [facility] 07-12-2022 Functional Status Yes [facility] Clinical Notes 07-12-2022 to 05-27-2024 SONNY Velez - 05/27/2024 10:30 AM EDT Note Date & Type Note Facility 05-27-2024 History of Presen t illness Narrative Reason for Appointment: Patient ID: Roque Pierson is a 23 y.o. female who presents for Routine Visit Patient presents today for Return OB appointment. MEDICATIONS Current Outpatient Medications Medication Instructions nutritional drink (Boost) liquid 1 Can, Oral, Daily ALLERGIES No Known Allergies PROBLEMS Active Ambulatory Problems Diagnosis Date Noted Nausea and vomiting 03/10/2023 Other specified related conditions, unspecified trimester 03/10/2023 Unspecified abdominal pain 03/10/2023 Resolved Ambulatory Problems Diagnosis Date Noted No Resolved Ambulatory Problems Past Medical History: Diagnosis Date BMI 26.0-26.9,adult Encounter for fertility planning HISTORY PAST MEDICAL HISTORY SOCIAL HISTORY Past Medical History: Diagnosis Date BMI 26.0-26.9,adult Encounter for fertility planning Social History Tobacco Use Smoking status: Never Smokeless tobacco: Never Substance Use Topics Alcohol use: Never Drug use: Never FAMILY HISTORY Family History Problem Relation Name Age of Onset Diabetes type II Mother Other (reactive airway) Son SURGICAL HISTORY Past Surgical History: Procedure Laterality Date PAP SMEAR 11/07/2022 negative WISDOM TOOTH EXTRACTION REVIEW OF SYSTEMS Review of Systems: Review of Systems Constitutional: Negative. HENT: Negative. Eyes: Negative. Respiratory: Negative. Cardiovascular: Negative. Gastrointestinal: Negative. Genitourinary: Negative. Musculoskeletal: Negative. Skin: Negative. Neurological: Negative. All other systems reviewed and are negative. Hematological: Negative. Endocrine: Negative. Allergic/Immunologic: Negative. OBJECTIVE Objective: Physical Exam Constitutional: Appearance: Normal appearance. She is normal weight. HENT: Head: Normocephalic. Cardiovascular: Rate and Rhythm: Normal rate. Pulses: Normal pulses. Pulmonary: Effort: Pulmonary effort is normal. Breath sounds: Normal breath sounds. Abdominal: Palpations: Abdomen is soft. Musculoskeletal: General: Normal range of motion. Neurological: General: No focal deficit present. Mental Status: She is alert and oriented to person, place, and time. Psychiatric: Mood and Affect: Mood normal. Behavior: Behavior normal. Thought Content: Thought content normal. Judgment: Judgment normal. Vitals and nursing note reviewed. Vitals: Estimated body mass index is 26 kg/m as calculated from the following: Height as of 01/12/24: 5' 7 . Weight as of this encounter: 166 lb. BP: 110/64 Patient's last menstrual period was 12/22/2023. ASSESSMENT & PLAN ICD-10-CM 1. Second trimester Z34.92 POCT urinalysis dipstick manually resulted 2. 22 weeks gestation of Z3A.22 POCT urinalysis dipstick manually resulted 3. Diabetes mellitus screening Z13.1 CBC Glucose tolerance, 1 hour 4. Decreased appetite R63.0 nutritional drink (Boost) liquid Return OB: Patient presents today for a routine obstetrics appointment. Patient is currently 22w1d . Patient states she is doing well but has complaints of being tired due to current . Patient has verbalizes frequent movement. Orders Placed This Encounter Procedures CBC Glucose tolerance, 1 hour POCT urinalysis dipstick manually resulted Follow Up: Patient is to return to office in 4 week for routine OB appointment. Documented by SONNY Velez on behalf of: SONNY Velez documented in this encounter [facility] 04-23-2024 Hospital Discharg e instructions Patient Education 04/23/2024 12:06:38 Abdominal Pain, Adult Abdominal Pain, Adult Pain in the abdomen (abdominal pain) can be caused by many things. In most cases, it gets better with no treatment or by being treated at home. But in some cases, it can be serious. Your health care provider will ask questions about your medical history and do a physical exam to try to figure out what is causing your pain. Follow these instructions at home: Medicines Take zyxk-dgu-bpehwsv and prescription medicines only as told by your provider. Do not take medicines that help you poop (laxatives) unless told by your provider. General instructions Watch your condition for any changes. Drink enough fluid to keep your pee (urine) pale yellow. Contact a health care provider if: Your pain changes, gets worse, or lasts longer than expected. You have severe cramping or bloating in your abdomen, or you vomit. Your pain gets worse with meals, after eating, or with certain foods. You are constipated or have diarrhea for more than 2 3 days. You are not hungry, or you lose weight without trying. You have signs of dehydration. These may include: ?Dark pee, very little pee, or no pee. ?Cracked lips or dry mouth. ?Sleepiness or weakness. You have pain when you pee (urinate) or poop. Your abdominal pain wakes you up at night. You have blood in your pee. You have a fever. Get help right away if: You cannot stop vomiting. Your pain is only in one part of the abdomen. Pain on the right side could be caused by appendicitis. You have bloody or black poop (stool), or poop that looks like tar. You have trouble breathing. You have chest pain. These symptoms may be an emergency. Get help right away. Call 911. Do not wait to see if the symptoms will go away. Do not drive yourself to the hospital. This information is not intended to replace advice given to you by your health care provider. Make sure you discuss any questions you have with your health care provider. Document Revised: 05/28/2023 Document Reviewed: 05/28/2023 [employer] Patient Education 2023 [employer] [facility] Up Care 04/23/2024 09:37:57 With:Julius CROCKETT Address: [address] , [place] [address]- Business (1) When:04/26/2024 11:53:03 With:Delfin Urbano Address: [address] [place] [id number]- Business (1) When:04/26/2024 11:52:53 [facility] 04-23-2024 Note ED Patient Education Note Gastroenterology Abdominal Pain, Adult Pain in the abdomen (abdominal pain) can be caused by many things. In most cases, it gets better with no treatment or by being treated at home. But in some cases, it can be serious. Your health care provider will ask questions about your medical history and do a physical exam to try to figure out what is causing your pain. Follow these instructions at home: Medicines ? Take erkb-ujc-gzgthkh and prescription medicines only as told by your provider. ? Do not take medicines that help you poop (laxatives) unless told by your provider. General instructions ? Watch your condition for any changes. ? Drink enough fluid to keep your pee (urine) pale yellow. Contact a health care provider if: ? Your pain changes, gets worse, or lasts longer than expected. ? You have severe cramping or bloating in your abdomen, or you vomit. ? Your pain gets worse with meals, after eating, or with certain foods. ? You are constipated or have diarrhea for more than 2?3 days. ? You are not hungry, or you lose weight without trying. ? You have signs of dehydration. These may include: ? Dark pee, very little pee, or no pee. ? Cracked lips or dry mouth. ? Sleepiness or weakness. ? You have pain when you pee (urinate) or poop. ? Your abdominal pain wakes you up at night. ? You have blood in your pee. ? You have a fever. Get help right away if: ? You cannot stop vomiting. ? Your pain is only in one part of the abdomen. Pain on the right side could be caused by appendicitis. ? You have bloody or black poop (stool), or poop that looks like tar. ? You have trouble breathing. ? You have chest pain. These symptoms may be an emergency. Get help right away. Call 911. ? Do not wait to see if the symptoms will go away. ? Do not drive yourself to the hospital. This information is not intended to replace advice given to you by your health care provider. Make sure you discuss any questions you have with your health care provider. Document Revised: 05/28/2023 Document Reviewed: 05/28/2023 Diurnal Patient Education ? 2023 Dajie. [facility] 09-08-2023 Evaluation + Plan note Extrac charito from: Title:ED Note Author:E[place] PA-C te:09/08/23 Bronchitis (J40: Bronchitis, not specified as acute or chronic) Orders: brompheniramine/dextromethorphan/PSE, 10 mL, Oral, QID for cough and congestion for 7 day(s), 280 mL, Refill(s) 0, [employer] [facility]16, 175, cm, 09/08/23 11:11:00 EST, Height/Length Dosing, 79.5, kg, 09/08/23 11:11:00 EST, Weight Dosing XR Chest 2 Views [facility]01-15-2024 Hospital Discharge instructions Patient Education 09/08/2023 [...] condition. Follow these instructions at home: Take hded-jyy-nsnzuan and prescription medicines only as told by [...] and water are not available, use hand mask design engineer. Avoid contact with people who have cold [...] it is easier to cough up. Take ouyv-zhh-gmmdnvd and prescription medicines only as told by [...] provider. Document Revised: 11/21/2022 Document Reviewed: 12/12/2021 Diurnal Patient Education 2022 Dajie. Follow Up Care 09/08/2023 11:03:42 With:Delfin Guillaume Address: [address] [place] [address]- Business (1) When:09/11/2023 11:37:37 [facility]10-12-2023 Hospital Discharge instructions Patient Education 06/05/2023 [...] help with your condition: Managing pain Take eloi-rkk-xbuttdr and prescription medicines only as told by [...] provider. Document Revised: 01/09/2022 Document Reviewed: 01/09/2022 Diurnal Patient Education 2022 Dajie. Follow Up Care 06/05/2023 15:22:25 With:Delfin Urbano Address: [address] [place], [place] [id number] Business (1) When:06/08/2023 18:17:47 Comments:Call the office [...] you develop any new or worsening symptoms. [facility]10-12-2023 Evaluation + Plan noteExtracted from: Title:ED [...] eGFR Influenza A&B Ag Rapid COVID Antigen ([facility]) U Beta Hcg Qual [facility]04-04-2023 NoteThe following Patient Education Materials have been given to the patient: [facility] Hospital Discharge instructions Patient Education 11/25/2022 22:14:49 [...] or until the pain goes away. Take xgva-ujd-rvltgwr and prescription medicines only as told by [...] 05/20/2009 Document Revised: 01/27/2019 Document Reviewed: 01/27/2019 Diurnal Patient Education 2020 Dajie. 11/25/2022 22:14:49 Morning Sickness, Evio-fr-Vhkp Morning Sickness Morning sickness is when you [...] Follow these instructions at home: Medicines Take fewg-pby-khimsce and prescription medicines only as told by [...] 09/18/2005 Document Revised: 07/24/2018 Document Reviewed: 09/11/2017 Diurnal Patient Education 2020 [employer] 11/25/2022 22:14:49 Second Trimester of , Mafd-dr-Jzhv Second Trimester of The second trimester is [...] Follow these instructions at home: Medicines Take ttgg-zuk-jwncdoz and prescription medicines only as told by [...] 11/05/2010 Document Revised: 12/03/2019 Document Reviewed: 09/16/2017 Diurnal Patient Education 2020 Dajie. 11/25/2022 22:14:49 Abdominal Pain During , Jelg-wd-Qxzy Abdominal Pain During Belly (abdominal) pain is [...] keep your pee (urine) pale yellow. Take zvzz-shp-yeiwudz and prescription medicines only as told by [...] 07/30/2010 Document Revised: 11/29/2019 Document Reviewed: 11/13/2017 Diurnal Patient Education 2020 Dajie. Follow Up Care 11/25/2022 18:22:07 With:Your doctor in [place] [phone] Address:Unknown When:11/28/2022 21:41:43 Comments:Call for any problems.Call [...] work. May take Tylenol for pain relief. [facility]02-06-2023 Hospital Discharge instructions* Discharge Instructions* Morgan Falk DO - 09/30/2022 9:10 AM EST Zofran as needed for nausea. Follow-up with OB next week as scheduled. Return to ER for worsening symptoms including intractable vomiting or abdominal pain or fevers or chills or any vaginal bleeding. * Attachments The following attachments cannot be sent through Care Everywhere. * : Hyperemesis Gravidarum (Togolese) [facility] Phone: [phone] Hospital Discharge instructions* Attachments The following attachments cannot be sent through Care Everywhere. * : Morning Sickness (Togolese) * Oral Rehydration (Togolese) documented in [facility] [employer] Expert Phone: [phone] Evaluation + Plan noteExtracted from: Title:ED Note [...] UA With Cult Reflex US 1st Trimester [facility]01-05-2023 Hospital Discharge instructions Patient Education 08/29/2022 [...] water added (diluted fruit juice). Eat bland, dsqy-ty-yemnou foods in small amounts as you are able. These foods include bananas, applesauce, rice, lean meats, toast, and crackers. Avoid drinking fluids that contain a lot of sugar or caffeine, such as energy drinks, sports drinks, and soda. Avoid alcohol. Avoid spicy or fatty foods. General instructions Take ljmi-ule-apaelft and prescription medicines only as told by your health care provider. Rest at home while you recover. Drink enough fluid to keep your urine pale yellow. Breathe slowly and deeply when you feel nauseous. Avoid smelling things that have strong odors. Wash your hands often using soap and water. If soap and water are not available, use hand mask design engineer. Make sure that all people in your [...] recommendations for eating and drinking and take tkww-blv-zieunsn and prescription medicinesonly as told by your [...] 09/18/2005 Document Revised: 01/19/2019 Document Reviewed: 01/19/2019 Diurnal Patient Education 2020 [employer] 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 Avoid heavy [...] disease or chickenpox. You are exposed to Occitan measles (rubella) and have never had it. [...] 08/05/2002 Document Revised: 07/24/2018 Document Reviewed: 07/23/2017 Diurnal Patient Education 2020 [employer] 08/29/2022 01:49:40 Abdominal Pain During Abdominal Pain [...] to keep your urine pale yellow. Take eiwf-zdi-raukwwg and prescription medicines only as told by [...] 08/11/2006 Document Revised: 11/29/2019 Document Reviewed: 11/13/2017 Diurnal Patient Education 2020 Dajie. Follow Up Care 08/28/2022 21:30:23 With:Julius CROCKETT Address: [address] , [place] [address]- Business (1) When:09/01/2022 Comments:Return to the emergency room if your pain gets worse, general bleeding, vomiting or any new symptoms With:Delfin Urbano Address: [address] [place] [address] [place] [address]- Business (1) When:Within 3 Day(s) [facility]01-02-2023 Evaluation + Plan noteExtracted from: Title:ED [...] Tube Lipase Level UA With Cult Reflex [facility]01-02-2023 Hospital Discharge instructions Follow Up Care 08/26/2022 11:00:10 With:Julius CROCKETT Address: [address] [place] [address]- Business (1) When:08/29/2022 12:48:07 With:Delfin Urbano Address: [facility] [place] [address]- Business (1) When:Within 3 Day(s) [facility]12-31-2022 History of Present illness Narrative* Shantanu Jameson RN - 08/24/2022 2:15 AM EST Patient resting with eyes closed documented in this encounterD[facility] [employer] Expert Phone: [phone] Hospital Discharge instructions* Discharge Instructions* Lebron Guevara MD - 08/10/2022 2:09 AM EST By Last Menstrual of 07/12, I calculated your due date as 04/18/2023 4 weeks 1 day as of 08/10/2022 * Attachments The following attachments cannot be sent through Care Everywhere. * : Abdominal Pain (Togolese) * : Morning Sickness (Togolese) [facility] Watch Phone: [phone] Hospital Discharge instructions* Discharge Instructions* Morgan Falk DO - 08/06/2022 1:40 AM EST Take kbby-tgo-ilyddtl Prilosec as needed for heartburn symptoms. Call to establish care. Return to ER for worsening symptoms. * Attachments The following attachments cannot be sent through Care Everywhere. * : Morning Sickness (Togolese) documented [facility] Watch Phone: [phone] Evaluation note* Diagnosis Morning sickness- Primary Mild hyperemesis gravidarum, unspecified as to episode of care documented in this encounter [facility] Watch Phone: [phone] 273-405611-18-2022 Evaluation + Plan noteExtracted from: Title:ED Note [...] With Cult Reflex XR Chest Single View [facility]11-18-2022 Hospital Discharge instructions Patient Education 07/12/2022 05:07:15 Abdominal Pain, Adult, Bdhq-ld-Pyjz Abdominal Pain, Adult Many things can cause belly (abdominal) pain. Most times, belly pain is not dangerous. Many cases of belly pain can be watched and treated at home. Sometimes, though, belly pain is serious. Your doctor will try to find the cause of your belly pain. Follow these instructions at home: Medicines Take bezd-zdh-cpmokpm and prescription medicines only as told by [...] your belly pain for any changes. Take whkx-hxf-fzukqja and prescription medicines only as told by [...] 01/27/2009 Document Revised: 12/20/2019 Document Reviewed: 12/20/2019 Diurnal Patient Education 2020 Dajie. Follow Up Care 07/12/2022 03:38:09 With:Delfin Urbano Address: [address] [place] [address] Business (1) When:07/15/2022 Comments:Take the Pepcid once [...] theED for any new or worsening symptoms. [facility]* Diagnosis Non-intractable vomiting with nausea, unspecified vomiting type- Primary documented in this encounter [employer] Phone: evaluation note* Diagnosis Pain, dental- Primary Unspecified disorder of the teeth and supporting structures documented in this encounter [employer] Phone: evaluation note* Diagnosis Abdominal cramping- Primary Abdominal pain, unspecified site Negative test examination or test, negative result documented in this encounter [employer] Phone: evaliudwie note* Diagnosis Pain, dental- Primary Unspecified disorder of the teeth and supporting structures History of tooth extraction, unspecified edentulism class documented in this encounter [facility] [employer] Expert Phone: evalehxlgl note* Diagnosis Abdominal pain during in first trimester- Primary Nausea and vomiting during documented in this encounter [facility] [employer] Expert Phone: evalmifwge note* Diagnosis Hyperemesis gravidarum- Primary Mild hyperemesis gravidarum, unspecified as to episode of care Dehydration documented in this encounter [facility] [employer] Expert Phone: evaltzvpqm note* Diagnosis Vomiting of , antepartum- Primary Unspecified vomiting of , antepartum Dehydration during documented in this encounter [facility] [employer] Expert Phone: evalhbvhrr note* Diagnosis Cellulitis of right upper extremity- Primary Cellulitis and abscess of upper arm and forearm documented in this encounter [facility] [employer] Expert Phone: evaloroiwx note* Diagnosis Nausea and vomiting during - Primary documented in this encounter [facility] [employer] Expert Phone: evaluation noteNo assessment information available [facility] Work Phone: Evaluation note* Diagnosis Second trimester state, incidental 22 weeks gestation of Diabetes mellitus screening Screening for diabetes mellitus Decreased appetite Anorexia documented [facility] Narrative No data available for this section [facility] Dis[facility]* Attachments The following attachments cannot be sent through Care Everywhere. * Nausea and Vomiting (Togolese) documented in this [facility] [employer] Expert Phone: Hospital Discharge instructions* Attachments The following attachments cannot be sent through Care Everywhere. * Tooth and Gum Pain (Togolese) documented in this encounterD[facility] [employer] Expert Phone: Hospital Discharge instructions* Attachments The following attachments cannot be sent through Care Everywhere. * Abdominal Pain (Togolese) documented in this encounterD[facility] [employer] Expert Phone: Hospital Discharge instructions* Attachments The following attachments cannot be sent through Care Everywhere. * [place] Tooth Extraction: Post-op (Togolese) documented in [facility] encounterP[facility] Watch Phone: Hospital Discharge instructions* Attachments The following attachments cannot be sent through Care Everywhere. * Oral Rehydration (Togolese) documented in this encounterP[facility]ITALNeurotron Biotechnology [facility]ITALPoolami Phone: Hospital Discharge instructions* Attachments The following attachments cannot be sent through Care Everywhere. * Cellulitis (Togolese) documented in [facility] Watch Phone: Hospital Discharge instructions No data available for this section [facility] No data available for this section [facility] Summary Purpose Family History No Family History Records FoundNo Family History Records Found No data available for this section No Family History Records Found No data available for this section No Family History Records FoundNo Family History Records FoundNo Family History Records Found No data available for this section No Family History Records FoundNo Family History Records Found Advance Directives Documents on File Type Date Recorded Patient Psychologist Social Expl anation ACP-Advance Directive ACP-Power of Baggage Handler Additional Source Comments INFORMATION SOURCE (unrecogn ized section and content) DATE CREATED AUTHOR 02/17/2018 [facility] DATE CREATED AUTHOR AUTHOR'S ORGANIZ ATION 12/09/2022 [facility] DATE CREATED AUTHOR AUTHOR'S ORGANIZ ATION 06/07/2023 [facility] DATE CREATED AUTHOR AUTHOR'S ORGANIZ ATION 11/15/2023 [facility] DATE CREATED AUTHOR AUTHOR'S ORGANIZ ATION 11/20/2023 [facility] DATE CREATED AUTHOR AUTHOR'S ORGANIZ ATION 02/01/2024 [facility] DATE CREATED AUTHOR AUTHOR'S ORGANIZ ATION 04/28/2024 [facility] DATE CREATED AUTHOR AUTHOR'S ORGANIZ ATION 05/29/2024 [facility] EPIC Reason for Visit (unrecogniz ed section and content) Reason Comments Nausea Started today with h eadach then became nausous and threw up multiple [...] she took 2 positive tests from the [employer] but she wanted to come to the hospital to get it checked. 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 an SUPPORT ASSISTANT Morning Sickness Nausea with no vomit ing, [...] feeling nauseated and is out of Zofran. Reason Comments Routine Visit Ordered Prescriptions (unrec ognized section and content) [...] pt 0220 (Given - Provid er: Nathen Hennessy, RN) Scheduled Medication Order 08/22/2022 08/23/2022 08/24/2022 0.9 % sodium chloride bolus (COMPLETED) 1,000 mL (13.1 mL/kg), IntraVENous, at 983.6 mL/hr, Administer over 61 Minutes, ONCE, On 08/24/22 at 0130, For 1 dose 0120 (New Bag - Prov ider: Suyapa Mcclellan RN)0222 (Stopped - Provider: Shantanu Jameson, BROOKE) diphenhydrAMINE (BENADRYL) injection 25 mg (COMPLETED) 25 mg, IntraVENous, ONCE, 1 dose, On 08/24/22 at 0130 0151 (Given - Provid er: Shantanu Jameson RN) Scheduled Medication Order 09/02/2022 09/03/2022 09/04/2022 0.9 % sodium chloride bolus (COMPLETED) 1,000 mL, IntraVENous, at 495.9 mL/hr, Administer over 121 Minutes, ONCE, On Fri09/04/22 at 2015, For 1 dose 2011 (New Bag - Prov ider: Majo Haskins, BROOKE)2133 (Stopped - Provider: Majo Haskins, BROOKE) ondansetron (ZOFRAN) injection 4 mg (COMPLETED) 4 mg, IntraVENous, ONCE, 1 dose, On Fri09/04/22 at 2045 2050 (Given - Provid er: Majo Haskins, BROOKE) Scheduled Medication Order 09/28/2022 09/29/2022 09/30/2022 ondansetron (ZOFRAN-ODT) disintegrating tablet 4 mg (COMPLETED) 4 mg, Oral, ONCE, 1 dose, On Fri09/30/22 at 0915 0932 (Given - Provid er: Clover Dorsey, BROOKE) Care Teams (unrecognized sec tion and content) Well Testing Operator Relationship Specialty Start Date End Date Delfin Urbano MD [address] [place] [address] PCP - General Family Medicine 02/08/22 Well Testing Operator Relationship Specialty Start Date End Date Delfin Urbano MD [address] [place] [address] PCP - General Family Medicine 02/08/22 Well Testing Operator Relationship Specialty Start Date End Date Delfin Urbano MD [address] [place] [address] PCP - General Family Medicine 02/08/22 Well Testing Operator Relationship Specialty Start Date End Date Delfin Urbano MD [address] [place] [address] PCP - General Family Medicine 02/08/22 Well Testing Operator Relationship Specialty Start Date End Date Delfin Urbano MD [address] [place] [address] PCP - General Family Medicine 02/08/22 Well Testing Operator Relationship Specialty Start Date End Date Delfin Urbano MD [address] [place] [address] PCP - General Family Medicine 02/08/22 Well Testing Operator Relationship Specialty Start Date End Date Delfin Urbano MD [address] [place] [address] PCP - General Family Medicine 02/08/22 Team Status: Inactive Member Role Status Jeremy Crockett Attending Provider Active Start: Neal [facility] 2023 End: November 14, 2023 Well Testing Operator Relationship Specialty Start Date End Date Delfin Urbano MD [address] [facility]], [place] [address] PCP - General Family Medicine 01/23/23 Jo Anderson PA [address] [place] [address] [place] [address] PCP - [facility] 11/24/23 Well Testing Operator Relationship Specialty Start Date End Date Delfin Urbano MD [address] [facility] [place] [address] PCP - General Family Medicine 01/23/23 Jo Anderson PA [address] [place] [address] [place] [address] PCP - [facility] 11/24/23 Goals (unrecognized section and content) Goals may [...] BE BASED ON THE PRIMARY CLINICAL RECORDS. [facility]. provides no warranty or guarantee of the accuracy or completeness of information in this document.
[2024-06-12 11:56] LABS: Basophils Percent Auto 0.6 % (0.2-2.0); Eosinophils Absolute Auto 0.1 10^3/uL (0.0-0.7); Eosinophils Percent Auto 1.8 % (0.9-7.0); Hematocrit 28.6 % (36.0-48.0); Hemoglobin 9.5 g/dL (12.0-16.0); Immature Granulocytes Abs Auto 0.02 10^3/uL (0.00-0.03); Immature Granulocytes Pct Auto 0.3 % (0.0-0.5); Lymphocytes Absolute Auto 1.4 10^3/uL (1.2-3.8); Lymphocytes Percent Auto 22.8 % (20.5-60.0); Mean Corpuscular HGB Conc 33.2 g/dL (29.9-35.2); Mean Corpuscular Hemoglobin 29.6 pg (26.7-34.0); Mean Corpuscular Volume 89.1 fL (81.0-99.0); Mean Platelet Volume 9.9 fL (9.5-13.5); Monocytes Absolute Auto 0.5 10^3/uL (0.3-0.8); Monocytes Percent Auto 8.3 % (1.7-12.0); Neutrophils Absolute Auto 4.2 10^3/uL (1.4-6.5); Neutrophils Percent Auto 66.2 % (43.0-75.0); Platelet Count 222 10^3/uL (150-450); Red Blood Count 3.21 10^6/uL (4.20-5.40); Red Cell Distribution Width 12.9 % (11.0-15.0); White Blood Count 6.3 10^3/uL (4.0-11.0)
[2024-06-12 12:31] LABS: Glucose 1 Hour 85 mg/dL (<130)
== END 2024-06-12 10:34 | disposition home or self-care (01) ==
LOC: LAB 10:34
PROVIDERS: PCP Family Medicine; Visit Provider Physician Assistant
DX: Z13.1 Encounter for screening for diabetes mellitus (principal)
CPT/HCPCS: 36415; 82950; 85025

== ENCOUNTER 2024-07-28 10:26 | Outpatient (OUT) | payer OTHER, SELFPAY ==
--- NOTE | 2024-07-28 10:33 | US_ITS ---
[address] [address] Patient Name: ROQUE PIERSON MRN: [id number] date: 2000 Sex: F Assigned Patient Location: RAD Current Patient Location: RAD Accession/Order Number: [id number] Exam Date: 07/28/2024 10:35 Report Date: 07/28/2024 12:32 At the request of: NOE HARRISON Procedure: US OB growth EXAMINATION: US OB growth HISTORY: Size Inconsistent With Dates COMPARISON: No relevant comparison available. TECHNIQUE: Transabdominal sonographic examination was performed for obstetrical and evaluation. FINDINGS: Number: 1 Heart Rate: 137.06 bpm H.B. /min Amniotic Fluid Volume: 17.5 cm, largest pocket 6.5 cm position: Breech presentation, longitudinal lie BIOMETRY: BPD: 8.19 cm; 32 weeks 6 days; 89.50 % HC: 29.95 cm; 33 weeks 1 day; 74.50 % AC: 26.09 cm; 30 weeks 2 days; 24.30 % FL: 5.56 cm; 29 weeks 2 days; 4.70 % EFW:1567.40 g; 20.40 %, 3 lbs. 7 oz. FL/AC: 21.31 FL/BPD: 67.88 HC/AC: 1.15 GESTATIONAL AGE: Age by EDC: 31 weeks 0 days [place] by EDC: 2024-09-29 Age by current US: 31 weeks 3 days [place] by current US: 2024-09-26 US/US OB growth IMPRESSION: Femur length at the 5th percentile, otherwise normal interval growth *Reference: [employer] Practice Guideline for the performance of Obstetric Ultrasound Examinations, May 25, 2007. Electronically authenticated by: ALFRED BERGERON Date: 07/28/2024 12:32
== END 2024-07-28 10:27 | disposition home or self-care (01) ==
LOC: RAD 10:27
PROVIDERS: PCP Family Medicine; Visit Provider Physician Assistant
DX: O26.843 Uterine size-date discrepancy, third trimester (principal); Z3A.31 31 weeks gestation of pregnancy
CPT/HCPCS: 76816

== ENCOUNTER 2024-08-31 19:34 | Outpatient (REF) | payer OTHER, SELFPAY ==
[2024-09-01 14:34] LABS: BOX Test Reference Lab FIRELANDS; BOX Test Sent Out GROUP B CULTURE
== END 2024-08-31 19:35 | disposition home or self-care (01) ==
LOC: LAB 19:34
PROVIDERS: PCP Family Medicine; Visit Provider Obstetrics & Gynecology
DX: Z34.93 Encounter for supervision of normal pregnancy, unspecified, third trimester (principal)
CPT/HCPCS: 36415; 87081

== ENCOUNTER 2024-09-26 04:59 | Inpatient (IN) | payer OTHER, SELFPAY ==
[2024-09-26] VITALS (78 sets, daily range): BP systolic 82–137; BP diastolic 46–76; PULSE 47–162; TEMP 35.9–36.9
--- OUTSIDE RECORDS SUMMARY | 2024-09-26 05:04 | XMS_ITS | CCD ---
Author Organization [facility] CliniSyne Care Team Providers Care Photograph Retoucher Name Role Phone JANIE JO Burk Unavailable Unavailable Ambrose Urbano MD Primary Care Provider Ambrose Urbano MD Primary Care Provider Ambrose Urbano MD Primary Care Provider [phone] Ambrose Urbano Primary Care Physician Ambrose Urbano MD Primary Care Provider [phone] JUSTIN ., JO Consulting Unavailable REQUEST, DR RENAY LISTED Primary Care Unavaila ble JUSTIN ., JO Attending Unavailable JUSTIN ., JO Admitting Unavailable KEIRA ., DR DA SILVA Consulting Unavailable HOY ., DR BOGGS Primary Care Unavailable KEIRA ., DR DA SILVA Attending Unavailable KEIRA ., DR DA SILVA Admitting Unavailable JUSTIN ., JO Consulting Unavailable HOY ., DR BOGGS Primary Care Unavailable JUSTIN ., JO Attending Unavailable JUSTIN ., JO Admitting Unavailable KEIRA ., DR DA SILVA Consulting Unavailable HOY ., DR BOGGS Primary Care Unavailable KEIRA ., DR DA SILVA Attending Unavailable KEIRA ., DR DA SILVA Admitting Unavailable HOY ., DR BOGGS Primary Care Unavailable KEIRA ., DR DA SILVA Attending Unavailable KEIRA ., DR DA SILVA Admitting Unavailable HOY ., DR BOGGS Primary Care Unavailable JUSTIN ., JO Attending Unavailable JUSTIN ., JO Admitting Unavailable KEIRA ., DR [...] DR DA SILVA Admitting Unavailable ALFRED BERGERON Consulting Unavailable HOY ., DR BOGGS Primary Care Unavailable KEIRA ., DR DA SILVA Attending Unavailable KEIRA ., DR DA SILVA Admitting Unavailable KEIRA ., DR DA SILVA Consulting Unavailable Shawn Wilson Attending Unavailable Shawn Wilson Admitting Unavailable Kei Moore Attending Unavailable Hakendell, Astrit H Attending Unavailable Coleman Ludwig Attending Unavailable DO Sissy Shah Attending Unavailable Fercho Jaime Attending Unavailable DoDO Sissy ty A Attending Unavailable AMBROSE URBANO Primary Care Unavailable AMBROSE URBANO Primary Care Unavailable Julius Crockett Attending Provider AMBROSE URBANO Primary Care Unavailable DAVID SILVA Attending Unavailable AMBROSE URBANO Primary Care Unavailable ANDREA MITCHELL Attending Unavailable AMBROSE URBANO Primary Care Unavailable MORGAN FALK Attending Unavailable Ambrose Urbano MD Primary Care Provider Jo Ledesma Unavailable DO Sissy Shah A Attending Unavailable Hasurekhaari, Astrit H Attending Unavailable Sissy Shah A Attending Unavailable Julius Crockett DO Attending Provider Richard Escudero Attending Unavailable Camille Thornton Admitting Unavailable Camille Thornton Attending Unavailable DO Anne Villagran Consulting Unavaila Anne Basilio Consulting Unavailable Anne Villagran Consulting Unavailable Julius Crockett Admitting Unavailable Julius Crockett Attending Unavailable Julius Crockett Attending Unavailable Eugene Crocketty Admitting Unavailable Norberto Camille Admitting Unavailable Trever Miranda Attending Unavailable Anne Villagran Consulting Unavailable Anne Villagran Consulting Unavailable Anne Villagran Consulting Unavailable KEIRA, JULIUS Attending Unavailable JUSTIN, JO Attending Unavailable KEIRA, JULIUS Attending Unavailable KEIRA, JULIUS Attending Unavailable JUSTIN, JO Attending Unavailable JUSTIN, JO Attending Unavailable KEIRA, JULIUS Attending Unavailable JUSTIN, JO Attending Unavailable JUSTIN, JO Attending Unavailable KEIRA, JULIUS Attending Unavailable JUSTIN, JO Attending Unavailable KEIRA, JULIUS Attending Unavailable JUSTIN, JO Attending Unavailable KEIRA, JULIUS Attending Unavailable JUSTIN, JO Attending Unavailable Medications Current Medications Medication Drug Class(es) Dates Sig (Normalized) Sig (Original) Amoxicillin (6 sources) Penicillin-class Antibacterial Start: 11-25-2022 amoxicillin 500 mg, Refills(s) 0 Start Date: 11/25/22 Status: Ordered amoxicillin 875 mg / clavulanate 125 mg oral tablet (3 sources) Penicillin-class Antibacterial Start: 09-02-2024 End: 09-09-2024 Augmentin 875 mg-125 mg Tab 1 tab(s), Oral, BID for 7 day(s), 14 tab(s), Refill(s) 0, [facility], 172.7, cm, 09/01/24 0:36:00 EST, Height/Length Dosing, 80.2, kg, 09/01/24 0:36:00 EST, Weight Dosing Start Date: 09/02/24 Stop Date: 09/09/24 Status: Ordered Start: 09-26-2022 End: 10-01-2022 take 1 tablet by mouth twice daily amoxicillin-clavulanate (AUGMENTIN) 875-125 MG per tablet Take 1 tablet by mouth 2 times daily for 5 days 10 tablet 0 09/26/2022 09/30/2022 Discontinued (LIST CLEANUP) brompheniramine maleate 0.4 mg/ml / dextromethorphan hydrobromide 2 mg/ml / pseudoephedrine hydrochloride 6 mg/ml oral solution (1 source) alpha-Adrenergic Agonist, Uncompetitive J-mtkott-L-aspartate Receptor Antagonist, Sigma-1 Agonist Start: 09-08-2023 End: 09-15-2023 take 10 mL by mouth four times daily for cough and congestion Bromfed DM oral syrup 10 mL, Oral, QID for cough and congestion for 7 day(s), 280 mL, Refill(s) 0, [facility], 175, cm, 09/08/23 11:11:00 EST, Height/Length Dosing, 79.5, kg, 09/08/23 11:11:00 EST, Weight Dosing Start Date: 09/08/23 Stop Date: 09/15/23 Status: Ordered cephalexin 500 mg oral capsule (1 source) Cephalosporin Antibacterial Start: 07-25-2024 End: 07-30-2024 take 1 capsule by mouth three times daily Keflex 500 mg Cap 500 mg = 1 cap(s), Oral, TID, X 5 day(s), # 15 cap(s), Refills(s) 0, Pharmacy: [facility], 175, cm, 07/25/24 22:16:00 EST, Height/Length Dosing, 79.2, kg, 07/25/24 22:16:00 EST, Weight Dosing Start Date: 07/25/24 Stop Date: 07/30/24 Status: Ordered cetirizine hydrochloride 5 mg oral [...] Refill(s) 0 Start Date: 04/25/16 Status: Ordered magnesium oxide 400 mg oral tablet (19 sources) Start: 06-28-2024 End: 09-10-2024 take 1 tablet by mouth once daily magnesium oxide (Mag-Ox) 400 MG tablet Indications: 26 weeks gestation of Take 1 tablet (400 mg) by mouth Daily 30 tablet 6 08/11/2024 09/10/2024 Active metoclopramide 10 mg oral tablet (10 sources) Dopamine-2 Receptor Antagonist Start: 09-04-2022 End: 09-30-2022 take 1 tablet by mouth every six hours Reglan 10 mg Tab 10 mg = 1 tab(s), Oral, q6hr, # 14 tab(s), Refills(s) 0, Pharmacy: [facility], 173, cm, 09/08/22 1:24:00 EST, Height/Length Dosing, 72.1, kg, 09/08/22 1:24:00 EST, Weight Dosing Start Date: 09/08/22 Status: Ordered nutritional drink (Boost) liquid (3 sources) Start: 05-27-2024 End: 06-26-2024 nutritional drink [...] days 40 tablet 0 02/27/2022 03/09/2022 Active polysaccharide iron complex 391 mg oral capsule (20 sources) Start: 06-28-2024 End: 08-31-2025 take 1 capsule by mouth once daily iron polysaccharides (ProFe) 391.3 (180 Fe) MG capsule Indications: 35 weeks gestation of Take 1 capsule (391.3 mg) by mouth Daily 30 capsule 6 08/31/2024 08/31/2025 Active Vit-Fe Fumarate-FA ( VITAMINS PO) (4 sources) Vit-Fe Fumarate-FA ( VITAMINS PO) Take 2 gums by mouth daily 0 Active ProFe 180 mg oral capsule (1 source) Start: 09-01-2024 take 1 capsule by mouth once daily ProFe 180 mg oral capsule 180 mg = 1 cap(s), Oral, Daily, # 100 cap(s), Refills(s) 0 Start Date: 09/01/24 Status: Ordered promethazine hydrochloride 12.5 mg oral tablet (13 sources) Phenothiazine Start: 09-02-2022 End: 09-30-2022 take [...] Status: Ordered Zofran ODT 4 mg Tab-Dis (10 sources) Start: 07-25-2024 take 1 tablet by mouth every six hours Zofran ODT 4 mg Tab-Dis 4 mg = 1 tab(s), Oral, q6hr, # 12 tab(s), Refills(s) 0, Pharmacy: [facility], 175, cm, 07/25/24 22:16:00 EST, Height/Length Dosing, 79.2, kg, 07/25/24 22:16:00 EST, Weight Dosing Start Date: 07/25/24 Status: Ordered Start: 08-29-2022 take 1 tablet by fernando th every [...] supporting structures] Episodic Fluid and electrolyte disorders (3 sources) Dehydration; Translations: [Dehydration] Onset: 09-01-2024 Episodic Headache; including migraine (2 sources) Headache; Translations: [Headache, unspecified] Onset: 06-05-2023 Episodic Menstrual disorders (8 sources) Irregular menstruation, unspecified; Translations: [Excessive and frequent menstruation with irregular cycle] Onset: 02-15-2022 Chronic Nutritional deficiencies (2 sources) Serum iron low; Translations: [Iron deficiency] 08-11-2024 Episodic Other complications of (1 source) Morning [...] conditions, first trimester] Onset: 02-01-2024 Episodic Other complications of (2 sources) size does not accord with dates; Translations: [Uterine size-date discrepancy, unspecified trimester] 07-12-2024 Episodic Other complications of (3 sources) Diseases of the respiratory system complicating , third trimester; Translations: [O99.513] Onset: 09-01-2024 Episodic Other female genital disorders (1 source) Other specified noninflammatory disorders of vagina; Translations: [OTH SPEC NONINFLAMMATORY D/O VAGINA] Onset: 11-15-2022 Episodic Other nutritional; endocrine; and metabolic disorders (2 sources) Decrease in appetite; Translations: [Anorexia] 05-27-2024 Episodic Other and delivery including normal (20 sources) Normal ; Translations: [Encounter for supervision of normal , unspecified, unspecified trimester] Onset: 08-29-2022 Episodic Other screening for suspected conditions (not mental disorders or infectious disease) (20 sources) test negative; Translations: [Encounter for test, result negative] Onset: 11-07-2022 Episodic Pneumonia (except that caused by tuberculosis or sexually transmitted disease) (8 sources) Pneumonia; Translations: [Pneumonia, unspecified organism] Onset: 09-01-2024 Episodic Residual codes; unclassified (1 source) 10 weeks gestation of ; Translations: [10 WEEKS GESTATION OF ] Onset: 09-25-2022 Episodic Residual codes; unclassified (2 sources) Gestation period, 22 weeks; Translations: [22 weeks gestation of ] 05-27-2024 Episodic Residual codes; unclassified (4 sources) Gestation period, 26 weeks; Translations: [26 weeks gestation of ] 06-28-2024 Episodic Residual codes; unclassified (2 sources) Gestation period, 28 weeks; Translations: [28 weeks gestation of ] 07-12-2024 Episodic Residual codes; unclassified (2 sources) Gestation period, 30 weeks; Translations: [30 weeks gestation of ] 07-28-2024 Episodic Residual codes; unclassified (2 sources) Gestation period, 33 weeks; Translations: [33 weeks gestation of ] 08-11-2024 Episodic Residual codes; unclassified (2 sources) Gestation period, 35 weeks; Translations: [35 weeks gestation of ] 08-31-2024 Episodic Residual codes; unclassified (2 sources) Gestation period, 36 weeks; Translations: [36 weeks gestation of ] 09-07-2024 Episodic Residual codes; unclassified (2 sources) Gestation period, 38 weeks; Translations: [38 weeks gestation of ] 09-15-2024 Episodic Residual codes; unclassified (2 sources) Gestation period, 39 weeks; Translations: [39 weeks gestation of ] 09-22-2024 Episodic Skin and subcutaneous tissue infections (1 source) Cellulitis of right upper limb; Translations: [Cellulitis of right upper limb] Episodic Spontaneous (1 source) Complete or unspecified spontaneous without complication; Translations: [Complete or unspecified spontaneous without complication] Onset: 11-13-2023 Episodic Unclassified (1 source) Other specified diseases and conditions complicating ; Translations: [Other specified diseases and conditions complicating ] Onset: 03-23-2023 Urinary tract infections (2 sources) Urinary tract infection, site not specified; Translations: [Urinary tract infectious disease] Onset: 12-14-2023 Episodic Past or Other Problems Problem Classification Problem Date Documented Date Episodic/Chronic Abdominal pain (20 sources) Finding of sensation of abdomen; Translations: [Unspecified abdominal pain] Onset: 07-12-2022 Episodic Genitourinary symptoms and ill-defined conditions (1 source) Bacteriuria; Translations: [Bacteriuria] Onset: 03-23-2023 Episodic Hemorrhoids (1 source) Residual hemorrhoidal skin tags; Translations: [Residual hemorrhoidal skin tags] Onset: 04-05-2023 Episodic Immunizations and screening for infectious disease (4 sources) Encounter for screening for human papillomavirus (HPV); Translations: [Contact with and (suspected) exposure to infections with a predominantly sexual mode of transmission] Onset: 11-15-2022 04-29-2024 Episodic Nausea and vomiting (20 sources) Nausea and vomiting; Translations: [Nausea with vomiting, unspecified] Onset: 08-29-2022 Episodic Other complications of (20 sources) Disorder of ; Translations: [Other specified related conditions, unspecified trimester] Onset: 03-10-2023 03-10-2023 Episodic Other female genital disorders (2 sources) Vaginal discharge; Translations: [Other specified noninflammatory disorders of vagina] 04-29-2024 Episodic Other infections (1 source) Enterobiasis; Translations: [Enterobiasis] Onset: 06-02-2017 Episodic Residual codes; unclassified (2 sources) Gestation period, 18 weeks; Translations: [18 weeks gestation of ] 04-29-2024 Episodic Unclassified (7 sources) Onset: 11-25-2022 Resolved: 06-25-2023 11-25-2022 Results Test Name Value Interpretation Reference Range Facility Urinalysis macro (dipstick) panel (U)on 09-22-2024 Bilirubin, UA Negative Negative - 4(70) +++ mg/dL [facility] Blood, UA Negative Negative - 50 Jorge/mcL [facility] Clarity, UA Clear [facility] Color, UA Yellow [facility] Glucose, UA Negative Negative - 2000(110) ++++ mg/dL [facility] Interpretation and review of laboratory results Abnormal [facility] Ketones, UA Negative Negative - 160(16) ++++ mg/dL [facility] Leukocytes, UA Trace Negative - 500+++ Jose/mcL [facility] Nitrite, UA Negative Negative - Positive [facility] pH, UA 6 5 - 9 [facility] Protein, UA Negative Negative - 2000(20) ++++ mg/dL [facility] Spec Grav, UA 1.015 1 - 1.03 [facility] Urobilinogen, UA 0.2 0.2 - 12 mg/dL [facility] Urinalysis macro (dipstick) panel (U)on 09-07-2024 Bilirubin, UA Negative Negative - 4(70) +++ mg/dL [facility] Blood, UA Positive Negative - 50 Jorge/mcL [facility] Comment on above: trace Clarity, UA Clear [facility] Color, UA Yellow [facility] Glucose, UA Negative Negative - 2000(110) ++++ mg/dL [facility] Interpretation and review of laboratory results Abnormal [facility] Ketones, UA Negative Negative - 160(16) ++++ mg/dL [facility] Leukocytes, UA Negative Negative - 500+++ Jose/mcL [facility] Nitrite, UA Negative Negative - Positive [facility] pH, UA 7 5 - 9 [facility] Protein, UA Negative Negative - 2000(20) ++++ mg/dL [facility] Spec Grav, UA 1.02 1 - 1.03 [facility] Urobilinogen, UA 0.2 0.2 - 12 mg/dL [facility] Healthcare [facility] BOX TESTon 09-04-2024 BOX TEST RESULT SEE SCANNED REPORT N [facility] BOX TEST SENT OUT GROUP B CULTURE NO [facility] BOX1 [facility] [address] 08/31/24 [facility] GROUP B [facility] C Sputumon 09-03-2024 Bacteria identified Respiratory culture Nom (Sput) Microbiology PROCEDURE: Sputum Culture [R1] SOURCE: Sputum BODY SITE: COLLECTED DATE/TIME: 09/01/2024 05:40 EST RECEIVED DATE/TIME: 09/01/2024 08:13 EST START DATE/TIME: 09/01/2024 08:13 EST FREE TEXT SOURCE: Norberto BARONE, Camille Thornton MD, Camille FINAL REPORTS Final Report [] Verified Date/Time: 09/03/2024 11:48 EST 1+ Normal upper respiratory taye isolated STAINS Gram Stain Report [] Verified Date/Time: 09/01/2024 13:50 EST Occasional White Blood Cells Occasional Gram Positive Cocci Performing Locations R1: This test was performed at: [facility], [address] [place] [address], [address] , , [facility] Comment on above: Performed By: #### 2 [id number] #### [facility] [address] [place] [address] [employer] Message Officeon [employer] Message Office General Message Office --- --- --- --- --- --- --- --- --- From: [employer] To: ROQUE PIERSON Sent: 09/03/24 02:30:31 AM EST Subject: Discharge Summary Ready to View A summary regarding your recent visit is available in the Documents section of your health record. Normal [facility] Respiratory Panel by PCRon 0 09-03-2024 Adenovirus DNA CATRINA+non-probe Ql (Nph) Not detected Normal [facility] Comment on above: Result Comment: Test ing was performed using nucleic acid amplification including Influenza A, Influenza A H1, Influenza A H3, Influenza B, RSV A, RSV B, Adenovirus, Human Metapneumovirus, Parainfluenza 1,2,3, and 4, Rhinovirus, Bordetella parapertussis/bronchiseptica, Bordetella holmesii, and Bordetella pertussis. Performed By: #### 1 [id number] #### [facility] [address] [place] [address] B. parapertussis DNA CATRINA+probe Ql (Upper resp) Not detected Normal Not Detected [facility] Comment on above: Performed By: #### 1 [id number] #### [facility] [address] [place] [address] B. pertussis DNA CATRINA+probe Ql (Upper resp) Not detected Normal Not Detected [facility] Comment on above: Performed By: #### 1 [id number] #### [facility] [address] [place] [address] FLUAV H1 RNA CATRINA+non-probe Ql (Nph) Not detected Normal [facility] Comment on above: Performed By: #### 1 [id number] #### [facility] [address] [place] [address] FLUAV H3 RNA CATRINA+non-probe Ql (Nph) Not detected Normal [facility] Comment on above: Performed By: #### 1 [id number] #### [facility] [address] [place] [address] FLUAV RNA CATRINA+non-probe Ql (Nph) Not detected Normal [facility] Comment on above: Performed By: #### 1 [id number] #### [facility] [address] [place] [address] FLUBV RNA CATRINA+non-probe Ql (Nph) Not detected Normal [facility] Comment on above: Performed By: #### 1 [id number] #### [facility] [address] [place] [address] Human Metapneumovirus Not detected Normal [facility] Comment on above: Result Comment: This test result should be correlated with clinical presentations and medical history by a healthcare provider to determine its clinical significance. Performed By: #### 1 [id number] #### [facility] [address] [place] [address] Parainfluenza virus 1 RNA CATRINA+non-probe Ql (Nph) Not detected Normal [facility] Comment on above: Performed By: #### 1 [id number] #### [facility] [address] [place] [address] Parainfluenza virus 2 RNA CATRINA+non-probe Ql (Nph) Not detected Normal [facility] Comment on above: Performed By: #### 1 [id number] #### [facility] [address] [place] [address] Parainfluenza virus 3 RNA CATRINA+non-probe Ql (Nph) Not detected Normal [facility] Comment on above: Performed By: #### 1 [id number] #### [facility] [address] [place] [address] Parainfluenza virus 4 RNA CATRINA+non-probe Ql (Nph) Not detected Normal [facility] Comment on above: Performed By: #### 1 [id number] #### [facility] [address] [place] [address] Resp Panel Intrl QC Pass Normal [facility] Comment on above: Performed By: #### 1 [id number] #### [facility] [address] [place] [address] Rhinovirus+Enterovirus RNA CATRINA+non-probe Ql (Nph) Not detected Normal [facility] Comment on above: Performed By: #### 1 [id number] #### [facility] [address] [place] [address] RSV RNA CATRINA+non-probe Ql (Nph) Not detected Normal [facility] Comment on above: Performed By: #### 1 [id number] #### [facility] [address] [place] [address] Strep pneumo Ag, Uron 2024 Bacteria Identification Cx Ql (Isol) Not indicated. Invalid Interpretation Code [facility] Comment on above: Performed By: #### 4 [id number] #### [facility] [address] [place] [address] Bacteria identified Sterile body fluid culture Nom (Unsp spec) Not indicated. Invalid Interpretation Code [facility] Comment on above: Performed By: #### 4 [id number] #### [facility] [address] [place] [address] Note Bact Ag Cult Comment Invalid Interpretation Code [facility] Comment on above: Result Comment: Ian ege of [employer] standards require a culture to be performed on CSF specimens submitted for bacterial antigen testing. (CAP CHASE.[id number]) Urine specimens will not be cultured. Performed at: [address] [id number] MD Colton Espana Performed By: #### 4 [id number] #### [facility] [address] [place] [id number] S. pneumoniae Ag Ql (Unsp spec) Negative Invalid Interpretation Code Negative [facility] Comment on above: Performed By: #### 4 [id number] #### [facility] [address] [place] [id number] Specimen source Nom (Unsp spec) Urine Invalid Interpretation Code [facility] Comment on above: Performed By: #### 4 [id number] #### [facility] [address] [place] [address] U Legi Agon 09-03-2024 L. pneumophila 1 Ag IA Ql (U) Negative Invalid Interpretation Code Negative [facility] Comment on above: Result Comment: Pres umptive negative for L. pneumophila serogroup 1 antigen in urine, suggesting no recent or current infection. Legionnaires' disease cannot be ruled out since other serogroups and species may also cause disease. Performed at: [facility] [address] [place], [place] [id number] MD Colton Espana Performed By: #### 2 [id number] #### [facility] [address] [place] [address] BMPon 09-02-2024 Anion gap [Moles/Vol] 9 mmol/L Normal 6-16 [facility] Comment on above: Performed By: #### 2 [id number] #### [facility] [address] [place] [address] Calcium [Mass/Vol] 7.8 mg/dL Low 8.9-11.1 [facility] Comment on above: Performed By: #### 2 [id number] #### [facility] [address] [place] [address] Chloride [Moles/Vol] 115 mmol/L High 101-111 [facility] Comment on above: Performed By: #### 2 [id number] #### [facility] [address] [place] [address] CO2 [Moles/Vol] 20 mmol/L Low 21-31 [facility] Comment on above: Performed By: #### 2 [id number] #### [facility] [address] [place] [address] Creatinine [Mass/Vol] 0.4 mg/dL Low 0.5-1.3 [facility] Comment on above: Performed By: #### 2 [id number] #### [facility] [address] [place] [address] Glucose [Mass/Vol] 83 mg/dL Normal 55-199 [facility] Comment on above: Performed By: #### 2 [id number] #### [facility] [address] [place] [address] Potassium [Moles/Vol] 3.2 mmol/L Low 3.5-5.3 [facility] Comment on above: Performed By: #### 2 [id number] #### [facility] [address] [place] [address] Sodium [Moles/Vol] 141 mmol/L Normal 135-145 [facility] Comment on above: Performed By: #### 2 [id number] #### [facility] [address] [place] [address] Urea nitrogen [Mass/Vol] 5 mg/dL Normal 5-21 [facility] Comment on above: Performed By: #### 2 [id number] #### [facility] [address] [place] [address] Urea nitrogen/Creatinine [Mass ratio] 12 No Units Normal 10-20 [facility] Comment on above: Performed By: #### 2 [id number] #### [facility] [address] [place] [address] CBC w/ Auto Diffon 5 Basophils/100 WBC (Bld) 0.4 % Normal 0.0-2.0 [facility] Comment on above: Performed By: #### 2 [id number] #### [facility] [address] [place] [address] Basophils/Leukocytes Auto (Bld) [Pure # fraction] 0.1 E9/L Normal 0.0-0.2 [facility] Comment on above: Performed By: #### 2 [id number] #### [facility] [address] [place] [address] Eosinophils (Bld) [#/Vol] 0.3 E9/L Normal 0.0-0.5 [facility] Comment on above: Performed By: #### 2 [id number] #### [facility] [address] [place] [address] Eosinophils/100 WBC (Bld) 2.5 % Normal 0.0-8.0 [facility] Comment on above: Performed By: #### 2 [id number] #### [facility] [address] [place] [address] Erythrocyte distribution width (RBC) [Ratio] 14.0 % Normal 10.9-14.2 [facility] Comment on above: Performed By: #### 2 [id number] #### [facility] [address] [place] [address] Hematocrit (Bld) [Volume fraction] 24.5 % Low 34.0-46.0 [facility] Comment on above: Performed By: #### 2 [id number] #### [facility] [address] [place] [address] Hemoglobin (Bld) [Mass/Vol] 8.2 g/dL Low 12.0-16.0 [facility] Comment on above: Performed By: #### 2 [id number] #### [facility] [address] [place] [address] Lymphocytes (Bld) [#/Vol] 1.6 E9/L Normal 1.0-4.0 [facility] Comment on above: Performed By: #### 2 [id number] #### [facility] [address] [place] [address] Lymphocytes/100 WBC (Bld) 12.8 % Low 14.0-50.0 [facility] Comment on above: Performed By: #### 2 [id number] #### [facility] [address] [place] [address] MCH (RBC) [Entitic mass] 26.6 pg Low 27.0-34.0 [facility] Comment on above: Performed By: #### 2 [id number] #### [facility] [address] [place] [address] MCHC (RBC) [Mass/Vol] 33.4 g/dL Normal 31.4-36.0 [facility] Comment on above: Performed By: #### 2 [id number] #### [facility] [address] [place] [address] MCV (RBC) [Entitic vol] 79.6 fL Low 80.0-100.0 [facility] Comment on above: Performed By: #### 2 [id number] #### [facility] [address] [place] [address] Monocytes (Bld) [#/Vol] 0.6 E9/L Normal 0.2-1.0 F [facility] Comment on above: Performed By: #### 2 [id number] #### [facility] [address] [place] [address] Neutrophils (Bld) [#/Vol] 10.0 E9/L High 2.0-7.5 [facility] Comment on above: Performed By: #### 2 [id number] #### [facility] [address] [place] [address] Neutrophils/100 WBC (Bld) 79.2 % High 36.0-75.0 [facility] Comment on above: Performed By: #### 2 [id number] #### [facility] [address] [place] [address] Platelet mean volume (Bld) [Entitic vol] 8.0 fL Normal 6.4-10.8 [facility] Comment on above: Performed By: #### 2 [id number] #### [facility] [address] [place] [address] Platelets (Bld) [#/Vol] 200.0 E9/L Normal 150.0-500.0 [facility] Comment on above: Performed By: #### 2 [id number] #### [facility] [address] [place] [address] RBC (Bld) [#/Vol] 3.1 E12/L Low 4.3-5.9 [facility] Comment on above: Performed By: #### 2 [id number] #### [facility] [address] [place] [address] WBC corrected for nucl RBC Auto (Bld) [#/Vol] 12.7 E9/L High 4.0-11.0 [facility] Comment on above: Performed By: #### 2 [id number] #### [facility] [address] [place] [address] CHEMISTRYOrdered By: SYSTEM SYSTEM on 09-02-2024 Anion gap [Moles/Vol] 9 mmol/L Normal 6 - 16 mEq/L R emisol Chem Calcium [Mass/Vol] 7.8 mg/dL Low 8.9 - 11. 1 mg/dL [facility] Chloride [Moles/Vol] 115 mmol/L High 101 - 1 11 mmol/L [facility] CO2 [Moles/Vol] 20 mmol/L Low 21 - 31 mmol/L [facility] Creatinine [Mass/Vol] 0.4 mg/dL Low 0.5 - 1.3 mg/dL [facility] eGFR 142 mL/min/1.73 m2 Normal >=59mL/mi n/1 .73 m2 [facility] Glucose [Mass/Vol] 83 mg/dL Normal 55 - 199 mg/dL [facility] Potassium [Moles/Vol] 3.2 mmol/L Low 3.5 - 5.3 mmol/L [facility] Sodium [Moles/Vol] 141 mmol/L Normal 135 - 145 mmol/L [facility] Urea nitrogen [Mass/Vol] 5 mg/dL Normal 5 - 21 mg/d L [facility] Urea nitrogen/Creatinine [Mass ratio] 12 mg/mg Normal 10 - 20 [facility] Discharge Note-Nursingon Discharge Note-Nursing Discharge Note-Nursing ROQUE PIERSON :2000 Visit Date:09/01/2024 Inpatient Discharge Instructions Your Care Team Admitting Physician - Camille Thornton MD Consulting Physician - Anne Villagran DO Reason for Your Visit Cough and fever Your Diagnosis CAP (community acquired pneumonia), Pneumonia Dehydration woman Cough Headache Shortness of breath Tests Performed Respiratory Panel by PCR -- Results Pending -- Streptococcus pneumoniae Ag, Urine -- Results Pending -- Urine Legionella Antigen -- Results Pending -- Chest AP/Lat CTA Chest Please visit your patient portal for your results or contact your primary care physician. This Is Your Medications List amoxicillin-clavulan ate (Augmentin 875 mg-125 mg Tab) iron polysaccharide (ProFe 180 mg oral capsule) metoclopramide (Reglan 10 mg Tab) ondansetron (Zofran ODT 4 mg Tab-Dis) ondansetron (Zofran ODT 4 mg Tab-Dis) promethazine (promethazine 12.5 mg oral tablet) Procedure History None. Discharge Vitals Temperature (Oral) 36.5 ???C Heart Rate (Monitored) 60 Respiratory Rate 16 Blood Pressure 99/64 Weight 81.4 kg What to do next Instructions From Your Doctor Event Name Event Result Discharge Activity Ambulate as tolerated Discharge Restrictions No restrictions Discharge Diet(s) Regular New Follow Up Appointments after Discharge Follow Up with Per patient request would like to make own hospital follow up appoinment(s). When: Follow Up with Ambrose Urbano When: Where: [facility] [place] [address] Business (1) Medications What How Much When Instructions Next Dose New amoxicillin-clavulan ate (Augmentin 875 mg-125 mg Tab) 1 Tablets By Mouth 2 times a day Duration: 7 Days Pickup at [facility] 9pm Unchanged iron polysaccharide (ProFe 180 mg oral capsule) 1 Capsules By Mouth Every day 09/03 Unchanged metoclopramide (Reglan 10 mg Tab) 1 Tablets By Mouth Every 6 hours Resume as needed Unchanged ondansetron (Zofran ODT 4 mg Tab-Dis) 1 Tablets By Mouth Every 6 hours as needed for Nausea/Vomiting Resume as needed Unchanged promethazine (promethazine 12.5 mg oral tablet) 1 Tablets By Mouth Every 8 hours as needed for as needed for nausea/vomiting resume as needed Pharmacy Information [facility]: [address], [place] [id number] [phone] Test Results CBC BMP WBC: 12.7 E9/L High (09/02/24 05:49:00) Glucose Lvl: 83 mg/dL (09/02/24 05:49:00) RBC: 3.1 E12/L Low (09/02/24 05:49:00) BUN: 5 mg/dL (09/02/24 05:49:00) HGB: 8.2 gm/dL Low (09/02/24 05:49:00) Creatinine: 0.4 mg/dL Low (09/02/24 05:49:00) Hct: 24.5 % Low (09/02/24 05:49:00) BUN/Creat Ratio: 12 (09/02/24 05:49:00) MCV: 79.6 fL Low (09/02/24 05:49:00) Sodium Lvl: 141 mmol/L (09/02/24 05:49:00) MCH: 26.6 pg Low (09/02/24 05:49:00) Potassium Lvl: 3.2 mmol/L Low (09/02/24:49:00) MCHC: 33.4 gm/dL (09/02/24:49:00) Chloride: 115 mmol/L High (09/02/24:49:00) RDW: 14 % (09/02/24:49:) CO2: 20 mmol/L Low (09/02/24:49:00) Platelet: 200 E9/L (09/02/24:49:00) AGAP: 9 mEq/L (09/02/24:49:) MPV: 8 fL (09/02/24:49:00) Calcium Lvl: 7.8 mg/dL Low (09/02/24:49:00) Allergies No Known Allergies Problems Historical - Any problem that you are no longer receiving treatment for. None Education Materials Dehydration, Adult Dehydration is a condition in which there is not enough water or other fluids in the body. This happens when a person loses more fluids than they take in. Important organs, such as the kidneys, brain, and heart, cannot function without a proper amount of fluids. Any loss of fluids from the body can lead to dehydration. Dehydration can be mild, moderate, or severe. It should be treated right away to prevent it from becoming severe. What are the causes? Dehydration may be caused by: ??? Health conditions, such as diarrhea, vomiting, fever, infection, or sweating or urinating a lot. ??? Not drinking enough fluids. ??? Certain medicines, such as medicines that remove excess fluid from the body (diuretics). ??? Lack of safe drinking water. ??? Not being able to get enough water and food. What increases the risk? The following factors may make you more likely to develop this condition: ??? Having a long-term (chronic) illness that has not been treated properly, such as diabetes, heart disease, or kidney disease. ??? Being 65 years of age or older. ??? Having a disability. ??? Living in a place that is high in altitude, where thinner, package drier air causes more fluid loss. ??? Doing exercises that put stress on your body for a long time (endurance sports). ??? Being active in a hot climate. What are the signs or symptoms? Symptoms of dehydration depend on how severe it is. Mild or moderate dehydration (more content not included)... Normal [facility] HEMATOLOGYOrdered By: SYSTEM SYSTEM on 09-02-2024 Basophils/100 WBC (Bld) 0.4 % Normal 0.0 - 2.0 % [facility] Basophils/Leukocytes Auto (Bld) [Pure # fraction] 0.1 E9/L Normal 0.0 - 0.2 E9/L [facility] Eosinophils (Bld) [#/Vol] 0.3 E9/L Normal 0.0 - 0.5 E9/L [facility] Eosinophils/100 WBC (Bld) 2.5 % Normal 0.0 - 8.0 % [facility] Erythrocyte distribution width (RBC) [Ratio] 14.0 % Normal 10.9 - 14.2 % [facility] Hematocrit (Bld) [Volume fraction] 24.5 % Low 34.0 - 46.0 % [facility] Hemoglobin (Bld) [Mass/Vol] 8.2 g/dL Low 12.0 - 16.0 gm/dL [facility] Lymphocytes (Bld) [#/Vol] 1.6 E9/L Normal 1.0 - 4.0 E9/L [facility] Lymphocytes/100 WBC (Bld) 12.8 % Low 14.0 - 50.0 % [facility] MCH (RBC) [Entitic mass] 26.6 pg Low 27. 0 - 34.0 pg [facility] MCHC (RBC) [Mass/Vol] 33.4 g/dL Normal 31.4 - 36.0 gm/dL [facility] MCV (RBC) [Entitic vol] 79.6 fL Low 80.0 - 100.0 fL [facility] Monocytes (Bld) [#/Vol] 0.6 E9/L Normal 0.2 - 1.0 E9/L [facility] Monocytes/100 WBC (Bld) 5.1 % Normal 4.0 - 14.0 % [facility] Neutrophils (Bld) [#/Vol] 10.0 E9/L High 2.0 - 7.5 E9/L [facility] Neutrophils/100 WBC (Bld) 79.2 % High 36.0 - 75.0 % [facility] Platelet mean volume (Bld) [Entitic vol] 8.0 fL Normal 6.4 - 10.8 fL [facility] Platelets (Bld) [#/Vol] 200.0 E9/L Normal 150. 0 - 500.0 E9/L [facility] RBC (Bld) [#/Vol] 3.1 E12/L Low 4.3 - 5.9 E12/L [facility] WBC corrected for nucl RBC Auto (Bld) [#/Vol] 12.7 E9/L High 4.0 - 11.0 E9/L [facility] Inpatient Clinical Summaryon 09-02-2024 Inpatient Clinical Summary Inpatient Clinical Summary [address] [address] Clinical Summary Person Information: Name: ROQUE PIERSON Age: 24 Years : 2000 Sex: Female PCP: Ambrose Urbano MD Marital Status: Race: White Ethnicity: Non- or Language: Bahraini Visit Id: Visit Reason: Headache; Cough; Shortness of breath; HEADACHE FEVER NAUSEA DIFFICULTY BREATHING/37 WKS PREG Speciality: Acuity: Enc Type: Inpatient Med Service: Medical Arrival: 09/01/2024 00:18:15 Discharge: Dispo Type: Admitted as IP to this Hosp Address: [address] [place] [id number] Provider Notes: Diagnosis: 1:CAP (community acquired pneumonia); 2:Dehydration; 3: woman Problems No Problems Documented Smoking Status: Former Smoker Functional Status: Sensory Deficits: History of Falls: Mobility Assistance Prior to Admission: Independent ADLs: Independent Current Level of Assistance for Self-Care/Mobility: Cognitive Status: Oriented x 3 Allergies No Known Allergies Measurements: Height: 172.72 cm Weight: 81.4 kg Blood Pressure: 99 mmHg / 64 mmHg BMI: 26.85 kg/m2 Procedures No Procedures Documented Immunizations No Immunizations Documented This Visit Final Med List: amoxicillin-clavulan ate (Augmentin 875 mg-125 mg Tab) 1 Tablets By Mouth 2 times a day for 7 Days. Refills: 0. iron polysaccharide (ProFe 180 mg oral capsule) 1 Capsules By Mouth every day. metoclopramide (Reglan 10 mg Tab) 1 Tablets By Mouth every 6 hours. Refills: 0. ondansetron (Zofran ODT 4 mg Tab-Dis) 1 Tablets By Mouth every 6 hours as needed Nausea/Vomiting. Refills: 0. ondansetron (Zofran ODT 4 mg Tab-Dis) 1 Tablets By Mouth every 6 hours. Refills: 0. promethazine (promethazine 12.5 mg oral tablet) 1 Tablets By Mouth every 8 hours as needed as needed for nausea/vomiting. Refills: 0. Care Team Members: Attending Physician: Camille Thornton MD Consulting Physician: Anne Villagran DO Referring Physician: Follow up: With: Address: When: Per patient request would like to make own hospital follow up appoinment(s). With: Address: When: Ambrose Urbano [address] [place], [place] [phone] Business (1) Patient Education Information: Dehydration, Adult; Community-Acquired Pneumonia, Adult Normal [facility] Inpatient Patient Summaryon 09-02-2024 Inpatient Patient Summary Inpatient Patient Summary [address] [address] Patient Discharge Instructions PERSON INFORMATION Name: ROQUE PIERSON Date of : 2000 Current Date: 09/02/2024 11:29:06 PHYSICIANS Admitting Physician: Camille Thornton MD Primary Care Physician: Ambrose Urbano MD PCP Comment: Discharge Diagnosis: 1:CAP (community acquired pneumonia); 2:Dehydration; 3: woman Condition at Discharge: Stable ROQUE PIERSON has been given the following list of follow-up instructions, prescriptions, and patient education materials: PATIENT FOLLOW-UP INFORMATION Diet: Regular Discharge Activity: Ambulate as tolerated Discharge Restrictions: No restrictions Wound Care Instructions: Remove Your Dressing In Days Call Your Doctor For: IF UNABLE TO CONTACT YOUR PHYSICIAN AND YOU FEEL IT IS AN EMERGENCY, GO TO THE NEAREST EMERGENCY ROOM OR CALL 911 Home Treatment: Devices/Equipment: Nebulizer Special Services: Additional Instructions: Primary Care Physician to provide the following pending test results: Follow up: With: Address: When: Per patient request would like to make own hospital follow up appoinment(s). With: Address: When: Ambrose Urbano [address] [place] [address], [place] [address] Business (1) In the event that this physician does not participate in your insurance network, please consult with your insurance company to find a nearby participating provider. Comment: DANGELO Bhandari SABRINA M, have received the attached patient education materials/instructio ns and have verbalized understanding: Patient Signature Date Clinican/Nurse Signature Date HERE ARE THE MEDICATION CHANGES THAT OCCURRED DURING YOUR HOSPITAL STAY New Medications [facility], [address], [place] [id number], [phone] amoxicillin-clavulan ate (Augmentin 875 mg-125 mg Tab) 1 Tablets By Mouth 2 times a day for 7 Days. Refills: 0. Last Dose: Next Dose: Medications to Continue with No Changes Other Medications iron polysaccharide (ProFe 180 mg oral capsule) 1 Capsules By Mouth every day. Last Dose: Next Dose: metoclopramide (Reglan 10 mg Tab) 1 Tablets By Mouth every 6 hours. Refills: 0. Last Dose: Next Dose: ondansetron (Zofran ODT 4 mg Tab-Dis) 1 Tablets By Mouth every 6 hours as needed Nausea/Vomiting. Refills: 0. Last Dose: Next Dose: ondansetron (Zofran ODT 4 mg Tab-Dis) 1 Tablets By Mouth every 6 hours. Refills: 0. Last Dose: Next Dose: promethazine (promethazine 12.5 mg oral tablet) 1 Tablets By Mouth every 8 hours as needed as needed for nausea/vomiting. Refills: 0. Last Dose: Next Dose: Comment: MEDICATION LIST PROVIDED FOR YOU IS A LIST OF YOUR CURRENT MEDICATIONS. PLEASE CARRY THIS WITH YOU AT ALL TIMES. amoxicillin-clavulan ate (Augmentin 875 mg-125 mg Tab) 1 Tablets By Mouth 2 times a day for 7 Days. Refills: 0. iron polysaccharide (ProFe 180 mg oral capsule) 1 Capsules By Mouth every day. metoclopramide (Reglan 10 mg Tab) 1 Tablets By Mouth every 6 hours. Refills: 0. ondansetron (Zofran ODT 4 mg Tab-Dis) 1 Tablets By Mouth every 6 hours as needed Nausea/Vomiting. Refills: 0. ondansetron (Zofran ODT 4 mg Tab-Dis) 1 Tablets By Mouth every 6 hours. Refills: 0. promethazine (promethazine 12.5 mg oral tablet) 1 Tablets By Mouth every 8 hours as needed as needed for nausea/vomiting. Refills: 0. Pharmacy Information: [facility] Comment: PATIENT EDUCATION INFORMATION Instructions: Dehydration, Adult Dehydration is a condition in which there is not enough water or other fluids in the body. This happens when a person loses more fluids than they take in. Important organs, such as the kidneys, brain, and heart, cannot function without a proper amount of fluids. Any loss of fluids from the body can lead to dehydration. Dehydration can be mild, moderate, or severe. It should be treated right away to prevent it from becoming severe. What are the causes? Dehydration may be caused by: ??? Health conditions, such as diarrhea, vomiting, fever, infection, or sweating or urinating a lot. ??? Not drinking enough fluids. ??? Certain medicines, such as medicines that remove excess fluid from the body (diuretics). ??? Lack of safe drinking water. ??? Not being able to get enough water and food. What increases the risk? The following factors may make you more likely to develop this condition: ??? Having a long-term (chronic) illness that h (more content not included)... [facility] Interdisciplinary Note - Paulo e Manageron 09-02-2024 Interdisciplinary Note - Title Curator Interdisciplinary Note - Title Curator CRM to room 319 Patient is awake, alert and oriented. Patient is from home. Patient verified PCP, DME and insurance. Patient is an inpatient stay. Her Spouse or family will transport at [place]. Patient came in with JAVIER, fever and Nausea. She was found to have PNA. Patient is 37 weeks . Her SW consult need was in error, see SW note. Patient is assigned to Dr Miranda, see notes. Patient is on RA today. Patient declined any concerns to return home at [place] and declined needs for DME, HH or Paramed. Patient was provided CRM contact, white board updated. She would like to DC home today since she is feeling better CRM will get updates from DR Miranda at 10 AM Patient DC today [facility] Comment on above: Result Comment: Elec tronically Signed By: Angelina Spencer\.br\Date and Time Signed: 09/02/24 12:10 EST OB Assessmentson 09-02-2024 OB Assessments OB Assessments Patient: ROQUE PIERSON Age: 24 years Sex: Female : 2000 Associated Diagnoses: None Author: Juan COX, Manasa Middleton Progress Note 09/02/2024 at 0735 heart tones were in the 150's. Abdomen soft to palpation. Audible movements, patient feeling baby moving. Normal [facility] eGFRon 09-02-2024 eGFR 142 mL/min/1.73 m2 Normal >=59 [facility] Comment on above: Performed By: #### 1 [id number] #### [facility] [address] [place] [address] BMPon 09-01-2024 Anion gap [Moles/Vol] 14 mmol/L Normal 6-16 [facility] Comment on above: Performed By: #### 2 [id number] #### [facility] [address] [place] [address] Calcium [Mass/Vol] 8.5 mg/dL Low 8.9-11.1 [facility] Comment on above: Performed By: #### 2 [id number] #### [facility] [address] [place] [address] Chloride [Moles/Vol] 102 mmol/L Normal 101-111 [facility] Comment on above: Performed By: #### 2 [id number] #### [facility] [address] [place] [address] CO2 [Moles/Vol] 19 mmol/L Low 21-31 [facility] Comment on above: Performed By: #### 2 [id number] #### [facility] [address] [place] [address] Creatinine [Mass/Vol] 0.6 mg/dL Normal 0.5-1.3 [facility] Comment on above: Performed By: #### 2 [id number] #### [facility] [address] [place] [address] Glucose [Mass/Vol] 108 mg/dL Normal 55-199 [facility] Comment on above: Performed By: #### 2 [id number] #### [facility] [address] [place] [address] Potassium [Moles/Vol] 3.2 mmol/L Low 3.5-5.3 [facility] Comment on above: Performed By: #### 2 [id number] #### [facility] [address] [place] [address] Sodium [Moles/Vol] 132 mmol/L Low 135-145 [facility] Comment on above: Performed By: #### 2 [id number] #### [facility] [address] [place] [address] Urea nitrogen [Mass/Vol] 5 mg/dL Normal 5-21 [facility] Comment on above: Performed By: #### 2 [id number] #### [facility] [address] [place] [address] Urea nitrogen/Creatinine [Mass ratio] 8 No Units Low 10-20 [facility] Comment on above: Performed By: #### 2 [id number] #### [facility] [address] [place] [address] BNPon 09-01-2024 Int Ctr BNP Pass Normal [facility] Comment on above: Performed By: #### 1 [id number] #### [facility] [address] [place] [address] Natriuretic peptide B (Bld) [Mass/Vol] 36 pg/mL Normal 5-80 [facility] Comment on above: Performed By: #### 1 [id number] #### [facility] [address] [place] [address] CBC w/ Auto Diffon 5 Basophils/100 WBC (Bld) 0.4 % Normal 0.0-2.0 F [facility] Comment on above: Performed By: #### 2 [id number] #### [facility] [address] [place] [address] Basophils/Leukocytes Auto (Bld) [Pure # fraction] 0.1 E9/L Normal 0.0-0.2 [facility] Comment on above: Performed By: #### 2 [id number] #### [facility] [address] [place] [address] Eosinophils (Bld) [#/Vol] 0.0 E9/L Normal 0.0-0.5 [facility] Comment on above: Performed By: #### 2 [id number] #### [facility] [address] [place] [address] Eosinophils/100 WBC (Bld) 0.1 % Normal 0.0-8.0 [facility] Comment on above: Performed By: #### 2 [id number] #### [facility] [address] [place] [address] Erythrocyte distribution width (RBC) [Ratio] 13.8 % Normal 10.9-14.2 [facility] Comment on above: Performed By: #### 2 [id number] #### [facility] [address] [place] [address] Hematocrit (Bld) [Volume fraction] 30.7 % Low 34.0-46.0 [facility] Comment on above: Performed By: #### 2 [id number] #### [facility] [address] [place] [address] Hemoglobin (Bld) [Mass/Vol] 10.2 g/dL Low 12.0-16.0 [facility] Comment on above: Performed By: #### 2 [id number] #### [facility] [address] [place] [address] Lymphocytes (Bld) [#/Vol] 0.6 E9/L Low 1.0-4.0 [facility] Comment on above: Performed By: #### 2 [id number] #### [facility] [address] [place] [address] Lymphocytes/100 WBC (Bld) 3.9 % Low 14.0-50.0 [facility] Comment on above: Performed By: #### 2 [id number] #### [facility] [address] [place] [address] MCH (RBC) [Entitic mass] 26.0 pg Low 27.0-34.0 [facility] Comment on above: Performed By: #### 2 [id number] #### [facility] [address] [place] [address] MCHC (RBC) [Mass/Vol] 33.2 g/dL Normal 31.4-36.0 [facility] Comment on above: Performed By: #### 2 [id number] #### [facility] [address] [place] [address] MCV (RBC) [Entitic vol] 78.4 fL Low 80.0-100.0 F [facility] Comment on above: Performed By: #### 2 [id number] #### [facility] [address] [place] [address] Monocytes (Bld) [#/Vol] 0.6 E9/L Normal 0.2-1.0 F [facility] Comment on above: Performed By: #### 2 [id number] #### [facility] [address] [place] [address] Neutrophils (Bld) [#/Vol] 14.6 E9/L High 2.0-7.5 [facility] Comment on above: Performed By: #### 2 [id number] #### [facility] [address] [place] [address] Neutrophils/100 WBC (Bld) 91.7 % High 36.0-75.0 [facility] Comment on above: Performed By: #### 2 [id number] #### [facility] [address] [place] [address] Platelet mean volume (Bld) [Entitic vol] 8.0 fL Normal 6.4-10.8 [facility] Comment on above: Performed By: #### 2 [id number] #### [facility] [address] [place] [address] Platelets (Bld) [#/Vol] 228.0 E9/L Normal 150.0-500.0 [facility] Comment on above: Performed By: #### 2 [id number] #### [facility] [address] [place] [address] RBC (Bld) [#/Vol] 3.9 E12/L Low 4.3-5.9 [facility] Comment on above: Performed By: #### 2 [id number] #### [facility] [address] [place] [address] WBC corrected for nucl RBC Auto (Bld) [#/Vol] 16.0 E9/L High 4.0-11.0 [facility] Comment on above: Performed By: #### 2 [id number] #### [facility] [address] [place] [address] CHEMISTRYOrdered By: SYSTEM SYSTEM on 09-01-2024 Procalcitonin 1.75 ng/mL High 0.00 - 0.50 ng/mL [facility] Comment on above: Interpretive Data: < 0.5 ng/mL Low risk of severe sepsis and/or shock >2.0 ng/mL High risk of severe sepsis and/or shock Concentrations under 0.5 ng/mL do not exclude local infections or systemic infections in their initial stages (e.g.. under six hours from onset of illness). PCT concentrations between 0.5 and 2.0 ng/mL should be interpreted with consideration of the patient's history. In this range, it is recommended to retest PCT within 6 to 24 hours. Lactic Acid Lvl 1.1 mmol/L Normal 0.5 - 2.2 mmol/L [facility] Troponin HS 5.80 pg/mL Low 10.10 - 27.10 pg/mL [facility] Comment on above: Interpretive Data: T he 95% CI (Confidence Interval) PPV (Positive Predictive Value) for myocardial infarction in females is 38 pg/mL, in males 51 pg/mL. The results should be used in conjunction with clinical conditions of myocardial infarction. (Access High Sensitivity Troponin I Instructions For Use, [facility], March 2018) Troponin HS 8.00 pg/mL Low 10.10 - 27.10 pg/mL [facility] Comment on above: Interpretive Data: T he 95% CI (Confidence Interval) PPV (Positive Predictive Value) for myocardial infarction in females is 38 pg/mL, in males 51 pg/mL. The results should be used in conjunction with clinical conditions of myocardial infarction. (Access High Sensitivity Troponin I Instructions For Use, [facility], March 2018) Anion gap [Moles/Vol] 14 mmol/L Normal 6 - 16 mEq/L R emisol Chem Calcium [Mass/Vol] 8.5 mg/dL Low 8.9 - 11. 1 mg/dL [facility] Chloride [Moles/Vol] 102 mmol/L Normal 101 - 1 11 mmol/L [facility] CO2 [Moles/Vol] 19 mmol/L Low 21 - 31 mmol/L [facility] Creatinine [Mass/Vol] 0.6 mg/dL Normal 0.5 - 1.3 mg/dL [facility] eGFR 129 mL/min/1.73 m2 Normal >=59mL/mi n/1 .73 m2 Remisol Chem Glucose [Mass/Vol] 108 mg/dL Normal 55 - 199 mg/dL Remisol Chem Potassium [Moles/Vol] 3.2 mmol/L Low 3.5 - 5.3 mmol/L Remisol Chem Sodium [Moles/Vol] 132 mmol/L Low 135 - 145 mmol/L Remisol Chem Urea nitrogen [Mass/Vol] 5 mg/dL Normal 5 - 21 mg/d L Remisol Chem Urea nitrogen/Creatinine [Mass ratio] 8 mg/mg Low 10 - 20 Remisol Chem CHEMISTRYOrdered By: Davidson little on 09-01-2024 Natriuretic peptide B (Bld) [Mass/Vol] 36 pg/mL Normal 5 - 80 pg/mL [facility] COAGULATIONOrdered By: Davidson Watson on 09-01-2024 aPTT Coag (PPP) [Time] 28.8 s Normal 25.1 - 36.5 second(s) [facility] Auto Coag Comment on above: Interpretive Data: Florian laboy 15 days - 4 weeks 1 - 5 months 6 - 11 months 1 - 5 years 6 - 10 years 11 - 17 years PTT Mean: 35.4 (27.6-45.6) Mean: 33.5 (24.8-40.7) Mean: 32.4 (25.1-40.7) Mean: 31.6 (24.0-39.2) Mean: 31.6 (26.9-38.7) Mean: 31.0 (24.6-38.4) Pediatric Reference ranges were obtained from a study by Frankie Maradiaga et al. prepared from 1437 samples obtained at 7 different centers using the same coagulation reagent and instrumentation as [facility]. Currently there are no coagulation studies available worldwide for children to 14 days, and no normal ranges. Heparin therapeutic range (represented by Anti-Factor Xa activity of 0.2 - 0.4 U/mL) corresponds to PTT of 56.6 - 109.0 sec. Fibrin D-dimer FEU (PPP) [Mass/Vol] 5210 ng/mL FEU Invalid Interpretation Code 215 - 500 ng/mL FEU [facility] Auto Coag Comment on above: Result Comment: Resu lts Called To [place] Mcclellan By jean claude And Read Back For Confirmation On 09/01/2024 01:48:51 EST Results Verified By Repeat Analysis Interpretive Data: T his assay is intended for use as an aid in the diagnosis of DVT or PE. These conditions cannot be excluded with certainty solely on the basis of a D-dimer concentration being within the reference range This D-Dimer assay may be used in conjunction with a non-high clinical pretest probability assessment to exclude deep-vein thrombosis(DVT). For exclusion of venous thrombosis or pulmonary embolism the analyte D-Dimer should not be used as an aid in patients with: Therapeutic dose anticoagulant therapy for >24 hours Fibrinolytic therapy within previous 7 days Trauma or surgery within previous 4 weeks Disseminated malignacies Aortic aneurysm Sepsis, severe infections, pneumonia, severe skin infections Liver cirrhosis INR Coag (PPP) [Relative time] 1.02 {INR} Invalid Interpretation Code [facility] Auto Coag Comment on above: Interpretive Data: I NR results are specifically intended to assess patients stabilized on long-term Anticoagulation therapy suggested INR s Less Intensive Anticoagulation 2.0 3.0 Conventional Range 3.0 4.5 PT Coag (PPP) [Time] 11.4 s Normal 9.4 - 1 2.5 second(s) [facility] Auto Coag Comment on above: Interpretive Data: 1 5 days - 4 weeks 1 - 5 months 6 -11 months 1-5 years 6-10 years 11 -17 years Mean: 11.2 (9.5-12.6) Mean: 11.0 (9.7-12.8) Mean: 11.0 (9.8-13.0) Mean: 11.3 (9.9-13.4) Mean: 11.7 (10.0-14.6) Mean: 11.8 (10.0 - 14.1) Pediatric Reference ranges were obtained from a study by dayami Guy al. prepared from 1437 samples obtained at 7 different centers using the same coagulation reagent and instrumentation as [facility]. Currently there are no coagulation studies available worldwide for children to 14 days, and no normal ranges. CTA Cheston 09-01-2024 CTA Chest Exam Date/Time: 09/01/2024 03:00 EST Reason for Exam: Elevated D-Dimer Report IMPRESSION: LEFT UPPER LOBE CONSOLIDATION MOST LIKELY REPRESENTING PNEUMONIA. CONTINUED FOLLOW-UP IS RECOMMENDED TO ENSURE RESOLUTION. NO PULMONARY EMBOLISM. EXAM: CTA Chest History: Lightheadedness. Cough. Chest pain. Technique: Multiple axial images were obtained of the thorax from the thoracic inlet through the upper abdomen With IV contrast. Multiplanar reformats were obtained including coronal maximum intensity projection images (MIPS). Unless otherwise stated, incidental findings identified in this report do not require routine follow-up imaging. Comparison: Chest radiographs performed earlier on the same date Findings: Visualized portion of the thyroid gland is within normal limits. No axillary, mediastinal, or hilar lymphadenopathy. No thoracic aortic aneurysm or dissection. No pulmonary embolism. Heart size is within normal limits. No significant pericardial effusion. No coronary artery calcifications noted. Esophagus is within normal limits. Left upper lobe consolidation. No pneumothorax or pleural effusion. Visualized upper abdomen demonstrates no acute abnormality. No acute osseous abnormality. All CT scans at this facility use dose modulation, iterative reconstruction, and/or weight based dosing when appropriate to reduce radiation dose to as low as reasonably achievable. Report Ordering Provider: Richard Escudero FINAL REPORT Dictated: 09/01/2024 9:28 am John Maurer DO Signed (Electronic Signature): 09/01/2024 9:28 am Signed by: John Maurer DO Transcribed by: KG Technologist: KRISTIN Technical Comments GFR (mL/min/1/73m2) age Contrast: Isovue 370 Contrast amount in ml's: 57 Normal [facility] D-Dimeron 09-01-2024 Fibrin D-dimer FEU (PPP) [Mass/Vol] 5210 [id number] Abnormal 215-500 [facility] Comment on above: Result Comment: Resu lts Called To [place] Mcclellan By jean claude And Read Back For Confirmation On 09/01/2024 01:48:51 EST Results Verified By Repeat Analysis This assay is intended for use as an aid in the diagnosis of DVT or PE. These conditions cannot be excluded with certainty solely on the basis of a D-dimer concentration being within the reference range This D-Dimer assay may be used in conjunction with a non-high clinical pretest probability assessment to exclude deep-vein thrombosis(DVT). For exclusion of venous thrombosis or pulmonary embolism the analyte D-Dimer should not be used as an aid in patients with: Therapeutic dose anticoagulant therapy for >24 hours Fibrinolytic therapy within previous 7 days Trauma or surgery within previous 4 weeks Disseminated malignacies Aortic aneurysm Sepsis, severe infections, pneumonia, severe skin infections Liver cirrhosis Performed By: #### [id number] #### [facility] [address] [place] [id number] ED Clinical Summaryon 2024 ED Clinical Summary ED Clinical Summary [address] [address] ED Clinical Summary Person Information Name: ROQUE PIERSON Maribel/[facility] Age: 24 Years : 2000 Sex: Female Language: Bahraini PCP: Ambrose Urbano MD Marital Status: Visit Id: Visit Reason: Headache; Cough; Shortness of breath; HEADACHE FEVER NAUSEA DIFFICULTY BREATHING/37 WKS PREG Speciality: Acuity: 2 Enc Type: Inpatient Med Service: Medical Arrival: 09/01/2024 00:18:15 Discharge: LOS: 000 04:24 Checkin: 09/01/2024 00:18:15 Checkout: 09/01/2024 04:42:33 Dispo Type: Admitted as IP to this [facility] EVENTS: Event Name Event Status Request Date/Time Start Date/Time Complete Date/Time Arrive Complete 09/01/2024 00:18:15 09/01/2024 00:18:15 09/01/2024 00:18:15 Document Home Meds Request 09/01/2024 00:18:15 Triage Complete 09/01/2024 00:18:15 09/01/2024 00:36:41 09/01/2024 00:36:41 EKG Complete 09/01/2024 00:21:21 09/01/2024 00:29:07 Registration Complete 09/01/2024 00:22:22 09/01/2024 00:22:22 09/01/2024 00:22:22 Reg Complete Request 09/01/2024 00:22:22 Reg Bed Request Complete 09/01/2024 00:22:22 09/01/2024 00:22:22 09/01/2024 00:22:22 Pending Labs Complete 09/01/2024 00:30:29 09/01/2024 01:19:09 Lab Complete 09/01/2024 00:30:29 09/01/2024 01:19:09 Pending Labs Complete 09/01/2024 00:30:44 09/01/2024 01:19:20 Swab Complete 09/01/2024 00:30:44 09/01/2024 01:19:20 Bed Assign Complete 09/01/2024 00:37:06 09/01/2024 00:37:06 09/01/2024 00:37:06 Dr Exam Complete 09/01/2024 00:37:06 09/01/2024 00:53:58 09/01/2024 00:53:58 RN Exam Complete 09/01/2024 00:37:06 09/01/2024 01:15:46 09/01/2024 01:15:46 Meds Admin Cancel 09/01/2024 00:46:53 09/01/2024 00:55:37 Pending Labs Complete 09/01/2024 00:52:26 09/01/2024 01:55:29 Lab Complete 09/01/2024 00:52:26 09/01/2024 01:30:22 Registration Start 09/01/2024 00:53:58 09/01/2024 03:56:53 Pending Labs Complete 09/01/2024 00:59:37 09/01/2024 00:59:37 09/01/2024 01:23:53 Lab Complete 09/01/2024 00:59:37 09/01/2024 00:59:37 09/01/2024 01:23:53 Meds Admin Complete 09/01/2024 01:06:52 09/01/2024 03:59:18 Pending Labs Inlab 09/01/2024 01:06:52 Lab Inlab 09/01/2024 01:06:52 Patient Care Complete 09/01/2024 01:06:52 09/01/2024 01:37:17 X-Ray Complete 09/01/2024 01:06:52 09/01/2024 01:12:22 09/01/2024 02:03:06 RT Cancel 09/01/2024 01:06:52 09/01/2024 03:59:18 Patient Care Complete 09/01/2024 01:35:02 09/01/2024 01:37:01 Possible SIRS Request 09/01/2024 01:35:45 Wet Read Request 09/01/2024 02:03:06 CT Complete 09/01/2024 02:15:25 09/01/2024 02:31:01 09/01/2024 03:00:50 Meds Admin Complete 09/01/2024 02:20:26 09/01/2024 02:28:10 Meds Admin Complete 09/01/2024 02:20:55 09/01/2024 02:28:10 Meds Admin Complete 09/01/2024 03:13:42 09/01/2024 04:20:41 Pending Labs Complete 09/01/2024 03:13:42 09/01/2024 04:05:34 Lab Complete 09/01/2024 03:13:42 09/01/2024 04:05:34 Consult Request 09/01/2024 03:56:18 Admit Request 09/01/2024 03:56:52 Patient Care Request 09/01/2024 03:56:52 Patient Care Request 09/01/2024 03:56:54 Patient Care Request 09/01/2024 03:56:54 Patient Care Request 09/01/2024 03:56:54 Patient Care Request 09/01/2024 03:56:54 Patient Care Request 09/01/2024 03:56:55 Patient Care Request 09/01/2024 03:56:56 Patient Care Request 09/01/2024 03:58:51 Meds Admin Request 09/01/2024 03:58:51 Pending Labs Request 09/01/2024 03:58:51 Lab Request 09/01/2024 03:58:51 Meds Admin Request 09/01/2024 04:01:12 Pending Labs Request 09/01/2024 04:01:12 Lab Request 09/01/2024 04:01:12 Pending Labs Request 09/01/2024 04:03:24 Lab Request 09/01/2024 04:03:24 Meds Admin Request 09/01/2024 04:06:58 Inpatient Bed Ready Complete 09/01/2024 04:42:33 09/01/2024 04:42:33 09/01/2024 04:42:33 ADDRESS: [id number] [facility] [id number] PHYS DOC NOTES: MEDICAL INFORMATION: Prescriptions Given: Medications to Continue with No Changes Other Medications amoxicillin 500 Milligram. metoclopramide (Reglan 10 mg Tab) 1 Tablets By Mouth every 6 hours. Refills: 0. ondansetron (Zofran ODT 4 mg Tab-Dis) 1 Tablets By Mouth every 6 hours as needed Nausea/Vomiting. Refills: 0. ondansetron (Zofran ODT 4 mg Tab-Dis) 1 Tablets By Mouth every 6 hours. Refills: 0. promethazine (promethazine 12.5 mg oral tablet) 1 Tablets By Mouth every 8 hours as needed as needed for nausea/vomiting. Refills: 0. PATIENT EDUCATION INFORMATION: Instructions: Follow up: DIAGNOSIS: 1:CAP (community acquired pneumonia); 2:Dehydration; 3: woman Normal [facility] ED Note-Physicianon 09-01-19 ED Note-Physician ED Note-Physician Basic Information Time Seen: Richard Escudero MD 09/01/2024 00:53 Chief Complaint Nausea, lightheadedness, fever, and headache for past few hours. 36 weeks . Cough today. History of Present Illness 24-year-old female presents to the ER with a rather sudden onset of left-sided chest discomfort along with high fever. Patient states symptoms came on rather suddenly today starting at about 10 AM. She then started noticing the discomfort this evening. There has been some infrequent cough with it. She does not describe a sore throat with this. She does feel somewhat short of breath with this. She does complain of some nausea but no vomiting. Patient is currently 37 weeks . This is her third . She saw her RACETRACK STEWARD yesterday and everything was fine. She states that she still has noted movements. She does not describe abdominal pain. She denies any dysuria. Review of Systems A 10 point review of systems is negative except as noted above. Medical and Surgical History: Reviewed and noted Social history: Lives at home Tobacco: Denies Physical Exam Vitals & Measurements T: 36.9 ???C(Oral) HR: 125(Monitored) RR: 22 BP: 97/66 SpO2: 96% HT: 172.7 cm WT: 80.2 kg BMI: 26.89 This is a 24-year-old female she is awake and attentive skin is warm to the touch color is pink on room air. The patient's lips are dry but the oral mucosa is otherwise moist. The heart is rapid but regular. No murmur is detected. Lungs show fairly good air entry I do not detect adventitious sounds. There is some tenderness in the left CVA region. The abdomen is the fundus reaches the subxiphoid region. movements are palpated. The uterus itself does not appear to be tender. The remainder the abdomen is fairly nontender also. Her lower extremities show no tenderness or swelling. Her speech is normal. Medical Decision Making I rechecked the patient shortly after 2:15 AM. Patient states the nausea is only slightly better. She states the pain is slightly improved also. We have not yet identified a source for the fever and tachycardia. Troponin and BNP are unremarkable flu and COVID are negative white count is elevated at 16,000 with a left shift. Her urine is clear. D-dimer was elevated at 5000. Patient to be given another liter of fluid here should be given pain medication additional nausea medicine and we will proceed to a CTA chest. The patient's chest x-ray does show a left lower lobe infiltrate. This was confirmed by the CTA chest. Although the contrast-enhancement of the pulmonary artery is not ideal I do not see evidence of a PE. We will start IV antibiotics. CTA showed no evidence of a PE. I discussed the case with Dr. Crockett. He feels that the patient can be admitted to a regular care floor. He agrees with the IV antibiotics. He can be consulted by phone if there are any questions of the regard to the . I discussed the case with Dr. Thornton. She did request that we have OB come to the ER to monitor for contractions and to monitor the fetus heart tones. This has been requested. Patient will be admitted to the regular medical floor for pneumonia. Assessment/Plan 1. CAP (community acquired pneumonia), (J18.9: Pneumonia, unspecified organism)Pneumonia 2. Dehydration (E86.0: Dehydration) 3. woman (Z34.90: Encounter for supervision of normal , unspecified, unspecified trimester) Orders: acetaminophen, 650 mg = 2 tab(s), Tab, Oral, Once, Stop date 09/01/24 0:50:00 EST, Start date 09/01/24 0:50:00 EST azithromycin + Sodium Chloride 0.9% intravenous solution 250 mL, 500 mg = 1 EA, Injection, IV Piggyback, Once, Stop date 09/01/24 3:12:00 EST, STAT, Start date 09/01/24 3:12:00 EST, 250 mL/hr, Infuse over 60 minute(s) ceftriaxone + Sodium Chloride 0.9% intravenous solution 50 mL, 1,000 mg = 1 EA, IV Piggyback, Once, Stop date 09/01/24 3:11:00 EST, STAT, Start date 09/01/24 3:11:00 EST, 100 mL/hr, Infuse over 30 minute(s), 09/01/24 3:11:00 EST morphine, 4 mg = 1 mL, Injection, IV Push, Once, Stop date 09/01/24 2:20:00 EST, STAT, Start date 09/01/24 2:20:00 EST, 09/01/24 2:20:00 EST ondansetron, 4 mg = 2 mL, Injection, IV Push, Once, Stop date 09/01/24 2:20:00 EST, STAT, Start date 09/01/24 2:20:00 EST, 09/01/24 2:20:00 EST Sodium Chloride 0.9% intravenous solution, 1,000 mL, Soln-IV, IV, Once, Stop date 09/01/24 1:06:00 EST, STAT, Start date 09/01/24 1:06:00 EST, Infuse over 61, minute(s) Sodium Chloride 0.9% intravenous solution, 1,000 mL, Soln-IV, IV, Once, Stop date 09/01/24 2:20:00 EST, STAT, Start date 09/01/24 2:20:00 EST, Infuse over 61, minute(s) B-Type Natriuretic Peptide Basic Metabolic Panel Blood Culture Charcoal Blood Culture Charcoal CBC w/ Auto Diff CTA Chest D-Dimer ECG 12 Lead Adult eGFR Influenza A&B Ag Lactic Acid PT & PTT Saline Lock Insert Straight Cath Troponin 0 Hr. Troponin 1 Hr. UA with Cult Rflx XR Chest 2 Views Medications Administered Given a (more content not included)... Normal [facility] Comment on above: Result Comment: Elec tronically Signed By: Richard Escudero MD\.br\Date and Time Signed: 09/01/24 04:38 EST ED Patient Education Noteon 09-01-2024 ED Patient Education Note ED Patient Education Note Normal [facility] ED Patient Summaryon 025 ED Patient Summary ED Patient Summary [place] [id number] Patient Discharge Instructions Person Information Name: ROQUE PIERSON Age: 24 Years Arrival Date: 09/01/2024 00:18:15 Discharge Diagnosis: 1:CAP (community acquired pneumonia); 2:Dehydration; 3: woman Primary Care Physician: Ambrose Urbano MD Provider Information Primary Provider: Richard Escudero MD Advanced Meters Superintendent:None The exam and treatment you received in the Emergency Department were for an urgent problem and are not intended as complete care. It is important that you follow up with a doctor, nurse practitioner, or physician???s nurseryman assistant for ongoing care. If your symptoms become worse or you do not improve as expected and you are unable to reach your usual health care provider, you should return to the Emergency Department. We are available 24 hours a day. ROQUE PIERSON has been given the following list of patient education materials, prescriptions and follow-up instructions: Follow-up Instructions: In the event that this physician does not participate in your insurance network, please consult with your insurance company to find a nearby participating provider. Patient Education Materials: A MESSAGE TO ALL PATIENTS REGARDING OPIOIDS PRESCRIPTION OPIOIDS: WHAT YOU NEED TO KNOW Prescription opioids can be used to help relieve nftlykih-tm-nzcsfc pain and are often prescribed following a [...] as well, even when taken as directed: ??? Tolerance???meaning you might need to take more of the medication for the same pain relief ??? Physical dependence???meaning you have symptoms of withdrawal when a medication is stopped ??? Increased sensitivity to pain ??? Constipation ??? Nausea, vomiting, and dry mouth ??? Sleepiness and dizziness ??? Confusion ??? Depression ??? Low levels of testosterone that can result in lower sex drive, energy, and strength ??? Itching and sweating RISKS ARE GREATER WITH: ??? History of drug misuse, substance use disorder, or overdose ??? Mental health conditions (such as depression or anxiety) ??? Sleep apnea ??? Older age (65 years and older) ??? Avoid alcohol while taking prescription opioids. Also, unless specifically advised by your health care provider, medications to avoid include: ??? Benzodiazepines (such as Xanax or Valium) ??? Muscle relaxants (such as Soma or Flexeril) ??? Hypnotics (such as Ambien or Lunesta) ??? Other prescription opioids KNOW YOUR OPTIONS Talk to your health care provider about ways to manage your pain that don???t involve prescription opioids. Some of these options may actually work better and have fewer risks and side effects. Options may include: ??? Pain relievers such as acetaminophen, ibuprofen, and naproxen ??? Some medication that are also used for depression or seizures ??? Physical therapy and exercise ??? Cognitive behavioral therapy, a psychological, goal-directed approach, in which patients learn how to modify physical, behavioral, and emotional triggers of pain and stress. IF YOU ARE PRESCRIBED OPIOIDS FOR PAIN: ??? Never take opioids in greater amounts or more often than prescribed. ??? Follow up with your primary health care provider. o Work together to create a plan on how to manage your pain. o Talk about ways to help manage your pain that don???t involve prescription opioids. o Talk about any and all concerns and side effects. ??? Help prevent misuse and abuse o Never sell or share prescription opioids. o Never use another person???s prescription opioids. ??? Store prescription opioids in a secure place and out of reach of others (this may include visitors, children, friends, and family). ??? Safely dispose of unused prescription opioids: Find your community drug take-back program or your pharmacy mail-back program, or flush them down the toilet, following guidance from the Food and Drug Administration (www.fda.gov/Drugs/R esourcesForYou). ??? Visit www.cdc.gov/drugover dose to learn about the risks of opioids abuse and overdose. ??? If you believe you may be struggling with addiction, tell your health health care technician and ask for guidance or call [facility]???S Startups Helpline at 2-160-445-VCTV. x Source: [employer] of [employer] and Daniela (more content not included)... Normal [facility] Extra Davin 09-01-2024 WB Tube Collected Yes Invalid Interpretation Code [facility] Comment on above: Performed By: #### [id number] #### [facility] [address] [place] [address] HEMATOLOGYOrdered By: SYSTEM SYSTEM on 09-01-2024 Basophils/100 WBC (Bld) 0.4 % Normal 0.0 - 2.0 % Remisol Heme Basophils/Leukocytes Auto (Bld) [Pure # fraction] 0.1 E9/L Normal 0.0 - 0.2 E9/L Remisol Heme Eosinophils (Bld) [#/Vol] 0.0 E9/L Normal 0.0 - 0.5 E9/L Remisol Heme Eosinophils/100 WBC (Bld) 0.1 % Normal 0.0 - 8.0 % Remisol Heme Erythrocyte distribution width (RBC) [Ratio] 13.8 % Normal 10.9 - 14.2 % Remisol Heme Hematocrit (Bld) [Volume fraction] 30.7 % Low 34.0 - 46.0 % Remisol Heme Hemoglobin (Bld) [Mass/Vol] 10.2 g/dL Low 12.0 - 16.0 gm/dL Remisol Heme Lymphocytes (Bld) [#/Vol] 0.6 E9/L Low 1.0 - 4.0 E9/L Remisol Heme Lymphocytes/100 WBC (Bld) 3.9 % Low 14.0 - 50.0 % Remisol Heme MCH (RBC) [Entitic mass] 26.0 pg Low 27. 0 - 34.0 pg Remisol Heme MCHC (RBC) [Mass/Vol] 33.2 g/dL Normal 31.4 - 36.0 gm/dL Remisol Heme MCV (RBC) [Entitic vol] 78.4 fL Low 80.0 - 100.0 fL Remisol Heme Monocytes (Bld) [#/Vol] 0.6 E9/L Normal 0.2 - 1.0 E9/L Remisol Heme Monocytes/100 WBC (Bld) 3.9 % Low 4.0 - 14.0 % Remisol Heme Neutrophils (Bld) [#/Vol] 14.6 E9/L High 2.0 - 7.5 E9/L Remisol Heme Neutrophils/100 WBC (Bld) 91.7 % High 36.0 - 75.0 % Remisol Heme Platelet mean volume (Bld) [Entitic vol] 8.0 fL Normal 6.4 - 10.8 fL Remisol Heme Platelets (Bld) [#/Vol] 228.0 E9/L Normal 150. 0 - 500.0 E9/L Remisol Heme RBC (Bld) [#/Vol] 3.9 E12/L Low 4.3 - 5.9 E12/L Remisol Heme WBC corrected for nucl RBC Auto (Bld) [#/Vol] 16.0 E9/L High 4.0 - 11.0 E9/L Remisol Heme Influenza A&B Agon 5 Influenzae A Ag Negative Normal Negative [facility] Comment on above: Performed By: #### 1 [id number] #### [facility] [address] [place] [address] Influenzae B Ag Negative Normal Negative [facility] Comment on above: Result Comment: Test sensitivity and specificity vary for age group, specimen type, antigen types, and prevalence of disease. Test results must be evaluated in conjunction with other clinical data available to the physician. Individuals who received nasally administered Influenza A vaccine may have positive test results up to 3 days after vaccination. Performed By: #### 1 [id number] #### [facility] [address] [place] [address] Interdisciplinary Note - Paulo e Manageron 09-01-2024 Interdisciplinary Note - Title Curator Interdisciplinary Note - Title Curator CRM to room 319 Patient is awake, alert and oriented. Patient is from home. Patient verified PCP, DME and insurance. Patient is an inpatient stay. Her Spouse or family will transport at [place]. Patient came in with JAVIER, fever and Nausea. She was found to have PNA. Patient is 37 weeks . Her SW consult need was in error, see SW note. Patient is assigned to Dr Miranda, see notes. Patient is on oxygen, she will need weaned. She does not wear at home. Patient declined any concerns to return home at [place] and declined needs for DME, HH or Paramed. Patient was provided CRM contact, white board updated. She is not a DC today Normal [facility] Comment on above: Result Comment: Elec tronically Signed By: Angelina Spencer\.br\Date and Time Signed: 09/01/24 10:57 EST Interdisciplinary Note - Soc ial Workeron 09-01-2024 Interdisciplinary Note - Library Circulation Clerk Interdisciplinary Note - Library Circulation Clerk Consult for positive alcohol screen received. Per chart review, it was noted that this was marked in error. Documentation had been corrected by nursing staff after system generated consult was triggered. No concerns noted at this time. SW will remain available should needs arise. Normal [facility] - Microbiology an d Antimicrobial susceptibilityOrdered By: Carla Daugherty on 09-01-2024 Bacteria identified Respiratory culture Nom (Sput) 1+ Normal upper respiratory taye isolated [facility] Lactic Acidon 09-01-2024 Lactic Acid Lvl 1.1 mmol/L Normal 0.5-2.2 [facility] Comment on above: Performed By: #### 2 [id number] #### [facility] [address] [place] [address] MICRO OTHER TESTSOrdered By: Davidson Watson on 09-01-2024 Influenzae A Ag Negative (09/01/24 12:41 AM) Normal Negative [facility]ero Influenzae B Ag Negative 4 (09/01/24 12:41 AM) Normal Negative [facility] Comment on above: Interpretive Data: [...] vaccination. Rapid COV Int NEG Ctl Pass (09/01/24 12:41 AM) Normal [facility]ero Rapid COV Int POS Ctl Pass (09/01/24 12:41 AM) Normal [facility] SARS-CoV+SARS-CoV-2 (COVID-19) Ag IA.rapid Ql (Resp) Not Detected 12 (09/01/24 12:41 AM) Normal Not Detected [facility] Comment on above: Interpretive Data: T he [email or web address] Veritor System for Rapid Detection of SARS-CoV-2 [...] the authorization is terminated or revoked sooner. No Panel InformationOrdered By: Carla Daugherty on 09-01-2024 GS Occasional White Blood Cells Occasional Gram Positive Cocci [facility] No Panel InformationOrdered By: [facility] on 09-01-2024 Blood Culture Charcoal No growth at 1 da y. Final to follow at 7 days. [facility] Blood Culture Charcoal No growth at 1 da y. Final to follow at 7 days. [facility] Nursing Assessmenton 025 Nursing Assessment Nursing Assessment At 1925 FHT via doppler on [facility]. FHT audible via mid left umbilicus, FHT in 130s, audible movement, abdomen soft to palpation. RN notified. Normal [facility] Nursing Assessment Nursing Assessment 0950 this nurse into see [facility] for heart rate. FHTs performed on left mid umbilicus, 150's audible movement noted. abdomen soft to palpation Normal [facility] PT & PTTon 09-01-2024 aPTT Coag (PPP) [Time] 28.8 second(s) Normal 25.1-36.5 [facility] Comment on above: Result Comment: Para meter 15 days - 4 weeks 1 - 5 months 6 - 11 months 1 - 5 years 6 - 10 years 11 - 17 years PTT Mean: 35.4 (27.6-45.6) Mean: 33.5 (24.8-40.7) Mean: 32.4 (25.1-40.7) Mean: 31.6 (24.0-39.2) Mean: 31.6 (26.9-38.7) Mean: 31.0 (24.6-38.4) Pediatric Reference ranges were obtained from a study by Frankie Maradiaga et al. prepared from 1437 samples obtained at 7 different centers using the same coagulation reagent and instrumentation as [facility]. Currently there are no coagulation studies available worldwide for children to 14 days, and no normal ranges. Heparin therapeutic range (represented by Anti-Factor Xa activity of 0.2 - 0.4 U/mL) corresponds to PTT of 56.6 - 109.0 sec. Performed By: #### 1 [id number] #### [facility] [address] [place] [address] INR Coag (PPP) [Relative time] 1.02 {INR} Invalid Interpretation Code [facility] Comment on above: Result Comment: INR results are specifically intended to assess patients stabilized on long-term Anticoagulation therapy suggested INR???s ???Less Intensive Anticoagulation??? 2.0 ??? 3.0 Conventional Range 3.0 ??? 4.5 Performed By: #### 1 [id number] #### [facility] [address] [place] [address] PT Coag (PPP) [Time] 11.4 second(s) Normal 9.4-12.5 [facility] Comment on above: Result Comment: 15 d ays - 4 weeks 1 - 5 months 6 -11 months 1-5 years 6-10 years 11 -17 years Mean: 11.2 (9.5-12.6) Mean: 11.0 (9.7-12.8) Mean: 11.0 (9.8-13.0) Mean: 11.3 (9.9-13.4) Mean: 11.7 (10.0-14.6) Mean: 11.8 (10.0 - 14.1) Pediatric Reference ranges were obtained from a study by Frankie Maradiaga et al. prepared from 1437 samples obtained at 7 different centers using the same coagulation reagent and instrumentation as [facility]. Currently there are no coagulation studies available worldwide for children to 14 days, and no normal ranges. Performed By: #### 1 [id number] #### [facility] [address] [place] [address] Procalcitoninon 09-01-2024 Procalcitonin 1.75 ng/mL High .00-.50 [facility] Comment on above: Order Comment: Add t o blood work in lab Result Comment: <0.5 ng/mL Low risk of severe sepsis and/or shock >2.0 ng/mL High risk of severe sepsis and/or shock Concentrations under 0.5 ng/mL do not exclude local infections or systemic infections in their initial stages (e.g.. under six hours from onset of illness). PCT concentrations between 0.5 and 2.0 ng/mL should be interpreted with consideration of the patient's history. In this range, it is recommended to retest PCT within 6 to 24 hours. Performed By: #### 2 [id number] #### [facility] [address] [place] [address] Rapid COVID Antigen ([facility])on 09-01-2024 Rapid COV Int NEG Ctl Pass Normal [facility] Comment on above: Performed By: #### 2 [id number] #### [facility] [address] [place] [address] Rapid COV Int POS Ctl Pass Normal [facility] Comment on above: Performed By: #### 2 [id number] #### [facility] [address] [place] [address] SARS-CoV+SARS-CoV-2 (COVID-19) Ag IA.rapid Ql (Resp) Not detected Normal Not Detected [facility] Comment on above: Result Comment: The Gone!??? System for Rapid Detection of SARS-CoV-2 is [...] be considered in the context of a patient???s recent exposures, history and the presence of [...] laboratories certified under the CLIA, 42 U.S.C. ???263a, that meet requirements to perform moderate, high, or waived complexity tests and at the Point of Care (POC), i.e., in patient care settings operating under a CLIA Certificate of Waiver, Certificate of Compliance, or Certificate of Accreditation. This test has been authorized only for the detection of proteins from SARS-CoV-2, not for any other viruses or pathogens; and, in the [facility], this test is only authorized for the duration of the declaration that circumstances exist justifying the authorization of emergency use of in vitro diagnostics for detection and/or diagnosis of the virus that causes COVID-19 under Section 564(b)(1) of the Act, 21 U.S.C. ??? 360bbb-3(b)(1), unless the authorization is terminated or revoked sooner. Performed By: #### 2 [id number] #### [facility] [address] [place] [address] Troponin 0 Hr.on 09-01-2024 Troponin HS 8.00 pg/mL Low 10.10-27.10 [facility] Comment on above: Result Comment: The 95% CI (Confidence Interval) PPV (Positive Predictive Value) for myocardial infarction in females is 38 pg/mL, in males 51 pg/mL. The results should be used in conjunction with clinical conditions of myocardial infarction. (Access High Sensitivity Troponin I Instructions For Use, CAXA, March 2018) Performed By: #### 1 [id number] #### [facility] [address] [place] [address] Troponin 1 Hr.on 09-01-2024 Troponin HS 5.80 pg/mL Low 10.10-27.10 [facility] Comment on above: Order Comment: due a t 0222 Result Comment: The 95% CI (Confidence Interval) PPV (Positive Predictive Value) for myocardial infarction in females is 38 pg/mL, in males 51 pg/mL. The results should be used in conjunction with clinical conditions of myocardial infarction. (Access High Sensitivity Troponin I Instructions For Use, CAXA, March 2018) Performed By: #### 1 [id number] #### [facility] [address] [place] [address] UA with Cult Rflxon 09-01-19 Type of Urine collection method Catheter Normal [facility] Comment on above: Result Comment: Test results were corrected for specicmen description. Performed By: #### 4 [id number] #### [facility] [address] [place] [address] Bilirubin Ql (U) Negative Normal Negative [facility] Comment on above: Performed By: #### 4 [id number] #### [facility] [address] [place] [address] Clarity (U) Clear Normal Clear [facility] Comment on above: Performed By: #### 4 [id number] #### [facility] [address] [place] [address] Color (U) Yellow Normal Yellow [facility] Comment on above: Result Comment: Micr oscopic readings are only performed on those samples that meet specific criteria set forth by [facility]. Performed By: #### 4 [id number] #### [facility] [address] [place] [address] Glucose Ql (U) Negative Normal Negative [facility] Comment on above: Performed By: #### 4 [id number] #### [facility] [address] [place] [address] Hemoglobin Auto test strip (U) [Mass/Vol] Negative Normal Negative [facility] Comment on above: Performed By: #### 4 [id number] #### [facility] [address] [place] [address] Ketones Auto test strip Ql (U) 3+ mg/dL Abnormal Negative [facility] Comment on above: Performed By: #### 4 [id number] #### [facility] [address] [place] [address] Leukocyte esterase Auto test strip Ql (U) Negative Normal Negative [facility] Comment on above: Performed By: #### 4 [id number] #### [facility] [address] [place] [address] Nitrite Auto test strip Ql (U) Negative Normal Negative [facility] Comment on above: Performed By: #### 4 [id number] #### [facility] [address] [place] [address] pH (U) 6.0 [pH] Invalid Interpretation Code 5.0-9.0 [facility] Comment on above: Performed By: #### 4 [id number] #### [facility] [address] [place] [address] Protein Ql (U) Trace Abnormal Negative [facility] Comment on above: Performed By: #### 4 [id number] #### [facility] [address] [place] [address] Specific gravity (U) [Rel density] 1.022 Invalid Interpretation Code 1.005-1.030 [facility] Comment on above: Performed By: #### 4 [id number] #### [facility] [address] [place] [address] Urobilinogen (U) [Mass/Vol] Negative Normal Negative [facility] Comment on above: Performed By: #### 4 [id number] #### [facility] [address] [place] [address] Type of Urine collection method Clean Catch Normal [facility] Comment on above: Performed By: #### 4 [id number] #### [facility] [address] [place] [address] URINALYSISOrdered By: SYSTEM SYSTEM on 09-01-2024 Bilirubin Ql (U) Negative Normal Negativemg/ d L [facility] UA Auto SS Clarity (U) Clear (09/01/24 1:29 AM) Normal Clear [facility] UA Auto SS Color (U) Yellow 3 (09/01/24 1:29 AM) Normal Yellow [facility] UA Auto SS Comment on above: Interpretive Data: M icroscopic readings are only performed on those samples that meet specific criteria set forth by [facility]. Glucose Ql (U) Negative Normal Negativemg/d L [facility] UA Auto SS Hemoglobin Auto test strip (U) [Mass/Vol] Negative Normal Negativemg/d L [facility] UA Auto SS Ketones Auto test strip Ql (U) 3+ mg/dL Invalid Interpretation Code Negativemg/d L [facility] UA Auto SS Leukocyte esterase Auto test strip Ql (U) Negative Normal NegativeLeu/ uL [facility] UA Auto SS Nitrite Auto test strip Ql (U) Negative Normal Negativemg/d L [facility] UA Auto SS pH (U) 6.0 *NA* (09/01/24 1:29 AM) Invalid Interpretation Code 5.0 - 9.0 [facility] UA Auto SS Protein Ql (U) Trace mg/dL Invalid Interpretation Code Negativemg/d L [facility] UA Auto SS Specific gravity (U) [Rel density] 1.022 *NA* (09/01/24 1:29 AM) Invalid Interpretation Code 1.005 - 1.030 [facility] UA Auto SS Urobilinogen (U) [Mass/Vol] Negative Normal Negativemg/d L [facility] UA Auto SS URINALYSISOrdered By: Abi Alexis on 09-01-2024 UA Spec Desc Catheter 5 (09/01/24 1:29 AM) Normal [facility] UA Auto SS Comment on above: Result Comment: Test results were corrected for specicmen description. XR Chest 2 Viewson XR Chest 2 Views Exam Date/Time: 09/01/2024 02:03 EST Reason for Exam: Chest pain Report IMPRESSION: Opacity left lung base, likely infectious in etiology. EXAMINATION: XR Chest 2 Views Clinical History: Chest pain. Nausea. Fever. Headache. Cough. Comparison: 09/08/2023. RESULT: Opacity left lung base, likely infectious in etiology. Right lung grossly clear. No large pleural effusion. No pneumothorax. Stable cardiomediastinal silhouette. No acute osseous findings. Ordering Provider: Richard Escudero FINAL REPORT Dictated: 09/01/2024 9:50 am Sachin Sosa MD. Signed (Electronic Signature): 09/01/2024 9:50 am Signed by: Sachin Soas MD Transcribed by: KG Technologist: KRISTIN Technical Comments Radiation Dose: Ka,r in mGy = 0 DAP = 0 Normal [facility] eGFRon 09-01-2024 eGFR 129 mL/min/1.73 m2 Normal >=59 [facility] Comment on above: Performed By: #### 1 [id number] #### [facility] [address] [place] [address] Strep B Culture (PCN Allergi c)on 08-31-2024 Strep B Culture (PCN Allergic) No Group B Beta Streptococcus Isolated 3 Days PERFORMED BY: [facility] [address] [id number] PATHOLOGIST NOC ENGINEER PATIENCE RAE M.D. Normal [facility] Comment on above: Performed By: #### Abdulaziz USTB(PCN) #### [facility] [address] Urinalysis macro (dipstick) panel (U)on 08-31-2024 Bilirubin, UA Negative Negative - 4(70) +++ mg/dL [facility] Blood, UA Negative Negative - 50 Jorge/mcL [facility] Clarity, UA Clear [facility] Color, UA Yellow [facility] Glucose, UA Negative Negative - 1999(110) ++++ mg/dL [facility] Interpretation and review of laboratory results Normal [facility] Ketones, UA Negative Negative - 160(16) ++++ mg/dL [facility] Leukocytes, UA Negative Negative - 500+++ Jose/mcL [facility] Nitrite, UA Negative Negative - Positive [facility] pH, UA 6 5 - 9 [facility] Protein, UA Negative Negative - 1999(20) ++++ mg/dL [facility] Spec Grav, UA 1.02 1 - 1.03 [facility] Urobilinogen, UA 1.0 0.2 - 12 mg/dL [facility] Urinalysis macro (dipstick) panel (U)on 08-11-2024 Bilirubin, UA Negative Negative - 4(70) +++ mg/dL [facility] Blood, UA Negative Negative - 50 Jorge/mcL [facility] Clarity, UA Clear [facility] Color, UA Yellow [facility] Glucose, UA Negative Negative - 2000(110) ++++ mg/dL [facility] Interpretation and review of laboratory results Abnormal [facility] Ketones, UA Negative Negative - 160(16) ++++ mg/dL [facility] Leukocytes, UA Positive Negative - 500+++ Jose/mcL [facility] Comment on above: large Nitrite, UA Negative Negative - Positive [facility] pH, UA 5.5 5 - 9 [facility] Protein, UA Negative Negative - 1999(20) ++++ mg/dL [facility] Spec Grav, UA 1.015 1 - 1.03 [facility] Urobilinogen, UA 2.0 0.2 - 12 mg/dL [facility] C Urineon 07-28-2024 Bacteria identified Cx Nom (U) Microbiology PROCEDURE: Urine Culture [R1] SOURCE: U CleanCatch BODY SITE: COLLECTED DATE/TIME: 07/25/2024 22:35 EST RECEIVED DATE/TIME: 07/26/2024 00:03 EST START DATE/TIME: 07/26/2024 00:03 EST FREE TEXT SOURCE: Sissy Shah DO, DO, Kaylinn A FINAL REPORTS Final Report [] Verified Date/Time: 07/28/2024 11:57 EST 3,000 cfu/ml Mixed skin contaminants Performing Locations R1: This test was performed at: [facility], [address] [place] [address], [facility] , , [facility] Comment on above: Performed By: #### 2 [id number] #### [facility] [address] [place] [address] ED Clinical Summaryon 2023 ED Clinical Summary ED Clinical Summary [address] [address] ED Clinical Summary Person Information Name: ROQUE PIERSON Maribel/[facility] Age: 24 Years : 2000 Sex: Female Language: Bahraini PCP: Ambrose Urbano MD Marital Status: Phone: [phone] Visit Id: Visit Reason: Headache; Vomiting; Nausea; HEAD ACHE / VOMITNG / [id number] Speciality: Acuity: 3 Enc Type: Emergency Med Service: Emergency Arrival: 07/25/2024 22:08:42 Discharge: 07/25/2024 23:52:00 LOS: 000 01:44 Checkin: 07/25/2024 22:08:42 Checkout: 07/25/2024 23:52:00 Dispo Type: Home (Routine DC) EVENTS: Event Name Event Status Request Date/Time Start Date/Time Complete Date/Time Arrive Complete 07/25/2024 22:08:42 07/25/2024 22:08:42 07/25/2024 22:08:42 Document Home Meds Request 07/25/2024 22:08:42 Triage Complete 07/25/2024 22:08:42 07/25/2024 22:16:26 07/25/2024 22:16:26 Dr Exam Complete 07/25/2024 22:17:36 07/25/2024 22:17:36 07/25/2024 22:17:36 Registration Complete 07/25/2024 22:17:36 07/25/2024 22:17:55 07/25/2024 22:35:09 Bed Assign Complete 07/25/2024 22:17:55 07/25/2024 22:17:55 07/25/2024 22:17:55 RN Exam Complete 07/25/2024 22:17:55 07/25/2024 22:39:43 07/25/2024 22:39:43 Pending Labs Complete 07/25/2024 22:18:48 07/25/2024 22:53:27 Reg Complete Request 07/25/2024 22:35:09 Reg Bed Request Complete 07/25/2024 22:35:09 07/25/2024 22:35:09 07/25/2024 22:35:09 Meds Admin Complete 07/25/2024 22:43:23 07/25/2024 22:52:57 Pending Labs Collected 07/25/2024 22:53:27 07/25/2024 22:53:27 Lab Collected 07/25/2024 22:53:27 07/25/2024 22:53:27 Meds Admin Complete 07/25/2024 23:10:25 07/25/2024 23:14:11 Discharge Complete 07/25/2024 23:47:14 07/25/2024 23:52:03 07/25/2024 23:52:03 Transfer Complete 07/25/2024 23:52:03 07/25/2024 23:52:03 07/25/2024 23:52:03 ADDRESS: [id number] [facility] [id number] PHYS DOC NOTES: MEDICAL INFORMATION: Prescriptions Given: New Medications [facility], [address], [place] [id number], [phone] cephalexin (Keflex 500 mg Cap) 1 Capsules By Mouth 3 times a day for 5 Days. Refills: 0. Medications to Continue Taking That Have Changed [facility], [address], [place] [id number], [phone] START: ondansetron (Zofran ODT 4 mg Tab-Dis) 1 Tablets By Mouth every 6 hours. Refills: 0. Other Medications START: ondansetron (Zofran ODT 4 mg Tab-Dis) 1 Tablets By Mouth every 6 hours as needed Nausea/Vomiting. Refills: 0. Medications to Continue with No Changes Other Medications amoxicillin 500 Milligram. metoclopramide (Reglan 10 mg Tab) 1 Tablets By Mouth every 6 hours. Refills: 0. promethazine (promethazine 12.5 mg oral tablet) 1 Tablets By Mouth every 8 hours as needed as needed for nausea/vomiting. Refills: 0. PATIENT EDUCATION INFORMATION: Instructions: Urinary Tract Infection, Adult, [id number]; Nausea and Vomiting, Adult, [id number]; General Headache Without Cause, [id number] Follow up: With: Address: When: Ambrose Urbano [address] [place] [address], [facility] [place] [address] Business (1) In 3 days 07/28/2024 Comments: Take the antibiotics as prescribed you have completed the course. Use nausea medication every 6 hours as needed for nausea and vomiting. You can use Tylenol every 6 hours as needed for pain. Please follow-up with your primary care doctor and [facility] STEWARD for further evaluation management. Please return to the ED for any new or worsening symptoms. DIAGNOSIS: Acute UTI (urinary tract infection); Headache; N&V (nausea and vomiting) Normal [facility] ED Note-Physicianon 07-25-20 ED Note-Physician ED Note-Physician Basic Information Time Seen: Sissy Shah DO 07/25/2024 22:17 Chief Complaint complains of headache for two days. nausea and vomiting. unable to keep anything down. pt is 30wks rpreg. pt states she has felt the baby move today. denies cramping or vaginal bleeding History of Present Illness Patient is a 24-year-old female currently 30 weeks gestation presenting to the ED for evaluation of headache, nausea and vomiting. Patient states she has had a diffuse headache for the last 2 days has had associated nausea and vomiting. States she has been unable to keep anything down. Patient states she is been feeling the baby move, no vaginal bleeding vaginal discharge. Patient states everything is normal with blood . Patient does states she has a history of headaches and this feels similar. Review of Systems A 10 point review of systems is negative except as noted above. Medical and Surgical History: Reviewed and noted Social history: Lives at home Tobacco: Denies Physical Exam Vitals & Measurements T: 36.6 ???C(Oral) HR: 84(Peripheral) RR: 16 BP: 107/66 SpO2: 98% HT: 175 cm WT: 79.2 kg BMI: 25.86 General: Well developed, non toxic appearing, no acute distress HEENT: Head atraumatic, Mucosa moist, hearing grossly normal Neck: No JVD, tracheal deviation Cardiac: Regular rate, rhythm, no murmurs, or gallops, 2+ radial pulses Respiratory: Lungs clear to auscultation B/L, normal respiratory effort Abdomen: Soft non tender, no rebound or guarding, no peritoneal signs, gravid abdomen Extremities: No edema noted in the LE B/L, no tenderness to palpation Neurologic: Alert and oriented, speech clear, cranial nerves III through XII intact no focal neurologic deficits Skin: No rashes or lesions Psych: Appropriate mood and behavior Medical Decision Making MEDICAL DECISION MAKING Number and Complexity of Problems Differential Diagnosis: [] [facility] Data External documents reviewed: [] My EKG interpretation: [] My CT interpretation: [] My X-ray interpretation: [] My Ultrasound interpretation: [] Decision rules/scores evaluated: [] Discussed with: [] Treatment and Disposition ED Course: Patient is a 24-year-old female presenting to the ED for evaluation of headache. Patient nontoxic and on arrival, no acute distress. Blood pressure is normal therefore I have low concern for preeclampsia. No focal deficits noted on examination. Urinalysis is obtained patient is given Reglan, IV fluids in addition to Tylenol for treatment of her symptoms. Urinalysis is consistent with urinary tract infection is given Keflex for treatment of this. heart rate is 152. On reevaluation patient is feeling significantly improved. She is starting Keflex for treatment of urinary tract infection is also given prescription for Zofran. She is to follow-up with her primary care doctor for further evaluation management. She is to return to the ED for any new or worsening symptoms. Shared decision making: [] Code status: [] Assessment/Plan Acute UTI (urinary tract infection) (N39.0: Urinary tract infection, site not specified) Headache (R51.9: Headache, unspecified) N&V (nausea and vomiting) (R11.2: Nausea with vomiting, unspecified) Orders: acetaminophen, 975 mg = 3 tab(s), Tab, Oral, Once, Stop date 07/25/24 22:42:00 EST, STAT, Start date 07/25/24 22:42:00 EST, 07/25/24 22:42:00 EST cephalexin, 500 mg = 1 cap(s), Oral, TID, X 5 day(s), # 15 cap(s), Refills(s) 0, Pharmacy: [facility], 175, cm, 07/25/24 22:16:00 EST, Height/Length Dosing, 79.2, kg, 07/25/24 22:16:00 EST, Weight Dosing cephalexin, 500 mg = 1 cap(s), Cap, Oral, Once, Stop date 07/25/24 23:10:00 EST, STAT, Start date 07/25/24 23:10:00 EST, 07/25/24 23:10:00 EST metoclopramide, 10 mg = 2 mL, Injection, IV Push, Once, Stop date 07/25/24 22:42:00 EST, STAT, Start date 07/25/24 22:42:00 EST, 07/25/24 22:42:00 EST ondansetron, 4 mg = 1 tab(s), Oral, q6hr, # 12 tab(s), Refills(s) 0, Pharmacy: [facility], 175, cm, 07/25/24 22:16:00 EST, Height/Length Dosing, 79.2, kg, 07/25/24 22:16:00 EST, Weight Dosing Sodium Chloride 0.9% intravenous solution, 500 mL, Soln-IV, IV, Once, Stop date 07/25/24 22:42:00 EST, STAT, Start date 07/25/24 22:42:00 EST, Infuse over 60, minute(s) UA with Cult Rflx Urine Culture Medications Administered Given acetaminophen 325 mg Tab, 975 mg, Oral Keflex 500 mg Cap, 500 mg, Oral metoclopramide 5 mg/mL Inj, 10 mg, IV Push NS 500 ml Bolus, 500 mL, IV Disposition Plan Discharge Prescription List Prescriptions Keflex 500 mg Cap, 500 mg= 1 cap(s), Oral, TID Zofran ODT 4 mg Tab-Dis, 4 mg= 1 tab(s), Oral, q6hr Follow-up With When Contact Information Ambrose Urbano In 3 days 07/28/2024 EST [facility] Business (1) Additional Instructions: Take the antibiotics as prescribed you have completed the course. U (more content not included)... Normal [facility] Comment on above: Result Comment: Elec tronically Signed By: Sissy Shah DO\.br\Date and Time Signed: 07/25/24 23:48 EST ED Patient Summaryon 024 ED Patient Summary ED Patient Summary [place] [id number] Patient Discharge Instructions Person Information Name: ROQUE PIERSON Age: 24 Years Arrival Date: 07/25/2024 22:08:42 Discharge Diagnosis: Acute UTI (urinary tract infection); Headache; N&V (nausea and vomiting) Primary Care Physician: Ambrose Urbano MD Provider Information Primary Provider: Sissy Shah DO Advanced Meters Superintendent:None The exam and treatment you received in the Emergency Department were for an urgent problem and are not intended as complete care. It is important that you follow up with a doctor, nurse practitioner, or physician???s nurseryman assistant for ongoing care. If your symptoms [...] Follow-up Instructions: With: Address: When: Ambrose Urbano [facility], [address] [place] [id number] Business (1) In 3 days 07/28/2024 Comments: Take the antibiotics as prescribed you have completed the course. Use nausea medication every 6 hours as needed for nausea and vomiting. You can use Tylenol every 6 hours as needed for pain. Please follow-up with your primary care doctor and RACETRACK STEWARD for further evaluation management. Please return to the ED for any new or worsening symptoms. In the event that this physician does not participate in your insurance network, please consult with your insurance company to find a nearby participating provider. Patient Education Materials: Urinary Tract Infection, Adult, Vrlp-rm-Useo; Nausea and Vomiting, Adult, Mwis-gb-Jwrl; General Headache Without Cause, Jgaj-rw-Nxqz A MESSAGE TO ALL PATIENTS REGARDING OPIOIDS PRESCRIPTION OPIOIDS: WHAT YOU NEED TO KNOW Prescription opioids can be used to help relieve rthzkinx-bq-zfiokb pain and are often prescribed following a [...] as well, even when taken as directed: ??? Tolerance???meaning you might need to take more of the medication for the same pain relief ??? Physical dependence???meaning you have symptoms of withdrawal when a medication is stopped ??? Increased sensitivity to pain ??? Constipation ??? Nausea, vomiting, and dry mouth ??? Sleepiness and dizziness ??? Confusion ??? Depression ??? Low levels of testosterone that can result in lower sex drive, energy, and strength ??? Itching and sweating RISKS ARE GREATER WITH: ??? History of drug misuse, substance use disorder, or overdose ??? Mental health conditions (such as depression or anxiety) ??? Sleep apnea ??? Older age (65 years and older) ??? Avoid alcohol while taking prescription opioids. Also, unless specifically advised by your health care provider, medications to avoid include: ??? Benzodiazepines (such as Xanax or Valium) ??? Muscle relaxants (such as Soma or Flexeril) ??? Hypnotics (such as Ambien or Lunesta) ??? Other prescription opioids KNOW YOUR OPTIONS Talk to your health care provider about ways to manage your pain that don???t involve prescription opioids. Some of these options may actually work better and have fewer risks and side effects. Options may include: ??? Pain relievers such as acetaminophen, ibuprofen, and naproxen ??? Some medication that are also used for depression or seizures ??? Physical therapy and exercise ??? Cognitive behavioral therapy, a psychological, goal-directed approach, in which patients learn how to modify physical, behavioral, and emotional triggers of pain and stress. IF YOU ARE PRESCRIBED OPIOIDS FOR PAIN: ??? Never take opioids in greater amounts or more often than prescribed. ??? Follow up with your primary health care provider. o Work together to create a plan on how to manage your pain. o Talk about ways to help manage your pain that don???t involve prescription opioids. o Talk about any and all concerns and side effects. ??? Help prevent misuse and abuse o Never sell or share prescription opioids. o Never use another person???s prescription opioids. ??? Store prescription opioids in a secure place and out of reach (more content not included)... Normal [facility] UA with Cult Rflxon 07-25-20 24 Bacteria Auto Ql (U) Trace Normal Trace Fish er [facility] Comment on above: Performed By: #### 4 [id number] #### [facility] [address] [place] [address] Bilirubin Ql (U) Negative Normal Negative [facility] Comment on above: Performed By: #### 4 [id number] #### [facility] [address] [place] [address] Clarity (U) Turbid Abnormal Clear [facility] Comment on above: Performed By: #### 4 [id number] #### [facility] [address] [place] [address] Color (U) Yellow Normal Yellow [facility] Comment on above: Result Comment: Micr oscopic readings are only performed on those samples that meet specific criteria set forth by [facility]. Performed By: #### 4 [id number] #### [facility] [address] [place] [address] Epithelial cells.squamous Auto (Urine sed) [#/Area] >10 Invalid Interpretation Code [facility] Comment on above: Performed By: #### 4 [id number] #### [facility] [address] [place] [address] Glucose Ql (U) Negative Normal Negative [facility] Comment on above: Performed By: #### 4 [id number] #### [facility] [address] [place] [address] Hemoglobin Auto test strip (U) [Mass/Vol] Negative Normal Negative [facility] Comment on above: Performed By: #### 4 [id number] #### [facility] [address] [place] [address] Hyaline casts LM Ql (Urine sed) 0-3 Normal 0-3 [facility] Comment on above: Performed By: #### 4 [id number] #### [facility] [address] [place] [address] Ketones Auto test strip Ql (U) 3+ mg/dL Abnormal Negative [facility] Comment on above: Performed By: #### 4 [id number] #### [facility] [address] [place] [address] Leukocyte esterase Auto test strip Ql (U) 500 Jose/uL Abnormal Negative [facility] Comment on above: Performed By: #### 4 [id number] #### [facility] [address] [place] [address] Mucus Auto Ql (U) 1+ CD:[id number] Abnormal Negative F [facility] Comment on above: Performed By: #### 4 [id number] #### [facility] [address] [place] [address] Nitrite Auto test strip Ql (U) Negative Normal Negative [facility] Comment on above: Performed By: #### 4 [id number] #### [facility] [address] [place] [address] pH (U) 5.5 [pH] Invalid Interpretation Code 5.0-9.0 [facility] Comment on above: Performed By: #### 4 [id number] #### [facility] [address] [place] [address] Protein Ql (U) Trace Abnormal Negative [facility] Comment on above: Performed By: #### 4 [id number] #### [facility] [address] [place] [address] RBC Ql (U) 4-20 Abnormal 0-3 [facility] Comment on above: Performed By: #### 4 [id number] #### [facility] [address] [place] [address] Specific gravity (U) [Rel density] 1.035 Invalid Interpretation Code 1.005-1.030 [facility] Comment on above: Performed By: #### 4 [id number] #### [facility] [address] [place] [address] Urobilinogen (U) [Mass/Vol] 2 mg/dL Abnormal Negative [facility] Comment on above: Performed By: #### 4 [id number] #### [facility] [address] [place] [address] WBC Auto (Urine sed) [#/Area] 31-75 Abnormal 0-5 [facility] Comment on above: Performed By: #### 4 [id number] #### [facility] [address] [place] [address] Type of Urine collection method Clean Catch Normal [facility] Comment on above: Performed By: #### 4 [id number] #### [facility] [address] [place] [address] URINALYSISOrdered By: SYSTEM SYSTEM on 07-25-2024 Bacteria Auto Ql (U) Trace /HPF Normal Trace/HPF [facility] UA Auto SS Bilirubin Ql (U) Negative Normal Negativemg/ d L [facility] UA Auto SS Clarity (U) Turbid *ABN* (07/25/24 10:35 PM) Invalid Interpretation Code Clear [facility] UA Auto SS Color (U) Yellow 1 (07/25/24 10:35 PM) Normal Yellow [facility] UA Auto SS Comment on above: Interpretive Data: M icroscopic readings are only performed on those samples that meet specific criteria set forth by [facility]. Epithelial cells.squamous Auto (Urine sed) [#/Area] >10 graded/HPF Invalid Interpretation Code [facility] UA Auto SS Glucose Ql (U) Negative Normal Negativemg/d L [facility] UA Auto SS Hemoglobin Auto test strip (U) [Mass/Vol] Negative Normal Negativemg/d L [facility] UA Auto SS Hyaline casts LM Ql (Urine sed) 0-3 graded/LPF Normal 0-3graded/LP F [facility] UA Auto SS Ketones Auto test strip Ql (U) 3+ mg/dL Invalid Interpretation Code Negativemg/d L [facility] UA Auto SS Leukocyte esterase Auto test strip Ql (U) 500 Jose/uL Jose/uL Invalid Interpretation Code NegativeLeu/ uL [facility] UA Auto SS Mucus Auto Ql (U) 1+ graded/LPF Invalid Interpretation Code Negativegrad ed/LPF [facility] UA Auto SS Nitrite Auto test strip Ql (U) Negative Normal Negativemg/d L [facility] UA Auto SS pH (U) 5.5 *NA* (07/25/24 10:35 PM) Invalid Interpretation Code 5.0 - 9.0 [facility] UA Auto SS Protein Ql (U) Trace mg/dL Invalid Interpretation Code Negativemg/d L [facility] UA Auto SS RBC Ql (U) 4-20 graded/HPF Invalid Interpretation Code 0-3graded/HP F [facility] UA Auto SS Specific gravity (U) [Rel density] 1.035 *NA* (07/25/24 10:35 PM) Invalid Interpretation Code 1.005 - 1.030 [facility] UA Auto SS Urobilinogen (U) [Mass/Vol] 2 mg/dL Invalid Interpretation Code Negativemg/d L [facility] UA Auto SS WBC Auto (Urine sed) [#/Area] 31-75 graded/HPF Invalid Interpretation Code 0-5graded/HP F [facility] UA Auto SS URINALYSISOrdered By: Jena Shah on 07-25-2024 UA Spec Desc Clean Catch (07/25/24 10:35 PM) Normal [facility] UA Auto SS Work Phone: Urinalysis macro (dipstick) panel (U)on 07-12-2024 Bilirubin, UA Negative Negative - 4(70) +++ mg/dL [facility] Blood, UA Negative Negative - 50 Jorge/mcL [facility] Clarity, UA Clear [facility] Color, UA Yellow [facility] Glucose, UA Negative Negative - 1999(110) ++++ mg/dL [facility] Interpretation and review of laboratory results Abnormal [facility] Ketones, UA Negative Negative - 160(16) ++++ mg/dL [facility] Leukocytes, UA Positive Negative - 500+++ Jose/mcL [facility] Comment on above: small Nitrite, UA Negative Negative - Positive [facility] pH, UA 5.5 5 - 9 [facility] Protein, UA Negative Negative - 1999(20) ++++ mg/dL [facility] Spec Grav, UA 1.015 1 - 1.03 [facility] Urobilinogen, UA 0.2 0.2 - 12 mg/dL [facility] Urinalysis macro (dipstick) panel (U)on 06-28-2024 Bilirubin, UA Negative Negative - 4(70) +++ mg/dL [facility] Blood, UA Negative Negative - 50 Jorge/mcL [facility] Clarity, UA Clear [facility] Color, UA Yellow [facility] Glucose, UA Negative Negative - 2000(110) ++++ mg/dL [facility] Interpretation and review of laboratory results Abnormal [facility] Ketones, UA Negative Negative - 160(16) ++++ mg/dL [facility] Leukocytes, UA Positive Negative - 500+++ Jose/mcL [facility] Comment on above: small Nitrite, UA Negative Negative - Positive [facility] pH, UA 5.5 5 - 9 [facility] Protein, UA Negative Negative - 2000(20) ++++ mg/dL [facility] Spec Grav, UA 1.02 1 - 1.03 [facility] Urobilinogen, UA 0.2 0.2 - 12 mg/dL [facility] ALL CBC WITH AUTO DIFFon BASOPHILS ABSOLUTE AUTO 0 N [facility] Basophils/100 WBC (Bld) 0.6 % 0.2 - 2.0 % [facility] Eosinophils/100 WBC (Bld) 1.8 % 0.9 - 7.0 % [facility] Erythrocyte distribution width (RBC) [Ratio] 12.9 % 11.0 - 15.0 % [facility] Hematocrit (Bld) [Volume fraction] 28.6 % Low 36.0 - 48.0 % [facility] Hemoglobin (Bld) [Mass/Vol] 9.5 g/dL Low 12.0 - 16.0 g/dL [facility] IMMATURE GRANULOCYTES ABS AUTO 0.02 [facility] Immature granulocytes/100 WBC (Bld) 0.3 % 0.0 - 0.5 % [facility] Interpretation and review of laboratory results Abnormal [facility] LYMPHOCYTES ABSOLUTE AUTO 1.4 [facility] Lymphocytes/100 WBC (Bld) 22.8 % 20.5 - 60.0 % [facility] MCH (RBC) [Entitic mass] 29.6 pg 26. 7 - 34.0 pg [facility] MCHC (RBC) [Mass/Vol] 33.2 g/dL 29.9 - 35.2 g/dL [facility] MCV (RBC) [Entitic vol] 89.1 fL 81.0 - 99.0 fL [facility] MONOCYTES ABSOLUTE AUTO 0.5 N [facility] Monocytes/100 WBC (Bld) 8.3 % 1.7 - 12.0 % [facility] NEUTROPHILS ABSOLUTE AUTO 4.2 [facility] Neutrophils/100 WBC (Bld) 66.2 % 43.0 - 75.0 % [facility] Platelet mean volume (Bld) [Entitic vol] 9.9 fL 9.5 - 13.5 fL [facility] TBH EO # 0.1 [facility] TB PLT 222 [facility] RBC 3.21 Low [facility] WBC 6.3 [facility] Urinalysis macro (dipstick) panel (U)on 05-27-2024 Bilirubin, UA Negative Negative - 4(70) +++ mg/dL [facility] Blood, UA Negative Negative - 50 Jorge/mcL [facility] Clarity, UA Clear [facility] Color, UA Angelina [facility] Glucose, UA Negative Negative - 1999(110) ++++ mg/dL [facility] Interpretation and review of laboratory results Normal [facility] Ketones, UA Negative Negative - 160(16) ++++ mg/dL [facility] Leukocytes, UA Negative Negative - 500+++ Jose/mcL [facility] Nitrite, UA Negative Negative - Positive [facility] pH, UA 5.5 5 - 9 [facility] Protein, UA Negative Negative - 1999(20) ++++ mg/dL [facility] Spec Grav, UA 1.030 1 - 1.03 [facility] Urobilinogen, UA 0.2 0.2 - 12 mg/dL [facility] AFP, SERUM, OPEN SPINA BIFID Aon 05-01-2024 AFP MOM 1.93 . [facility] AFP VALUE 80.2 ng/mL . [facility] COMMENT: Comment . [facility] Comment on above: Sirisha Lopez , Ph.D., [facility] Director References: Available Upon Request. Multiples Of Median Cutoffs For AFP Elevations Contreras 2.5 Black 2.8 IDD 2.0 Twins 4.5 Abbreviation Definitions IDD - Insulin Dep Diabetes OSBR - Open Spina Bifida Risk For further inquiries contact [employer] [facility] at [phone]. This test was developed and its performance characteristics determined by [employer]. It has not been cleared or approved by the Food and Drug Administration. Performed at: [facility] [address], [place], [place] [id number] Health Services Manager: Elsa Faye Formerly [facility], Phone: [phone] GEST. AGE ON COLLECTION DATE 18.1 . weeks [facility] GESTAT. AGE BASED ON Ultrasound . [facility] Comment on above: 18.1 on 04/29/2024 Recalculations are not recommended when gestational dating by LMP and ultrasound are within 10 days. INSULIN DEP DIABETES No . [facility] INTERPRETATION Comment . [facility] Comment on above: Interpretation: Scre en Negative This result is screen negative for OSB. [...] Customer Services to discuss available options. The [employer] recommends amniocentesis be offered to women age 35 and older. [age] [place] [age] [facility] MULTIPLE GESTATION No . [facility] OSBR RISK 1 IN 943 . [facility] RACE . [facility] RESULTS Report . [facility] TEST RESULTS: Negative . [facility] WEIGHT 161 . lbs [facility] N N ULTRASOUND [id number] 1 18 N 1 Y 161 N N N N N White/ [facility] URETHRITIS/DISCHARGE PLUS VA GINITIS (HTRX)on 05-01-2024 ATOPOBIUM VAGINAE 18.833 Abnormal [facility] ATOPOBIUM VAGINAE Detected Abnormal [facility] BVAB 2,3 (BACTERIAL VAGINOSIS ASSOCIATED BACTERIA 2, 3); MOBILUNCUS SPP 0.000 [facility] BVAB 2,3 (BACTERIAL VAGINOSIS ASSOCIATED BACTERIA 2, 3); MOBILUNCUS SPP Not detected [facility] DYLAN ALBICANS, PARAPSILOSIS, TROPICALIS 0.000 [facility] DYLAN ALBICANS, PARAPSILOSIS, TROPICALIS Not detected [facility] DYLAN GLABRATA 0.000 [facility] DYLAN GLABRATA Not detected [facility] DYLAN KRUSEI 0.000 [facility] DYLAN KRUSEI Not detected [facility] CHLAMYDIA TRACHOMATIS 0.000 [facility] CHLAMYDIA TRACHOMATIS Not detected N [facility] GARDNERELLA VAGINALIS 0.000 [facility] GARDNERELLA VAGINALIS Not detected N [facility] Interpretation and review of laboratory results Abnormal [facility] MEGASPHAERA (TYPES 1, 2) 0.000 [facility] MEGASPHAERA (TYPES 1, 2) Not detected [facility] MYCOPLASMA GENITALIUM 0.000 NOM [facility] MYCOPLASMA GENITALIUM Not detected N [facility] NEISSERIA GONORRHOEAE 0.000 [facility] NEISSERIA GONORRHOEAE Not detected N [facility] TRICHOMONAS VAGINALIS 0.000 NOM [facility] TRICHOMONAS VAGINALIS Not detected N [facility] Urinalysis macro (dipstick) panel (U)on 04-29-2024 Bilirubin, UA Negative Negative - 4(70) +++ mg/dL [facility] Blood, UA Positive Negative - 50 Jorge/mcL [facility] Comment on above: trace-intact Clarity, UA Clear [facility] Color, UA Yellow [facility] Glucose, UA Negative Negative - 2000(110) ++++ mg/dL [facility] Interpretation and review of laboratory results Abnormal [facility] Ketones, UA Negative Negative - 160(16) ++++ mg/dL [facility] Leukocytes, UA Positive Negative - 500+++ Jose/mcL [facility] Comment on above: small Nitrite, UA Negative Negative - Positive [facility] pH, UA 6.5 5 - 9 [facility] Protein, UA Negative Negative - 2000(20) ++++ mg/dL [facility] Spec Grav, UA 1.015 1 - 1.03 [facility] Urobilinogen, UA 0.2 0.2 - 12 mg/dL [facility] ED Note-Physicianon 04-24-20 24 ED Note-Physician ED Note-Physician Basic Information Time [...] 18 weeks . She does follow with RACETRACK STEWARD. She has had no complications to date. [...] home to follow-up with her PCP and RACETRACK STEWARD. Patient was encouraged to return to the [...] Julius CROCKETT In 3 days 04/26/[address] [place] [address]- Business (1) Additional Instructions: Ambrose Urbano In 3 days 04/26/2024 EDT [address] [place] [address] [place] [address]- Business (1) Additional Instructions: Patient Education Abdominal [...] made to ensure accuracy, however, inadvertently computerized stylist assistant mistakes may be present. Appropriate healthcare PPE [...] (04/23/24 1 (more content not included)... Normal [facility] Comment on above: Result Comment: Elec tronically Signed By: Kenn TEE, Eagle\.br\Date and Time Signed: 04/23/24 14:52 EDT\.br\Electronically Co-Signed [...] Chem eGFR 135 mL/min/1.73 m2 Normal >=59mL/mi n/1 .73 m2 Remisol Chem Globulin (S) [Mass/Vol] 2.8 [...] [Mass/Vol] 6 mg/dL Normal 5 - 21 mg/d L [facility] Urea nitrogen/Creatinine [Mass ratio] 12 mg/mg Normal 10 - 20 Rem[facility] Chem ED Clinical Summaryon 2023 ED Clinical Summary ED Clinical Summary [place] [id number] ED Clinical Summary Person Information Name: ROQUE PIERSON Maribel/[facility] Age: 23 Years : 2000 Sex: Female Language: Bahraini PCP: Ambrose Urbano MD Marital Status: Phone: [phone] Visit Id: Visit Reason: Abdominal pain; Back [...] 04/23/2024 12:06:37 04/23/2024 12:06:37 04/23/2024 12:06:37 ADDRESS: [id number] [facility] [id number] [facility] DOC NOTES: MEDICAL INFORMATION: Prescriptions Given: Medications [...] Pain, Adult Follow up: With: Address: When: [facility], [address] [place] [address] , [place], [place] [id number] Business (1) In 3 days 04/26/2024 With: Address: When: Ambrose Urbano [address] [place] [address] [place] [address] Business (1) In 3 days 04/26/2024 DIAGNOSIS: Abdominal pain Normal [facility] ED Patient Summaryon 024 ED Patient Summary ED Patient Summary [address] [address] Patient Discharge Instructions Person Information Name: ROQUE PIERSON Age: 23 Years Arrival Date: 04/23/2024 09:36:31 Discharge Diagnosis: Abdominal pain Primary Care Physician: Ambrose Urbano MD Provider Information Primary Provider: Alfredito Brennan M.D. Advanced Meters Superintendent:[place] PA-C The exam and treatment you received in the Emergency Department were for an urgent problem and are not intended as complete care. It is important that you follow up with a doctor, nurse practitioner, or physician?s nurseryman assistant for ongoing care. If your symptoms become worse or you do not improve as expected and you are unable to reach your usual health care provider, you should return to the Emergency Department. We are available 24 hours a day. ROQUE PIERSON has been given the following list of patient education materials, prescriptions and follow-up instructions: Follow-up Instructions: With: Address: When: [address] [place] [address] Business (1) In 3 days 04/26/2024 With: Address: When: Ambrose Alfarovanita [address] [place] [address] [place] [phone] Business (1) In 3 days 04/26/2024 In the event that this physician does not participate in your insurance network, please consult with your insurance company to find a nearby participating provider. Patient Education Materials: Abdominal Pain, Adult A MESSAGE TO ALL PATIENTS REGARDING OPIOIDS PRESCRIPTION OPIOIDS: WHAT YOU NEED TO KNOW Prescription opioids can be used to help relieve qcjonjqg-ck-hcxsmn pain and are often prescribed following a [...] and overdose (more content not included)... Normal [facility] HEMATOLOGYOrdered By: SYSTEM SYSTEM on 04-23-2024 Basophils/100 [...] MCH (RBC) [Entitic mass] 29.5 pg Normal 27. 0 - 34.0 pg Remisol Heme MCHC (RBC) [...] Heme Platelets (Bld) [#/Vol] 202.0 E9/L Normal 150. 0 - 500.0 E9/L Remisol Heme RBC (Bld) [#/Vol] 4.0 E12/L Low 4.3 - 5.9 E12/L Remisol Heme WBC corrected for nucl RBC Auto (Bld) [#/Vol] 8.0 E9/L Normal 4.0 - 11.0 E9/L Remisol Heme URINALYSISOrdered By: SYSTEM SYSTEM on 04-23-2024 Bilirubin Ql (U) Negative Normal Negativemg/ d L [facility] UA Auto SS Clarity (U) Clear (04/23/24 10:23 AM) Normal Clear [facility] UA Auto SS Color (U) Light-Yellow 1 (04/23/24 10:23 AM) Normal Yellow FT UA Auto SS Comment on above: Interpretive Data: M icroscopic readings are only performed on those samples that meet specific criteria set forth by [facility]. Glucose Ql (U) Negative Normal Negativemg/d L [facility] UA Auto SS Hemoglobin Auto test strip (U) [Mass/Vol] Negative Normal Negativemg/d L [facility] UA Auto SS Ketones Auto test strip Ql (U) Negative Normal Negativemg/d L FT UA Auto SS Leukocyte esterase Auto test strip Ql (U) Negative Normal NegativeLeu/ uL [facility] [facility] UA Auto SS Nitrite Auto test strip Ql (U) Negative Normal Negativemg/d L [facility] UA Auto SS pH (U) 5.5 *NA* (04/23/24 10:23 AM) Invalid Interpretation Code 5.0 - 9.0 [facility] UA Auto SS Protein Ql (U) Negative Normal Negativemg/d L [facility] UA Auto SS Specific gravity (U) [Rel density] 1.013 *NA* (04/23/24 10:23 AM) Invalid Interpretation Code 1.005 - 1.030 [facility] UA Auto SS Urobilinogen (U) [Mass/Vol] Negative Normal Negativemg/d L [facility] UA Auto SS URINALYSISOrdered By: [place] on 04-23-2024 UA Spec Desc Clean Catch (04/23/24 10:23 AM) Normal [facility] UA Auto SS Work Phone: eGFRon 04-23-2024 eGFR 135 mL/min/1.73 m2 Normal >=59 [facility] Comment on above: Order Comment: Order added by Discern Expert. Performed By: #### 1 [id number] #### [facility] [address] [place] [address] CBC with Diffon 02-01-2024 Abs. Basophil 0.02 k/uL Normal 0.00-0.20 [facility] Comment on above: Performed By: #### C ODALYS Du, CDP #### [facility] [address] [place] [address] Health Services Manager: Alfred Chirinos MD Abs.Imm.Granulocyte 0.01 k/uL Normal 0.00-0.30 [facility] Comment on above: Performed By: #### C PODALYS, CDP #### [facility] [address] [place] [address] Health Services Manager: Alfred Chirinos MD Abs.Neutrophil (Seg) 3.51 k/uL Normal 2.5-7.0 [facility] Comment on above: Performed By: #### C PODALYS, CDP #### [facility] [address] [place], [place] 26[address] Health Services Manager: Alfred Chirinos MD Basophils/100 WBC (Bld) 0 % Normal 0-2 [facility] Comment on above: Performed By: #### C P, BHCG, CDP #### [facility] [address] [place] [id number] Health Services Manager: Alfred Chirinos MD Eosinophils (Bld) [#/Vol] 0.72 10*3/uL High 0.00-0.40 [facility] Comment on above: Performed By: #### C P, BHCG, CDP #### [facility] [address] [place] [id number] Health Services Manager: Alfred Chirinos MD Eosinophils/100 WBC (Bld) 11 % High 0-5 [facility] Comment on above: Performed By: #### C P, BHCG, CDP #### [facility] [address] [place] [phone] Health Services Manager: Alfred Chirinos MD Erythrocyte distribution width (RBC) [Ratio] 13.4 % Normal 12.1-15.2 [facility] Comment on above: Performed By: #### C P, BHCG, CDP #### [facility] [address] [place] [phone] Health Services Manager: Alfred Chirinos MD Hematocrit (Bld) [Volume fraction] 36.3 % Normal 36.0-46.0 [facility] Comment on above: Performed By: #### C P, BHCG, CDP #### [facility] [address] [place] [phone] Health Services Manager: Alfred Chirinos MD Hemoglobin (Bld) [Mass/Vol] 12.0 g/dL Normal 12.0-16.0 [facility] Comment on above: Performed By: #### C P, BHCG, CDP #### [facility] [address] [place] [address] Health Services Manager: Alfred Chirinos MD Immature granulocytes/100 WBC (Bld) 0 % Normal 0-5 [facility] Comment on above: Performed By: #### C P, BHCG, CDP #### [facility] [address] [place] [address] Health Services Manager: Alfred Chirinos MD Lymphocytes (Bld) [#/Vol] 1.80 10*3/uL Normal 1.00-4.80 [facility] Comment on above: Performed By: #### C P BHCG, CDP #### [facility] [address] [place] [address] Health Services Manager: Alfred Chirinos MD Lymphocytes/100 WBC (Bld) 27 % Normal 15-40 [facility] Comment on above: Performed By: #### C P BHCG, CDP #### [facility] [address] [place] [address] Health Services Manager: Alfred Chirinos MD MCH (RBC) [Entitic mass] 28.0 pg Normal 26.0-34.0 [facility] Comment on above: Performed By: #### C P BHCG, CDP #### [facility] [address] [place] [address] Health Services Manager: Alfred Chirinos MD MCHC (RBC) [Mass/Vol] 33.1 g/dL Normal 31.0-37.0 [facility] Comment on above: Performed By: #### C P, BHCG, CDP #### [facility] [address] [place] [address] Health Services Manager: Alfred Chirinos MD MCV (RBC) [Entitic vol] 84.8 fL Normal 80.0-100.0 [facility] Comment on above: Performed By: #### C P, BHCG, CDP #### [facility] [address] [place] [address] Health Services Manager: Alfred Chirinos MD Monocytes (Bld) [#/Vol] 0.59 10*3/uL Normal 0.00-1.00 [facility] Comment on above: Performed By: #### C P, BHCG, CDP #### [facility] [address] [place] [address] Health Services Manager: Alfred Chirinos MD Monocytes/100 WBC (Bld) 9 % High 4-8 M [facility] Comment on above: Performed By: #### C P, BHCG, CDP #### [facility] [address] [place] [address] Health Services Manager: Alfred Chirinos MD Neutrophil (Seg) 53 % Normal 47-75 [facility] Comment on above: Performed By: #### C P, BHCG, CDP #### [facility] [address] [place] [address] Health Services Manager: Alfred Chirinos MD Platelet mean volume (Bld) [Entitic vol] 10.0 fL Normal 6.0-12.0 [facility] Comment on above: Performed By: #### C P, BHCG, CDP #### [facility] [address] [place] [address] Health Services Manager: Alfred Chirinos MD Platelets (Bld) [#/Vol] 256 10*3/uL Normal 140-450 [facility] Comment on above: Performed By: #### C P, BHCG, CDP #### [facility] [address] [place] [address] Health Services Manager: Alfred Chirinos MD RBC (Bld) [#/Vol] 4.28 10*6/uL Normal 4.00-5.20 [facility] Comment on above: Performed By: #### C P, BHCG, CDP #### [facility] [address] [place], [place] [phone] Health Services Manager: Alfred Chirinos MD WBC (Bld) [#/Vol] 6.7 10*3/uL Normal 3.5-11.0 [facility] Comment on above: Performed By: #### C P, BHCG, CDP #### [facility] [address] [place], [place] [address] Health Services Manager: Alfred Chirinos MD Comp Metabolic Profon 2023 Albumin [Mass/Vol] 4.3 g/dL Normal 3.5-5.2 [facility] Comment on above: Performed By: #### C P, BHCG, CDP #### [facility] [address] [place], [place] [id number] Health Services Manager: Alfred Chirinos MD Alkaline Phos 77 U/L Normal 35-104 [facility] Comment on above: Performed By: #### C P, BHCG, CDP #### [facility] [address] [place], [place] [phone] Health Services Manager: Alfred Chirinos MD ALT [Catalytic activity/Vol] 15 U/L Normal 5-33 [facility] Comment on above: Performed By: #### C P, BHCG, CDP #### [facility] [address] [place], [place] [phone] Health Services Manager: Alfred Chirinos MD Anion gap [Moles/Vol] 13 mmol/L Normal 9-17 [facility] Comment on above: Performed By: #### C P, BHCG, CDP #### [facility] [address] [place], [place] [phone] Health Services Manager: Alfred Chirinos MD AST [Catalytic activity/Vol] 19 U/L Normal <32 [facility] Comment on above: Performed By: #### C P, BHCG, CDP #### [facility] [address] [place], [place] [phone] Health Services Manager: Alfred Chirinos MD Bilirubin [Mass/Vol] 0.3 mg/dL Normal 0.3-1.2 [facility] Comment on above: Performed By: #### C P, BHCG, CDP #### [facility] [address] [place] [address] Health Services Manager: Alfred Chirinos MD BUN/CRE Ratio 10 Normal 9-20 [facility] Comment on above: Performed By: #### C P, BHCG, CDP #### [facility] [address] [place], [place] [id number] Health Services Manager: Alfred Chirinos MD Calcium [Mass/Vol] 9.2 mg/dL Normal 8.6-10.4 [facility] Comment on above: Performed By: #### C P, BHCG, CDP #### [facility] [address] [place], [place] [phone] Health Services Manager: Alfred Chirinos MD Chloride [Moles/Vol] 104 mmol/L Normal 98-107 [facility] Comment on above: Performed By: #### C P, BHCG, CDP #### [facility] [address] [place], [place] [address] Health Services Manager: Alfred Chirinos MD CO2 [Moles/Vol] 21 mmol/L Normal 20-31 [facility] Comment on above: Performed By: #### C P, BHCG, CDP #### [facility] [address] [place] [address] Health Services Manager: Alfred Chirinos MD Creatinine [Mass/Vol] 0.6 mg/dL Normal 0.5-0.9 [facility] Comment on above: Performed By: #### C P, BHCG, CDP #### [facility] [address] [place], [place] [phone] Health Services Manager: Alfred Chirinos MD GFR/1.73 sq M.predicted among non-blacks MDRD (S/P/Bld) [Vol rate/Area] mL/min/{1.73_m2} Normal >60 [facility] Comment on above: Result Comment: These results [...] By: #### C P, BHCG, CDP #### [facility] [address] [place], [place] 1245690 Health Services Manager: Alfred Chirinos MD Glucose [Mass/Vol] 103 mg/dL High 70-99 [facility] Comment on above: Performed By: #### C P, BHCG, CDP #### [facility] [address] [place] [address] Health Services Manager: Alfred Chirinos MD Potassium [Moles/Vol] 4.0 mmol/L Normal 3.7-5.3 [facility] Comment on above: Performed By: #### C P, BHCG, CDP #### [facility] [address] [place] [address] Health Services Manager: Alfred Chirinos MD Protein [Mass/Vol] 7.2 g/dL Normal 6.4-8.3 [facility] Comment on above: Performed By: #### C P, BHCG, CDP #### [facility] [address] [place], [place] 6[address] Health Services Manager: Alfred Chirinos MD Sodium [Moles/Vol] 138 mmol/L Normal 135-144 [facility] Comment on above: Performed By: #### C P, BHCG, CDP #### [facility] [address] [place] [address] Health Services Manager: Alfred Chirinos MD Urea nitrogen [Mass/Vol] 6 mg/dL Normal 6-20 [facility] Comment on above: Performed By: #### C P, DEVONCG, CDP #### [facility] [address] [place] [address] Health Services Manager: Alfred Chirinos MD HCG, Quanton 02-01-2024 HCG, Quant 6123.0 mIU/mL High <5 [facility] Comment on above: Result Comment: Non-preg premeno <=5 Postmeno <=8 Male <=3 If HCG results do not concur with clinical observations, additional testing to confirm results is recommended. Performed By: #### C PODALYS, CDP #### [facility] [address] [place], [place] [address] Health Services Manager: Alfred Chirinos MD Urinalysis, Routineon 2023 Bilirubin, SemiQt,Ur Negative Normal NEG [facility] Comment on above: Performed By: #### U A #### [facility] [address] [place], [place] [phone] Health Services Manager: Alfred Chirinos MD Blood, Urine Negative Normal NEG [facility] Comment on above: Performed By: #### U A #### [facility] [address] [place], [place] [address] Health Services Manager: Alfred Chirinos MD Clarity (U) Clear Normal CLEAR [facility] Comment on above: Performed By: #### U A #### [facility] [address] [place], [place] [address] Health Services Manager: Alfred Chirinos MD Color (U) Yellow Normal YEL [facility] Comment on above: Performed By: #### U A #### [facility] [address] [place], [place] [address] Health Services Manager: Alfred Chirinos MD Comment Normal [facility] Comment on above: Performed By: #### U A #### [facility] [address] [place] [address] Health Services Manager: Alfred Chirinos MD Glucose Ql (U) Negative Normal NEG [facility] Comment on above: Performed By: #### U A #### [facility] [address] [place] [address] Health Services Manager: Alfred Chirinos MD Ketones Ql (U) Negative Normal NEG [facility] Comment on above: Performed By: #### U A #### [facility] [address] [place] [address] Health Services Manager: Alfred Chirinos MD Leukocyte esterase Test strip Ql (U) Negative Normal NEG [facility] Comment on above: Performed By: #### U A #### [facility] [address] [place] [address] Health Services Manager: Alfred Chirinos MD Nitrite,Ur Negative Normal NEG [facility] Comment on above: Performed By: #### U A #### [facility] [address] [place] [address] Health Services Manager: Alfred Chirinos MD PH,Ur 7.0 Normal 5.0-8.0 [facility] Comment on above: Performed By: #### U A #### [facility] [address] [place] [address] Health Services Manager: Alfred Chirinos MD Protein Ql (U) Negative Normal NEG [facility] Comment on above: Performed By: #### U A #### [facility] [address] [place] [address] Health Services Manager: Alfred Chirinos MD Spec. [place],Ur 1.010 Normal 1.005-1.030 [facility] Comment on above: Performed By: #### U A #### [facility] [address] [place] [address] Health Services Manager: Alfred Chirinos MD Urobilinogen,Ur Normal Normal 0.0-1.0 [facility] Comment on above: Performed By: #### U A #### [facility] [address] [place], [place] [address] Health Services Manager: Alfred Chirinos MD Cult,Urineon 12-15-2023 Cult,Urine Specimen Description .URINE, MIDSTREAM Culture NO SIGNIFICANT GROWTH Report Status FINAL 12/15/2023 Normal [facility] Comment on above: Performed By: #### U RC #### [facility] [address] [place], [place] [id number] Health Services Manager: Kiko Ortega MD [facility] [address] [place], [place] [address] Health Services Manager: Alfred Chirinos MD Urinalysis, Routineon 2023 Bilirubin, SemiQt,Ur Negative Normal NEG [facility] Comment on above: Performed By: #### U A, UMICAO #### [facility] [address] [place], [place] [address] Health Services Manager: Alfred Chirinos MD Blood, Urine Negative Normal NEG [facility] Comment on above: Performed By: #### U A, UMICAO #### [facility] [address] [place], [place] [address] Health Services Manager: Alfred Chirinos MD Clarity (U) Clear Normal CLEAR [facility] Comment on above: Performed By: #### U A, UMICAO #### [facility] [address] [place], [place] [address] Health Services Manager: Alfred Chirinos MD Color (U) Yellow Normal YEL [facility] Comment on above: Performed By: #### U A, UMICAO #### [facility] [address] [facility] [place] [address] Health Services Manager: Alfred Chirinos MD Comment Normal [facility] Comment on above: Performed By: #### U A, UMICAO #### [facility] [address] [place] [address] Health Services Manager: Alfred Chirinos MD Glucose Ql (U) Negative Normal NEG [facility] Comment on above: Performed By: #### U A, UMICAO #### [facility] [address] [place] [address] Health Services Manager: Alfred Chirinos MD Ketones Ql (U) Negative Normal NEG [facility] Comment on above: Performed By: #### U A, UMICAO #### [facility] [address] [place] [address] Health Services Manager: Alfred Chirinos MD Leukocyte esterase Test strip Ql (U) 2+ Abnormal NEG [facility] Comment on above: Performed By: #### U A, UMICAO #### [facility] [address] [place] [address] Health Services Manager: Alfred Chirinos MD Nitrite,Ur Negative Normal NEG [facility] Comment on above: Performed By: #### U A, UMICAO #### [facility] [address] [place] [address] Health Services Manager: Alfred Chirinos MD PH,Ur 6.0 Normal 5.0-8.0 [facility] Comment on above: Performed By: #### U A, UMICAO #### [facility] [address] [place] [address] Health Services Manager: Alfred Chirinos MD Protein Ql (U) TRACE Abnormal NEG [facility] Comment on above: Performed By: #### U A, UMICAO #### [facility] [address] [place] [address] Health Services Manager: Alfred Chirinos MD Spec. [place],Ur 1.015 Normal 1.005-1.030 [facility] Comment on above: Performed By: #### U A, UMICAO #### [facility] [address] [place], [place] [address] Health Services Manager: Alfred Chirinos MD Urobilinogen,Ur Normal Normal 0.0-1.0 [facility] Comment on above: Performed By: #### U A, UMICAO #### [facility] [address] [place] [address] Health Services Manager: Alfred Chirinos MD Urinalysis,Microon 4 ----- Normal [facility] Comment on above: Performed By: #### U A, UMICAO #### [facility] [address] [place], [place] [id number] Health Services Manager: Alfred Chirinos MD Epithelial cells LM Ql (Urine sed) 0 TO 2 Normal [facility] Comment on above: Performed By: #### U A, UMICAO #### [facility] [address] [place], [place] [address] Health Services Manager: Alfred Chirinos MD Urine RBC's 0 TO 2 Normal 0-2 [facility] Comment on above: Performed By: #### U A, UMICAO #### [facility] [address] [place], [place] [id number] Health Services Manager: Alfred Chirinos MD Urine WBC's 2 TO 5 Normal 0 [facility] Comment on above: Performed By: #### U A, UMICAO #### [facility] [address] [place], [place] [id number] Health Services Manager: MD Aramis Murray 11-14-2023 L Specimen: [id number] Received: 11/17/23 Status: SAEED Smithq Num: [id number] Spec Type: Surgical Subm Dr: Julius Crockett Tissues: A Products of Conception - Spontaneous or Missed (POC) Procedures: HE/3, Gross/Micro L4 Age/ Patient Sex Location Account Attending Physician Roque Pierson LABELL [id number] Julius Crockett SPEC NUM: [id number] RECD: 11/17/23 STATUS: SAEED ELIZONDO NUM: [id number] IAN: 11/14/[address] [facility] [address]: Julius Crockett ENTERED: 11/17/23 [facility] DR: [place],Lab SPEC TYPE: Surgical DEPT: LEENA [...] are identified. Membranes and decidua are identified.. Training Project Manager sections are submitted in three cassettes labeled A1-A3. CPT Codes 43493 Specimen: [id number] Received: 11/17/23 Status: SAEED Uriel Num: [id number] Spec Type: Surgical Subm Dr: Julius Crockett Tissues: A Products of Conception - Spontaneous or Missed (POC) Procedures: HE/3, Gross/Micro L4 Patient: Roque Pierson [id number] (Continued) Signed (signature on file) Patience Rae MD 11/18/23 1429 Normal [facility] Auto Diffon 06-05-2023 Basophils/100 WBC (Bld) 0.7 % Normal 0.0-2.0 F [facility] Comment on above: Order Comment: Order Added by Discern Expert. Result Comment: Ian ection date/time has been modified to: 16:41:00. Previous collection date/time: 16:48:00. Performed By: #### 2 [id number], [id number], [id number], [id number] ####[facility] [address] [place] [address] Basophils/Leukocytes Auto (Bld) [Pure # fraction] 0.0 E9/L Normal 0.0-0.2 [facility] Comment on above: Order Comment: Order Added by Discern Expert. Result Comment: Ian ection date/time has been modified to: 16:41:00. Previous collection date/time: 16:48:00. Performed By: #### 2 [id number], [id number], [id number], [id number] ####[facility] [address] [place] [address] Eosinophils/100 WBC (Bld) 1.0 % Normal 0.0-8.0 [facility] Comment on above: Order Comment: Order Added by Discern Expert. Result Comment: Ian ection date/time has been modified to: 16:41:00. Previous collection date/time: 16:48:00. Performed By: #### 2 [id number], [id number], [id number], [id number] ####[address] [place] [address] Eosinophils/Leukocytes Auto (Bld) [Pure # fraction] 0.1 E9/L Normal 0.0-0.5 [facility] Comment on above: Order Comment: Order Added by Discern Expert. Result Comment: Ian ection date/time has been modified to: 16:41:00. Previous collection date/time: 16:48:00. Performed By: #### 2 [id number], [id number], [id number], [id number] ####[address] [address] Lymphocytes/100 WBC (Bld) 19.4 % Normal 14.0-50.0 [facility] Comment on above: Order Comment: Order Added by Discern Expert. Result Comment: Ian ection date/time has been modified to: 16:41:00. Previous collection date/time: 16:48:00. Performed By: #### 2 894029, [id number], [id number], [id number] ####[address] [place] [address] Lymphocytes/Leukocytes Auto (Bld) [Pure # fraction] 1.2 E9/L Normal 1.0-4.0 [facility] Comment on above: Order Comment: Order Added by Discern Expert. Result Comment: Ian ection date/time has been modified to: 16:41:00. Previous collection date/time: 16:48:00. Performed By: #### 2 [id number], [id number], [id number], [id number] ####[facility] [address] [place] [address] Monocytes/100 WBC (Bld) 8.8 % Normal 4.0-14.0 [facility] Comment on above: Order Comment: Order Added by Discern Expert. Result Comment: Ian ection date/time has been modified to: 16:41:00. Previous collection date/time: 16:48:00. Performed By: #### 2 [id number], [id number], [id number], [id number] ####[address] [place] [address] Monocytes/Leukocytes Auto (Bld) [Pure # fraction] 0.5 E9/L Normal 0.2-1.0 [facility] Comment on above: Order Comment: Order Added by Discern Expert. Result Comment: Ian ection date/time has been modified to: 16:41:00. Previous collection date/time: 16:48:00. Performed By: #### 2 [id number], [id number], [id number], [id number] ####[address] [place] [address] Neutrophils/100 WBC (Bld) 70.1 % Normal 36.0-75.0 [facility] Comment on above: Order Comment: Order Added by Discern Expert. Result Comment: Ian ection date/time has been modified to: 16:41:00. Previous collection date/time: 16:48:00. Performed By: #### 2 [id number], [id number], 8248004, 6082131 ####[address] [place] [address] Neutrophils/Leukocytes Auto (Bld) [Pure # fraction] 4.2 E9/L Normal 2.0-7.5 [facility] Comment on above: Order Comment: Order Added by Discern Expert. Result Comment: Ian ection date/time has been modified to: 16:41:00. Previous collection date/time: 16:48:00. Performed By: #### 2 [id number], [id number], [id number], [id number] ####[facility] [address] [place] [address] BMPon 06-05-2023 Creatinine [Mass/Vol] 0.7 mg/dL Normal 0.5-1.3 [facility] Comment on above: Performed By: #### 2 363886, [id number], [id number], [id number] ####[facility] [address] [place] [address] Urea nitrogen [Mass/Vol] 5 mg/dL Normal 5-21 [facility] Comment on above: Performed By: #### 2 061280, [id number], 7152466, 4579856 ####[facility] [address] [place] [address] Urea nitrogen/Creatinine [Mass ratio] 7 No Units Low 10-20 [facility] Comment on above: Performed By: #### 2 556632, [id number], [id number], [id number] ####[facility] [address] [place] [address] Anion gap [Moles/Vol] 9 mmol/L Normal 6-16 [facility] Comment on above: Performed By: #### 2 062787, 47001282, 5394973, [id number] ####[facility] [address] [place] [address] Calcium [Mass/Vol] 9.3 mg/dL Normal 8.9-11.1 [facility] Comment on above: Performed By: #### 2 791566, [id number], 5785725, 4615549 ####[facility] [address] [place] [address] Chloride [Moles/Vol] 110 mmol/L Normal 101-111 [facility] Comment on above: Performed By: #### 2 [id number], [id number], 8364829, 8640522 ####[facility] [address] [place] [address] CO2 [Moles/Vol] 26 mmol/L Normal 21-31 [facility] Comment on above: Performed By: #### 2 585836, 35075301, 5166913, 2697492 ####[facility] [address] [place] [address] Glucose [Mass/Vol] 106 mg/dL Normal 55-199 [facility] Comment on above: Result Comment: If t his glucose result represents a fasting glucose, interpretation should refer to the following reference range: 55-99 mg/dL Performed By: #### 2 813928, 62907219, 4810316, 7842440 ####[facility] [address] [place] [address] Potassium [Moles/Vol] 3.9 mmol/L Normal 3.5-5.3 [facility] Comment on above: Performed By: #### 2 875755, 51298608, 6563746, 1589806 ####[facility] [address] [place] [address] Sodium [Moles/Vol] 141 mmol/L Normal 135-145 [facility] Comment on above: Performed By: #### 2 587025, 76320646, 0035414, 4609177 ####[facility] [address] [place] [address] CBC w/ Auto Diffon 3 Erythrocyte distribution width (RBC) [Ratio] 13.9 % Normal 10.9-14.2 [facility] Comment on above: Result Comment: Ian ection date/time has been modified to: 16:41:00. Previous collection date/time: 16:48:00. Performed By: #### 2 346491, 47936643, 3451070, 3550932 ####[facility] [address] [place] [address] Hematocrit (Bld) [Volume fraction] 38.4 % Normal 34.0-46.0 [facility] Comment on above: Result Comment: Ian ection date/time has been modified to: 16:41:00. Previous collection date/time: 16:48:00. Performed By: #### 2 775582, 21688900, 6803927, 3015096 ####[facility] [address] [place] [address] Hemoglobin (Bld) [Mass/Vol] 12.8 g/dL Normal 12.0-16.0 [facility] Comment on above: Result Comment: Ian ection date/time has been modified to: 16:41:00. Previous collection date/time: 16:48:00. Performed By: #### 2 172035, 32501155, 6660035, 6739685 ####[facility] [address] [place] [address] MCH (RBC) [Entitic mass] 27.6 pg Normal 27.0-34.0 [facility] Comment on above: Result Comment: Ian ection date/time has been modified to: 16:41:00. Previous collection date/time: 16:48:00. Performed By: #### 2 050494, 61706852, 0453586, 1332836 ####[facility] [address] [place] [address] MCHC (RBC) [Mass/Vol] 33.3 g/dL Normal 31.4-36.0 [facility] Comment on above: Result Comment: Ian ection date/time has been modified to: 16:41:00. Previous collection date/time: 16:48:00. Performed By: #### 2 450403, 81600731, 8988449, 3287837 ####[facility] [address] [place] [address] MCV (RBC) [Entitic vol] 82.7 fL Normal 80.0-100.0 F [facility] Comment on above: Result Comment: Ian ection date/time has been modified to: 16:41:00. Previous collection date/time: 16:48:00. Performed By: #### 2 888617, 26700824, 3686688, 4655725 ####[facility] [address] [place] [address] Platelet mean volume (Bld) [Entitic vol] 7.8 fL Normal 6.4-10.8 [facility] Comment on above: Result Comment: Ian ection date/time has been modified to: 16:41:00. Previous collection date/time: 16:48:00. Performed By: #### 2 978925, 26169925, 3394830, 1552879 ####[facility] [address] [place] [address] Platelets (Bld) [#/Vol] 271.0 E9/L Normal 150.0-500.0 [facility] Comment on above: Result Comment: Ian ection date/time has been modified to: 16:41:00. Previous collection date/time: 16:48:00. Performed By: #### 2 302071, 73815724, 9304801, 8587021 ####[facility] [address] [place] [address] RBC (Bld) [#/Vol] 4.6 E12/L Normal 4.3-5.9 [facility] Comment on above: Result Comment: Ian ection date/time has been modified to: 16:41:00. Previous collection date/time: 16:48:00. Performed By: #### 2 080071, 65069579, 1067572, 4291802 ####[facility] [address] [place] [address] WBC corrected for nucl RBC Auto (Bld) [#/Vol] 6.1 E9/L Normal 4.0-11.0 [facility] Comment on above: Result Comment: Ina ection date/time has been modified to: 16:41:00. Previous collection date/time: 16:48:00. Performed By: #### 2 734013, 37417627, 7347139, 8677989 ####[facility] [address] [place] [id number] CHEMISTRYOrdered By: SYSTEM SYSTEM on 06-05-2023 Anion [...] (S/P/Bld) [Vol rate/Area] 126 mL/min/1.73 m2 Normal >=59mL/min/1 .73 m2 [facility] Chem S Comment on above: Interpretive Data: C hronic kidney disease could be indicated at eGFR's of less than 60 mL/min/1.73m2. Kidney failure is indicated at less than 15 mL/min/1.73m2. Glucose [Mass/Vol] 106 mg/dL Normal 55 - 199 mg/dL [facility] Remisol Comment on above: Interpretive Data: I f this glucose result represents a fasting glucose, interpretation should refer to the following reference range: 55-99 mg/dL Potassium [Moles/Vol] 3.9 mmol/L Normal 3.5 - 5.3 mmol/L FT [facility] Sodium [Moles/Vol] 141 mmol/L Normal 135 - 145 mmol/L [facility] Urea nitrogen [Mass/Vol] 5 mg/dL Normal 5 - 21 mg/d L [facility] Urea nitrogen/Creatinine [Mass ratio] 7 [...] DO Transcribed by: KG Technologist: KIRSTIE Andrea [facility] Consent for Treatmenton 05-25 Consent for Treatment [id number] 31 [id number] #1.00[facility] Discharge Instructionson Discharge Instructions [id number] 310 [id number] #1.00[facility] ED Clinical Summaryon 2022 ED Clinical Summary [place] [address] ED Clinical Summary Person Information Name: ROQUE PIERSON Maribel/[facility] Age: 22 Years : 2000 Sex: Female Language: Bahraini PCP: Ambrose Urbano MD Marital Status: Single [...] 06/05/2023 18:41:46 06/05/2023 18:41:46 06/05/2023 18:41:46 ADDRESS: [address] [place] [id number] PHYS DOC NOTES: MEDICAL INFORMATION: Prescriptions Given: [...] Follow up: With: Address: When: Ambrose Urbano [address] [place] [address], [place] [address] [place] [address] Business (1) In 3 days [...] or worsening symptoms. DIAGNOSIS: Headache; Nauseous Normal [facility] ED Note-Physicianon 06-05-20 ED Note-Physician Basic Information [...] and Complexity of Problems Differential Diagnosis: [] [facility] Data External documents reviewed: Not applicable [...] eGFR Influenza A&B Ag Rapid COVID Antigen ([facility]) U Beta Hcg Qual Disposition Plan Patient Discharge Condition Stable Discharge Disposition To home Discharge Prescription List Prescriptions No active prescription medications Follow-up With When Contact Information Ambrose Urbano In 3 days 06/08/2023 EDT [address] [place] [phone] Business (1) Additional Instructions: Call the office [...] or worsening (more content not included)... Normal [facility] Comment on above: Result Comment: Elec tronically [...] with your condition: Managing pain ? Take yfbz-xue-wxzbrqo and prescription medicines only as told by [...] Reviewed: 01/09/2022 Elsevier Patient Education ? 2022 [employer] Normal [facility] ED Patient Summaryon 023 ED Patient Summary [address] [address] Patient Discharge Instructions Person Information Name: ROQUE PIERSON Age: 22 Years Arrival Date: 06/05/2023 15:20:08 Discharge Diagnosis: Headache; Nauseous Primary Care Physician: Ambrose Urbano MD Provider Information Primary Provider: Fercho Jaime DO [employer] Superintendent:Víctor Lind PA-C The exam and treatment you received in the Emergency Department were for an urgent problem and are not intended as complete care. It is important that you follow up with a doctor, nurse practitioner, or physician?s nurseryman assistant for ongoing care. If your symptoms [...] Follow-up Instructions: With: Address: When: Ambrose Urbano [address] [place] [address], [facility] [address] [place] [phone] Foodist (1) In 3 days 06/08/2023 Comments: Call [...] opioids can be used to help relieve xpsrdoth-ia-wfwjkv pain and are often prescribed following a [...] ? Safe (more content not included)... Normal [facility] HEMATOLOGYOrdered By: SYSTEM SYSTEM on 06-05-2023 Basophils/100 WBC (Bld) 0.7 % Normal 0.0 - 2.0 % [facility] HemeAutoSS Comment on above: Result Comment: Ian [...] modified to: 16:41:00. Previous collection date/time: 16:48:00. Eosinophils/Leukocytes Auto (Bld) [Pure # fraction] 0.1 E9/L Normal 0.0 - 0.5 E9/L [facility] Comment on above: Result Comment: Ian ection date/time has been modified to: 16:41:00. Previous collection date/time: 16:48:00. Lymphocytes/100 WBC (Bld) 19.4 % Normal 14.0 - 50.0 % [facility]eAuto[facility] Comment on above: Result Comment: Ian ection date/time has been modified to: 16:41:00. Previous collection date/time: 16:48:00. Lymphocytes/Leukocytes Auto (Bld) [Pure # fraction] 1.2 E9/L [...] modified to: 16:41:00. Previous collection date/time: 16:48:00. Neutrophils/Leukocytes Auto (Bld) [Pure # fraction] 4.2 E9/L [...] MCH (RBC) [Entitic mass] 27.6 pg Normal 27. 0 - 34.0 pg [facility] Comment on [...] 16:48:00. Platelets (Bld) [#/Vol] 271.0 E9/L Normal 150. 0 - 500.0 E9/L [facility]eAuto[facility] Comment on [...] 3 Influenzae A Ag Negative Normal Negative Gonzalez [facility] Comment on above: Performed By: #### 2 840531, 1115618, 9318219, 9971370, 43429493, 9235032, 0398623 #### [facility] [address] [place] [address] Influenzae B Ag Negative Normal Negative Gonzalez [facility] Comment on above: Result Comment: Test sensitivity and specificity vary for age group, specimen type, antigen types, and prevalence of disease. Test results must be evaluated in conjunction with other clinical data available to the physician. Individuals who received nasally administered Influenza A vaccine may have positive test results up to 3 days after vaccination. Performed By: #### 2 676540, 6338212, 2584519, 5778624, 13336066, 8139014, 4108121 #### [facility] Laboratory [address] [place] [address] MICRO OTHER TESTSOrdered By: Kirsten Faustin on 06-05-2023 Influenzae A Ag Negative (06/05/23 4:52 PM) Normal Negative [facility] Sero Influenzae B Ag Negative 1 (06/05/23 4:52 PM) Normal Negative [facility] Comment on above: Interpretive Data: [...] NEG Ctl Pass (06/05/23 4:52 PM) Normal [facility] Man Sero Rapid COV Int POS Ctl Pass (06/05/23 4:52 PM) Normal [facility] Sero SARS-CoV+SARS-CoV-2 (COVID-19) Ag IA.rapid Ql (Resp) Not Detected 24 (06/05/23 4:52 PM) Normal Not Detected [facility] Man Sero Comment on above: Interpretive Data: Libia he [employer] Veritor System for Rapid Detection of SARS-CoV-2 [...] For in vitro diagnostic use. In the [facility], only for use under an Emergency Use [...] other viruses or pathogens; and, in the [facility], this test is only authorized for the duration of the declaration that circumstances exist justifying the authorization of emergency use of in vitro diagnostics for detection and/or diagnosis of the virus that causes COVID-19 under Section 564(b)(1) of the Act, 21 U.S.C. 360bbb-3(b)(1), unless the authorization is terminated or revoked sooner. Rapid COVID Antigen ([facility])on 06-05-2023 Rapid COV Int NEG Ctl Pass Normal [facility] Comment on above: Performed By: #### 2 935147, 0890284, 3948207, 4077142, 47760454, 7818187, 1406013 #### [facility] [address] [place] [address] Rapid COV Int POS Ctl Pass Normal [facility] Comment on above: Performed By: #### 2 066920, 6739568, 9403408, 4056679, 56443051, 8402069, 5117579 #### [facility] [address] [place] [address] SARS-CoV+SARS-CoV-2 (COVID-19) Ag IA.rapid Ql (Resp) Not detected Normal Not Detected [facility] Comment on above: Result Comment: The [employer] Veritor? System for Rapid Detection of SARS-CoV-2 is [...] or revoked sooner. Performed By: #### 2 023538, 8715868, 7808543, 4665990, 44966280, 0161006, 0686439 #### [facility] [address] [place] [address] SEROLOGYOrdered By: Kirsten amor on 06-05-2023 HCG.beta subunit (U) [Moles/Vol] Negative Normal [facility] Man Sero U BetaHcg Qualon 06-05-2023 HCG.beta subunit (U) [Moles/Vol] Negative Normal [facility] Comment on above: Performed By: #### 2 382326, 4519286, 5861148, 2939685, 07567973, 6582737, 9323988 #### [facility] [address] [place] [address] eGFRon 06-05-2023 GFR/1.73 sq M.predicted among non-blacks MDRD (S/P/Bld) [Vol rate/Area] 126 mL/min/1.73 m2 Normal >=59 [facility] Comment on above: Order Comment: Order added by Discern Expert. Result Comment: Ramp Manager emil kidney disease could be indicated at eGFR's of less than 60 mL/min/1.73m2. Kidney failure is indicated at less than 15 mL/min/1.73m2. Performed By: #### 2 668415, 70093134, 0577250, 0877701 ####[facility] [address] [place] [address] Cult,Urineon 03-25-2023 Cult,Urine Specimen Description .URINE, MIDSTREAM Culture NO SIGNIFICANT GROWTH Report Status FINAL 03/25/2023 Normal [facility] Comment on above: Performed By: #### U RC #### [facility] [address] [place], [place] [id number] Health Services Manager: Kiko Ortega MD [facility] [address] [place] [address] Health Services Manager: Alfred Chirinos MD Urinalysis, Routineon 2022 Bilirubin, SemiQt,Ur Negative Normal NEG [facility] Comment on above: Performed By: #### U MICAO, UA #### [facility] [address] [place] [address] Health Services Manager: Alfred Chirinos MD Blood, Urine Negative Normal NEG [facility] Comment on above: Performed By: #### U MICAO, UA #### [facility] [address] [place] [address] Health Services Manager: Alfred Chirinos MD Clarity (U) Clear Normal CLEAR [facility] Comment on above: Performed By: #### U MICAO, UA #### [facility] [address] [place] [address] Health Services Manager: Alfred Chirinos MD Color (U) Yellow Normal YEL [facility] Comment on above: Performed By: #### U MICAO, UA #### [facility] [address] [place] [address] Health Services Manager: Alfred Chirinos MD Comment Normal [facility] Comment on above: Performed By: #### U MICAO, UA #### [facility] [address] [place] [address] Health Services Manager: Alfred Chirinos MD Glucose Ql (U) Negative Normal NEG [facility] Comment on above: Performed By: #### U MICAO, UA #### [facility] [address] [place] [address] Health Services Manager: Alfred Chirinos MD Ketones Ql (U) TRACE Abnormal NEG [facility] Comment on above: Performed By: #### U MICAO, UA #### [facility] [address] [place] [address] Health Services Manager: Alfred Chirinos MD Leukocyte esterase Test strip Ql (U) 1+ Abnormal NEG [facility] Comment on above: Performed By: #### U MICAO, UA #### [facility] [address] [place] [address] Health Services Manager: Alfred Chirinos MD Nitrite,Ur Negative Normal NEG [facility] Comment on above: Performed By: #### U MICAO, UA #### [facility] [address] [place] [address] Health Services Manager: Alfred Chirinos MD PH,Ur 6.5 Normal 5.0-8.0 [facility] Comment on above: Performed By: #### U TONYO, UA #### [facility] [address] [place] [address] Health Services Manager: Alfred Chirinos MD Protein Ql (U) TRACE Abnormal NEG [facility] Comment on above: Performed By: #### U MICAO, UA #### [facility] [address] [place] [address] Health Services Manager: Alfred Chirinos MD Spec. [place],Ur 1.015 Normal 1.005-1.030 [facility] Comment on above: Performed By: #### U MICAO, UA #### [facility] [address] [place] [address] Health Services Manager: Alfred Chirinos MD Urobilinogen,Ur Normal Normal 0.0-1.0 [facility] Comment on above: Performed By: #### U MICAO, UA #### [facility] [address] [place], [place] [address] Health Services Manager: Alfred Chirinos MD Urinalysis,Microon 3 ----- Normal [facility] Comment on above: Performed By: #### U MICAO, UA #### [facility] [address] [place] [address] Health Services Manager: Alfred Chirinos MD Bacteria RARE Abnormal NONE [facility] Comment on above: Performed By: #### U MICAO, UA #### [facility] [address] [place] [address] Health Services Manager: Alfred Chirinos MD Urine RBC's 0 TO 2 Normal 0-2 [facility] Comment on above: Performed By: #### U MICAO, UA #### [facility] [address] [place], [place] [id number] Health Services Manager: Alfred Chirinos MD Urine WBC's 0 TO 2 Normal 0 [facility] Comment on above: Performed By: #### U KEVIN COOPER #### [facility] [address] [place] [address] Health Services Manager: Alfred Chirinos MD US PREG ANATOMY SINGLEon US PREG ANATOMY SINGLE EXAMINATION: US P REG ANATOMY SINGLE HISTORY: Routine care COMPARISON: Ultrasound [...] by: JULIUS RICKS Date: 2022-12-08 22:36 Normal [facility] AFP MATERNAL FOR SPINA BIFID Aon 12-07-2022 AFP MoM 1.38 Normal [facility] Comment on above: Performed By: #### A FPMAT #### [facility] [address] [place] [address] Dr. Tasha Whalen AFP Value 88.5 ng/mL Normal [facility] Comment on above: Performed By: #### A FPMAT #### [facility] [address] [place] [address] [address] Tasha Whalen AFP, Serum for Spina Bifida Report Normal [facility] Comment on above: Performed By: #### A FPMAT #### [facility] [address] [place] [address] [address] Tasha Whalen Comment Comment Normal [facility] Comment on above: Result Comment: Nakia Lopez, Ph.D., [facility] Director . References: Available Upon Request. . Multiples Of Median Cutoffs For AFP Elevations Contreras 2.5 Black 2.8 IDD 2.0 Twins 4.5 Abbreviation Definitions IDD - Insulin Dep Diabetes OSBR - Open Spina Bifida Risk . For further inquiries contact [facility] at [phone]. . This test was developed and its performance characteristics determined by [employer]. It has not been cleared or approved by the Food and Drug Administration. Performed By: #### A FPMAT #### [facility] [address] [place] [address] [address] Tasha Whalen Gest Age Collection Date 21.0 weeks [facility] Comment on above: Performed By: #### A FPMAT #### [facility] [address] [place] [address] Dr. Tasha Whalen Gestat, Age Based on Ultrasound Normal [facility] Comment on above: Result Comment: 17.0 on 11/07/2022 Recalculations are not recommended when gestational dating by LMP and ultrasound are within 10 days. Performed By: #### A FPMAT #### [facility] [address] [place] [address] [address] Tasha Whalen Insulin Dep Diabetes No Normal [facility] Comment on above: Performed By: #### A FPMAT #### [facility] [address] [place] [address] Dr. Tasha Whalen Interpretation Comment Normal [facility] Comment on above: Result Comment: Inte rpretation: [...] Customer Services to discuss available options. The [employer] recommends amniocentesis be offered to women age 35 and older. Performed By: #### A FPMAT #### [facility] [address] [place] [address] Dr. Tasha Whalen [age] Normal [facility] Comment on above: Performed By: #### A FPMAT #### [facility] [address] [place] [address] Dr. Tasha Whalen Multiple Gestation No Normal [facility] Comment on above: Performed By: #### A FPMAT #### [facility] [address] [place] [address] Dr. Tasha Whalen OSBR Risk 1 [place] 3810 Normal [facility] Comment on above: Performed By: #### A FPMAT #### [facility] [address] [place] [address] Dr. Tasha Whalen PDF . [facility] Comment on above: Performed By: #### A FPMAT #### [facility] [address] [place] [address] Dr. Tasha Whalen Race Normal [facility] Comment on above: Performed By: #### A FPMAT #### [facility] [address] [place] [address] Dr. Tasha Whalen Test Results: Negative Normal [facility] Comment on above: Performed By: #### A FPMAT #### [facility] [address] [place] [address] Dr. Tasha Whalen Coding Summary.on 12-03-2022 Coding Summary. CD:[id number] Ww+PGhlYWQ+JT3URTKeR 90poLHsmS0oX1KALGcTE ywgQVBQTElOSyIgbmFtZ I6kqKAhODLo IC8+BA8jHTNgFwzjcLHi t0J1nPZ6A71cco9fPYnb oIU7CLTmUuJkfdtgy2cn tNe1UBekRateRhKx EPBwuO68VAT2kN20Db72 lGOkgIGgd8ljmBz6QkLp DVPgXQQ4iBnvSAfyk4Zw ECKbL33fjYPnn2U1 IGNvbGxhcHNlOyBlbXB0 qI3hJXlenhpwe5bnlhbu Wsu6kr65pKJaf4U3hJH3 Y3ScczZ1HCWrjKIn VavxfNRKtY2ayxssy4or rwnxGpKlZUJeNXf9VYn0 SOPyuAnkTxScUT56YYB5 NNLzejDcS6BeIDNe aUuyBzM0y6D7Vg8WD0VM ZirzF7CZWRMEMCnrnNE+ FU37rk46G2UlShdaGak5 YTGpZEG3nFX9eZ3z JUNmMDdzc4I0tLM0K4Ih wyEpli0sh3dyKTKuFViu P65jtEEgo7T3ACHckVB7 YAAglStuGpHecI67 Oyc+WBZsrIsgu9HkMznp c6umu6pzmDi8EqwfHEHm nhVpuMuqMQH1h7ZiBe8i LJHarHG0sLT6gG1n YfXcZpN2IDcaF603QtGx fRLtVxtlT33bP0FxiKQ+ DCHjQpb9FZXrqRlvLY1j A1XfYWMlaresoFCx wDsqAJ3xSPQdnfxzNRGq kG6cHPIeV1i5AnHcLwX0 SZlnF6IfKZSkaykuNw22 eM5qCiUrHsP3KBph H8EnaeQ4MJDmnIXbXPst GKM2E67yd0C6VTHoAMIg INU6mNZ8kC2pgJmrlutz bGVmdDsgdmVydGlj SSoqZRwtU752SKCvyWar PkNvZGluZyBEYXRlOiAg MDQvMTEvMjAyMzwvdGQ+ JQEjYJU9sKaoQHGe zPWnHGdcHr8ydHmguLkg UG2oRUUcpbgvJAJniP7x IBYymCCqqJvmGV8uRMAs nmzgk158CmArEHS7 EMRltWHsM2KscU6lLrVg NRWnHDFwF5XfzGPdZTvt U714UUzwIvA6XGQskoKm R5NeFOPynCvmWpZ0 t0L7It9Ik2WgwtuvE5Rk bJGnQlWzTmdyPBp6J2Or PjwvdHI+YF86KAToOC14 NDj1SHJ7hDubLInx KJDwL0CzwW9xQmPlGBZd ZGRkOyc+PHRhYmxlIHdp ZHRoPScxMDAlJyBzdHls CD0qLb2aZVIfFYIj fBclbVFiCqJyg1tiGWQw FHyaSJ6eiQvmA9ClgRB7 QWRem4a0Cd92B12nM3Xg dXA+IVOcjTR4pIZ6 iJ2uHxGcTnG5PLvzD036 DlPhxJAoZgoyx2ork5kj uOz4KeR9GBGenuGqoQnp WGS4d0KbYl38M55t IHdpZHRoPSIxNSUiIHZh qFzady0tlP7hLf1+PGNv qJZ1bKQ3sZ3kEcGjCdB1 CAtuB699VkTjxHGq Ynkrk2mxp7oyvMm9KqRm NITvxnNuzFeeBUE5r9Wf Vp99H3VbyTkzq8LqGqa0 tp31yQJcf6Z7pHN3 X8MoFQUbrjasaBUpxHmd RG3tKRGyvrwhSTIbzN0t XCRlQ0d6ChPjBhO3CUkl F0ErpfA1ICUnbHOy TFPeqJKNiP1rmwajh7kf tqjuNxYxLMZlXNo1UKx6 WXJysPtfOvDeOTM6CgU6 UOP9nOUfeQ0guKwz lgpacD2sJpt+UVP4vTXw iEYALU5nItzmxZD+PHRk VZQ1wSaqPDzxCNYsjT3l ZEBmJ0t6CyWqRjS8 ELoqX5TphgK7KBHxxRNi TBKgpIOKuE2rsxawt4ma izzvEkQzOFJtSHs3DKy9 LWFsaWduOiBsZWZ0 UbD0ZAK3cJYyuJ3nwVoc buzzxY0cHob+QmlydGgg QKD2HCh0Z9TwRze5HXBo rOdbBA8kyMIhGPql Rs1rfOmxiWziPL3qMAEr mmbge765WaQgk4rcOYQv eRWnWByjKWM4L81kv7H0 YRGiTSCyXXU0fDQ5 xZ2hrTeltqzwbVOxvKxo tnWnjBdlKHjhIKsiY664 LBIfmYxpRySzAEf8Y7Is Hme8OHVweStkPP5c jHRoDKgqYq1sgAlpgUdg JY6cXEZjnrdnx915LxXz e8fvXFRjxHQaWWcoOTZ6 K36fj4W3DNUmWDWz SNR9sUD0fM9uoHrrsfur bGVmdDsgdmVydGljYWwt HPslS933NUWwpUfoYiCu zKh1A9WhAwr5TTXm kQmrKL8gbIGwKJkfSb0z vVlypNvrZB9bWIKbavub y064OpPuy5haVPTkgFHo TSfhOAH6X41kz1K2 UXUuFRWtNNZ6uNK8oP2x bGlnbjogbGVmdDsgdmVy tNtgDSksQKwyK707WJVw cDsnPlBhdGllbnQg GDheWSy6P1BtRbihsLN+ TX62MGMdUB84tYRrkPPn b2kpdJw0JbFvFILkFAS5 oWhzCReos4YuCNJl M37puAIyi3U7QEPqiFtd wGYiYqVioSI3dG4rGOpa scifo4wcytmnXbfte2al io70uL86T36zVAak ZHRoPSIzMCUiIHZhbGln gy5dkL9qWb3+PGNvbCB3 rBU5mR6qKZEuNhG1JGep C384UnHzmYLxYdrs n4yjd0vpnXm5QqJ2JOBe dwVwtZwtMST5q5FuMe44 T54nGTvgUSHnJDOqVQYd JFUchJsaku0viW9v Ii8+CWJrmZK0sRA9eK2x VjTaAtG1MJwdN555LqRq pYShPvgxD44rL7HcmBN+ ZCWjAby2UVAowSsf PW6kpOIdFXqqVg5lLPR3 WtQlCtVhANgrJ7IeDVJh gevdekcacQY4OYToLVPt yJ97Bn4unNdtHYQu iUPGqC0yfbezb2xaqfiz MpZfXPIzHAy4IKz2STSo fWhyJdBnTRG9IaK9VMK2 gKFmcN7vlJievoev cQ8iI7OiMTDlwgtfRm34 yM0hHaCiBoL7VCipNgj+ N7pGX1IECHRbSSYLFnBN TkEgTTwvdGQ+PHRk NKN7lTxmPCbsKHQlwZ5b ZJNwW4b0TkEsSgP8IIuo P4DuTYKpzkhqRf67lG1g OlWoTgE3DTjgS0Gi uxD4QIMzrXUeHCtzKBX8 M96nk7S3EGHdMQOdWBR7 jTS1xC2ssQwayzyaqJMc dDsgdmVydGljYWwt AFqkQ248LBOoeYcpFaDm LlJ7RpRuIYA1E0OiHgb4 BFVtoMtzIG3kvNGbVMot Eb4efFdtbVbbMV4p GGAiseilXNQkdS6yPJOr iOYreFmgTT6aUKVeqnrd j566KzAtLZO2YTBrvKNl V7WncD3mDtUlVNJa UUOdP5RwfWNbEMtvO653 WOwiHnD7LMAcbzQoL6Lj JDYpcDakGcR9q3N7Ny2b MSBZZWFyczwvdGQ+ VRFeHTX6oIdlYEibNFGa zI9pYKKgH0q2UjHoNxU2 MPbeQ4GwSRFqvpweQa66 jM9sIiVePbK3SCnt X7WcafT8XQMusSXrTAiq VXS2V50gc6I5HLAbKDOw KDE9fHJ5qS2diNtykksc bGVmdDsgdmVydGlj NBkwJBmgK386XWCtiEji PkZlbWFsZTwvdGQ+PHRk VCX6hNzuOScbOQEgbB4s UNZmB8c5GwQmUqK4 TCaqE4UtNNGefgjjSs54 vM1nTkTmKnV4DAcwN4Ky ewE5JJHerNFlHYwoJCW1 X88fg4M2AGYvPVAk NUQ1qVX6dJ1dxPjsmdfq bGVmdDsgdmVydGljYWwt LFocG077OPWxoYtnQm3T IFRyaWFnZTwvdGQ+ SW58gl99D3PtSzclFhx3 PQOkMJD1pVN8nH6iVDGm NCjvq7R1pPN8P8RznjXx sy4sv5okKYJnXYfk N87upASfq1Z4FIUcjYO5 VNHzbZqdBaSixR26Iyc+ SYIahYwzt8CnJllcn5aq w8lkfBh5UgAyBHRc kpOmoUgvBOE5n0BcVu80 O01gUAfjGSPdDCNuSBBl TBKzlJtkbl2dwP5uBi1+ GQDlgDG6iEZ2jW3z PbTrEuA4PIlrU517TqXc eAIkVmjyd3tqo6ddjMb3 IjIwJSIgdmFsaWduPSJ0 j3LsLj23B6RwxWjp e5HxEcp3eu35mJCvo9V4 uKK8B8OzORMjpdomxKMy tBqyPW8zDXRxdowtUSDb rC3mLSTkE6b2ZsZt GwJ3EIuwZ8BelyK3CKXo hNWvKBQbdUYUdF8noqat q0ojqkldFgNpSLCqSHn4 NFo6UADceZyoDaJs DSQ5PcO9ANZ4jZIewO0y kZhesrzwdA4vYnv+UGh5 t0ggqLLlKE2bxWC4QM08 DY17aUHjw9T9uJZ4 Z3CdWTTjomcpvhunmBL3 UZQjSMKoyC46Ar6aaHda Zx5nOIXcGUJ4FNMnmSFq Q6ZglQ5bVjYuYEEe GVKbJ0WnbESrPRgjY833 UBciGrR8YZAxfgYsY2Vk RHUzuRiaWsN7t1P9Lj9K WC43PJ57NI83hCFr u5L0hKQ4K2KxXERwrcgo ybatzSX1AGIeULKjsL83 Fo6ekPxgJs5dBLWzZFN6 RQHsgCHkN4RezM9a AbEiMSIhVWJyG4WepMVl RLnvS899RVpsQyZ3CIZk wzAlC2WhNPKukPouQaA0 n1A0Ho9JNg44GJ54 BA59gSAkr8V5tRL1U9Fe RDPgmzkzmlunxUT1PPJe SXGomU45Ce0utJihEa7z ONAbNZK0JUEkeGYg T3RtxF8pWbZcRTFyAEVu M1QbnXSsBYbfA697YNiz RwS7YMOtwoSpN2SjFANg mWhlWtT9k2M7Tu6P GCmvsyf1L7PeNchlmPR+ PE63QIHoLH21vYHmdIKe x9rcoPt1PdRgMWOfRFZ2 qIogYSwez4DeQLFb C31ufLUx (more content not included)... Normal [facility] Nursing Assessmenton 023 Nursing Assessment [id number] 3#1.00CD:127 Normal [facility] Discharge Instructionson Discharge Instructions [id number] 0#1.00CD:127 Normal [facility] Inpatient Clinical Summaryon 11-26-2022 Inpatient Clinical Summary [place] [id number] Clinical Summary Person Information Name: ROQUE PIERSON/[facility] Age: 22 Years : 2000 Sex: Female PCP: Ambrose Urbano MD Marital Status: Single Race: White Ethnicity: Non- or Language: Bahraini Visit Id: Visit Reason: LT / RT/ LOWER ABD PAIN Speciality: Acuity: Obs Enc Type: OB Triage Med Service: Obstetrics Arrival: 11/25/2022 18:17:16 Discharge: 11/25/2022 22:27:00 Dispo Type: Home (Routine DC) Address: [address] [place] [address] [id number] Provider Notes: Diagnosis: Problems Active (11/25/2022) Smoking [...] Refills: 0. Care Team Members: Attending Physician: Steve BARONE, Shawn Burk Consulting Physician: Referring Physician: Follow up: With: Address: When: Your doctor in [place] [phone] In 3 days 11/28/2022 Comments: Call for [...] Education Information: Round Ligament Pain; Morning Sickness, Qcnw-xi-Utdh; Second Trimester of , Tpca-hr-Ajcx; Abdominal Pain During , Cfvw-oo-Qbsm Normal [facility] Inpatient Patient Summaryon 11-26-2022 Inpatient Patient Summary [place] [id number] Patient Discharge Instructions PERSON INFORMATION Name: ROQUE PIERSON Date of : 2000 Current Date: 11/25/2022 23:14:36 PHYSICIANS Admitting Physician: Steve BARONE, Shawn Burk Primary Care Physician: Ambrose Urbano MD PCP [...] up: With: Address: When: Your doctor in [place] [phone] In 3 days 11/28/2022 Comments: Call for [...] to find a nearby participating provider. Comment: IDANGELO SABRINA M, have received the attached patient [...] Last Dose: Next Dose: Pharmacy Information: [facility] PATIENT EDUCATION INFORMATION Instructions: Round Ligament Pain [...] until the pain goes away. ? Take hupg-kmi-dhtkshh and prescription medicines only as told by [...] you uri (more content not included)... Normal [facility] Insurance Correspondenceon 0 11-26-2022 Insurance Correspondence [id number] 5#1.00CD:127 Normal [facility] Consent for Treatmenton Consent for Treatment [id number] #1.00CD:127 Normal [facility] GetWell Education Videoon GetWell Education Video Yes Patient Avoiding Infections in the Hospital Normal [facility] UA With Cult Reflexon 2022 Bacteria LM Ql (Urine sed) TRACE Normal Trace [facility] Comment on above: Performed By: #### 1 [id number] #### [facility] [address] [place] [address] Bilirubin Ql (U) Negative Normal Negative [facility] Comment on above: Performed By: #### 1 [id number] #### [facility] [address] [place] [address] Clarity (U) CLEAR Normal Clear [facility] Comment on above: Performed By: #### 1 [id number] #### [facility] [address] [place] [address] Color (U) YELLOW Normal Yellow [facility] Comment on above: Performed By: #### 1 [id number] #### [facility] [address] [place] [address] Epithelial cells.squamous LM.HPF (Urine sed) [#/Area] 0-2 Normal 0-2 [facility] Comment on above: Performed By: #### 1 [id number] #### [facility] [address] [place] [address] Glucose Test strip (U) [Mass/Vol] Negative Normal Negative [facility] Comment on above: Performed By: #### 1 [id number] #### [facility] [address] [place] [address] Hemoglobin Ql (U) Negative Normal Negative [facility] Comment on above: Performed By: #### 1 [id number] #### [facility] [address] [place] [address] Ketones (U) [Mass/Vol] Negative Normal Negative [facility] Comment on above: Performed By: #### 1 [id number] #### [facility] [address] [place] [address] [place].plasma/[place].R BC (Bld) [Mass ratio] 0-3 Normal 0-3 [facility] Comment on above: Performed By: #### 1 [id number] #### [facility] [address] [place] [address] Nitrite Ql (U) Negative Normal Negative [facility] Comment on above: Performed By: #### 1 [id number] #### [facility] [address] [place] [address] pH (U) 7.5 [pH] Invalid Interpretation Code 5.0-9.0 [facility] Comment on above: Performed By: #### 1 [id number] #### [facility] [address] [place] [address] Protein (U) [Mass/Vol] Negative Normal Negative [facility] Comment on above: Performed By: #### 1 [id number] #### [facility] [address] [place] [address] Specific gravity (U) [Rel density] 1.010 Invalid Interpretation Code 1.005-1.030 [facility] Comment on above: Performed By: #### 1 [id number] #### [facility] [address] [place] [address] Type of Urine collection method Clean Catch Normal [facility] Comment on above: Performed By: #### 1 [id number] #### [facility] [address] [place] [address] Urobilinogen Qn (U) 0.2 {Andrea'U}/dL Normal 0.0-1.0 [facility] Comment on above: Performed By: #### 1 [id number] #### [facility] [address] [place] [address] WBC Auto Ql (U) TRACE Abnormal Negative [facility] Comment on above: Performed By: #### 1 [id number] #### [facility] [address] [place] [address] WBC LM.HPF (Urine sed) [#/Area] 0-5 Normal 0-5 [facility] Comment on above: Performed By: #### 1 [id number] #### [facility] [address] [place] [address] URINALYSISOrdered By: Davidson Watson on 11-25-2022 Bacteria LM Ql (Urine sed) Trace /HPF Normal Trace/HPF [facility] Auto SS Bilirubin Ql (U) Negative (11/25/22 6:27 PM) Normal Negative [facility] Auto SS Clarity (U) Clear (11/25/22 6:27 PM) Normal Clear [facility] Auto SS Color (U) Yellow (11/25/22 [...] PM) Normal Negative [facility] UA Auto SS [place].plasma/[place].R BC (Bld) [Mass ratio] 0-3 /HPF Normal 0-3/HPF [facility] UA Au to SS Nitrite Ql (U) Negative (11/25/22 6:27 [...] Desc Clean Catch (11/25/22 6:27 PM) Normal [facility] UA Auto SS Urobilinogen Qn (U) 0.3475795 {Andrea'U}/dL Normal 0.0 - 1.0 EU/dL [facility] UA Auto SS WBC Auto Ql (U) Trace *ABN* (11/25/22 6:27 PM) Invalid Interpretation Code Negative [facility] UA Auto SS WBC LM.HPF (Urine sed) [#/Area] 0-5 /HPF Normal 0-5/HPF [facility] UA Auto SS PAP ACOG PANEL 2: 22 to 29on 11-14-2022 . . Normal [facility] Comment on above: Performed By: #### C T/EL #### [facility] [address] [place] [address] Dr. Tasha Whalen Age Gdln ACOG Testing - Normal [facility] Comment on above: Performed By: #### C T/NGNA #### [facility] [address] [place] [address] Dr. Tasha Whalen DIAGNOSIS: Comment Normal [facility] Comment on above: Result Comment: NEGA TIVE FOR INTRAEPITHELIAL LESION OR MALIGNANCY. FUNGAL ORGANISMS MORPHOLOGICALLY CONSISTENT WITH DYLAN SPECIES ARE PRESENT. Performed By: #### C T/NGNA #### [facility] [address] [place] [address] Dr. Tasha Whalen Methodology: Comment Normal [facility] Comment on above: Result Comment: This liquid based ThinPrep(R) pap test was screened with the use of an image guided system. Performed By: #### C T/NGNA #### [facility] [address] [place] [address] Dr. Tasha Whalen Note: Comment Normal [facility] Comment on above: Result Comment: The Pap smear is a screening test designed to aid in the detection of premalignant and malignant conditions of the uterine cervix. It is not a diagnostic procedure and should not be used as the sole means of detecting cervical cancer. Both false-positive and false-negative reports do occur. . Performed By: #### C T/NGNA #### [facility] [address] [place] [address] Dr. Tasha Whalen Performed by: Comment Normal [facility] Comment on above: Result Comment: Emma Jama Prize Jacker (ASCP) Performed By: #### C T/NGNA #### [facility] [address] [place] [address] Dr. Tasha Whalen Reflex Criteria: Comment Normal [facility] Comment on above: Result Comment: The HPV DNA reflex criteria were not met with this specimen result therefore, no HPV testing was performed. . Performed By: #### C T/NGNA #### [facility] [address] [place] [address] Dr. Tasha Whalen Specimen adequacy: Comment Normal [facility] Comment on above: Result Comment: Sati sfactory for evaluation. Endocervical and/or squamous metaplastic cells (endocervical component) are present. Performed By: #### C T/NGNA #### [facility] [address] [place] [address] Dr. Tasha Whalen CHLAMYDIA/GONOCOCCUS CATRINA (SW AB/URINE/PAPon 11-12-2022 Chlamydia trachomatis, CATRINA Negative Normal Negative [facility] Comment on above: Performed By: #### C T/NGNA #### [facility] [address] [place] [address] Dr. Tasha Whalen Neisseria gonorrhoeae, CATRINA Negative Normal Negative [facility] Comment on above: Performed By: #### C T/NGNA #### [facility] [address] [place] [address] Dr. Tasha Whalen VAGINITIS/VAGINOSIS DNA PROB Dell 11-09-2022 Dylan species Positive Abnormal Negative [facility] Comment on above: Performed By: #### V AGINT #### [facility] [address] [place] [address] Dr. Tasha Whalen Gardnerella vaginalis Negative Normal Negative [facility] Comment on above: Performed By: #### V AGINT #### [facility] [address] [place] [address] Dr. Tasha Whalen Trichomonas vaginalis Negative Normal Negative [facility] Comment on above: Performed By: #### V AGINT #### [facility] [address] [place] [address] Dr. Tasha Whalen HEP B SURFACE ANTIGEN SCREEN on 10-05-2022 HBsAg Screen Negative Normal Negative [facility] Comment on above: Performed By: #### H BSANS #### [facility] [address] [place] [address] Dr. Tasha Whalen HEPATITIS C VIRUS AB W/ REFL EX QUANTon 10-05-2022 HCV AB 0.1 s/co ratio Normal 0.0-0.9 [facility] Comment on above: Performed By: #### H CVPCRR #### [facility] [address] [place] [address] Dr. Tasha Whalen Interpretation: Comment Normal [facility] Comment on above: Result Comment: Nega tive Not infected with HCV, unless recent infection is suspected or other evidence exists to indicate HCV infection. Performed By: #### H CVPCRR #### [facility] [address] [place] [address] Dr. Tasha Whalen HIV 1 AND 2 WITH REFLEXon HIV Screen 4th Generation wRfx Non-Reactive Normal Non Reactive [facility] Comment on above: Result Comment: HIV Negative HIV-1/HIV-2 antibodies and HIV-1 p24 antigen were NOT detected. There is no laboratory evidence of HIV infection. Performed By: #### H IV12 #### [facility] [address] [place] [address] Dr. Tasha Whalen RPR QUANTon 10-05-2022 Rapid Plasma Reagin, Quant Non-Reactive Normal NonRea<1:1 [facility] Comment on above: Result Comment: Plea se Note: This test does not meet current guidelines for screening and diagnosis of syphilis. This test is intended for following treatment response in patients being treated for syphilis infection. To screen for syphilis infection, a reflex cascade that includes both RPR and a treponema-specific assay should be utilized, such as Treponema pallidum (Syphilis) Screening Gove (107881) or Rapid Plasma Reagin (RPR) Test With Reflex to Quantitative RPR and Confirmatory Treponema pallidum Antibodies (925890). Performed By: #### C T/NGNA #### [facility] [address] [place] [address] Dr. Tasha Whalen RUBELLA AB IGGon 10-05-2022 Rubella Antibodies, IgG 3.71 index Normal Immune >0.99 [facility] Comment on above: Result Comment: Non- immune <0.90 Equivocal 0.90 - 0.99 Immune >0.99 Performed By: #### R UBIGG #### [facility] [address] [place] [address] Dr. Tasha Whalen CBC AUTO DIFFon 10-04-2022 BASO # 0.0 103/ul Normal 0.0-0.1 [facility] Comment on above: Performed By: #### H IV12 #### [facility] [address] [place] [address] Dr. Tasha Whalen Basophils/100 WBC (Bld) 0.5 % Normal 0.2-2.0 [facility] Comment on above: Performed By: #### H IV12 #### [facility] [address] [place] [address] Dr. Tasha Whalen EO # 0.1 103/ul Normal 0.0-0.7 [facility] Comment on above: Performed By: #### H IV12 #### [facility] [address] [place] [address] Dr. Tasha Whalen Eosinophils/100 WBC (Bld) 0.8 % Critically low 0.9-7.0 [facility] Comment on above: Performed By: #### H IV12 #### [facility] [address] [place] [address] Dr. Tasha Whalen Erythrocyte distribution width (RBC) [Ratio] 12.5 % Normal 11.0-15.0 [facility] Comment on above: Performed By: #### H IV12 #### [facility] [address] [place] [address] Dr. Tasha Whalen Hematocrit (Bld) [Volume fraction] 39.2 % Normal 36.0-48.0 [facility] Comment on above: Performed By: #### H IV12 #### [facility] [address] [place] [address] Dr. Tasha Whalen Hemoglobin (Bld) [Mass/Vol] 13.5 g/dL Normal 12.0-16.0 [facility] Comment on above: Performed By: #### H IV12 #### [facility] [address] [place] [address] Dr. Tasha Whalen IG # 0.04 10e3/ul Critically high 0.00-0.03 [facility] Comment on above: Performed By: #### H IV12 #### [facility] [address] [place] [address] Dr. Tasha Whalen IG % 0.5 % Normal 0.0-0.5 [facility] Comment on above: Performed By: #### H IV12 #### [facility] [address] [place] [address] Dr. Tasha Whalen LYMPH # 1.6 103/ul Normal 1.2-3.8 [facility] Comment on above: Performed By: #### H IV12 #### [facility] [address] [place] [address] Dr. Tasha Whalen Lymphocytes/100 WBC (Bld) 18.5 % Critically low 20.5-60.0 [facility] Comment on above: Performed By: #### H IV12 #### [facility] [address] [place] [address] Dr. Tasha Whalen MANUAL DIFF REQ NO Normal [facility] Comment on above: Performed By: #### H IV12 #### [facility] [address] [place] [address] Dr. Tasha Whalen MCH (RBC) [Entitic mass] 29.6 pg Normal 26.7-34.0 [facility] Comment on above: Performed By: #### H IV12 #### [facility] [address] [place] [address] Dr. Tasha Whalen MCHC (RBC) [Mass/Vol] 34.4 g/dL Normal 29.9-35.2 [facility] Comment on above: Performed By: #### H IV12 #### [facility] [address] [place] [address] Dr. Tasha Whalen MCV (RBC) [Entitic vol] 86.0 fL Normal 81.0-99.0 [facility] Comment on above: Performed By: #### H IV12 #### [facility] [address] [place] [address] Dr. Tasha Whalen MONO # 0.4 103/ul Normal 0.3-0.8 [facility] Comment on above: Performed By: #### H IV12 #### [facility] [address] [place] [address] Dr. Tasha Whalen Monocytes/100 WBC (Bld) 4.8 % Normal 1.7-12.0 [facility] Comment on above: Performed By: #### H IV12 #### [facility] [address] [place] [address] Dr. Tasha Whalen NEUT # 6.3 103/ul Normal 1.4-6.5 [facility] Comment on above: Performed By: #### H IV12 #### [facility] [address] [place] [address] Dr. Tasha Whalen Neutrophils/100 WBC (Bld) 74.9 % Normal 43.0-75.0 [facility] Comment on above: Performed By: #### H IV12 #### [facility] [address] [place] [address] Dr. Tasha Whalen Platelet mean volume (Bld) [Entitic vol] 10.0 fL Normal 9.5-13.5 [facility] Comment on above: Performed By: #### H IV12 #### [facility] [address] [place] [address] Dr. Tasha Whalen PLT 290 103/ul Normal 150-450 [facility] Comment on above: Performed By: #### H IV12 #### [facility] [address] [place] [address] Dr. Tasha Whalen RBC 4.56 106/ul Normal 4.20-5.40 [facility] Comment on above: Performed By: #### H IV12 #### [facility] [address] [place] [address] Dr. Tasha Whalen WBC 8.4 103/ul Normal 4.0-11.0 [facility] Comment on above: Performed By: #### H IV12 #### [facility] [address] [place] [address] Dr. Tasha Whalen CULTURE URINEon 10-04-2022 CULTURE URINE Culture Observations: VERY LIGHT GROWTH OF MIXED GENITAL TAYE. NO POTENTIAL PATHOGENS SEEN. Normal [facility] Comment on above: Performed By: #### C T/NGNA #### [facility] [address] [place] [address] Dr. Tasha Whalen GLYCOHEMOGLOBIN A1Con 2022 ADA RECOMMENDATION SEE BELOW Normal [facility] Comment on above: Result Comment: ADA RECOMMENDED LIMIT 4.0 - 6.0 ADA THERAPEUTIC TARGET < 7.0 ACTION SUGGESTED > 7.0 Performed By: #### C T/NGNA #### [facility] [address] [place] [address] Dr. Tasha Whalen Glucose [Mass/Vol] 100 mg/dL Normal [facility] Comment on above: Performed By: #### C T/NGNA #### [facility] [address] [place] [address] Dr. Tasha Whalen HbA1c (Bld) [Mass fraction] 5.1 % Normal 4.5-6.2 [facility] Comment on above: Performed By: #### C T/NGNA #### [facility] [address] [place] [address] Dr. Tasha Whalen CLINT BOX TEST PT SEND OUTo n 10-04-2022 SENT TO REF LAB 10/04/2022 Normal [facility] Comment on above: Performed By: #### C T/NGNA #### [facility] [address] [place] [address] Dr. Tasha Whalen TSHon 10-04-2022 TSH 1.027 uIU/mL Normal 0.358-3.740 [facility] Comment on above: Performed By: #### C T/NGNA #### [facility] [address] [place] [address] Dr. Tasha Whalen TYPE AND SCREENon 10-04-2022 TYPE AND SCREEN Negative Normal [facility] Comment on above: Performed By: #### C T/NGNA #### [facility] [address] [place] [address] Dr. Tasha Whalen US PREG TVon 09-20-2022 [...] by: ALFRED BERGERON Date: 2022-09-20 10:40 Normal [facility] Coding Summary.on 09-09-2022 Coding Summary. CD:[id number] Gh0bWw+PGhlYWQ+PE1FV OGcU31loYYekP3EE6nLL E5PPPEDHDNYCC8CVA8er ZF4GRzqF3RbppCm FfqciVUiAD63VYd5ZDY8 yHlwBYmaqD7bdVDrZ0u8 JkKtVC92wC09MHwhGTPs TzN0CdTiqmbblFSe G6qgMhWyfKLmVdd+PHRh YmxlIHdpZHRoPScxMDAl KbGehTvlXF9jOo9kPUZl LWNvbGxhcHNlOiBj d9pwBHIlIOljXV3olHau Q8BulAN9WUYbx7c2Vy07 dHI+CDBvPWU8jSxjYPeb c967YvZxt4fdUTC3 dQSpEWayBSR7T13fd6G7 FLKrOFGvHRP1aMF0wT2f hFuhybfuE1DdnGTiLdC3 KKD2zDRczW6bnVpy nzropN9zJdr+U20FBW1W LRSTGE8MGng1H7EkVomr dHI+YL27GFVeOI11xDQa oJKyw2wbzFi5FrRz ZFJlBZQ3hCkaKMvbt4Ea MRGgO17eeWPit9H4QDLr vCmtgYOuEuRltVD3jW6a XVuyootmq8pnwvpb Ckuce0wdpq75pY94W60r ZDeuAMNcJDL9MXTiKEOc cDojwr5txA6pQp3+IDxj o1ypq1jcwXo5SmYu DMLgeoPunVboFYC0u4Xb Ra19I4MhmArwh4GpJfv3 fy06kILum9K7eOL3GWjh VPVkxM0vIEitWxQ1 YSIsEkPlzX37rOBfTTzi Op2dvCgnqAwyZN6dYAXk ukqkIUXuyQ3gOOJwePNc hJeoOF4iNSAxskyg f063EfOuPWU5AYKlnNZf P6GthO6tCtMoSPYjMHQm J0UywTEoVVfzJ630CLuc PuS1EKPruwYrQ6Nw ABSxaMheSiG6j0J8Fe0A c1GaxuwfWYC4QPkxTCZh QoM8ByWxAfS6K9MfKoz1 DVSywRbyLQ2uL2Ha SLUdhnhcsuvgpKT3ZHXi CGTaiU30jSUrKMhwUe2e b5A4x850YPNtNZDatR99 Ms2gqFudTOVvbWGQ mJ5nfoqmr3kvowlbBvFe UJEoGTb8PQp3BAPfiVew TcOqMWI5OqY0WEZ2iKJc mK0ryBhzyytqzX1a Oyc+P60itR2uKFZ0WWW4 endcGBYntqKtTY47QK09 K6LpRdpndFIigQH+PGRp lcJxlKawEI6nRcDv t8caz0AsSZkiZ1OmATSb UPcmZpl0WMIpTIZ5kGY1 kT5qMGDkVJgif0D5nRT8 C4GdtuJorg2tx2ma PSYyLGpfY44meDThv7E1 WTMliUF0AYTbtTedCjNl hF70Gye+CCGqqPfbw8Tp Nujax7wtk7rhpLy1 IjMwJSIgdmFsaWduPSJ0 n4UuFt40O48cDBflIIVn PHBpXLLdYSMdgQgjti3j yM9vUg2+PGNvbCB3 yXA1oQ7mCKDvXtQ7KOoe U441GqIcdGZjNlrgb8xi h0ojhYb9EeAnLDWlswPt gOmfDUN7d3JcLs01 H08cCZliIYSnVNLcGFNe KUSocNjktl6opK7hOc8+ LH8zc5hjdp21jR61rQU+ KCFbCRG7nBjtSJna SANklP9wPRixZhU9TIXf CkSqpK44iKOiZVlvXz9n eRjawOyjXO8bHGGyzqnn g617UzWlj9cqUMGw oBJlKGgfLYT5H05om0K5 KTDrJHCeDZA6yWA8iU8e bGlnbjogbGVmdDsgdmVy uVcaNVjrRRsyS918 IHRvcDsnPlBhdGllbnQg FiFgWKd1U2NuUde2OYHg oCcuLB0mnNEzVHgmRi2y kWfmeQtqKK5mWOLx apjqs178BmOib0rxMARx nJOpUJrnXSR1W09al6W9 LFSbONIwTRP2tDA5uU5k bGlnbjogbGVmdDsg heHuiGitABblHGjeL748 IHRvcDsnPkJpcnRoIERh hBO1LY14MO59aIJjm5R6 cRM4M3BrFYVdxkbg fcnaxFJ6JVRtOWIfoW98 Jc8nnSmbMt7bSSZwOOX2 SMCgvTOrX7GcyD7xFgZc LSVxHFNbP9EynDVf DAzsN794JDhoWqE8ZMNy ppKcL6KoQFIewMuoKcK9 c7M7Rv1FC5V2DA39BG43 eZJri1Y7kGE7E7Lf HCTkbcaesguirRB1CKTd JVUgaZ64Mh6koDlxEx1c UFSxXEX6GXRjpQSnP6Sn tJ4sRxVaOSZpUGIw T3PusGVyYWdmG005MGrh ObV1MOLtiyKnZ9EvYNKv hDzpSuL2q7X2Eg8XGGd2 FU95CT58iZIal9P7 vCJ2I2SrLORanyoktezc bOF1IAUmNGMoxS21Ba8s lBjbUs5kAFZzSXK2CIDu qOBnU3XzcU5eQwFd FGPqYEJkO9EqdTSwZZew H461TRzmKoT4SOHohnLw O1NdZJXquEfxDpG3s3Q5 Fg6XNYFlAZ11AQY6 wBH2QQ38DC44L5DpHadr dGFibGU+PHRhYmxlIHdp ZHRoPScxMDAlJyBzdHls RV9fSw6eCAQaWMJz mPccaLUgQqEjv8hrJVUj YMzyJA5cxAazW1TbeEE3 WIMuj7w6Tc68O77yQ0Ay dXA+SVPgnYA1ySZ2 oB3rGkLyYdO7KSohE600 JqJpiNCbEztbg4qul7id sLj6JmT7WODvpaJsyUse HCP4l2MkZp11Y11e IHdpZHRoPSIxNSUiIHZh fGtjlo0qbT5wIa5+PGNv jVE2xZW1pC2sUwEwWnW6 DFsvW156AsPnlTKq Iidar9prt6dzlIs1IcBb GAJfboYlgCjaDVL1v7Vg Ur12Q3GwsMapz0TbOvo1 py88eWExe8Q3bZF5 L0FiIKGgtqimnAYroCpj AE5wOIRpqwbbOSUxuI4r EWIgV5z8ZdUgDvL6IVjt O7ClhoS4NJUdjTGd NMsrUOD1E04ax3H3MVLz IVCuGQD6xBX5eL2xaTby bjogbGVmdDsgdmVydGlj NSkcNOpzI491DTZs rBmaYPBqtC0zKNJpoHHi sFkkLS0vFGPcytofBm4I SUCHXSXQUPJYOVVTZB1V ET97P2LuZdg9MPAn kNhqTP4itJEgDQqyAf0y cPklxKmgIT9eZPSmhhqi YMOydK0dXRJjyMQlbZlq OC1tGNVriltdv667 EkVbJMJ5GCKimLVbJ2Uy eL8lXeAkXUMlHGOnX1Dj vZUsAEdbW454GXkbJoG4 YRGgrnPhL4UsZSNo sYmvLsP0a7F6Yb6xQO7z YS1mWWSzHE81AZ13kTNf d6Y6fGU2G1MuEAWdzzoc ittdoFR7BEYlHYJy gN59vWNcGMtpGr3iq3E8 t597ZYLyAWFyfD39Fo8x qLwvCOToeSEFhD8aubxi y3kxkrndGeChGBJo CCw0YHa3TKTdvWonHeUy MEO6GsS9SWK7vPBqfS2q pCbmbsessN2wKxy+MjEg EWGcszG5C7UhGge5 CPLzkClpLM3ojQZtWOjr Bs8mrHtbsPonTX0lEHHr debeZVWjpV6bLRXwrSFc bMulGK0zNGQmsrzm q202BsPeOTI4RQNamIVg W4FtpN6hQwAzGDZmYMNs M8DixXMoLDglG036KRli IgX2TBBankQnU0Tc LYYkmTidIfT6i6A1Ms8X SW6ddCG4O4UlBpl5GCGm lOmsYD2jdIHpKAtjNd8r dYitaPnlKM9eGQCw tcnuQYKlhU3sUOIlmVQp xAgyWQ3wDTLojsmkk242 QbVhYRH5ZFXddBOrD6Si gU2tGxXyGQWuDWUv V1DqaCWaNYxbM102ZVhw PdF4THIbvtRdR2GnHSWx qJygAgV3q7M4Bu2CiWCm V0NyB6c4P1NrGerd dHI+KG39FKYpDU91fYHz eECcr7xkuGo2FiMbWPJe WFJ6yEvaHAegr6VgSVFk H32jrIQnp4Z4FCGf xDcnlSPdBjNdxSS5rI2i ZWawudrvr5puwakbAbqo r1dgma96qE35K24tDFqb ZHRoPSIzMCUiIHZh rShtjh0hqF2xIf1+PGNv cRK2kIH4uU4sNyHbOsG7 FRmlN550OaHaiGZhJpaw k7vtb4eqwWb9AeIt DGObfvHzeCmkDRM1o7Ba Fz50Z42nCTskYFIeXLHv FRQrYSJnrIadeq9rjK5l Ii8+PY0fo8ksdl52 zC01lGR+WLOwEQS4pMbq TIblZKPvtS6pAPivIoM0 IZExYpHpeY26dBFeUDin Uq9bcQdstWzeOI7i PURkvigrk089WyFbw7zo YOMjtPErZMgiRUM8H68b u4D3QEMtSUJaKPZ0wOM4 sE2qwLmmpiosgZIb dDsgdmVydGljYWwtYWxp D806ALNsdNotFtKvrMZi I8ndnvIDTE5lGenczOU+ CIYiZVO8pWgxTFyf YXCfhX4iWWQtS9z1XgUl PnE2DXtdI1JeqmP8CSAt cEDwXURgpIOAaT6xpbsf u1guctnnFbNlKQYq MGv4IMk2CVWrxZiuLnBt VLL6ArW6ZYQ8lXTlpX6w bTjsyosjwZ2fKqt+RklO OjwvdGQ+PHRkIHN0 uRjfEAixBRFhhF9rJNVx I4r4JbNsEaM7AZhqS7Ks zaG6IHGzgMDlWEAvlTVB hD8zctjzd3tzmbbd ZjBeRMYrQPq7HMk0IPRb oGraUuEiIQL8TeO6YZS0 iYVbqW9jgXzxumthlJ6k Oyc+TVJOOjwvdGQ+ UHYsGYC6vVamFXrpQTVu nN3pFQWeV9n2GnEpAgM4 EClyL5QwwgW3OLGsuXWy SCLrfOVZjE2zmmku v6swyorqKhDnFNMiHWl8 FCv8OBSumTtwAxShOJD1 YdG7DBA3yKHchF5etKiy qlvevB8iVru+UGF5 CRT1JY26GT05C8HzElod dGFibGU+PHRhYmxlIHdp ZHRoPScxMDAlJyBzdHls YP6qKr0jMTWxREXf bGxh (more content not included)... Normal [facility] Auto Diffon 09-08-2022 Basophils/100 WBC (Bld) 0.7 % Normal 0.0-2.0 F [facility] Comment on above: Order Comment: Order Added by Discern Expert. Performed By: #### 2 966521, 5901899, 8812375, 9616262, 62368392, 0397049, 7152051 ####[address] [address] Basophils/Leukocytes Auto (Bld) [Pure # fraction] 0.1 E9/L Normal 0.0-0.2 [facility] Comment on above: Order Comment: Order Added by Discern Expert. Performed By: #### 2 461747, 6357860, 1882748, 9189568, 60815976, 2609882, 5587178 ####[address] [place] [address] Eosinophils/100 WBC (Bld) 1.3 % Normal 0.0-8.0 [facility] Comment on above: Order Comment: Order Added by Discern Expert. Performed By: #### 2 832566, 2145085, 1449790, 3704414, 75323056, 7013048, 9046426 ####[facility] [address] [place] [address] Eosinophils/Leukocytes Auto (Bld) [Pure # fraction] 0.1 E9/L Normal 0.0-0.5 [facility] Comment on above: Order Comment: Order Added by Discern Expert. Performed By: #### 2 644570, 4176592, 4943673, 5409902, 70827282, 5641751, 8235737 ####[address] [address] Lymphocytes/100 WBC (Bld) 22.3 % Normal 14.0-50.0 [facility] Comment on above: Order Comment: Order Added by Discern Expert. Performed By: #### 2 613684, 9586128, 4339352, 4403090, 70756633, 5038150, 6140914 ####[address] [place] [address] Lymphocytes/Leukocytes Auto (Bld) [Pure # fraction] 2.2 E9/L Normal 1.0-4.0 [facility] Comment on above: Order Comment: Order Added by Discern Expert. Performed By: #### 2 108386, 8602357, 5753773, 8041841, 50072743, 5579205, 3844352 ####[address] [address] Monocytes/100 WBC (Bld) 7.4 % Normal 4.0-14.0 [facility] Comment on above: Order Comment: Order Added by Discern Expert. Performed By: #### 2 983236, 7129786, 9671709, 8257202, 31358564, 0330485, 0562764 ####[address] [address] Monocytes/Leukocytes Auto (Bld) [Pure # fraction] 0.7 E9/L Normal 0.2-1.0 [facility] Comment on above: Order Comment: Order Added by Discern Expert. Performed By: #### 2 608483, 1831418, 2669748, 8364285, 64553488, 2196306, 2941811 ####[address] [address] Neutrophils/100 WBC (Bld) 68.3 % Normal 36.0-75.0 [facility] Comment on above: Order Comment: Order Added by Discern Expert. Performed By: #### 2 174364, 4718805, 3398124, 8889214, 32693273, 0002013, 6281403 ####[facility] [address] [place] [address] Neutrophils/Leukocytes Auto (Bld) [Pure # fraction] 6.7 E9/L Normal 2.0-7.5 [facility] Comment on above: Order Comment: Order Added by Discern Expert. Performed By: #### 2 552181, 5307230, 7727076, 8950938, 05021896, 5054343, 8982988 ####[facility] [address] [place] [address] BMPon 09-08-2022 Creatinine [Mass/Vol] 0.5 mg/dL Normal 0.5-1.3 [facility] Comment on above: Performed By: #### 2 517154, 8384827, 9550360, 3964605, 31139055, 6029482, 2475302 ####[facility] [address] [place] [address] Urea nitrogen [Mass/Vol] 8 mg/dL Normal 5-21 [facility] Comment on above: Performed By: #### 2 068213, 9472056, 1446675, 4513696, 83146321, 7359807, 5106986 ####[facility] [address] [place] [address] Urea nitrogen/Creatinine [Mass ratio] 16 No Units Normal 10-20 [facility] Comment on above: Performed By: #### 2 256098, 2061320, 9456764, 8739570, 80135736, 0514958, 6567557 ####[facility] [address] [place] [address] Anion gap [Moles/Vol] 12 mmol/L Normal 6-16 [facility] Comment on above: Performed By: #### 2 793469, 2952046, 9104547, 0644775, 94514779, 2763627, 5278346 ####[facility] [address] [place] [address] Calcium [Mass/Vol] 9.2 mg/dL Normal 8.9-11.1 [facility] Comment on above: Performed By: #### 2 199243, 9882907, 9685614, 4595261, 05773070, 1419910, 1896897 ####[facility] [address] [place] [address] Chloride [Moles/Vol] 103 mmol/L Normal 101-111 [facility] Comment on above: Performed By: #### 2 436633, 9800478, 9952999, 0433411, 97544122, 0186227, 6114517 ####[facility] [address] [place] [address] CO2 [Moles/Vol] 22 mmol/L Normal 21-31 [facility] Comment on above: Performed By: #### 2 644333, 0447164, 9582618, 2380156, 69226833, 2480806, 4623284 ####[facility] [address] [place] [address] Glucose [Mass/Vol] 92 mg/dL Normal 55-199 [facility] Comment on above: Result Comment: If t his glucose result represents a fasting glucose, interpretation should refer to the following reference range: 55-99 mg/dL Performed By: #### 2 938138, 4494596, 3586625, 8147849, 65832362, 5814765, 6449326 ####[facility] [address] [place] [address] Potassium [Moles/Vol] 3.3 mmol/L Low 3.5-5.3 [facility] Comment on above: Performed By: #### 2 054968, 0936232, 3189178, 7753689, 10613718, 2646434, 1537262 ####[facility] [address] [place] [address] Sodium [Moles/Vol] 134 mmol/L Low 135-145 [facility] Comment on above: Performed By: #### 2 848667, 9741691, 7781091, 9859176, 25915863, 8762754, 8750058 ####[facility] [address] [place] [address] CBC w/ Auto Diffon 3 Erythrocyte distribution width (RBC) [Ratio] 13.4 % Normal 10.9-14.2 [facility] Comment on above: Performed By: #### 2 737410, 1411213, 2589440, 9025359, 44669889, 1283332, 4401429 ####[address] [place] [address] Hematocrit (Bld) [Volume fraction] 38.9 % Normal 34.0-46.0 [facility] Comment on above: Performed By: #### 2 589996, 0969574, 7198703, 8701506, 07033010, 0618707, 3970293 ####[address] [address] Hemoglobin (Bld) [Mass/Vol] 13.4 g/dL Normal 12.0-16.0 [facility] Comment on above: Performed By: #### 2 231073, 7017417, 7520367, 7828748, 89213893, 7610232, 3233114 ####[address] [address] MCH (RBC) [Entitic mass] 29.2 pg Normal 27.0-34.0 [facility] Comment on above: Performed By: #### 2 519980, 4822195, 9643605, 5512102, 26683938, 7332644, 9275258 ####[address] [address] MCHC (RBC) [Mass/Vol] 34.3 g/dL Normal 31.4-36.0 [facility] Comment on above: Performed By: #### 2 321397, 6723365, 0737793, 3986286, 39991866, 0039882, 2671631 ####[address] [address] MCV (RBC) [Entitic vol] 84.9 fL Normal 80.0-100.0 F [facility] Comment on above: Performed By: #### 2 719070, 0950641, 4103886, 6011947, 58195223, 2567380, 8757746 ####[facility] [address] [place] [address] Platelet mean volume (Bld) [Entitic vol] 8.6 fL Normal 6.4-10.8 [facility] Comment on above: Performed By: #### 2 105386, 5515872, 6165826, 8573057, 19963140, 7809499, 7602324 ####[facility] [address] [place] [address] Platelets (Bld) [#/Vol] 262.0 E9/L Normal 150.0-500.0 [facility] Comment on above: Performed By: #### 2 069668, 7282330, 1375201, 1192604, 88277007, 8689256, 7854664 ####[facility] [address] [place] [address] RBC (Bld) [#/Vol] 4.6 E12/L Normal 4.3-5.9 [facility] Comment on above: Performed By: #### 2 992862, 2709791, 5247807, 0561893, 02217459, 1638539, 5267203 ####[facility] [address] [place] [address] WBC corrected for nucl RBC Auto (Bld) [#/Vol] 9.9 E9/L Normal 4.0-11.0 [facility] Comment on above: Performed By: #### 2 422733, 6790962, 1502766, 4101042, 44002309, 7867627, 3129824 ####[facility] [address] [place] [address] Consent for Treatmenton 08-25 Consent for Treatment [id number] 30 [id number] #1.00CD:127 Normal [facility] Discharge Instructionson Discharge Instructions [id number]#1.00CD:127 Normal [facility] ED Clinical Summaryon 2022 ED Clinical Summary [place] [id number] ED Clinical Summary Person Information Name: ROQUE PIERSON/[facility] Age: 22 Years : 2000 Sex: Female Language: Bahraini PCP: Caryn Aviles MD Marital Status: Single [...] 09/08/2022 04:05:14 09/08/2022 04:05:14 09/08/2022 04:05:14 ADDRESS: [address] [place] [phone] PHYS DOC NOTES: MEDICAL INFORMATION: Prescriptions Given: New Medications [facility], [address], [place] [id number], [phone] metoclopramide (Reglan 10 mg Tab) 1 Tablets [...] Follow up: With: Address: When: [facility], [address] [place] [address] [place] [address] Business (1) In 3 days 09/11/2022 Comments: 1 every 8 hours as needed for nausea and vomiting. Please follow-up with OB for further evaluation and management. Please return to the ED for any new or worsening symptoms. With: Address: When: C[place] [address] [place] [address] Business (1) In 3 days 09/11/2022 DIAGNOSIS: Nausea/vomiting in Normal [facility] ED Note-Physicianon 09-08-19 ED Note-Physician Basic Information [...] and Complexity of Problems Differential Diagnosis: [] [facility] Data External documents reviewed: [] My [...] q6hr, # 14 tab(s), Refills(s) 0, Pharmacy: [facility], 173, cm, 09/08/22 1:24:00 EST, Height/Length [...] 5 mg/mL Inj, 10 mg, IV Push PH4332 [F], 1000 mL, IV potassium chloride 20 mEq ER Tab, 40 mEq, Oral Disposition Plan Discharge Prescription List Prescriptions Reglan 10 mg Tab, 10 mg= 1 tab(s), Oral, q6hr Follow-up With When (more content not included)... Normal [facility] Comment on above: Result Comment: Elec oliviaally Signed By: Sissy Shah DO.basil\Date and Time Signed: 09/08/22 03:56 EST ED [...] or sour. Examples include lemonade, damián janak, lemon?[place] soda, ice water, and sparkling water. ? [place] your teeth or use a mouth rinse after meals. ? Talk with your health care provider about starting a supplement of vitamin B6. General instructions ? Take ekss-rln-siepyln and prescription medicines only as told by [...] This i (more content not included)... Normal [facility] ED Patient Summaryon 023 ED Patient Summary [address] [address] Patient Discharge Instructions Person Information Name: ROQUE PIERSON Age: 22 Years Arrival Date: 09/08/2022 01:15:13 Discharge Diagnosis: Nausea/vomiting in Primary Care Physician: Caryn Aviles MD Provider Information Primary Provider: Sissy Shah DO Advanced [employer]eters Superintendent:None The exam and treatment you received in the Emergency Department were for an urgent problem and are not intended as complete care. It is important that you follow up with a doctor, nurse practitioner, or physician?s nurseryman assistant for ongoing care. If your symptoms [...] Follow-up Instructions: With: Address: When: [facility], [address] [place] [address] [place] [address] Business (1) In 3 days 09/11/2022 Comments: 1 every 8 hours as needed for nausea and vomiting. Please follow-up with OB for further evaluation and management. Please return to the ED for any new or worsening symptoms. With: Address: When: Caryn Delonggles [address] [place] [address] Business (1) In 3 days 09/11/2022 In the event that this physician does not participate in your insurance network, please consult with your insurance company to find a nearby participating provider. Patient Education Materials: Hyperemesis Gravidarum A MESSAGE TO ALL PATIENTS REGARDING OPIOIDS PRESCRIPTION OPIOIDS: WHAT YOU NEED TO KNOW Prescription opioids can be used to help relieve plukzwxo-je-irdrzq pain and are often prescribed following a [...] down the toilet, following guidance from the (more content not included)... Normal [facility] Hep Func Panelon 09-08-2022 Albumin [Mass/Vol] 4.3 g/dL Normal 3.3-5.0 [facility] Comment on above: Performed By: #### 2 346338, 7260990, 0373325, 7148962, 33354698, 3470906, 2189590 ####[facility] [address] [place] [address] Albumin/Globulin (S) [Mass conc ratio] 1.3 Normal 1.1-2.2 [facility] Comment on above: Performed By: #### 2 406333, 4961122, 5352569, 5711483, 44868716, 4239563, 6819601 ####[facility] [address] [place] [address] ALP [Catalytic activity/Vol] 61 Int._Unit/L Normal 21-98 [facility] Comment on above: Performed By: #### 2 171726, 4932533, 2240999, 3177839, 80268606, 2361441, 7660029 ####[facility] [address] [place] [address] ALT No additional P-5'-P [Catalytic activity/Vol] 61 Int._Unit/L High 6-46 [facility] Comment on above: Performed By: #### 2 163866, 2854292, 2395800, 7139340, 52218605, 2032904, 6046355 ####[facility] [address] [place] [address] AST [Catalytic activity/Vol] 48 Int._Unit/L High 5-43 [facility] Comment on above: Performed By: #### 2 788730, 0592310, 2065915, 3110962, 32084803, 6046324, 6563852 ####[facility] [address] [place] [address] Bilirubin [Mass/Vol] 1.1 mg/dL Normal 0.0-1.1 [facility] Comment on above: Performed By: #### 2 303404, 8791412, 1635459, 6375077, 22076836, 7180861, 3353704 ####[place] [address] Bilirubin.direct [Mass/Vol] 0.3 mg/dL Normal 0.1-0.4 [facility] Comment on above: Performed By: #### 2 787345, 1713907, 3578656, 7751981, 24090043, 6708882, 2562183 ####[place] [address] Bilirubin.indirect [Mass or moles/Vol] 0.8 mg/dL Normal 0.1-0.9 [facility] Comment on above: Performed By: #### 2 614234, 5059388, 4542409, 3933757, 42979765, 1926097, 9874717 ####[address] [place] [address] Globulin (S) [Mass/Vol] 3.3 g/dL Normal 1.4-4.0 F [facility] Comment on above: Performed By: #### 2 693627, 9891214, 4560213, 4817124, 86912972, 9027264, 8996146 ####[facility] [address] [place] [address] Protein [Mass/Vol] 7.6 g/dL Normal 6.0-7.8 [facility] Comment on above: Performed By: #### 2 424711, 1797582, 4367101, 7504194, 72074329, 7444237, 9949278 ####[facility] [address] [place] [address] Lipase Levelon 09-08-2022 Lipase [Catalytic activity/Vol] 27 U/L Normal 13-58 [facility] Comment on above: Performed By: #### 2 650043, 4407410, 9687620, 5044294, 53481387, 9430521, 1165002 ####[facility] [address] [place] [address] Magnesiumon 09-08-2022 Magnesium [Mass/Vol] 1.9 mg/dL Normal 1.3-2.4 [facility] Comment on above: Performed By: #### 2 571814, 2270618, 1403410, 6041609, 42612291, 6363074, 6054490 ####[facility] [address] [place] [address] UA With Cult Reflexon 2022 Bacteria LM Ql (Urine sed) TRACE Normal Trace [facility] Comment on above: Performed By: #### 2 850382, 6638818, 9437032, 0859028, 21319440, 7669533, 8067925 #### [facility] [address] [place] [address] Bilirubin Ql (U) 1+ Abnormal Negative [facility] Comment on above: Performed By: #### 2 341260, 3241396, 5966249, 7332773, 92632573, 5826804, 0103530 #### [facility] [address] [place] [address] Clarity (U) CLEAR Normal Clear [facility] Comment on above: Performed By: #### 2 958716, 4971779, 3324276, 8846401, 73720543, 7075777, 8109604 #### [facility] [address] [place] [address] Color (U) YELLOW Normal Yellow [facility] Comment on above: Performed By: #### 2 922215, 3534693, 4384337, 5792398, 31975340, 3158797, 5819136 #### [facility] [address] [place] [address] Epithelial cells.squamous LM.HPF (Urine sed) [#/Area] 0-2 Normal 0-2 [facility] Comment on above: Performed By: #### 2 534097, 4802428, 0204665, 3199295, 96358392, 7447483, 9444447 #### [facility] [address] [place] [address] Glucose Test strip (U) [Mass/Vol] Negative Normal Negative [facility] Comment on above: Performed By: #### 2 359650, 3795342, 9883814, 7911873, 27002966, 6029078, 1793374 #### [facility] [address] [place] [address] Hemoglobin Ql (U) Negative Normal Negative [facility] Comment on above: Performed By: #### 2 085790, 8682476, 6249101, 4117876, 40013026, 2490105, 0736351 #### [facility] [address] [place] [address] Ketones (U) [Mass/Vol] 3+ Abnormal Negative [facility] Comment on above: Performed By: #### 2 036676, 8554752, 8730030, 4211479, 25814240, 3140676, 3365683 #### [facility] [address] [place] [address] [place].plasma/[place].R BC (Bld) [Mass ratio] 0-3 Normal 0-3 [facility] Comment on above: Performed By: #### 2 612623, 5202162, 3825072, 5048875, 05951433, 0942262, 2928964 #### [facility] [address] [place] [address] Mucus Ql (Urine sed) TRACE Normal Fish er [facility] Comment on above: Performed By: #### 2 417103, 2189281, 9107494, 8304136, 01832108, 9503161, 2456864 #### [facility] [address] [place] [address] Nitrite Ql (U) Negative Normal Negative [facility] Comment on above: Performed By: #### 2 552083, 2796866, 7861660, 2992225, 40977972, 6477620, 2339208 #### [facility] [address] [place], [place] [address] pH (U) 6.0 [pH] Invalid Interpretation Code 5.0-9.0 [facility] Comment on above: Performed By: #### 2 850187, 3958458, 8931524, 4418239, 15280591, 2184661, 5821342 #### [facility] [address] [place] [address] Protein (U) [Mass/Vol] TRACE Abnormal Negative [facility] Comment on above: Performed By: #### 2 513144, 6642010, 1930956, 9813663, 72245846, 5932810, 9280525 #### [facility] [address] [place] [address] Specific gravity (U) [Rel density] >=1.030 Invalid Interpretation Code 1.005-1.030 [facility] Comment on above: Performed By: #### 2 190949, 4840905, 7785653, 0961426, 46319857, 3893448, 5156745 #### [facility] [address] [place] [address] Type of Urine collection method Clean Catch Normal [facility] Comment on above: Performed By: #### 2 950423, 0612505, 2517203, 2432198, 56943325, 9281202, 4512223 #### [facility] [address] [place] [address] Urobilinogen Qn (U) 1.0 {Andrea'U}/dL Normal 0.0-1.0 [facility] Comment on above: Performed By: #### 2 542881, 3217232, 5557242, 0524132, 49717516, 4887994, 1127100 #### [facility] [address] [place] [address] WBC Auto Ql (U) Negative Normal Negative [facility] Comment on above: Performed By: #### 2 097963, 4597132, 3150585, 0285119, 25140024, 8941968, 7065321 #### [facility] [address] [place] [address] WBC LM.HPF (Urine sed) [#/Area] 0-5 Normal 0-5 [facility] Comment on above: Performed By: #### 2 912787, 9967602, 0819141, 2681455, 14335700, 8112377, 8796013 #### [facility] [address] [place] [address] eGFRon 09-08-2022 GFR/1.73 sq M.predicted among blacks MDRD (S/P/Bld) [Vol rate/Area] mL/min/{1.73_m2} Normal >=59 [facility] Comment on above: Order Comment: Order added by Discern Expert. Result Comment: eGFR is race adjusted. AA=. Performed By: #### 2 208051, 7435541, 3889430, 5591905, 98129909, 7803731, 9205542 ####[facility] [address] [place] [address] GFR/1.73 sq M.predicted among non-blacks MDRD (S/P/Bld) [Vol rate/Area] mL/min/{1.73_m2} Normal >=59 [facility] Comment on above: Order Comment: Order added by Discern Expert. Result Comment: Ramp Manager emil kidney disease could be indicated at eGFR's of less than 60 mL/min/1.73m2. Kidney failure is indicated at less than 15 mL/min/1.73m2. Performed By: #### 2 666078, 7836272, 8429920, 5866546, 45876733, 3443978, 5185755 ####[facility] [address] [place] [address] CBC with Auto Differentialon 09-04-2022 Absolute Eos # 0.[address] [facility] [facility] Absolute Lymph # 1.[address] [facility] [facility] [facility] Absolute Hubbard # 0.[address] [facility] [facility] Basophils (Bld) [#/Vol] 0.10 10*3/uL [facility] Basophils/100 WBC (Bld) 1 % 0 - 2 % [facility] Differential Type YES [facility] Eosinophils/100 WBC (Bld) 2 % 0 - 5 % [facility] Hematocrit (Bld) [Volume fraction] 40.9 % 36 - 46 % [facility] Hemoglobin (Bld) [Mass/Vol] 13.9 g/dL 12.0 - 16.0 g/dL [facility] Interpretation and review of laboratory results Abnormal [facility] Lymphocytes/100 WBC (Bld) 18 % 15 - 40 % [facility] MCH (RBC) [Entitic mass] 29.5 pg 26 - 34 pg [facility] MCHC (RBC) [Mass/Vol] 34.0 g/dL 31 - 37 g/dL [facility] MCV (RBC) [Entitic vol] 86.9 fL 80 - 100 fL [facility] Monocytes/100 WBC (Bld) 6 % 4 - 8 % [facility] Platelet distribution width (Bld) [Ratio] 13.0 % 12.1 - 15.2 % [facility] Platelets (Bld) [#/Vol] 252 10*3/uL [facility] RBC (Bld) [#/Vol] 4.71 10*6/uL 4.0 - 5.2 m/uL [facility] Segmented neutrophils/100 WBC (Bld) 73 % 47 - 75 % [facility] Segs Absolute 7.20 High [facility] WBC (Bld) [#/Vol] 9.8 10*3/uL [facility] CMPon 09-04-2022 Albumin [Mass/Vol] 4.5 g/dL 3.5 - 5.2 g/dL [facility] ALP (Bld) [Catalytic activity/Vol] 73 U/L 35 - 104 U/L [facility] ALT [Catalytic activity/Vol] 17 U/L 5 - 33 U/L [facility] Anion gap [Moles/Vol] 11 mmol/L 9 - 17 mmol/L [facility] AST [Catalytic activity/Vol] 14 U/L NINF - 32 U/L [facility] Bilirubin [Mass/Vol] 0.4 mg/dL 0.3 - 1 .2 mg/dL [facility] Calcium [Mass/Vol] 9.3 mg/dL 8.6 - 10. 4 mg/dL [facility] Chloride [Moles/Vol] 103 mmol/L 98 - 10 7 mmol/L [facility] CO2 [Moles/Vol] 23 mmol/L 20 - 31 mmol/L [facility] Creatinine [Mass/Vol] 0.47 mg/dL Low 0.50 - 0.90 mg/dL [facility] GFR/1.73 sq M.predicted MDRD (S/P/Bld) [Vol rate/Area] - PINF [facility] Comment on above: Effective May 27, 2022 [...] 103 mg/dL High 70 - 99 mg/dL [facility] Interpretation and review of laboratory results Abnormal [facility] Potassium [Moles/Vol] 3.8 mmol/L 3.7 - 5.3 mmol/L [facility] Protein [Mass/Vol] 7.3 g/dL 6.4 - 8.3 g/dL [facility] Sodium [Moles/Vol] 137 mmol/L 135 - 144 mmol/L [facility] Urea nitrogen (BldV) [Mass/Vol] 4 mg/dL Low 6 - 20 mg/dL [facility] Urea nitrogen/Creatinine (Bld) [Mass ratio] 9 9 - 20 [facility] Coding Summary.on 09-04-2022 Coding Summary. [id number] Gh0bWw+PGhlYWQ+PE1FV LUgD35hwWMncO7ML4yWF G7MPWNZMMCUHQ7QDQ9wy GR2AAdyO7RvhkYd GbsphCWfMF76VKf4OOZ3 tPneRFfplW5laONmZ0e1 UsVsDC68iG54ZBwwXTBy PpP8KeGitmkmbCBy C0ymCjLyzMEzTsl+PHRh YmxlIHdpZHRoPScxMDAl HbRywMltVI8qKs4qXDZl LWNvbGxhcHNlOiBj z2faKZYgJLxlEY2vaYid V5SmwET6MYSjx7l2Iu49 dHI+XAGhPQX6lObqKLkt r188UkBve3esUWE5 xIRlOCaeIDZ6P96us1H0 TCYkBXEeAQD3tRD8gW4v fLlhholfD9QouIOcVsV8 BCI7oQJffJ9ghWmk ifgiuW2fEnx+O01ERI4C DQHQYJ5XPqc0W4TlRpmu dHI+WS13ISCbDU94dJMx tFTge4llcXj9SfMl UVTiUDW0nVilZJzjn8Oy ONXzR60msXAkk7K4QRUk vNtdbUTdGyXppBS2gP2q RYeuzoqml3hingji Loskd6gmcy38bR26Q21d NTulVSDdNCF0YGHqBEZo jNnszs7veE5wCt1+IDxj z5uaq8fqsVs1RySf FQNxwnZrhKpxHCC9y5Sq Am20N8VjkFziz6AdBap2 lx13cPRpn9I8nGX1FGhn CGBsgJ2bMDupRtS0 BGVzNqHmkZ42cHCwRBdb Ov6wgPzcoVorQK8cLZOh vqqrVWKnbU2sYALdmTHi nCwvLN0cNNJmbkcd i842EaEgFCG8GLVpnQFo F3YheV8cLmFqVMPcIVId I7GfiJJiOHzhY061KSpy JeJ2ZCQcxmUzI3Fs IBQigFpxEdN5h8N3It4T a8SpgpbxJNX2NKtzGOYf TzCuVvYoMeP5V1CbWaj0 EDQduCxkXN1mR1Ku ZHFmsfjrgvybjBF8JJOn NUNuyU26lOHrGXmtIh1t u2T8q309DZJeTGOnwA88 Ml6oiKxaGCJsuYXN jI6wjrbde6bdoxjuNxXe EYZnUOf6WTi1VWFxbOwp FjYiHBN8VuH8NIM0zSXp tY8guLaefuoidY5k Oyc+X70bvT7iXNY8AVW3 fvblZSSzbkNpKS75DF58 Q0ByKtnoqTPnyIF+PGRp ysWjrRkfMH3wAeQf z9aqj3VbUUmlL3HbBYEe VJvnYkp7LJUgMRN8qRW1 hH0yCKKzCCeyk3Z4rHU8 W6CpwwYgou7fe7br TTQsDZsrV29zlAIbb5A3 OLHmsMT9ARYxmWeoAdQt lB50Bto+VPVnjOlpb2Xv Lbctl9xbx8nuyTa4 IjMwJSIgdmFsaWduPSJ0 g6NmDw54J73lIMudYWOt IIKpWIEsDIFkxNlhxy0k mV4yLp8+PGNvbCB3 gRR1nB0mHIHaSkG6WPkd A760MaEobJKmXmeps8ob z2jukPf2CiAjPFIzexMd kYoaITU6z9IeJl81 J08sIZrnIUUsYQPbMFGg CAMtbWppvb5mwH8wHp8+ UX5yi1svvh37gY76hFZ+ JHLkWXL7sAufWKds KHNpcI6pOHruYjX0NRVo AkSrqJ05dZQhTVfaQu8h rPoudVwyWM2hAVSpynue o282WuUmd3kcYMOk iMYfFQhaYBB7S01vl3Q4 SPFvBAWxNKB7jUY0jB8d bGlnbjogbGVmdDsgdmVy kThoWSlwRDinC461 IHRvcDsnPlBhdGllbnQg MkRaBLs7O4WvVrg5AFPi gXplTW2zqNAhOWvvFc8j eLolxKocRY2kAXGw ylayr138OkRer9qgARVh cACqHEbeHDN8Z57ul5H3 ZJHyKBRgRSL2lIB7jE0j bGlnbjogbGVmdDsg nxWksNxuSLvpPFueV434 IHRvcDsnPkJpcnRoIERh oCY8DJ78OF97sPAwa2L9 lMH3P1ElXCPbdhbu ptfjjBU2PMYlHYMlvM99 Gk8bvHehNq1gNGEoGID4 JGUwtIHwC8OauM7eMiZq ACBwGAYoD2YixBIo KTpjY414TXizCrY8TKDi owFaB7LwPRLpmXuwEjF1 j5R5Rd5NA4Y1YY53MI49 yUHtx6O1fID5O9Qk QCZiafvxtabwnOM3KTUa LEQjcH62Gq7gyBiyRt0y ROXvMND6OULzsFDbD3Dq kE3aJmGlFIFrOXIt V0PgyZXmYEyiG811LAax IfS3ZEAvqjAhE5PnRDFl tGlyOtA0n7Y1Vf9PRLp4 VD70DM71gGDgo0X9 gUA7I5QoBHTlkwauudqd iJJ0ZULjPQCxmB12Yq9u wZeeTe4sBCEeNBO8BKNt sAEtR6BroL5kQsAc CSCvLCLiS4WtfOTfXKuk J331NZduKoC4RZYnbcEu L8FiZMAlzLykEvY2q0Z0 Pr5ILYXhEF61YUF5 pUX1IX13VI70N1UwIifb dGFibGU+PHRhYmxlIHdp ZHRoPScxMDAlJyBzdHls ML5rQd5xKQGnIGRw nAxjnLNgEjCnm3lnRPUv PVhkKA9mjPbuX9EjeCB6 LIMpe2b7Rm64A15jL6Uo dXA+EEJfhMV1qNL2 cS1dUrKuPtD0YOgdF719 WzLhtCMfFzhjk2shy9fw vHj5WpK6AAGiifTadCnz JIT0f6AsDp25Q17l IHdpZHRoPSIxNSUiIHZh vDwnlb8dvR5vNy3+PGNv mKO5cFL4pM8eWpQgZwO2 CEpuR239ShBotFHd Rzbdi3igj0qnfNt5HlSx KSKbjvAqvMyyZLV4g7Nm Ej00M7EkzVoos8TbGoa1 sl64nLXxx2L1gVZ4 K6BaDAPvihnodZNnaFkg WP0lMXSccvmrHWSkuW3p LXVsL5b2ZoCaFxR5ZJmd Q3MjlyA0MYLtcWXq BKtwAWB8E25lf6D2SYAt HJDzFZF5gEH1tV9cfZpr bjogbGVmdDsgdmVydGlj YIrsHXqjX755FFRe aAoySGWnuP4uKMLwdYNd hAbvZX7lVZClesmbQa5W SUAMDPYSHCGQWQUFFE6W HF08E0OjYdt0SLDl mTnpYK6skBYpHTzoZm9g xLplqNlvJH0dESWjwgzm IZOfzC6mGRYcvPDrsOqc VG7sDMZpjqopi741 EmZmTZC6RDZrhYHkO1Ll aG0vFoFwFJKdKMQdM5Qs dZDbWBhqO857DJpxDuN3 DGWsgdGnH1UkUCVd hEkmLpV6p9L5Km8lIT8g TL9nKDXoYD45YU36rPGx k0Y2aHH5E9PdUJUntycb gkntiFA2RDQkZCTv tR59pRTiOOyiEy7et2L5 o763OQLwCWYclI61Tr2o qPcbCGJfiTSObX9kawui u5wakpxlUeIqTUId QMm8UQr2JORjqCoeKsQg CPZ3OxU6QRM0wZAysH7b zMnfjqzfbC9iFhy+MjEg RCOmmhG4Z3KcMzg2 CSVamCkvVW5xsHMyUBlg Jl5eqWyukAdmDL2tUFVh weeaIAMcyA8yVKSjnISc bFktVO5iFNIksrtb o958YqFcNAN7IUApsLHh Q6EmpE7iFrQeKHEpISJw M4QwySRrMZfuY059NOpy UxC6QHNxrpCqG0Xu DJDulHtsYwC9r6V8Bb6M ZW2dbSP9P4QtOwe4YJCa zHnyVV2qtTEcZYraLw4y tSxmwQqfHH2mPYWm hedmZVDhkY2jUIMkeXWp yMxiTD7kEJIzzdjar975 YwXtBRM8TCAjcVPwH3Jc xV0yBqAxOSRbQLGf T3XhvYTuLXvrD148RGdo JhV9BYKevbQnC8WaBLWd oBguIhB8b8V7Ux4FvJBy V0XwD6f1K3RsOhbo dHI+QP26SBEsVT36vKHc uZSay7gwxVf7JrNrRKAj DQH7yQunGXkpd5WcZNRo Z05naKEsi9H0OAMx cFiwlTFtLfGdeVB1wU5x BFxdhcgrq2exoaraHkfx l1vllo80cZ07U76mLRtx ZHRoPSIzMCUiIHZh yYppqi3grT9qKw6+PGNv rPI0rNR5dK2rAwGuJeD6 AVqbL052MhByeEHaWssy x6epz4rbvVk5OsCh QATnooZpuMdxDUZ0s6My Xr94U17wVLejAZLwOBAu YFNiDGGwoBycix4rkK9x Ii8+HZ3jf7duje45 yS62eAN+CXEqWTR2tQfv SExeFVZnqY5pCHqzObS5 VAGvYvXpqY90dXNhCHsc Ck1vbQbtuErqTN3a TESyxxnqq876VjQji9xs KQKzaXYcCDgaWRL3F95p a2O7BSNsBBPvUVM0kPG8 iC1huGzrsbphfMHc dDsgdmVydGljYWwtYWxp J815BRBrxYjhLfNlaUOy W0paehRRWB4kWsvqrRM+ OZNyKJZ0eRfdVEqk FSTwnP8pEQIeD0m5UqUl FfA3ATlqB7CmouR3UDSd tPPxRMHjzFVAsG8whibo m1erbtluKdFuUXNo BBg9KLf1STWruZdyAxTs SPO2WfW0WTZ1jONqjS6q zQrigqbtgW1xQqj+RklO OjwvdGQ+PHRkIHN0 sZukGTldBDYtqX7bPBCy M7y6RfBzPqU8CLtsW5Rk vuW4RBPybMNxPKPhxTGJ kH5jtslws2ujbunn SoRfRTGbYTg8OHa5GPKw qRbhCyGuIYX8NeI5BXH5 nKQcfY9lxVluyaxewR2v Oyc+TVJOOjwvdGQ+ IFSoALM5aRotYLfkVHFi fD2oZTAuX3w0BjDaByB9 UJofF7LzprK4GQMaiOAz RIRpbBBHpY0siedf u0mjngzhBlLtFCSxGCz3 DHh6AXMshOejFkZfQLN0 QtX4DDM2hOFlnI4xhZfs qmqfcC3dAvr+UGF5 OWH6GB11VO32Q5BxPlxh dGFibGU+PHRhYmxlIHdp ZHRoPScxMDAlJyBzdHls OL8lTb6bUDDtGIHw bGxh (more content not included)... Normal [facility] Drug screen multi urineon Amphetamine Screen, Ur Negative NEGATIVE [facility] Comment on above: (Positive cutoff 500 ng/mL) Barbiturate Screen, Ur Negative NEGATIVE [facility] Comment on above: (Positive cutoff 200 ng/mL) Benzodiazepine Screen, Urine Negative NEGATIVE [facility] Comment on above: (Positive cutoff 150 ng/mL) Cannabinoid Scrn, Ur Negative NEGATIVE [facility] Comment on above: (Positive cutoff 50 ng/mL) Cocaine Metabolite, Urine Negative NEGATIVE [facility] Comment on above: (Positive cutoff 150 ng/mL) Methadone Screen, Urine Negative NEGATIVE [facility] Comment on above: (Positive cutoff 200 ng/mL) Methamphetamine, Urine Negative NEGATIVE [facility] Comment on above: (Positive [...] 300 ng/mL) Tricyclic Antidepressants, Urine Negative NEGATIVE [facility] [employer] Comment on above: (Positive cutoff 300 ng/mL) Drug screen results are to be used for medical purposes only. All positive results are unconfirmed. Testing for employment or legal uses should be sent to a reference laboratory for confirmation. [facility] Urinalysison 09-04-2022 Bilirubin Urine Negative NEGATIVE [facility] [employer] Color, UA Yellow Yellow [facility] Glucose, Ur Negative NEGATIVE [facility] Interpretation and review of laboratory results Abnormal [facility] Ketones Ql (U) MODERATE Abnormal NEGATIVE [facility] Leukocyte esterase Test strip Ql (U) Negative NEGATIVE [facility] Nitrite, Urine Negative NEGATIVE [facility] pH, UA 7.0 5.0 - 8.0 [facility] Protein, UA Negative NEGATIVE [facility] Specific [place], UA 1.010 1.005 - 1.030 [facility] Turbidity UA Clear Clear [facility] Urinalysis Comments [facility] [employer] [facility] Urine Hgb Negative NEGATIVE [facility] Urobilinogen, Urine Normal Normal [facility] Auto Diffon 09-02-2022 Basophils/100 WBC (Bld) 0.8 % Normal 0.0-2.0 [facility] Comment on above: Order Comment: Order Added by Discern Expert. Performed By: #### 2 456786, 4461554, 1754712, 3946776, 29828587, 7215569, 4928804 #### [facility] [address] [place] [address] Basophils/Leukocytes Auto (Bld) [Pure # fraction] 0.1 E9/L Normal 0.0-0.2 [facility] Comment on above: Order Comment: Order Added by Discern Expert. Performed By: #### 2 600102, 5404527, 6314595, 1013666, 21711122, 3421947, 1032090 #### [facility] [address] [place] [address] Eosinophils/100 WBC (Bld) 2.5 % Normal 0.0-8.0 [facility] Comment on above: Order Comment: Order Added by Discern Expert. Performed By: #### 2 784565, 2924580, 1901182, 8714143, 24438330, 3286310, 0639195 #### [facility] [address] [place] [address] Eosinophils/Leukocytes Auto (Bld) [Pure # fraction] 0.2 E9/L Normal 0.0-0.5 [facility] Comment on above: Order Comment: Order Added by Discern Expert. Performed By: #### 2 878399, 5861677, 1278217, 7064008, 71446418, 6931001, 7077388 #### [facility] [address] [place] [address] Lymphocytes/100 WBC (Bld) 18.3 % Normal 14.0-50.0 [facility] Comment on above: Order Comment: Order Added by Discern Expert. Performed By: #### 2 072593, 6338916, 9136251, 5298716, 24521095, 7289183, 2256761 #### [facility] [address] [place] [address] Lymphocytes/Leukocytes Auto (Bld) [Pure # fraction] 1.6 E9/L Normal 1.0-4.0 [facility] Comment on above: Order Comment: Order Added by Discern Expert. Performed By: #### 2 923013, 8571388, 4010872, 6791060, 47634297, 0423012, 6542774 #### [facility] [address] [place] [address] Monocytes/100 WBC (Bld) 6.8 % Normal 4.0-14.0 [facility] Comment on above: Order Comment: Order Added by Discern Expert. Performed By: #### 2 393512, 0318323, 9248436, 9825705, 61094960, 7270624, 8784687 #### [facility] [address] [place] [address] Monocytes/Leukocytes Auto (Bld) [Pure # fraction] 0.6 E9/L Normal 0.2-1.0 [facility] Comment on above: Order Comment: Order Added by Discern Expert. Performed By: #### 2 230276, 6776579, 0987967, 1520185, 68834076, 7786799, 7086194 #### [facility] [address] [place] [address] Neutrophils/100 WBC (Bld) 71.6 % Normal 36.0-75.0 [facility] Comment on above: Order Comment: Order Added by Discern Expert. Performed By: #### 2 466690, 0827931, 3628713, 0672819, 76590949, 4061928, 7819965 #### [facility] [address] [place] [address] Neutrophils/Leukocytes Auto (Bld) [Pure # fraction] 6.2 E9/L Normal 2.0-7.5 [facility] Comment on above: Order Comment: Order Added by Discern Expert. Performed By: #### 2 877608, 7854609, 1395247, 2162549, 15556069, 6761137, 0209178 #### [facility] [address] [place] [address] BMPon 09-02-2022 Creatinine [Mass/Vol] 0.4 mg/dL Low 0.5-1.3 [facility] Comment on above: Performed By: #### 2 711495, 8186878, 5026159, 0566331, 55048856, 5993881, 2398710 #### [facility] [address] [place] [address] Urea nitrogen [Mass/Vol] 5 mg/dL Normal 5-21 [facility] Comment on above: Performed By: #### 2 421990, 4605194, 1371398, 2100519, 78316200, 5599815, 6973467 #### [facility] [address] [place] [address] Urea nitrogen/Creatinine [Mass ratio] 12 No Units Normal 10-20 [facility] Comment on above: Performed By: #### 2 769408, 5577375, 5937105, 1045670, 73142945, 8390789, 7972349 #### [facility] [address] [place] [address] Anion gap [Moles/Vol] 12 mmol/L Normal 6-16 [facility] Comment on above: Performed By: #### 2 886667, 7682642, 7098954, 6823752, 30048633, 9941012, 6484671 #### [facility] [address] [place] [address] Calcium [Mass/Vol] 9.0 mg/dL Normal 8.9-11.1 [facility] Comment on above: Performed By: #### 2 139810, 9865856, 7326960, 3834645, 71185356, 6405796, 2071799 #### [facility] [address] [place] [address] Chloride [Moles/Vol] 103 mmol/L Normal 101-111 [facility] Comment on above: Performed By: #### 2 558133, 9141636, 7184170, 5958117, 83068856, 4631095, 3635264 #### [facility] [address] [place] [address] CO2 [Moles/Vol] 23 mmol/L Normal 21-31 [facility] Comment on above: Performed By: #### 2 681613, 9602381, 9411327, 1081641, 14441468, 7706607, 7653231 #### [facility] [address] [place] [address] Glucose [Mass/Vol] 96 mg/dL Normal 55-199 [facility] Comment on above: Result Comment: If t his glucose result represents a fasting glucose, interpretation should refer to the following reference range: 55-99 mg/dL Performed By: #### 2 397039, 6051647, 6498828, 5998058, 21583879, 0697889, 7756678 #### [facility] [address] [place] [address] Potassium [Moles/Vol] 3.3 mmol/L Low 3.5-5.3 [facility] Comment on above: Performed By: #### 2 392969, 0750523, 6421433, 6610784, 61754947, 5450063, 8868196 #### [facility] [address] [place] [id number] Sodium [Moles/Vol] 135 mmol/L Normal 135-145 [facility] Comment on above: Performed By: #### 2 905814, 0384342, 8163767, 8996463, 35967372, 0312778, 8067944 #### [facility] [address] [place] [id number] CBC w/ Auto Diffon 3 Erythrocyte distribution width (RBC) [Ratio] 13.0 % Normal 10.9-14.2 [facility] Comment on above: Performed By: #### 2 613635, 2933713, 5045705, 7546956, 83995570, 1324579, 5657448 #### [facility] [address] [place] [id number] Hematocrit (Bld) [Volume fraction] 38.7 % Normal 34.0-46.0 [facility] Comment on above: Performed By: #### 2 044057, 7436475, 0708593, 2086780, 51124029, 6021503, 1804913 #### [facility] [address] [place] [id number] Hemoglobin (Bld) [Mass/Vol] 13.2 g/dL Normal 12.0-16.0 [facility] Comment on above: Performed By: #### 2 349746, 6335648, 7971217, 3436043, 76857457, 7412101, 5498624 #### [facility] [address] [place] [address] MCH (RBC) [Entitic mass] 29.3 pg Normal 27.0-34.0 [facility] Comment on above: Performed By: #### 2 747534, 3822556, 4409077, 9212493, 17315031, 1239078, 5942677 #### [facility] [address] [place], [place] [address] MCHC (RBC) [Mass/Vol] 34.2 g/dL Normal 31.4-36.0 [facility] Comment on above: Performed By: #### 2 028756, 9665933, 3295299, 5096691, 26751966, 2730817, 9521638 #### [facility] [address] [place] [address] MCV (RBC) [Entitic vol] 85.6 fL Normal 80.0-100.0 F [facility] Comment on above: Performed By: #### 2 249940, 6712650, 3084063, 0454373, 53021911, 8263152, 5706646 #### [facility] [address] [place], [place] [address] Platelet mean volume (Bld) [Entitic vol] 8.2 fL Normal 6.4-10.8 [facility] Comment on above: Performed By: #### 2 607504, 0088845, 0871965, 8589993, 11867410, 7035000, 8035904 #### [facility] [address] [place] [address] Platelets (Bld) [#/Vol] 281.0 E9/L Normal 150.0-500.0 [facility] Comment on above: Performed By: #### 2 509124, 5385146, 8023454, 9755105, 56696673, 0580804, 2885977 #### [facility] [address] [place] [address] RBC (Bld) [#/Vol] 4.5 E12/L Normal 4.3-5.9 [facility] Comment on above: Performed By: #### 2 079144, 7451786, 2526683, 2515507, 02324806, 8511808, 8539232 #### [facility] [address] [place] [address] WBC corrected for nucl RBC Auto (Bld) [#/Vol] 8.6 E9/L Normal 4.0-11.0 [facility] Comment on above: Performed By: #### 2 713657, 8003048, 6150113, 0699175, 38065750, 6075290, 3036232 #### [facility] [address] [place] [address] Coding Summary.on 09-02-2022 Coding Summary. [id number] Gh0bWw+PGhlYWQ+PE1FV FAhC11olFKpoK7FG1bLE H1SOIPGOFHGYP8PUC7ho OQ2LOxuZ7EhkvJx GkwtbCOlIC59LQi1IUB2 lCzmMZpopX6wfXCpC0r3 VgAbJX94bJ72QDkcQSKh TkC1LwVeloiwwSOs E6ayBzFgjTQpZmm+PHRh YmxlIHdpZHRoPScxMDAl LiWqeNjuKN4kGl0jXMJt LWNvbGxhcHNlOiBj g9ibFSGiRUldPQ9dyHsu K1DasRO0NDKrw3v1Qq71 dHI+PERiFER4oBbnIMkd g610MmFlq1fbLRU3 yWDnWKtkFTH0B25qz3W6 WLZsNUFqPGR8eGJ8hR6a rJydnwgeG3YxhJVyYjZ8 EEY7dJKfyF2stVdh cyxsbO1sEgh+U69LIC1X JGUXVW1CHho4D9YkBvbm dHI+NL32WWAxUK22mFQs cPPpa3ruwFv5CfCu HWEoZYB2sLskKArvg9Iq YRRdV55xcRFst9Q1KKPr fDdqjSBlAqTvlJD2tI5x LBsokwfje1bxraal Kbriy7nlax32cJ84L37n KAedEWWoGYF8DNAzVGXo fKkkdx7asG0rJo3+IDxj m8vkz9mrkFi0HbJc ALLkucUlcVvbYGF1u1Ah Zd22E7HboVpvh1MlOev3 fx49dGAyn7D8fGE2SHnc NPEdaI8qCHbpJnP3 UDFdJdXbkS14hBMhKVgk Zi8pnJwewLllSW3aADJp nasqQPEixZ5nPEZfnFMb gQyoGW9tBQGcwcov f279UvPdFCH1XNRjsCJk Q0MbtE4tXlFlZFThDOZe P6ZjrUVpLAofO941HSbl JsX2AFIcqxSeZ7Jt SOZwqFlzHcZ3b3C9Eg1Z u0HakiqwCZD8FGzyOZMu ZjV9IrEtYyJ8Y0ZrMgp5 NIBoeLrvBV6tH1Nh GYYyttezlunvrWF6VPDg EVXmrR88fIVcEKtiCz2z s1B6l426BZJeYILbeP35 Fj3luBnxWDDunGGE tV3gkxbre9blowswWlOu MBOzUSv1BBj5LOWrmXoz IqWqUUW5WvD1LBG4aHFj nR5hhUyjaaflqA1s Oyc+Y98hnR9wRZZ2PLQ8 ndqyWDEbudMyVV08BT31 U6JcGtmcpOQqyRH+PGRp dnZinQusNW2bEvMj n3vtr8PyUSqoQ5RnSDRj RZhkMgm4ORDhVQS7bTZ1 hV9nIYZoUCebi4X6sPE4 K0NjjkOzkc1er0je FBYbXSzgD03siVNeb3B6 WECjpRU8ZXBjcUksTkJj kG74Ygf+ZSIzkMaft7Gz Lxfkq1nhf2apcEa5 IjMwJSIgdmFsaWduPSJ0 n1GtNg44V40zSUafWYFa QKUnTYBfCYRfaYfoow6r xN5sHv7+PGNvbCB3 zYK1xF4dYQPzEaR9JYov M201NqYooWDgKrxrx9gz y4bwvAv1BeZvCWPajuCj eDyyGHT1l9ZxPe68 D54tCQpsDVHrQBRhCAXt FEUluZjgqs8efD4tOg5+ QU9hc5bmmc12lT05tDU+ CQYsUHI7qLckFYgt GCXjgT1sOXgaEdU0CXOh MlBfzJ21uRRzHTryVr6g tSyycByiTM8eNFCkvcno k107TnPyz3jaGFXw nRHmBTkdHCB3N75ek7S5 MPTfTPDcREQ2yPF2cZ0n bGlnbjogbGVmdDsgdmVy aMxqBTruCFvyY880 IHRvcDsnPlBhdGllbnQg KbWzGSw7R6LqLzg9FDVt wZbzCA4rnOFrMUdmVn4p iGovkFqmAP0lEPHx gsqpy688UaKop3upVFMc pWAbBCaiAUD9F43rp5Y4 DPJnBNCnYRB2xQC4iJ4p bGlnbjogbGVmdDsg ohAfnOriMMukAAcgM477 IHRvcDsnPkJpcnRoIERh bVP0AV74SM47zOXqq6Q6 kUT0Y7DfXUYgkegr wlzyaMG1FQGwBEYgfT14 Ep8fzVlxYc2xZDLfIUP5 PTEutFAkO0PynX4dYuJz TFReVKGyC6ZnhPJr RFqkA932YOdtTkU0HAJc wjFaJ7FsLJYmpVkqZeF9 w0B5Vt8HZ9J3LL01IL95 tGNpf4M6yUS4Q0Uf PSZaljqszkxahCC2RNNo GZMgoS60Yf8qfXolPh4m LPAlLYI2WQDszDMtO4Si qD0nVqVfCPRaKVEx F5PruLQpFKhtI741RSvz MkS0SBYlvkTtJ0RvIMIt rVqbLqN5h9W9Wv4UDPk4 KC81BA87jHBrv2T2 fOS3P1YgJHRraamguoqd tHP6WGKnKYPzyE17Tl6o aAqgDi9fTKPvARY9QNNo cBLcW8UklN5kGkXk WBIpERThI2BywJWmBVwt D700FHjkVeQ7LGPkjlGn S0WdXONhlDniSzG2t2M5 Hp8UTJAyQR36OVS7 xKA0UK62MT84X0JrXvob dGFibGU+PHRhYmxlIHdp ZHRoPScxMDAlJyBzdHls YC1dYm7aLZQwHNZm pEypiDLdLdDzq8zoQROe KZhrEF2jbVusW3RoqWN1 LIMcw0j3Tf03W88tJ4Tz dXA+XFDtmNL8iHR7 wJ3pVwGnUcV5VFxzO468 McOtxZYgHtljk5hcw2uc iSi9DyZ3SKOmrmGxkTvi QJM6g1XsHt54U70u IHdpZHRoPSIxNSUiIHZh iMrvuv4jmH2wLu6+PGNv vRU0qSQ2zM2kSsTdZfA8 RHtoI625TwTxgWSj Ifksh0vuj6qneHg8JiNc KUMjbcZjqQduJXZ6f4Pm Gr46U3OjqYuon9LeJcx2 lj75fBGcv8C2yJB7 R3KrLAZwoubdhEBiqDcw PH5pTBDiqmsvLTBflH6m HCOdT2e9IpHwSaQ1CNnn V3KlvbA1YUVbwRAk JWwbHMI3X47mm5K8FODh FOHgDRD8mNX7hI6jkCbz bjogbGVmdDsgdmVydGlj BZchQLhgW027GFCe lEgeOJOtoD5rIDBczVFf zPfeGZ4eNWKiljnzSe0Q QZCCQSKHROJSUCPKHJ0J MA56E4WkBtc2IFCf pFrcOT0amYPhGKyqPj8o rBcnnHlsHV8iITQzyvls CGTifK3uYCYmoOCvfUdm EH8vGWZcoqnef594 HsBcEYH4QDVdxVUhG4Go oB4dPlAtBEAhKIDwH6Pd xBJgZLriC812LDhwUaE5 UTNddhBiH0RlDCQv fYqoXdP9w4Y0La1iLP8i UJ0dETBgIH32KJ18oJAc t8M3iGN7G3FqVLWbhsao orcxwUA3CUPoVBRv lK73dXXbKDmhNs4xo5N5 x238DFZcCQKhyT68Vw7z yZpiFBWrgMQVtP4uhepc s4qavvphLxJaMLZs ACt6UVm3WVKknJtbLzRj TCZ0GtO6OZZ2yVYmcT4k vHzuegzroP3fNsl+MjEg TMLspoQ1T2OyZmt2 BSQztHwrWW0yfBDbBWxb Om1mfEgstHigON3sSZFi qtnsPFKemE1lJDJzqNOr cBhpQA7rQRRzwyus l876PhSxHKQ1VYNmhEJt J6KlhY1mDuCyZDIgUDOw E6MjzIXiTFvuC181LOnn DzW9KOZdxuNxD2Wj YGPdjUbbHvH3q5X5Lz3U SK1tsNL0P5AfZna3EYCt wLsxCX7dxGHvPWsyCs6q sZhutOdcJL0vMTTq lwofERAsjM4uJPBokDGj dRkvSQ4iUMRczlpxm972 VkBaHTO4NBBxhRCeI4Zn aB4hYoLqCZSeWEPn Q8TddIOlMVjqS344EJfd YeM1MZDqisMwT1WdRECs gAarTbO3i1C1Bb3XjMCo R9TtP3q1W3NxFhnz dHI+XI56CLOyXR24dYMs jMVfi3ysfGk9YoMzOZWa FIA9nDsfJFyul6PnTDXx D29awXHgu6C4TQLk vJdkxNWvObCmfZT6wY8t QYmhufmsn1onmcqbZvne u4cehj64mP15P07pMCao ZHRoPSIzMCUiIHZh zIweeq5meA1uBv3+PGNv mEW9iDG0pK1fEiKtCjD1 BXyfE497GxOipIRmGluh v4xhk6lwpYc6SeKr MFLqniAzxKxpELB0g6Ga Or42H69dXGfmRZQmTBHu TMNnLZWhlCrkzb6xxZ7k Ii8+UI9eb2dure87 zA47yGN+SANaNDU3rBih SNdiCFJgsK0vWTkqEiX6 CPZcRfIeyH97rLRjSPeo Wh2hpPbtuEpyLX0p YOLjalkkh066JtWii8ca EMBxzCTqTUdiUXB8E79c e6P5HUVtFBYbSLP2qHX9 wN1zgDievwlvzFNx dDsgdmVydGljYWwtYWxp C361PSSgaMjjBcJtxMRi Y1xrebJHUT6bQsxauXY+ PNHhBRX4zXpxSGmf AATsgY6wDVZdM0o7ZqKm IlU4CXwuN6FspbC3OYWm cDUxOZRngMIUjS9yeadj a5cyammuRbNqPBVk OUj2VCc6OMBqoShgWwPh IZG5TqK4HAK4rEKweJ1v jNrkjcjknS6yZgv+RklO OjwvdGQ+PHRkIHN0 oIoeAUilBJByqC6pHZIo I5a8FmOdCzB8TAapG3Ib tbK2ORKxeQJrHGMyzVZB nC2wqsefs5rjmvga UdYwHTHaPHd4AAk3WSCt nPebGrApHGX7CcA7VKT8 fWEweH1hjMkoomaslP0i Oyc+TVJOOjwvdGQ+ AURtPEK7uTfdXAblVMJz xF7rUNYwN3c5RfAgWzV9 WIkqD0GeeyA3PQCraPNx KIXzvGMCtV0kqufu z7qguumnMbPhRXHbKBo3 CCo4CCBkgSimSzJrLEQ5 WgF4LGN0tPChsE0clNtd qxtkoE8fMcf+UGF5 FIY1FF55BW39H0BmClmo dGFibGU+PHRhYmxlIHdp ZHRoPScxMDAlJyBzdHls LH7wHh8cZHDpYONl bGxh (more content not included)... Normal [facility] Consent for Treatmenton Consent for Treatment [id number] Normal [facility] Discharge Instructionson Discharge Instructions [id number]:127 Normal [facility] ED Clinical Summaryon 2022 ED Clinical Summary [place] [id number] ED Clinical Summary Person Information Name: ROQUE PIERSON Maribel/[facility] Age: 22 Years : 2000 Sex: Female Language: Bahraini PCP: Caryn Aviles MD Marital Status: Single [...] 09/02/2022 01:12:07 09/02/2022 01:12:07 09/02/2022 01:12:07 ADDRESS: [address] [place] [phone] PHYS DOC NOTES: MEDICAL INFORMATION: Prescriptions Given: [...] Vomiting, Adult Follow up: With: Address: When: aCryn Aviles [address] [place] [address] Business (1) In 3 days DIAGNOSIS: N&V (nausea and vomiting) Normal [facility] ED Note-Physicianon 09-02-19 ED Note-Physician Basic Information [...] PRN Follow-up With When Contact Information Caryn Stefan In [address] [place] [address]- Business (1) Additional Instructions: Patient Education Nausea [...] (09/01/22 22:50:00) (more content not included)... Normal [facility] Comment on above: Result Comment: Elec tronically [...] added (diluted fruit juice). ? Eat bland, ibig-hv-cisxwh foods in small amounts as you are able. These foods include bananas, applesauce, rice, lean meats, toast, and crackers. ? Avoid fluids that contain a lot of sugar or caffeine, such as energy drinks, sports drinks, and soda. ? Avoid alcohol. ? Avoid spicy or fatty foods. General instructions ? Take yffp-ikq-gphyvlw and prescription medicines only as told by your health care provider. ? Drink enough fluid to keep your urine pale yellow. ? Wash your hands often using soap and water. If soap and water are not available, use hand tub washer. ? Make sure that all people in [...] and drinking to prevent dehydration. ? Take fhyd-vqt-oljevzr and prescription medicines only as told by [...] Reviewed: 01/19/2019 [employer] Patient Education ? 2019 [employer] Normal [facility] ED Patient Summaryon 023 ED Patient Summary [place] [address] Patient Discharge Instructions Person Information Name: ROQUE PIERSON Age: 22 Years Arrival Date: 09/01/2022 22:21:17 Discharge Diagnosis: N&V (nausea and vomiting) Primary Care Physician: Caryn Aviles MD Provider Information Primary Provider: Coleman Ludwig DO [employer] Superintendent:Renay The exam and treatment you received in the Emergency Department were for an urgent problem and are not intended as complete care. It is important that you follow up with a doctor, nurse practitioner, or physician?s nurseryman assistant for ongoing care. If your symptoms [...] With: Address: When: Caryn Aviles [address] [facility] [place] [address] Business (1) In 3 days In the event that this physician does not participate in your insurance network, please consult with your insurance company to find a nearby participating provider. Patient Education Materials: Nausea and Vomiting, Adult A MESSAGE TO ALL PATIENTS REGARDING OPIOIDS PRESCRIPTION OPIOIDS: WHAT YOU NEED TO KNOW Prescription opioids can be used to help relieve sfacbihu-ve-cixdln pain and are often prescribed following a [...] be struggling with addiction, tell your health health care technician and ask for guidance or call [facility] National Helpline at 6-110-864-MTPK. f Source: Department of (more content not included)... Normal [facility] Hep Func Panelon 09-02-2022 Bilirubin.indirect [Mass or moles/Vol] UTC Abnormal 0.1-0.9 [facility] Comment on above: Result Comment: Resu lt verified by Discern Rule. Performed result UT (Unable to Calculate) was sent as an Alpha code due the inability to calculate a valid numeric value. Performed By: #### 2 990906, 9641384, 4709232, 6327148, 31034876, 6615356, 9192965 #### [facility] [address] [place] [address] Albumin [Mass/Vol] 4.2 g/dL Normal 3.3-5.0 [facility] Comment on above: Performed By: #### 2 411007, 2486231, 1422747, 1752451, 49967807, 9219381, 7163579 #### [facility] [address] [place] [address] Albumin/Globulin (S) [Mass conc ratio] 1.4 Normal 1.1-2.2 [facility] Comment on above: Performed By: #### 2 263358, 1811914, 7525894, 9432469, 39169548, 8162407, 3567430 #### [facility] [address] [place] [address] ALP [Catalytic activity/Vol] 63 Int._Unit/L Normal 21-98 [facility] Comment on above: Performed By: #### 2 273346, 1391083, 7253101, 8227289, 68100908, 2696072, 1680889 #### [facility] [address] [place] [address] ALT No additional P-5'-P [Catalytic activity/Vol] 29 Int._Unit/L Normal 6-46 [facility] Comment on above: Performed By: #### 2 482035, 4001635, 8618680, 8725719, 03250354, 6487702, 3309573 #### [facility] [address] [place] [address] AST [Catalytic activity/Vol] 18 Int._Unit/L Normal 5-43 [facility] Comment on above: Performed By: #### 2 198906, 8525071, 7373899, 4058565, 60118363, 8252447, 7568751 #### [facility] [address] [place] [address] Bilirubin [Mass/Vol] 0.8 mg/dL Normal 0.0-1.1 [facility] Comment on above: Performed By: #### 2 082617, 6752392, 9229969, 4668403, 91082302, 3098147, 5041337 #### [facility] [address] [place] [address] Bilirubin.direct [Mass/Vol] mg/dL Normal 0.1-0.4 [facility] Comment on above: Performed By: #### 2 554763, 7607882, 7191290, 0140858, 08476212, 3215864, 1156691 #### [facility] [address] [place] [address] Globulin (S) [Mass/Vol] 3.1 g/dL Normal 1.4-4.0 [facility] Comment on above: Performed By: #### 2 731579, 0813420, 3316733, 5878697, 80996389, 9350558, 5571233 #### [facility] [address] [place] [address] Protein [Mass/Vol] 7.3 g/dL Normal 6.0-7.8 [facility] Comment on above: Performed By: #### 2 734851, 3585024, 3098277, 5727217, 43927826, 0510052, 2023911 #### [facility] [address] [place] [address] Lipase Levelon 09-02-2022 Lipase [Catalytic activity/Vol] 26 U/L Normal 13-58 [facility] Comment on above: Performed By: #### 2 063569, 5114669, 2307482, 2236123, 06461528, 3028965, 8481667 #### [facility] [address] [place] [address] UA With Cult Reflexon 2022 Bacteria LM Ql (Urine sed) TRACE Normal Trace [facility] Comment on above: Performed By: #### 1 5886137 ####[facility] [address] [place] [address] Bilirubin Ql (U) Negative Normal Negative [facility] Comment on above: Performed By: #### 1 1582308 ####[facility] [address] [place] [address] Clarity (U) CLEAR Normal Clear [facility] Comment on above: Performed By: #### 1 8202371 ####[address] [address] Color (U) YELLOW Normal Yellow [facility] Comment on above: Performed By: #### 1 2856343 ####[address] [address] Epithelial cells.squamous LM.HPF (Urine sed) [#/Area] 0-2 Normal 0-2 [facility] Comment on above: Performed By: #### 1 8282453 ####[facility] [address] [place] [address] Glucose Test strip (U) [Mass/Vol] Negative Normal Negative [facility] Comment on above: Performed By: #### 1 6619994 ####[facility] [address] [place] [address] Hemoglobin Ql (U) Negative Normal Negative [facility] Comment on above: Performed By: #### 1 8865657 ####[address] [address] Ketones (U) [Mass/Vol] 3+ Abnormal Negative [facility] Comment on above: Performed By: #### 1 7906724 ####[facility] [address] [place] [address] [place].plasma/[place].R BC (Bld) [Mass ratio] 0-3 Normal 0-3 [facility] Comment on above: Performed By: #### 1 2579487 ####[facility] [address] [place] [address] Mucus Ql (Urine sed) 2+ Normal [facility] Comment on above: Performed By: #### 1 7710436 ####[address] [address] Nitrite Ql (U) Negative Normal Negative [facility] Comment on above: Performed By: #### 1 3042257 ####[address] [address] pH (U) 7.5 [pH] Invalid Interpretation Code 5.0-9.0 [facility] Comment on above: Performed By: #### 1 4333819 ####[address] [address] Protein (U) [Mass/Vol] Negative Normal Negative [facility] Comment on above: Performed By: #### 1 8949815 ####[address] [address] Specific gravity (U) [Rel density] 1.020 Invalid Interpretation Code 1.005-1.030 [facility] Comment on above: Performed By: #### 1 1294891 ####[address] [address] Type of Urine collection method Clean Catch Normal [facility] Comment on above: Performed By: #### 1 2667482 ####[address] [address] Urobilinogen Qn (U) 0.2 {Andrea'U}/dL Normal 0.0-1.0 [facility] Comment on above: Performed By: #### 1 3866332 ####[address] [address] WBC Auto Ql (U) Negative Normal Negative [facility] Comment on above: Performed By: #### 1 9899882 ####[address] [place] [address] WBC LM.HPF (Urine sed) [#/Area] 0-5 Normal 0-5 [facility] Comment on above: Performed By: #### 1 5731335 ####[facility] [address] [place] [address] eGFRon 09-02-2022 GFR/1.73 sq M.predicted among blacks MDRD (S/P/Bld) [Vol rate/Area] mL/min/{1.73_m2} Normal >=59 [facility] Comment on above: Order Comment: Order Added by Discern Expert. Result Comment: eGFR is race adjusted. AA=. Performed By: #### 2 358387, 2348291, 4528935, 3832477, 55727900, 2909209, 6569461 #### [facility] [address] [place] [address] GFR/1.73 sq M.predicted among non-blacks MDRD (S/P/Bld) [Vol rate/Area] mL/min/{1.73_m2} Normal >=59 [facility] Comment on above: Order Comment: Order Added by Discern Expert. Result Comment: Ramp Manager emil kidney disease could be indicated at eGFR's of less than 60 mL/min/1.73m2. Kidney failure is indicated at less than 15 mL/min/1.73m2. Performed By: #### 2 014440, 3105532, 9175521, 6404245, 46807117, 0352943, 8716797 #### [facility] [address] [place] [address] ABO/Rhon 08-29-2022 ABO/Rh Positive Invalid Interpretation Code [facility] Comment on above: Performed By: #### 1 4194231 #### [facility] [address] [place] [address] Auto Diffon 08-29-2022 Basophils/100 WBC (Bld) 0.6 % Normal 0.0-2.0 [facility] Comment on above: Order Comment: Order Added by Discern Expert. Performed By: #### 2 914775, 7327102, 2774087, 6567143, 52882974, 6586955, 2405524 #### [facility] [address] [place] [address] Basophils/Leukocytes Auto (Bld) [Pure # fraction] 0.0 E9/L Normal 0.0-0.2 [facility] Comment on above: Order Comment: Order Added by Discern Expert. Performed By: #### 2 175072, 6781001, 0550261, 7508802, 59255608, 8461531, 8977011 #### [facility] [address] [place] [address] Eosinophils/100 WBC (Bld) 5.7 % Normal 0.0-8.0 [facility] Comment on above: Order Comment: Order Added by Discern Expert. Performed By: #### 2 835307, 2614961, 3184270, 4550786, 28276588, 1831372, 2560665 #### [facility] [address] [place] [address] Eosinophils/Leukocytes Auto (Bld) [Pure # fraction] 0.5 E9/L Normal 0.0-0.5 [facility] Comment on above: Order Comment: Order Added by Discern Expert. Performed By: #### 2 536261, 2778374, 6300917, 4279510, 40091473, 2115690, 4004844 #### [facility] [address] [place] [address] Lymphocytes/100 WBC (Bld) 20.5 % Normal 14.0-50.0 [facility] Comment on above: Order Comment: Order Added by Discern Expert. Performed By: #### 2 823976, 2845290, 6370822, 1517200, 52186050, 8281336, 5061165 #### [facility] [address] [place] [address] Lymphocytes/Leukocytes Auto (Bld) [Pure # fraction] 1.7 E9/L Normal 1.0-4.0 [facility] Comment on above: Order Comment: Order Added by Discern Expert. Performed By: #### 2 754157, 9208560, 6294529, 6747694, 76605771, 8921269, 7348269 #### [facility] [address] [place] [address] Monocytes/100 WBC (Bld) 8.4 % Normal 4.0-14.0 [facility] Comment on above: Order Comment: Order Added by Discern Expert. Performed By: #### 2 399914, 0920713, 9433073, 8912199, 74978224, 0610274, 4404334 #### [facility] [address] [place] [address] Monocytes/Leukocytes Auto (Bld) [Pure # fraction] 0.7 E9/L Normal 0.2-1.0 [facility] Comment on above: Order Comment: Order Added by Discern Expert. Performed By: #### 2 194434, 4456050, 0102553, 2462100, 77297406, 3394896, 7735483 #### [facility] [address] [place] [address] Neutrophils/100 WBC (Bld) 64.8 % Normal 36.0-75.0 [facility] Comment on above: Order Comment: Order Added by Discern Expert. Performed By: #### 2 443924, 7970339, 8837038, 8616444, 58363752, 3262923, 4371343 #### [facility] [address] [place] [address] Neutrophils/Leukocytes Auto (Bld) [Pure # fraction] 5.3 E9/L Normal 2.0-7.5 [facility] Comment on above: Order Comment: Order Added by Discern Expert. Performed By: #### 2 886020, 2487354, 7474486, 0931646, 53397579, 7579889, 8198339 #### [facility] [address] [place] [address] BMPon 08-29-2022 Creatinine [Mass/Vol] 0.6 mg/dL Normal 0.5-1.3 [facility] Comment on above: Performed By: #### 2 435141, 7459837, 9587986, 3299524, 50861098, 2175162, 6952223 #### [facility] [address] [place] [address] Urea nitrogen [Mass/Vol] 6 mg/dL Normal 5-21 [facility] Comment on above: Performed By: #### 2 758280, 2307103, 3891906, 2739202, 03224619, 8392700, 0977058 #### [facility] [address] [place] [address] Urea nitrogen/Creatinine [Mass ratio] 10 No Units Normal 10-20 [facility] Comment on above: Performed By: #### 2 519168, 2352441, 1553816, 8685681, 20037273, 7782345, 0012551 #### [facility] [address] [place] [address] Anion gap [Moles/Vol] 11 mmol/L Normal 6-16 [facility] Comment on above: Performed By: #### 2 955516, 4977167, 4731074, 0421194, 02142821, 6280387, 2669672 #### [facility] [address] [place] [address] Calcium [Mass/Vol] 9.1 mg/dL Normal 8.9-11.1 [facility] Comment on above: Performed By: #### 2 205546, 9671663, 1316801, 3434071, 94746784, 4279427, 1769909 #### [facility] [address] [place] [address] Chloride [Moles/Vol] 105 mmol/L Normal 101-111 [facility] Comment on above: Performed By: #### 2 705016, 1024310, 6615589, 5726421, 45712229, 5126975, 3859496 #### [facility] [address] [place] [address] CO2 [Moles/Vol] 23 mmol/L Normal 21-31 [facility] Comment on above: Performed By: #### 2 009442, 9459661, 1500358, 1606973, 44058800, 0334229, 4801061 #### [facility] [address] [place] [address] Glucose [Mass/Vol] 103 mg/dL Normal 55-199 [facility] Comment on above: Result Comment: If t his glucose result represents a fasting glucose, interpretation should refer to the following reference range: 55-99 mg/dL Performed By: #### 2 243597, 6690797, 3102492, 0558884, 79774704, 0588785, 8552397 #### [facility] [address] [place] [address] Potassium [Moles/Vol] 3.7 mmol/L Normal 3.5-5.3 [facility] Comment on above: Performed By: #### 2 440606, 8659491, 9127151, 6595355, 35688260, 8220962, 8337317 #### [facility] [address] [place] [address] Sodium [Moles/Vol] 135 mmol/L Normal 135-145 [facility] Comment on above: Performed By: #### 2 140492, 0677028, 2706208, 2979714, 98548124, 4674235, 4574964 #### [facility] [address] [place] [address] BhCG Quanton 08-29-2022 [place] [address] m[IU]/mL High 1-3 F [facility] Comment on above: Result Comment: GEST ATIONAL AGE HCG RANGE (mIU/mL) NON- <1-3 0.2-1 WEEKS 5-50 1-2 WEEKS 50-500 2-3 WEEKS 100-5,000 3-4 WEEKS 500-10,000 4-5 WEEKS 1,000-50,000 5-6 WEEKS 10,000-100,000 6-8 WEEKS 15,000-200,000 8-12 WEEKS 10,000-100,000 Performed By: #### 2 036751, 2617532, 9731143, 6663636, 00224551, 2270232, 5888718 ####[facility] [address] [place] [address] CBC w/ Auto Diffon 3 Erythrocyte distribution width (RBC) [Ratio] 13.1 % Normal 10.9-14.2 [facility] Comment on above: Performed By: #### 2 496186, 5695417, 7299719, 0718737, 82572982, 9230745, 0661431 #### [facility] [address] [place] [address] Hematocrit (Bld) [Volume fraction] 39.2 % Normal 34.0-46.0 [facility] Comment on above: Performed By: #### 2 406353, 0901678, 6384725, 1433182, 91160044, 1501417, 4705850 #### [facility] [address] [place] [address] Hemoglobin (Bld) [Mass/Vol] 13.5 g/dL Normal 12.0-16.0 [facility] Comment on above: Performed By: #### 2 581161, 2544695, 7412233, 1392768, 22140569, 0596983, 8232949 #### [facility] [address] [place] [address] MCH (RBC) [Entitic mass] 29.5 pg Normal 27.0-34.0 [facility] Comment on above: Performed By: #### 2 827250, 8744056, 6781484, 2881089, 69728592, 5658881, 2610920 #### [facility] [address] [place] [address] MCHC (RBC) [Mass/Vol] 34.3 g/dL Normal 31.4-36.0 [facility] Comment on above: Performed By: #### 2 000102, 9443782, 0937049, 1749622, 99997790, 8637385, 3661173 #### [facility] [address] [place] [address] MCV (RBC) [Entitic vol] 85.8 fL Normal 80.0-100.0 F [facility] Comment on above: Performed By: #### 2 752797, 8274281, 3303649, 7175307, 00962405, 2760945, 5407166 #### [facility] [address] [place] [address] Platelet mean volume (Bld) [Entitic vol] 8.3 fL Normal 6.4-10.8 [facility] Comment on above: Performed By: #### 2 772019, 8165930, 5984108, 3766396, 60343993, 0024298, 2737420 #### [facility] [address] [place], [place] [address] Platelets (Bld) [#/Vol] 279.0 E9/L Normal 150.0-500.0 [facility] Comment on above: Performed By: #### 2 055370, 4413838, 7478328, 7414797, 49742635, 7111812, 3279662 #### [facility] [address] [place] [address] RBC (Bld) [#/Vol] 4.6 E12/L Normal 4.3-5.9 [facility] Comment on above: Performed By: #### 2 433739, 3795174, 6501346, 4890571, 76566455, 6717927, 1961949 #### [facility] [address] [place] [address] WBC corrected for nucl RBC Auto (Bld) [#/Vol] 8.1 E9/L Normal 4.0-11.0 [facility] Comment on above: Performed By: #### 2 262120, 0548663, 7971460, 0180820, 68584850, 3821846, 5329753 #### [facility] [address] [place] [address] Coding Summary.on 08-29-2022 Coding Summary. CD:[id number] Gh0bWw+PGhlYWQ+PE1FV PAlB23hzBPzzM3TH6hZX F1XGPLXMWLHCF4NSS4ep LJ9PJioH9EpvcVc ZsluiNNwQE83OLg9WBU1 nYzjRQidkZ6dwEKyR6c2 OwBwEO50eF49KCfmJIBm JuI3ZxLcquxffFDf L3xcEsGsiQFwXvy+PHRh YmxlIHdpZHRoPScxMDAl EnFsgUtrMQ5dTs0vHKQa LWNvbGxhcHNlOiBj o6rgOOLpBDieUP8lsZyy W7WspIE6GWBkj2e4Da54 dHI+SYDzFOX0qLxcNUuq b894AwRau9xrJVR6 tLUpBJryPMA8D87cx9M4 HZWeYGAeULG7qAD7sR0w iEvygvbiO0TqfMQbAuM1 RYK7iSNumW3vnCiv kxyhhP9fQuu+M39QOG6F YQHYTG0ADfo5H7ElHaeu dHI+VN37MOTgCP28xTDp rANbp1uyaZc2CsVd QUYwDAE6xLkyIJlru7Se UVTgY00ddDQak3U6USRs iXuuwXMgQuFsjVW5tF5q HIvzfshil9pcwgff Ngdbh9rmjw76wV12V17t WDfjJRZwSIO1RLAfNXIp cPkpxh5krJ6uNt0+IDxj x5mht8mqvMs8MoJf WZJepuMxhMayNRV4v0Iu Qd07H6OtsIldo0QfRjd8 im15nSDej8D8xGT2KBrx DSLpyF4dUUaeFjF0 WIQzEuBteN92zYRrBOix Zl5yfQcdjVsqXY9yCZDl nrlqMOOloV1vWVUxeHZw pEvrNY8cZOCakash c141SvNmXUX6MYNfjAMl Y4UhcL3dSuLdOPAxHPSx Q5AogYZkARhdN685MQqz UjW7WXHuapIlR7Zy ATKmoOarLcX9q6W9It4I w0MlzlnxGVT8SUceDQHs GyU3XuIgTzG7I4CpDpq6 QHAckEthPB6xZ0If RJGkeeduktzqqVF8RXMh WURadG68mMSyHOnwZz2h g8O0m840OZJpBDTiyQ44 Qd3wxKnbTXMilYJK uG9hljuih1wruqdfKdMl ORWlUJy1PVr2QJWchEww OdAoMDF8SuL3CVH1yDWw fD9mlZnqycgisQ7h Oyc+I79wyU7sVVT6QDC6 denoDNGlmvLjLV07YW27 P7RiLynjeYXppBB+PGRp uyLpuSuaFX4tQqDq s4sun1KgWOgvT7CoORQg HBhiAwk9BMPjPEN3yGI1 uW8qTJQnAKgta1X1pDO2 A8IugnZulw1cc6ys JLChZVboG65quJCzx3P6 AGGpaNA1LHImiQhlFyMp vJ87Dnd+CATfqLfgk9Eh Tuynw4seb0fnrKy6 IjMwJSIgdmFsaWduPSJ0 z6XbLx97X57uNOshJEFa QLAcAKVmQVBolTgstz1l yK0kOh9+PGNvbCB3 lPN7dR9jYJKjHfQ1VJtz K617XfJmeSVcPgwnd3od j9buoOm7VbRoBKSgziWk dTzeHXK6h6GnNb29 M31tYIirGTVbWGPbAMQt GRHipFljxs4qiQ1lHt5+ HJ8cd4jqsi19kE53xAL+ PKMlYLN9wNeuSNwz QTMchL7qACwiPkH7DIQs WdLcrJ12yMXiEQgbBa2q sIbncHorXW3kGWOeqqmj f445RhTzm9zsIRJl xILeMMsnNJT1S70ag2O3 BOLeTIXfANB5vFG3iK3t bGlnbjogbGVmdDsgdmVy rFuxNRggCWfjQ471 IHRvcDsnPlBhdGllbnQg RqFeEQr4G5PuNag1AAVj eBbiXY0xcZMoFEstMv8v qBpgmFspCB3qYYVe rujnw442YtWqq6qfHLKh bMDpEZsrRYT7I53sj2J6 YJWxNPAgCAB4sGO8nF8f bGlnbjogbGVmdDsg jiCacXseZOzaXHakW404 IHRvcDsnPkJpcnRoIERh hGM7NO96NU25wJGft3W8 mCZ9C5ZdOPGkvble gywlhZL1GOYnHCDqyG84 Zo3kuGbyMj3uXPRyBMC0 KMXgxRVuE4JhuU8nJgKg VKToULDqQ2OavHRy WTsmT900AChtJuE0UGHt oySyO5IbJALfoUlaDeI3 u1R2Ue5ZJ7N9EL65OW62 cUGbl2O6cKZ5D4Bn VPSdkhxwkyxanPV6SFWy CSZtgW78Qk5ypMqjFm8l RPAuOKU9VSNgaGUpN8Xs eZ9eOnIrRUYlAKXm E5ObaHPdZIoyT414RTjo TdO1DXYrptFwH1IpMWDi xXqsXtP9a0V5Zx2PIEy6 PJ92KU32rWOwb1L4 eHH6Z5DvNRHlubzdyzhs vBK1IKEmPVCuoD41Yp7t iTuzIl3mSBSbMME6EIGd xCDdS2YevG9vPcMv CNYtJTNyN4UfsAZnTWpq F654GUraOlQ0TZVlhxXa C1ThFNLinGkvWgD5g7U0 Ku8ADACrKA63MFN9 yFI3KR05RJ30B0NsDyhw dGFibGU+PHRhYmxlIHdp ZHRoPScxMDAlJyBzdHls SG8kKv5jEPQfXQDc wNpiwUKnClOsu9buRZAh FQjkZB8coFnmY7DlmDB7 QQVcw4f3Gz44F46hU1Lj dXA+XPVuhVN7eZF6 rC9wXcXiFvQ5OEddB920 TlFjkTHrSmkaj4ktq3yh vRf3VzM7HTWesqJmuPty WMM7l3WtWa04Y91o IHdpZHRoPSIxNSUiIHZh sHejgh2guW3yUe1+PGNv wTL8lWW0qP4vIkFyGxR2 LMljW891SiZnxZNa Ihpwf9gta6duiTb2LrKs RAUyeeEweCxiRRN9r2Eq Rj42V9QbjAxiv7WzTxh1 lu74gIBng9S2aSF6 Y8CzPRCpbmmsdQWozExz VB7eFUUrxqqxGOIucL5q ZFYtV1h8ErUgTfP3OQoj W4IwpjA1VEOatESd UJzkADG7L43xl7X0IOPc PPRjKPR9mVR9tF9suLdc bjogbGVmdDsgdmVydGlj QAbdDOrnE879ZNSb mTerMBWbzU8aUNIhbPQr jUgqMM4uCGOzczogEf3R QLWCYBAJNISPXSBHSB7W GI55F1RzHnr5TRCp xRdfWB1yjHJyLBpeIn5o yZraiGfrIK4aISIljvkq WOIsrP4gWLNtrTChhGpf WQ1wQBLjdpsot804 VtNdQSO3MWHeqTNgK5Mu tV5tLrNfGVOuRKZiU2My vFTgSWclQ549OKzlVfF9 AWRgdvLhM5HdDAQu rCxtQhQ9j0M8Sv0pGR3o HL1mQCYbQZ49FX81uUAd x9N8pIH3E5DcAKGighhx zksjrQU6RXJaESYt qQ14wACjFNpnRo9vz2S1 a477EMNgDYCrbT85No4o tYwxWUClrPBPcU3jyetf j7kdwajzYfHeVMLm ZJb3NAq0NTOvfXjgNqJf STO3NtE8KBU2jTUtqR7u bHbpqfhjzZ1uNih+MjEg RKRmpsT8N8VaSaa4 FOCbpUqmUN9ojEAjCFyg Wm7bwTndwRmmSJ6yUEQj qdnsMYIrnQ7gMUWamEYd eCucHL4sRXRfvvjo v958KaOuRWS8OCVeaPXu U0IbqP2yLbJyWOUgJNFw I5NtcGZfTHhnZ069ODrc WdX3LADsrbPvU9Sz VBPalIsdCrD4n7C0To0M IJ0beLE2G2KdFbt2KJUg hLvvVH0tlVCtRNekVj6r dUtqrSoiFC5xZPWr vcbbDEJlgK1lGUCmyIYh gOyrWI4qCKIjezslw205 FjYsPYO2UILseNQiN4Dw nA5yUiNpJMFgQYRh Q6BvaLYnSJdyK455GHxw WgT7VYSndaLxQ4OsWJFv tRfcReN1b7V8Af3JsTJo B8WeL4t0N1EyHmwo dHI+GS92VFTmQX65pTFi sKOte3hhlRf5XvSvXETb KXV5oCljOEvli3YzWKBu E60ryFOyx8B2SQAr fJzmgROyTzJkyER7wZ2z ISzfahbrg0nofvoyNbfl u2fzhj50kQ25K97sTIpp ZHRoPSIzMCUiIHZh gLpkat7ugA0dHb9+PGNv iDX5yKD4dA7wHqYzTwN9 YDzqE367TxNtnMElOstl i0hny8kytUs0AvBu PAHpmvKaxRbuYTN1e0Gp Sq61F44bELdhFMAeNLRt DEBrPRUruOsfcw4huU0h Ii8+IO1nw4wzkg72 sI01fUF+ORPmYQS3oDby ONjdKDDykI8wDUvcHyF9 YNHfBqJbbL50iMDqLYgc Mh1yoCykvNoeBD8h BOPlppsci817OdPpz7kb URLamADlEWxtOTM4B19r j5E8FVGnVFGvSBS9eDU5 eQ8hcIitetqbyPEb dDsgdmVydGljYWwtYWxp H988NFNqvWrdFuOezQIy X9fxmwYBMI0bAdaxqKN+ GVNdJTR3gRsfPJze TVKgmM6nQAKhE7n0MiUh NvN1XGuoR0RozoZ8CRId wYRqGRJxuJNChL0cqqxz u0twrpvoAkWlGIUz DUz9JJz7OSAcjUsbQdHo PCE8HnJ4WCD6xEWzrJ9s pZkujzpgbT7fBlv+RklO OjwvdGQ+PHRkIHN0 dCyfPUmdVHGgnU6lYVJq W2p0ChFzKxC3WWnmN2Qb zuC5NTMwkEDvJTFdaFDW eY9dvdmur7rkmsid QzReSCCsSGe3KHs8GSMy zYoeYmOeUZN9PtV2CNJ2 wLHskC1arYycliapcR5q Oyc+TVJOOjwvdGQ+ BVAiYRS9cYhbAZdgKTGn rS9dMUUfY8a8OqTtCiN3 CSoxB5BguxU5FRRpcQSz OLZhpUANtK2bcbme k5glfebeHgPeFQCpHQu3 FPo7ZQFxjRphNtSbKVO0 XaY8EJA8pXIffL0miLvx fkepiU8rOel+UGF5 NLH1RM63FE41V2ByXjgs dGFibGU+PHRhYmxlIHdp ZHRoPScxMDAlJyBzdHls CP3lDd3cAIXvKJRt bGxh (more content not included)... Normal [facility] Discharge Instructionson Discharge Instructions [id number] Normal [facility] ED Clinical Summaryon 2022 ED Clinical Summary [place] [id number] ED Clinical Summary Person Information [facility] Age[facility] 22 Years : 2000 Sex: Female Language: Bahraini PCP: Ambrose Urbano MD Marital Status: Single [...] 08/29/2022 01:49:39 08/29/2022 01:49:39 08/29/2022 01:49:39 ADDRESS: [address] [place] [phone] PHYS DOC NOTES: MEDICAL INFORMATION: Prescriptions Given: [...] Pain During Follow up: With: Address: When: uJlius CROCKETT [facility], [address] [place] [address] [place] [address] [facility] (1) In 3 days 09/01/2022 Comments: Return to the emergency room if your pain gets worse, general bleeding, vomiting or any new symptoms With: Address: When: Ambrose Urbano [address], [address] [place] [phone] Business (1) In 3 days DIAGNOSIS: 1:Abdominal pain; 2:Intrauterine ; 3:Nausea Normal [facility] ED Note-Physicianon 08-29-19 ED Note-Physician Basic Information Time Seen: Mikaelacali ZieglerAlfredito 08/28/2022 21:39 Chief Complaint pt to ED [...] and Complexity of Problems Differential Diagnosis: [] [facility] Data External documents reviewed: [] My [...] Information Julius CROCKETT In 3 days 09/01/[address] , [place] [address]- Business (1) Additional Instructions: Return to the emergency room if your pain gets worse, general bleeding, vomiting or any new symptoms Ambrose Hoy (more content not included)... Normal [facility] Comment on above: Result Comment: Elec tronically Signed By: Anu Ziegler, Alfredito Hoang\.basil\Date and Time Signed: 08/29/22 03:00 [facility] ED Patient Education Noteon 08-29-2022 ED Patient [...] added (diluted fruit juice). ? Eat bland, fxqr-vl-hgaznh foods in small amounts as you are able. These foods include bananas, applesauce, rice, lean meats, toast, and crackers. ? Avoid drinking fluids that contain a lot of sugar or caffeine, such as energy drinks, sports drinks, and soda. ? Avoid alcohol. ? Avoid spicy or fatty foods. General instructions ? Take ihkq-jns-tluwohx and prescription medicines only as told by your health care provider. ? Rest at home while you recover. ? Drink enough fluid to keep your urine pale yellow. ? Breathe slowly and deeply when you feel nauseous. ? Avoid smelling things that have strong odors. ? Wash your hands often using soap and water. If soap and water are not available, use hand tub washer. ? Make sure that all people in [...] recommendations for eating and drinking and take xsrp-gll-dxqftao and prescription medicines only as told by [...] 09/18/2005 Document Revised: 01/19/2019 Document Reviewed: 01/19/2019 [employer] Patient Education ? 2020 [employer] Obstetrics and Gynecology First Trimester of [...] be form (more content not included)... Normal [facility] ED Patient Summaryon 023 ED Patient Summary [address] [address] Patient Discharge Instructions Person Information Name: ROQUE PIERSON Age: 22 Years Arrival Date: 08/28/2022 21:27:40 Discharge Diagnosis: 1:Abdominal pain; 2:Intrauterine ; 3:Nausea Primary Care Physician: Ambrose Urbano MD Provider Information Primary Provider: Alfredito Brennan M.D. Advanced Meters Superintendent:None The exam and treatment you received in the Emergency Department were for an urgent problem and are not intended as complete care. It is important that you follow up with a doctor, nurse practitioner, or physician?s nurseryman assistant for ongoing care. If your symptoms [...] Follow-up Instructions: With: Address: When: Julius CROCKETT [address] , [place] [address] Foodist (1) In 3 days 09/01/2022 Comments: Return to the emergency room if your pain gets worse, general bleeding, vomiting or any new symptoms With: Address: When: Amrbose Urbano [facility] [place] [address] Foodist (1) In 3 days In the event that this physician does not participate in your insurance network, please consult with your insurance company to find a nearby participating provider. Patient Education Materials: Nausea, Adult; First Trimester of ; Abdominal Pain During A MESSAGE TO ALL PATIENTS REGARDING OPIOIDS PRESCRIPTION OPIOIDS: WHAT YOU NEED TO KNOW Prescription opioids can be used to help relieve whafoftq-np-uogiog pain and are often prescribed following a [...] guidance from (more content not included)... Normal [facility] Hep Func Panelon 08-29-2022 Bilirubin.indirect [Mass or moles/Vol] UTC Abnormal 0.1-0.9 [facility] Comment on above: Result Comment: Resu lt verified by Discern Rule. Performed result UT (Unable to Calculate) was sent as an Alpha code due the inability to calculate a valid numeric value. Performed By: #### 2 723278, 8759583, 9927184, 4164009, 21908345, 7294136, 7950322 #### [facility] [address] [place] [address] Albumin [Mass/Vol] 4.2 g/dL Normal 3.3-5.0 [facility] Comment on above: Performed By: #### 2 667825, 2623439, 5133189, 1227298, 39660540, 2258106, 4244558 #### [facility] [address] [place] [address] Albumin/Globulin (S) [Mass conc ratio] 1.3 Normal 1.1-2.2 [facility] Comment on above: Performed By: #### 2 869640, 7757576, 4489567, 3421089, 69548051, 9898002, 4376052 #### [facility] [address] [place] [address] ALP [Catalytic activity/Vol] 69 Int._Unit/L Normal 21-98 [facility] Comment on above: Performed By: #### 2 007002, 3321133, 6955655, 2470096, 02141597, 4844494, 2794014 #### [facility] [address] [place] [address] ALT No additional P-5'-P [Catalytic activity/Vol] 57 Int._Unit/L High 6-46 [facility] Comment on above: Performed By: #### 2 348570, 5567169, 9125880, 0837103, 73775257, 4483792, 7694065 #### [facility] [address] [place] [address] AST [Catalytic activity/Vol] 41 Int._Unit/L Normal 5-43 [facility] Comment on above: Performed By: #### 2 873778, 5607364, 6077921, 2249885, 15729220, 2651278, 8054064 #### [facility] [address] [place] [address] Bilirubin [Mass/Vol] 0.4 mg/dL Normal 0.0-1.1 [facility] Comment on above: Performed By: #### 2 750211, 7295367, 5245654, 4860483, 98249498, 5226563, 8676377 #### [facility] [address] [place] [address] Bilirubin.direct [Mass/Vol] mg/dL Normal 0.1-0.4 [facility] Comment on above: Performed By: #### 2 180124, 5637961, 4950945, 1481259, 79878574, 3725223, 1878857 #### [facility] [address] [place] [address] Globulin (S) [Mass/Vol] 3.3 g/dL Normal 1.4-4.0 F [facility] Comment on above: Performed By: #### 2 196188, 7946696, 4217675, 9570582, 25384090, 8713237, 2218494 #### [facility] [address] [place] [address] Protein [Mass/Vol] 7.5 g/dL Normal 6.0-7.8 [facility] Comment on above: Performed By: #### 2 705860, 1407997, 4315012, 6821413, 37473499, 6262781, 6366744 #### [facility] [address] [place] [address] Lipase Levelon 08-29-2022 Lipase [Catalytic activity/Vol] 29 U/L Normal 13-58 [facility] Comment on above: Performed By: #### 2 189716, 3402144, 6778946, 9776387, 61415813, 4030835, 5505463 #### [facility] [address] [place] [address] Prescriptions/Work Noteson 0 08-29-2022 Prescriptions/Work Notes [id number] 9#1.00CD:127 Normal [facility] UA With Cult Reflexon 2022 Bacteria LM Ql (Urine sed) 1+ /HPF Abnormal Trace [facility] Comment on above: Performed By: #### 1 2496918 ####[facility] [address] [place] [address] Bilirubin Ql (U) Negative Normal Negative [facility] Comment on above: Performed By: #### 1 9525315 ####[facility] [address] [place] [address] Clarity (U) CLEAR Normal Clear [facility] Comment on above: Performed By: #### 1 8272683 ####[facility] [address] [place] [address] Color (U) YELLOW Normal Yellow [facility] Comment on above: Performed By: #### 1 5344172 ####[facility] [address] [place] [address] Epithelial cells.squamous LM.HPF (Urine sed) [#/Area] 3-4 Normal 0-2 [facility] Comment on above: Performed By: #### 1 0509980 ####[facility] [address] [place] [address] Glucose Test strip (U) [Mass/Vol] Negative Normal Negative [facility] Comment on above: Performed By: #### 1 5556022 ####[facility] [address] [place] [address] Hemoglobin Ql (U) Negative Normal Negative [facility] Comment on above: Performed By: #### 1 5752202 ####[facility] [address] [place] [address] Ketones (U) [Mass/Vol] 3+ Abnormal Negative [facility] Comment on above: Performed By: #### 1 3672259 ####[address] [place] [address] [place].plasma/[place].R BC (Bld) [Mass ratio] 0-3 Normal 0-3 [facility] Comment on above: Performed By: #### 1 5771050 ####[address] [address] Nitrite Ql (U) Negative Normal Negative [facility] Comment on above: Performed By: #### 1 1367237 ####[address] [address] pH (U) 7.0 [pH] Invalid Interpretation Code 5.0-9.0 [facility] Comment on above: Performed By: #### 1 6094288 ####[address] [address] Protein (U) [Mass/Vol] Negative Normal Negative [facility] Comment on above: Performed By: #### 1 7515092 ####[address] [address] Specific gravity (U) [Rel density] 1.015 Invalid Interpretation Code 1.005-1.030 [facility] Comment on above: Performed By: #### 1 1495712 ####[address] [address] Type of Urine collection method Clean Catch Normal [facility] Comment on above: Performed By: #### 1 9389160 ####[address] [address] Urobilinogen Qn (U) 0.2 {Andrea'U}/dL Normal 0.0-1.0 [facility] Comment on above: Performed By: #### 1 5845018 ####[address] [address] WBC Auto Ql (U) TRACE Abnormal Negative [facility] Comment on above: Performed By: #### 1 8968762 ####[facility] [address] [place] [address] WBC LM.HPF (Urine sed) [#/Area] 0-5 Normal 0-5 [facility] Comment on above: Performed By: #### 1 5493027 ####[facility] [address] [place] [address] URINALYSISOrdered By: Davidson Watson on 08-29-2022 Bacteria [...] Interpretation Code Negative [facility] UA Auto SS [place].plasma/[place].R BC (Bld) [Mass ratio] 0-3 /HPF Normal 0-3/HPF [facility] UA Au to SS Nitrite Ql (U) Negative (08/29/22 12:34 [...] Desc Clean Catch (08/29/22 12:34 AM) Normal [facility] UA Auto SS Urobilinogen Qn (U) 0.5320334 {Andrea'U}/dL Normal 0.0 - 1.0 EU/dL [facility] UA Auto SS WBC Auto Ql (U) Trace *ABN* (08/29/22 12:34 AM) Invalid Interpretation Code Negative [facility] UA Auto SS WBC LM.HPF (Urine sed) [#/Area] 0-5 /HPF Normal 0-5/HPF [facility] UA Auto SS US 1st Trimesteron 08-29-2022 [...] corresponding gestational age +/- 1 week are: Neeses Rump Length: 0.7 cm Composite Ultrasound Age: [...] Size = Dates Uterus Position Anteverted Normal [facility] eGFRon 08-29-2022 GFR/1.73 sq M.predicted among blacks MDRD (S/P/Bld) [Vol rate/Area] mL/min/{1.73_m2} Normal >=59 [facility] Comment on above: Order Comment: Order added by Discern Expert. Result Comment: eGFR is race adjusted. AA=. Performed By: #### 2 762274, 8116774, 6941068, 3951806, 18236005, 5099590, 0577534 #### [facility] [address] [place] [address] GFR/1.73 sq M.predicted among non-blacks MDRD (S/P/Bld) [Vol rate/Area] mL/min/{1.73_m2} Normal >=59 [facility] Comment on above: Order Comment: Order added by Discern Expert. Result Comment: Ramp Manager eiml kidney disease could be indicated at eGFR's of less than 60 mL/min/1.73m2. Kidney failure is indicated at less than 15 mL/min/1.73m2. Performed By: #### 2 398859, 6205020, 5155620, 4019429, 89497985, 0637439, 3259536 #### [facility] [address] [place] [address] BLOOD BANKOrdered By: Davidson Watson on 08-28-2022 ABO/Rh Interp Positive Invalid Interpretation Code [facility] BB Subsection CHEMISTRYOrdered By: SYSTEM SYSTEM on 08-28-2022 Albumin [Mass/Vol] 4.2 g/dL Normal 3.3 - 5.0 gm/dL [facility] Remisol Albumin/Globulin [Mass ratio] 1.3 {ratio} Normal 1.1 - 2.2 [facility] Remisol ALP [Catalytic activity/Vol] 69 [iU]/d Normal [...] MDRD (S/P/Bld) [Vol rate/Area] mL/min/1.73 m2 Normal >=59mL/min/1 .73 m2 [facility] Chem S GFR/1.73 sq M.predicted among non-blacks MDRD (S/P/Bld) [Vol rate/Area] mL/min/1.73 m2 Normal >=59mL/min/1 .73 m2 FT Chem S Globulin (S) [Mass/Vol] 3.3 g/dL Normal 1.4 - 4.0 gm/dL [facility] Remisol Glucose [Mass/Vol] 103 mg/dL Normal 55 - 199 mg/dL [facility] [place] [address] m[IU]/mL High 1 - 3 mIU/mL [facility] Remisol Lipase [Catalytic activity/Vol] 29 U/L Normal 13 - 58 unit/L [facility] Remisol Potassium [Moles/Vol] 3.7 mmol/L Normal 3.5 - 5.3 mmol/L [facility] Remisol Protein [Mass/Vol] 7.5 g/dL Normal 6.0 - 7.8 gm/dL [facility]isol Sodium [Moles/Vol] 135 mmol/L Normal 135 - 145 mmol/L [facility] Remisol Urea nitrogen [Mass/Vol] 6 mg/dL Normal 5 - 21 mg/d L [facility] Remisol Urea nitrogen/Creatinine [Mass ratio] 10 mg/mg Normal 10 - 20 [facility] Remisol Consent for Treatmenton Consent for Treatment [id number] #1.00CD:127 Normal [facility] HEMATOLOGYOrdered By: SYSTEM SYSTEM on 08-28-2022 Basophils/100 WBC (Bld) 0.6 % Normal 0.0 - 2.0 % [facility] HemeAutoSS Basophils/Leukocytes Auto (Bld) [Pure # fraction] 0.0 E9/L Normal 0.0 - 0.2 E9/L [facility] HemeAutoSS Eosinophils/100 WBC (Bld) 5.7 % Normal 0.0 - 8.0 % [facility] HemeAutoSS Eosinophils/Leukocytes Auto (Bld) [Pure # fraction] 0.5 E9/L Normal 0.0 - 0.5 E9/L [facility] HemeAutoSS Lymphocytes/100 WBC (Bld) 20.5 % Normal 14.0 - 50.0 % [facility] HemeAutoSS Lymphocytes/Leukocytes Auto (Bld) [Pure # fraction] 1.7 E9/L Normal 1.0 - 4.0 E9/L [facility] HemeAutoSS Monocytes/100 WBC (Bld) 8.4 % Normal 4.0 - 14.0 % [facility] HemeAutoSS Monocytes/Leukocytes Auto (Bld) [Pure # fraction] 0.7 E9/L Normal 0.2 - 1.0 E9/L [facility] HemeAutoSS Neutrophils/100 WBC (Bld) 64.8 % Normal 36.0 - 75.0 % [facility] HemeAutoSS Neutrophils/Leukocytes Auto (Bld) [Pure # fraction] 5.3 E9/L [...] MCH (RBC) [Entitic mass] 29.5 pg Normal 27. 0 - 34.0 pg FT HemeAutoSS MCHC (RBC) [Mass/Vol] 34.3 g/dL Normal 31.4 - 36.0 gm/dL [facility] HemeAutoSS MCV (RBC) [Entitic vol] 85.8 fL Normal 80.0 - 100.0 fL FT HemeAutoSS Platelet mean volume (Bld) [Entitic vol] 8.3 fL Normal 6.4 - 10.8 fL [facility] HemeAutoSS Platelets (Bld) [#/Vol] 279.0 E9/L Normal 150. 0 - 500.0 E9/L [facility] HemeAutoSS RBC (Bld) [#/Vol] 4.6 E12/L Normal 4.3 - 5.9 E12/L FT HemeAutoSS WBC corrected for nucl RBC Auto (Bld) [#/Vol] 8.1 E9/L Normal 4.0 - 11.0 E9/L [facility] HemeAutoSS Auto Diffon 08-26-2022 Basophils/100 WBC (Bld) 0.6 % Normal 0.0-2.0 F [facility] Comment on above: Order Comment: Order Added by Discern Expert. Performed By: #### 1 1271998, 8232499, 2210990, 6519494, 3273817 ####[facility] [address] [place] [address] Basophils/Leukocytes Auto (Bld) [Pure # fraction] 0.1 E9/L Normal 0.0-0.2 [facility] Comment on above: Order Comment: Order Added by Discern Expert. Performed By: #### 1 6792434, 0073498, 8114524, 6357977, 6969820 ####[facility] [address] [place] [address] Eosinophils/100 WBC (Bld) 3.4 % Normal 0.0-8.0 [facility] Comment on above: Order Comment: Order Added by Discern Expert. Performed By: #### 1 8704997, 9837493, 8646158, 2988986, 9592206 ####[address] [place] [address] Eosinophils/Leukocytes Auto (Bld) [Pure # fraction] 0.4 E9/L Normal 0.0-0.5 [facility] Comment on above: Order Comment: Order Added by Discern Expert. Performed By: #### 1 5122600, 4922838, 1046401, 4621490, 2428319 ####[address] [address] Lymphocytes/100 WBC (Bld) 12.4 % Low 14.0-50.0 [facility] Comment on above: Order Comment: Order Added by Discern Expert. Performed By: #### 1 0938125, 2364823, 2418682, 8930591, 6659316 ####[address] [address] Lymphocytes/Leukocytes Auto (Bld) [Pure # fraction] 1.6 E9/L Normal 1.0-4.0 [facility] Comment on above: Order Comment: Order Added by Discern Expert. Performed By: #### 1 5151838, 2181752, 6443678, 4984484, 6374793 ####[address] [address] Monocytes/100 WBC (Bld) 4.2 % Normal 4.0-14.0 [facility] Comment on above: Order Comment: Order Added by Discern Expert. Performed By: #### 1 9094137, 4568189, 4427301, 2556157, 2551964 ####[address] [place] [address] Monocytes/Leukocytes Auto (Bld) [Pure # fraction] 0.5 E9/L Normal 0.2-1.0 [facility] Comment on above: Order Comment: Order Added by Discern Expert. Performed By: #### 1 9939639, 2165832, 4513420, 2712515, 5386500 ####[address] [place] [address] Neutrophils/100 WBC (Bld) 79.4 % High 36.0-75.0 [facility] Comment on above: Order Comment: Order Added by Discern Expert. Performed By: #### 1 6667590, 3737986, 8750427, 8815333, 8674813 ####[address] [place] [address] Neutrophils/Leukocytes Auto (Bld) [Pure # fraction] 10.3 E9/L High 2.0-7.5 [facility] Comment on above: Order Comment: Order Added by Discern Expert. Performed By: #### 1 5948427, 9742439, 4331364, 6597033, 4134177 ####[place] [address] CBC w/ Auto Diffon 3 Erythrocyte distribution width (RBC) [Ratio] 13.3 % Normal 10.9-14.2 [facility] Comment on above: Performed By: #### 1 3472985, 8095474, 7252285, 7728234, 1147037 ####[address] [address] Hematocrit (Bld) [Volume fraction] 39.7 % Normal 34.0-46.0 [facility] Comment on above: Performed By: #### 1 6296318, 6218357, 9192225, 9514617, 6659246 ####[address] [place] [address] Hemoglobin (Bld) [Mass/Vol] 13.6 g/dL Normal 12.0-16.0 [facility] Comment on above: Performed By: #### 1 1547052, 2711003, 4058978, 1828866, 7949975 ####[address] [address] MCH (RBC) [Entitic mass] 29.4 pg Normal 27.0-34.0 [facility] Comment on above: Performed By: #### 1 7239510, 2076572, 8050131, 2365847, 3182782 ####[facility] [address] [place] [address] MCHC (RBC) [Mass/Vol] 34.1 g/dL Normal 31.4-36.0 [facility] Comment on above: Performed By: #### 1 6927686, 5561764, 6918482, 3450341, 5551471 ####[address] [place] [address] MCV (RBC) [Entitic vol] 86.1 fL Normal 80.0-100.0 F [facility] Comment on above: Performed By: #### 1 1708886, 4505026, 5962789, 3490713, 9164655 ####[place] [address] Platelet mean volume (Bld) [Entitic vol] 7.9 fL Normal 6.4-10.8 [facility] Comment on above: Performed By: #### 1 5435463, 1111801, 1169530, 6731465, 9724494 ####[place] [address] Platelets (Bld) [#/Vol] 340.0 E9/L Normal 150.0-500.0 [facility] Comment on above: Performed By: #### 1 0729353, 7290083, 2738070, 9162325, 8330661 ####[address] [place] [address] RBC (Bld) [#/Vol] 4.6 E12/L Normal 4.3-5.9 [facility] Comment on above: Performed By: #### 1 4766394, 1814400, 3263661, 3944973, 7756544 ####[place] [address] WBC corrected for nucl RBC Auto (Bld) [#/Vol] 13.0 E9/L High 4.0-11.0 [facility] Comment on above: Performed By: #### 1 2342121, 8985629, 8165918, 5137595, 9289932 ####[facility] [address] [place] [address] CHEMISTRYOrdered By: SYSTEM SYSTEM on 08-26-2022 Albumin [...] MDRD (S/P/Bld) [Vol rate/Area] mL/min/1.73 m2 Normal >=59mL/min/1 .73 m2 [facility] Chem S GFR/1.73 sq M.predicted among non-blacks MDRD (S/P/Bld) [Vol rate/Area] mL/min/1.73 m2 Normal >=59mL/min/1 .73 m2 [facility] Chem S Globulin (S) [Mass/Vol] 3.4 g/dL Normal 1.4 - 4.0 gm/dL [facility] Remisol Glucose [Mass/Vol] 123 mg/dL Normal 55 - 199 mg/dL [facility] Remisol Lipase [Catalytic activity/Vol] 27 U/L Normal 13 - 58 unit/L [facility] Remisol Potassium [Moles/Vol] 3.7 mmol/L Normal 3.5 - 5.3 mmol/L [facility] Remisol Protein [Mass/Vol] 7.8 g/dL Normal 6.0 - 7.8 gm/dL [facility] Remisol Sodium [Moles/Vol] 133 mmol/L Low 135 - 145 mmol/L [facility] Remisol Urea nitrogen [Mass/Vol] 9 mg/dL Normal 5 - 21 mg/d L [facility] Remisol Urea nitrogen/Creatinine [Mass ratio] 15 mg/mg Normal 10 - 20 [facility] Remisol CMPon 08-26-2022 Albumin [Mass/Vol] 4.4 g/dL Normal 3.3-5.0 [facility] Comment on above: Performed By: #### 1 3995208, 9847460, 9026650, 8000269, 9548013 ####[facility] [address] [place] [address] Albumin/Globulin (S) [Mass conc ratio] 1.3 Normal 1.1-2.2 [facility] Comment on above: Performed By: #### 1 8572412, 1422990, 9485381, 1026334, 3648379 ####[facility] [address] [place] [address] ALP [Catalytic activity/Vol] 66 Int._Unit/L Normal 21-98 [facility] Comment on above: Performed By: #### 1 8680068, 5252164, 8011656, 9981313, 5668840 ####[facility] [address] [place] [address] ALT No additional P-5'-P [Catalytic activity/Vol] 20 Int._Unit/L Normal 6-46 [facility] Comment on above: Performed By: #### 1 8752372, 4757734, 5256125, 6807725, 8593244 ####[facility] [address] [place] [address] AST [Catalytic activity/Vol] 20 Int._Unit/L Normal 5-43 [facility] Comment on above: Performed By: #### 1 1383279, 1506687, 1691098, 7483558, 2824901 ####[facility] [address] [place] [address] Bilirubin [Mass/Vol] 0.6 mg/dL Normal 0.0-1.1 [facility] Comment on above: Performed By: #### 1 6127972, 2340115, 8324328, 2450010, 2996694 ####[facility] [address] [place] [address] Creatinine [Mass/Vol] 0.6 mg/dL Normal 0.5-1.3 [facility] Comment on above: Performed By: #### 1 7796161, 9862289, 7139334, 4432970, 8603916 ####[facility] [address] [place] [address] Globulin (S) [Mass/Vol] 3.4 g/dL Normal 1.4-4.0 F [facility] Comment on above: Performed By: #### 1 2736693, 8775035, 1093751, 1598639, 8570781 ####[facility] [address] [place] [address] Protein [Mass/Vol] 7.8 g/dL Normal 6.0-7.8 [facility] Comment on above: Performed By: #### 1 9405923, 6621547, 5962234, 5217954, 1769489 ####[facility] [address] [place] [address] Urea nitrogen [Mass/Vol] 9 mg/dL Normal 5-21 [facility] Comment on above: Performed By: #### 1 7345517, 4656370, 7062877, 1396666, 7950812 ####[facility] [address] [place] [address] Urea nitrogen/Creatinine [Mass ratio] 15 No Units Normal 10-20 [facility] Comment on above: Performed By: #### 1 9146350, 9255000, 6971023, 6493349, 6919865 ####[facility] [address] [place] [address] Anion gap [Moles/Vol] 13 mmol/L Normal 6-16 [facility] Comment on above: Performed By: #### 1 1451740, 7487224, 4682603, 0405761, 5262737 ####[facility] [address] [place] [address] Calcium [Mass/Vol] 9.4 mg/dL Normal 8.9-11.1 [facility] Comment on above: Performed By: #### 1 0367977, 1524828, 6683887, 9227992, 1573388 ####[facility] [address] [facility] [place] [address] Chloride [Moles/Vol] 103 mmol/L Normal 101-111 [facility] Comment on above: Performed By: #### 1 5212366, 0602832, 2766497, 8899307, 2032755 ####[facility] [address] [facility] [place] [address] CO2 [Moles/Vol] 21 mmol/L Normal 21-31 [facility] Comment on above: Performed By: #### 1 0732846, 8295070, 6133238, 5295447, 8544943 ####[facility] [address] [facility] [place] [place] [address] Glucose [Mass/Vol] 123 mg/dL Normal 55-199 [facility] Comment on above: Result Comment: If t his glucose result represents a fasting glucose, interpretation should refer to the following reference range: 55-99 mg/dL Performed By: #### 1 0928422, 7878821, 7470346, 7220891, 5118720 ####[facility] [address] [facility] [place] [address] Potassium [Moles/Vol] 3.7 mmol/L Normal 3.5-5.3 [facility] Comment on above: Performed By: #### 1 0677676, 4220544, 9081045, 7167653, 5799037 ####[facility] [address] [place] [address] Sodium [Moles/Vol] 133 mmol/L Low 135-145 [facility] Comment on above: Performed By: #### 1 3883745, 9112786, 5241778, 9395249, 1575152 ####[facility] [address] [place] [address] Consent for Treatmenton Consent for Treatment [id number] #1.00CD:127 Normal [facility] Discharge Instructionson Discharge Instructions [id number] 5#1.00CD:127 Normal [facility] ED Clinical Summaryon 2022 ED Clinical Summary [address] [address] ED Clinical Summary Person Information Name: ROQUE PIERSON/[facility] Age: 22 Years : 2000 Sex: Female Language: Bahraini PCP: Ambrose Urbano MD Marital Status: Single [...] 08/26/2022 12:55:17 08/26/2022 12:55:17 08/26/2022 12:55:17 ADDRESS: [address] [place] [id number] PHYS DOC NOTES: MEDICAL INFORMATION: Prescriptions Given: [...] Instructions: Follow up: With: Address: [facility] [address] [place] [address] [place] [address] Business (1) In 3 days 08/29/2022 With: Address: When: Ambrose Urbano [address] [place] [address] Business (1) In 3 days DIAGNOSIS: Hyperemesis gravidarum Normal [facility] ED Note-Physicianon 01-02-20 23 ED Note-Physician Basic Information Time Seen: Kei Moore DO 08/26/2022 11:01 Chief Complaint pt reports nausea for 2-3 weeks, Seen in [place] ED for this and given fluids/meds in ED. Mild abd pain. Pt reports 6 wks . History of Present Illness 22 female presents emergency department with intractable nausea and vomiting. Patient states that she is about 6 weeks she is G1, P0 and has had prior ultrasound done in [place]. Patient states that just recently she was seen in the [place] emergency department was given fluids and medications [...] and Complexity of Problems Differential Diagnosis: [] [facility] Data External documents reviewed: [] My [...] discharged home educated to follow-up with her [employer] physician. She is discharged with prescription for [...] Julius CROCKETT In 3 days 08/29/[address] [place] [address]- Business (1) Additional Instructions: Ambrose Urbano In 3 days [address] [place] [address]- Business (1) Additional Instructions: Problem List/Past Medical [...] Household t (more content not included)... Normal [facility] Comment on above: Result Comment: Elec tronically Signed By: Kei Moore DO\.br\Date and Time Signed: 08/26/22 12:48 EST ED Patient Education Noteon 08-26-2022 ED Patient Education Note Normal [facility] ED Patient Summaryon 023 ED Patient Summary [address] [address] Patient Discharge Instructions Person Information Name: ROQUE PIERSON Age: 22 Years Arrival Date: 08/26/2022 10:59:05 Discharge Diagnosis: Hyperemesis gravidarum Primary Care Physician: Ambrose Urbano MD Provider Information Primary Provider: Kei Moore DO Advanced Meters Superintendent:None The exam and treatment you received in the Emergency Department were for an urgent problem and are not intended as complete care. It is important that you follow up with a doctor, nurse practitioner, or physician?s nurseryman assistant for ongoing care. If your symptoms become worse or you do not improve as expected and you are unable to reach your usual health care provider, you should return to the Emergency Department. We are available 24 hours a day. DANGELO ROQUE Kellogg has been given the following list of patient education materials, prescriptions and follow-up instructions: Follow-up Instructions: With: Address: When: Julius [facility]OCKETT [facility], [address] , [place] [address] Business (1) In 3 days 08/29/2022 With: Address: When: Ambrose Urbano [address] [place] [address], [facility] [place] [address] Business (1) In 3 days In the event that this physician does not participate in your insurance network, please consult with your insurance company to find a nearby participating provider. Patient Education Materials: A MESSAGE TO ALL PATIENTS REGARDING OPIOIDS PRESCRIPTION OPIOIDS: WHAT YOU NEED TO KNOW Prescription opioids can be used to help relieve xbnlnvmr-te-vqvmod pain and are often prescribed following a [...] your he (more content not included)... Normal [facility] HEMATOLOGYOrdered By: SYSTEM SYSTEM on 08-26-2022 Basophils/100 WBC (Bld) 0.6 % Normal 0.0 - 2.0 % [facility] HemeAutoSS Basophils/Leukocytes Auto (Bld) [Pure # fraction] 0.1 E9/L Normal 0.0 - 0.2 E9/L [facility] HemeAutoSS Eosinophils/100 WBC (Bld) 3.4 % Normal 0.0 - 8.0 % [facility] HemeAutoSS Eosinophils/Leukocytes Auto (Bld) [Pure # fraction] 0.4 E9/L Normal 0.0 - 0.5 E9/L [facility] HemeAutoSS Lymphocytes/100 WBC (Bld) 12.4 % Low 14.0 - 50.0 % [facility] HemeAutoSS Lymphocytes/Leukocytes Auto (Bld) [Pure # fraction] 1.6 E9/L Normal 1.0 - 4.0 E9/L [facility] HemeAutoSS Monocytes/100 WBC (Bld) 4.2 % Normal 4.0 - 14.0 % [facility] HemeAutoSS Monocytes/Leukocytes Auto (Bld) [Pure # fraction] 0.5 E9/L Normal 0.2 - 1.0 E9/L [facility] HemeAutoSS Neutrophils/100 WBC (Bld) 79.4 % High 36.0 - 75.0 % [facility] HemeAutoSS Neutrophils/Leukocytes Auto (Bld) [Pure # fraction] 10.3 E9/L [...] MCH (RBC) [Entitic mass] 29.4 pg Normal 27. 0 - 34.0 pg [facility] HemeAutoSS MCHC (RBC) [Mass/Vol] 34.1 g/dL Normal 31.4 - 36.0 gm/dL [facility] HemeAutoSS MCV (RBC) [Entitic vol] 86.1 fL Normal 80.0 - 100.0 fL [facility] HemeAutoSS Platelet mean volume (Bld) [Entitic vol] 7.9 fL Normal 6.4 - 10.8 fL [facility] HemeAutoSS Platelets (Bld) [#/Vol] 340.0 E9/L Normal 150. 0 - 500.0 E9/L [facility] HemeAutoSS RBC (Bld) [#/Vol] 4.6 E12/L Normal 4.3 - 5.9 E12/L [facility] HemeAutoSS WBC corrected for nucl RBC Auto (Bld) [#/Vol] 13.0 E9/L High 4.0 - 11.0 E9/L [facility] HemeAutoSS Lipase Levelon 08-26-2022 Lipase [Catalytic activity/Vol] 27 U/L Normal 13-58 [facility] Comment on above: Performed By: #### 1 [id number] ####[facility] [address] [place] [address] UA With Cult Reflexon 2022 Bacteria LM Ql (Urine sed) TRACE Normal Trace [facility] Comment on above: Performed By: #### 1 [id number] #### [facility] [address] [place] [address] Bilirubin Ql (U) Negative Normal Negative [facility] Comment on above: Performed By: #### 1 [id number] #### [facility] [address] [place] [address] Clarity (U) CLEAR Normal Clear [facility] Comment on above: Performed By: #### 1 [id number] #### [facility] [address] [place] [address] Color (U) YELLOW Normal Yellow [facility] Comment on above: Performed By: #### 1 [id number] #### [facility] [address] [place] [address] Epithelial cells.squamous LM.HPF (Urine sed) [#/Area] 5-8 Normal 0-2 [facility] Comment on above: Performed By: #### 1 [id number] #### [facility] [address] [place] [address] Glucose Test strip (U) [Mass/Vol] Negative Normal Negative [facility] Comment on above: Performed By: #### 1 [id number] #### [facility] [address] [place] [address] Hemoglobin Ql (U) Negative Normal Negative [facility] Comment on above: Performed By: #### 1 [id number] #### [facility] [address] [place] [address] Ketones (U) [Mass/Vol] 2+ Abnormal Negative [facility] Comment on above: Performed By: #### 1 [id number] #### [facility] [address] [place] [address] [place].plasma/[place].R BC (Bld) [Mass ratio] 0-3 Normal 0-3 [facility] Comment on above: Performed By: #### 1 [id number] #### [facility] [address] [place] [address] Mucus Ql (Urine sed) 2+ Normal Fish er [facility] Comment on above: Performed By: #### 1 [id number] #### [facility] [address] [place] [address] Nitrite Ql (U) Negative Normal Negative [facility] Comment on above: Performed By: #### 1 [id number] #### [facility] [address] [place] [address] pH (U) 8.5 [pH] Invalid Interpretation Code 5.0-9.0 [facility] Comment on above: Performed By: #### 1 [id number] #### [facility] [address] [place] [address] Protein (U) [Mass/Vol] TRACE Abnormal Negative [facility] Comment on above: Performed By: #### 1 [id number] #### [facility] [address] [place] [address] Specific gravity (U) [Rel density] 1.015 Invalid Interpretation Code 1.005-1.030 [facility] Comment on above: Performed By: #### 1 [id number] #### [facility] [address] [place] [address] Type of Urine collection method Clean Catch Normal [facility] Comment on above: Performed By: #### 1 [id number] #### [facility] [address] [place] [address] Urobilinogen Qn (U) 0.2 {Andrea'U}/dL Normal 0.0-1.0 [facility] Comment on above: Performed By: #### 1 [id number] #### [facility] [address] [place] [address] WBC Auto Ql (U) Negative Normal Negative [facility] Comment on above: Performed By: #### 1 [id number] #### [facility] [address] [place] [address] WBC LM.HPF (Urine sed) [#/Area] 0-5 Normal 0-5 [facility] Comment on above: Performed By: #### 1 [id number] #### [facility] [address] [place] [address] URINALYSISOrdered By: Renato Norman on 08-26-2022 Bacteria [...] Interpretation Code Negative [facility] UA Auto SS [place].plasma/[place].R BC (Bld) [Mass ratio] 0-3 /HPF Normal 0-3/HPF [facility] UA Au to SS Mucus Ql (Urine sed) 2+ (08/26/22 12:01 PM) Normal [facility] UA Auto SS Nitrite Ql (U) Negative (08/26/22 12:01 PM) Normal Negative [facility] UA Auto SS pH (U) 8.5 *NA* (08/26/22 12:01 PM) Invalid Interpretation Code 5.0 - 9.0 [facility] UA Auto SS Protein (U) [Mass/Vol] Trace *ABN* (08/26/22 12:01 PM) Invalid Interpretation Code Negative [facility] UA Auto SS Specific gravity (U) [Rel density] 1.015 *NA* (08/26/22 12:01 PM) Invalid Interpretation Code 1.005 - 1.030 [facility] UA Auto SS UA Spec Desc Clean Catch (08/26/22 12:01 PM) Normal [facility] UA Auto SS Urobilinogen Qn (U) 0.9987542 {Andrea'U}/dL Normal 0.0 - 1.0 EU/dL [facility] UA Auto SS WBC Auto Ql (U) Negative (08/26/22 12:01 PM) Normal Negative [facility] UA Auto SS WBC LM.HPF (Urine sed) [#/Area] 0-5 /HPF Normal 0-5/HPF [facility] UA Auto SS eGFRon 08-26-2022 GFR/1.73 sq M.predicted among blacks MDRD (S/P/Bld) [Vol rate/Area] mL/min/{1.73_m2} Normal >=59 [facility] Comment on above: Order Comment: Order added by Discern Expert. Result Comment: eGFR is race adjusted. AA=. Performed By: #### 1 [id number], [id number] ####[facility] [address] [place] [address] GFR/1.73 sq M.predicted among non-blacks MDRD (S/P/Bld) [Vol rate/Area] mL/min/{1.73_m2} Normal >=59 [facility] Comment on above: Order Comment: Order added by Discern Expert. Result Comment: Ramp Manager emil kidney disease could be indicated at eGFR's of less than 60 mL/min/1.73m2. Kidney failure is indicated at less than 15 mL/min/1.73m2. Performed By: #### 1 [id number] ####[facility] [address] [place] [address] CBC with Auto Differentialon 08-24-2022 Absolute Eos # 0.60 High [facility] Absolute Lymph # 2.30 [facility] Absolute Hubbard # 1.00 [facility] Basophils (Bld) [#/Vol] 0.10 10*3/uL [facility] Basophils/100 WBC (Bld) 0 % 0 - 2 % [facility] Differential Type YES [facility] Eosinophils/100 WBC (Bld) 4 % 0 - 5 % [facility] Hematocrit (Bld) [Volume fraction] 38.3 % 36 - 46 % [facility] Hemoglobin (Bld) [Mass/Vol] 12.7 g/dL 12.0 - 16.0 g/dL [facility] Interpretation and review of laboratory results Abnormal [facility] Lymphocytes/100 WBC (Bld) 16 % 15 - 40 % [facility] MCH (RBC) [Entitic mass] 29.3 pg 26 - 34 pg [facility] MCHC (RBC) [Mass/Vol] 33.1 g/dL 31 - 37 g/dL [facility] MCV (RBC) [Entitic vol] 88.6 fL 80 - 100 fL [facility] Monocytes/100 WBC (Bld) 7 % 4 - 8 % [facility] Platelet distribution width (Bld) [Ratio] 13.1 % 12.1 - 15.2 % [facility] Platelets (Bld) [#/Vol] 324 10*3/uL [facility] RBC (Bld) [#/Vol] 4.32 10*6/uL 4.0 - 5.2 m/uL [facility] Segmented neutrophils/100 WBC (Bld) 73 % 47 - 75 % [facility] Segs Absolute 10.20 High [facility] WBC (Bld) [#/Vol] 14.1 10*3/uL High [facility] Comprehensive Metabolic Pane aramis 08-24-2022 Albumin [Mass/Vol] 4.4 g/dL 3.5 - 5.2 g/dL [facility] ALP (Bld) [Catalytic activity/Vol] 75 U/L 35 - 104 U/L [facility] ALT [Catalytic activity/Vol] 14 U/L 5 - 33 U/L [facility] Anion gap [Moles/Vol] 12 mmol/L 9 - 17 mmol/L [facility] AST [Catalytic activity/Vol] 14 U/L NINF - 32 U/L [facility] Bilirubin [Mass/Vol] 0.3 mg/dL 0.3 - 1 .2 mg/dL [facility] Calcium [Mass/Vol] 9.0 mg/dL 8.6 - 10. 4 mg/dL [facility] Chloride [Moles/Vol] 102 mmol/L 98 - 10 7 mmol/L [facility] CO2 [Moles/Vol] 22 mmol/L 20 - 31 mmol/L [facility] Creatinine [Mass/Vol] 0.52 mg/dL 0.50 - 0.90 mg/dL [facility] GFR/1.73 sq M.predicted MDRD (S/P/Bld) [Vol rate/Area] - PINF [facility] Comment on above: Effective May 27, 2022 [...] 124 mg/dL High 70 - 99 mg/dL [facility] Interpretation and review of laboratory results Abnormal [facility] Potassium [Moles/Vol] 3.2 mmol/L Low 3.7 - 5.3 mmol/L [facility] Protein [Mass/Vol] 6.7 g/dL 6.4 - 8.3 g/dL [facility] Sodium [Moles/Vol] 136 mmol/L 135 - 144 mmol/L [facility] Urea nitrogen (BldV) [Mass/Vol] 10 mg/dL 6 - 20 mg/dL [facility] Urea nitrogen/Creatinine (Bld) [Mass ratio] 19 9 - 20 [facility] HCG Qualitative, Serumon hCG Qual Positive Abnormal NEGATIVE [facility] Comment on above: If HCG results do not concur with clinical observations, additional testing to confirm result is recommended. This test is not labeled for use as a tumor marker. [facility] has confirmed the use of plasma for this test. This has not been cleared or approved by the U.S. Food and Drug Administration. The FDA has determined that such clearance is not necessary. Interpretation and review of laboratory results Abnormal [facility] Urinalysison 08-24-2022 Bilirubin Urine Negative NEGATIVE [facility] Color, UA Yellow Yellow [facility] Glucose, Ur Negative NEGATIVE [facility] Interpretation and review of laboratory results Abnormal [facility] Ketones Ql (U) MODERATE Abnormal NEGATIVE [facility] Leukocyte esterase Test strip Ql (U) Negative NEGATIVE [facility] Nitrite, Urine Negative NEGATIVE [facility] pH, UA 6.0 5.0 - 8.0 [facility] Protein, UA TRACE Abnormal NEGATIVE [facility] Specific [place], UA 1.025 1.005 - 1.030 [facility] Turbidity UA Clear Clear [facility] Urinalysis Comments [facility] Urine Hgb Negative NEGATIVE [facility] Urobilinogen, Urine Normal Normal [facility] CBC with Auto Differentialon 08-10-2022 Absolute Eos # 0.30 [facility] Absolute Lymph # 2.80 [facility] Absolute Hubbard # 0.80 [facility] Basophils (Bld) [#/Vol] 0.00 10*3/uL [facility] Basophils/100 WBC (Bld) 0 % 0 - 2 % [facility] Differential Type YES [facility] Eosinophils/100 WBC (Bld) 3 % 0 - 5 % [facility] Hematocrit (Bld) [Volume fraction] 37.7 % 36 - 46 % [facility] Hemoglobin (Bld) [Mass/Vol] 12.7 g/dL 12.0 - 16.0 g/dL [facility] Lymphocytes/100 WBC (Bld) 26 % 15 - 40 % [facility] MCH (RBC) [Entitic mass] 29.5 pg 26 - 34 pg [facility] MCHC (RBC) [Mass/Vol] 33.7 g/dL 31 - 37 g/dL [facility] MCV (RBC) [Entitic vol] 87.5 fL 80 - 100 fL [facility] Monocytes/100 WBC (Bld) 8 % 4 - 8 % [facility] Platelet distribution width (Bld) [Ratio] 13.1 % 12.1 - 15.2 % [facility] Platelets (Bld) [#/Vol] 269 10*3/uL [facility] RBC (Bld) [#/Vol] 4.31 10*6/uL 4.0 - 5.2 m/uL [facility] Segmented neutrophils/100 WBC (Bld) 63 % 47 - 75 % [facility] Segs Absolute 7.00 [facility] WBC (Bld) [#/Vol] 10.9 10*3/uL [facility] CMPon 08-10-2022 Albumin [Mass/Vol] 4.2 g/dL 3.5 - 5.2 g/dL [facility] ALP (Bld) [Catalytic activity/Vol] 75 U/L 35 - 104 U/L [facility] ALT [Catalytic activity/Vol] 18 U/L 5 - 33 U/L [facility] Anion gap [Moles/Vol] 7 mmol/L Low 9 - 17 mmol/L [facility] AST [Catalytic activity/Vol] 16 U/L NINF - 32 U/L [facility] Bilirubin [Mass/Vol] 0.2 mg/dL Low 0.3 - 1 .2 mg/dL [facility] Calcium [Mass/Vol] 9.1 mg/dL 8.6 - 10. 4 mg/dL [facility] Chloride [Moles/Vol] 108 mmol/L High 98 - 10 7 mmol/L [facility] CO2 [Moles/Vol] 25 mmol/L 20 - 31 mmol/L [facility] Creatinine [Mass/Vol] 0.58 mg/dL 0.50 - 0.90 mg/dL [facility] GFR/1.73 sq M.predicted MDRD (S/P/Bld) [Vol rate/Area] - PINF [facility] Comment on above: Effective May 27, 2022 [...] [Mass/Vol] 95 mg/dL 70 - 99 mg/dL [facility] Interpretation and review of laboratory results Abnormal [facility] Potassium [Moles/Vol] 4.2 mmol/L 3.7 - 5.3 mmol/L [facility] Protein [Mass/Vol] 6.8 g/dL 6.4 - 8.3 g/dL [facility] Sodium [Moles/Vol] 140 mmol/L 135 - 144 mmol/L [facility] Urea nitrogen (BldV) [Mass/Vol] 7 mg/dL 6 - 20 mg/dL [facility] Urea nitrogen/Creatinine (Bld) [Mass ratio] 12 9 - 20 [facility] Lipaseon 08-10-2022 Lipase [Catalytic activity/Vol] 26 U/L 13 - 60 U/L [facility] No Panel Informationon 08-10 [facility] Urinalysison 08-10-2022 Bilirubin Urine Negative NEGATIVE [facility] Color, UA Yellow Yellow [facility] Glucose, Ur Negative NEGATIVE [facility] Interpretation and review of laboratory results Abnormal [facility] Ketones Ql (U) Negative NEGATIVE [facility] Leukocyte esterase Test strip Ql (U) Negative NEGATIVE [facility] Nitrite, Urine Negative NEGATIVE [facility] pH, UA 7.0 5.0 - 8.0 [facility] Protein, UA TRACE Abnormal NEGATIVE [facility] Specific [place], UA 1.010 1.005 - 1.030 [facility] Turbidity UA Clear Clear [facility] Urinalysis Comments [facility] Urine Hgb Negative NEGATIVE [facility] Urobilinogen, Urine Normal Normal [facility] hCG, quantitative, on 08-10-2022 hCG Quant 587 High NINF [facility] Comment on above: Non-preg premeno <=5 Postmeno <=8 Male <=3 If HCG results do not concur with clinical observations, additional testing to confirm results is recommended. Interpretation and review of laboratory results Abnormal [facility] Coding Summary.on 07-15-2022 Coding Summary. [id number] Gh0bWw+PGhlYWQ+PE1FV MOzM54swAJkuK8RK9vIA S7YJGXHNKMJWQ4GMP2ca SU7EVkbW4UktkTl XkqjcWFzYW62BMg7TIN7 uEwzAHrlvY7oqVHlV6y2 AdPpIW04fW13AEgmSRYl CzG7WoIelofljFPy Z1eqOvIetNOySac+PHRh YmxlIHdpZHRoPScxMDAl FgIyuNukAU5mPj0dGGBn LWNvbGxhcHNlOiBj v1odCMMiDKbhDF6dpYgq M6YvbZN5CAWje0p7Jz30 dHI+IHEuRAD6iEhqJNnc n800AaQhy2dlMQZ4 wYAqBGnvAUS0R30cq2T6 OKTzUHPuYSC4sDB7zV8v oSnwbtgeH4JpyLDxDbI8 DZD9lZBvmL8pwSig ofwlkL1eQkv+A16RLT3V FIXIKT3ODlt8X4CrNzcq dHI+OI31YTIjBQ65hFZu qWDpp7efcTn3ScCg TLOiQMZ9yQedCMvbz3Ob OXArY33naDRxl1P1SWCl yIrhsYAcCaNmjNS5tA0g TJbiodumq1yvzgbp Wqsac2wbpc75fO46R44b TTwnKEFkUUT4UZRuSQHu mAaunr8psY6bTn3+IDxj b0uko0rxhEp4BqXr KOXnmpFphHldUFD7a7Mm Am37T6AlpVnof5UkNuw6 jq07fYZna5E3jBC4BTtl WHEtwP2oJOxwOgW2 UTRnTbUbqW25eYUpBFgm Xo2dwJizqStyWR6vCXXj vzbyGOCdrW9wNJRsuLLg oEsdIG4zTSSukwbo p494VdKtLCC5VTXjpXCr S4KmkT3xDgBrZGUlINXf T7QhuYRfGCghR270EIrk CmE3YHMyjmOyX2Qw TCBmnEjzJkE5g3E1Zq8Y y3AmjlykVGF2MEziSPTd BsJpSxEyQtQ7U5AcVmp2 VEZeaPavSL4dR2He OOMgqzhhqesmmEO4INHg ITYnoU36aSHzDHamPs7l q9S4q913DKItJANohG99 Uk3kjDfeELIgbXMK zK9nivido8aansfwZfTl CXSzRSh1GEm6MJAfwWgy TuUzCCF2OnZ5CGM6jWGv fH4ltQcdkdtawO3i Oyc+G30ydT5lWYC3CFZ6 tddmPGUqidCsKN68YH27 X7BoBzxyeNJcnBX+PGRp pqGimMatUV2lDtBg e4gro2IvHBwvA2WoUVNy SLngFti4JWQnDZV1wLE9 uM5iUXOrDTeez5B8wDF2 J2GbyxKzom7ol3fi WBNfXOkgL07wvCPss0M7 EUAfvWG3QNXndRfcZoMs aF13Sib+CCIerKinj0Ux Fhlat6tsx1pzbRe9 IjMwJSIgdmFsaWduPSJ0 w0NdOq26I59mZSnyKLCk ZDXzPNVxCOXarKnfjo0f vI5rKc8+PGNvbCB3 gHJ0bX0jGPXgHpS2KAwc O802CvNpcDHvJyxlb6tt v8adjCu0KbArELDwnsOc yPpfPAZ1f9YzLq84 S91nZOddCCCfLZFmRUSs LINbaPdefm0luL6eSr9+ UV3xv1sjlz55fN13gEB+ LHGrCFL3jTglRWry CVWnhJ8jFGwcElS6NGEx ElHzdC86bQEgMUlyXu7v eZkqpZmwON8wOEAqebin r608FwGxq3irHBZt vCCpBDejBBR0K02ya5U3 FYQlAWVgVRP3gER1oH5a bGlnbjogbGVmdDsgdmVy lVwdSVyeUUtoB136 IHRvcDsnPlBhdGllbnQg FrJhSCq9U9KpIet9IKDt mMpsMP3vjWDsQMiuBu4k oCbozYchXY6oXNCu jghcf756VmWrg9spNHSi dFOiIWakMJW1L56wz7D4 FQFjAELpXQZ0oXY9eJ4z bGlnbjogbGVmdDsg bmMrrKucAMcwLPpwU551 IHRvcDsnPkJpcnRoIERh sBR0XD60SU19wNRzy7I1 lTZ9W8WbGYVrlmri ikkpfNP0YAWaPSZswX06 Mz2mlCvcSa6mRPMnXJA2 JBAhhBWzY3ThsK2vGsUy XDZgTEAwQ8HwwZNq ORexK873SLbwWuZ8JEWp jlMjY8YvXPVjvHvgNnO5 z8X2Pp3ZF2E8OY24KP02 uTFtb1U3uLT5C3Zt CNRmaxsqfwvqaYC3XMAg ZHIvcZ14Bi1olAgdHi3f ANRwHRP3VTHzsUElM7Fo vW3mCbIpTSVjKLZb K6GtdWVlJIqvI160FPwp CkH1UNVfblBhH5VzJUKz zMqjXwU8b6J2Ty9HHNe4 ER44SX88vEGgk2T7 pBN4I8QdGDZhxhhbkhlq dJE9SXSpKBKfqU79Yg8u uTniRz7zKUOtZZL0YSHb aZFuR0FklC0pDpPu BGHhWGWqG9VozXApPCwu T146QOcqImR1ZBLtejMv E4BdMLIqaXqfLaV7a7P1 Vd1GYLGsAL73XRM0 pXQ3IJ56HY76A7QeCpcr dGFibGU+PHRhYmxlIHdp ZHRoPScxMDAlJyBzdHls IR8tRy4mWFQpKRZy sTrjmFBxLbCkg7faFZYn LTvdGY3pbHsnD9ZpyJB4 BADai3q8Jj37M59vA6Qq dXA+NOLmzZE6vJY9 nI3jSfHnJmU0AOqyN839 IqQflOEfKgmev9oqq8nx gFx2BrJ5DFOfofAlaCcn PPS0b4YtEt87A14g IHdpZHRoPSIxNSUiIHZh gPbwjf0krR0qFn3+PGNv oSR7sSY0mM6tJlPdNkI8 LTpkE975HoEhnRMq Ocrwj4las3wtrZt3YkCs FDMqirZjfBmtXMN2z9Pu Mx51V0PofKnsl6OcHar2 mx55sJLda7J8tZV3 M2RkKODwieacpJOweJmw VN0bMPDaxehnOBPtzV2c HHIsN4t4OvLwDaZ8DAdr U4EfgtK4TJUbcGUk TIvdVTC6U34tx7Q6DFLd APYyHWV7kMQ5uU7qoMze bjogbGVmdDsgdmVydGlj ICztNJocW712BHKx pTkoLZNdtQ5tDBBzdEWt fJyjSN0gPIGmzfsgFx1T AXOWTZYYUYHXQBQJHC8A AV44Y5LxOle1QYNo rBfdPR7qzPQqLPtuWl3d jPvekXieZI7qVEAjroqf IXBuiX2lXSYgkWEkpGnn WC5eOQNqrqdxo882 GiTpNUU1THVfrPTuH8Jb lB1xSjGxTDHvOVDdQ0We qYOmCOgwD070NSibFsA9 UEPxvfFcE1QvAOMe sVndDdA0f2R6Zt3iWM4l VP7yHHOyPM86IT46rNZw v5B4cDU2N7BqMKVioqlx gofumUT6BYYwHDMa kR19qHGdTSanRn8lm8R9 m106LPJqHKEwkA10Jr4e nNqvEGFazHLQfL1gmcac z6azlsjlXtIuSBEl AEc1JMr5YXGuaNvaUiVp XVN4SeU3YYT8oKPfyX2h rIfqacjbtR2xAxc+MjEg JWJpwrQ9V0JqPnn6 YLOcdGnnOJ5esYJqYKqy Sz4qmEnitCoaYY8xCLOm vjyeNDUecM5kIQFhoFPv sZlnSZ0qYJXytlgb b425ExYzZAQ8XHArePFj P4TdvE4rBcHrJMNsUTNq S4IliPRcTZmmM027MJko VoW0FWExsvPgR2Hp ZCZcuLmoYbI0g9X1Tq4E AK3jkMM5F8UnQfl3BZOd rNyrIK6vxRTmBOosDf0q yWjjvYggZO4hHKVi opkvNNYouE3gGCDtkGBa dLyaXT8tSVOejieww560 IxCwGGH6DFZsyZPyJ7Ct sY0rUjBhUSQsOJAx A8DhmBAeNVybZ326KAob QfT5XERfkmTnT7NaBTVr iMxoEtY3k3K3Ry8PoHCx O3AfJ7o4Q4TsErvd dHI+AW23WXAqYO87bMLd hTDrk7idvMa6LtRxHBJr JKQ9oMcpJUyoq5PtHQNz L56xfPSyn3O9OQZe yBxwsYTnAfMeaZP8iD3x BMjzkgfci3vjkldgZyyt u2eazc77kJ26Q28oJHwl ZHRoPSIzMCUiIHZh nUgzyf5fuO2oOb5+PGNv gPA6iOE5qA8dLoAjZwP8 TKewL843OsDpbAQmXvlm c4gfd5ljuZm3PoIy ZEDykaUunJlrMKM9c1Ub Rs03S51lUHmhYWBdJCCt NHWeSPPmnTarrf9njV8y Ii8+CR4iv1iqbu84 dV40hNF+NJJcYGM0qLkj JRxnWRJtgM9vIYztOnF7 TRCuSzLmcU74kWQrNRvb Iw7rwUdbuEptED2s LMNnujgjw449PwMww3rh TIMpeSOvHIgmLFX6S53y e5F2JYRqPSWsEPR9pJL7 rG1snDqspvxtkNMs dDsgdmVydGljYWwtYWxp I559FMNvxYnbWxBgpWFu R3yxteKMSO8kCwwqoXC+ FDMlCQB5nGuiZHat OCLvvS8bWDEwC8y9PfGa VzL4DSvsB7KcujZ0TVYm yTOfCHCntQIJlR5jwxcz u1aijppnAtNbJHEw SIp6WOk3MLMqcZciAeOn WEH8XtS2SEZ8tWTrqM2c pFlongwitM9iQei+RklO OjwvdGQ+PHRkIHN0 lPlnJBeoBOVpwN2bVPOr Z4m7OdQlEkL7OPlkI4Re loR4RLTevLClPQWczHCT sM2vulfqc0ciwuth QoTjVSRsQIj6HYr4YMCg uPlmUcEgTLE7TjG7QGQ6 yUKtgN5eaEnnjleovX9c Oyc+TVJOOjwvdGQ+ VYAtOKS1vXdwKExhYPJz hT2qZAEmM7d6SvQgFrO0 UKxyV4QshcI2VMYxeNPt GUEpgYWJtR8qjfhz v7nntoprHdBhNZVfPKq7 HPe0QEMwrOcwApXwVHQ9 AgO4WFS6nKZaaF1lfLnr gsbsuC8iCww+UGF5 PVN0QY85RW25T1BdNuer dGFibGU+PHRhYmxlIHdp ZHRoPScxMDAlJyBzdHls KU1qMu4gPJLfXXJb bGxh (more content not included)... Normal [facility] 07-12-2022 Basophils/100 WBC (Bld) 0.6 % Normal 0.0-2.0 [facility] Comment on above: Order Comment: Order Added by Discern Expert. Performed By: #### 2 [id number], [id number], [id number], [id number], [id number], [id number] #### [facility] [address] [place] [address] Basophils/Leukocytes Auto (Bld) [Pure # fraction] 0.1 E9/L Normal 0.0-0.2 [facility] Comment on above: Order Comment: Order Added by Discern Expert. Performed By: #### 2 [id number], [id number], [id number], [id number], [id number], [id number], [id number] #### [facility] [address] [place] [address] Eosinophils/100 WBC (Bld) 5.6 % Normal 0.0-8.0 [facility] Comment on above: Order Comment: Order Added by Discern Expert. Performed By: #### 2 [id number], [id number], [id number], [id number], [id number], [id number], [id number] #### [facility] [address] [place] [address] Eosinophils/Leukocytes Auto (Bld) [Pure # fraction] 0.5 E9/L Normal 0.0-0.5 [facility] Comment on above: Order Comment: Order Added by Discern Expert. Performed By: #### 2 [id number], [id number], [id number], 0108065, [id number], [id number], [id number] #### [facility] [address] [place] [address] Lymphocytes/100 WBC (Bld) 34.7 % Normal 14.0-50.0 [facility] Comment on above: Order Comment: Order Added by Ally Expert. Performed By: #### 2 [id number], [id number], 7441822, 3002624, [id number], [id number], [id number] #### [facility] [address] [place] [address] Lymphocytes/Leukocytes Auto (Bld) [Pure # fraction] 3.1 E9/L Normal 1.0-4.0 [facility] Comment on above: Order Comment: Order Added by Ally Expert. Performed By: #### 2 [id number], [id number], [id number], 0048760, [id number], [id number], [id number] #### [facility] [address] [place] [address] Monocytes/100 WBC (Bld) 10.3 % Normal 4.0-14.0 [facility] Comment on above: Order Comment: Order Added by Ally Expert. Performed By: #### 2 391896, 4251656, 6962980, 7122808, 10870369, 9349464, 8486116 #### [facility] [address] [place] [address] Monocytes/Leukocytes Auto (Bld) [Pure # fraction] 0.9 E9/L Normal 0.2-1.0 [facility] Comment on above: Order Comment: Order Added by Discern Expert. Performed By: #### 2 669685, 4537614, 9082335, 4280223, 08778344, 6127273, 9349204 #### [facility] [address] [place] [address] Neutrophils/100 WBC (Bld) 48.8 % Normal 36.0-75.0 [facility] Comment on above: Order Comment: Order Added by Discern Expert. Performed By: #### 2 990264, 4036560, 3353763, 9308864, 02618763, 2178141, 3128191 #### [facility] [address] [place] [address] Neutrophils/Leukocytes Auto (Bld) [Pure # fraction] 4.4 E9/L Normal 2.0-7.5 [facility] Comment on above: Order Comment: Order Added by Discern Expert. Performed By: #### 2 497335, 3325939, 8891342, 3586069, 30603491, 3718704, 2797984 #### [facility] [address] [place] [address] B hCG Qualon 07-12-2022 Beta hCG Ql Negative Normal [facility] Comment on above: Performed By: #### 2 149781, 8621100, 2057234, 9927905, 99655490, 3159399, 4403616 #### [facility] [address] [place] [address] BMPon 07-12-2022 Creatinine [Mass/Vol] 0.7 mg/dL Normal 0.5-1.3 [facility] Comment on above: Performed By: #### 2 963655, 0824977, 4801987, 8661704, 88366117, 1895466, 4280573 #### [facility] [address] [place] [address] Urea nitrogen [Mass/Vol] 9 mg/dL Normal 5-21 [facility] Comment on above: Performed By: #### 2 424981, 1001740, 8022655, 5448969, 02507026, 1147687, 3613462 #### [facility] [address] [place] [address] Urea nitrogen/Creatinine [Mass ratio] 13 No Units Normal 10-20 [facility] Comment on above: Performed By: #### 2 710292, 1784916, 4134206, 7273622, 55925537, 9560550, 8095616 #### [facility] [address] [place] [address] Anion gap [Moles/Vol] 7 mmol/L Normal 6-16 [facility] Comment on above: Performed By: #### 2 569282, 3423668, 7814910, 8458666, 35314863, 7230047, 0742970 #### [facility] [address] [place] [address] Calcium [Mass/Vol] 8.8 mg/dL Low 8.9-11.1 [facility] Comment on above: Performed By: #### 2 121365, 6038090, 4192919, 3734986, 24636122, 3079267, 7028667 #### [facility] [address] [place] [address] Chloride [Moles/Vol] 106 mmol/L Normal 101-111 [facility] Comment on above: Performed By: #### 2 952839, 9187754, 8463488, 0503950, 76528360, 7852314, 6376100 #### [facility] [address] [place] [address] CO2 [Moles/Vol] 31 mmol/L Normal 21-31 [facility] Comment on above: Performed By: #### 2 865268, 1728383, 5167368, 6485333, 16274259, 1231385, 2606222 #### [facility] [address] [place] [address] Glucose [Mass/Vol] 108 mg/dL Normal 55-199 [facility] Comment on above: Result Comment: If t his glucose result represents a fasting glucose, interpretation should refer to the following reference range: 55-99 mg/dL Performed By: #### 2 804450, 5194870, 4353347, 1282527, 12141272, 0636831, 1056862 #### [facility] [address] [place] [address] Potassium [Moles/Vol] 3.3 mmol/L Low 3.5-5.3 [facility] Comment on above: Performed By: #### 2 354250, 9951774, 3645596, 9798147, 53456785, 6837590, 5789455 #### [facility] [address] [place] [address] Sodium [Moles/Vol] 141 mmol/L Normal 135-145 [facility] Comment on above: Performed By: #### 2 989791, 3152448, 6909310, 8510440, 54391892, 5229239, 1171771 #### [facility] [address] [place] [address] CBC w/ Auto Diffon Erythrocyte distribution width (RBC) [Ratio] 13.6 % Normal 10.9-14.2 [facility] Comment on above: Performed By: #### 2 366950, 0546129, 7072043, 8223865, 28754223, 9996422, 7575694 #### [facility] [address] [place] [address] Hematocrit (Bld) [Volume fraction] 35.6 % Normal 34.0-46.0 [facility] Comment on above: Performed By: #### 2 253750, 5996591, 8073692, 8615003, 91419802, 2008383, 1546496 #### [facility] [address] [place] [address] Hemoglobin (Bld) [Mass/Vol] 12.5 g/dL Normal 12.0-16.0 [facility] Comment on above: Performed By: #### 2 245194, 2817611, 1641050, 0743537, 26879877, 1740136, 6932129 #### [facility] [address] [place] [address] MCH (RBC) [Entitic mass] 28.7 pg Normal 27.0-34.0 [facility] Comment on above: Performed By: #### 2 623618, 8807757, 9350044, 0526322, 00298644, 1925796, 2419173 #### [facility] [address] [place], [place] [address] MCHC (RBC) [Mass/Vol] 35.1 g/dL Normal 31.4-36.0 [facility] Comment on above: Performed By: #### 2 991702, 9324514, 8718426, 4856841, 37303937, 6771997, 9172447 #### [facility] [address] [place] [address] MCV (RBC) [Entitic vol] 81.8 fL Normal 80.0-100.0 F [facility] Comment on above: Performed By: #### 2 808228, 4184832, 4205133, 2073263, 98677417, 8070438, 8251351 #### [facility] [address] [place], [place] [address] Platelet mean volume (Bld) [Entitic vol] 7.6 fL Normal 6.4-10.8 [facility] Comment on above: Performed By: #### 2 382863, 3917758, 6187666, 8798124, 00463826, 5238955, 1610882 #### [facility] [address] [place] [address] Platelets (Bld) [#/Vol] 262.0 E9/L Normal 150.0-500.0 [facility] Comment on above: Performed By: #### 2 772363, 3735324, 9416934, 7719438, 87439082, 1455220, 1083221 #### [facility] [address] [place], [place] [address] RBC (Bld) [#/Vol] 4.4 E12/L Normal 4.3-5.9 [facility] Comment on above: Performed By: #### 2 471801, 2031868, 4096614, 5276250, 22159414, 6653013, 9639666 #### [facility] [address] [place] [address] WBC corrected for nucl RBC Auto (Bld) [#/Vol] 8.9 E9/L Normal 4.0-11.0 [facility] Comment on above: Performed By: #### 2 108411, 7000044, 0042914, 7435028, 56233963, 0969599, 1436145 #### [facility] [address] [place] [address] CHEMISTRYOrdered By: SYSTEM SYSTEM on 07-12-2022 Albumin [...] 1 11 mmol/L [facility] CO2 [Moles/Vol] 31 mmol/L Normal 21 - 31 mmol/L [facility] Creatinine [Mass/Vol] 0.7 mg/dL Normal 0.5 - 1.3 mg/dL [facility] GFR/1.73 sq M.predicted among blacks MDRD (S/P/Bld) [Vol rate/Area] mL/min/1.73 m2 Normal >=59mL/min/1 .73 m2 FT Chem S GFR/1.73 sq M.predicted among non-blacks MDRD (S/P/Bld) [Vol rate/Area] mL/min/1.73 m2 Normal >=59mL/min/1 .73 m2 [facility] Chem S Globulin (S) [Mass/Vol] 3.1 g/dL [...] [Mass/Vol] 9 mg/dL Normal 5 - 21 mg/d L [facility] Remisol Urea nitrogen/Creatinine [Mass ratio] 13 mg/mg Normal 10 - 20 [facility] Remisol Consent for Treatmenton 06-25 Consent for Treatment [id number] 21 [id number] #1.00CD:127 Normal [facility] Discharge Instructionson Discharge Instructions [id number] 211 [id number] 2#1.00CD:127 Normal [facility] ED Clinical Summaryon 2021 ED Clinical Summary [place] [id number] ED Clinical Summary Person Information Name: ROQUE PIERSON/Radha Age: 22 Years : 2000 Sex: Female Language: Bahraini PCP: Ambrose Urbano MD Marital Status: Single [...] 07/12/2022 05:07:15 07/12/2022 05:07:15 07/12/2022 05:07:15 ADDRESS: [address] [place] [id number] PHYS DOC NOTES: MEDICAL INFORMATION: Prescriptions Given: [...] PATIENT EDUCATION INFORMATION: Instructions: Abdominal Pain, Adult, Ppye-oa-Brfq Follow up: With: Address: When: Ambrose Urbano [facility] [place] [id number] Business (1) In 3 days 07/15/2022 Comments: [...] worsening symptoms. DIAGNOSIS: Epigastric abdominal pain Normal [facility] ED Note-Physicianon 07-12-20 ED Note-Physician Basic Information Time Seen: Sissy Shah DO 07/12/2022 03:40 Chief Complaint Pt. 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 History of Present Illness Patient is a [...] PRN Fol (more content not included)... Normal [facility] Comment on above: Result Comment: Elec tronically [...] these instructions at home: Medicines ? Take ysug-wdi-dqyfohj and prescription medicines only as told by [...] belly pain for any changes. ? Take xydk-ura-yvwxsku and prescription medicines only as told by [...] 01/27/2009 Document Revised: 12/20/2019 Document Reviewed: 12/20/2019 [employer] Patient Education ? 2019 [employer] Normal [facility] ED Patient Summaryon 022 ED Patient Summary [place] [id number] Patient Discharge Instructions Person Information Name: ROQUE PIERSON Age: 22 Years Arrival Date: 07/12/2022 03:36:47 Discharge Diagnosis: Epigastric abdominal pain Primary Care Physician: Ambrose Urbano MD Provider Information Primary Provider: Sissy Shah DO [employer] Superintendent:None The exam and treatment you received in the Emergency Department were for an urgent problem and are not intended as complete care. It is important that you follow up with a doctor, nurse practitioner, or physician?s nurseryman assistant for ongoing care. If your symptoms [...] Follow-up Instructions: With: Address: When: Ambrose Urbano [address] [place] [phone] Business (1) In 3 days 07/15/2022 Comments: [...] provider. Patient Education Materials: Abdominal Pain, Adult, Fnbf-at-Cfpf A MESSAGE TO ALL PATIENTS REGARDING OPIOIDS PRESCRIPTION OPIOIDS: WHAT YOU NEED TO KNOW Prescription opioids can be used to help relieve ddhhonux-yy-epabzw pain and are often prescribed following a [...] toilet, fol (more content not included)... Normal [facility] HEMATOLOGYOrdered By: SYSTEM SYSTEM on 07-12-2022 Basophils/100 WBC (Bld) 0.6 % Normal 0.0 - 2.0 % [facility] HemeAutoSS Basophils/Leukocytes Auto (Bld) [Pure # fraction] 0.1 E9/L Normal 0.0 - 0.2 E9/L [facility] HemeAutoSS Eosinophils/100 WBC (Bld) 5.6 % Normal 0.0 - 8.0 % [facility] HemeAutoSS Eosinophils/Leukocytes Auto (Bld) [Pure # fraction] 0.5 E9/L Normal 0.0 - 0.5 E9/L [facility] HemeAutoSS Lymphocytes/100 WBC (Bld) 34.7 % Normal 14.0 - 50.0 % [facility] HemeAutoSS Lymphocytes/Leukocytes Auto (Bld) [Pure # fraction] 3.1 E9/L Normal 1.0 - 4.0 E9/L [facility] HemeAutoSS Monocytes/100 WBC (Bld) 10.3 % Normal 4.0 - 14.0 % [facility] HemeAutoSS Monocytes/Leukocytes Auto (Bld) [Pure # fraction] 0.9 E9/L Normal 0.2 - 1.0 E9/L [facility] HemeAutoSS Neutrophils/100 WBC (Bld) 48.8 % Normal 36.0 - 75.0 % [facility] HemeAutoSS Neutrophils/Leukocytes Auto (Bld) [Pure # fraction] 4.4 E9/L Normal 2.0 - 7.5 E9/L FT HemeAutoSS HEMATOLOGYOrdered By: Ariana Gupta on 07-12-2022 Erythrocyte distribution width (RBC) [Ratio] 13.6 % Normal 10.9 - 14.2 % [facility] HemeAutoSS Hematocrit (Bld) [Volume fraction] 35.6 % Normal 34.0 - 46.0 % [facility] HemeAutoSS Hemoglobin (Bld) [Mass/Vol] 12.5 g/dL Normal 12.0 - 16.0 gm/dL [facility] HemeAutoSS MCH (RBC) [Entitic mass] 28.7 pg Normal 27. 0 - 34.0 pg [facility] HemeAutoSS MCHC (RBC) [Mass/Vol] 35.1 g/dL Normal 31.4 - 36.0 gm/dL [facility] HemeAutoSS MCV (RBC) [Entitic vol] 81.8 fL Normal 80.0 - 100.0 fL [facility] HemeAutoSS Platelet mean volume (Bld) [Entitic vol] 7.6 fL Normal 6.4 - 10.8 fL [facility] HemeAutoSS Platelets (Bld) [#/Vol] 262.0 E9/L Normal 150. 0 - 500.0 E9/L [facility] HemeAutoSS RBC (Bld) [#/Vol] 4.4 E12/L Normal 4.3 - 5.9 E12/L [facility] HemeAutoSS WBC corrected for nucl RBC Auto (Bld) [#/Vol] 8.9 E9/L Normal 4.0 - 11.0 E9/L [facility] HemeAutoSS Hep Func Panelon 07-12-2022 Bilirubin.indirect [Mass or moles/Vol] UTC Abnormal 0.1-0.9 [facility] Comment on above: Result Comment: Resu lt verified by Discern Rule. Performed result UTC (Unable to Calculate) was sent as an Alpha code due the inability to calculate a valid numeric value. Performed By: #### 2 704981, 0437829, 5974114, 3346212, 61539038, 4687772, 4717024 #### [facility] [address] [place] [address] Albumin [Mass/Vol] 4.0 g/dL Normal 3.3-5.0 [facility] Comment on above: Performed By: #### 2 133979, 9313901, 7707137, 1158403, 20694077, 9502630, 2738754 #### [facility] [address] [place] [address] Albumin/Globulin (S) [Mass conc ratio] 1.3 Normal 1.1-2.2 [facility] Comment on above: Performed By: #### 2 692717, 7544424, 9893971, 5935941, 03135591, 9154895, 4378459 #### [facility] [address] [place], [place] [address] ALP [Catalytic activity/Vol] 59 Int._Unit/L Normal 21-98 [facility] Comment on above: Performed By: #### 2 466319, 6735067, 4643773, 8069808, 16284658, 1746996, 8952068 #### [facility] [address] [place] [address] ALT No additional P-5'-P [Catalytic activity/Vol] 17 Int._Unit/L Normal 6-46 [facility] Comment on above: Performed By: #### 2 804935, 9664780, 8806145, 6620494, 76912269, 7643838, 9769923 #### [facility] [address] [place] [address] AST [Catalytic activity/Vol] 17 Int._Unit/L Normal 5-43 [facility] Comment on above: Performed By: #### 2 109021, 4955485, 7507927, 0981068, 02405226, 1816945, 3864155 #### [facility] [address] [place] [address] Bilirubin [Mass/Vol] 0.3 mg/dL Normal 0.0-1.1 [facility] Comment on above: Performed By: #### 2 401994, 9285714, 6931201, 3545327, 36520165, 3809943, 6450002 #### [facility] [address] [place] [address] Bilirubin.direct [Mass/Vol] mg/dL Normal 0.1-0.4 [facility] Comment on above: Performed By: #### 2 814436, 5666658, 8176245, 6121366, 68481484, 9407906, 6126227 #### [facility] [address] [place] [address] Globulin (S) [Mass/Vol] 3.1 g/dL Normal 1.4-4.0 F [facility] Comment on above: Performed By: #### 2 225325, 7360465, 0082382, 6216961, 83893545, 9707741, 3465282 #### [facility] [address] [place] [address] Protein [Mass/Vol] 7.1 g/dL Normal 6.0-7.8 [facility] Comment on above: Performed By: #### 2 021831, 2507762, 2496411, 7536886, 99495000, 8003095, 7069588 #### [facility] [address] [place] [address] Lipase Levelon 07-12-2022 Lipase [Catalytic activity/Vol] 35 U/L Normal 13-58 [facility] Comment on above: Performed By: #### 2 222184, 5937386, 2904330, 2179108, 79406576, 6860476, 3741407 #### [facility] [address] [place] [address] SEROLOGYOrdered By: Mignon Gupta on 07-12-2022 Beta hCG Ql Negative (07/12/22 4:02 AM) Normal [facility] Man Sero Troponin 0 Hr.on 07-12-2022 Troponin I.cardiac [Mass/Vol] ng/mL Low 10.10-27.10 [facility] Comment on above: Result Comment: The 95% CI (Confidence Interval) PPV (Positive Predictive Value) for myocardial infarction in females is 38 pg/mL, in males 51 pg/mL. The results should be used in conjunction with clinical conditions of myocardial infarction. (Access High Sensitivity Troponin I Instructions For Use, [employer] [place], March 2018) Performed By: #### 2 610947, 9958594, 3582775, 8537396, 44371975, 8640972, 2639835 #### [facility] [address] [place] [address] XR Chest Single Viewon 07-12 XR Chest [...] M.D. Transcribed by: KG Technologist: SB Normal [facility] eGFRon 07-12-2022 GFR/1.73 sq M.predicted among blacks MDRD (S/P/Bld) [Vol rate/Area] mL/min/{1.73_m2} Normal >=59 [facility] Comment on above: Order Comment: Order added by Discern Expert. Result Comment: eGFR is race adjusted. AA=. Performed By: #### 2 855449, 3350204, 7268290, 7945364, 99591434, 1187650, 2737383 #### [facility] [address] [place] [address] GFR/1.73 sq M.predicted among non-blacks MDRD (S/P/Bld) [Vol rate/Area] mL/min/{1.73_m2} Normal >=59 [facility] Comment on above: Order Comment: Order added by Discern Expert. Result Comment: Ramp Manager emil kidney disease could be indicated at eGFR's of less than 60 mL/min/1.73m2. Kidney failure is indicated at less than 15 mL/min/1.73m2. Performed By: #### 2 791656, 6667460, 5991901, 0819972, 40382530, 2305353, 6288085 #### [facility] [address] [place] [address] CBC with Auto Differentialon 04-18-2022 Absolute Eos # 0.20 [facility] Absolute Lymph # 1.60 [facility] Absolute Hubbard # 0.60 [facility] Basophils (Bld) [#/Vol] 0.00 10*3/uL [facility] Basophils/100 WBC (Bld) 0 % 0 - 2 % [facility] Differential Type YES [facility] Eosinophils/100 WBC (Bld) 2 % 0 - 5 % [facility] Hematocrit (Bld) [Volume fraction] 38.2 % 36 - 46 % [facility] Hemoglobin (Bld) [Mass/Vol] 12.7 g/dL 12 - 16 g/dL [facility] Interpretation and review of laboratory results Abnormal [facility] Lymphocytes/100 WBC (Bld) 16 % 15 - 40 % [facility] MCH (RBC) [Entitic mass] 28.1 pg 26 - 34 pg [facility] MCHC (RBC) [Mass/Vol] 33.2 g/dL 31 - 37 g/dL [facility] MCV (RBC) [Entitic vol] 84.6 fL 80 - 100 fL [facility] Monocytes/100 WBC (Bld) 6 % 4 - 8 % [facility] Platelet distribution width (Bld) [Ratio] 13.3 % 12.1 - 15.2 % [facility] Platelets (Bld) [#/Vol] 294 10*3/uL [facility] RBC (Bld) [#/Vol] 4.52 10*6/uL 4 - 5.2 m/uL [facility] Segmented neutrophils/100 WBC (Bld) 76 % High 47 - 75 % [facility] Segs Absolute 7.60 High [facility] WBC (Bld) [#/Vol] 10.0 10*3/uL [facility] CMPon 04-18-2022 Albumin [Mass/Vol] 4.4 g/dL 3.5 - 5.2 g/dL [facility] ALP (Bld) [Catalytic activity/Vol] 93 U/L 35 - 104 U/L [facility] ALT [Catalytic activity/Vol] 17 U/L 5 - 33 U/L [facility] Anion gap [Moles/Vol] 8 mmol/L Low 9 - 17 mmol/L [facility] AST [Catalytic activity/Vol] 17 U/L NINF - 32 U/L [facility] Bilirubin [Mass/Vol] 0.20 mg/dL Low 0.3 - 1 .2 mg/dL [facility] Calcium [Mass/Vol] 9.5 mg/dL 8.6 - 10. 4 mg/dL [facility] Chloride [Moles/Vol] 106 mmol/L 98 - 10 7 mmol/L [facility] CO2 [Moles/Vol] 26 mmol/L 20 - 31 mmol/L [facility] Creatinine [Mass/Vol] 0.66 mg/dL 0.5 - 0.9 mg/dL [facility] Free PSA/Total PSA [Mass fraction] 6.9 g/dL 6.4 - 8.3 g/dL [facility] GFR >60 60 - PI NF mL/min [facility] GFR Non- >60 60 - PINF mL/min [facility] GFR/1.73 sq M.predicted MDRD (S/P/Bld) [Vol rate/Area] [facility] Comment on above: Average GFR for 20-2 9 years old: 116 mL/min/1.73sq m Chronic Kidney Disease: <60 mL/min/1.73sq m Kidney failure: <15 mL/min/1.73sq m eGFR calculated using average adult body mass. Additional eGFR calculator available at: http://www.[employer]/multiple_crcl_2012.htm Glucose [Mass/Vol] 108 mg/dL High 70 - 99 mg/dL [facility] Interpretation and review of laboratory results Abnormal [facility] Potassium [Moles/Vol] 3.6 mmol/L Low 3.7 - 5.3 mmol/L [facility] Sodium [Moles/Vol] 140 mmol/L 135 - 144 mmol/L [facility] Urea nitrogen (BldV) [Mass/Vol] 5 mg/dL Low 6 - 20 mg/dL [facility] Urea nitrogen/Creatinine (Bld) [Mass ratio] 8 Low 9 - 20 [facility] HCG Qualitative, Serumon hCG Qual Negative NEGATIVE [facility] Comment on above: Specimens with hCG l evels near the threshold of the test (25 mIU/mL) may give a negative or indeterminate result. In such cases, another test should be performed with a new specimen in 48-72 hours. If early is suspected clinically in this setting, correlation with quantitative serum b-hCG level is suggested. [employer] has confirmed the use of plasma for this test. This has not been cleared or approved by the U.S. Food and Drug Administration. The FDA has determined that such clearance is not necessary. [facility] Microscopic Urinalysison - [facility] Epithelial Cells UA 0 TO 2 /HPF [facility] RBC, UA 2 TO 5 [facility] WBC, UA NONE SEEN 0 /HPF [facility] Urinalysison 04-18-2022 Bilirubin Urine Negative NEGATIVE [facility] Color, UA Yellow Yellow [facility] Glucose, Ur Negative NEGATIVE [facility] Interpretation and review of laboratory results Abnormal [facility] Ketones Ql (U) Negative NEGATIVE [facility] Leukocyte esterase Test strip Ql (U) Negative NEGATIVE [facility] Nitrite, Urine Negative NEGATIVE [facility] pH, UA 8.0 5 - 8 [facility] Protein, UA Negative NEGATIVE [facility] Specific [place], UA 1.015 1.005 - 1.03 [facility] Turbidity UA Clear Clear [facility] Urinalysis Comments [facility] Urine Hgb 2+ Abnormal NEGATIVE [facility] Urobilinogen, Urine Normal Normal [facility] PAP ACOG PANEL 2: 21 to 29on 04-13-2022 . . Normal [facility] Comment on above: Performed By: #### 4 [id number] #### [facility] [address] [place] [address] Dr. Tasha Whalen Age Gdln ACOG Testing Comment [facility] Comment on above: Result Comment: <21 or >65 or no age provided Performed By: #### 4 544326 #### [facility] [address] [place] [address] Dr. Tasha Whalen DIAGNOSIS: Comment [facility] Comment on above: Result Comment: NEGA TIVE FOR INTRAEPITHELIAL LESION OR MALIGNANCY. Performed By: #### 4 696907 #### [facility] [address] [place] [address] Dr. Tasha Whalen Methodology: Comment [facility] Comment on above: Result Comment: This liquid based ThinPrep(R) pap test was screened with the use of an image guided system. Performed By: #### 4 [id number] #### [facility] [address] [place] [address] Dr. Tasha Whalen Note: Comment [facility] Comment on above: Result Comment: The Pap smear is a screening test designed to aid in the detection of premalignant and malignant conditions of the uterine cervix. It is not a diagnostic procedure and should not be used as the sole means of detecting cervical cancer. Both false-positive and false-negative reports do occur. . Performed By: #### 4 [id number] #### [facility] [address] [place] [address] Dr. Tasha Whalen Performed by: Comment [facility] Comment on above: Result Comment: Nancy Wooten, Prize Jacker (ASCP) Performed By: #### 4 507377 #### [facility] [address] [place] [address] Dr. Tasha Whalen Specimen adequacy: Comment Normal [facility] Comment on above: Result Comment: Sati sfactory for evaluation. Endocervical and/or squamous metaplastic cells (endocervical component) are present. Performed By: #### 4 [id number] #### [facility] [address] [place] [address] Dr. Tasha Whalen CHLAMYDIA/GONOCOCCUS CATRINA ( AB/URINE/PAPon 04-12-2022 Chlamydia trachomatis, CATRINA Negative Normal Negative [facility] Comment on above: Performed By: #### C T/NGNA #### [facility] [address] [place] [address] Dr. Tasha Whalen Neisseria gonorrhoeae, CATRINA Negative Normal Negative [facility] Comment on above: Performed By: #### C T/NGNA #### [facility] [address] [place] [address] Dr. Tasha Whalen VAGINITIS/VAGINOSIS DNA PROB Dell 04-11-2022 Dylan species Negative Normal Negative [facility] Comment on above: Performed By: #### V AGINT #### [facility] [address] [place] [address] Dr. Tasha Whalen Gardnerella vaginalis Negative Normal Negative [facility] Comment on above: Performed By: #### V AGINT #### [facility] [address] [place] [address] Dr. Tasha Whalen Trichomonas vaginalis Negative Normal Negative [facility] Comment on above: Performed By: #### V AGINT #### [facility] [address] [place] [address] Dr. Tasha Whalen PREG QUANT HCGon 02-15-2022 HCG QUANT <1 Normal [facility] Comment on above: Performed By: #### P REGQNT #### [facility] [address] [place] [address] Dr. Tasha Whalen HCG RANGE SEE BELOW Normal [facility] Comment on above: Result Comment: 5-50 0-1 WEEK 40-300 1-2 WEEKS 100-1,000 2-3 WEEKS 500-6,000 3-4 WEEKS 5,000-200,000 1-2 MONTHS 10,000-100,000 2-3 MONTHS 3,000-50,000 2ND TRIMESTER 1,000-50,000 3RD TRIMESTER Performed By: #### P REGQNT #### [facility] [address] [place] [address] Dr. Tasha Whalen Vital Signs Date Time Vital Sign Value Performing Clinician Facility 09-22-2024 11:11-0500 Body mass index (BMI) [Ratio] 27.72 kg/m2 Jo DENNIS Work Phone: [facility] 09-22-2024 11:11-0500 Body weight 80.29 kg Jo DENNIS Work Phone: [facility] 09-22-2024 11:11-0500 Diastolic blood pressure 62 mm[Hg] Jo DENNIS Work Phone: [facility] 09-22-2024 11:11-0500 Systolic blood pressure 120 mm[Hg] Jo DENNIS Work Phone: [facility] 09-15-2024 11:24-0500 Body mass index (BMI) [Ratio] 27.78 kg/m2 Julius Keira DO Work Phone: [facility] 09-15-2024 11:24-0500 Body weight 80.47 kg Julius Keira DO Work Phone: [facility] 09-15-2024 11:24-0500 Diastolic blood pressure 64 mm[Hg] Julius Keira DO Work Phone: [facility] 09-15-2024 11:24-0500 Systolic blood pressure 104 mm[Hg] Julius Keira DO Work Phone: [facility] 09-07-2024 10:49-0500 Body mass index (BMI) [Ratio] 27.88 kg/m2 Jo DENNIS Work Phone: [facility] 09-07-2024 10:49-0500 Body weight 80.74 kg Jo DENNIS Work Phone: [facility] 09-07-2024 10:49-0500 Diastolic blood pressure 62 mm[Hg] Jo DENNIS Work Phone: [facility] 09-07-2024 10:49-0500 Systolic blood pressure 108 mm[Hg] Jo DENNIS Work Phone: [facility] 09-02-2024 12:00-0500 Hourly Rounding [facility] 09-02-2024 12:00-0500 Promise to Return [facility] 09-02-2024 11:44-0500 Hourly Rounding [facility] 09-02-2024 11:44-0500 Promise to Return [facility] 09-02-2024 11:41-0500 Heart rate 76 /min [facility] 09-02-2024 11:41-0500 SaO2% (BldA) [Mass fraction] 98 % [facility] 09-02-2024 11:41-0500 Body temperature 97.34 [degF] [facility] 09-02-2024 11:40-0500 Blood Pressure Location [facility] 09-02-2024 11:40-0500 Diastolic blood pressure 60 mm[Hg] [facility] 09-02-2024 11:40-0500 Mean blood pressure 72 mm[Hg] [facility] 09-02-2024 11:40-0500 Systolic blood pressure 96 mm[Hg] [facility] 09-02-2024 10:28-0500 Hourly Rounding [facility] 09-02-2024 10:28-0500 Promise to Return [facility] 09-02-2024 08:20-0500 Blood Pressure Location [facility] 09-02-2024 08:20-0500 Body temperature 97.7 [degF] [facility] 09-02-2024 08:20-0500 Diastolic blood pressure 64 mm[Hg] [facility] 09-02-2024 08:20-0500 Heart rate 60 /min [facility] 09-02-2024 08:20-0500 Mean blood pressure 76 mm[Hg] [facility] 09-02-2024 08:20-0500 Respiratory rate 16 /min [facility] 09-02-2024 08:20-0500 SaO2% (BldA) [Mass fraction] 97 % [facility] 09-02-2024 08:20-0500 Systolic blood pressure 99 mm[Hg] [facility] 09-02-2024 07:40-0500 SaO2% (BldA) [Mass fraction] 97 % [facility] 09-02-2024 04:00-0500 Diastolic blood pressure 69 mm[Hg] [facility] 09-02-2024 04:00-0500 Heart rate 84 /min [facility] 09-02-2024 04:00-0500 Mean blood pressure 81 mm[Hg] [facility] 09-02-2024 04:00-0500 Respiratory rate 18 /min [facility] 09-02-2024 04:00-0500 Systolic blood pressure 105 mm[Hg] [facility] 09-02-2024 00:00-0500 Body temperature 97.34 [degF] [facility] 09-02-2024 00:00-0500 Mean blood pressure 66 mm[Hg] [facility] 09-02-2024 00:00-0500 Respiratory rate 16 /min [facility] 09-01-2024 15:45-0500 Body temperature 97.52 [degF] [facility] 09-01-2024 15:45-0500 Mean blood pressure 78 mm[Hg] [facility] 09-01-2024 14:00-0500 Respiratory rate 35 /min [facility] 09-01-2024 04:58-0500 Heart rate 63 /min [facility] 09-01-2024 04:23-0500 Respiratory rate 22 /min [facility] 09-01-2024 03:00-0500 Respiratory rate 17 /min [facility] 09-01-2024 00:32-0500 Heart rate 134 /min [facility] 08-31-2024 10:58-0500 Body mass index (BMI) [Ratio] 27.63 kg/m2 Julius Keira DO Work Phone: [facility] 08-31-2024 10:58-0500 Body weight 80.02 kg Julius Keira DO Work Phone: [facility] 08-31-2024 10:58-0500 Diastolic blood pressure 64 mm[Hg] Julius Keira DO Work Phone: [facility] 08-31-2024 10:58-0500 Systolic blood pressure 110 mm[Hg] Julius Keira DO Work Phone: [facility] 08-11-2024 10:54-0500 Body mass index (BMI) [Ratio] 27.41 kg/m2 Jo DENNIS Work Phone: [facility] 08-11-2024 10:54-0500 Body weight 79.38 kg Jo DENNIS Work Phone: [facility] 08-11-2024 10:54-0500 Diastolic blood pressure 68 mm[Hg] Jo DENNIS Work Phone: [facility] 08-11-2024 10:54-0500 Systolic blood pressure 110 mm[Hg] Jo DENNIS Work Phone: [facility] 07-28-2024 12:04-0500 Body mass index (BMI) [Ratio] 27.69 kg/m2 Julius Keira DO Work Phone: [facility] 07-28-2024 12:04-0500 Body weight 80.2 kg Julius Keira DO Work Phone: [facility] 07-28-2024 12:04-0500 Diastolic blood pressure 62 mm[Hg] Julius Keira DO Work Phone: [facility] 07-28-2024 12:04-0500 Systolic blood pressure 108 mm[Hg] Julius Keira DO Work Phone: [facility] 07-25-2024 23:48-0500 Diastolic blood pressure 56 mm[Hg] Kaylinn Dokken [facility] 07-25-2024 23:48-0500 Heart rate 77 /min Kaylinn Dokken [facility] 07-25-2024 23:48-0500 Mean blood pressure 71 mm[Hg] Kaylinn Dokken [facility] 07-25-2024 23:48-0500 SaO2% (BldA) [Mass fraction] 99 % Kaylinn Dokken [facility] 07-25-2024 23:48-0500 Systolic blood pressure 102 mm[Hg] Kaylinn Dokken [facility] 07-25-2024 23:14-0500 Diastolic blood pressure 59 mm[Hg] Kaylinn Dokken [facility] 07-25-2024 23:14-0500 Heart rate 90 /min Kaylinn Dokken [facility] 07-25-2024 23:14-0500 Mean blood pressure 77 mm[Hg] Kaylinn Dokken [facility] 07-25-2024 23:14-0500 Respiratory rate 17 /min Kaylinn Dokken [facility] 07-25-2024 23:14-0500 SaO2% (BldA) [Mass fraction] 96 % Kaylinn Dokken [facility] 07-25-2024 23:14-0500 Systolic blood pressure 112 mm[Hg] Kaylinn Dokken [facility] 07-25-2024 22:13-0500 Body temperature 97.88 [degF] Kaylinn Dokken [facility] 07-25-2024 22:13-0500 Diastolic blood pressure 66 mm[Hg] Kaylinn Dokken [facility] 07-25-2024 22:13-0500 Heart rate 84 /min Kaylinn Dokken [facility] 07-25-2024 22:13-0500 Respiratory rate 16 /min Kaylinn Dokken [facility] 07-25-2024 22:13-0500 SaO2% (BldA) [Mass fraction] 98 % Kaylinn Dokken [facility] 07-25-2024 22:13-0500 Systolic blood pressure 107 mm[Hg] Kaylinn Dokken [facility] 07-12-2024 11:10-0500 Body mass index (BMI) [Ratio] 27.57 kg/m2 Jo DENNIS Work Phone: [facility] 07-12-2024 11:10-0500 Body weight 79.83 kg Jo Coloma PA Work Phone: [facility] 07-12-2024 11:10-0500 Diastolic blood pressure 58 mm[Hg] Jo Coloma PA Work Phone: [facility] 07-12-2024 11:10-0500 Systolic blood pressure 110 mm[Hg] Jo Justin PA Work Phone: [facility] 06-28-2024 11:27-0500 Body mass index (BMI) [Ratio] 27.06 kg/m2 Julius Keira DO Work Phone: [facility] 06-28-2024 11:27-0500 Body weight 78.36 kg Julius Keira DO Work Phone: [facility] 06-28-2024 11:27-0500 Diastolic blood pressure 68 mm[Hg] Julius Keira DO Work Phone: [facility] 06-28-2024 11:27-0500 Systolic blood pressure 100 mm[Hg] Jluius Keira DO Work Phone: [facility] 05-27-2024 10:09-0400 Body mass index (BMI) [Ratio] 26 kg/m2 Jo Coloma PA Work Phone: [facility] 05-27-2024 10:09-0400 Body weight 75.3 kg Jo Coloma PA Work Phone: [facility] 05-27-2024 10:09-0400 Diastolic blood pressure 64 mm[Hg] Jo Justin PA Work Phone: [facility] 05-27-2024 10:09-0400 Systolic blood pressure 110 mm[Hg] Jo Coloma PA Work Phone: [facility] 04-29-2024 11:56-0400 Body mass index (BMI) [Ratio] 25.22 kg/m2 Jo Justin PA Work Phone: [facility] 04-29-2024 11:56-0400 Body weight 73.03 kg Jo Coloma PA Work Phone: [facility] 04-29-2024 11:56-0400 Diastolic blood pressure 72 mm[Hg] Jo DENNIS Work Phone: [facility] 04-29-2024 11:56-0400 Systolic blood pressure 110 mm[Hg] Jo DENNIS Work Phone: [facility] 04-23-2024 12:00-0400 Diastolic blood pressure 58 mm[Hg] [facility] 04-23-2024 12:00-0400 Heart rate 62 /min [facility] 04-23-2024 12:00-0400 Mean blood pressure 72 mm[Hg] [facility] 04-23-2024 12:00-0400 SaO2% (BldA) [Mass fraction] 99 % [facility] 04-23-2024 12:00-0400 Systolic blood pressure 100 mm[Hg] [facility] 04-23-2024 11:30-0400 Diastolic blood pressure 54 mm[Hg] [facility] 04-23-2024 11:30-0400 Heart rate 60 /min [facility] 04-23-2024 11:30-0400 Mean blood pressure 68 mm[Hg] [facility] 04-23-2024 11:30-0400 Respiratory rate 18 /min [facility] 04-23-2024 11:30-0400 SaO2% (BldA) [Mass fraction] 98 % [facility] 04-23-2024 11:30-0400 Systolic blood pressure 96 mm[Hg] [facility] 04-23-2024 11:00-0400 Diastolic blood pressure 56 mm[Hg] [facility] 04-23-2024 11:00-0400 Heart rate 56 /min [facility] 04-23-2024 11:00-0400 Mean blood pressure 70 mm[Hg] [facility] 04-23-2024 11:00-0400 Systolic blood pressure 97 mm[Hg] [facility] 04-23-2024 09:42-0400 Body temperature 98.24 [degF] [facility] 04-23-2024 09:42-0400 Heart rate 65 /min [facility] 09-08-2023 11:05-0500 Body temperature 98.78 [degF] Fercho Addison [facility] 09-08-2023 11:05-0500 Diastolic blood pressure 82 mm[Hg] Fercho Addison [facility] 09-08-2023 11:05-0500 Heart rate 95 /min Fercho Addison [facility] 09-08-2023 11:05-0500 Respiratory rate 16 /min Fercho Addison [facility] 09-08-2023 11:05-0500 SaO2% (BldA) [Mass fraction] 98 % Fercho Addison [facility] 09-08-2023 11:05-0500 Systolic blood pressure 131 mm[Hg] Fercho Addison [facility] 06-05-2023 18:36-0400 Diastolic blood pressure 58 mm[Hg] Fercho Addison [facility] 06-05-2023 18:36-0400 Heart rate 90 /min Fercho Addison [facility] 06-05-2023 18:36-0400 Mean blood pressure 73 mm[Hg] Fercho Addison [facility] 06-05-2023 18:36-0400 Respiratory rate 16 /min Fercho Addison [facility] 06-05-2023 18:36-0400 SaO2% (BldA) [Mass fraction] 99 % Fercho Addison [facility] 06-05-2023 18:36-0400 Systolic blood pressure 104 mm[Hg] Fercho Addison [facility] 06-05-2023 18:23-0400 Diastolic blood pressure 52 mm[Hg] Fercho Addison [facility] 06-05-2023 18:23-0400 Heart rate 82 /min Fercho Addison [facility] 06-05-2023 18:23-0400 Mean blood pressure 66 mm[Hg] Fercho Addison [facility] 06-05-2023 18:23-0400 Respiratory rate 14 /min Fercho Addison [facility] 06-05-2023 18:23-0400 SaO2% (BldA) [Mass fraction] 98 % Fercho Addison [facility] 06-05-2023 18:23-0400 Systolic blood pressure 94 mm[Hg] Fercho Addison [facility] 06-05-2023 17:31-0400 Diastolic blood pressure 60 mm[Hg] Fercho Addison [facility] 06-05-2023 17:31-0400 Heart rate 89 /min Fercho Addison [facility] 06-05-2023 17:31-0400 Mean blood pressure 71 mm[Hg] Fercho Addison [facility] 06-05-2023 17:31-0400 Respiratory rate 16 /min Fercho Addison [facility] 06-05-2023 17:31-0400 SaO2% (BldA) [Mass fraction] 98 % Fercho Jaime [facility] 06-05-2023 17:31-0400 Systolic blood pressure 93 mm[Hg] Fercho Jaime [facility] 06-05-2023 15:48-0400 Body temperature 98.42 [degF] Fercho Jaime [facility] 06-05-2023 15:48-0400 Heart rate 97 /min Fercho Jaime [facility] 12-07-2022 03:06-0400 Body weight 72.1224 kg JO ANDERSON . [facility] Comment on above: Performed By: #### AFPMAT #### [facility] [address] [address] [address] Tasha Whalen 11-25-2022 22:27-0400 Hourly Rounding Shawn Wilson [facility] Comment on above: Result Comment: pt. discharged off unit, ambulatory; RN offers to assist to ER entrance; pt. denies 11-25-2022 22:20-0400 Hourly Rounding Shawn Wilson [facility] Comment on above: Result Comment: discharge papers given, education provided about belly band, follow up with primary provider in 2-3 days, and taking Tylenol for pain management as needed; questions answered; papers signed; pt. to get up and get dressed, no grimace or physical symptoms of pain noted in patient while moving 11-25-2022 22:10-0400 Hourly Rounding Shawn Wilson [facility] Comment on above: Result Comment: RN checks in on patient following medication administration; pt. verbalizes that medication helped and belly band is helping; RN answers question about UA results with patient; no physical signs of pain noted in pt. at this time, no grimace; RN to d/c pt. per physician order 11-25-2022 22:10-0400 Promise to Return Shawn Littleten [facility] 11-25-2022 21:24-0400 Promise to Return Shawn Wilson [facility] 11-25-2022 20:47-0400 Blood Pressure Location Shawn Steve [facility] 11-25-2022 20:47-0400 Body temperature 98.24 [degF] Shawn Steve [facility] 11-25-2022 20:47-0400 Diastolic blood pressure 56 mm[Hg] Shawn Steve [facility] 11-25-2022 20:47-0400 Heart rate 74 /min Shawn Littleten [facility] 11-25-2022 20:47-0400 Mean blood pressure 73 mm[Hg] Shawn Steve [facility] 11-25-2022 20:47-0400 Promise to Return Shawn Wilsno [facility] 11-25-2022 20:47-0400 Respiratory rate 16 /min Shawn Littleten [facility] 11-25-2022 20:47-0400 Systolic blood pressure 108 mm[Hg] Shawn Steve [facility] 11-25-2022 18:45-0400 Blood Pressure Location Shawn Littleten [facility] 11-25-2022 18:45-0400 Body temperature 97.52 [degF] Shawn Steve [facility] 11-25-2022 18:45-0400 Diastolic blood pressure 59 mm[Hg] Shawn Steve [facility] 11-25-2022 18:45-0400 Heart rate 79 /min Shawn Steve [facility] 11-25-2022 18:45-0400 Mean blood pressure 76 mm[Hg] Shawn Wilson [facility] 11-25-2022 18:45-0400 Respiratory rate 18 /min Shawn Wilson [facility] 11-25-2022 18:45-0400 Systolic blood pressure 110 mm[Hg] Shawn Wilson [facility] 09-30-2022 08:59-0500 Body height 175.3 cm Morgan Falk DO Work Phone: [facility] [employer] 09-30-2022 08:59-0500 Body mass index (BMI) [Ratio] 23.63 kg/m2 Morgan Falk DO Work Phone: [facility] [employer] 09-30-2022 08:59-0500 Body temperature 98.1 [degF] Morgan Falk DO Work Phone: [facility] [employer] 09-30-2022 08:59-0500 Body weight 72.58 kg Morgan Falk DO Work Phone: [facility] [employer] 09-30-2022 08:59-0500 Diastolic blood pressure 64 mm[Hg] Morgan Falk DO Work Phone: [facility] [employer] 09-30-2022 08:59-0500 Heart rate 78 /min Morgan Falk DO Work Phone: [facility] [employer] 09-30-2022 08:59-0500 Respiratory rate 20 /min Morgan Falk DO Work Phone: [facility] [employer] 09-30-2022 08:59-0500 SaO2% (BldA) [Mass fraction] 98 % Morgan Falk DO Work Phone: [facility] [employer] 09-30-2022 08:59-0500 Systolic blood pressure 112 mm[Hg] Morgan aFlk DO Work Phone: [facility] [employer] 09-26-2022 13:23-0500 Body height 172.7 cm Nguyen Edmonds MD Work Phone: [employer] 09-26-2022 13:23-0500 Body mass index (BMI) [Ratio] 24.4 kg/m2 Nguyen Edmonds MD Work Phone: [employer] 09-26-2022 13:23-0500 Body temperature 98.01 [degF] Nguyen Edmonds MD Work Phone: [employer] 09-26-2022 13:23-0500 Body weight 72.8 kg Nguyen Edmonds MD Work Phone: [employer] 09-26-2022 13:23-0500 Diastolic blood pressure 69 mm[Hg] Nguyen Edmonds MD Work Phone: [employer] 09-26-2022 13:23-0500 Heart rate 82 /min Nguyen Edmonds MD Work Phone: [employer] 09-26-2022 13:23-0500 Respiratory rate 18 /min Nguyen Edmonds MD Work Phone: [employer] 09-26-2022 13:23-0500 SaO2% (BldA) [Mass fraction] 100 % Nguyen Edmonds MD Work Phone: [employer] 09-26-2022 13:23-0500 Systolic blood pressure 111 mm[Hg] Nguyen Edmonds MD Work Phone: [employer] 09-04-2022 20:05-0500 Body height 172.7 cm Lebron Guevara MD Work Phone: [employer] 09-04-2022 20:05-0500 Body mass index (BMI) [Ratio] 24.89 kg/m2 Lebron Guevara MD Work Phone: [employer] 09-04-2022 20:05-0500 Body temperature 99.9 [degF] Lebron Guevara MD Work Phone: [employer] 09-04-2022 20:05-0500 Body weight 74.25 kg Lebron Guevara MD Work Phone: [facility] 09-04-2022 20:05-0500 Diastolic blood pressure 72 mm[Hg] Lebron Guevara MD Work Phone: [facility] 09-04-2022 20:05-0500 Heart rate 74 /min Lebron Guevara MD Work Phone: [facility] 09-04-2022 20:05-0500 Respiratory rate 18 /min Lebron Guevara MD Work Phone: [facility] 09-04-2022 20:05-0500 SaO2% (BldA) [Mass fraction] 98 % Lebron Guevara MD Work Phone: [facility] 09-04-2022 20:05-0500 Systolic blood pressure 111 mm[Hg] Lebron Guevara MD Work Phone: [facility] 08-29-2022 01:32-0500 Hourly Rounding [facility] 08-29-2022 01:32-0500 Promise to Return [facility] 08-29-2022 00:48-0500 Hourly Rounding [facility] 08-29-2022 00:48-0500 Promise to Return [facility] 08-29-2022 00:17-0500 Diastolic blood pressure 51 mm[Hg] [facility] 08-29-2022 00:17-0500 Heart rate 72 /min [facility] 08-29-2022 00:17-0500 Mean blood pressure 69 mm[Hg] [facility] 08-29-2022 00:17-0500 Respiratory rate 16 /min [facility] 08-29-2022 00:17-0500 SaO2% (BldA) [Mass fraction] 99 % [facility] 08-29-2022 00:17-0500 Systolic blood pressure 105 mm[Hg] [facility] 08-28-2022 23:35-0500 Diastolic blood pressure 53 mm[Hg] [facility] 08-28-2022 23:35-0500 Heart rate 65 /min [facility] 08-28-2022 23:35-0500 Mean blood pressure 68 mm[Hg] [facility] 08-28-2022 23:35-0500 Respiratory rate 18 /min [facility] 08-28-2022 23:35-0500 SaO2% (BldA) [Mass fraction] 100 % [facility] 08-28-2022 23:35-0500 Systolic blood pressure 97 mm[Hg] [facility] 08-28-2022 23:30-0500 Hourly Rounding [facility] 08-28-2022 23:30-0500 Promise to Return [facility] 08-28-2022 22:45-0500 Diastolic blood pressure 55 mm[Hg] [facility] 08-28-2022 22:45-0500 Heart rate 62 /min [facility] 08-28-2022 22:45-0500 Mean blood pressure 69 mm[Hg] [facility] 08-28-2022 22:45-0500 Respiratory rate 20 /min [facility] 08-28-2022 22:45-0500 SaO2% (BldA) [Mass fraction] 93 % [facility] 08-28-2022 22:45-0500 Systolic blood pressure 98 mm[Hg] [facility] 08-28-2022 21:31-0500 Body temperature 97.88 [degF] [facility] 08-28-2022 21:31-0500 Heart rate 78 /min Alfredito Brennan [facility] 08-26-2022 11:02-0500 Body temperature 98.6 [degF] Kei Moore [facility] 08-26-2022 11:02-0500 Diastolic blood pressure 70 mm[Hg] Kei Moore [facility] 08-26-2022 11:02-0500 Heart rate 66 /min Kei Moore [facility] 08-26-2022 11:02-0500 Respiratory rate 16 /min Kei Moore [facility] 08-26-2022 11:02-0500 SaO2% (BldA) [Mass fraction] 96 % Kei Moore [facility] 08-26-2022 11:02-0500 Systolic blood pressure 115 mm[Hg] Kei Moore [facility] 08-24-2022 01:01-0500 Body height 172.7 cm Andrea Mitchell MD Work Phone: [facility] 08-24-2022 01:01-0500 Body mass index (BMI) [Ratio] 25.51 kg/m2 Andrea Mitchell MD Work Phone: [facility] 08-24-2022 01:01-0500 Body temperature 98.1 [degF] Andrea Mitchell MD Work Phone: [facility] 08-24-2022 01:01-0500 Body weight 76.11 kg Andrea Mitchell MD Work Phone: [facility] 08-24-2022 01:01-0500 Diastolic blood pressure 74 mm[Hg] Andrea Mitchell MD Work Phone: [facility] 08-24-2022 01:01-0500 Heart rate 82 /min [facility] 08-24-2022 01:01-0500 Respiratory rate 18 /min Andrea Mitchell [facility] 08-24-2022 01:01-0500 SaO2% (BldA) [Mass fraction] 99 % Andrea Mitchell [facility] 08-24-2022 01:01-0500 Systolic blood pressure 119 mm[Hg] Andrea Mitchell [facility] 08-10-2022 00:13-0500 Body mass index (BMI) [Ratio] 25.7 kg/m2 Lebron Guevara MD [facility] 08-10-2022 00:13-0500 Body temperature 97.59 [degF] Lebron Guevara MD Work Phone: [facility] [facility] 08-10-2022 00:13-0500 Body weight 76.66 kg Lebron Guevara MD Work Phone: [facility] 08-10-2022 00:13-0500 Diastolic blood pressure 70 mm[Hg] Lebron Guevara MD Work Phone: [facility] 08-10-2022 00:13-0500 Heart rate 97 /min Lebron Guevara MD Work Phone: [facility] 08-10-2022 00:13-0500 Respiratory rate 16 /min Lebron Gueavra MD Work Phone: [facility] [employer] 08-10-2022 00:13-0500 SaO2% (BldA) [Mass fraction] 98 % Lebron Guevara MD Work Phone: [facility] [employer] 08-10-2022 00:13-0500 Systolic blood pressure 123 mm[Hg] Lebron Guevara MD Work Phone: [facility] [employer] 08-06-2022 01:39-0500 Body height 172.7 cm Morgan Falk DO Work Phone: [facility] 08-06-2022 01:39-0500 Body mass index (BMI) [Ratio] 25.39 kg/m2 Morgan Falk DO Work Phone: [facility] 08-06-2022 01:39-0500 Body temperature 97.81 [degF] Morgan Falk Work Phone: [facility] 08-06-2022 01:39-0500 Body weight 75.75 kg Morgan Falk DO Work Phone: [facility] 08-06-2022 01:39-0500 Diastolic blood pressure 63 mm[Hg] Morgan Falk Work Phone: [facility] 08-06-2022 01:39-0500 Heart rate 95 /min Morgan Falk Work Phone: [facility] 08-06-2022 01:39-0500 Respiratory rate 18 /min Morgan Falk DO Work Phone: [facility] 08-06-2022 01:39-0500 SaO2% (BldA) [Mass fraction] 98 % Morgan Falk Work Phone: [facility] 08-06-2022 01:39-0500 Systolic blood pressure 116 mm[Hg] Morgan Falk Work Phone: [facility] 07-12-2022 05:06-0500 Heart rate 86 /min Kaylinn Dokken [facility] 07-12-2022 05:06-0500 Respiratory rate 11 /min Kaylinn Dokken [facility] 07-12-2022 05:06-0500 SaO2% (BldA) [Mass fraction] 97 % Kaylinn Dokken [facility] 07-12-2022 03:38-0500 Body temperature 97.52 [degF] Sissy Shah [facility] 07-12-2022 03:38-0500 Diastolic blood pressure 64 mm[Hg] Sissy Shah [facility] 07-12-2022 03:38-0500 Heart rate 94 /min Sissy Shah [facility] 07-12-2022 03:38-0500 Respiratory rate 20 /min Sissy Shah [facility] 07-12-2022 03:38-0500 SaO2% (BldA) [Mass fraction] 98 % Sissy Shah [facility] 07-12-2022 03:38-0500 Systolic blood pressure 125 mm[Hg] Sissy Shah [facility] 07-01-2022 14:43-0500 Diastolic blood pressure 67 mm[Hg] Alejandra Winkler MD Work Phone: [employer] 07-01-2022 14:43-0500 Systolic blood pressure 103 mm[Hg] Alejandra Winkler MD Work Phone: [employer] 07-01-2022 14:19-0500 Body height 172.7 cm Alejandra Winkler MD Work Phone: [employer] 07-01-2022 14:19-0500 Body mass index (BMI) [Ratio] 24.63 kg/m2 Alejandra Winkler MD Work Phone: [employer] 07-01-2022 14:19-0500 Body temperature 97.3 [degF] Alejandra Winkler MD Work Phone: [employer] 07-01-2022 14:19-0500 Body weight 73.48 kg Alejandra Winkler MD Work Phone: [employer] 07-01-2022 14:19-0500 Heart rate 82 /min Alejandra Winkler MD Work Phone: [employer] 07-01-2022 14:19-0500 Respiratory rate 16 /min Alejandra Winkler MD Work Phone: [employer] 07-01-2022 14:19-0500 SaO2% (BldA) [Mass fraction] 99 % Alejandra Winkler MD Work Phone: [employer] 04-18-2022 15:20-0400 Body mass index (BMI) [Ratio] 27.06 kg/m2 Lebron Guevara MD Work Phone: [employer] 04-18-2022 15:20-0400 Body temperature 98.2 [degF] Lebron Guevara MD Work Phone: [employer] 04-18-2022 15:20-0400 Body weight 78.38 kg Lebron Guevara MD Work Phone: [employer] 04-18-2022 15:20-0400 Diastolic blood pressure 75 mm[Hg] Lebron Guevara MD Work Phone: [employer] 04-18-2022 15:20-0400 Heart rate 76 /min Lebron Guevara MD Work Phone: [employer] 04-18-2022 15:20-0400 Respiratory rate 16 /min Lebron Guevara MD Work Phone: [employer] 04-18-2022 15:20-0400 SaO2% (BldA) [Mass fraction] 98 % Lebron Guevara MD Work Phone: [employer] 04-18-2022 15:20-0400 Systolic blood pressure 119 mm[Hg] Lebron Guevara MD Work Phone: [employer] 02-27-2022 15:55-0400 Body height 170.2 cm Josemanuel Ibarra MD Work Phone: [employer] 02-27-2022 15:55-0400 Body mass index (BMI) [Ratio] 28.61 kg/m2 Josemanuel Ibarra MD Work Phone: [employer] 02-27-2022 15:55-0400 Body weight 82.87 kg Josemanuel Ibarra MD Work Phone: [employer] 02-27-2022 15:50-0400 Body temperature 98.1 [degF] Josemanuel Ibarra MD Work Phone: [employer] 02-27-2022 15:50-0400 Diastolic blood pressure 76 mm[Hg] Josemanuel Ibarra MD Work Phone: [employer] 02-27-2022 15:50-0400 Heart rate 71 /min Josemanuel Ibarra MD Work Phone: [employer] 02-27-2022 15:50-0400 Respiratory rate 18 /min Josemanuel Ibarra MD Work Phone: [employer] 02-27-2022 15:50-0400 SaO2% (BldA) [Mass fraction] 98 % Josemanuel Ibarra MD Work Phone: [employer] 02-27-2022 15:50-0400 Systolic blood pressure 135 mm[Hg] Josemanuel Ibarra MD Work Phone: [employer] 02-08-2022 19:11-0400 Body height 170.2 cm Josemanuel Ibarra MD Work Phone: [employer] 02-08-2022 19:11-0400 Body mass index (BMI) [Ratio] 28.93 kg/m2 Josemanuel Ibarra MD Work Phone: [employer] 02-08-2022 19:11-0400 Body temperature 98.6 [degF] Josemanuel Ibarra MD Work Phone: [employer] 02-08-2022 19:11-0400 Body weight 83.78 kg Josemanuel Ibarra MD Work Phone: [employer] 02-08-2022 19:11-0400 Diastolic blood pressure 76 mm[Hg] Josemanuel Ibarra MD Work Phone: [employer] 02-08-2022 19:11-0400 Heart rate 85 /min Josemanuel Ibarra MD Work Phone: [employer] 02-08-2022 19:11-0400 Respiratory rate 18 /min Josemanuel Ibarra MD Work Phone: [employer] 02-08-2022 19:11-0400 SaO2% (BldA) [Mass fraction] 99 % Josemanuel Ibarra MD Work Phone: [employer] 02-08-2022 19:11-0400 Systolic blood pressure 124 mm[Hg] Jsoemanuel Ibarra MD Work Phone: [employer] Encounters Encounter Date Encounter Type Care Provider Facility Start: 09-22-2024 End: 09-22-2024 Bamboo flowsheet Jo DENNIS Work Phone: [facility] Start: 09-22-2024 End: 09-22-2024 Bamboo flowsheet Jo DENNIS Work Phone: [facility] Start: 09-22-2024 End: 09-22-2024 Office outpatient visit 15 minutes Jo DENNIS Work Phone: [facility] Comment on above: Third trimester preg po; 39 weeks gestation of Start: 09-22-2024 End: 09-22-2024 ambulatory JO ANDERSON Not Available Start: 09-15-2024 End: 09-15-2024 Bamboo flowsheet Julius Keira DO Work Phone: [facility] Start: 09-15-2024 End: 09-15-2024 Bamboo flowsheet Julius Keira DO Work Phone: [facility] Start: 09-15-2024 End: 09-15-2024 Office outpatient visit 15 minutes Julius Keira DO Work Phone: [facility] Comment on above: Third trimester preg po; 38 weeks gestation of Start: 09-15-2024 End: 09-15-2024 ambulatory JULIUS KEIRA Not Available Start: 09-07-2024 End: 09-07-2024 Bamboo flowsheet Jo DENNIS Work Phone: [facility] Start: 09-07-2024 End: 09-07-2024 Bamboo flowsheet Jo Anderson PA Work Phone: [facility] Start: 09-07-2024 End: 09-07-2024 Office outpatient visit 15 minutes Jo DENNIS Work Phone: [facility] Comment on above: Third trimester preg po; 36 weeks gestation of Start: 09-07-2024 End: 09-07-2024 ambulatory JO ANDERSON Not Available Start: 09-01-2024 End: 09-02-2024 Evaluation and management of inpatient Camille Thornton Facility:[facility] Start: 09-01-2024 Emergency department patient visit Richard Escudero Facility:[facility] Start: 09-01-2024 End: 09-02-2024 Evaluation and management of inpatient Camille Thornton [facility] Start: 08-31-2024 End: 08-31-2024 Bamboo flowsheet Julius Keira DO Work Phone: [facility] Start: 08-31-2024 End: 09-04-2024 Bamboo flowsheet Julius Keira DO Work Phone: [facility] Start: 08-31-2024 End: 09-04-2024 Clinisync Result Encounter Julius Keira DO Work Phone: [facility] Unsolicited Start: 08-31-2024 End: 08-31-2024 Office outpatient visit 15 minutes Julius Keira DO Work Phone: [facility] Comment on above: Third trimester preg po; 35 weeks gestation of Start: 08-31-2024 End: 08-31-2024 Departed Referred Julius Keira DO Work Phone: [facility] Start: 08-31-2024 End: 08-31-[address] [facility] [facility]: Start: 08-11-2024 End: 08-11-2024 Bamboo flowsheet Jo DENNIS Work Phone: [facility] Start: 08-11-2024 End: 08-11-2024 Bamboo flowsheet Jo DENNIS Work Phone: [facility] Start: 08-11-2024 End: 08-11-2024 Office outpatient visit 15 minutes Jo DENNIS Work Phone: [facility] Comment on above: Low iron; Third trimester ; 33 weeks gestation of ; 26 weeks gestation of Start: 08-11-2024 End: 08-11-2024 ambulatory JO ANDERSON Not Available Start: 07-28-2024 End: 07-28-2024 Bamboo flowsheet Julius Keira DO Work Phone: [facility] Start: 07-28-2024 End: 07-28-2024 Bamboo flowsheet Julius Keira DO Work Phone: [facility] Start: 07-28-2024 End: 07-28-2024 Office outpatient visit 15 minutes Julius Keira DO Work Phone: [facility] Comment on above: Third trimester preg po; 30 weeks gestation of Start: 07-28-2024 End: 07-28-2024 ambulatory JULIUS KEIRA Not Available Start: 07-25-2024 End: 07-25-2024 Emergency department patient visit Sissy Shah [facility] Start: 07-12-2024 End: 07-12-2024 Bamboo flowsheet Jo DENNIS Work Phone: [facility] Start: 07-12-2024 End: 07-12-2024 Bamboo flowsheet Jo DENNIS Work Phone: [facility] Start: 07-12-2024 End: 07-12-2024 Office outpatient visit 15 minutes Jo DENNIS Work Phone: [facility] Comment on above: 28 weeks gestation o f ; Third trimester ; size inconsistent with dates Start: 07-12-2024 End: 07-12-2024 ambulatory JO ANDERSON Not Available Start: 06-28-2024 End: 06-28-2024 Bamboo flowsheet Julius Keira DO Work Phone: [facility] Start: 06-28-2024 End: 06-28-2024 Bamboo flowsheet Julius Keira DO Work Phone: [facility] Start: 06-28-2024 End: 06-28-2024 ambulatory JULIUS KEIRA Not Available Start: 06-28-2024 End: 06-28-2024 Office outpatient visit 15 minutes Julius Keira DO Work Phone: [facility] Comment on above: Second trimester pre gnancy; 26 weeks gestation of Start: 06-12-2024 End: 06-12-2024 Clinisync Result Encounter Jo DENNIS Work Phone: [facility] Unsolicited Start: 06-12-2024 End: 06-12-2024 Clinisync Result Encounter Jo DENNIS Work Phone: [facility] Unsolicited Start: 05-27-2024 End: 05-27-2024 Bamboo flowsheet Jo DENNIS Work Phone: [facility] Start: 05-27-2024 End: 05-27-2024 Bamboo flowsheet Jo DENNIS Work Phone: [facility] Start: 05-27-2024 End: 05-27-2024 Office outpatient visit 15 minutes Jo DENNIS Work Phone: [facility] Comment on above: Second trimester pre gnancy; 22 weeks gestation of ; Diabetes mellitus screening; Decreased appetite Start: 05-27-2024 End: 05-27-2024 ambulatory JO ANDERSON Not Available Start: 04-29-2024 End: 04-29-2024 Bamboo flowsheet Jo DENNIS Work Phone: [facility] Start: 04-29-2024 End: 05-01-2024 Bamboo flowsheet Jo DENNIS Work Phone: [facility] Start: 04-29-2024 End: 05-01-2024 Clinisync Result Encounter Jo DENNIS Work Phone: [facility] External Department Unsolicited Start: 04-29-2024 End: 05-01-2024 External Result Encounter Jo DENNIS Work Phone: [facility] External Department Unsolicited Start: 04-29-2024 End: 04-29-2024 Office outpatient visit 15 minutes Jo DENNIS Work Phone: [facility] Comment on above: Screening, , for anatomic survey; Well woman exam with routine gynecological exam; Screen for STD (sexually transmitted disease); Vaginal discharge; 18 weeks gestation of Start: 04-29-2024 End: 04-29-2024 Patient encounter procedure Jo DENNIS Work Phone: [facility] Start: 04-29-2024 End: 04-29-2024 ambulatory JO ANDERSON Not Available Start: 04-23-2024 End: 04-23-2024 [facility] Start: 03-30-2024 End: 03-30-2024 ambulatory JULIUS KEIRA Not Available Start: 02-23-2024 End: 02-23-2024 ambulatory JULIUS KEIRA Not Available Start: 02-01-2024 End: 02-01-2024 Emergency department patient visit [facility] Start: 01-12-2024 End: 01-12-2024 ambulatory JO JUSTIN Not Available Start: 12-14-2023 End: 12-14-2023 Emergency department patient visit [facility] Start: 11-27-2023 End: 11-27-2023 ambulatory JO ANDERSON Not Available Start: 11-14-2023 End: 11-14-2023 ambulatory Julius Keira [facility] Work Phone: Start: 11-14-2023 End: 11-14-2023 Departed Referred Julius Jeffersono Work Phone: [facility] Start: 11-13-2023 End: 11-13-2023 Emergency department patient visit [facility] Start: 11-13-2023 End: 11-13-2023 ambulatory JULIUS KEIRA Not Available Start: 10-16-2023 End: 10-16-2023 ambulatory JULIUS CROCKETT Not Available Start: 09-08-2023 End: 09-08-2023 Emergency department patient visit Fercho Jaime [facility] Start: 06-05-2023 End: 06-05-2023 Emergency department patient visit Fercho Jaime Facility:[facility] Start: 06-05-2023 End: 06-05-2023 Emergency department patient visit Fercho Jaime [facility] Start: 04-05-2023 End: 04-05-2023 Emergency department patient visit [facility] Start: 03-23-2023 End: 03-23-2023 Emergency department patient visit [facility] Start: 12-05-2022 End: 12-06-[address] JULIUS CROCKETT . Facility: Start: 12-05-2022 End: 12-06-2022 ambulatory JO ANDERSON . Facility: Start: 11-26-2022 End: 12-23-2022 Pre-admission assessment Shawn Wilson [facility] Start: 11-25-2022 End: 11-26-2022 ambulatory Shawn Wilson Facility:[facility] Start: 11-25-2022 End: 11-25-2022 OB Triage Shawn Wilson [facility] Start: 11-07-2022 End: 11-07-[address] JULIUS CROCKETT . Facility: Start: 11-07-2022 End: 11-07-2022 ambulatory JO ANDERSON . Facility: Start: 10-04-2022 End: 10-05-[address] JULIUS CROCKETT . Facility: Start: 10-04-2022 End: 10-05-[address] AMBROSE URBANO . Facility: Start: 09-30-2022 End: 09-30-2022 Emergency department patient visit Morgan Falk DO Work Phone: [facility] Comment on above: Nausea and vomiting during (Primary Dx) Start: 09-26-2022 End: 09-26-2022 Emergency department patient visit Nguyen Edmonds MD Work Phone: [facility] Comment on above: Cellulitis of right upper extremity (Primary Dx) Start: 09-20-2022 End: 09-21-2022 ambulatory ALFRED BERGERON Facility: Start: 09-08-2022 End: 09-08-2022 Emergency department patient visit DO Sissy Shah Facility:[facility] Start: 09-04-2022 End: 09-04-2022 Emergency department patient visit Lebron Guevara MD Work Phone: [facility] Comment on above: Vomiting of pregnanc y, antepartum (Primary Dx); Dehydration during Start: 09-02-2022 End: 09-02-2022 Emergency department patient visit Coleman Ludwig Facility:[facility] Start: 08-28-2022 End: 08-29-2022 Emergency department patient visit Alfredito Brennan Facility:[facility] Start: 08-28-2022 End: 08-29-2022 Emergency department patient visit Alfredito Brennan [facility] Start: 08-26-2022 End: 08-26-2022 Emergency department patient visit Kei Moore Facility:[facility] Start: 08-26-2022 End: 08-26-2022 Emergency department patient visit Kei Moore [facility] Start: 08-24-2022 End: 08-24-2022 Emergency department patient visit Andrea Mitchell MD Work Phone: [facility] Comment on above: Hyperemesis gravidar um (Primary Dx); Dehydration Start: 08-10-2022 End: 08-10-2022 Emergency department patient visit Lebron Guevara MD Work Phone: [facility] Comment on above: Abdominal pain durin g in first trimester (Primary Dx); Nausea and vomiting during Start: 08-06-2022 End: 08-06-2022 Emergency department patient visit Morgan Falk DO Work Phone: [facility] Comment on above: Morning sickness (Pr imary Dx) Start: 07-12-2022 End: 07-12-2022 Emergency department patient visit DO Sissy Shah Facility:[facility] Start: 07-12-2022 End: 07-12-2022 Emergency department patient visit Sissy Shah [facility] Start: 07-01-2022 End: 07-01-2022 Emergency department patient visit Alejandra Winkler MD Work Phone: [facility] Comment on above: Pain, dental (Primar y Dx); History of tooth extraction, unspecified edentulism class Start: 04-18-2022 End: 04-18-2022 Emergency department patient visit Lebron Guevara MD Work Phone: [facility] Comment on above: Abdominal cramping ( Primary Dx); Negative test Start: 04-09-2022 End: 04-09-2022 ambulatory LAURA GONZALEZ Facility:[facility] Start: 02-27-2022 End: 02-27-2022 Emergency department patient visit Josemanuel Ibarra MD Work Phone: [facility] Comment on above: Pain, dental (Primar y Dx) Start: 02-15-2022 End: 02-16-[address] AMBROSE URBANO . Facility:[facility] Start: 02-08-2022 End: 02-08-2022 Emergency department patient visit Josemanuel Ibarra MD Work Phone: [facility] Comment on above: Non-intractable vomi ting with nausea, unspecified vomiting type (Primary Dx) Start: 06-02-2017 End: 06-02-2017 Emergency department patient visit JO LIMA [facility] Procedures Date Procedure Procedure Detail Performing Clinician Start: 09-22-2024 Urnls dip stick/tabl et rgnt non-auto w/o micrscp Jo DENNIS Work Phone: Start: 09-07-2024 Urnls dip stick/tabl et rgnt non-auto w/o micrscp Jo DENNIS Work Phone: Start: 08-31-2024 Urnls dip stick/tabl et rgnt non-auto w/o micrscp Julius Keira DO Work Phone: Start: 08-31-2024 BOX TEST Julius Fazi o DO Work Phone: Start: 08-11-2024 Urnls dip stick/tabl et rgnt non-auto w/o micrscp Jo DENNIS Work Phone: Start: 07-12-2024 Urnls dip stick/tabl et rgnt non-auto w/o micrscp Julius Keira DO Work Phone: Start: 06-28-2024 Urnls dip stick/tabl et rgnt non-auto w/o micrscp Julius Keira DO Work Phone: Start: 06-12-2024 ALL CBC WITH AUTO DIFF Jo DENNIS Work Phone: Start: 05-27-2024 Urnls dip stick/tabl et rgnt non-auto w/o micrscp Jo DENNIS Work Phone: Start: 04-29-2024 URETHRITIS/DISCHARGE PLUS VAGINITIS (HTRX) Jo DENNIS Work Phone: Start: 04-29-2024 AFP, SERUM, OPEN SPI NA BIFIDA Jo DENNIS Work Phone: Start: 04-29-2024 Urnls dip stick/tabl et rgnt non-auto w/o [...] Treatment Date Care Activity Detail Author Start: 09-22-2024 End: 09-22-2024 Patient encounter procedure [facility] Comment on above: Arrived Start: 09-15-2024 End: 09-15-2024 Patient encounter procedure [facility] Comment on above: Arrived Start: 09-07-2024 End: 09-07-2024 Patient encounter procedure [facility] Comment on above: Arrived Start: 08-31-2024 End: 08-31-2025 CULTURE, GROUP B STREP WITH SUSCEPTIBLITY CULTURE, GROUP B STREP WITH SUSCEPTIBLITY Lab Routine Third trimester Expected: 08/31/2024, Expires: 08/31/2025 [facility] Work Phone: Comment on above: Expected: 08/31/2024 , Expires: 08/31/2025 Start: 08-31-2024 Group B Streptococcu s Culture Group B Streptococcus Culture [facility] Start: 08-31-2024 End: 08-31-2024 Patient encounter procedure [facility] Comment on above: Arrived Start: 08-31-2024 Following clinical pathway protocol [facility] Start: 08-11-2024 End: 08-11-2024 Patient encounter procedure 08/11/2024 11:00 AM EST Routine [facility] [address] [place] [id number] Jo Anderson PA [address] [place] [address] Arrived [facility] Comment on above: Arrived Start: 07-28-2024 End: 07-28-2024 Patient encounter procedure [facility] Comment on above: Arrived Start: 07-28-2024 End: 07-28-2024 Professional / ancillary services management 07/28/2024 10:30 AM EST Ancillary Procedure [facility] [address] [place] [id number] [facility] Start: 07-12-2024 End: 07-12-2025 US for US OB SCAN FOR GROWTH Imaging Routine size inconsistent with dates Expected: 07/12/2024 (Approximate), Expires: 07/12/2025 [facility] Work Phone: Comment on above: Expected: 07/12/2024 (Approximate), Expires: 07/12/2025 Start: 07-12-2024 End: 07-12-2024 Patient encounter procedure 07/12/2024 10:50 AM EST Routine [facility] [address] [place] [id number] Jo Anderson PA [address] [place], [place] [id number] [facility] Start: 06-28-2024 End: 06-28-2024 Patient encounter procedure 06/28/2024 10:40 AM EST Routine [facility] [address] [place] [id number] Julius Crockett DO [address] [place], [place] [id number] [facility] Start: 05-27-2024 End: 05-27-2025 CBC panel - Blood by Automated count CBC Lab Routine Diabetes mellitus screening Expected: 05/27/2024 (Approximate), Expires: 05/27/2025 [facility] Work Phone: Comment on above: Expected: 05/27/2024 (Approximate), Expires: 05/27/2025 Start: 05-27-2024 End: 05-27-2025 Measurement of glucose 1 hour after glucose challenge for glucose tolerance test Glucose tolerance, 1 hour Lab Routine Diabetes mellitus screening Expected: 05/27/2024 (Approximate), Expires: 05/27/2025 [facility] Comment on above: Expected: 05/27/2024 (Approximate), Expires: 05/27/2025 Start: 05-27-2024 End: 05-27-2024 Patient encounter procedure [facility] Comment on above: Arrived Start: 05-12-2024 End: 05-12-2024 Professional / ancillary services management 05/12/2024 10:00 AM EDT Ancillary Procedure [facility] [address] [place] [phone] [facility] Start: 04-29-2024 End: 04-29-2025 Alpha fetoprotein, maternal Alpha fetoprotein, maternal Lab Routine 18 weeks gestation of Expected: 04/29/2024 (Approximate), Expires: 04/29/2025 [facility] Comment on above: Expected: 04/29/2024 (Approximate), Expires: 04/29/2025 Start: 04-29-2024 End: 04-29-2025 US for US OB ANATOMY SINGLE W US OB CERVICAL LENGTH Imaging Routine Screening, , for anatomic survey Expected: 04/29/2024 (Approximate), Expires: 04/29/2025 [facility] Comment on above: Expected: 04/29/2024 (Approximate), Expires: 04/29/2025 Start: 04-29-2024 End: 04-29-2024 Patient encounter procedure 04/29/2024 11:20 AM EDT Routine [facility] [address] [place] [phone] Jo Anderson PA [address] [place] [address] Arrived [facility] Comment on above: Arrived Start: 04-25-2024 Influenza vaccination Influenza Vacc ine (#1) [facility] Start: 03-18-2024 DTaP/Tdap/Td vaccine (6 - Td or Tdap) DTaP/Tdap/Td vaccine (6 - Td or Tdap) [facility] Start: 08-12-2022 End: 08-10-2023 hCG, Quantitative, hCG, Quantitative, Lab Routine Abdominal pain during in first trimester Expected: 08/12/2022, Expires: 08/10/2023 [facility] [employer] Work Phone: Comment on above: Expected: 08/12/2022 , Expires: 08/10/2023 Start: 2022 Screening for malign ant neoplasm of cervix Pap smear [facility] Start: 04-25-2022 Influenza vaccination B [facility] Start: 03-25-2022 Influenza vaccination Flu vaccine (# 1) [facility] Start: 2019 Hepatitis C screening Hepatitis C sc reen [facility] Start: 2017 Screening for Chlamy brian trachomatis [facility] Start: 2016 HIV screening HIV screen [facility] Start: 2013 Depression Screen Depression Screen [facility] Start: 2006 COVID-19 Vaccine (1) COVID-19 Vaccin e (1) [facility] Start: 01-06-2002 COVID-19 Vaccine (#1) COVID-19 Vacci ne (#1) [facility] CBC W Auto Different ial panel - Blood CBC and differential Lab Routine Low iron Ordered: 08/11/2024 [facility] Work Phone: Comment on above: Ordered: 08/11/2024 CHLAMYDIA TRACHOMATI S (GENITO/STI) CHLAMYDIA TRACHOMATIS (GENITO/STI) Lab Routine Screen for STD (sexually transmitted disease) Vaginal discharge 18 weeks gestation of Ordered: 04/29/2024 [facility] Comment on above: Ordered: 04/29/2024 Ferritin [Mass/volum e] in Serum or Plasma Ferritin Lab Routine Low iron Ordered: 08/11/2024 [facility] Comment on above: Ordered: 08/11/2024 Neisseria gonorrhoea e DNA [Presence] in Unspecified specimen by CATRINA with probe detection Neisseria gonorrhea DNA probe, direct Lab Routine Screen for STD (sexually transmitted disease) Vaginal discharge 18 weeks gestation of Ordered: 04/29/2024 [facility] Comment on above: Ordered: 04/29/2024 SURESWAB(R) ADVANCED VAGINITIS PLUS, TMA SURESWAB(R) ADVANCED VAGINITIS PLUS, TMA Pathology and Cytology Routine Screen for STD (sexually transmitted disease) Vaginal discharge 18 weeks gestation of Ordered: 04/29/2024 [facility] Work Phone: Comment on above: Ordered: 04/29/2024 End: 08-10-2022 US OB TRANSVAGINAL US OB TRANSVAGINAL Imaging STAT Once for 1 Occurrences starting 08/10/2022 until 08/10/2022 [facility] Work Phone: Comment on above: Once for 1 Occurrenc es starting 08/10/2022 until 08/10/2022 US OB TRANSVAGINAL US OB TRANSVA GINAL Imaging STAT 08/10/2022 1:21 AM EST [facility] Work Phone: Immunizations Immunization Date Immunization Notes Care Provider Robert bravo 07-29-2005 influenza virus vacc ine, unspecified formulation Jo DENNIS Work Phone: [facility] Payers Date Payer Category Payer Medicaid [facility] MEDICAID [place] [id number] 2022-Present [address] [place] [id number] 2022 Medicaid (Managed Care) [employer] [id number] 2001 Unknown [id number] 2.16.840.1.398575.3.579.2. 593 2001 Unknown [id number] 2.16.840.1.482849.3.579.2. 593 2001 Unknown [id number] 2.16.840.1.475522.3.579.2. 593 2001 Unknown [id number] 2.16.840.1.026717.3.579.2. 593 2001 Unknown [id number] 2.16.840.1.274608.3.579.2. 593 2001 Unknown [id number] 2.16.840.1.025438.3.579.2. 593 2001 Unknown [id number] 2.16.840.1.904430.3.579.2. 593 2001 Unknown [id number] 2.16.840.1.884082.3.579.2. 593 2001 Unknown [id number] 2.16.840.1.536731.3.579.2. 593 2001 Unknown [id number] 2.16840.1.705335.3.579.2. 593 2001 Unknown [id number] 2.16.840.1.083892.3.579.2. 727 2001 Unknown [id number] 2.16840.1.881166.3.579.2. 727 2001 Unknown [id number] 2.16840.1.276638.3.579.2. 727 2001 Unknown [id number] 2.16840.1.122626.3.579.2. 727 2001 Unknown [id number] 2.16.840.1.207174.3.579.2. 727 2001 Unknown [id number] 2.16.840.1.667013.3.579.2. 727 2001 Unknown [id number] 2.16.840.1.130929.3.579.2. 727 2001 Unknown [id number] 2.16.840.1.484153.3.579.2. 173 2001 Unknown [id number] 2.16.840.1.227408.3.579.2. 173 2001 Unknown [id number] 2.16.840.1.442887.3.579.2. 174 2001 Unknown [id number] 2.16.840.1.915496.3.579.2. 174 2001 Unknown [id number] 2.16.840.1.938012.3.579.2. 174 2001 Unknown [id number] 2.16.840.1.017919.3.579.2. 727 2001 Unknown [id number] 2.16.840.1.014879.3.579.2. 727 2001 Unknown [id number] 2.16.840.1.453283.3.579.2. 727 2001 Unknown [id number] 2.16.840.1.061938.3.579.2. 727 2001 Unknown [id number] 2.16.840.1.005172.3.579.2. 727 2001 Unknown [id number] 2.16.840.1.637082.3.579.2. 727 2001 Unknown [id number] 2.16.840.1.278037.3.579.2. 727 2001 Unknown [id number] 2.16.840.1.954181.3.579.2. 727 2001 Unknown [id number] 2.16.840.1.457901.3.579.2. 727 2001 Unknown [id number] 2.16.840.1.607999.3.579.2. 727 2001 Unknown [id number] 2.16.840.1.861511.3.579.2. 727 2001 Unknown [id number] 2.16.840.1.271525.3.579.2. 1259 2001 Unknown [id number] 2.16.840.1.011790.3.579.2. 1258 2001 Unknown [id number] 2.16.840.1.448520.3.579.2. 1258 2001 Unknown [id number] 2.16.840.1.120901.3.579.2. 1258 2001 Unknown [id number] 2.16.840.1.943628.3.579.2. 1258 2001 Unknown [id number] 2.16.840.1.837203.3.579.2. 1258 2001 Unknown [id number] 2.16.840.1.977661.3.579.2. 1258 2001 Unknown [id number] 2.16.840.1.748250.3.579.2. 1258 2001 Unknown [id number] 2.16.840.1.752874.3.579.2. 1258 2001 Unknown [id number] 2.16.840.1.534166.3.579.2. 1258 2001 Unknown [id number] 2.16.840.1.359065.3.579.2. 1258 2001 Unknown [id number] 2.16.840.1.876047.3.579.2. 1258 2001 Unknown [id number] 2.16.840.1.403636.3.579.2. 1258 2001 Unknown [id number] 2.16.840.1.470468.3.579.2. 1258 2001 Unknown [id number] 2.16.840.1.721694.3.579.2. 1258 2001 Unknown [id number] 2.16.840.1.075437.3.579.2. 1258 1959 Self-pay 1959 Unknown [id number] 1.2.840.412416.1.13.239.2. 7.3.168387.315 Unknown [id number] 2.16.840.1.463202.3.579.2. 593 Social History Date Type Detail Facility Start: 06-02-2017 End: 03-12-2023 Tobacco smoking status NHIS Never smoked tobacco [facility] Phone: Start: 06-02-2017 End: 03-12-2023 Tobacco use and exposure Smokeless tobacco non-user [facility]: Start: 02-08-2022 End: 09-30-2022 Alcohol intake Current non-drinker of alcohol (finding) [facility]: Start: 02-08-2022 End: 09-30-2022 History SDOH Alcohol Frequency 1 [facility]: Start: 2001 Sex Assigned At Not on file B [facility] Phone: Start: 01-29-2022 End: 09-30-2022 Exposure to SARS-CoV-2 (event) Not sure [facility]: Start: 07-01-2022 End: 09-30-2022 History SDOH Alcohol Std Drinks 0 [facility]: Tobacco Household tobacc o concerns: Yes. [facility] Comment on above: denies Tobacco smoking status No Smokin g Status Entered [facility] Start: 05-28-2023 End: 10-16-2023 Sex Assigned At Female [facility] Start: 07-25-2022 [facility] Phone: Start: 09-08-2023 End: 09-01-2024 Tobacco smoking status Ex-smoker (finding) [facility] Comment on above: hx of smoking quit i n 2021 Denies currently Start: 2001 Sex Assigned At Female [facility] Start: 04-29-2024 End: 09-15-2024 Alcoholic beverage intake Lifetime non-drinker (finding) [facility] Start: 05-28-2023 End: 10-16-2023 History of Social function [facility] Start: 02-19-2024 Gender identity Identifies as female gender (finding) [facility] Start: 02-19-2024 Sexual orientation Heterosexual (fin ding) [facility] Work Phone: Start: 09-02-2024 Sex Female (finding) [facility] Functional Status Date Assessment Result Facility 09-01-2024 Functional Status No [facility] 09-01-2024 Functional Status [facility] 07-25-2024 Functional Status N/A [facility] 04-23-2024 Functional Status N/A [facility] 09-08-2023 Functional Status N/A [facility] 06-05-2023 Functional Status N/A [facility] 11-25-2022 Functional Status N/A [facility] 08-28-2022 Functional Status N/A [facility] 08-26-2022 Functional Status N/A [facility] 07-12-2022 Functional Status Yes [facility] Clinical Notes 07-12-2022 to 09-22-2024 SONNY Velez - 09/22/2024 11:30 AM Claudia Clayton LPN - 09/15/2024 11:20 AM SONNY Vela - 09/07/2024 10:50 AM EST Note Date & Type Note Facility 09-22-2024 History of Present illness Narrative Reason for Appointment: Patient ID: Roque Pierson is a 24 y.o. female who presents for Routine Visit Patient presents today for Return OB appointment. MEDICATIONS Current Outpatient Medications Medication Instructions iron polysaccharides (PROFE) 391.3 mg, Oral, Daily ALLERGIES No Known Allergies PROBLEMS [...] reviewed. Vitals: Estimated body mass index is 27.72 kg/m as calculated from the following: Height as of 01/12/24: 5' 7 . Weight as of this encounter: 177 lb. BP: 120/62 Patient's last menstrual period was 12/22/2023. ASSESSMENT & PLAN ICD-10-CM 1. Third trimester Z34.93 POCT urinalysis dipstick manually resulted 2. 39 weeks gestation of Z3A.39 Return OB: Patient presents today for a routine obstetrics appointment. Patient is currently 39w0d . Patient states she is doing well but has complaints of being tired due to current . Patient has verbalizes frequent movement. labor precautions was discussed/given and patient was instructed to perform kick counts three times a day. Orders Placed This Encounter Procedures POCT urinalysis dipstick manually resulted Follow Up: Patient is to return to office in 1 week for routine OB appointment. Documented by SONNY Velez on behalf of: SONNY Velez documented in this encounter [facility] 09-15-2024 History of Present illness Narrative Reason for Appointment: Patient ID: Roque Pierson is a 24 y.o. female who presents for Routine Visit Patient presents today for Return OB appointment. MEDICATIONS Current Outpatient Medications Medication Instructions iron polysaccharides (PROFE) 391.3 mg, Oral, Daily ALLERGIES No Known Allergies PROBLEMS [...] Exam Constitutional: Appearance: Normal appearance. She is well-developed. Cardiovascular: Rate and Rhythm: Normal rate and regular rhythm. Pulmonary: Effort: Pulmonary effort is normal. Breath sounds: Normal breath sounds. Abdominal: General: Bowel sounds are normal. There is no distension. Palpations: Abdomen is soft. Tenderness: There is no abdominal tenderness. There is no guarding or rebound. Musculoskeletal: General: No swelling. Normal range of motion. Right lower leg: No edema. Left lower leg: No edema. Neurological: Mental Status: She is alert and oriented to person, place, and time. Skin: General: Skin is warm and dry. Psychiatric: Mood and Affect: Mood normal. Behavior: Behavior normal. Vitals and nursing note reviewed. Exam conducted with a cook jelly present. Vitals: Estimated body mass index is 27.78 kg/m as calculated from the following: Height as of 01/12/24: 5' 7 . Weight as of this encounter: 177 lb 6.4 oz. BP: 104/64 Patient's last menstrual period was 12/22/2023. ASSESSMENT & PLAN ICD-10-CM 1. Third trimester Z34.93 2. 38 weeks gestation of Z3A.38 Return OB: Patient presents today for a routine obstetrics appointment. Patient is currently 38w0d . Patient states she is doing well but has complaints of being tired due to current . Patient has verbalizes frequent movement. labor precautions was discussed/given and patient was instructed to perform kick counts three times a day. No orders of the defined types were placed in this encounter. Follow Up: Patient is to return to office in 1 week for routine OB appointment. Documented by Kelley Clayton LPN on behalf of: Julius Crockett DO documented in this encounter [facility] 09-08-2024 Note Microbiology PROCEDURE: Blood Culture Charcoal [R1] SOURCE: Blood BODY SITE: Arm L COLLECTED DATE/TIME: 09/01/2024 01:29 EST RECEIVED DATE/TIME: 09/01/2024 04:12 EST START DATE/TIME: 09/01/2024 04:12 EST FREE TEXT SOURCE: IV start/lt yang Escudero MD, Richard Escudero MD, Richard FINAL REPORTS Final Report [] Verified Date/Time: 09/08/2024 06:00 EST No growth at 7 days. Performing Locations R1: This test was performed at: [facility], [address] [place] [address], [id number] , , [facility] Comment on above: Performed By: #### 1 [id number] #### [facility] [address] [place] [address] 09-08-2024 Note Microbiology PROCEDURE: Blood Culture Charcoal [R1] SOURCE: Blood BODY SITE: Arm R COLLECTED DATE/TIME: 09/01/2024 01:35 EST RECEIVED DATE/TIME: 09/01/2024 04:12 EST START DATE/TIME: 09/01/2024 04:12 EST FREE TEXT SOURCE: rt ac Kota BARONE, Richard Escudero MD, Richard FINAL REPORTS Final Report [] Verified Date/Time: 09/08/2024 06:00 EST No growth at 7 days. Performing Locations R1: [facility] at: [facility], [address] [place] [address], [address] [place] [address], [facility] Comment on above: Performed By: #### 1 [id number] #### [facility] [address] [place] [address] 09-08-2024 Note Microbiology PROCEDURE: Blood Culture Charcoal [R1] SOURCE: Blood BODY SITE: Arm L COLLECTED DATE/TIME: 09/01/2024 01:29 EST RECEIVED DATE/TIME: 09/01/2024 04:12 EST START DATE/TIME: 09/01/2024 04:12 EST FREE TEXT SOURCE: Peripheral vein site #2 Kota BARONE, Richard Escudero MD, Richard FINAL REPORTS Final Report [] Verified Date/Time: 09/08/2024 06:00 EST No growth at 7 days. Performing Locations R1: This test was performed at: [facility], [address] [place] [address], [address] [place] [address], [facility] Comment on above: Performed By: #### 1 [id number] #### [facility] [address] [place] [address] 09-08-2024 Note Microbiology PROCEDURE: Blood Culture Charcoal [R1] SOURCE: Blood BODY SITE: Arm R COLLECTED DATE/TIME: 09/01/2024 01:35 EST RECEIVED DATE/TIME: 09/01/2024 04:12 EST START DATE/TIME: 09/01/2024 04:12 EST FREE TEXT SOURCE: Peripheral vein site #1 Kota BARONE, Richard Escudero MD, Richard FINAL REPORTS Final Report [] Verified Date/Time: 09/08/2024 06:00 EST No growth at 7 days. Performing Locations R1: This test was performed at: [facility], [address] [place] [address], [id number] , [place], [facility] Comment on above: Performed By: #### 1 [id number] #### [facility] [address] [place] [address] 09-07-2024 History of Present illness Narrative Reason for Appointment: Patient ID: Roque Pierson is a 24 y.o. female who presents for Routine Visit Patient presents today for Return OB appointment. MEDICATIONS Current Outpatient Medications Medication Instructions iron polysaccharides (PROFE) 391.3 mg, Oral, Daily magnesium oxide (MAG-OX) 400 mg, Oral, Daily ALLERGIES No Known Allergies PROBLEMS [...] reviewed. Vitals: Estimated body mass index is 27.63 kg/m as calculated from the following: Height as of 01/12/24: 5' 7 . Weight as of 08/31/24: 176 lb 6.4 oz. BP: Patient's last menstrual period was 12/22/2023. ASSESSMENT & PLAN ICD-10-CM 1. Third trimester Z34.93 POCT urinalysis dipstick manually resulted 2. 36 weeks gestation of Z3A.36 Return OB: Patient presents today for a routine obstetrics appointment. Patient is currently 36w6d . Patient states she is doing well but has complaints of being tired due to current . Patient has verbalizes frequent movement. labor precautions was discussed/given and patient was instructed to perform kick counts three times a day. Orders Placed This Encounter Procedures POCT urinalysis dipstick manually resulted Follow Up: Patient is to return to office in 1 week for routine OB appointment. Documented by Naa Alejandro MA on behalf of: SONNY Velez documented in this encounter [facility] 09-02-2024 Evaluation + Plan note Extrac charito from: Title:Discharge Note Author:Trever Miranda DO Date:09/02/24 Stable Discharge To, Anticipated II - Home with responsible caregiver Discharge Diet(s): Regular (09/02/24 11:21:00) Prescriptions Augmentin 875 mg-125 mg Tab, 1 tab(s), Oral, BID promethazine 12.5 mg oral tablet, 12.5 mg= 1 tab(s), Oral, q8hr, PRN Reglan 10 mg Tab, 10 mg= 1 tab(s), Oral, q6hr Zofran ODT 4 mg Tab-Dis, 4 mg= 1 tab(s), Oral, q6hr, PRN Zofran ODT 4 mg Tab-Dis, 4 mg= 1 tab(s), Oral, q6hr Home ProFe 180 mg oral capsule, 180 mg= 1 cap(s), Oral, Daily NEW: 1. Augmentin 875 mg 1 p.o. twice daily for 7 days With When Contact Information Ambrose Urbano [address] [facility] [place] [phone] Business (1) Additional Instructions: Dehydration, Adult Community-Acquired Pneumonia, Adult Extracted from: Title:Admission H & P Author:Camille Thornton MD Date:09/01/24 1. CAP (community acquired p neumonia), (J18.9: Pneumonia, unspecified organism)Pneumonia No hypoxia present. Patient with SIRS, not sepsis. CTA Chest shows KATIUSKA infiltrate Ordered PCT, Sputum cx, Resp Panel, Legionella and Strep Ag. Blood cx pending Continue Rocephin, Zmax. Tylenol for fever. Guaifenesin-dextromethorphan for cough. Maintain O2 sat>95% in 2. Dehydration (E86.0: Dehydration) Labs indicate Na 132, CO2 19. s/p 2 L of fluid in ED. Continue NS at 125 cc/hr. Watch for signs of pulmonary edema. K+ 3.2. Replace orally. 3. woman (Z34.90: Encounter for supervision of normal , unspecified, unspecified trimester) Patient is 36 weeks . Follow[address] w Dr Crockett. Consult OB for any input. Daily FHTs. Patient reports movement and FHTs were heard in the ED. Extracted from: Title:ED Note Author:Richard Escudero MD Date: 5 1. CAP (community acquired p neumonia), (J18.9: Pneumonia, unspecified organism)Pneumonia 2. Dehydration (E86.0: Dehydration) 3. woman (Z34.90: Encounter for supervision of normal , unspecified, unspecified trimester) Orders: acetaminophen, 650 mg = 2 tab(s), Tab, Oral, Once, Stop date 09/01/24 0:50:00 EST, Start date 09/01/24 0:50:00 EST azithromycin + Sodium Chloride 0.9% intravenous solution 250 mL, 500 mg = 1 EA, Injection, IV Piggyback, Once, Stop date 09/01/24 3:12:00 EST, STAT, Start date 09/01/24 3:12:00 EST, 250 mL/hr, Infuse over 60 minute(s) ceftriaxone + Sodium Chloride 0.9% intravenous solution 50 mL, 1,000 mg = 1 EA, IV Piggyback, Once, Stop date 09/01/24 3:11:00 EST, STAT, Start date 09/01/24 3:11:00 EST, 100 mL/hr, Infuse over 30 minute(s), 09/01/24 3:11:00 EST morphine, 4 mg = 1 mL, Injection, IV Push, Once, Stop date 09/01/24 2:20:00 EST, STAT, Start date 09/01/24 2:20:00 EST, 09/01/24 2:20:00 EST ondansetron, 4 mg = 2 mL, Injection, IV Push, Once, Stop date 09/01/24 2:20:00 EST, STAT, Start date 09/01/24 2:20:00 EST, 09/01/24 2:20:00 EST Sodium Chloride 0.9% intravenous solution, 1,000 mL, Soln-IV, IV, Once, Stop date 09/01/24 1:06:00 EST, STAT, Start date 09/01/24 1:06:00 EST, Infuse over 61, minute(s) Sodium Chloride 0.9% intravenous solution, 1,000 mL, Soln-IV, IV, Once, Stop date 09/01/24 2:20:00 EST, STAT, Start date 09/01/24 2:20:00 EST, Infuse over 61, minute(s) B-Type Natriuretic Peptide Basic Metabolic Panel Blood Culture Charcoal Blood Culture Charcoal CBC w/ Auto Diff CTA Chest D-Dimer ECG 12 Lead Adult eGFR Influenza A&B Ag Lactic Acid PT & PTT Saline Lock Insert Straight Cath Troponin 0 Hr. Troponin 1 Hr. UA with Cult Rflx XR Chest 2 Views Diagnostic Tests Pending * Respiratory Panel by PCR 09/01/24 * Legionella Antigen Urine 09/01/24 * Streptococcus pneumoniae Ag, Urine 09/01/24 [facility] 01-09-2025 Hospital Discharge instructions Patient Education 09/02/2024 11:25:19 Dehydration, Adult Dehydration, Adult Dehydration is a condition in which there is not enough water or other fluids in the body. This happens when a person loses more fluids than they take in. Important organs, such as the kidneys, brain, and heart, cannot function without a proper amount of fluids. Any loss of fluids from the body canlead to dehydration. Dehydration can be mild, moderate, or severe. It should be treated right away to prevent it from becoming severe. What are the causes? Dehydration may be caused by: Health conditions, such as diarrhea, vomiting, fever, infection, or sweating or urinating a lot. Not drinking enough fluids. Certain medicines, such as medicines that remove excess fluid from the body (diuretics). Lack of safe drinking water. Not being able to get enough water and food. What increases the risk? The following factors may make you more likely to develop this condition: Having a long-term (chronic) illness that has not been treated properly, such as diabetes, heart disease, or kidney disease. Being 65 years of age or older. Having a disability. Living in a place that is high in altitude, where thinner, package drier air causes more fluid loss. Doing exercises that put stress on your body for a long time (endurance sports). Being active in a hot climate. What are the signs or symptoms? Symptoms of dehydration depend on how severe it is. Mild or moderate dehydration Thirst. Dry lips or dry mouth. Dizziness or light-headedness. Muscle cramps. Dark urine. Urine may be the color of tea. Less urine or tears produced than usual. Headache. Severe dehydration Changes in skin. Your skin may be cold and clammy, blotchy, or pale. Your skin also may not return to normal after being lightly pinched and released. Little or no tears, urine, or sweat. Rapid breathing and low blood pressure. Your pulse may be weak or may be faster than 100 beats per minute when you are sitting still. Other changes, such as: ?Feeling very thirsty. ?Sunken eyes. ?Cold hands and feet. ?Confusion. ?Being very tired (lethargic) or having trouble waking from sleep. ?Short-term weight loss. ?Loss of consciousness. How is this diagnosed? This condition is diagnosed based on your symptoms and a physical exam. You may have blood and urine tests to help confirm the diagnosis. How is this treated? Treatment for this condition depends on how severe it is. Treatment should be started right away. Do not wait until dehydration becomes severe. Severe dehydration is an emergency and needs to be treated in a hospital. Mild or moderate dehydration can be treated at home. You may be asked to: ?Drink more fluids. ?Drink an oral rehydration solution (ORS). This drink restores fluids, salts, and minerals in the blood (electrolytes). ?Stop any activities that caused dehydration, such as exercise. ?Cool off with cool compresses, cool mist, or cool fluids, if heat or too much sweat caused your condition. ?Take medicine to treat fever, if fever caused your condition. ?Take medicine to treat nausea and diarrhea, if vomiting or diarrhea caused your condition. Severe dehydration can be treated: ?With IV fluids. ?By correcting abnormal levels of electrolytes in your body. ?By treating the underlying cause of dehydration. Follow these instructions at home: Oral rehydration solution If told by your health care provider, drink an ORS: Make an ORS by following instructions on the package. Start by drinking small amounts, about cup (120 mL) every 5 10 minutes. Slowly increase how much you drink until you have taken the amount recommended by your health care provider. Eating and drinking Drink enough clear fluid to keep your urine pale yellow. If you were told to drink an ORS, finish the ORS first and then start slowly drinking other clear fluids. Drink fluids such as: ?Water. Do not drink only water. Doing that can lead to hyponatremia, which is having too little salt (sodium) in the body. ?Water from ice chips you suck on. ?Diluted fruit juice. This is fruit juice that you have added water to. ?Low-calorie sports drinks. Eat foods that contain a healthy balance of electrolytes, such as bananas, oranges, potatoes, tomatoes, and spinach. Do not drink alcohol. Avoid the following: ?Drinks that contain a lot of sugar. These include high-calorie sports drinks, fruit juice that is not diluted, and soda. ?Caffeine. ?Foods that are greasy or contain a lot of fat or sugar. General instructions Take apln-bdf-akvtvlh and prescription medicines only as told by your health care provider. Do not take sodium tablets. Doing that can lead to having too much sodium in the body (hypernatremia). Return to your normal activities as told by your health care provider. Ask your health care provider what activities are safe for you. Keep all follow-up visits. Your health care provider may need to check your progress and suggest new ways to treat your condition. Contact a health care provider if: You have muscle cramps, pain, or discomfort, such as: ?Pain in your abdomen and the pain gets worse or stays in one area. ?Stiff neck. You have a rash. You are more irritable than usual. You are sleepier or have a harder time waking. You feel weak or dizzy. You feel very thirsty. Get help right away if: You have symptoms of severe dehydration. You vomit every time you eat or drink. Your vomiting gets worse, does not go away, or includes blood or green matter (bile). You are getting treatment but symptoms are getting worse. You have a fever. You have a severe headache. You have: ?Diarrhea that gets worse or does not go away. ?Blood in your stool. This may cause stool to look black and tarry. ?Not urinating, or urinating only a small amount of very dark urine, within 6 8 hours. You have trouble breathing. These symptoms may be an emergency. Get help right away. Do not wait to see if the symptoms will go away. Do not drive yourself to the hospital. Call 911. This information is not intended to replace advice given to you by your health care provider. Make sure you discuss any questions you have with your health care provider. Document Revised: 03/10/2023 Document Reviewed: 03/10/2023 [employer] Patient Education 2023 Factor 14. 09/02/2024 11:25:15 Community-Acquired Pneumonia, Adult Community-Acquired Pneumonia, Adult Pneumonia is a lung infection that causes inflammation and the buildup of mucus and fluids in the lungs. This may cause coughing and difficulty breathing. Community-acquired pneumonia is pneumonia that develops in people who are not, and have not recently been, in a hospital or other health care facility. Usually, pneumonia develops as a result of an illness that is caused by a virus, such as the commoncold and the flu (influenza). It can also be caused by bacteria or fungi. While the common cold andinfluenza can pass from person to person (are contagious), pneumonia itself is not considered contagious. What are the causes? This condition may be caused by: Viruses. Bacteria. Fungi. What increases the risk? The following factors may make you more likely to develop this condition: Being over age 65 or having certain medical conditions, such as: ?A long-term (chronic) disease, such as: chronic obstructive pulmonary disease (COPD), asthma, heart failure, diabetes, or kidney disease. ?A condition that increases the risk of breathing in (aspirating) mucus and other fluids from your mouth and nose. ?A weakened body defense system (immune system). Having had your spleen removed (splenectomy). The spleen is the organ that helps fight germs and infections. Not cleaning your teeth and gums well (poor dental hygiene). Using tobacco products. Traveling to places where germs that cause pneumonia are present or being near certain animals or animal habitats that could have germs that cause pneumonia. What are the signs or symptoms? Symptoms of this condition include: A dry cough or a wet (productive) cough. A fever, sweating, or chills. Chest pain, especially when breathing deeply or coughing. Fast breathing, difficulty breathing, or shortness of breath. Tiredness (fatigue) and muscle aches. How is this diagnosed? This condition may be diagnosed based on your medical history or a physical exam. You may also havetests, including: Imaging, such as a chest X-ray or lung ultrasound. Tests of: ?The level of oxygen and other gases in your blood. ?Mucus from your lungs (sputum). ?Fluid around your lungs (pleural fluid). ?Your urine. How is this treated? Treatment for this condition depends on many factors, such as the cause of your pneumonia, your medicines, and other medical conditions that you have. For most adults, pneumonia may be treated at home. In some cases, treatment must happen in a hospital and may include: Medicines that are given by mouth (orally) or through an IV, including: ?Antibiotic medicines, if bacteria caused the pneumonia. ?Medicines that kill viruses (antiviral medicines), if a virus caused the pneumonia. Oxygen therapy. Severe pneumonia, although rare, may require the following treatments: Mechanical ventilation.This procedure uses a machine to help you breathe if you cannot breathe wellon your own or maintain a safe level of blood oxygen. Thoracentesis. This procedure removes any buildup of pleural fluid to help with breathing. Follow these instructions at home: Medicines Take [id number]-wfaldnx and prescription medicines only as told by your health care provider. Take cough medicine only if you have trouble sleeping. Cough medicine can prevent your body from removing mucus from your lungs. If you were prescribed antibiotics, take them as told by your health care provider. Do not stop taking the antibiotic even if you start to feel better. Lifestyle Do not drink alcohol. Do not use any products that contain nicotine or tobacco. These products include cigarettes, chewing tobacco, and vaping devices, such as e-cigarettes. If you need help quitting, ask your health careprovider. Eat a healthy diet. This includes plenty of vegetables, fruits, whole grains, low-fat dairy products, and lean protein. General instructions Rest a lot and get at least 8 hours of sleep each night. Sleep in a partly upright position at night. Place a few pillows under your head or sleep in a reclining chair. Return to your normal activities as told by your health care provider. Ask your health care provider what activities are safe for you. Drink enough fluid to keep your urine pale yellow. This helps to thin the mucus in your lungs. If your throat is sore, gargle with a mixture of salt and water 3 4 times a day or as needed. To make salt water, completely dissolve 1 tsp (3 6 g) of salt in 1 cup (237 mL) of warm water. Keep all follow-up visits. How is this prevented? You can lower your risk of developing community-acquired pneumonia by: Getting the pneumonia vaccine. There are different types and schedules of pneumonia vaccines. Ask your health care provider which option is best for you. Consider getting the pneumonia vaccine if: ?You are older than 65 years of age. ?You are 19 65 years of age and are receiving cancer treatment, have chronic lung disease, or have other medical conditions that affect your immune system. Ask your health care provider if this applies to you. Getting your influenza vaccine every year. Ask your health care provider which type of vaccine is best for you. Getting regular dental checkups. Washing your hands often with soap and water for at least 20 seconds. If soap and water are not available, use hand tub washer. Contact a health care provider if: You have a fever. You have trouble sleeping because you cannot control your cough with cough medicine. Get help right away if: Your shortness of breath becomes worse. Your chest pain increases. Your sickness becomes worse, especially if you are an older adult or have a weak immune system. You cough up blood. These symptoms may be an emergency. Get help right away. Call 911. Do not wait to see if the symptoms will go away. Do not drive yourself to the hospital. Summary Pneumonia is an infection of the lungs. Community-acquired pneumonia develops in people who have not been in the hospital. It can be causedby bacteria, viruses, or fungi. This condition may be treated with antibiotics or antiviral medicines. Severe pneumonia may require a hospital stay and treatment to help with breathing. This information is not intended to replace advice given to you by your health care provider. Make sure you discuss any questions you have with your health care provider. Document Revised: 10/09/2022 Document Reviewed: 10/09/2022 [employer] Patient Education 2023 [employer] Follow Up Care 09/01/2024 00:20:46 With:Per patient request would like to make own hospital follow up appoinment(s). Address:Unknown When: Unknown With:Ambrose Urbano Address: [address] [place], [place] [id number] Business (1) When: Unknown [facility] 01-09-2025 NoteDischarge Summary Admission and Discharge Information Admit Date/Time:09/01/2024 03:56 Admitting Physician - Camille Thornton MD Consulting Physician - Anne Villagran DO Admitting Diagnoses: Pneumonia, 09/01/2024 Discharge Order Date Discharge Patient - Ordered -- 09/02/24 11:23:00 EST, to home Discharge Diagnoses 1. CAP (community acquired pneumonia), Pneumonia 2. Dehydration, 09/01/2024 3. woman, 09/01/2024 Cough, 09/01/2024 Headache, 09/01/2024 Shortness of breath, 09/01/2024 Procedure History None. Hospital Course Significant Findings Please refer to history and physical for details of admission. Patient presented to the emergency room yesterday September 01 because of fever, shortness of breath, productive cough and left-sided chest pain. Symptoms started on August 31 with a temperature as highas 101. She did see her OB in the morning (she is 36 weeks ) and did not feel that bad. Shegot worse after the appointment. Her 1-year-old at home has pneumonia and her is starting to get sick as well. No other complaints. In the emergency room patient was tachycardic at 155 beats a minute with a temperature of 37.4. Shehad a 16,000 white count and potassium was 3.2. She was given 2 L of IV fluids with improvement of her heart rate into the 120s. Chest x-ray showed a left-sided infiltrate. D-dimer was done and it was elevated so I did a CTA of the chest that showed no PE but confirmed the left upper lobe pneumonia. She was started on Rocephin and azithromycin and admitted to the medical service. ER did reach outto her OB Dr. Crockett who thought that this was more of a medical issue and not OB. On the medical service patient was admitted for community-acquired pneumonia involving her left upper lobe. She was maintained on ceftriaxone and azithromycin which was switched to p.o. She was givensupplemental O2 with the goal to keep her sats greater than 95% as she is . Blood culture x2 is no growth to date and sputum cultures no growth to date. She is negative for influenza A, influenza B and COVID-19. We did order Legionella antigen and strep antigen both of which are pending. This morning September 02 she is doing better on room air. Her white count is down to 12.7. Clinically she feels good and she wants to go home. I will put her on a 7-day course of Augmentin and she can fol low-up with her PCP. NOTE - patient had a quicker than expected improvement in her symptomatology in this 1 day inpatient stay NOTE - it took 28 minutes to evaluate and coordinate patient for discharge Procedures and Treatment Provided 1. CT of the chest 09/01/2024 2. RACETRACK STEWARD consult Services Consulted Consult to Counseling Services Manager - Ordered -- 09/01/24 3:55:00 EST, 37 weeks w pneumonia, OB consult, Consult and Co-manage Club Lounge Attendant Consult - Completed -- 09/01/24 5:29:57 EST Physical Exam Vitals & Measurements T: 36.5 ???C(Oral) TMIN: 36.3 ???C(Oral) TMAX: 36.6 ???C(Oral) HR: 60(Monitored) RR: 16 BP: 99/64 SpO2: 97% WT: 81.4 kg Constitutional: Awake and alert; oriented x 3 with no apparent distress or respiratory distress Head/neck: Neck supple with no palpable lymphadenopathy, bruits or masses; trachea midline Chest/lungs: Diminished with faint rhonchi but no active wheezes Cardiovascular: Regular rate and rhythm; normal S1-S2 with no murmur; no pitting edema and 2+ pulses bilaterally Gastrointestinal: Soft, nontender, nondistended, positive bowel sounds Neurological: Nonfocal; cranial nerves II through XII appear intact Psychological: Pleasant affect Tests Performed Respiratory Panel by PCR -- Results Pending -- Streptococcus pneumoniae Ag, Urine -- Results Pending -- Urine Legionella Antigen -- Results Pending -- Chest AP/Lat CTA Chest Please visit your patient portal for your results or contact your primary care physician. Discharge Plan Patient Discharge Condition Stable Discharge Disposition Discharge To, Anticipated II - Home with responsible caregiver Discharge Diet Discharge Diet(s): Regular (09/02/24 11:21:00) Discharge Medication List Prescriptions Augmentin 875 mg-125 mg Tab, 1 tab(s), Oral, BID promethazine 12.5 mg oral tablet, 12.5 mg= 1 tab(s), Oral, q8hr, PRN Reglan 10 mg Tab, 10 mg= 1 tab(s), Oral, q6hr Zofran ODT 4 mg Tab-Dis, 4 mg= 1 tab(s), Oral, q6hr, PRN Zofran ODT 4 mg Tab-Dis, 4 mg= 1 tab(s), Oral, q6hr Home ProFe 180 mg oral capsule, 180 mg= 1 cap(s), Oral, Daily NEW: 1. Augmentin 875 mg 1 p.o. twice daily for 7 days Follow-up With When Contact Information Ambrose Urbano [address] [facility] [place] [address]- Business (1) Additional Instructions: Patient Education Dehydration, Adult Community-Acquired Pneumonia, [facility]Comment on [facility]: Result Comment: Electronically Signed By: Trever Miranda DO.br\Date and Time Signed: 09/02/24 11:41 [id number] NoteProgress Note-Physician Day 1 IV azithromycin and ceftriaxone Patient seen and examined earlier today Still having cough and congestion and still short of breath No other complaints Constitutional: Awake and alert; oriented x 3 with no respiratory distress; mildly ill-appearing Head/neck: Neck supple with no palpable lymphadenopathy, bruits or masses; trachea midline Chest/lungs: Diminished with scattered rhonchi but no active wheezes Cardiovascular: Regular rate and rhythm; normal S1-S2 with no murmur; no pitting edema and 2+ pulses bilaterally Gastrointestinal: Soft, nontender, nondistended, positive bowel sounds Neurological: Nonfocal; cranial nerves II through XII appear intact Psychological: Pleasant affect 24-year-old female with no significant medical history admitted for left upper lobe pneumonia and dehydration. She is 36 weeks . A/P: 1. Community-acquired pneumonia Left lower lobe infiltrate on CTA of the chest Sputum culture respiratory panel and Legionella and strep antigen pending; blood cultures pending Continue ceftriaxone and p.o. azithromycin Antipyretics as needed and antitussive as needed Continue supplemental O2 and keep sats greater than 95% in 2. Dehydration She did get IV fluids Will check labs in a.m. 3. 36 weeks OB consulted Daily heart tonesUc HealthComment on above:Result Comment: Electronically Signed By: Trever Miranda DO.br\Date and Time Signed: 09/01/24 14:29 [id number] NoteHistory and Physical Basic Information Admit Date/Time:09/01/2024 03:56 Chief Complaint Nausea, lightheadedness, fever, and headache for past few hours. 36 weeks . Cough today. History of Present Illness 24-year-old female who is 36 weeks who presented to the emergency room with fever, shortness of breath, productive cough and left-sided chest pain. Symptoms started yesterday. Fever as high as 101. She did see her OB in the AM and didn't feel that bad. Reports she was 1-2cm in the office yesterday. Things escalated pretty quickly over the past 24 hours. Her 1yo at home has pneumonia, andhusband is starting to get sick as well. Patient is feeling normal movement. She denies any contractions of leakage of fluid. FHTs documented in ED. She is a . She denies any problems w this . ED Course: Patient initially tachycardic at 155. Temp 37.4. Labs revealed WBC 16K with mild hyponatremia and hypokalemia (3.2). She was given 2L of IVF in the ED with improvement of heart rate to 120s. Chest x-ray did show a left sided infiltrate. Due to the tachycardia D-dimer was done which was elevated. CTA of the chest showed no PE but did confirm a KATIUSKA pneumonia. Patient was started on Rocephin and Zithromax. ED physician stated he contacted her OB Dr. Crockett who felt this was a medical issue and the patient did not need to be admitted to OB. Review of Systems Constitutional: n+fever, no chills, no sweats, + weakness Skin: no jaundice, no rash, no lesions, no petechiae ENMT: no ear pain, no sore throat, + congestion, no hoarseness Respiratory: + shortness of breath, + cough, no orthopnea, no wheezing Cardiovascular: + chest pain, no palpitations, no edema Gastrointestinal: no nausea, no vomiting, no diarrhea, no abdominal pain Genitourinary: no dysuria, no hematuria Musculoskeletal: no trauma, no joint or muscle pain Neurologic: + headache, + dizziness Psychiatric: no depression, no anxiety Heme/Lymph: no bleeding tendency, no bruising tendency Additional ROS info: Except as noted in the above Review of Systems and in the History of Present Illness all other systems have been reviewed and are negative or noncontributory. Scoring Londono Fall Risk Score: 20 (09/01/24) Physical Exam Vitals & Measurements T: 36.9 ???C(Oral) TMIN: 36.9 ???C(Oral) TMAX: 37.4 ???C(Oral) HR: 63(Peripheral) RR: 18 BP: 100/62SpO2: 96% HT: 172.72 cm WT: 80.1 kg General: toxic appearing, look ill, mucous membranes including lips very dry Skin: warm, dry, no rash Head: AT/NC Neck: Trachea midline, supple Eye: normal conjunctiva, sclera clear Cardiovascular: tachy S1S2, normal peripheral perfusion Respiratory: Lungs diminished on the left with scattered rales, no wheezing, respirations labored Chest wall: no deformity, no TTP Gastrointestinal: gravid, NT Extremities: no deformity, trace BLE edema Neurological: alert oriented, no focal deficits, normal speech Psychiatric: cooperative, calm Lab Results WBC: 16 E9/L High (09/01/24 00:53:00) RBC: 3.9 E12/L Low (09/01/24 00:53:00) HGB: 10.2 gm/dL Low (09/01/24 00:53:00) Hct: 30.7 % Low (09/01/24 00:53:00) MCV: 78.4 fL Low (09/01/24 00:53:00) MCH: 26 pg Low (09/01/24 00:53:00) MCHC: 33.2 gm/dL (09/01/24 00:53:00) RDW: 13.8 % (09/01/24 00:53:00) Platelet: 228 E9/L (09/01/24 00:53:00) MPV: 8 fL (09/01/24 00:53:00) Neutro Auto: 91.7 % High (09/01/24 00:53:00) Lymph Auto: 3.9 % Low (09/01/24 00:53:00) Hubbard Auto: 3.9 % Low (09/01/24 00:53:00) Eos Auto: 0.1 % (09/01/24 00:53:00) Basophil Auto: 0.4 % (09/01/24 00:53:00) Neutro Absolute: 14.6 E9/L High (09/01/24 00:53:00) Lymph Absolute: 0.6 E9/L Low (09/01/24 00:53:00) Hubbard Absolute: 0.6 E9/L (09/01/24 00:53:00) Eos Absolute: 0 E9/L (09/01/24 00:53:00) Basophil Absolute: 0.1 E9/L (09/01/24 00:53:00) PT: 11.4 second(s) (09/01/24 01:29:00) INR: 1.02 (09/01/24 01:29:00) PTT: 28.8 second(s) (09/01/24 01:29:00) D-Dimer: 5210 ng/mL FEU Critical (09/01/24 01:29:00) Glucose Lvl: 108 mg/dL (09/01/24 00:53:00) BUN: 5 mg/dL (09/01/24 00:53:00) Creatinine: 0.6 mg/dL (09/01/24 00:53:00) eGFR: 129 mL/min/1.73 m2 (09/01/24 00:53:00) BUN/Creat Ratio: 8 Low (09/01/24 00:53:00) Sodium Lvl: 132 mmol/L Low (09/01/24 00:53:00) Potassium Lvl: 3.2 mmol/L Low (09/01/24 00:53:00) Chloride: 102 mmol/L (09/01/24 00:53:00) CO2: 19 mmol/L Low (09/01/24 00:53:00) AGAP: 14 mEq/L (09/01/24 00:53:00) Calcium Lvl: 8.5 mg/dL Low (09/01/24 00:53:00) Lactic Acid Lvl: 1.1 mmol/L (09/01/24 03:37:00) Troponin HS: 5.8 pg/mL Low (09/01/24 02:20:00) BNP: 36 pg/mL (09/01/24 01:29:00) UA Spec Desc: Clean Catch (09/01/24 01:29:00) UA Color: Yellow (09/01/24:29:00) UA Clarity: Clear (09/01/24 01:29:00) UA Spec Grav: 1.022 (09/01/24 01:29:00) UA pH: 6.0 (09/01/24 01:29:00) UA Protein: Trace Abnormal (09/01/24 01:29:00) UA Glucose: Negat (09/01/24 01:29:00) UA Ketones: 3+ Abnormal (09/01/24 01:29:00) UA Bili: Negat (more content not included)...[facility] HealthComment on above:Result Comment: Electronically Signed By: Norberto BARONE, Camille\.basil\Date and Time Signed: 09/01/24 05:19 [id number] History of Present illness Narrative* Kelley Clayton, INVENTORY CONTROL ANALYST - 08/31/2024 11:00 AM EST Reason for Appointment: Patient ID: Roque Pierson is a 24 y.o. female who presents for No chief complaint on file. Patient presents today for Return OB appointment. MEDICATIONS Current Outpatient Medications Medication Instructions iron polysaccharides (PROFE) 391.3 mg, Oral, Daily magnesium oxide (MAG-OX) 400 mg, Oral, Daily ALLERGIES No Known Allergies PROBLEMS [...] Exam Constitutional: Appearance: Normal appearance. She is well-developed. Genitourinary: Vulva normal. Cardiovascular: Rate and Rhythm: Normal rate and regular rhythm. Pulmonary: Effort: Pulmonary effort is normal. Breath sounds: Normal breath sounds. Abdominal: General: Bowel sounds are normal. There is no distension. Palpations: Abdomen is soft. Tenderness: There is no abdominal tenderness. There is no guarding or rebound. Musculoskeletal: General: No swelling. Normal range of motion. Right lower leg: No edema. Left lower leg: No edema. Neurological: Mental Status: She is alert and oriented to person, place, and time. Skin: General: Skin is warm and dry. Psychiatric: Mood and Affect: Mood normal. Behavior: Behavior normal. Vitals and nursing note reviewed. Exam conducted with a cook jelly present. Vitals: Estimated body mass index is 27.63 kg/m as calculated from the following: Height as of 01/12/24: 5' 7 . Weight as of this encounter: 176 lb 6.4 oz. BP: 110/64 Patient's last menstrual period was 12/22/2023. ASSESSMENT & PLAN ICD-10-CM 1. Third trimester Z34.93 POCT urinalysis dipstick manually resulted CULTURE, GROUP B STREP WITH SUSCEPTIBLITY CULTURE, GROUP B STREP WITH SUSCEPTIBLITY 2. 35 weeks gestation of Z3A.35 iron polysaccharides (ProFe) 391.3 (180 Fe) MG capsule Patient is doing well but has complaints of being tired and having maternal discomfort due to . Patient verbalized frequent movement and was instructed to perform kick counts three times per day. labor precautions were given, LARC consent was signed/declined, and GBS was obtained. Cervical check was performed and patient is 1cm dilated. Orders Placed This Encounter Procedures CULTURE, GROUP B STREP WITH SUSCEPTIBLITY POCT urinalysis dipstick manually resulted Follow Up: Patient is to return to office in 1 week for routine OB appointment Documented by Kelley Clayton LPN on behalf of: Julius Crockett DO documented in this encounterKansas City VA Medical [id number] History of Present illness Narrative* SONNY Velez - 08/11/2024 11:00 AM EST Reason for Appointment: Patient ID: Roque Pierson is a 24 y.o. female who presents for Routine Visit Patient presents today for Return OB appointment. MEDICATIONS Current Outpatient Medications Medication Instructions iron polysaccharides (PROFE) 391.3 mg, Oral, Daily magnesium oxide (MAG-OX) 400 mg, Oral, Daily ALLERGIES No Known Allergies PROBLEMS [...] reviewed. Vitals: Estimated body mass index is 27.69 kg/m as calculated from the following: Height as of 01/12/24: 5' 7 . Weight as of 07/28/24: 176 lb 12.8 oz. BP: Patient's last menstrual period was 12/22/2023. ASSESSMENT & PLAN ICD-10-CM 1. Low iron E61.1 CBC and differential 2. Third trimester Z34.93 POCT urinalysis dipstick manually resulted 3. 33 weeks gestation of Z3A.33 4. 26 weeks gestation of Z3A.26 iron polysaccharides (ProFe) 391.3 (180 Fe) MG capsule magnesium oxide (Mag-Ox) 400 MG tablet Return OB: Patient presents today for a routine obstetrics appointment. Patient is currently 33w0d . Patient states she is doing well but has complaints of being tired due to current , lightingcrotch and some light headedness. Patient has verbalizes frequent movement. labor precautions was discussed/given and patient was instructed to perform kick counts three times a day. Orders Placed This Encounter Procedures CBC and differential POCT urinalysis dipstick manually resulted Pt was given CBC order to have done due to low iron level results on 06/12/2024. Refilled her pro fe vitamin to continue taking. Follow Up: Patient is to return to office in 2 week for routine OB appointment. Documented by Naa Alejandro MA on behalf of: SONNY Velez documented in this encounterKansas City VA Medical [id number] History of Present illness Narrative* SONNY Velez - 07/28/2024 11:20 AM EST Reason for Appointment: Patient ID: Roque Pierson is a 24 y.o. female who presents for Routine Visit Patient presents today for Return OB appointment. MEDICATIONS Current Outpatient Medications Medication Instructions iron polysaccharides (PROFE) 391.3 mg, Oral, Daily magnesium oxide (MAG-OX) 400 mg, Oral, Daily ALLERGIES No Known Allergies PROBLEMS [...] reviewed. Vitals: Estimated body mass index is 27.69 kg/m as calculated from the following: Height as of 01/12/24: 5' 7 . Weight as of this encounter: 176 lb 12.8 oz. BP: 108/62 Patient's last menstrual period was 12/22/2023. ASSESSMENT & PLAN ICD-10-CM 1. Third trimester Z34.93 2. 30 weeks gestation of Z3A.30 Return OB: Patient presents today for a routine obstetrics appointment. Patient is currently 31w0d . Patient states she is doing well but has complaints of being tired due to current . Patient has verbalizes frequent movement. labor precautions was discussed/given and patient was instructed to perform kick counts three times a day. No orders of the defined types were placed in this encounter. Follow Up: Patient is to return to office in 2 week for routine OB appointment. Documented by SONNY Velez on behalf of: Julius Crockett DO documented in this encounterKansas City [facility] [id number] Hospital Discharge instructions Patient Education 07/25/2024 23:52:04 Urinary Tract Infection, Adult, Dwnf-jv-Nrsg Urinary Tract Infection, Adult A urinary tract infection (UTI) is an infection of any part of the urinary tract. The urinary tractincludes: The kidneys. The ureters. The bladder. The urethra. These organs make, store, and get rid of pee (urine) in the body. What are the causes? This infection is caused by germs (bacteria) in your genital area. These germs grow and cause swelling (inflammation) of your urinary tract. What increases the risk? The following factors may make you more likely to develop this condition: Using a small, thin tube (catheter) to drain pee. Not being able to control when you pee or poop (incontinence). Being female. If you are female, these things can increase the risk: ?Using these methods to prevent : ?A medicine that kills sperm (spermicide). ?A device that blocks sperm (diaphragm). ?Having low levels of a female hormone (estrogen). ?Being . You are more likely to develop this condition if: You have genes that add to your risk. You are sexually active. You take antibiotic medicines. You have trouble peeing because of: ?A prostate that is bigger than normal, if you are male. ?A blockage in the part of your body that drains pee from the bladder. ?A kidney stone. ?A nerve condition that affects your bladder. ?Not getting enough to drink. ?Not peeing often enough. You have other conditions, such as: ?Diabetes. ?A weak disease-fighting system (immune system). ?Sickle cell disease. ?Gout. ?Injury of the spine. What are the signs or symptoms? Symptoms of this condition include: Needing to pee right away. Peeing small amounts often. Pain or burning when peeing. Blood in the pee. Pee that smells bad or not like normal. Trouble peeing. Pee that is cloudy. Fluid coming from the vagina, if you are female. Pain in the belly or lower back. Other symptoms include: Vomiting. Not feeling hungry. Feeling mixed up (confused). This may be the first symptom in older adults. Being tired and grouchy (irritable). A fever. Watery poop (diarrhea). How is this treated? Taking antibiotic medicine. Taking other medicines. Drinking enough water. In some cases, you may need to see a specialist. Follow these instructions at home: Medicines Take ycfe-sxt-nhkbmbd and prescription medicines only as told by your doctor. If you were prescribed an antibiotic medicine, take it as told by your doctor. Do not stop taking it even if you start to feel better. General instructions Make sure you: ?Pee until your bladder is empty. ?Do not hold pee for a long time. ?Empty your bladder after sex. ?Wipe from front to back after peeing or pooping if you are a female. Use each tissue one time whenyou wipe. Drink enough fluid to keep your pee pale yellow. Keep all follow-up visits. Contact a doctor if: You do not get better after 1 2 days. Your symptoms go away and then come back. Get help right away if: You have very bad back pain. You have very bad pain in your lower belly. You have a fever. You have chills. You feeling like you will vomit or you vomit. Summary A urinary tract infection (UTI) is an infection of any part of the urinary tract. This condition is caused by germs in your genital area. There are many risk factors for a UTI. Treatment includes antibiotic medicines. Drink enough fluid to keep your pee pale yellow. This information is not intended to replace advice given to you by your health care provider. Make sure you discuss any questions you have with your health care provider. Document Revised: 03/18/2021 Document Reviewed: 03/23/2021 [employer] Patient Education 2023 [employer]. 07/25/2024 23:52:04 Nausea and Vomiting, Adult, Ekwl-lw-Yxmt Nausea and Vomiting, Adult Nausea is feeling that you have an upset stomach and that you are about to vomit. Vomiting is when food in your stomach forcefully comes out of your mouth. Vomiting can make you feel weak. If you vomit, or if you are not able to drink enough fluids, you may not have enough water in your body (get dehydrated). If you do not have enough water in your body, you may: Feel tired. Feel thirsty. Have a dry mouth. Have cracked lips. Pee (urinate) less often. Older adults and people with other diseases or a weak body defense system (immune system) are at higher risk for not having enough water in the body. If you feel like you may vomit or you vomit, it is important to follow instructions from your doctor about how to take care of yourself. Follow these instructions at home: Watch your symptoms for any changes. Tell your doctor about them. Eating and drinking Take an ORS (oral rehydration solution). This is a drink that is sold at pharmacies and stores. Drink clear fluids in small amounts as you are able, such as: ?Water. ?Ice chips. ?Fruit juice that has water added (diluted fruit juice). ?Low-calorie sports drinks. Eat bland, rbdn-kz-myyvpm foods in small amounts as you are able, such as: ?Bananas. ?Applesauce. ?Rice. ?Low-fat (lean) meats. ?[place]. ?Crackers. Avoid drinking fluids that have a lot of sugar or caffeine in them. This includes energy drinks, sports drinks, and soda. Avoid alcohol. Avoid spicy or fatty foods. General instructions Take wrob-bfu-quststu and prescription medicines only as told by your doctor. Drink enough fluid to keep your pee (urine) pale yellow. Wash your hands often with soap and water for at least 20 seconds. If you cannot use soap and water, use hand tub washer. Make sure that everyone in your home washes their hands well and often. Rest at home until you feel better. Watch your condition for any changes. Take slow and deep breaths when you feel like you may vomit. Keep all follow-up visits. Contact a doctor if: Your symptoms get worse. You have new symptoms. You have a fever. You cannot drink fluids without vomiting. You feel like you may vomit for more than 2 days. You feel light-headed or dizzy. You have a headache. You have muscle cramps. You have a rash. You have pain while peeing. Get help right away if: You have pain in your chest, neck, arm, or jaw. You feel very weak or you faint. You vomit again and again. You have vomit that is bright red or looks like black coffee grounds. You have bloody or black poop (stools) or poop that looks like tar. You have a very bad headache, a stiff neck, or both. You have very bad pain, cramping, or bloating in your belly (abdomen). You have trouble breathing. You are breathing very quickly. Your heart is beating very quickly. Your skin feels cold and clammy. You feel confused. You have signs of losing too much water in your body, such as: ?Dark pee, very little pee, or no pee. ?Cracked lips. ?Dry mouth. ?Sunken eyes. ?Sleepiness. ?Weakness. These symptoms may be an emergency. Get help right away. Call 911. Do not wait to see if the symptoms will go away. Do not drive yourself to the hospital. Summary Nausea is feeling that you have an upset stomach and that you are about to vomit. Vomiting is when food in your stomach comes out of your mouth. Follow instructions from your doctor about eating and drinking. Take sgws-gcc-icvagtt and prescription medicines only as told by your doctor. Contact your doctor if your symptoms get worse or you have new symptoms. Keep all follow-up visits. This information is not intended to replace advice given to you by your health care provider. Make sure you discuss any questions you have with your health care provider. Document Revised: 02/15/2022 Document Reviewed: 02/15/2022 [employer] Patient Education 2023 Factor 14. 07/25/2024 23:52:04 General Headache Without Cause, Ohbe-to-Rkdm General Headache Without Cause A headache is pain or discomfort you feel around the head or neck area. There are many causes and types of headaches. In some cases, the cause may not be found. Follow these instructions at home: Watch your condition for any changes. Let your doctor know about them. Take these steps to help with your condition: Managing pain Take ipjc-vse-fgtfxcc and prescription medicines only as told by your doctor. This includes medicines for pain that are taken by mouth or put on the skin. Lie down in a dark, quiet room when you have a headache. If told, put ice on your head and neck area: ?Put ice in a plastic bag. ?Place a towel between your skin and the bag. ?Leave the ice on for 20 minutes, 2 3 times per day. ?Take off the ice if your skin turns bright red. This is very important. If you cannot feel pain, heat, or cold, you have a greater risk of damage to the area. If told, put heat on the affected area. Use the heat source that your doctor recommends, such as a moist heat pack or a heating pad. ? Place a towel between your skin and the heat source. ?Leave the heat on for 20 30 minutes. ?Take off the heat if your skin turns bright red. This is very important. If you cannot feel pain, heat, or cold, you have a greater risk of getting burned. Keep lights dim if bright lights bother you or make your headaches worse. Eating and drinking Eat meals on a [...] liquor (44 mL). Stop drinking caffeine, or drink less caffeine. General instructions Keep a journal to find out if certain things bring on headaches. For example, write down: ?What you eat and drink. ?How much sleep you get. ?Any change to your diet or medicines. Get a massage or try other ways to relax. Limit stress. Sit up straight. Do not tighten (tense) your muscles. Do not smoke or use any products that contain nicotine or tobacco. If you need help quitting, ask your doctor. Exercise regularly as told by your doctor. Get enough sleep. This often means 7 9 hours of sleep each night. Keep all follow-up visits. This is important. Contact a doctor if: Medicine does not help your symptoms. You have a headache that feels different than the other headaches. You feel like you may vomit (nauseous) or you vomit. You have a fever. Get help right away if: Your headache: ?Gets very bad quickly. ?Gets worse after a lot of physical activity. You have any of these symptoms: ?You continue to vomit. ?A stiff neck. ?Trouble seeing. ?Your eye or ear hurts. ?Trouble speaking. ?Weak muscles or you lose muscle control. ?You lose your balance or have trouble walking. You feel like you will pass out (faint) or you pass out. You are mixed up (confused). You have a seizure. These symptoms may be an emergency. Get help right away. Call your local emergency services (911 int [place] Do not wait to see if the symptoms will go away. Do not drive yourself to the hospital. Summary A headache is pain or discomfort that is felt around the head or neck area. There are many causes and types of headaches. In some cases, the cause may not be found. Keep a journal to help find out what causes your headaches. Watch your condition for any changes. Let your doctor know about them. Contact a doctor if you have a headache that is different from usual, or if medicine does not help your headache. Get help right away if your headache gets very bad, you throw up, you have trouble seeing, you loseyour balance, or you have a seizure. This information is not intended to replace advice given to you by your health care provider. Make sure you discuss any questions you have with your health care provider. Document Revised: 01/09/2022 Document Reviewed: 01/09/2022 [employer] Patient Education 2023 [employer] 14. Follow Up Care 07/25/2024 22:10:02 With:Ambrose Guillaume Address: [address] [place] [address] Business (1) When:07/28/2024 Comments:Take the antibiotics as prescribed you have completed the course. Use nausea medication every 6 hours as needed for nausea and vomiting. You can use Tylenol every 6 hours as needed for pain. Please follow-up with your primary care doctor and [facility]ACETR[facility] STEWARD for further evaluation management. Please return to the ED for any new or worsening symptoms. [facility] 12-01-2024 NoteED Patient Education Note Gastroenterology Nausea and Vomiting, Adult Nausea is feeling that you have an upset stomach and that you are about to vomit. Vomiting is when food in your stomach forcefully comes out of your mouth. Vomiting can make you feel weak. If you vomit, or if you are not able to drink enough fluids, you may not have enough water in your body (get dehydrated). If you do not have enough water in your body, you may: ??? Feel tired. ??? Feel thirsty. ??? Have a dry mouth. ??? Have cracked lips. ??? Pee (urinate) less often. Older adults and people with other diseases or a weak body defense system (immune system) are at higher risk for not having enough water in the body. If you feel like you may vomit or you vomit, it is important to follow instructions from your doctor about how to take care of yourself. Follow these instructions at home: Watch your symptoms for any changes. Tell your doctor about them. Eating and drinking ??? Take an ORS (oral rehydration solution). This is a drink that is sold at pharmacies and stores. ??? Drink clear fluids in small amounts as you are able, such as: ? Water. ? Ice chips. ? Fruit juice that has water added (diluted fruit juice). ? Low-calorie sports drinks. ??? Eat bland, ycrs-qk-udlzmk foods in small amounts as you are able, such as: ? Bananas. ? Applesauce. ? Rice. ? Low-fat (lean) meats. ? [place]. ? Crackers. ??? Avoid drinking fluids that have a lot of sugar or caffeine in them. This includes energy drinks, sports drinks, and soda. ??? Avoid alcohol. ??? Avoid spicy or fatty foods. General instructions ??? Take xybw-bmh-sddgwhq and prescription medicines only as told by your doctor. ??? Drink enough fluid to keep your pee (urine) pale yellow. ??? Wash your hands often with soap and water for at least 20 seconds. If you cannot use soap and water, use hand tub washer. ??? Make sure that everyone in your home washes their hands well and often. ??? Rest at home until you feel better. ??? Watch your condition for any changes. ??? Take slow and deep breaths when you feel like you may vomit. ??? Keep all follow-up visits. Contact a doctor if: ??? Your symptoms get worse. ??? You have new symptoms. ??? You have a fever. ??? You cannot drink fluids without vomiting. ??? You feel like you may vomit for more than 2 days. ??? You feel light-headed or dizzy. ??? You have a headache. ??? You have muscle cramps. ??? You have a rash. ??? You have pain while peeing. Get help right away if: ??? You have pain in your chest, neck, arm, or jaw. ??? You feel very weak or you faint. ??? You vomit again and again. ??? You have vomit that is bright red or looks like black coffee grounds. ??? You have bloody or black poop (stools) or poop that looks like tar. ??? You have a very bad headache, a stiff neck, or both. ??? You have very bad pain, cramping, or bloating in your belly (abdomen). ??? You have trouble breathing. ??? You are breathing very quickly. ??? Your heart is beating very quickly. ??? Your skin feels cold and clammy. ??? You feel confused. ??? You have signs of losing too much water in your body, such as: ? Dark pee, very little pee, or no pee. ? Cracked lips. ? Dry mouth. ? Sunken eyes. ? Sleepiness. ? Weakness. These symptoms may be an emergency. Get help right away. Call 911. ??? Do not wait to see if the symptoms will go away. ??? Do not drive yourself to the hospital. Summary ??? Nausea is feeling that you have an upset stomach and that you are about to vomit. Vomiting is when food in your stomach comes out of your mouth. ??? Follow instructions from your doctor about eating and drinking. ??? Take rwde-kmu-mlwltfl and prescription medicines only as told by your doctor. ??? Contact your doctor if your symptoms get worse or you have new symptoms. ??? Keep all follow-up visits. This information is not intended to replace advice given to you by your health care provider. Make sure you discuss any questions you have with your health care provider. Document Revised: 02/15/2022 Document Reviewed: 02/15/2022 [employer] Patient Education ? 2023 [employer] Neurology General Headache Without Cause A headache is pain or discomfort you feel around the head or neck area. There are many causes and types of headaches. In some cases, the cause may not be found. Follow these instructions at home: Watch your condition for any changes. Let your doctor know about them. Take these steps to help with your condition: Managing pain ??? Take vsju-ixa-ryxcffu and prescription medicines only as told by your doctor. This includes medicines for pain that are taken by mouth or put on the skin. ??? Lie down in a dark, quiet room when you have a headache. ??? If told, pu (more content not included)...[facility] 07-25-2024 Evaluation + Plan noteExtracted from: Title:ED Note Author:Sissy Shah DO Date :07/25/24 Acute UTI (urinary tract inf ection) (N39.0: Urinary tract infection, site not specified) Headache (R51.9: Headache, unspecified) N&V (nausea and vomiting) (R11.2: Nausea with vomiting, unspecified) Orders: acetaminophen, 975 mg = 3 tab(s), Tab, Oral, Once, Stop date 07/25/24 22:42:00 EST, STAT, Start date 07/25/24 22:42:00 EST, 07/25/24 22:42:00 EST cephalexin, 500 mg = 1 cap(s), Oral, TID, X 5 day(s), # 15 cap(s), Refills(s) 0, Pharmacy: [facility], 175, cm, 07/25/24 22:16:00 EST, Height/Length Dosing, 79.2, kg, 07/25/24 22:16:00 EST, Weight Dosing cephalexin, 500 mg = 1 cap(s), Cap, Oral, Once, Stop date 07/25/24 23:10:00 EST, STAT, Start date 07/25/24 23:10:00 EST, 07/25/24 23:10:00 EST metoclopramide, 10 mg = 2 mL, Injection, IV Push, Once, Stop date 07/25/24 22:42:00 EST, STAT, Start date 07/25/24 22:42:00 EST, 07/25/24 22:42:00 EST ondansetron, 4 mg = 1 tab(s), Oral, q6hr, # 12 tab(s), Refills(s) 0, Pharmacy: [facility], 175, cm, 07/25/24 22:16:00 EST, Height/Length Dosing, 79.2, kg, 07/25/24 22:16:00 EST, Weight Dosing Sodium Chloride 0.9% intravenous solution, 500 mL, Soln-IV, IV, Once, Stop date 07/25/24 22:42:00 EST, STAT, Start date 07/25/24 22:42:00 EST, Infuse over 60, minute(s) UA with Cult Rflx Urine Culture Diagnostic Tests Pending * Urine Culture 07/25/24 [facility] 11-18-2024 History of Present illness Narrative* SONNY Velez - 07/12/2024 10:50 AM EST Reason for Appointment: Patient ID: Roque Pierson is a 24 y.o. female who presents for Routine Visit Patient presents today for Return OB appointment. MEDICATIONS Current Outpatient Medications Medication Instructions iron polysaccharides (PROFE) 391.3 mg, Oral, Daily magnesium oxide (MAG-OX) 400 mg, Oral, Daily ALLERGIES No Known Allergies PROBLEMS [...] reviewed. Vitals: Estimated body mass index is 27.57 kg/m as calculated from the following: Height as of 01/12/24: 5' 7 . Weight as of this encounter: 176 lb. BP: 110/58 Patient's last menstrual period was 12/22/2023. ASSESSMENT & PLAN ICD-10-CM 1. 28 weeks gestation of Z3A.28 POCT urinalysis dipstick manually resulted 2. Third trimester Z34.93 POCT urinalysis dipstick manually resulted 3. size inconsistent with dates O26.849 US OB SCAN FOR GROWTH Return OB: Patient presents today for a routine obstetrics appointment. Patient is currently 28w5d . Patient states she is doing well but has complaints of being tired due to current . Patient has verbalizes frequent movement. labor precautions was discussed/given and patient was instructed to perform kick counts three times a day. Orders Placed This Encounter Procedures US OB SCAN FOR GROWTH POCT urinalysis dipstick manually resulted Follow Up: Patient is to return to office in 2 week for routine OB appointment. Documented by SONNY Velez on behalf of: SONNY Velez documented in this encounterKansas City VA Medical [id number] History of Present illness Narrative* Pippa Ja - 06/28/2024 10:40 AM EST Reason for Appointment: Patient ID: Roque Pierson is a 23 y.o. female who presents for Routine Visit Patient presents today for Return OB appointment. MEDICATIONS No current outpatient medications ALLERGIES No Known Allergies PROBLEMS Active Ambulatory [...] SYSTEMS Review of Systems: Review of Systems OBJECTIVE Objective: Physical Exam Constitutional: Appearance: Normal [...] reviewed. Vitals: Estimated body mass index is 27.06 kg/m as calculated from the following: Height as of 01/12/24: 5' 7 . Weight as of this encounter: 172 lb 12 oz. BP: 100/68 Patient's last menstrual period was 12/22/2023.. ASSESSMENT & PLAN ICD-10-CM 1. Second trimester Z34.92 POCT urinalysis dipstick manually resulted 2. 26 weeks gestation of Z3A.26 Return OB: Patient presents today for a routine obstetrics appointment. Patient is currently 26w5d . Patient states she is doing well but has complaints of being tired due to current . Patient has verbalizes frequent movement. Orders Placed This Encounter Procedures POCT urinalysis dipstick manually resulted Patient experiencing headaches with photophobia, HG 9.5. we will start pro fe and magnesium. Pt otherwise doing well Follow Up: Patient is to return to office in 4 weeks for routine OB appointment. Documented by Pippa Peres on behalf of: Julius Crockett DO documented in this encounterKansas City VA Medical [id number] History of Present illness Narrative* SONNY Velez - 05/27/2024 10:30 AM EDT Reason for Appointment: Patient ID: Roque Pierson [...] behalf of: SONNY Velez documented in this encounterKansas City VA Medical [id number] History of Present illness Narrative* SONNY Velez - 04/29/2024 11:20 AM EDT Reason for Appointment: Patient ID: Roque Pierson is a 23 y.o. female who presents for Routine Visit Patient presents today for Return OB appointment. MEDICATIONS No current outpatient medications ALLERGIES No Known Allergies PROBLEMS Active Ambulatory [...] and oriented to person, place, and time. Skin: General: Skin is warm and dry. Psychiatric: Mood and Affect: Mood normal. Behavior: Behavior normal. Thought Content: Thought content normal. Judgment: Judgment normal. Vitals and nursing note reviewed. Vitals: Estimated body mass index is 25.22 kg/m as calculated from the following: Height as of 01/12/24: 5' 7 . Weight as of this encounter: 161 lb. BP: 110/72 Patient's last menstrual period was 12/22/2023. ASSESSMENT & PLAN ICD-10-CM 1. Screening, , for anatomic survey Z36.89 US OB ANATOMY SINGLE W US OB CERVICAL LENGTH 2. Well woman exam with routine gynecological exam Z01.419 3. Screen for STD (sexually transmitted disease) Z11.3 SURESWAB(R) ADVANCED VAGINITIS PLUS, TMA CHLAMYDIA TRACHOMATIS (GENITO/STI) Neisseria gonorrhea DNA probe, direct 4. Vaginal discharge N89.8 SURESWAB(R) ADVANCED VAGINITIS PLUS, TMA CHLAMYDIA TRACHOMATIS (GENITO/STI) Neisseria gonorrhea DNA probe, direct 5. 18 weeks gestation of Z3A.18 POCT urinalysis dipstick manually resulted SURESWAB(R) ADVANCED VAGINITIS PLUS, TMA CHLAMYDIA TRACHOMATIS (GENITO/STI) Neisseria gonorrhea DNA probe, direct Alpha fetoprotein, maternal Alpha fetoprotein, maternal Cultures obtained today Return OB: Patient presents today for a routine obstetrics appointment. Patient is currently 18w1d . Patient states she is doing well but has complaints of being tired due to current . Patient has verbalizes frequent movement. Orders Placed This Encounter Procedures US OB ANATOMY SINGLE W US OB CERVICAL LENGTH CHLAMYDIA TRACHOMATIS (GENITO/STI) Neisseria gonorrhea DNA probe, direct Alpha fetoprotein, maternal POCT urinalysis dipstick manually resulted Follow Up: Patient is to return to office in 4 week for routine OB appointment. Orders Placed This Encounter Procedures US OB ANATOMY SINGLE W US OB CERVICAL LENGTH CHLAMYDIA TRACHOMATIS (GENITO/STI) Neisseria gonorrhea DNA probe, direct Alpha fetoprotein, maternal POCT urinalysis dipstick manually resulted Documented by SONNY Velez on behalf of: SONNY Velez documented in this encounterKansas City [facility] [id number] Hospital Discharge instructions Patient Education 04/23/2024 12:06:38 Abdominal Pain, [...] Follow these instructions at home: Medicines Take eqlz-ofr-nbbadso and prescription medicines only as told by [...] provider. Document Revised: 05/28/2023 Document Reviewed: 05/28/2023 [employer] Patient Education 2023 Factor 14. Follow Up Care 04/23/2024 09:37:57 With:Julius CROCKETT Address: [address] [place] [address]- Business (1) When:04/26/2024 11:53:03 With:Ambrose Urbano Address: [address] [place], [place] [address] [address]- Business (1) When:04/26/2024 11:52:53 [facility] 08-30-2024 NoteED Patient Education Note Gastroenterology Abdominal Pain, Adult [...] these instructions at home: Medicines ? Take osyj-qxd-ipxestt and prescription medicines only as told by [...] provider. Document Revised: 05/28/2023 Document Reviewed: 05/28/2023 [employer] Patient Education ? 2023 Factor 14.[facility] 09-08-2023 Evaluation + Plan noteExtracted from: Title:ED Note Author:E[place] PA-C te:09/08/23 Bronchitis (J40: Bronchitis, not specified as acute or chronic) Orders: brompheniramine/dextromethorphan/PSE, 10 mL, Oral, QID for cough and congestion for 7 day(s), 280 mL, Refill(s) 0, [employer] #16, 175, cm, 09/08/23 11:11:00 EST, Height/Length Dosing, 79.5, kg, 09/08/23 11:11:00 EST, Weight Dosing XR Chest 2 Views [facility]01-15-2024 Hospital Discharge instructions Patient Education 09/08/2023 11:44:21 [...] condition. Follow these instructions at home: Take kdkr-nou-laaobay and prescription medicines only as told by [...] and water are not available, use hand tub washer. Avoid contact with people who have cold [...] it is easier to cough up. Take chug-kgs-ctmunrl and prescription medicines only as told by [...] provider. Document Revised: 11/21/2022 Document Reviewed: 12/12/2021 [employer] Patient Education 2022 Factor 14. Follow Up Care 09/08/2023 11:03:42 With:Ambrose Urbano Address: [address] [place] [address]- Business (1) When:09/11/2023 11:37:37 [facility]10-12-2023 Hospital Discharge instructions Patient Education 06/05/2023 18:18:00 [...] help with your condition: Managing pain Take ydpn-ihu-kfuvhto and prescription medicines only as told by [...] provider. Document Revised: 01/09/2022 Document Reviewed: 01/09/2022 [employer] Patient Education 2022 Factor 14. Follow Up Care 06/05/2023 15:22:25 With:Ambrose Urbano Address: [address] [place], [place] [id number] Business (1) When:06/08/2023 18:17:47 Comments:Call the office [...] you develop any new or worsening symptoms. [facility]10-12-2023 Evaluation + Plan noteExtracted from: Title:ED Note [...] eGFR Influenza A&B Ag Rapid COVID Antigen ([facility]) U Beta Hcg Qual [facility]04-04-2023 NoteThe following Patient Education Materials have been given to the patient: EducationMaterialU[facility] Health04-04-2023 Hospital Discharge instructions Patient Education 11/25/2022 22:14:49 [...] or until the pain goes away. Take bkrx-igc-zijuurj and prescription medicines only as told by [...] 05/20/2009 Document Revised: 01/27/2019 Document Reviewed: 01/27/2019 [employer] Patient Education 2020 Factor 14. 11/25/2022 22:14:49 Morning Sickness, Kewc-ef-Ocaw Morning Sickness Morning sickness is when you [...] Follow these instructions at home: Medicines Take lbdm-ohw-zxiphkk and prescription medicines only as told by [...] 09/18/2005 Document Revised: 07/24/2018 Document Reviewed: 09/11/2017 [employer] Patient Education 2020 [employer] 11/25/2022 22:14:49 Second Trimester of , Rakr-pn-Iomd Second Trimester of The second trimester is [...] Follow these instructions at home: Medicines Take drwr-ele-leembww and prescription medicines only as told by [...] 11/05/2010 Document Revised: 12/03/2019 Document Reviewed: 09/16/2017 [employer] Patient Education 2020 [employer] 11/25/2022 22:14:49 Abdominal Pain During , Fqlw-ld-Emkc Abdominal Pain During Belly (abdominal) pain is [...] keep your pee (urine) pale yellow. Take itpp-neg-ghstrhj and prescription medicines only as told by [...] 07/30/2010 Document Revised: 11/29/2019 Document Reviewed: 11/13/2017 [employer] Patient Education 2020 Factor 14. Follow Up Care 11/25/2022 18:22:07 With:Your doctor in [place] [phone] Address:Unknown When:11/28/2022 21:41:43 Comments:Call for any problems.Call [...] work. May take Tylenol for pain relief. [facility]02-06-2023 Hospital Discharge instructions* Discharge Instructions* Morgan Falk DO - 09/30/2022 9:10 AM EST Zofran as needed for nausea. Follow-up with OB next week as scheduled. Return to ER for worsening symptoms including intractable vomiting or abdominal pain or fevers or chills or any vaginal bleeding. * Attachments The following attachments cannot be sent through Care Everywhere. * : Hyperemesis Gravidarum (Bahraini) documented in [facility] Phone: [phone] 435-198701-11-2023 Hospital Discharge instructions* Attachments The following attachments cannot be sent through Care Everywhere. * : Morning Sickness (Bahraini) * Oral Rehydration (Bahraini) documented in this [facility]EN[facility] Phone: [phone] Evaluation + Plan noteExtracted from: Title:ED Note [...] UA With Cult Reflex US 1st Trimester [facility]01-05-2023 Hospital Discharge instructions Patient Education 08/29/2022 01:49:40 [...] water added (diluted fruit juice). Eat bland, hcmi-sr-rfsoac foods in small amounts as you are able. These foods include bananas, applesauce, rice, lean meats, toast, and crackers. Avoid drinking fluids that contain a lot of sugar or caffeine, such as energy drinks, sports drinks, and soda. Avoid alcohol. Avoid spicy or fatty foods. General instructions Take fznn-ktj-soefiaj and prescription medicines only as told by your health care provider. Rest at home while you recover. Drink enough fluid to keep your urine pale yellow. Breathe slowly and deeply when you feel nauseous. Avoid smelling things that have strong odors. Wash your hands often using soap and water. If soap and water are not available, use hand tub washer. Make sure that all people in your [...] recommendations for eating and drinking and take xorl-nrt-mnnjgno and prescription medicinesonly as told by your [...] 09/18/2005 Document Revised: 01/19/2019 Document Reviewed: 01/19/2019 [employer] Patient Education 2020 Factor 14. 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 Avoid heavy [...] disease or chickenpox. You are exposed to Austrian measles (rubella) and have never had it. [...] 08/05/2002 Document Revised: 07/24/2018 Document Reviewed: 07/23/2017 [employer] Patient Education 2020 [employer] 08/29/2022 01:49:40 Abdominal Pain During Abdominal Pain [...] to keep your urine pale yellow. Take staq-ehb-nntjmle and prescription medicines only as told by [...] 08/11/2006 Document Revised: 11/29/2019 Document Reviewed: 11/13/2017 [employer] Patient Education 2020 [employer] Follow Up Care 08/28/2022 21:30:23 With:Julius CROCKETT Address: [address] , [place] [address]- Business (1) When:09/01/2022 Comments:Return to the emergency room if your pain gets worse, general bleeding, vomiting or any new symptoms With:Ambrose Urbano Address: [address] [place] [address] [place] [address]- Business (1) When:Within 3 Day(s) [facility]01-02-2023 Evaluation + Plan noteExtracted from: Title:ED Note Author:Oscar TAYLOR Kei Date:08/26 Hyperemesis gravidarum (O21. 0: Mild hyperemesis [...] Tube Lipase Level UA With Cult Reflex [facility]01-02-2023 Hospital Discharge instructions Follow Up Care 08/26/2022 11:00:10 With:Julius CROCKETT Address: [address] [place] [address]- Business (1) When:08/29/2022 12:48:07 With:Ambrose Urbano Address: [address] [place] [address] [place] [address]- Business (1) When:Within 3 Day(s) [facility]12-31-2022 History of Present illness Narrative* Shantanu Jameson RN - 08/24/2022 2:15 AM EST Patient resting with eyes closed documented in this encounterEN[facility] Phone: [phone] Hospital Discharge instructions* Discharge Instructions* Lebron Guevara MD - 08/10/2022 2:09 AM EST By Last Menstrual of 07/12, I calculated your due date as 04/18/2023 4 weeks 1 day as of 08/10/2022 * Attachments The following attachments cannot be sent through Care Everywhere. * : Abdominal Pain (Bahraini) * : Morning Sickness (Bahraini) documented in this encounterEN[facility] Phone: [phone] 525-690812-13-2022 Hospital Discharge instructions* Discharge Instructions* Morgan Falk DO - 08/06/2022 1:40 AM EST Take ogoc-gui-nveyzsg Prilosec as needed for heartburn symptoms. Call to establish care. Return to ER for worsening symptoms. * Attachments The following attachments cannot be sent through Care Everywhere. * : Morning Sickness (Bahraini) documented in this encounterEN[facility] Phone: [phone] Evaluation note* Diagnosis Morning sickness- Primary Mild hyperemesis gravidarum, unspecified as to episode of care documented in this encounter [facility] Phone: [phone] Evaluation + Plan noteExtracted from: Title:ED Note [...] With Cult Reflex XR Chest Single View [facility]11-18-2022 Hospital Discharge instructions Patient Education 07/12/2022 05:07:15 Abdominal Pain, Adult, Leze-lr-Joxj Abdominal Pain, Adult Many things can cause belly (abdominal) pain. Most times, belly pain is not dangerous. Many cases of belly pain can be watched and treated at home. Sometimes, though, belly pain is serious. Your doctor will try to find the cause of your belly pain. Follow these instructions at home: Medicines Take hwlb-smh-luocift and prescription medicines only as told by [...] your belly pain for any changes. Take ropf-dqk-xbsdgey and prescription medicines only as told by [...] 01/27/2009 Document Revised: 12/20/2019 Document Reviewed: 12/20/2019 [employer] Patient Education 2020 Factor 14. Follow Up Care 07/12/2022 03:38:09 With:Ambrose Guillaume Address: [address] [place] [address] Business (1) When:07/15/2022 Comments:Take the Pepcid once [...] theED for any new or worsening symptoms. [facility]* Diagnosis Non-intractable vomiting with nausea, unspecified vomiting type- Primary documented in this encounter [facility] Phone: evaluation note* Diagnosis Pain, dental- Primary Unspecified disorder of the teeth and supporting structures documented in this encounter [facility] Phone: evaluation note* Diagnosis Abdominal cramping- Primary Abdominal pain, unspecified site Negative test examination or test, negative result documented in this encounter [facility] Phone: evaluation note* Diagnosis Pain, dental- Primary Unspecified disorder of the teeth and supporting structures History of tooth extraction, unspecified edentulism class documented in this encounter [facility] Phone: evalammmsr note* Diagnosis Abdominal pain during in first trimester- Primary Nausea and vomiting during documented in this encounter [facility] Phone: evalieqswm note* Diagnosis Hyperemesis gravidarum- Primary Mild hyperemesis gravidarum, unspecified as to episode of care Dehydration documented in this encounter [facility] Phone: evaluation note* Diagnosis Vomiting of , antepartum- Primary Unspecified vomiting of , antepartum Dehydration during documented in this encounter [facility] Phone: evalnidbek note* Diagnosis Cellulitis of right upper extremity- Primary Cellulitis and abscess of upper arm and forearm documented in this encounter [facility] Phone: evalijemwt note* Diagnosis Nausea and vomiting during - Primary documented in this encounter [facility] Phone: evalvvduaj noteNo assessment information available [facility] Work Phone: Evaluation note* Diagnosis Second trimester state, incidental 22 weeks gestation of Diabetes mellitus screening Screening for diabetes mellitus Decreased appetite Anorexia [facility] Diagnosis Second trimester state, incidental 26 weeks gestation of [facility]* Diagnosis 28 weeks gestation of Third trimester state, incidental size inconsistent with dates [facility]* Diagnosis Third trimester state, incidental 30 weeks gestation of [facility]* Diagnosis Screening, , for anatomic survey Encounter for anatomic survey Well woman exam with routine gynecological exam Routine gynecological examination Screen for STD (sexually transmitted disease) Screening examination for venereal disease Vaginal discharge Leukorrhea, not specified as infective 18 weeks gestation of [facility]* Diagnosis Low iron Unspecified iron deficiency anemia Third trimester state, incidental 33 weeks gestation of 26 weeks gestation of [facility]* Diagnosis Third trimester state, incidental 35 weeks gestation of [facility]* Diagnosis Third trimester state, incidental 36 weeks gestation of [facility]* Diagnosis Third trimester state, incidental 38 weeks gestation of [facility]* Diagnosis Third trimester state, incidental 39 weeks gestation of documented [facility] encounter [facility] Narrative No data available for this section [facility]* Attachments The following attachments cannot be sent through Care Everywhere. * Nausea and Vomiting (Bahraini) documented in this [facility] Phone: Hospital Discharge instructions* Attachments The following attachments cannot be sent through Care Everywhere. * Tooth and Gum Pain (B[place]raini) documented in [facility] Phone: Hospital Discharge instructions* Attachments The following attachments cannot be sent through Care Everywhere. * Abdominal Pain ([place]i) documented in this encounterB[facility] Phone: Hospital Discharge instructions* Attachments The following attachments cannot be sent through Care Everywhere. * Star Tooth Extraction: Post-op (Bahraini) documented in this encounterEN[facility] Phone: Hospital Discharge instructions* Attachments The following attachments cannot be sent through Care Everywhere. * Oral Rehydration ([place]raini) documented in this [facility]EN[facility] Phone: Hospital Discharge instructions* Attachments The following attachments cannot be sent through Care Everywhere. * Cellulitis (Bahraini) documented in this [facility]EN[facility] Phone: Hospital Discharge instructions No data available for this section [facility] No data available for this section [facility] Summary Purpose Family History No Family History Records FoundNo Family History Records Found No data available for this section No Family History Records Found No data available for this section No Family History Records FoundNo Family History Records Found No data available for this section No data available for this section No [...] FoundDocuments on File Type Date Recorded Patient Training Project Manager Expl anation ACP-Advance Directive ACP-Power of Crystallography Teacher Additional Source Comments INFORMATION SOURCE (unrecogn ized section and content) DATE CREATED AUTHOR 02/17/2018 [facility] DATE CREATED AUTHOR AUTHOR'S ORGANIZ ATION 12/09/2022 [facility] [place] [facility] DATE CREATED AUTHOR AUTHOR'S ORGANIZ ATION 06/07/2023 [facility] DATE CREATED AUTHOR AUTHOR'S ORGANIZ ATION 11/15/2023 [facility] DATE CREATED AUTHOR AUTHOR'S ORGANIZ ATION 02/01/2024 [facility] DATE CREATED AUTHOR AUTHOR'S ORGANIZ ATION 07/26/2024 [facility] DATE CREATED AUTHOR AUTHOR'S ORGANIZ ATION 07/29/2024 [facility] DATE CREATED AUTHOR AUTHOR'S ORGANIZ ATION 09/06/2024 [facility] DATE CREATED AUTHOR AUTHOR'S ORGANIZ ATION 09/07/2024 [facility] DATE CREATED AUTHOR AUTHOR'S ORGANIZ ATION 09/07/2024 [facility] DATE CREATED AUTHOR AUTHOR'S ORGANIZ ATION 09/08/2024 [facility] DATE CREATED AUTHOR AUTHOR'S ORGANIZ ATION 09/11/2024 [facility] DATE CREATED AUTHOR AUTHOR'S ORGANIZ ATION 09/23/2024 [facility] DATE CREATED AUTHOR AUTHOR'S ORGANIZ ATION 09/24/2024 [facility] EPIC Reason for Visit (unrecogniz ed section and content) Reason Comments Nausea Started today with h juan daniel then became nausous and threw up multiple [...] she took 2 positive tests from the [employer] but she wanted to come to the hospital to get it checked. 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 an [employer] Morning Sickness Nausea with no vomit ing, [...] Care Teams (unrecognized sec tion and content) Photograph Retoucher Relationship Specialty Start Date End Date Ambrose Urbano MD [address] [place] [address] PCP - General Family Medicine 02/08/22 Photograph Retoucher Relationship Specialty Start Date End Date Ambrose Urbano MD [address] [place] [address] PCP - General Family Medicine 02/08/22 Photograph Retoucher Relationship Specialty Start Date End Date Ambrose Urbano MD [address] [place] [address] PCP - General Family Medicine 02/08/22 Photograph Retoucher Relationship Specialty Start Date End Date Ambrose Urbano MD [address] [place] [address] PCP - General Family Medicine 02/08/22 Photograph Retoucher Relationship Specialty Start Date End Date Ambrose Urbano MD [address] [place] [address] PCP - General Family Medicine 02/08/22 Photograph Retoucher Relationship Specialty Start Date End Date Ambrose Urbano MD [address] [place] [address] PCP - General Family Medicine 02/08/22 Photograph Retoucher Relationship Specialty Start Date End Date Ambrose Urbano MD [address] [place] [address] PCP - General Family Medicine 02/08/22 Team Status: Inactive Member Role Status Dates Julius Crockett Attending Provider Active Start: [facility] 2023 End: November 14, 2023 Photograph Retoucher Relationship Specialty Start Date End Date Ambrose Urbano MD [address] [facility] [place] [address] PCP - General Family Medicine 01/23/23 Jo Anderson PA [address] [place] [address] [place] [address] PCP - [facility] 11/24/23 Photograph Retoucher Relationship Specialty Start Date End Date Ambrose Urbano MD [address] [facility] [place] [address] PCP - [facility] 01/23/23 Jo Anderson PA [address] [place] [address] [place] [address] PCP - [facility] 11/24/23 Photograph Retoucher Relationship Specialty Start Date End Date Ambrose Urbano MD [address] [facility] [place] [address] PCP - [facility] 01/23/23 Jo Anderson PA [address] [place] [address] [place] [address] PCP - [facility] 11/24/23 Photograph Retoucher Relationship Specialty Start Date End Date Ambrose Urbano MD [address] [facility] [place] [address] PCP - [facility] 01/23/23 Jo Anderson PA [address] [place] [address] [place] [address] PCP - [facility] 11/24/23 Photograph Retoucher Relationship Specialty Start Date End Date Ambrose Urbano MD [address] [facility] [place] [address] PCP - [facility] 01/23/23 Jo Anderson, PA [address] [place] [address] [place] [address] PCP - [facility] 11/24/23 Photograph Retoucher Relationship Specialty Start Date End Date Ambrose Urbano MD [address] [facility] [place] [address] PCP - [facility] 01/23/23 Jo Anderson PA [address] [place] [address] [place] [address] PCP - [facility] 11/24/23 Photograph Retoucher Relationship Specialty Start Date End Date Ambrose Urbano MD [address] [facility] [place] [address] PCP - [facility] 01/23/23 Jo Anderson PA [address] [place] [address] [place] [address] PCP - [facility] 11/24/23 Photograph Retoucher Relationship Specialty Start Date End Date Ambrose Urbano MD [address] [facility] [place] [address] PCP - [facility] 01/23/23 Jo Anderson PA [address] [place] [address] [place] [address] PCP - [facility] 11/24/23 Photograph Retoucher Relationship Specialty Start Date End Date Ambrose Urbano MD [address] [facility] [place] [address] PCP - [facility] 01/23/23 Jo Anderson PA [address] [place] [address] [place] [address] PCP - [facility] 11/24/23 Photograph Retoucher Relationship Specialty Start Date End Date Ambrose Urbano MD [address] [facility] [place] [address] PCP - [facility] 01/23/23 Jo Anderson PA [address] [place] [address] [place] [address] PCP - [facility] 11/24/23 Photograph Retoucher Relationship Specialty Start Date End Date Amborse Urbano MD [address] [place] [address] [address] PCP - [facility] 01/23/23 Jo Anderson PA [address] [place] [address] [place] [address] PCP - [facility] 11/24/23 Photograph Retoucher Relationship Specialty Start Date End Date Ambrose Urbano MD [address] [place] [address] [place] [address] PCP - [facility] 01/23/23 Jo Anderson PA [address] [place] [address] [place] [address] PCP - [facility] 11/24/23 Team Status: Inactive Member Role Status Dates Julius Crockett DO Attending Provider Active Start : August 31, 2024 End: August 31, 2024 Photograph Retoucher Relationship Specialty Start Date End Date Ambrose Urbano MD [address] [facility] [place] [address] PCP - [facility] 01/23/23 Jo Anderson PA [address] [place] [address] [place] [address] [facility] 11/24/23 Photograph Retoucher Relationship Specialty Start Date End Date Ambrose Urbano MD [address] [facility] [place] [address] PCP - [facility] 01/23/23 Jo Anderson PA [address] [facility] [place] [address] PCP - [facility] 11/24/23 Goals (unrecognized section and content) Goals [...] BE BASED ON THE PRIMARY CLINICAL RECORDS. [facility]. provides no warranty or guarantee of the accuracy or completeness of information in this document.
[2024-09-26] MEDS: 0.9 % SODIUM CHLORIDE 1,000 ML 125 ML IV (05:57)
[2024-09-26] MEDS: OXYTOCIN/0.9 % SODIUM CHLORIDE 10 UNITS/500 ML PLAST..BAG 6 UNIT IV (05:59)
[2024-09-26 07:21] LABS: Amphetamine Screen Urine NEGATIVE (NEGATIVE); Cannabinoid Screen Urine NEGATIVE (NEGATIVE); Cocaine Screen Urine NEGATIVE (NEGATIVE); Methamphetamines Screen Urine NEGATIVE (NEGATIVE); Opiate Screen Urine NEGATIVE (NEGATIVE); Phencyclidine Screen Urine NEGATIVE (NEGATIVE)
[2024-09-26 07:22] LABS: Barbiturates Screen Urine NEGATIVE (NEGATIVE); Benzodiazepines Screen Urine NEGATIVE (NEGATIVE); Buprenorphine Screen Urine NEGATIVE (NEGATIVE); Methadone Screen Urine NEGATIVE (NEGATIVE); Oxycodone Screen Urine NEGATIVE (NEGATIVE); Tricyclic Antidepressant Urine NEGATIVE (NEGATIVE)
[2024-09-26 09:40] LABS: Basophils Absolute Auto 0.1 10^3/uL (0.0-0.1); Basophils Percent Auto 0.6 % (0.2-2.0); Eosinophils Absolute Auto 0.1 10^3/uL (0.0-0.7); Eosinophils Percent Auto 1.3 % (0.9-7.0); Hemoglobin 10.2 g/dL (12.0-16.0); Immature Granulocytes Abs Auto 0.03 10^3/uL (0.00-0.03); Immature Granulocytes Pct Auto 0.4 % (0.0-0.5); Lymphocytes Absolute Auto 2.6 10^3/uL (1.2-3.8); Lymphocytes Percent Auto 32.2 % (20.5-60.0); Mean Corpuscular HGB Conc 31.9 g/dL (29.9-35.2); Mean Corpuscular Hemoglobin 25.9 pg (26.7-34.0); Mean Corpuscular Volume 81.2 fL (81.0-99.0); Mean Platelet Volume 11.4 fL (9.5-13.5); Monocytes Absolute Auto 0.6 10^3/uL (0.3-0.8); Monocytes Percent Auto 6.9 % (1.7-12.0); Neutrophils Absolute Auto 4.7 10^3/uL (1.4-6.5); Neutrophils Percent Auto 58.6 % (43.0-75.0); Platelet Count 223 10^3/uL (150-450); Red Blood Count 3.94 10^6/uL (4.20-5.40); Red Cell Distribution Width 14.3 % (11.0-15.0)
[2024-09-26] MEDS: 0.9 % SODIUM CHLORIDE 1,000 ML 1000 ML IV (10:30)
[2024-09-26] MEDS: ONDANSETRON PF 4 MG/2 ML VIAL IV (12:51)
[2024-09-26] MEDS: ROPIVACAINE HCL/PF 400 MG/200 ML PREMIX 9 MG EPIDURAL (15:14)
[2024-09-26] MEDS: OXYTOCIN/0.9 % SODIUM CHLORIDE 20 UNITS/1,000 ML PLAST..BAG 999 UNIT IV (16:25)
--- NOTE | 2024-09-26 16:28 | PM.OBPRCVD ---
Procedure Intrapartal events: None Induction method: per pitocin protocol Delivery augmentation: rupture of membranes and pitocin Delivery monitor: external FHT and external uterine Route of delivery: Episiotomy Description: right mediolateral L&D Laceration Description: perineal - 2nd degree Delivery repair: Vicryl Estimated blood loss (mL): 200 Anesthesia type: Epidural Disposition: floor Delivery date: 09/26/24 Gender: male presentation: vertex Placental delivery description: Spontaneous cord description: 3 Vessels and Nuchal Cord
[2024-09-26] MEDS: IBUPROFEN 600 MG TABLET PO (17:27)
[2024-09-26] MEDS: GLYCERIN/WITCH HAZEL PADS 1 PAD TOPICAL (17:27)
[2024-09-26] MEDS: BENZOCAINE/MENTHOL 85 GRAM SPRAY BOTTLE 1 APPLIC TOPICAL (17:28)
[2024-09-26] MEDS: ACETAMINOPHEN 325 MG TABLET 650 MG PO (20:09)
--- NOTE | 2024-09-27 05:37 | PM.OBPN ---
OB - PN: Subj Subjective Patient comments: no complaints and pain well controlled [place] status: doing well Exam Constitutional Vital Signs, click to edit/add: Last Vital Signs Temp 98.2 F 09/26/24 23:58 Pulse 53 L 09/26/24 23:58 Resp 16 09/26/24 20:05 BP 115/59 09/26/24 23:58 O2 Del Method Room Air 09/26/24 20:05 Documenting provider has reviewed patient's vital signs: yes Common normals: no apparent distress Respiratory Common normals: normal respiratory effort and clear to auscultation bilaterally Cardio Common normals: regular rate and regular rhythm GI Common normals: Normal to inspection, nondistended, normoactive bowel sounds present Extremity Common normals: no clubbing, cyanosis or edema Results Labs Labs: Short CBC 09/26/24 Range/Units 05:30 WBC 8.0 (4.0-11.0) 10^3/uL Hgb 10.2 L (12.0-16.0) g/dL Hct 32.0 L (36.0-48.0) % Plt Count 223 (150-450) 10^3/uL OB - PN: A/P Plan - Vaginal Delivery day: 1 Plan: routine care Time Spent with Patient Time: Total time spent is greater than 50% in coordination of care (as documented) at patient's floor/unit and/or counseling patient: Total time spent with greater than 50% in coordination of care (as documented) at patient's floor/unit and/or counseling patient: less than 15 minutes
[2024-09-27 06:03] LABS: Basophils Absolute Auto 0.1 10^3/uL (0.0-0.1); Basophils Percent Auto 0.7 % (0.2-2.0); Eosinophils Absolute Auto 0.1 10^3/uL (0.0-0.7); Eosinophils Percent Auto 1.4 % (0.9-7.0); Hematocrit 28.9 % (36.0-48.0); Hemoglobin 9.1 g/dL (12.0-16.0); Immature Granulocytes Abs Auto 0.04 10^3/uL (0.00-0.03); Immature Granulocytes Pct Auto 0.5 % (0.0-0.5); Lymphocytes Absolute Auto 2.3 10^3/uL (1.2-3.8); Lymphocytes Percent Auto 27.2 % (20.5-60.0); Mean Corpuscular HGB Conc 31.5 g/dL (29.9-35.2); Mean Corpuscular Hemoglobin 25.7 pg (26.7-34.0); Mean Corpuscular Volume 81.6 fL (81.0-99.0); Mean Platelet Volume 10.4 fL (9.5-13.5); Monocytes Absolute Auto 0.7 10^3/uL (0.3-0.8); Monocytes Percent Auto 7.7 % (1.7-12.0); Neutrophils Absolute Auto 5.4 10^3/uL (1.4-6.5); Neutrophils Percent Auto 62.5 % (43.0-75.0); Platelet Count 171 10^3/uL (150-450); Red Blood Count 3.54 10^6/uL (4.20-5.40); Red Cell Distribution Width 14.4 % (11.0-15.0); White Blood Count 8.6 10^3/uL (4.0-11.0)
[2024-09-27 08:30] VITALS: TEMP 36.5
[2024-09-27 08:47] VITALS: BP 118/68; PULSE 71
[2024-09-27] MEDS: IBUPROFEN 600 MG TABLET PO ×3 (08:51→15:45)
[2024-09-27 13:16] VITALS: BP 115/64; PULSE 71
[2024-09-27 13:29] VITALS: TEMP 36.8
[2024-09-27 15:46] VITALS: BP 117/72; PULSE 76
[2024-09-27] MEDS: ACETAMINOPHEN 325 MG TABLET 650 MG PO (19:41)
[2024-09-27] MEDS: DOCUSATE SODIUM 100 MG CAPSULE PO (19:41)
[2024-09-28 00:31] VITALS: BP 109/58; PULSE 59
[2024-09-28 00:32] VITALS: BP 109/58; PULSE 59; TEMP 36.7
[2024-09-28] MEDS: IBUPROFEN 600 MG TABLET PO ×3 (00:38→13:52)
--- NOTE | 2024-09-28 07:25 | PC.NURSE ---
Report received from Gray Amato RN
[2024-09-28] MEDS: DOCUSATE SODIUM 100 MG CAPSULE PO (08:32)
[2024-09-28] MEDS: ACETAMINOPHEN 325 MG TABLET 650 MG PO (08:33)
[2024-09-28 08:40] VITALS: BP 115/57; PULSE 55
--- NOTE | 2024-09-28 08:49 | P.OBPN_ITS ---
OB - PN: Subj Subjective Patient comments: no complaints [place] status: doing well feeding status: exclusively Exam Constitutional Vital Signs, click to edit/add: Last Vital Signs Temp 98.0 F 09/28/24 00:32 Pulse 55 L 09/28/24 08:40 Resp 16 09/28/24 00:32 BP 115/57 09/28/24 08:40 O2 Del Method Room Air 09/28/24 08:38 Documenting provider has reviewed patient's vital signs: yes Common normals: no apparent distress, average body habitus, oriented x3, no gutierrez itations, healthy appearing, alert and well nourished Exam limitations: altered mental status General appearance: cooperative Orientation/consciousness: Yes awake, Yes oriented to person, Yes oriented to place and Yes oriented to time HENMT Common normals: normocephalic Neck & C-Spine Common normals: full ROM Lymph Lymphatic: no lymphadenopathy noted Chest Common normals: inspection of chest normal Respiratory Common normals: normal respiratory effort Effort & inspection: able to speak in complete sentences Auscultation: clear to auscultation bilaterally Cardio Common normals: regular rate and regular rhythm Rate: regular rate Rhythm: regular rhythm GI Common normals: Normal to inspection, nondistended, normoactive bowel sounds present and non-tender Inspection: normal to inspection Auscultation: normoactive bowel sounds Palpation: soft Back & Pelvis Common normals: no CVA tenderness Extremity Common normals: normal to inspection General: normal exam except as noted Neuro Common normals: oriented x3 Sensorium/orientation: awake, alert, oriented to person, oriented to place and oriented to time Psych Common normals: mental status grossly normal, thought process normal, cooperative, affect normal, speech normal, activity/motor behavior normal, denies hallucinations, denies homicidal ideation and denies suicidal ideation Appearance: grossly normal Attitude: calm Thought process: normal thought process OB - PN: A/P Plan - Vaginal Delivery day: 1 Plan: discharge home Time Spent with Patient Time: Total time spent is greater than 50% in coordination of care (as documented) at patient's floor/unit and/or counseling patient: Total time spent with greater than 50% in coordination of care (as documented) at patient's floor/unit and/or counseling patient: less than 15 minutes
[2024-09-28] MEDS: MEASLES,MUMPS,RUBELLA VACC/PF 0.5 ML VIAL SQ (13:32)
[2024-09-28] MEDS: ADACEL DIPH,PERTUSS(ACELL),TET VAC/PF 0.5 ML ADULT SYRINGE IM (13:33)
[2024-09-28 14:17] VITALS: BP 126/68; PULSE 68; TEMP 36.8
== END 2024-09-28 14:18 | disposition home or self-care (01) | DRG 560 ==
PROVIDERS: Admitting Provider Obstetrics & Gynecology; PCP Family Medicine; Visit Provider Obstetrics & Gynecology
DX: O69.81X0 Labor and delivery complicated by cord around neck, without compression, not applicable or unspecified (principal); O70.1 Second degree perineal laceration during delivery; Z37.0 Single live birth; Z87.440 Personal history of urinary (tract) infections; Z3A.39 39 weeks gestation of pregnancy
CPT/HCPCS: 36415; 59050; 59410; 80307; 85025; 86850; 86900; 86901; 90707; 90715; J2405; J2795

== ENCOUNTER 2024-09-30 10:25 | Outpatient (OUT) | payer OTHER, SELFPAY ==
--- NOTE | 2024-09-30 11:17 | PC.NURSE ---
Alfreda and 4 day old Curt arrive to await bili results from out pt lab. Mom consents to follow up today instead of returning tomorrow as scheduled. Alfreda reports feeling well but is tired. States is helpful but returned to work already. States milk is in, full and leaking this mornging. VSS and assessment WNL. Takes Tylenol or Motrin as needed for cramping. No complaints of perineal discomfort, using bessy bottle, tucks and Dermaplast for comfort. Denies concerns for self. Baby Curt is jaundiced in color with pink undertones. Awake and rooting at this time. Feeds every 1.5-2 hours latching well on right breast, slightly more difficult on left side. Baby with VSS and assessment WNL. Weight has returned to weight. Stools yellow/brown this morning. Baby to breast on left side. Mom assisted to adjust positioning to make latching easier. Baby with immediate latch, good sucking with gulping noted. Baby noted to have milk leaking around mouth during let down. Finishes feed X12 minutes and sleeps soundly. Aware to try to nurse both breasts per feed. Mom reports nursed baby short while after blood draw. Bili level results reported to Dr Mancia, no further action required. Mom and baby leave together for home. Will see PEDS tomorrow. Mom aware to call for questions or concerns, aware of [facility] group as well.
[2024-09-30 11:18] VITALS: BP 114/77; PULSE 70; TEMP 36.8; O2SAT 96
== END 2024-09-30 11:22 | disposition home or self-care (01) ==
LOC: FBCO 10:26
PROVIDERS: PCP Family Medicine; Visit Provider Obstetrics & Gynecology
DX: Z39.1 Encounter for care and examination of lactating mother (principal)

== ENCOUNTER 2024-10-04 23:02 | Emergency (ER) | payer OTHER, SELFPAY ==
--- OUTSIDE RECORDS SUMMARY | 2024-10-04 23:12 | XMS_ITS | CCD ---
Author Organization [facility] CliniSyma Care Team Providers Care Postal Worker Name Role Phone JANIE JO Burk Unavailable Unavailable Ambrose Urbano MD Primary Care Provider Ambrose Urbano MD Primary Care Provider Ambrose Urbano MD Primary Care Provider [phone] Ambrose Urbano Primary Care Physician Ambrose Urbano MD Primary Care Provider [phone] JUSTIN ., JO Consulting Unavailable REQUEST, [...] Unavailable Ambrose Urbano MD Primary Care Provider [phone] Jo Ledesma Unavailable DO Sissy Shah A [...] for 7 day(s), 14 tab(s), Refill(s) 0, [facility], 172.7, cm, 09/01/24 0:36:00 EST, [...] oral solution (1 source) alpha-Adrenergic Agonist, Uncompetitive I-bwyklt-M-aspartate Receptor Antagonist, Sigma-1 Agonist Start: 09-08-2023 End: 09-15-2023 take 10 mL by mouth four times daily for cough and congestion Bromfed DM oral syrup 10 mL, Oral, QID for cough and congestion for 7 day(s), 280 mL, Refill(s) 0, [facility], 175, cm, 09/08/23 11:11:00 EST, Height/Length [...] day(s), # 15 cap(s), Refills(s) 0, Pharmacy: [facility], 175, cm, 07/25/24 22:16:00 EST, Height/Length [...] q6hr, # 14 tab(s), Refills(s) 0, Pharmacy: [facility], 173, cm, 09/08/22 1:24:00 EST, Height/Length [...] q6hr, # 12 tab(s), Refills(s) 0, Pharmacy: [facility], 175, cm, 07/25/24 22:16:00 EST, Height/Length [...] Test Name Value Interpretation Reference Range Facility ALL CBC WITH AUTO DIFFon BASOPHILS ABSOLUTE AUTO 0.1 [facility] Basophils/100 WBC (Bld) 0.7 % 0.2 - 2.0 % [facility] Eosinophils/100 WBC (Bld) 1.4 % 0.9 - 7.0 % [facility] Erythrocyte distribution width (RBC) [Ratio] 14.4 % 11.0 - 15.0 % [facility] Hematocrit (Bld) [Volume fraction] 28.9 % Low 36.0 - 48.0 % [facility] Hemoglobin (Bld) [Mass/Vol] 9.1 g/dL Low 12.0 - 16.0 g/dL [facility] IMMATURE GRANULOCYTES ABS AUTO 0.04 High [facility] Immature granulocytes/100 WBC (Bld) 0.5 % 0.0 - 0.5 % [facility] Interpretation and review of laboratory results Abnormal [facility] LYMPHOCYTES ABSOLUTE AUTO 2.3 [facility] Lymphocytes/100 WBC (Bld) 27.2 % 20.5 - 60.0 % [facility] MCH (RBC) [Entitic mass] 25.7 pg Low 26. 7 - 34.0 pg [facility] MCHC (RBC) [Mass/Vol] 31.5 g/dL 29.9 - 35.2 g/dL [facility] MCV (RBC) [Entitic vol] 81.6 fL 81.0 - 99.0 fL [facility] MONOCYTES ABSOLUTE AUTO 0.7 N [facility] Monocytes/100 WBC (Bld) 7.7 % 1.7 - 12.0 % [facility] NEUTROPHILS ABSOLUTE AUTO 5.4 [facility] Neutrophils/100 WBC (Bld) 62.5 % 43.0 - 75.0 % [facility] Platelet mean volume (Bld) [Entitic vol] 10.4 fL 9.5 - 13.5 fL [facility] EO # 0.1 [facility] PLT 171 [facility] RBC 3.54 Low [facility] WBC 8.6 [facility] DRUG SCREEN RAPID (URINE )on 09-26-2024 AMPHETAMINE SCREEN URINE Negative NEGATIVE [facility] BARBITURATES SCREEN URINE Negative NEGATIVE [facility] BENZODIAZEPINES SCREEN URINE Negative NEGATIVE [facility] BUPRENORPHINE SCREEN URINE Negative NEGATIVE [facility] Comment on above: DRUG CLASS TEST SYST EM CUT-OFF CONCENTRATIONS ARE FOLLOWS: AMP (Amphetamine): 500 ng/mL BAR (Barbiturates): 200 ng/mL BZO (Benzodiazepines): 150 ng/mL BUP (Buprenorphine): 10 ng/mL SHANNAN (Cocaine): 150 ng/mL mAMP (Methamphetamine): 500 ng/mL MTD (Methadone): 200 ng/mL OPI (Opiates): 100 ng/mL OXY (Oxycodone): 100 ng/mL PCP (Phencyclidine): 25 ng/mL THC (Cannabinoids): 50 ng/mL TCA (Trycyclic Antidepressants): 300 ng/mL CANNABINOID SCREEN URINE Negative NEGATIVE [facility] COCAINE SCREEN URINE Negative NEGATIVE [facility] METHADONE SCREEN URINE Negative NEGATIVE NO [facility] METHAMPHETAMINES SCREEN URINE Negative NEGATIVE [facility] OPIATE SCREEN URINE Negative NEGATIVE [facility] OXYCODONE SCREEN URINE Negative NEGATIVE NO [facility] PHENCYCLIDINE SCREEN URINE Negative NEGATIVE [facility] TRICYCLIC ANTIDEPRESSANT URINE Negative NEGATIVE [facility] Urinalysis macro (dipstick) panel (U)on 09-22-2024 Bilirubin, UA Negative Negative - 4(70) +++ mg/dL [facility] Blood, UA Negative Negative - 50 Jorge/mcL [facility] Clarity, UA Clear [facility] Color, UA Yellow [facility] Glucose, UA Negative Negative - 2000(110) ++++ mg/dL [facility] Interpretation and review of laboratory results Abnormal [facility] Ketones, UA Negative Negative - 160(16) ++++ mg/dL [facility] Leukocytes, UA Trace Negative - 500+++ Jose/mcL [facility] Nitrite, UA Negative Negative - Positive [facility] pH, UA 6 5 - 9 [facility] Protein, UA Negative Negative - 1999(20) ++++ mg/dL [facility] Spec Grav, UA 1.015 1 - 1.03 [facility] Urobilinogen, UA 0.2 0.2 - 12 mg/dL [facility] Urinalysis macro (dipstick) panel (U)on 09-07-2024 Bilirubin, UA Negative Negative - 4(70) +++ mg/dL [facility] Blood, UA Positive Negative - 50 Jorge/mcL [facility] Comment on above: trace Clarity, UA Clear [facility] Color, UA Yellow [facility] Glucose, UA Negative Negative - 1999(110) ++++ mg/dL [facility] Interpretation and review of laboratory results Abnormal [facility] Ketones, UA Negative Negative - 160(16) ++++ mg/dL [facility] Leukocytes, UA Negative Negative - 500+++ Jose/mcL [facility] Nitrite, UA Negative Negative - Positive [facility] pH, UA 7 5 - 9 [facility] Protein, UA Negative Negative - 1999(20) ++++ mg/dL [facility] Spec Grav, UA 1.02 1 - 1.03 [facility] Urobilinogen, UA 0.2 0.2 - 12 mg/dL [facility] BOX TESTon 09-04-2024 BOX TEST RESULT SEE SCANNED REPORT N [facility] BOX TEST SENT OUT GROUP B CULTURE [facility] [address] [facility] [address] 08/31/24 [facility] GROUP B [facility] C Sputumon 09-03-2024 Bacteria identified Respiratory culture [facility] (Sput) Microbiology PROCEDURE: Sputum Culture [R1] SOURCE: [...] Locations R1: This test was performed at: [facility], [address] [place] [address], [id number] , [place], Normal [facility] Comment on above: Performed By: #### 2 [id number] #### [facility] Laboratory [address] [place] [address] General Message Officeon [employer] Message Office --- --- --- --- --- --- --- --- --- From: [facility] To: ROQUE PIERSON Sent: 09/03/24 02:30:31 AM EST Subject: Discharge Summary Ready to View A summary regarding your recent visit is available in the Documents section of your health record. Normal [facility] Respiratory Panel by PCRon 0 09-03-2024 Adenovirus DNA CATRINA+non-probe Ql (Nph) Not detected Normal [facility] Comment on above: Result Comment: Test ing was performed using nucleic acid amplification including Influenza A, Influenza A H1, Influenza A H3, Influenza B, RSV A, RSV B, Adenovirus, Human Metapneumovirus, Parainfluenza 1,2,3, and 4, Rhinovirus, Bordetella parapertussis/bronchiseptica, Bordetella holmesii, and Bordetella pertussis. Performed By: #### 1 [id number] #### [facility] [address] [place] [address] B. parapertussis DNA CATRINA+probe Ql (Upper resp) Not detected Normal Not Detected [facility] Comment on above: Performed By: #### 1 [id number] #### [facility] [address] [place] [address] B. pertussis DNA CATRINA+probe Ql (Upper resp) Not detected Normal Not Detected [facility] Comment on above: Performed By: #### 1 [id number] #### [facility] [address] [place] [address] FLUAV H1 RNA CATRINA+non-probe Ql (Nph) Not detected Normal [facility] Comment on above: Performed By: #### 1 [id number] #### [facility] [address] [place] [address] FLUAV H3 RNA CATRINA+non-probe Ql (Nph) Not detected Normal [facility] Comment on above: Performed By: #### 1 [id number] #### [facility] [address] [place] [address] FLUAV RNA CATRINA+non-probe Ql (Nph) Not detected Normal [facility] Comment on above: Performed By: #### 1 [id number] #### [facility] [address] [place] [address] FLUBV RNA CATRINA+non-probe Ql (Nph) Not detected Normal [facility] Comment on above: Performed By: #### 1 [id number] #### [facility] [address] [place] [address] Human Metapneumovirus Not detected Normal [facility] Comment on above: Result Comment: This test result should be correlated with clinical presentations and medical history by a healthcare provider to determine its clinical significance. Performed By: #### 1 [id number] #### [facility] [address] [place] [address] Parainfluenza virus 1 RNA CATRINA+non-probe Ql (Nph) Not detected Normal [facility] Comment on above: Performed By: #### 1 [id number] #### [facility] [address] [place] [address] Parainfluenza virus 2 RNA CATRINA+non-probe Ql (Nph) Not detected Normal [facility] Comment on above: Performed By: #### 1 [id number] #### [facility] [address] [place] [address] Parainfluenza virus 3 RNA CATRINA+non-probe Ql (Nph) Not detected Normal [facility] Comment on above: Performed By: #### 1 [id number] #### [facility] [address] [place] [address] Parainfluenza virus 4 RNA CATRINA+non-probe Ql (Nph) Not detected Normal [facility] Comment on above: Performed By: #### 1 [id number] #### [facility] [address] [place] [address] Resp Panel Intrl QC Pass Normal [facility] Comment on above: Performed By: #### 1 [id number] #### [facility] [address] [place] [address] Rhinovirus+Enterovirus RNA CATRINA+non-probe Ql (Nph) Not detected Normal [facility] Comment on above: Performed By: #### 1 [id number] #### [facility] [address] [place] [address] RSV RNA CATRINA+non-probe Ql (Nph) Not detected Normal [facility] Comment on above: Performed By: #### 1 [id number] #### [facility] [address] [place] [address] Strep pneumo Ag, Uron 2024 Bacteria Identification Cx Ql (Isol) Not indicated. Invalid Interpretation Code [facility] Comment on above: Performed By: #### 4 [id number] #### [facility] [address] [place] [address] Bacteria identified Sterile body fluid culture Nom (Unsp spec) Not indicated. Invalid Interpretation Code [facility] Comment on above: Performed By: #### 4 [id number] #### [facility] [address] [place] [address] Note Bact Ag Cult Comment Invalid Interpretation Code [facility] Comment on above: Result Comment: Ian ege of [place] [employer] standards require a culture to be performed on CSF specimens submitted for bacterial antigen testing. (CAP CHASE.[id number]) Urine specimens will not be cultured. Performed at: [address] [id number] MD [place] Performed By: #### 4 [id number] #### [facility] [address] [place] [address] S. pneumoniae Ag Ql (Unsp spec) Negative Invalid Interpretation Code Negative [facility] Comment on above: Performed By: #### 4 [id number] #### [facility] [address] [place] [address] Specimen source Nom (Unsp spec) Urine Invalid Interpretation Code [facility] Comment on above: Performed By: #### 4 [id number] #### [facility] [address] [place] [address] U Legi Agon 09-03-2024 L. pneumophila 1 Ag IA Ql (U) Negative Invalid Interpretation Code Negative [facility] Comment on above: Result Comment: Pres umptive negative for L. pneumophila serogroup 1 antigen in urine, suggesting no recent or current infection. Legionnaires' disease cannot be ruled out since other serogroups and species may also cause disease. Performed at: [facility] [id number] MD [place] Performed By: #### 2 [id number] #### [facility] [address] [place] [address] BMPon 09-02-2024 Anion gap [Moles/Vol] 9 mmol/L Normal 6-16 [facility] Comment on above: Performed By: #### 2 [id number] #### [facility] [address] [place] [address] Calcium [Mass/Vol] 7.8 mg/dL Low 8.9-11.1 [facility] Comment on above: Performed By: #### 2 [id number] #### [facility] [address] [place] [address] Chloride [Moles/Vol] 115 mmol/L High 101-111 [facility] Comment on above: Performed By: #### 2 [id number] #### [facility] [address] [place] [address] CO2 [Moles/Vol] 20 mmol/L Low 21-31 [facility] Comment on above: Performed By: #### 2 [id number] #### [facility] [address] [place] [address] Creatinine [Mass/Vol] 0.4 mg/dL Low 0.5-1.3 [facility] Comment on above: Performed By: #### 2 [id number] #### [facility] [address] [place] [address] Glucose [Mass/Vol] 83 mg/dL Normal 55-199 [facility] Comment on above: Performed By: #### 2 [id number] #### [facility] [address] [place] [address] Potassium [Moles/Vol] 3.2 mmol/L Low 3.5-5.3 [facility] Comment on above: Performed By: #### 2 [id number] #### [facility] [address] [place] [address] Sodium [Moles/Vol] 141 mmol/L Normal 135-145 [facility] Comment on above: Performed By: #### 2 [id number] #### [facility] [address] [place] [address] Urea nitrogen [Mass/Vol] 5 mg/dL Normal 5-21 [facility] Comment on above: Performed By: #### 2 [id number] #### [facility] [address] [place] [address] Urea nitrogen/Creatinine [Mass ratio] 12 No Units Normal 10-20 [facility] Comment on above: Performed By: #### 2 [id number] #### [facility] [address] [place] [address] CBC w/ Auto Diffon 5 Basophils/100 WBC (Bld) 0.4 % Normal 0.0-2.0 F [facility] Comment on above: Performed By: #### 2 [id number] #### [facility] [address] [place] [address] Basophils/Leukocytes Auto (Bld) [Pure # fraction] 0.1 E9/L Normal 0.0-0.2 [facility] Comment on above: Performed By: #### 2 [id number] #### [facility] [address] [place] [address] Eosinophils (Bld) [#/Vol] 0.3 E9/L Normal 0.0-0.5 [facility] Comment on above: Performed By: #### 2 [id number] #### [facility] [address] [place] [address] Eosinophils/100 WBC (Bld) 2.5 % Normal 0.0-8.0 [facility] Comment on above: Performed By: #### 2 [id number] #### [facility] [address] [place] [address] Erythrocyte distribution width (RBC) [Ratio] 14.0 % Normal 10.9-14.2 [facility] Comment on above: Performed By: #### 2 [id number] #### [facility] [address] [place] [address] Hematocrit (Bld) [Volume fraction] 24.5 % Low 34.0-46.0 [facility] Comment on above: Performed By: #### 2 [id number] #### [facility] [address] [place] [address] Hemoglobin (Bld) [Mass/Vol] 8.2 g/dL Low 12.0-16.0 [facility] Comment on above: Performed By: #### 2 [id number] #### [facility] [address] [place] [address] Lymphocytes (Bld) [#/Vol] 1.6 E9/L Normal 1.0-4.0 [facility] Comment on above: Performed By: #### 2 [id number] #### [facility] [address] [place] [address] Lymphocytes/100 WBC (Bld) 12.8 % Low 14.0-50.0 [facility] Comment on above: Performed By: #### 2 [id number] #### [facility] [address] [place] [address] MCH (RBC) [Entitic mass] 26.6 pg Low 27.0-34.0 [facility] Comment on above: Performed By: #### 2 [id number] #### [facility] [address] [place] [address] MCHC (RBC) [Mass/Vol] 33.4 g/dL Normal 31.4-36.0 [facility] Comment on above: Performed By: #### 2 [id number] #### [facility] [address] [place] [address] MCV (RBC) [Entitic vol] 79.6 fL Low 80.0-100.0 F [facility] Comment on above: Performed By: #### 2 [id number] #### [facility] [address] [place] [address] Monocytes (Bld) [#/Vol] 0.6 E9/L Normal 0.2-1.0 F [facility] Comment on above: Performed By: #### 2 [id number] #### [facility] [address] [place] [address] Neutrophils (Bld) [#/Vol] 10.0 E9/L High 2.0-7.5 [facility] Comment on above: Performed By: #### 2 [id number] #### [facility] [address] [place] [address] Neutrophils/100 WBC (Bld) 79.2 % High 36.0-75.0 [facility] Comment on above: Performed By: #### 2 [id number] #### [facility] [address] [place] [address] Platelet mean volume (Bld) [Entitic vol] 8.0 fL Normal 6.4-10.8 [facility] Comment on above: Performed By: #### 2 680215 #### [facility] [address] [place] [address] Platelets (Bld) [#/Vol] 200.0 E9/L Normal 150.0-500.0 [facility] Comment on above: Performed By: #### 2 [id number] #### [facility] [address] [place] [address] RBC (Bld) [#/Vol] 3.1 E12/L Low 4.3-5.9 [facility] Comment on above: Performed By: #### 2 [id number] #### [facility] [address] [place] [address] WBC corrected for nucl RBC Auto (Bld) [#/Vol] 12.7 E9/L High 4.0-11.0 [facility] Comment on above: Performed By: #### 2 [id number] #### [facility] [address] [place] [address] CHEMISTRYOrdered By: SYSTEM SYSTEM on 09-02-2024 Anion [...] Chem Discharge Note-Nursingon Discharge Note-Nursing Discharge Note-Nursing DANGELOROQUE GARG :2000 Visit Date:09/01/2024 Inpatient Discharge Instructions Your [...] Follow Up with Ambrose Urbano When: Where: [address] [place] [address]- Business (1) Medications What How Much When Instructions Next Dose New amoxicillin-clavulan ate (Augmentin 875 mg-125 mg Tab) 1 Tablets By Mouth 2 times a day Duration: 7 Days Pickup at [facility] 9pm Unchanged iron polysaccharide (ProFe 180 [...] for nausea/vomiting resume as needed Pharmacy Information [facility]: [address] [place], [place] [id number] [phone] Test Results CBC BMP WBC: 12.7 E9/L [...] (09/02/24 05:49:00) Potassium Lvl: 3.2 mmol/L Low (09/02/24 05:49:00) MCHC: 33.4 gm/dL (09/02/24 05:49:00) Chloride: 115 mmol/L High (09/02/24 05:49:00) RDW: 14 % (09/02/24 05:49:00) CO2: 20 mmol/L Low (09/02/24 05:49:00) Platelet: 200 E9/L (09/02/24 05:49:00) AGAP: 9 mEq/L (09/02/24 05:49:00) MPV: 8 fL (09/02/24 05:49:00) Calcium Lvl: 7.8 mg/dL Low (09/02/24 05:49:00) Allergies No Known Allergies Problems Historical - [...] that is high in altitude, where thinner, coal drier 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 ??? Doing exercises that put stress on your body for a long time (endurance sports). ??? Being active in a hot climate. What are the signs or symptoms? Symptoms of dehydration depend on how severe it is. Mild or moderate dehydration (more content not included)... Normal [facility] HEMATOLOGYOrdered By: SYSTEM SYSTEM on 09-02-2024 Basophils/100 [...] 09-02-2024 Inpatient Clinical Summary Inpatient Clinical Summary [address] [address] Clinical Summary Person Information: Name: ROQUE PIERSON Age: 24 Years : 2000 Sex: Female PCP: Ambrose Urbano MD Marital Status: Race: White Ethnicity: Non- or Language: [place] Visit Id: Visit Reason: Headache; Cough; Shortness of breath; HEADACHE FEVER NAUSEA DIFFICULTY BREATHING/37 WKS PREG Speciality: Acuity: Enc Type: Inpatient Med Service: Medical Arrival: 09/01/2024 00:18:15 Discharge: Dispo Type: Admitted as IP to this Hosp Address: [address] [facility] [id number] Provider Notes: Diagnosis: 1:CAP (community acquired pneumonia); [...] up appoinment(s). With: Address: When: Ambrose Urbano [address] [place] [address], [place] [address] Business (1) Patient Education Information: Dehydration, Adult; Community-Acquired Pneumonia, Adult Normal [facility] Inpatient Patient Summaryon 09-02-2024 Inpatient Patient Summary Inpatient Patient Summary [address] [address] Patient Discharge Instructions PERSON INFORMATION Name: ROQUE [...] up appoinment(s). With: Address: When: Ambrose Urbano [address] [place] [address], [place] [address] Business (1) In the event that this physician does not participate in your insurance network, please consult with your insurance company to find a nearby participating provider. Comment: I, ROQUE PIERSON, have received the attached patient education materials/instructio ns and have verbalized understanding: Patient Signature Date Clinican/Nurse Signature Date HERE ARE THE MEDICATION CHANGES THAT OCCURRED DURING YOUR HOSPITAL STAY New Medications [facility], [address] [place], [place] [id number], [phone] amoxicillin-clavulan ate (Augmentin 875 mg-125 mg Tab) [...] needed for nausea/vomiting. Refills: 0. Pharmacy Information: [facility] Comment: PATIENT EDUCATION INFORMATION Instructions: Dehydration, [...] illness that h (more content not included)... Normal [facility] Interdisciplinary Note - Paulo e Manageron 09-02-2024 Interdisciplinary Note - Bottom Filler Interdisciplinary Note - Bottom Filler CRM to room 319 Patient is awake, alert and oriented. Patient is from home. Patient verified PCP, DME and insurance. Patient is an inpatient stay. Her Spouse or family will transport at [place]. Patient came in with JAVIER, fever and Nausea. She was found to have PNA. Patient is 37 weeks . Her SW consult need was in error, see SW note. Patient is assigned to Dr Miranda, see notes. Patient is on RA today. Patient declined any concerns to return home at [place] and declined needs for DME, HH or Paramed. Patient was provided CRM contact, white board updated. She would like to DC home today since she is feeling better CRM will get updates from DR Miranda at 10 AM Patient DC today Normal [facility] Comment on above: Result Comment: Elec [...] Audible movements, patient feeling baby moving. Normal [facility] [facility] eGFRon 09-02-2024 eGFR 142 mL/min/1.73 m2 Normal >=59 [facility] Comment on above: Performed By: #### 1 [id number] #### [facility] [address] [place] [address] BMPon 09-01-2024 Anion gap [Moles/Vol] 14 mmol/L Normal 6-16 [facility] Comment on above: Performed By: #### 2 [id number] #### [facility] [address] [place] [address] Calcium [Mass/Vol] 8.5 mg/dL Low 8.9-11.1 [facility] Comment on above: Performed By: #### 2 [id number] #### [facility] [address] [place] [address] Chloride [Moles/Vol] 102 mmol/L Normal 101-111 [facility] Comment on above: Performed By: #### 2 [id number] #### [facility] [address] [place] [address] CO2 [Moles/Vol] 19 mmol/L Low 21-31 [facility] Comment on above: Performed By: #### 2 [id number] #### [facility] [address] [place] [address] Creatinine [Mass/Vol] 0.6 mg/dL Normal 0.5-1.3 [facility] Comment on above: Performed By: #### 2 [id number] #### [facility] [address] [place] [address] Glucose [Mass/Vol] 108 mg/dL Normal 55-199 [facility] Comment on above: Performed By: #### 2 [id number] #### [facility] [address] [place] [address] Potassium [Moles/Vol] 3.2 mmol/L Low 3.5-5.3 [facility] Comment on above: Performed By: #### 2 [id number] #### [facility] [address] [place] [address] Sodium [Moles/Vol] 132 mmol/L Low 135-145 [facility] Comment on above: Performed By: #### 2 [id number] #### [facility] [address] [place] [address] Urea nitrogen [Mass/Vol] 5 mg/dL Normal 5-21 [facility] Comment on above: Performed By: #### 2 [id number] #### [facility] [address] [place] [address] Urea nitrogen/Creatinine [Mass ratio] 8 No Units Low 10-20 [facility] Comment on above: Performed By: #### 2 [id number] #### [facility] [address] [place] [address] BNPon 09-01-2024 Int Ctr BNP Pass Normal [facility] Comment on above: Performed By: #### 1 [id number] #### [facility] [address] [place] [address] Natriuretic peptide B (Bld) [Mass/Vol] 36 pg/mL Normal 5-80 [facility] Comment on above: Performed By: #### 1 [id number] #### [facility] [address] [place] [address] CBC w/ Auto Diffon 5 Basophils/100 WBC (Bld) 0.4 % Normal 0.0-2.0 [facility] Comment on above: Performed By: #### 2 [id number] #### [facility] [address] [place] [address] Basophils/Leukocytes Auto (Bld) [Pure # fraction] 0.1 E9/L Normal 0.0-0.2 [facility] Comment on above: Performed By: #### 2 [id number] #### [facility] [address] [place] [address] Eosinophils (Bld) [#/Vol] 0.0 E9/L Normal 0.0-0.5 [facility] Comment on above: Performed By: #### 2 [id number] #### [facility] [address] [place] [address] Eosinophils/100 WBC (Bld) 0.1 % Normal 0.0-8.0 [facility] Comment on above: Performed By: #### 2 [id number] #### [facility] [address] [place] [address] Erythrocyte distribution width (RBC) [Ratio] 13.8 % Normal 10.9-14.2 [facility] Comment on above: Performed By: #### 2 [id number] #### [facility] [address] [place] [address] Hematocrit (Bld) [Volume fraction] 30.7 % Low 34.0-46.0 [facility] Comment on above: Performed By: #### 2 [id number] #### [facility] [address] [place] [address] Hemoglobin (Bld) [Mass/Vol] 10.2 g/dL Low 12.0-16.0 [facility] Comment on above: Performed By: #### 2 [id number] #### [facility] [address] [place] [address] Lymphocytes (Bld) [#/Vol] 0.6 E9/L Low 1.0-4.0 [facility] Comment on above: Performed By: #### 2 [id number] #### [facility] [address] [place] [address] Lymphocytes/100 WBC (Bld) 3.9 % Low 14.0-50.0 [facility] Comment on above: Performed By: #### 2 [id number] #### [facility] [address] [place] [address] MCH (RBC) [Entitic mass] 26.0 pg Low 27.0-34.0 [facility] Comment on above: Performed By: #### 2 [id number] #### [facility] [address] [place] [address] MCHC (RBC) [Mass/Vol] 33.2 g/dL Normal 31.4-36.0 [facility] Comment on above: Performed By: #### 2 [id number] #### [facility] [address] [place] [address] MCV (RBC) [Entitic vol] 78.4 fL Low 80.0-100.0 [facility] Comment on above: Performed By: #### 2 [id number] #### [facility] [address] [place] [address] Monocytes (Bld) [#/Vol] 0.6 E9/L Normal 0.2-1.0 [facility] Comment on above: Performed By: #### 2 [id number] #### [facility] [address] [place] [address] Neutrophils (Bld) [#/Vol] 14.6 E9/L High 2.0-7.5 [facility] Comment on above: Performed By: #### 2 [id number] #### [facility] [address] [place] [address] Neutrophils/100 WBC (Bld) 91.7 % High 36.0-75.0 [facility] Comment on above: Performed By: #### 2 648102 #### [facility] [address] [place] [address] Platelet mean volume (Bld) [Entitic vol] 8.0 fL Normal 6.4-10.8 [facility] Comment on above: Performed By: #### 2 [id number] #### [facility] [address] [place] [address] Platelets (Bld) [#/Vol] 228.0 E9/L Normal 150.0-500.0 [facility] Comment on above: Performed By: #### 2 [id number] #### [facility] [address] [place] [address] RBC (Bld) [#/Vol] 3.9 E12/L Low 4.3-5.9 [facility] Comment on above: Performed By: #### 2 [id number] #### [facility] [address] [place] [address] WBC corrected for nucl RBC Auto (Bld) [#/Vol] 16.0 E9/L High 4.0-11.0 [facility] Comment on above: Performed By: #### 2 [id number] #### [facility] [address] [place] [address] CHEMISTRYOrdered By: SYSTEM SYSTEM on 09-01-2024 Procalcitonin [...] High Sensitivity Troponin I Instructions For Use, [employer], March 2018) Troponin HS 8.00 pg/mL Low 10.10 - 27.10 pg/mL [facility] Comment on above: Interpretive Data: T he 95% CI (Confidence Interval) PPV (Positive Predictive Value) for myocardial infarction in females is 38 pg/mL, in males 51 pg/mL. The results should be used in conjunction with clinical conditions of myocardial infarction. (Access High Sensitivity Troponin I Instructions For Use, [employer], March 2018) Anion gap [Moles/Vol] 14 mmol/L [...] 36 pg/mL Normal 5 - 80 pg/mL [facility] COAGULATIONOrdered By: Davidson Watson on 09-01-2024 aPTT Coag (PPP) [Time] 28.8 s Normal 25.1 - 36.5 second(s) [facility] Comment on above: Interpretive Data: Florian narda 15 days - 4 weeks 1 - [...] the same coagulation reagent and instrumentation as [facility]. Currently there are no coagulation studies available worldwide for children to 14 days, and no normal ranges. Heparin therapeutic range (represented by Anti-Factor Xa activity of 0.2 - 0.4 U/mL) corresponds to PTT of 56.6 - 109.0 sec. Fibrin D-dimer FEU (PPP) [Mass/Vol] 5210 ng/mL FEU Invalid Interpretation Code 215 - 500 ng/mL FEU [facility] Comment on above: Result Comment: [...] [Relative time] 1.02 {INR} Invalid Interpretation Code [facility] Comment on above: Interpretive Data: I NR results are specifically intended to assess patients stabilized on long-term Anticoagulation therapy suggested INR s Less Intensive Anticoagulation 2.0 3.0 Conventional Range 3.0 4.5 PT Coag (PPP) [Time] 11.4 s Normal 9.4 - 1 2.5 second(s) [facility] Comment on above: Interpretive Data: [...] the same coagulation reagent and instrumentation as [facility]. Currently there are no coagulation studies available [...] 370 Contrast amount in ml's: 57 Normal [facility] D-Dimeron 09-01-2024 Fibrin D-dimer FEU (PPP) [Mass/Vol] 5210 [id number] Abnormal 215-500 [facility] Comment on above: Result Comment: Resu lts [...] infections Liver cirrhosis Performed By: #### 2 [id number] #### [facility] [address] [place] [address] ED Clinical Summaryon 2024 ED Clinical Summary ED Clinical Summary [address] [address] ED Clinical Summary Person Information Name: ROQUE PIERSON[place] Age: 24 Years : 2000 Sex: Female Language: Argentine PCP: Ambrose Urbano MD Marital Status: Visit Id: Visit Reason: Headache; Cough; Shortness of breath; HEADACHE FEVER NAUSEA DIFFICULTY BREATHING/37 WKS PREG Speciality: Acuity: 2 Enc Type: Inpatient Med Service: Medical Arrival: 09/01/2024 00:18:15 Discharge: LOS: 000 04:24 Checkin: 09/01/2024 00:18:15 Checkout: 09/01/2024 04:42:33 Dispo Type: Admitted as IP to this [facility] EVENTS: Event Name Event Status Request [...] 09/01/2024 04:42:33 09/01/2024 04:42:33 09/01/2024 04:42:33 ADDRESS: [address] [place] [id number] [facility] DOC NOTES: MEDICAL INFORMATION: Prescriptions Given: Medications [...] (community acquired pneumonia); 2:Dehydration; 3: woman Normal [facility] ED Note-Physicianon 09-01-19 ED Note-Physician ED Note-Physician [...] is her third . She saw her PAIRER INSPECTOR yesterday and everything was fine. She states [...] Given a (more content not included)... Normal [facility] Comment on above: Result Comment: Elec tronically Signed By: Richard Escudero MD\.br\Date and Time Signed: 09/01/24 04:38 EST ED Patient Education Noteon 09-01-2024 ED Patient Education Note ED Patient Education Note Normal [facility] ED Patient Summaryon 025 ED Patient Summary ED Patient Summary [place] [id number] Patient Discharge Instructions Person Information Name: ROQUE PIERSON Age: 24 Years Arrival Date: 09/01/2024 00:18:15 Discharge Diagnosis: 1:CAP (community acquired pneumonia); 2:Dehydration; 3: woman Primary Care Physician: Ambrose Urbano MD Provider Information Primary Provider: Richard Escudreo MD Advanced Drip Molder:None The exam and treatment you received in the Emergency Department were for an urgent problem and are not intended as complete care. It is important that you follow up with a doctor, nurse practitioner, or physician???s diagnostic assistant for ongoing care. If your symptoms become worse or you do not improve as expected and you are unable to reach your usual health care provider, you should return to the Emergency Department. We are available 24 hours a day. DANGELO, ROQUE Valdez has been given the following list [...] opioids can be used to help relieve faxdorwu-hu-kcyuxd pain and are often prescribed following a [...] be struggling with addiction, tell your health direct care counselor and ask for guidance or call [facility]S National Helpline at 2-677-380-JFOO. v Source: Department of Health and Daniela (more content not included)... Normal [facility] Extra [place] 09-01-2024 WB Tube Collected Yes Invalid Interpretation Code [facility] Comment on above: Performed By: #### 1 [id number] #### [facility] [address] [place] [address] HEMATOLOGYOrdered By: SYSTEM SYSTEM on 09-01-2024 Basophils/100 [...] 5 Influenzae A Ag Negative Normal Negative [facility] Comment on above: Performed By: #### 1 [id number] #### [facility] [address] [place] [address] Influenzae B Ag Negative Normal Negative [facility] Comment on above: Result Comment: Test sensitivity and specificity vary for age group, specimen type, antigen types, and prevalence of disease. Test results must be evaluated in conjunction with other clinical data available to the physician. Individuals who received nasally administered Influenza A vaccine may have positive test results up to 3 days after vaccination. Performed By: #### 1 [id number] #### [facility] [address] [place] [address] Interdisciplinary Note - Paulo e Manageron 09-01-2024 Interdisciplinary Note - Bottom Filler Interdisciplinary Note - Bottom Filler CRM to room 319 Patient is awake, alert and oriented. Patient is from home. Patient verified PCP, DME and insurance. Patient is an inpatient stay. Her Spouse or family will transport at [place]. Patient came in with JAVIER, fever and Nausea. She was found to have PNA. Patient is 37 weeks . Her SW consult need was in error, see SW note. Patient is assigned to Dr Miranda, see notes. Patient is on oxygen, she will need weaned. She does not wear at home. Patient declined any concerns to return home at [place] and declined needs for DME, HH or Paramed. Patient was provided CRM contact, white board updated. She is not a DC today Normal [facility] Comment on above: Result Comment: Elec tronically Signed By: Angelina Spencer\.br\Date and Time Signed: 09/01/24 10:57 EST Interdisciplinary Note - Soc ial Workeron 09-01-2024 Interdisciplinary Note - Food Service Team Member Interdisciplinary Note - Food Service Team Member Consult for positive alcohol screen received. Per chart review, it was noted that this was marked in error. Documentation had been corrected by nursing staff after system generated consult was triggered. No concerns noted at this time. SW will remain available should needs arise. Normal [facility] - Microbiology an d Antimicrobial susceptibilityOrdered By: Carla Daugherty on 09-01-2024 Bacteria identified Respiratory culture Nom (Sput) 1+ Normal upper respiratory taye isolated [facility] Lactic Acidon 09-01-2024 Lactic Acid Lvl 1.1 mmol/L Normal 0.5-2.2 [facility] Comment on above: Performed By: #### 2 [id number] #### [facility] [address] [place] [address] MICRO OTHER TESTSOrdered By: Davidson Watson on 09-01-2024 Influenzae A Ag Negative (09/01/24 12:41 AM) Normal Negative [facility] Man Sero Influenzae B Ag Negative 4 (09/01/24 12:41 AM) Normal Negative [facility] Sero Comment on above: Interpretive Data: T [...] NEG Ctl Pass (09/01/24 12:41 AM) Normal [facility] S[facility] Rapid COV Int POS Ctl Pass (09/01/24 12:41 AM) Normal [facility] Sero SARS-CoV+SARS-CoV-2 (COVID-19) Ag IA.rapid Ql (Resp) Not Detected 12 (09/01/24 12:41 AM) Normal Not Detected [facility] Comment on above: Interpretive Data: T he [employer] Veritor System for Rapid Detection of SARS-CoV-2 [...] White Blood Cells Occasional Gram Positive Cocci [facility] No Panel InformationOrdered By: [facility] MICRO[facility] on 09-01-2024 Blood Culture Charcoal No growth at 1 da y. Final to follow at 7 days. [facility] Blood Culture Charcoal No growth at 1 da y. Final to follow at 7 days. [facility] Nursing Assessmenton 025 Nursing Assessment Nursing Assessment At 1925 FHT via doppler on [facility]. FHT audible via mid left umbilicus, FHT in 130s, audible movement, abdomen soft to palpation. RN notified. Normal [facility] Nursing Assessment Nursing Assessment 0950 this nurse into see [facility] for heart rate. FHTs performed on left mid umbilicus, 150's audible movement noted. abdomen soft to palpation Normal [facility] PT & PTTon 09-01-2024 aPTT Coag (PPP) [Time] 28.8 second(s) Normal 25.1-36.5 [facility] Comment on above: Result Comment: Para meter [...] the same coagulation reagent and instrumentation as [facility]. Currently there are no coagulation studies available worldwide for children to 14 days, and no normal ranges. Heparin therapeutic range (represented by Anti-Factor Xa activity of 0.2 - 0.4 U/mL) corresponds to PTT of 56.6 - 109.0 sec. Performed By: #### 1 [id number] #### [facility] [address] [place] [address] INR Coag (PPP) [Relative time] 1.02 {INR} Invalid Interpretation Code [facility] Comment on above: Result Comment: INR results are specifically intended to assess patients stabilized on long-term Anticoagulation therapy suggested INR???s ???Less Intensive Anticoagulation??? 2.0 ??? 3.0 Conventional Range 3.0 ??? 4.5 Performed By: #### 1 [id number] #### [facility] [address] [place] [address] PT Coag (PPP) [Time] 11.4 second(s) Normal 9.4-12.5 [facility] Comment on above: Result Comment: 15 d [...] the same coagulation reagent and instrumentation as [facility]. Currently there are no coagulation studies available worldwide for children to 14 days, and no normal ranges. Performed By: #### 1 [id number] #### [facility] [address] [place] [address] Procalcitoninon 09-01-2024 Procalcitonin 1.75 ng/mL High .00-.50 [facility] Comment on above: Order Comment: Add [...] to 24 hours. Performed By: #### 2 [id number] #### [facility] [address] [place] [address] Rapid COVID Antigen (MC)on 09-01-2024 Rapid COV Int NEG Ctl Pass Normal [facility] Comment on above: Performed By: #### 2 [id number] #### [facility] [address] [place] [address] Rapid COV Int POS Ctl Pass Normal [facility] Comment on above: Performed By: #### 2 [id number] #### [facility] [address] [place] [address] SARS-CoV+SARS-CoV-2 (COVID-19) Ag IA.rapid Ql (Resp) Not detected Normal Not Detected [facility] Comment on above: Result Comment: The [employer] Veritor??? System for Rapid Detection of SARS-CoV-2 is [...] or revoked sooner. Performed By: #### 2 [id number] #### [facility] [address] [place] [address] Troponin 0 Hr.on 09-01-2024 Troponin HS 8.00 pg/mL Low 10.10-27.10 [facility] Comment on above: Result Comment: The 95% CI (Confidence Interval) PPV (Positive Predictive Value) for myocardial infarction in females is 38 pg/mL, in males 51 pg/mL. The results should be used in conjunction with clinical conditions of myocardial infarction. (Access High Sensitivity Troponin I Instructions For Use, [employer], March 2018) Performed By: #### 1 [id number] #### [facility] [address] [place] [address] Troponin 1 Hr.on 09-01-2024 Troponin HS 5.80 pg/mL Low 10.10-27.10 [facility] Comment on above: Order Comment: due a t 022 Result Comment: The 95% CI (Confidence Interval) PPV (Positive Predictive Value) for myocardial infarction in females is 38 pg/mL, in males 51 pg/mL. The results should be used in conjunction with clinical conditions of myocardial infarction. (Access High Sensitivity Troponin I Instructions For Use, [employer], March 2018) Performed By: #### 1 [id number] #### [facility] [address] [place] [address] UA with Cult Rflxon 09-01-19 Type of Urine collection method Catheter Normal [facility] Comment on above: Result Comment: Test results were corrected for specicmen description. Performed By: #### 4 [id number] #### [facility] [address] [place] [address] Bilirubin Ql (U) Negative Normal Negative [facility] Comment on above: Performed By: #### 4 [id number] #### [facility] [address] [place] [address] Clarity (U) Clear Normal Clear [facility] Comment on above: Performed By: #### 4 [id number] #### [facility] [address] [place] [address] Color (U) Yellow Normal Yellow [facility] Comment on above: Result Comment: Micr oscopic readings are only performed on those samples that meet specific criteria set forth by [facility]. Performed By: #### 4 [id number] #### [facility] [address] [place] [address] Glucose Ql (U) Negative Normal Negative [facility] Comment on above: Performed By: #### 4 [id number] #### [facility] [address] [place] [address] Hemoglobin Auto test strip (U) [Mass/Vol] Negative Normal Negative [facility] Comment on above: Performed By: #### 4 [id number] #### [facility] [address] [place] [address] Ketones Auto test strip Ql (U) 3+ mg/dL Abnormal Negative [facility] Comment on above: Performed By: #### 4 [id number] #### [facility] [address] [place] [address] Leukocyte esterase Auto test strip Ql (U) Negative Normal Negative [facility] Comment on above: Performed By: #### 4 [id number] #### [facility] [address] [place] [address] Nitrite Auto test strip Ql (U) Negative Normal Negative [facility] Comment on above: Performed By: #### 4 [id number] #### [facility] [address] [place] [address] pH (U) 6.0 [pH] Invalid Interpretation Code 5.0-9.0 [facility] Comment on above: Performed By: #### 4 [id number] #### [facility] [address] [place] [address] Protein Ql (U) Trace Abnormal Negative [facility] Comment on above: Performed By: #### 4 [id number] #### [facility] [address] [place] [address] Specific gravity (U) [Rel density] 1.022 Invalid Interpretation Code 1.005-1.030 [facility] Comment on above: Performed By: #### 4 [id number] #### [facility] [address] [place] [address] Urobilinogen (U) [Mass/Vol] Negative Normal Negative [facility] Comment on above: Performed By: #### 4 [id number] #### [facility] [address] [place] [address] Type of Urine collection method Clean Catch Normal [facility] Comment on above: Performed By: #### 4 [id number] #### [facility] [address] [place] [address] URINALYSISOrdered By: SYSTEM SYSTEM on 09-01-2024 Bilirubin Ql (U) Negative Normal Negativemg/ d L [facility] UA Auto SS Clarity (U) Clear (09/01/24 1:29 AM) Normal Clear [facility] UA Auto SS Color (U) Yellow 3 (09/01/24 1:29 AM) Normal Yellow [facility] UA Auto SS Comment on above: Interpretive Data: M icroscopic readings are only performed on those samples that meet specific criteria set forth by [facility]. Glucose Ql (U) Negative Normal Negativemg/d [...] Desc Catheter 5 (09/01/24 1:29 AM) Normal [facility] UA Auto SS Comment on above: Result [...] REPORT Dictated: 09/01/2024 9:50 am Sachin Sosa MD Signed (Electronic Signature): 09/01/2024 9:50 am Signed by: Sachin Sosa MD Transcribed by: KG Technologist: KRISTIN Technical Comments Radiation Dose: Ka,r in mGy = 0 DAP = 0 Normal [facility] eGFRon 09-01-2024 eGFR 129 mL/min/1.73 m2 Normal >=59 [facility] Comment on above: Performed By: #### 1 [id number] #### [facility] [address] [place] [address] Strep B Culture (PCN Allergi c)on 08-31-2024 Strep B Culture (PCN Allergic) No Group B Beta Streptococcus Isolated 3 Days PERFORMED BY: [place] [address] PATHOLOGIST ON AIR ANNOUNCER PATIENCE RAE M.D. Normal [facility] Comment on above: Performed By: #### C USTB(PCN) #### [address] Urinalysis macro (dipstick) panel (U)on 08-31-2024 Bilirubin, UA Negative Negative - 4(70) +++ mg/dL [facility] Blood, UA Negative Negative - 50 Jorge/mcL [facility] Healthcare Clarity, UA Clear [facility] Color, UA Yellow [facility] Glucose, UA Negative Negative - 2000(110) ++++ mg/dL [facility] Interpretation and review of laboratory results Normal [facility] Ketones, UA Negative Negative - 160(16) ++++ mg/dL [facility] Leukocytes, UA Negative Negative - 500+++ Jose/mcL [facility] Nitrite, UA Negative Negative - Positive [facility] Healthcare pH, UA 6 5 - 9 [facility] Protein, UA Negative Negative - 1999(20) ++++ mg/dL [facility] Spec Grav, UA 1.02 1 - 1.03 [facility] Urobilinogen, UA 1.0 0.2 - 12 mg/dL [facility] Urinalysis macro (dipstick) panel (U)on 08-11-2024 Bilirubin, UA Negative Negative - 4(70) +++ mg/dL [facility] Blood, UA Negative Negative - 50 Jorge/mcL [facility] Clarity, UA Clear [facility] Color, UA Yellow [facility] Glucose, UA Negative Negative - 1999(110) ++++ mg/dL [facility] Interpretation and review of laboratory results Abnormal [facility] Ketones, UA Negative Negative - 160(16) ++++ mg/dL [facility] Leukocytes, UA Positive Negative - 500+++ Jose/mcL [facility] Comment on above: large Nitrite, UA Negative Negative - Positive [facility] pH, UA 5.5 5 - 9 [facility] Protein, UA Negative Negative - 1999(20) ++++ mg/dL [facility] Spec Grav, UA 1.015 1 - 1.03 [facility] Urobilinogen, UA 2.0 0.2 - 12 mg/dL [facility] C Urineon 07-28-2024 Bacteria identified Cx Nom [...] Locations R1: This test was performed at: [facility], [address] [place] [address], [id number] , [place], [facility] Comment on above: Performed By: #### 2 [id number] #### [facility] [address] [place] [address] ED Clinical Summaryon 2023 ED Clinical Summary ED Clinical Summary [address] [address] ED Clinical Summary Person Information Name: ROQUE PIERSON/[place] Age: 24 Years : 2000 Sex: Female Language: Argentine PCP: Ambrose Urbano MD Marital Status: Phone: [phone] Visit Id: Visit Reason: Headache; Vomiting; Nausea; [...] 07/25/2024 23:52:03 07/25/2024 23:52:03 07/25/2024 23:52:03 ADDRESS: [facility] [id number] PHYS DOC NOTES: MEDICAL INFORMATION: Prescriptions Given: New Medications [facility], [address], [place] [id number], [phone] cephalexin (Keflex 500 mg Cap) 1 Capsules By Mouth 3 times a day for 5 Days. Refills: 0. Medications to Continue Taking That Have Changed [facility], [address], [place] [id number], [phone] START: ondansetron (Zofran ODT 4 mg Tab-Dis) [...] EDUCATION INFORMATION: Instructions: Urinary Tract Infection, Adult, Fogg-xn-Xide; Nausea and Vomiting, Adult, Egxm-xp-Mynq; General Headache Without Cause, Kejl-ta-Pfwt Follow up: With: Address: When: Ambrose Urbano [address] [facility], [place] [address] Business (1) In 3 days 07/28/2024 Comments: Take the antibiotics as prescribed you have completed the course. Use nausea medication every 6 hours as needed for nausea and vomiting. You can use Tylenol every 6 hours as needed for pain. Please follow-up with your primary care doctor and PAIRER INSPECTOR for further evaluation management. Please return to the ED for any new or worsening symptoms. DIAGNOSIS: Acute UTI (urinary tract infection); Headache; N&V (nausea and vomiting) Normal [facility] ED Note-Physicianon 07-25-20 24 ED Note-Physician ED Note-Physician Basic Information [...] and Complexity of Problems Differential Diagnosis: [] [facility] Data External documents reviewed: [] My EKG [...] day(s), # 15 cap(s), Refills(s) 0, Pharmacy: [facility], 175, cm, 07/25/24 22:16:00 EST, Height/Length [...] q6hr, # 12 tab(s), Refills(s) 0, Pharmacy: [facility], 175, cm, 07/25/24 22:16:00 EST, Height/Length [...] Ambrose Urbano In 3 days 07/28/2024 EST [facility] [place] [address]- Business (1) Additional Instructions: Take the antibiotics as prescribed you have completed the course. U (more content not included)... Normal [facility] Comment on above: Result Comment: Elec tronically Signed By: Sissy Shah DO\.br\Date and Time Signed: 07/25/24 23:48 EST ED Patient Summaryon 024 ED Patient Summary ED Patient Summary [place] [id number] Patient Discharge Instructions Person Information Name: ROQUE PIERSON Age: 24 Years Arrival Date: 07/25/2024 22:08:42 Discharge Diagnosis: Acute UTI (urinary tract infection); Headache; N&V (nausea and vomiting) Primary Care Physician: Ambrose Urbano MD Provider Information Primary Provider: Sissy Shah DO Advanced Drip Molder:None The exam and treatment you received in the Emergency Department were for an urgent problem and are not intended as complete care. It is important that you follow up with a doctor, nurse practitioner, or physician???s diagnostic assistant for ongoing care. If your symptoms [...] Follow-up Instructions: With: Address: When: Ambrose Urbano [address] [place] [address], [place] [address] Business (1) In 3 days 07/28/2024 Comments: Take the antibiotics as prescribed you have completed the course. Use nausea medication every 6 hours as needed for nausea and vomiting. You can use Tylenol every 6 hours as needed for pain. Please follow-up with your primary care doctor and PAIRER INSPECTOR for further evaluation management. Please return to the ED for any new or worsening symptoms. In the event that this physician does not participate in your insurance network, please consult with your insurance company to find a nearby participating provider. Patient Education Materials: Urinary Tract Infection, Adult, Abuw-gp-Wvgq; Nausea and Vomiting, Adult, Zpkb-gb-Hrqw; General Headache Without Cause, Mqjs-os-Hppb A MESSAGE TO ALL PATIENTS REGARDING OPIOIDS PRESCRIPTION OPIOIDS: WHAT YOU NEED TO KNOW Prescription opioids can be used to help relieve btpantil-rn-frgelh pain and are often prescribed following a [...] of reach (more content not included)... Normal [facility] UA with Cult Rflxon 07-25-20 24 Bacteria Auto Ql (U) Trace Normal Trace [facility] Comment on above: Performed By: #### 4 [id number] #### [facility] [address] [place] [address] Bilirubin Ql (U) Negative Normal Negative [facility] Comment on above: Performed By: #### 4 [id number] #### [facility] [address] [place] [address] Clarity (U) Turbid Abnormal Clear [facility] Comment on above: Performed By: #### 4 [id number] #### [facility] [address] [place] [address] Color (U) Yellow Normal Yellow [facility] Comment on above: Result Comment: Micr oscopic readings are only performed on those samples that meet specific criteria set forth by [facility]. Performed By: #### 4 [id number] #### [facility] [address] [place] [address] Epithelial cells.squamous Auto (Urine sed) [#/Area] >10 Invalid Interpretation Code [facility] Comment on above: Performed By: #### 4 [id number] #### [facility] [address] [place] [address] Glucose Ql (U) Negative Normal Negative [facility] Comment on above: Performed By: #### 4 [id number] #### [facility] [address] [place] [address] Hemoglobin Auto test strip (U) [Mass/Vol] Negative Normal Negative [facility] Comment on above: Performed By: #### 4 [id number] #### [facility] [address] [place] [address] Hyaline casts LM Ql (Urine sed) 0-3 Normal 0-3 [facility] Comment on above: Performed By: #### 4 [id number] #### [facility] [address] [place] [address] Ketones Auto test strip Ql (U) 3+ mg/dL Abnormal Negative [facility] Comment on above: Performed By: #### 4 [id number] #### [facility] [address] [place] [address] Leukocyte esterase Auto test strip Ql (U) 500 Jose/uL Abnormal Negative [facility] Comment on above: Performed By: #### 4 [id number] #### [facility] [address] [place] [address] Mucus Auto Ql (U) 1+ CD:[id number] Abnormal Negative F [facility] Comment on above: Performed By: #### 4 [id number] #### [facility] [address] [place] [address] Nitrite Auto test strip Ql (U) Negative Normal Negative [facility] Comment on above: Performed By: #### 4 [id number] #### [facility] [address] [place] [address] pH (U) 5.5 [pH] Invalid Interpretation Code 5.0-9.0 [facility] Comment on above: Performed By: #### 4 [id number] #### [facility] [address] [place] [address] Protein Ql (U) Trace Abnormal Negative [facility] Comment on above: Performed By: #### 4 [id number] #### [facility] [address] [place] [address] RBC Ql (U) 4-20 Abnormal 0-3 [facility] Comment on above: Performed By: #### 4 [id number] #### [facility] [address] [place] [address] Specific gravity (U) [Rel density] 1.035 Invalid Interpretation Code 1.005-1.030 [facility] Comment on above: Performed By: #### 4 [id number] #### [facility] [address] [place] [address] Urobilinogen (U) [Mass/Vol] 2 mg/dL Abnormal Negative [facility] Comment on above: Performed By: #### 4 [id number] #### [facility] [address] [place] [address] WBC Auto (Urine sed) [#/Area] 31-75 Abnormal 0-5 [facility] Comment on above: Performed By: #### 4 [id number] #### [facility] [address] [place] [address] Type of Urine collection method Clean Catch Normal [facility] Comment on above: Performed By: #### 4 [id number] #### [facility] [address] [place] [address] URINALYSISOrdered By: SYSTEM SYSTEM on 07-25-2024 Bacteria Auto Ql (U) Trace /HPF Normal Trace/HPF [facility] UA Auto SS Bilirubin Ql (U) Negative Normal Negativemg/ d L [facility] [place]A Auto SS Clarity (U) Turbid *ABN* (07/25/24 10:35 PM) Invalid Interpretation Code Clear [facility] UA Auto SS Color (U) Yellow 1 (07/25/24 10:35 PM) Normal Yellow [facility] UA Auto SS Comment on above: Interpretive Data: M icroscopic readings are only performed on those samples that meet specific criteria set forth by [facility]. Epithelial cells.squamous Auto (Urine sed) [#/Area] [...] 3+ mg/dL Invalid Interpretation Code Negativemg/d L [facility] UA Auto SS Leukocyte esterase Auto test strip Ql (U) 500 Jose/uL Jose/uL Invalid Interpretation Code NegativeLeu/ uL [facility] UA Auto SS Mucus Auto Ql (U) 1+ graded/LPF Invalid Interpretation Code Negativegrad ed/LPF [facility] UA Auto SS Nitrite Auto test strip Ql (U) Negative Normal Negativemg/d L [facility] UA Auto SS pH (U) 5.5 *NA* (07/25/24 10:35 PM) Invalid Interpretation Code 5.0 - 9.0 [facility] UA Auto SS Protein Ql (U) Trace mg/dL Invalid Interpretation Code Negativemg/d L [facility] UA Auto SS RBC Ql (U) 4-20 graded/HPF Invalid Interpretation Code 0-3graded/HP F [facility] UA Auto SS Specific gravity (U) [Rel density] 1.035 *NA* (07/25/24 10:35 PM) Invalid Interpretation Code 1.005 - 1.030 [facility] UA Auto SS Urobilinogen (U) [Mass/Vol] 2 mg/dL Invalid Interpretation Code Negativemg/d L [facility] UA Auto SS WBC Auto (Urine sed) [#/Area] 31-75 graded/HPF Invalid Interpretation Code 0-5graded/HP F [facility] UA Auto SS URINALYSISOrdered By: Jena Shah on 07-25-2024 UA Spec Desc Clean Catch (07/25/24 10:35 PM) Normal [facility] UA Auto SS Work Phone: Urinalysis macro (dipstick) panel (U)on 07-12-2024 Bilirubin, UA Negative Negative - 4(70) +++ mg/dL [facility] Blood, UA Negative Negative - 50 Jorge/mcL [facility] Clarity, UA Clear [facility] Color, UA Yellow [facility] Glucose, UA Negative Negative - 2000(110) ++++ mg/dL [facility] Interpretation and review of laboratory results Abnormal [facility] Ketones, UA Negative Negative - 160(16) ++++ mg/dL [facility] Leukocytes, UA Positive Negative - 500+++ Jose/mcL [facility] Comment on above: small Nitrite, UA Negative Negative - Positive [facility] pH, UA 5.5 5 - 9 [facility] Protein, UA Negative Negative - 1999(20) ++++ mg/dL [facility] Spec Grav, UA 1.015 1 - 1.03 [facility] Urobilinogen, UA 0.2 0.2 - 12 mg/dL [facility] Urinalysis macro (dipstick) panel (U)on 06-28-2024 Bilirubin, UA Negative Negative - 4(70) +++ mg/dL [facility] Blood, UA Negative Negative - 50 Jorge/mcL [facility] Clarity, UA Clear [facility] Color, UA Yellow [facility] Glucose, UA Negative Negative - 1999(110) ++++ mg/dL [facility] Interpretation and review of laboratory results Abnormal [facility] Ketones, UA Negative Negative - 160(16) ++++ mg/dL [facility] Leukocytes, UA Positive Negative - 500+++ Jose/mcL [facility] Comment on above: small Nitrite, UA Negative Negative - Positive [facility] pH, UA 5.5 5 - 9 [facility] Protein, UA Negative Negative - 1999(20) ++++ mg/dL [facility] Spec Grav, UA 1.02 1 - 1.03 [facility] Urobilinogen, UA 0.2 0.2 - 12 mg/dL [facility] ALL CBC WITH AUTO DIFFon BASOPHILS ABSOLUTE AUTO 0 N [facility] Basophils/100 WBC (Bld) 0.6 % 0.2 - 2.0 % [facility] Eosinophils/100 WBC (Bld) 1.8 % 0.9 - 7.0 % [facility] Erythrocyte distribution width (RBC) [Ratio] 12.9 % 11.0 - 15.0 % [facility] Hematocrit (Bld) [Volume fraction] 28.6 % Low 36.0 - 48.0 % [facility] Hemoglobin (Bld) [Mass/Vol] 9.5 g/dL Low 12.0 - 16.0 g/dL [facility] IMMATURE GRANULOCYTES ABS AUTO 0.02 [facility] Immature granulocytes/100 WBC (Bld) 0.3 % 0.0 - 0.5 % [facility] Interpretation and review of laboratory results Abnormal [facility] LYMPHOCYTES ABSOLUTE AUTO 1.4 [facility] Lymphocytes/100 WBC (Bld) 22.8 % 20.5 - 60.0 % [facility] MCH (RBC) [Entitic mass] 29.6 pg 26. 7 - 34.0 pg [facility] MCHC (RBC) [Mass/Vol] 33.2 g/dL 29.9 - 35.2 g/dL [facility] MCV (RBC) [Entitic vol] 89.1 fL 81.0 - 99.0 fL [facility] MONOCYTES ABSOLUTE AUTO 0.5 N [facility] Monocytes/100 WBC (Bld) 8.3 % 1.7 - 12.0 % [facility] NEUTROPHILS ABSOLUTE AUTO 4.2 [facility] Neutrophils/100 WBC (Bld) 66.2 % 43.0 - 75.0 % [facility] Platelet mean volume (Bld) [Entitic vol] 9.9 fL 9.5 - 13.5 fL [facility] TBH EO # 0.1 [facility] TB PLT 222 [facility] RBC 3.21 Low [facility] WBC 6.3 [facility] Urinalysis macro (dipstick) panel (U)on 05-27-2024 Bilirubin, UA Negative Negative - 4(70) +++ mg/dL [facility] Blood, UA Negative Negative - 50 Jorge/mcL [facility] Clarity, UA Clear [facility] Color, UA Angelina [facility] Glucose, UA Negative Negative - 1999(110) ++++ mg/dL [facility] Interpretation and review of laboratory results Normal [facility] Ketones, UA Negative Negative - 160(16) ++++ mg/dL [facility] Leukocytes, UA Negative Negative - 500+++ Jose/mcL [facility] Nitrite, UA Negative Negative - Positive [facility] pH, UA 5.5 5 - 9 [facility] Protein, UA Negative Negative - 1999(20) ++++ mg/dL [facility] Spec Grav, UA 1.030 1 - 1.03 [facility] Urobilinogen, UA 0.2 0.2 - 12 mg/dL [facility] AFP, SERUM, OPEN SPINA BIFID Aon 05-01-2024 AFP MOM 1.93 . [facility] AFP VALUE 80.2 ng/mL . [facility] COMMENT: Comment . [facility] Comment on above: Sirisha Lopez , Ph.D., [facility] Director References: Available Upon Request. Multiples Of Median Cutoffs For AFP Elevations Contreras 2.5 Black 2.8 IDD 2.0 Twins 4.5 Abbreviation Definitions IDD - Insulin Dep Diabetes OSBR - Open Spina Bifida Risk For further inquiries contact [employer] [facility] [facility] at [phone]. This test was developed and its performance characteristics determined by [employer]. It has not been cleared or approved by the Food and Drug Administration. Performed at: [facility] [address] [place], [place] [id number] Satellite Technician: Elsa Faye [facility], Phone: [phone] GEST. AGE ON COLLECTION DATE 18.1 . weeks [facility] GESTAT. AGE BASED ON Ultrasound . [facility] Comment on above: 18.1 on 04/29/2024 Recalculations are not recommended when gestational dating by LMP and ultrasound are within 10 days. INSULIN DEP DIABETES No . [facility] INTERPRETATION Comment . [facility] Comment on above: Interpretation: Scre en Negative [...] Customer Services to discuss available options. The [employer] recommends amniocentesis be offered to women age 35 and older. [age] [place] [age] [facility] MULTIPLE GESTATION No . [facility] OSBR RISK 1 IN 943 . [facility] RACE . [facility] RESULTS Report . [facility] TEST RESULTS: Negative . [facility] WEIGHT 161 . lbs [facility] N N ULTRASOUND [id number] 1 18 N 1 Y 161 N N N N N White/ [facility] URETHRITIS/DISCHARGE PLUS VA GINITIS (HTRX)on 05-01-2024 ATOPOBIUM VAGINAE 18.833 Abnormal [facility] ATOPOBIUM VAGINAE Detected Abnormal [facility] BVAB 2,3 (BACTERIAL VAGINOSIS ASSOCIATED BACTERIA 2, 3); MOBILUNCUS SPP 0.000 [facility] BVAB 2,3 (BACTERIAL VAGINOSIS ASSOCIATED BACTERIA 2, 3); MOBILUNCUS SPP Not detected [facility] DYLAN ALBICANS, PARAPSILOSIS, TROPICALIS 0.000 [facility] DYLAN ALBICANS, PARAPSILOSIS, TROPICALIS Not detected [facility] DYLAN GLABRATA 0.000 [facility] DYLAN GLABRATA Not detected [facility] DYLAN KRUSEI 0.000 [facility] DYLAN KRUSEI Not detected [facility] CHLAMYDIA TRACHOMATIS 0.000 [facility] CHLAMYDIA TRACHOMATIS Not detected N [facility] GARDNERELLA VAGINALIS 0.000 [facility] GARDNERELLA VAGINALIS Not detected N [facility] Interpretation and review of laboratory results Abnormal [facility] MEGASPHAERA (TYPES 1, 2) 0.000 [facility] MEGASPHAERA (TYPES 1, 2) Not detected [facility] MYCOPLASMA GENITALIUM 0.000 [facility] MYCOPLASMA GENITALIUM Not detected N [facility] NEISSERIA GONORRHOEAE 0.000 [facility] NEISSERIA GONORRHOEAE Not detected N [facility] TRICHOMONAS VAGINALIS 0.000 [facility] TRICHOMONAS VAGINALIS Not detected N [facility] Urinalysis macro (dipstick) panel (U)on 04-29-2024 Bilirubin, UA Negative Negative - 4(70) +++ mg/dL [facility] Blood, UA Positive Negative - 50 Jorge/mcL [facility] Comment on above: trace-intact Clarity, UA Clear [facility] Color, UA Yellow [facility] Glucose, UA Negative Negative - 1999(110) ++++ mg/dL [facility] Interpretation and review of laboratory results Abnormal [facility] Ketones, UA Negative Negative - 160(16) ++++ mg/dL [facility] Leukocytes, UA Positive Negative - 500+++ Jose/mcL [facility] Comment on above: small Nitrite, UA Negative Negative - Positive [facility] pH, UA 6.5 5 - 9 [facility] Protein, UA Negative Negative - 1999(20) ++++ mg/dL [facility] Spec Grav, UA 1.015 1 - 1.03 [facility] Urobilinogen, UA 0.2 0.2 - 12 mg/dL [facility] ED Note-Physicianon 04-24-20 ED Note-Physician ED Note-Physician [...] 18 weeks . She does follow with PAIRER INSPECTOR. She has had no complications to date. [...] home to follow-up with her PCP and PAIRER INSPECTOR. Patient was encouraged to return to the [...] Julius CROCKETT In 3 days 04/26/[address] , [place] [address]- Business (1) Additional Instructions: Ambrose Urbano In 3 days 04/26/2024 EDT [address] [facility] [place] [address]- Business (1) Additional Instructions: Patient Education Abdominal [...] made to ensure accuracy, however, inadvertently computerized aerial gunner mistakes may be present. Appropriate healthcare PPE [...] (04/23/24 1 (more content not included)... Normal [facility] Comment on above: Result Comment: Elec [...] 2023 ED Clinical Summary ED Clinical Summary [place] [address] ED Clinical Summary Person Information Name: ROQUE PIERSON Maribel/[facility] Age: 23 Years : 2000 Sex: Female Language: Argentine PCP: Ambrose Urbano MD Marital Status: Phone: [phone] Visit Id: Visit Reason: Abdominal pain; Back [...] 12:06:37 04/23/2024 12:06:37 04/23/2024 12:06:37 ADDRESS: [id number] [facility] [id number] PHYS DOC NOTES: MEDICAL INFORMATION: Prescriptions Given: [...] Adult Follow up: With: Address: When: Julius KEIRA [facility], [address] [place] [address] , [place] [address] Business (1) In 3 days 04/26/2024 With: Address: When: Ambrose Urbano [address] [place] [address], [facility] [place] [address] Business (1) In 3 days 04/26/2024 DIAGNOSIS: Abdominal pain Normal [facility] ED Patient Summaryon 024 ED Patient Summary ED Patient Summary [address] [address] Patient Discharge Instructions Person Information Name: ROQUE PIERSON Age: 23 Years Arrival Date: 04/23/2024 09:36:31 Discharge Diagnosis: Abdominal pain Primary Care Physician: Ambrose Urbano MD Provider Information Primary Provider: Anu Ziegler, Alfredito Hoang Advanced Drip Molder:Eagle Hawk PA-C The exam and treatment you received in the Emergency Department were for an urgent problem and are not intended as complete care. It is important that you follow up with a doctor, nurse practitioner, or physician?s diagnostic assistant for ongoing care. If your symptoms [...] Follow-up Instructions: With: Address: When: Julius CROCKETT [facility], [address] [place] [address] , [place] [address] Business (1) In 3 days 04/26/2024 With: Address: When: Ambrose Urbano [address] [facility], [facility] [place] [address] Business (1) In 3 days 04/26/2024 In the event that this physician does not participate in your insurance network, please consult with your insurance company to find a nearby participating provider. Patient Education Materials: Abdominal Pain, Adult A MESSAGE TO ALL PATIENTS REGARDING OPIOIDS PRESCRIPTION OPIOIDS: WHAT YOU NEED TO KNOW Prescription opioids can be used to help relieve oudyhaza-vh-wxwzoh pain and are often prescribed following a [...] and overdose (more content not included)... Normal [facility] HEMATOLOGYOrdered By: SYSTEM SYSTEM on 04-23-2024 Basophils/100 [...] L [facility]A Auto SS Clarity (U) Clear (04/23/24 10:23 AM) Normal Clear [facility] UA Auto SS Color (U) Light-Yellow 1 (04/23/24 10:23 AM) Normal Yellow [facility]A Auto SS Comment on above: Interpretive Data: M icroscopic readings are only performed on those samples that meet specific criteria set forth by [facility]. Glucose Ql (U) Negative Normal Negativemg/d L [facility] UA Auto SS Hemoglobin Auto test strip (U) [Mass/Vol] Negative Normal Negativemg/d L [facility] UA Auto SS Ketones Auto test strip Ql (U) Negative Normal Negativemg/d L [facility] UA Auto SS Leukocyte esterase Auto test strip Ql (U) Negative Normal NegativeLeu/ uL [facility]A Auto SS Nitrite Auto test strip Ql (U) Negative Normal Negativemg/d L [facility] UA Auto SS pH (U) 5.5 *NA* (04/23/24 10:23 AM) Invalid Interpretation Code 5.0 - 9.0 [facility] UA Auto SS Protein Ql (U) Negative Normal Negativemg/d L [facility] UA Auto SS Specific gravity (U) [Rel density] 1.013 *NA* (04/23/24 10:23 AM) Invalid Interpretation Code 1.005 - 1.030 [facility] UA Auto SS Urobilinogen (U) [Mass/Vol] Negative Normal Negativemg/d L [facility] UA Auto SS URINALYSISOrdered By: Eagle Hawk on 04-23-2024 UA Spec Desc Clean Catch (04/23/24 10:23 AM) Normal [facility] UA Auto SS Work Phone: eGFRon 04-23-2024 eGFR 135 mL/min/1.73 m2 Normal >=59 [facility] Comment on above: Order Comment: Order added by Discern Expert. Performed By: #### 1 [id number] #### [facility] [address] [place] [address] CBC with Diffon 02-01-2024 Abs. Basophil 0.02 k/uL Normal 0.00-0.20 [facility] Comment on above: Performed By: #### C PODALYS, CDP #### [facility] [address] [place] [address] Satellite Technician: Alfred Chirinos MD Abs.Imm.Granulocyte 0.01 k/uL Normal 0.00-0.30 [facility] Comment on above: Performed By: #### C PODALYS, CDP #### [facility] [address] [place] [id number] Satellite Technician: Alfred Chirinos MD Abs.Neutrophil (Seg) 3.51 k/uL Normal 2.5-7.0 [facility] Comment on above: Performed By: #### C PODALYS, CDP #### [facility] [address] [id number] Satellite Technician: Alfred Chirinos MD Basophils/100 WBC (Bld) 0 % Normal 0-2 [facility] [place] [facility] Comment on above: Performed By: #### C PODALYS, CDP #### [facility] [address] [place] [address] Satellite Technician: Alfred Chirinos MD Eosinophils (Bld) [#/Vol] 0.72 10*3/uL High 0.00-0.40 [facility] Comment on above: Performed By: #### C PODALYS, CDP #### [facility] [address] [place] [address] Satellite Technician: Alfred Chirinos MD Eosinophils/100 WBC (Bld) 11 % High 0-5 [facility] Comment on above: Performed By: #### C PDEVONCJessy, CDP #### [facility] [address] [place] [address] Satellite Technician: Alfred Chirinos MD Erythrocyte distribution width (RBC) [Ratio] 13.4 % Normal 12.1-15.2 [facility] Comment on above: Performed By: #### C P BHCG, CDP #### [facility] [address] [place] [address] Satellite Technician: Alfred Chirinos MD Hematocrit (Bld) [Volume fraction] 36.3 % Normal 36.0-46.0 [facility] Comment on above: Performed By: #### C P BHCG, CDP #### [facility] [address] [place] [address] Satellite Technician: Alfred Chirinos MD Hemoglobin (Bld) [Mass/Vol] 12.0 g/dL Normal 12.0-16.0 [facility] Comment on above: Performed By: #### C P BHCG, CDP #### [facility] [address] [place] [address] Satellite Technician: Alfred Chirinos MD Immature granulocytes/100 WBC (Bld) 0 % Normal 0-5 [facility] Comment on above: Performed By: #### C PODALYS, CDP #### [facility] [address] [place] [address] Satellite Technician: Alfred Chirinos MD Lymphocytes (Bld) [#/Vol] 1.80 10*3/uL Normal 1.00-4.80 [facility] Comment on above: Performed By: #### C P BHCG, CDP #### [facility] [address] [place] [address] Satellite Technician: Alfred Chirinos MD Lymphocytes/100 WBC (Bld) 27 % Normal 15-40 [facility] Comment on above: Performed By: #### C P BHCG, CDP #### [facility] [address] [place] [address] Satellite Technician: Alfred Chirinos MD MCH (RBC) [Entitic mass] 28.0 pg Normal 26.0-34.0 [facility] Comment on above: Performed By: #### C PODALYS, CDP #### [facility] [address] [place] [address] Satellite Technician: Alfred Chirinos MD MCHC (RBC) [Mass/Vol] 33.1 g/dL Normal 31.0-37.0 [facility] Comment on above: Performed By: #### C ODALYS Du, CDP #### [facility] [address] [place] [address] Satellite Technician: Alfred Chirinos MD MCV (RBC) [Entitic vol] 84.8 fL Normal 80.0-100.0 [facility] [place] [facility] Comment on above: Performed By: #### C ODALYS Du, CDP #### [facility] [address] [place] [address] Satellite Technician: Alfred Chirinos MD Monocytes (Bld) [#/Vol] 0.59 10*3/uL Normal 0.00-1.00 [facility] Comment on above: Performed By: #### ODALYS Dave, CDP #### [facility] [address] [place] [address] Satellite Technician: Alfred Chirinos MD Monocytes/100 WBC (Bld) 9 % High 4-8 M [facility] Comment on above: Performed By: #### ODALYS Dave, CDP #### [facility] [address] [place] [address] Satellite Technician: Alfred Chirinos MD Neutrophil (Seg) 53 % Normal 47-75 [facility] Comment on above: Performed By: #### Abdulaziz PODALYS, CDP #### [facility] [address] [place] [address] Satellite Technician: Alfred Chirinos MD Platelet mean volume (Bld) [Entitic vol] 10.0 fL Normal 6.0-12.0 [facility] Comment on above: Performed By: #### C P, BHCG, CDP #### [facility] [address] [place], [place] [phone] (485) Satellite Technician: Alfred Chirinos MD Platelets (Bld) [#/Vol] 256 10*3/uL Normal 140-450 [facility] Comment on above: Performed By: #### C P, BHCG, CDP #### [facility] [address] [place], [place] [phone] (231) Satellite Technician: Alfred Chirinos MD RBC (Bld) [#/Vol] 4.28 10*6/uL Normal 4.00-5.20 [facility] Comment on above: Performed By: #### C P, BHCG, CDP #### [facility] [address] [place] [address] (133) Satellite Technician: Alfred Chirinos MD WBC (Bld) [#/Vol] 6.7 10*3/uL Normal 3.5-11.0 [facility] Comment on above: Performed By: #### C P BHCG, CDP #### [facility] [address] [place] [address] (877) Satellite Technician: Alfred Chirinos MD Comp Metabolic Profon 2023 Albumin [Mass/Vol] 4.3 g/dL Normal 3.5-5.2 [facility] Comment on above: Performed By: #### C P, BHCG, CDP #### [facility] [address] [place], [place] [phone] (052) Satellite Technician: Alfred Chirinos MD Alkaline Phos 77 U/L Normal 35-104 [facility] Comment on above: Performed By: #### C P, BHCG, CDP #### [facility] [address] [place], [place] [phone] (399) Satellite Technician: Alfred Chirinos MD ALT [Catalytic activity/Vol] 15 U/L Normal 5-33 [facility] Comment on above: Performed By: #### C P, BHCG, CDP #### [facility] [address] [place], [place] [phone] Satellite Technician: Alfred Chirinos MD Anion gap [Moles/Vol] 13 mmol/L Normal 9-17 [facility] Comment on above: Performed By: #### C P, BHCG, CDP #### [facility] [address] [place], [place] [phone] Satellite Technician: Alfred Chirinos MD AST [Catalytic activity/Vol] 19 U/L Normal <32 [facility] Comment on above: Performed By: #### C P, BHCG, CDP #### [facility] [address] [place], [place] [phone] Satellite Technician: Alfred Chirinos MD Bilirubin [Mass/Vol] 0.3 mg/dL Normal 0.3-1.2 [facility] Comment on above: Performed By: #### C P, BHCG, CDP #### [facility] [address] [place], [place] [phone] Satellite Technician: Alfred Chirinos MD BUN/CRE Ratio 10 Normal 9-20 [facility] Comment on above: Performed By: #### C P, BHCG, CDP #### [facility] [address] [place], [place] [phone] Satellite Technician: Alfred Chirinos MD Calcium [Mass/Vol] 9.2 mg/dL Normal 8.6-10.4 [facility] Comment on above: Performed By: #### C P, BHCG, CDP #### [facility] [address] [place], [place] [phone] Satellite Technician: Alfred Chirinos MD Chloride [Moles/Vol] 104 mmol/L Normal 98-107 [facility] Comment on above: Performed By: #### C P, BHCG, CDP #### [facility] [address] [place], [place] [phone] Satellite Technician: Alfred Chirinos MD CO2 [Moles/Vol] 21 mmol/L Normal 20-31 [facility] Comment on above: Performed By: #### C DEVON DuCG, CDP #### [facility] [address] [place], [place] [phone] Satellite Technician: Alfred Chirinos MD Creatinine [Mass/Vol] 0.6 mg/dL Normal 0.5-0.9 [facility] Comment on above: Performed By: #### C ODALYS Du, CDP #### [facility] [address] [place] [address] Satellite Technician: Alfred Chirinos MD GFR/1.73 sq M.predicted among non-blacks MDRD (S/P/Bld) [Vol rate/Area] mL/min/{1.73_m2} Normal >60 [facility] Comment on above: Result Comment: These [...] renal tubular secretion. Performed By: #### C ODALYS Du, CDP #### [facility] [address] [place], [place] 1154[address] Satellite Technician: Alfred Chirinos MD Glucose [Mass/Vol] 103 mg/dL High 70-99 [facility] Comment on above: Performed By: #### C DEVON DuCJessy, CDP #### [facility] [address] [place], [place] 21404[address] Satellite Technician: Alfred Chirinos MD Potassium [Moles/Vol] 4.0 mmol/L Normal 3.7-5.3 [facility] Comment on above: Performed By: #### C P BHCG, CDP #### [facility] [address] [place], [place] [id number] Satellite Technician: Alfred Chirinos MD Protein [Mass/Vol] 7.2 g/dL Normal 6.4-8.3 [facility] Comment on above: Performed By: #### C P BHCG, CDP #### [facility] [address] [place], [place] [phone] Satellite Technician: Alfred Chirinos MD Sodium [Moles/Vol] 138 mmol/L Normal 135-144 [facility] Comment on above: Performed By: #### C PDEVONCG, CDP #### [facility] [address] [place] [address] Satellite Technician: Alfred Chirinos MD Urea nitrogen [Mass/Vol] 6 mg/dL Normal 6-20 [facility] Comment on above: Performed By: #### C P BHCG, CDP #### [facility] [address] [place] [address] Satellite Technician: Alfred Chirinos MD HCG, Quanton 02-01-2024 HCG, Quant 6123.0 mIU/mL High <5 [facility] Comment on above: Result Comment: Non-preg premeno <=5 Postmeno <=8 Male <=3 If HCG results do not concur with clinical observations, additional testing to confirm results is recommended. Performed By: #### C P, BHCG, CDP #### [facility] [address] [place], [place] [id number] Satellite Technician: Alfred Chirinos MD Urinalysis, Routineon 2023 Bilirubin, SemiQt,Ur Negative Normal NEG [facility] Comment on above: Performed By: #### U A #### [facility] [address] [place] [address] Satellite Technician: Alfred Chirinos MD Blood, Urine Negative Normal NEG [facility] Comment on above: Performed By: #### U A #### [facility] [address] [place], [place] [phone] Satellite Technician: Alfred Chirinos MD Clarity (U) Clear Normal CLEAR [facility] Comment on above: Performed By: #### U A #### [facility] [address] [place], [place] [phone] Satellite Technician: Alfred Chirinos MD Color (U) Yellow Normal YEL [facility] Comment on above: Performed By: #### U A #### [facility] [address] [place] [address] Satellite Technician: Alfred Chirinos MD Comment Normal [facility] Comment on above: Performed By: #### U A #### [facility] [address] [place], [place] [phone] Satellite Technician: Alfred Chirinos MD Glucose Ql (U) Negative Normal NEG [facility] Comment on above: Performed By: #### U A #### [facility] [address] [place] [address] Satellite Technician: Alfred Chirinos MD Ketones Ql (U) Negative Normal NEG [facility] Comment on above: Performed By: #### U A #### [facility] [address] [place], [place] [phone] Satellite Technician: Alfred Chirinos MD Leukocyte esterase Test strip Ql (U) Negative Normal NEG [facility] Comment on above: Performed By: #### U A #### [facility] [address] [place] [address] Satellite Technician: Alfred Chirinos MD Nitrite,Ur Negative Normal NEG [facility] Comment on above: Performed By: #### U A #### [facility] [address] [place] [address] Satellite Technician: Alfred Chirinos MD PH,Ur 7.0 Normal 5.0-8.0 [facility] Comment on above: Performed By: #### U A #### [facility] [address] [place], [place] [phone] Satellite Technician: Alfred Chirinos MD Protein Ql (U) Negative Normal NEG [facility] Comment on above: Performed By: #### U A #### [facility] [address] [place], [place] [phone] Satellite Technician: Alfred Chirinos MD Spec. [place],Ur 1.010 Normal 1.005-1.030 [facility] Comment on above: Performed By: #### U A #### [facility] [address] [place], [place] [phone] Satellite Technician: Alfred Chirinos MD Urobilinogen,Ur Normal Normal 0.0-1.0 [facility] Comment on above: Performed By: #### U A #### [facility] [address] [place] [address] Satellite Technician: Alfred Chirinos MD Cult,Urineon 12-15-2023 Cult,Urine Specimen Description .URINE, MIDSTREAM Culture NO SIGNIFICANT GROWTH Report Status FINAL 12/15/2023 Normal [facility] Comment on above: Performed By: #### U RC #### [facility] [address] [place], [place] [phone] Satellite Technician: Kiko Ortega MD [facility] [address] [place] [address] Satellite Technician: Alfred Chirinos MD Urinalysis, Routineon 2023 Bilirubin, SemiQt,Ur Negative Normal NEG [facility] Comment on above: Performed By: #### U A, UMICAO #### [facility] [address] [place] [address] Satellite Technician: Alfred Chirinos MD Blood, Urine Negative Normal NEG [facility] Comment on above: Performed By: #### U A, UMICAO #### [facility] [address] [place] [address] Satellite Technician: Alfred Chirinos MD Clarity (U) Clear Normal CLEAR [facility] Comment on above: Performed By: #### U A, UMICAO #### [facility] [address] [place] [address] Satellite Technician: Alfred Chirinos MD Color (U) Yellow Normal YEL [facility] Comment on above: Performed By: #### U A, UMICAO #### [facility] [address] [place] [address] Satellite Technician: Alfred Chirinos MD Comment Normal [facility] Comment on above: Performed By: #### U A, UMICAO #### [facility] [address] [place] [address] Satellite Technician: Alfred Chirinos MD Glucose Ql (U) Negative Normal NEG [facility] Comment on above: Performed By: #### U A, UMICAO #### [facility] [address] [place] [address] Satellite Technician: Alfred Chirinos MD Ketones Ql (U) Negative Normal NEG [facility] Comment on above: Performed By: #### U A, UMICAO #### [facility] [address] [place] [address] Satellite Technician: Alfred Chirinos MD Leukocyte esterase Test strip Ql (U) 2+ Abnormal NEG [facility] Comment on above: Performed By: #### U A, UMICAO #### [facility] [address] [place] [address] Satellite Technician: Alfred Chirinos MD Nitrite,Ur Negative Normal NEG [facility] Comment on above: Performed By: #### U A, UMICAO #### [facility] [address] [place] [address] Satellite Technician: Alfred Chirinos MD PH,Ur 6.0 Normal 5.0-8.0 [facility] Comment on above: Performed By: #### U A, UMICAO #### [facility] [address] [place] [address] Satellite Technician: Alfred Chirinos MD Protein Ql (U) TRACE Abnormal NEG [facility] Comment on above: Performed By: #### U A, UMICAO #### [facility] [address] [place] [address] Satellite Technician: Alfred Chirinos MD Spec. [place],Ur 1.015 Normal 1.005-1.030 [facility] Comment on above: Performed By: #### U A, UMICAO #### [facility] [address] [place] [address] Satellite Technician: Alfred Chirinos MD Urobilinogen,Ur Normal Normal 0.0-1.0 [facility] Comment on above: Performed By: #### U A, UMICAO #### [facility] [address] [place] [address] Satellite Technician: Alfred Chirinos MD Urinalysis,Microon 4 ----- Normal [facility] Comment on above: Performed By: #### U A, UMICAO #### [facility] [address] [place] [address] Satellite Technician: Alfred Chirinos MD Epithelial cells LM Ql (Urine sed) 0 TO 2 Normal [facility] Comment on above: Performed By: #### U A, UMICAO #### [facility] [address] [place] [id number] Satellite Technician: Alfred Chirinos MD Urine RBC's 0 TO 2 Normal 0-2 [facility] Comment on above: Performed By: #### U A, UMICAO #### [facility] [address] [place], [place] [address] Satellite Technician: Alfred Chirinos MD Urine WBC's 2 TO 5 Normal 0 [facility] Comment on above: Performed By: #### U A, UMICAO #### [facility] [address] [place] [address] Satellite Technician: Alfred Chirinos MD Aramis 11-14-2023 L Specimen: [id number] Received: 11/17/23 Status: SAEED Elizondo Num: [id number] Spec Type: Surgical Subm Dr: Julius Crockett Tissues: A Products of Conception - Spontaneous or Missed (POC) Procedures: HE/3, Gross/Micro L4 Age/ Patient Sex Location Account Attending Physician Roque Pierson LABELL [id number] Julius Crockett SPEC NUM: [id number] RECD: 11/17/23 STATUS: SAEED ELIZONDO NUM: [id number] IAN: 11/14/[address]: Julius Crockett ENTERED: 11/17/[address] [facility] [address]: Kelly Chakraborty SPEC TYPE: Surgical DEPT: [...] are identified. Membranes and decidua are identified.. Website Project Manager sections are submitted in three cassettes labeled A1-A3. CPT Codes 99741 Specimen: [id number] Received: 11/17/23 Status: SAEED Uriel Num: [id number] Spec Type: Surgical Subm Dr: Julius Crockett Tissues: A Products of Conception - Spontaneous or Missed (POC) Procedures: HE/3, [place] L4 Patient: Roque Pierson [id number] (Continued) Signed (signature on file) Patience Rae MD 11/18/23 2036 Normal [facility] Auto Diffon 06-05-2023 Basophils/100 WBC (Bld) 0.7 % Normal 0.0-2.0 F [facility] Comment on above: Order Comment: Order Added by Discern Expert. Result Comment: Ian ection date/time has been modified to: 16:41:00. Previous collection date/time: 16:48:00. Performed By: #### 2 [id number], [id number], [id number], [id number] ####[facility] [id number] [place] [address] Basophils/Leukocytes Auto (Bld) [Pure # fraction] 0.0 E9/L Normal 0.0-0.2 [facility] Comment on above: Order Comment: Order Added by Discern Expert. Result Comment: Ian ection date/time has been modified to: 16:41:00. Previous collection date/time: 16:48:00. Performed By: #### 2 [id number], [id number], [id number], [id number] ####[id number] [place] [address] Eosinophils/100 WBC (Bld) 1.0 % Normal 0.0-8.0 [facility] Comment on above: Order Comment: Order Added by Discern Expert. Result Comment: Ian ection date/time has been modified to: 16:41:00. Previous collection date/time: 16:48:00. Performed By: #### 2 [id number], [id number], [id number], [id number] ####[address] [place] [address] Eosinophils/Leukocytes Auto (Bld) [Pure # fraction] 0.1 E9/L Normal 0.0-0.5 [facility] Comment on above: Order Comment: Order Added by Discern Expert. Result Comment: Ian ection date/time has been modified to: 16:41:00. Previous collection date/time: 16:48:00. Performed By: #### 2 [id number], [id number], [id number], [id number] ####[address] [place] [address] Lymphocytes/100 WBC (Bld) 19.4 % Normal 14.0-50.0 [facility] Comment on above: Order Comment: Order Added by Discern Expert. Result Comment: Ian ection date/time has been modified to: 16:41:00. Previous collection date/time: 16:48:00. Performed By: #### 2 [id number], [id number], [id number], [id number] ####[facility] [id number] [place] [address] Lymphocytes/Leukocytes Auto (Bld) [Pure # fraction] 1.2 E9/L Normal 1.0-4.0 [facility] Comment on above: Order Comment: Order Added by Discern Expert. Result Comment: Ian ection date/time has been modified to: 16:41:00. Previous collection date/time: 16:48:00. Performed By: #### 2 [id number], [id number], [id number], [id number] ####[address] [place], [place] [address] Monocytes/100 WBC (Bld) 8.8 % Normal 4.0-14.0 [facility] Comment on above: Order Comment: Order Added by Discern Expert. Result Comment: Ian ection date/time has been modified to: 16:41:00. Previous collection date/time: 16:48:00. Performed By: #### 2 225029, 61783552, 3488020, 9021232 ####[facility] [address] [place] [address] Monocytes/Leukocytes Auto (Bld) [Pure # fraction] 0.5 E9/L Normal 0.2-1.0 [facility] Comment on above: Order Comment: Order Added by Discern Expert. Result Comment: Ian ection date/time has been modified to: 16:41:00. Previous collection date/time: 16:48:00. Performed By: #### 2 242461, 43336926, 7150601, 5502757 ####[facility] [address] [place] [address] Neutrophils/100 WBC (Bld) 70.1 % Normal 36.0-75.0 [facility] Comment on above: Order Comment: Order Added by Discern Expert. Result Comment: Ian ection date/time has been modified to: 16:41:00. Previous collection date/time: 16:48:00. Performed By: #### 2 097380, 87372528, 2247543, 9833508 ####[facility] [address] [place] [address] Neutrophils/Leukocytes Auto (Bld) [Pure # fraction] 4.2 E9/L Normal 2.0-7.5 [facility] Comment on above: Order Comment: Order Added by Discern Expert. Result Comment: Ian ection date/time has been modified to: 16:41:00. Previous collection date/time: 16:48:00. Performed By: #### 2 880970, 73737187, 1655082, 8039330 ####[facility] [address] [place] [address] BMPon 06-05-2023 Creatinine [Mass/Vol] 0.7 mg/dL Normal 0.5-1.3 [facility] Comment on above: Performed By: #### 2 152912, 44975683, 3261483, 2509378 ####[facility] [address] [place] [address] Urea nitrogen [Mass/Vol] 5 mg/dL Normal 5-21 [facility] Comment on above: Performed By: #### 2 443636, 83381148, 7936713, 2451537 ####[facility] [address] [place] [address] Urea nitrogen/Creatinine [Mass ratio] 7 No Units Low 10-20 [facility] Comment on above: Performed By: #### 2 760491, 91924765, 3509505, 1921419 ####[facility] [address] [place] [address] Anion gap [Moles/Vol] 9 mmol/L Normal 6-16 [facility] Comment on above: Performed By: #### 2 311235, 80273890, 2392230, 6388466 ####[facility] [address] [place] [address] Calcium [Mass/Vol] 9.3 mg/dL Normal 8.9-11.1 [facility] Comment on above: Performed By: #### 2 346690, 09568979, 1965635, 1175091 ####[facility] [address] [place] [address] Chloride [Moles/Vol] 110 mmol/L Normal 101-111 [facility] Comment on above: Performed By: #### 2 716466, 23899785, 9400045, 5634314 ####[facility] [address] [place] [address] CO2 [Moles/Vol] 26 mmol/L Normal 21-31 [facility] Comment on above: Performed By: #### 2 107486, 82537092, 5231565, 4949718 ####[facility] [address] [place] [address] Glucose [Mass/Vol] 106 mg/dL Normal 55-199 [facility] Comment on above: Result Comment: If t his glucose result represents a fasting glucose, interpretation should refer to the following reference range: 55-99 mg/dL Performed By: #### 2 969286, 17034506, 9785345, 9784362 ####[facility] [address] [place] [address] Potassium [Moles/Vol] 3.9 mmol/L Normal 3.5-5.3 [facility] Comment on above: Performed By: #### 2 871244, 85784260, 3935521, 6582604 ####[facility] [address] [place] [address] Sodium [Moles/Vol] 141 mmol/L Normal 135-145 [facility] Comment on above: Performed By: #### 2 937600, 49657068, 3537231, 1251120 ####[facility] [address] [place] [address] CBC w/ Auto Diffon 3 Erythrocyte distribution width (RBC) [Ratio] 13.9 % Normal 10.9-14.2 [facility] Comment on above: Result Comment: Ian ection date/time has been modified to: 16:41:00. Previous collection date/time: 16:48:00. Performed By: #### 2 575004, 69772504, 3831068, 9343763 ####[facility] [address] [place] [address] Hematocrit (Bld) [Volume fraction] 38.4 % Normal 34.0-46.0 [facility] Comment on above: Result Comment: Ian ection date/time has been modified to: 16:41:00. Previous collection date/time: 16:48:00. Performed By: #### 2 489780, 77841133, 1804093, 6565302 ####[facility] [address] [place] [address] Hemoglobin (Bld) [Mass/Vol] 12.8 g/dL Normal 12.0-16.0 [facility] Comment on above: Result Comment: Ian ection date/time has been modified to: 16:41:00. Previous collection date/time: 16:48:00. Performed By: #### 2 203011, 76883427, 3505908, 6855495 ####[facility] [address] [place] [address] MCH (RBC) [Entitic mass] 27.6 pg Normal 27.0-34.0 [facility] Comment on above: Result Comment: Ian ection date/time has been modified to: 16:41:00. Previous collection date/time: 16:48:00. Performed By: #### 2 809101, 66142200, 5073838, 0647632 ####[facility] [address] [place] [address] MCHC (RBC) [Mass/Vol] 33.3 g/dL Normal 31.4-36.0 [facility] Comment on above: Result Comment: Ian ection date/time has been modified to: 16:41:00. Previous collection date/time: 16:48:00. Performed By: #### 2 456994, 56530253, 1556423, 0322636 ####[facility] [address] [place] [address] MCV (RBC) [Entitic vol] 82.7 fL Normal 80.0-100.0 F [facility] Comment on above: Result Comment: Ian ection date/time has been modified to: 16:41:00. Previous collection date/time: 16:48:00. Performed By: #### 2 185879, 13828118, 9566272, 7168690 ####[facility] [address] [place] [address] Platelet mean volume (Bld) [Entitic vol] 7.8 fL Normal 6.4-10.8 [facility] Comment on above: Result Comment: Ian ection date/time has been modified to: 16:41:00. Previous collection date/time: 16:48:00. Performed By: #### 2 606536, 15432248, 0060228, 6348005 ####[facility] [address] [place] [address] Platelets (Bld) [#/Vol] 271.0 E9/L Normal 150.0-500.0 [facility] Comment on above: Result Comment: Ian ection date/time has been modified to: 16:41:00. Previous collection date/time: 16:48:00. Performed By: #### 2 726259, 67850287, 0054085, 2617748 ####[facility] [address] [place] [address] RBC (Bld) [#/Vol] 4.6 E12/L Normal 4.3-5.9 [facility] Comment on above: Result Comment: Ian ection date/time has been modified to: 16:41:00. Previous collection date/time: 16:48:00. Performed By: #### 2 534361, 05582074, 5273540, 4859783 ####[facility] [address] [place] [address] WBC corrected for nucl RBC Auto (Bld) [#/Vol] 6.1 E9/L Normal 4.0-11.0 [facility] Comment on above: Result Comment: Ian ection date/time has been modified to: 16:41:00. Previous collection date/time: 16:48:00. Performed By: #### 2 638279, 99349105, 1442577, 6905314 ####[facility] [address] [place] [address] CHEMISTRYOrdered By: SYSTEM SYSTEM on 06-05-2023 Anion gap [Moles/Vol] 9 mmol/L Normal 6 - 16 mEq/L [facility] Calcium [Mass/Vol] 9.3 mg/dL Normal 8.9 - 11. 1 mg/dL FT [facility] Chloride [Moles/Vol] 110 mmol/L Normal 101 - 1 11 mmol/L [facility] CO2 [Moles/Vol] 26 mmol/L Normal 21 - 31 mmol/L [facility] Creatinine [Mass/Vol] 0.7 mg/dL Normal 0.5 - 1.3 mg/dL [facility] GFR/1.73 sq M.predicted among non-blacks MDRD (S/P/Bld) [Vol rate/Area] 126 mL/min/1.73 m2 Normal >=59mL/min/1 .73 m2 [facility] S Comment on above: Interpretive Data: C hronic kidney disease could be indicated at eGFR's of less than 60 mL/min/1.73m2. Kidney failure is indicated at less than 15 mL/min/1.73m2. Glucose [Mass/Vol] 106 mg/dL Normal 55 - 199 mg/dL [facility] Comment on above: Interpretive Data: I f this glucose result represents a fasting glucose, interpretation should refer to the following reference range: 55-99 mg/dL Potassium [Moles/Vol] 3.9 mmol/L Normal 3.5 - 5.3 mmol/L [facility] Sodium [Moles/Vol] 141 mmol/L Normal 135 - 145 mmol/L [facility] Urea nitrogen [Mass/Vol] 5 mg/dL Normal 5 - 21 mg/d L [facility] Urea nitrogen/Creatinine [Mass ratio] 7 mg/mg [...] DO Transcribed by: KG Technologist: KIRSTIE Andrea [facility] Consent for Treatmenton 05-25 Consent for Treatment [id number] #1.00TIFF [facility] Discharge Instructionson Discharge Instructions [id number] #1.00TIFF Normal [facility] ED Clinical Summaryon 2022 ED Clinical Summary [place] [id number] ED Clinical Summary Person Information [facility]: [facility] Age: 22 Years : 2000 Sex: Female Language: Argentine PCP: Ambrose Urbano MD Marital Status: Single [...] 06/05/2023 18:41:46 06/05/2023 18:41:46 06/05/2023 18:41:46 ADDRESS: [address] [place] [id number] PHYS DOC NOTES: MEDICAL INFORMATION: Prescriptions Given: [...] Follow up: With: Address: When: Ambrose Urbano [address] [place] [address], [address] [place] [id number] Business (1) In 3 days 06/08/2023 Comments: [...] or worsening symptoms. DIAGNOSIS: Headache; Nauseous Normal [facility] ED Note-Physicianon 06-05-20 ED Note-Physician Basic [...] and Complexity of Problems Differential Diagnosis: [] [facility] Data External documents reviewed: Not applicable My [...] eGFR Influenza A&B Ag Rapid COVID Antigen ([facility] U Beta Hcg Qual Disposition Plan Patient Discharge Condition Stable Discharge Disposition To home Discharge Prescription List Prescriptions No active prescription medications Follow-up With When Contact Information Ambrose Urbano In 3 days 06/08/2023 EDT [address] [place] [address]- Business (1) Additional Instructions: Call [...] or worsening (more content not included)... Normal [facility] Comment on above: Result Comment: Elec tronically Signed By: Diogo TEE, Víctor Cintron\.br\Date and Time Signed: 06/05/23 18:29 EDT\.br\Electronically Co-Signed [...] with your condition: Managing pain ? Take thhz-jzn-gmwbbsa and prescription medicines only as told by [...] Reviewed: 01/09/2022 Elsevier Patient Education ? 2022 [employer] Normal [facility] ED Patient Summaryon 023 ED Patient Summary [address] [address] Patient Discharge Instructions Person Information Name: ROQUE PIERSON Age: 22 Years Arrival Date: 06/05/2023 15:20:08 Discharge Diagnosis: Headache; Nauseous Primary Care Physician: Ambrose Urbano MD Provider Information Primary Provider: Fercho Jaime DO Advanced Drip Molder:Víctor Lind PA-C The exam and treatment you received in the Emergency Department were for an urgent problem and are not intended as complete care. It is important that you follow up with a doctor, nurse practitioner, or physician?s diagnostic assistant for ongoing care. If your symptoms [...] Follow-up Instructions: With: Address: When: Ambrose Urbano [address] [place] [address], [place] [address] Business (1) In 3 days [...] opioids can be used to help relieve ungqogzy-wk-rfzthk pain and are often prescribed following a [...] ? Safe (more content not included)... Normal [facility] HEMATOLOGYOrdered By: SYSTEM SYSTEM on 06-05-2023 [...] [facility] Comment on above: Result Comment: Ina ection date/time has been modified to: 16:41:00. Previous collection date/time: 16:48:00. RBC (Bld) [#/Vol] 4.6 E12/L Normal 4.3 - 5.9 E12/L [facility] Comment on above: Result Comment: Ian ection date/time has been modified to: 16:41:00. Previous collection date/time: 16:48:00. WBC corrected for nucl RBC Auto (Bld) [#/Vol] 6.1 E9/L Normal 4.0 - 11.0 E9/L [facility] Comment on above: Result Comment: Ian ection date/time has been modified to: 16:41:00. Previous collection date/time: 16:48:00. Influenza A&B Agon Influenzae A Ag Negative Normal Negative [facility] Comment on above: Performed By: #### 2 121846, 1998208, 4611629, 2633605, 77624254, 9449322, 8145659 #### [facility] [address] [place] [address] Influenzae B Ag Negative Normal Negative [facility] Comment on above: Result Comment: Test sensitivity and specificity vary for age group, specimen type, antigen types, and prevalence of disease. Test results must be evaluated in conjunction with other clinical data available to the physician. Individuals who received nasally administered Influenza A vaccine may have positive test results up to 3 days after vaccination. Performed By: #### 2 845372, 7721075, 8771077, 1873912, 79537086, 0872129, 7164407 #### [facility] [address] [place] [address] MICRO OTHER TESTSOrdered By: Kirsten Faustin on 06-05-2023 Influenzae A Ag Negative (06/05/23 4:52 PM) Normal Negative [facility] Sero Influenzae B Ag Negative 1 (06/05/23 4:52 PM) Normal Negative [facility] Comment on above: Interpretive Data: [...] NEG Ctl Pass (06/05/23 4:52 PM) Normal [facility] Man Sero Rapid COV Int POS Ctl Pass (06/05/23 4:52 PM) Normal [facility] [place] Sero SARS-CoV+SARS-CoV-2 (COVID-19) Ag IA.rapid Ql (Resp) Not Detected 24 (06/05/23 4:52 PM) Normal Not Detected [facility] Comment on above: Interpretive Data: Libia lubin [employer] Veritor System for Rapid Detection of SARS-CoV-2 [...] Int NEG Ctl Pass Normal [facility] Comment on above: Performed By: #### 2 412151, 1338057, 2756760, 1624984, 53404625, 9552488, 2026195 #### [facility] [address] [place] [address] Rapid COV Int POS Ctl Pass Normal Fis her [facility] Comment on above: Performed By: #### 2 857589, 4767641, 5383097, 7362400, 90030824, 7454585, 5991427 #### [facility] [address] [place] [address] SARS-CoV+SARS-CoV-2 (COVID-19) Ag IA.rapid Ql (Resp) Not detected Normal Not Detected [facility] Comment on above: Result Comment: The [employer]? System for Rapid Detection of SARS-CoV-2 is [...] or revoked sooner. Performed By: #### 2 128530, 1508102, 2749504, 3336082, 09094160, 1508100, 7435184 #### [facility] [address] [place] [address] SEROLOGYOrdered By: Kirsten amor on 06-05-2023 HCG.beta subunit (U) [Moles/Vol] Negative Normal [facility] Sero U BetaHcg Qualon 06-05-2023 HCG.beta subunit (U) [Moles/Vol] Negative Normal [facility] Comment on above: Performed By: #### 2 121030, 8076088, 1791712, 9382554, 03075092, 3780334, 6286500 #### [facility] [address] [place] [address] eGFRon 06-05-2023 GFR/1.73 sq M.predicted among non-blacks MDRD (S/P/Bld) [Vol rate/Area] 126 mL/min/1.73 m2 Normal >=59 [facility] Comment on above: Order Comment: Order added by Discern Expert. Result Comment: Sales Facilitator emil kidney disease could be indicated at eGFR's of less than 60 mL/min/1.73m2. Kidney failure is indicated at less than 15 mL/min/1.73m2. Performed By: #### 2 515504, 67790975, 3337697, 4292959 ####[facility] [address] [place] [address] Cult,Urineon 03-25-2023 Cult,Urine Specimen Description .URINE, MIDSTREAM Culture NO SIGNIFICANT GROWTH Report Status FINAL 03/25/2023 Normal [facility] Comment on above: Performed By: #### U RC #### [facility] [address], [place] [id number] Satellite Technician: Kiko Ortega MD [facility] [address] [place], [place] 1695[address] Satellite Technician: Alfred Chirinos MD Urinalysis, Routineon 2022 Bilirubin, SemiQt,Ur Negative Normal NEG [facility] Comment on above: Performed By: #### U MICAO, UA #### [facility] [address] [place], [place] 3977390 Satellite Technician: Alfred Chirinos MD Blood, Urine Negative Normal NEG [facility] Comment on above: Performed By: #### U MICAO, UA #### [facility] [address] [place], [place] 06[address] Satellite Technician: Alfred Chirinos MD Clarity (U) Clear Normal CLEAR [facility] Comment on above: Performed By: #### U MICAO, UA #### [facility] [address] [place], [place] 95334[address] Satellite Technician: Alfred Chirinos MD Color (U) Yellow Normal YEL [facility] Comment on above: Performed By: #### U MICAO, UA #### [facility] [address] [place], [place] 3604190 Satellite Technician: Alfred Chirinos MD Comment [facility] Comment on above: Performed By: #### U MICAO, UA #### [facility] [address] [place], [place] 2366190 Satellite Technician: Alfred Chirinos MD Glucose Ql (U) Negative Normal NEG [facility] Comment on above: Performed By: #### U MICAO, UA #### [facility] [address] [place], [place] 555[address] Satellite Technician: Alfred Chirinos MD Ketones Ql (U) TRACE Abnormal NEG [facility] Comment on above: Performed By: #### U MICAO, UA #### [facility] [address] [place], [place] 468[address] Satellite Technician: Alfred Chirinos MD Leukocyte esterase Test strip Ql (U) 1+ Abnormal NEG [facility] Comment on above: Performed By: #### U MICAO, UA #### [facility] [address] [place] [address] Satellite Technician: Alfred Chirinos MD Nitrite,Ur Negative Normal NEG [facility] Comment on above: Performed By: #### U MICAO, UA #### [facility] [address] [place], [place] 110[address] Satellite Technician: Alfred Chirinos MD PH,Ur 6.5 Normal 5.0-8.0 [facility] Comment on above: Performed By: #### U MICAO, UA #### [facility] [address] [place], [place] 6228[address] Satellite Technician: Alfred Chirinos MD Protein Ql (U) TRACE Abnormal NEG [facility] Comment on above: Performed By: #### U MICAO, UA #### [facility] [address] [place] [address] Satellite Technician: Alfred Chirinos MD Spec. [place],Ur 1.015 Normal 1.005-1.030 [facility] Comment on above: Performed By: #### U MICAO, UA #### [facility] [address] [place], [place] 5880[address] Satellite Technician: Alfred Chirinos MD Urobilinogen,Ur Normal Normal 0.0-1.0 [facility] Comment on above: Performed By: #### U MICAO, UA #### [facility] [address] [place], [place] 1632[address] Satellite Technician: Alfred Chirinos MD Urinalysis,Microon 3 ----- Normal [facility] Comment on above: Performed By: #### U MICAO, UA #### [facility] [address] [place], [place] 26[address] Satellite Technician: Alfred Chirinos MD Bacteria RARE Abnormal NONE [facility] Comment on above: Performed By: #### U MICAO, UA #### [facility] [address] [place], [place] 57494[address] Satellite Technician: Alfred Chirinos MD Urine RBC's 0 TO 2 Normal 0-2 [facility] Comment on above: Performed By: #### U MICAO, UA #### [facility] [address] [place], [place] 569[address] Satellite Technician: Alfred Chirinos MD Urine WBC's 0 TO 2 Normal 0 [facility] Comment on above: Performed By: #### U MICAO, UA #### [facility] [address] [place], [place] 376[address] Satellite Technician: Alfred Chirinos MD US PREG ANATOMY SINGLEon [...] JULIUS RICKS Date: 2022-12-08 22:36 Normal [facility] AFP MATERNAL FOR SPINA BIFID Aon 12-07-2022 AFP MoM 1.38 Normal [facility] Comment on above: Performed By: #### A FPMAT #### [facility] [address] [place] [address] [address] Tasha Whalen AFP Value 88.5 ng/mL Normal [facility] Comment on above: Performed By: #### A FPMAT #### [facility] [address] [place] [address] [address] Tasha Whalen AFP, Serum for Spina Bifida Report Normal [facility] Comment on above: Performed By: #### A FPMAT #### [facility] [address] [place] [address] [address] Tasha Whalen Comment Comment Normal [facility] Comment on above: Result Comment: Nakia Lopez, Ph.D., [facility] Director . References: Available Upon Request. . Multiples Of Median Cutoffs For AFP Elevations Contreras 2.5 Black 2.8 IDD 2.0 Twins 4.5 Abbreviation Definitions IDD - Insulin Dep Diabetes OSBR - Open Spina Bifida Risk . For further inquiries contact [facility] at [phone]. . This test was developed and its performance characteristics determined by [employer]. It has not been cleared or approved by the Food and Drug Administration. Performed By: #### A FPMAT #### [facility] [address] [place] [address] [address] Tasha Whalen Gest Age Collection Date 21.0 weeks Normal [facility] Comment on above: Performed By: #### A FPMAT #### [facility] [address] [place] [address] [address] Tasha Whalen Gestat, Age Based on Ultrasound Normal [facility] Comment on above: Result Comment: 17.0 on 11/07/2022 Recalculations are not recommended when gestational dating by LMP and ultrasound are within 10 days. Performed By: #### A FPMAT #### [facility] [address] [place] [address] [address] Tasha Whalen Insulin Dep Diabetes No Normal [facility] Comment on above: Performed By: #### A FPMAT #### [facility] [address] [place] [address] Dr. Tasha Whalen Interpretation Comment Normal [facility] Comment on above: Result Comment: Inte [...] Customer Services to discuss available options. The [employer] recommends amniocentesis be offered to women age 35 and older. Performed By: #### A FPMAT #### [facility] [address] [place] [address] Dr. Tasha Whalen [age] Normal [facility] Comment on above: Performed By: #### A FPMAT #### [facility] [address] [place] [address] Dr. Tasha Whalen Multiple Gestation No Normal [facility] Comment on above: Performed By: #### A FPMAT #### [facility] [address] [place] [address] Dr. Tasha Whalen OSBR Risk 1 [place] 3810 Normal [facility] Comment on above: Performed By: #### A FPMAT #### [facility] [address] [place] [address] Dr. Tasha Whalen PDF . Normal [facility] Comment on above: Performed By: #### A FPMAT #### [facility] [address] [address] [address] Tasha Whalen Race Normal [facility] Comment on above: Performed By: #### A FPMAT #### [facility] [address] [address] [address] Tasha Whalen Test Results: Negative Normal [facility] Comment on above: Performed By: #### A FPMAT #### [facility] [address] [address] [address] Tasha Whalen Coding Summary.on 12-03-2022 Coding Summary. CD:[id number] Ww+PGhlYWQ+CL2NGHBqG 42jbBUsjN5tX9OXFBcFY ywgQVBQTElOSyIgbmFtZ Y4uyVUmQXYf IC8+SP5wXWGfBbupaKWy e6Z8lIO5N78vbv4gLFvl oFB7LDSuJcGausoax9cl xBq3DZwtJbdfTtXl JOUmnG86HVI1qQ42Vj63 dDRgqVQzp8omcIq4FoKt GKJdKYX0vCghZHfne6Kf XPSkK65qsVPil3D3 IGNvbGxhcHNlOyBlbXB0 qO3lIUbqhhydf7dtxtrg Mkv5ec20aRRzv3A2uDN8 M6YsoxP8ULAuaUFh UaoplYEOhT7bdtbkj9qk wlqyXoZpDJLvXZy5PDw5 LVLbhXdkBpMvMV10EYU2 JPRdtgZsV6TdVHRt pZkcFnI8y3J4Kq6RZ5CI PrirA1ZFPEOMPIntbNC+ XD25vb13Y6WcOdmjVcm0 WSImZFH7rXG8nV6h VJVnMRavb5N5xAB8K1Ic waNffe2yo1grVGLbURvf C20vaUDyw2M7CFOmtWW1 PPHnlMojZvHklL57 Oyc+WLSatNgyj0IdTkgd g0kzp7wikWj4QpuwDXYu qmLbkWlpCCZ1j2JsZk3i HPPssLC5sNC2yT5a AePeGtX7BSdgD304NtZp gYSjZqhvM22qN2MavVO+ AQMrZle9WKTzoIedFG6p I0ByCQEytczbzEFs cJrsUG5gCHTtvoufZUPi uR9bKEUeG2x4NjVtShK9 ZVsiN9StIXIydefyFx44 lU9uOvJkTeL0DTdf N8EsdxB5BZPvkYEcDLlr DSQ9A95jb5R2DMObJGBm VPL3zIK1xX1ujJyibzda bGVmdDsgdmVydGlj BJidPNfsQ428MGKhiShb PkNvZGluZyBEYXRlOiAg MDQvMTEvMjAyMzwvdGQ+ ZDMcQKI6rYteIAGi kRSaEHwnYn6yvCqqxBjh DO1nALEljrsnLZOcdO7h APAqnQQtgYfyDW1kFJZj jiukg282GiAzVLQ7 DYTohKLiM4KycT8aRzUj YCEtVAGrV8BbmHQbQJhd K233WMuoHjX3GVEqkfWc H9LzRXBfzNgwYuH7 i7Z9Vt7Do9IaframE2Vg eOCdMsRrHdemJAo5V4Qv PjwvdHI+KG77VXXaYW95 LZp3VOS9yLxjNZfh EVLoG8MbwS9cIbWuJATp ZGRkOyc+PHRhYmxlIHdp ZHRoPScxMDAlJyBzdHls QD9hBq5wNJHdPQRo kPtnxWFdZtAzv0egQQWz MFifFS7tnVwsN2IpnVU3 RSCpq7w5Hb11B71kQ0Cu dXA+FYCsuGA8mST5 eB5vXmCkZpR4EZebX372 XgOqkXDsBvrfm8yrm1vd rZd6SpR0LPZlsqXahCss KKO4p2WsJz17N53m IHdpZHRoPSIxNSUiIHZh iOwoyi5lpL1rIw8+PGNv nGZ4gTM4sY4zPjPwBoJ5 CXvqV388NvVlmLRb Dngwn6wct7gnqDf9JdZr RPTatzXmtSmhEWA6e4Ym Cn86Y4RgwCkan6YhVjj0 lh76qEKpx4Q5qRO6 I5OnSWAlxbiizEYimApd DH2eQRFqadpkFQThfG0r MVKqB6d6JuCbSvJ2VZqt Q2XtoiZ4IJNtzAJr PETmuMRQkI9wpdqki7ox skmfOxZnZHSvENz1GYl0 EOQyjHelZyDhMXL5JlO3 JIJ3uRNkvL9txLbw wzywnW5vLrw+YOK5qXGs iGYEIE0mBprypGK+PHRk NMN2yKsxGApwJGUrwO4a POUiY8w9HrQfDpL5 ENkyI7YspuS4SYZkgMHm PZPwkMYLgN2kxndww0tf edudDvNeMFQeSYa8MAo3 LWFsaWduOiBsZWZ0 UuA0ZVR3lMXqwR8vbPac zttfpW7cVov+QmlydGgg HAU1YSz7N9ZhWnz7FTZa sHseIR0yuHQeKCiw He3liOyiaPsbRA3uHFMd rfxlm629WiAym2pzSEQu vMZdMVosKUQ6C43hk9N8 KHWmTAGuILN8yMS5 lP3gyJpxosfjrIInzAnj saQrzIgnPNraFRihT227 CLNhkFaxDkHaHQl8I7Tr Bjy7JEFwuXzeEZ0p xFYaFHycZh9laWgcmQtp SS9iJQNnowkke722HjVl h9onCGWmfHXiGDkgUDY6 B11kh6G5VZItTYGz RTJ0tDP4wA1mpStagbvd bGVmdDsgdmVydGljYWwt FWbkT784VRRdsNdeRoBi zKx0K2GqSva4UVUw wUrbYM4lsWWfKKiiEl0n uFriqQooUD5uHDXokpnh w877JkHol2ywEYAkrMLq DLuaZJU1O99ps9B5 RFAxIMJbXGY3kWY0wN3i bGlnbjogbGVmdDsgdmVy rAvhEXemGTqgP473NGFg cDsnPlBhdGllbnQg HPfuEZq2Z6PiRitkmPY+ TA45CYUbXR70fPHsnWMf f0bkfLa6KvOlDTWcRHL6 nJmeQXqfg5CkMBMw B88nnMVuv3K7REHnqIkk oMHbLkUclHE3kM4vIXvg tnyjp6brkjsbNyvjy6gi vn05cX78G45uWOpq ZHRoPSIzMCUiIHZhbGln fm8ieH1kNo4+PGNvbCB3 dRT6cM8rKXNbJwX3GJmx I235BpSfpMAtIyvb g8tvi1gzuEs9XaH6CJDn nvMwcBtgNPV3m5CdLv31 Q63oHTxaOEFtRCFzUGGt LWWdhBgngh0lpN5e Ii8+WNOpwYW8uTD0yV4j UwGnKnN5URhcB501XwBd xTVqKxqgO10vI9LnxPT+ HLTgMbn6FJCzzNuv OW5kgBOpBOmuMp1aFMN7 CiEdWeQtEKhzN9CgEAXp mmklutfedBF9MNAvMNYg kS58Eq6ssPoeAMZb uMCImR1zwoqng5wcerup KzIgIXKhDNi4EUg1YZYg vUcrSsRjQRF2LxS9IWN1 pWBsvR7cnOfokvck yC7kO5ItWCFodgemDd51 lH3rOfEfAcX4NXbcYjf+ S4zQH5WBBALpKZUBUxOG TkEgTTwvdGQ+PHRk IBS0aXtwWVmmXLNenU6a YSXeQ5x0NdYbBzA2AKgh J7GnIJYicoafYk75bY0e AxGaSvZ0LDboO3Kj xlN7THUoaURpQAkoVFJ3 B22tv0F5ULSfDVQxAAP2 xSS2oA7eeJvghutmfCKo dDsgdmVydGljYWwt OOxuX490IJHexSexAvYe HdN2DxZgDUW0U7TjBsb5 GFYqoEedLD1jrBKnGPtz Ze2bwCdhrNntRA9j NZPhrcncZMDsvL1qFJXf cTYkpYgaQG4zAPTllcae b659WtKtGMM9KMDjmLUj N9EnhR8oNpBvFKEl UJKeZ6VcaBNpKPoaT135 TXhhGeD4DCZjmiTfU4Tj PCEkiNkrAgZ7g9Y8Lo1x MSBZZWFyczwvdGQ+ ZWLcMUJ7qPdaKEubAZPe rM2hCMDnD3b6QcMjBpQ0 WOgpT5KhCKTeqgatId99 aC2bSaKlIlE5IKjb N3ZznkZ4IPCudLJwMSqt UYE7O06te6N3RKXdFLDz TDB0lTI6jG5ztAdggvau bGVmdDsgdmVydGlj YGanSCldI204GSPncLiv PkZlbWFsZTwvdGQ+PHRk YBW5bOtoCGcjQPGtwG2x YDCaQ5q4CrQbTyU4 UVelJ6SoBOOafkstYr15 wX1eIpKyJiZ6GLseN5Gq odW3XCIkvNVuLAwoDBI5 W59ti3X2USZpLPUb JLS2dAU4jU9fwQefkjgu bGVmdDsgdmVydGljYWwt ITfrH750NFCufTndNc7B IFRyaWFnZTwvdGQ+ HR07rt99M9UqJqbtLay4 OICrSQH5xKE7tZ3cJFYf IZdad0A7mNH6N6GacoEf eb3oe7ofSBYmNZkh R21dsAZxb3A1EWOkeZL0 JNUdjFtpCoCtsD33Ceo+ UYGgcBaff3ZmXcysr4rs m9rzfHj2LyHnNIKr umRgsNdtPQS8x6HvDz64 W52hHYpjZAOxQAWmFANa WKKugKbttu0vcK2wVa0+ GGBsdDW9eZQ5kF8k JiTeLuI0QSoiQ551ClAb xJAuUmtph4quk4rzgXf1 IjIwJSIgdmFsaWduPSJ0 c6EpMd07O9EskFon p0KkHxl1cv58zXDzx6W8 kXA8T7SjGDYxnbjptNUi gEzmLI2pSNYsqfdoHWFp qB5qVHCjR0z0KuKc UbO7VJauR7LbswT0FPDm cGVqEBJbtWYXfY4dqqen m3qyhypkJtRxVNDmOSs4 QGt6TCFwaXujIuSm OXO0CcJ6AWO0vFZyfK3x rCmuhowedW8xMuq+UGh5 e0tckIEgTK1yaJB5ZG40 LG42xFKpk5Z5eBU0 K3VsXIAuzhedmbzmqNH1 CGXyWINlgH95Gl4rmFmb Za3aQGEtIEU1LTFueYTc X1MzaS0pNbSsJICq CCNrE1VctCIhBXscU021 IXsgVxN9YURryiSnU5Lo YWYvxEbdZcS4r3E3Va4M GO38KL78OA29lPJu a7S2bTF3S0JeKTSuuuli kcorhLO2MIDiJTXljL80 Jk6odFcpOy8kURVcNTI1 ORMufMRyF1FfeL1w FdWuXJRwKVRgJ9XhkXRi LFpoV343IIyjEkG6XRSg hsKyS8BhNMDhbGqhLmA5 z5Z7Ys7ZUc98TG81 FB69eWQgh7H0gSO1T8Uz TEDzlsbmplxynIN4UXVz KKGszH27Rk4zlZxaKd8o SPXwUYS7TFRtbGYp R0FhiP1wFyKlDKYdEKDo J8FteBIpNFxjR938TMjf RbR5MGUwimTiQ7KzKNNi dSwdXqM7f6S3Nw2K JYeidrr9V2CdLjtenOU+ RW30NAJaSZ34wYSmeYMg p4denUb3DnYgMMOjTED7 lGolQHbwe1IxIJSc D40loISo (more content not included)... Normal [facility] Nursing Assessmenton 023 Nursing Assessment [id number] 3#1.00CD:127 Normal [facility] Discharge Instructionson Discharge Instructions [id number] 0#1.00CD:127 Normal [facility] Inpatient Clinical Summaryon 11-26-2022 Inpatient Clinical Summary [address] [id number] Clinical Summary Person Information Name: ROQUE PIERSON/[facility] Age: 22 Years : 2000 Sex: Female PCP: Ambrose Urbano MD Marital Status: Single Race: White Ethnicity: Non- or Language: [place] Visit Id: Visit Reason: LT / RT/ LOWER ABD PAIN Speciality: Acuity: Obs Enc Type: OB Triage Med Service: Obstetrics Arrival: 11/25/2022 18:17:16 Discharge: 11/25/2022 22:27:00 Dispo Type: Home (Routine DC) Address: [address] [facility] [id number] Provider Notes: Diagnosis: Problems Active (11/25/2022) Smoking [...] up: With: Address: When: Your doctor in [place] [phone] In 3 days 11/28/2022 Comments: Call for [...] Education Information: Round Ligament Pain; Morning Sickness, Qled-bv-Gfvz; Second Trimester of , Thwx-hc-Gtky; Abdominal Pain During , Plhy-mw-Ifuy Normal [facility] Inpatient Patient Summaryon 11-26-2022 Inpatient Patient Summary [address] [id number] Patient Discharge Instructions PERSON INFORMATION Name: ROQUE [...] up: With: Address: When: Your doctor in [place] [phone] In 3 days 11/28/2022 Comments: Call for [...] until the pain goes away. ? Take pywl-jpr-egeqaxo and prescription medicines only as told by [...] you uri (more content not included)... Normal [facility] Insurance Correspondenceon 0 11-26-2022 Insurance Correspondence [id number] 5#1.00CD:127 Normal [facility] Consent for Treatmenton Consent for Treatment [id number] #1.00CD:127 Normal [facility] GetWell Education Videoon GetWell Education Video Yes Patient Avoiding Infections in the Hospital Normal [facility] UA With Cult Reflexon 2022 Bacteria LM Ql (Urine sed) TRACE Normal Trace [facility] Comment on above: Performed By: #### 1 [id number] #### [facility] [address] [place] [address] Bilirubin Ql (U) Negative Normal Negative [facility] Comment on above: Performed By: #### 1 [id number] #### [facility] [address] [place] [address] Clarity (U) CLEAR Normal Clear [facility] Comment on above: Performed By: #### 1 [id number] #### [facility] [address] [place] [address] Color (U) YELLOW Normal Yellow [facility] Comment on above: Performed By: #### 1 [id number] #### [facility] [address] [place] [address] Epithelial cells.squamous LM.HPF (Urine sed) [#/Area] 0-2 Normal 0-2 [facility] Comment on above: Performed By: #### 1 [id number] #### [facility] [address] [place] [address] Glucose Test strip (U) [Mass/Vol] Negative Normal Negative [facility] Comment on above: Performed By: #### 1 [id number] #### [facility] [address] [place] [address] Hemoglobin Ql (U) Negative Normal Negative [facility] Comment on above: Performed By: #### 1 [id number] #### [facility] [address] [place] [address] Ketones (U) [Mass/Vol] Negative Normal Negative [facility] Comment on above: Performed By: #### 1 [id number] #### [facility] [address] [place] [address] [place].plasma/[place].R BC (Bld) [Mass ratio] 0-3 Normal 0-3 [facility] Comment on above: Performed By: #### 1 [id number] #### [facility] [address] [place] [address] Nitrite Ql (U) Negative Normal Negative [facility] Comment on above: Performed By: #### 1 [id number] #### [facility] [address] [place] [address] pH (U) 7.5 [pH] Invalid Interpretation Code 5.0-9.0 [facility] Comment on above: Performed By: #### 1 [id number] #### [facility] [address] [place] [address] Protein (U) [Mass/Vol] Negative Normal Negative [facility] Comment on above: Performed By: #### 1 [id number] #### [facility] [address] [place] [address] Specific gravity (U) [Rel density] 1.010 Invalid Interpretation Code 1.005-1.030 [facility] Comment on above: Performed By: #### 1 [id number] #### [facility] [address] [place] [address] Type of Urine collection method Clean Catch Normal [facility] Comment on above: Performed By: #### 1 [id number] #### [facility] [address] [place] [address] Urobilinogen Qn (U) 0.2 {Andrea'U}/dL Normal 0.0-1.0 [facility] Comment on above: Performed By: #### 1 [id number] #### [facility] [address] [place] [address] WBC Auto Ql (U) TRACE Abnormal Negative [facility] Comment on above: Performed By: #### 1 [id number] #### [facility] [address] [place] [address] WBC LM.HPF (Urine sed) [#/Area] 0-5 Normal 0-5 [facility] Comment on above: Performed By: #### 1 [id number] #### [facility] [address] [place] [address] URINALYSISOrdered By: Davidson Watson on 11-25-2022 Bacteria [...] PM) Normal Negative [facility] UA Auto SS [place].plasma/[place].R BC (Bld) [Mass ratio] 0-3 /HPF Normal [...] Desc Clean Catch (11/25/22 6:27 PM) Normal [facility] [place] Auto SS Urobilinogen Qn (U) 0.6633080 {Andrea'U}/dL Normal 0.0 - 1.0 EU/dL [facility] UA Auto SS WBC Auto Ql (U) Trace *ABN* (11/25/22 6:27 PM) Invalid Interpretation Code Negative [facility] [place]A Auto SS WBC LM.HPF (Urine sed) [#/Area] 0-5 /HPF Normal 0-5/HPF [facility] UA Auto SS PAP ACOG PANEL 2: 22 to 29on 11-14-2022 . . Normal [facility] Comment on above: Performed By: #### C T/NGNA #### [facility] [address] [place] [address] Dr. Tasha Whalen Age Gdln ACOG Testing [facility] Comment on above: Performed By: #### C T/NGNA #### [facility] [address] [place] [address] Dr. Tasha Whalen DIAGNOSIS: Comment [facility] Comment on above: Result Comment: NEGA TIVE FOR INTRAEPITHELIAL LESION OR MALIGNANCY. FUNGAL ORGANISMS MORPHOLOGICALLY CONSISTENT WITH DYLAN SPECIES ARE PRESENT. Performed By: #### C T/NGNA #### [facility] [address] [place] [address] Dr. Tasha Whalen Methodology: Comment [facility] Comment on above: Result Comment: This liquid based ThinPrep(R) pap test was screened with the use of an image guided system. Performed By: #### C T/NGNA #### [facility] [address] [place] [address] Dr. Tasha Whalen Note: Comment [facility] Comment on above: Result Comment: The Pap smear is a screening test designed to aid in the detection of premalignant and malignant conditions of the uterine cervix. It is not a diagnostic procedure and should not be used as the sole means of detecting cervical cancer. Both false-positive and false-negative reports do occur. . Performed By: #### C T/NGNA #### [facility] [address] [place] [address] Dr. Tasha Whalen Performed by: Comment Normal [facility] Comment on above: Result Comment: Emma Jama, Sheriffs Detective (ASCP) Performed By: #### C T/NGNA #### [facility] [address] [address] [address] Tasha Whalen Reflex Criteria: Comment Normal [facility] Comment on above: Result Comment: The HPV DNA reflex criteria were not met with this specimen result therefore, no HPV testing was performed. . Performed By: #### C T/NGNA #### [facility] [address] [address] [address] Tasha Whalen Specimen adequacy: Comment Normal [facility] Comment on above: Result Comment: Sati sfactory for evaluation. Endocervical and/or squamous metaplastic cells (endocervical component) are present. Performed By: #### C T/NGNA #### [facility] [address] [place] [address] Dr. Tsaha Whalen CHLAMYDIA/GONOCOCCUS CATRINA (SW AB/URINE/PAPon 11-12-2022 Chlamydia trachomatis, CATRINA Negative Normal Negative [facility] Comment on above: Performed By: #### C T/NGNA #### [facility] [address] [place] [address] Dr. Tasha Whalen Neisseria gonorrhoeae, CATRINA Negative Normal Negative [facility] Comment on above: Performed By: #### C T/NGNA #### [facility] [address] [place] [address] Dr. Tasha Whalen VAGINITIS/VAGINOSIS DNA PROB [place] 11-09-2022 Dylan species Positive Abnormal Negative [facility] Comment on above: Performed By: #### V AGINT #### [facility] [address] [place] [address] Dr. Tasha Whalen Gardnerella vaginalis Negative Normal Negative [facility] Comment on above: Performed By: #### V AGINT #### [facility] [address] [place] [address] Dr. Tasha Whalen Trichomonas vaginalis Negative Normal Negative [facility] Comment on above: Performed By: #### V AGINT #### [facility] [address] [place] [address] Dr. Tasha Whalen HEP B SURFACE ANTIGEN SCREEN on 10-05-2022 HBsAg Screen Negative Normal Negative [facility] Comment on above: Performed By: #### H BSANS #### [facility] [address] [place] [address] Dr. Tasha Whalen HEPATITIS C VIRUS AB W/ REFL EX QUANTon 10-05-2022 HCV AB 0.1 s/co ratio Normal 0.0-0.9 [facility] Comment on above: Performed By: #### H CVPCRR #### [facility] [address] [place] [address] Dr. Tasha Whalen Interpretation: Comment Normal [facility] Comment on above: Result Comment: Nega tive Not infected with HCV, unless recent infection is suspected or other evidence exists to indicate HCV infection. Performed By: #### H CVPCRR #### [facility] [address] [place] [address] Dr. Tasha Whalen HIV 1 AND 2 WITH REFLEXon HIV Screen 4th Generation wRfx Non-Reactive Normal Non Reactive [facility] Comment on above: Result Comment: HIV Negative HIV-1/HIV-2 antibodies and HIV-1 p24 antigen were NOT detected. There is no laboratory evidence of HIV infection. Performed By: #### H IV12 #### [facility] [address] [place] [address] Dr. Tasha Whalen RPR QUANTon 10-05-2022 Rapid Plasma Reagin, Quant Non-Reactive Normal NonRea<1:1 [facility] Comment on above: Result Comment: Plea se Note: This test does not meet current guidelines for screening and diagnosis of syphilis. This test is intended for following treatment response in patients being treated for syphilis infection. To screen for syphilis infection, a reflex cascade that includes both RPR and a treponema-specific assay should be utilized, such as Treponema pallidum (Syphilis) Screening Titus (313155) or Rapid Plasma Reagin (RPR) Test With Reflex to Quantitative RPR and Confirmatory Treponema pallidum Antibodies (501840). Performed By: #### C T/NGNA #### [facility] [address] [place] [address] Dr. Tasha Whalen RUBELLA AB IGGon 10-05-2022 Rubella Antibodies, IgG 3.71 index Normal Immune >0.99 [facility] Comment on above: Result Comment: Non- immune <0.90 Equivocal 0.90 - 0.99 Immune >0.99 Performed By: #### R UBIGG #### [facility] [address] [place] [address] Dr. Tasha Whalen CBC AUTO DIFFon 10-04-2022 BASO # 0.0 103/ul Normal 0.0-0.1 [facility] Comment on above: Performed By: #### H IV12 #### [facility] [address] [place] [address] Dr. Tasha Whalen Basophils/100 WBC (Bld) 0.5 % Normal 0.2-2.0 [facility] Comment on above: Performed By: #### H IV12 #### [facility] [address] [place] [address] Dr. Tasha Whalen EO # 0.1 103/ul Normal 0.0-0.7 [facility] Comment on above: Performed By: #### H IV12 #### [facility] [address] [place] [address] Dr. Tasha Whalen Eosinophils/100 WBC (Bld) 0.8 % Critically low 0.9-7.0 [facility] Comment on above: Performed By: #### H IV12 #### [facility] [address] [place] [address] Dr. Tasha Whalen Erythrocyte distribution width (RBC) [Ratio] 12.5 % Normal 11.0-15.0 [facility] Comment on above: Performed By: #### H IV12 #### [facility] [address] [place] [address] Dr. Tasha Whalen Hematocrit (Bld) [Volume fraction] 39.2 % Normal 36.0-48.0 [facility] Comment on above: Performed By: #### H IV12 #### [facility] [address] [place] [address] Dr. Tasha Whalen Hemoglobin (Bld) [Mass/Vol] 13.5 g/dL Normal 12.0-16.0 [facility] Comment on above: Performed By: #### H IV12 #### [facility] [address] [place] [address] Dr. Tasha Whalen IG # 0.04 10e3/ul Critically high 0.00-0.03 [facility] Comment on above: Performed By: #### H IV12 #### [facility] [address] [place] [address] Dr. Tasha Whalen IG % 0.5 % Normal 0.0-0.5 [facility] Comment on above: Performed By: #### H IV12 #### [facility] [address] [place] [address] Dr. Tasha Whalen LYMPH # 1.6 103/ul Normal 1.2-3.8 [facility] Comment on above: Performed By: #### H IV12 #### [facility] [address] [place] [address] Dr. Tasha Whalen Lymphocytes/100 WBC (Bld) 18.5 % Critically low 20.5-60.0 [facility] Comment on above: Performed By: #### H IV12 #### [facility] [address] [place] [address] Dr. Tasha Whalen MANUAL DIFF REQ NO Normal [facility] Comment on above: Performed By: #### H IV12 #### [facility] [address] [place] [address] Dr. Tasha Whalen MCH (RBC) [Entitic mass] 29.6 pg Normal 26.7-34.0 [facility] Comment on above: Performed By: #### H IV12 #### [facility] [address] [place] [address] Dr. Tasha Whalen MCHC (RBC) [Mass/Vol] 34.4 g/dL Normal 29.9-35.2 [facility] Comment on above: Performed By: #### H IV12 #### [facility] [address] [place] [address] Dr. Tasha Whalen MCV (RBC) [Entitic vol] 86.0 fL Normal 81.0-99.0 [facility] Comment on above: Performed By: #### H IV12 #### [facility] [address] [place] [address] Dr. Tasha Whalen MONO # 0.4 103/ul Normal 0.3-0.8 [facility] Comment on above: Performed By: #### H IV12 #### [facility] [address] [place] [address] Dr. Tasha Whalen Monocytes/100 WBC (Bld) 4.8 % Normal 1.7-12.0 [facility] Comment on above: Performed By: #### H IV12 #### [facility] [address] [place] [address] Dr. Tasha Whalen NEUT # 6.3 103/ul Normal 1.4-6.5 [facility] Comment on above: Performed By: #### H IV12 #### [facility] [address] [place] [address] Dr. Tasha Whalen Neutrophils/100 WBC (Bld) 74.9 % Normal 43.0-75.0 [facility] Comment on above: Performed By: #### H IV12 #### [facility] [address] [place] [address] Dr. Tasha Whalen Platelet mean volume (Bld) [Entitic vol] 10.0 fL Normal 9.5-13.5 [facility] Comment on above: Performed By: #### H IV12 #### [facility] [address] [place] [address] Dr. Tasha Whalen PLT 290 103/ul Normal 150-450 [facility] Comment on above: Performed By: #### H IV12 #### [facility] [address] [place] [address] Dr. Tasha Whalen RBC 4.56 106/ul Normal 4.20-5.40 [facility] Comment on above: Performed By: #### H IV12 #### [facility] [address] [place] [address] Dr. Tasha Whalen WBC 8.4 103/ul Normal 4.0-11.0 [facility] Comment on above: Performed By: #### H IV12 #### [facility] [address] [place] [address] Dr. Tasha Whalen CULTURE URINEon 10-04-2022 CULTURE URINE Culture Observations: VERY LIGHT GROWTH OF MIXED GENITAL TAYE. NO POTENTIAL PATHOGENS SEEN. Normal [facility] Comment on above: Performed By: #### C T/NGNA #### [facility] [address] [place] [address] Dr. Tasha Whalen GLYCOHEMOGLOBIN A1Con 2022 ADA RECOMMENDATION SEE BELOW Normal [facility] Comment on above: Result Comment: ADA RECOMMENDED LIMIT 4.0 - 6.0 ADA THERAPEUTIC TARGET < 7.0 ACTION SUGGESTED > 7.0 Performed By: #### C T/NGNA #### [facility] [address] [place] [address] Dr. Tasha Whalen Glucose [Mass/Vol] 100 mg/dL Normal [facility] Comment on above: Performed By: #### C T/NGNA #### [facility] [address] [place] [address] Dr. Tasha Whalen HbA1c (Bld) [Mass fraction] 5.1 % Normal 4.5-6.2 [facility] Comment on above: Performed By: #### C T/NGNA #### [facility] [address] [place] [address] Dr. Tasha Whalen CLINT BOX TEST PT SEND OUTo n 10-04-2022 SENT TO REF LAB 10/04/2022 Normal [facility] Comment on above: Performed By: #### C T/NGNA #### [facility] [address] [place] [address] Dr. Tasha Whalen TSHon 10-04-2022 TSH 1.027 uIU/mL Normal 0.358-3.740 [facility] Comment on above: Performed By: #### C T/NGNA #### [facility] [address] [place] [address] Dr. Tasha Whalen TYPE AND SCREENon 10-04-2022 TYPE AND SCREEN Negative Normal [facility] Comment on above: Performed By: #### C Libia/LE #### [facility] [address] [place] [address] Dr. Tasha Whalen US PREG TVon 09-20-2022 [...] ALFRED BERGERON Date: 2022-09-20 10:40 Normal [facility] Coding Summary.on 09-09-2022 Coding Summary. [id number] Gh0bWw+PGhlYWQ+PE1FV WNwI47mgJMhuL0CN9pJG X6GZNTXJIMGLS8DTQ4yl NF7FYvjJ1WzpzLv FrezjRJcEA14OSg6HEA2 mXlhDOyqbI7wkWIkI8p9 BrAfPK83bZ99YJeeJCOt ZbF2ZqDcvwvqvWZv R3clNcXygNRbPxj+PHRh YmxlIHdpZHRoPScxMDAl GzEszTuhRG5yGk4wIQWg LWNvbGxhcHNlOiBj y5coDQWnTWdeVD7ycVix G9ZcsHU5VCQva7r7Qj14 dHI+HLOkVEN2jRknFVye x296XdUuf5igNQL2 jEJzLHixIJB1X74kx1S3 FVUeSHDoPKN4kOD7pC8r eDntkjsiL2XlsIPqCfV4 ERG8wXQzhM8plHxg utnhvE2kSjh+D84SJF2T VHHOKS7ICyf1L3BfPklw dHI+BE31JEOuXH32lRFr tLUfw8mklNw9VbHp OYYtSIP9dNuyXYgot2Rj GBAkI95xdCLvu5Y7DHLu vHikkMRxRnLexYY3cJ0q FHfauffbe2wwrpjo Kchnc7qglj57gO66X60c MOumVNCpKCP7KIVaBMLh iCnmfq4voM7dWx6+IDxj f8odu8gscAy7EuCm YSKgftKpsIqyHNI6a2Vi Pd30O3MbyQihv6LqFss3 kf23kSKfp1E9eKU0VBnf GBOskM9uKJcoOyL7 UCUyZhTwnI17rQPhAMul Wi8mdYpwmDrqDF5lILBb sdtxHVPttW7lREMhcYQf cPogOF6cYOYcmtsc g167PbBgRCB5GFMazIIk Q7DqkV0oZnApNUEoELSw D4YvbYArCAgnX644MMjb LeH9CTZadtMiJ6Ih DHOzrVylBmK9g5Z7Vk0N r6AjvyjtAYT1KFdtCACj GyM0GhXiJgV6S6NrIfi6 QKTyxNebBW7rK1Qs CTDtebnfbxlvwEE6BOZi BBXhjY39nUWkORvrVs9d y1O9k131FHJuJEMamV96 Gb6vaEvfMJLreWEO tJ9ngifhj9cajfxyTuDo QDKiOZj9GMh2FQYagRlv LfNdIFB0RqR3EKA4zMSe tF2vzSmageuvxF6t Oyc+T93qwL0pHAU1QLE1 dtgsZJPhzpXmRY84NP93 I3SxEmipoQCvwIW+PGRp cmBhqJpmFA7yEsTp y3cwm0KkZTioE3BuYEAg NLshYty6LUBrUKL4vRY5 jT0kNMZlSBooj4W9hOH1 L6RwcqOefo7dr5lr YYVjOZceH20idNWih6P1 QOWhjPP0WRGstHgnBnJs uS40Ece+GDPlkJflq7Df Adkse1kfn9rdvJs4 IjMwJSIgdmFsaWduPSJ0 z1RtYj74J02wZBhhBBLn RCYaBSGrXEQrsLkcci4g aV0tVo9+PGNvbCB3 jKE9tA9hRPLpHcW8XPnn R160NvRykLCqOgkgo9hg p7wviKa1QgEpBFAijwCx iCalBAV6w7IyMs39 K45rSRfmUTClSHYbWDBk XBSbsRnwhm3xlT3qUu3+ IU2me6ltmo14jA04fWN+ VCViHJH5pHpqAUum SEOfqJ4bGNhnHtP3EXSp IcQanN01eMMoTNnhQw2n gCrixIzhAO9eSITszduz a479JbPam3mbAFSx sOLpJZxoJXV9N80mk6V4 LMZwGFYyZVW5wVQ2iY7q bGlnbjogbGVmdDsgdmVy wBkgDFxpRUmoF173 IHRvcDsnPlBhdGllbnQg YgYbNJl8O5SaYcr6FZYu cTuaKG3hwONuPJrfCw6r kBkdcSjyZY1bNTPo zffek018EgLsd7xwQTNm zPIoPQldAEO7H61db7E9 OLTcDDMzIZZ2sVT9jY6u bGlnbjogbGVmdDsg wcYcmUpqIKokZFfhD361 IHRvcDsnPkJpcnRoIERh rLP6JP62RH83vZDju0T0 sUM5R6PlGSPyribn nrjrmCJ7SURbAXPlfH37 Qs3daJtzLv2fMYYpBWX0 UPBuiUSiE1LnfR9iGiLy PPFtAHEdY4GmoFAn TPusF611HBbtLqC7ZLCi yhGkZ9BmUQUtsYsdPtM9 y4R9Ly7DC2X6MJ26BC07 wKOmv5U7fQG6R8Vu MHXayxvfourpqXE0ZUNz EITldV39Vv0tuNwfBg2h GTPmUEX1KRXxhWJjV4Qf cN8qFmExHZZnNPIm Z0TbfEEmGDajX975RMfq KoR0GSOqjrJaW9ShGKJc iQqzVbP7r7S0Xz7NUEc3 IO43ZA54sSZfr9C9 oCC1P9LnIAYsgalpxrgs qUC0HCLkHJAwaM78Eh2j nQvtWu9hRYYpEOL8NVEs oXVcB5HixB6qNvPk GVZtOBIgY2ZdxSGaCBvp C139TLkbEiU7GBPtstIx I1BdIBTjjZkpMkO0y5J4 Vk4NIJNaWR49TJT2 gUE2KF92ZJ14U2BmMjnn dGFibGU+PHRhYmxlIHdp ZHRoPScxMDAlJyBzdHls OD0aHz3yFWWpTYSf oPyihDFiFoQsj6foGGFv XUllWK6hxYrdX9OgiIL7 GFMxx4t9Zh66Y14oO6Mk dXA+XHFecJJ1dLN3 dC3zRhHcZpU7GQaeO703 BeRvnJXtBmlxj1ghm7vl jLf2TxT3YDNszdNiiUgh RBR7a8QlOs10V05m IHdpZHRoPSIxNSUiIHZh hJthus2ptB6sUw0+PGNv iYX0gQT4nQ0mJvZbMsV6 OEbuC419OpVhiLDf Tgxnz4mhr6kfcUl2DyFz WCVhulGhkYtySNY1q4Sw Cs42J7QknQvle4InDlf1 mq54wRZin7Y7aXJ7 X0YvIUTexdocvBWtiOsl LN8bHXAzyokuOAHvxO8q AZVnT6o1IjGfZxY5LVmc C5BjvdM6JMRqdASh MNwkLJJ1Y13pr7V9ZEIs JGOlRDN3fRN1tA9xnKcp bjogbGVmdDsgdmVydGlj GBvsUWokM622ISWe aQzvGWMkfI1rEMXfeQQa yKseVP4lWFUtwejkXn9P MCAYYYYXLGHHKCZZCN6E LY13K6AkWwq0KDSb kWdtGT2niRGbIZwmZf5s rZjlpNukQW0eVZEolgdu WUZbzV8rEGAviSQvpQok NL7fCAKqdacoa861 KxSgRTT5NSZfyETcJ9Xa uP7qUdEiHCTlXEEaA9Ap hPRyOYwiF700WJmbCuA8 NCBrqeSxV7NlKXDa tScuKlV0n5S1Ok5sFW4k DR7cPLClPP60IK97lTQg d3T2uWF6A2LzRWDqdgvj zdkdbPT6URWlQZEf jW08aMFpMMwlQd9vy6D9 t731PFRqHIZvcH16Fg0y pAdtPUHqnWAXoC4mooub k4mwguwoXeYlKQGi HWi3SXj2TWYtqVqoRtMl GWQ7UyX7ULA0iRKqhQ4m cYcnjnqpuA9uLrz+MjEg XSOeiiO7R3DaPlp0 GZHpmYaiZZ0siYBsIUzt Qj1mbKiblYnuZF9xUJJk cgddWCEcaG8qJPPidHMl oEtxXI6sDYOxpasn t597InUpPIG7YRLgpPKz F9BbxC1gCoBkCKJwGHDa U1WroBDkXTpcA691RCrz GwL9RCBlakJtY8Vr NABdqJrzQgR3o8P2Cs8U HQ8opHZ2F9DaVtz5WBYs pTxwNW1vqLWwCZfaHn5t rGeaxNezGA4eUQQb ozfvGKZjxD2hVAKzeXTi lJpnXV6eNWFlfuvij849 RvBxJMJ5NQUhgEMvI0Wv kK2wPmCcBDFhFILa G3OikUWgEDueJ206JMsu AbM4DQOzxkGjY4GvLNQc jVknJcQ3g6G4Dk5JzSGo A1ScB3q3D5XlMiyb dHI+RL18XGZeVS29kODf vNOze3lymOg9OlHhKFEw ASE9tQxtDUqpj5FxQTZj U92doIDbl0E4NEZy aDtrzRPsHeAlxXC3gX9l RWnyfysvi2jerlcgElfm q0sdzf99xX99U50kRJqi ZHRoPSIzMCUiIHZh qUulpv2btN3cEe4+PGNv fSP7wZP1cC2hFxSgJsJ5 FCmhC854UcIyoOWvBhuf g4dpb9inwNd8ZnOx EUMierChkQdrRMN0n3Gy Qn82Y54fNQxpJKSqGVVl FKZkFEBufLlvtu7tqW1a Ii8+VB4oi2vjkk07 fD93iBB+CFRuBIG1xFim QMagXWPybT9wDQysHxT1 HSBpQpRswM64gGGeTYji Gv8sxLuoqYojBJ9q UDTduittu513WjGdj8dc MAJrfBSbJDviQDT7X55g p0I8HEVcEQXcKRC8eQW7 gK9knTwzqanlkYIm dDsgdmVydGljYWwtYWxp Z156DXCqrGdxGoFuxGCn Z2vtniTPNT9dVzmevTP+ EJZdRUA8gKcuSKxk CRRrzN2cGORiK8r1YxFo YpC4RJkiY8MzbjZ6FWBc bAUyLWXgjFJFmD8fobxe p9gxrelaRrOcDEUy CXe5BQx6KLWwcBfwIeWr BBJ8FrS9RYC2gXWxiY6c cAdzwlyjsJ3kHoz+RklO OjwvdGQ+PHRkIHN0 bPdnCMpcICXvcC5bFSUw S0j6WkZgKnM9NQaoL9Br tgV2ERSgtZNmOEZxhDOY zL9tagdha4pnywxx TmNuHWAzSRl9PBr1OKFp lFcnLaTkZLN8MvE7VWB6 rDJqkE6boLhlaiajvO5b Oyc+TVJOOjwvdGQ+ YHJrIBK6wFgcJBtnJSXu hY0nAVNtF9u5NmGpPfY1 SOnqZ9HdcvE4TVCqvDJz RHMzdYXYwZ4xtkha p2ugksjhPcWvHEXeDCp5 HMx4VDIgrWvmQzErHPJ1 CsR8ZGJ0qCQpoY1xgXee tpjwmX4fZbr+UGF5 TWY2NJ63CK57V6ZdDzxl dGFibGU+PHRhYmxlIHdp ZHRoPScxMDAlJyBzdHls NL9nKq4aFYDlPMCd bGxh (more content not included)... Normal [facility] Auto Diffon 09-08-2022 Basophils/100 WBC (Bld) 0.7 % Normal 0.0-2.0 F [facility] Comment on above: Order Comment: Order Added by Discern Expert. Performed By: #### 2 793623, 1789253, 6594895, 4676076, 14835218, 8347456, 1579104 ####[facility] [address] [place] [address] Basophils/Leukocytes Auto (Bld) [Pure # fraction] 0.1 E9/L Normal 0.0-0.2 [facility] Comment on above: Order Comment: Order Added by Discern Expert. Performed By: #### 2 332772, 5210421, 8850229, 6669335, 41758772, 2232202, 9014570 ####[address] [address] Eosinophils/100 WBC (Bld) 1.3 % Normal 0.0-8.0 [facility] Comment on above: Order Comment: Order Added by Discern Expert. Performed By: #### 2 649602, 9070706, 3253171, 9635246, 32753024, 6931312, 9216521 ####[address] [address] Eosinophils/Leukocytes Auto (Bld) [Pure # fraction] 0.1 E9/L Normal 0.0-0.5 [facility] Comment on above: Order Comment: Order Added by Discern Expert. Performed By: #### 2 845359, 0839178, 6610490, 5829311, 52544470, 4796690, 7294815 ####[address] [address] Lymphocytes/100 WBC (Bld) 22.3 % Normal 14.0-50.0 [facility] Comment on above: Order Comment: Order Added by Discern Expert. Performed By: #### 2 511974, 0299341, 4997420, 0977229, 21028768, 3594399, 4924501 ####[address] [address] Lymphocytes/Leukocytes Auto (Bld) [Pure # fraction] 2.2 E9/L Normal 1.0-4.0 [facility] Comment on above: Order Comment: Order Added by Discern Expert. Performed By: #### 2 666160, 3480717, 5412474, 1962965, 06646738, 9634922, 7155615 ####[address] [address] Monocytes/100 WBC (Bld) 7.4 % Normal 4.0-14.0 [facility] Comment on above: Order Comment: Order Added by Discern Expert. Performed By: #### 2 236364, 0280148, 0615379, 6839652, 69439963, 6684889, 8460461 ####[address] [place] [address] Monocytes/Leukocytes Auto (Bld) [Pure # fraction] 0.7 E9/L Normal 0.2-1.0 [facility] Comment on above: Order Comment: Order Added by Discern Expert. Performed By: #### 2 640562, 4822767, 7997908, 6498326, 09605961, 3674937, 5708955 ####[address] [place] [address] Neutrophils/100 WBC (Bld) 68.3 % Normal 36.0-75.0 [facility] Comment on above: Order Comment: Order Added by Discern Expert. Performed By: #### 2 627424, 8916805, 2030088, 5637650, 27740124, 8972721, 9829923 ####[address] [address] Neutrophils/Leukocytes Auto (Bld) [Pure # fraction] 6.7 E9/L Normal 2.0-7.5 [facility] Comment on above: Order Comment: Order Added by Discern Expert. Performed By: #### 2 606376, 2706620, 1208267, 0469501, 14335164, 2986903, 6300490 ####[address] [place] [address] BMPon 09-08-2022 Creatinine [Mass/Vol] 0.5 mg/dL Normal 0.5-1.3 [facility] Comment on above: Performed By: #### 2 603307, 6921823, 4365875, 0471533, 33001301, 5196574, 6771711 ####[address] [place] [address] Urea nitrogen [Mass/Vol] 8 mg/dL Normal 5-21 [facility] Comment on above: Performed By: #### 2 989053, 4597844, 0086964, 0082143, 66912783, 7914354, 1828532 ####[facility] [address] [place] [address] Urea nitrogen/Creatinine [Mass ratio] 16 No Units Normal 10-20 [facility] Comment on above: Performed By: #### 2 974325, 3523978, 3828164, 1291807, 07554391, 5942848, 4461846 ####[facility] [address] [place] [address] Anion gap [Moles/Vol] 12 mmol/L Normal 6-16 [facility] Comment on above: Performed By: #### 2 859864, 1277340, 9323292, 2716283, 43856096, 9087686, 8865562 ####[facility] [address] [place] [address] Calcium [Mass/Vol] 9.2 mg/dL Normal 8.9-11.1 [facility] Comment on above: Performed By: #### 2 221079, 2790159, 8351550, 4335164, 46888958, 0853290, 8948909 ####[facility] [address] [facility] [place] [address] Chloride [Moles/Vol] 103 mmol/L Normal 101-111 [facility] Comment on above: Performed By: #### 2 564807, 5347080, 0206425, 9543307, 20532308, 2921624, 2599907 ####[facility] [address] [place] [address] CO2 [Moles/Vol] 22 mmol/L Normal 21-31 [facility] Comment on above: Performed By: #### 2 120231, 1782963, 9577172, 7139106, 26755456, 1895497, 9049485 ####[facility] [address] [facility] [place] [address] Glucose [Mass/Vol] 92 mg/dL Normal 55-199 [facility] Comment on above: Result Comment: If t his glucose result represents a fasting glucose, interpretation should refer to the following reference range: 55-99 mg/dL Performed By: #### 2 329235, 3012150, 5899261, 2668735, 28684574, 0081437, 0745958 ####[facility] [address] [place] [address] Potassium [Moles/Vol] 3.3 mmol/L Low 3.5-5.3 [facility] Comment on above: Performed By: #### 2 256701, 6204376, 7760027, 8374487, 66654145, 4557568, 5279332 ####[facility] [address] [place] [address] Sodium [Moles/Vol] 134 mmol/L Low 135-145 [facility] Comment on above: Performed By: #### 2 589856, 1846373, 1264556, 2227331, 15514916, 1718263, 8106597 ####[address] [address] CBC w/ Auto Diffon 3 Erythrocyte distribution width (RBC) [Ratio] 13.4 % Normal 10.9-14.2 [facility] Comment on above: Performed By: #### 2 453102, 5611639, 0454607, 9928192, 68639574, 8640464, 0141207 ####[address] [address] Hematocrit (Bld) [Volume fraction] 38.9 % Normal 34.0-46.0 [facility] Comment on above: Performed By: #### 2 711324, 4429657, 5524443, 9448606, 21255517, 1906873, 5883435 ####[address] [place] [address] Hemoglobin (Bld) [Mass/Vol] 13.4 g/dL Normal 12.0-16.0 [facility] Comment on above: Performed By: #### 2 649026, 6357221, 9903296, 9580766, 27371210, 9772643, 8425667 ####[address] [place] [address] MCH (RBC) [Entitic mass] 29.2 pg Normal 27.0-34.0 [facility] Comment on above: Performed By: #### 2 581982, 6125463, 4559356, 8650449, 56745595, 6131502, 3675057 ####[address] [address] MCHC (RBC) [Mass/Vol] 34.3 g/dL Normal 31.4-36.0 [facility] Comment on above: Performed By: #### 2 683555, 1259734, 0714217, 6995128, 74224646, 3196372, 2684138 ####[place] [address] MCV (RBC) [Entitic vol] 84.9 fL Normal 80.0-100.0 F [facility] Comment on above: Performed By: #### 2 748557, 3705209, 3661717, 1906326, 83284742, 2720039, 8752191 ####[address] [address] Platelet mean volume (Bld) [Entitic vol] 8.6 fL Normal 6.4-10.8 [facility] Comment on above: Performed By: #### 2 401978, 8809670, 5456625, 5606017, 41690885, 6471634, 3917307 ####[address] [address] Platelets (Bld) [#/Vol] 262.0 E9/L Normal 150.0-500.0 [facility] Comment on above: Performed By: #### 2 555926, 6337659, 8599350, 9532931, 51070443, 2619304, 6690088 ####[address] [address] RBC (Bld) [#/Vol] 4.6 E12/L Normal 4.3-5.9 [facility] Comment on above: Performed By: #### 2 408043, 9730974, 7214763, 3936606, 35054306, 2956313, 6642657 ####[facility] [address] [place] [address] WBC corrected for nucl RBC Auto (Bld) [#/Vol] 9.9 E9/L Normal 4.0-11.0 [facility] Comment on above: Performed By: #### 2 702794, 8561004, 9550570, 8894760, 55141464, 9499609, 1816894 ####[facility] [address] [place] [address] Consent for Treatmenton 08-25 Consent for Treatment [id number] #[id number]:127 Normal [facility] Discharge Instructionson Discharge Instructions [id number]#[id number]:127 Normal [facility] ED Clinical Summaryon 2022 ED Clinical Summary [address] [address] ED Clinical Summary Person Information Name: ROQUE PIERSON/[facility] Age: 22 Years : 2000 Sex: Female Language: Argentine PCP: Caryn Aviles MD Marital Status: Single [...] 09/08/2022 04:05:14 09/08/2022 04:05:14 09/08/2022 04:05:14 ADDRESS: [address] [place] [id number] PHYS DOC NOTES: MEDICAL INFORMATION: Prescriptions Given: New Medications [facility], [address] [place], [place] [id number], [phone] metoclopramide (Reglan 10 mg Tab) 1 Tablets [...] Gravidarum Follow up: With: Address: When: Julius KEIRA [facility], [address] [place] [address] [place] [address] Business ([employer]) In 3 days 09/11/2022 Comments: 1 every 8 hours as needed for nausea and vomiting. Please follow-up with OB for further evaluation and management. Please return to the ED for any new or worsening symptoms. With: Address: When: Caryn [place] [place] [address] Business (1) In 3 days 09/11/2022 DIAGNOSIS: Nausea/vomiting in Normal [facility] ED Note-Physicianon 09-08-19 ED Note-Physician Basic [...] and Complexity of Problems Differential Diagnosis: [] [facility] Data External documents reviewed: [] My EKG [...] q6hr, # 14 tab(s), Refills(s) 0, Pharmacy: [facility], 173, cm, 09/08/22 1:24:00 EST, Height/Length [...] 5 mg/mL Inj, 10 mg, IV Push [id number] [F], 1000 mL, IV potassium chloride 20 mEq ER Tab, 40 mEq, Oral Disposition Plan Discharge Prescription List Prescriptions Reglan 10 mg Tab, 10 mg= 1 tab(s), Oral, q6hr Follow-up With When (more content not included)... Normal [facility] Comment on above: Result Comment: Elec [...] or sour. Examples include lemonade, damián janak, lemon?[place] soda, ice water, and sparkling water. ? [place] your teeth or use a mouth rinse after meals. ? Talk with your health care provider about starting a supplement of vitamin B6. General instructions ? Take wdhw-kve-thycwgz and prescription medicines only as told by [...] This i (more content not included)... Normal [facility] ED Patient Summaryon 023 ED Patient Summary [place] [id number] Patient Discharge Instructions Person Information Name: ROQUE PIERSON Age: 22 Years Arrival Date: 09/08/2022 01:15:13 Discharge Diagnosis: Nausea/vomiting in Primary Care Physician: Caryn Aviles MD Provider Information Primary Provider: Sissy Shah DO Advanced Drip Molder:None The exam and treatment you received in the Emergency Department were for an urgent problem and are not intended as complete care. It is important that you follow up with a doctor, nurse practitioner, or physician?s diagnostic assistant for ongoing care. If your symptoms [...] Follow-up Instructions: With: Address: When: Julius CROCKETT [facility], [address] [place] [address] [address] [phone] Business (1) In 3 days 09/11/2022 Comments: 1 every 8 hours as needed for nausea and vomiting. Please follow-up with OB for further evaluation and management. Please return to the ED for any new or worsening symptoms. With: Address: When: Caryn [place] [address] [place] [address] Business (1) In 3 days 09/11/2022 In the event that this physician does not participate in your insurance network, please consult with your insurance company to find a nearby participating provider. Patient Education Materials: Hyperemesis Gravidarum A MESSAGE TO ALL PATIENTS REGARDING OPIOIDS PRESCRIPTION OPIOIDS: WHAT YOU NEED TO KNOW Prescription opioids can be used to help relieve ogxqeumm-bx-icqvdz pain and are often prescribed following a [...] from the (more content not included)... Normal [facility] Hep Func Panelon 09-08-2022 Albumin [Mass/Vol] 4.3 g/dL Normal 3.3-5.0 [facility] Comment on above: Performed By: #### 2 730291, 5844187, 3275789, 9650274, 37161100, 0679487, 4129401 ####[facility] [address] [place] [address] Albumin/Globulin (S) [Mass conc ratio] 1.3 Normal 1.1-2.2 [facility] Comment on above: Performed By: #### 2 529993, 8213558, 8990908, 4746256, 45513889, 4964058, 1977929 ####[facility] [address] [place] [address] ALP [Catalytic activity/Vol] 61 Int._Unit/L Normal 21-98 [facility] Comment on above: Performed By: #### 2 658501, 3809984, 9735403, 7915370, 80822469, 8916232, 9855854 ####[address] [place] [address] ALT No additional P-5'-P [Catalytic activity/Vol] 61 Int._Unit/L High 6-46 [facility] Comment on above: Performed By: #### 2 665656, 0895721, 5136454, 3143563, 39607695, 8336730, 3422987 ####[facility] [address] [place] [address] AST [Catalytic activity/Vol] 48 Int._Unit/L High 5-43 [facility] Comment on above: Performed By: #### 2 279052, 0037089, 6060392, 3532908, 50726675, 2558272, 0250448 ####[address] [place] [address] Bilirubin [Mass/Vol] 1.1 mg/dL Normal 0.0-1.1 [facility] Comment on above: Performed By: #### 2 588384, 0685909, 9470130, 7268321, 37581977, 5099931, 2814209 ####[address] [place] [address] Bilirubin.direct [Mass/Vol] 0.3 mg/dL Normal 0.1-0.4 [facility] Comment on above: Performed By: #### 2 064253, 3998264, 9909259, 4433044, 68395231, 7022272, 7273470 ####[facility] [address] [place] [address] Bilirubin.indirect [Mass or moles/Vol] 0.8 mg/dL Normal 0.1-0.9 [facility] Comment on above: Performed By: #### 2 226519, 8924993, 9827151, 0685847, 47633426, 4409400, 6302954 ####[facility] [address] [place] [address] Globulin (S) [Mass/Vol] 3.3 g/dL Normal 1.4-4.0 [facility] Comment on above: Performed By: #### 2 153799, 5684876, 7989095, 0677589, 56698088, 8507327, 3840897 ####[facility] [address] [place] [address] Protein [Mass/Vol] 7.6 g/dL Normal 6.0-7.8 [facility] Comment on above: Performed By: #### 2 729093, 7617960, 5656971, 5217328, 36337142, 2964013, 5992630 ####[facility] [address] [place] [address] Lipase Levelon 09-08-2022 Lipase [Catalytic activity/Vol] 27 U/L Normal 13-58 [facility] Comment on above: Performed By: #### 2 880250, 7177796, 8035800, 0796197, 00821862, 2966710, 8784297 ####[facility] [address] [place] [address] Magnesiumon 09-08-2022 Magnesium [Mass/Vol] 1.9 mg/dL Normal 1.3-2.4 [facility] Comment on above: Performed By: #### 2 599511, 7901177, 4877110, 6864942, 57993201, 5349341, 2360805 ####[facility] [address] [place] [address] UA With Cult Reflexon 2022 Bacteria LM Ql (Urine sed) TRACE Normal Trace [facility] Comment on above: Performed By: #### 2 697408, 9356403, 7298840, 2955429, 14708276, 4705065, 0415960 #### [facility] [address] [place] [address] Bilirubin Ql (U) 1+ Abnormal Negative [facility] Comment on above: Performed By: #### 2 000289, 0769194, 3267636, 3851916, 78583423, 6528842, 7035238 #### [facility] [address] [place] [address] Clarity (U) CLEAR Normal Clear [facility] Comment on above: Performed By: #### 2 508290, 0948619, 8374058, 0373165, 02907579, 6930888, 4946408 #### [facility] [address] [place] [address] Color (U) YELLOW Normal Yellow [facility] Comment on above: Performed By: #### 2 528248, 8030685, 3300564, 4469404, 82197257, 4997934, 7205408 #### [facility] [address] [place] [address] Epithelial cells.squamous LM.HPF (Urine sed) [#/Area] 0-2 Normal 0-2 [facility] Comment on above: Performed By: #### 2 318666, 3851171, 4983349, 6307575, 22546950, 9991688, 9288181 #### [facility] [address] [place] [address] Glucose Test strip (U) [Mass/Vol] Negative Normal Negative [facility] Comment on above: Performed By: #### 2 920772, 3590716, 0255953, 4214164, 49898093, 2976609, 3951506 #### [facility] [address] [place] [address] Hemoglobin Ql (U) Negative Normal Negative [facility] Comment on above: Performed By: #### 2 271843, 4847564, 3863604, 0101001, 12455964, 4544938, 5072870 #### [facility] [address] [place] [address] Ketones (U) [Mass/Vol] 3+ Abnormal Negative [facility] [facility] Comment on above: Performed By: #### 2 518935, 9219640, 4512652, 5161996, 45237019, 4686225, 8487812 #### [facility] [address] [place] [address] [place].[email or web address]/[email or web address].R BC (Bld) [Mass ratio] 0-3 Normal 0-3 [facility] Comment on above: Performed By: #### 2 520873, 7198479, 7387210, 3162958, 49443059, 9424389, 6222349 #### [facility] [address] [place] [address] Mucus Ql (Urine sed) TRACE Normal [facility] Comment on above: Performed By: #### 2 355708, 8590356, 3916226, 0213919, 28700696, 4525352, 6610224 #### [facility] [address] [place] [address] Nitrite Ql (U) Negative Normal Negative [facility] Comment on above: Performed By: #### 2 847926, 8243399, 2780933, 1051521, 76555837, 1373821, 3062156 #### [facility] [address] [place] [address] pH (U) 6.0 [pH] Invalid Interpretation Code 5.0-9.0 [facility] Comment on above: Performed By: #### 2 618533, 3790981, 7292942, 8084730, 04009061, 9516776, 1355750 #### [facility] [address] [place] [address] Protein (U) [Mass/Vol] TRACE Abnormal Negative [facility] Comment on above: Performed By: #### 2 684308, 0906400, 8219792, 3501856, 04483307, 8429192, 1413481 #### [facility] [address] [place] [address] Specific gravity (U) [Rel density] >=1.030 Invalid Interpretation Code 1.005-1.030 [facility] Comment on above: Performed By: #### 2 487329, 2471756, 4032388, 6144271, 94043675, 4229370, 2270780 #### [facility] [address] [place] [address] Type of Urine collection method Clean Catch Normal [facility] Comment on above: Performed By: #### 2 996080, 5607488, 6611093, 5150453, 47568720, 8010328, 9797334 #### [facility] [address] [place], [place] [address] Urobilinogen Qn (U) 1.0 {Andrea'U}/dL Normal 0.0-1.0 [facility] Comment on above: Performed By: #### 2 026888, 2689063, 7445895, 6712587, 84678109, 5411812, 0971715 #### [facility] [address] [place] [address] WBC Auto Ql (U) Negative Normal Negative [facility] Comment on above: Performed By: #### 2 248747, 1894721, 0696296, 5557671, 66882732, 3561956, 2218588 #### [facility] [address] [place] [address] WBC LM.HPF (Urine sed) [#/Area] 0-5 Normal 0-5 [facility] Comment on above: Performed By: #### 2 983557, 4138720, 6861693, 1088422, 43840537, 8607439, 4258359 #### [facility] [address] [place] [address] eGFRon 09-08-2022 GFR/1.73 sq M.predicted among blacks MDRD (S/P/Bld) [Vol rate/Area] mL/min/{1.73_m2} Normal >=59 [facility] Comment on above: Order Comment: Order added by Discern Expert. Result Comment: eGFR is race adjusted. AA=. Performed By: #### 2 008595, 7658567, 4024934, 6833935, 65670557, 4567699, 7223840 ####[facility] [address] [place] [address] GFR/1.73 sq M.predicted among non-blacks MDRD (S/P/Bld) [Vol rate/Area] mL/min/{1.73_m2} Normal >=59 [facility] Comment on above: Order Comment: Order added by Discern Expert. Result Comment: Sales Facilitator emil kidney disease could be indicated at eGFR's of less than 60 mL/min/1.73m2. Kidney failure is indicated at less than 15 mL/min/1.73m2. Performed By: #### 2 663520, 5339896, 6844579, 8902924, 48282565, 8935069, 2908141 ####[facility] [address] [place] [address] CBC with Auto Differentialon 09-04-2022 Absolute Eos # 0.20 [facility] Absolute Lymph # 1.70 [facility] Absolute Laurel # 0.60 [facility] Basophils (Bld) [#/Vol] 0.10 10*3/uL [facility] Basophils/100 WBC (Bld) 1 % 0 - 2 % [facility] Differential Type YES [facility] Eosinophils/100 WBC (Bld) 2 % 0 - 5 % [facility] Hematocrit (Bld) [Volume fraction] 40.9 % 36 - 46 % [facility] Hemoglobin (Bld) [Mass/Vol] 13.9 g/dL 12.0 - 16.0 g/dL [facility] Interpretation and review of laboratory results Abnormal [facility] Lymphocytes/100 WBC (Bld) 18 % 15 - 40 % [facility] MCH (RBC) [Entitic mass] 29.5 pg 26 - 34 pg [facility] MCHC (RBC) [Mass/Vol] 34.0 g/dL 31 - 37 g/dL [facility] MCV (RBC) [Entitic vol] 86.9 fL 80 - 100 fL [facility] Monocytes/100 WBC (Bld) 6 % 4 - 8 % [facility] Platelet distribution width (Bld) [Ratio] 13.0 % 12.1 - 15.2 % [facility] Platelets (Bld) [#/Vol] 252 10*3/uL [facility] RBC (Bld) [#/Vol] 4.71 10*6/uL 4.0 - 5.2 m/uL [facility] Segmented neutrophils/100 WBC (Bld) 73 % 47 - 75 % [facility] Segs Absolute 7.20 High [facility] WBC (Bld) [#/Vol] 9.8 10*3/uL [facility] CMPon 09-04-2022 Albumin [Mass/Vol] 4.5 g/dL 3.5 - 5.2 g/dL [facility] ALP (Bld) [Catalytic activity/Vol] 73 U/L 35 - 104 U/L [facility] ALT [Catalytic activity/Vol] 17 U/L 5 - 33 U/L [facility] Anion gap [Moles/Vol] 11 mmol/L 9 - 17 mmol/L [facility] AST [Catalytic activity/Vol] 14 U/L NINF - 32 U/L [facility] Bilirubin [Mass/Vol] 0.4 mg/dL 0.3 - 1 .2 mg/dL [facility] Calcium [Mass/Vol] 9.3 mg/dL 8.6 - 10. 4 mg/dL [facility] Chloride [Moles/Vol] 103 mmol/L 98 - 10 7 mmol/L [facility] CO2 [Moles/Vol] 23 mmol/L 20 - 31 mmol/L [facility] Creatinine [Mass/Vol] 0.47 mg/dL Low 0.50 - 0.90 mg/dL [facility] GFR/1.73 sq M.predicted MDRD (S/P/Bld) [Vol rate/Area] - PINF [facility] Comment on above: Effective May 27, [...] 103 mg/dL High 70 - 99 mg/dL [facility] Interpretation and review of laboratory results Abnormal [facility] Potassium [Moles/Vol] 3.8 mmol/L 3.7 - 5.3 mmol/L [facility] Protein [Mass/Vol] 7.3 g/dL 6.4 - 8.3 g/dL [facility] Sodium [Moles/Vol] 137 mmol/L 135 - 144 mmol/L [facility] Urea nitrogen (BldV) [Mass/Vol] 4 mg/dL Low 6 - 20 mg/dL [facility] Urea nitrogen/Creatinine (Bld) [Mass ratio] 9 9 - 20 [facility] Coding Summary.on 09-04-2022 Coding Summary. CD:[id number] Gh0bWw+PGhlYWQ+PE1FV BBhT00voFTziJ3CE9zFT V4DEEEGWWTZNH5AKW1ub GT0MWywR0LcgrGv RzguqSVkMK99IWh6AKN9 zJczVGhagM9zmWQmT2z7 CvRdWN69dT62CMojEODc IhM3KpYrbhckgBSv P7ajFfHquAQgVcb+PHRh YmxlIHdpZHRoPScxMDAl EmMlmQrgVX9tWk5eQEWk LWNvbGxhcHNlOiBj l3kvXQVpZLemKC4mtTyc N7LopQE7TDRzk1r6Uf39 dHI+PKHpBMS7qTixYFaa i788MqRsq2abUBB8 kMGlFDsbLJV4O96ax1K7 LIIcTZLuXPX0sWZ7tZ9r hGzipwnfI2UcyCHdWeJ8 RKG1rWGooM8zlDwz ntxkhT3dHxi+I38YGG7Y SEHOCD3DIqu2G2NnJjde dHI+RA06FFIzCJ24hFOy nSBja9whaQh6IiLw XTBeQHT3jZzsCSgfx7Zp ICNcK49saOJmw6K3UVSz qHulfHKrGhKjhLX7mF0p HPonahtad0dwtxlo Mfbko3uuke71zE47R40a SNalPKGpUGJ7EYSmCGYo iTgzau7ncM6zFv4+IDxj z7ntk2bxoDe4CqYa DHJxgsFgbFkxOIZ4g2Sw Ss23S0QrjOjuy0MpDsr0 us59gYBij9R5vMN1WKmt IRHboJ7vHVkxIbV1 ZQTnJmWxgC56xGZmLIka Xf3jgVgtnXppGZ4jMQBv yrstARCmoU0uINPuxKLa oIaqCQ3yXEVjwwyg i017MfIcVKS5IELvsSUo G0AvtS0kRzRgJMPpZLRh C1CmoGDyJRxaI438IOwj BfN1VABjjjKjG9Th IIDqoOzoFfG0f7Z1Qr0D n1WdthnzJRJ6WOncXBIz IwBdGzGtFuO6J6QoXdg1 ZOVzsLrxYX2eM1Vi LRYaoeanixcfgNB0FMYw HVIgpC19xCLzPJksRl6t a9Q4e027AZNoJGPmaX31 Pr9ncYozRVAukCVW oZ9nzweqj6cgpuarQfPu BACkZCb3QRv0UIPrdZvt RyAxBNE8UnT1DZD5oZGu xX2elHxcovkomD0a Oyc+Q78msD7cQKL2KQW3 rmgeAIQqhkKdXA85FR15 W2EeCdyieFKjiGR+PGRp ikXatFfiAC3nBpYf d6yhq3KgUQgrA7DmHAMw GHwqSgy6XXHfNUT6dNQ0 yZ8rFIHhPVisf9B4tWQ7 A4ZfopZcsf7mq7wz CQRwJIgjQ12kcUMvj0X0 JYIkePX8QEXqsUloOmBr iF07Hxv+KOZcyBmeb9Es Pnldw7awf9eqzGt4 IjMwJSIgdmFsaWduPSJ0 q2OlXh38M24lVAmxDJOo PVGnHDBoLLIupIayft5d yV2kJo3+PGNvbCB3 gPV1eP3bVRRnInA9GLlk Y188OwNbdXPcTdmwf2fc e7bviKa9JtPuLGYnkgZc nPqcVMH8n3UgRo20 I88cDAwfFKVaIMTiCGSb EABnlOnpdd9pxS8cYr7+ LZ8yv7zqqx69qL04vEM+ HYJlYUL0nZxpUNmu ILAftZ5zYRdjPaC6LVQq IdRbtW99dETySXlgWo2p xFwwnSqyZX6uGXSbymnh d712MgTtw0ujPSTj mAZrUJavMHW8V01tu8N5 IXOrAHBbEIY0gBO5jV0w bGlnbjogbGVmdDsgdmVy dBbsCIzwWIdxM011 IHRvcDsnPlBhdGllbnQg OhFtZBq2D8UtDid2YVVo pOjyKW8oqWOmIGkxGn2z yMnbqBvqMA5eIUPd mswng614YdRyg9ppSJWa cDVhBHjeIWC6M53il0L5 KGHtJXGrMIP7xPY0bL1l bGlnbjogbGVmdDsg dtDrtDirOYdkZFglZ552 IHRvcDsnPkJpcnRoIERh iAC7JM36FX05qCQgp6D1 vQO4J9LmBJSjienl tbltnPB5JCRxRPOgfN88 Kp1hsOcwMq1oFGXlGET0 EHOzeQScJ6IxrL8vRkQt HJLgBVNdM2ZbrNFh EJcoQ106CFvuMeZ3SFSq zoYdP3OpLHSxvMpoZcQ2 l4M6Yd4CD2Z4LK23QH88 hDJgw3X6mXC5U7Ek YYYrawyqyrtzsUO9FWNf DITngS87Au8iaHgzEt5z TQQaEXD6VNYmjLXhE3Er kN1vBnRiLMGwPXLt Q9EenDOpHOdqP418FIal TeG8YDEuokIlG2LaVJGe wBmuUaA8n3W2Zq4QKPh9 WQ16UM06rKEfk3I5 uEK0H1QnALQyffulmfhg hOX7UHQtUWYljJ56Xl8d cWmrAq0lIDMjNJX7MRZc kDVwT0MxqC2fKhUe GLInPHLjM9ZyjHDjAVmb U531PApkJqJ5ULXounTu D2HeDLIvcInhFoD9z6J6 Ku3KKHLbNX73DXR4 oKS6LX54LA85M1TsSbrz dGFibGU+PHRhYmxlIHdp ZHRoPScxMDAlJyBzdHls MA2fEm5vGIWnADVd nCkhrOBzWkQfw4clKWSb ZLpiDA9jqEdhT7LsuFU1 EJAiz0y1Aq18G91hZ4Di dXA+MAKylDK3uCY5 lS9tZlZdBtF3XTxqB924 JyIwyXJfInmov3jdc7mn sVg8BtT7OGMbfqWyyWzd YXJ3n0KdYg89K39m IHdpZHRoPSIxNSUiIHZh oTtjpa5paC9cBk3+PGNv tPT3qNL5dQ1pPiWdEbZ6 ZIzhI013VuItgBJh Riqcb4hpo2fuwXk5BcFq NHNxwxJfdGydDHK3g3Sp On02B2XnbVhyp9PgKxi9 ad76yPExx0H0gBP9 Y5YcMKQpnhspxZCdrTwo WD1pESQcwgziBGUspR1p RRPgS1z2MsMeVlL5EUxu H8MobzO2KPMzwZKk ODvnYKC8H72ko6W7KSVi HWQxPRO6sPA3iR9dzLpr bjogbGVmdDsgdmVydGlj CTdfMOupE373BDIs wWvpZVZiwG9mPTJqrGMc eIijRQ8xGDNqywfuAh8L RSZVEBVTHJDJYQRFLB0W KH63J4DiZxe6CBQy oXlgDW6dvZFwUYkzYo5y pAjdeBvmKJ6pONNykell SQDqzN0sKJOwcANvvQer EE4oDXVvuwlmf520 DhFoVIT2LTGmcILmA3Tc hV2fBgIsGCRgITYqQ4Mb lCPcBOigZ891XXzkEjL0 VRVcokNuW3QoGZZb uCupEuQ6r8T1Re3cWO6p EG8kIPRrBL01JT61aEZx o2T5lTK2J4TcBVGrnsaj nwumpUE8KLWgEZAt lQ59eUUpZRdkDy0ns9C1 a918CXYoJSEmiI05Sg1e oFwmXMPjlPHPiT0jasht i1qmegwiVxAlMPQs RQl8PWj7EKDdiMptDhHm AHE7DlN2TFU5lEFveN4z iIskvgtxfG1iLwa+MjEg NADwozN9H7AaBle0 DBJokDeyPL1ieNDkTWgz Xw8piDwtkDtlST6hMMYj qwwvQTCkfM7oSURkrDDl dFytNY5mYTGtrbmc u710SoNnJKX2RPDmqNCy B1DmoL5dMpGoKRKbLFGh J6ZuoMQdAEzsY139TJrc UuA2YBZemeCxD1Ug DJIqcXftCeN5m9P5Qw2D IU7hoGW7E7BcRpx5IETs mCodZH9znQStZYqfWi4r vLmhyUtsXA0kVGFc jtokIKQrxR6mNKCglCTv wXhhOJ6xOCTwdhtwl644 HuSiWDM6VGNmpEAuL8Of fI9vXsRuXHLhTKXm E4BelJGnMJjiR342ZDlb KdV6GBCdlaJrD0NnCNMp bSqpIyM4x3O3Pg2RrNHq H3GgL1h9E1LiVrps dHI+WW18AXVkWB77oDIr pJVxe1tkzZt8ZjLmFIHy HIY1cJneEZbbr4ZdBJUg F91lpKWjo6F9YQFc wUwmfCYtPpPalXQ0dC9k DVrrtqtqt4aiznulDnzw i9gqig29eY07H83vFFhw ZHRoPSIzMCUiIHZh qAitnq0zjW8uXf7+PGNv vSJ0cSM9hE7cWyWuFnX7 QMmmL921LnFbpDIeIiti h7aje9fjxSo6AtLa PVHobkLfzYkxQWG8f0Yv Yv42O64xOWvmIHTbRKXv MQYeRVIfbYsfif2wcY1v Ii8+OP6hk9vyfs05 qS10nWU+CQMlXJW2zXqn BMdeHRYumL5kKDttDwC5 ZWXwFgRncF94jMYtLEsn Lc8apZbdnMiuWC0w ZMEhzomfc155WkBoy3et PMSlnKPeYBxxNYA0L15d k9Q8XQZzFIHiMRQ2tMF8 sW5xgYpzzfknpOGp dDsgdmVydGljYWwtYWxp Z808JQCxqNghGrNifOSs Q7pqwfHBJN8pEmkwqNB+ LLKlDLE7oDenPHfq EWQzlL6qCMNlX2t4PwKc JwI4JNsuG4SyteE5TQUy nJWjVTQjoAPNmP0esnde z2aslihjFhUkWELz DWf1JDo1MLFeiTohMbNl HHY0MqS8EDT4pATseF9n jLlquuecaF1pSay+RklO OjwvdGQ+PHRkIHN0 mLdwNLiuEXVknO2pZKEx C6j8EhNmZlK5JYvxI2Xn czW5LRSxpQDvZTTfkPCR qL9tsnvpk9oxheax BjJnGYKtEXc1GBp9TDOz qJhdTzZaZZO7OkV2CWI3 kPZemI6hjBlnzkwscV8r Oyc+TVJOOjwvdGQ+ BCVnLZR7dRwvJEsmXLMf lE4oEEMdG3m5IuZqPhW2 XSdkQ9RgheJ4UFSmxOFz KOFcxUSLpN8logjr x2fxwugrCuAyXJBnNSq4 LZh8CLLelOthMnAqYSQ6 PmL1YEJ7uYCucJ7vjDva bxssjI8uBvu+UGF5 TEE3WS89KM95A5TjKydv dGFibGU+PHRhYmxlIHdp ZHRoPScxMDAlJyBzdHls TR8zMy0bKTKsVUJp bGxh (more content not included)... Normal [facility] Drug screen multi urineon Amphetamine Screen, Ur Negative NEGATIVE [facility] Comment on above: (Positive cutoff 500 ng/mL) Barbiturate Screen, Ur Negative NEGATIVE [facility] Comment on above: (Positive cutoff 200 ng/mL) Benzodiazepine Screen, Urine Negative NEGATIVE [facility] on above: (Positive cutoff 150 ng/mL) Cannabinoid Scrn, Ur Negative NEGATIVE [facility] Comment on above: (Positive cutoff 50 ng/mL) Cocaine Metabolite, Urine Negative NEGATIVE [facility] Comment on above: (Positive cutoff 150 ng/mL) Methadone Screen, Urine Negative NEGATIVE [facility] Comment on above: (Positive cutoff 200 ng/mL) Methamphetamine, Urine Negative NEGATIVE [facility] Comment on above: (Positive cutoff 500 ng/mL) Opiates, Urine Negative NEGATIVE [facility] Comment on above: (Positive cutoff 100 ng/mL) Oxycodone Screen, Ur Negative NEGATIVE [facility] Comment on above: (Positive cutoff 100 ng/mL) Phencyclidine, Urine Negative NEGATIVE [facility] Comment on above: (Positive cutoff 25 ng/mL) Propoxyphene, Urine Negative NEGATIVE [facility] Comment on above: (Positive cutoff 300 ng/mL) Tricyclic Antidepressants, Urine Negative NEGATIVE [facility] Comment on above: (Positive cutoff 300 ng/mL) Drug screen results are to be used for medical purposes only. All positive results are unconfirmed. Testing for employment or legal uses should be sent to a reference laboratory for confirmation. [facility] Urinalysison 09-04-2022 Bilirubin Urine Negative NEGATIVE [facility] Color, UA Yellow Yellow [facility] Glucose, Ur Negative NEGATIVE [facility] Interpretation and review of laboratory results Abnormal [facility] Ketones Ql (U) MODERATE Abnormal NEGATIVE [facility] Leukocyte esterase Test strip Ql (U) Negative NEGATIVE [facility] Nitrite, Urine Negative NEGATIVE [facility] pH, UA 7.0 5.0 - 8.0 [facility] Protein, UA Negative NEGATIVE [facility] Specific [place], UA 1.010 1.005 - 1.030 [facility] Turbidity UA Clear Clear [facility] Urinalysis Comments [facility] Urine Hgb Negative NEGATIVE [facility] Urobilinogen, Urine Normal Normal [facility] Auto Diffon 09-02-2022 Basophils/100 WBC (Bld) 0.8 % Normal 0.0-2.0 [facility] Comment on above: Order Comment: Order Added by Discern Expert. Performed By: #### 2 846292, 9211103, 2701281, 0044947, 94658451, 2614215, 2567435 #### [facility] [address] [place] [address]64 Basophils/Leukocytes Auto (Bld) [Pure # fraction] 0.1 E9/L Normal 0.0-0.2 [facility] Comment on above: Order Comment: Order Added by Discern Expert. Performed By: #### 2 263295, 4738712, 9627987, 7841545, 54906249, 7890464, 5429658 #### [facility] [address] [place] [address] 68448 Eosinophils/100 WBC (Bld) 2.5 % Normal 0.0-8.0 [facility] Comment on above: Order Comment: Order Added by Discern Expert. Performed By: #### 2 940200, 8474808, 0423348, 9755458, 09244020, 0647841, 5656348 #### [facility] [address] [place] [address] 70471 Eosinophils/Leukocytes Auto (Bld) [Pure # fraction] 0.2 E9/L Normal 0.0-0.5 [facility] Comment on above: Order Comment: Order Added by Discern Expert. Performed By: #### 2 266963, 7253115, 2531358, 8215425, 21586382, 0053548, 5071125 #### [facility] [address] [place] [address] 64558 Lymphocytes/100 WBC (Bld) 18.3 % Normal 14.0-50.0 [facility] Comment on above: Order Comment: Order Added by Discern Expert. Performed By: #### 2 165357, 7072935, 1170779, 5063929, 84008523, 1068206, 8549655 #### [facility] [address] [place] [address] 54627 Lymphocytes/Leukocytes Auto (Bld) [Pure # fraction] 1.6 E9/L Normal 1.0-4.0 [facility] Comment on above: Order Comment: Order Added by Discern Expert. Performed By: #### 2 736872, 4785773, 1763838, 4727161, 53230504, 8094175, 7931891 #### [facility] [address] [place] [address] 38672 Monocytes/100 WBC (Bld) 6.8 % Normal 4.0-14.0 [facility] Comment on above: Order Comment: Order Added by Discern Expert. Performed By: #### 2 197081, 4510761, 2109330, 9842359, 79117636, 1014260, 9431504 #### [facility] [address] [place] [address] 17939 Monocytes/Leukocytes Auto (Bld) [Pure # fraction] 0.6 E9/L Normal 0.2-1.0 [facility] Comment on above: Order Comment: Order Added by Discern Expert. Performed By: #### 2 709594, 2962168, 9980602, 6451700, 53941033, 9050799, 9688528 #### [facility] [address] [place] [address] 00988 Neutrophils/100 WBC (Bld) 71.6 % Normal 36.0-75.0 [facility] Comment on above: Order Comment: Order Added by Discern Expert. Performed By: #### 2 605193, 4190845, 4870082, 6407323, 00830574, 4708718, 1695764 #### [facility] [address] [place] [address] Neutrophils/Leukocytes Auto (Bld) [Pure # fraction] 6.2 E9/L Normal 2.0-7.5 [facility] Comment on above: Order Comment: Order Added by Ally Expert. Performed By: #### 2 822264, 7105064, 5562951, 7751940, 08920527, 9541176, 4781330 #### [facility] [address] [place] [address] 29248 BMPon 09-02-2022 Creatinine [Mass/Vol] 0.4 mg/dL Low 0.5-1.3 [facility] Comment on above: Performed By: #### 2 667123, 2675887, 9729534, 4236763, 83272846, 6215679, 0487572 #### [facility] [address] [place] [address] Urea nitrogen [Mass/Vol] 5 mg/dL Normal 5-21 [facility] Comment on above: Performed By: #### 2 897624, 2562608, 1260384, 2716361, 58439681, 6725408, 8792289 #### [facility] [address] [place] [address] Urea nitrogen/Creatinine [Mass ratio] 12 No Units Normal 10-20 [facility] Comment on above: Performed By: #### 2 716698, 7784154, 0476879, 0974449, 29186532, 0521987, 9567167 #### [facility] [address] [place] [address] Anion gap [Moles/Vol] 12 mmol/L Normal 6-16 [facility] Comment on above: Performed By: #### 2 899217, 6556564, 6884258, 4518791, 18039911, 6210270, 7803390 #### [facility] [address] [place] [address] Calcium [Mass/Vol] 9.0 mg/dL Normal 8.9-11.1 [facility] Comment on above: Performed By: #### 2 300004, 8154227, 3284823, 9506528, 69693922, 9168038, 2439685 #### [facility] [address] [place] [address] Chloride [Moles/Vol] 103 mmol/L Normal 101-111 [facility] Comment on above: Performed By: #### 2 640546, 1565215, 0262093, 4130913, 84138502, 3492128, 3228849 #### [facility] [address] [place] [address] CO2 [Moles/Vol] 23 mmol/L Normal 21-31 [facility] Comment on above: Performed By: #### 2 348302, 6731089, 5894495, 0467484, 78929988, 6400378, 3417095 #### [facility] [address] [place] [address] Glucose [Mass/Vol] 96 mg/dL Normal 55-199 [facility] Comment on above: Result Comment: If t his glucose result represents a fasting glucose, interpretation should refer to the following reference range: 55-99 mg/dL Performed By: #### 2 326690, 7388876, 9074178, 5903541, 17892883, 6380888, 9179143 #### [facility] [address] [place] [address] Potassium [Moles/Vol] 3.3 mmol/L Low 3.5-5.3 [facility] Comment on above: Performed By: #### 2 610703, 4347109, 5213285, 8545419, 32574549, 9723512, 4625133 #### [facility] [address] [place] [address] Sodium [Moles/Vol] 135 mmol/L Normal 135-145 [facility] Comment on above: Performed By: #### 2 129087, 5065280, 0545694, 2004533, 39087322, 9662792, 3949212 #### [facility] [address] [place] [address] CBC w/ Auto Diffon 3 Erythrocyte distribution width (RBC) [Ratio] 13.0 % Normal 10.9-14.2 [facility] Comment on above: Performed By: #### 2 620408, 3177899, 9236077, 6151380, 02224210, 9665009, 8585421 #### [facility] [address] [place] [address] Hematocrit (Bld) [Volume fraction] 38.7 % Normal 34.0-46.0 [facility] Comment on above: Performed By: #### 2 596143, 2693139, 0723929, 3421221, 72332080, 1822598, 3204441 #### [facility] [address] [place] [address] Hemoglobin (Bld) [Mass/Vol] 13.2 g/dL Normal 12.0-16.0 [facility] Comment on above: Performed By: #### 2 988295, 6461818, 6872806, 3044972, 33306898, 8196682, 5441898 #### [facility] [address] [place] [address] MCH (RBC) [Entitic mass] 29.3 pg Normal 27.0-34.0 [facility] Comment on above: Performed By: #### 2 686568, 9886197, 0136968, 3101726, 46340141, 2740409, 8626664 #### [facility] [address] [place], [place] [address] MCHC (RBC) [Mass/Vol] 34.2 g/dL Normal 31.4-36.0 [facility] Comment on above: Performed By: #### 2 302636, 4778502, 2824209, 2581311, 42043790, 1385915, 9359805 #### [facility] [address] [place] [address] MCV (RBC) [Entitic vol] 85.6 fL Normal 80.0-100.0 [facility] Comment on above: Performed By: #### 2 248056, 7349837, 7183455, 7743674, 05975815, 8371721, 8344624 #### [facility] [address] [place] [address] Platelet mean volume (Bld) [Entitic vol] 8.2 fL Normal 6.4-10.8 [facility] Comment on above: Performed By: #### 2 607910, 6856072, 9542907, 2580978, 60922046, 2727810, 4244382 #### [facility] [address] [place] [address] Platelets (Bld) [#/Vol] 281.0 E9/L Normal 150.0-500.0 [facility] Comment on above: Performed By: #### 2 720059, 7966554, 5337220, 4999913, 37250661, 7876828, 6440429 #### [facility] [address] [place] [address] RBC (Bld) [#/Vol] 4.5 E12/L Normal 4.3-5.9 [facility] Comment on above: Performed By: #### 2 059051, 4981554, 4462214, 7334393, 72171252, 6640991, 2343910 #### [facility] [address] [place] [address] WBC corrected for nucl RBC Auto (Bld) [#/Vol] 8.6 E9/L Normal 4.0-11.0 [facility] Comment on above: Performed By: #### 2 778274, 3732728, 0374262, 2999016, 14734107, 4203075, 4638149 #### [facility] [address] [place] [address] Coding Summary.on 09-02-2022 Coding Summary. CD:[id number] Gh0bWw+PGhlYWQ+PE1FV OEqG52ujPOifI8NK9vVA I0QJOPWDUXXVC8JGI1bd IS4CEpoS4ItkzEl TwggtJHhPE02CNy3ENZ7 zHroCNkzeM7psEKzU2x1 PaFfLW47aX68IIloNQDy QaP5JyLlotctvSBc D0ljOwOoaQWdKwq+PHRh YmxlIHdpZHRoPScxMDAl NlTrnDhtZX0fQr4yXGAj LWNvbGxhcHNlOiBj b3gqQKBaHRavNU3qdJlz P0XboHH4RAXhu9s4Op68 dHI+MPWmVAC6cFadLZqo f053WmYzt5ccIMF0 bTIjLXxoFMU8W48wh9M0 ECNiKOYuJZX4oCH1sI0y tKxurhdkT7OftEYoOkT4 IFV9oGKngZ5hhEhm ongqcK9aYye+R35OZL7M OCZKTT9XXly4D9UbSkzo dHI+AC18NNCkIJ76bSVb rEFik4dxrFq1HoEx YDMuKTG7yMwdELkjj3Do FEWqB13mbLBug6O5WTXy uDgmzQLyZsCifDG1tM8o JDuhxwsrj9nhjbfe Cawey3fohd39zN51S42y AFymKGVaXXG3CTKaSRXt aNuooz7rhN5yRz6+IDxj n4nvv5dmkGw8AdYv YAMdxbFwvZonJMY8l6Ue Fz45Q3TwnAhyd6KcPkj4 xg13pEYxm6W9rRF4GUxj WMIccE5dHHnmIuQ8 ZPRkLvTcwC10hGUzWIfu Xe5nbCltxCqnCZ3sMJBy fvqcFPHjtF7iMOPgoHNo lIcaOD0eOBFpmvrg v556DkKjUWW8XGNuyBFj P7QtzT2tAhIlHNVzIFDx N2EbxOVxTZgcU347ZEmy VaM6COOkqfVrZ1Yx AMNwzRpaJfU2h5C2Bg1R x1LcwxtjTTD8JJiaVSIe KoT5PgYjWyM8L9BfHxs4 VIOioLwdNB7nT7Ay UNYvhbbclfiliVH9AEJc XBPivO89tSOjMFkdMl6j x4T1x018QVKkXBEnlQ28 Ze3glOfxYTLkmPCI hZ8jxxtst1cwpwemIrIv NQMeOMu0KGc6ONYpzUca DqXfCND1KjX6SQF9bYHd xJ4kwQvbywptbM5h Oyc+L58zxC1bUBG7TNV5 lcqtZKCvosReSI60JB33 K7EeTbimuNNkiQV+PGRp dpJmkRijQF5hHnXk k3rwz1JwLSkwA4GhQBBg BMomPiu0BVHyXGS3eDQ6 vA1iXLJhZNwfh7N6lEX4 J4EtljJwff1fr1lu DTJeGMygC10chCVrl3Q0 SBDcnJV3WGVxoOkwOeMy gX27Jjs+PVKceXbjj9Xr Hukhm1wyx0wdlHq7 IjMwJSIgdmFsaWduPSJ0 k1HlWf11F11pAVygLGHu BBWaOGNkCGUjtJefhf6p zD5zOm3+PGNvbCB3 vYN0fC2lFOLtUzH6SRij I956CbBifBYtPxgzu0im s1gycNg1HpJkKOHzisCx hZghYQF4d2LcNb80 I93hIJmbNMCmARKmAHKd NRDlpUlvov6owA7uUt2+ GE7rq1ihrx43zQ78jVX+ SXMnUWP6yNgrLXev LHMwiE1pSTdoRgG8SDLt KbZxpX70kKQlISuwXc4u kZdykYsxGW6aPBMgorxu c649QjNxf7jwMRVc xBOtBSozRGO8L13io7N3 WPSlMOXlAQA0eLH0yA7n bGlnbjogbGVmdDsgdmVy eWteMRbaYAbfY332 IHRvcDsnPlBhdGllbnQg ZqZtKNy9W6NbUhk2PLGe cFnrWK1aiCVxOHqnRm1x lXnbhJhxFY7eFQAj kxjdm019RsLtz5frUZSw yLIiDYbaTJF0G33jv3H6 PUFzHNTeJWO3rQF4eL6v bGlnbjogbGVmdDsg htHaaBdpYGqqQBasC923 IHRvcDsnPkJpcnRoIERh iNE2ND54XL32aIWkj8W0 pTE3K7XpJYEvhckr yklkfKX0XKHxURXmjX34 Ib1vpHisTb3tUJEgILG5 JSYdpYScM2KeqM5aUgEq PWXyLGUjN3XgkHIj QNdsV096EHreEmW3AUMe aoBqC3TkLQRbtFseUbW5 v6Q3Ei2CI5J7ZZ37JE58 hNKqi7Y1zCS6N8Pb FHOdnhejjgkavZN0YHSo MLVwxN83Ie1tyIidQr4t BLVeZLS4VBDruFRjA9Ny pS8hIyWlGYZyAPJd V2JaoUMbCEiaF071SLtz DlK6AFWsxbBeA1PaTZNn xPxnOqN9t8Z7Vc9SMMj0 BZ95UG70qQDfb1T4 fCO8R4LiNANvqmzwriim wUB1BHCkCOCnsU68Rx7j bCquDv7tBRNvFVL7BBNg pYUqK8TqbO7tFkDv GUQhNAGkX3IkaTPgZJaq B392SIqxLvG8MDZsooGy E5GzVSJesOlhUfV8p0B2 Xe7NFUKkAL33YPG0 eXT1YM90BT03J9ReNzrs dGFibGU+PHRhYmxlIHdp ZHRoPScxMDAlJyBzdHls EF8bLb0cONZwSAGs xMkuvVUmBcNty1cwAPEw RUifDG8goDuyI7SbsXR8 JINyr2i5Ly88G13hV7Kb dXA+JOEpeLY0rOY1 bK7oKyBgTnA1WWqeD899 XiMdyHUgVyytk9frx2sc fLw3EkW7CVOnxsPakRcu RYI4v9QnAu68I48x IHdpZHRoPSIxNSUiIHZh eEfxdl6xkB7dRs9+PGNv gPM2yXG9hJ7hAwTuSfG2 SBnsS830DgIppAEq Bvpgc3thp2jvtTo0ImCz KCSlciVgbGqcMMH4e0Yd Wr29G0VndQnbw2UiNag9 al56yRZqe7O8pSJ5 G5AdXHIzomnqnRAhqTgv BZ7eKMSgmifxAELkwV9b BNKrX8x2UqQzVuH3CYao K3XggdJ1DJLkpDVw TPyqGIA9D63cj4A8QSNc UYNaFDF4zFL5rB4ifTol bjogbGVmdDsgdmVydGlj MCsnPRkkS647GUUt kRdmXTCnaM0oTBIcvVSu oHinVO2oAMPecwwjFl3I DGEKIDYUBMSGVQXTBQ9Y JI22H9VlTbs3ZEUx sHyaMQ5lpHBePMhmTv6w gHvmoUssZW6eFUAdbbdy YIVvwI1kOFYsjGKigZoi EZ2iKABfmerjm996 KoBxHSJ1KNJcnNGtS3Pk yM3sRcUxOBQwNZXnE1Bo aFEqXVwmP065IOvcTfW6 EFHbfoPjH9YfQNMd uAnxBbL5h3O9Lj9eMM1d BX2tRQAkRN56LF63dLRh c1R2yXI2T3LnCIYhgnnh lffrfQK7TAHoJGMq mV55yCKsJDklVw4jn4R3 s211DLNjDSNhgB73Hk8y tLjwHOMlzCTImH2qwqzb i1frlooySjXbFLJa FDd5BLo4GNMvmSkhXmGk ONE9JgW2RQX9cTLkaL8n zEtdxouncK0gBzq+MjEg EXOankV7N7KfKee2 WODdpEssNI2zfJCpDNok Rh1tjYwxcEeqCF8qGAYl zvhhVJVinQ7fXZKqcLVp uTbwEX3hKYWktair n266IiItBUP6YEAwcJXo R3JlwZ1vIzHdIPVsYSYy M8KotQSkOBedN586UQxg DpU6PPAlnwSpI3Qk MRSssLvcQzF7l8D9Nd1O UM6slYM0W0FjEjr5VVLp dPrkIS9euVSzXKwaJy0a bBzjlZsgSO1gUTGo zfgkFBYclP3hWNVmuCVv kKriIU7zLQYbndyrp492 XyYvOAK1IKWovNBvW0Fi oT5iUmJoWRFsSQQa O4OxkZNyTYztH083GJkm DdE7JRGjwqLpO4BbRSUi lCpjRxM8i6R5Lz9RrYAz J5DlO8i7C3KwNgrm dHI+YE69PAQnZN26cSBi oNIne0hhnBj5EdVoSSOt DLD7lAerIVnur7GxLIWj W55scQUgo7J4VLOx zMssyYMmAjLflBE0oY8c JPyhwodut2ujcrcrGtta a4wbei92gH80S40rEZbs ZHRoPSIzMCUiIHZh kItvag5yeL7gQu1+PGNv lXE7bNL5sS3iDbXyHxO7 GJepV260HzKrwLLtHtpt j2bxw1jzgEb1WdAq MUTkciTdzIwhTOA4b9Nf Aw50X79vCFflRJVsHTXi DICaSEJliEccpb0fmQ7s Ii8+ZZ2zo8dlwd27 fD75qQR+MCVkSEZ4aTqj CVlhJXKqvJ9oHIlzDgI3 IEJoAdNxkE21iCRaZZik Wa2bsKiuaKldOF9l TQWxpycss234KtOln6cw ZAYawTGeKLsdUAY9P25r w0B6SCCqZBTrBOV4nIL7 nQ5taEnrlguijDRw dDsgdmVydGljYWwtYWxp U719AUGtaMzxSkJgfWXz U5bawhVCHB1fFokwqOA+ JOYcNUG5hDxoPQxr XNVnfA7kAQRwM2y0FwKn MbL6IOdpZ9MggdT2NNJp eECoYNWxrFGWaG0vdbjp q4coflrhNfBwKSVi LPr5KCv9QOHkoYaqBmCs LQO3OiZ8KXI2jHOecF0d sLwvudetnJ4hKyr+RklO OjwvdGQ+PHRkIHN0 eDwvJQscFPEshO0qUAHw N1i2RzVjDfT7JVciU1Xq ujR3VKUdhYGbIBPewVPV iI5nqxhoz4cevcrr VvEsXZWrGDg0AEq5AJRv dPuqAcIjUGA8TaJ2USD5 dFRrjO1umFnnepdbiX8c Oyc+TVJOOjwvdGQ+ MNWkBQE8vZdmNMhiOLAi kT3aEMCdB8q6NpFlQqG3 ABmxS2IrygB5LIGrrMRl JMGgbOBNcP5xwgqw e8ppmbwlStCdHYWhZCc6 LFg5MIIlbJpoEmQoZGL9 UvF3NGI3pYTzkQ6mbMhg qwpptT7vPoo+UGF5 [id number] dGFibGU+PHRhYmxlIHdp ZHRoPScxMDAlJyBzdHls QD3mXf2gKXNbGMTr bGxh (more content not included)... Normal [facility] Consent for Treatmenton Consent for Treatment [id number]:[id number] [facility] Discharge Instructionson Discharge Instructions [id number]#[id number]:127 [facility] ED Clinical Summaryon 2022 ED Clinical Summary [address] [address] ED Clinical Summary Person Information Name: ROQUE PIERSON[place] Age: 22 Years : 2000 Sex: Female Language: Argentine PCP: Caryn Aviles MD Marital Status: Single [...] 09/02/2022 01:12:07 09/02/2022 01:12:07 09/02/2022 01:12:07 ADDRESS: [address] [place] [id number] PHYS DOC NOTES: MEDICAL INFORMATION: Prescriptions Given: [...] Adult Follow up: With: Address: When: Caryn Stefan [address], [place] [id number] [facility] () In 3 days DIAGNOSIS: N&V (nausea and vomiting) Normal [facility] ED Note-Physicianon 09-02-19 ED Note-Physician Basic Information Time Seen: Vani Colemansabiha Jiménez 09/01/2022 22:41 Chief Complaint Pt. presents to [...] In [address] [place] [id number]- Business (1) Additional Instructions: Patient Education Nausea [...] (09/01/22 22:50:00) (more content not included)... Normal [facility] Comment on above: Result Comment: Elec [...] added (diluted fruit juice). ? Eat bland, adfe-jh-guwrbw foods in small amounts as you are able. These foods include bananas, applesauce, rice, lean meats, toast, and crackers. ? Avoid fluids that contain a lot of sugar or caffeine, such as energy drinks, sports drinks, and soda. ? Avoid alcohol. ? Avoid spicy or fatty foods. General instructions ? Take ezfi-tff-hzbdkbv and prescription medicines only as told by your health care provider. ? Drink enough fluid to keep your urine pale yellow. ? Wash your hands often using soap and water. If soap and water are not available, use hand personnel and payroll technician. ? Make sure that all people in [...] and drinking to prevent dehydration. ? Take lygz-leo-awrrpqd and prescription medicines only as told by [...] 08/11/2006 Document Revised: 12/03/2019 Document Reviewed: 01/19/2019 [employer] Patient Education ? 2019 [employer]. Normal [facility] ED Patient Summaryon 023 ED Patient Summary [address] [address] Patient Discharge Instructions Person Information Name: ROQUE PIERSON Age: 22 Years Arrival Date: 09/01/2022 22:21:17 Discharge Diagnosis: N&V (nausea and vomiting) Primary Care Physician: Caryn Aviles MD Provider Information Primary Provider: Coleman Ludwig DO Advanced Drip Molder:Renay The exam and treatment you received in the Emergency Department were for an urgent problem and are not intended as complete care. It is important that you follow up with a doctor, nurse practitioner, or physician?s diagnostic assistant for ongoing care. If your symptoms [...] With: Address: When: Caryn [place] [address] Business (1) In 3 days In the event that this physician does not participate in your insurance network, please consult with your insurance company to find a nearby participating provider. Patient Education Materials: Nausea and Vomiting, Adult A MESSAGE TO ALL PATIENTS REGARDING OPIOIDS PRESCRIPTION OPIOIDS: WHAT YOU NEED TO KNOW Prescription opioids can be used to help relieve xexlnoes-uw-zsnpsp pain and are often prescribed following a [...] be struggling with addiction, tell your health direct care counselor and ask for guidance or call [facility]?S National Helpline at 5-084-316-TLLX. k Source: Department of (more content not included)... Normal [facility] Hep Func Panelon 09-02-2022 Bilirubin.indirect [Mass or moles/Vol] UTC Abnormal 0.1-0.9 [facility] Comment on above: Result Comment: Resu lt verified by Discern Rule. Performed result UTC (Unable to Calculate) was sent as an Alpha code due the inability to calculate a valid numeric value. Performed By: #### 2 382678, 1087791, 6177884, 6607655, 26301849, 2745677, 3334061 #### [facility] [address] [place] [address] Albumin [Mass/Vol] 4.2 g/dL Normal 3.3-5.0 [facility] Comment on above: Performed By: #### 2 087900, 9166781, 5396740, 8225443, 93519507, 9258270, 4565899 #### [facility] [address] [place] [address] Albumin/Globulin (S) [Mass conc ratio] 1.4 Normal 1.1-2.2 [facility] Comment on above: Performed By: #### 2 787371, 0502051, 2451196, 3515064, 04400870, 2598151, 0373499 #### [facility] [address] [place] [address] ALP [Catalytic activity/Vol] 63 Int._Unit/L Normal 21-98 [facility] Comment on above: Performed By: #### 2 984914, 3379246, 8949210, 0777657, 58111261, 5835531, 9436666 #### [facility] [address] [place] [address] ALT No additional P-5'-P [Catalytic activity/Vol] 29 Int._Unit/L Normal 6-46 [facility] Comment on above: Performed By: #### 2 560892, 3811784, 9879332, 1731492, 32735454, 4297904, 0925712 #### [facility] [address] [place] [address] AST [Catalytic activity/Vol] 18 Int._Unit/L Normal 5-43 [facility] Comment on above: Performed By: #### 2 279042, 3342930, 4946841, 5240958, 23437017, 3327163, 6509158 #### [facility] [address] [place] [address] Bilirubin [Mass/Vol] 0.8 mg/dL Normal 0.0-1.1 [facility] Comment on above: Performed By: #### 2 771990, 7444728, 9849681, 8108343, 79041270, 7264828, 5012657 #### [facility] [address] [place] [address] Bilirubin.direct [Mass/Vol] mg/dL Normal 0.1-0.4 [facility] Comment on above: Performed By: #### 2 306425, 2677017, 4400264, 0706535, 87050751, 8840715, 0144405 #### [facility] [address] [place] [address] Globulin (S) [Mass/Vol] 3.1 g/dL Normal 1.4-4.0 F [facility] Comment on above: Performed By: #### 2 445334, 9676934, 9790574, 6503257, 87780544, 6312379, 6301790 #### [facility] [address] [place] [address] Protein [Mass/Vol] 7.3 g/dL Normal 6.0-7.8 [facility] Comment on above: Performed By: #### 2 069795, 7114193, 1894963, 9609728, 06107204, 6513761, 4703830 #### [facility] [address] [place] [address] Lipase Levelon 09-02-2022 Lipase [Catalytic activity/Vol] 26 U/L Normal 13-58 [facility] Comment on above: Performed By: #### 2 375297, 9129150, 8409417, 4431421, 02723044, 0919185, 2128188 #### [facility] [address] [place] [address] UA With Cult Reflexon 2022 Bacteria LM Ql (Urine sed) TRACE Normal Trace [facility] Comment on above: Performed By: #### 1 8771237 ####[address] [address] Bilirubin Ql (U) Negative Normal Negative [facility] Comment on above: Performed By: #### 1 0550348 ####[address] [address] Clarity (U) CLEAR Normal Clear [facility] Comment on above: Performed By: #### 1 3722497 ####[address] [place] [address] Color (U) YELLOW Normal Yellow [facility] Comment on above: Performed By: #### 1 6063242 ####[address] [place] [address] Epithelial cells.squamous LM.HPF (Urine sed) [#/Area] 0-2 Normal 0-2 [facility] Comment on above: Performed By: #### 1 4712031 ####[facility] [address] [place] [address] Glucose Test strip (U) [Mass/Vol] Negative Normal Negative [facility] Comment on above: Performed By: #### 1 5703542 ####[address] [address] Hemoglobin Ql (U) Negative Normal Negative [facility] Comment on above: Performed By: #### 1 7606151 ####[address] [address] Ketones (U) [Mass/Vol] 3+ Abnormal Negative [facility] Comment on above: Performed By: #### 1 5226473 ####[address] [address] [place].plasma/[place].R BC (Bld) [Mass ratio] 0-3 Normal 0-3 [facility] Comment on above: Performed By: #### 1 8432799 ####[address] [address] Mucus Ql (Urine sed) 2+ Normal Fish [facility] Comment on above: Performed By: #### 1 7973793 ####[address] [address] Nitrite Ql (U) Negative Normal Negative [facility] Comment on above: Performed By: #### 1 7112270 ####[address] [address] pH (U) 7.5 [pH] Invalid Interpretation Code 5.0-9.0 [facility] Comment on above: Performed By: #### 1 9853881 ####[address] [address] Protein (U) [Mass/Vol] Negative Normal Negative [facility] Comment on above: Performed By: #### 1 4508972 ####[address] [address] Specific gravity (U) [Rel density] 1.020 Invalid Interpretation Code 1.005-1.030 [facility] Comment on above: Performed By: #### 1 9587995 ####[facility] [address] [place] [address] Type of Urine collection method Clean Catch Normal [facility] Comment on above: Performed By: #### 1 9836842 ####[facility] [address] [place] [address] Urobilinogen Qn (U) 0.2 {Andrea'U}/dL Normal 0.0-1.0 [facility] Comment on above: Performed By: #### 1 4682816 ####[facility] [address] [place] [address] WBC Auto Ql (U) Negative Normal Negative [facility] Comment on above: Performed By: #### 1 6706808 ####[facility] [address] [place] [address] WBC LM.HPF (Urine sed) [#/Area] 0-5 Normal 0-5 [facility] Comment on above: Performed By: #### 1 1057777 ####[facility] [address] [place] [address] eGFRon 09-02-2022 GFR/1.73 sq M.predicted among blacks MDRD (S/P/Bld) [Vol rate/Area] mL/min/{1.73_m2} Normal >=59 [facility] Comment on above: Order Comment: Order Added by Discern Expert. Result Comment: eGFR is race adjusted. AA=. Performed By: #### 2 299874, 3630133, 0361839, 3560272, 05611815, 7843836, 1739969 #### [facility] [address] [place] [address] GFR/1.73 sq M.predicted among non-blacks MDRD (S/P/Bld) [Vol rate/Area] mL/min/{1.73_m2} Normal >=59 [facility] Comment on above: Order Comment: Order Added by Discern Expert. Result Comment: Sales Facilitator emil kidney disease could be indicated at eGFR's of less than 60 mL/min/1.73m2. Kidney failure is indicated at less than 15 mL/min/1.73m2. Performed By: #### 2 814998, 6733763, 6793232, 3222816, 12157452, 6615307, 4523419 #### [facility] [address] [place] [address] ABO/Rhon 08-29-2022 ABO/Rh Positive Invalid Interpretation Code [facility] Comment on above: Performed By: #### 1 4465842 #### [facility] [address] [place] [address] Auto Diffon 08-29-2022 Basophils/100 WBC (Bld) 0.6 % Normal 0.0-2.0 F [facility] Comment on above: Order Comment: Order Added by Discern Expert. Performed By: #### 2 678156, 8055538, 7187014, 0970032, 22071953, 3723719, 6569188 #### [facility] [address] [place] [address] Basophils/Leukocytes Auto (Bld) [Pure # fraction] 0.0 E9/L Normal 0.0-0.2 [facility] Comment on above: Order Comment: Order Added by Discern Expert. Performed By: #### 2 272295, 4637248, 8032329, 8354573, 01455036, 1854402, 4553310 #### [facility] [address] [place] [address] Eosinophils/100 WBC (Bld) 5.7 % Normal 0.0-8.0 [facility] Comment on above: Order Comment: Order Added by Discern Expert. Performed By: #### 2 598851, 3234228, 7707971, 3519448, 75037377, 1743336, 9880917 #### [facility] [address] [place] [address] Eosinophils/Leukocytes Auto (Bld) [Pure # fraction] 0.5 E9/L Normal 0.0-0.5 [facility] Comment on above: Order Comment: Order Added by Discern Expert. Performed By: #### 2 805044, 3167832, 6951064, 8900575, 29705111, 6961475, 3827425 #### [facility] [address] [place] [address] Lymphocytes/100 WBC (Bld) 20.5 % Normal 14.0-50.0 [facility] Comment on above: Order Comment: Order Added by Discern Expert. Performed By: #### 2 901116, 1929127, 1760463, 2527755, 75716985, 1028283, 7668101 #### [facility] [address] [place] [address] Lymphocytes/Leukocytes Auto (Bld) [Pure # fraction] 1.7 E9/L Normal 1.0-4.0 [facility] Comment on above: Order Comment: Order Added by Ally Expert. Performed By: #### 2 231779, 6780390, 9355291, 1810889, 97391203, 7347668, 6072126 #### [facility] [address] [place] [address] Monocytes/100 WBC (Bld) 8.4 % Normal 4.0-14.0 [facility] Comment on above: Order Comment: Order Added by Ally Expert. Performed By: #### 2 316063, 1936345, 0558273, 0842331, 94026068, 3589264, 8088520 #### [facility] [address] [place] [address] Monocytes/Leukocytes Auto (Bld) [Pure # fraction] 0.7 E9/L Normal 0.2-1.0 [facility] Comment on above: Order Comment: Order Added by Ally Expert. Performed By: #### 2 297639, 9638959, 1450282, 3313641, 98426174, 0082494, 8291742 #### [facility] [address] [place] [address] Neutrophils/100 WBC (Bld) 64.8 % Normal 36.0-75.0 [facility] Comment on above: Order Comment: Order Added by Ally Expert. Performed By: #### 2 136548, 2262099, 5712725, 8448314, 78828249, 7931745, 2439353 #### [facility] [address] [place] [address] Neutrophils/Leukocytes Auto (Bld) [Pure # fraction] 5.3 E9/L Normal 2.0-7.5 [facility] Comment on above: Order Comment: Order Added by Discern Expert. Performed By: #### 2 503717, 2670330, 4282042, 5168968, 81581535, 7406624, 4678049 #### [facility] [address] [place] [address] BMP 08-29-2022 Creatinine [Mass/Vol] 0.6 mg/dL Normal 0.5-1.3 [facility] Comment on above: Performed By: #### 2 076595, 5913185, 3273629, 5107719, 00415491, 8067907, 9444846 #### [facility] [address] [place] [address] Urea nitrogen [Mass/Vol] 6 mg/dL Normal 5-21 [facility] Comment on above: Performed By: #### 2 791313, 1298655, 3168208, 4975949, 23383273, 9560471, 8407394 #### [facility] [address] [place] [address] Urea nitrogen/Creatinine [Mass ratio] 10 No Units Normal 10-20 [facility] Comment on above: Performed By: #### 2 569246, 3269835, 4184428, 4077533, 59897230, 8930338, 0422622 #### [facility] [address] [place] [address] Anion gap [Moles/Vol] 11 mmol/L Normal 6-16 [facility] Comment on above: Performed By: #### 2 798943, 9107847, 6469180, 3547619, 11695945, 5314011, 1519310 #### [facility] [address] [place] [address] Calcium [Mass/Vol] 9.1 mg/dL Normal 8.9-11.1 [facility] Comment on above: Performed By: #### 2 420775, 5167835, 0316338, 1374081, 86280893, 2657282, 0622172 #### [facility] [address] [place] [address] Chloride [Moles/Vol] 105 mmol/L Normal 101-111 [facility] Comment on above: Performed By: #### 2 989369, 4107246, 5997141, 8454068, 38006286, 0057355, 0725207 #### [facility] [address] [place] [address] CO2 [Moles/Vol] 23 mmol/L Normal 21-31 [facility] Comment on above: Performed By: #### 2 404511, 9332823, 9915242, 6070363, 97436404, 4402286, 1404367 #### [facility] [address] [place] [address] Glucose [Mass/Vol] 103 mg/dL Normal 55-199 [facility] Comment on above: Result Comment: If t his glucose result represents a fasting glucose, interpretation should refer to the following reference range: 55-99 mg/dL Performed By: #### 2 623619, 5989025, 3802409, 2443558, 91215102, 6256561, 5721395 #### [facility] [address] [place] [address] Potassium [Moles/Vol] 3.7 mmol/L Normal 3.5-5.3 [facility] Comment on above: Performed By: #### 2 540565, 1513742, 0080081, 0432195, 09252333, 9711906, 3530294 #### [facility] [address] [place] [address] Sodium [Moles/Vol] 135 mmol/L Normal 135-145 [facility] Comment on above: Performed By: #### 2 430087, 7701812, 9445980, 8410210, 67528182, 5059535, 3589278 #### [facility] [address] [place] [address] BhCG [place] 08[birth year]29[birth year]20[place] [address] m[IU]/mL High 1-3 [facility] Comment on above: Result Comment: GEST ATIONAL AGE HCG RANGE (mIU/mL) NON- <1-3 0.2-1 WEEKS 5-50 1-2 WEEKS 50-500 2-3 WEEKS 100-5,000 3-4 WEEKS 500-10,000 4-5 WEEKS 1,000-50,000 5-6 WEEKS 10,000-100,000 6-8 WEEKS 15,000-200,000 8-12 WEEKS 10,000-100,000 Performed By: #### 2 409942, 2245035, 2687436, 5099659, 62213768, 1530599, 3268320 ####[facility] [address] [place] [address] CBC w/ Auto Diffon Erythrocyte distribution width (RBC) [Ratio] 13.1 % Normal 10.9-14.2 [facility] Comment on above: Performed By: #### 2 872909, 5411841, 5260866, 8893558, 35884575, 2927487, 0441412 #### [facility] [address] [place] [address] Hematocrit (Bld) [Volume fraction] 39.2 % Normal 34.0-46.0 [facility] Comment on above: Performed By: #### 2 673404, 8890339, 3332705, 8223221, 99203851, 5316891, 2593753 #### [facility] [address] [place] [address] Hemoglobin (Bld) [Mass/Vol] 13.5 g/dL Normal 12.0-16.0 [facility] Comment on above: Performed By: #### 2 198530, 4720849, 9065773, 9257298, 70567576, 7167813, 9332372 #### [facility] [address] [place] [address] MCH (RBC) [Entitic mass] 29.5 pg Normal 27.0-34.0 [facility] Comment on above: Performed By: #### 2 996564, 1652939, 2550743, 6569769, 79510664, 5915949, 2337867 #### [facility] [address] [place], [place] [id number] MCHC (RBC) [Mass/Vol] 34.3 g/dL Normal 31.4-36.0 [facility] Comment on above: Performed By: #### 2 465072, 2055041, 9485866, 6224851, 62450888, 9125754, 7215824 #### [facility] [address] [place] [address] MCV (RBC) [Entitic vol] 85.8 fL Normal 80.0-100.0 F [facility] Comment on above: Performed By: #### 2 889786, 3991404, 7838929, 9391141, 20779287, 5351433, 0665142 #### [facility] [address] [place], [place] [address] Platelet mean volume (Bld) [Entitic vol] 8.3 fL Normal 6.4-10.8 [facility] Comment on above: Performed By: #### 2 630464, 2555457, 7121839, 8049986, 91642002, 2264005, 2037577 #### [facility] [address] [place] [address] Platelets (Bld) [#/Vol] 279.0 E9/L Normal 150.0-500.0 [facility] Comment on above: Performed By: #### 2 206524, 3911457, 3556885, 3975959, 73180311, 3177093, 0267540 #### [facility] [address] [place] [address] RBC (Bld) [#/Vol] 4.6 E12/L Normal 4.3-5.9 [facility] Comment on above: Performed By: #### 2 442778, 2043275, 6706558, 8430754, 84265204, 3003005, 2581075 #### [facility] [address] [place] [address] WBC corrected for nucl RBC Auto (Bld) [#/Vol] 8.1 E9/L Normal 4.0-11.0 [facility] Comment on above: Performed By: #### 2 851041, 6488889, 6472252, 5941295, 68348287, 9063689, 8917035 #### [facility] [address] [place] [address] Coding Summary.on 08-29-2022 Coding Summary. CD:[id number] Gh0bWw+PGhlYWQ+PE1FV SRhB58toYCwvL8UW4tEI X5ECCHZZWFCSU7KNV6mp LQ1AXuvD4HxqlYc SarskGHbNW14SJg0BKP7 kXbfHSfvyB0vwQKwM7t5 QaGfWW84yM20CYsuCGFm MzX5GuNjmwbrwKGs N9jeBxOvfHBqEry+PHRh YmxlIHdpZHRoPScxMDAl TqOkgKmxHT3jWv0jDBPc LWNvbGxhcHNlOiBj d1anWQPiLLuzJF9wbNqc X5CeiQI2GFUxr1k0Iv80 dHI+FWPzZYK9gYywFZpp n168EgGhc9qhQNE1 eXOcMDxxQUC6E81vk4H7 IEDyWFNeLLM9nAW7iD5h pDzzqyuqP8VidWYdWaJ7 FKE0eWKvsC4odJnk zbhgyF6tKme+J07VJE2A NCHIJR3XSmq3R7BbZgwo dHI+PQ74EUObHZ84qLMc ySIfe7pedCz2SuOl THXlLXN1aWxbESyry7Be IWKpC51shBXex5Z2IEDv xYrwvDCrVtGnsFO0pS5e WYtyuzrsz1bbtvrw Lpxkx6mfda09fW40X59g RWblNVIhAXM7GAZzJZKf pYnpux4rkC2nRp7+IDxj y7yon3bsbEv2KhDp SVVnsbPzzGgnLVJ0l4Ef Lq85R2RubZwdb3DzUxg3 qs72dOQpn3V9rUV8IMno VRUtbX1uHCmdYdQ0 JBGpKmXeyD46pYUzWYug Wv4rlBkzgVsfNZ6rNVEg gvqiXBMctM0vNBJgyMYn gQboXF1rIYRwnfyc v703JiVsHAQ9TFBusCXx I3IfbA9fSjFiYSBmVMWu B4QcvAYcBBbyU990RWhs ZmH4IPVdvdWkZ0Gt FLUgfLyzVaL1h9P7Zc8G f6RrhbxmGXR2ZKorPURs CmU9WqHgXiF7M8TmOvu7 QYFhuRsmNC6dA5Ww KPJmcqpovtxqbFF2TYXl ENHvhF59aROqWYifGn8d f4L8g031RSSpEPUzjJ00 Iq0yuQaqYIXxkOJM eY6gvlanv4pbpvuhGyXs VVRpPHp5URy9TAYovFau RmOzEQP3OpR3XAV3eFAx aY9mkMwdmyuwwE1g Oyc+F75ngV4wQPK6PJU3 dgelELYvfoXoDZ23KG11 G9AwVdtmqFXttXD+PGRp paKuiRvtBH5xHbEe w2syf1HuSRkrO2MaXOIk GGwcSgt6YTAeIPV7kRR7 wI8iUUVaHUqha7I4tRM9 Y2GwouQfyc7vr2oi HLDiDAxbO79llKJqw4P3 CAEorYJ0CWRhgTetCeSw hK51Ihu+ZDZbhDfjk9Xp Cqpik7mnm4leoUz8 IjMwJSIgdmFsaWduPSJ0 s7LcKz08I26aCDkxZJPa YHWyMRIbOCVbxKvzfa7t vR8fIs8+PGNvbCB3 wKR4mM8vWGAqLoV2QUdh F409YvGupDLeMfsmf6ww m3gtmFw2EuCtENAatyYg kTcwZQH6v6EjFt01 C78tMHpcLYAjHZGsKRDa KXOlnRrtpt2brJ0sMk3+ CF2nf2vccd88yP49hHD+ PILcNUD4dLlpCZnm MICvdB6eWVjyArH5NJGu IdDatS61uZIiGBquXh4s uHmztOcbGJ4qOVMaxjer h588PcAau1ilDAOy uVOzYXidSYA7K32xr8L4 WVVxYZPvCBO4fGE9tM0m bGlnbjogbGVmdDsgdmVy sStiSVxlFRoaW654 IHRvcDsnPlBhdGllbnQg RmYzWCg0Y7ItPko8ZUNv jEhoKP0lxTJiNIvpTj0p lBkwyEjwYK4cJFSi mylsc794ApLzk0mwJBVx kZJwNDfnXPP5B67qy8V4 ICAgVCLmPQZ2lBT2mD5k bGlnbjogbGVmdDsg sdPjuFrqOMqtQGcxU815 IHRvcDsnPkJpcnRoIERh zMG8KP54EV19vWVuz4F8 sOV0G4CqIBIbipas xashaVE8VBQuVKYkyH24 Py8tpWkbAq6mUVPaOQM6 YGUjyYSoN7KjaM3xQyGl BFCpHEWdX8GqqZDt KFmfE635YKhgFzJ0EFCz xsQiS4YaWPYxbPpjPgA3 h7C4Sq7ZL7A7HD92DB31 bIScg2K9xEG3V9Lt XJUnvqvxcndiyGX7IPJs RMZosY93Fr6obDchHm4n OSXoDDO5CWSniUPuO7Cs lQ0cHkLtIPJdWVLa A8XeaRPxVTnlA020TNzy ShV6OYEbuyCqB3MdOJCt lVmlOhP6e6T8At6NHGv6 IX16VA48xLHiz3U1 nLJ2C8YiAJIvjbexhmfx uCH8KGTyWFHvdO16Vc6v uIkhQu8pACWfKKZ2FSPu kIQjK6AtnQ3kEiUt POLuOFXkX8NedMAmLBml B800GDrhSoA1NWLzmzOu W8LgLHWhuYvyNmS1x8U6 Kp4GQBQpED31PZK8 lGM5UO34IB77T1YcZxhw dGFibGU+PHRhYmxlIHdp ZHRoPScxMDAlJyBzdHls KH0lUh3oLRUaQGCw jAvaoDWxFtDrf3npPYYp KVfdQY1mfUlkS0GpvUQ0 JNCoh3j7Id54D48gJ2Ts dXA+WURhyMT1hRR3 dW4xYfZwGwJ2KVezZ139 YmShtDYdIsyjm3ahc7zn nEd7ZsH5GPRcmvAzaCfr KYV4a6NyKz23J67q IHdpZHRoPSIxNSUiIHZh wQcwcs8hzY6xLh3+PGNv bXI2aRF7tR9oDnVmYxE3 IWpqT202SpMosGAm Nuvhz8cbc4jiqKp5HzEe DPIvxjOdkEtoQBH1x7Hp Dd34O4NloNshq9EeRrq6 ft51vAEhx0Z0pXC5 U5WtMEMblicfkMZjbVtv DX4tGNWfkfyyOIVutT8t LCXtS4e7JqHqWnH8KRwy V3BpcpZ8OCTqqZUm PSgbQOT0Y27jb4Y9ZKBu GMYnDRZ1eFZ5uX2yzUsj bjogbGVmdDsgdmVydGlj KMelPKpeV719KTQn lExeLLUwzI4iQPSvyQDa eZmgYQ8oJLTbgviwWi6B HLGCYRBUPTDMSOIAHJ6A GO39P8HnLvo5FFJs sDqgZQ2umXHmKLyiAu6q pWpzfEnfRM4vPGRsoifd KKSfnX9yXDFyrYXalFmy TR1yLTBrspmqg562 XwEpIBY5UEIfcJNyM7Gx gU9zKpMcJAIyMGTgI4Fd yXUcKTsjN317WJeoOrW3 FYPwkmLeM5ZtFTSe xOwqAzB2u2N3Rd7gPT1a BG2nWGUrYC95QE33vCYd d3W8fEE4Q1FlJGWsqkqu ddsglWY6WCNlCNGg lT99pNPtKDmrTk7mh5Z2 l631RSQlZLOmxC87Eg9w sKwaAUMxeUNGqF9ujylx l2ftqzegOaAiLLHt XKp1JYb6BWCeySwaLcCr BZW7KmH4KSK0tLJddW4e zFnnjjdxzH6qChd+MjEg PBKtsmG3E7TgJto3 ZCWfwSqsUP7obIRzNFlb Qq3xbEradZfqXB1bNQCc xjnvVOTcpA3dRYMfmOTa fBcjFX9nDNPzntyr n016DrFfWKW2XDGabJNn U5FirY8pVyBdVTWeHXMq W3RvtPCsOFfeR639UEdu NbA0LHOpfxMzU5Sm SMXknCkfYaQ3m4Q8Wm4H RD3eoSB7L4OmQzv7DDEk cZgoFE6tkUXqKDwlZq6q lNnygCyxNW6vSKVm kthcZJHifK4gRNBtjEOv hPagIK4pUZKpqgrtl823 CmLoYGP5MUHhrKUtQ5Bi yH1jAiNjSITzHUJu D7VwbXJiQClrS539GWjc RpP8KNBwwnTpT6GcZQPp jCgrYzI5z5S8Kh8UhCQd P5SiR5m3Y4VcLdgi dHI+PT56TPFbWZ59nUZu jGHet9ybrMt1QgWwECCp XDZ6nQqkYXmhx0LsGSXl G94srAMrd7S5PLSh wGrveUKxKjOgjNA7aY2j LDrxapjko4blvdrlPvum a4ndee98pN67O07mBUdr ZHRoPSIzMCUiIHZh yYjbrz9reB6oLm7+PGNv cOO5hCE7rM9pSzIsChG7 IVsvV704TwNbsPDyGrxz z9tps4styWm2OqNh BTYuepNeyHqiVKD3b8Fv Km45W13nCIetFGSzNMCe TVReYJKlvTlceq6tpV7o Ii8+VV6gr3ucrf47 kT43oZD+EFEuTRH5fGyj IVbtXAUmuI3wJLrmJzG7 QPMxLqJmdQ38eTNhATlf Ti6ygJsylEpmRJ0k DEMppbafp277BmPti9gn OXZkdXSfEWoqRTA9L31c x9D3IUKyDRMfUBC0eEG2 gA8ljTsvckvolNGq dDsgdmVydGljYWwtYWxp Q157HNRjsHtsYcCnhSMx D2lzgyRICN5zRhsepUY+ YCBwNVJ5mKauYHpw WVGkxL7dMRGaJ6m9DzBd RfG4WEvwH4NjjnH5YBMd oPYvSCJejRXIsK9cqfxp s4ulncszIbBhONJh BEf3CMk5SERekIbeUfOw UDF5SbJ5AQA0cMLuqI6s yQnijjvfaB5rLas+RklO OjwvdGQ+PHRkIHN0 gHiuUSquNPEfvX6rKRVb Q4b4VkErNwI6QZatI5Ku vfG8LGMpaWTqBIQmyMME yP8xemwxd4carrlt DbRvYUNjGZe4RUg7ZLEj eNdiVyGqNXL4PwU4NOC4 lHMcfX3jvIvplwkqkU2k Oyc+TVJOOjwvdGQ+ EIXzQJZ8cPciGLdtAHDr gP6pZTDnT8u7NdCvCzO4 AHncN4HkhfM1UBYzgXIg MZVdtCKFdW9ihaxm f1btuleyAoLvUJQbEJj5 AFq8FEFpcNiwRcDvSVJ6 YgH5JDG6uNXxpL7bmDel lednhT2cZch+UGF5 FER7LA81EJ61U5TqYcos dGFibGU+PHRhYmxlIHdp ZHRoPScxMDAlJyBzdHls AF8hRl2aOVBlQSFi bGxh (more content not included)... Normal [facility] Discharge Instructionson Discharge Instructions [id number] Normal [facility] ED Clinical Summaryon 2022 ED Clinical Summary [place] [id number] ED Clinical Summary Person Information Name: ROQUE PIERSON [facility] Age: 22 Years : 2000 Sex: Female Language: Argentine PCP: Ambrose Urbano MD Marital Status: Single [...] 08/29/2022 01:49:39 08/29/2022 01:49:39 08/29/2022 01:49:39 ADDRESS: [address] [place] [id number] PHYS DOC NOTES: MEDICAL INFORMATION: Prescriptions Given: [...] Follow up: With: Address: When: Julius CROCKETT [facility], [address] [place] [address] [place] [address] Business (1) In 3 days 09/01/2022 Comments: Return to the emergency room if your pain gets worse, general bleeding, vomiting or any new symptoms With: Address: When: Ambrose Urbano [facility], [place] [address] [place] [address] Business (1) In 3 days DIAGNOSIS: 1:Abdominal pain; 2:Intrauterine ; 3:Nausea Normal [facility] ED Note-Physicianon 08-29-19 ED Note-Physician Basic [...] and Complexity of Problems Differential Diagnosis: [] [facility] Data External documents reviewed: [] My EKG [...] Information Julius CROCKETT In 3 days 09/01/[address] , [place] [address]- Business (1) Additional Instructions: Return to the emergency room if your pain gets worse, general bleeding, vomiting or any new symptoms Ambrose Urbano (more content not included)... Normal [facility] Comment on above: Result Comment: Nadine yoko Signed By: Alfredito Brennan M.D..basil\Date and Time Signed: 08/29/22 03:00 EST ED [...] added (diluted fruit juice). ? Eat bland, bkgg-zs-vavamb foods in small amounts as you are able. These foods include bananas, applesauce, rice, lean meats, toast, and crackers. ? Avoid drinking fluids that contain a lot of sugar or caffeine, such as energy drinks, sports drinks, and soda. ? Avoid alcohol. ? Avoid spicy or fatty foods. General instructions ? Take nlkm-jzb-nstnngn and prescription medicines only as told by your health care provider. ? Rest at home while you recover. ? Drink enough fluid to keep your urine pale yellow. ? Breathe slowly and deeply when you feel nauseous. ? Avoid smelling things that have strong odors. ? Wash your hands often using soap and water. If soap and water are not available, use hand personnel and payroll technician. ? Make sure that all people in [...] recommendations for eating and drinking and take vfri-mhz-uwprsqz and prescription medicines only as told by [...] 09/18/2005 Document Revised: 01/19/2019 Document Reviewed: 01/19/2019 [employer] Patient Education ? 2019 [employer]. Obstetrics and Gynecology First Trimester of The [...] be form (more content not included)... Normal [facility] ED Patient Summaryon 023 ED Patient Summary [address] [address] Patient Discharge Instructions Person Information Name: ROQUE PIERSON Age: 22 Years Arrival Date: 08/28/2022 21:27:40 Discharge Diagnosis: 1:Abdominal pain; 2:Intrauterine ; 3:Nausea Primary Care Physician: Ambrose Urbano MD Provider Information Primary Provider: Alfredito Brennan M.D. Advanced Drip Molder:None The exam and treatment you received in the Emergency Department were for an urgent problem and are not intended as complete care. It is important that you follow up with a doctor, nurse practitioner, or physician?s diagnostic assistant for ongoing care. If your symptoms [...] Follow-up Instructions: With: Address: When: Julius CROCKETT [facility], [address] [place] [address] , [place] [address] Business (1) In 3 days 09/01/2022 Comments: Return to the emergency room if your pain gets worse, general bleeding, vomiting or any new symptoms With: Address: When: Ambrose Urbano [facility], [place] [address] Business (1) In 3 days [...] opioids can be used to help relieve ikrzuuqy-td-nbqflz pain and are often prescribed following a [...] guidance from (more content not included)... Normal [facility] Hep Func Panelon 08-29-2022 Bilirubin.indirect [Mass or moles/Vol] UTC Abnormal 0.1-0.9 [facility] Comment on above: Result Comment: Resu lt verified by Discern Rule. Performed result UTC (Unable to Calculate) was sent as an Alpha code due the inability to calculate a valid numeric value. Performed By: #### 2 781702, 7784034, 5275485, 8418986, 23363888, 1687454, 8663150 #### [facility] [address] [place] [address] Albumin [Mass/Vol] 4.2 g/dL Normal 3.3-5.0 [facility] Comment on above: Performed By: #### 2 641595, 9460985, 0021635, 7472469, 88000572, 1752216, 7267652 #### [facility] [address] [place] [address] Albumin/Globulin (S) [Mass conc ratio] 1.3 Normal 1.1-2.2 [facility] Comment on above: Performed By: #### 2 406334, 8395820, 2467415, 5507053, 22853908, 5883016, 7506430 #### [facility] [address] [place] [address] ALP [Catalytic activity/Vol] 69 Int._Unit/L Normal 21-98 [facility] Comment on above: Performed By: #### 2 026246, 3952342, 0003840, 6359116, 19264139, 8843647, 2612756 #### [facility] [address] [place] [address] ALT No additional P-5'-P [Catalytic activity/Vol] 57 Int._Unit/L High 6-46 [facility] Comment on above: Performed By: #### 2 973122, 5265972, 2983932, 8759443, 85116893, 7852953, 7768407 #### [facility] [address] [place] [address] AST [Catalytic activity/Vol] 41 Int._Unit/L Normal 5-43 [facility] Comment on above: Performed By: #### 2 734128, 4799941, 6790650, 2177059, 51755352, 3257187, 0572644 #### [facility] [address] [place] [address] Bilirubin [Mass/Vol] 0.4 mg/dL Normal 0.0-1.1 [facility] Comment on above: Performed By: #### 2 490858, 7565667, 2888409, 1032617, 57859242, 7826283, 0264148 #### [facility] [address] [place] [address] Bilirubin.direct [Mass/Vol] mg/dL Normal 0.1-0.4 [facility] Comment on above: Performed By: #### 2 800534, 1273849, 2042983, 4517762, 31243498, 3008172, 9022619 #### [facility] [address] [place] [address] Globulin (S) [Mass/Vol] 3.3 g/dL Normal 1.4-4.0 [facility] Comment on above: Performed By: #### 2 394242, 2288219, 3595995, 5132823, 25467341, 3739495, 7841372 #### [facility] [address] [place] [address] Protein [Mass/Vol] 7.5 g/dL Normal 6.0-7.8 [facility] Comment on above: Performed By: #### 2 335216, 9570959, 9643639, 6648440, 10589758, 8793529, 2374055 #### [facility] [address] [place] [address] Lipase Levelon 08-29-2022 Lipase [Catalytic activity/Vol] 29 U/L Normal 13-58 [facility] Comment on above: Performed By: #### 2 192630, 1651740, 1959159, 3231740, 66481733, 7601198, 5060333 #### [facility] [address] [place] [address] Prescriptions/Work Noteson 0 08-29-2022 Prescriptions/Work Notes [id number]:[id number] Normal [facility] UA With Cult Reflexon 2022 Bacteria LM Ql (Urine sed) 1+ /HPF Abnormal Trace [facility] Comment on above: Performed By: #### 1 7371323 ####[facility] [address] [place] [address] Bilirubin Ql (U) Negative Normal Negative [facility] Comment on above: Performed By: #### 1 7436319 ####[facility] [address] [place] [address] Clarity (U) CLEAR Normal Clear [facility] Comment on above: Performed By: #### 1 8365791 ####[facility] [address] [place] [address] Color (U) YELLOW Normal Yellow [facility] Comment on above: Performed By: #### 1 2427158 ####[facility] [address] [place] [address] Epithelial cells.squamous LM.HPF (Urine sed) [#/Area] 3-4 Normal 0-2 [facility] Comment on above: Performed By: #### 1 1819922 ####[facility] [address] [place] [address] Glucose Test strip (U) [Mass/Vol] Negative Normal Negative [facility] Comment on above: Performed By: #### 1 8406035 ####[facility] [address] [place] [address] Hemoglobin Ql (U) Negative Normal Negative [facility] Comment on above: Performed By: #### 1 6269563 ####[address] [address] Ketones (U) [Mass/Vol] 3+ Abnormal Negative [facility] Comment on above: Performed By: #### 1 5050272 ####[address] [address] [place].plasma/[place].R BC (Bld) [Mass ratio] 0-3 Normal 0-3 [facility] Comment on above: Performed By: #### 1 0559482 ####[address] [address] Nitrite Ql (U) Negative Normal Negative [facility] Comment on above: Performed By: #### 1 7377553 ####[facility] [address] [place] [address] pH (U) 7.0 [pH] Invalid Interpretation Code 5.0-9.0 [facility] Comment on above: Performed By: #### 1 8743830 ####[address] [address] Protein (U) [Mass/Vol] Negative Normal Negative [facility] Comment on above: Performed By: #### 1 3254704 ####[address] [address] Specific gravity (U) [Rel density] 1.015 Invalid Interpretation Code 1.005-1.030 [facility] Comment on above: Performed By: #### 1 0997884 ####[place] [address] Type of Urine collection method Clean Catch Normal [facility] Comment on above: Performed By: #### 1 2810638 ####[place] [address] Urobilinogen Qn (U) 0.2 {Andrea'U}/dL Normal 0.0-1.0 [facility] Comment on above: Performed By: #### 1 8419419 ####[place] [address] WBC Auto Ql (U) TRACE Abnormal Negative [facility] Comment on above: Performed By: #### 1 0854568 ####[place] [address] WBC LM.HPF (Urine sed) [#/Area] 0-5 Normal 0-5 [facility] Comment on above: Performed By: #### 1 5203300 ####[place] [address] URINALYSISOrdered By: Davidson Watson on 08-29-2022 Bacteria LM Ql (Urine sed) 1+ /HPF Invalid Interpretation Code Trace/HPF [facility] [place] Auto SS Bilirubin Ql (U) Negative (08/29/22 12:34 AM) Normal Negative [facility] UA Auto SS Clarity (U) Clear (08/29/22 12:34 AM) Normal Clear [facility] UA Auto SS Color (U) Yellow (08/29/22 12:34 AM) Normal Yellow [facility] UA Auto SS Epithelial cells.squamous LM.HPF (Urine sed) [#/Area] 3-4 /HPF Normal 0-2/HPF [facility] UA Aut o SS Glucose Test strip (U) [Mass/Vol] Negative (08/29/22 12:34 AM) Normal Negative [facility] UA Auto SS Hemoglobin Ql (U) Negative (08/29/22 12:34 AM) Normal Negative [facility] UA Auto SS Ketones (U) [Mass/Vol] 3+ *ABN* (08/29/22 12:34 AM) Invalid Interpretation Code Negative [facility] UA Auto SS [place].plasma/[place].R BC (Bld) [Mass ratio] 0-3 /HPF Normal [...] [facility] UA Auto SS Urobilinogen Qn (U) 0.3261836 {Andrea'U}/dL Normal 0.0 - 1.0 EU/dL [facility] [...] corresponding gestational age +/- 1 week are: Corinna Rump Length: 0.7 cm Composite Ultrasound Age: [...] Size = Dates Uterus Position Anteverted Normal [facility] eGFRon 08-29-2022 GFR/1.73 sq M.predicted among blacks MDRD (S/P/Bld) [Vol rate/Area] mL/min/{1.73_m2} Normal >=59 [facility] Comment on above: Order Comment: Order added by Discern Expert. Result Comment: eGFR is race adjusted. AA=. Performed By: #### 2 078240, 2398984, 5487452, 6403514, 07174401, 3666811, 6770767 #### [facility] [address] [place] [address] GFR/1.73 sq M.predicted among non-blacks MDRD (S/P/Bld) [Vol rate/Area] mL/min/{1.73_m2} Normal >=59 [facility] Comment on above: Order Comment: Order added by Discern Expert. Result Comment: Sales Facilitator emil kidney disease could be indicated at eGFR's of less than 60 mL/min/1.73m2. Kidney failure is indicated at less than 15 mL/min/1.73m2. Performed By: #### 2 325953, 8889670, 0050645, 3311376, 87771301, 3096746, 0049415 #### [facility] [address] [place] [address] BLOOD BANKOrdered By: Davidson Watson on 08-28-2022 [...] 199 mg/[place] [address] m[IU]/mL High 1 - 3 mIU/mL FT [...] for Treatmenton Consent for Treatment [id number] 30 [id number] #[email or web address]:127 Normal [facility] HEMATOLOGYOrdered By: SYSTEM SYSTEM on 08-28-2022 [...] 8.1 E9/L Normal 4.0 - 11.0 E9/L [facility] HemeAutoSS Auto Diffon 08-26-2022 Basophils/100 WBC (Bld) 0.6 % Normal 0.0-2.0 [facility] Comment on above: Order Comment: Order Added by Discern Expert. Performed By: #### 1 8457432, 8259185, 2128094, 5542847, 1437590 ####[facility] [address] [place] [address] Basophils/Leukocytes Auto (Bld) [Pure # fraction] 0.1 E9/L Normal 0.0-0.2 [facility] Comment on above: Order Comment: Order Added by Discern Expert. Performed By: #### 1 [id number], 9266988, 3324699, 7338894, 7504619 ####[address] [address] Eosinophils/100 WBC (Bld) 3.4 % Normal 0.0-8.0 [facility] Comment on above: Order Comment: Order Added by Discern Expert. Performed By: #### 1 [id number], 1200255, 2449276, 9186289, 0249792 ####[address] [address] Eosinophils/Leukocytes Auto (Bld) [Pure # fraction] 0.4 E9/L Normal 0.0-0.5 [facility] Comment on above: Order Comment: Order Added by Discern Expert. Performed By: #### 1 [id number], 0758885, 7784745, 9134568, 0507266 ####[facility] [address] [place] [address] Lymphocytes/100 WBC (Bld) 12.4 % Low 14.0-50.0 [facility] Comment on above: Order Comment: Order Added by Ally Expert. Performed By: #### 1 [id number], 8807583, 2670338, 1626052, 1223004 ####[address] [address] Lymphocytes/Leukocytes Auto (Bld) [Pure # fraction] 1.6 E9/L Normal 1.0-4.0 [facility] Comment on above: Order Comment: Order Added by Discern Expert. Performed By: #### 1 1997035, 1702724, 4897303, 5952154, 0950579 ####[facility] [address] [place] [address] Monocytes/100 WBC (Bld) 4.2 % Normal 4.0-14.0 [facility] Comment on above: Order Comment: Order Added by Discern Expert. Performed By: #### 1 [id number], 2944745, 0565683, 7487179, 3123094 ####[id number] [place] [address] Monocytes/Leukocytes Auto (Bld) [Pure # fraction] 0.5 E9/L Normal 0.2-1.0 [facility] Comment on above: Order Comment: Order Added by Discern Expert. Performed By: #### 1 0853094, 2931182, 6662640, 1024273, 2761634 ####[address] [address] Neutrophils/100 WBC (Bld) 79.4 % High 36.0-75.0 [facility] Comment on above: Order Comment: Order Added by Discern Expert. Performed By: #### 1 1296891, 8611086, 1004900, 7898680, 5313279 ####[address] [address] Neutrophils/Leukocytes Auto (Bld) [Pure # fraction] 10.3 E9/L High 2.0-7.5 [facility] Comment on above: Order Comment: Order Added by Discern Expert. Performed By: #### 1 [id number], 2577387, 1277878, 3478235, 3897898 ####[address] [address] CBC w/ Auto Diffon 3 Erythrocyte distribution width (RBC) [Ratio] 13.3 % Normal 10.9-14.2 [facility] Comment on above: Performed By: #### 1 0569976, 0891889, 4006691, 7857284, 7875658 ####[address] [place] [address] Hematocrit (Bld) [Volume fraction] 39.7 % Normal 34.0-46.0 [facility] Comment on above: Performed By: #### 1 [id number], 0329782, 6411912, 4577570, 9830908 ####[place] [address] Hemoglobin (Bld) [Mass/Vol] 13.6 g/dL Normal 12.0-16.0 [facility] Comment on above: Performed By: #### 1 3123717, 1410548, 3984787, 2826756, 1497619 ####[place] [address] MCH (RBC) [Entitic mass] 29.4 pg Normal 27.0-34.0 [facility] Comment on above: Performed By: #### 1 7373407, 9695758, 0740911, 2420455, 4782914 ####[place] [address] MCHC (RBC) [Mass/Vol] 34.1 g/dL Normal 31.4-36.0 [facility] Comment on above: Performed By: #### 1 5854418, 7255222, 0982074, 7544564, 1764389 ####[place] [address] MCV (RBC) [Entitic vol] 86.1 fL Normal 80.0-100.0 [facility] Comment on above: Performed By: #### 1 4579011, 8533192, 4189458, 5969116, 7867490 ####[address] [id number] Platelet mean volume (Bld) [Entitic vol] 7.9 fL Normal 6.4-10.8 [facility] Comment on above: Performed By: #### 1 4844150, 5769246, 3630037, 7817908, 1662620 ####[facility] [address] [place] [address] Platelets (Bld) [#/Vol] 340.0 E9/L Normal 150.0-500.0 [facility] Comment on above: Performed By: #### 1 [id number], 1660442, 5691145, 0681928, 7029637 ####[facility] [address] [place] [address] RBC (Bld) [#/Vol] 4.6 E12/L Normal 4.3-5.9 [facility] Comment on above: Performed By: #### 1 2638290, 1494854, 9626159, 9088157, 8481636 ####[facility] [address] [place] [address] WBC corrected for nucl RBC Auto (Bld) [#/Vol] 13.0 E9/L High 4.0-11.0 [facility] Comment on above: Performed By: #### 1 [id number], 1298654, 5299154, 2549797, 7025584 ####[facility] [address] [place] [address] CHEMISTRYOrdered By: SYSTEM SYSTEM on 08-26-2022 Albumin [...] m2 FT Chem S Globulin (S) [Mass/Vol] 3.4 g/dL [...] L [facility] Remisol Urea nitrogen/Creatinine [Mass ratio] 15 mg/mg Normal 10 - 20 [facility] Remisol CMPon 08-26-2022 Albumin [Mass/Vol] 4.4 g/dL Normal 3.3-5.0 [facility] Comment on above: Performed By: #### 1 [id number], 7407583, 6281015, 9115087, 3026677 ####[facility] [place] [address] Albumin/Globulin (S) [Mass conc ratio] 1.3 Normal 1.1-2.2 [facility] Comment on above: Performed By: #### 1 3885036, 4036389, 6964883, 9509761, 0409589 ####[facility] [address] [place] [address] ALP [Catalytic activity/Vol] 66 Int._Unit/L Normal 21-98 [facility] Comment on above: Performed By: #### 1 9811477, 1232181, 1246437, 1641631, 3762055 ####[facility] [address] [place] [address] ALT No additional P-5'-P [Catalytic activity/Vol] 20 Int._Unit/L Normal 6-46 [facility] Comment on above: Performed By: #### 1 4735083, 3693654, 8337227, 5266602, 4335715 ####[facility] [address] [place] [address] AST [Catalytic activity/Vol] 20 Int._Unit/L Normal 5-43 [facility] Comment on above: Performed By: #### 1 2478712, 3508373, 7451604, 9099295, 5693700 ####[facility] [address] [place] [address] Bilirubin [Mass/Vol] 0.6 mg/dL Normal 0.0-1.1 [facility] Comment on above: Performed By: #### 1 5165231, 3166281, 3624552, 9191442, 1076296 ####[facility] [address] [place] [address] Creatinine [Mass/Vol] 0.6 mg/dL Normal 0.5-1.3 [facility] Comment on above: Performed By: #### 1 7114992, 1704732, 7033421, 7859947, 2346830 ####[facility] [address] [place] [address] Globulin (S) [Mass/Vol] 3.4 g/dL Normal 1.4-4.0 [facility] Comment on above: Performed By: #### 1 3663768, 2863989, 2933228, 1394196, 6635456 ####[facility] [address] [place] [address] Protein [Mass/Vol] 7.8 g/dL Normal 6.0-7.8 [facility] Comment on above: Performed By: #### 1 7902783, 6853472, 0366835, 8368847, 5977360 ####[facility] [address] [place] [address] Urea nitrogen [Mass/Vol] 9 mg/dL Normal 5-21 [facility] Comment on above: Performed By: #### 1 1442454, 7657989, 8760044, 8147506, 4243653 ####[facility] [address] [place] [address] Urea nitrogen/Creatinine [Mass ratio] 15 No Units Normal 10-20 [facility] Comment on above: Performed By: #### 1 2414436, 1252037, 5172740, 4258872, 1183136 ####[facility] [address] [place] [address] Anion gap [Moles/Vol] 13 mmol/L Normal 6-16 [facility] Comment on above: Performed By: #### 1 1511900, 0581160, 1538938, 6762029, 4825066 ####[facility] [address] [place] [address] Calcium [Mass/Vol] 9.4 mg/dL Normal 8.9-11.1 [facility] Comment on above: Performed By: #### 1 1351423, 8916586, 1881376, 1779291, 0024014 ####[facility] [address] [place] [address] Chloride [Moles/Vol] 103 mmol/L Normal 101-111 [facility] Comment on above: Performed By: #### 1 3996159, 6990141, 7909169, 5929723, 0300525 ####[facility] [address] [place] [address] CO2 [Moles/Vol] 21 mmol/L Normal 21-31 [facility] Comment on above: Performed By: #### 1 1339988, 4001442, 0308579, 6932762, 2027804 ####[facility] [address] [place] [address] Glucose [Mass/Vol] 123 mg/dL Normal 55-199 [facility] Comment on above: Result Comment: If t his glucose result represents a fasting glucose, interpretation should refer to the following reference range: 55-99 mg/dL Performed By: #### 1 9745085, 0870680, 5739323, 8471127, 2654116 ####[facility] [address] [place] [address] Potassium [Moles/Vol] 3.7 mmol/L Normal 3.5-5.3 [facility] Comment on above: Performed By: #### 1 6094611, 3308424, 9029710, 2539077, 1771365 ####[facility] [address] [place] [address] Sodium [Moles/Vol] 133 mmol/L Low 135-145 [facility] Comment on above: Performed By: #### 1 4259358, 5251176, 9751769, 9311371, 1367187 ####[facility] [address] [place] [address] Consent for Treatmenton Consent for Treatment [id number] #[id number]:127 Normal [facility] Discharge Instructionson Discharge Instructions [id number]#1.00CD:127 Normal [facility] ED Clinical Summaryon 2022 ED Clinical Summary [address] [address] ED Clinical Summary Person Information Name: ROQUE PIERSON [facility] Age: 22 Years : 2000 Sex: Female Language: Argentine PCP: Ambrose Urbano MD Marital Status: Single [...] 08/26/2022 12:55:17 08/26/2022 12:55:17 08/26/2022 12:55:17 ADDRESS: [address] [place] [id number] PHYS DOC NOTES: MEDICAL INFORMATION: Prescriptions Given: [...] Follow up: With: Address: When: Julius CROCKETT [facility], [address] , [place] [address] Business (1) In 3 days 08/29/2022 With: Address: When: Ambrose Urbano [address] [facility], [place] [address] Business (1) In 3 days DIAGNOSIS: Hyperemesis gravidarum Normal [facility] ED Note-Physicianon 08-26-19 ED Note-Physician Basic Information Time Seen: Kei Moore DO 08/26/2022 11:01 Chief Complaint pt reports nausea for 2-3 weeks, Seen in [place] ED for this and given fluids/meds in ED. Mild abd pain. Pt reports 6 wks . History of Present Illness 22 female presents emergency department with intractable nausea and vomiting. Patient states that she is about 6 weeks she is G1, P0 and has had prior ultrasound done in [place]. Patient states that just recently she was seen in the [place] emergency department was given fluids and medications [...] and Complexity of Problems Differential Diagnosis: [] [facility] Data External documents reviewed: [] My EKG [...] discharged home educated to follow-up with her OSTOMY RN physician. She is discharged with prescription for [...] Information Julius CROCKETT In 3 days 08/29/[address] [place] [address]- Business (1) Additional Instructions: Ambrose Urbano In 3 days [address] [place] [address]- Business (1) Additional Instructions: Problem List/Past Medical [...] Household t (more content not included)... Normal [facility] Comment on above: Result Comment: Elec tronically Signed By: Kei Moore DO\.br\Date and Time Signed: 08/26/22 12:48 EST ED Patient Education Noteon 08-26-2022 ED Patient Education Note Normal [facility] ED Patient Summaryon 023 ED Patient Summary [address] [address] Patient Discharge Instructions Person Information Name: ROQUE PIERSON Age: 22 Years Arrival Date: 08/26/2022 10:59:05 Discharge Diagnosis: Hyperemesis gravidarum Primary Care Physician: Ambrose Urbano MD Provider Information Primary Provider: Kei Moore DO Advanced Drip Molder:None The exam and treatment you received in the Emergency Department were for an urgent problem and are not intended as complete care. It is important that you follow up with a doctor, nurse practitioner, or physician?s diagnostic assistant for ongoing care. If your symptoms become worse or you do not improve as expected and you are unable to reach your usual health care provider, you should return to the Emergency Department. We are available 24 hours a day. ROQUE PIERSON has been given the following list of patient education materials, prescriptions and follow-up instructions: Follow-up Instructions: With: Address: When: Julius [facility], [address] [place] [address] Dr. [facility] Abdulaziz [place] [phone] Business (1) In 3 days 08/29/2022 With: Address: When: Ambrose Urbano [facility] [place] [address] Business (1) In 3 days In the event that this physician does not participate in your insurance network, please consult with your insurance company to find a nearby participating provider. Patient Education Materials: A MESSAGE TO ALL PATIENTS REGARDING OPIOIDS PRESCRIPTION OPIOIDS: WHAT YOU NEED TO KNOW Prescription opioids can be used to help relieve itmpxszk-yq-qplwae pain and are often prescribed following a [...] your he (more content not included)... Normal [facility] HEMATOLOGYOrdered By: SYSTEM SYSTEM on 08-26-2022 [...] 13.6 g/dL Normal 12.0 - 16.0 gm/dL FT HemeAutoSS MCH (RBC) [Entitic mass] 29.4 pg [...] 13.0 E9/L High 4.0 - 11.0 E9/L [facility] HemeAutoSS Lipase Levelon 08-26-2022 Lipase [Catalytic activity/Vol] 27 U/L Normal 13-58 [facility] Comment on above: Performed By: #### 1 4240016, 7126712, 2590412, 6174698, 8942629 ####[facility] [address] [place] [address] UA With Cult Reflexon 2022 Bacteria LM Ql (Urine sed) TRACE Normal Trace [facility] Comment on above: Performed By: #### 1 9591445 #### [facility] [address] [place] [address] Bilirubin Ql (U) Negative Normal Negative [facility] Comment on above: Performed By: #### 1 8723509 #### [facility] [address] [place] [address] Clarity (U) CLEAR Normal Clear [facility] Comment on above: Performed By: #### 1 0189088 #### [facility] [address] [place] [address] Color (U) YELLOW Normal Yellow [facility] Comment on above: Performed By: #### 1 7538698 #### [facility] [address] [place] [address] Epithelial cells.squamous LM.HPF (Urine sed) [#/Area] 5-8 Normal 0-2 [facility] Comment on above: Performed By: #### 1 6772707 #### [facility] [address] [place] [address] Glucose Test strip (U) [Mass/Vol] Negative Normal Negative [facility] Comment on above: Performed By: #### 1 2041304 #### [facility] [address] [place] [address] Hemoglobin Ql (U) Negative Normal Negative [facility] Comment on above: Performed By: #### 1 8214965 #### [facility] [address] [place] [address] Ketones (U) [Mass/Vol] 2+ Abnormal Negative Fi [facility] [place] Comment on above: Performed By: #### 1 [id number] #### [facility] [address] [place] [address] [place].plasma/Holualoa.R BC (Bld) [Mass ratio] 0-3 Normal 0-3 [facility] Comment on above: Performed By: #### 1 2134791 #### [facility] [address] [place] [address] Mucus Ql (Urine sed) 2+ Normal [facility] Comment on above: Performed By: #### 1 2437475 #### [facility] [address] [place] [address] Nitrite Ql (U) Negative Normal Negative [facility] Comment on above: Performed By: #### 1 8331102 #### [facility] [address] [place] [address] pH (U) 8.5 [pH] Invalid Interpretation Code 5.0-9.0 [facility] Comment on above: Performed By: #### 1 9914824 #### [facility] [address] [place] [address] Protein (U) [Mass/Vol] TRACE Abnormal Negative Fi [facility] [place] [facility] Comment on above: Performed By: #### 1 7998568 #### [facility] [address] [place] [address] Specific gravity (U) [Rel density] 1.015 Invalid Interpretation Code 1.005-1.030 [facility] Comment on above: Performed By: #### 1 5636523 #### [facility] [address] [place] [address] Type of Urine collection method Clean Catch Normal [facility] Comment on above: Performed By: #### 1 [id number] #### [facility] [address] [place] [address] Urobilinogen Qn (U) 0.2 {Andrea'U}/dL Normal 0.0-1.0 [facility] Comment on above: Performed By: #### 1 [id number] #### [facility] [address] [place] [address] WBC Auto Ql (U) Negative Normal Negative [facility] Comment on above: Performed By: #### 1 6290575 #### [facility] [address] [place] [address] WBC LM.HPF (Urine sed) [#/Area] 0-5 Normal 0-5 [facility] Comment on above: Performed By: #### 1 8062796 #### [facility] [address] [place] [address] URINALYSISOrdered By: Renato Norman on 08-26-2022 Bacteria LM Ql (Urine sed) Trace /HPF Normal Trace/HPF [facility]A Auto SS Bilirubin Ql (U) Negative (08/26/22 12:01 PM) Normal Negative [facility] UA Auto SS Clarity (U) Clear (08/26/22 12:01 PM) Normal Clear [facility] UA Auto SS Color (U) Yellow (08/26/22 12:01 PM) Normal Yellow FT UA Auto SS [...] Interpretation Code Negative [facility] UA Auto SS [place].plasma/Holualoa.R BC (Bld) [Mass ratio] 0-3 /HPF Normal [...] [facility] UA Auto SS Urobilinogen Qn (U) 0.0243241 {Andrea'U}/dL Normal 0.0 - 1.0 EU/dL [facility] UA Auto SS WBC Auto Ql (U) Negative (08/26/22 12:01 PM) Normal Negative [facility] UA Auto SS WBC LM.HPF (Urine sed) [#/Area] 0-5 /HPF Normal 0-5/HPF [facility] UA Auto SS eGFRon 08-26-2022 GFR/1.73 sq M.predicted among blacks MDRD (S/P/Bld) [Vol rate/Area] mL/min/{1.73_m2} Normal >=59 [facility] Comment on above: Order Comment: Order added by Discern Expert. Result Comment: eGFR is race adjusted. AA=. Performed By: #### 1 9609759, 8178697, 6861816, 5088617, 6641413 ####[facility] [address] [place] [address] GFR/1.73 sq M.predicted among non-blacks MDRD (S/P/Bld) [Vol rate/Area] mL/min/{1.73_m2} Normal >=59 [facility] Comment on above: Order Comment: Order added by Discern Expert. Result Comment: Sales Facilitator emil kidney disease could be indicated at eGFR's of less than 60 mL/min/1.73m2. Kidney failure is indicated at less than 15 mL/min/1.73m2. Performed By: #### 1 [id number], 5649400, 6348902, 6049864, 2090626 ####[facility] [address] [place] [address] CBC with Auto Differentialon 08-24-2022 Absolute Eos # 0.60 High [facility] Absolute Lymph # 2.30 [facility] Absolute [place] # 1.00 [facility] RS [facility] Basophils (Bld) [#/Vol] 0.10 10*3/uL [facility] Basophils/100 WBC (Bld) 0 % 0 - 2 % B ON [facility] Differential Type YES [facility] Eosinophils/100 WBC (Bld) 4 % 0 - 5 % [facility] Hematocrit (Bld) [Volume fraction] 38.3 % 36 - 46 % [facility] Hemoglobin (Bld) [Mass/Vol] 12.7 g/dL 12.0 - 16.0 g/dL [facility] Interpretation and review of laboratory results Abnormal [facility] Lymphocytes/100 WBC (Bld) 16 % 15 - 40 % [facility] MCH (RBC) [Entitic mass] 29.3 pg 26 - 34 pg [facility] MCHC (RBC) [Mass/Vol] 33.1 g/dL 31 - 37 g/dL B ON [facility] MCV (RBC) [Entitic vol] 88.6 fL 80 - 100 fL [facility] Monocytes/100 WBC (Bld) 7 % 4 - 8 % B ON [facility] Platelet distribution width (Bld) [Ratio] 13.1 % 12.1 - 15.2 % [facility] Platelets (Bld) [#/Vol] 324 10*3/uL [facility] RBC (Bld) [#/Vol] 4.32 10*6/uL 4.0 - 5.2 m/uL [facility] Segmented neutrophils/100 WBC (Bld) 73 % 47 - 75 % [facility] Segs Absolute 10.20 High [facility] WBC (Bld) [#/Vol] 14.1 10*3/uL High [facility] Comprehensive Metabolic Pane aramis 08-24-2022 Albumin [Mass/Vol] 4.4 g/dL 3.5 - 5.2 g/dL [facility] ALP (Bld) [Catalytic activity/Vol] 75 U/L 35 - 104 U/L [facility] ALT [Catalytic activity/Vol] 14 U/L 5 - 33 U/L [facility] Anion gap [Moles/Vol] 12 mmol/L 9 - 17 mmol/L [facility] AST [Catalytic activity/Vol] 14 U/L NINF - 32 U/L [facility] Bilirubin [Mass/Vol] 0.3 mg/dL 0.3 - 1 .2 mg/dL [facility] Calcium [Mass/Vol] 9.0 mg/dL 8.6 - 10. 4 mg/dL [facility] Chloride [Moles/Vol] 102 mmol/L 98 - 10 7 mmol/L [facility] CO2 [Moles/Vol] 22 mmol/L 20 - 31 mmol/L [facility] Creatinine [Mass/Vol] 0.52 mg/dL 0.50 - 0.90 mg/dL [facility] GFR/1.73 sq M.predicted MDRD (S/P/Bld) [Vol rate/Area] - PINF [facility] Comment on above: Effective May 27, [...] 124 mg/dL High 70 - 99 mg/dL [facility] Interpretation and review of laboratory results Abnormal [facility] Potassium [Moles/Vol] 3.2 mmol/L Low 3.7 - 5.3 mmol/L [facility] Protein [Mass/Vol] 6.7 g/dL 6.4 - 8.3 g/dL [facility] Sodium [Moles/Vol] 136 mmol/L 135 - 144 mmol/L [facility] Urea nitrogen (BldV) [Mass/Vol] 10 mg/dL 6 - 20 mg/dL [facility] Urea nitrogen/Creatinine (Bld) [Mass ratio] 19 9 - 20 [facility] HCG Qualitative, Serumon hCG Qual Positive Abnormal NEGATIVE [facility] Comment on above: If HCG results do not concur with clinical observations, additional testing to confirm result is recommended. This test is not labeled for use as a tumor marker. [employer] has confirmed the use of plasma for this test. This has not been cleared or approved by the U.S. Food and Drug Administration. The FDA has determined that such clearance is not necessary. Interpretation and review of laboratory results Abnormal [facility] Urinalysison 08-24-2022 Bilirubin Urine Negative NEGATIVE [facility] Color, UA Yellow Yellow [facility] Glucose, Ur Negative NEGATIVE [facility] Interpretation and review of laboratory results Abnormal [facility] Ketones Ql (U) MODERATE Abnormal NEGATIVE [facility] Leukocyte esterase Test strip Ql (U) Negative NEGATIVE [facility] Nitrite, Urine Negative NEGATIVE [facility] pH, UA 6.0 5.0 - 8.0 [facility] Protein, UA TRACE Abnormal NEGATIVE [facility] Specific [place], UA 1.025 1.005 - 1.030 [facility] Turbidity UA Clear Clear [facility] Urinalysis Comments [facility] Urine Hgb Negative NEGATIVE [facility] Urobilinogen, Urine Normal Normal [facility] CBC with Auto Differentialon 08-10-2022 Absolute Eos # 0.30 [facility] Absolute Lymph # 2.80 [facility] Absolute Laurel # 0.80 [facility] Basophils (Bld) [#/Vol] 0.00 10*3/uL [facility] Basophils/100 WBC (Bld) 0 % 0 - 2 % B ON [facility] Differential Type YES [facility] Eosinophils/100 WBC (Bld) 3 % 0 - 5 % [facility] Hematocrit (Bld) [Volume fraction] 37.7 % 36 - 46 % [facility] Hemoglobin (Bld) [Mass/Vol] 12.7 g/dL 12.0 - 16.0 g/dL [facility] Lymphocytes/100 WBC (Bld) 26 % 15 - 40 % [facility] MCH (RBC) [Entitic mass] 29.5 pg 26 - 34 pg [facility] MCHC (RBC) [Mass/Vol] 33.7 g/dL 31 - 37 g/dL B ON [facility] MCV (RBC) [Entitic vol] 87.5 fL 80 - 100 fL [facility] Monocytes/100 WBC (Bld) 8 % 4 - 8 % B ON [facility] Platelet distribution width (Bld) [Ratio] 13.1 % 12.1 - 15.2 % [facility] Platelets (Bld) [#/Vol] 269 10*3/uL [facility] RBC (Bld) [#/Vol] 4.31 10*6/uL 4.0 - 5.2 m/uL [facility] Segmented neutrophils/100 WBC (Bld) 63 % 47 - 75 % [facility] Segs Absolute 7.00 [facility] WBC (Bld) [#/Vol] 10.9 10*3/uL [facility] CMPon 08-10-2022 Albumin [Mass/Vol] 4.2 g/dL 3.5 - 5.2 g/dL [facility] ALP (Bld) [Catalytic activity/Vol] 75 U/L 35 - 104 U/L [facility] ALT [Catalytic activity/Vol] 18 U/L 5 - 33 U/L [facility] Anion gap [Moles/Vol] 7 mmol/L Low 9 - 17 mmol/L [facility] AST [Catalytic activity/Vol] 16 U/L NINF - 32 U/L [facility] Bilirubin [Mass/Vol] 0.2 mg/dL Low 0.3 - 1 .2 mg/dL [facility] Calcium [Mass/Vol] 9.1 mg/dL 8.6 - 10. 4 mg/dL [facility] Chloride [Moles/Vol] 108 mmol/L High 98 - 10 7 mmol/L [facility] CO2 [Moles/Vol] 25 mmol/L 20 - 31 mmol/L [facility] Creatinine [Mass/Vol] 0.58 mg/dL 0.50 - 0.90 mg/dL [facility] GFR/1.73 sq M.predicted MDRD (S/P/Bld) [Vol rate/Area] - PINF [facility] Comment on above: Effective May 27, [...] [Mass/Vol] 95 mg/dL 70 - 99 mg/dL [facility] Interpretation and review of laboratory results Abnormal [facility] Potassium [Moles/Vol] 4.2 mmol/L 3.7 - 5.3 mmol/L [facility] Protein [Mass/Vol] 6.8 g/dL 6.4 - 8.3 g/dL [facility] Sodium [Moles/Vol] 140 mmol/L 135 - 144 mmol/L [facility] Urea nitrogen (BldV) [Mass/Vol] 7 mg/dL 6 - 20 mg/dL [facility] Urea nitrogen/Creatinine (Bld) [Mass ratio] 12 9 - 20 [facility] Lipaseon 08-10-2022 Lipase [Catalytic activity/Vol] 26 U/L 13 - 60 U/L [facility] No Panel Informationon 08-10 [facility] Urinalysison 08-10-2022 Bilirubin Urine Negative NEGATIVE [facility] Color, UA Yellow Yellow [facility] Glucose, Ur Negative NEGATIVE [facility] Interpretation and review of laboratory results Abnormal [facility] Ketones Ql (U) Negative NEGATIVE [facility] Leukocyte esterase Test strip Ql (U) Negative NEGATIVE [facility] Nitrite, Urine Negative NEGATIVE [facility] pH, UA 7.0 5.0 - 8.0 [facility] Protein, UA TRACE Abnormal NEGATIVE [facility] Specific [place], UA 1.010 1.005 - 1.030 [facility] Turbidity UA Clear Clear [facility] Urinalysis Comments [facility] Urine Hgb Negative NEGATIVE [facility] Urobilinogen, Urine Normal Normal [facility] hCG, quantitative, on 08-10-2022 hCG Quant 587 High NINF [facility] Comment on above: Non-preg premeno <=5 Postmeno <=8 Male <=3 If HCG results do not concur with clinical observations, additional testing to confirm results is recommended. Interpretation and review of laboratory results Abnormal [facility] Coding Summary.on 07-15-2022 Coding Summary. [id number] Gh0bWw+PGhlYWQ+PE1FV OGgS36tzVJajE1RT0mWA M8BGYYELHEXFR7JQH3gb EJ0AHcpK2OgnoSc QgjelXCoIK23LXt7GUV6 aTeoASlztA6naDHcP5n4 QkDvOD95tQ51EIpyUCXl HdD3KvOcxssexFWj P3okGqYrfKDrWrp+PHRh YmxlIHdpZHRoPScxMDAl MrQfrRmsTO0iVf9uEYGk LWNvbGxhcHNlOiBj v0fxZRYcZFpoQA4yyHmt I2HpaFX9TLZzs8i4Mo95 dHI+WVOyINF9wYpgFIdb j742EqYdw4xkGJY2 mEFpBLjcSZT0H62tq1X4 LLIaACEwGYH4mWC3rE7w fRxnuhkeW3TndLVgIbO0 KEX2fEZrrL8pvZby pfsajC2xPef+N15TJR8I KQYGYD6RNfw8O6ImHual dHI+HM00XZHeCY17uWTq ePLtm7lfaIo0MsKo BWAbWIO9hSqpUHkxy7Gw FGRgX12mdEDkm1N9DEUl lFevyBEqMrOddOY4oG5k ASlmvptyq0otnuff Hygjm5kvzg32pR50G01p XUaxUIBqVTZ5JFQyZZKq aChkma8hbI8uPq2+IDxj o4bjd4gxkLs0QyAb IULfsiDjrBbgAPB1d1Kr Zf27R5FewNpwn7SmQkj0 ww58rIEpp4K2mAK1JZzh RIUukB5fKHktEvL3 BCQlXfHtkN40wJZyRTqo Hi6jnDgfiYybFL7sHNWz mrdpTFGntG5aPYRxeXLt eZluWA8pAWHsmxux o166ObLkMOX6QUHpiRLg O6PcoV6kQiJkAZEvEDCa W7CakPOaAXrvU121PWga CuG8KLVgewSdV3Xt XOFvvZfsOzK3f0T6Wi0L a0IlmlqiBDU8MJjoBTPe OmKuWiVzRaC5J3LyXiu2 YWAsdOqeFH6vJ2Va IGTimsnldsxfcYP0GFIg OYGeoF94iXHlKIhsDf4s y9U1t062ZRFcBEWxcC79 Fv1wbPkvGCMmxOJE cJ3yrpbod1drmguuBjJo PLUoSXe4ZOi0XGUhfZlu GhTqKOP9PhO4WVR3xPGy nN3dkBynzuzydF2s Oyc+M72emF0bKYG6DVF0 jwifCSIbsbFxVE27BB63 Y6XeFnrinFPolHQ+PGRp ehNjzCoiTZ6yVhBf e1obb3LdWZweD2UtIOLq YMlmMce6HEDkJFT6zJU0 bD8qYYLcDDkua7P4eDT4 R2OtfeSrhv7xc2ef DDEwBXucT57wqHVcp2G7 LZQyxEP8BJTjuHzqWzKd dR39Gpj+VLEcbFsuu1Ts Rrios9gkw8ffuCe4 IjMwJSIgdmFsaWduPSJ0 u0TcXi07I73oIJwyMPRr JPLaGZEyXZIgfAocui5v tK4dHb5+PGNvbCB3 rLW3iF9kFXUwQwE1CHvf T306FgDyqXSxSjtpw3hn x4wgtKy1IgHrPCAzvcNr pEliQHE7p9NjKh01 W79gUVguJMWpENAfWBZh IYDjaGliik9esT1jUj2+ GW3fi9kfir01mZ26hKN+ UMZpZNG4pVpuQKnq PSDdlF3sNJkaOkM7HOKc PuSisJ38xKDoEFrfTx0l qRaasSjwQV1rCDJjbiec n592GpEem5jdWSGq pONiEVrqQMO2N01jj9X4 FJDaMQRvLUN5fOA1tF6q bGlnbjogbGVmdDsgdmVy rYxxAYcmXRuwP184 IHRvcDsnPlBhdGllbnQg QwJbOVy1U9CbXff3CLHb oShlAD8kgMBlFKsjVw6m nWrwhBavEJ5lTPBt gkosw276ObNat5tpNODe rZWdRLxuTAA5B03hs4B5 NECiSUQzBOQ3rWR7eD5m bGlnbjogbGVmdDsg rfTmiCbgMJybQFfyV750 IHRvcDsnPkJpcnRoIERh aNU5TX56CX19bIOau8V9 hQH6P8CmAONyrwiz tsogqIZ8CNPbYDKzsO05 Vh5xtJarGj3bUKScRZJ8 STIlvWCeA4NceT9dSuAp XAKxXLZoA2NsaYNl XEpmS587MHlrLxB0AFMk buZhY5CsPRNyxHlsNuR2 c1L0Az4FC2U9UO74SP42 kWOxd7M5uIL0R5Mn DEFiamcgmubewHF1JNBz IZRbzX23Gi4woBkgLr0p HXWbAHF7UMMdvLEgW6Tg hF9oKbBnMJTaWZYh V9XjcWXzJBheI679ETds MxS4NZAaaxBkJ1RzXVHm dWcnBkQ3l7M5Kc9CCCa0 TS67CR47aOSra4F0 dBQ5M5TdONEzgmahvrda rTL1QHVpLSAboM10Zq8e oHtoBk3sJXGfAST3ZDVz kMTmJ6XyoG4wNaDn UQSiUCAgJ0YuiAVrNDhi J096WMccFuD0DBQpigZu I0JcXBXzmCgeZrL6z7H6 Fs6DYQGvJH12NHK9 sIV4LE78DF06G8DrWskq dGFibGU+PHRhYmxlIHdp ZHRoPScxMDAlJyBzdHls XR3xIf9uIUXuPKCk jEitsBRhOqEzr8diDVRs XYwtRR2onDseA2BgnFD4 DNMoj6z6Oh53J20lL5Zb dXA+RAGfbJZ4pLB4 hH3kMcFoZjG8DLaeR435 UxJqwMOdMunez6adk0ll nUk8PfC7BWAxoaPpwCse XUI7q1ZhTi27J03k IHdpZHRoPSIxNSUiIHZh sFpjqt2drI8rAt1+PGNv dOD9zDE0hI6oQmIwAjZ2 DLzcS165AkOwrMQa Teizt6afv9rwlXq5SgSn EFYaepCyrIhcFLM5g6Yx Uv35D6YwiFjlv9AnVsr2 jc78qFTur1J1sTX0 E2FcFSMurocwzBPzaPrk WV6hRMPhwkmiBENjkQ4q UHFqR1m7UxHfQjS9SLvs T5ApsmH7AFWydFSj DRunHIO1Y72jr2Y7XKFa WMAmREM8cIF8jD4iiLfc bjogbGVmdDsgdmVydGlj EWbjVNhzT742USIs tJalHSSzzV5oPOOgxULy pLlqMT3mOWKpjtmgAv9R QRMQDASYYAQOFASLUB3F CE43K4ZrUjl5FIIp cLjuBI0bnOMcNXeoBc4f uPdybMcsMU9oXEMyshdi ABCdvG1nLUMzpRJjyCsr IV6hEISpiddxn737 EnIrKDH4USYaoFLuC2Ht dV7qRrIqEFPpRRGbL1Wa qRKgWDhwT018WXskFuU0 FJPqvpMhN0SdPZTr oArmByW2o7G7Pt3qJY4i AZ4rTZWyMR12WI34sDRc e9P9zTZ9I7FoTGLwstgg pxckeTX7KJNlKFYk yH38oYVvOBvaDb9ik1X5 s918EPSkFZWnuV01Hv3l iDmxIQFnkSJSgZ2xyolh o9qbnadqRiWdEJSw BIc6NLu0BNFyvObvZnId WUS3EoH6BCF0mUWxeS5v pLbecrinwO5dYhm+MjEg QSAjvhL8R1OfQak2 GIIpvTxfOZ8nmUCuIQdn Ua3tjUfkmVfkKI9kCHHd kyvrFQQfjV6tQCAjpMTf gGeiVP6tJCAlaknf m454ZmYfRAQ2UMQqsBOa F5JdhX5cSjYnJKJzJLWk W0GilMGeVKrlS717NJiu FdB0EEGybhZyG8Ig RLVpaTyxFcV5z5B8En9N SQ6dtHD3Z2KoTne9OWUw zIveHI4woRSlEMpaBn3w zAydjMwnCP3hSDQf xjlaLHGxoJ2ySAHjaKDg qQjmPU7dMRYlycerk841 GzPkPMG0OYRukKEyR1Mj jB4hXoWdNUFyPXXb G9WieEXlDJxyE155TRsz TlQ6MNRuxcBqM5IjDJQj jKtpSzN9j9I7Ty9MsEEc K9ZiF9w2E9EwTbtt dHI+AS44RZUqZF44gRGu qYKkf5rfdAs4KvHfKTBg TAN3xJtgRHktp1OrBZWq L02ndSTzc5Y4ZLTb eNaeeNBxTxJmhNA0rC3s XDcrzecjm6xpvhevBevp b9oylc35cU17Z70bVXkc ZHRoPSIzMCUiIHZh iOgwur9grS0aLs2+PGNv aME7yXH7kD1vItCnIxU7 VWihX250MxVwvQRtGnpr h1ipz7qgkSj3ViDm RTDnmdZdvSmfPOI8r6Wg Mg89B03jTTprMVRqADCp UHJzLNIdiZlmjl5cxX5s Ii8+IT1yr2ezjy91 rO20aPE+DUIyACF5qWbg MXniUXOobQ3qAJlbRlY0 CDSaYtOpmN03vGShRUnf Ww8jtIsfhOgpEW9i HNXtiizwq887UlQnv2dd UWVjpEZaLNqoQWO4Q34k r9E6JXLzBKEjFAX1lPR0 uT0dlPlpbtarwHRt dDsgdmVydGljYWwtYWxp V985NJCpkIasGaKxnLKl G1gkeyZJDQ6qKdguaRL+ ZAGaFGC7gLuaFVvy LACdnN4xMMEfO9o0YyBy HxQ3EJgnP2PugoW3GKRw zTZmULAegDPCwI1ahxva f3hhsthzLqCvFZQr OAt1FQg7RZKbvLyrDwKx EWS6ZgR1HJF7cSPkeA8m jSaoujdyvB8iDky+RklO OjwvdGQ+PHRkIHN0 nTlbNPfnGGRvwS8vLWJi B4u0PeSyNnI4WShtV7Mm qoP6EZIvgIFeOFOgeKBE bO6ntqcqk2qulpsp MiRtHFZnFVk4CIs6DNUh hDcdJiCuRUC6QrP6VZY7 kIDktI9naBujnstrlO3k Oyc+TVJOOjwvdGQ+ ZOBfYGT7tBwcWAjhSONq rK2qCSAnW9u4HyShLuM0 QKpmT5BehdS3YMQpsUIw HQMhvCVGbB8nqnuy w7gkzuzxEiLjKGCqZAy3 QMp6ICAacNzdDfCjVOJ1 UyO7SVQ7pQDjqL6aqJsf vguayH9sQix+UGF5 ZCB9SG42DX03D5YrDrmj dGFibGU+PHRhYmxlIHdp ZHRoPScxMDAlJyBzdHls AV5dIl8hGMSpPIGs bGxh (more content not included)... Normal [facility] Auto Diffon 07-12-2022 Basophils/100 WBC (Bld) 0.6 % Normal 0.0-2.0 [facility] Comment on above: Order Comment: Order Added by Discern Expert. Performed By: #### 2 669532, 9863545, 4267111, 1500817, 81471690, 1868182, 8063652 #### [facility] [address] [place] [address] Basophils/Leukocytes Auto (Bld) [Pure # fraction] 0.1 E9/L Normal 0.0-0.2 [facility] Comment on above: Order Comment: Order Added by Discern Expert. Performed By: #### 2 903351, 2272619, 4640409, 3713483, 30560188, 5829199, 7867041 #### [facility] [address] [place] [address] Eosinophils/100 WBC (Bld) 5.6 % Normal 0.0-8.0 [facility] Comment on above: Order Comment: Order Added by Ally Expert. Performed By: #### 2 978759, 0980088, 1993027, 5358965, 66755805, 9169615, 8048608 #### [facility] [address] [place] [address] Eosinophils/Leukocytes Auto (Bld) [Pure # fraction] 0.5 E9/L Normal 0.0-0.5 [facility] Comment on above: Order Comment: Order Added by Ally Expert. Performed By: #### 2 834019, 1628086, 8217650, 8285903, 66226333, 1895328, 0400529 #### [facility] [address] [place] [address] 96[address] Lymphocytes/100 WBC (Bld) 34.7 % Normal 14.0-50.0 [facility] Comment on above: Order Comment: Order Added by Ally Expert. Performed By: #### 2 392098, 3378939, 8519650, 8761636, 77634758, 9796582, 0039636 #### [facility] [address] [place] [address] Lymphocytes/Leukocytes Auto (Bld) [Pure # fraction] 3.1 E9/L Normal 1.0-4.0 [facility] Comment on above: Order Comment: Order Added by Discern Expert. Performed By: #### 2 938338, 7734492, 5526647, 6030828, 84614190, 5804738, 3221426 #### [facility] [address] [place] [address] Monocytes/100 WBC (Bld) 10.3 % Normal 4.0-14.0 [facility] Comment on above: Order Comment: Order Added by Discern Expert. Performed By: #### 2 737765, 0910129, 6361291, 2250779, 79034473, 6618143, 2987796 #### [facility] [address] [place] [address] Monocytes/Leukocytes Auto (Bld) [Pure # fraction] 0.9 E9/L Normal 0.2-1.0 [facility] Comment on above: Order Comment: Order Added by Ally Expert. Performed By: #### 2 290022, 3115644, 9331947, 9159167, 74068493, 7237478, 3388182 #### [facility] [address] [place] [address]28[address] Neutrophils/100 WBC (Bld) 48.8 % Normal 36.0-75.0 [facility] Comment on above: Order Comment: Order Added by Ally Expert. Performed By: #### 2 447716, 6709178, 5266077, 3540281, 75293081, 6592981, 8588930 #### [facility] [address] [place] [address] Neutrophils/Leukocytes Auto (Bld) [Pure # fraction] 4.4 E9/L Normal 2.0-7.5 [facility] Comment on above: Order Comment: Order Added by Ally Expert. Performed By: #### 2 798143, 3110272, 5550333, 9172379, 36307127, 2636995, 1043467 #### [facility] [address] [place] [address] B hCG Qualon 07-12-2022 Beta hCG Ql Negative Normal [facility] Comment on above: Performed By: #### 2 622774, 4757691, 7743324, 3619637, 47787283, 2483344, 2466171 #### [facility] [address] [place] [address] BMPon 07-12-2022 Creatinine [Mass/Vol] 0.7 mg/dL Normal 0.5-1.3 [facility] Comment on above: Performed By: #### 2 127354, 2783994, 8240637, 7400197, 89724926, 2032990, 3236262 #### [facility] [address] [place] [address] Urea nitrogen [Mass/Vol] 9 mg/dL Normal 5-21 [facility] Comment on above: Performed By: #### 2 215990, 3333830, 8593595, 1077330, 92014523, 1031791, 8540444 #### [facility] [address] [place] [address] Urea nitrogen/Creatinine [Mass ratio] 13 No Units Normal 10-20 [facility] Comment on above: Performed By: #### 2 850833, 0395832, 3868624, 2143822, 06305050, 4614004, 3981887 #### [facility] [address] [place] [address] Anion gap [Moles/Vol] 7 mmol/L Normal 6-16 [facility] Comment on above: Performed By: #### 2 832777, 1987279, 1684721, 9716585, 12666710, 7068431, 9676594 #### [facility] [address] [place] [address] Calcium [Mass/Vol] 8.8 mg/dL Low 8.9-11.1 [facility] Comment on above: Performed By: #### 2 679207, 5784877, 5229937, 4857420, 35135520, 1164718, 4086244 #### [facility] [address] [place] [address] Chloride [Moles/Vol] 106 mmol/L Normal 101-111 [facility] Comment on above: Performed By: #### 2 966570, 9334110, 7404649, 8413024, 31932856, 7254502, 4792249 #### [facility] [address] [place] [address] CO2 [Moles/Vol] 31 mmol/L Normal 21-31 [facility] Comment on above: Performed By: #### 2 649407, 4663894, 6436150, 1297384, 71294276, 4110837, 2444732 #### [facility] [address] [place] [address] Glucose [Mass/Vol] 108 mg/dL Normal 55-199 [facility] Comment on above: Result Comment: If t his glucose result represents a fasting glucose, interpretation should refer to the following reference range: 55-99 mg/dL Performed By: #### 2 602704, 3699793, 0643878, 6149135, 99178846, 5624602, 9697792 #### [facility] [address] [place] [address] Potassium [Moles/Vol] 3.3 mmol/L Low 3.5-5.3 [facility] Comment on above: Performed By: #### 2 064977, 9324148, 3315759, 6543771, 16928265, 3443034, 7965975 #### [facility] [address] [place] [address] Sodium [Moles/Vol] 141 mmol/L Normal 135-145 [facility] Comment on above: Performed By: #### 2 534433, 2390086, 4239890, 5667029, 29748689, 8268645, 4872410 #### [facility] [address] [place] [address] CBC w/ Auto Diffon 2 Erythrocyte distribution width (RBC) [Ratio] 13.6 % Normal 10.9-14.2 [facility] Comment on above: Performed By: #### 2 141382, 5082931, 0968827, 2034848, 19300733, 2036267, 8617849 #### [facility] [address] [place] [address] Hematocrit (Bld) [Volume fraction] 35.6 % Normal 34.0-46.0 [facility] Comment on above: Performed By: #### 2 238662, 5286813, 0823356, 6186326, 40922099, 1755231, 9946192 #### [facility] [address] [place] [address] Hemoglobin (Bld) [Mass/Vol] 12.5 g/dL Normal 12.0-16.0 [facility] Comment on above: Performed By: #### 2 485178, 7369878, 8635201, 9668818, 68480258, 2797924, 7079447 #### [facility] [address] [place] [address] MCH (RBC) [Entitic mass] 28.7 pg Normal 27.0-34.0 [facility] Comment on above: Performed By: #### 2 516283, 8425830, 4494549, 8801043, 03107434, 4358653, 4428735 #### [facility] [address] [place] [address] MCHC (RBC) [Mass/Vol] 35.1 g/dL Normal 31.4-36.0 [facility] Comment on above: Performed By: #### 2 911276, 6512255, 4489775, 7410837, 15380188, 1168406, 0655191 #### [facility] [address] [place] [address] MCV (RBC) [Entitic vol] 81.8 fL Normal 80.0-100.0 [facility] Comment on above: Performed By: #### 2 843180, 8775939, 8116711, 3173375, 55385634, 2729269, 6019886 #### [facility] [address] [place] [address] Platelet mean volume (Bld) [Entitic vol] 7.6 fL Normal 6.4-10.8 [facility] Comment on above: Performed By: #### 2 937831, 3551145, 8506536, 5966354, 29277869, 1139268, 6841204 #### [facility] [address] [place] [address] Platelets (Bld) [#/Vol] 262.0 E9/L Normal 150.0-500.0 [facility] Comment on above: Performed By: #### 2 192943, 2294407, 0926997, 9117030, 42780062, 1271254, 1969193 #### [facility] [address] [place] [address] RBC (Bld) [#/Vol] 4.4 E12/L Normal 4.3-5.9 [facility] Comment on above: Performed By: #### 2 852747, 1665445, 5066473, 4500964, 25848910, 8032691, 4800658 #### [facility] [address] [place] [address] WBC corrected for nucl RBC Auto (Bld) [#/Vol] 8.9 E9/L Normal 4.0-11.0 [facility] Comment on above: Performed By: #### 2 994600, 1561480, 8513184, 4196508, 00325089, 8447718, 9486829 #### [facility] [address] [place] [address] CHEMISTRYOrdered By: SYSTEM SYSTEM on 07-12-2022 Albumin [...] rate/Area] mL/min/1.73 m2 Normal >=59mL/min/1 .73 m2 [facility] Chem S GFR/1.73 sq M.predicted among non-blacks [...] 141 mmol/L Normal 135 - 145 mmol/L [facility] Remisol Troponin I.cardiac [Mass/Vol] pg/mL Low 10.10 - 27.10 pg/mL [facility] Remisol Urea nitrogen [Mass/Vol] 9 mg/dL Normal 5 - 21 mg/d L [facility] Remisol Urea nitrogen/Creatinine [Mass ratio] 13 mg/mg Normal 10 - 20 [facility] Remisol Consent for Treatmenton 06-25 Consent for Treatment [id number] 21 [id number] Normal [facility] Discharge Instructionson Discharge Instructions [id number] 211 [id number]#[id number]:127 Normal [facility] ED Clinical Summaryon 2021 ED Clinical Summary [place] [id number] ED Clinical Summary Person Information Name: ROQUE PIERSON [facility] Age: 22 Years : 2000 Sex: Female Language: Argentine PCP: Ambrose Urbano MD Marital Status: Single [...] 07/12/2022 05:07:15 07/12/2022 05:07:15 07/12/2022 05:07:15 ADDRESS: [address] [place] [address] [id number] PHYS DOC NOTES: MEDICAL INFORMATION: Prescriptions Given: [...] PATIENT EDUCATION INFORMATION: Instructions: Abdominal Pain, Adult, Grda-xk-Ylkr Follow up: With: Address: When: Ambrose Urbano [address] [place] [address], [facility] [place] [phone] Business (1) In 3 days 07/15/2022 Comments: [...] worsening symptoms. DIAGNOSIS: Epigastric abdominal pain Normal [facility] ED Note-Physicianon 07-12-20 ED Note-Physician Basic Information Time Seen: Sissy Shah DO 07/12/2022 03:40 Chief Complaint Pt. 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 History of Present Illness Patient is a [...] PRN Fol (more content not included)... Normal [facility] Comment on above: Result Comment: Elec tronically Signed By: Sissy Shah DO\.basil\Date and Time Signed: 07/12/22 04:48 EST ED [...] these instructions at home: Medicines ? Take bzst-iek-dfltztr and prescription medicines only as told by [...] belly pain for any changes. ? Take zfty-kul-bptzqjz and prescription medicines only as told by [...] Document Reviewed: 12/20/2019 Elsevier Patient Education ? 2019 [employer] Normal [facility] ED Patient Summaryon 11-18-2 022 ED Patient Summary [address] [id number] Patient Discharge Instructions Person Information Name: ROQUE PIERSON Age: 22 Years Arrival Date: 07/12/2022 03:36:47 Discharge Diagnosis: Epigastric abdominal pain Primary Care Physician: Ambrose Urbano MD Provider Information Primary Provider: Sissy Shah DO Advanced Drip Molder:None The exam and treatment you received in the Emergency Department were for an urgent problem and are not intended as complete care. It is important that you follow up with a doctor, nurse practitioner, or physician?s diagnostic assistant for ongoing care. If your symptoms [...] Follow-up Instructions: With: Address: When: Ambrose Urbano [address] [place] [address], [facility] [place] [address] Business (1) In 3 days [...] provider. Patient Education Materials: Abdominal Pain, Adult, Rorh-kh-Nzwe A MESSAGE TO ALL PATIENTS REGARDING OPIOIDS PRESCRIPTION OPIOIDS: WHAT YOU NEED TO KNOW Prescription opioids can be used to help relieve flmvzufj-pe-bsbygo pain and are often prescribed following a [...] toilet, fol (more content not included)... Normal [facility] HEMATOLOGYOrdered By: SYSTEM SYSTEM on 07-12-2022 [...] 7.6 fL Normal 6.4 - 10.8 fL [facility] HemeAutoSS Platelets (Bld) [#/Vol] 262.0 E9/L Normal 150. 0 - 500.0 E9/L [facility] HemeAutoSS RBC (Bld) [#/Vol] 4.4 E12/L Normal 4.3 - 5.9 E12/L [facility] HemeAutoSS WBC corrected for nucl RBC Auto (Bld) [#/Vol] 8.9 E9/L Normal 4.0 - 11.0 E9/L [facility] HemeAutoSS Hep Func Panelon 07-12-2022 Bilirubin.indirect [Mass or moles/Vol] UTC Abnormal 0.1-0.9 [facility] Comment on above: Result Comment: Resu lt verified by Discern Rule. Performed result UTC (Unable to Calculate) was sent as an Alpha code due the inability to calculate a valid numeric value. Performed By: #### 2 766590, 8623570, 2856485, 1333796, 22386643, 7931322, 2872342 #### [facility] [address] [place] [address] Albumin [Mass/Vol] 4.0 g/dL Normal 3.3-5.0 [facility] Comment on above: Performed By: #### 2 451841, 1298061, 0170982, 3949937, 75251327, 0641425, 0764044 #### [facility] [address] [place] [address] Albumin/Globulin (S) [Mass conc ratio] 1.3 Normal 1.1-2.2 [facility] Comment on above: Performed By: #### 2 179544, 5524598, 6906183, 2360540, 51680847, 9647663, 0272216 #### [facility] [address] [place] [address] ALP [Catalytic activity/Vol] 59 Int._Unit/L Normal 21-98 [facility] Comment on above: Performed By: #### 2 357101, 7954986, 9404645, 2942284, 22969099, 0958845, 3934785 #### [facility] [address] [place] [address] ALT No additional P-5'-P [Catalytic activity/Vol] 17 Int._Unit/L Normal 6-46 [facility] Comment on above: Performed By: #### 2 502308, 5188383, 0443343, 0869188, 87936255, 6688955, 4486594 #### [facility] [address] [place] [address] AST [Catalytic activity/Vol] 17 Int._Unit/L Normal 5-43 [facility] Comment on above: Performed By: #### 2 937175, 9623715, 3563892, 6634280, 21074408, 1479344, 7414723 #### [facility] [address] [place] [address] Bilirubin [Mass/Vol] 0.3 mg/dL Normal 0.0-1.1 [facility] Comment on above: Performed By: #### 2 171188, 4359524, 5622349, 6403886, 74584512, 1670566, 7096984 #### [facility] [address] [place] [address] Bilirubin.direct [Mass/Vol] mg/dL Normal 0.1-0.4 [facility] Comment on above: Performed By: #### 2 264990, 5277980, 6292602, 4457033, 29050657, 3376477, 0781017 #### [facility] [address] [place] [address] Globulin (S) [Mass/Vol] 3.1 g/dL Normal 1.4-4.0 [facility] Comment on above: Performed By: #### 2 736764, 1260399, 5445551, 0241610, 64592497, 9826353, 3374492 #### [facility] [address] [place] [address] Protein [Mass/Vol] 7.1 g/dL Normal 6.0-7.8 [facility] Comment on above: Performed By: #### 2 247932, 9199813, 1410712, 3348735, 63873049, 3073366, 0681421 #### [facility] [address] [place] [address] Lipase Levelon 07-12-2022 Lipase [Catalytic activity/Vol] 35 U/L Normal 13-58 [facility] Comment on above: Performed By: #### 2 903447, 6216861, 9391894, 1555848, 96663894, 6786476, 4773450 #### [facility] [address] [place] [address] SEROLOGYOrdered By: Mignon Gupta on 07-12-2022 Beta hCG Ql Negative (07/12/22 4:02 AM) Normal [facility] [place] Sero Troponin 0 Hr.on 07-12-2022 Troponin I.cardiac [Mass/Vol] ng/mL Low 10.10-27.10 [facility] Comment on above: Result Comment: The 95% CI (Confidence Interval) PPV (Positive Predictive Value) for myocardial infarction in females is 38 pg/mL, in males 51 pg/mL. The results should be used in conjunction with clinical conditions of myocardial infarction. (Access High Sensitivity Troponin I Instructions For Use, [facility] [place], March 2018) Performed By: #### 2 380286, 5595431, 1307806, 5954131, 84860375, 1342318, 6858650 #### [facility] [address] [place] [address] XR Chest Single Viewon 07-12 XR Chest [...] M.D. Transcribed by: KG Technologist: [place] Normal [facility] eGFRon 07-12-2022 GFR/1.73 sq M.predicted among blacks MDRD (S/P/Bld) [Vol rate/Area] mL/min/{1.73_m2} Normal >=59 [facility] Comment on above: Order Comment: Order added by Discern Expert. Result Comment: eGFR is race adjusted. AA=. Performed By: #### 2 172958, 7946922, 8246673, 7127721, 97696431, 9114720, 4323814 #### [facility] [address] [place] [address] GFR/1.73 sq M.predicted among non-blacks MDRD (S/P/Bld) [Vol rate/Area] mL/min/{1.73_m2} Normal >=59 [facility] Comment on above: Order Comment: Order added by Discern Expert. Result Comment: Sales Facilitator emil kidney disease could be indicated at eGFR's of less than 60 mL/min/1.73m2. Kidney failure is indicated at less than 15 mL/min/1.73m2. Performed By: #### [id number] #### [facility] [address] [place] [address] CBC with Auto Differentialon 04-18-2022 Absolute Eos # 0.20 [facility] Absolute Lymph # 1.60 [facility] Absolute Laurel # 0.60 [facility] Basophils (Bld) [#/Vol] 0.00 10*3/uL [facility] Basophils/100 WBC (Bld) 0 % 0 - 2 % [facility] Differential Type YES [facility] Eosinophils/100 WBC (Bld) 2 % 0 - 5 % [facility] Hematocrit (Bld) [Volume fraction] 38.2 % 36 - 46 % [facility] Hemoglobin (Bld) [Mass/Vol] 12.7 g/dL 12 - 16 g/dL [facility] Interpretation and review of laboratory results Abnormal [facility] Lymphocytes/100 WBC (Bld) 16 % 15 - 40 % [facility] MCH (RBC) [Entitic mass] 28.1 pg 26 - 34 pg [facility] MCHC (RBC) [Mass/Vol] 33.2 g/dL 31 - 37 g/dL [facility] MCV (RBC) [Entitic vol] 84.6 fL 80 - 100 fL [facility] Monocytes/100 WBC (Bld) 6 % 4 - 8 % [facility] Platelet distribution width (Bld) [Ratio] 13.3 % 12.1 - 15.2 % [facility] Platelets (Bld) [#/Vol] 294 10*3/uL [facility] RBC (Bld) [#/Vol] 4.52 10*6/uL 4 - 5.2 m/uL [facility] Segmented neutrophils/100 WBC (Bld) 76 % High 47 - 75 % [facility] Segs Absolute 7.60 High [facility] WBC (Bld) [#/Vol] 10.0 10*3/uL [facility] CMPon 04-18-2022 Albumin [Mass/Vol] 4.4 g/dL 3.5 - 5.2 g/dL [facility] ALP (Bld) [Catalytic activity/Vol] 93 U/L 35 - 104 U/L [facility] ALT [Catalytic activity/Vol] 17 U/L 5 - 33 U/L [facility] Anion gap [Moles/Vol] 8 mmol/L Low 9 - 17 mmol/L [facility] AST [Catalytic activity/Vol] 17 U/L NINF - 32 U/L [facility] Bilirubin [Mass/Vol] 0.20 mg/dL Low 0.3 - 1 .2 mg/dL [facility] Calcium [Mass/Vol] 9.5 mg/dL 8.6 - 10. 4 mg/dL [facility] Chloride [Moles/Vol] 106 mmol/L 98 - 10 7 mmol/L [facility] CO2 [Moles/Vol] 26 mmol/L 20 - 31 mmol/L [facility] Creatinine [Mass/Vol] 0.66 mg/dL 0.5 - 0.9 mg/dL [facility] Free PSA/Total PSA [Mass fraction] 6.9 g/dL 6.4 - 8.3 g/dL [facility] GFR >60 60 - PI NF mL/min [facility] GFR Non- >60 60 - PINF mL/min [facility] GFR/1.73 sq M.predicted MDRD (S/P/Bld) [Vol rate/Area] [facility] Comment on above: Average GFR for 20-2 9 years old: 116 mL/min/1.73sq m Chronic Kidney Disease: <60 mL/min/1.73sq m Kidney failure: <15 mL/min/1.73sq m eGFR calculated using average adult body mass. Additional eGFR calculator available at: http://www.[employer]/multiple_crcl_2012.htm Glucose [Mass/Vol] 108 mg/dL High 70 - 99 mg/dL [facility] Interpretation and review of laboratory results Abnormal [facility] Potassium [Moles/Vol] 3.6 mmol/L Low 3.7 - 5.3 mmol/L [facility] Sodium [Moles/Vol] 140 mmol/L 135 - 144 mmol/L [facility] Urea nitrogen (BldV) [Mass/Vol] 5 mg/dL Low 6 - 20 mg/dL [facility] Urea nitrogen/Creatinine (Bld) [Mass ratio] 8 Low 9 - 20 [facility] HCG Qualitative, Serumon hCG Qual Negative NEGATIVE [facility] Comment on above: Specimens with hCG l evels near the threshold of the test (25 mIU/mL) may give a negative or indeterminate result. In such cases, another test should be performed with a new specimen in 48-72 hours. If early is suspected clinically in this setting, correlation with quantitative serum b-hCG level is suggested. [employer] has confirmed the use of plasma for this test. This has not been cleared or approved by the U.S. Food and Drug Administration. The FDA has determined that such clearance is not necessary. [facility] Microscopic Urinalysison - [facility] Epithelial Cells UA 0 TO 2 /HPF [facility] RBC, UA 2 TO 5 [facility] WBC, UA NONE SEEN 0 /HPF [facility] Urinalysison 04-18-2022 Bilirubin Urine Negative NEGATIVE [facility] Color, UA Yellow Yellow [facility] Glucose, Ur Negative NEGATIVE [facility] Interpretation and review of laboratory results Abnormal [facility] Ketones Ql (U) Negative NEGATIVE [facility] Leukocyte esterase Test strip Ql (U) Negative NEGATIVE [facility] Nitrite, Urine Negative NEGATIVE [facility] pH, UA 8.0 5 - 8 [facility] Protein, UA Negative NEGATIVE [facility] Specific [place], UA 1.015 1.005 - 1.03 [facility] Turbidity UA Clear Clear [facility] Urinalysis Comments [facility] Urine Hgb 2+ Abnormal NEGATIVE [facility] Urobilinogen, Urine Normal Normal [facility] PAP ACOG PANEL 2: 21 to 29on 04-13-2022 . . Normal [facility] Comment on above: Performed By: #### [id number] #### [facility] [address] [place] [address] Dr. Tasha Whalen Age Gdln ACOG Testing Comment Normal [facility] Comment on above: Result Comment: <21 or >65 or no age provided Performed By: #### [id number] #### [facility] [address] [address] [address] Tasha Whalen DIAGNOSIS: Comment [facility] Comment on above: Result Comment: NEGA TIVE FOR INTRAEPITHELIAL LESION OR MALIGNANCY. Performed By: #### [id number] #### [facility] [address] [address] [address] Tasha Whalen Methodology: Comment [facility] Comment on above: Result Comment: This liquid based ThinPrep(R) pap test was screened with the use of an image guided system. Performed By: #### [id number] #### [facility] [address] [place] [address] Dr. Tasha Whalen Note: Comment Normal [facility] Comment on above: Result Comment: The Pap smear is a screening test designed to aid in the detection of premalignant and malignant conditions of the uterine cervix. It is not a diagnostic procedure and should not be used as the sole means of detecting cervical cancer. Both false-positive and false-negative reports do occur. . Performed By: #### [id number] #### [facility] [address] [place] [address] Dr. Tasha Whalen Performed by: Comment Normal [facility] Comment on above: Result Comment: Nancy Wooten Sheriffs Detective (ASCP) Performed By: #### [id number] #### [facility] [address] [place] [address] Dr. Tasha Whalen Specimen adequacy: Comment Normal [facility] Comment on above: Result Comment: Sati sfactory for evaluation. Endocervical and/or squamous metaplastic cells (endocervical component) are present. Performed By: #### [id number] #### [facility] [address] [place] [address] Dr. Tasha Whalen CHLAMYDIA/GONOCOCCUS CATRINA (SW AB/URINE/PAPon 04-12-2022 Chlamydia trachomatis, CATRINA Negative Normal Negative [facility] Comment on above: Performed By: #### C T/NGNA #### [facility] [address] [place] [address] Dr. Tasha Whalen Neisseria gonorrhoeae, CATRINA Negative Normal Negative [facility] Comment on above: Performed By: #### C T/NGNA #### [facility] [address] [place] [address] Dr. Tasha Whalen VAGINITIS/VAGINOSIS DNA PROB [place] 04-11-2022 Dylan species Negative Normal Negative [facility] Comment on above: Performed By: #### V AGINT #### [facility] [address] [place] [address] Dr. Tasha Whalen Gardnerella vaginalis Negative Normal Negative [facility] Comment on above: Performed By: #### V AGINT #### [facility] [address] [place] [address] Dr. Tasha Whalen Trichomonas vaginalis Negative Normal Negative [facility] Comment on above: Performed By: #### V AGINT #### [facility] [address] [place] [address] Dr. Tasha Whalen PREG QUANT HCGon 02-15-2022 HCG QUANT <1 Normal [facility] Comment on above: Performed By: #### P REGQNT #### [facility] [address] [place] [address] Dr. Tasha Whalen HCG RANGE SEE BELOW Normal [facility] Comment on above: Result Comment: 5-50 0-1 WEEK 40-300 1-2 WEEKS 100-1,000 2-3 WEEKS 500-6,000 3-4 WEEKS 5,000-200,000 1-2 MONTHS 10,000-100,000 2-3 MONTHS 3,000-50,000 2ND TRIMESTER 1,000-50,000 3RD TRIMESTER Performed By: #### P REGQNT #### [facility] [address] [place] [address] Dr. Tasha Whalen Vital Signs Date Time Vital Sign Value Performing Clinician Facility 09-22-2024 11:11-0500 Body mass index (BMI) [Ratio] 27.72 kg/m2 Jo DENNIS Work Phone: [facility] 09-22-2024 11:11-0500 Body weight 80.29 kg Jo DENNIS Work Phone: [facility] 09-22-2024 11:11-0500 Diastolic blood pressure 62 mm[Hg] Jo DENNIS Work Phone: [facility] 09-22-2024 11:11-0500 Systolic blood pressure 120 mm[Hg] Jo DENNIS Work Phone: [facility] 09-15-2024 11:24-0500 Body mass index (BMI) [Ratio] 27.78 kg/m2 Julius Keira DO Work Phone: [facility] 09-15-2024 11:24-0500 Body weight 80.47 kg Julius Keira DO Work Phone: [facility] 09-15-2024 11:24-0500 Diastolic blood pressure 64 mm[Hg] Julius Keira DO Work Phone: [facility] 09-15-2024 11:24-0500 Systolic blood pressure 104 mm[Hg] Julius Keira DO Work Phone: [facility] 09-07-2024 10:49-0500 Body mass index (BMI) [Ratio] 27.88 kg/m2 Jo DENNIS Work Phone: [facility] 09-07-2024 10:49-0500 Body weight 80.74 kg Jo DENNIS Work Phone: [facility] 09-07-2024 10:49-0500 Diastolic blood pressure 62 mm[Hg] Jo DENNIS Work Phone: [facility] 09-07-2024 10:49-0500 Systolic blood pressure 108 mm[Hg] Jo DENNIS Work Phone: [facility] 09-02-2024 12:00-0500 Hourly Rounding [facility] 09-02-2024 12:00-0500 Promise to Return [facility] 09-02-2024 11:44-0500 Hourly Rounding [facility] 09-02-2024 11:44-0500 Promise to Return [facility] 09-02-2024 11:41-0500 Heart rate 76 /min [facility] 09-02-2024 11:41-0500 SaO2% (BldA) [Mass fraction] 98 % [facility] 09-02-2024 11:41-0500 Body temperature 97.34 [degF] [facility] 09-02-2024 11:40-0500 Blood Pressure Location [facility] 09-02-2024 11:40-0500 Diastolic blood pressure 60 mm[Hg] [facility] 09-02-2024 11:40-0500 Mean blood pressure 72 mm[Hg] [facility] 09-02-2024 11:40-0500 Systolic blood pressure 96 mm[Hg] [facility] 09-02-2024 10:28-0500 Hourly Rounding [facility] 09-02-2024 10:28-0500 Promise to Return [facility] 09-02-2024 08:20-0500 Blood Pressure Location [facility] 09-02-2024 08:20-0500 Body temperature 97.7 [degF] [facility] 09-02-2024 08:20-0500 Diastolic blood pressure 64 mm[Hg] [facility] 09-02-2024 08:20-0500 Heart rate 60 /min [facility] 09-02-2024 08:20-0500 Mean blood pressure 76 mm[Hg] [facility] 09-02-2024 08:20-0500 Respiratory rate 16 /min [facility] 09-02-2024 08:20-0500 SaO2% (BldA) [Mass fraction] 97 % [facility] 09-02-2024 08:20-0500 Systolic blood pressure 99 mm[Hg] [facility] 09-02-2024 07:40-0500 SaO2% (BldA) [Mass fraction] 97 % [facility] 09-02-2024 04:00-0500 Diastolic blood pressure 69 mm[Hg] [facility] 09-02-2024 04:00-0500 Heart rate 84 /min [facility] 09-02-2024 04:00-0500 Mean blood pressure 81 mm[Hg] [facility] 09-02-2024 04:00-0500 Respiratory rate 18 /min [facility] 09-02-2024 04:00-0500 Systolic blood pressure 105 mm[Hg] [facility] 09-02-2024 00:00-0500 Body temperature 97.34 [degF] [facility] 09-02-2024 00:00-0500 Mean blood pressure 66 mm[Hg] [facility] 09-02-2024 00:00-0500 Respiratory rate 16 /min [facility] 09-01-2024 15:45-0500 Body temperature 97.52 [degF] [facility] 09-01-2024 15:45-0500 Mean blood pressure 78 mm[Hg] [facility] 09-01-2024 14:00-0500 Respiratory rate 35 /min [facility] 09-01-2024 04:58-0500 Heart rate 63 /min [facility] 09-01-2024 04:23-0500 Respiratory rate 22 /min [facility] 09-01-2024 03:00-0500 Respiratory rate 17 /min [facility] 09-01-2024 00:32-0500 Heart rate 134 /min [facility] 08-31-2024 10:58-0500 Body mass index (BMI) [Ratio] 27.63 kg/m2 [employer] Work Phone: [facility] 08-31-2024 10:58-0500 Body weight 80.02 kg [employer] Work Phone: [facility] 08-31-2024 10:58-0500 Diastolic blood pressure 64 mm[Hg] Julius Keira DO Work Phone: [facility] 08-31-2024 10:58-0500 Systolic blood pressure 110 mm[Hg] Julius Keira DO Work Phone: [facility] 08-11-2024 10:54-0500 Body mass index (BMI) [Ratio] 27.41 kg/m2 Jo Justin PA Work Phone: [facility] 08-11-2024 10:54-0500 Body weight 79.38 kg Jo Justin PA Work Phone: [facility] 08-11-2024 10:54-0500 Diastolic blood pressure 68 mm[Hg] Jo Dennis PA Work Phone: [facility] 08-11-2024 10:54-0500 Systolic blood pressure 110 mm[Hg] Jo Anderson PA Work Phone: [facility] 07-28-2024 12:04-0500 Body mass index (BMI) [Ratio] 27.69 kg/m2 Julius Keira DO Work Phone: [facility] 07-28-2024 12:04-0500 Body weight 80.2 kg Julius Keira DO Work Phone: [facility] 07-28-2024 12:04-0500 Diastolic blood pressure 62 mm[Hg] Julius Keira DO Work Phone: [facility] 07-28-2024 12:04-0500 Systolic blood pressure 108 mm[Hg] Julius Keira DO Work Phone: [facility] 07-25-2024 23:48-0500 Diastolic blood pressure 56 mm[Hg] Sissy Rooten [facility] 07-25-2024 23:48-0500 Heart rate 77 /min Jenan kken [facility] 07-25-2024 23:48-0500 Mean blood pressure 71 mm[Hg] Kaylinn Dokken [facility] 07-25-2024 23:48-0500 SaO2% (BldA) [Mass fraction] 99 % Kaylinn Dokken [facility] 07-25-2024 23:48-0500 Systolic blood pressure 102 mm[Hg] Kaylinn Dokken [facility] 07-25-2024 23:14-0500 Diastolic blood pressure 59 mm[Hg] Kaylinn Dokken [facility] 07-25-2024 23:14-0500 Heart rate 90 /min Kaylinn Dokken [facility] 07-25-2024 23:14-0500 Mean blood pressure 77 mm[Hg] Kaylinn Dokken [facility] 07-25-2024 23:14-0500 Respiratory rate 17 /min Kaylinn Dokken [facility] 07-25-2024 23:14-0500 SaO2% (BldA) [Mass fraction] 96 % Kaylinn Dokken [facility] 07-25-2024 23:14-0500 Systolic blood pressure 112 mm[Hg] Kaylinn Dokken [facility] 07-25-2024 22:13-0500 Body temperature 97.88 [degF] Kaylinn Dokken [facility] 07-25-2024 22:13-0500 Diastolic blood pressure 66 mm[Hg] Kaylinn Dokken [facility] 07-25-2024 22:13-0500 Heart rate 84 /min Sissy Shah [facility] 07-25-2024 22:13-0500 Respiratory rate 16 /min Sissy Shah [facility] 07-25-2024 22:13-0500 SaO2% (BldA) [Mass fraction] 98 % Sissy Shah [facility] 07-25-2024 22:13-0500 Systolic blood pressure 107 mm[Hg] Sissy Shah [facility] 07-12-2024 11:10-0500 Body mass index (BMI) [Ratio] 27.57 kg/m2 Jo Anderson PA Work Phone: [facility] 07-12-2024 11:10-0500 Body weight 79.83 kg Jo Anderson PA Work Phone: [facility] 07-12-2024 11:10-0500 Diastolic blood pressure 58 mm[Hg] Jo Anderson PA Work Phone: [facility] 07-12-2024 11:10-0500 Systolic blood pressure 110 mm[Hg] Jo Anderson PA Work Phone: [facility] 06-28-2024 11:27-0500 Body mass index (BMI) [Ratio] 27.06 kg/m2 Julius Keira DO Work Phone: [facility] 06-28-2024 11:27-0500 Body weight 78.36 kg Julius Keira DO Work Phone: [facility] 06-28-2024 11:27-0500 Diastolic blood pressure 68 mm[Hg] Julius Keira DO Work Phone: [facility] 06-28-2024 11:27-0500 Systolic blood pressure 100 mm[Hg] Julius Keira DO Work Phone: [facility] 05-27-2024 10:09-0400 Body mass index (BMI) [Ratio] 26 kg/m2 Jo Dennis PA Work Phone: [facility] 05-27-2024 10:09-0400 Body weight 75.3 kg Jo Justin PA Work Phone: [facility] 05-27-2024 10:09-0400 Diastolic blood pressure 64 mm[Hg] Jo Dennis PA Work Phone: [facility] 05-27-2024 10:09-0400 Systolic blood pressure 110 mm[Hg] Jo Dennis PA Work Phone: [facility] 04-29-2024 11:56-0400 Body mass index (BMI) [Ratio] 25.22 kg/m2 Jo Justin PA Work Phone: [facility] 04-29-2024 11:56-0400 Body weight 73.03 kg Jo Dennis PA Work Phone: [facility] 04-29-2024 11:56-0400 Diastolic blood pressure 72 mm[Hg] Jo Dennis PA Work Phone: [facility] 04-29-2024 11:56-0400 Systolic blood pressure 110 mm[Hg] Jo Dennis PA Work Phone: [facility] 04-23-2024 12:00-0400 Diastolic blood pressure 58 mm[Hg] [facility] 04-23-2024 12:00-0400 Heart rate 62 /min [facility] 04-23-2024 12:00-0400 Mean blood pressure 72 mm[Hg] [facility] 04-23-2024 12:00-0400 SaO2% (BldA) [Mass fraction] 99 % [facility] 04-23-2024 12:00-0400 Systolic blood pressure 100 mm[Hg] [facility] 04-23-2024 11:30-0400 Diastolic blood pressure 54 mm[Hg] [facility] 04-23-2024 11:30-0400 Heart rate 60 /min [facility] 04-23-2024 11:30-0400 Mean blood pressure 68 mm[Hg] [facility] 04-23-2024 11:30-0400 Respiratory rate 18 /min [facility] 04-23-2024 11:30-0400 SaO2% (BldA) [Mass fraction] 98 % [facility] 04-23-2024 11:30-0400 Systolic blood pressure 96 mm[Hg] [facility] 04-23-2024 11:00-0400 Diastolic blood pressure 56 mm[Hg] [facility] 04-23-2024 11:00-0400 Heart rate 56 /min [facility] 04-23-2024 11:00-0400 Mean blood pressure 70 mm[Hg] [facility] 04-23-2024 11:00-0400 Systolic blood pressure 97 mm[Hg] [facility] 04-23-2024 09:42-0400 Body temperature 98.24 [degF] [facility] 04-23-2024 09:42-0400 Heart rate 65 /min [facility] 09-08-2023 11:05-0500 Body temperature 98.78 [degF] Fercho Jaime [facility] 09-08-2023 11:05-0500 Diastolic blood pressure 82 mm[Hg] Fercho Jaime [facility] 09-08-2023 11:05-0500 Heart rate 95 /min Fercho Jaime [facility] 09-08-2023 11:05-0500 Respiratory rate 16 /min Fercho Jaime [facility] 09-08-2023 11:05-0500 SaO2% (BldA) [Mass fraction] 98 % Fercho Addison [facility] 09-08-2023 11:05-0500 Systolic blood pressure 131 mm[Hg] Fercho Addison [facility] 06-05-2023 18:36-0400 Diastolic blood pressure 58 mm[Hg] Fercho Addison [facility] 06-05-2023 18:36-0400 Heart rate 90 /min Fercho Addison [facility] 06-05-2023 18:36-0400 Mean blood pressure 73 mm[Hg] Fercho Addison [facility] 06-05-2023 18:36-0400 Respiratory rate 16 /min Fercho Addison [facility] 06-05-2023 18:36-0400 SaO2% (BldA) [Mass fraction] 99 % Fercho Addison [facility] 06-05-2023 18:36-0400 Systolic blood pressure 104 mm[Hg] Fercho Addison [facility] 06-05-2023 18:23-0400 Diastolic blood pressure 52 mm[Hg] Fercho Addison [facility] 06-05-2023 18:23-0400 Heart rate 82 /min Fercho Addison [facility] 06-05-2023 18:23-0400 Mean blood pressure 66 mm[Hg] Fercho Addison [facility] 06-05-2023 18:23-0400 Respiratory rate 14 /min Fercho Addison [facility] 06-05-2023 18:23-0400 SaO2% (BldA) [Mass fraction] 98 % Fercho Addison [facility] 06-05-2023 18:23-0400 Systolic blood pressure 94 mm[Hg] Fercho Jaime [facility] 06-05-2023 17:31-0400 Diastolic blood pressure 60 mm[Hg] Fercho Jaime [facility] 06-05-2023 17:31-0400 Heart rate 89 /min Fercho Jaime [facility] 06-05-2023 17:31-0400 Mean blood pressure 71 mm[Hg] Fercho Jaime [facility] 06-05-2023 17:31-0400 Respiratory rate 16 /min Fercho Jaime [facility] 06-05-2023 17:31-0400 SaO2% (BldA) [Mass fraction] 98 % Fercho Jaime [facility] 06-05-2023 17:31-0400 Systolic blood pressure 93 mm[Hg] Fercho Jaime [facility] 06-05-2023 15:48-0400 Body temperature 98.42 [degF] Fercho Jaime [facility] 06-05-2023 15:48-0400 Heart rate 97 /min Fercho Jaime [facility] 12-07-2022 03:06-0400 Body weight 72.1224 kg JO ANDERSON . [facility] Comment on above: Performed By: #### AFPMAT #### [facility] [address] [place] [address] Dr. Tasha Whalen 11-25-2022 22:27-0400 Hourly Rounding Shawn Wilson [facility] Comment on above: Result Comment: pt. discharged off unit, ambulatory; RN offers to assist to ER entrance; pt. bostonies 11-25-2022 22:20-0400 Hourly Rounding Shawn Wilson [facility] Comment on above: Result Comment: discharge papers given, education provided about belly band, follow up with primary provider in 2-3 days, and taking Tylenol for pain management as needed; questions answered; papers signed; pt. to get up and get dressed, no grimace or physical symptoms of pain noted in patient while moving 11-25-2022 22:10-0400 Hourly Rounding Shawn Wilson [facility] Comment on above: Result Comment: RN checks in on patient following medication administration; pt. verbalizes that medication helped and belly band is helping; RN answers question about UA results with patient; no physical signs of pain noted in pt. at this time, no grimace; RN to d/c pt. per physician order 11-25-2022 22:10-0400 Promise to Return Shawn Wilson [facility] 11-25-2022 21:24-0400 Promise to Return Shawn Wilson [facility] 11-25-2022 20:47-0400 Blood Pressure Location [employer] [facility] 11-25-2022 20:47-0400 Body temperature 98.24 [degF] Shawn Steve [facility] 11-25-2022 20:47-0400 Diastolic blood pressure 56 mm[Hg] Shawn Steve [facility] 11-25-2022 20:47-0400 Heart rate 74 /min [employer] [facility] 11-25-2022 20:47-0400 Mean blood pressure 73 mm[Hg] [employer] [facility] 11-25-2022 20:47-0400 Promise to Return [employer] [facility] 11-25-2022 20:47-0400 Respiratory rate 16 /min Shawn Wilson [facility] 11-25-2022 20:47-0400 Systolic blood pressure 108 mm[Hg] Shawn Wilson [facility] 11-25-2022 18:45-0400 Blood Pressure Location Shawn Wilson [facility] 11-25-2022 18:45-0400 Body temperature 97.52 [degF] Shawn Wilson [facility] 11-25-2022 18:45-0400 Diastolic blood pressure 59 mm[Hg] Shawn Wilson [facility] 11-25-2022 18:45-0400 Heart rate 79 /min Shawn Wilson [facility] 11-25-2022 18:45-0400 Mean blood pressure 76 mm[Hg] Shawn Wilson [facility] 11-25-2022 18:45-0400 Respiratory rate 18 /min Shawn Wilson [facility] 11-25-2022 18:45-0400 Systolic blood pressure 110 mm[Hg] Shawn Wilson [facility] 09-30-2022 08:59-0500 Body height 175.3 cm Morgan Falk DO Work Phone[facility] 09-30-2022 08:59-0500 Body mass index (BMI) [Ratio] 23.63 kg/m2 Morgan Falk DO Work [facility]: [facility] 09-30-2022 08:59-0500 Body temperature 98.1 [degF] Morgan Falk DO Work [facility] 09-30-2022 08:59-0500 Body weight 72.58 kg Morgan Falk DO Work Phone: [employer] [place] 09-30-2022 08:59-0500 Diastolic blood pressure 64 mm[Hg] Morgan Tejal DO Work Phone: [facility] [employer] 09-30-2022 08:59-0500 Heart rate 78 /min Morgan Falk DO Work Phone: [facility] [employer] 09-30-2022 08:59-0500 Respiratory rate 20 /min Morgan Falk DO Work Phone: [facility] [employer] 09-30-2022 08:59-0500 SaO2% (BldA) [Mass fraction] 98 % Morgan Falk DO Work Phone: [facility] [employer] 09-30-2022 08:59-0500 Systolic blood pressure 112 mm[Hg] Morgan Falk DO Work Phone: [facility] [employer] 09-26-2022 13:23-0500 Body height 172.7 cm Nguyen Edmonds MD Work Phone: [employer] [place] 09-26-2022 13:23-0500 Body mass index (BMI) [Ratio] 24.4 kg/m2 Nguyen Edmonds MD Work Phone: [employer] [place] 09-26-2022 13:23-0500 Body temperature 98.01 [degF] Nguyen Edmonds MD Work Phone: [employer] [place] 09-26-2022 13:23-0500 Body weight 72.8 kg Nguyen Edmonds MD Work Phone: [employer] [place] 09-26-2022 13:23-0500 Diastolic blood pressure 69 mm[Hg] Nguyen Edmonds MD Work Phone: [employer] [place] 09-26-2022 13:23-0500 Heart rate 82 /min Nguyen Edmonds MD Work Phone: [employer] [place] 09-26-2022 13:23-0500 Respiratory rate 18 /min Nguyen Edmonds MD Work Phone: [employer] [place] 09-26-2022 13:23-0500 SaO2% (BldA) [Mass fraction] 100 % Nguyen Edmonds MD Work Phone: [employer] [place] 09-26-2022 13:23-0500 Systolic blood pressure 111 mm[Hg] Nguyen Edmonds MD Work Phone: [employer] [place] 09-04-2022 20:05-0500 Body height 172.7 cm Lebron Guevara MD Work Phone: [employer] [place] 09-04-2022 20:05-0500 Body mass index (BMI) [Ratio] 24.89 kg/m2 Lebron Guevara MD Work Phone: [employer] [place] 09-04-2022 20:05-0500 Body temperature 99.9 [degF] Lebron Guevara MD Work Phone: [facility] [employer] 09-04-2022 20:05-0500 Body weight 74.25 kg Lebron Guevara MD Work Phone: [employer] [place] 09-04-2022 20:05-0500 Diastolic blood pressure 72 mm[Hg] Lebron Guevara MD Work Phone: [employer] [place] 09-04-2022 20:05-0500 Heart rate 74 /min Lebron Guevara MD Work Phone: [employer] [place] 09-04-2022 20:05-0500 Respiratory rate 18 /min Lebron Guevara MD Work Phone: [employer] [place] 09-04-2022 20:05-0500 SaO2% (BldA) [Mass fraction] 98 % Lebron Guevara MD Work Phone: [employer] [place] 09-04-2022 20:05-0500 Systolic blood pressure 111 mm[Hg] Lebron Guevara MD Work Phone: [employer] [place] 08-29-2022 01:32-[address] [facility] 08-29-2022 01:32-[address] [facility] 08-29-2022 00:48-[address] [facility] 08-29-2022 00:48-[address] [facility] 08-29-2022 00:17-0500 Diastolic blood pressure 51 mm[Hg] [facility] 08-29-2022 00:17-0500 Heart rate 72 /min [facility] 08-29-2022 00:17-0500 Mean blood pressure 69 mm[Hg] [facility] 08-29-2022 00:17-0500 Respiratory rate 16 /min [facility] 08-29-2022 00:17-0500 SaO2% (BldA) [Mass fraction] 99 % [facility] 08-29-2022 00:17-0500 Systolic blood pressure 105 mm[Hg] [facility] 08-28-2022 23:35-0500 Diastolic blood pressure 53 mm[Hg] [facility] 08-28-2022 23:35-0500 Heart rate 65 /min [facility] 08-28-2022 23:35-0500 Mean blood pressure 68 mm[Hg] [facility] 08-28-2022 23:35-0500 Respiratory rate 18 /min [facility] 08-28-2022 23:35-0500 SaO2% (BldA) [Mass fraction] 100 % [facility] 08-28-2022 23:35-0500 Systolic blood pressure 97 mm[Hg] [facility] 08-28-2022 23:30-[address] [facility] 08-28-2022 23:30-[address] [facility] 08-28-2022 22:45-0500 Diastolic blood pressure 55 mm[Hg] [facility] 08-28-2022 22:45-0500 Heart rate 62 /min [facility] 08-28-2022 22:45-0500 Mean blood pressure 69 mm[Hg] [facility] 08-28-2022 22:45-0500 Respiratory rate 20 /min [facility] 08-28-2022 22:45-0500 SaO2% (BldA) [Mass fraction] 93 % [facility] 08-28-2022 22:45-0500 Systolic blood pressure 98 mm[Hg] [facility] 08-28-2022 21:31-0500 Body temperature 97.88 [degF] [facility] 08-28-2022 21:31-0500 Heart rate 78 /min [facility] 08-26-2022 11:02-0500 Body temperature 98.6 [degF] Kei Moore [facility] 08-26-2022 11:02-0500 Diastolic blood pressure 70 mm[Hg] Kei Moore [facility] 08-26-2022 11:02-0500 Heart rate 66 /min Kei Moore [facility] 08-26-2022 11:02-0500 Respiratory rate 16 /min Kei Moore [facility] 08-26-2022 11:02-0500 SaO2% (BldA) [Mass fraction] 96 % Kei Moore [facility] 08-26-2022 11:02-0500 Systolic blood pressure 115 mm[Hg] Kei Moore [facility] 08-24-2022 01:01-0500 Body height 172.7 cm Andrea Mitchell MD Work Phone: [employer] 08-24-2022 01:01-0500 Body mass index (BMI) [Ratio] 25.51 kg/m2 Andrea Mitchell MD [facility] 08-24-2022 01:01-0500 Body temperature 98.1 [degF] Andrea Mitchell MD Work [facility] 08-24-2022 01:01-0500 Body weight 76.11 kg Andrea Mitchell MD Work Phone: [facility] 08-24-2022 01:01-0500 Diastolic blood pressure 74 mm[Hg] Andrea Mitchell MD Work Phone: [facility] [facility] 08-24-2022 01:01-0500 Heart rate 82 /min Andrea Mitchell MD Work [facility] 08-24-2022 01:01-0500 Respiratory rate 18 /min Andrea Mitchell MD Work Phone: [facility] [facility] 08-24-2022 01:01-0500 SaO2% (BldA) [Mass fraction] 99 % Andrea Mitchell MD Work Phone: [facility] 08-24-2022 01:01-0500 Systolic blood pressure 119 mm[Hg] Andrea Mitchell MD [facility] 08-10-2022 00:13-0500 Body mass index (BMI) [Ratio] 25.7 kg/m2 Lebron Guevara MD Work Phone: [facility] 08-10-2022 00:13-0500 Body temperature 97.59 [degF] Lebron Guevara MD Work Phone: [facility] 08-10-2022 00:13-0500 Body weight 76.66 kg Lebron Guevara MD Work Phone: [facility] 08-10-2022 00:13-0500 Diastolic blood pressure 70 mm[Hg] Lebron Guevara MD Work Phone: [facility] 08-10-2022 00:13-0500 Heart rate 97 /min Lebron Guevara MD Work Phone: [facility] [facility] 08-10-2022 00:13-0500 Respiratory rate 16 /min Lebron Guevara MD Work Phone: [facility] [facility] 08-10-2022 00:13-0500 SaO2% (BldA) [Mass fraction] 98 % Lebron Guevara MD Work Phone: [facility] 08-10-2022 00:13-0500 Systolic blood pressure 123 mm[Hg] Lebron Guevara MD Work Phone: [facility] 08-06-2022 01:39-0500 Body height 172.7 cm Morgan Falk DO Work Phone: [facility] 08-06-2022 01:39-0500 Body mass index (BMI) [Ratio] 25.39 kg/m2 Morgan Falk DO Work Phone: [facility] 08-06-2022 01:39-0500 Body temperature 97.81 [degF] Morgan Falk DO Work [facility] 08-06-2022 01:39-0500 Body weight 75.75 kg Morgan Falk DO Work [facility] 08-06-2022 01:39-0500 Diastolic blood pressure 63 mm[Hg] Morgan Falk DO Work Phone: [facility] 08-06-2022 01:39-0500 Heart rate 95 /min Morgan Falk DO Work Phone: [facility] 08-06-2022 01:39-0500 Respiratory rate 18 /min Morgan Falk DO Work Phone: [facility] 08-06-2022 01:39-0500 SaO2% (BldA) [Mass fraction] 98 % Morgan Falk DO [facility] 08-06-2022 01:39-0500 Systolic blood pressure 116 mm[Hg] Morgan Falk DO Work Phone[facility] 07-12-2022 05:06-0500 Heart rate 86 /min Kaylinn Dokken [facility] 07-12-2022 05:06-0500 Respiratory rate 11 /min Kaylinn Dokken [facility] 07-12-2022 05:06-0500 SaO2% (BldA) [Mass fraction] 97 % Kaylinn Dokken [facility] 07-12-2022 03:38-0500 Body temperature 97.52 [degF] Kaylinn Dokken [facility] 07-12-2022 03:38-0500 Diastolic blood pressure 64 mm[Hg] Kaylinn Dokken [facility] 07-12-2022 03:38-0500 Heart rate 94 /min Kaylinn Dokken [facility] 07-12-2022 03:38-0500 Respiratory rate 20 /min Kaylinn Dokken [facility] 07-12-2022 03:38-0500 SaO2% (BldA) [Mass fraction] 98 % Kaylinn Dokken [facility] 07-12-2022 03:38-0500 Systolic blood pressure 125 mm[Hg] Kaylinn Dokken [facility] 07-01-2022 14:43-0500 Diastolic blood pressure 67 mm[Hg] Alejandra Winkler MD Work Phone: [employer] [place] 07-01-2022 14:43-0500 Systolic blood pressure 103 mm[Hg] Alejandra Winkler MD Work Phone: [employer] [place] 07-01-2022 14:19-0500 Body height 172.7 cm Alejandra Winkler MD Work Phone: [employer] [place] 07-01-2022 14:19-0500 Body mass index (BMI) [Ratio] 24.63 kg/m2 Alejandra Winkler MD Work Phone: [employer] [place] 07-01-2022 14:19-0500 Body temperature 97.3 [degF] Alejandra Winkler MD Work Phone: [employer] [place] 07-01-2022 14:19-0500 Body weight 73.48 kg Alejandra Winkler MD Work Phone: [employer] [place] 07-01-2022 14:19-0500 Heart rate 82 /min Alejandra Winkler MD Work Phone: [employer] [place] 07-01-2022 14:19-0500 Respiratory rate 16 /min Alejandra Winkler MD Work Phone: [employer] [place] 07-01-2022 14:19-0500 SaO2% (BldA) [Mass fraction] 99 % Alejandra Winkler MD Work Phone: [employer] [place] 04-18-2022 15:20-0400 Body mass index (BMI) [Ratio] 27.06 kg/m2 Lebron Guevara MD Work Phone: [employer] [place] 04-18-2022 15:20-0400 Body temperature 98.2 [degF] Lebron Guevara MD Work Phone: [employer] [place] 04-18-2022 15:20-0400 Body weight 78.38 kg Lebron Guevara MD Work Phone: [employer] [place] 04-18-2022 15:20-0400 Diastolic blood pressure 75 mm[Hg] Lebron Guevara MD Work Phone: [employer] [place] 04-18-2022 15:20-0400 Heart rate 76 /min Lebron Guevara MD Work Phone: [employer] [place] 04-18-2022 15:20-0400 Respiratory rate 16 /min Lebron Guevara MD Work Phone: [employer] [place] 04-18-2022 15:20-0400 SaO2% (BldA) [Mass fraction] 98 % Lebron Guevara MD Work Phone: [employer] [place] 04-18-2022 15:20-0400 Systolic blood pressure 119 mm[Hg] Lebron Guevara MD Work Phone: [employer] [place] 02-27-2022 15:55-0400 Body height 170.2 cm Josemanuel Ibarra MD Work Phone: [employer] [place] 02-27-2022 15:55-0400 Body mass index (BMI) [Ratio] 28.61 kg/m2 Josemanuel Ibarra MD Work Phone: [employer] [place] 02-27-2022 15:55-0400 Body weight 82.87 kg Josemanuel Ibarra MD Work Phone: [employer] [place] 02-27-2022 15:50-0400 Body temperature 98.1 [degF] Josemanuel Ibarra MD Work Phone: [employer] [place] 02-27-2022 15:50-0400 Diastolic blood pressure 76 mm[Hg] Josemanuel Ibarra MD Work Phone: [employer] [place] 02-27-2022 15:50-0400 Heart rate 71 /min Josemanuel Ibarra MD Work Phone: [employer] [place] 02-27-2022 15:50-0400 Respiratory rate 18 /min Josemanuel Ibarra MD Work Phone: [employer] [place] 02-27-2022 15:50-0400 SaO2% (BldA) [Mass fraction] 98 % Josemanuel Ibarra MD Work Phone: [employer] [place] 02-27-2022 15:50-0400 Systolic blood pressure 135 mm[Hg] Josemanuel Ibarra MD Work Phone: [employer] [place] 02-08-2022 19:11-0400 Body height 170.2 cm Josemanuel Ibarra MD Work Phone: [employer] [place] 02-08-2022 19:11-0400 Body mass index (BMI) [Ratio] 28.93 kg/m2 Josemanuel Ibarra MD Work Phone: [employer] [place] 02-08-2022 19:11-0400 Body temperature 98.6 [degF] Josemanuel Ibarra MD Work Phone: [employer] [place] 02-08-2022 19:11-0400 Body weight 83.78 kg Josemanuel Ibarra MD Work Phone: [employer] [place] 02-08-2022 19:11-0400 Diastolic blood pressure 76 mm[Hg] Josemanuel Ibarra MD Work Phone: [employer] [place] 02-08-2022 19:11-0400 Heart rate 85 /min Josemanuel Ibarra MD Work Phone: [employer] [place] 02-08-2022 19:11-0400 Respiratory rate 18 /min Josemanuel Ibarra MD Work Phone: [employer] [place] 02-08-2022 19:11-0400 SaO2% (BldA) [Mass fraction] 99 % Josemanuel Ibarra MD Work Phone: [employer] [place] 02-08-2022 19:11-0400 Systolic blood pressure 124 mm[Hg] Josemanuel Ibarra MD Work Phone: [employer] [place] Encounters Encounter Date Encounter Type Care Provider Facility Start: 09-27-2024 End: 09-27-2024 Clinisync Result Encounter Julius Keira DO Work Phone: [facility] Unsolicited Start: 09-27-2024 End: 09-27-2024 Clinisync Result Encounter Julius Keira DO Work Phone: [facility] Unsolicited Start: 09-26-2024 End: 09-26-2024 Clinisync Result Encounter Julius Keira DO Work Phone: [facility] Unsolicited Start: 09-26-2024 End: 09-26-2024 Clinisync Result Encounter Julius Keira DO Work Phone: [facility] Unsolicited Start: 09-22-2024 End: 09-22-2024 Bamboo flowsheet Jo [...] Evaluation and management of inpatient Camille [place] [place]: 09-01-2024 Emergency department patient visit Richard Escudero [place] Start: 09-01-2024 End: 09-02-2024 Evaluation and management of inpatient Camille Thornton [facility] Start: 08-31-2024 End: 08-31-2024 Bamboo flowsheet Julius Keira DO Work Phone: [facility] Start: 08-31-2024 End: 09-04-2024 Bamboo flowsheet Julius Keira DO Work Phone: [facility] Start: 08-31-2024 End: 09-04-2024 Clinisync Result Encounter Julius Keira DO Work Phone: [facility] External Department Unsolicited Start: 08-31-2024 End: 08-31-2024 Office outpatient visit 15 minutes Julius Keira DO Work Phone: [facility] Comment on above: Third trimester preg po; 35 weeks gestation of Start: 08-31-2024 End: 08-31-2024 Departed Referred Julius Keira DO Work Phone: [facility] Start: 08-31-2024 End: 08-31-[facility] Start: 08-11-2024 End: 08-11-2024 [...] 07-25-2024 Emergency department patient visit Sissy Shah [facility] Start: 07-12-2024 End: 07-12-2024 Bamboo flowsheet Jo [...] Bamboo flowsheet Julius Keira DO Work Phone: [facility] Start: 06-28-2024 End: 06-28-2024 ambulatory JULIUS KEIRA Not Available Start: 06-28-2024 End: 06-28-2024 Office outpatient visit 15 minutes Julius Keira DO Work Phone: [facility] Comment on above: Second trimester pre gnancy; 26 weeks gestation of Start: 06-12-2024 End: 06-12-2024 Clinisync Result Encounter Jo DENNIS Work Phone: [facility] External Department Unsolicited Start: 06-12-2024 End: 06-12-2024 Clinisync Result Encounter Jo DENNIS Work Phone: [facility] External Department Unsolicited Start: 05-27-2024 End: 05-27-2024 Bamboo flowsheet Jo DENNIS Work Phone: [facility] Start: 05-27-2024 End: 05-27-2024 Bamboo flowsheet Jo Anderson PA Work Phone: [facility] Start: 05-27-2024 End: 05-27-2024 Office outpatient visit 15 minutes Jo DENNIS Work Phone: [facility] Comment on above: Second trimester pre gnancy; 22 weeks gestation of ; Diabetes mellitus screening; Decreased appetite Start: 05-27-2024 End: 05-27-2024 ambulatory JO ANDERSON Not Available Start: 04-29-2024 End: 04-29-2024 Bamboo flowsheet Jo DENNIS Work Phone: [facility] Start: 04-29-2024 End: 05-01-2024 Bamboo flowsheet Jo DENNIS Work Phone: [facility] Start: 04-29-2024 End: 05-01-2024 Clinisync Result Encounter Jo DENNIS Work Phone: [facility] External Department Unsolicited Start: 04-29-2024 End: 05-01-2024 External Result Encounter Jo DENNIS Work Phone: [facility] External Department Unsolicited Start: 04-29-2024 End: 04-29-2024 Office outpatient visit 15 minutes Jo DENNIS Work Phone: [facility] Comment on above: Screening, , for anatomic survey; Well woman exam with routine gynecological exam; Screen for STD (sexually transmitted disease); Vaginal discharge; 18 weeks gestation of Start: 04-29-2024 End: 04-29-2024 Patient encounter procedure Jo DENNIS Work Phone: [facility] Healthcare Start: 04-29-2024 End: 04-29-2024 ambulatory JO JUSTIN Not Available Start: 04-23-2024 End: 04-23-2024 Emergency department patient visit [facility] Natalya [facility] Start: 03-30-2024 End: 03-30-2024 ambulatory JULIUS KEIRA Not Available Start: 02-23-2024 End: 02-23-2024 ambulatory JULIUS KEIRA Not Available Start: 02-01-2024 End: 02-01-2024 Emergency department patient visit [facility] Start: 01-12-2024 End: 01-12-2024 ambulatory JO JUSTIN Not Available Start: 12-14-2023 End: 12-14-2023 Emergency department patient visit [facility] Start: 11-27-2023 End: 11-27-2023 ambulatory JO JUSTIN Not Available Start: 11-14-2023 End: 11-14-2023 ambulatory Julius Keira [facility] Work Phone: Start: 11-14-2023 End: 11-14-2023 Departed Referred Julius Keira Work Phone: [facility] Start: 11-13-2023 End: 11-13-2023 Emergency department patient visit [facility] Start: 11-13-2023 End: 11-13-2023 ambulatory JULIUS CROCKETT Not Available Start: 10-16-2023 End: 10-16-2023 ambulatory JULIUS VALLEO Not Available Start: 09-08-2023 End: 09-08-2023 Emergency department patient visit Fercho Jaime [facility] Start: 06-05-2023 End: 06-05-2023 Emergency department patient visit Fercho Jaime [place] Start: 06-05-2023 End: 06-05-2023 Emergency department patient visit Fercho Jaime [facility] Start: 04-05-2023 End: 04-05-2023 Emergency department patient visit [facility] Start: 03-23-2023 End: 03-23-2023 Emergency department patient visit [facility] Start: 12-05-2022 End: 12-06-[address] JULIUS CROCKETT . Facility: Start: 12-05-2022 End: 12-06-2022 ambulatory JO ANDERSON . Facility: Start: 11-26-2022 End: 12-23-2022 Pre-admission assessment Shawn Wilson [facility] Start: 11-25-2022 End: 11-26-2022 ambulatory Shawn Wilson [place] Start: 11-25-2022 End: 11-25-2022 OB Triage Shawn Wilson [facility] Start: 11-07-2022 End: 11-07-[address] JULIUS CROCKETT . Facility:[facility] Start: 11-07-2022 End: 11-07-2022 ambulatory JO ANDERSON . Facility: Start: 10-04-2022 End: 10-05-[address] JULIUS CROCKETT . Facility: Start: 10-04-2022 End: 10-05-[address] AMBROSE URBANO . Facility: Start: 09-30-2022 End: 09-30-2022 Emergency department patient visit Morgan Falk Work Phone: [facility] ED Comment on above: Nausea and vomiting during (Primary Dx) Start: 09-26-2022 End: 09-26-2022 Emergency department patient visit Nguyen Edmonds MD Work Phone: [facility] Comment on above: Cellulitis of right upper extremity (Primary Dx) Start: 09-20-2022 End: 09-21-2022 ambulatory ALFRED BERGERON Facility: Start: 09-08-2022 End: 09-08-2022 Emergency department patient visit DO Sissy Maldonado Ivettanam [place] Start: 09-04-2022 End: 09-04-2022 Emergency department patient visit Lebron Guevara MD Work Phone: [facility] Comment on above: Vomiting of pregnanc y, antepartum (Primary Dx); Dehydration during Start: 09-02-2022 End: 09-02-2022 Emergency department patient visit Coleman Ludwig [place] Start: 08-28-2022 End: 08-29-2022 Emergency department patient visit Alfredito Brennan [place] Start: 08-28-2022 End: 08-29-2022 [facility] Start: 08-26-2022 End: 08-26-2022 Emergency department patient visit Kei Moore [place] Start: 08-26-2022 End: 08-26-2022 Emergency department patient visit Kei Moore [facility] Start: 08-24-2022 End: 08-24-2022 Emergency department patient visit Andrea Mitchell MD Work Phone: [facility] Comment on above: Hyperemesis gravidar um (Primary Dx); Dehydration Start: 08-10-2022 End: 08-10-2022 Emergency department patient visit Lebron Guevara MD Work Phone: [facility] Comment on above: Abdominal pain durin g in first trimester (Primary Dx); Nausea and vomiting during Start: 08-06-2022 End: 08-06-2022 Emergency department patient visit Morgan Falk DO Work Phone: [facility] Comment on above: Morning sickness (Pr imary Dx) Start: 07-12-2022 End: 07-12-2022 Emergency department patient visit DO Sissy Shah [place] Start: 07-12-2022 End: 07-12-2022 Emergency department patient visit Sissy Shah [facility] Start: 07-01-2022 End: 07-01-2022 Emergency department patient visit Alejandra Winkler MD Work Phone: [facility] Comment on above: Pain, dental (Primar y Dx); History of tooth extraction, unspecified edentulism class Start: 04-18-2022 End: 04-18-2022 Emergency department patient visit Lebron Guevara MD Work Phone: [facility] Comment on above: Abdominal cramping ( Primary Dx); Negative test Start: 04-09-2022 End: 04-09-2022 ambulatory LAURA GONZALEZ Facility: Start: 02-27-2022 End: 02-27-2022 Emergency department patient visit Josemanuel Ibarra MD Work Phone: [facility] Comment on above: Pain, dental (Primar y Dx) Start: 02-15-2022 End: 02-16-[address] AMBROSE URBANO . Facility: Start: 02-08-2022 End: 02-08-2022 Emergency department patient visit Josemanuel Ibarra MD Work Phone: [facility] Comment on above: Non-intractable vomi ting with nausea, unspecified vomiting type (Primary Dx) Start: 06-02-2017 End: 06-02-2017 Emergency department patient visit JO LIMA [facility] Procedures Date Procedure Procedure Detail Performing Clinician Start: 09-27-2024 ALL CBC WITH AUTO DIFF Julius Keira DO Work Phone: Start: 09-26-2024 [facility] DRUG SCREEN RAPI D (URINE) Julius Keira DO Work Phone: Start: 09-22-2024 Urnls dip stick/tabl et rgnt [...] Treatment Date Care Activity Detail Author Start: 09-29-2024 End: 09-29-2024 Patient encounter procedure 09/29/2024 11:20 AM EST Routine [facility] [address] [place] [id number] Julius Crockett DO [address] [place] [id number] [facility] Start: 09-22-2024 End: 09-22-2024 Patient encounter procedure [...] Streptococcu s Culture Group B Streptococcus Culture [facility] Start: 08-31-2024 End: 08-31-2024 Patient encounter procedure [facility] Comment on above: Arrived Start: 08-31-2024 Following clinical pathway protocol [facility] Start: 08-11-2024 End: 08-11-2024 Patient encounter procedure 08/11/2024 11:00 AM EST Routine [facility] [address] [place] [id number] Jo Anderson PA [address] [place] [address] Arrived [facility] Comment on above: Arrived Start: 07-28-2024 End: 07-28-2024 Patient encounter procedure [facility] Comment on above: Arrived Start: 07-28-2024 End: 07-28-2024 Professional / ancillary services management 07/28/2024 10:30 AM EST Ancillary Procedure [facility] [address] [facility] [place] [phone] [facility] Start: 07-12-2024 End: 07-12-2025 US for US OB SCAN FOR GROWTH Imaging Routine size inconsistent with dates Expected: 07/12/2024 (Approximate), Expires: 07/12/2025 [facility] Work Phone: Comment on above: Expected: 07/12/2024 (Approximate), Expires: 07/12/2025 Start: 07-12-2024 End: 07-12-2024 Patient encounter procedure 07/12/2024 10:50 AM EST Routine [facility] [address] [place] [phone] Jo Anderson PA [address] [place], [place] [id number] [facility] Start: 06-28-2024 End: 06-28-2024 Patient encounter procedure 06/28/2024 10:40 AM EST Routine [facility] [address] [facility] [place] [phone] Julius Crockett DO [address] [place] [address] [facility] Start: 05-27-2024 End: 05-27-2025 CBC panel - Blood by Automated count CBC Lab Routine Diabetes mellitus screening Expected: 05/27/2024 (Approximate), Expires: 05/27/2025 [facility] Work Phone: Comment on above: Expected: 05/27/2024 (Approximate), Expires: 05/27/2025 Start: 05-27-2024 End: 05-27-2025 Measurement of glucose 1 hour after glucose challenge for glucose tolerance test Glucose tolerance, 1 hour Lab Routine Diabetes mellitus screening Expected: 05/27/2024 (Approximate), Expires: 05/27/2025 [facility] Comment on above: Expected: 05/27/2024 (Approximate), Expires: 05/27/2025 Start: 05-27-2024 End: 05-27-[address] [facility] Comment on above: Arrived Start: 05-12-2024 End: 05-12-2024 Professional / ancillary services management 05/12/2024 10:00 AM EDT Ancillary Procedure [facility] [address] [facility] [place] [phone] [facility] Start: 04-29-2024 End: 04-29-2025 Alpha fetoprotein, maternal Alpha fetoprotein, maternal Lab Routine 18 weeks gestation of Expected: 04/29/2024 (Approximate), Expires: 04/29/2025 [facility] Comment on above: Expected: 04/29/2024 (Approximate), Expires: 04/29/2025 Start: 04-29-2024 End: 04-29-2025 US for US OB ANATOMY SINGLE W US OB CERVICAL LENGTH Imaging Routine Screening, , for anatomic survey Expected: 04/29/2024 (Approximate), Expires: 04/29/2025 [facility] Comment on above: Expected: 04/29/2024 (Approximate), Expires: 04/29/2025 Start: 04-29-2024 End: 04-29-2024 Patient encounter procedure 04/29/2024 11:20 AM EDT Routine [facility] [address] [facility] [place] [phone] Jo Anderson PA [address] [place] [address] [facility] Comment on above: Arrived Start: 04-25-2024 Influenza vaccination Influenza Vacc ine (#1) [facility] Start: 03-18-2024 DTaP/Tdap/Td vaccine (6 - Td or Tdap) DTaP/Tdap/Td vaccine (6 - Td or Tdap) [facility] Start: 08-12-2022 End: 08-10-2023 hCG, Quantitative, hCG, Quantitative, Lab Routine Abdominal pain during in first trimester Expected: 08/12/2022, Expires: 08/10/2023 [facility] [employer] Work Phone: Comment on above: Expected: 08/12/2022 , Expires: 08/10/2023 Start: 2022 Screening for malign ant neoplasm of cervix Pap smear [facility] Start: 04-25-2022 Influenza vaccination B [facility] Start: 03-25-2022 Influenza vaccination Flu vaccine (# 1) [facility] Start: 2019 Hepatitis C screening Hepatitis C sc reen [facility] Start: 2017 Screening for Chlamy brian trachomatis [facility] Start: 2016 HIV screening HIV screen [facility] Start: 2013 Depression Screen Depression Screen [facility] Start: 2006 COVID-19 Vaccine (1) COVID-19 Vaccin e (1) [facility] Start: 01-06-2002 COVID-19 Vaccine (#1) COVID-19 Vacci ne (#1) [facility] CBC W Auto Different ial panel - Blood CBC and differential Lab Routine Low iron Ordered: 08/11/2024 [facility] [employer] Work Phone: Comment on above: Ordered: 08/11/2024 CHLAMYDIA TRACHOMATI S (GENITO/STI) CHLAMYDIA TRACHOMATIS (GENITO/STI) Lab Routine Screen for STD (sexually transmitted disease) Vaginal discharge 18 weeks gestation of Ordered: 04/29/2024 [facility] Comment on above: Ordered: 04/29/2024 Ferritin [Mass/volum e] in Serum or Plasma Ferritin Lab Routine Low iron Ordered: 08/11/2024 [facility] Comment on above: Ordered: 08/11/2024 Neisseria gonorrhoea e DNA [Presence] in Unspecified specimen by CATRINA with probe detection Neisseria gonorrhea DNA probe, direct Lab Routine Screen for STD (sexually transmitted disease) Vaginal discharge 18 weeks gestation of Ordered: 04/29/2024 [facility] Comment on above: Ordered: 04/29/2024 SURESWAB(R) ADVANCED VAGINITIS PLUS, TMA SURESWAB(R) ADVANCED VAGINITIS PLUS, TMA Pathology and Cytology Routine Screen for STD (sexually transmitted disease) Vaginal discharge 18 weeks gestation of Ordered: 04/29/2024 [employer] Work Phone: Comment on above: Ordered: 04/29/2024 End: 08-10-2022 US OB TRANSVAGINAL US OB TRANSVAGINAL Imaging STAT Once for 1 Occurrences starting 08/10/2022 until 08/10/2022 [employer] Work Phone: Comment on above: Once for 1 Occurrenc es starting 08/10/2022 until 08/10/2022 US OB TRANSVAGINAL US OB TRANSVA GINAL Imaging STAT 08/10/2022 1:21 AM EST [employer] [place] Work Phone: Immunizations Immunization Date Immunization Notes Care Provider Robert bravo 07-29-2005 influenza virus vacc ine, unspecified formulation Jo DENNIS Work Phone: [facility] Payers Date Payer Category Payer Medicaid [facility] MEDICAID [place] MEDICA[place] [id number] 2022-Present [address] [place] [id number] [id number] 2022 Medicaid (Managed Care) [facility] MEDICAID [id number] 2001 Unknown [id number] 2.16.840.1.217611.3.579.2. 593 2001 Unknown [id number] 2.16.840.1.260387.3.579.2. 593 2001 Unknown [id number] 2.16.840.1.473998.3.579.2. 593 2001 Unknown [id number] 2.16.840.1.879124.3.579.2. 593 2001 Unknown [id number] 2.16.840.1.046651.3.579.2. 593 2001 Unknown [id number] 2.16.840.1.738756.3.579.2. 593 2001 Unknown [id number] 2.16.840.1.667405.3.579.2. 593 2001 Unknown [id number] 2.16.840.1.287702.3.579.2. 593 2001 Unknown [id number] 2.16.840.1.210609.3.579.2. 593 2001 Unknown [id number] 2.16.840.1.463472.3.579.2. 593 2001 Unknown [id number] 2.16.840.1.320582.3.579.2. 727 2001 Unknown [id number] 2.16.840.1.969469.3.579.2. 727 2001 Unknown [id number] 2.16.840.1.711489.3.579.2. 727 2001 Unknown [id number] 2.16.840.1.969298.3.579.2. 727 2001 Unknown [id number] 2.16.840.1.879815.3.579.2. 727 2001 Unknown [id number] 2.16.840.1.184567.3.579.2. 727 2001 Unknown [id number] 2.16.840.1.844366.3.579.2. 727 2001 Unknown [id number] 2.16.840.1.428133.3.579.2. 173 2001 Unknown [id number] 2.16.840.1.119794.3.579.2. 173 2001 Unknown [id number] 2.16.840.1.904157.3.579.2. 174 2001 Unknown [id number] 2.16.840.1.030353.3.579.2. 174 2001 Unknown [id number] 2.16.840.1.773976.3.579.2. 174 2001 Unknown [id number] 2.16.840.1.866264.3.579.2. 727 2001 Unknown [id number] 2.16.840.1.943412.3.579.2. 727 2001 Unknown [id number] 2.16.840.1.413218.3.579.2. 727 2001 Unknown [id number] 2.16.840.1.371531.3.579.2. 727 2001 Unknown [id number] 2.16.840.1.011155.3.579.2. 727 2001 Unknown [id number] 2.16.840.1.752831.3.579.2. 727 2001 Unknown [id number] 2.16.840.1.847085.3.579.2. 727 2001 Unknown [id number] 2.16.840.1.904414.3.579.2. 727 2001 Unknown [id number] 2.16.840.1.516195.3.579.2. 727 2001 Unknown [id number] 2.16.840.1.439621.3.579.2. 727 2001 Unknown [id number] 2.16.840.1.703228.3.579.2. 727 2001 Unknown [id number] 2.16.840.1.403191.3.579.2. 1258 2001 Unknown [id number] 2.16.840.1.872949.3.579.2. 1258 2001 Unknown [id number] 2.16.840.1.711256.3.579.2. 1258 2001 Unknown [id number] 2.16.840.1.527614.3.579.2. 1258 2001 Unknown [id number] 2.16.840.1.948048.3.579.2. 1258 2001 Unknown [id number] 2.16.840.1.949780.3.579.2. 1258 2001 Unknown [id number] 2.16.840.1.297350.3.579.2. 1258 2001 Unknown [id number] 2.16.840.1.958131.3.579.2. 1258 2001 Unknown [id number] 2.16.840.1.991329.3.579.2. 1258 2001 Unknown [id number] 2.16.840.1.509376.3.579.2. 1258 2001 Unknown [id number] 2.16.840.1.147104.3.579.2. 1258 2001 Unknown [id number] 2.16.840.1.051027.3.579.2. 1258 2001 Unknown [id number] 2.16.840.1.778284.3.579.2. 1258 2001 Unknown [id number] 2.16.840.1.490759.3.579.2. 1258 2001 Unknown [id number] 2.16.840.1.596101.3.579.2. 1258 2001 Unknown [id number] 2.16.840.1.121763.3.579.2. 1259 1959 Self-pay 1959 Unknown [id number] 1.2.840.444768.1.13.239.2. 7.3.248447.315 Unknown [id number] 2.16.840.1.125111.3.579.2. 593 Social History Date Type Detail Facility Start: 06-02-2017 End: 03-12-2023 Tobacco smoking status NVIS Never smoked tobacco [facility] Phone: Start: 06-02-2017 End: 03-12-2023 Tobacco use and exposure Smokeless tobacco non-user [facility] Phone: Start: 02-08-2022 End: 09-30-2022 Alcohol intake Current non-drinker of alcohol (finding) [facility] Phone: Start: 02-08-2022 End: 09-30-2022 History SDOH Alcohol Frequency 1 [facility] Phone: Start: 2001 Sex Assigned At Not on file B ON [employer] Phone: Start: 01-29-2022 End: 09-30-2022 Exposure to SARS-CoV-2 (event) Not sure [facility] Phone: Start: 07-01-2022 End: 09-30-2022 History SDOH Alcohol Std Drinks 0 [facility] Phone: Tobacco Household tobacc o concerns: Yes. [facility] Comment on above: denies Tobacco smoking status No Smokin g Status Entered [facility] Start: 05-28-2023 End: 10-16-2023 Sex Assigned At Female [facility] Start: 07-25-2022 [employer] Phone: Start: 09-08-2023 End: 09-01-2024 Tobacco smoking status Ex-smoker (finding) [facility] Comment on above: hx of smoking quit i n 2021 Denies currently Start: 2001 Sex Assigned At Female [facility] Start: 04-29-2024 End: 09-15-2024 Alcoholic beverage intake Lifetime non-drinker (finding) [facility] Start: 05-28-2023 End: 10-16-2023 History of Social function [facility] Start: 02-19-2024 Gender identity Identifies as female gender (finding) [facility] Start: 02-19-2024 Sexual orientation Heterosexual (fin ding) [facility] Tobacco smoking stat us NHIS Unknown if ever smoked [facility] Work Phone: Start: 09-02-2024 Sex Female (finding) [facility] Functional Status Date Assessment Result Facility 09-01-2024 Functional Status No [facility] 09-01-2024 Functional Status [facility] 07-25-2024 Functional Status N/A [facility] 04-23-2024 Functional Status N/A [facility] 09-08-2023 Functional Status N/A [facility] 06-05-2023 Functional Status N/A [facility] 11-25-2022 Functional Status N/A [facility] 08-28-2022 Functional Status N/A [facility] 08-26-2022 Functional Status N/A [facility] 07-12-2022 Functional Status Yes [facility] Clinical Notes 07-12-2022 to 09-22-2024 SONNY Velez [...] of: SONNY Velez documented in this encounter [facility] 09-15-2024 History of Present illness Narrative Reason [...] nursing note reviewed. Exam conducted with a hair spinner present. Vitals: Estimated body mass index is [...] Julius Crockett DO documented in this encounter [facility] 09-08-2024 Note Microbiology PROCEDURE: Blood Culture Charcoal [...] Locations R1: This [facility] performed at: [facility], [address] [place] [address], [address] [place] [address], [address] [place] [address] Comment on above: Performed By: #### 1 [id number] #### [facility] [address] [place] [address] 09-08-2024 Note Microbiology PROCEDURE: Blood Culture Charcoal [R1] SOURCE: Blood BODY SITE: Arm R COLLECTED DATE/TIME: 09/01/2024 01:35 EST RECEIVED DATE/TIME: 09/01/2024 04:12 EST START DATE/TIME: 09/01/2024 04:12 EST FREE TEXT SOURCE: rt yang Escudero MD, Richard Escudero MD, Richard FINAL REPORTS Final Report [] Verified Date/Time: 09/08/2024 06:00 EST No growth at 7 days. Performing Locations R1: This test was performed at: [facility], [address] [place] [address], [address] [place] [address], [address] [place] [address] Comment on above: Performed By: #### 1 [id number] #### [facility] [address] [place] [address] 09-08-2024 Note Microbiology PROCEDURE: Blood Culture Charcoal [...] Locations R1: This test was performed at: [facility], [address] [place] [address], [address] [place] [address], [address] [place] [address] Comment on above: Performed By: #### 1 [id number] #### [facility] [address] [place] [id number] 09-08-2024 Note Microbiology PROCEDURE: Blood Culture Charcoal [...] Locations R1: This test was performed at: [facility], [address] [place] [address], [id number] , , [facility] Comment on above: Performed By: #### 1 [id number] #### [facility] [address] [place] [id number] 09-07-2024 History of Present illness Narrative Reason [...] of: SONNY Velez documented in this encounter [facility] 09-02-2024 Evaluation + Plan note Extrac charito [...] With When Contact Information Ambrose Urbano [address] Business (1) Additional Instructions: Dehydration, Adult Community-Acquired [...] 09/01/24 * Streptococcus pneumoniae Ag, Urine 09/01/24 [facility] 01-09-2025 Hospital Discharge instructions Patient Education 09/02/2024 [...] that is high in altitude, where thinner, coal drier 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 Doing exercises [...] of fat or sugar. General instructions Take bqls-wve-fkfddfv and prescription medicines only as told by [...] provider. Document Revised: 03/10/2023 Document Reviewed: 03/10/2023 [employer] Patient Education 2023 [employer]. 09/02/2024 11:25:15 Community-Acquired Pneumonia, Adult Community-Acquired Pneumonia, [...] Follow these instructions at home: Medicines Take zcds-rqq-ixvfgqo and prescription medicines only as told by [...] and water are not available, use hand personnel and payroll technician. Contact a health care provider if: You [...] provider. Document Revised: 10/09/2022 Document Reviewed: 10/09/2022 [employer] Patient Education 2023 [employer]. Follow Up Care 09/01/2024 00:20:46 With:Per patient request would like to make own hospital follow up appoinment(s). Address:Unknown When: Unknown With:Ambrose Urbano Address: [address] [place] [address] Business (1) When: Unknown [facility] 01-09-2025 NoteDischarge Summary Admission and Discharge Information [...] 1. CT of the chest 09/01/2024 2. PAIRER INSPECTOR consult Services Consulted Consult to Sales Correspondent - Ordered -- 09/01/24 3:55:00 EST, 37 weeks w pneumonia, OB consult, Consult and Co-manage Benefits Manager Consult - Completed -- 09/01/24 5:29:57 EST [...] Follow-up With When Contact Information Ambrose Urbano [address] [facility] [place] [address] [place] [address]- Business (1) Additional Instructions: Patient Education Dehydration, Adult Community-Acquired Pneumonia, [facility]: Result Comment: Electronically Signed By: Trever Miranda DO.br\Date and Time Signed: 09/02/24 11:41 [id number] NoteProgress Note-Physician Day 1 IV azithromycin and [...] 3. 36 weeks OB consulted Daily heart tonesAv[facility] HospitalComment on above:Result Comment: Electronically Signed By: Trever Miranda DO.br\Date and Time Signed: 09/01/24 14:29 [id number] NoteHistory and Physical Basic Information Admit Date/Time:09/01/2024 [...] hours. Her 1yo at home has pneumonia, andyoungband is starting to get sick as well. [...] Lymph Auto: 3.9 % Low (09/01/24 00:53:00) Laurel Auto: 3.9 % Low (09/01/24 00:53:00) Eos Auto: 0.1 % (09/01/24 00:53:00) Basophil Auto: 0.4 % (09/01/24 00:53:00) Neutro Absolute: 14.6 E9/L High (09/01/24 00:53:00) Lymph Absolute: 0.6 E9/L Low (09/01/24 00:53:00) Laurel Absolute: 0.6 E9/L (09/01/24 00:53:00) Eos Absolute: 0 E9/L (09/01/24 00:53:00) Basophil Absolute: 0.1 E9/L (09/01/24 00:53:00) PT: 11.4 second(s) (09/01/24 01:29:00) INR: 1.02 (09/01/24:29:00) PTT: 28.8 second(s) (09/01/24 01:29:00) D-Dimer: 5210 [...] UA Color: Yellow (09/01/24:29:00) UA Clarity: Clear (09/01/24:29:00) UA Spec Grav: 1.022 (09/01/24 01:29:00) UA pH: 6.0 (09/01/24 01:29:00) UA Protein: Trace Abnormal (09/01/24 01:29:00) UA Glucose: Negat (09/01/24 01:29:00) UA Ketones: 3+ Abnormal (09/01/24 01:29:00) UA Bili: Negat (more content not included)...[facility]:Result Comment: Electronically Signed By: Camille Thornton MD\.basil\Date and Time Signed: 09/01/24 05:19 [id number] History of Present illness Narrative* Kelley Clayton, SHERMAN - 08/31/2024 11:00 AM EST Reason for [...] nursing note reviewed. Exam conducted with a hair spinner present. Vitals: Estimated body mass index is [...] of: Julius Crockett DO documented in this encounterSaint [facility]'s [id number] History of Present illness Narrative* SONNY Velez [...] behalf of: SONNY Velez documented in this encounterSaint John's [id number] History of Present illness Narrative* SONNY Velez [...] of: Julius Crockett DO documented in this encounterSaint John's [id number] Hospital Discharge instructions Patient Education 07/25/2024 23:52:04 Urinary Tract Infection, Adult, Owgv-ts-Kiyl Urinary Tract Infection, Adult A urinary tract [...] Follow these instructions at home: Medicines Take qtzt-inq-jztrwuh and prescription medicines only as told by [...] provider. Document Revised: 03/18/2021 Document Reviewed: 03/23/2021 [employer] Patient Education 2023 [employer]. 07/25/2024 23:52:04 Nausea and Vomiting, Adult, Zuma-qv-Wqqm Nausea and Vomiting, Adult Nausea is feeling [...] fruit juice). ?Low-calorie sports drinks. Eat bland, ucez-yt-ffjdbo foods in small amounts as you are able, such as: ?Bananas. ?Applesauce. ?Rice. ?Low-fat (lean) meats. ?[place]. ?Crackers. Avoid drinking fluids that have a lot of sugar or caffeine in them. This includes energy drinks, sports drinks, and soda. Avoid alcohol. Avoid spicy or fatty foods. General instructions Take jgsk-ryp-bfepdkq and prescription medicines only as told by your doctor. Drink enough fluid to keep your pee (urine) pale yellow. Wash your hands often with soap and water for at least 20 seconds. If you cannot use soap and water, use hand personnel and payroll technician. Make sure that everyone in your home [...] your doctor about eating and drinking. Take abnu-fvy-gfezxyg and prescription medicines only as told by your doctor. Contact your doctor if your symptoms get worse or you have new symptoms. Keep all follow-up visits. This information is not intended to replace advice given to you by your health care provider. Make sure you discuss any questions you have with your health care provider. Document Revised: 02/15/2022 Document Reviewed: 02/15/2022 [employer] Patient Education 2023 [employer]. 07/25/2024 23:52:04 General Headache Without Cause, Eaet-ur-Cqsh General Headache Without Cause A headache is pain or discomfort you feel around the head or neck area. There are many causes and types of headaches. In some cases, the cause may not be found. Follow these instructions at home: Watch your condition for any changes. Let your doctor know about them. Take these steps to help with your condition: Managing pain Take sdbc-kti-ovthhdd and prescription medicines only as told by [...] right away. Call your local emergency services ([address] [place] Do not wait to see [...] provider. Document Revised: 01/09/2022 Document Reviewed: 01/09/2022 [employer] Patient Education 2023 [employer]. Follow Up Care 07/25/2024 22:10:02 With:Ambrose Urbano Address: [address] [place] [address] Business (1) When:07/28/2024 Comments:Take the antibiotics as prescribed you have completed the course. Use nausea medication every 6 hours as needed for nausea and vomiting. You can use Tylenol every 6 hours as needed for pain. Please follow-up with your primary care doctor and PAIRER INSPECTOR for further evaluation management. Please return to the ED for any new or worsening symptoms. [facility] 12-01-2024 NoteED Patient Education Note Gastroenterology Nausea [...] ? Low-calorie sports drinks. ??? Eat bland, pnbf-ax-bvkirw foods in small amounts as you are able, such as: ? Bananas. ? Applesauce. ? Rice. ? Low-fat (lean) meats. ? [place]. ? Crackers. ??? Avoid drinking fluids that have a lot of sugar or caffeine in them. This includes energy drinks, sports drinks, and soda. ??? Avoid alcohol. ??? Avoid spicy or fatty foods. General instructions ??? Take czsu-pvx-ylqphqj and prescription medicines only as told by your doctor. ??? Drink enough fluid to keep your pee (urine) pale yellow. ??? Wash your hands often with soap and water for at least 20 seconds. If you cannot use soap and water, use hand personnel and payroll technician. ??? Make sure that everyone in your [...] doctor about eating and drinking. ??? Take ynxx-qmf-cfrycgf and prescription medicines only as told by your doctor. ??? Contact your doctor if your symptoms get worse or you have new symptoms. ??? Keep all follow-up visits. This information is not intended to replace advice given to you by your health care provider. Make sure you discuss any questions you have with your health care provider. Document Revised: 02/15/2022 Document Reviewed: 02/15/2022 [employer] Patient Education ? 2023 [employer] Neurology General Headache Without Cause A [...] with your condition: Managing pain ??? Take szls-ane-omiaroa and prescription medicines only as told by your doctor. This includes medicines for pain that are taken by mouth or put on the skin. ??? Lie down in a dark, quiet room when you have a headache. ??? If told, pu (more content not included)...[facility] 07-25-2024 Evaluation + Plan noteExtracted from: Title:ED [...] day(s), # 15 cap(s), Refills(s) 0, Pharmacy: [id number], 175, cm, 07/25/24 22:16:00 EST, Height/Length [...] q6hr, # 12 tab(s), Refills(s) 0, Pharmacy: [id number], 175, cm, 07/25/24 22:16:00 EST, Height/Length Dosing, 79.2, kg, 07/25/24 22:16:00 EST, Weight Dosing Sodium Chloride 0.9% intravenous solution, 500 mL, Soln-IV, IV, Once, Stop date 07/25/24 22:42:00 EST, STAT, Start date 07/25/24 22:42:00 EST, Infuse over 60, minute(s) UA with Cult Rflx Urine Culture Diagnostic Tests Pending * Urine Culture 07/25/24 [facility] 11-18-2024 History of Present illness Narrative* SONNY [...] behalf of: SONNY Velez documented in this encounterSaint John's [id number] History of Present illness Narrative* Pippa Ja [...] of: Julius Crockett DO documented in this encounterSaint John's [id number] History of Present illness Narrative* SONNY Velez [...] behalf of: SONNY Velez documented in this encounterSaint John's [id number] History of Present illness Narrative* SONNY Velez [...] behalf of: SONNY Velez documented in this encounterSaint John's [id number] Hospital Discharge instructions Patient Education 04/23/2024 12:06:38 [...] Follow these instructions at home: Medicines Take ezar-xwc-ahwqdhh and prescription medicines only as told by [...] provider. Document Revised: 05/28/2023 Document Reviewed: 05/28/2023 [employer] Patient Education 2023 [employer]. Follow Up Care 04/23/2024 09:37:57 With:Julius CROCKETT Address: [address] [place] [address]- Business (1) When:04/26/2024 11:53:03 With:Ambrose Urbano Address: [address] [place], [place] [address] [address] Business (1) When:04/26/2024 11:52:53 [facility] 08-30-2024 NoteED Patient Education Note Gastroenterology Abdominal [...] these instructions at home: Medicines ? Take syvh-pha-orrthyj and prescription medicines only as told by [...] provider. Document Revised: 05/28/2023 Document Reviewed: 05/28/2023 [employer] Patient Education ? 2023 [employer].[facility] 09-08-2023 Evaluation + Plan noteExtracted from: Title:ED Note Author:Eagle Hawk PA-C te:09/08/23 Bronchitis (J40: Bronchitis, not specified as acute or chronic) Orders: brompheniramine/dextromethorphan/PSE, 10 mL, Oral, QID for cough and congestion for 7 day(s), 280 mL, Refill(s) 0, Oz Sonotek #16, 175, cm, 09/08/23 11:11:00 EST, Height/Length Dosing, 79.5, kg, 09/08/23 11:11:00 EST, Weight Dosing XR Chest 2 Views [facility]01-15-2024 Hospital Discharge instructions Patient Education 09/08/2023 [...] condition. Follow these instructions at home: Take avtz-lof-xhmeazw and prescription medicines only as told by [...] and water are not available, use hand personnel and payroll technician. Avoid contact with people who have cold [...] it is easier to cough up. Take vbxy-kht-yqgupff and prescription medicines only as told by [...] provider. Document Revised: 11/21/2022 Document Reviewed: 12/12/2021 [employer] Patient Education 2022 [employer]. Follow Up Care 09/08/2023 11:03:42 With:Ambrose Urbano Address: [address] [place] [address]- Business (1) When:09/11/2023 11:37:37 [facility]10-12-2023 Hospital Discharge instructions Patient Education 06/05/2023 [...] help with your condition: Managing pain Take hxus-wvq-trvmjrr and prescription medicines only as told by [...] provider. Document Revised: 01/09/2022 Document Reviewed: 01/09/2022 [employer] Patient Education 2022 [employer]. Follow Up Care 06/05/2023 15:22:25 With:Ambrose Guillaume Address: [address] [place], [place] [id number] Business (1) When:06/08/2023 18:17:47 Comments:Call the office [...] you develop any new or worsening symptoms. [facility]10-12-2023 Evaluation + Plan noteExtracted from: Title:ED [...] eGFR Influenza A&B Ag Rapid [place]igen [place] [place] U Beta Hcg Qual [facility]04-04-2023 NoteThe following Patient Education Materials have been given to the patient: [facility] Discharge instructions Patient Education 11/25/2022 [...] or until the pain goes away. Take euhg-uts-tzpgtye and prescription medicines only as told by [...] 05/20/2009 Document Revised: 01/27/2019 Document Reviewed: 01/27/2019 [employer] Patient Education 2020 [employer] 11/25/2022 22:14:49 Morning Sickness, Dmsp-rz-Xxaa Morning Sickness Morning sickness is when you [...] Follow these instructions at home: Medicines Take opkr-obr-vrljwtp and prescription medicines only as told by [...] 09/18/2005 Document Revised: 07/24/2018 Document Reviewed: 09/11/2017 [employer] Patient Education 2020 [employer]. 11/25/2022 22:14:49 Second Trimester of , Uaww-iy-Zvrn Second Trimester of The second trimester is [...] Follow these instructions at home: Medicines Take zssc-kox-bbkoxrg and prescription medicines only as told by [...] 11/05/2010 Document Revised: 12/03/2019 Document Reviewed: 09/16/2017 [employer] Patient Education 2020 [employer]. 11/25/2022 22:14:49 Abdominal Pain During , Stji-ky-Mhhu Abdominal Pain During Belly (abdominal) pain is [...] keep your pee (urine) pale yellow. Take iqeh-yjn-qgqrffo and prescription medicines only as told by [...] 07/30/2010 Document Revised: 11/29/2019 Document Reviewed: 11/13/2017 [employer] Patient Education 2020 [employer]. Follow Up Care 11/25/2022 18:22:07 With:Your doctor in [place] [phone] Address:Unknown When:11/28/2022 21:41:43 Comments:Call for any problems.Call [...] work. May take Tylenol for pain relief. [facility]02-06-2023 Hospital Discharge instructions* Discharge Instructions* Morgan Falk DO - 09/30/2022 9:10 AM EST Zofran as needed for nausea. Follow-up with OB next week as scheduled. Return to ER for worsening symptoms including intractable vomiting or abdominal pain or fevers or chills or any vaginal bleeding. * Attachments The following attachments cannot be sent through Care Everywhere. * : Hyperemesis Gravidarum ([place]) [facility] [employer] Phone: [phone] 145-240401-11-2023 Hospital Discharge instructions* Attachments The following attachments cannot be sent through Care Everywhere. * : Morning Sickness (Argent[place]) * Oral Rehydration ([place]) documented in this encounter[facility]ON [employer] Phone: [phone]) 743-426201-05-2023 Evaluation + Plan noteExtracted from: Title:ED Note Author:Alfredito Brennan M.D. te:08/29/22 1. Abdominal pain (R10.9: Un specified [...] UA With Cult Reflex US 1st Trimester [facility]01-05-2023 Hospital Discharge instructions Patient Education 08/29/2022 [...] water added (diluted fruit juice). Eat bland, efqs-um-ytshvk foods in small amounts as you are able. These foods include bananas, applesauce, rice, lean meats, toast, and crackers. Avoid drinking fluids that contain a lot of sugar or caffeine, such as energy drinks, sports drinks, and soda. Avoid alcohol. Avoid spicy or fatty foods. General instructions Take lgbm-njw-jacqvyb and prescription medicines only as told by your health care provider. Rest at home while you recover. Drink enough fluid to keep your urine pale yellow. Breathe slowly and deeply when you feel nauseous. Avoid smelling things that have strong odors. Wash your hands often using soap and water. If soap and water are not available, use hand personnel and payroll technician. Make sure that all people in your [...] recommendations for eating and drinking and take nlvt-vda-ogybjrh and prescription medicinesonly as told by your [...] 09/18/2005 Document Revised: 01/19/2019 Document Reviewed: 01/19/2019 [employer] Patient Education 2020 [employer] 08/29/2022 01:49:40 First Trimester of First [...] Move your legs often if you must reporting developer one placefor a long time. Avoid heavy [...] disease or chickenpox. You are exposed to Ivorian measles (rubella) and have never had it. [...] 08/05/2002 Document Revised: 07/24/2018 Document Reviewed: 07/23/2017 [employer] Patient Education 2020 [employer]. 08/29/2022 01:49:40 Abdominal Pain During Abdominal Pain [...] to keep your urine pale yellow. Take jspo-wdp-anhqfxw and prescription medicines only as told by [...] 08/11/2006 Document Revised: 11/29/2019 Document Reviewed: 11/13/2017 [employer] Patient Education 2020 [employer]. Follow Up Care 08/28/2022 21:30:23 With:Julius CROCKETT Address: [address] , [place] [address]- Business (1) When:09/01/2022 Comments:Return to the emergency room if your pain gets worse, general bleeding, vomiting or any new symptoms With:Ambrose Urbano Address: [address] [place] [address] [address] [phone]- Business (1) When:Within 3 Day(s) [facility]01-02-2023 Evaluation + Plan noteExtracted from: Title:ED [...] Tube Lipase Level UA With Cult Reflex [facility]01-02-2023 Hospital Discharge instructions Follow Up Care 08/26/2022 11:00:10 With:Julius CROCKETT Address: [address] [place] [address]- Business (1) When:08/29/2022 12:48:07 With:Ambrose Urbano Address: [address] [place] [address] [place] [address]- Business (1) When:Within 3 Day(s) [facility]12-31-2022 History of Present illness Narrative* Shantanu Jameson RN - 08/24/2022 2:15 AM EST Patient resting with eyes closed [facility] [employer] Phone: [phone] 484-203812-17-2022 Hospital Discharge instructions* Discharge Instructions* Lebron Guevara MD - 08/10/2022 2:09 AM EST By Last Menstrual of 07/12, I calculated your due date as 04/18/2023 4 weeks 1 day as of 08/10/2022 * Attachments The following attachments cannot be sent through Care Everywhere. * : Abdominal Pain ([place]) * : Morning Sickness ([place]) [facility] Phone: 1(634) 823-110412-13-2022 Hospital Discharge instructions* Discharge Instructions* Morgan Falk DO - 08/06/2022 1:40 AM EST Take xfkz-obb-thyqgmu Prilosec as needed for heartburn symptoms. Call to establish care. Return to ER for worsening symptoms. * Attachments The following attachments cannot be sent through Care Everywhere. * : Morning Sickness ([place]) documented in [facility] Phone: [phone]) 420-646512-12-2022 Evaluation note* Diagnosis Morning sickness- Primary Mild hyperemesis gravidarum, unspecified as to episode of care documented in this encounter [facility] [employer] Phone: [phone]) 314-708711-18-2022 Evaluation + Plan noteExtracted from: Title:ED Note [...] With Cult Reflex XR Chest Single View [facility]11-18-2022 Hospital Discharge instructions Patient Education 07/12/2022 05:07:15 Abdominal Pain, Adult, Sqgl-iz-Ixbv Abdominal Pain, Adult Many things can cause belly (abdominal) pain. Most times, belly pain is not dangerous. Many cases of belly pain can be watched and treated at home. Sometimes, though, belly pain is serious. Your doctor will try to find the cause of your belly pain. Follow these instructions at home: Medicines Take zpib-seu-tmxnyrx and prescription medicines only as told by [...] your belly pain for any changes. Take jhmm-wwf-fzpdscg and prescription medicines only as told by [...] 01/27/2009 Document Revised: 12/20/2019 Document Reviewed: 12/20/2019 [employer] Patient Education 2020 [employer]. Follow Up Care 07/12/2022 03:38:09 With:Ambrose Urbano Address: [address] [place] [address] Business (1) When:07/15/2022 Comments:Take the Pepcid once [...] theED for any new or worsening symptoms. [facility]* Diagnosis Non-intractable vomiting with nausea, unspecified vomiting type- Primary documented in this encounter [facility]: evaluation note* Diagnosis Pain, dental- Primary Unspecified disorder of the teeth and supporting structures documented in this encounter [facility] [employer] Phone: evaluation note* Diagnosis Abdominal cramping- Primary Abdominal pain, unspecified site Negative test examination or test, negative result documented in this encounter [facility] Phone: evallfdjxa note* Diagnosis Pain, dental- Primary Unspecified disorder of the teeth and supporting structures History of tooth extraction, unspecified edentulism class documented in this encounter [facility] Phone: evaluation note* Diagnosis Abdominal pain during in first trimester- Primary Nausea and vomiting during documented in this encounter [facility] Phone: evaluation note* Diagnosis Hyperemesis gravidarum- Primary Mild hyperemesis gravidarum, unspecified as to episode of care Dehydration documented in this encounter [facility] Phone: evaleztjhq note* Diagnosis Vomiting of , antepartum- Primary Unspecified vomiting of , antepartum Dehydration during documented in this encounter [facility] Phone: evaluation note* Diagnosis Cellulitis of right upper extremity- Primary Cellulitis and abscess of upper arm and forearm documented in this encounter [facility] Phone: evaluation note* Diagnosis Nausea and vomiting during - Primary documented in this encounter [facility] Phone: evalnneget noteNo assessment information available [facility] Work Phone: Evaluation note* Diagnosis Second trimester [...] weeks gestation of documented in [facility] encounter [facility]* Diagnosis Third trimester state, incidental 35 weeks gestation of documented in this encounter [facility] HealthcareEvaluation note* Diagnosis Third trimester state, incidental 36 weeks gestation of documented in this encounter [facility] HealthcareEvaluation note* Diagnosis Third trimester state, incidental 38 weeks gestation of documented in this encounter [facility] HealthcareEvaluation note* Diagnosis Third trimester state, incidental 39 weeks gestation of documented in this encounter [facility] HealthcareHospital course Narrative No data available for this section [facility]* Attachments The following attachments cannot be sent through Care Everywhere. * Nausea and Vomiting ([place]) [facility] [employer] Phone: Hospital Discharge instructions* Attachments The following attachments cannot be sent through Care Everywhere. * Tooth and Gum Pain ([place]) documented in this encounter[facility] [employer] Phone: Hospital Discharge instructions* Attachments The following attachments cannot be sent through Care Everywhere. * Abdominal Pain ([place]) documented in this encounterBON [employer] Phone: Hospital Discharge instructions* Attachments The following attachments cannot be sent through Care Everywhere. * [place] Tooth Extraction: Post-op ([place]) documented in this encounterBON [employer] Phone: Hospital Discharge instructions* Attachments The following attachments cannot be sent through Care Everywhere. * Oral Rehydration ([place]) documented in this encounterBON [employer] Phone: Hospital Discharge instructions* Attachments The following attachments cannot be sent through Care Everywhere. * Cellulitis ([place]) documented in this encounterB[facility] Phone: Hospital Discharge instructions No data available for this section [facility] No data available for this section [facility] Summary Purpose Family History No Family [...] Documents on File Type Date Recorded Patient Website Project Manager Expl anation ACP-Advance Directive ACP-Power of Manager Utilization Management Additional Source Comments INFORMATION SOURCE (unrecogn ized section and content) DATE CREATED AUTHOR 02/17/2018 [facility] DATE CREATED AUTHOR AUTHOR'S ORGANIZ ATION 12/09/2022 [facility] [place] [facility] DATE CREATED AUTHOR AUTHOR'S ORGANIZ ATION 06/07/2023 [facility] DATE CREATED AUTHOR AUTHOR'S ORGANIZ ATION 11/15/2023 [facility] DATE CREATED AUTHOR AUTHOR'S ORGANIZ ATION 02/01/2024 [facility] DATE CREATED AUTHOR AUTHOR'S ORGANIZ ATION 07/26/2024 [facility] DATE CREATED AUTHOR AUTHOR'S ORGANIZ ATION 07/29/2024 [facility] DATE CREATED AUTHOR AUTHOR'S ORGANIZ ATION 09/06/2024 [facility] DATE CREATED AUTHOR AUTHOR'S ORGANIZ ATION 09/07/2024 [facility] DATE CREATED AUTHOR AUTHOR'S ORGANIZ ATION 09/07/2024 [facility] DATE CREATED AUTHOR AUTHOR'S ORGANIZ ATION 09/08/2024 [facility] DATE CREATED AUTHOR AUTHOR'S ORGANIZ ATION 09/11/2024 [facility] DATE CREATED AUTHOR AUTHOR'S ORGANIZ ATION 09/23/2024 [facility] DATE CREATED AUTHOR AUTHOR'S ORGANIZ ATION 09/24/2024 [facility] EPIC Reason for Visit (unrecogniz [...] she took 2 positive tests from the [employer] store but she wanted to come to the hospital to get it checked. 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 INSPECTOR Morning Sickness Nausea with no vomit ing, [...] (New Bag - Prov ider: Majo Haskins, BROOKE)213 (Stopped - Provider: Majo Haskins, RN) ondansetron [...] Care Teams (unrecognized sec tion and content) Postal Worker Relationship Specialty Start Date End Date Ambrose Urbano MD [address] [place] [address] PCP - General Family Medicine 02/08/22 Postal Worker Relationship Specialty Start Date End Date Ambrose Urbano MD [address] [place] [address] PCP - General Family Medicine 02/08/22 Postal Worker Relationship Specialty Start Date End Date Ambrose Urbano MD [address] [place] [address] PCP - General Family Medicine 02/08/22 Postal Worker Relationship Specialty Start Date End Date Ambrose Urbano MD [address] [place] [address] PCP - General Family Medicine 02/08/22 Postal Worker Relationship Specialty Start Date End Date Ambrose Urbano MD [address] [place] [phone] PCP - General Family Medicine 02/08/22 Postal Worker Relationship Specialty Start Date End Date Ambrose Urbano MD [address] [place] [phone] PCP - General Family Medicine 02/08/22 Postal Worker Relationship Specialty Start Date End Date Ambrose Urbano MD [address] [place] [phone] PCP - General Family Medicine 02/08/22 Team Status: Inactive Member Role Status Dates Julius Crockett Attending Provider Active Start: [facility] 2023 End: November 14, 2023 Postal Worker Relationship Specialty Start Date End Date Ambrose Urbano MD [address] [place] [phone] PCP - General Family [facility] 01/23/23 Jo Anderson PA [address] [place] [address] [place] [address] PCP - [facility] 11/24/23 Postal Worker Relationship Specialty Start Date End Date Ambrose Urbano MD [address] [place] [address], [place] [phone] PCP - General Family [facility] 01/23/23 Jo Anderson PA [address] [place] [address] [place] [address] PCP - [facility] 11/24/23 Postal Worker Relationship Specialty Start Date End Date Ambrose Urbano MD [address] [place] [address], [place] [phone] PCP - General [facility] 01/23/23 Jo Anderson PA [address] [place] [address] [place] [address] PCP - [facility] 11/24/23 Postal Worker Relationship Specialty Start Date End Date Ambrose Urbano MD [facility] [place] [address] PCP - General Family [facility] 01/23/23 Jo Anderson PA [address] [place] [address] [place] [address] PCP - [facility] 11/24/23 Postal Worker Relationship Specialty Start Date End Date Ambrose Urbano MD [address] [facility] [place] [address] PCP - General Family Medicine 01/23/23 Jo Anderson PA [address] [place] [address] [place] [address] PCP - [facility] 11/24/23 Postal Worker Relationship Specialty Start Date End Date Ambrose Urbano MD [address] [facility] [place] [address] PCP - General Family [facility] 01/23/23 Jo Anderson PA [address] [place] [address] [place] [address] PCP - [facility] 11/24/23 Postal Worker Relationship Specialty Start Date End Date Ambrose Urbano MD [address] [place] [phone] PCP - General Family [facility] 01/23/23 Jo Anderson PA [address] [place] [address] [place] [address] PCP - [facility] 11/24/23 Postal Worker Relationship Specialty Start Date End Date Ambrose Urbano MD [address] [facility] [place] [address] PCP - General Family Medicine 01/23/23 Jo Anderson PA [address] [place] [address] [place] [address] PCP - [facility] 11/24/23 Postal Worker Relationship Specialty Start Date End Date Ambrose Urbano MD [address] [facility] [place] [address] PCP - General [facility] 01/23/23 Jo Anderson PA [address] [place] [address] [place] [address] PCP - [facility] 11/24/23 Postal Worker Relationship Specialty Start Date End Date Ambrose Urbano MD [address] [place] [address] PCP - General [facility] 01/23/23 Jo Anderson PA [address] [place] [address] [place] [address] PCP - [facility] 11/24/23 Postal Worker Relationship Specialty Start Date End Date Ambrose Urbano MD [address] [facility] [place] [address] [facility] 01/23/23 Jo Anderson PA [address] [place] [address] [place] [address] PCP - [facility] 11/24/23 Postal Worker Relationship Specialty Start Date End Date Ambrose Urbano MD [address] [facility] [place] [address] PCP - General [facility] 01/23/23 Jo Anderson PA [address] [place] [address] [place] [address] PCP - [facility] 11/24/23 Team Status: Inactive Member Role Status Dates Julius Keira Attending Provider Active Start : August 31, 2024 End: August 31, 2024 Postal Worker Relationship Specialty [place] [address] [place] [phone] [facility] 01/23/23 Jo Anderson PA [address] [place] [address] [place] [address] [facility] 11/24/23 Postal Worker Relationship Specialty Start [place] [address] [place] [phone] [facility] 01/23/23 Jo Anderson PA [address] [place] [address] [facility] 11/24/23 Goals (unrecognized section and content) Goals [...] BE BASED ON THE PRIMARY CLINICAL RECORDS. [facility] [employer] provides no warranty or guarantee of the accuracy or completeness of information in this document.
[2024-10-04 23:37] VITALS: BP 112/69; PULSE 64; TEMP 36.7; O2SAT 100; BMI 27.4
--- NOTE | 2024-10-05 00:03 | ED_ITS ---
HPI HPI - General Adult General Chief complaint: Wound/Laceration Stated complaint: FELL, POSS TORE STITCHES Time Seen by Provider: 10/04/24 23:05 Mode of arrival: walk-in Limitations: no limitations History of Present Illness HPI narrative: 24-year-old female presents to the emergency department for evaluation of her episiotomy sutures. She had vaginal delivery with episiotomy repair 8 days ago and 2 days ago she fell when she slipped on ice. She states she was told to come to the emergency department for evaluation. Related Data Home Medications ?Medication ?Instructions ?Recorded ?Confirmed No Known Home Medications 09/28/24 09/28/24 Previous Rx's ?Medication ?Instructions ?Recorded docusate sodium 100 mg capsule 100 mg PO BID #60 caps 09/28/24 glycerin-witch macy 12.5 %-50 % 1 pad topical Q2H PRN Pain #40 ea 09/28/24 topical pads (A.E.R. Witch Macy) ibuprofen 800 mg tablet 800 mg PO Q8H PRN Moderate Pain 09/28/24 #60 tabs Allergies Allergy/AdvReac Type Severity Reaction Status Date / Time No Known Drug Allergies Allergy Verified 10/04/24 23:41 Opioid HPI Opioid Management Most Recent Opioid Data: Last Pain Scale 1 09/28/24 13:53 09/28/24 Ur Phencyclidine Scrn Negative (NEGATIVE) 09/26/24 05:30 020 10/19 Review of Systems ROS Narrative A ten point review of systems is negative except as noted above. PFSH PFSH Medical History (Updated 10/05/24 @ 00:03 by Emiliano Joyce MD) Anxiety ?F41.9 - Anxiety disorder, unspecified (ICD-10) Hemorrhoids affecting or puerperium with complication Surgical History (Updated 04/16/23 @ 01:48 by Shaye Bowman) [place] teeth removed ?K08.409 - Partial loss of teeth, unspecified cause, unspecified class (ICD- 10) Family History (Updated 11/14/23 @ 11:44 by Angelita Moseley) Mother Family history of stroke Other Family history of diabetes mellitus Social History (Updated 11/14/23 @ 11:43 by Angelita Moseley) Within the past year, how often did you have a drink containing alcohol: never Score interpretation: A score less than 3 is consistent with normal alcohol consumption. Smoking status: Never smoker Non-prescribed substance use: denies use Highest level of school completed/degree received: high school graduate Little interest or pleasure in doing things: not at all Feeling down, depressed, or hopeless: not at all Exam Narrative Exam Narrative: Nurses note and vital signs reviewed and patient is not hypoxic. General: The patient appears well and in no apparent distress. Patient is resting comfortably on cart. Skin: Warm, dry, no pallor noted. There is no rash noted. Head: Normocephalic, atraumatic Eye: Normal conjunctiva, no drainage Ears, Nose, Mouth, and Throat: oral mucosa is moist. Nares patent. Cardiovascular: Regular Rate and Rhythm Respiratory: Patient is in no distress, no accessory muscle use Back: non-tender GI: Soft and nontender : The inferior portion of the episiotomy repair is intact. There is minimal opening at the most superior aspect of the episiotomy repair but there is no bleeding or drainage. Musculoskeletal: The patient has no evidence of calf tenderness, no pitting edema, symmetrical pulses noted bilaterally Neurological: A&O, normal speech Psychiatric: Cooperative Constitutional Vital Signs, click to edit/add: Last Vital Signs Temp 98.0 F 10/04/24 23:37 Pulse 64 10/04/24 23:37 Resp 18 10/04/24 23:37 BP 112/69 10/04/24 23:37 Pulse Ox 100 10/04/24 23:37 O2 Del Method Room Air 10/04/24 23:37 Course Vital Signs Vital signs: Vital Signs Temperature 98.0 F 10/04/24 23:37 Pulse Rate 64 10/04/24 23:37 Respiratory Rate 18 10/04/24 23:37 Blood Pressure 112/69 10/04/24 23:37 Pulse Oximetry 100 10/04/24 23:37 Oxygen Delivery Method Room Air 10/04/24 23:37 Temperature 98.0 F 10/04/24 23:37 Pulse Rate 64 10/04/24 23:37 Respiratory Rate 18 10/04/24 23:37 Blood Pressure 112/69 10/04/24 23:37 Pulse Oximetry 100 10/04/24 23:37 Oxygen Delivery Method Room Air 10/04/24 23:37 Medical Decision Making MDM Narrative Medical decision making narrative: At this point there is no indication for any procedural intervention. She will be discharged home and will follow-up promptly with her spray dry operator. I have explained that he will make the decision regarding further care from this point but there is no indication for emergent intervention. Differential Diagnosis Differential Diagnosis: Dehiscence Discharge Plan Discharge Chief Complaint: Wound/Laceration Clinical Impression: Wound dehiscence Patient Disposition: Home, Self-Care Time of Disposition Decision: 00:03 Condition: Good Mode of Transportation: Private Vehicle Prescriptions / Home Meds: No Action No Known Home Medications docusate sodium 100 mg Capsule 100 mg PO BID Qty: 60 1RF A.E.R. Witch Macy 12.5-50 % Pads, Medicated 1 pad topical Q2H PRN (Reason: Pain) Qty: 40 1RF ibuprofen 800 mg tablet 800 mg PO Q8H PRN (Reason: Moderate Pain) Qty: 60 0RF Print Language: Yakut Additional Instructions: Call Dr. Crockett's office in the morning Referrals: Delfin Galaviz MD [Primary Care Provider] - 1 week
--- NOTE | 2024-10-05 00:03 | SUR.HOLD ---
PT 8 DAYS VAGINAL . PT STATES 2 DAYS AGO FELL ON ICE AND FEAR SHE TORE HER APICEOTOMY. PT STATES HAS SOME INCREASED BLEEDING THAT DAY BUT HAS NOW RESOLVE
== END 2024-10-05 00:08 | disposition home or self-care (01) ==
PROVIDERS: Emergency Provider Emergency Medicine; PCP Family Medicine
DX: O90.1 Disruption of perineal obstetric wound (principal)
CPT/HCPCS: 99282

== ENCOUNTER 2025-01-19 11:58 | Outpatient (REF) | payer OTHER, SELFPAY ==
[2025-01-21 15:08] LABS: Age Gdln ACOG Testing Note (.); IGP, rfx Aptima HPV ASCU Note (.)
== END 2025-01-19 11:59 | disposition home or self-care (01) ==
LOC: LAB 11:58
PROVIDERS: PCP Family Medicine; Visit Provider Physician Assistant
DX: Z01.419 Encounter for gynecological examination (general) (routine) without abnormal findings (principal)
CPT/HCPCS: 88175

== ENCOUNTER 2025-04-12 14:50 | Outpatient (RCR) | payer OTHER, SELFPAY ==
--- OUTSIDE RECORDS SUMMARY | 2025-04-12 14:56 | XMS_ITS | Encounter Summary ---
Author Organization [facility] Address [address] [place] [address] Care Team Providers Care Market President Name Role Phone Delfin Galaviz MD Primary Care Provider + Jo Anderson Unavailable Encounter Details Date Type Department Care Team (Late st Contact Info) Description 02/24/2024 Abstract [facility] Henrry MARTINEZ [address] [facility] [place] [phone] Julius Crockett DO [address] [facility] [address] [place], [place] [id number] Social History Tobacco Use Types Packs/Day Years Used Date Smoking Tobacco: Never Smokeless Tobacco: Never Alcohol Use Standard Drinks/Week Comments Never 0 (1 standard drink = 0.6 oz pur e alcohol) Comments Yes Sex and Gender Information Value Date Recorded Sex Assigned at Female 11/06/2023 12:56 PM EDT Legal Sex Female 6:59 PM EDT Gender Identity Female 02/19/2024 4:22 PM EDT Sexual Orientation Straight 02/19/2024 4: 22 PM EDT documented as of this encounter Plan of Treatment Not on file documented as of this encounter Visit Diagnoses Not on filedocumented in this encounter Care Teams Market President Relationship Specialty Start Date End Date Delfin Galaviz MD [address] [place] [address] PCP - General Family Medicine 01/23/23 Jo Anderson PA [address] [facility] [address] [place], [place] [address] PCP - [facility] 11/24/23 documented as of this encounter
--- OUTSIDE RECORDS SUMMARY | 2025-04-12 14:56 | XMS_ITS | Encounter Summary ---
Author Organization [facility] Address [address] [place] [address] Care Team Providers Care Newspaper Carrier Name Role Phone Delfin Galaviz MD Primary Care Provider + Jo Anderson Unavailable Encounter Details Date Type Department Care Team (Late st Contact Info) Description 03/09/2024 Abstract [facility] [address] [place] [phone] Reina Pedersen LPN [address] [place] [address] [place] [address] Social History Tobacco Use Types Packs/Day Years [...] on filedocumented in this encounter Care Teams Newspaper Carrier Relationship Specialty Start Date End Date Delfin Galaviz MD [address] [place] [address] PCP - General Family Medicine 01/23/23 Jo Anderson PA [address] [facility] [address] [place], [place] [address] PCP - [facility] 11/24/23 documented as of this encounter
--- OUTSIDE RECORDS SUMMARY | 2025-04-12 14:56 | XMS_ITS | Encounter Summary ---
Author Organization [facility] Address [address] [place] [address] Care Team Providers Care Movement Therapist Name Role Phone Delfin Galaviz MD Primary Care Provider [phone] Jo Anderson Unavailable Encounter Details Date Type Department Care Team (Late st Contact Info) Description 02/07/2025 Orders Only [facility] Henrry MARTINEZ [address] [place] [address] [place] [phone] Za Campbell MA Social History Tobacco Use Types Packs/Day Years Used Date Smoking Tobacco: Never Smokeless Tobacco: Never Alcohol Use Standard Drinks/Week Comments Never 0 (1 standard drink = 0.6 oz pur e alcohol) Comments Unknown Sex and Gender Information Value Date Recorded Sex Assigned at Female 11/06/2023 12:56 PM EDT Legal Sex Female 6:59 PM EDT Gender Identity Female 02/19/2024 4:22 PM EDT Sexual Orientation Straight 02/19/2024 4: 22 PM EDT documented as of this encounter Plan of Treatment Not on file documented as of this encounter Procedures Procedure Name Priority Date/Time Associated Diagnosis Comments PAP SMEAR Routine 01/19/2025 12:00 AM EDT documented in this encounter Results * Pap Smear (01/19/2025 12:00 AM EDT) Swab Cervical swab / Unknown us [facility] ORDERABLES Final Re sult EXTERNAL LAB documented in this encounter Visit Diagnoses Not on filedocumented in this encounter Care Teams Movement Therapist Relationship Specialty Start Date End Date Delfin Galaviz MD [address] [facility] [place] [address] PCP - General Family Medicine 01/23/23 Jo Anderson PA [address] [place] [address] [place] [address] PCP - [facility] 11/24/23 documented as of this encounter
--- OUTSIDE RECORDS SUMMARY | 2025-04-12 14:56 | XMS_ITS | Encounter Summary ---
Author Organization [facility] Address [address] [place] [address] Care Team Providers Care Bill Recapitulation Clerk Name Role Phone Delfin Galaviz MD Primary Care Provider [phone] Jo Harrison Unavailable Encounter Details Date Type Department Care Team (Late st Contact Info) Description 07/28/2024 Clinisync Result Encounter [facility] External Department Unsolicited Jo Harrison PA [address] [place] [address] [place] [phone] Social History Tobacco Use Types Packs/Day Years [...] Procedure Name Priority Date/Time Associated Diagnosis Comments US OB GROWTH 07/28/2024 12:32 PM EST documented in this encounter Results * US OB GROWTH (07/28/2024 12:32 PM EST) Anatomical Region Laterality Modality Other 07/28/2024 12:3 2 PM EST Narrative 07/28/2024 12:35 PM EST The [address] [address] Ultrasound Report Signed Patient: ROQUE PIERSON MR#: [id number] : 2000 Acct:[id number] Age/Sex: 24 / F ADM Date: 07/28/24 Loc: RAD Attending Dr: Jo Harrison Ordering Physician: Jo Harrison Date of Service: 07/28/24 Procedure(s): US OB growth Accession Number(s): [id number] cc: Jo Harrison; Delfin Galaviz M.D. [address] [address] Patient Name: ROQUE PIERSON MRN: [id number] date: 2000 Sex: F Assigned Patient Location: [facility] Current Patient Location: [facility] Accession/Order Number: [id number] Exam Date: 07/28/2024 10:35 Report Date: 07/28/2024 12:32 At the request of: JO HARRISON Procedure: US OB growth EXAMINATION: US OB growth HISTORY: Size Inconsistent With Dates COMPARISON: No relevant comparison available. TECHNIQUE: Transabdominal sonographic examination was performed for obstetrical and evaluation. FINDINGS: Number: 1 Heart Rate: 137.06 bpm H.B. /min Amniotic Fluid Volume: 17.5 cm, largest pocket 6.5 cm position: Breech presentation, longitudinal lie BIOMETRY: BPD: 8.19 cm; 32 weeks 6 days; 89.50 % HC: 29.95 cm; 33 weeks 1 day; 74.50 % AC: 26.09 cm; 30 weeks 2 days; 24.30 % FL: 5.56 cm; 29 weeks 2 days; 4.70 % EFW:1567.40 g; 20.40 %, 3 lbs. 7 oz. FL/AC: 21.31 FL/BPD: 67.88 HC/AC: 1.15 GESTATIONAL AGE: Age by EDC: 31 weeks 0 days [place] by EDC: 2024-09-29 Age by current US: 31 weeks 3 days [place] by current US: 2024-09-26 US/US OB growth IMPRESSION: Femur length at the 5th percentile, otherwise normal interval growth *Reference: AIUM Practice Guideline for the performance of Obstetric Ultrasound Examinations, May 25, 2007. Electronically authenticated by: ALFRED BERGERON Date: 07/28/2024 12:32 Dictated By: Alfred Bergeron M.D. Signed By: 07/28/24 1235 DD/ 1232 TD/TT: Hotel Lobby Concierge: Procedure Note Radiology, Radiologist, MD - 07/28/2024 [place] [address] Ultrasound Report Signed Patient: ROQUE PIERSON MMR#: [id number] : 2000Acct:[id number] Age/Sex: 24 FADM Date: 07/28/24 Loc: [facility] Attending Dr: Jo Harrison Ordering Physician: Jo Harrison Date of Service: 07/28/24 Procedure(s): US OB growth Accession Number(s): [id number] cc: Jo Harrison; Delfin Galaviz M.D. The [place] [id number] Patient Name: ROQUE PIERSON MRN: [id number] date: 2000 Sex: F Assigned Patient Location: [facility] Current Patient Location: [facility] Accession/Order Number: [id number] Exam Date: 07/28/2024 10:35 Report Date: 07/28/2024 12:32 At the request of: JO HARRISON Procedure: US OB growth EXAMINATION: US OB growth HISTORY: Size Inconsistent With Dates COMPARISON: No relevant comparison available. TECHNIQUE: Transabdominal sonographic examination was performed for obstetrical and evaluation. FINDINGS: Number: 1 Heart Rate: 137.06 bpm H.B. /min Amniotic Fluid Volume: 17.5 cm, largest pocket 6.5 cm position: Breech presentation, longitudinal lie BIOMETRY: BPD: 8.19 cm; 32 weeks 6 days; 89.50 % HC: 29.95 cm; 33 weeks 1 day; 74.50 % AC: 26.09 cm; 30 weeks 2 days; 24.30 % FL: 5.56 cm; 29 weeks 2 days; 4.70 % EFW:1567.40 g; 20.40 %, 3 lbs. 7 oz. FL/AC: 21.31 FL/BPD: 67.88 HC/AC: 1.15 GESTATIONAL AGE: Age by EDC: 31 weeks 0 days [place] by EDC: 2024-09-29 Age by current US: 31 weeks 3 days [place] by current US: 2024-09-26 US/US OB growth IMPRESSION: Femur length at the 5th percentile, otherwise normal interval growth *Reference: AIUM Practice Guideline for the performance of Obstetric Ultrasound Examinations, May 25, 2007. Electronically authenticated by: ALFRED BERGERON Date: 07/28/2024 12:32 Dictated By: Alfred Bergeron M.D. Signed By:07/28/24 1235 DD/ 1232 TD/TT: Hotel Lobby Concierge: us [facility] Final Result documented in this encounter Visit Diagnoses Not on filedocumented in this encounter Care Teams Bill Recapitulation Clerk Relationship Specialty Start Date End Date Delfin Galaviz MD [address] [facility] [place] [address] PCP - General Family Medicine 01/23/23 Jo Harrison PA [address] [place] [address] [place] [address] PCP - [facility] 11/24/23 documented as of this encounter
--- OUTSIDE RECORDS SUMMARY | 2025-04-12 14:56 | XMS_ITS | Encounter Summary ---
Author Organization [facility] Address [address] [place] [address] Care Team Providers Care Director Of Culture Name Role Phone Delfin Galaivz MD Primary Care Provider + Jo Anderson Unavailable Encounter Details Date Type Department Care Team (Late st Contact Info) Description 07/01/2024 Abstract [facility] [address] [place] [phone] Jo Anderson PA [address] [facility] [address] [place], [place] [phone] Social History Tobacco Use Types Packs/Day Years [...] on filedocumented in this encounter Care Teams Director Of Culture Relationship Specialty Start Date End Date Delfin Galaviz MD [address] [place] [address] PCP - General Family Medicine 01/23/23 oJ Anderson PA [address] [place] [address] Dr [place], [facility] PCP - [facility] 11/24/23 documented as of this encounter
--- OUTSIDE RECORDS SUMMARY | 2025-04-12 14:56 | XMS_ITS | Encounter Summary ---
Author Organization [facility] Address [address] [place] [address] Care Team Providers Care Data Mining Analyst Name Role Phone Delfin Galaviz MD Primary Care Provider [phone] Jo Anderson Unavailable Encounter Details Date Type Department Care Team (Late st Contact Info) Description 04/12/2025 Orders Only [facility] [place] [facility] [address] [place] [address] [place] [phone] Dionne Cannon LPN Missed menses; Positive urine test ([facility]) Social History Tobacco Use Types Packs/Day Years [...] PM EDT documented as of this encounter Progress Notes * Dionne Cannon LPN - 04/12/2025 2:36 PM EDT LMP: 03/25/2025 patient to have labs drawn and will reach out to office for results. --ss patient voiced faint positive UPT documented in this encounter Plan of Treatment Scheduled Orders Name Type Priority Associated Diagnoses Orde r Schedule hCG, quantitative, Lab Routine Missed menses Positive urine test ([facility]) Expected: 04/12/2025 (Approximate), Expires: 04/12/2026 documented as of this encounter Visit Diagnoses Diagnosis Missed menses Positive urine test ([facility]) documented in this encounter Care Teams Data Mining Analyst Relationship Specialty Start Date End Date Delfin Galaviz MD [address] [facility] [place] [address] PCP - General Family Medicine 01/23/23 Jo Anderson PA [address] [place] [address] [place] [address] PCP - [facility] 11/24/23 documented as of this encounter
--- OUTSIDE RECORDS SUMMARY | 2025-04-12 14:56 | XMS_ITS | Encounter Summary ---
Author Organization [facility] Address [address] [place] [address] Care Team Providers Care Breakfast And Room Attendant Name Role Phone Delfin Galaviz MD Primary Care Provider + Jo Anderson Unavailable Encounter Details Date Type Department Care Team (Late st Contact Info) Description 09/06/2024 Abstract [facility] Henrry MARTINEZ [address] [facility] [place] [phone] Julius Crockett DO [address] [facility] [address] [place], [place] [phone] Social History Tobacco Use Types Packs/Day Years [...] on filedocumented in this encounter Care Teams Breakfast And Room Attendant Relationship Specialty Start Date End Date Delfin Galaviz MD [address] [place] [address] PCP - General Family Medicine 01/23/23 Jo Anderson PA [address] [facility] [address] [place], [place] [address] PCP - [facility] 11/24/23 documented as of this encounter
--- OUTSIDE RECORDS SUMMARY | 2025-04-12 14:56 | XMS_ITS | Encounter Summary ---
Author Organization [facility] Address [address] [place] [address] Care Team Providers Care Director Of Blood Name Role Phone Delfin Galaviz MD Primary Care Provider [phone] Jo Harrison Unavailable Encounter Details Date Type Department Care Team (Late st Contact Info) Description 05/12/2024 Clinisync Result Encounter [facility] External Department Unsolicited Jo Harrison PA [address] [place] [address] Dr [place] [phone] Social History Tobacco Use Types Packs/Day Years [...] Priority Date/Time Associated Diagnosis Comments US OB CERVICAL LENGTH 05/12/2024 11:54 AM EDT documented in this encounter Results * US OB CERVICAL LENGTH (05/12/2024 11:54 AM EDT) Anatomical Region Laterality Modality Other 05/12/2024 11:5 4 AM EDT Narrative 05/12/2024 11:57 AM EDT [address] [address] Ultrasound Report Signed Patient: ROQUE PIERSON MR#: [id number] : 2000 Acct:[id number] Age/Sex: 23 / F ADM Date: 05/12/24 Loc: [facility] Attending Dr: Jo Harrison Ordering Physician: Jo Harrison Date of Service: 05/12/24 Procedure(s): US OB cervical length Accession Number(s): [id number] cc: Jo Harrison; Delfin Galaviz M.D. [address] [address] Patient Name: ROQUE PIERSON MRN: [id number] date: 2000 Sex: F Assigned Patient Location: [facility] Current Patient Location: [facility] Accession/Order Number: [id number] Exam Date: 05/12/2024 10:07 Report Date: 05/12/2024 11:54 At the request of: JO HARRISON Procedure: US OB cervical length EXAMINATION: US OB anatomy, US OB cervical length HISTORY: ANATOMY COMPARISON: No relevant comparison available. TECHNIQUE: Transabdominal sonographic examination was performed for obstetrical and evaluation. FINDINGS: Number: 1 Heart Rate: 151 bpm H.B. /min Amniotic Fluid Volume: Subjectively normal position: Cephalic presentation Placental Location: Anterior. The placental edge is 6.8 cm from the internal cervical os Cervix Length: 4.63 cm , closed Normal anatomy: Lateral ventricles, cerebellum, posterior fossa, nose, lips, orbits, four-chamber heart, RVOT, LVOT, diaphragm, stomach, kidneys, abdominal cord insertion, bladder, umbilical arteries, three-vessel cord, spine, extremities BIOMETRY: BPD: 5.19 cm; 21 weeks 5 days; 96.90 % HC: 18.41 cm; 20 weeks 5 days; 76.70 % AC: 16.06 cm; 21 weeks 1 day; 80.50 % FL: 3.32 cm; 20 weeks 3 days; 56.60 % EFW:427.12 g; 88.40 %, 13 ounces FL/AC: 20.67 FL/BPD: 63.97 HC/AC: 1.15 GESTATIONAL AGE: Age by EDC: 20 weeks 0 days [place] by EDC: 2024-09-29 Age by current US: 21 weeks 0 days [place] by current US: 2024-09-22 US/US OB cervical length IMPRESSION: Normal anatomy scan Closed cervix measuring 4.6 cm in length *Reference: AIUM Practice Guideline for the performance of Obstetric Ultrasound Examinations, May 25, 2007. Electronically authenticated by: ALFRED BERGERON Date: 05/12/2024 11:54 Dictated By: Alfred Bergeron M.D. Signed By: 05/12/24 1157 DD/ 1154 TD/TT: Jail Manager: Procedure Note Radiology, Radiologist, - 05/12/2024 [place] [address] Ultrasound Report Signed Patient: ROQUE PIERSON MMR#: [id number] : 2000Acct:[id number] Age/Sex: 23 / FADM Date: 05/12/24 Loc: [facility] Attending Dr: Jo Harrison Ordering Physician: Jo Harrison Date of Service: 05/12/24 Procedure(s): US OB cervical length Accession Number(s): [id number] cc: Jo Harrison; Delfin Galaviz M.D. The [place] [phone] Patient Name: ROQUE PIERSON MRN: [id number] date: 2000 Sex: F Assigned Patient [facility]: [facility] Current Patient [facility]: [facility] Accession/Order Number: [id number] Exam Date: 05/12/2024 10:07 Report Date: 05/12/2024 11:54 At the request of: JO HARRISON Procedure: US OB cervical length EXAMINATION: US OB anatomy, US OB cervical length HISTORY: ANATOMY COMPARISON: No relevant comparison available. TECHNIQUE: Transabdominal sonographic examination was performed for obstetrical and evaluation. FINDINGS: Number: 1 Heart Rate: 151 bpm H.B. /min Amniotic Fluid Volume: Subjectively normal position: Cephalic presentation Placental Location: Anterior. The placental edge is 6.8 cm from theinternal cervical os Cervix Length: 4.63 cm , closed Normal anatomy: Lateral ventricles, cerebellum, posterior fossa, nose,lips, orbits, four-chamber heart, RVOT, LVOT, diaphragm, stomach, kidneys,abdominal cord insertion, bladder, umbilical arteries, three-vessel cord, spine, extremities BIOMETRY: BPD: 5.19 cm; 21 weeks 5 days; 96.90 % HC: 18.41 cm; 20 weeks 5 days; 76.70 % AC: 16.06 cm; 21 weeks 1 day; 80.50 % FL: 3.32 cm; 20 weeks 3 days; 56.60 % EFW:427.12 g; 88.40 %, 13 ounces FL/AC: 20.67 FL/BPD: 63.97 HC/AC: 1.15 GESTATIONAL AGE: Age by EDC: 20 weeks 0 days [place] by EDC: 2024-09-29 Age by current US: 21 weeks 0 days [place] by current US: 2024-09-22 US/US OB cervical length IMPRESSION: Normal anatomy scan Closed cervix measuring 4.6 cm in length *Reference: AIUM Practice Guideline for the performance of Obstetric Ultrasound Examinations, May 25, 2007. Electronically authenticated by: ALFRED BERGERON Date: 05/12/2024 11:54 Dictated By: Alfred Bergeron M.D. Signed By:05/12/24 1157 DD/ 1154 TD/TT: Jail Manager: us [facility] Final Result documented in this encounter Visit Diagnoses Not on filedocumented in this encounter Care Teams Director Of Blood Relationship Specialty Start Date End Date Delfin Galaviz MD [address] [facility] [place] [address] PCP - General Family Medicine 01/23/23 Jo Harrison PA [address] [place] [address] [place] [address] PCP - [facility] 11/24/23 documented as of this encounter
--- OUTSIDE RECORDS SUMMARY | 2025-04-12 14:56 | XMS_ITS | Encounter Summary ---
Author Organization [facility] Address [address] [place] [address] Care Team Providers Care Fire Boss Name Role Phone Delfin Galaviz MD Primary Care Provider [phone] Jo Anderson Unavailable Encounter Details Date Type Department Care Team (Late st Contact Info) Description 04/21/2024 Orders Only [facility] [address] [place] [address] Riena Pedersen LPN [address] [place] [phone] Social History Tobacco Use Types Packs/Day Years [...] Date/Time Associated Diagnosis Comments PAP SMEAR Routine 01/12/2024 12:00 AM EDT documented in this encounter Results * Pap Smear (01/12/2024 12:00 AM EDT) Swab Cervical swab / Unknown us Keira Nurse [facility] LAB CYTOLOGY ORDERABLES Final Result EXTERNAL LAB documented in this encounter Visit Diagnoses Not on filedocumented in this encounter Care Teams Fire Boss Relationship Specialty Start Date End Date Delfin Galaviz MD [address] [facility] [place] [address] PCP - General Family Medicine 01/23/23 Jo Anderson PA [address] [facility] [place] [address] PCP - [facility] 11/24/23 documented as of this encounter
--- OUTSIDE RECORDS SUMMARY | 2025-04-12 14:56 | XMS_ITS | Encounter Summary ---
Author Organization [facility] Address [address] [place] [address] Care Team Providers Care Towel Inspector Name Role Phone Delfin Galaviz MD Primary Care Provider + Jo Anderson Unavailable Encounter Details Date Type Department Care Team (Late st Contact Info) Description 09/26/2024 Abstract [facility] MARTINEZ [address] [facility] [place] [phone] Julius Crockett DO [address] [facility] [address] [place], [place] [phone] Social History Tobacco Use Types Packs/Day Years [...] on filedocumented in this encounter Care Teams Towel Inspector Relationship Specialty Start Date End Date Delfin Galaviz MD [address] [place] [address] PCP - General Family Medicine 01/23/23 Jo Anderson PA [address] [facility] [address] [place], [place] [address] PCP - [facility] 11/24/23 documented as of this encounter
--- OUTSIDE RECORDS SUMMARY | 2025-04-12 14:56 | XMS_ITS | Clinical Summary ---
Author Organization [facility] Address [address] [place] [address] Care Team Providers Care Aircraft Maintenance Director Name Role Phone Delfin Galaviz MD Primary Care Provider [phone] Jo Anderson Unavailable Allergies No known active allergies Medications citalopram (CeleXA) 40 MG tabletIndication s:Post depression Take 1 tablet (40 mg) by mouth Daily 30 tablet 5 01/19/2025 Active Active Problems Problem Noted Date Diagnosed Date Nausea and vomiting 03/10/2023 Other specified re lated conditions, unspecified trimester ([facility]) 03/10/2023 Unspecified abdominal pain 03/10/2023 Encounters Date Type Department Care Team Description 04/12/2025 Orders Only [facility] Hen[facility] MARTINEZ [address] [place] [address] Dionne Cannon LPN Missed menses; Positive urine test ([facility]) 02/07/2025 Orders Only [facility] Hen[facility] MARTINEZ [address] [place] [address] Za Campbell MA 01/19/2025 10:00 AM EDT Office Visit [facility] MARTINEZ [address] [place] [address] Jo Anderson PA Post depression (Primary Dx); Well woman exam with routine gynecological exam 01/19/2025 Clinisync Result Encounter [facility] External Department Unsolicited Jo Anderson PA 01/19/2025 Bamboo flowsheet [facility] Henrry OBSALOMÓN [address] [place] [address] [place] [address] Jo Anderson PA from Last 3 Months Family History Medical History Relation Name Comments Diabetes type II Mother reactive airway Son Relation Name Status Comments Father Mother Alive Sister 1 Alive Sister 2 Alive Son Social History Tobacco Use Types Packs/Day Years Used Date Smoking Tobacco: Never Smokeless Tobacco: Never Tobacco Cessation:Counseling Given: Not Answered Alcohol Use Standard Drinks/Week Comments Never 0 (1 standard drink = 0.6 oz pur e alcohol) Comments Unknown Sex and Gender Information Value Date Recorded Sex Assigned at Female 11/06/2023 12:56 PM EDT Legal Sex Female 6:59 PM EDT Gender Identity Female 02/19/2024 4:22 PM EDT Sexual Orientation Straight 02/19/2024 4: 22 PM EDT Last Filed Vital Signs Vital Sign Reading Time Taken Comments Blood Pressure 100/62 01/19/2025 10:08 AM EDT Pulse - - Temperature - - Respiratory Rate - - Oxygen Saturation - - Inhaled Oxygen Concentration - - Weight 83.8 kg (184 lb 12.8 oz) 025 10:08 AM EDT Height 170.2 cm (5' 7 ) 01/12/2024 11:0 7 AM EDT Body Mass Index 28.94 01/12/2024 11:07 AM EDT Plan of Treatment Health Maintenance Due Date Last Done Comments Influenza Vaccine (#1) 2025 07/29/2005 Procedures Procedure Name Priority Date/Time Associated Diagnosis Comments IGP,APTIMA HPV,AGE GDLN Routine 01/19/2025 10:01 AM EDT PAP SMEAR Routine 01/19/2025 12:00 AM EDT from Last 3 Months Results * IGP,APTIMA HPV,AGE GDLN (01/19/2025 10:01 AM EDT) AGE GDLN ACOG TESTING Note . TB Comment: TESTS RESULT FLAG UNITS REF RANGE LAB Clinician Provided Cytology Information Source.............Cervix;Endocervix No. of containers..01 ThinPrep Vial Age Serge SUN Asha... FLAG LEGEND: L-Low Normal,H-High Normal,LL-Alert Low,HH-Alert High <-Panic Low,>-Panic High,A-Abnormal,AA-Critical Abnormal Performed at: 01 =[facility] [address] [place] [address] Cinthia Caceres MD, IGP, RFX APTIMA HPV ASCU Note . [facility] Comment: TESTS RESULT FLAG UNITS REF RANGE LAB DIAGNOSIS: 02 NEGATIVE FOR INTRAEPITHELIAL LESION OR MALIGNANCY. Specimen adequacy: 02 Satisfactory for evaluation. No endocervical component is identified. Performed by: 02 Scarlett Batres Fire Marshal ([facility]) . 02 Note: Note 02 The Pap smear is a screening test designed to aid in the detection of premalignant and malignant conditions of the uterine cervix. It is not a diagnostic procedure and should not be used as the sole means of detecting cervical cancer. Both false-positive and false-negative reports do occur. Test Methodology: Note 02 This liquid based ThinPrep(R) pap test was screened with the use of an image guided system. . 02 The HPV DNA reflex criteria were not met with this specimen result therefore, no HPV testing was performed. FLAG LEGEND: L-Low Normal,H-High Normal,LL-Alert Low,HH-Alert High <-Panic Low,>-Panic High,A-Abnormal,AA-Critical Abnormal Performed at: [address] [address] Cinthia Caceres MD, Performed at: = - [facility] [id number] Food And Drug Research Scientist: Cinthia Caceres MD, Phone: [phone] Performed at: [address] [id number] Food And Drug Research Scientist: Cinthia Caceres MD, Phone: [phone] 01/19/2025 10:0 1 AM EDT 01/19/2025 11:59 AM EDT Narrative [facility] - 01/21/2025 3:08 PM EDT BRUSH-SPATULA CERVIX ENDOCERVIX Jo DENNIS LAB BLOOD ORDERABLES Final Resul t Performing Organization Address [facility]/ZIP Co de Phone Number CLINFlinto TB * Pap Smear (01/19/2025 12:00 AM EDT) Swab Cervical swab / Unknown Jo DENNIS LAB CYTOLOGY ORDERABLES Final Re sult Performing Organization Address City/[facility]/ZIP Co de Phone Number EXTERNAL LAB from Last 3 Months Insurance [employer] Care Teams Aircraft Maintenance Director Relationship Specialty Start Date End Date Delfin Galaviz MD [address] [place] [address] [place] [address] PCP - General Family Medicine 01/23/23 Jo Anderson PA [address] [place] [address] [place] [address] PCP - [facility] 11/24/23
--- OUTSIDE RECORDS SUMMARY | 2025-04-12 14:56 | XMS_ITS | Encounter Summary ---
Author Organization [facility] Address [address] [place] [address] Care Team Providers Care Charge Account Identification Clerk Name Role Phone Delfin Galaviz MD Primary Care Provider [phone] Jo Anderson Unavailable Encounter Details Date Type Department Care Team (Late st Contact Info) Description 03/10/2024 Clinisync Result Encounter [facility] External Department Unsolicited Rekha Crockett, DO [address] [facility] En[place] [phone] Social History Tobacco Use Types Packs/Day Years [...] Priority Date/Time Associated Diagnosis Comments US OB L= 14 WEEKS FETUS 03/10/2024 1:11 PM EDT documented in this encounter Results * US OB L= 14 WEEKS FETUS (03/10/2024 1:11 PM EDT) Anatomical Region Laterality Modality Other 03/10/2024 1:11 PM EDT Narrative 03/10/2024 1:13 PM EDT [address] [address] Ultrasound Report Signed Patient: ROQUE PIERSON MR#: [id number] : 2000 Acct:[id number] Age/Sex: 23 / F ADM Date: 03/10/24 Loc: US Attending Dr: Rekha Crockett D.O. Ordering Physician: Rekha Crockett D.O. Date of Service: 03/10/24 Procedure(s): US OB <= 14 weeks fetus Accession Number(s): [id number] cc: Rekha Crockett D.O.; Delfin Galaviz M.D. [address] [address] Patient Name: ROQUE PIERSON MRN: [id number] date: 2000 Sex: F Assigned Patient Location: US Current Patient Location: US Accession/Order Number: [id number] Exam Date: 03/10/2024 12:43 Report Date: 03/10/2024 13:11 At the request of: REKHA CROCKETT Procedure: US OB <= 14 weeks fetus EXAMINATION: US OB <= 14 weeks fetus HISTORY: with uncertain viability O36.80X0 COMPARISON: Ultrasound OB 02/23/2024 FINDINGS: GESTATIONAL SAC: Present and normal appearing. YOLK SAC: Present and normal appearing. POLE: Present and normal appearing. CARDIAC: Present. UTERUS: Normal size and appearance. OVARIES: Right: Not seen. Left: Not seen. CERVIX: 3.6 cm in length and closed. CUL-DE-SAC: Normal. OTHER: None. AGE BY LMP: 11 weeks 0 days BENTON BY LMP: 09/29/2024 AGE BY US CRL: 10 weeks 5 days BENTON BY US CRL: 10/01/2024 US/US OB <= 14 weeks fetus IMPRESSION: 1. Single live intrauterine with growth detailed above. Electronically authenticated by: SAMY MORA Date: 03/10/2024 13:11 Dictated By: Samy Mora M.D. Signed By: 03/10/24 1313 DD/ 1311 TD/TT: University Counselor: Procedure Note Radiology, Radiologist, - 03/10/2024 [place] [address] Ultrasound Report Signed Patient: ROQUE PIERSON MMR#: [id number] : 2000Acct:[id number] Age/Sex: 23 / FADM Date: 03/10/24 Loc: US Attending Dr: Rekha Crockett D.O. Ordering Physician: Rekha Crockett D.O. Date of Service: 03/10/24 Procedure(s): US OB <= 14 weeks fetus Accession Number(s): [id number] cc: Rekha Crockett D.O.; Delfin Galaviz M.D. The [place] [id number] Patient Name: ROQUE PIERSON MRN: [id number] date: 2000 Sex: F Assigned Patient Location: US Current Patient Location: US Accession/Order Number: [id number] Exam Date: 03/10/2024 12:43 Report Date: 03/10/2024 13:11 At the request of: REKHA CROCKETT Procedure: US OB <= 14 weeks fetus EXAMINATION: US OB <= 14 weeks fetus HISTORY: with uncertain viability O36.80X0 COMPARISON: Ultrasound OB 02/23/2024 FINDINGS: GESTATIONAL SAC: Present and normal appearing. YOLK SAC: Present and normal appearing. POLE: Present and normal appearing. CARDIAC: Present. UTERUS: Normal size and appearance. OVARIES: Right: Not seen. Left: Not seen. CERVIX: 3.6 cm in length and closed. CUL-DE-SAC: Normal. OTHER: None. AGE BY LMP: 11 weeks 0 days BENOTN BY LMP: 09/29/2024 AGE BY US CRL: 10 weeks 5 days BENTON BY US CRL: 10/01/2024 US/US OB <= 14 weeks fetus IMPRESSION: 1. Single live intrauterine with growth detailed above. Electronically authenticated by: SAMY MORA Date: 03/10/2024 13:11 Dictated By: Samy Mora M.D. Signed By:03/10/24 1313 DD/ 1311 TD/TT: University Counselor: us Rekha Keira DO [facility] Final Result documented in this encounter Visit Diagnoses Not on filedocumented in this encounter Care Teams Charge Account Identification Clerk Relationship Specialty Start Date End Date Delfin Galaviz MD [address] [facility] [place] [address] PCP - General Family Medicine 01/23/23 Jo Anderson PA [address] [facility] [place] [address] PCP - [facility] 11/24/23 documented as of this encounter
--- OUTSIDE RECORDS SUMMARY | 2025-04-12 14:56 | XMS_ITS | Encounter Summary ---
Author Organization [facility] Address [address] [place] [address] Care Team Providers Care Histologist Technologist Name Role Phone Delfin Galaviz MD Primary Care Provider + Jo Anderson Unavailable Encounter Details Date Type Department Care Team (Late st Contact Info) Description 07/02/2024 Abstract [facility] MARTINEZ [address] [facility] [place] [phone] Jo Anderson PA [address] [facility] [address] [place], [place] [address] Social History Tobacco Use Types Packs/Day Years [...] on filedocumented in this encounter Care Teams Histologist Technologist Relationship Specialty Start Date End Date Delfin Galaviz MD [address] [place] [address] PCP - General Family Medicine 01/23/23 Jo Anderson PA [address] [place] [address] Dr [place], [facility] PCP - [facility] 11/24/23 documented as of this encounter
--- OUTSIDE RECORDS SUMMARY | 2025-04-12 14:56 | XMS_ITS | Encounter Summary ---
Author Organization [facility] Address [address] [place] [address] Care Team Providers Care Terrazzo Worker Helper Name Role Phone Delfin Galaviz MD Primary Care Provider + Jo Anderson Unavailable Encounter Details Date Type Department Care Team (Late st Contact Info) Description 05/27/2024 Abstract [facility] Henrry MARTINEZ [address] [facility] [place] [phone] Julius Crockett DO [address] [facility] [address] [place], [place] [phone] Social History Tobacco Use Types Packs/Day Years [...] on filedocumented in this encounter Care Teams Terrazzo Worker Helper Relationship Specialty Start Date End Date Delfin Galaviz MD [address] [place] [address] PCP - General Family Medicine 01/23/23 Jo Anderson PA [address] [facility] [address] [place], [place] [address] PCP - [facility] 11/24/23 documented as of this encounter
--- OUTSIDE RECORDS SUMMARY | 2025-04-12 14:56 | XMS_ITS | Encounter Summary ---
Author Organization [facility] Address [address] [place] [address] Care Team Providers Care Foot Press Operator Name Role Phone Delfin Galaviz MD Primary Care Provider [phone] Jo Anderson Unavailable Encounter Details Date Type Department Care Team (Late st Contact Info) Description 10/16/2023 Clinisync Result Encounter NOMS External Department Unsolicited Rekha Crockett, DO 102 [facility] Enio Cintron [place] [phone] Social History Tobacco Use Types Packs/Day Years [...] Priority Date/Time Associated Diagnosis Comments US OB TRANSVAGINAL 10/16/2023 2: 43 PM EST documented in this encounter Results * US OB TRANSVAGINAL (10/16/2023 2:43 PM EST) Anatomical Region Laterality Modality Other 10/16/2023 2:43 PM EST Narrative 10/16/2023 2:45 PM EST The [address] [address] Ultrasound Report Signed Patient: ROQUE PIERSON MR#: [id number] : 2000 Acct:[id number] Age/Sex: 23 / F ADM Date: 10/16/23 Loc: NOMS Attending Dr: Rekha Crockett D.O. Ordering Physician: Rekha Crockett D.O. Date of Service: 10/16/23 Procedure(s): US OB transvaginal Accession Number(s): [id number] cc: Rekha Crockett D.O.; Delfin Galaviz M.D. [place] [id number] Patient Name: ROQUE PIERSON MRN: [id number] date: 2000 Sex: F Assigned Patient Location: [facility] Current Patient Location: [facility] Accession/Order Number: [id number] Exam Date: 10/16/2023 12:17 Report Date: 10/16/2023 14:43 At the request of: REKHA CROCKETT Procedure: US OB transvaginal EXAMINATION: US OB transvaginal HISTORY: MISSED MENSES COMPARISON: No relevant comparison available. FINDINGS: GESTATIONAL SAC: Single gestational sac with 2 amniotic sacs YOLK SAC: Present x2 POLE: Present x2 CARDIAC: Present x2 UTERUS: Normal size and appearance. OVARIES: Right: Normal. Left: Not seen. CERVIX: 4.9 cm in length and closed. CUL-DE-SAC: Normal. OTHER: None. AGE BY LMP: 8 weeks 3 days BENTON BY LMP: 05/24/2024 AGE BY US CRL: 8 weeks 1 day BENTON BY US CRL: 05/26/2024 US/US OB transvaginal IMPRESSION: 1. Monochorionic diamniotic twin 8 weeks 1 day by today's ultrasound. Electronically authenticated by: SAMY MORA Date: 10/16/2023 14:43 Dictated By: Samy Mora M.D. Signed By: 10/16/23 1445 DD/ 1443 TD/TT: Shackler: Procedure Note Radiology, Radiologist, - 10/16/2023 [place] [address] Ultrasound Report Signed Patient: ROQUE PIERSON MMR#: [id number] : 2000Acct:[id number] Age/Sex: Date: 10/16/23 Loc: NOMS Attending Dr: Rekha Crockett D.O. Ordering Physician: Rekha Crockett D.O. Date of Service: 10/16/23 Procedure(s): US OB transvaginal Accession Number(s): [id number] cc: Rekha Crockett D.O.; Delfin Galaviz M.D. The [address] [address] Patient Name: ROQUE PIERSON MRN: [id number] date: 2000 Sex: F Assigned Patient Location: [facility] Current Patient Location: [facility] Accession/Order Number: [id number] Exam Date: 10/16/2023 12:17 Report Date: 10/16/2023 14:43 At the request of: REKHA CROCKETT Procedure: US OB transvaginal EXAMINATION: US OB transvaginal HISTORY: MISSED MENSES COMPARISON: No relevant comparison available. FINDINGS: GESTATIONAL SAC: Single gestational sac with 2 amniotic sacs YOLK SAC: Present x2 POLE: Present x2 CARDIAC: Present x2 UTERUS: Normal size and appearance. OVARIES: Right: Normal. Left: Not seen. CERVIX: 4.9 cm in length and closed. CUL-DE-SAC: Normal. OTHER: None. AGE BY LMP: 8 weeks 3 days BENTON BY LMP: 05/24/2024 AGE BY US CRL: 8 weeks 1 day BENT[place] BY US CRL: 05/26/2024 US/US OB transvaginal IMPRESSION: 1. Monochorionic diamniotic twin 8 weeks 1 day by today's ultrasound. Electronically authenticated by: SAMY MORA Date: 10/16/2023 14:43 Dictated By: Samy Mora M.D. Signed By:10/16/23 1445 DD/ 1443 TD/TT: Shackler: us Rekha Keira DO [facility] Final Result documented in this encounter Visit Diagnoses Not on filedocumented in this encounter Care Teams Foot Press Operator Relationship Specialty Start Date End Date Delfin Galaviz MD [address] [facility] [place] [address] PCP - General Family Medicine 01/23/23 Jo Anderson PA [address] [place] [address] [place] [address] PCP - [facility] 11/24/23 documented as of this encounter
--- OUTSIDE RECORDS SUMMARY | 2025-04-12 14:56 | XMS_ITS | Encounter Summary ---
Author Organization [facility] Address [address] [place] [address] Care Team Providers Care Chemical Engineering Professor Name Role Phone Delfin Galaviz MD Primary Care Provider + Jo Anderson Unavailable Encounter Details Date Type Department Care Team (Late st Contact Info) Description 04/29/2024 Abstract [facility] Henrry OBSALOMÓN [address] [facility] [place] [phone] Julius Crockett DO [address] [facility] [address] [place], [place] [address] Social History Tobacco Use Types Packs/Day Years [...] on filedocumented in this encounter Care Teams Chemical Engineering Professor Relationship Specialty Start Date End Date Delfin Galaviz MD [address] [place] [address] PCP - General Family Medicine 01/23/23 Jo Anderson PA [address] [facility] [address] [place], [place] [address] PCP - [facility] 11/24/23 documented as of this encounter
--- OUTSIDE RECORDS SUMMARY | 2025-04-12 14:56 | XMS_ITS | Encounter Summary ---
Author Organization [facility] Address [address] [place] [address] Care Team Providers Care River Expedition Guide Name Role Phone Delfin Galaviz MD Primary Care Provider [phone] Jo Anderson Unavailable Encounter Details Date Type Department Care Team (Late st Contact Info) Description 02/23/2024 Clinisync Result Encounter NOMS External Department Unsolicited Rekha Crockett, DO 102 [facility] Enio Cintron [place] [phone] Social History Tobacco Use Types Packs/Day Years [...] Date/Time Associated Diagnosis Comments US OB TRANSVAGINAL 02/23/2024 9: 53 AM EDT documented in this encounter Results * US OB TRANSVAGINAL (02/23/2024 9:53 AM EDT) Anatomical Region Laterality Modality Other 02/23/2024 9:53 AM EDT Narrative 02/23/2024 9:55 [place] [address] Ultrasound Report Signed Patient: ROQUE PIERSON MR#: [id number] : 2000 Acct:[id number] Age/Sex: 23 / F ADM Date: 02/23/24 Loc: NOMS Attending Dr: Rekha Crockett D.O. Ordering Physician: Rekha Crockett D.O. Date of Service: 02/23/24 Procedure(s): US OB transvaginal Accession Number(s): [id number] cc: Rekha Crockett D.O.; Delfin Galaviz M.D. [address] [address] Patient Name: ROQUE PIERSON MRN: [id number] date: 2000 Sex: F Assigned Patient Location: [facility] Current Patient Location: [facility] Accession/Order Number: [id number] Exam Date: 02/23/2024 08:53 Report Date: 02/23/2024 09:53 At the request of: REKHA CROCKETT Procedure: US OB transvaginal EXAMINATION: US OB transvaginal HISTORY: MISSED MENSES COMPARISON: No relevant comparison available. FINDINGS: GESTATIONAL SAC: Present and normal appearing. YOLK SAC: Present and normal appearing. POLE: Present and normal appearing. CARDIAC: Present. UTERUS: Normal size and appearance. OVARIES: Right: Not seen. Left: Not seen. CERVIX: 4.3 cm in length and closed. CUL-DE-SAC: Normal. OTHER: None. AGE BY LMP: Unknown LMP BENTON BY LMP: AGE BY US CRL: 8 weeks 5 days BENT[place] BY US CRL: 09/29/2024 US/US OB transvaginal IMPRESSION: 1. Single live intrauterine 8 weeks 5 days by today's ultrasound. Electronically authenticated by: SAMY MORA Date: 02/23/2024 09:53 Dictated By: Samy Mora M.D. Signed By: 02/23/24954 DD/ 2 TD/TT: Motor Vehicle Examiner: Procedure Note Radiology, Radiologist, - 02/23/2024 [place] [address] Ultrasound Report Signed Patient: ROQUE PIERSON MMR#: [id number] : 2000Acct:[id number] Age/Sex: 23 / FADM Date: 02/23/24 Loc: NOMS Attending Dr: Rekha Crockett D.O. Ordering Physician: Rekha Crockett D.O. Date of Service: 02/23/24 Procedure(s): US OB transvaginal Accession Number(s): [id number] cc: Rekha Crockett D.O.; Delfin Galaviz M.D. The [place] [phone] Patient Name: ROQUE PIERSON MRN: [facility]:[id number] date: 2000 Sex: F Assigned Patient Location: [facility] Current Patient Location: [facility] Accession/Order Number: [id number] Exam Date: 02/23/2024 08:53 Report Date: 02/23/2024 09:53 At the request of: REKHA CROCKETT Procedure: US OB transvaginal EXAMINATION: US OB transvaginal HISTORY: MISSED MENSES COMPARISON: No relevant comparison available. FINDINGS: GESTATIONAL SAC: Present and normal appearing. YOLK SAC: Present and normal appearing. POLE: Present and normal appearing. CARDIAC: Present. UTERUS: Normal size and appearance. OVARIES: Right: Not seen. Left: Not seen. CERVIX: 4.3 cm in length and closed. CUL-DE-SAC: Normal. OTHER: None. AGE BY LMP: Unknown LMP BENTON BY LMP: AGE BY US CRL: 8 weeks 5 days BENTON BY US CRL: 09/29/2024 US/US OB transvaginal IMPRESSION: 1. Single live intrauterine 8 weeks 5 days by marie. Electronically authenticated by: SAMY MORA Date: 02/23/2024 09:53 Dictated By: Samy Mora M.D. Signed By:02/23/2455 DD/ TD/TT: Motor Vehicle Examiner: us Rekha Keira DO [facility] Final Result documented in this encounter Visit Diagnoses Not on filedocumented in this encounter Care Teams River Expedition Guide Relationship Specialty Start Date End Date Delfin Galaviz MD [address] [facility] [place] [address] PCP - General Family Medicine 01/23/23 Jo Anderson PA [address] [place] [address] [place] [address] PCP - [facility] 11/24/23 documented as of this encounter
--- OUTSIDE RECORDS SUMMARY | 2025-04-12 14:56 | XMS_ITS | Encounter Summary ---
Author Organization [facility] Address [address] [place] [address] Care Team Providers Care Counselor Dormitory Name Role Phone Delfin Galaviz MD Primary Care Provider + Jo Anderson Unavailable Encounter Details Date Type Department Care Team (Late st Contact Info) Description 09/15/2024 Abstract [facility] Henrry MARTINEZ [address] [facility] [place] [phone] Julius Crockett DO [address] [facility] [address] [place], [place] [phone] Social History Tobacco Use Types Packs/Day Years [...] on filedocumented in this encounter Care Teams Counselor Dormitory Relationship Specialty Start Date End Date Delfin Galaviz MD [address] [place] [address] PCP - General Family Medicine 01/23/23 Jo Anderson PA [address] [facility] [address] [address] [place], [place] [address] PCP - [facility] 11/24/23 documented as of this encounter
--- OUTSIDE RECORDS SUMMARY | 2025-04-12 14:56 | XMS_ITS | Encounter Summary ---
Author Organization [facility] Address [address] [place] [address] Care Team Providers Care Bottle Blower Name Role Phone Delfin Galaviz MD Primary Care Provider [phone] Jo Anderson Unavailable Encounter Details Date Type Department Care Team (Late st Contact Info) Description 04/15/2023 Abstract [facility]ARTINEZ [address] [facility] [place] [phone] Dionne Cannon LPN Social History Tobacco Use Types Packs/Day Years [...] on filedocumented in this encounter Care Teams Bottle Blower Relationship Specialty Start Date End Date Delfin Galaviz MD [address] [place] [address] PCP - General Family Medicine 01/23/23 Jo Anderson PA [address] [place] [address] [facility] 11/24/23 documented as of this encounter
--- OUTSIDE RECORDS SUMMARY | 2025-04-12 14:56 | XMS_ITS | Encounter Summary ---
Author Organization [facility] Address [address] [place] [address] Care Team Providers Care Director Of Resource Development Name Role Phone Delfin Galaviz MD Primary Care Provider + Jo Anderson Unavailable Encounter Details Date Type Department Care Team (Late st Contact Info) Description 03/16/2024 Abstract [facility] Henrry OBGYN [address] [employer] [address] [address] Codi Malik LPN [address] [facility] [employer] [place] [address] Social History Tobacco Use Types [...] in this encounter Care Teams Director Of Resource Development Relationship Specialty Start Date End Date Delfin Galaviz MD [address] [place] [address] PCP - General Family Medicine 01/23/23 Jo Anderson PA [address] [place] [address] Dr [place], [place] [address] PCP - [facility] 11/24/23 documented as of this encounter
--- OUTSIDE RECORDS SUMMARY | 2025-04-12 14:56 | XMS_ITS | Encounter Summary ---
Author Organization [facility] Address [address] [place] [address] Care Team Providers Care Tobacco Packing Machine Operator Name Role Phone Delfin Galaviz MD Primary Care Provider + Jo Anderson Unavailable Encounter Details Date Type Department Care Team (Late st Contact Info) Description 02/03/2024 Abstract [facility] Henrry OBGYN [address] [place] [address] Codi Malik LPN [address] [place] [address] Social History Tobacco Use Types Packs/Day Years Used Date Smoking Tobacco: Never Smokeless Tobacco: Never Alcohol Use Standard Drinks/Week Comments Never 0 (1 standard drink = 0.6 oz pur e alcohol) Comments No Sex and Gender Information Value Date Recorded Sex Assigned at Female 11/06/2023 12:56 PM EDT Legal Sex Female 6:59 PM EDT Gender Identity Female 02/19/2024 4:22 PM EDT Sexual Orientation Straight 02/19/2024 4: 22 PM EDT documented as of this encounter Plan of Treatment Not on file documented as of this encounter Visit Diagnoses Not on filedocumented in this encounter Care Teams Tobacco Packing Machine Operator Relationship Specialty Start Date End Date Delfin Galaviz MD [address] [place] [address] PCP - General Family Medicine 01/23/23 Jo Anderson PA [address] [place] [address] Dr [place], [place] [address] PCP - [facility] 11/24/23 documented as of this encounter
--- OUTSIDE RECORDS SUMMARY | 2025-04-12 14:56 | XMS_ITS | Encounter Summary ---
Author Organization [facility] Address [address] [place] [address] Care Team Providers Care Car Supervisor Name Role Phone Delfin Galaviz MD Primary Care Provider [phone] Jo Anderson Unavailable Encounter Details Date Type Department Care Team (Late st Contact Info) Description 11/13/2023 Clinisync Result Encounter [facility] External Department Unsolicited Rekha Crockett, DO 102 [facility] Enio Cintron [place] [phone] Social History Tobacco Use Types Packs/Day Years [...] Date/Time Associated Diagnosis Comments US OB TRANSVAGINAL 11/13/2023 3: 02 PM EDT documented in this encounter Results * US OB TRANSVAGINAL (11/13/2023 3:02 PM EDT) Anatomical Region Laterality Modality Other 11/13/2023 3:02 PM EDT Narrative 11/13/2023 3:04 PM EDT [address] [address] Ultrasound Report Signed Patient: ROQUE PIERSON MR#: [id number] : 2000 Acct:[id number] Age/Sex: 23 / F ADM Date: 11/13/23 Loc: US Attending Dr: Rekha Crockett D.O. Ordering Physician: Rekha Crockett D.O. Date of Service: 11/13/23 Procedure(s): US OB transvaginal Accession Number(s): [id number] cc: Rekha Crockett D.O.; Delfin Galaviz M.D. [address] [address] Patient Name: ROQUE PIERSON MRN: [id number] date: 2000 Sex: F Assigned Patient Location: US Current Patient Location: US Accession/Order Number: [id number] Exam Date: 11/13/2023 12:00 Report Date: 11/13/2023 15:02 At the request of: REKHA CROCKETT Procedure: US OB transvaginal EXAMINATION: US OB transvaginal HISTORY: NO HEART TONES. VIABILITY COMPARISON: Ultrasound OB transvaginal 10/16/2023 FINDINGS: GESTATIONAL SAC: Present and normal appearing. X2 YOLK SAC: Present and normal appearing. X2 POLE: Present and normal appearing. X2 CARDIAC: Absent. X2 UTERUS: Normal size and appearance. OVARIES: Right: Normal. Left: Normal. CERVIX: cm in length and closed. CUL-DE-SAC: Normal. OTHER: None. AGE BY LMP: 12 weeks 3 days BENTON BY LMP: 05/24/2024 AGE BY US CRL: 9 weeks 0 days (x2) B[place] BY US CRL: 06/17/2024 (x2) US/US OB transvaginal IMPRESSION: 1. Twin intrauterine both measuring 9 weeks 0 days by today's ultrasound. 2. Neither fetus has an active heartbeat at this time but did previously demonstrate heartbeats on 10/16/2023. Findings compatible with demise. Electronically authenticated by: SAMY MORA Date: 11/13/2023 15:02 Dictated By: Samy Mora M.D. Signed By: 11/13/23 1504 DD/ 1502 TD/TT: Handstitching Machine Collar Feller: Procedure Note Radiology, Radiologist, - 11/13/2023 [place] [address] Ultrasound Report Signed Patient: ROQUE PIERSON MMR#: [id number] : 2000Acct:[id number] Age/Sex: Date: 11/13/23 Loc: US Attending Dr: Rekha Crockett D.O. Ordering Physician: Rekha Crockett D.O. Date of Service: 11/13/23 Procedure(s): US OB transvaginal Accession Number(s): [id number] cc: Rekha Crockett D.O.; Delfin Galaviz M.D. The [place] [address] Patient Name: ROQUE PIERSON MRN: [id number] date: 2000 Sex: F Assigned Patient Location: US Current Patient Location: US Accession/Order Number: [id number] Exam Date: 11/13/2023 12:00 Report Date: 11/13/2023 15:02 At the request of: REKHA CROCKETT Procedure: US OB transvaginal EXAMINATION: US OB transvaginal HISTORY: NO HEART TONES. VIABILITY COMPARISON: Ultrasound OB transvaginal 10/16/2023 FINDINGS: GESTATIONAL SAC: Present and normal appearing. X2 YOLK SAC: Present and normal appearing. X2 POLE: Present and normal appearing. X2 CARDIAC: Absent. X2 UTERUS: Normal size and appearance. OVARIES: Right: Normal. Left: Normal. CERVIX: cm in length and closed. CUL-DE-SAC: Normal. OTHER: None. AGE BY LMP: 12 weeks 3 days BENTON BY LMP: 05/24/2024 AGE BY US CRL: 9 weeks 0 days (x2) [place] BY US CRL: 06/17/2024 (x2) US/US OB transvaginal IMPRESSION: 1. Twin intrauterine both measuring 9 weeks 0 days by today's ultrasound. 2. Neither fetus has an active heartbeat at this time but did previously demonstrate heartbeats on 10/16/2023. Findings compatible with fetaldemise. Electronically authenticated by: SAMY MORA Date: 11/13/2023 15:02 Dictated By: Samy Mora M.D. Signed By:11/13/23 1504 DD/ 1502 TD/TT: Handstitching Machine Collar Feller: us Rekha Keira DO [facility] Final Result documented in this encounter Visit Diagnoses Not on filedocumented in this encounter Care Teams Car Supervisor Relationship Specialty Start Date End Date Delfin Galaviz MD [address] [facility] [place] [address] PCP - General Family Medicine 01/23/23 Jo Anderson PA [address] [place] [address] [place] [address] PCP - [facility] 11/24/23 documented as of this encounter
--- OUTSIDE RECORDS SUMMARY | 2025-04-12 14:56 | XMS_ITS | Encounter Summary ---
Author Organization [facility] Address [address] [place] [address] Care Team Providers Care Basting Marker Name Role Phone Delfin Galaviz MD Primary Care Provider + Jo Anderson Unavailable Encounter Details Date Type Department Care Team (Late st Contact Info) Description 02/12/2023 Abstract [facility] Henrry OBSALOMÓN [address] [place] [phone] Julius Crockett DO [address] [facility] [address] [place], [place] [phone] Social History Tobacco Use Types Packs/Day Years Used Date Smoking Tobacco: Never Alcohol Use Standard Drinks/Week Comments [...] on filedocumented in this encounter Care Teams Basting Marker Relationship Specialty Start Date End Date Delfin Galaviz MD [address] [place] [address] PCP - General Family Medicine 01/23/23 Jo Anderson PA [address] [place] [address] Dr Galvezue, [facility]11 [facility] - [facility] 11/24/23 documented as of this encounter
--- OUTSIDE RECORDS SUMMARY | 2025-04-12 14:56 | XMS_ITS | Encounter Summary ---
Author Organization [facility] Address [address] [place] [address] Care Team Providers Care Fresco Artist Name Role Phone Delfin Galaviz MD Primary Care Provider + Jo Anderson Unavailable Encounter Details Date Type Department Care Team (Late st Contact Info) Description 09/26/2024 Abstract [facility] Henrry MARTINEZ [address] [facility] [place] [phone] Julius Crockett DO [address] [facility] [address] [place], [place] [phone] Social History Tobacco Use Types Packs/Day Years [...] on filedocumented in this encounter Care Teams Fresco Artist Relationship Specialty Start Date End Date Delfin Galaviz MD [address] [place] [address] PCP - General Family Medicine 01/23/23 Jo Anderson PA [address] [facility] [address] [place], [place] [address] PCP - [facility] 11/24/23 documented as of this encounter
--- OUTSIDE RECORDS SUMMARY | 2025-04-12 14:56 | XMS_ITS | Encounter Summary ---
Author Organization [facility] Address [address] [place] [address] Care Team Providers Care Energy Director Name Role Phone Delfin Galaviz MD Primary Care Provider + Jo Anderson Unavailable Encounter Details Date Type Department Care Team (Late st Contact Info) Description 11/03/2024 Abstract [facility] Henrry MARTINEZ [address] [facility] [place] [phone] Julius Crockett DO [address] [facility] [address] [place], [place] [phone] Social History Tobacco Use Types Packs/Day Years [...] on filedocumented in this encounter Care Teams Energy Director Relationship Specialty Start Date End Date Delfin Galaviz MD [address] [place] [address] PCP - General Family Medicine 01/23/23 Jo Anderson PA [address] [facility] [address] [place], [place] [address] PCP - [facility] 11/24/23 documented as of this encounter
--- OUTSIDE RECORDS SUMMARY | 2025-04-12 14:56 | XMS_ITS | Encounter Summary ---
Author Organization [facility] Address [address] [place] [address] Care Team Providers Care Courtroom Deputy Or Calendar Clerk Name Role Phone Delfin Galaviz MD Primary Care Provider [phone] Jo Anderson Unavailable Encounter Details Date Type Department Care Team (Late st Contact Info) Description 11/17/2023 Clinisync Result Encounter [facility] External Department Unsolicited Rekha Crockett, DO 102 [facility] Enio Cintron [place] [phone] Social History Tobacco Use Types Packs/Day Years [...] Name Priority Date/Time Associated Diagnosis Comments US PELVIS 11/17/2023 7:11 AM EDT documented in this encounter Results * US PELVIS (11/17/2023 7:11 AM EDT) Anatomical Region Laterality Modality Other 11/17/2023 7:11 AM EDT Narrative 11/17/2023 7:13 [place] [address] Ultrasound Report Signed Patient: ROQUE PIERSON MR#: [id number] : 2000 Acct:[id number] Age/Sex: 23 / F ADM Date: 11/14/23 Loc: SURGOUT Attending Dr: Rekha Crockett D.O. Ordering Physician: Rekha Crockett D.O. Date of Service: 11/14/23 Procedure(s): US pelvis Accession Number(s): [id number] cc: Rekha Crockett D.O.; Delfin Galaviz M.D. The [place] [id number] Patient Name: ROQUE PIERSON MRN: [id number] date: 2000 Sex: F Assigned Patient Location: [facility] Current Patient Location: Accession/Order Number: [id number] Exam Date: 11/14/2023 14:41 Report Date: 11/17/2023 07:11 At the request of: REKHA CROCKETT Procedure: US pelvis EXAMINATION: US pelvis HISTORY: miscarriage COMPARISON: 11/13/2023 FINDINGS: Uterus is prominent in size, heterogeneous in echotexture with no focal mass. No intrauterine is observed. Mild heterogeneous endometrium having both soft tissue and fluid components. Color-flow was not utilized. US/US pelvis IMPRESSION: Limited exam without color flow No intrauterine gestation identified Electronically authenticated by: ALFRED BERGERON Date: 11/17/2023 07:11 Dictated By: Alfred Bergeron M.D. Signed By: 11/17/23 0713 DD/ 0711 TD/TT: Joist Setter: Procedure Note Radiology, Radiologist, MD - 11/17/2023 The [place] [id number] Ultrasound Report Signed Patient: ROQUE PIERSON MMR#: [id number] : 2000Acct:[id number] Age/Sex: 23 / FADM Date: 11/14/23 Loc: SURGOUT Attending Dr: Rekha Crockett D.O. Ordering Physician: Rekha Crockett D.O. Date of Service: 11/14/23 Procedure(s): US pelvis Accession Number(s): [id number] cc: Rekha Crockett D.O.; Delfin Galaviz M.D. The [address] [id number] Patient Name: ROQUE PIERSON MRN: [id number] date: 2000 Sex: F Assigned Patient Location: [facility] Current Patient Location: Accession/Order Number: [id number] Exam Date: 11/14/2023 14:41 Report Date: 11/17/2023 07:11 At the request of: REKHA CROCKETT Procedure: US pelvis EXAMINATION: US pelvis HISTORY: miscarriage COMPARISON: 11/13/2023 FINDINGS: Uterus is prominent in size, heterogeneous in echotexture with no focalmass. No intrauterine is observed. Mild heterogeneous endometriumhaving both soft tissue and fluid components. Color-flow was not utilized. US/US pelvis IMPRESSION: Limited exam without color flow No intrauterine gestation identified Electronically authenticated by: ALFRED BERGERON Date: 11/17/2023 07:11 Dictated By: Alfred Bergeron M.D. Signed By:11/17/2313 DD/ 0 TD/TT: Joist Setter: us Rekha Crockett DO [facility] Final Result documented in this encounter Visit Diagnoses Not on filedocumented in this encounter Care Teams Courtroom Deputy Or Calendar Clerk Relationship Specialty Start Date End Date Delfin Galaviz MD [address] [facility] [place] [address] PCP - General Family Medicine 01/23/23 Jo Anderson PA [address] [place] [address] [place] [address] PCP - [facility] 11/24/23 documented as of this encounter
--- OUTSIDE RECORDS SUMMARY | 2025-04-12 14:56 | XMS_ITS | Encounter Summary ---
Author Organization [facility] Address [address] [place] [address] Care Team Providers Care Information Technology Auditor Name Role Phone Delfin Galaviz MD Primary Care Provider + Jo Anderson Unavailable Encounter Details Date Type Department Care Team (Late st Contact Info) Description 02/08/2023 Abstract KAM[facility] MARTINEZ [address] [facility] [place] [phone] Jo Anderson PA [address] [facility] [address] [place], [facility] Social History Tobacco Use Types Packs/Day Years Used Date Smoking Tobacco: Never Tobacco Cessation:Counseling Given: Not Answered [...] on filedocumented in this encounter Care Teams Information Technology Auditor Relationship Specialty Start Date End Date Delfin Galaivz MD [address] [facility] [place] [address] PCP - General Family Medicine 01/23/23 Jo Anderson PA [address] [place] [address] Dr [place], [facility] PCP - [facility] 11/24/23 documented as of this encounter
--- OUTSIDE RECORDS SUMMARY | 2025-04-12 14:56 | XMS_ITS | Clinical Summary ---
Author Organization [facility] Address [address] [facility], [address] [place] [address] Care Team Providers Care Recording Artist Name Role Phone Delfin Galaviz MD Primary Care Provider [phone] Allergies No known active allergies Medications cephALEXin (KEFLEX) 500 MG capsule Take 1 capsule by mouth 2 times daily 14 capsule Active Additional Information Patient not taking.Reported on 02/01/2024 Active Problems No known active problems Social History Tobacco Use Types Packs/Day Years Used Date Smoking Tobacco: Never Smokeless Tobacco: Never Tobacco Cessation:Counseling Given: Not Answered Alcohol Use Standard Drinks/Week Comments No 0 (1 standard drink = 0.6 oz pur e alcohol) AUDIT-C Answer Date Recorded Q1: How often do you have a drink containing alcohol? Never 02/01/2024 Q2: How many drinks containi ng alcohol do you have on a typical day when you are drinking? Patient does not drink Q3: How often do you have si x or more drinks on one occasion? Never 02/01/2024 Interpersonal Safety Domain Source: IP Abuse Scr eening Answer Date Recorded Physical abuse Denies 02/01/2024 Verbal abuse Denies 02/01/2024 Emotional abuse Denies 02/01/2024 Financial abuse Denies 02/01/2024 Sexual abuse Denies 02/01/2024 Comments Unknown Sex and Gender Information Value Date Recorded Sex Assigned at Not on file Legal Sex Female 8:44 PM EDT Gender Identity Not on file Sexual Orientation Not on file Last Filed Vital Signs Vital Sign Reading Time Taken Comments Blood Pressure 128/68 02/01/2024 3:27 PM EDT Pulse 94 02/01/2024 3:27 PM EDT Temperature 36.6 C (97.9 F) 02/01/2024 3:27 PM EDT Respiratory Rate 18 02/01/2024 3:27 PM EDT Oxygen Saturation 99% 02/01/2024 3:27 PM EDT Inhaled Oxygen Concentration - - Weight 79.4 kg (175 lb) 02/01/2024 3:27 PM EDT Height 167.6 cm (5' 6 ) 02/01/2024 3:27 PM EDT Body Mass Index 28.25 02/01/2024 3:27 PM EDT Plan of Treatment Health Maintenance Due Date Last Done Comments Depression Screen 2013 HIV screen 2016 Chlamydia/GC screen 2017 Hepatitis C screen 2019 Meningococcal B vaccine (3 o f 3 - Trumenba SCDM 3-Dose Series) 10/02/2019 05/06/2019, 04/01/2019 Pap smear 2022 COVID-19 Vaccine (1 - 2023-2 5 season) 2024 Flu vaccine (#1) 03/25/2025 08/29/2009, , 07/29/2005 DTaP/Tdap/Td vaccine (7 - Td or Tdap) 04/18/2033 04/18/2023, 03/18/2014, 02/15/2003, Additional history exists Hepatitis B vaccine Completed 01/11/2002, 2001, 2001 Hib vaccine Completed 02/15/2003, 12/24, 2001, Additional history exists Pneumococcal 0-49 years Vaccine Completed 02/15/2003, 09/09/2002, 2001, Additional history exists Polio vaccine Completed 03/18/2014, 12/24, 2001, Additional history exists Varicella vaccine Completed 03/18/2014, 05/16/2004 Hepatitis A vaccine Completed 07/25/2016, 4 Meningococcal (ACWY) vaccine Completed 04/01/2019, 07/25/2016 HPV vaccine Completed 10/14/2019, 04/25, 04/01/2019 Insurance Member Subscriber Plan / Payer (Ef fective 2017-Present) Name:Alfreda Blanco Relation to Subscriber:Self Name:Alfreda Blanco Payer ID:[id number] (NAIC) Group ID:Not on file Type:Not on file Address: [address] [place] [id number] PLAN Care Teams Recording Artist Relationship Specialty Start Date End Date Delfin Galaviz MD [address] [place] [address] PCP - General Family Medicine 02/08/22
== END 2025-04-23 23:59 | disposition home or self-care (01) ==
LOC: LAB 14:50
PROVIDERS: PCP Family Medicine; Visit Provider Obstetrics & Gynecology
DX: N92.6 Irregular menstruation, unspecified (principal); Z32.01 Encounter for pregnancy test, result positive
CPT/HCPCS: 36415; 84443; 84702